=== PATIENT | female | born 1945 | race Two or more races ===

== ENCOUNTER 2020-08-11 12:09 | Emergency (ER) | payer MEDICARE, MEDICAID, SELFPAY ==
--- NOTE | 2020-08-11 | CT_ITS ---
EXAMINATION: CT ABDOMEN AND PELVIS WITHOUT CONTRAST CLINICAL INFORMATION: Right-sided flank pain. History of kidney stones. COMPARISON: October 23, 2019 TECHNIQUE: Multidetector volumetric imaging was performed from the superior aspect of the liver through the pubic symphysis. Sagittal and coronal reformatted images were obtained on the technologist's workstation. This CT examination was performed using dose optimization techniques as appropriate, variously including the following: *Automated exposure control *Adjustment of mA and/or kV according to patient size (this includes techniques or standardized protocols for targeted exams where dose is matched to indication/reason for exam; i.e. extremities or head) *Use of iterative reconstruction technique DLP: 833 mGy-cm FINDINGS: LUNG BASES: The visualized lung bases are unremarkable. No pleural or pericardial effusion. Small amount of coronary artery calcification present. LIVER, GALLBLADDER, AND BILIARY TREE: The liver is normal in size, shape, and attenuation. No focal hepatic lesion or biliary ductal dilatation is present. The gallbladder is unremarkable with no evidence of radiopaque gallstones, gallbladder wall thickening, or obvious pericholecystic inflammatory changes. PANCREAS: Unremarkable. SPLEEN: Unremarkable. ADRENAL GLANDS: Unremarkable. KIDNEYS AND URETERS: Left kidney: There is a large 9.4 x 8.7 cm cyst containing some calcification within its rim and septi. There is also a 3.8 x 3.2 cm cyst about the anterior medial aspect of the kidney. No hydronephrosis is evident. No definite solid mass is seen. There is cortical atrophy present most prominent in the lower pole where there are 2 regions of calcification, one measuring 1.1 x 0.8 cm in size and a second measuring 7 mm in largest dimension. Ureter appears unremarkable. Right kidney: No abnormal mass, calculi, or hydronephrosis noted. Ureter appears unremarkable. BLADDER: Unremarkable. GASTROINTESTINAL TRACT: No dilated loops of large or small bowel are evident. No free air or free fluid is seen. No pericolonic inflammatory change. The appendix is visualized and appears unremarkable. There is a duodenal diverticulum present. ABDOMINAL WALL: No significant hernia is appreciated. LYMPH NODES: No lymphadenopathy appreciated. VASCULAR: Mild aortoiliac calcified plaque present. No abdominal aortic aneurysm. PELVIC VISCERA: Unremarkable. OSSEOUS STRUCTURES: No suspicious destructive bony lesions identified. There is multilevel degenerative disc disease present as well as facet arthropathy L4-S1 bilaterally. IMPRESSION: No evidence of obstructive uropathy. Left renal nonobstructing calculi. Left renal cysts one of which has wall calcification. This has the appearance of a Bosniak 2F cyst.
[2020-08-11 12:18] VITALS: BP 159/77; PULSE 55; RESP 16; TEMP 36.8; O2SAT 96; BMI 40.2
--- NOTE | 2020-08-11 12:21 | ED.ABDPAIN ---
HPI - Abdominal Pain General Chief Complaint: Abdominal Pain <CLAIRE Oreilly - Last Filed: 08/11/20 18:17> Stated Complaint: ABD PAIN <CLAIRE Oreilly - Last Filed: 08/11/20 18:17> Time Seen by Provider: 08/11/20 12:20 <CLAIRE Oreilly - Last Filed: 08/11/20 18:17> Source: patient and EMS <CLAIRE Oreilly - Last Filed: 08/11/20 18:17> Mode of arrival: EMS <CLAIRE Oreilly - Last Filed: 08/11/20 18:17> Limitations: language barrier <CLAIRE Oreilly - Last Filed: 08/11/20 18:17> History of Present Illness HPI narrative: 75 y/o female with history of ETOH abuse, pyelonephritis with infected kidney stone requiring lithotripsy, atrial fibrillation, asthma, gastritis, depression, hx falls, arthritis presenting with 5 days of right sided flank pain that extends into her entire abdomen. <CLAIRE Oreilly - Last Filed: 08/11/20 18:17> MD elicited complaint: abdominal pain and flank pain <CLAIRE Oreilly - Last Filed: 08/11/20 18:17> Pertinent past history: gastritis, kidney stones and past UTI <CLAIRE Oreilly - Last Filed: 08/11/20 18:17> Onset (ago): day(s) (5) <CLAIRE Oreilly - Last Filed: 08/11/20 18:17> Pain Consistency: constant <CLAIRE Oreilly - Last Filed: 08/11/20 18:17> Location: diffuse <CLAIRE Oreilly - Last Filed: 08/11/20 18:17> Severity: severe <CLAIRE Oreilly - Last Filed: 08/11/20 18:17> Quality: stabbing <CLAIRE Oreilly - Last Filed: 08/11/20 18:17> Radiation: R flank and back <CLAIRE Oreilly - Last Filed: 08/11/20 18:17> Migration to: RUQ and epigastric <CLAIRE Oreilly - Last Filed: 08/11/20 18:17> Exacerbating factors: nothing <CLAIRE Oreilly Last Filed: 08/11/20 18:17> Relieving factors: nothing <CLAIRE Oreilly Last Filed: 08/11/20 18:17> Associated symptoms: nausea and dysuria <CLAIRE Oreilly Last Filed: 08/11/20 18:17> Related Data Home Medications: Previous Rx's Medication Instructions Recorded cyclobenzaprine 5 mg PO BID PRN #14 tab 08/11/20 cyclobenzaprine 5 mg PO TID PRN #14 tab 08/11/20 lidocaine [Lidoderm] 1 patch TOPICAL DAILY #1 ea 08/11/20 lidocaine [Lidoderm] 1 patch TOPICAL DAILY #1 ea 08/11/20 sucralfate [Carafate] 1 g PO BID #30 tab 08/11/20 sucralfate [Carafate] 1 g PO BID #30 tab 08/11/20 <CLAIRE Oreilly Last Filed: 08/11/20 18:17> Allergies/Adverse Reactions: Allergies Allergy/AdvReac Type Severity Reaction Status Date / Time montelukast [Singulair] Allergy Unknown itching/marysol Verified 04/09/20 00:00 h From Singulair Allergy Intermediate RASH Uncoded 07/26/20 14:38 <CLAIRE Oreilly - Last Filed: 08/11/20 18:17> Review of Systems Review of Systems Constitutional: No Fever, No Chills ENT/Mouth: No sore throat, No Rhinorrhea, No Swallowing Difficulty Eyes: No Eye Pain, No Swelling, No Redness Cardiovascular: No Chest Pain, positive intermittent SOB chronic, No Orthopnea, Positive Edema which is chronic Respiratory: No Cough, No Sputum, No Wheezing, positive dyspnea Gastrointestinal: No Vomiting, No Diarrhea, positive abdominal Pain, No Hematochezia, No Melena Genitourinary: positive Dysuria, No Urinary Frequency, No Hematuria, positive pelvic pain Musculoskeletal: No joint pain, positive back pain Skin: No Skin Lesions, No rash Neuro: No Weakness, No Numbness, No Dizziness, No Headache Psych: No Anxiety/Panic, No Depression Heme/Lymph: No Bruising, No Lymphadenopathy Endocrine: No Polyuria, No Polydipsia All other 10 point ROS are negative. <CLAIRE Oreilly - Last Filed: 08/11/20 18:17> Physical Exam Vital Signs and I&O and Narrative: Vital Signs and I&O: Vital Signs Temp 98.2 F 08/11/20 16:57 Pulse 81 08/11/20 16:57 Resp 20 08/11/20 16:57 BP 153/66 H 08/11/20 16:57 Pulse Ox 99 08/11/20 16:57 Intake & Output 08/11/20 08/11/20 08/12/20 06:59 18:59 06:59 Intake Total 1000 / 1000 Balance 1000 / 1000 Weight 99.798 kg Intake: Intake, IV Amoun t 1000 / 1000 0.9 % Sodium C hloride 1,000 ml 1000 / 1000 @ 999 mls/hr I VCONT .Q1H1M GONZALEZ Rx#:[id number] Body Mass Index 40.2 Appearance: Alert. Oriented X3. No acute distress. Eyes: Pupils equal, round and reactive to light. ENT: Pharynx normal. Neck: Normal inspection. Neck supple. CVS: bradycardic. Pulses normal. Respiratory: No respiratory distress. Breath sounds normal. Abdomen: obese, soft, intermittent tenderness diffusely, right CVA tenderness Skin: Skin warm and dry. Normal skin color. Normal skin turgor. Extremities: 1+ lower extremity edema, diffusely tender, no lesions Neuro: Oriented X 3. No motor deficit. No sensory deficit. <CLAIRE Oreilly - Last Filed: 08/11/20 18:17> Vital Signs and I&O: Vital Signs Temp 98.2 F 08/11/20 16:57 Pulse 81 08/11/20 16:57 Resp 20 08/11/20 16:57 BP 153/66 H 08/11/20 16:57 Pulse Ox 99 08/11/20 16:57 Intake & Output 08/11/20 08/11/20 08/12/20 06:59 18:59 06:59 Intake Total 1000 / 1000 Balance 1000 / 1000 Weight 99.798 kg Intake: Intake, IV Amoun t 1000 / 1000 0.9 % Sodium C hloride 1,000 ml 1000 / 1000 @ 999 mls/hr I VCONT .Q1H1M GONZALEZ Rx#:[id number] Body Mass Index 40.2 <Angel Desir DO - Last Filed: 08/11/20 22:19> Course Course Hospital Course: 75 y/o with multiple comorbidities presenting with multiple complaints - concern for possible renal colic, UTI, gastritis, cholecystitis, pancreatitis. Labs and CT scan pending. Dispo pending results and improvement. <CLAIRE Oreilly - Last Filed: 08/11/20 18:17> Reevaluation(s) Reevaluation #1: CT did not show any cause of her right flank and abdominal pain. She was given GI cocktail with some improvement in her discomfort. she has a history of gastritis. her flank pain is reproducible and likely muscoloskeletal in nature. she is tolerating PO and appears well. she is stable for discharge. <CLAIRE Oreilly - Last Filed: 08/11/20 18:17> MDM - Abdominal Pain Differential Diagnosis Differential diagnosis: Likely abdominal pain, calculus of kidney, constipation, diverticulitis, gastroenteritis, gastritis, pancreatitis, peptic ulcer disease, renal colic and small bowel obstruction <CLAIRE Oreilly - Last Filed: 08/11/20 18:17> Medical Records Attestation: I reviewed the patient's medical records. <CLAIRE Oreilly - Last Filed: 08/11/20 18:17> Lab Data Attestation: I reviewed the patient's lab results. <CLAIRE Oreilly - Last Filed: 08/11/20 18:17> Result diagrams: : 08/11/20 14:24 08/11/20 14:24 <CLAIRE Oreilly - Last Filed: 08/11/20 18:17> Labs: Lab Results 08/11/20 08/11/20 08/11/20 Range/Units 14:24 14:24 15:44 WBC 8.0 (4.8-10.8) X10*3/uL RBC 4.15 L (4.20-5.50) X10*6/uL Hgb 12.1 (12.0-16.0) g/dl Hct 37.6 (37-47) % MCV 90.6 (80-98) fL MCH 29.2 (27.0-33.0) pg MCHC 32.2 (31.0-35.0) g/dl RDW 12.6 (11.0-16.0) % Plt Count 288 (160-400) X10*3/uL MPV 10.5 (9.4-12.3) fL Immature Gran % (Auto) 0.2 (0.0-0.4) % Neut % (Auto) 72.5 (45-73) % Lymph % (Auto) 15.6 L (20-40) % [place] % (Auto) 7.5 (2-11) % Eos % (Auto) 3.6 (0-4) % Baso % (Auto) 0.6 (0-2) % Neut # (Auto) 5.8 (2.0-8.3) X10*3/uL Lymph # (Auto) 1.3 (1.2-4.9) X10*3/uL [place] # (Auto) 0.6 (0.1-1.2) X10*3/uL Eos # (Auto) 0.3 (0.0-0.4) X10*3/uL Baso # (Auto) 0.1 (0.0-0.2) X10*3/uL Abs Immat Gran (auto) 0.02 (0.00-0.03) X10*3/uL Absolute Nucleated RBC 0.000 (0.0-0.012) X10*3/uL Nucleated RBC % (auto) 0.0 (0.0-0.2) /100WBC Sodium 141 (135-145) mmol/L Potassium 4.1 (3.3-5.1) mmol/l Chloride 102 (96-108) mmol/L Carbon Dioxide 28 (22-29) mmol/L Anion Gap 15 (12-20) BUN 26 H (9-16) mg/dL Creatinine 0.94 (0.5-1.4) mg/dL Estim Creat Clear Calc 56.2 Estimated GFR 58 Random Glucose 166 H (60-115) mg/dL Calcium 9.7 (8.4-10.2) mg/dL Total Bilirubin 0.5 (0.0-1.0) mg/dL Direct Bilirubin 0.2 (0.0-0.5) mg/dL AST 14 (5-31) U/L ALT 14 (0-31) U/L Alkaline Phosphatase 133 H (39-117) U/L Total Protein 7.3 (6.5-8.0) g/dL Albumin 4.4 (3.5-5.0) g/dL Lipase 25 (8-78) U/L Urine Color YELLOW Urine Appearance CLEAR Urine pH 7.0 (5.0-8.0) Ur Specific [place] 1.010 (1.005-1.025) Urine Protein NEG (NEG-TRACE) MG/DL Urine Glucose (UA) NEG (NEG) MG/DL Urine Ketones NEG (NEG) MG/DL Urine Blood 1+ H (NEG) Urine Nitrite NEG (NEG) Ur Leukocyte Esterase TRACE H (NEG) Urine RBC 1-4 (0) /HPF Urine WBC 5-9 H (0-4) /HPF Ur Squamous Epith Cells 4+ /LPF Urine Bacteria NONE /LPF <CLAIRE Oreilly - Last Filed: 08/11/20 18:17> Lab Results 08/11/20 08/11/20 08/11/20 Range/Units 14:24 14:24 15:44 WBC 8.0 (4.8-10.8) X10*3/uL RBC 4.15 L (4.20-5.50) X10*6/uL Hgb 12.1 (12.0-16.0) g/dl Hct 37.6 (37-47) % MCV 90.6 (80-98) fL MCH 29.2 (27.0-33.0) pg MCHC 32.2 (31.0-35.0) g/dl RDW 12.6 (11.0-16.0) % Plt Count 288 (160-400) X10*3/uL MPV 10.5 (9.4-12.3) fL Immature Gran % (Auto) 0.2 (0.0-0.4) % Neut % (Auto) 72.5 (45-73) % Lymph % (Auto) 15.6 L (20-40) % [place] % (Auto) 7.5 (2-11) % Eos % (Auto) 3.6 (0-4) % Baso % (Auto) 0.6 (0-2) % Neut # (Auto) 5.8 (2.0-8.3) X10*3/uL Lymph # (Auto) 1.3 (1.2-4.9) X10*3/uL [place] # (Auto) 0.6 (0.1-1.2) X10*3/uL Eos # (Auto) 0.3 (0.0-0.4) X10*3/uL Baso # (Auto) 0.1 (0.0-0.2) X10*3/uL Abs Immat Gran (auto) 0.02 (0.00-0.03) X10*3/uL Absolute Nucleated RBC 0.000 (0.0-0.012) X10*3/uL Nucleated RBC % (auto) 0.0 (0.0-0.2) /100WBC Sodium 141 (135-145) mmol/L Potassium 4.1 (3.3-5.1) mmol/l Chloride 102 (96-108) mmol/L Carbon Dioxide 28 (22-29) mmol/L Anion Gap 15 (12-20) BUN 26 H (9-16) mg/dL Creatinine 0.94 (0.5-1.4) mg/dL Estim Creat Clear Calc 56.2 Estimated GFR 58 Random Glucose 166 H (60-115) mg/dL Calcium 9.7 (8.4-10.2) mg/dL Total Bilirubin 0.5 (0.0-1.0) mg/dL Direct Bilirubin 0.2 (0.0-0.5) mg/dL AST 14 (5-31) U/L ALT 14 (0-31) U/L Alkaline Phosphatase 133 H (39-117) U/L Total Protein 7.3 (6.5-8.0) g/dL Albumin 4.4 (3.5-5.0) g/dL Lipase 25 (8-78) U/L Urine Color YELLOW Urine Appearance CLEAR Urine pH 7.0 (5.0-8.0) Ur Specific [place] 1.010 (1.005-1.025) Urine Protein NEG (NEG-TRACE) MG/DL Urine Glucose (UA) NEG (NEG) MG/DL Urine Ketones NEG (NEG) MG/DL Urine Blood 1+ H (NEG) Urine Nitrite NEG (NEG) Ur Leukocyte Esterase TRACE H (NEG) Urine RBC 1-4 (0) /HPF Urine WBC 5-9 H (0-4) /HPF Ur Squamous Epith Cells 4+ /LPF Urine Bacteria NONE /LPF <Angel Desir DO - Last Filed: 08/11/20 22:19> Imaging Data CT scan - abdomen: Attestation: I personally reviewed and interpreted this imaging study as follows: <CLAIRE Oreilly - Last Filed: 08/11/20 18:17> Radiologist's impression: No evidence of obstructive uropathy. Left renal non-obstructing calculi. Left renal cysts one of which has wall calcification. This has the appearance of a Bosniak 2F cyst. <CLAIRE Oreilly - Last Filed: 08/11/20 18:17> Discharge Plan Discharge Clinical Impression: Gastritis Qualifiers: Gastritis type: unspecified gastritis Chronicity: unspecified Gastritis bleeding: without bleeding Qualified Code(s): K29.70 - Gastritis, unspecified, without bleeding Thoracic back pain Qualifiers: Chronicity: acute Back pain laterality: right Qualified Code(s): M54.6 - Pain in thoracic spine <CLAIRE Oreilly Last Filed: 08/11/20 18:17> Patient Disposition: Home, Self-Care <CLAIRE Oreilly Last Filed: 08/11/20 18:17> Instructions: Gastritis (ED), Diet for Stomach Ulcers and Gastritis (ED), Back Pain (ED) <CLAIRE Oreilly - Last Filed: 08/11/20 18:17> Additional Instructions: No heavy liftin, twisting or bending. Take over the counter Tylenol and Motrin for discomfort/pain. Use ice and/or heat to your back several times per day. If your symptoms dont improve or if you feel worse, call 911 or come back to the ER for further evaluation. Follow up with your Primary Care Doctor this week. <CLAIRE Oreilly Last Filed: 08/11/20 18:17> Prescriptions: New sucralfate [Carafate] 1 gram tablet 1 g PO BID Qty: 30 RF: 0 cyclobenzaprine 5 mg tablet 5 mg PO BID PRN (Reason: muscle spasm) Qty: 14 RF: 0 lidocaine [Lidoderm] 5 % adhesive patch,medicated 1 patch topical DAILY Qty: 1 RF: 0 lidocaine [Lidoderm] 5 % adhesive patch,medicated 1 patch topical DAILY Qty: 1 RF: 0 cyclobenzaprine 5 mg tablet 5 mg PO TID PRN (Reason: muscle spasm) Qty: 14 RF: 0 sucralfate [Carafate] 1 gram tablet 1 g PO BID Qty: 30 RF: 0 <CLAIRE Oreilly - Last Filed: 08/11/20 18:17> Referrals: Omar Almanzar MD [Physician] - 2 days <CLAIRE Oreilly - Last Filed: 08/11/20 18:17> Interventions: ED Discharge Assessment Last Done: 08/11/20 18:29 <CLAIRE Oreilly - Last Filed: 08/11/20 18:17> Discharge Date/Time: 08/11/20 18:31 <CLAIRE Oreilly - Last Filed: 08/11/20 18:17> [facility] Past Medical History Attestation statement: The following information was validated with the patient. <CLAIRE Oreilly - Last Filed: 08/11/20 18:17> Medical History: Medical History (Updated 08/11/20 @ 17:41 by CLAIRE Oreilly) Alcohol abuse Arthritis Asthma Atrial fibrillation Diabetes Gout Hypertension Hypertension Knee arthropathy Nephrolithiasis Osteoarthritis <CLAIRE Oreilly - Last Filed: 08/11/20 18:17> Surgical History: Surgical History (Updated 08/11/20 @ 13:01 by CLAIRE Oreilly) History of total knee arthroplasty <CLAIRE Oreilly - Last Filed: 08/11/20 18:17> Social History Social History: Social History Advance Directives: No Advance Directives Information Provided: No <CLAIRE Oreilly - Last Filed: 08/11/20 18:17>
[2020-08-11 14:34] LABS: MANUAL DIFF FLAG NO
[2020-08-11 14:36] LABS: Basophils Absolute Auto 0.1 X10*3/uL (0.0-0.2); Basophils Percent Auto 0.6 % (0-2); Eosinophils Absolute Auto 0.3 X10*3/uL (0.0-0.4); Eosinophils Percent Auto 3.6 % (0-4); Hematocrit 37.6 % (37-47); Hemoglobin 12.1 g/dl (12.0-16.0); Imm Gran Abs Auto 0.02 X10*3/uL (0.00-0.03); Imm Gran Pct Auto 0.2 % (0.0-0.4); Lymphocytes Absolute Auto 1.3 X10*3/uL (1.2-4.9); Lymphocytes Percent Auto 15.6 % (20-40); Mean Corpuscular HGB Conc 32.2 g/dl (31.0-35.0); Mean Corpuscular Hemoglobin 29.2 pg (27.0-33.0); Mean Corpuscular Volume 90.6 fL (80-98); Mean Platelet Volume 10.5 fL (9.4-12.3); Monocytes Absolute Auto 0.6 X10*3/uL (0.1-1.2); Monocytes Percent Auto 7.5 % (2-11); Neutrophils Absolute Auto 5.8 X10*3/uL (2.0-8.3); Neutrophils Percent Auto 72.5 % (45-73); Platelet Count 288 X10*3/uL (160-400); Red Blood Count 4.15 X10*6/uL (4.20-5.50); Red Cell Distribution Width 12.6 % (11.0-16.0)
[2020-08-11] MEDS: 0.9 % Sodium Chloride 1,000 ML 999 ML IVCONT (14:41)
[2020-08-11 14:57] LABS: Alanine Aminotransferase 14 U/L (0-31); Albumin Level 4.4 g/dL (3.5-5.0); Anion Gap 15 (12-20); Aspartate Amino Transferase 14 U/L (5-31); Bilirubin Direct 0.2 mg/dL (0.0-0.5); Bilirubin Total 0.5 mg/dL (0.0-1.0); Blood Urea Nitrogen 26 mg/dL (9-16); Calcium 9.7 mg/dL (8.4-10.2); Carbon Dioxide 28 mmol/L (22-29); Chloride 102 mmol/L (96-108); Creatinine Clr Calc Pharmacy 56.2; Estimated Glomerular Filt Rate 58; Glucose Random 166 mg/dL (60-115); Lipase 25 U/L (8-78); Potassium 4.1 mmol/l (3.3-5.1); Sodium 141 mmol/L (135-145); Total Protein 7.3 g/dL (6.5-8.0)
[2020-08-11 14:58] LABS: Alkaline Phosphatase 133 U/L (39-117)
--- NOTE | 2020-08-11 15:33 | PC.NURSE ---
pt ambulating to and from bathroom using assistive device w slow steady gait. providing ua spec.
[2020-08-11 16:36] LABS: Glucose Urine UA NEG (NEG); Leukocyte Esterase Urine TRACE (NEG); Nitrite Urine NEG (NEG); Urine Blood 1+ (NEG); Urine Ketones NEG (NEG); Urine Protein NEG (NEG-TRACE)
--- NOTE | 2020-08-11 16:37 | PC.NURSE ---
PT C/O PAIN IN R ABD ATT. PROVIDER AWARE.
[2020-08-11 16:38] LABS: Appearance Urine CLEAR; Color Urine YELLOW
[2020-08-11 16:48] LABS: Squamous Epithelial Cell Urine 4+ /LPF
[2020-08-11 16:57] VITALS: BP 153/66; PULSE 81; RESP 20; TEMP 36.8; O2SAT 99
[2020-08-11] MEDS: Omeprazole 40 MG CAPSULE.DR PO (17:04)
[2020-08-11] MEDS: Magnesium Hydrox/Alum Hydrox 30 ML ORAL.SUSP PO (17:04)
[2020-08-11] MEDS: Lidocaine HCl Viscous 2 % 15 ML SOLUTION MUCOUS MEM (17:04)
[2020-08-11] MEDS: Acetaminophen 325 MG TABLET 650 MG PO (17:04)
--- NOTE | 2020-08-11 17:49 | PC.NURSE ---
PT STS FEELING BETTER FOLLOWING MEDS, PLAN FOR DISCHARGE
== END 2020-08-11 18:31 | disposition home or self-care (01) ==
PROVIDERS: Physician Assistant; Emergency Provider Emergency Medicine; PCP Internal Medicine Geriatric Medicine
DX: K29.70 Gastritis, unspecified, without bleeding (principal); M54.6 Pain in thoracic spine; I48.91 Unspecified atrial fibrillation; F10.10 Alcohol abuse, uncomplicated
CPT/HCPCS: 36415; 74176; 80048; 80076; 81001; 83690; 85025; 87086; 96360; 99283; 99284

== ENCOUNTER 2020-11-07 12:04 | Emergency (ER) | payer MEDICARE, MEDICAID, SELFPAY ==
[2020-11-07 12:32] VITALS: BP 138/63; PULSE 65; RESP 18; TEMP 36.1; O2SAT 97; BMI 42.2
--- NOTE | 2020-11-07 13:29 | ED_ITS ---
HPI - Skin/Abscess/Foreign Bdy General Chief complaint: Skin/Abscess/Foreign Body Stated complaint: RASH STOMACH AREA Time Seen by Provider: 11/07/20 13:23 History of Present Illness HPI narrative: Patient is a 75-year-old female presents today with having rash underneath her breast. Patient claims is very itchy is very moist. It has been getting worse over the last week to 2 weeks. Cannot take it no more. No coughing or congestion or upper respiratory symptoms. No fever no chills no chest pain or shortness of breath no diaphoresis. The itchiness is made worse with scratching. Related Data Previous Rx's Medication Instructions Recorded cyclobenzaprine 5 mg PO BID PRN #14 tab 08/11/20 cyclobenzaprine 5 mg PO TID PRN #14 tab 08/11/20 lidocaine [Lidoderm] 1 patch TOPICAL DAILY #1 ea 08/11/20 lidocaine [Lidoderm] 1 patch TOPICAL DAILY #1 ea 08/11/20 sucralfate [Carafate] 1 g PO BID #30 tab 08/11/20 sucralfate [Carafate] 1 g PO BID #30 tab 08/11/20 clotrimazole [Lotrimin AF 1 appl TOPICAL BID 14 Days g 11/07/20 (clotrimazole)] Allergies Allergy/AdvReac Type Severity Reaction Status Date / Time montelukast [Singulair] Allergy Unknown itching/marysol Verified 04/09/20 00:00 h From Singulair Allergy Intermediate RASH Uncoded 07/26/20 14:38 Review of Systems Review of Systems: Constitutional: No Weight loss, No Fever, No Chills, No Night Sweats, No Fatigue, No Malaise ENT/Mouth: No Hearing loss, No Ear Pain, No Nasal Congestion, No Sinus Pain, No Hoarseness, No sore throat, No Rhinorrhea, No Swallowing Difficulty Eyes: No Eye Pain, No Swelling, No Redness, No Foreign Body, No Discharge, No Vision Changes Cardiovascular: No Chest Pain, No SOB, No Dyspnea on Exertion, No Orthopnea, No Edema, No Palpitations Respiratory: No Cough, No Sputum, No Wheezing, No Smoke Exposure, No Dyspnea Gastrointestinal: No Nausea, No Vomiting, No Diarrhea, No Constipation, No abdominal Pain, No Hematochezia, No Melena Genitourinary: no irregular bleeding, No Dysuria, No Urinary Frequency, No Hematuria, No Urinary Incontinence, No Urgency, No Flank Pain, No Urinary Flow Changes, No Hesitancy Musculoskeletal: No joint pain, No Myalgias, No Joint Swelling Skin: Positive lesion underneath bilateral breasts Neuro: No Weakness, No Numbness, No Paresthesias, No Loss of Consciousness, No Dizziness, No Headache Psych: No Anxiety/Panic, No Depression, No SI/HI/AH/VH, No Social Issues, Heme/Lymph: No Bruising, No Bleeding,No Lymphadenopathy Endocrine: No Polyuria, No Polydipsia, No Temperature Intolerance [facility] Past Medical History Attestation statement: The following information was validated with the patient. Medical History Alcohol abuse Arthritis Asthma Atrial fibrillation Diabetes Gout Hypertension Hypertension Knee arthropathy Nephrolithiasis Osteoarthritis Surgical History History of total knee arthroplasty Physical Exam Vital Signs: Vital Signs: Last Vital Signs Temp 97.0 F 11/07/20 12:32 Pulse 65 11/07/20 12:32 Resp 18 11/07/20 12:32 BP 138/63 11/07/20 12:32 Pulse Ox 97 11/07/20 12:32 Body Mass Index 42.2 Appearance: Alert. Oriented X3. No acute distress. Eyes: Pupils equal, round and reactive to light. ENT: Pharynx normal. Neck: Normal inspection. Neck supple. No lymph nodes noted. No crepitus CVS: Normal heart rate and rhythm. Pulses normal. Normal S1 and S2 Respiratory: No respiratory distress. Breath sounds normal. No Wheezing. No rales Abdomen: Soft and nontender. No rigidity. No distention. good BS x4 Skin: Wet appearing lesion underneath bilateral breasts in the skin folds. Extremities: No lower extremity edema. Neurovascular intact to all extremities. No Lacerations. No Rash Neuro: Oriented X 3. No motor deficit. No sensory deficit. Moving all extermities. No slurred speech MDM - Skin/Abscess/Foreign Bdy MDM Narrative Medical decision making narrative: Symptoms consistent with having a yeast infection underneath her breast. Will have patient keep the area dry. Will use Lotrimin. Close follow-up with primary physician on an outpatient basis. Medical Records Attestation: I reviewed the patient's medical records. Discharge Plan Discharge Clinical Impression: Skin yeast infection Patient Disposition: Home, Self-Care Instructions: Skin Yeast Infection (ED) Additional Instructions: keep area dry Prescriptions: New clotrimazole [Lotrimin AF (clotrimazole)] 1 % cream 1 appl topical BID 14 Days RF: 0 No Action sucralfate [Carafate] 1 gram tablet 1 g PO BID Qty: 30 RF: 0 cyclobenzaprine 5 mg tablet 5 mg PO BID PRN (Reason: muscle spasm) Qty: 14 RF: 0 lidocaine [Lidoderm] 5 % adhesive patch,medicated 1 patch topical DAILY Qty: 1 RF: 0 lidocaine [Lidoderm] 5 % adhesive patch,medicated 1 patch topical DAILY Qty: 1 RF: 0 cyclobenzaprine 5 mg tablet 5 mg PO TID PRN (Reason: muscle spasm) Qty: 14 RF: 0 sucralfate [Carafate] 1 gram tablet 1 g PO BID Qty: 30 RF: 0 Referrals: Jane Velazquez NP [Primary Care Provider] - 2 days
== END 2020-11-07 13:51 | disposition home or self-care (01) ==
PROVIDERS: Emergency Provider Emergency Medicine Emergency Medical Services; PCP Nurse Practitioner Family
DX: B37.2 Candidiasis of skin and nail (principal); E11.9 Type 2 diabetes mellitus without complications; I10 Essential (primary) hypertension; I48.91 Unspecified atrial fibrillation; F10.10 Alcohol abuse, uncomplicated; Z79.899 Other long term (current) drug therapy
CPT/HCPCS: 99283

== ENCOUNTER 2020-11-19 11:35 | Outpatient (REF) | payer MEDICARE, MEDICAID, SELFPAY ==
--- NOTE | 2020-11-19 11:40 | MM_ITS ---
EXAMINATION: MM SCREENING DIGITAL BREAST TOMOSYNTHESIS, BILATERAL CLINICAL INFORMATION: Screening. Asymptomatic. The lifetime risk of breast cancer based on the Tyrer-Cuzick Model is 2%. COMPARISON: Mammography: 08/25/2019, 08/02/2018, 07/23/2017, 07/21/2016 TECHNIQUE: Digital breast tomosynthesis is performed in both the craniocaudal and mediolateral oblique views along with computer-aided detection (CAD). Synthesized 2D images are generated from the tomosynthesis. FINDINGS: There are scattered areas of fibroglandular density (ACR BI-RADS breast composition Category b). There are no significant masses, abnormal calcifications, or other abnormalities. Parenchymal pattern is similar to prior exams. There is chronic mild bilateral nipple retraction. No significant changes. MM/MM tomosynthesis screening BI IMPRESSION: No significant changes from prior exams. ASSESSMENT: BI-RADS 2: Benign RECOMMENDATION: Routine annual mammography screening. This patient's information was entered into a reminder system with a target due date for their next mammogram.
== END 2020-11-19 11:36 | disposition home or self-care (01) ==
LOC: HO.MAMMO 11:35
PROVIDERS: PCP Internal Medicine Geriatric Medicine; Visit Provider Internal Medicine Geriatric Medicine
DX: Z12.31 Encounter for screening mammogram for malignant neoplasm of breast (principal)
CPT/HCPCS: 77063; 77067

== ENCOUNTER 2020-12-24 05:23 | Emergency (ER) | payer MEDICARE, MEDICAID, SELFPAY ==
--- NOTE | ~2020-12-24 | XR_ITS ---
EXAMINATION: CHEST 1 VIEW CLINICAL INFORMATION: Dyspnea. COMPARISON: 01/24/2020. TECHNIQUE: An AP view of the chest is provided. FINDINGS: The cardiac silhouette is stable. The mediastinal and hilar contours are unremarkable. There are neither pleural effusions nor pneumothoraces. There are no consolidations. The osseous structures are stable. XR/XR chest 1V IMPRESSION: No evidence for acute disease.
[2020-12-24 06:18] VITALS: BP 163/62; PULSE 102; RESP 20; TEMP 37; O2SAT 96; BMI 37.5
--- NOTE | 2020-12-24 06:37 | ECG_ITS ---
Test Reason : SOB Blood Pressure : / mmHG Vent. Rate : 081 BPM Atrial Rate : 258 BPM P-R Int : 000 ms QRS Dur : 086 ms QT Int : 394 ms P-R-T Axes : 000 029 093 degrees QTc Int : 457 ms Atrial fibrillation Nonspecific ST and T wave abnormality Abnormal ECG When compared with ECG of 23-OCT-2019 16:26, No significant change was found Referred By: Adrianna Maciel Electronically Signed By:Colby Cadena
--- NOTE | 2020-12-24 06:38 | ED.SOB ---
HPI - SOB/Dyspnea General Chief Complaint: Dyspnea Stated Complaint: SOB Time Seen by Provider: 12/24/20 06:05 Source: patient Mode of arrival: ambulatory Limitations: no limitations History of Present Illness HPI Narrative: 75 yo female with asthma and afib on pradaxa reports compliance with her medications unsure if she is on diuretic but notes increased salt all day yesterday she has shortness of breath when walking and laying flat, LE edema, uses 5 pillows at night - no chest pain, no fevers MD elicited complaint: shortness of breath Pertinent past history: asthma Onset (ago): hour(s) (few) Context: other (increased salt) Timing: constant Severity: moderate Exacerbating factors: lying flat and exertion Relieving factors: nothing Known history of: asthma Associated symptoms: denies other symptoms Treatment prior to arrival: none Related Data Previous Rx's Medication Instructions Recorded cyclobenzaprine 5 mg PO BID PRN #14 tab 08/11/20 cyclobenzaprine 5 mg PO TID PRN #14 tab 08/11/20 lidocaine [Lidoderm] 1 patch TOPICAL DAILY #1 ea 08/11/20 lidocaine [Lidoderm] 1 patch TOPICAL DAILY #1 ea 08/11/20 sucralfate [Carafate] 1 g PO BID #30 tab 08/11/20 sucralfate [Carafate] 1 g PO BID #30 tab 08/11/20 clotrimazole [Lotrimin AF 1 appl TOPICAL BID 14 Days g 11/07/20 (clotrimazole)] Allergies Allergy/AdvReac Type Severity Reaction Status Date / Time montelukast [Singulair] Allergy Unknown itching/marysol Verified 04/09/20 00:00 h From Singulair Allergy Intermediate RASH Uncoded 07/26/20 14:38 Review of Systems Review of Systems: Constitutional : No Fever, No Chills ENT/Mouth : No sore throat, No Rhinorrhea, No Swallowing Difficulty Eyes: No Eye Pain, No Swelling, No Redness Cardiovascular : No Chest Pain, positive SOB, No Orthopnea, positive Edema Respiratory : No Cough, No Sputum, No Wheezing, positive dyspnea Gastrointestinal : No Nausea, No Vomiting, No Diarrhea, No abdominal Pain, No Hematochezia, No Melena Genitourinary : No Dysuria, No Urinary Frequency, No Hematuria Musculoskeletal : No joint pain, No Myalgias Skin : No Skin Lesions, No rash Neuro : No Weakness, No Numbness, No Dizziness, No Headache Psych : No Anxiety/Panic, No Depression Heme/Lymph: No Bruising, No Lymphadenopathy Endocrine : No Polyuria, No Polydipsia All other systems reviewed and are negative [facility] Past Medical History Attestation statement: The following information was validated with the patient. Source: old records reviewed Medical History Alcohol abuse Arthritis Asthma Atrial fibrillation COPD (chronic obstructive pulmonary disease) Diabetes Gout Hypertension Hypertension Knee arthropathy Nephrolithiasis Osteoarthritis Surgical History History of total knee arthroplasty Social History Social History Smoking Status: Never smoker Advance Directives: No Advance Directives Information Provided: No Physical Exam Vital Signs: Vital Signs: Last Vital Signs Temp 98.6 F 12/24/20 06:18 Pulse 102 H 12/24/20 06:18 Resp 20 12/24/20 06:18 BP 163/62 H 12/24/20 06:18 Pulse Ox 96 12/24/20 06:18 Body Mass Index 37.5 Appearance: Alert. Oriented X3. No acute distress. Eyes: Pupils equal, round and reactive to light. ENT: Pharynx normal. Neck: Normal inspection. Neck supple. CVS: Normal heart rate and rhythm. Pulses normal. Respiratory: No respiratory distress. Breath sounds normal. Abdomen: Soft and nontender. Skin: Skin warm and dry. Normal skin color. Normal skin turgor. Extremities: pos 2 to 3+ pitting lower extremity edema. No calf ttp Neuro: Oriented X 3. No motor deficit. No sensory deficit. Course Course Course Narrative: IV lasix ordered, no hypoxia, repeat troponin ordered, she is in no resp distress, calling daughter to confirm her medications as I do not see that she is on diuretic at home repeat troponin flat, discussed with the daughter that she does take lasix and has 40mg daily but the patient has not been taking it the last few days - discussed importance of compliance with the medications MDM - SOB/Dyspnea MDM Narrative Medical decision making narrative: 75 yo female with afib on pradaxa, asthma - here with dyspnea x few hours, LE edema with increased salt intake - at this time will need labs, CXR, possible IV diuretics, she is on pradaxa has no chest pain doubt PE, no fevers or chills to suggest pneumonia - dispo per results and findings, she is not wheezing doubt asthma Lab Data Result diagrams: 12/24/20 08:22 12/24/20 08:22 Labs: Lab Results 12/24/20 12/24/20 12/24/20 Range/Units 08:22 08:22 08:22 WBC 6.4 (4.8-10.8) X10*3/uL RBC 4.29 (4.20-5.50) X10*6/uL Hgb 12.1 (12.0-16.0) g/dl Hct 38.5 (37-47) % MCV 89.7 (80-98) fL MCH 28.2 (27.0-33.0) pg MCHC 31.4 (31.0-35.0) g/dl RDW 12.8 (11.0-16.0) % Plt Count 283 (160-400) X10*3/uL MPV 10.6 (9.4-12.3) fL Immature Gran % (Auto) 0.6 H (0.0-0.4) % Neut % (Auto) 72.2 (45-73) % Lymph % (Auto) 16.0 L (20-40) % Crockett % (Auto) 7.7 (2-11) % Eos % (Auto) 2.7 (0-4) % Baso % (Auto) 0.8 (0-2) % Lymph # (Auto) 1.0 L (1.2-4.9) X10*3/uL Crockett # (Auto) 0.5 (0.1-1.2) X10*3/uL Eos # (Auto) 0.2 (0.0-0.4) X10*3/uL Baso # (Auto) 0.1 (0.0-0.2) X10*3/uL Abs Immat Gran (auto) 0.04 H (0.00-0.03) X10*3/uL Absolute Neuts (auto) 4.6 (2.0-8.3) X10*3/uL Absolute Nucleated RBC 0.000 (0.0-0.012) X10*3/uL Nucleated RBC % (auto) 0.0 (0.0-0.2) /100WBC PT (10.8-13.0) SEC INR (0.9-1.1) APTT (24.1-38.0) SEC Sodium 141 (135-145) mmol/L Potassium 4.7 (3.3-5.1) mmol/L Chloride 102 (96-108) mmol/L Carbon Dioxide 27 (22-29) mmol/L Anion Gap 17 (12-20) BUN 25 H (9-16) mg/dL Creatinine 0.93 (0.5-1.4) mg/dL Estim Creat Clear Calc 54.6 Estimated GFR 59 Random Glucose 231 H D (60-115) mg/dL Calcium 9.5 (8.4-10.2) mg/dL Magnesium 2.2 (1.6-2.6) mg/dL Total Bilirubin 0.7 (0.0-1.0) mg/dL Direct Bilirubin 0.2 (0.0-0.5) mg/dL AST 19 (5-31) U/L ALT 17 (0-31) U/L Alkaline Phosphatase 147 H (39-117) U/L Troponin I High Sens (<3.5-17.0) ng/L B-Natriuretic Peptide Cancelled Total Protein 7.6 (6.5-8.0) g/dL Albumin 4.2 (3.5-5.0) g/dL Lipase 26 (8-78) U/L COVID-19 (MARQUISE) (Negative) COVID-19 Clin Com 12/24/20 12/24/20 12/24/20 Range/Units 08:22 08:22 08:22 WBC (4.8-10.8) X10*3/uL RBC (4.20-5.50) X10*6/uL Hgb (12.0-16.0) g/dl Hct (37-47) % MCV (80-98) fL MCH (27.0-33.0) pg MCHC (31.0-35.0) g/dl RDW (11.0-16.0) % Plt Count (160-400) X10*3/uL MPV (9.4-12.3) fL Immature Gran % (Auto) (0.0-0.4) % Neut % (Auto) (45-73) % Lymph % (Auto) (20-40) % Crockett % (Auto) (2-11) % Eos % (Auto) (0-4) % Baso % (Auto) (0-2) % Lymph # (Auto) (1.2-4.9) X10*3/uL Crockett # (Auto) (0.1-1.2) X10*3/uL Eos # (Auto) (0.0-0.4) X10*3/uL Baso # (Auto) (0.0-0.2) X10*3/uL Abs Immat Gran (auto) (0.00-0.03) X10*3/uL Absolute Neuts (auto) (2.0-8.3) X10*3/uL Absolute Nucleated RBC (0.0-0.012) X10*3/uL Nucleated RBC % (auto) (0.0-0.2) /100WBC PT 11.8 (10.8-13.0) SEC INR 1.0 (0.9-1.1) APTT 28.1 (24.1-38.0) SEC Sodium (135-145) mmol/L Potassium (3.3-5.1) mmol/L Chloride (96-108) mmol/L Carbon Dioxide (22-29) mmol/L Anion Gap (12-20) BUN (9-16) mg/dL Creatinine (0.5-1.4) mg/dL Estim Creat Clear Calc Estimated GFR Random Glucose (60-115) mg/dL Calcium (8.4-10.2) mg/dL Magnesium (1.6-2.6) mg/dL Total Bilirubin (0.0-1.0) mg/dL Direct Bilirubin (0.0-0.5) mg/dL AST (5-31) U/L ALT (0-31) U/L Alkaline Phosphatase (39-117) U/L Troponin I High Sens 7.4 (<3.5-17.0) ng/L B-Natriuretic Peptide 171 H Total Protein (6.5-8.0) g/dL Albumin (3.5-5.0) g/dL Lipase (8-78) U/L COVID-19 ([facility]QUISE) Negative (Negative) COVID-19 Clin Com See Note 12/24/20 Range/Units 10:12 WBC (4.8-10.8) X10*3/uL RBC (4.20-5.50) X10*6/uL Hgb (12.0-16.0) g/dl Hct (37-47) % MCV (80-98) fL MCH (27.0-33.0) pg MCHC (31.0-35.0) g/dl RDW (11.0-16.0) % Plt Count (160-400) X10*3/uL MPV (9.4-12.3) fL Immature Gran % (Auto) (0.0-0.4) % Neut % (Auto) (45-73) % Lymph % (Auto) (20-40) % Crockett % (Auto) (2-11) % Eos % (Auto) (0-4) % Baso % (Auto) (0-2) % Lymph # (Auto) (1.2-4.9) X10*3/uL Crockett # (Auto) (0.1-1.2) X10*3/uL Eos # (Auto) (0.0-0.4) X10*3/uL Baso # (Auto) (0.0-0.2) X10*3/uL Abs Immat Gran (auto) (0.00-0.03) X10*3/uL Absolute Neuts (auto) (2.0-8.3) X10*3/uL Absolute Nucleated RBC (0.0-0.012) X10*3/uL Nucleated RBC % (auto) (0.0-0.2) /100WBC PT (10.8-13.0) SEC INR (0.9-1.1) APTT (24.1-38.0) SEC Sodium (135-145) mmol/L Potassium (3.3-5.1) mmol/L Chloride (96-108) mmol/L Carbon Dioxide (22-29) mmol/L Anion Gap (12-20) BUN (9-16) mg/dL Creatinine (0.5-1.4) mg/dL Estim Creat Clear Calc Estimated GFR Random Glucose (60-115) mg/dL Calcium (8.4-10.2) mg/dL Magnesium (1.6-2.6) mg/dL Total Bilirubin (0.0-1.0) mg/dL Direct Bilirubin (0.0-0.5) mg/dL AST (5-31) U/L ALT (0-31) U/L Alkaline Phosphatase (39-117) U/L Troponin I High Sens 7.1 (<3.5-17.0) ng/L B-Natriuretic Peptide Total Protein (6.5-8.0) g/dL Albumin (3.5-5.0) g/dL Lipase (8-78) U/L COVID-19 ([facility]QUISE) (Negative) COVID-19 Clin Com ECG Data Attestation: I personally reviewed and interpreted this ECG as follows: ECG interpretation date: 12/24/20 ECG interpretation time: 07:32 Interpretation: Rate: 81 Rhythm: afib Grundy: normal Normal P waves. Normal CRISTINA. Normal QRS complex. ST T wave : nonspecific, no KATTY qTC: normal prior studies: no acute ischemia The study has been interpreted contemporaneously by me. . Discharge Plan Discharge Clinical Impression: Acute dyspnea, Edema, peripheral Patient Disposition: Home, Self-Care Instructions: Dyspnea (ED), Edema (ED) Additional Instructions: return to ED for any worsening symptoms or concerns TAKE YOUR MEDICATIONS, WATCH YOUR SALT TAKE DOSE OF LASIX AT 5PM TONIGHT Prescriptions: No Action sucralfate [Carafate] 1 gram tablet 1 g PO BID Qty: 30 RF: 0 cyclobenzaprine 5 mg tablet 5 mg PO BID PRN (Reason: muscle spasm) Qty: 14 RF: 0 lidocaine [Lidoderm] 5 % adhesive patch,medicated 1 patch topical DAILY Qty: 1 RF: 0 lidocaine [Lidoderm] 5 % adhesive patch,medicated 1 patch topical DAILY Qty: 1 RF: 0 cyclobenzaprine 5 mg tablet 5 mg PO TID PRN (Reason: muscle spasm) Qty: 14 RF: 0 sucralfate [Carafate] 1 gram tablet 1 g PO BID Qty: 30 RF: 0 clotrimazole [Lotrimin AF (clotrimazole)] 1 % cream 1 appl topical BID 14 Days RF: 0 Referrals: Cristino Mac MD [Primary Care Provider] - 2 days (if not better) Print Language: Vietnamese
[2020-12-24 08:29] LABS: MANUAL DIFF FLAG NO
[2020-12-24 08:35] LABS: Basophils Absolute Auto 0.1 X10*3/uL (0.0-0.2); Basophils Percent Auto 0.8 % (0-2); Eosinophils Absolute Auto 0.2 X10*3/uL (0.0-0.4); Eosinophils Percent Auto 2.7 % (0-4); Hematocrit 38.5 % (37-47); Hemoglobin 12.1 g/dl (12.0-16.0); Imm Gran Abs Auto 0.04 X10*3/uL (0.00-0.03); Imm Gran Pct Auto 0.6 % (0.0-0.4); Mean Corpuscular HGB Conc 31.4 g/dl (31.0-35.0); Mean Corpuscular Hemoglobin 28.2 pg (27.0-33.0); Mean Corpuscular Volume 89.7 fL (80-98); Mean Platelet Volume 10.6 fL (9.4-12.3); Monocytes Absolute Auto 0.5 X10*3/uL (0.1-1.2); Monocytes Percent Auto 7.7 % (2-11); Neutrophils Absolute Auto 4.6 X10*3/uL (2.0-8.3); Neutrophils Percent Auto 72.2 % (45-73); Platelet Count 283 X10*3/uL (160-400); Red Blood Count 4.29 X10*6/uL (4.20-5.50); Red Cell Distribution Width 12.8 % (11.0-16.0); White Blood Count 6.4 X10*3/uL (4.8-10.8)
[2020-12-24 08:56] LABS: COVID-19 Test Negative (Negative); IDNOW Serial# 9DD0AD1C
[2020-12-24 09:00] LABS: Prothrombin Time 11.8 SEC (10.8-13.0)
[2020-12-24 09:02] LABS: Partial Thromboplastin Time 28.1 SEC (24.1-38.0)
[2020-12-24 09:04] LABS: Alanine Aminotransferase 17 U/L (0-31); Albumin Level 4.2 g/dL (3.5-5.0); Alkaline Phosphatase 147 U/L (39-117); Anion Gap 17 (12-20); Aspartate Amino Transferase 19 U/L (5-31); Bilirubin Direct 0.2 mg/dL (0.0-0.5); Bilirubin Total 0.7 mg/dL (0.0-1.0); Blood Urea Nitrogen 25 mg/dL (9-16); Calcium 9.5 mg/dL (8.4-10.2); Carbon Dioxide 27 mmol/L (22-29); Chloride 102 mmol/L (96-108); Creatinine Clr Calc Pharmacy 54.6; Estimated Glomerular Filt Rate 59; Glucose Random 231 mg/dL (60-115); Lipase 26 U/L (8-78); Magnesium 2.2 mg/dL (1.6-2.6); Potassium 4.7 mmol/L (3.3-5.1); Sodium 141 mmol/L (135-145); Total Protein 7.6 g/dL (6.5-8.0)
[2020-12-24 09:09] LABS: B Type Natriuretic Peptide 171 pg/mL (<100); Troponin-I High Sensitivity 7.4 ng/L (<3.5-17.0)
[2020-12-24] MEDS: Furosemide 40 MG/4 ML VIAL IVPUSH (10:07)
[2020-12-24 10:50] LABS: Troponin-I High Sensitivity 7.1 ng/L (<3.5-17.0)
== END 2020-12-24 11:31 | disposition home or self-care (01) ==
PROVIDERS: Emergency Provider Emergency Medicine; PCP Internal Medicine Geriatric Medicine
DX: R06.00 Dyspnea, unspecified (principal); R60.0 Localized edema; T50.1X6A Underdosing of loop [high-ceiling] diuretics, initial encounter; Y92.009 Unspecified place in unspecified non-institutional (private) residence as the place of occurrence of the external cause; Z20.822 Contact with and (suspected) exposure to COVID-19; E11.9 Type 2 diabetes mellitus without complications; I10 Essential (primary) hypertension; J45.909 Unspecified asthma, uncomplicated; I48.91 Unspecified atrial fibrillation; F10.10 Alcohol abuse, uncomplicated; Z79.01 Long term (current) use of anticoagulants
CPT/HCPCS: 36415; 71045; 80048; 80076; 83690; 83735; 83880; 84484; 85025; 85610; 85730; 87635; 93005; 96374; 99283; 99284; J1940

== ENCOUNTER → 2021-01-16 13:07 | Outpatient (BNVA) | payer MEDICARE, MEDICAID, SELFPAY | PROVIDERS: Visit Provider Obstetrics & Gynecology | DX: N81.10 Cystocele, unspecified (principal); N81.6 Rectocele | CPT/HCPCS: 99202 ==

== ENCOUNTER 2021-07-27 17:45 | Emergency (ER) | payer MEDICARE, MEDICAID, SELFPAY ==
--- NOTE | ~2021-07-27 | XR_ITS ---
EXAMINATION: XR TOES, LEFT CLINICAL INFORMATION: Trauma. Pain and swelling. COMPARISON: Previous left foot x-ray June 2016 TECHNIQUE: 3 views of the left toes were obtained. FINDINGS: There is question of a nondisplaced fracture of the lateral side of the middle phalanx of the third toe intra-articular with the PIP joint. No other fracture is seen. Soft tissues are unremarkable. XR/XR toe LT min 2V IMPRESSION: Question nondisplaced fracture of the lateral aspect of the middle phalanx of the second toe intra-articular with the PIP joint.
[2021-07-27 17:47] VITALS: BP 123/72; PULSE 69; RESP 16; TEMP 36.8; O2SAT 98; BMI 33.6
[2021-07-27] MEDS: Acetaminophen 325 MG TABLET 650 MG PO (20:20)
--- NOTE | 2021-07-27 20:28 | ED.EXTPRO ---
HPI - Extremity Problem General Chief complaint: Extremity Problem <CLAIRE Valverde Last Filed: 07/27/21 21:40> Stated complaint: Foot pain <CLAIRE Valverde Last Filed: 07/27/21 21:40> Time Seen by Provider: 07/27/21 20:28 <CLAIRE Valverde Last Filed: 07/27/21 21:40> Source: patient <CLAIRE Valverde Last Filed: 07/27/21 21:40> Mode of arrival: ambulatory <CLAIRE Valverde Last Filed: 07/27/21 21:40> Limitations: no limitations <CLAIRE Valverde Last Filed: 07/27/21 21:40> History of Present Illness HPI Narrative: 76-year-old female who hit her left middle toe against furniture while walking 3 days ago presents for ongoing pain and swelling. Patient did not hit her head, she did not lose consciousness, this was purely a mechanical injury. <CLAIRE Valverde Last Filed: 07/27/21 21:40> Related Data Home medications: Previous Rx's Medication Instructions Recorded cyclobenzaprine 5 mg tablet 5 mg PO BID PRN #14 tab 08/11/20 cyclobenzaprine 5 mg tablet 5 mg PO TID PRN #14 tab 08/11/20 lidocaine 5 % topical patch 1 patch TOPICAL DAILY #1 ea 08/11/20 (Lidoderm) lidocaine 5 % topical patch 1 patch TOPICAL DAILY #1 ea 08/11/20 (Lidoderm) sucralfate 1 gram tablet (Carafate) 1 g PO BID #30 tab 08/11/20 sucralfate 1 gram tablet (Carafate) 1 g PO BID #30 tab 08/11/20 clotrimazole 1 % topical cream 1 appl TOPICAL BID 14 Days g 11/07/20 (Lotrimin AF (clotrimazole)) naproxen 500 mg tablet 500 mg PO BID 10 Days #20 tab 07/27/21 <CLAIRE Valverde Last Filed: 07/27/21 21:40> Allergies/Adverse reactions: Allergies Allergy/AdvReac Type Severity Reaction Status Date / Time montelukast [Singulair] Allergy Unknown itching/marysol Verified 07/27/21 19:56 h From Singulair Allergy Intermediate RASH Uncoded 01/16/21 13:14 <CLAIRE Valverde - Last Filed: 07/27/21 21:40> Review of Systems Review of Systems: Constitutional : No Weight loss, No Fever, No Chills, No Night Sweats,No Fatigue, No Malaise ENT/Mouth : No Hearing loss, No Ear Pain, No Nasal Congestion, NoSinus Pain, No Hoarseness, No sore throat, No Rhinorrhea, NoSwallowing Difficulty Eyes: No Eye Pain, No Swelling, No Redness, No Foreign Body, NoDischarge, No Vision Changes Cardiovascular : No Chest Pain, No SOB, No Dyspnea on Exertion, NoOrthopnea, No Edema, No Palpitations Respiratory : No Cough, No Sputum, No Wheezing, No Smoke Exposure, No Dyspnea Musculoskeletal : left middle toe pain Skin : bruising and swelling left toe Neuro : No Weakness, No Numbness, No Paresthesias, No Loss ofConsciousness, No Dizziness, No Headache <CLAIRE Valverde - Last Filed: 07/27/21 21:40> [facility], [facility] Past Medical History Medical History: Medical History Alcohol abuse Arthritis Asthma Atrial fibrillation COPD (chronic obstructive pulmonary disease) Diabetes Gout Hypertension Hypertension Knee arthropathy Nephrolithiasis Osteoarthritis <CLAIRE Valverde - Last Filed: 07/27/21 21:40> Surgical History: Surgical History History of total knee arthroplasty <CLAIRE Valverde - Last Filed: 07/27/21 21:40> Social History Social History: Social History Advance Directives: No <CLAIRE Valverde Last Filed: 07/27/21 21:40> Physical Exam Vital Signs: Vital Signs: Last Vital Signs Temp 98.2 F 07/27/21 17:47 Pulse 69 07/27/21 17:47 Resp 16 07/27/21 17:47 BP 123/72 07/27/21 17:47 Pulse Ox 98 07/27/21 17:47 Body Mass Index 33.6 <CLAIRE Valverde - Last Filed: 07/27/21 21:40> Vital Signs: Last Vital Signs Temp 98.2 F 07/27/21 17:47 Pulse 69 07/27/21 17:47 Resp 16 07/27/21 17:47 BP 123/72 07/27/21 17:47 Pulse Ox 98 07/27/21 17:47 Body Mass Index 33.6 <Josias Dasilva MD - Last Filed: 07/28/21 02:14> Const: General: cooperative, no acute distress, well developed, alert and awake <CLAIRE Valverde - Last Filed: 07/27/21 21:40> Nutritional Appearance: well nourished <CLAIRE Valverde - Last Filed: 07/27/21 21:40> Orientation/consciousness: patient oriented x3 <CLAIRE Valverde - Last Filed: 07/27/21 21:40> Limitations: no limitations <CLAIRE Valverde Last Filed: 07/27/21 21:40> Eyes: Conjunctivae: conjunctivae normal <CLAIRE Valverde - Last Filed: 07/27/21 21:40> Pupils: Equal, round and reactive pupils present <CLAIRE Valverde - Last Filed: 07/27/21 21:40> EOM: EOMs intact bilaterally <CLAIRE Valverde - Last Filed: 07/27/21 21:40> Neck: Neck: Yes full ROM, Yes no lymphadenopathy and Yes supple <CLAIRE Valverde Last Filed: 07/27/21 21:40> Resp: Effort & Inspection: normal respiratory effort and able to speak in complete sentences <CLAIRE Valverde Last Filed: 07/27/21 21:40> Auscultation: clear to auscultation bilaterally, no crackles, no rales, no rhonchi and no wheezes <CLAIRE Valverde Last Filed: 07/27/21 21:40> Cardio: Rate: regular rate <CLAIRE Valverde - Last Filed: 07/27/21 21:40> Rhythm: regular rhythm <CLAIRE Valverde Last Filed: 07/27/21 21:40> Heart sounds: S1 normal heart sound present and S2 normal heart sound present <CLAIRE Valverde - Last Filed: 07/27/21 21:40> Skin: Other: Bruising and swelling over left middle toe <CLAIRE Valverde Last Filed: 07/27/21 21:40> Neuro: General: patient oriented x3, tone normal and moves all extremities <CLAIRE Valverde Last Filed: 07/27/21 21:40> Cranial nerves: Yes Equal, round and reactive pupils present <CLAIRE Valverde Last Filed: 07/27/21 21:40> Extrem: Left lower extremity: foot Details: tenderness Location: of another digit Location: the 3rd digit, at the PIP joint and along the entire digit <CLAIRE Valverde Last Filed: 07/27/21 21:40> Psych: Appearance: grossly normal <CLAIRE Valverde Last Filed: 07/27/21 21:40> Affect: normal affect <CLAIRE Valverde Last Filed: 07/27/21 21:40> Attitude: cooperative <CLAIRE Valverde Last Filed: 07/27/21 21:40> Thought process: Normal thought process present <CLAIRE Valverde Last Filed: 07/27/21 21:40> Course Course Course Narrative: 76-year-old female with left 3rd toe swelling and pain after hitting it against an object 3 days ago. Patient is able to ambulate. On exam, patient has intact lower extremity pulses, sensation, motor strength, and DTRs. Patient is able to walk. Patient's left middle toe is swollen and bruised. X-ray shows Question nondisplaced fracture of the lateral aspect of the middle phalanx of the second toe intra-articular with the PIP joint. Patient given postop shoe, naproxen, toe was deedee-taped, patient referred to Orthopedic for follow-up. All questions answered, patient verbalized agreement and understanding of the plan. <CLAIRE Valverde Last Filed: 07/27/21 21:40> Discharge Plan Discharge Clinical Impression: Closed fracture of toe <CLAIRE Valevrde Last Filed: 07/27/21 21:40> Patient Disposition: Home, Self-Care <CLAIRE Valverde Last Filed: 07/27/21 21:40> Instructions: Toe Fracture (ED), R.I.C.E. Treatment (ED) <CLAIRE Valverde - Last Filed: 07/27/21 21:40> Additional Instructions: Please rest, ice, and elevate your foot. Please use the postop shoe for walking. You should not flex her foot at the toe joint because you have a broken toe. Please call the number for the orthopedic doctor on Thursday, I have referred you to them, but you should call them as well. I want you to be seen this week. Por favor, descanse, cubra hielo y eleve el pie. Utilice el zapato postoperatorio para caminar. No debe flexionar mendieta pie en la articulaci?n del dedo del pie porque tiene un dedo roto. Llame al n?carol del m?dico ortop?dico el lunes, lo he referido, frandy tambi?n debe llamarlo. Quiero que te vean esta semana. <CLAIRE Valverde - Last Filed: 07/27/21 21:40> Prescriptions: New naproxen 500 mg tablet 500 mg PO BID 10 Days Qty: 20 RF: 0 No Action sucralfate [Carafate] 1 gram tablet 1 g PO BID Qty: 30 RF: 0 cyclobenzaprine 5 mg tablet 5 mg PO BID PRN (Reason: muscle spasm) Qty: 14 RF: 0 lidocaine [Lidoderm] 5 % adhesive patch,medicated 1 patch topical DAILY Qty: 1 RF: 0 lidocaine [Lidoderm] 5 % adhesive patch,medicated 1 patch topical DAILY Qty: 1 RF: 0 cyclobenzaprine 5 mg tablet 5 mg PO TID PRN (Reason: muscle spasm) Qty: 14 RF: 0 sucralfate [Carafate] 1 gram tablet 1 g PO BID Qty: 30 RF: 0 clotrimazole [Lotrimin AF (clotrimazole)] 1 % cream 1 appl topical BID 14 Days RF: 0 <CLAIRE Valverde Last Filed: 07/27/21 21:40> Referrals: Moira Farias MD [Physician] - 2 days (fractured middle toe, intra-articular) <CLAIRE Valverde - Last Filed: 07/27/21 21:40> Interventions: ED Discharge Assessment Last Done: 07/27/21 21:47 <CLAIRE Valverde - Last Filed: 07/27/21 21:40> Discharge Date/Time: 07/27/21 21:48 <CLAIRE Valverde - Last Filed: 07/27/21 21:40> Print Language: Setswana <CLAIRE Valverde - Last Filed: 07/27/21 21:40>
== END 2021-07-27 21:48 | disposition home or self-care (01) ==
PROVIDERS: Emergency Provider Emergency Medicine
DX: S92.402A Displaced unspecified fracture of left great toe, initial encounter for closed fracture (principal); M79.675 Pain in left toe(s); R26.2 Difficulty in walking, not elsewhere classified; Y29.XXXA Contact with blunt object, undetermined intent, initial encounter; Y93.9 Activity, unspecified; Y92.9 Unspecified place or not applicable; Y99.9 Unspecified external cause status
CPT/HCPCS: 73660; 99283

== ENCOUNTER 2021-09-10 10:51 | Emergency (ER) | payer MEDICARE, MEDICAID, SELFPAY ==
--- NOTE | ~2021-09-10 | CT_ITS ---
EXAMINATION: CT ABDOMEN AND PELVIS WITHOUT CONTRAST CLINICAL INFORMATION: Flank pain. Rule out kidney stone. COMPARISON: Previous CT of the abdomen and pelvis most recent August 2020 TECHNIQUE: Multidetector volumetric imaging was performed from the superior aspect of the liver through the pubic symphysis. Sagittal and coronal reformatted images were obtained on the technologist's workstation. This CT examination was performed using dose optimization techniques as appropriate, variously including the following: *Automated exposure control *Adjustment of mA and/or kV according to patient size (this includes techniques or standardized protocols for targeted exams where dose is matched to indication/reason for exam; i.e. extremities or head) *Use of iterative reconstruction technique DLP: 824 mGy-cm FINDINGS: LUNG BASES: The lung bases are clear. There are small bilateral posterior medial diaphragmatic hernias containing fat. LIVER, GALLBLADDER, AND BILIARY TREE: The liver is normal in size, shape, and attenuation. No focal hepatic lesion or biliary ductal dilatation is present. The gallbladder is unremarkable with no evidence of radiopaque gallstones, gallbladder wall thickening, or obvious pericholecystic inflammatory changes. PANCREAS: Unremarkable. SPLEEN: Unremarkable. ADRENAL GLANDS: Unremarkable. KIDNEYS AND URETERS: There are multiple left renal stones. Largest stone measures 6 mm in the lower pole. Hounsfield units measure 520. This is 14 cm from the mid axillary line. There is left-sided hydronephrosis. The left ureter does not appear dilated. This is similar to previous exam and may represent a chronic left UPJ obstruction. There is a large left renal cyst measuring 8 x 9 cm. This is a minimally complex cyst with single thin septation with calcification. This appears unchanged and no imaging follow-up is needed. The right kidney is unremarkable. No ureteral dilatation or ureteral stone is seen. BLADDER: Unremarkable. GASTROINTESTINAL TRACT: There is diverticulosis of the colon. Small and large bowel is otherwise unremarkable. The appendix is unremarkable. The stomach is unremarkable. ABDOMINAL WALL: There are small umbilical and bilateral inguinal hernias containing fat. LYMPH NODES: Normal. VASCULAR: Unremarkable. PELVIC VISCERA: The uterus may have been removed. No pelvic mass is seen. OSSEOUS STRUCTURES: There are degenerative changes of the spine. No fracture is seen. CT/CT abdomen pelvis wo con IMPRESSION: Multiple left renal stones, largest measuring 6 mm in the lower pole. Left hydronephrosis similar to prior exams. The left ureter does not appear dilated and this may represent a chronic left UPJ obstruction. Large minimally complex left ovarian cyst measuring 8 x 9 cm. Diverticulosis of the colon.
[2021-09-10 10:56] VITALS: BP 154/93; PULSE 104; RESP 16; TEMP 36.7; O2SAT 95; BMI 39.0
--- NOTE | 2021-09-10 11:36 | ED_ITS ---
HPI - General Adult General Chief complaint: General Medical Stated complaint: abd pain, leg pain Time Seen by Provider: 09/10/21 11:34 Source: patient Mode of arrival: ambulatory Limitations: no limitations History of Present Illness HPI narrative: ?female with history of ETOH abuse, pyelonephritis with infected kidney stone requiring lithotripsy, atrial fibrillation, asthma, gastritis, depression, hx falls, arthritis presents to the ED with right sided flank pain, and right second toe X2 months. Patient states that the back pain radiates down her right leg. At times she feels a discomfort in her stomach from pain radiating from the flank, but her main concern is the pain going down to her right leg to the toes. She complains of right 2nd toe pain, that has been going on for about a month. Denies fevers, chills, CP, SOB, nausea, vomiting, anorexia, recent sick contacts, weakness, changes in bowel habits/urination. Not an IV drug user. Onset (ago): month(s) (2) Location: back Radiation: extremity (right lower extremity ) Severity: severe Severity scale (1-10): 10 Quality: other (shooting pain ) Pain Consistency: intermittent Relieving factors: none Exacerbating factors: none Associated symptoms: denies other symptoms Treatments prior to arrival: none Related Data Previous Rx's Medication Instructions Recorded cyclobenzaprine 5 mg tablet 5 mg PO BID PRN #14 tab 08/11/20 cyclobenzaprine 5 mg tablet 5 mg PO TID PRN #14 tab 08/11/20 lidocaine 5 % topical patch 1 patch TOPICAL DAILY #1 ea 08/11/20 (Lidoderm) lidocaine 5 % topical patch 1 patch TOPICAL DAILY #1 ea 08/11/20 (Lidoderm) sucralfate 1 gram tablet (Carafate) 1 g PO BID #30 tab 08/11/20 sucralfate 1 gram tablet (Carafate) 1 g PO BID #30 tab 08/11/20 clotrimazole 1 % topical cream 1 appl TOPICAL BID 14 Days g 11/07/20 (Lotrimin AF (clotrimazole)) naproxen 500 mg tablet 500 mg PO BID 10 Days #20 tab 07/27/21 cefuroxime axetil 250 mg tablet 250 mg PO BID 7 Days #14 tab 09/10/21 lidocaine 4 % topical patch 1 patch TOPICAL DAILY PRN #10 ea 09/10/21 Allergies Allergy/AdvReac Type Severity Reaction Status Date / Time montelukast [Singulair] Allergy Unknown itching/marysol Verified 07/27/21 19:56 h From Singulair Allergy Intermediate RASH Uncoded 01/16/21 13:14 Review of Systems Review of Systems: Constitutional : No Weight loss, No Fever, No Chills, No Fatigue, No Malaise ENT/Mouth : No sore throat, No Rhinorrhea Eyes: No Eye Pain, No Swelling, No Redness Cardiovascular : No Chest Pain, No SOB, No Dyspnea on Exertion, No Orthopnea, No Edema, No Palpitations Respiratory : No Cough, No Sputum, No Wheezing Gastrointestinal : No Nausea, No Vomiting, No Diarrhea, No Constipation, + abdominal Pain, No Hematochezia, No Melena Genitourinary : No Dysuria, No Urinary Frequency, No Hematuria, Musculoskeletal : + joint pain, No Myalgias, No Joint Swelling Skin : No Skin Lesions, No rash Neuro : No Weakness, No Numbness, No Dizziness, No Headache All other systems reviewed and are negative [facility] Past Medical History Medical History Alcohol abuse Arthritis Asthma Atrial fibrillation COPD (chronic obstructive pulmonary disease) Diabetes Gout Hypertension Hypertension Knee arthropathy Nephrolithiasis Osteoarthritis Surgical History History of total knee arthroplasty Social History Social History Advance Directives: No Advance Directives Information Provided: Yes Physical Exam Vital Signs: Vital Signs: Last Vital Signs Temp 98.1 F 09/10/21 14:59 Pulse 78 09/10/21 14:59 Resp 18 09/10/21 14:59 BP 167/97 H 09/10/21 14:59 Pulse Ox 98 09/10/21 14:59 Body Mass Index 39.0 Appearance: Alert. Oriented X3. No acute distress. Eyes: Pupils equal, round and reactive to light. ENT: Pharynx normal. Neck: Normal inspection. Neck supple. CVS: Normal heart rate and rhythm. Pulses normal. Respiratory: No respiratory distress. Breath sounds normal. Abdomen: Soft and nontender. Skin: Skin warm and dry. Normal skin color. Normal skin turgor. Back: pain with ROM of back, No CVA tenderness Extremities: No lower extremity edema. No calf ttp Neuro: Oriented X 3. No motor deficit. No sensory deficit. Course Course Course Narrative: patient slept during most of her visit after her oral oxycodone, she is Rx chronic tramadol. On DC she was upset I could not prescribe narcotics but due to her chronic pain medication they will not be filled - she needs to talk to her regular prescriber. I also offered her rehab so that her pain and her medications could be managed and adjusted she adamantly refused and became upset with me. Reevaluation(s) Reevaluation #1: Labs showed no leukocytosis, no anemia.BUN 22 noted to be chronically elevated. UA 1+ leukocyte esterase and 15-[address] of abdomen/pelvis shows multiple left renal stones, largest measuring 6 mm, there is also left hydronephrosis noted, these findings are similar to previous exams. This scan shows no acute findings. Not consistent with patient's pain. Patient is complaining of right-sided flank pain, she has no left-sided flank pain. Patient's creatinine is normal. Patient's blood pressure at this time is 130/74. Patient has been resting comfortably on the stretcher, is in no acute distress at this time. She is safe for discharge home with PCP follow-up foll ow-up by Urology, and child protection specialist to look into her left ovarian cyst. Medical Decision Making MDM Narrative Medical decision making narrative: 1152 76-year-old femaleomhx significant for ETOH abuse, pyelonephritis with infected kidney stones requiring lithotripsy, a-fib, asthma, gastritis, depression, hx of falls, arthritis presents to the emergency department with 2 months of progressively worsening flank pain radiating to her stomach at times, and back pain radiating to her right leg. She also complains of pain to L. second toe. To note, she was seen here on 07/27/2021, where she had an x-ray of her toe it showed a nondisplaced fracture of the lateral aspect of the middle phalanx of the 2nd toe. Upon physical examination patient appears comfortable on the stretcher in no acute distress. She has painful range of motion to the back. No CVA tenderness. Lungs are clear to auscultation. S1-S2 appreciated no murmurs. No focal neuro deficits. Sensory and motor intact. Not concerned for cauda equina. Patient history, and physical are not consistent with epidural abscess. Plan at this time is to obtain basic labs, liver, lipase, UA, CT of the abdomen and pelvis to rule out kidney stones. Based off patient's history, physical exam findings, this is likely musculoskeletal in nature, but pyelonephritis, and UTI will both be ruled out as well. Lab Data Result diagrams: 09/10/21 11:57 09/10/21 11:57 Labs: Lab Results 09/10/21 09/10/21 09/10/21 Range/Units 11:57 11:57 13:58 WBC 5.8 (4.8-10.8) X10*3/uL RBC 4.59 (4.20-5.50) X10*6/uL Hgb 12.7 (12.0-16.0) g/dl Hct 39.8 (37.0-47.0) % MCV 86.7 (80.0-98.0) fL MCH 27.7 (27.0-33.0) pg MCHC 31.9 (31.0-35.0) g/dl RDW 12.0 (11.0-16.0) % Plt Count 267 (160-400) X10*3/uL MPV 10.7 (9.4-12.3) fL Immature Gran % (Auto) 0.3 (0.0-0.4) % Neut % (Auto) 65.1 (45-73) % Lymph % (Auto) 19.8 L (20-40) % [place] % (Auto) 10.4 (2-11) % Eos % (Auto) 3.5 (0-4) % Baso % (Auto) 0.9 (0-2) % Lymph # (Auto) 1.1 L (1.2-4.9) X10*3/uL [place] # (Auto) 0.6 (0.1-1.2) X10*3/uL Eos # (Auto) 0.2 (0.0-0.4) X10*3/uL Baso # (Auto) 0.1 (0.0-0.2) X10*3/uL Abs Immat Gran (auto) 0.02 (0.00-0.03) X10*3/uL Absolute Neuts (auto) 3.75 (2.0-8.3) x10*3/uL Absolute Nucleated RBC 0.000 (0.0-0.012) X10*3/uL Nucleated RBC % (auto) 0.0 (0.0-0.2) /100WBC Sodium 138 (135-145) mmol/L Potassium 3.8 (3.3-5.1) mmol/L Chloride 98 (96-108) mmol/L Carbon Dioxide 31 H (22-29) mmol/L Anion Gap 13 (12-20) BUN 22 H (9-16) mg/dL Creatinine 0.87 (0.5-1.4) mg/dL Estim Creat Clear Calc 54.3 Estimated GFR > 60 Random Glucose 324 H (60-115) mg/dL Calcium 9.6 (8.4-10.2) mg/dL Total Bilirubin 0.4 (0.0-1.0) mg/dL Direct Bilirubin 0.2 (0.0-0.5) mg/dL AST 15 (5-31) U/L ALT 16 (0-31) U/L Alkaline Phosphatase 124 H (39-117) U/L Total Protein 6.8 (6.5-8.0) g/dL Albumin 3.9 (3.5-5.0) g/dL Lipase 23 (8-78) U/L Urine Color YELLOW Urine Appearance HAZY Urine pH 6.0 (5.0-8.0) Ur Specific [place] 1.020 (1.005-1.025) Urine Protein TRACE (NEG-TRACE) MG/DL Urine Glucose (UA) 500 H (NEG) MG/DL Urine Ketones NEG (NEG) MG/DL Urine Blood NEG (NEG) Urine Nitrite NEG (NEG) Ur Leukocyte Esterase 1+ H (NEG) Urine RBC 0 (0) /HPF Urine WBC 15-29 H (0-4) /HPF Ur Squamous Epith Cells 2+ /LPF Ur Renal Epithelial Cell 1+ /LPF Urine Bacteria NONE /LPF Discharge Plan Discharge Clinical Impression: Right flank pain, Kidney stone, Left ovarian cyst Patient Disposition: Home, Self-Care Instructions: Ovarian Cyst (ED), Kidney Stones (ED), Acute Low Back Pain (ED) Additional Instructions: Follow-up with your primary care provider this week Follow up with urology to further look into your kidney stones. Follow up with OBGYN to discuss findings on CT of left ovarian cyst. Follow up with both these specialist this week. Return to the emergency department if new or worsening symptoms Prescriptions: New cefuroxime axetil 250 mg tablet 250 mg PO BID 7 Days Qty: 14 RF: 0 lidocaine 4 % adhesive patch,medicated 1 patch topical DAILY PRN (Reason: pain) Qty: 10 RF: 0 No Action sucralfate [Carafate] 1 gram tablet 1 g PO BID Qty: 30 RF: 0 cyclobenzaprine 5 mg tablet 5 mg PO BID PRN (Reason: muscle spasm) Qty: 14 RF: 0 lidocaine [Lidoderm] 5 % adhesive patch,medicated 1 patch topical DAILY Qty: 1 RF: 0 lidocaine [Lidoderm] 5 % adhesive patch,medicated 1 patch topical DAILY Qty: 1 RF: 0 cyclobenzaprine 5 mg tablet 5 mg PO TID PRN (Reason: muscle spasm) Qty: 14 RF: 0 sucralfate [Carafate] 1 gram tablet 1 g PO BID Qty: 30 RF: 0 clotrimazole [Lotrimin AF (clotrimazole)] 1 % cream 1 appl topical BID 14 Days RF: 0 naproxen 500 mg tablet 500 mg PO BID 10 Days Qty: 20 RF: 0 Referrals: Areli Song [Primary Care Provider] - 2 days Lior Tellez MD [Physician] - 2 days Reuben Lawrence MD [Physician] - 2 days
[2021-09-10 11:59] VITALS: BP 148/86; PULSE 91; RESP 16; TEMP 37.1; O2SAT 96
[2021-09-10 12:05] LABS: MANUAL DIFF FLAG NO
[2021-09-10 12:08] LABS: Basophils Absolute Auto 0.1 X10*3/uL (0.0-0.2); Basophils Percent Auto 0.9 % (0-2); Eosinophils Absolute Auto 0.2 X10*3/uL (0.0-0.4); Eosinophils Percent Auto 3.5 % (0-4); Hematocrit 39.8 % (37.0-47.0); Hemoglobin 12.7 g/dl (12.0-16.0); Imm Gran Abs Auto 0.02 X10*3/uL (0.00-0.03); Imm Gran Pct Auto 0.3 % (0.0-0.4); Lymphocytes Absolute Auto 1.1 X10*3/uL (1.2-4.9); Lymphocytes Percent Auto 19.8 % (20-40); Mean Corpuscular HGB Conc 31.9 g/dl (31.0-35.0); Mean Corpuscular Hemoglobin 27.7 pg (27.0-33.0); Mean Corpuscular Volume 86.7 fL (80.0-98.0); Mean Platelet Volume 10.7 fL (9.4-12.3); Monocytes Absolute Auto 0.6 X10*3/uL (0.1-1.2); Monocytes Percent Auto 10.4 % (2-11); Neutrophils Absolute Auto 3.75 x10*3/uL (2.0-8.3); Neutrophils Percent Auto 65.1 % (45-73); Platelet Count 267 X10*3/uL (160-400); Red Blood Count 4.59 X10*6/uL (4.20-5.50); White Blood Count 5.8 X10*3/uL (4.8-10.8)
[2021-09-10 12:23] LABS: Alanine Aminotransferase 16 U/L (0-31); Albumin Level 3.9 g/dL (3.5-5.0); Alkaline Phosphatase 124 U/L (39-117); Anion Gap 13 (12-20); Aspartate Amino Transferase 15 U/L (5-31); Bilirubin Direct 0.2 mg/dL (0.0-0.5); Bilirubin Total 0.4 mg/dL (0.0-1.0); Blood Urea Nitrogen 22 mg/dL (9-16); Calcium 9.6 mg/dL (8.4-10.2); Carbon Dioxide 31 mmol/L (22-29); Chloride 98 mmol/L (96-108); Creatinine Clr Calc Pharmacy 54.3; Estimated Glomerular Filt Rate > 60; Glucose Random 324 mg/dL (60-115); Lipase 23 U/L (8-78); Potassium 3.8 mmol/L (3.3-5.1); Sodium 138 mmol/L (135-145); Total Protein 6.8 g/dL (6.5-8.0)
[2021-09-10 12:25] VITALS: BP 130/74; PULSE 79; RESP 16; TEMP 36.7; O2SAT 98
[2021-09-10] MEDS: oxyCODONE HCl Immed Release 5 MG TABLET PO (12:42)
[2021-09-10 14:09] LABS: Appearance Urine HAZY; Color Urine YELLOW; Glucose Urine UA 500 MG/DL (NEG); Leukocyte Esterase Urine 1+ (NEG); Nitrite Urine NEG (NEG); Urine Blood NEG (NEG); Urine Ketones NEG (NEG); Urine Protein TRACE MG/DL (NEG-TRACE)
[2021-09-10 14:10] LABS: UACC Culture Trigger NO
[2021-09-10 14:17] LABS: RBC Urine 0 /HPF (0); UACC CULT YES
[2021-09-10 14:18] LABS: Renal Epithelial Cells Urine 1+ /LPF; Squamous Epithelial Cell Urine 2+ /LPF
[2021-09-10 14:59] VITALS: BP 167/97; PULSE 78; RESP 18; TEMP 36.7; O2SAT 98
== END 2021-09-10 15:27 | disposition home or self-care (01) ==
PROVIDERS: Emergency Provider Emergency Medicine; PCP Nurse Practitioner
DX: N83.202 Unspecified ovarian cyst, left side (principal); N20.0 Calculus of kidney; R10.9 Unspecified abdominal pain; Z79.899 Other long term (current) drug therapy
CPT/HCPCS: 36415; 74176; 80048; 80076; 81001; 83690; 85025; 87086; 99284

== ENCOUNTER → 2021-09-27 15:04 | Outpatient (BNVA) | payer MEDICARE, MEDICAID, SELFPAY | PROVIDERS: PCP Nurse Practitioner; Referring Provider Nurse Practitioner; Visit Provider Nurse Practitioner Family | DX: K58.1 Irritable bowel syndrome with constipation (principal); K21.9 Gastro-esophageal reflux disease without esophagitis; K59.04 Chronic idiopathic constipation | CPT/HCPCS: 99212 ==

== ENCOUNTER 2021-12-19 14:29 | Outpatient (REF) | payer MEDICARE, MEDICAID, SELFPAY ==
--- NOTE | ~2021-12-19 | US_ITS ---
EXAMINATION: US RETROPERITONEAL LIMITED (RENAL ONLY) CLINICAL INFORMATION: Calculus of kidney. COMPARISON: CT abdomen and pelvis without contrast 09/10/2021. Renal ultrasound 11/18/2019 and 08/02/2018. TECHNIQUE: Real-time imaging of the kidneys. FINDINGS: RIGHT KIDNEY: 12.9 x 4.9 x 6.2 cm (SAG x AP x TRV). The kidney is normal in size, contour, and echogenicity. Renal cortical thickness is normal. No calculi or focal parenchymal lesions. No hydronephrosis. LEFT KIDNEY: 13.8 x 4.4 x 5.6 cm (SAG x AP x TRV). The kidney is normal in size, increased echogenicity and contour. Renal cortical thickness is normal. There is a large complex anechoic cyst with septation midpole measuring 10.5 x 9.0 x 9.0 cm. Small cluster echogenic stones are seen in a dilated pelvis measuring 1.3 x 0.9 x 0.9 cm. An echogenic nonobstructive stone is seen in the lower pole measuring 0.3 x 0.2 x 0.3 cm. There is mild hydronephrosis. US/US renal BI IMPRESSION: Normal right kidney. Large complex cyst left kidney measuring 10.5 cm in maximum length. Clusters of small echogenic stones in the dilated pelvis measuring approximately 1.3 cm. In addition there is a nonobstructive echogenic stone lower pole measuring 0.3 cm. There is mild hydronephrosis.
== END 2021-12-19 14:30 | disposition home or self-care (01) ==
LOC: HO.HMGCX 14:29
PROVIDERS: Visit Provider Urology
DX: N20.0 Calculus of kidney (principal)
CPT/HCPCS: 76775

== ENCOUNTER → 2022-01-07 09:31 | Outpatient (BNVA) | payer MEDICARE, MEDICAID, SELFPAY | PROVIDERS: PCP Nurse Practitioner; Referring Provider Nurse Practitioner; Visit Provider Nurse Practitioner Family | DX: K59.04 Chronic idiopathic constipation (principal); K58.1 Irritable bowel syndrome with constipation; K21.9 Gastro-esophageal reflux disease without esophagitis; L30.9 Dermatitis, unspecified; Z79.899 Other long term (current) drug therapy | CPT/HCPCS: 99212 ==

== ENCOUNTER → 2022-01-28 10:05 | Outpatient (BNVA) | payer MEDICARE, MEDICAID, SELFPAY | PROVIDERS: PCP Nurse Practitioner | DX: N20.0 Calculus of kidney (principal) | CPT/HCPCS: 99212 ==

== ENCOUNTER 2022-02-15 15:02 | Emergency (ER) | payer MEDICARE, MEDICAID, SELFPAY ==
[2022-02-15 15:20] VITALS: BP 210/80; PULSE 90; RESP 19; TEMP 37.1; O2SAT 98; BMI 46.7
[2022-02-15 16:08] VITALS: BP 168/98; PULSE 87; RESP 18; TEMP 37.1; O2SAT 97
--- NOTE | 2022-02-15 16:39 | ECG_ITS ---
Test Reason : ABDOMINAL PAIN Blood Pressure : / mmHG Vent. Rate : 080 BPM Atrial Rate : 000 BPM P-R Int : 000 ms QRS Dur : 080 ms QT Int : 394 ms P-R-T Axes : 000 029 136 degrees QTc Int : 454 ms Atrial fibrillation with premature ventricular or aberrantly conducted complexes Septal infarct , age undetermined Abnormal ECG When compared with ECG of 24-DEC-2020 07:28, Nonspecific T wave abnormality now evident in Anterior leads Referred By: Nona Severino Electronically Signed By:ALEA MAE MD
--- NOTE | 2022-02-15 16:52 | ED.ABDPAIN ---
HPI - Abdominal Pain General Chief Complaint: Abdominal Pain Stated Complaint: abd pain Time Seen by Provider: 02/15/22 16:38 Source: patient Mode of arrival: ambulatory Limitations: language barrier (Divehi-speaking medical secretary receptionist utilized) History of Present Illness HPI narrative: Patient is a 77-year-old female with a past medical history of atrial fibrillation, asthma, COPD, Diabetes, Hypertension, nephrolithiasis, gastritis, irritable bowel syndrome, constipation, GERD. She presents emergency department for diffuse abdominal pain. Reportedly the abdominal pain has been present for years, but has been worse since last night. According to patient's granddaughter the pain got worse after she had [employer] for dinner followed by [employer] leonard, which reportedly typically exacerbated her chronic pain. She reports last bowel movement being earlier this morning which was normal, without blood, not black, and no diarrhea. She denies fevers, chills, chest pain, palpitations, shortness of breath, difficulty breathing, nausea, vomiting, dysuria, urinary frequency urgency hesitancy. Related Data Previous Rx's Medication Instructions Recorded lidocaine 5 % topical patch 1 patch TOPICAL DAILY #1 ea 08/11/20 (Lidoderm) lidocaine 5 % topical patch 1 patch TOPICAL DAILY #1 ea 08/11/20 (Lidoderm) clotrimazole 1 % topical cream 1 appl TOPICAL BID 14 Days g 11/07/20 (Lotrimin AF (clotrimazole)) naproxen 500 mg tablet 500 mg PO BID 10 Days #20 tab 07/27/21 cefuroxime axetil 250 mg tablet 250 mg PO BID 7 Days #14 tab 09/10/21 lidocaine 4 % topical patch 1 patch TOPICAL DAILY PRN #10 ea 09/10/21 cyclobenzaprine 5 mg tablet 5 mg PO BID PRN #14 tab 09/27/21 cetirizine 10 mg tablet (Zyrtec) 10 mg PO DAILY PRN #30 tab 01/07/22 methylcellulose (laxative) 500 mg 500 mg PO DAILY #30 tab 01/07/22 tablet (Citrucel) omeprazole 20 mg capsule,delayed 20 mg PO DAILY #90 cap 01/07/22 release sennosides 8.6 mg tablet (Natural 8.6 mg PO BEDTIME #90 tab 01/07/22 Senna Laxative) simethicone 125 mg capsule (Gas 125 mg PO TID-QID PRN #120 cap 01/07/22 Relief (simethicone)) pyridoxine (vitamin B6) 100 mg 100 mg PO DAILY 90 Days #90 tab 01/28/22 tablet Allergies Allergy/AdvReac Type Severity Reaction Status Date / Time montelukast [Singulair] Allergy Unknown itching/marysol Verified 01/28/22 10:13 h From Singulair Allergy Intermediate RASH Uncoded 01/28/22 10:13 Review of Systems Review of Systems Constitutional : No Weight loss, No Fever, No Chills ENT/Mouth :? No sore throat, No Rhinorrhea Eyes: No Swelling, No Redness Cardiovascular : No Chest Pain, No SOB, No Edema Respiratory : No Cough, No Sputum, No Wheezing Gastrointestinal : No Nausea, No Vomiting, No Diarrhea, positive abdominal pain, No Hematochezia, No Melena Genitourinary : No Dysuria, No Urinary Frequency, No Hematuria, No Urgency? Musculoskeletal : No joint pain, No Myalgias, No Joint Swelling Skin : No Skin Lesions, No rash Neuro : No Weakness, No Numbness, No Dizziness, No Headache Psych : No Anxiety/Panic, No Depression Heme/Lymph: No Bruising, No Lymphadenopathy Endocrine : No Polyuria, No Polydipsia Yes all other systems are reviewed and are negative [facility] Past Medical History Attestation statement: The following information was validated with the patient. Source: old records reviewed Medical History Alcohol abuse Arthritis Asthma Atrial fibrillation COPD (chronic obstructive pulmonary disease) Diabetes Gout Hypertension Hypertension Knee arthropathy Nephrolithiasis Osteoarthritis Surgical History History of total knee arthroplasty Hx of colonoscopy Social History Social History Unable to assess alcohol history related to: Unknown Patient Tobacco Use Status: Never used Tobacco Advance Directives: No Advance Directives Information Provided: No Physical Exam ED Vital Signs: Vital Signs - 24 hr 02/15/22 15:20 02/15/22 16:08 Temperature 98.8 F 98.7 F Pulse Rate 90 87 Respiratory Rate 19 18 Blood Pressure 210/80 H 168/98 H Pulse Oximetry 98 97 BMI result Body Mass Index 46.7 Vital signs have been reviewed as normal and appeared to be correct. Blood pressure elevated 168/98 Heart rate normal.? Respiration rate normal. Temperature normal.? Oxygen saturation normal. Appearance: Alert.?Oriented to person, place and time. No acute distress.?Normal affect. Eyes: Pupils equal, round and reactive to light.? ENT: Pharynx normal.?? Neck: Normal inspection.? Neck supple.?? CVS: Heart sounds normal. Normal heart rate and rhythm.? Pulses normal.?? Respiratory: No respiratory distress.? Lung sounds clear to auscultation bilaterally?? Abdomen: Soft and non-tender. Normoactive bowel sounds. No pulsatile mass.?? Skin: Skin warm and dry.? Normal skin color.? Normal skin turgor.?? Extremities: No lower extremity edema.? Neuro: Moves all extremities spontaneously. Sensation intact bilaterally. CN II-XII intact. No focal neuro deficits. Ambulates with normal steady gait. Course Course Course Narrative: Patient is a 77-year-old female being evaluated for diffuse abdominal pain unrelieved by Tylenol and ibuprofen that she took home, pain was exacerbated after eating foods yesterday that are known to worsen her irritable bowel syndrome. Will obtain basic labs including CBC, CMP, and urinalysis to exclude infection. Patient to be medicated with Bentyl for abdominal cramping. Disposition pending results. History and physical exam not consistent with GI perforation, GI bleed, AAA, aortic dissection, DKA. Not consistent with strangulated hernia, bowel obstruction, pulmonary embolism, mesenteric ischemia, myocardial infarction. Reevaluation(s) Reevaluation #1: CBC is overall unremarkable. EKG reveals atrial fibrillation with PVC, troponin 8.5, no active chest pain, unlikely to be ACS. COVID-19 testing is negative. CMP is pending at this time, patient ambulated with steady gait to the restroom to provide urinalysis. She reports improvement in her abdominal cramping after received Bentyl. She is followed outpatient by Gastroenterology for her symptoms. I discussed with her avoidance of foods that exacerbate her abdominal pain, patient and her grandaughter verbalized understanding of this. Patient signed out to Ewelina RANGEL pending urinalysis and CMP, is normal planning for discharge home with outpatient f/u with GI and PCP Time: 17:56 MDM - Abdominal Pain Medical Records Attestation: I reviewed the patient's medical records. Lab Data Attestation: I reviewed the patient's lab results. Result diagrams: 02/15/22 17:09 02/15/22 17:09 Labs: Lab Results 02/15/22 02/15/22 Range/Units 17: 17:09 WBC 8.5 (4.8-10.8) X10*3/uL RBC 5.03 (4.20-5.50) X10*6/uL Hgb 14.5 (12.0-16.0) g/dl Hct 44.5 (37.0-47.0) % MCV 88.5 (80.0-98.0) fL MCH 28.8 (27.0-33.0) pg MCHC 32.6 (31.0-35.0) g/dl RDW 12.6 (11.0-16.0) % Plt Count 275 (160-400) X10*3/uL MPV 10.0 (9.4-12.3) fL Immature Gran % (Auto) 0.4 (0.0-0.4) % Neut % (Auto) 76.8 H (45-73) % Lymph % (Auto) 12.3 L (20-40) % [place] % (Auto) 7.8 (2-11) % Eos % (Auto) 2.1 (0-4) % Baso % (Auto) 0.6 (0-2) % Lymph # (Auto) 1.1 L (1.2-4.9) X10*3/uL [place] # (Auto) 0.7 (0.1-1.2) X10*3/uL Eos # (Auto) 0.2 (0.0-0.4) X10*3/uL Baso # (Auto) 0.1 (0.0-0.2) X10*3/uL Abs Immat Gran (auto) 0.03 (0.00-0.03) X10*3/uL Absolute Neuts (auto) 6.6 (2.0-8.3) x10*3/uL Absolute Nucleated RBC 0.000 (0.0-0.012) X10*3/uL Nucleated RBC % (auto) 0.0 (0.0-0.2) /100WBC Troponin I High Sens 8.5 (<3.5-17.0) ng/L ECG Data Attestation: I personally reviewed and interpreted this ECG as follows: ECG interpretation date: 02/15/22 ECG interpretation time: 17:45 Prior ECG tracings: available for review Interpretation: Rate: 80 Rhythm:? Atrial fibrillation [place]:? Normal Normal P waves.? Normal CRISTINA.?? Normal QRS complex.?? ST T wave :??No ST elevation, ST depression, no T-wave inversion qTC: 454 prior studies:?december 2020 The study has been interpreted contemporaneously by me. Discharge Plan Discharge Clinical Impression: Irritable bowel syndrome (IBS), Abdominal pain Patient Disposition: Still a Patient Instructions: Abdominal Pain (ED), Irritable Bowel Syndrome (ED) Additional Instructions: Please contact your primary care provider and your GI doctor to arrange for follow-up. You may return to the emergency department any new or worsening symptoms or concerns. Prescriptions: No Action Citrucel 500 mg tablet 500 mg PO DAILY Qty: 30 2RF Rx Instructions: take it with full glass of water lidocaine [Lidoderm] 5 % adhesive patch,medicated 1 patch topical DAILY Qty: 1 0RF Rx Instructions: leave on most painful area for up to 12 hrs lidocaine [Lidoderm] 5 % adhesive patch,medicated 1 patch topical DAILY Qty: 1 0RF Rx Instructions: leave on most painful area for up to 12 hrs clotrimazole [Lotrimin AF (clotrimazole)] 1 % cream 1 appl topical BID 14 Days 0RF naproxen 500 mg tablet 500 mg PO BID 10 Days Qty: 20 0RF cefuroxime axetil 250 mg tablet 250 mg PO BID 7 Days Qty: 14 0RF lidocaine 4 % adhesive patch,medicated 1 patch topical DAILY PRN (Reason: pain) Qty: 10 0RF Rx Instructions: may leave on for up to 12 hrs cyclobenzaprine 5 mg tablet 5 mg PO BID PRN (Reason: muscle spasm) Qty: 14 0RF simethicone [Gas Relief (simethicone)] 125 mg capsule 125 mg PO TID-QID PRN (Reason: abdominal distention) Qty: 120 2RF sennosides [Natural Senna Laxative] 8.6 mg tablet 8.6 mg PO BEDTIME Qty: 90 3RF omeprazole 20 mg capsule,delayed release(DR/EC) 20 mg PO DAILY Qty: 90 3RF cetirizine [Zyrtec] 10 mg tablet 10 mg PO DAILY PRN (Reason: allergy symptoms) Qty: 30 0RF pyridoxine (vitamin B6) 100 mg tablet 100 mg PO DAILY 90 Days Qty: 90 1RF
[2022-02-15] MEDS: Dicyclomine HCl 10 MG CAPSULE PO (17:12)
--- NOTE | 2022-02-15 17:12 | PC.NURSE ---
iv inserted, labs drawn, covid swab obtained, pt medicated per order
[2022-02-15 17:13] LABS: MANUAL DIFF FLAG NO
[2022-02-15 17:15] LABS: Basophils Absolute Auto 0.1 X10*3/uL (0.0-0.2); Basophils Percent Auto 0.6 % (0-2); Eosinophils Absolute Auto 0.2 X10*3/uL (0.0-0.4); Eosinophils Percent Auto 2.1 % (0-4); Hematocrit 44.5 % (37.0-47.0); Hemoglobin 14.5 g/dl (12.0-16.0); Imm Gran Abs Auto 0.03 X10*3/uL (0.00-0.03); Imm Gran Pct Auto 0.4 % (0.0-0.4); Lymphocytes Absolute Auto 1.1 X10*3/uL (1.2-4.9); Lymphocytes Percent Auto 12.3 % (20-40); Mean Corpuscular HGB Conc 32.6 g/dl (31.0-35.0); Mean Corpuscular Hemoglobin 28.8 pg (27.0-33.0); Mean Corpuscular Volume 88.5 fL (80.0-98.0); Monocytes Absolute Auto 0.7 X10*3/uL (0.1-1.2); Monocytes Percent Auto 7.8 % (2-11); Neutrophils Absolute Auto 6.6 x10*3/uL (2.0-8.3); Neutrophils Percent Auto 76.8 % (45-73); Platelet Count 275 X10*3/uL (160-400); Red Blood Count 5.03 X10*6/uL (4.20-5.50); Red Cell Distribution Width 12.6 % (11.0-16.0); White Blood Count 8.5 X10*3/uL (4.8-10.8)
[2022-02-15 17:34] LABS: Troponin-I High Sensitivity 8.5 ng/L (<3.5-17.0)
[2022-02-15 17:44] LABS: COVID-19 Test Negative (Negative); IDNOW Serial# 55D5AD1C
[2022-02-15 18:57] VITALS: BP 166/86; PULSE 84; RESP 18; TEMP 37.1; O2SAT 95
[2022-02-15 19:04] LABS: Appearance Urine HAZY; Color Urine YELLOW; Glucose Urine UA >=1000 MG/DL (NEG); Leukocyte Esterase Urine NEG (NEG); Nitrite Urine NEG (NEG); UACC Culture Trigger NO; Urine Blood 3+ (NEG); Urine Ketones 15 MG/DL (NEG); Urine Protein TRACE MG/DL (NEG-TRACE)
[2022-02-15 19:10] LABS: Squamous Epithelial Cell Urine TRACE /LPF; WBC Urine 0-2 /HPF (0-4)
--- NOTE | 2022-02-15 19:48 | PC.NURSE ---
Took report from Eleanor to assume care of Pt, Pt resting comfortably, Pt needs met at this time, call light in reach, this RN continues to monitor.
[2022-02-15 19:49] LABS: Alanine Aminotransferase 22 U/L (0-31); Albumin Level 4.2 g/dL (3.5-5.0); Alkaline Phosphatase 131 U/L (39-117); Anion Gap 16 (12-20); Aspartate Amino Transferase 24 U/L (5-31); Bilirubin Total 0.8 mg/dL (0.0-1.0); Blood Urea Nitrogen 15 mg/dL (9-16); Calcium 9.8 mg/dL (8.4-10.2); Carbon Dioxide 26 mmol/L (22-29); Chloride 102 mmol/L (96-108); Creatinine Clr Calc Pharmacy 65.9; Estimated Glomerular Filt Rate > 60; Glucose Random 170 mg/dL (60-115); Magnesium 2.5 mg/dL (1.6-2.6); Potassium 4.3 mmol/L (3.3-5.1); Sodium 140 mmol/L (135-145); Total Protein 7.6 g/dL (6.5-8.0)
[2022-02-15 20:03] VITALS: BP 169/81; PULSE 66; RESP 18; TEMP 36.9; O2SAT 96
== END 2022-02-15 20:56 | disposition home or self-care (01) ==
PROVIDERS: Nurse Practitioner Family; Emergency Provider Internal Medicine; PCP Nurse Practitioner
DX: K58.9 Irritable bowel syndrome, unspecified (principal); R10.9 Unspecified abdominal pain; Z20.822 Contact with and (suspected) exposure to COVID-19; E11.9 Type 2 diabetes mellitus without complications; I10 Essential (primary) hypertension; I48.91 Unspecified atrial fibrillation; Z79.899 Other long term (current) drug therapy
CPT/HCPCS: 36415; 80053; 81001; 83735; 84484; 85025; 87635; 93005; 99283; 99284

== ENCOUNTER → 2022-03-18 10:09 | Outpatient (BNVA) | payer MEDICARE, MEDICAID, SELFPAY | PROVIDERS: PCP Nurse Practitioner; Referring Provider Nurse Practitioner; Visit Provider Nurse Practitioner Family | DX: K58.1 Irritable bowel syndrome with constipation (principal); K59.04 Chronic idiopathic constipation; K21.9 Gastro-esophageal reflux disease without esophagitis | CPT/HCPCS: 99212 ==

== ENCOUNTER 2022-05-22 13:45 | Outpatient (REF) | payer OTHER, SELFPAY ==
--- NOTE | ~2022-05-22 | MM_ITS ---
EXAMINATION: BONE DENSITOMETRY CLINICAL INDICATION: Menopause. COMPARISON: Previous BD dated 06/26/2017 and baseline BD dated 01/18/2008. TECHNIQUE: Using a Directr DXA System (software version: 13.1) manufactured by [employer], dual-energy x-ray absorptiometry was performed of the lumbar spine and left hip. The images are of good technical quality. Summary results are attached. FINDINGS: AP SPINE L1-L4: Current: BMD 1.049 g/cm2, Z-score -0.4, T-score -1.1, osteopenia, 0.5% decrease from previous, 3.5% decrease from baseline (<5% change is not significant). Prior: BMD 1.054 g/cm2. Baseline: BMD 1.087 g/cm2. LEFT FEMUR, NECK: Current: BMD 0.688 g/cm2, Z-score -1.1, T-score -2.5, osteoporosis. Prior: BMD 0.916 g/cm2. Baseline: BMD 0.894 g/cm2. LEFT FEMUR, TOTAL: Current: BMD 0.681 g/cm2, Z-score -1.5, T-score -2.6, osteoporosis, 27.9% decrease from previous, 36.7% decrease from baseline (<5% change is not significant). Prior: BMD 0.945 g/cm2. Baseline: BMD 1.076 g/cm2. IDENTIFIED RISK FACTORS: Early menopause, secondary osteoporosis, osteoporosis. HISTORY OF FRACTURE: None listed. MEDICATIONS: Calcium supplements or multivitamin, vitamin D. MM/XR DEXA axial skeleton IMPRESSION: 1. DIAGNOSIS: Osteoporosis based on the lowest T-score value of -2.6 in the total femur applying World Health Organization criteria. 2. 10-YEAR FRACTURE RISK PREDICTION, FRAX: According to the guidelines, FRAX calculation should only be performed on patients in the osteopenia bone density category. Therefore, FRAX was not performed on this patient. 3. Treatment Recommendations: NOF guidelines recommend consideration for treatment in postmenopausal women and men age 50 and older presenting with the following: -A hip or vertebral (clinical or morphometric) fracture. -T-score less than or equal to -2.5 at the femoral neck or spine after appropriate evaluation to exclude secondary causes. -Low bone mass at the hip or spine and a 10-year fracture probability by FRAX of greater than or equal to 3% for hip fracture or greater than or equal to 20% for major osteoporotic fracture based on the [place] adapted WHO algorithm. 4. Other Recommendations: All treatment decisions require clinical judgment and consideration of individual patient factors, including patient preferences, comorbidities, previous drug use, risk factors not captured in the FRAX model (e.g. frailty, falls, vitamin D deficiency, increased bone turnover, interval significant decline in bone density) and possible under or overestimation of fracture risk by FRAX. Additional medical evaluation for secondary cause of low bone mineral density may be appropriate. FUTURE SCAN RECOMMENDATION: People with diagnosed cases of osteoporosis or at high risk for fracture should have regular bone mineral density tests. For patients eligible for Medicare, routine testing is allowed once every 2 years. The testing frequency can be increased to one year for patients who have rapidly progressing disease, those who are receiving or discontinuing medical therapy to restore bone mass, or have additional risk factors.
== END 2022-05-22 13:46 | disposition home or self-care (01) ==
LOC: HO.MAMMO 13:45
PROVIDERS: Visit Provider Nurse Practitioner
DX: Z13.820 Encounter for screening for osteoporosis (principal); Z78.0 Asymptomatic menopausal state
CPT/HCPCS: 77080

== ENCOUNTER 2022-06-20 14:21 | Outpatient (REF) | payer OTHER, SELFPAY ==
--- NOTE | ~2022-06-20 | US_ITS ---
EXAMINATION: US RETROPERITONEAL LIMITED (RENAL ONLY) CLINICAL INFORMATION: Calculus of kidney. COMPARISON: Renal ultrasound 12/19/2021 and 11/18/2019. CT abdomen and pelvis 09/10/2021. X-ray KUB 07/21/2014 and 08/01/2013. TECHNIQUE: Real-time imaging of the kidneys. FINDINGS: RIGHT KIDNEY: 10.4 x 5.1 x 5.9 cm (SAG x AP x TRV). The kidney is normal in size, contour, and echogenicity. Renal cortical thickness is normal. No calculi or focal parenchymal lesions. No hydronephrosis. LEFT KIDNEY: 11.7 x 5.4 x 5.4 cm (SAG x AP x TRV). The kidney is normal in size, contour, and echogenicity. There is left renal cortical thinning or scarring. There is a 9.4 x 9.2 x 8.2 cm complex cyst with several thickened partially calcified septations. The previously identified left lower pole renal stones are not appreciated. No hydronephrosis is seen. US/US renal BI IMPRESSION: Large slightly complex left renal cyst similar to previous exams. The previously identified left lower pole renal stones are not appreciated. Normal right kidney.
== END 2022-06-20 14:22 | disposition home or self-care (01) ==
LOC: HO.HMGCX 14:21
PROVIDERS: Visit Provider Urology
DX: N20.0 Calculus of kidney (principal)
CPT/HCPCS: 76775

== ENCOUNTER → 2022-07-10 11:09 | Outpatient (BNVA) | payer OTHER, SELFPAY | PROVIDERS: PCP Nurse Practitioner; Referring Provider Nurse Practitioner; Visit Provider Nurse Practitioner Family | DX: K59.04 Chronic idiopathic constipation (principal); K64.9 Unspecified hemorrhoids | CPT/HCPCS: 99212 ==

== ENCOUNTER → 2022-07-21 14:40 | Outpatient (BNVA) | payer OTHER, SELFPAY | PROVIDERS: PCP Nurse Practitioner; Visit Provider Nurse Practitioner Family | DX: K64.9 Unspecified hemorrhoids (principal); K59.04 Chronic idiopathic constipation; Z79.899 Other long term (current) drug therapy | CPT/HCPCS: 99212 ==

== ENCOUNTER → 2022-07-31 14:05 | Outpatient (BNVA) | payer OTHER, SELFPAY | PROVIDERS: PCP Nurse Practitioner; Referring Provider Nurse Practitioner Family; Visit Provider Surgery | DX: K64.5 Perianal venous thrombosis (principal) | CPT/HCPCS: 99202 ==

== ENCOUNTER 2022-09-06 18:38 | Emergency (ER) | payer OTHER, SELFPAY ==
--- NOTE | ~2022-09-06 | XR_ITS ---
EXAMINATION: 1. LEFT ANKLE. 2. LEFT FOOT. CLINICAL INFORMATION: Fall. Pain. COMPARISON: None TECHNIQUE: 1. Left ankle. 3 views 2. Left foot. 3 views FINDINGS: 1. Left ankle. No acute abnormality. No fracture. No dislocation. Ankle mortise is congruent. 2. Left foot. No acute abnormality. No fracture. No dislocation. Marginal spurs from degenerative change of the talonavicular and the cuneiform metatarsal joints of the dorsum of the foot. Large plantar calcaneal spur and posterior calcaneal spur at the insertion of Achilles tendon. XR/XR ankle LT min 3V IMPRESSION: 1. Left ankle. No acute abnormality. 2. Left foot. No acute abnormality. Degenerative change of the midfoot. Calcaneal spurs.
--- NOTE | ~2022-09-06 | XR_ITS ---
EXAMINATION: 1. LEFT ANKLE. 2. LEFT FOOT. CLINICAL INFORMATION: Fall. Pain. COMPARISON: None TECHNIQUE: 1. Left ankle. 3 views 2. Left foot. 3 views FINDINGS: 1. Left ankle. No acute abnormality. No fracture. No dislocation. Ankle mortise is congruent. 2. Left foot. No acute abnormality. No fracture. No dislocation. Marginal spurs from degenerative change of the talonavicular and the cuneiform metatarsal joints of the dorsum of the foot. Large plantar calcaneal spur and posterior calcaneal spur at the insertion of Achilles tendon. XR/XR foot LT min 3V IMPRESSION: 1. Left ankle. No acute abnormality. 2. Left foot. No acute abnormality. Degenerative change of the midfoot. Calcaneal spurs.
--- NOTE | ~2022-09-06 | XR_ITS ---
EXAMINATION: 1. RIGHT ANKLE. 2. RIGHT FOOT. CLINICAL INFORMATION: Fall. Pain. COMPARISON: Right lower leg 06/11/2018. Right ankle 01/05/2012 TECHNIQUE: 1. Right ankle. 3 views 2. Right foot. 3 views FINDINGS: 1. Right ankle. Chronic old deformity from prior fracture of the distal tibia and fibula. Bony ankylosis of the synchondrosis. No acute abnormality. No fracture or dislocation. Ankle mortise congruent. 2. Right foot. Minimally displaced intra-articular fracture involving the proximal phalanx of the fifth toe at the medial side of the bone. Large spur of the posterior calcaneus and large plantar calcaneal spur. Degenerative change of the talonavicular joint and navicular cuneiform articulation of the dorsum of the foot. XR/XR foot RT min 3V IMPRESSION: 1. Right ankle. No acute abnormality. Old healed fracture of the distal tibia and fibula. 2. Right foot. Minimally displaced intra-articular fracture of the proximal phalanx of fifth toe.
--- NOTE | ~2022-09-06 | XR_ITS ---
EXAMINATION: 1. RIGHT ANKLE. 2. RIGHT FOOT. CLINICAL INFORMATION: Fall. Pain. COMPARISON: Right lower leg 06/11/2018. Right ankle 01/05/2012 TECHNIQUE: 1. Right ankle. 3 views 2. Right foot. 3 views FINDINGS: 1. Right ankle. Chronic old deformity from prior fracture of the distal tibia and fibula. Bony ankylosis of the synchondrosis. No acute abnormality. No fracture or dislocation. Ankle mortise congruent. 2. Right foot. Minimally displaced intra-articular fracture involving the proximal phalanx of the fifth toe at the medial side of the bone. Large spur of the posterior calcaneus and large plantar calcaneal spur. Degenerative change of the talonavicular joint and navicular cuneiform articulation of the dorsum of the foot. XR/XR ankle RT min 3V IMPRESSION: 1. Right ankle. No acute abnormality. Old healed fracture of the distal tibia and fibula. 2. Right foot. Minimally displaced intra-articular fracture of the proximal phalanx of fifth toe.
--- NOTE | ~2022-09-06 | XR_ITS ---
EXAMINATION: XR knee RT 4V CLINICAL INFORMATION: Reason for Exam fall, PAIN COMPARISON: Knee radiographs 01/05/2012 TECHNIQUE: Four views of the knee FINDINGS: No acute fracture or dislocation. Status post total knee arthroplasty. No evidence of hardware fracture or complication. No joint effusion or soft tissue abnormality. XR/XR knee RT 4V IMPRESSION: Status post total knee arthroplasty. No evidence of hardware fracture or complication.
--- NOTE | ~2022-09-06 | CT_ITS ---
EXAMINATION: CT HEAD WITHOUT CONTRAST CT CERVICAL SPINE WITHOUT CONTRAST CLINICAL INFORMATION: Pain. Fall. COMPARISON: CT head 04/10/2009 TECHNIQUE: Imaging was performed from the skull base to vertex without intravenous administration of contrast. In addition, helical noncontrast CT imaging was acquired through the cervical spine and source images were reviewed along with axial reconstructions and sagittal and coronal MPRs. [This CT examination was performed using dose optimization techniques as appropriate, variously including the following: *Automated exposure control *Adjustment of mA and/or kV according to patient size (this includes techniques or standardized protocols for targeted exams where dose is matched to indication/reason for exam; i.e. extremities or head) *Use of iterative reconstruction technique] DLP: 1144 mGy-cm FINDINGS: HEAD: No intracranial mass, hemorrhage, or midline shift is visualized. There is generalized global volume loss. There is moderate prominence of the ventricles and the sulci . There is mild hypodensity of the periventricular white matter due to chronic small vessel ischemic disease. There are vascular calcifications of the internal carotid arteries bilaterally. Physiologic mineralization basal ganglia.. No extra-axial collections are identified. The paranasal sinuses and mastoid air cells are well aerated. CERVICAL SPINE: There is no evidence of acute cervical spine fracture. Vertebral bodies remain normal in height. Cervical vertebrae have normal alignment. There is multilevel degenerative spondylosis of the cervical spine with disc height narrowing and endplate spurs and facet joint arthrosis No pre- or paravertebral soft tissue abnormality is identified. Limited assessment of the lung apices is unremarkable. CT/CT cervical spine wo IV con IMPRESSION: 1. No acute intracranial pathology. 2. No CT evidence of acute cervical spine fracture or traumatic subluxation
--- NOTE | ~2022-09-06 | XR_ITS ---
EXAMINATION: XR knee LT 4V CLINICAL INFORMATION: Reason for Exam fall, PAIN COMPARISON: None. TECHNIQUE: Four views of the knee FINDINGS: No acute fracture or dislocation. Status post total knee arthroplasty. No evidence of hardware fracture or complication. No joint effusion or soft tissue abnormality. XR/XR knee LT 4V IMPRESSION: Status post total knee arthroplasty. No evidence of hardware fracture or complication.
[2022-09-06 18:48] VITALS: BP 140/80; BP 145/86; PULSE 85; PULSE 88; RESP 18; TEMP 37.1; O2SAT 97; BMI 36.1
--- NOTE | 2022-09-06 19:04 | ED_ITS ---
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 She couldn't get up on her own so she ended up crawling and was on the floor x 2 hours. She reports injury to her head and pain in both legs from the knees down. She has no other injuries. MD complaint: fall Onset (ago): hour(s) (2+) Fall from: out of bed Fall witnessed: no Place fall occurred: home Loss of consciousness: none Length of LOC: minutes(s) (2 hours) Prolonged down time: yes Symptoms prior to fall: none Context: other (had a dream she was sinking and fell out of bed) Location of injury: head Location of injury - extremities: right: knee, lower leg and foot Severity: moderate Quality: dull and aching Associated symptoms (after fall): headache and other (states both legs hurt to walk) Related Data Home Medications Medication Instructions Recorded Confirmed acetaminophen 500 mg tablet 500 mg PO Q8H PRN fever 03/18/22 albuterol sulfate 2.5 mg/3 mL mg inhalation QID PRN 03/18/22 (0.083 %) solution for nebulization albuterol sulfate 90 mcg/actuation 2 puff PO Q4-6H PRN 03/18/22 aerosol inhaler aspirin 81 mg tablet,delayed 81 mg PO DAILY 03/18/22 release atorvastatin 40 mg tablet 40 mg PO DAILY 03/18/22 atorvastatin 80 mg tablet 80 mg PO DAILY 03/18/22 blood sugar diagnostic (FreeStyle #10 ea 03/18/22 Lite Strips) calcium citrate 200 mg 2 tab PO BID 03/18/22 calcium-vitamin D3 6.25 mcg (250 unit) tablet (Christian Calcium-Vitamin D3) carvedilol 3.125 mg tablet 3.125 mg PO BID 03/18/22 diltiazem HCl 180 mg 180 mg PO DAILY 03/18/22 capsule,extended release 24 hr empagliflozin 25 mg tablet 25 mg PO DAILY 03/18/22 (Jardiance) ferrous sulfate 325 mg (65 mg 325 mg PO Q OTHER DAY 03/18/22 iron) tablet (FeroSul) fluticasone 250 mcg-salmeterol 50 1 ea PO 03/18/22 mcg/dose blistr powdr for inhalation (Advair Diskus) fluticasone propionate 50 spray intranasal 03/18/22 mcg/actuation nasal spray,suspension lancets 33 gauge (TRUEplus Lancets) #100 ea 03/18/22 losartan 100 1 tab PO DAILY 03/18/22 mg-hydrochlorothiazide 12.5 mg tablet metformin 850 mg tablet 850 mg PO DAILY 03/18/22 omeprazole 40 mg capsule,delayed 40 mg PO DAILY 03/18/22 release ropinirole 2 mg tablet 2 mg PO BEDTIME 03/18/22 sertraline 50 mg tablet 50 mg PO DAILY 03/18/22 tramadol 50 mg tablet 50 mg PO TID PRN 03/18/22 triamcinolone acetonide 0.1 % appl topical BID 03/18/22 topical cream Previous Rx's Medication Instructions Recorded lidocaine 5 % topical patch 1 patch topical DAILY #1 ea 08/11/20 (Lidoderm) lidocaine 5 % topical patch 1 patch topical DAILY #1 ea 08/11/20 (Lidoderm) clotrimazole 1 % topical cream 1 appl topical BID 2 weeks 11/07/20 (Lotrimin AF (clotrimazole)) cefuroxime axetil 250 mg tablet 250 mg PO BID 7 days #14 tabs 09/10/21 lidocaine 4 % topical patch 1 patch topical DAILY PRN pain #10 09/10/21 ea cyclobenzaprine 5 mg tablet 5 mg PO BID PRN muscle spasm #14 09/27/21 tabs cetirizine 10 mg tablet (Zyrtec) 10 mg PO DAILY PRN allergy 02/18/22 symptoms 30 days #30 tabs bisacodyl 5 mg tablet 10 mg PO BEDTIME #180 tabs 03/18/22 dicyclomine 10 mg capsule 10 mg PO BID PRN abdominal 03/18/22 discomfort #90 caps methylcellulose (laxative) 500 mg 500 mg PO DAILY #90 tabs 03/18/22 tablet (Citrucel) simethicone 125 mg capsule (Gas 125 mg PO TID-QID PRN abdominal 07/04/22 Relief (simethicone)) distention #120 caps docusate sodium 100 mg capsule 100 mg PO BID #180 caps 07/10/22 hydrocortisone 2.5 % topical cream 1 appl HI BID-QID PRN hemorrhoids 07/10/22 with perineal applicator #30 grams (Proctosol HC) sennosides 8.6 mg tablet (Natural 8.6 mg PO BID constipation #180 07/10/22 Senna Laxative) tabs menthol 0.44 %-zinc oxide 20.6 % 1 appl topical QID PRN Perianal 07/31/22 topical ointment in packet itching #504 grams (Calmoseptine) pyridoxine (vitamin B6) 100 mg 100 mg PO DAILY 90 days #90 tabs 08/11/22 tablet Allergies Allergy/AdvReac Type Severity Reaction Status Date / Time montelukast [Singulair] Allergy Unknown itching/marysol Verified 07/31/22 14:13 h From Singulair Allergy Intermediate RASH Uncoded 07/31/22 14:13 Review of Systems Review of Systems: Constitutional : No Fever, No Chills ENT/Mouth : No Ear Pain, No Hoarseness, No sore throat Eyes: No Eye Pain, No Swelling, No Redness, No Foreign Body Cardiovascular : No Chest Pain, No SOB Respiratory : No Cough, No Dyspnea Gastrointestinal : No Nausea, No Vomiting, No Diarrhea, No abdominal Pain Genitourinary : No Dysuria, No Hematuria Musculoskeletal : positive joint pain, No Myalgias, No Joint Swelling Skin : No Skin lacerations, No rash Neuro : No Weakness, No Numbness, No Loss of Consciousness, No Dizziness, pos Headache Psych : No Anxiety/Panic, No Depression Heme/Lymph: no easy bruising, no Lymphadenopathy Endocrine : No Polyuria, No Polydipsia All other systems reviewed and are negative [facility] Past Medical History Attestation statement: The following information was validated with the patient. Medical History Alcohol abuse Arthritis Asthma Atrial fibrillation COPD (chronic obstructive pulmonary disease) Diabetes Gout Hypertension Hypertension Knee arthropathy Nephrolithiasis Osteoarthritis Thrombosed external hemorrhoid Surgical History History of total knee arthroplasty Hx of colonoscopy Social History Social History Unable to assess alcohol history related to: Unknown Alcohol intake: never Patient Tobacco Use Status: Never used Tobacco Advance Directives: No Physical Exam Vital Signs: Vital Signs: Last Vital Signs Temp 98.7 F 09/06/22 18:48 Pulse 85 09/06/22 18:48 Resp 18 09/06/22 20:00 BP 145/86 H 09/06/22 18:48 Pulse Ox 97 09/06/22 18:48 O2 Del Method 09/06/22 20:00 BMI result Body Mass Index 36.1 Appearance: Alert. Oriented X3. No acute distress. Eyes: Pupils equal, round and reactive to light. ENT: Pharynx normal. bruising noted L eyebrow Neck: Normal inspection. Neck supple. no midline step offs CVS: Normal heart rate and rhythm. Pulses normal. Respiratory: No respiratory distress. Breath sounds normal. Abdomen: Soft and nontender. Skin: Skin warm and dry. Normal skin color. Normal skin turgor. Extremities: No lower extremity edema. contusion on 2nd and 3rd toes, ttp along bilateral knees/ankles, contusion R anterior carrillo small, distal NV intact, no obvious deformity, foot is warm and well perfused Neuro: Oriented X 3. No motor deficit. No sensory deficit. Course Course Course Narrative: Patient placed in physician observation at 1007pm. The indication for observation is that the patient needs more time for PT/CM to help with placement given frequent falls and concern for safety at home At this time the patient is well developed well nourished, lungs clear, CV RRR, abd nontender, neuro is intact. MDM - Fall MDM Narrative Medical decision making narrative: 77 yo female with hx of afib - states she is still on pradaxa though I cannot find a last fill, ETOH abuse, asthma, gout, kidney stone, hemorrhoids, lives alone presents with fall out of bed - at this time will need labs - CPK and CT head/cspine , xrays of lower legs and PO pain medications, dispo per results and findings. Reports a fall out fo bed after having a dream Lab Data Result diagrams: 09/06/22 19:51 09/06/22 20:42 Labs: Lab Results 09/06/22 09/06/22 09/06/22 Range/Units 19:51 19:51 20:42 WBC 9.8 (4.8-10.8) X10*3/uL RBC 4.25 (4.20-5.50) X10*6/uL Hgb 12.1 (12.0-16.0) g/dl Hct 37.5 (37.0-47.0) % MCV 88.2 (80.0-98.0) fL MCH 28.5 (27.0-33.0) pg MCHC 32.3 (31.0-35.0) g/dl RDW 12.6 (11.0-16.0) % Plt Count 332 (160-400) X10*3/uL MPV 10.1 (9.4-12.3) fL Immature Gran % (Auto) 0.3 (0.0-0.4) % Neut % (Auto) 78.3 H (45-73) % Lymph % (Auto) 10.8 L (20-40) % [place] % (Auto) 7.8 (2-11) % Eos % (Auto) 2.1 (0-4) % Baso % (Auto) 0.7 (0-2) % Lymph # (Auto) 1.1 L (1.2-4.9) X10*3/uL [place] # (Auto) 0.8 (0.1-1.2) X10*3/uL Eos # (Auto) 0.2 (0.0-0.4) X10*3/uL Baso # (Auto) 0.1 (0.0-0.2) X10*3/uL Abs Immat Gran (auto) 0.03 (0.00-0.03) X10*3/uL Absolute Neuts (auto) 7.7 (2.0-8.3) x10*3/uL Absolute Nucleated RBC 0.000 (0.0-0.012) X10*3/uL Nucleated RBC % (auto) 0.0 (0.0-0.2) /100WBC PT 10.9 (10.0-13.1) SEC INR 1.0 (0.9-1.1) Sodium 140 (135-145) mmol/L Potassium 4.5 (3.3-5.1) mmol/L Chloride 102 (96-108) mmol/L Carbon Dioxide 23 (22-29) mmol/L Anion Gap 20 (12-20) BUN 29 H D (9-16) mg/dL Creatinine 0.86 (0.5-1.4) mg/dL Estim Creat Clear Calc 60.4 Estimated GFR > 60 Random Glucose 151 H (60-115) mg/dL Calcium 8.9 D (8.4-10.2) mg/dL Total Creatine Kinase 418 H (26-140) U/L Discharge Plan Discharge Clinical Impression: Contusion of foot, right, Fracture of phalanx of toe, Falls frequently Patient Disposition: Still a Patient Additional Instructions: return to ED for any worsening symptoms or concerns Minimally displaced intra-articular fracture of the proximal phalanx of fifth toe. Prescriptions: No Action cetirizine [Zyrtec] 10 mg tablet 10 mg PO DAILY PRN (Reason: allergy symptoms) 30 Days Qty: 30 4RF simethicone [Gas Relief (simethicone)] 125 mg capsule 125 mg PO TID-QID PRN (Reason: abdominal distention) Qty: 120 2RF pyridoxine (vitamin B6) 100 mg tablet 100 mg PO DAILY 90 Days Qty: 90 3RF lidocaine [Lidoderm] 5 % adhesive patch,medicated 1 patch topical DAILY Qty: 1 0RF Rx Instructions: leave on most painful area for up to 12 hrs lidocaine [Lidoderm] 5 % adhesive patch,medicated 1 patch topical DAILY Qty: 1 0RF Rx Instructions: leave on most painful area for up to 12 hrs clotrimazole [Lotrimin AF (clotrimazole)] 1 % cream 1 appl topical BID 14 Days 0RF cefuroxime axetil 250 mg tablet 250 mg PO BID 7 Days Qty: 14 0RF lidocaine 4 % adhesive patch,medicated 1 patch topical DAILY PRN (Reason: pain) Qty: 10 0RF Rx Instructions: may leave on for up to 12 hrs cyclobenzaprine 5 mg tablet 5 mg PO BID PRN (Reason: muscle spasm) Qty: 14 0RF tramadol 50 mg tablet 50 mg PO TID PRN fluticasone propionate 50 mcg/actuation spray,suspension intranasal aspirin 81 mg tablet,delayed release (DR/EC) 81 mg PO DAILY albuterol sulfate 2.5 mg /3 mL (0.083 %) solution for nebulization inhalation QID PRN fluticasone propion-salmeterol [Advair Diskus] 250-50 mcg/dose blister with device 1 ea PO atorvastatin 80 mg tablet 80 mg PO DAILY (DME) lancets [TRUEplus Lancets] 33 gauge misc See Rx Instructions Not Applicable BID Qty: 100 Rx Instructions: As directed diltiazem HCl 180 mg capsule,extended release 24hr 180 mg PO DAILY (DME) FreeStyle Lite Strips Strip See Rx Instructions Not Applicable BID Qty: 10 Rx Instructions: As directed acetaminophen 500 mg tablet 500 mg PO Q8H PRN (Reason: fever) metformin 850 mg tablet 850 mg PO DAILY atorvastatin 40 mg tablet 40 mg PO DAILY ferrous sulfate [FeroSul] 325 mg (65 mg iron) tablet 325 mg PO Q OTHER DAY losartan-hydrochlorothiazide 100-12.5 mg tablet 1 tab PO DAILY sertraline 50 mg tablet 50 mg PO DAILY triamcinolone acetonide 0.1 % cream topical BID carvedilol 3.125 mg tablet 3.125 mg PO BID calcium citrate-vitamin D3 [Christian Calcium-Vitamin D3] 200 mg-6.25 mcg (250 unit) tablet 2 tab PO BID Jardiance 25 mg tablet 25 mg PO DAILY ropinirole 2 mg tablet 2 mg PO BEDTIME omeprazole 40 mg capsule,delayed release(DR/EC) 40 mg PO DAILY albuterol sulfate 90 mcg/actuation HFA aerosol inhaler 2 puff PO Q4-6H PRN Citrucel 500 mg tablet 500 mg PO DAILY Qty: 90 2RF Rx Instructions: take it with full glass of water dicyclomine 10 mg capsule 10 mg PO BID PRN (Reason: abdominal discomfort) Qty: 90 2RF bisacodyl 5 mg tablet 10 mg PO BEDTIME Qty: 180 1RF docusate sodium 100 mg capsule 100 mg PO BID Qty: 180 3RF hydrocortisone [Proctosol HC] 2.5 % cream with perineal applicator 1 appl HI BID-QID PRN (Reason: hemorrhoids) Qty: 30 3RF sennosides [Natural Senna Laxative] 8.6 mg tablet 8.6 mg PO BID Qty: 180 3RF Calmoseptine 0.44-20.6 % ointment in packet 1 appl topical QID PRN (Reason: Perianal itching) Qty: 504 0RF
[2022-09-06 19:56] LABS: MANUAL DIFF FLAG NO
[2022-09-06 19:57] LABS: Basophils Absolute Auto 0.1 X10*3/uL (0.0-0.2); Basophils Percent Auto 0.7 % (0-2); Eosinophils Absolute Auto 0.2 X10*3/uL (0.0-0.4); Eosinophils Percent Auto 2.1 % (0-4); Hematocrit 37.5 % (37.0-47.0); Hemoglobin 12.1 g/dl (12.0-16.0); Imm Gran Abs Auto 0.03 X10*3/uL (0.00-0.03); Imm Gran Pct Auto 0.3 % (0.0-0.4); Lymphocytes Absolute Auto 1.1 X10*3/uL (1.2-4.9); Lymphocytes Percent Auto 10.8 % (20-40); Mean Corpuscular HGB Conc 32.3 g/dl (31.0-35.0); Mean Corpuscular Hemoglobin 28.5 pg (27.0-33.0); Mean Corpuscular Volume 88.2 fL (80.0-98.0); Mean Platelet Volume 10.1 fL (9.4-12.3); Monocytes Absolute Auto 0.8 X10*3/uL (0.1-1.2); Monocytes Percent Auto 7.8 % (2-11); Neutrophils Absolute Auto 7.7 x10*3/uL (2.0-8.3); Neutrophils Percent Auto 78.3 % (45-73); Platelet Count 332 X10*3/uL (160-400); Red Blood Count 4.25 X10*6/uL (4.20-5.50); Red Cell Distribution Width 12.6 % (11.0-16.0); White Blood Count 9.8 X10*3/uL (4.8-10.8)
[2022-09-06 20:00] VITALS: RESP 18
[2022-09-06 20:03] LABS: Prothrombin Time 10.9 SEC (10.0-13.1)
[2022-09-06] MEDS: oxyCODONE HCl Immed Release 5 MG TABLET 10 MG PO (20:25)
[2022-09-06 21:14] LABS: Anion Gap 20 (12-20); Blood Urea Nitrogen 29 mg/dL (9-16); Calcium 8.9 mg/dL (8.4-10.2); Carbon Dioxide 23 mmol/L (22-29); Chloride 102 mmol/L (96-108); Creatinine Clr Calc Pharmacy 60.4; Estimated Glomerular Filt Rate > 60; Glucose Random 151 mg/dL (60-115); Potassium 4.5 mmol/L (3.3-5.1); Sodium 140 mmol/L (135-145)
[2022-09-06 22:22] LABS: COVID-19 Test Negative (Negative)
[2022-09-06 23:41] VITALS: BP 135/66; PULSE 48; RESP 14; TEMP 36.2; O2SAT 96
[2022-09-07] MEDS: Acetaminophen 325 MG TABLET 650 MG PO (03:31)
[2022-09-07] MEDS: oxyCODONE HCl Immed Release 5 MG TABLET PO (03:31)
--- NOTE | 2022-09-07 03:34 | PC.NURSE ---
This RN did rounding on patient and found her crying rocking back and forth, call cantu is in reach but patient did not use it to call staff. Patient medicated with PRN pain meds and was retaught how to use call cantu to call staff.
[2022-09-07 03:39] VITALS: BP 122/74; PULSE 50; RESP 22; TEMP 36.9; O2SAT 100
[2022-09-07 07:21] VITALS: BP 148/66; PULSE 58; RESP 14; TEMP 36.6; O2SAT 95
[2022-09-07] MEDS: Furosemide 40 MG TABLET 80 MG PO (07:54)
[2022-09-07 07:59] VITALS: PULSE 75; RESP 20; O2SAT 96
[2022-09-07] MEDS: Fluticasone/Vilanterol 100/25 BLST.W.DEV 1 PUFF INHALE (08:04)
--- NOTE | 2022-09-07 08:20 | PC.NURSE ---
patient primarily Maltese speaking only . assessed using vegetable farm manager . jason . lungs diminished wheezes noted upper lobes . R.T. at bedside , administered inhaler as ordered . heart rate regular at 60 beats per minute . skin pink warm and dry . patent has edema noted in her lower ankles bilaterally that is non pitting . patient ambulates with use of cane . patient reports pain level of 2 out of 10 on right great toe bruise noted from previous trauma . She reports stubbing it on something before coming to the hospital . Abdomen ids soft . not tender . positive bowel sound in all four quadrants . patient is aware of plan of care .
[2022-09-07] MEDS: Pyridoxine HCl (Vitamin B6) 50 MG TABLET 100 MG PO (09:26)
[2022-09-07] MEDS: Sertraline HCL 50 MG TABLET PO (09:26)
[2022-09-07] MEDS: Docusate Sodium 100 MG CAPSULE PO (09:26)
[2022-09-07] MEDS: Aspirin Enteric Coated 81 MG TABLET.DR PO (09:26)
[2022-09-07] MEDS: hydroCHLOROthiazide 12.5 MG TABLET PO (09:27)
[2022-09-07] MEDS: dilTIAZem HCL CD 180 MG CAP.ER.24H PO (09:27)
[2022-09-07] MEDS: Ferrous Sulfate 324 MG TABLET.DR PO (09:27)
[2022-09-07] MEDS: Losartan Potassium 50 MG TABLET 100 MG PO (09:27)
[2022-09-07] MEDS: Empagliflozin 25 MG TABLET PO (10:06)
--- NOTE | 2022-09-07 11:51 | MHC.CM.ED ---
Received case management consult overnight. Patient came to the ER due to a fall. Work up essentially negative. Met with patient and daughter, Merced, in regards of discharge planning. Patient's primary language is Italian. 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 Patient lives with her daughter. Patient and Merced feel patient can safely return home. Joanne TABARES and Nona AMEZCUA aware. Continue to monitor for d/c needs.
--- NOTE | 2022-09-07 12:53 | PC.NURSE ---
patient a/ox4 . went over discharge instructions as ordered by provider with use of satellite television installer . patient to return if symptoms worsen . no questions at this time .
== END 2022-09-07 12:55 | disposition home or self-care (01) ==
PROVIDERS: Emergency Provider Emergency Medicine; PCP Nurse Practitioner
DX: S92.911A Unspecified fracture of right toe(s), initial encounter for closed fracture (principal); S90.31XA Contusion of right foot, initial encounter; R51.9 Headache, unspecified; M54.2 Cervicalgia; M79.672 Pain in left foot; R26.2 Difficulty in walking, not elsewhere classified; W01.0XXA Fall on same level from slipping, tripping and stumbling without subsequent striking against object, initial encounter; Y93.9 Activity, unspecified; Y92.9 Unspecified place or not applicable; Y99.9 Unspecified external cause status; Z20.822 Contact with and (suspected) exposure to COVID-19; Z79.899 Other long term (current) drug therapy
CPT/HCPCS: 36415; 70450; 72125; 73564; 73610; 73630; 80048; 82550; 85025; 85610; 87635; 94640; 99285

== ENCOUNTER 2022-10-14 17:23 | Emergency (ER) | payer OTHER, MEDICAID, SELFPAY ==
--- NOTE | ~2022-10-14 | CT_ITS ---
EXAMINATION: HEAD CT WITHOUT CONTRAST CERVICAL SPINE CT WITHOUT CONTRAST CLINICAL INFORMATION: Fall, blood thinners COMPARISON: CT 09/06/2022 TECHNIQUE: Contiguous axial imaging of the head was performed without the administration of IV contrast. Axial multidetector volumetric images were also performed through the cervical spine without contrast. Multiplanar reconstructed images in coronal and sagittal orientations were submitted. DOSE: 1031 mGy-cm FINDINGS: HEAD: There is no evidence of acute intracranial hemorrhage or edematous territorial infarction. No abnormal mass-effect or midline shift. No extra-axial fluid collections. Gonzalez to white matter differentiation is well preserved. Commensurate prominence of the ventricles and sulci is compatible with generalized parenchymal volume loss. There is periventricular and subcortical white matter hypoattenuation, most likely representing microangiopathic disease. Bilateral basal ganglia mineralization, similar to previous. No acute calvarial fracture.. The sinuses and mastoid air cells are clear. CERVICAL SPINE: Straightening of the cervical curvature. Mild leftward curvature of the cervical spine. Diffuse bone demineralization. There is anatomic alignment of the vertebral bodies and posterior elements. The atlantoaxial and atlantooccipital articulations are maintained. No acute fractures identified. Multilevel cervical spondylosis. Multilevel disc degenerative changes, including severe disc degeneration at C6-C7. Severe disc degeneration in the upper thoracic spine. Vertebral body heights and intervertebral disc spaces are maintained. No evidence of acute fracture. No prevertebral soft tissue swelling. Limited evaluation lung apices, without gross abnormality. No suspicious thyroid findings seen. CT/CT cervical spine wo IV con IMPRESSION: 1. No CT evidence of acute intracranial pathology. 2. No CT evidence of acute fracture or traumatic subluxation the cervical spine. 3. Extensive spondylosis in the visualized spine..
--- NOTE | ~2022-10-14 | XR_ITS ---
EXAMINATION: XR KNEE, LEFT CLINICAL INFORMATION: Pain, fall. COMPARISON: None TECHNIQUE: Four views of the left knee. FINDINGS: Total knee arthroplasty present with usual position and alignment. Arthroplasty components are well-seated. No acute fractures identified. No suspicious musa-hardware lucency seen. No significant joint effusion is seen. The fibula appears intact. There is a prominent soft tissue swelling along the anterior aspect of the proximal tibia. XR/XR knee LT 4V IMPRESSION: Total knee arthroplasty without radiographic evidence of acute osseous abnormality. No significant joint effusion is seen. Significant soft tissue swelling along the anterior aspect of the proximal tibia.
[2022-10-14 18:23] VITALS: BP 130/70; PULSE 64; O2SAT 96
[2022-10-14 20:23] VITALS: BP 131/69; PULSE 56; RESP 18; TEMP 36.1; O2SAT 99; BMI 37.5
--- NOTE | 2022-10-14 20:25 | ED.GENADULT ---
HPI - General Adult General Chief complaint: General Medical Stated complaint: rt knee pain fall Source: patient and family (Daughter) Mode of arrival: EMS History of Present Illness HPI narrative: See course Section Related Data Home Medications Medication Instructions Recorded Confirmed acetaminophen 500 mg tablet 1 tab PO Q8H PRN fever 09/06/22 09/06/22 albuterol sulfate 2.5 mg/3 mL 1 amp inhalation QID PRN Wheezing 09/06/22 09/06/22 (0.083 %) solution for nebulization alendronate 70 mg tablet 1 tab PO QWEEK 09/06/22 09/06/22 aspirin 81 mg tablet,delayed 1 tab PO DAILY 09/06/22 09/06/22 release blood sugar diagnostic ([facility] 09/06/22 09/06/22 Verio test strips) blood-glucose meter ([facility] 09/06/22 09/06/22 Verio Flex Meter) cetirizine 10 mg tablet 1 tab PO DAILY PRN allergies 09/06/22 09/06/22 dicyclomine 10 mg capsule 1 cap PO BID PRN abdominal pain 09/06/22 09/06/22 diltiazem HCl 180 mg 1 cap PO DAILY 09/06/22 09/06/22 capsule,extended release 24 hr (Cartia XT) docusate sodium 100 mg capsule 1 cap PO BID 09/06/22 09/06/22 empagliflozin 25 mg tablet 1 tab PO QAM 09/06/22 09/06/22 (Jardiance) ferrous sulfate 325 mg (65 mg 1 tab PO Q OTHER DAY 09/06/22 09/06/22 iron) tablet (FeroSul) fluticasone 250 mcg-salmeterol 50 1 puff inhalation BID 09/06/22 09/06/22 mcg/dose blistr powdr for inhalation (Advair Diskus) fluticasone propionate 50 2 spray intranasal DAILY 09/06/22 09/06/22 mcg/actuation nasal spray,suspension furosemide 80 mg tablet 1 tab PO BID 09/06/22 09/06/22 lancets 33 gauge ([employer] 09/06/22 09/06/22 Plus Lancet) losartan 100 1 tab PO DAILY 09/06/22 09/06/22 mg-hydrochlorothiazide 12.5 mg tablet methylcellulose (laxative) 500 mg 1 tab PO DAILY 09/06/22 09/06/22 tablet (Fiber Laxative (methylcellulose)) pyridoxine (vitamin B6) 100 mg 1 tab PO DAILY 09/06/22 09/06/22 tablet sennosides 8.6 mg tablet (senna) 1 tab PO BID PRN constipation 09/06/22 09/06/22 sertraline 50 mg tablet 50 mg PO DAILY 09/06/22 09/06/22 simethicone 125 mg capsule (Gas 1 cap PO TID-QID PRN Indigestion 09/06/22 09/06/22 Relief Extra Strength) tramadol 50 mg tablet 1 tab PO TID PRN pain 09/06/22 09/06/22 Previous Rx's Medication Instructions Recorded acetaminophen 500 mg tablet 1,000 mg PO Q6H PRN pain #90 tabs 10/14/22 (Acetaminophen Pain Relief) Allergies Allergy/AdvReac Type Severity Reaction Status Date / Time montelukast [Singulair] Allergy Unknown itching/marysol Verified 10/14/22 20:26 h From Singulair Allergy Intermediate RASH Uncoded 07/31/22 14:13 Review of Systems Review of Systems: See course Section PMF Past Medical History Source: nursing notes reviewed Medical History Alcohol abuse Arthritis Asthma Atrial fibrillation COPD (chronic obstructive pulmonary disease) Diabetes Gout Hypertension Hypertension Knee arthropathy Nephrolithiasis Osteoarthritis Thrombosed external hemorrhoid Surgical History History of total knee arthroplasty Hx of colonoscopy Social History Social History Unable to assess alcohol history related to: Unknown Alcohol intake: never Patient Tobacco Use Status: Never used Tobacco Advance Directives: No Advance Directives Information Provided: No Physical Exam ED Vital Signs: See course Section Course Course Course Narrative: 77F was stepping off the elevator which stopped slightly below the level of the floor and patient caught her foot on the edge in fell forward onto her left knee with positive head strike but no LOC. Patient complaint of left knee pain and on Pradaxa. VS Reviewed GEN: NAD HEAD: NC/AT THROAT: wnl LUNGS: CTAB CVS: RRR ABD: NT/ND LEFT KNEE: Very mild swelling Review of all investigations negative for acute findings, patient will be discharged home in stable condition with instructions to use ice for the knee as well as Tylenol. Discharge Plan Discharge Clinical Impression: Fall Patient Disposition: Home, Self-Care Instructions: Fall Prevention for Older Adults (ED) Additional Instructions: 1. Resume all home medications as prescribed. 2. Tylenol 1000 mg, orally, every 6 hours as needed for pain control. Do not exceed 4000 mg within 24 hours. 3. Apply ice to unexposed skin to the left knee, 10-15 minutes, 3 to 4 times a day. 4. Follow-up with primary care provider in the next 1-2 days for re-evaluation further outpatient management. Return to the ER for any worsening symptoms, inability to speak or walk. Prescriptions: New acetaminophen [Acetaminophen Pain Relief] 500 mg tablet 1,000 mg PO Q6H PRN (Reason: pain) Qty: 90 0RF No Action fluticasone propion-salmeterol [Advair Diskus] 250-50 mcg/dose blister with device 1 puff INHALATION BID sennosides [senna] 8.6 mg tablet 1 tab PO BID PRN (Reason: constipation) albuterol sulfate 2.5 mg /3 mL (0.083 %) solution for nebulization 1 amp inhalation QID PRN (Reason: Wheezing) (DME) blood-glucose meter [[employer] Verio Flex meter] [facility] MISCELLANEOUS DIRECTED cetirizine 10 mg tablet 1 tab PO DAILY PRN (Reason: allergies) diltiazem HCl [Cartia XT] 180 mg capsule,extended release 24hr 1 cap PO DAILY alendronate 70 mg tablet 1 tab PO QWEEK simethicone [Gas Relief Extra Strength] 125 mg capsule 1 cap PO TID-QID PRN (Reason: Indigestion) (DME) [employer] Verio test strips Strip MISCELLANEOUS BID aspirin 81 mg tablet,delayed release (DR/EC) 1 tab PO DAILY tramadol 50 mg tablet 1 tab PO TID PRN (Reason: pain) acetaminophen 500 mg tablet 1 tab PO Q8H PRN (Reason: fever) furosemide 80 mg tablet 1 tab PO BID ferrous sulfate [FeroSul] 325 mg (65 mg iron) tablet 1 tab PO Q OTHER DAY Fiber Laxative (methylcellulo) 500 mg tablet 1 tab PO DAILY docusate sodium 100 mg capsule 1 cap PO BID pyridoxine (vitamin B6) 100 mg tablet 1 tab PO DAILY fluticasone propionate 50 mcg/actuation spray,suspension 2 spray intranasal DAILY sertraline 50 mg tablet 50 mg PO DAILY dicyclomine 10 mg capsule 1 cap PO BID PRN (Reason: abdominal pain) losartan-hydrochlorothiazide 100-12.5 mg tablet 1 tab PO DAILY (DME) lancets [OneTouch Delica Plus Lancet] 33 gauge misc MISCELLANEOUS BID Jardiance 25 mg tablet 1 tab PO QAM Print Language: German
== END 2022-10-14 20:50 | disposition home or self-care (01) ==
PROVIDERS: Emergency Provider Student in an Organized Health Care Education/Training Program
DX: M25.561 Pain in right knee (principal); M54.2 Cervicalgia; R51.9 Headache, unspecified; Z79.899 Other long term (current) drug therapy
CPT/HCPCS: 70450; 72125; 73564; 99282; 99284

== ENCOUNTER 2022-10-23 10:15 | Outpatient (REF) | payer OTHER, MEDICAID, SELFPAY ==
--- NOTE | ~2022-10-23 | XR_ITS ---
EXAMINATION: XR FOOT, LEFT XR TIBIA AND FIBULA, LEFT CLINICAL INFORMATION: Pain. COMPARISON: 09/06/2022 TECHNIQUE: AP and lateral views of the left tibia and fibula. 3 views of the left foot. FINDINGS: AP and lateral views of the left tibia and fibula demonstrate patient to be status post left total knee arthroplasty. No acute fracture or dislocation of the left tibia or fibula is identified. No destructive bony lesion is seen. There is edema about the lower leg. Views of the left foot again demonstrate the articular irregularity about the lateral aspect base of the 3rd middle phalanx. No acute fracture or dislocation is evident. There are prominent calcaneal spurs sites of insertion of Achilles and plantar tendons. There is dorsal spurring seen at the talonavicular joint. There is dorsal spurring with some irregularity about the dorsum of the tarsometatarsal joints. There is dorsal edema about the metatarsals. These findings are stable. XR/XR foot LT min 3V IMPRESSION: No significant abnormality of the left tibia or fibula, status post left total knee arthroplasty. Degenerative change of the left foot as described without acute fracture or dislocation.
--- NOTE | ~2022-10-23 | XR_ITS ---
EXAMINATION: XR FOOT, LEFT XR TIBIA AND FIBULA, LEFT CLINICAL INFORMATION: Pain. COMPARISON: 09/06/2022 TECHNIQUE: AP and lateral views of the left tibia and fibula. 3 views of the left foot. FINDINGS: AP and lateral views of the left tibia and fibula demonstrate patient to be status post left total knee arthroplasty. No acute fracture or dislocation of the left tibia or fibula is identified. No destructive bony lesion is seen. There is edema about the lower leg. Views of the left foot again demonstrate the articular irregularity about the lateral aspect base of the 3rd middle phalanx. No acute fracture or dislocation is evident. There are prominent calcaneal spurs sites of insertion of Achilles and plantar tendons. There is dorsal spurring seen at the talonavicular joint. There is dorsal spurring with some irregularity about the dorsum of the tarsometatarsal joints. There is dorsal edema about the metatarsals. These findings are stable. XR/XR tibia fibula LT 2V IMPRESSION: No significant abnormality of the left tibia or fibula, status post left total knee arthroplasty. Degenerative change of the left foot as described without acute fracture or dislocation.
== END 2022-10-23 10:16 | disposition home or self-care (01) ==
LOC: HO.HOSX 10:15
PROVIDERS: Visit Provider Physician Assistant
DX: M79.672 Pain in left foot (principal); M79.605 Pain in left leg; M79.604 Pain in right leg; S80.12XA Contusion of left lower leg, initial encounter; X58.XXXA Exposure to other specified factors, initial encounter; Y93.9 Activity, unspecified; Y92.9 Unspecified place or not applicable; Y99.9 Unspecified external cause status; Z79.899 Other long term (current) drug therapy; Z96.653 Presence of artificial knee joint, bilateral
CPT/HCPCS: 73590; 73630; 99202

== ENCOUNTER → 2022-10-27 10:23 | Outpatient (BNVA) | payer OTHER, MEDICAID, SELFPAY | PROVIDERS: Visit Provider Nurse Practitioner Family | DX: K59.04 Chronic idiopathic constipation (principal); K21.9 Gastro-esophageal reflux disease without esophagitis | CPT/HCPCS: 99212 ==

== ENCOUNTER 2022-10-28 12:00 | Outpatient (RCR) | payer OTHER, MEDICAID, SELFPAY ==
[2022-10-14 12:01] VITALS: BP 144/71
--- NOTE | 2022-10-14 13:49 | MHC.PT.EP ---
[facility] [place] Office [place] Office [place] Office [address] Fernando Narayan [address] [phone] F: [phone] F: [phone] F: [phone] F: [phone] Physical Therapy Plan of Care Date of Evaluation: Date of Surgery: N/A Diagnosis: Generalized weakness s/p fall, unsteady gait Assessment: Pt is a pleasant 77yo F who presents to PT with generalized weakness and multiple falls. She presents to PT with current impairments in decreased LE strength, decreased endurance, decreased standing tolerance, decreased balance and impaired gait. She is limited functionally by prolonged standing, walking, bending/squatting, and stair navigation. She is a good candidate for skilled PT in order to address current impairments to facilitate return to PLOF. She is recommended to be seen 2x/week for 4 weeks and will be reassessed at that time. Frequency and Duration: The patient will be seen 2x/week for 4 weeks Short Term Goals: Pt will be I with HEP to promote self management of symptoms Pt will perform standing unsupported for 60 sec Custodial Goals: Pt will improve quad strength to at least 4+/5 B to assist with prolonged standing and walking Pt will demonstrate improvements in LE strength and endurance as evidenced by improvement in 30 second sit to stand to 5 repetitions Pt will demonstrate ability to ascend/descend 5 stairs with reciprocal pattern Treatment Plan: Modalities to reduce pain, spasms and effusion. Manual therapy to restore motion and function. Therapeutic exercise to improve strength and flexibility. Neuromuscular re-education for posture and balance. Therapeutic activities to return to functional activities of daily living. Electronically signed by: Elsa García, PT, DPT Please sign and return to therapist. Thank you for your referral.
--- NOTE | 2022-11-06 12:36 | MHC.PT.DC ---
[facility] [place] Office [place] Office [place] Office [address] Fernando Narayan [address] [phone] F: [phone] F: [phone] F: [phone] F: [phone] Physical Therapy Discharge Report Diagnosis: Generalized weakness s/p fall, unsteady gait Date of Surgery: N/A Date of Evaluation: 10/14/22 Date of Discharge: 11/06/22 Treatments to Date: 2 Cancellations to Date: 2 No Shows to Date: 4 Discharge Status: Visit Non-compliance Discharge Summary: Pt was seen for PT from 10/14/22-10/28/22. She attended 2 PT appointments. She has had 2 cancellations and 4 no-show appointments since SOC, including a no-show appointment for her last scheduled appointment today. Pt is being D/C from skilled PT per [facility] attendance policy and visit non-compliance. Pt current level of function unknown at this time. Electronically signed by: Elsa García, PT, DPT Please sign and return to therapist. Thank you for your referral.
== END 2022-11-06 12:37 | disposition home or self-care (01) ==
LOC: HO.PT 12:00
PROVIDERS: PCP Registered Nurse; Visit Provider Registered Nurse
DX: R53.1 Weakness (principal); Z91.81 History of falling
CPT/HCPCS: 97110; 97162

== ENCOUNTER → 2022-11-25 11:24 | Outpatient (BNVA) | payer OTHER, MEDICAID, SELFPAY | PROVIDERS: Visit Provider Surgery Vascular Surgery | DX: I83.11 Varicose veins of right lower extremity with inflammation (principal) | CPT/HCPCS: 99202 ==

== ENCOUNTER 2022-12-19 09:44 | Inpatient (IN) | payer OTHER, SELFPAY ==
--- NOTE | ~2022-12-19 | XR_ITS ---
EXAMINATION: XR CHEST CLINICAL INFORMATION: Shortness of breath COMPARISON: CXR from 12/24/2020. Abdomen CT from 12/19/2022. TECHNIQUE: Frontal view of the chest was obtained. FINDINGS: Lungs are well expanded. A few linear opacities of atelectasis are present at the lung bases. The airway jorge appear to be diffusely thickened. This is a nonspecific finding. It could be a manifestation of airway inflammation or edema along the peribronchial interstitium. On the CT images through lung bases obtained on 12/19/2022, findings include peripheral septal thickening in each lower lobe. Cardiac silhouette is mildly enlarged. No overt consolidation. No pleural effusion. The visualized bones are intact. XR/XR chest 1V IMPRESSION: Mild cardiomegaly and diffuse interstitial prominence which likely represents interstitial edema, based on findings seen in lung bases on abdomen CT of 12/19/2022. No pleural effusion.
--- NOTE | ~2022-12-19 | CT_ITS ---
EXAMINATION: CT ABDOMEN AND PELVIS WITHOUT CONTRAST CLINICAL INFORMATION: Abdominal pain. History of kidney stones. COMPARISON: 09/10/2021 TECHNIQUE: Multidetector volumetric imaging was performed from the superior aspect of the liver through the pubic symphysis. Sagittal and coronal reformatted images were obtained on the technologist's workstation. This CT examination was performed using dose optimization techniques as appropriate, variously including the following: *Automated exposure control *Adjustment of mA and/or kV according to patient size (this includes techniques or standardized protocols for targeted exams where dose is matched to indication/reason for exam; i.e. extremities or head) *Use of iterative reconstruction technique DLP: 195 mGy-cm FINDINGS: LUNG BASES: Bibasilar atelectasis. Minimal coronary artery calcification. LIVER, GALLBLADDER, AND BILIARY TREE: The liver is normal in size, shape, and attenuation. No focal hepatic lesion or biliary ductal dilatation is present. The gallbladder is unremarkable with no evidence of radiopaque gallstones, gallbladder wall thickening, or obvious pericholecystic inflammatory changes. PANCREAS: Unremarkable. SPLEEN: Unremarkable. ADRENAL GLANDS: Unremarkable. KIDNEYS AND URETERS: The kidneys are normal in size, shape, and attenuation. There is a prominent exophytic left midpole renal cyst with a thin rim of calcification. This is unchanged from previous. Mild left hydronephrosis with dilated renal pelvis. The ureter is decompressed. There is a nonobstructing left lower pole 0.8 cm calculus which is 12 cm from the posterior axillary line. This measures 685 Hounsfield units. On the right there is mild hydronephrosis with dilatation of the renal pelvis. The ureter is decompressed. No right-sided calculi are seen. BLADDER: Unremarkable. GASTROINTESTINAL TRACT: The stomach is unremarkable. Normal caliber of the small bowel. No obstruction. Normal appendix. No colonic wall thickening or inflammation. Scattered diverticulosis which is greatest at the sigmoid colon. No diverticulitis. No free air or free fluid. ABDOMINAL WALL: Small fat-containing bilateral inguinal hernias. LYMPH NODES: Normal. VASCULAR: Normal caliber aorta. Mild atherosclerotic calcification. PELVIC VISCERA: Uterus not seen. No adnexal mass. OSSEOUS STRUCTURES: No acute or suspicious osseous abnormality. Degenerative changes throughout the spine. CT/CT abdomen pelvis wo IV con IMPRESSION: 1. Mild bilateral hydronephrosis with dilated renal pelvises. These could be UPJ obstructions. The ureters are decompressed. No obstructing calculi are seen. 2. Nonobstructing left lower pole renal calculus. 3. Colonic diverticulosis without diverticulitis. Fleischner guidelines were followed.
--- NOTE | ~2022-12-19 | FL_ITS ---
EXAMINATION: XR FLUOROSCOPY WITH IMAGES CLINICAL INFORMATION: Cystoscopy COMPARISON: 10/24/2019 TECHNIQUE: Fluoroscopy Supervised By: Dr. Lior Tellez. Fluoroscopy Time: 132.8 seconds. Cumulative Dose: 60.65 mGy. Images: 7. FINDINGS: The ureters are cannulated with injection of contrast. On final images there are bilateral ureteral stents in place. FL/FL guidance in OR IMPRESSION: Fluoroscopic guidance for bilateral ureteral stent placement. Please refer to procedural report for further information.
[2022-12-19 09:52] VITALS: BP 149/66; PULSE 68; RESP 18; TEMP 36.6; O2SAT 96; BMI 36.6
[2022-12-19 10:27] LABS: Hematocrit 35.6 % (37.0-47.0); Hemoglobin 11.5 g/dl (12.0-16.0); Mean Corpuscular HGB Conc 32.3 g/dl (31.0-35.0); Mean Corpuscular Hemoglobin 28.2 pg (27.0-33.0); Mean Corpuscular Volume 87.3 fL (80.0-98.0); Platelet Count 246 X10*3/uL (160-400); Red Blood Count 4.08 X10*6/uL (4.20-5.50); Red Cell Distribution Width 12.5 % (11.0-16.0); White Blood Count 6.5 X10*3/uL (4.8-10.8)
[2022-12-19 10:45] LABS: Anion Gap 17 (12-20); Blood Urea Nitrogen 42 mg/dL (9-16); Calcium 9.2 mg/dL (8.4-10.2); Carbon Dioxide 26 mmol/L (22-29); Chloride 102 mmol/L (96-108); Creatinine Clr Calc Pharmacy 22.5; Estimated Glomerular Filt Rate 22; Glucose Random 170 mg/dL (60-115); Potassium 4.2 mmol/L (3.3-5.1); Sodium 141 mmol/L (135-145)
[2022-12-19 14:31] LABS: Alanine Aminotransferase 16 U/L (0-31); Albumin Level 3.9 g/dL (3.5-5.0); Alkaline Phosphatase 102 U/L (39-117); Aspartate Amino Transferase 20 U/L (5-31); Bilirubin Direct < 0.2 mg/dL (0.0-0.5); Bilirubin Total 0.6 mg/dL (0.0-1.0); Lipase 16 U/L (8-78); Magnesium 2.3 mg/dL (1.6-2.6); Total Protein 6.7 g/dL (6.5-8.0)
[2022-12-19 16:08] VITALS: BP 191/86; PULSE 114; RESP 20; O2SAT 95
--- NOTE | 2022-12-19 16:16 | PC.NURSE ---
r abd pain constatnt since last night, came back from bathroom ua sent, c/o sob and used inhaler w relief, ls slightly dim but clear, skin wpd, sr on monitor
[2022-12-19 16:21] LABS: Appearance Urine Clear; Color Urine Yellow; Glucose Urine UA Negative (Negative); Leukocyte Esterase Urine Large (3+) (Negative); Nitrite Urine Negative (Negative); Specific Gravity - Urine 1.015 (1.005-1.025); UMIC TRIGGER UACC YES; Urine Blood Trace (Negative); Urine Ketones Negative (Negative); Urine Protein Negative (Neg-Trace)
[2022-12-19 16:25] LABS: Hyaline Casts Urine 0-2 /LPF (0-2); UACC Culture Trigger YES
[2022-12-19 16:28] LABS: Bacteria Urine Trace (None Seen)
[2022-12-19] MEDS: 0.9 % Sodium Chloride 500 ML 999 ML IV (17:40)
[2022-12-19] MEDS: Ketorolac Tromethamine 30 MG/ML VIAL 15 MG IVPUSH (17:40)
[2022-12-19] MEDS: cefTRIAXone sodium 1 GM in 0.9 % Sodium Chloride 50 ML IV ×2 (17:41→21:49)
--- NOTE | 2022-12-19 18:00 | ED.ABDPAIN ---
HPI - Abdominal Pain General Chief Complaint: Abdominal Pain Stated Complaint: Stomach Pain Since 12/18/22 Time Seen by Provider: 12/19/22 14:11 Source: patient, family and hourly sign language interpreter Mode of arrival: ambulatory History of Present Illness HPI narrative: 77-year-old female presents with worsening right flank pain for 2 days and states that the pain as sharp and radiating into her right groin and into her leg. She reports a history of kidney stones but otherwise denies any nausea/vomiting and denies any dysuria. Patient reports chills but no fevers. Related Data Home Medications Medication Instructions Recorded Confirmed albuterol sulfate 2.5 mg/3 mL 1 amp inhalation QID PRN Wheezing 09/06/22 12/19/22 (0.083 %) solution for nebulization alendronate 70 mg tablet 1 tab PO REESE 09/06/22 12/19/22 aspirin 81 mg tablet,delayed 1 tab PO DAILY 09/06/22 12/19/22 release blood sugar diagnostic ([facility] 09/06/22 10/23/22 Verio test strips) blood-glucose meter ([facility] 09/06/22 10/23/22 Verio Flex Meter) diltiazem HCl 180 mg 1 cap PO DAILY 09/06/22 12/19/22 capsule,extended release 24 hr (Cartia XT) ferrous sulfate 325 mg (65 mg 1 tab PO Q OTHER DAY 09/06/22 12/19/22 iron) tablet (FeroSul) fluticasone 250 mcg-salmeterol 50 1 puff inhalation BID 09/06/22 12/19/22 mcg/dose blistr powdr for inhalation (Advair Diskus) fluticasone propionate 50 2 spray intranasal DAILY 09/06/22 12/19/22 mcg/actuation nasal spray,suspension furosemide 80 mg tablet 1 tab PO BIDWM 09/06/22 12/19/22 lancets [facility] 09/06/22 10/23/22 Plus Lancet) methylcellulose (laxative) 500 mg 1 tab PO DAILY 09/06/22 12/19/22 tablet (Fiber Laxative (methylcellulose)) sennosides 8.6 mg tablet (senna) 1 tab PO BID PRN constipation 09/06/22 12/19/22 tramadol 50 mg tablet 1 tab PO TID PRN pain 09/06/22 12/19/22 albuterol sulfate 90 mcg/actuation 2 puff inhalation Q4-6H PRN 10/23/22 12/19/22 aerosol inhaler (Ventolin HFA) Wheezing atorvastatin 80 mg tablet 80 mg PO DAILY 10/23/22 12/19/22 carvedilol 3.125 mg tablet 3.125 mg PO BID 10/23/22 12/19/22 losartan 100 mg tablet 100 mg PO DAILY 10/23/22 12/19/22 metformin 850 mg tablet 850 mg PO BIDWM 10/23/22 12/19/22 triamcinolone acetonide 0.1 % 1 appl topical BID 12/19/22 12/19/22 topical cream Previous Rx's Medication Instructions Recorded docusate sodium 100 mg capsule 100 mg PO BID #180 caps 10/27/22 famotidine 20 mg tablet 20 mg PO BID #180 tabs 10/27/22 polyethylene glycol 3350 17 17 g PO DAILY #510 grams 10/27/22 gram/dose oral powder (Miralax) simethicone 125 mg capsule (Gas 125 mg PO TID-QID PRN Indigestion 11/18/22 Relief Extra Strength) #120 caps Allergies Allergy/AdvReac Type Severity Reaction Status Date / Time montelukast [Singulair] Allergy Unknown itching/marysol Verified 11/25/22 11:32 h From Singulair Allergy Intermediate RASH Uncoded 11/25/22 11:32 Review of Systems Review of Systems Pertinent positives and negatives as stated in HPI [facility] Past Medical History Source: nursing notes reviewed Medical History Alcohol abuse Arthritis Asthma Atrial fibrillation COPD (chronic obstructive pulmonary disease) Diabetes Gout Hypertension Hypertension Knee arthropathy Nephrolithiasis Osteoarthritis Thrombosed external hemorrhoid Surgical History History of total knee arthroplasty Hx of colonoscopy Social History Social History Unable to assess alcohol history related to: Unknown Alcohol intake: never Patient Tobacco Use Status: Never used Tobacco Smoked in Last 30 Days: No Use of substances other than those prescribed or required for medical reasons: No Any prior treatment program specific to substance use: No Advance Directives: No Advance Directives Information Provided: Yes Physical Exam ED Vital Signs: Vital Signs - 24 hr 12/19/22 09:52 12/19/22 16:08 12/19/22 18:48 Temperature 97.9 F 98 F Pulse Rate 68 114 H 116 H Respiratory Rate 18 20 15 Blood Pressure 149/66 H 191/86 H Pulse Oximetry 96 95 96 Oxygen Delivery Method Room Air Room Air BMI result Body Mass Index 36.6 VITAL SIGNS: Reviewed. GENERAL: Well developed, well nourished, in no acute distress. HEAD: Normocephalic/atraumatic EYES: PERRLA, EOMI LUNGS: Normal breath sounds. No adventitious sounds or accessory muscle use. SpO2<96> CARDIOVASCULAR: Regular rate and rhythm without noted murmurs ABDOMEN: Soft, mild tenderness on palpation over right lower quadrant/suprapubic area, non-distended with bowel sounds. NEUROLOGIC: Alert and oriented x 4. Strength and sensation to light touch were grossly intact x 4. Medical Decision Making Medical Decision Making [facility] Narrative: This is a 77-year-old female that after review of all investigations my interpretation is cystitis with ORION, Radiology was unable to identify any definitive ureteral lithiasis. Patient received IV fluids, antibiotics, combination analgesics and on re-evaluation she states that her pain feels much better. I reviewed all investigations in my interpretation is that patient has significant ORION secondary to obstructive uropathy with severe hydronephrosis and although 1 can clearly see a large stone at the renal pelvis on the left no stone is identified on the right. Patient's pain has improved, however after discussing with Dr. Gomes she is recommending that patient be admitted and she will see the patient in the morning. Differential Diagnosis Differential Diagnoses: The differential diagnosis associated with the presentation includes Please see the discussion above Consult Healthcare Provider Management of the patient was discussed with: Deck Steward 1811: I discussed this case with Dr. Gomes recommends admission for the acute change between prior labs in today with the history and clinical presentation. She states that patient can be on a diet as she does not think that she will perform an intervention 1st thing in the morning. 1912: I discussed with the hospitalist who accepts admission. Lab Data [facility] Lab Attestation statement: I reviewed the patient's lab results. Please see the discussion above 12/19/22 10:20 12/19/22 10:20 Labs: Lab Results 12/19/22 12/19/22 12/19/22 Range/Units 10:20 10:20 16:11 WBC 6.5 (4.8-10.8) X10*3/uL RBC 4.08 L (4.20-5.50) X10*6/uL Hgb 11.5 L (12.0-16.0) g/dl Hct 35.6 L (37.0-47.0) % MCV 87.3 (80.0-98.0) fL MCH 28.2 (27.0-33.0) pg MCHC 32.3 (31.0-35.0) g/dl RDW 12.5 (11.0-16.0) % Plt Count 246 D (160-400) X10*3/uL MPV 10.0 (9.4-12.3) fL Absolute Nucleated RBC 0.000 (0.0-0.012) X10*3/uL Nucleated RBC % (auto) 0.0 (0.0-0.2) /100WBC Sodium 141 (135-145) mmol/L Potassium 4.2 (3.3-5.1) mmol/L Chloride 102 (96-108) mmol/L Carbon Dioxide 26 (22-29) mmol/L Anion Gap 17 (12-20) BUN 42 H (9-16) mg/dL Creatinine 2.15 H (0.5-1.4) mg/dL Estim Creat Clear Calc 22.5 Estimated GFR 22 Random Glucose 170 H (60-115) mg/dL Calcium 9.2 (8.4-10.2) mg/dL Magnesium 2.3 (1.6-2.6) mg/dL Total Bilirubin 0.6 (0.0-1.0) mg/dL Direct Bilirubin < 0.2 (0.0-0.5) mg/dL AST 20 (5-31) U/L ALT 16 (0-31) U/L Alkaline Phosphatase 102 (39-117) U/L Total Protein 6.7 (6.5-8.0) g/dL Albumin 3.9 (3.5-5.0) g/dL Lipase 16 (8-78) U/L Urine Color Yellow Urine Appearance Clear Urine pH 7.0 (5.0-9.0) Ur Specific [place] 1.015 (1.005-1.025) Urine Protein Negative (Neg-Trace) mg/dL Urine Glucose (UA) Negative (Negative) mg/dL Urine Ketones Negative (Negative) mg/dL Urine Blood Trace H (Negative) Urine Nitrite Negative (Negative) Ur Leukocyte Esterase Large (3+) H (Negative) Urine RBC 6-10 H (0-2) /HPF Urine WBC 11-20 H (0-5) /HPF Ur Squamous Epith Cells 6-10 (0-2) /HPF Urine Bacteria Trace (None Seen) Hyaline Casts 0-2 (0-2) /LPF Radiology Impression Radiologist Impression: My interpretation is in agreement with radiology's impression of the imaging study. Independent Historian Clinical information obtained from an independent historian. History obtained from or confirmed by: Other Granddaughter. External Record Review External record reviewed: Outpatient record and Prior outpatient labs Chronic Conditions Patient?s care impacted by: Diabetes Medications Administered Discontinued Medications Generic Name Dose Route Start Last Admin Trade Name Ankurq PRN Reason Stop Dose Admin Sodium Chloride 500 mls @ 999 mls/hr 12/19/22 17:00 12/19/22 17:40 Ns IV 12/19/22 17:30 999 mls/hr .Q31M GONZALEZ Administration Ceftriaxone Sodium 1 gm/ 50 mls @ 100 mls/hr 12/19/22 16:59 12/19/22 17:41 Sodium Chloride IV 12/19/22 17:28 100 mls/hr ONCE ONE Administration Ketorolac Tromethamine 15 mg 12/19/22 16:59 12/19/22 17:40 Ketorolac Tromethamine 30 Mg/Ml Vial IVPUSH 12/19/22 17:00 15 mg ONCE ONE Administration Labetalol HCl 2.5 mg 12/19/22 19:17 12/19/22 19:24 Labetalol Hcl 100 Mg/20 Ml Vial IVPUSH 12/19/22 19:18 2.5 mg ONCE ONE Administration Critical Care Time Critical Care Time Critical Care Time: Yes Total Critical Care Time: 45 Attestation: I personally attest to this time spent taking care of the patient. Discharge Plan Discharge Clinical Impression: ORION (acute kidney injury), Obstruction, uropathy Patient Disposition: Admitted As Inpatient Prescriptions: No Action simethicone [Gas Relief Extra Strength] 125 mg capsule 125 mg PO TID-QID PRN (Reason: Indigestion) Qty: 120 3RF fluticasone propion-salmeterol [Advair Diskus] 250-50 mcg/dose blister with device 1 puff INHALATION BID sennosides [senna] 8.6 mg tablet 1 tab PO BID PRN (Reason: constipation) albuterol sulfate 2.5 mg /3 mL (0.083 %) solution for nebulization 1 amp inhalation QID PRN (Reason: Wheezing) (DME) blood-glucose meter [[employer] Flex meter] [facility] MISCELLANEOUS DIRECTED diltiazem HCl [Cartia XT] 180 mg capsule,extended release 24hr 1 cap PO DAILY alendronate 70 mg tablet 1 tab PO QWEEK (DME) [employer] test strips Strip MISCELLANEOUS BID aspirin 81 mg tablet,delayed release (DR/EC) 1 tab PO DAILY tramadol 50 mg tablet 1 tab PO TID PRN (Reason: pain) acetaminophen 500 mg tablet 1 tab PO Q8H PRN (Reason: fever) furosemide 80 mg tablet 1 tab PO BID ferrous sulfate [FeroSul] 325 mg (65 mg iron) tablet 1 tab PO Q OTHER DAY Fiber Laxative (methylcellulo) 500 mg tablet 1 tab PO DAILY pyridoxine (vitamin B6) 100 mg tablet 1 tab PO DAILY fluticasone propionate 50 mcg/actuation spray,suspension 2 spray intranasal DAILY sertraline 50 mg tablet 50 mg PO DAILY losartan-hydrochlorothiazide 100-12.5 mg tablet 1 tab PO DAILY (DME) lancets [[employer] Del[employer] Plus Lancet] 33 gauge [facility] MISCELLANEOUS BID Jardiance 25 mg tablet 1 tab PO QAM acetaminophen [Acetaminophen Pain Relief] 500 mg tablet 1,000 mg PO Q6H PRN (Reason: pain) Qty: 90 0RF polyethylene glycol 3350 [Miralax] 17 gram/dose powder 17 g PO DAILY Qty: 510 3RF famotidine 20 mg tablet 20 mg PO BID Qty: 180 2RF docusate sodium 100 mg capsule 100 mg PO BID Qty: 180 3RF losartan 100 mg tablet 100 mg PO DAILY carvedilol 3.125 mg tablet 3.125 mg PO BID metformin 850 mg tablet 850 mg PO BID atorvastatin 80 mg tablet 80 mg PO DAILY albuterol sulfate [Ventolin HFA] 90 mcg/actuation HFA aerosol inhaler 2 puff inhalation Q4-6H PRN (Reason: Wheezing)
[2022-12-19 18:48] VITALS: PULSE 116; RESP 15; TEMP 36.6; O2SAT 96
--- NOTE | 2022-12-19 19:12 | PC.NURSE ---
afib in 90's now on monitor, pt took all her meds this morning, dr loya aware of vitals, pharmacy aware of need for med rec, pt w nad, no complaints at this time, skin wpd
--- NOTE | 2022-12-19 19:19 | PC.NURSE ---
Dr. Garibay notified of elevated BP 192/10, verbal order received to administer Labetalol 2.5 mg IV push.
[2022-12-19] MEDS: Labetalol HCL 100 MG/20 ML VIAL IVPUSH (19:24)
[2022-12-19 19:58] LABS: COVID-19 Test Negative (Negative); IDNOW Serial# 16C4AD1C
--- NOTE | 2022-12-19 20:03 | PHA.MEDREC ---
Pharmacy Consult ? Medication Reconciliation Pharmacy has completed the medication reconciliation. per pt's daughter, pt is also on pradaxa 150 mg daily, unable to find in claim history for the past year
--- NOTE | 2022-12-19 20:30 | P.HPHOSP_ITS ---
History of Present Illness Date of Service: 12/19/22 Chief Complaint: Flank pain Tam[place]-speaking only, history is obtained with the help of an staff interpreter. This is a 77-year-old female with past medical history of asthma, AFib, COPD, diabetes, HTN, HLD, presents the hospital with complaints of right flank pain. Patient reports symptoms started the day prior, pain radiating to the right groin, sharp, shooting in characteristic, 7/10, relieved with pain medication received in the ED. Patient also complaining of increased shortness of breath, lower extremity swelling, as well as orthopnea and PND that started about 3-4 days ago. She reports urinary frequency with no dysuria or urgency. All other review of system negative On arrival to the ED patient found to have temp of 97.9 degrees, heart rate of 6 8, respiratory rate of 18, satting 96% on room air Labs are significant for WBC count of 6.5, hemoglobin of 11.5, hematocrit 35.6, creatinine of 2.15 with a baseline of 0.86, BNP of 328, urine positive for large leukocyte Estrace, WBC, and bacteria Abdomen pelvic CT shows mild bilateral hydronephrosis with dilated renal pelvis sees, this could be UPJ obstruction, nonobstructing left lower pole renal calculus. Review of Systems Review of Systems: Yes all other systems are reviewed and are negative [facility] Medical History Alcohol abuse Arthritis Asthma Atrial fibrillation COPD (chronic obstructive pulmonary disease) Diabetes Gout Hypertension Hypertension Knee arthropathy Nephrolithiasis Osteoarthritis Thrombosed external hemorrhoid Surgical History History of total knee arthroplasty Hx of colonoscopy Social History Household Members: None Housing: Apartment Housing Other:: low income housing Do you presently have visiting nurse or other home services: No Unable to assess alcohol history related to: Unknown Alcohol intake: never Patient Tobacco Use Status: Never used Tobacco Smoked in Last 30 Days: No e-Cigarette/Vaping Use: Never Used Patient Interested in Nicotine Replacement: No Second Hand Smoke Exposure: No Use of substances other than those prescribed or required for medical reasons: No Any prior treatment program specific to substance use: No Have you been hit, kicked, punched, or otherwise hurt by someone within the past year? If so, by whom?: No Do you feel safe in your current relationship?: No Current Relationship Is there a partner from a previous relationship who is making you feel unsafe now?: No Are you made to feel afraid or neglected: No Advance Directives: No Advance Directives Information Provided: Yes Do you have thoughts of harming others: None Do you have a plan to hurt others: No Plan Recently lost weight without trying: No Eating poorly because of decreased appetite: No Nutrition Risks: No Nutritional Risk Patient : No : No Poor oral hygiene: No Meds Allergies Allergy/AdvReac Type Severity Reaction Status Date / Time montelukast [Singulair] Allergy Unknown itching/marysol Verified 11/25/22 11:32 h From Singulair Allergy Intermediate RASH Uncoded 11/25/22 11:32 Active Medications: Current Medications Pharmacy Consult (Consult Rx Perform Med Rec) 1 each MISCELLANE ONCE PRN PRN Reason: Consult order Home Medications Medication Instructions Recorded Confirmed Last Taken Type albuterol sulfate 2.5 mg/3 mL 1 amp inhalation QID PRN Wheezing 09/06/22 12/19/22 12/19/22 History (0.083 %) solution for nebulization alendronate 70 mg tablet 1 tab PO REESE 09/06/22 12/19/22 12/14/22 History aspirin 81 mg tablet,delayed 1 tab PO DAILY 09/06/22 12/19/22 12/19/22 History release blood sugar diagnostic (OneTouch 09/06/22 10/23/22 Unknown History Verio test strips) blood-glucose meter (OneTouch 09/06/22 10/23/22 Unknown History Verio Flex Meter) diltiazem HCl 180 mg 1 cap PO DAILY 09/06/22 12/19/22 12/19/22 History capsule,extended release 24 hr (Cartia XT) ferrous sulfate 325 mg (65 mg 1 tab PO Q OTHER DAY 09/06/22 12/19/22 11/18/22 History iron) tablet (FeroSul) fluticasone 250 mcg-salmeterol 50 1 puff inhalation BID 09/06/22 12/19/22 12/19/22 History mcg/dose blistr powdr for inhalation (Advair Diskus) fluticasone propionate 50 2 spray intranasal DAILY 09/06/22 12/19/22 12/19/22 History mcg/actuation nasal spray,suspension furosemide 80 mg tablet 1 tab PO BIDWM 09/06/22 12/19/22 12/19/22 History lancets 33 gauge (OneTouch Delica 09/06/22 10/23/22 Unknown History Plus Lancet) methylcellulose (laxative) 500 mg 1 tab PO DAILY 09/06/22 12/19/22 12/19/22 History tablet (Fiber Laxative (methylcellulose)) sennosides 8.6 mg tablet (senna) 1 tab PO BID PRN constipation 09/06/22 12/19/22 Unknown History tramadol 50 mg tablet 1 tab PO TID PRN pain 09/06/22 12/19/22 Unknown History albuterol sulfate 90 mcg/actuation 2 puff inhalation Q4-6H PRN 10/23/22 12/19/22 Unknown History aerosol inhaler (Ventolin HFA) Wheezing atorvastatin 80 mg tablet 80 mg PO DAILY 10/23/22 12/19/22 12/19/22 History carvedilol 3.125 mg tablet 3.125 mg PO BID 10/23/22 12/19/22 12/19/22 History losartan 100 mg tablet 100 mg PO DAILY 10/23/22 12/19/22 12/19/22 History metformin 850 mg tablet 850 mg PO BIDWM 10/23/22 12/19/22 12/18/22 History triamcinolone acetonide 0.1 % 1 appl topical BID 12/19/22 12/19/22 Unknown History topical cream Physical Exam Vital Signs and Narrative: Vital Signs: Last Vital Signs Temp 98 F 12/19/22 18:48 Pulse 116 H 12/19/22 18:48 Resp 15 12/19/22 18:48 BP 191/86 H 12/19/22 16:08 Pulse Ox 96 12/19/22 18:48 O2 Del Method 12/19/22 16:08 BMI result Body Mass Index 36.6 Const: General: cooperative and no acute distress Orientation/consciousness: patient oriented x3 Eyes: General: appearance normal, both eyes and all related structures Resp: Effort & Inspection: normal respiratory effort Auscultation: clear to auscultation bilaterally Cardio: Rate: regular rate Rhythm: regular rhythm GI: Palpation (GI): Soft to palpation Auscultation: normal bowel sounds : Other: Right CVA tenderness Skin: General skin exam: no rashes or lesions noted Neuro: General: patient oriented x3 Cognition (Neuro): normal cognition Extrem: Other: 2+ so extremity edema General: Yes normal to inspection Results Labs 12/19/22 10:20 12/19/22 10:20 Labs: Laboratory Results - last 24 hr 12/19/22 12/19/22 12/19/22 10:20 10:20 16:11 MCV 87.3 MCH 28.2 MCHC 32.3 RDW 12.5 Plt Count 246 D MPV 10.0 Absolute Nucleated RBC 0.000 Nucleated RBC % (auto) 0.0 Anion Gap 17 Estim Creat Clear Calc 22.5 Estimated GFR 22 Random Glucose 170 H Calcium 9.2 Magnesium 2.3 Total Bilirubin 0.6 Direct Bilirubin < 0.2 AST 20 ALT 16 Alkaline Phosphatase 102 Total Protein 6.7 Albumin 3.9 Lipase 16 Urine Color Yellow Urine Appearance Clear Urine pH 7.0 Ur Specific [place] 1.015 Urine Protein Negative Urine Glucose (UA) Negative Urine Ketones Negative Urine Blood Trace H Urine Nitrite Negative Ur Leukocyte Esterase Large (3+) H Urine RBC 6-10 H Urine WBC 11-20 H Ur Squamous Epith Cells 6-10 Urine Bacteria Trace Hyaline Casts 0-2 COVID-19 (MARQUISE) COVID-19 Clin Com 12/19/22 19:19 MCV MCH MCHC RDW Plt Count MPV Absolute Nucleated RBC Nucleated RBC % (auto) Anion Gap Estim Creat Clear Calc Estimated GFR Random Glucose Calcium Magnesium Total Bilirubin Direct Bilirubin AST ALT Alkaline Phosphatase Total Protein Albumin Lipase Urine Color Urine Appearance Urine pH Ur Specific [place] Urine Protein Urine Glucose (UA) Urine Ketones Urine Blood Urine Nitrite Ur Leukocyte Esterase Urine RBC Urine WBC Ur Squamous Epith Cells Urine Bacteria Hyaline Casts COVID-19 (MARQUISE) Negative COVID-19 Clin Com See Note Imaging Radiologist's Impressions: Impressions Abdomen/Pelvis CT 12/19/22 13:49 IMPRESSION: 1. Mild bilateral hydronephrosis with dilated renal pelvises. These could be UPJ obstructions. The ureters are decompressed. No obstructing calculi are seen. 2. Nonobstructing left lower pole renal calculus. 3. Colonic diverticulosis without diverticulitis. Fleischner guidelines were followed. Assessment and Plan (1) Hydronephrosis: Qualifiers: Hydronephrosis type: with ureteropelvic junction obstruction Qualified Code(s): Q62.11 - Congenital occlusion of ureteropelvic junction Status: Acute (2) Acute exacerbation of CHF (congestive heart failure): Status: Acute (3) ORION (acute kidney injury): Status: Acute (4) Obstruction, uropathy: Status: Acute Plan This is a 77-year-old female with past medical history of diabetes, history of CHF, AFib, asthma, hypertension, hyperlipidemia, history of alcohol abuse presents to the hospital with complaints of right flank pain found to have the following # hydronephrosis - likely secondary to an obstructing stone that has now passed as no blocking stone was seen on the CT - she does have significant CVA tenderness on the right with evidence of UPJ obstruction seen on imaging - positive UA - will treat with IV antibiotics - will hold on fluids as patient is volume overload - urology consulted - monitor symptoms - pain control # acute CHF exacerbation - patient has elevated BNP, lower extremity edema, orthopnea and PND - history of CHF, unclear etiology at this time - takes 80 mg of Lasix at home - will treat with IV Lasix, strict I&O, daily weight, low-sodium diet - echocardiogram, cardiology consulted # ORION - likely multifactorial secondary to obstruction neuropathy as well as CHF - will treat with Lasix - no evidence of obstructing stone - urology consulted - follow BMP # diabetes - hold metformin - will add low-dose sliding scale insulin # history of AFib - continue carvedilol, diltiazem, does not appear to be on anticoagulation at this time per med rec Of note patient stated to pharmacy that she takes Pradaxa 150 mg daily, I am unable to verify this information based on chart review, pharmacy unable to verify the medication, this time with placed on hold DVT prophylaxis: Heparin subQ Given patient's acute ORION requiring further follow-up, acute CHF requiring IV Lasix as well as hydronephrosis requiring urology evaluation patient required minimal 2 nights inpatient hospital stay for further management Time Spent With Patient Time: Total time managing care of this patient today ____ minutes. Quality Stroke Does the patient have a stroke diagnosis?: No VTE Prior VTE?: No VTE Risk Level:: Medical - moderate - high VTE Device Contraindication: Treatment Not Indicated VTE Drug Contraindication: N/A - Med Ordered
[2022-12-19 21:42] LABS: Lactic Acid 1.2 mmol/L (0.5-2.0)
[2022-12-19] MEDS: Enoxaparin Sodium 40 MG/0.4 ML SYRINGE SUBCUT (21:49)
[2022-12-19 22:30] LABS: B Type Natriuretic Peptide 328 pg/mL (<100)
[2022-12-19 23:58] VITALS: BP 172/91; PULSE 118; RESP 28; TEMP 36.8; O2SAT 93
[2022-12-20] VITALS (8 sets, daily range): BP systolic 156–199; BP diastolic 72–100; PULSE 79–155; RESP 18–22; TEMP 36.1–37; O2SAT 95–99; BMI 38.9
--- NOTE | 2022-12-20 | ECG_ITS ---
Test Reason : rapid afib Blood Pressure : / mmHG Vent. Rate : 102 BPM Atrial Rate : 000 BPM P-R Int : 000 ms QRS Dur : 088 ms QT Int : 350 ms P-R-T Axes : 000 035 070 degrees QTc Int : 456 ms Atrial fibrillation with rapid ventricular response with premature ventricular or aberrantly conducted complexes Septal infarct (cited on or before 15-FEB-2022) Abnormal ECG When compared with ECG of 15-FEB-2022 17:24, Nonspecific T wave abnormality no longer evident in Inferior leads Nonspecific T wave abnormality, improved in Anterolateral leads Referred By: Alan Braga Electronically Signed By:ALEA MAE MD
[2022-12-20] MEDS: Acetaminophen 325 MG TABLET 650 MG PO (01:43)
[2022-12-20] MEDS: 0.9 % Sodium Chloride Flush 3 ML SYRINGE IVFLUSH ×4 (01:44→20:21)
--- NOTE | 2022-12-20 03:49 | PC.NURSE ---
Nurse to nurse report given to Roselia Dial RN.
[2022-12-20] MEDS: Docusate Sodium 100 MG CAPSULE PO (04:38)
[2022-12-20] MEDS: hydrALAZINE HCl 20 MG/ML VIAL 5 MG IVPUSH (05:41)
[2022-12-20] MEDS: Losartan Potassium 50 MG TABLET 100 MG PO (07:08)
[2022-12-20] MEDS: dilTIAZem HCL CD 180 MG CAP.ER.24H PO (07:08)
[2022-12-20] MEDS: hydrALAZINE HCl 20 MG/ML VIAL 10 MG IVPUSH ×2 (07:33→20:32)
--- NOTE | 2022-12-20 07:37 | HO.PM.IMPN ---
Subjective Subjective Date of Service: 12/21/22 Interval History: Seen in f/u for ORION, acute heart failure, obstructive Patient is very anxious this morning, c/o of having difficulty breathing breathing, O2 sat 99 on room, visibly anxious, BP high and given IV hydralazine, intermittent tacycardia, ECG show AFIB, given morphine for acute respiratory distress and flank claros, ativan for anxiety. Review of Systems anxious, sob Physical Exam Vital Signs: Vital Signs: Last Vital Signs Temp 96.9 F 12/20/22 07:15 Pulse 98 12/20/22 07:15 Resp 20 12/20/22 07:15 BP 184/99 H 12/20/22 07:15 Pulse Ox 99 12/20/22 07:15 O2 Del Method 12/20/22 07:15 BMI result Body Mass Index 38.9 Const: Other: General: AO X 3, no acute distress Resp: decrease air movment CVS: S1,S2,RRR, 3+ leg edma GI: +BS, NT, no distention Skin: No rash Neuro: motor grossly intact Psych: appropriate affect Objective Data Active Medications Acetaminophen (Acetaminophen 325 Mg Tablet) 650 mg PO Q6H PRN PRN Reason: Pain, Mild (Pain Scale 1-3) Last Admin: 12/20/22 01:43 Dose: 650 mg Documented By: GUERDA Albuterol Sulfate (Albuterol Sulfate (0.083%) 2.5 Mg/3 Ml Vial.Neb) 2.5 mg INHALE QID PRN PRN Reason: Wheezing Albuterol Sulfate (Albuterol Sulfate 90 Mcg 8 Gm Inhaler) 2 puff INHALE Q4H PRN PRN Reason: Wheezing Aspirin (Aspirin Enteric Coated 81 Mg Tablet.Dr) 81 mg PO DAILY [facility] Atorvastatin Calcium (Atorvastatin Calcium 80 Mg Tablet) 80 mg PO DAILY [facility] Calcium Polycarbophil (Calcium Polycarbophil Tablet) 1 tab PO DAILY [facility] Carvedilol (Carvedilol 3.125 Mg Tablet) 3.125 mg PO BID [facility]; Protocol Diltiazem HCl (Diltiazem Hcl Cd 180 Mg Cap.Er.24h) 180 mg PO DAILY [facility]; Protocol Last Admin: 12/20/22 07:08 Dose: 180 mg Documented By: TRELL Docusate Sodium (Docusate Sodium 100 Mg Capsule) 100 mg PO DAILY PRN PRN Reason: Constipation Last Admin: 12/20/22 04:38 Dose: 100 mg Documented By: TRELL Enoxaparin Sodium (Enoxaparin Sodium 40 Mg/0.4 Ml Syringe) 40 mg SUBCUT Q24H [facility] Last Admin: 12/19/22 21:49 Dose: 40 mg Documented By: GUERDA Famotidine (Famotidine 20 Mg Tablet) 20 mg PO BID [facility] Ferrous Sulfate (Ferrous Sulfate 324 Mg Tablet.Dr) 324 mg PO Q2D@0900 [facility] Fluticasone Propionate (Fluticasone Propionate Nasal 16 Gm [place]) 2 spray NOSTRIL-B DAILY [facility] Fluticasone/Vilanterol (Fluticasone/Vilanterol 100/25 Blst.W.Dev) 1 puff INHALE RDAILY [facility] Furosemide (Furosemide 40 Mg/4 Ml Vial) 40 mg IVPUSH BID@0900,1800 [facility]; Protocol Ceftriaxone Sodium 1 gm/ (Sodium Chloride) 50 mls @ 100 mls/hr IV Q24H [facility] Last Infusion: 12/19/22 22:40 Dose: 0 mls/hr Documented By: GUERDA Losartan Potassium (Losartan Potassium 50 Mg Tablet) 100 mg PO DAILY [facility]; Protocol Last Admin: 12/20/22 07:08 Dose: 100 mg Documented By: TRELL Non-Formulary Medication (Alendronate) 1 tab PO REESE [facility] Ondansetron HCl (Ondansetron Hcl 4 Mg/2 Ml Vial) 4 mg IVPUSH Q8H PRN PRN Reason: Nausea and Vomiting Pharmacy Consult (Consult Rx Perform Med Rec) 1 each MISCELLANE ONCE PRN PRN Reason: Consult order Polyethylene Glycol (Polyethylene Glycol 3350 17 Gm Powd.Pack) 17 gm PO DAILY [facility] Senna (Sennosides 8.6 Mg Tablet) 8.6 mg PO BID PRN PRN Reason: constipation Simethicone (Simethicone 80 Mg Tab.Chew) 120 mg PO QID PRN PRN Reason: Indigestion Sodium Chloride (0.9 % Sodium Chloride Flush 3 Ml Syringe) 3 ml IVFLUSH QSHIFT [facility] Last Admin: 12/20/22 04:32 Dose: 3 ml Documented By: TRELL Tramadol HCl (Tramadol Hcl 50 Mg Tablet) 50 mg PO TID PRN PRN Reason: Pain, Severe (Pain Scale 7-10) Triamcinolone Acetonide (Triamcinolone Acet 0.1 % Cream 15 Gm Tube) 1 appl TOPICAL BID [facility]; Protocol Labs 12/19/22 10:20 12/19/22 10:20 Labs: Laboratory Results - last 24 hr 12/19/22 12/19/22 12/19/22 10:20 10:20 16:11 MCV 87.3 MCH 28.2 MCHC 32.3 RDW 12.5 Plt Count 246 D MPV 10.0 Absolute Nucleated RBC 0.000 Nucleated RBC % (auto) 0.0 Anion Gap 17 Estim Creat Clear Calc 22.5 Estimated GFR 22 Random Glucose 170 H Lactic Acid Calcium 9.2 Magnesium 2.3 Total Bilirubin 0.6 Direct Bilirubin < 0.2 AST 20 ALT 16 Alkaline Phosphatase 102 B-Natriuretic Peptide Total Protein 6.7 Albumin 3.9 Lipase 16 Urine Color Yellow Urine Appearance Clear Urine pH 7.0 Ur Specific [place] 1.015 Urine Protein Negative Urine Glucose (UA) Negative Urine Ketones Negative Urine Blood Trace H Urine Nitrite Negative Ur Leukocyte Esterase Large (3+) H Urine RBC 6-10 H Urine WBC 11-20 H Ur Squamous Epith Cells 6-10 Urine Bacteria Trace Hyaline Casts 0-2 COVID-19 ([facility]QUISE) COVID-19 Clin Com 12/19/22 12/19/22 12/19/22 19:19 21:24 21:24 MCV MCH MCHC RDW Plt Count MPV Absolute Nucleated RBC Nucleated RBC % (auto) Anion Gap Estim Creat Clear Calc Estimated GFR Random Glucose Lactic Acid 1.2 Calcium Magnesium Total Bilirubin Direct Bilirubin AST ALT Alkaline Phosphatase B-Natriuretic Peptide 328 H Total Protein Albumin Lipase Urine Color Urine Appearance Urine pH Ur Specific [place] Urine Protein Urine Glucose (UA) Urine Ketones Urine Blood Urine Nitrite Ur Leukocyte Esterase Urine RBC Urine WBC Ur Squamous Epith Cells Urine Bacteria Hyaline Casts COVID-19 (MARQUISE) Negative COVID-19 Clin Com See Note Assessment and Plan (1) Acute exacerbation of CHF (congestive heart failure): Status: Acute (2) Kidney stone on left side: Status: Acute Plan 77-year-old female with past medical history of diabetes, history of CHF, AFib, asthma, hypertension, hyperlipidemia, history of alcohol abuse presents to the hospital with complaints of right flank pain found to have the following #Acute respiratory distress anxiety probably ? related to CHF, managment for CHF as below and and symptomatic treatment for anxiety, repeat cxr # acute unspecified CHF exacerbation manifested by elevated BNP, lower extremity edema, orthopnea and PND - takes 80 mg of Lasix at home - will treat with IV Lasix, strict I&O, daily weight, low-sodium diet - echocardiogram, cardiology consulted # hydronephrosis- likely secondary to an obstructing stone that has now passed as no blocking stone was seen on the CT - she does have significant CVA tenderness on the right with evidence of UPJ obstruction seen on imaging - positive UA - urology consult - monitor symptoms - pain control #UTI--Ceftriaxone # ORION- likely multifactorial secondary to obstruction uropathy, cardiorenal - IV Lasix and closely monitor if not improving, nephrology consult - no evidence of obstructing stone - urology consulted - follow BMP # diabetes - hold metformin - will add low-dose sliding scale insulin # history of AFib - continue carvedilol, diltiazem, does not appear to be on anticoagulation at this time per med rec Of note patient stated to pharmacy that she takes Pradaxa 150 mg daily, I am unable to verify this information based on chart review, pharmacy unable to verify the medication, this time with placed on hold DVT prophylaxis:? Heparin subQ Need for inaptient: ORION, acute heart failure that need IV diuretics and monitoring of labs and possible additional work up Due to ongoing acute respiraotry distress, tachycardia, will transfer to C Time Spent With Patient Time: Total time managing care of this patient today ____ minutes. Quality Stroke Does the patient have a stroke diagnosis?: No VTE Prior VTE?: No VTE Risk Level:: Medical - moderate - high VTE Device Contraindication: Treatment Not Indicated VTE Drug Contraindication: N/A - Med Ordered
[2022-12-20 07:42] LABS: Glucose, Whole Blood 166 mg/dL (60-115)
[2022-12-20] MEDS: Albuterol Sulfate 90 MCG 8 GM INHALER 2 PUFF INHALE ×2 (07:51→11:53)
[2022-12-20] MEDS: Furosemide 40 MG/4 ML VIAL IVPUSH ×2 (08:38→17:36)
[2022-12-20] MEDS: Morphine Sulfate 2 MG/ML CARTRIDGE IVPUSH (08:38)
[2022-12-20] MEDS: carvediloL 3.125 MG TABLET PO ×2 (08:39→20:17)
[2022-12-20] MEDS: Aspirin Enteric Coated 81 MG TABLET.DR PO (08:39)
[2022-12-20] MEDS: Ferrous Sulfate 324 MG TABLET.DR PO (08:39)
[2022-12-20] MEDS: Atorvastatin Calcium 80 MG TABLET PO (08:39)
[2022-12-20] MEDS: Famotidine 20 MG TABLET PO ×2 (08:46→20:18)
[2022-12-20 08:47] LABS: Anion Gap 20 (12-20); Blood Urea Nitrogen 39 mg/dL (9-16); Calcium 9.2 mg/dL (8.4-10.2); Carbon Dioxide 23 mmol/L (22-29); Chloride 102 mmol/L (96-108); Creatinine Clr Calc Pharmacy 21.7; Estimated Glomerular Filt Rate 20; Glucose Random 178 mg/dL (60-115); Potassium 4.1 mmol/L (3.3-5.1); Sodium 141 mmol/L (135-145)
[2022-12-20] MEDS: LORazepam 2 MG/ML VIAL 0.5 MG IVPUSH (09:32)
--- NOTE | 2022-12-20 10:48 | PM.UROCN ---
History of Present Illness Consult details Consult date: 12/20/22 Narrative: 77-year-old female with past medical history of asthma, AFib, COPD, diabetes, HTN, HLD, presented to the ED 12/19/22 with complaints of right flank pain.? Patient reports symptoms started the day prior, pain radiating to the right groin, sharp, shooting in characteristic, 7/10, relieved with pain medication received in the ED.? Patient also complaining of increased shortness of breath, lower extremity swelling, as well as orthopnea and PND that started about 3-4 days ago.? She reports urinary frequency with no dysuria or urgency. On arrival to the ED patient found to have temp of 97.9 degrees, heart rate of 68, respiratory rate of 18, satting 96% on room air Labs are notable for WBC count of 6.5, hemoglobin of 11.5, hematocrit 35.6, creatinine of 2.15 with a baseline of 0.86, UA-6-10 RBC's, 11-20 WBC's, and urine c/s pending. CAT scan Pertinent findings: KIDNEYS AND URETERS: The kidneys are normal in size, shape, and attenuation. There is a prominent exophytic left midpole renal cyst with a thin rim of calcification. This is unchanged from previous. Mild left hydronephrosis with dilated renal pelvis. The ureter is decompressed. There is a nonobstructing left lower pole 0.8 cm calculus On the right there is mild hydronephrosis with dilatation of the renal pelvis. The ureter is decompressed. No right-sided calculi are seen. BLADDER: Unremarkable.? Review of Systems Review of Systems: 10 point ROS negative other than stated in [facility] Past Medical History Medical History Alcohol abuse Arthritis Asthma Atrial fibrillation COPD (chronic obstructive pulmonary disease) Diabetes Gout Hypertension Hypertension Knee arthropathy Nephrolithiasis Osteoarthritis Thrombosed external hemorrhoid Surgical History Surgical History History of total knee arthroplasty Hx of colonoscopy Social History Social History Household Members: None Housing: Apartment Housing Other:: low income housing Do you presently have visiting nurse or other home services: No Unable to assess alcohol history related to: Unknown Alcohol intake: never Patient Tobacco Use Status: Never used Tobacco Smoked in Last 30 Days: No e-Cigarette/Vaping Use: Never Used Patient Interested in Nicotine Replacement: No Second Hand Smoke Exposure: No Use of substances other than those prescribed or required for medical reasons: No Currently Displaying Signs/Symptoms of Drug Intoxication Withdrawal: No Any prior treatment program specific to substance use: No Have you been hit, kicked, punched, or otherwise hurt by someone within the past year? If so, by whom?: No Do you feel safe in your current relationship?: No Current Relationship Is there a partner from a previous relationship who is making you feel unsafe now?: No Are you made to feel afraid or neglected: No Advance Directives: No Advance Directives Information Provided: Yes Do you have thoughts of harming others: None Do you have a plan to hurt others: No Plan Recently lost weight without trying: No Eating poorly because of decreased appetite: No Nutrition Risks: No Nutritional Risk Patient : No : No Poor oral hygiene: No service: No Current occupational status: unemployed Meds Allergies Allergy/AdvReac Type Severity Reaction Status Date / Time montelukast [Singulair] Allergy Unknown itching/marysol Verified 11/25/22 11:32 h From Singulair Allergy Intermediate RASH Uncoded 11/25/22 11:32 Active Medications: Current Medications Acetaminophen (Acetaminophen 325 Mg Tablet) 650 mg PO Q6H PRN PRN Reason: Pain, Mild (Pain Scale 1-3) Last Admin: 12/20/22 01:43 Dose: 650 mg Albuterol Sulfate (Albuterol Sulfate (0.083%) 2.5 Mg/3 Ml Vial.Neb) 2.5 mg INHALE QID PRN PRN Reason: Wheezing Albuterol Sulfate (Albuterol Sulfate 90 Mcg 8 Gm Inhaler) 2 puff INHALE Q4H PRN PRN Reason: Wheezing Last Admin: 12/20/22 07:51 Dose: 2 puff Aspirin (Aspirin Enteric Coated 81 Mg Tablet.) 81 mg PO DAILY [facility] Last Admin: 12/20/22 08:39 Dose: 81 mg Atorvastatin Calcium (Atorvastatin Calcium 80 Mg Tablet) 80 mg PO DAILY [facility] Last Admin: 12/20/22 08:39 Dose: 80 mg Calcium Polycarbophil (Calcium Polycarbophil Tablet) 1 tab PO DAILY [facility] Carvedilol (Carvedilol 3.125 Mg Tablet) 3.125 mg PO BID [facility]; Protocol Last Admin: 12/20/22 08:39 Dose: 3.125 mg Diltiazem HCl (Diltiazem Hcl Cd 180 Mg Cap.Er.24h) 180 mg PO DAILY [facility]; Protocol Last Admin: 12/20/22 07:08 Dose: 180 mg Docusate Sodium (Docusate Sodium 100 Mg Capsule) 100 mg PO DAILY PRN PRN Reason: Constipation Last Admin: 12/20/22 04:38 Dose: 100 mg Enoxaparin Sodium (Enoxaparin Sodium 40 Mg/0.4 Ml Syringe) 40 mg SUBCUT Q24H [facility] Last Admin: 12/19/22 21:49 Dose: 40 mg Famotidine (Famotidine 20 Mg Tablet) 20 mg PO BID [facility] Last Admin: 12/20/22 08:46 Dose: 20 mg Ferrous Sulfate (Ferrous Sulfate 324 Mg Tablet.Dr) 324 mg PO Q2D@0900 [facility] Last Admin: 12/20/22 08:39 Dose: 324 mg Fluticasone Propionate (Fluticasone Propionate Nasal 16 Gm [place]) 2 spray NOSTRIL-B DAILY [facility] Fluticasone/Vilanterol (Fluticasone/Vilanterol 100/25 Blst.W.Dev) 1 puff INHALE RDAILY [facility] Last Admin: 12/20/22 08:14 Dose: Not Given Furosemide (Furosemide 40 Mg/4 Ml Vial) 40 mg IVPUSH BID@0900,1800 [facility]; Protocol Last Admin: 12/20/22 08:38 Dose: 40 mg Ceftriaxone Sodium 1 gm/ (Sodium Chloride) 50 mls @ 100 mls/hr IV Q24H [facility] Last Infusion: 12/19/22 22:40 Dose: Infused Losartan Potassium (Losartan Potassium 50 Mg Tablet) 100 mg PO DAILY [facility]; Protocol Last Admin: 12/20/22 07:08 Dose: 100 mg Nitroglycerin (Nitroglycerin 2 % Oint 1 Gm Packet) 1 inch TRANSDERMA RQ6H WHILE AWAKE PRN PRN Reason: sob Ondansetron HCl (Ondansetron Hcl 4 Mg/2 Ml Vial) 4 mg IVPUSH Q8H PRN PRN Reason: Nausea and Vomiting Pharmacy Consult (Consult Rx Perform Med Rec) 1 each MISCELLANE ONCE PRN PRN Reason: Consult order Polyethylene Glycol (Polyethylene Glycol 3350 17 Gm Powd.Pack) 17 gm PO DAILY [facility] Last Admin: 12/20/22 08:47 Dose: Not Given Senna (Sennosides 8.6 Mg Tablet) 8.6 mg PO BID PRN PRN Reason: constipation Simethicone (Simethicone 80 Mg Tab.Chew) 120 mg PO QID PRN PRN Reason: Indigestion Sodium Chloride (0.9 % Sodium Chloride Flush 3 Ml Syringe) 3 ml IVFLUSH QSHIFT [facility] Last Admin: 12/20/22 04:32 Dose: 3 ml Tramadol HCl (Tramadol Hcl 50 Mg Tablet) 50 mg PO TID PRN PRN Reason: Pain, Severe (Pain Scale 7-10) Triamcinolone Acetonide (Triamcinolone Acet 0.1 % Cream 15 Gm Tube) 1 appl TOPICAL BID [facility]; Protocol Last Admin: 12/20/22 08:47 Dose: Not Given Home Medications Medication Instructions Recorded Confirmed Last Taken Type albuterol sulfate 2.5 mg/3 mL 1 amp inhalation QID PRN Wheezing 09/06/22 12/19/22 12/19/22 History (0.083 %) solution for nebulization alendronate 70 mg tablet 1 tab PO REESE 09/06/22 12/19/22 12/14/22 History aspirin 81 mg tablet,delayed 1 tab PO DAILY 09/06/22 12/19/22 12/19/22 History release blood sugar diagnostic ([facility] 09/06/22 10/23/22 Unknown History Verio test strips) [facility] 10/23/22 Unknown History Verio Flex Meter) diltiazem HCl 180 mg 1 cap PO DAILY 09/06/22 12/19/22 12/19/22 History capsule,extended release 24 hr (Cartia XT) ferrous sulfate 325 mg (65 mg 1 tab PO Q OTHER DAY 09/06/22 12/19/22 11/18/22 History iron) tablet (FeroSul) fluticasone 250 mcg-salmeterol 50 1 puff inhalation BID 09/06/22 12/19/22 12/19/22 History mcg/dose blistr powdr for inhalation (Advair Diskus) fluticasone propionate 50 2 spray intranasal DAILY 09/06/22 12/19/22 12/19/22 History mcg/actuation nasal spray,suspension furosemide 80 mg tablet 1 tab PO BIDWM 09/06/22 12/19/22 12/19/22 History lancets 33 gauge (OneTouch Delica 09/06/22 10/23/22 Unknown History Plus Lancet) methylcellulose (laxative) 500 mg 1 tab PO DAILY 09/06/22 12/19/22 12/19/22 History tablet (Fiber Laxative (methylcellulose)) sennosides 8.6 mg tablet (senna) 1 tab PO BID PRN constipation 09/06/22 12/19/22 Unknown History tramadol 50 mg tablet 1 tab PO TID PRN pain 09/06/22 12/19/22 Unknown History albuterol sulfate 90 mcg/actuation 2 puff inhalation Q4-6H PRN 10/23/22 12/19/22 Unknown History aerosol inhaler (Ventolin HFA) Wheezing atorvastatin 80 mg tablet 80 mg PO DAILY 10/23/22 12/19/22 12/19/22 History carvedilol 3.125 mg tablet 3.125 mg PO BID 10/23/22 12/19/22 12/19/22 History losartan 100 mg tablet 100 mg PO DAILY 10/23/22 12/19/22 12/19/22 History metformin 850 mg tablet 850 mg PO BIDWM 10/23/22 12/19/22 12/18/22 History triamcinolone acetonide 0.1 % 1 appl topical BID 12/19/22 12/19/22 Unknown History topical cream Physical Exam Vital Signs: Vital Signs: Last Vital Signs Temp 96.9 F 12/20/22 07:15 Pulse 98 12/20/22 07:15 Resp 20 12/20/22 07:15 BP 184/99 H 12/20/22 07:15 Pulse Ox 99 12/20/22 07:15 O2 Del Method 12/20/22 07:15 BMI result Body Mass Index 38.9 Const: General: cooperative Orientation/consciousness: patient oriented x3 HEENT: Head: Yes normal to inspection, Yes normocephalic and Yes atraumatic Eyes: Conjunctivae: conjunctivae normal Neck: Neck: Yes normal visual inspection and Yes trachea midline Chest: Chest palpation & inspection: normal inspection of the chest Resp: Effort & Inspection: normal respiratory effort Cardio: Rate: regular rate GI: Inspection: Yes normal to inspection Palpation (GI): Soft to palpation : General: Yes CVA tenderness on the right Back/Spine/Pelvis: Back: CVA tenderness Neuro: General: patient oriented x3 Extrem: General: Yes edema (pedal) Psych: Appearance: grossly normal Results Labs 12/19/22 10:20 12/20/22 08:10 Labs: Abnormal lab results 12/19/22 12/19/22 12/20/22 Range/Units 16:11 21:24 07:24 BUN (9-16) mg/dL Creatinine (0.5-1.4) mg/dL POC Glucose 166 H (60-115) mg/dL Random Glucose (60-115) mg/dL B-Natriuretic Peptide 328 H (<100) pg/mL Urine Blood Trace H (Negative) Ur Leukocyte Esterase Large (3+) H (Negative) Urine RBC 6-10 H (0-2) /HPF Urine WBC 11-20 H (0-5) /HPF 12/20/22 Range/Units 08:10 BUN 39 H (9-16) mg/dL Creatinine 2.31 H (0.5-1.4) mg/dL POC Glucose (60-115) mg/dL Random Glucose 178 H (60-115) mg/dL B-Natriuretic Peptide (<100) pg/mL Urine Blood (Negative) Ur Leukocyte Esterase (Negative) Urine RBC (0-2) /HPF Urine WBC (0-5) /HPF BMP 12/20/22 08:10 Sodium 141 Potassium 4.1 Chloride 102 Carbon Dioxide 23 BUN 39 H Creatinine 2.31 H Calcium 9.2 Liver Function 12/19/22 Range/Units 10:20 Total Bilirubin 0.6 (0.0-1.0) mg/dL Direct Bilirubin < 0.2 (0.0-0.5) mg/dL AST 20 (5-31) U/L ALT 16 (0-31) U/L Alkaline Phosphatase 102 (39-117) U/L Albumin 3.9 (3.5-5.0) g/dL Urine 12/19/22 Range/Units 16:11 Urine Color Yellow Urine Appearance Clear Urine pH 7.0 (5.0-9.0) Ur Specific [place] 1.015 (1.005-1.025) Urine Protein Negative (Neg-Trace) mg/dL Urine Glucose (UA) Negative (Negative) mg/dL All other labs normal. Imaging Abdomen CT scan report/results: report reviewed and image reviewed CT scan - pelvis: report reviewed and image reviewed Additional studies: Date of Service: 12/19/22 CT ABDOMEN AND PELVIS WITHOUT CONTRAST? CLINICAL INFORMATION: Abdominal pain. History of kidney stones.? COMPARISON: 09/10/2021? FINDINGS: LUNG BASES: Bibasilar atelectasis. Minimal coronary artery calcification.? LIVER, GALLBLADDER, AND BILIARY TREE: The liver is normal in size, shape, and attenuation. No focal hepatic lesion or biliary ductal dilatation is present. The gallbladder is unremarkable with no evidence of radiopaque gallstones, gallbladder wall thickening, or obvious pericholecystic inflammatory changes.? PANCREAS: Unremarkable.? SPLEEN: Unremarkable.? ADRENAL GLANDS: Unremarkable.? KIDNEYS AND URETERS: The kidneys are normal in size, shape, and attenuation. There is a prominent exophytic left midpole renal cyst with a thin rim of calcification. This is unchanged from previous. Mild left hydronephrosis with dilated renal pelvis. The ureter is decompressed. There is a nonobstructing left lower pole 0.8 cm calculus which is 12 cm from the posterior axillary line. This measures 685 Hounsfield units. On the right there is mild hydronephrosis with dilatation of the renal pelvis. The ureter is decompressed. No right-sided calculi are seen. BLADDER: Unremarkable.? GASTROINTESTINAL TRACT: The stomach is unremarkable. Normal caliber of the small bowel. No obstruction. Normal appendix. No colonic wall thickening or inflammation. Scattered diverticulosis which is greatest at the sigmoid colon. No diverticulitis. No free air or free fluid.? ABDOMINAL WALL: Small fat-containing bilateral inguinal hernias.? LYMPH NODES: Normal. VASCULAR: Normal caliber aorta. Mild atherosclerotic calcification. PELVIC VISCERA: Uterus not seen. No adnexal mass.? OSSEOUS STRUCTURES: No acute or suspicious osseous abnormality. Degenerative changes throughout the spine.? IMPRESSION: 1.? Mild bilateral hydronephrosis with dilated renal pelvises. These could be UPJ obstructions. The ureters are decompressed. No obstructing calculi are seen. 2.? Nonobstructing left lower pole renal calculus. 3.? Colonic diverticulosis without diverticulitis. Assessment and Plan (1) Hydronephrosis: Qualifiers: Hydronephrosis type: with ureteropelvic junction obstruction Qualified Code(s): Q62.11 - Congenital occlusion of ureteropelvic junction Status: Acute (2) ORION (acute kidney injury): Status: Acute (3) Obstruction, uropathy: Status: Acute (4) Renal cyst, acquired, left: Status: Acute (5) Kidney stone on left side: Status: Acute Plan Right hydronephrosis likely secondary to an obstructing stone that has now passed as no blocking stone was seen on the CT - she has mild CVA tenderness on the right, clinically pain has improved ORION - likely multifactorial secondary to Obstructive uropathy, infection, CHF Will monitor - if renal function not improving consider right ureteral stent placement Time Spent With Patient Time: Total time managing care of this patient today ____ minutes. Procedures Date of Service Date of Service: 12/20/22
[2022-12-20] MEDS: calcium polycarbophiL TABLET 1 TAB PO (11:53)
[2022-12-20] MEDS: Fluticasone Propionate Nasal 16 GM SPRAY 2 SPRAY NOSTRIL-B (11:54)
[2022-12-20] MEDS: polyethylene glycoL 3350 17 GM POWD.PACK PO (11:55)
[2022-12-20 12:12] LABS: Glucose, Whole Blood 192 mg/dL (60-115)
--- NOTE | 2022-12-20 15:15 | MHC.CM.PN ---
IMM 12/20/22, EMR REVIEWED, CM MET W/PT VIA [employer], PT REPORTS SHE LIVES IN AN APT ALONE, HAS A CANE/WALKER/SHOWER CHAIR FOR DME, PT REPORTS HER DTR IS HER [facility] HOWEVER SHE IS NOT SURE HOW MANY HRS SHE RECEIVES BECAUSE HER DTR COMES OVER DAILY. PT CONFIRMS PCP IS CLAIER SILVA, HINA X2 AND HCP IS DTR [facility] [phone] AND COPY ON FILE FROM PREVIOUS VISIT. ANTIC PT W/D/C HOME W/RESUMP OF [facility]/FAMILY SUPPORT ONCE MEDICALLY CLEARED W/FAMILY FOR TRANSPORT
[2022-12-20 20:18] LABS: Glucose, Whole Blood 141 mg/dL (60-115)
[2022-12-20] MEDS: cefTRIAXone sodium 1 GM in 0.9 % Sodium Chloride 50 ML IV (20:18)
[2022-12-20] MEDS: Sennosides 8.6 MG TABLET PO (20:18)
[2022-12-20] MEDS: Enoxaparin Sodium 40 MG/0.4 ML SYRINGE SUBCUT (20:18)
[2022-12-20] MEDS: Triamcinolone Acet 0.1 % Cream 15 GM TUBE 1 APPL TOPICAL (20:27)
[2022-12-21] VITALS (9 sets, daily range): BP systolic 144–181; BP diastolic 65–99; PULSE 75–123; RESP 16–20; TEMP 36.1–37.2; O2SAT 92–98
[2022-12-21] MEDS: hydrALAZINE HCl 20 MG/ML VIAL 10 MG IVPUSH (03:38)
[2022-12-21] MEDS: Fluticasone Propionate Nasal 16 GM SPRAY 2 SPRAY NOSTRIL-B (07:49)
[2022-12-21] MEDS: Furosemide 40 MG/4 ML VIAL IVPUSH (07:49)
[2022-12-21] MEDS: polyethylene glycoL 3350 17 GM POWD.PACK PO (07:49)
[2022-12-21] MEDS: carvediloL 3.125 MG TABLET PO (07:50)
[2022-12-21] MEDS: Famotidine 20 MG TABLET PO ×2 (07:50→22:03)
[2022-12-21] MEDS: Losartan Potassium 50 MG TABLET 100 MG PO (07:50)
[2022-12-21] MEDS: calcium polycarbophiL TABLET 1 TAB PO (07:50)
[2022-12-21] MEDS: Aspirin Enteric Coated 81 MG TABLET.DR PO (07:50)
[2022-12-21] MEDS: dilTIAZem HCL CD 180 MG CAP.ER.24H PO (07:50)
[2022-12-21] MEDS: 0.9 % Sodium Chloride Flush 3 ML SYRINGE IVFLUSH ×2 (07:51→17:05)
[2022-12-21] MEDS: Fluticasone/Vilanterol 100/25 BLST.W.DEV 1 PUFF INHALE (07:51)
[2022-12-21] MEDS: Atorvastatin Calcium 80 MG TABLET PO (07:51)
[2022-12-21] MEDS: Docusate Sodium 100 MG CAPSULE PO ×2 (07:54→22:03)
[2022-12-21] MEDS: Insulin Lispro 100 UNIT/ML 3 ML VIAL SUBCUT ×4 (07:59→22:01)
[2022-12-21] MEDS: Triamcinolone Acet 0.1 % Cream 15 GM TUBE 1 APPL TOPICAL (08:02)
[2022-12-21 08:11] LABS: Glucose, Whole Blood 164 mg/dL (60-115)
[2022-12-21 08:31] LABS: Anion Gap 19 (12-20); Blood Urea Nitrogen 44 mg/dL (9-16); Calcium 8.9 mg/dL (8.4-10.2); Carbon Dioxide 25 mmol/L (22-29); Chloride 101 mmol/L (96-108); Creatinine Clr Calc Pharmacy 17.9; Estimated Glomerular Filt Rate 16; Glucose Random 172 mg/dL (60-115); Potassium 3.9 mmol/L (3.3-5.1); Sodium 141 mmol/L (135-145)
--- NOTE | 2022-12-21 10:54 | HO.PM.IMPN ---
Subjective Subjective Date of Service: 12/21/22 Interval History: Seen in f/u for ORION, acute heart failure, obstructive Patient is doing better today with no respiratory difficulty c/o constipation Physical Exam Vital Signs: Vital Signs: Last Vital Signs Temp 98.2 F 12/21/22 07:58 Pulse 114 H 12/21/22 07:58 Resp 20 12/21/22 07:58 BP 172/86 H 12/21/22 07:58 Pulse Ox 96 12/21/22 07:58 O2 Del Method 12/21/22 07:58 BMI result Body Mass Index 38.9 Const: Other: General: AO X 3, no acute distress Resp: decrease air movment CVS: S1,S2,RRR, 3+ leg edma GI: +BS, NT, no distention Skin: No rash Neuro: motor grossly intact Psych: appropriate affect Objective Data Active Medications Acetaminophen (Acetaminophen 325 Mg Tablet) 650 mg PO Q6H PRN PRN Reason: Pain, Mild (Pain Scale 1-3) Last Admin: 12/20/22 01:43 Dose: 650 mg Documented By: GUERDA Albuterol Sulfate (Albuterol Sulfate (0.083%) 2.5 Mg/3 Ml Vial.Neb) 2.5 mg INHALE QID PRN PRN Reason: Wheezing Albuterol Sulfate (Albuterol Sulfate 90 Mcg 8 Gm Inhaler) 2 puff INHALE Q4H PRN PRN Reason: Wheezing Last Admin: 12/20/22 11:53 Dose: 2 puff Documented By: ANDREINA Aspirin (Aspirin Enteric Coated 81 Mg Tablet.) 81 mg PO DAILY [facility] Last Admin: 12/21/22 07:50 Dose: 81 mg Documented By: FE Atorvastatin Calcium (Atorvastatin Calcium 80 Mg Tablet) 80 mg PO DAILY [facility] Last Admin: 12/21/22 07:51 Dose: 80 mg Documented By: FE Calcium Polycarbophil (Calcium Polycarbophil Tablet) 1 tab PO DAILY [facility] Last Admin: 12/21/22 07:50 Dose: 1 tab Documented By: FE Carvedilol (Carvedilol 3.125 Mg Tablet) 3.125 mg PO BID [facility]; Protocol Last Admin: 12/21/22 07:50 Dose: 3.125 mg Documented By: FE Diltiazem HCl (Diltiazem Hcl Cd 180 Mg Cap.Er.24h) 180 mg PO DAILY [facility]; Protocol Last Admin: 12/21/22 07:50 Dose: 180 mg Documented By: FE Docusate Sodium (Docusate Sodium 100 Mg Capsule) 100 mg PO DAILY PRN PRN Reason: Constipation Last Admin: 12/20/22 04:38 Dose: 100 mg Documented By: TRELL Docusate Sodium (Docusate Sodium 100 Mg Capsule) 100 mg PO BID [facility] Last Admin: 12/21/22 07:54 Dose: 100 mg Documented By: FE Enoxaparin Sodium (Enoxaparin Sodium 40 Mg/0.4 Ml Syringe) 40 mg SUBCUT Q24H [facility] Last Admin: 12/20/22 20:18 Dose: 40 mg Documented By: KATHLEEN Famotidine (Famotidine 20 Mg Tablet) 20 mg PO BID [facility] Last Admin: 12/21/22 07:50 Dose: 20 mg Documented By: FE Ferrous Sulfate (Ferrous Sulfate 324 Mg Tablet.Dr) 324 mg PO Q2D@0900 [facility] Last Admin: 12/20/22 08:39 Dose: 324 mg Documented By: NORRIS Fluticasone Propionate (Fluticasone Propionate Nasal 16 Gm [place]) 2 spray NOSTRIL-B DAILY [facility] Last Admin: 12/21/22 07:49 Dose: 2 spray Documented By: FE Fluticasone/Vilanterol (Fluticasone/Vilanterol 100/25 Blst.W.Dev) 1 puff INHALE RDAILY [facility] Last Admin: 12/21/22 07:51 Dose: 1 puff Documented By: VENECIA Furosemide (Furosemide 40 Mg/4 Ml Vial) 40 mg IVPUSH BID@0900,1800 [facility]; Protocol Last Admin: 12/21/22 07:49 Dose: 40 mg Documented By: FE Hydralazine HCl (Hydralazine Hcl 20 Mg/Ml Vial) 10 mg IVPUSH Q6H PRN; Protocol PRN Reason: for SBP > 180 Last Admin: 12/21/22 03:38 Dose: 10 mg Documented By: KATHLEEN Ceftriaxone Sodium 1 gm/ (Sodium Chloride) 50 mls @ 100 mls/hr IV Q24H [facility] Last Infusion: 12/20/22 21:01 Dose: 0 mls/hr Documented By: KATHLEEN Insulin Human Lispro (Insulin Lispro 100 Unit/Ml 3 Ml Vial) 0 unit SUBCUT QIDACHS [facility]; Protocol Last Admin: 12/21/22 07:59 Dose: 2 unit Documented By: FE Losartan Potassium (Losartan Potassium 50 Mg Tablet) 100 mg PO DAILY [facility]; Protocol Last Admin: 12/21/22 07:50 Dose: 100 mg Documented By: FE Magnesium Hydroxide (Milk Of Magnesia 30 Ml Oral.Susp) 30 ml PO BID PRN PRN Reason: Constipation Nitroglycerin (Nitroglycerin 2 % Oint 1 Gm Packet) 1 inch TRANSDERMA RQ6H WHILE AWAKE PRN PRN Reason: sob Ondansetron HCl (Ondansetron Hcl 4 Mg/2 Ml Vial) 4 mg IVPUSH Q8H PRN PRN Reason: Nausea and Vomiting Pharmacy Consult (Consult Rx Perform Med Rec) 1 each MISCELLANE ONCE PRN PRN Reason: Consult order Polyethylene Glycol (Polyethylene Glycol 3350 17 Gm Powd.Pack) 17 gm PO DAILY [facility] Last Admin: 12/21/22 07:49 Dose: 17 gm Documented By: FE Polyethylene Glycol (Polyethylene Glycol 3350 17 Gm Powd.Pack) 17 gm PO DAILY PRN PRN Reason: Constipation Senna (Sennosides 8.6 Mg Tablet) 8.6 mg PO BID PRN PRN Reason: constipation Last Admin: 12/20/22 20:18 Dose: 8.6 mg Documented By: KATHLEEN Simethicone (Simethicone 80 Mg Tab.Chew) 120 mg PO QID PRN PRN Reason: Indigestion Sodium Chloride (0.9 % Sodium Chloride Flush 3 Ml Syringe) 3 ml IVFLUSH QSHIFT [facility] Last Admin: 12/21/22 07:51 Dose: 3 ml Documented By: FE Tramadol HCl (Tramadol Hcl 50 Mg Tablet) 50 mg PO TID PRN PRN Reason: Pain, Severe (Pain Scale 7-10) Triamcinolone Acetonide (Triamcinolone Acet 0.1 % Cream 15 Gm Tube) 1 appl TOPICAL BID [facility]; Protocol Last Admin: 12/21/22 08:02 Dose: 1 appl Documented By: FE Labs 12/19/22 10:20 12/21/22 08:09 Labs: Laboratory Results - last 24 hr 12/20/22 12/20/22 12/21/22 11:53 20:15 08:00 Anion Gap Estim Creat Clear Calc Estimated GFR POC Glucose 192 H 141 H 164 H Random Glucose Calcium 12/21/22 08:09 Anion Gap 19 Estim Creat Clear Calc 17.9 Estimated GFR 16 POC Glucose Random Glucose 172 H Calcium 8.9 Microbiology Microbiology Results: Microbiology 12/19/22 16:30 Urine Culture - Final Urine clean catch - Urine holliday top 12/19/22 21:24 Blood Culture - Preliminary Blood - Venous No growth after 24 hours. 12/19/22 21:24 Blood Culture - Preliminary Blood - Venous No growth after 24 hours. Assessment and Plan (1) Kidney stone on left side: Status: Acute (2) Hydronephrosis: Status: Acute (3) ORION (acute kidney injury): Status: Acute Plan 77-year-old female with past medical history of diabetes, history of CHF, AFib, asthma, hypertension, hyperlipidemia, history of alcohol abuse presents to the hospital with complaints of right flank pain found to have the following #Acute respiratory distress anxiety probably ? related to CHF, managment for CHF as below and and symptomatic treatment for anxiety, repeat cxr # acute unspecified CHF exacerbation manifested by elevated BNP, lower extremity edema, orthopnea and PND - takes 80 mg of Lasix at home - will treat with IV Lasix, strict I&O, daily weight, low-sodium diet - echocardiogram tomorrow, cardiology consulte # hydronephrosis- d/t obstructive stone, since kidney function worsening, will need cysto #UTI--Ceftriaxone # ORION- ? obstructive uropathy Nephrology consult # diabetes - hold metformin d/t renl failure -SSI # history of AFib - continue carvedilol, diltiazem, does not appear to be on anticoagulation at this time per med rec, will add eliquis when renal function is better and after uro procedue Of note patient stated to pharmacy that she takes Pradaxa 150 mg daily, I am unable to verify this information based on chart review, pharmacy unable to verify the medication, this time with placed on hold DVT prophylaxis:? Lovenox Need for inaptient: ORION, acute heart failure that need IV diuretics and monitoring of labs and possible additional work up Due to ongoing acute respiraotry distress, tachycardia, will transfer to [facility] Time Spent With Patient Time: Total time managing care of this patient today ____ minutes. Quality Stroke Does the patient have a stroke diagnosis?: No VTE Prior VTE?: No VTE Risk Level:: Medical - moderate - high VTE Device Contraindication: Treatment Not Indicated VTE Drug Contraindication: N/A - Med Ordered
[2022-12-21 11:23] LABS: Glucose, Whole Blood 153 mg/dL (60-115)
--- NOTE | 2022-12-21 11:31 | PM.CNCAR ---
History of Present Illness History of Present Illness Date of Service: 12/21/22 Requesting physician: [facility] Consult reason: atrial fibrillation and congestive heart failure Chief complaint: Hydronephrosis, ORION, UTI Narrative: I was consulted to see Roseanna in cardiology consultation today for yesterday having respiratory distress and atrial fibrillation rapid ventricular response. History was obtained from the patient and patient's daughter at bedside. Patient 77-year-old female admitted with right flank pain noted to hydronephrosis related to renal stone is acute kidney injury. Kidney function appears still elevated and there was still hydronephrosis. Yesterday she got anxious blood pressure is elevated with rapid heart rate and has shortness of breath. It was felt that this was probably related to anxiety. She was treated for anxiety as well as given IV diuresis and rate control. She improved with improved blood pressure. Currently appears very comfortable. Denies any shortness of breath or palpitation. Heart rate is better controlled. Blood pressure is better controlled. As per the daughter she gets very anxious related to personal issues and then a blood pressure heart rate goes up. She denies any chest pain. Denies any lightheadedness, syncope. No significant leg edema. As per the daughter she has diuresed well although intake and output chart again are not adequately charted Review of Systems Constitutional: Constitutional: Reports no additional constitutional complaints Cardiovascular: Cardiovascular: Reports no additional cardiovascular complaints, Denies chest pain, Denies leg edema, Denies lightheadedness, Denies palpitations, Denies dyspnea and Denies orthopnea Respiratory: Respiratory: Reports no additional respiratory complaints and Denies dyspnea Gastrointestinal: Gastrointestinal: Reports no additional gastrointestinal complaints Genitourinary: Genitourinary: Reports no additional female genitourinary complaints Musculoskeletal: Musculoskeletal: Reports no additional musculoskeletal complaints Integumentary/Breasts: Skin/Breast: Reports system reviewed and no additional complaints, except as docu Neurologic: Reports system reviewed and no additional complaints, except as documented Endocrine: Endocrine: Reports no additional endocrine complaints and Denies palpitations [facility] Past Medical History Medical History Alcohol abuse Arthritis Asthma Atrial fibrillation COPD (chronic obstructive pulmonary disease) Diabetes Gout Hypertension Hypertension Knee arthropathy Nephrolithiasis Osteoarthritis Thrombosed external hemorrhoid Surgical History Surgical History History of total knee arthroplasty Hx of colonoscopy Social History Social History Household Members: None Housing: Apartment Housing Other:: low income housing Do you presently have visiting nurse or other home services: No Unable to assess alcohol history related to: Unknown Alcohol intake: never Patient Tobacco Use Status: Never used Tobacco Smoked in Last 30 Days: No e-Cigarette/Vaping Use: Never Used Patient Interested in Nicotine Replacement: No Second Hand Smoke Exposure: No Use of substances other than those prescribed or required for medical reasons: No Currently Displaying Signs/Symptoms of Drug Intoxication Withdrawal: No Any prior treatment program specific to substance use: No Have you been hit, kicked, punched, or otherwise hurt by someone within the past year? If so, by whom?: No Do you feel safe in your current relationship?: No Current Relationship Is there a partner from a previous relationship who is making you feel unsafe now?: No Are you made to feel afraid or neglected: No Advance Directives: No Advance Directives Information Provided: Yes Do you have thoughts of harming others: None Do you have a plan to hurt others: No Plan Recently lost weight without trying: No Eating poorly because of decreased appetite: No Nutrition Risks: No Nutritional Risk Patient : No : No Poor oral hygiene: No service: No Current occupational status: unemployed Meds Allergies Allergy/AdvReac Type Severity Reaction Status Date / Time montelukast [Singulair] Allergy Unknown itching/marysol Verified 11/25/22 11:32 h From Singulair Allergy Intermediate RASH Uncoded 11/25/22 11:32 Active Medications: Current Medications Acetaminophen (Acetaminophen 325 Mg Tablet) 650 mg PO Q6H PRN PRN Reason: Pain, Mild (Pain Scale 1-3) Last Admin: 12/20/22 01:43 Dose: 650 mg Albuterol Sulfate (Albuterol Sulfate (0.083%) 2.5 Mg/3 Ml Vial.Neb) 2.5 mg INHALE QID PRN PRN Reason: Wheezing Albuterol Sulfate (Albuterol Sulfate 90 Mcg 8 Gm Inhaler) 2 puff INHALE Q4H PRN PRN Reason: Wheezing Last Admin: 12/20/22 11:53 Dose: 2 puff Aspirin (Aspirin Enteric Coated 81 Mg Tablet.) 81 mg PO DAILY [facility] Last Admin: 12/21/22 07:50 Dose: 81 mg Atorvastatin Calcium (Atorvastatin Calcium 80 Mg Tablet) 80 mg PO DAILY [facility] Last Admin: 12/21/22 07:51 Dose: 80 mg Calcium Polycarbophil (Calcium Polycarbophil Tablet) 1 tab PO DAILY [facility] Last Admin: 12/21/22 07:50 Dose: 1 tab Carvedilol (Carvedilol 3.125 Mg Tablet) 6.5 mg PO BID [facility]; Protocol Diltiazem HCl (Diltiazem Hcl Cd 180 Mg Cap.Er.24h) 180 mg PO DAILY [facility]; Protocol Last Admin: 12/21/22 07:50 Dose: 180 mg Docusate Sodium (Docusate Sodium 100 Mg Capsule) 100 mg PO DAILY PRN PRN Reason: Constipation Last Admin: 12/20/22 04:38 Dose: 100 mg Docusate Sodium (Docusate Sodium 100 Mg Capsule) 100 mg PO BID [facility] Last Admin: 12/21/22 07:54 Dose: 100 mg Enoxaparin Sodium (Enoxaparin Sodium 40 Mg/0.4 Ml Syringe) 40 mg SUBCUT Q24H [facility] Last Admin: 12/20/22 20:18 Dose: 40 mg Famotidine (Famotidine 20 Mg Tablet) 20 mg PO BID [facility] Last Admin: 12/21/22 07:50 Dose: 20 mg Ferrous Sulfate (Ferrous Sulfate 324 Mg Tablet.) 324 mg PO Q2D@0900 [facility] Last Admin: 12/20/22 08:39 Dose: 324 mg Fluticasone Propionate (Fluticasone Propionate Nasal 16 Gm [place]) 2 spray NOSTRIL-B DAILY [facility] Last Admin: 12/21/22 07:49 Dose: 2 spray Fluticasone/Vilanterol (Fluticasone/Vilanterol 100/25 Blst.W.Dev) 1 puff INHALE RDAILY [facility] Last Admin: 12/21/22 07:51 Dose: 1 puff Hydralazine HCl (Hydralazine Hcl 20 Mg/Ml Vial) 10 mg IVPUSH Q6H PRN; Protocol PRN Reason: for SBP > 180 Last Admin: 12/21/22 03:38 Dose: 10 mg Ceftriaxone Sodium 1 gm/ (Sodium Chloride) 50 mls @ 100 mls/hr IV Q24H [facility] Last Infusion: 12/20/22 21:01 Dose: Infused Insulin Human Lispro (Insulin Lispro 100 Unit/Ml 3 Ml Vial) 0 unit SUBCUT QIDACHS [facility]; Protocol Last Admin: 12/21/22 07:59 Dose: 2 unit Losartan Potassium (Losartan Potassium 50 Mg Tablet) 100 mg PO DAILY [facility]; Protocol Last Admin: 12/21/22 07:50 Dose: 100 mg Magnesium Hydroxide (Milk Of Magnesia 30 Ml Oral.Susp) 30 ml PO BID PRN PRN Reason: Constipation Nitroglycerin (Nitroglycerin 2 % Oint 1 Gm Packet) 1 inch TRANSDERMA RQ6H WHILE AWAKE PRN PRN Reason: sob Ondansetron HCl (Ondansetron Hcl 4 Mg/2 Ml Vial) 4 mg IVPUSH Q8H PRN PRN Reason: Nausea and Vomiting Pharmacy Consult (Consult Rx Perform Med Rec) 1 each MISCELLANE ONCE PRN PRN Reason: Consult order Polyethylene Glycol (Polyethylene Glycol 3350 17 Gm Powd.Pack) 17 gm PO DAILY [facility] Last Admin: 12/21/22 07:49 Dose: 17 gm Polyethylene Glycol (Polyethylene Glycol 3350 17 Gm Powd.Pack) 17 gm PO DAILY PRN PRN Reason: Constipation Senna (Sennosides 8.6 Mg Tablet) 8.6 mg PO BID PRN PRN Reason: constipation Last Admin: 12/20/22 20:18 Dose: 8.6 mg Simethicone (Simethicone 80 Mg Tab.Chew) 120 mg PO QID PRN PRN Reason: Indigestion Sodium Chloride (0.9 % Sodium Chloride Flush 3 Ml Syringe) 3 ml IVFLUSH QSHIFT [facility] Last Admin: 12/21/22 07:51 Dose: 3 ml Tramadol HCl (Tramadol Hcl 50 Mg Tablet) 50 mg PO TID PRN PRN Reason: Pain, Severe (Pain Scale 7-10) Triamcinolone Acetonide (Triamcinolone Acet 0.1 % Cream 15 Gm Tube) 1 appl TOPICAL BID [facility]; Protocol Last Admin: 12/21/22 08:02 Dose: 1 appl Home Medications Medication Instructions Recorded Confirmed Last Taken Type albuterol sulfate 2.5 mg/3 mL 1 amp inhalation QID PRN Wheezing 09/06/22 12/19/22 12/19/22 History (0.083 %) solution for nebulization alendronate 70 mg tablet 1 tab PO REESE 09/06/22 12/19/22 12/14/22 History aspirin 81 mg tablet,delayed 1 tab PO DAILY 09/06/22 12/19/22 12/19/22 History release blood sugar diagnostic ([facility] 09/06/22 10/23/22 Unknown History Verio test strips) blood-glucose meter ([facility] 09/06/22 10/23/22 Unknown History Verio Flex Meter) diltiazem HCl 180 mg 1 cap PO DAILY 09/06/22 12/19/22 12/19/22 History capsule,extended release 24 hr (Cartia XT) ferrous sulfate 325 mg (65 mg 1 tab PO Q OTHER DAY 09/06/22 12/19/22 11/18/22 History iron) tablet (FeroSul) fluticasone 250 mcg-salmeterol 50 1 puff inhalation BID 09/06/22 12/19/22 12/19/22 History mcg/dose blistr powdr for inhalation (Advair Diskus) fluticasone propionate 50 2 spray intranasal DAILY 09/06/22 12/19/22 12/19/22 History mcg/actuation nasal spray,suspension furosemide 80 mg tablet 1 tab PO BIDWM 09/06/22 12/19/22 12/19/22 History lancets 33 gauge ([facility] Delica 09/06/22 10/23/22 Unknown History Plus Lancet) methylcellulose (laxative) 500 mg 1 tab PO DAILY 09/06/22 12/19/22 12/19/22 History tablet (Fiber Laxative (methylcellulose)) sennosides 8.6 mg tablet (senna) 1 tab PO BID PRN constipation 09/06/22 12/19/22 Unknown History tramadol 50 mg tablet 1 tab PO TID PRN pain 09/06/22 12/19/22 Unknown History albuterol sulfate 90 mcg/actuation 2 puff inhalation Q4-6H PRN 10/23/22 12/19/22 Unknown History aerosol inhaler (Ventolin HFA) Wheezing atorvastatin 80 mg tablet 80 mg PO DAILY 10/23/22 12/19/22 12/19/22 History carvedilol 3.125 mg tablet 3.125 mg PO BID 10/23/22 12/19/22 12/19/22 History losartan 100 mg tablet 100 mg PO DAILY 10/23/22 12/19/22 12/19/22 History metformin 850 mg tablet 850 mg PO BIDWM 10/23/22 12/19/22 12/18/22 History triamcinolone acetonide 0.1 % 1 appl topical BID 12/19/22 12/19/22 Unknown History topical cream Physical Exam Vital Signs: Vital Signs: Last Vital Signs Temp 98.0 F 12/21/22 11:04 Pulse 82 12/21/22 11:04 Resp 20 12/21/22 11:04 BP 149/65 H 12/21/22 11:04 Pulse Ox 97 12/21/22 11:04 O2 Del Method 12/21/22 11:04 BMI result Body Mass Index 38.9 Const: General: cooperative, comfortable, no acute distress, alert and awake Nutritional Appearance: obese Orientation/consciousness: patient oriented x3 HEENT: Head: Yes normocephalic and Yes atraumatic Neck: Neck: Yes trachea midline, Yes supple and Yes no JVD Resp: Effort & Inspection: normal respiratory effort Auscultation: clear to auscultation bilaterally Cardio: Jugular venous distension: no JVD Rate: regular rate Rhythm: abnormal rhythm irregularly irregular Heart sounds: S1 normal heart sound present, S2 normal heart sound present, no click, no gallops and no murmurs GI: Auscultation: normal bowel sounds Skin: General skin exam: no rashes or lesions noted Neuro: General: patient oriented x3 and no focal motor deficits Objective Labs and Meds 12/19/22 10:20 12/21/22 08:09 Lab results: Laboratory Results - last 24 hr 12/20/22 12/20/22 12/21/22 11:53 20:15 08:00 Sodium Potassium Chloride Carbon Dioxide Anion Gap BUN Creatinine Estim Creat Clear Calc Estimated GFR POC Glucose 192 H 141 H 164 H Random Glucose Calcium 12/21/22 12/21/22 08:09 11:08 Sodium 141 Potassium 3.9 Chloride 101 Carbon Dioxide 25 Anion Gap 19 BUN 44 H Creatinine 2.80 H Estim Creat Clear Calc 17.9 Estimated GFR 16 POC Glucose 153 H Random Glucose 172 H Calcium 8.9 Assessment and Plan (1) CHF exacerbation: Status: Acute Patient's today respiratory distress and setting of anxiety with elevated blood pressure rapid heart rate. Got better with treatment of her blood pressures were better rate control and antianxiety treatment diuresis. Clinically appears to be well compensated and euvolemic without any significant respiratory distress. Can switch to p.o. Lasix. Continue rate control strategy. Discussed with patient patient's daughter for stress mitigation strategies avoid anxiety. Continue aggressive blood pressure control can maximize carvedilol therapy as long as the heart rate is above 60 beats per minute. Can switch to p.o. Lasix. Heart failure management was discussed with her. Continue to monitor renal function and management as per the hospitalist and Neurology team. If she is required to undergo urology procedure, she is optimized to undergo this procedure with intermediate perioperative risk for cardiovascular morbidity mortality. (2) Atrial fibrillation: Status: Acute Atrial fibrillation adequately rate control at this point time since control of her anxiety. Continue Cardizem and maximize carvedilol therapy for both blood pressure control as well as better heart rate control. Currently would hold her oral anticoagulation till renal function started improving. Then can resume her usual oral anticoagulation therapy based on renal function. She usually follows with Dr. Hwang as outpatient. Sign of the case at this point time. Thank you for allowing me to partake in her care Time Spent With Patient Time: Total time managing care of this patient today ____ minutes. Procedures Date of Service Date of Service: 12/21/22
[2022-12-21] MEDS: Milk of Magnesia 30 ML ORAL.SUSP PO (13:10)
[2022-12-21 17:09] LABS: Glucose, Whole Blood 164 mg/dL (60-115)
[2022-12-21 21:57] LABS: Glucose, Whole Blood 163 mg/dL (60-115)
[2022-12-21] MEDS: cefTRIAXone sodium 1 GM in 0.9 % Sodium Chloride 50 ML IV (22:01)
[2022-12-21] MEDS: Enoxaparin Sodium 30 MG/0.3 ML SYRINGE SUBCUT (22:03)
--- NOTE | 2022-12-21 22:27 | PC.NURSE ---
Pt shaking her legs nonstop, says it feels like worm or pins and needles and itchy. She says that she suffers from this at home especially at night and can't sleep when this happens and is very anxious right now.She says i's not painful. It's just very uncomfortable. MD Echols notified, see new orders.
[2022-12-21] MEDS: carvediloL 6.25 MG TABLET PO (22:35)
[2022-12-21] MEDS: rOPINIRole HCL 2 MG TABLET PO (22:35)
[2022-12-22] VITALS (13 sets, daily range): BP systolic 124–179; BP diastolic 60–88; PULSE 62–93; RESP 13–20; TEMP 36.1–37.7; O2SAT 92–98
[2022-12-22] MEDS: 0.9 % Sodium Chloride Flush 3 ML SYRINGE IVFLUSH ×3 (02:14→20:10)
--- NOTE | 2022-12-22 05:13 | PC.NURSE ---
Pt on strict I&Os. Pt ambulated to BR without calling and urinated in toilet and did not use BSC with hat in it. Now there is a hat in bathroom and BSC.
--- NOTE | 2022-12-22 07:00 | CA_ITS ---
Transthoracic Echocardiogram Patient (Last, First, Middle): Roseanna Hurt, Gender: Female Date of : 1945 Age: 77 Procedure Date: 12/22/2022 Procedure Type: Transthoracic E[place]ocardiogram [place] [facility] [place]: 157.48 cm Weight: 96.16 kg BSA: 1.96 m2 Heart Rate: 79 bpm BP: 163 / 82 mmHg Industrial Engineering Manager: CHAPO Hancock MD: Jorge Wiley MD Litigation Counsel: Nomi Nichols MD Symptoms: CHF Study Quality: Adequate/Contrast ECG Rhythm: Atrial Fibrillation Conclusions: - 1. Normal LV systolic function 2. At least moderately dilated left atrium 3. Normal cardiac valvular Doppler 4. No gross pericardial effusion Findings Procedure Information Contrast agent, definity, is being given per protocol without apparent complications. Left Ventricle Normal left ventricular size, thickness, and systolic function. The visually estimated ejection fraction is between 55-60%. Diastolic function is indeterminate on the basis of available data. Right Ventricle Normal right ventricular cavity size. There is mild to moderately decreased right ventricular systolic function. Atria The left atrium is moderately dilated. There is no evidence of interatrial shunt. The right atrium is likely dilated. Aortic Valve The aortic valve was not well visualized. There is mild calcification of the aortic valve. There is no aortic valve stenosis. There is no aortic valve regurgitation. Mitral Valve There is mild anterior and posterior mitral leaflet thickening. There is mild mitral annular calcification. There is mild mitral valve regurgitation. There is no mitral valve stenosis. Pulmonic Valve The pulmonic valve was not well visualized. Tricuspid Valve Likely normal tricuspid valve structure and function. Tricuspid regurgitation envelope is inadequate for calculation of right ventricular systolic pressure. Normal right atrial pressure. Great Vessels All visible segments of the aorta are normal in size. The pulmonary artery was not well visualized. Venous The inferior vena cava is mildly dilated and collapses greater than 50% with inspiration. Pericardium/Pleural There is no evidence of pericardial effusion. Prior Study Comparison No significant change compared to prior study dated: 11/10/2017. Measurements 2D Linear Measurements IVSd: 0.99 0.6-0.9/0.6-1.0 cm LVIDd: 4.20 3.9-5.3/4.2-5.9 cm LVIDd Index: 2.14 2.4-3.2/2.2-3.1 cm/m2 LVIDs: 2.76 2.0-3.6 cm LVPWd: 1.14 0.7-1.1 cm LA Diam: 4.90 2.7-3.8/3.0-4.0 cm LAIDs Index: 2.50 1.5-2.3 cm/m2 LV Mass: 186.86 67-162/88-224 g LV Mass Index: 95.33 43-95/49-115 g/m2 LVOT Diam: 2.10 3.0+(-)1.3 cm 2D Systolic Function EF 4C: 57.20 >55% EF 2C: 60.20 >55% EF BiP: 58.80 >55% Mitral Valve E'Lateral: 7.94 E'Medial: 8.70 Aortic Valve AoV Pk Kwesi: 1.36 AoV Mn Kwesi: 0.99 AoV VTI: 0.33 AoV Pk Grad: 7.00 Aov Mn Grad: 4.00 QUETA Cont.VTI: 2.07 LVOT LVOT Pk Kwesi: 0.85 LVOT Mn Kwesi: 0.62 LVOT VTI: 0.20 LVOT Pk Grad: 3.00 LVOT Mn Grad: 2.00 LVOT Diam: 2.10 LVOT Area: 3.46 Diastolic Function E'Medial: 8.70 E' Laterial: 7.94 Right Ventricle TAPSE (mm): 14.60 TVS' Kwesi: 9.08 Tricuspid Valve RA Press: 3.00 Great Vessels Aorta Sinus of Valsalva: 3.30 2.0-3.5 cm Ao Asc: 3.70 2.1-3.4 cm Pulmonary Valve PV Pk Kwesi: 1.00 Peak PV Grad: 4.00 Updated in Other Vendor System with Status of Final Nomi Nichols MD electronically signed on 12/23/2022 1:40:34 PM with status of Final
[2022-12-22] MEDS: Fluticasone/Vilanterol 100/25 BLST.W.DEV 1 PUFF INHALE (07:37)
--- NOTE | 2022-12-22 07:58 | P.PNUR_ITS ---
Subjective Subjective Date of Service: 12/22/22 Interval history: 77-year-old female with past medical history of asthma, AFib, COPD, diabetes, HTN, HLD, presented to the ED 12/19/22 with complaints of right flank pain.? Patient reports symptoms started the day prior, pain radiating to the right groin, sharp, shooting in characteristic, 7/10, relieved with pain medication received in the ED.? Patient also complaining of increased shortness of breath, lower extremity swelling, as well as orthopnea and PND that started about 3-4 days prior to admission. Renal function not improving will plan for cystoscopy right ureteral stent todya. CAT scan Pertinent findings: KIDNEYS AND URETERS: The kidneys are normal in size, shape, and attenuation. There is a prominent exophytic left midpole renal cyst with a thin rim of calcification. This is unchanged from previous. Mild left hydronephrosis with dilated renal pelvis. The ureter is decompressed. There is a nonobstructing left lower pole 0.8 cm calculus On the right there is mild hydronephrosis with dilatation of the renal pelvis. Physical Exam Vital Signs: Vital Signs: Last Vital Signs Temp 98.1 F 12/22/22 04:00 Pulse 93 12/22/22 04:00 Resp 20 12/22/22 04:00 BP 163/82 H 12/22/22 04:00 Pulse Ox 96 12/22/22 04:00 O2 Del Method 12/22/22 04:00 BMI result Body Mass Index 38.9 Const: General: no acute distress HEENT: Head: Yes normocephalic and Yes atraumatic Neck: Neck: Yes supple Resp: Effort & Inspection: normal respiratory effort Cardio: Rate: regular rate GI: Palpation (GI): Soft to palpation : General: Yes CVA tenderness on the right (mild) Back/Spine/Pelvis: Back: CVA tenderness Extrem: General: Yes normal to inspection Urology Results Labs 12/19/22 10:20 12/21/22 08:09 Labs: Laboratory Results - last 24 hr 12/21/22 12/21/22 12/21/22 08:00 08:09 11:08 Sodium 141 Potassium 3.9 Chloride 101 Carbon Dioxide 25 Anion Gap 19 BUN 44 H Creatinine 2.80 H Estim Creat Clear Calc 17.9 Estimated GFR 16 POC Glucose 164 H 153 H Random Glucose 172 H Calcium 8.9 12/21/22 12/21/22 17:03 21:52 Sodium Potassium Chloride Carbon Dioxide Anion Gap BUN Creatinine Estim Creat Clear Calc Estimated GFR POC Glucose 164 H 163 H Random Glucose Calcium Progress Note: A&P Assessment and plan (1) Kidney stone on left side: Status: Acute (2) Hydronephrosis: Status: Acute (3) ORION (acute kidney injury): Status: Acute Plan NPO patient added on to OR schedule cysto stent today, consent obtained with lang interpreter, pt's daughter Mara present Time Spent With Patient Time: Total time managing care of this patient today ____ minutes. Progress Note: Quality Stroke Does the patient have a stroke diagnosis?: No
[2022-12-22 08:02] LABS: Glucose, Whole Blood 152 mg/dL (60-115)
[2022-12-22] MEDS: Aspirin Enteric Coated 81 MG TABLET.DR PO (09:17)
[2022-12-22] MEDS: carvediloL 6.25 MG TABLET PO ×2 (09:18→20:07)
[2022-12-22] MEDS: Ferrous Sulfate 324 MG TABLET.DR PO (09:18)
[2022-12-22] MEDS: dilTIAZem HCL CD 180 MG CAP.ER.24H PO (09:18)
[2022-12-22] MEDS: Atorvastatin Calcium 80 MG TABLET PO (09:18)
[2022-12-22] MEDS: Losartan Potassium 50 MG TABLET 100 MG PO (09:18)
[2022-12-22] MEDS: Famotidine 20 MG TABLET PO ×2 (09:18→20:06)
[2022-12-22] MEDS: Docusate Sodium 100 MG CAPSULE PO ×2 (09:18→20:07)
[2022-12-22] MEDS: calcium polycarbophiL TABLET 1 TAB PO (09:18)
[2022-12-22] MEDS: traMADoL HCL 50 MG TABLET PO (09:23)
[2022-12-22] MEDS: LORazepam 0.5 MG TABLET PO ×2 (09:23→20:06)
[2022-12-22] MEDS: Albuterol Sulfate 90 MCG 8 GM INHALER 2 PUFF INHALE (09:24)
[2022-12-22] MEDS: Fluticasone Propionate Nasal 16 GM SPRAY 2 SPRAY NOSTRIL-B (09:24)
--- NOTE | 2022-12-22 10:32 | P.CDIC_ITS ---
CDI Concurrent Query Documentation Clarification: PHYSICIAN'S DOCUMENTATION REQUEST Date of Query: 12/22/22 1032 Patient Name: Roseanna Hurt Admit Date: 12/19/22 Dear Doctor, A review of the medical record indicates additional documentation may be needed. Please review below and update the documentation accordingly. Clinical Indicators: Risk Factors/Clinical Indicators/Treatments PN 12/21: History of AFib, continue carvedilol, diltiazem, does not appear to be on anticoagulation at this time per med rec, will add eliquis when renal function is better. Cardiology note - Afib adequately controlled, at this point continue cardizem. Intermittent tachycardia ECG shows Afib, HR 114. If possible, please provide further specificity regarding atrial fibrillation, such as: * Paroxysmal atrial fibrillation: terminates spontaneously or with intervention within 7 days of onset. * Persistent atrial fibrillation: episodes of continuous AF that last more than 7 days and do not self-terminate. * Long lasting persistent atrial fibrillation: episodes of continuous AF that last more than 12 months, * Chronic or Permanent atrial fibrillation: when a decision has been made to accept the presence of AF and there is no further attempt to restore or maintain sinus rhythm. * Other (please specify) * Unable to determine Use of terms such as suspected, likely, concern for, or probable (associated with a specific diagnosis that is being evaluated, monitored, or treated as if it exists) are acceptable and can be coded in the inpatient setting, when documented at the time of discharge. Thank you, Raina Sanchez [facility], [facility] Extension: [phone] Please use your independent medical judgment in providing your response. THIS QUERY IS PART OF THE PERMANENT MEDICAL RECORD Provider Response: Other Other Diagnosis: permanent afib
--- NOTE | 2022-12-22 10:46 | P.PNIM_ITS ---
Subjective Subjective Date of Service: 12/22/22 Interval History: Seen in f/u for ORION, acute heart failure, obstructive kidney stone has right flank pain today Physical Exam Vital Signs: Vital Signs: Last Vital Signs Temp 97.8 F 12/22/22 08:00 Pulse 83 12/22/22 08:00 Resp 20 12/22/22 08:00 BP 163/88 H 12/22/22 08:00 Pulse Ox 98 12/22/22 08:00 O2 Del Method 12/22/22 08:00 BMI result Body Mass Index 38.9 Const: Other: General: AO X 3, no acute distress Resp: decrease air movment CVS: S1,S2 iregular,1+ leg edma GI: +BS, NT, no distention Skin: No rash Neuro: motor grossly intact Psych: appropriate affect Objective Data Active Medications Acetaminophen (Acetaminophen 325 Mg Tablet) 650 mg PO Q6H PRN PRN Reason: Pain, Mild (Pain Scale 1-3) Last Admin: 12/20/22 01:43 Dose: 650 mg Documented By: GUERDA Albuterol Sulfate (Albuterol Sulfate (0.083%) 2.5 Mg/3 Ml Vial.Neb) 2.5 mg INHALE QID PRN PRN Reason: Wheezing Albuterol Sulfate (Albuterol Sulfate 90 Mcg 8 Gm Inhaler) 2 puff INHALE Q4H PRN PRN Reason: Wheezing Last Admin: 12/22/22 09:24 Dose: 2 puff Documented By: ERIC Aspirin (Aspirin Enteric Coated 81 Mg Tablet.) 81 mg PO DAILY [facility] Last Admin: 12/22/22 09:17 Dose: 81 mg Documented By: ERIC Atorvastatin Calcium (Atorvastatin Calcium 80 Mg Tablet) 80 mg PO DAILY [facility] Last Admin: 12/22/22 09:18 Dose: 80 mg Documented By: ERIC Calcium Polycarbophil (Calcium Polycarbophil Tablet) 1 tab PO DAILY [facility] Last Admin: 12/22/22 09:18 Dose: 1 tab Documented By: ERIC Carvedilol (Carvedilol 6.25 Mg Tablet) 6.25 mg PO BID [facility]; Protocol Last Admin: 12/22/22 09:18 Dose: 6.25 mg Documented By: ERIC Diltiazem HCl (Diltiazem Hcl Cd 180 Mg Cap.Er.24h) 180 mg PO DAILY [facility]; Protocol Last Admin: 12/22/22 09:18 Dose: 180 mg Documented By: ERIC Docusate Sodium (Docusate Sodium 100 Mg Capsule) 100 mg PO DAILY PRN PRN Reason: Constipation Last Admin: 12/20/22 04:38 Dose: 100 mg Documented By: TRELL Docusate Sodium (Docusate Sodium 100 Mg Capsule) 100 mg PO BID [facility] Last Admin: 12/22/22 09:18 Dose: 100 mg Documented By: ERIC Enoxaparin Sodium (Enoxaparin Sodium 30 Mg/0.3 Ml Syringe) 30 mg SUBCUT Q24H [facility] Last Admin: 12/21/22 22:03 Dose: 30 mg Documented By: CLARA Famotidine (Famotidine 20 Mg Tablet) 20 mg PO BID [facility] Last Admin: 12/22/22 09:18 Dose: 20 mg Documented By: ERIC Ferrous Sulfate (Ferrous Sulfate 324 Mg Tablet.Dr) 324 mg PO Q2D@0900 [facility] Last Admin: 12/22/22 09:18 Dose: 324 mg Documented By: ERIC Fluticasone Propionate (Fluticasone Propionate Nasal 16 Gm Victor) 2 spray NOSTRIL-B DAILY [facility] Last Admin: 12/22/22 09:24 Dose: 2 spray Documented By: ERIC Fluticasone/Vilanterol (Fluticasone/Vilanterol 100/25 Blst.W.Dev) 1 puff INHALE RDAILY [facility] Last Admin: 12/22/22 07:37 Dose: 1 puff Documented By: GEOVANNA Hydralazine HCl (Hydralazine Hcl 20 Mg/Ml Vial) 10 mg IVPUSH Q6H PRN; Protocol PRN Reason: for SBP > 180 Last Admin: 12/21/22 03:38 Dose: 10 mg Documented By: KATHLEEN Ceftriaxone Sodium 1 gm/ (Sodium Chloride) 50 mls @ 100 mls/hr IV Q24H [facility] Last Infusion: 12/21/22 22:39 Dose: 0 mls/hr Documented By: CLARA Insulin Human Lispro (Insulin Lispro 100 Unit/Ml 3 Ml Vial) 0 unit SUBCUT QIDACHS [facility]; Protocol Last Admin: 12/22/22 08:03 Dose: Not Given Documented By: ERIC Non-Admin Reason: NPO Lorazepam (Lorazepam 0.5 Mg Tablet) 0.5 mg PO Q8H PRN PRN Reason: Anxiety Last Admin: 12/22/22 09:23 Dose: 0.5 mg Documented By: ERIC Losartan Potassium (Losartan Potassium 50 Mg Tablet) 100 mg PO DAILY [facility]; Protocol Last Admin: 12/22/22 09:18 Dose: 100 mg Documented By: ERIC Magnesium Hydroxide (Milk Of Magnesia 30 Ml Oral.Susp) 30 ml PO BID PRN PRN Reason: Constipation Last Admin: 12/21/22 13:10 Dose: 30 ml Documented By: RIOSCHAMLET Nitroglycerin (Nitroglycerin 2 % Oint 1 Gm Packet) 1 inch TRANSDERMA RQ6H WHILE AWAKE PRN PRN Reason: sob Ondansetron HCl (Ondansetron Hcl 4 Mg/2 Ml Vial) 4 mg IVPUSH Q8H PRN PRN Reason: Nausea and Vomiting Pharmacy Consult (Consult Rx Perform Med Rec) 1 each MISCELLANE ONCE PRN PRN Reason: Consult order Polyethylene Glycol (Polyethylene Glycol 3350 17 Gm Powd.Pack) 17 gm PO DAILY [facility] Last Admin: 12/22/22 09:18 Dose: Not Given Documented By: ERIC Non-Admin Reason: NPO Polyethylene Glycol (Polyethylene Glycol 3350 17 Gm Powd.Pack) 17 gm PO DAILY PRN PRN Reason: Constipation Senna (Sennosides 8.6 Mg Tablet) 8.6 mg PO BID PRN PRN Reason: constipation Last Admin: 12/20/22 20:18 Dose: 8.6 mg Documented By: KATHLEEN Simethicone (Simethicone 80 Mg Tab.Chew) 120 mg PO QID PRN PRN Reason: Indigestion Sodium Chloride (0.9 % Sodium Chloride Flush 3 Ml Syringe) 3 ml IVFLUSH [facility] Last Admin: 12/22/22 09:18 Dose: 3 ml Documented By: ERIC Tramadol HCl (Tramadol Hcl 50 Mg Tablet) 50 mg PO TID PRN PRN Reason: Pain, Severe (Pain Scale 7-10) Last Admin: 12/22/22 09:23 Dose: 50 mg Documented By: ERIC Triamcinolone Acetonide (Triamcinolone Acet 0.1 % Cream 15 Gm Tube) 1 appl TOPICAL BID [facility]; Protocol Last Admin: 12/22/22 10:07 Dose: Not Given Documented By: ERIC Non-Admin Reason: Patient Refused Labs 12/19/22 10:20 12/21/22 08:09 Labs: Laboratory Results - last 24 hr 12/21/22 12/21/22 12/21/22 11:08 17:03 21:52 POC Glucose 153 H 164 H 163 H 12/22/22 07:32 POC Glucose 152 H Microbiology Microbiology Results: Microbiology 12/19/22 21:24 Blood Culture - Preliminary Blood - Venous No growth after 48 hours. 12/19/22 21:24 Blood Culture - Preliminary Blood - Venous No growth after 48 hours. 12/19/22 16:30 Urine Culture - Final Urine clean catch - Urine holliday top Assessment and Plan (1) Kidney stone on left side: Status: Acute (2) Hydronephrosis: Status: Acute (3) ORION (acute kidney injury): Status: Acute Plan 77-year-old female with past medical history of diabetes, history of CHF, AFib, asthma, hypertension, hyperlipidemia, history of alcohol abuse presents to the hospital with complaints of right flank pain found to have the following #Acute respiratory distress anxiety probably ? related to CHF, managment for CHF as below and and symptomatic treatment for anxiety, repeat cxr # acute unspecified CHF exacerbation manifested by elevated BNP, lower extremity edema, orthopnea and PND - takes 80 mg of Lasix at home -continue Lasix - echocardiogram today, cardiology consulte # hydronephrosis- d/t obstructive stone, since kidney function worsening, will need cysto #UTI--Ceftriaxone # ORION- ? obstructive uropathy For cystoscopy and internvition today #Anxiety--ativan PRN # diabetes - hold metformin d/t renl failure -SSI # Permanent AFib - continue carvedilol at increased dose, diltiazem, does not appear to be on anticoagulation at this time per med rec, will add eliquis when renal function is better and after uro procedue Of note patient stated to pharmacy that she takes Pradaxa 150 mg daily, I am unable to verify this information based on chart review, pharmacy unable to verify the medication, this time with placed on hold DVT prophylaxis:? Lovenox Need for inaptient: ORION, acute heart failure that need IV diuretics and monitoring of labs and possible additional work up Due to ongoing acute respiraotry distress, tachycardia, will transfer to [facility] Time Spent With Patient Time: Total time managing care of this patient today ____ minutes. Quality Stroke Does the patient have a stroke diagnosis?: No VTE Prior VTE?: No VTE Risk Level:: Medical - moderate - high VTE Device Contraindication: Treatment Not Indicated VTE Drug Contraindication: N/A - Med Ordered
--- NOTE | 2022-12-22 10:49 | MHC.CM.PN ---
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
[2022-12-22 12:07] LABS: Anion Gap 17 (12-20); Blood Urea Nitrogen 51 mg/dL (9-16); Calcium 8.6 mg/dL (8.4-10.2); Carbon Dioxide 27 mmol/L (22-29); Chloride 103 mmol/L (96-108); Creatinine Clr Calc Pharmacy 17.5; Estimated Glomerular Filt Rate 16; Glucose Random 150 mg/dL (60-115); Potassium 4.5 mmol/L (3.3-5.1); Sodium 142 mmol/L (135-145)
--- NOTE | 2022-12-22 12:10 | P.CONNP_ITS ---
History of Present Illness Reason for Consult Consult date: 12/22/22 Chief Complaint Chief complaint: Hydronephrosis, ORION, UTI History of Present Illness Narrative: 77 year old patient with normal baseline kidney function admitted with CHF decompensation and ORION. She initially presented with flank pain and found to have bilateral hydrone phrosis. Patient also found to be in congestive heart failure. CT scan of the abdomen showed bilateral hydronephrosis and patient has been seen by urology. There was a left kidney stone seen on the CT scan. At the time of consultation, she denies fever, chills, chest pain, nausea, vomiting or diarrhea. Review of Systems Review of Systems 10 pooints ROS negative except for pertinent in HPI PMFSH Past Medical History Medical History Alcohol abuse Arthritis Asthma Atrial fibrillation COPD (chronic obstructive pulmonary disease) Diabetes Gout Hypertension Hypertension Knee arthropathy Nephrolithiasis Osteoarthritis Thrombosed external hemorrhoid Surgical History Surgical History History of total knee arthroplasty Hx of colonoscopy Social History Social History Household Members: None Housing: Apartment Housing Other:: low income housing Do you presently have visiting nurse or other home services: No Unable to assess alcohol history related to: Unknown Alcohol intake: never Patient Tobacco Use Status: Never used Tobacco Smoked in Last 30 Days: No e-Cigarette/Vaping Use: Never Used Patient Interested in Nicotine Replacement: No Second Hand Smoke Exposure: No Use of substances other than those prescribed or required for medical reasons: No Currently Displaying Signs/Symptoms of Drug Intoxication Withdrawal: No Any prior treatment program specific to substance use: No Have you been hit, kicked, punched, or otherwise hurt by someone within the past year? If so, by whom?: No Do you feel safe in your current relationship?: No Current Relationship Is there a partner from a previous relationship who is making you feel unsafe now?: No Are you made to feel afraid or neglected: No Advance Directives: No Advance Directives Information Provided: Yes Do you have thoughts of harming others: None Do you have a plan to hurt others: No Plan Recently lost weight without trying: No Eating poorly because of decreased appetite: No Nutrition Risks: No Nutritional Risk Patient : No : No Poor oral hygiene: No service: No Current occupational status: unemployed Meds Allergies Allergy/AdvReac Type Severity Reaction Status Date / Time montelukast [Singulair] Allergy Unknown itching/marysol Verified 11/25/22 11:32 h From Singulair Allergy Intermediate RASH Uncoded 11/25/22 11:32 Active Medications: Current Medications Acetaminophen (Acetaminophen 325 Mg Tablet) 650 mg PO Q6H PRN PRN Reason: Pain, Mild (Pain Scale 1-3) Last Admin: 12/20/22 01:43 Dose: 650 mg Albuterol Sulfate (Albuterol Sulfate (0.083%) 2.5 Mg/3 Ml Vial.Neb) 2.5 mg INHALE QID PRN PRN Reason: Wheezing Albuterol Sulfate (Albuterol Sulfate 90 Mcg 8 Gm Inhaler) 2 puff INHALE Q4H PRN PRN Reason: Wheezing Last Admin: 12/22/22 09:24 Dose: 2 puff Aspirin (Aspirin Enteric Coated 81 Mg Tablet.Dr) 81 mg PO DAILY [facility] Last Admin: 12/22/22 09:17 Dose: 81 mg Atorvastatin Calcium (Atorvastatin Calcium 80 Mg Tablet) 80 mg PO DAILY [facility] Last Admin: 12/22/22 09:18 Dose: 80 mg Calcium Polycarbophil (Calcium Polycarbophil Tablet) 1 tab PO DAILY [facility] Last Admin: 12/22/22 09:18 Dose: 1 tab Carvedilol (Carvedilol 6.25 Mg Tablet) 6.25 mg PO BID [facility]; Protocol Last Admin: 12/22/22 09:18 Dose: 6.25 mg Diltiazem HCl (Diltiazem Hcl Cd 180 Mg Cap.Er.24h) 180 mg PO DAILY [facility]; Protocol Last Admin: 12/22/22 09:18 Dose: 180 mg Docusate Sodium (Docusate Sodium 100 Mg Capsule) 100 mg PO DAILY PRN PRN Reason: Constipation Last Admin: 12/20/22 04:38 Dose: 100 mg Docusate Sodium (Docusate Sodium 100 Mg Capsule) 100 mg PO BID [facility] Last Admin: 12/22/22 09:18 Dose: 100 mg Enoxaparin Sodium (Enoxaparin Sodium 30 Mg/0.3 Ml Syringe) 30 mg SUBCUT Q24H [facility] Last Admin: 12/21/22 22:03 Dose: 30 mg Famotidine (Famotidine 20 Mg Tablet) 20 mg PO BID [facility] Last Admin: 12/22/22 09:18 Dose: 20 mg Ferrous Sulfate (Ferrous Sulfate 324 Mg Tablet.Dr) 324 mg PO Q2D@0900 [facility] Last Admin: 12/22/22 09:18 Dose: 324 mg Fluticasone Propionate (Fluticasone Propionate Nasal 16 Gm [place]) 2 spray NOSTRIL-B DAILY [facility] Last Admin: 12/22/22 09:24 Dose: 2 spray Fluticasone/Vilanterol (Fluticasone/Vilanterol 100/25 Blst.W.Dev) 1 puff INHALE RDAILY [facility] Last Admin: 12/22/22 07:37 Dose: 1 puff Hydralazine HCl (Hydralazine Hcl 20 Mg/Ml Vial) 10 mg IVPUSH Q6H PRN; Protocol PRN Reason: for SBP > 180 Last Admin: 12/21/22 03:38 Dose: 10 mg Ceftriaxone Sodium 1 gm/ (Sodium Chloride) 50 mls @ 100 mls/hr IV Q24H [facility] Last Infusion: 12/21/22 22:39 Dose: Infused Insulin Human Lispro (Insulin Lispro 100 Unit/Ml 3 Ml Vial) 0 unit SUBCUT QIDACHS [facility]; Protocol Last Admin: 12/22/22 08:03 Dose: Not Given Lorazepam (Lorazepam 0.5 Mg Tablet) 0.5 mg PO Q8H PRN PRN Reason: Anxiety Last Admin: 12/22/22 09:23 Dose: 0.5 mg Losartan Potassium (Losartan Potassium 50 Mg Tablet) 100 mg PO DAILY [facility]; Protocol Last Admin: 12/22/22 09:18 Dose: 100 mg Magnesium Hydroxide (Milk Of Magnesia 30 Ml Oral.Susp) 30 ml PO BID PRN PRN Reason: Constipation Last Admin: 12/21/22 13:10 Dose: 30 ml Morphine Sulfate (Morphine Sulfate 2 Mg/Ml Cartridge) 2 mg IVPUSH Q6H PRN; Protocol PRN Reason: Pain, Severe (Pain Scale 7-10) Nitroglycerin (Nitroglycerin 2 % Oint 1 Gm Packet) 1 inch TRANSDERMA RQ6H WHILE AWAKE PRN PRN Reason: sob Ondansetron HCl (Ondansetron Hcl 4 Mg/2 Ml Vial) 4 mg IVPUSH Q8H PRN PRN Reason: Nausea and Vomiting Pharmacy Consult (Consult Rx Perform Med Rec) 1 each MISCELLANE ONCE PRN PRN Reason: Consult order Polyethylene Glycol (Polyethylene Glycol 3350 17 Gm Powd.Pack) 17 gm PO DAILY [facility] Last Admin: 12/22/22 09:18 Dose: Not Given Polyethylene Glycol (Polyethylene Glycol 3350 17 Gm Powd.Pack) 17 gm PO DAILY PRN PRN Reason: Constipation Senna (Sennosides 8.6 Mg Tablet) 8.6 mg PO BID PRN PRN Reason: constipation Last Admin: 12/20/22 20:18 Dose: 8.6 mg Simethicone (Simethicone 80 Mg Tab.Chew) 120 mg PO QID PRN PRN Reason: Indigestion Sodium Chloride (0.9 % Sodium Chloride Flush 3 Ml Syringe) 3 ml IVFLUSH QSHIFT [facility] Last Admin: 12/22/22 09:18 Dose: 3 ml Tramadol HCl (Tramadol Hcl 50 Mg Tablet) 50 mg PO TID PRN PRN Reason: Pain, Severe (Pain Scale 7-10) Last Admin: 12/22/22 09:23 Dose: 50 mg Triamcinolone Acetonide (Triamcinolone Acet 0.1 % Cream 15 Gm Tube) 1 appl TOPICAL BID [facility]; Protocol Last Admin: 12/22/22 10:07 Dose: Not Given Home Medications Medication Instructions Recorded Confirmed Last Taken Type albuterol sulfate 2.5 mg/3 mL 1 amp inhalation QID PRN Wheezing 09/06/22 12/19/22 12/19/22 History (0.083 %) solution for nebulization alendronate 70 mg tablet 1 tab PO REESE 09/06/22 12/19/22 12/14/22 History aspirin 81 mg tablet,delayed 1 tab PO DAILY 09/06/22 12/19/22 12/19/22 History release blood sugar diagnostic (OneTouch 09/06/22 10/23/22 Unknown History Verio test strips) blood-glucose meter (OneTouch 09/06/22 10/23/22 Unknown History Verio Flex Meter) diltiazem HCl 180 mg 1 cap PO DAILY 09/06/22 12/19/22 12/19/22 History capsule,extended release 24 hr (Cartia XT) ferrous sulfate 325 mg (65 mg 1 tab PO Q OTHER DAY 09/06/22 12/19/22 11/18/22 History iron) tablet (FeroSul) fluticasone 250 mcg-salmeterol 50 1 puff inhalation BID 09/06/22 12/19/22 12/19/22 History mcg/dose blistr powdr for inhalation (Advair Diskus) fluticasone propionate 50 2 spray intranasal DAILY 09/06/22 12/19/22 12/19/22 History mcg/actuation nasal spray,suspension furosemide 80 mg tablet 1 tab PO BIDWM 09/06/22 12/19/22 12/19/22 History lancets 33 gauge (OneTouch Delica 09/06/22 10/23/22 Unknown History Plus Lancet) methylcellulose (laxative) 500 mg 1 tab PO DAILY 09/06/22 12/19/22 12/19/22 History tablet (Fiber Laxative (methylcellulose)) sennosides 8.6 mg tablet (senna) 1 tab PO BID PRN constipation 09/06/22 12/19/22 Unknown History tramadol 50 mg tablet 1 tab PO TID PRN pain 09/06/22 12/19/22 Unknown History albuterol sulfate 90 mcg/actuation 2 puff inhalation Q4-6H PRN 10/23/22 12/19/22 Unknown History aerosol inhaler (Ventolin HFA) Wheezing atorvastatin 80 mg tablet 80 mg PO DAILY 10/23/22 12/19/22 12/19/22 History carvedilol 3.125 mg tablet 3.125 mg PO BID 10/23/22 12/19/22 12/19/22 History losartan 100 mg tablet 100 mg PO DAILY 10/23/22 12/19/22 12/19/22 History metformin 850 mg tablet 850 mg PO BIDWM 10/23/22 12/19/22 12/18/22 History triamcinolone acetonide 0.1 % 1 appl topical BID 12/19/22 12/19/22 Unknown History topical cream Physical Exam Vital Signs: Last Vital Signs Temp 98.8 F 12/22/22 11:51 Pulse 70 12/22/22 11:51 Resp 17 12/22/22 11:51 BP 173/71 H 12/22/22 11:51 Pulse Ox 97 12/22/22 11:51 O2 Del Method 12/22/22 08:00 BMI result Body Mass Index 38.9 Const General: no acute distress HEENT Head: Yes normocephalic and Yes atraumatic Neck Neck: Yes supple Resp Auscultation: diminished lung sounds Cardio Heart sounds: S1 normal heart sound present and S2 normal heart sound present GI Palpation (GI): Soft to palpation and nontender Extrem General: Yes normal to inspection Results Lab Results 12/19/22 10:20 12/22/22 11:07 Lab results: Chemistry 12/20/22 12/21/22 12/22/22 08:10 08:09 11:07 Sodium 141 141 142 Potassium 4.1 3.9 4.5 Carbon Dioxide 23 25 27 BUN 39 H 44 H 51 H Creatinine 2.31 H 2.80 H 2.86 H Calcium 9.2 8.9 8.6 Urinalysis 12/19/22 16:11 Urine Color Yellow Urine Appearance Clear Urine pH 7.0 Ur Specific [place] 1.015 Urine Protein Negative Urine Glucose (UA) Negative Urine Ketones Negative Urine Blood Trace H Urine Nitrite Negative Ur Leukocyte Esterase Large (3+) H Urine RBC 6-10 H Urine WBC 11-20 H Ur Squamous Epith Cells 6-10 Hyaline Casts 0-2 Assessment and Plan (1) ORION (acute kidney injury): Status: Acute (2) Hydronephrosis: Qualifiers: Hydronephrosis type: with ureteropelvic junction obstruction Qualified Code(s): Q62.11 - Congenital occlusion of ureteropelvic junction Status: Acute (3) CHF exacerbation: Status: Acute Plan ORION due to obstructive uropathy CT scan showed b/l hydronephrosis and nephrolithiasis (non obstructing) normal baseline kidney function CHF exacerbation unknown LV function REC Lola hold losartan continue negative fluid balance echocardiogram urology f/u cystoscopy follow kidney function and electrolytes Time Spent With Patient Time: Total time managing care of this patient today ____ minutes. Procedures Date of Service Date of Service: 12/22/22
--- NOTE | 2022-12-22 15:10 | PC.NURSE ---
Addendum entered by Shelly Skelton RN 12/22/22 19:05: report given to overnight RN. Addendum entered by Shelly Skelton RN 12/22/22 17:03: pt down for procedure at 1610 Original Note: report received from overnight RN. 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 Pt scheduled for procedure today, report called and pt and family updated on time and plan. BP running high today, notified x2 responding with monitor . Pt offering no complaints at this time, awaiting procedure. Family at bedside. Safety precautions in place, call cantu within reach, bed alarm on, encouraged to call for assistance.
[2022-12-22 17:19] LABS: Glucose, Whole Blood 147 mg/dL (60-115)
--- NOTE | 2022-12-22 17:59 | HO.ANESPROP2 ---
HPI - Anesthesia Eval Consult details Narrative: nephrolithiasis PMFSH Active Problems Active Problems: All Active Problems (Updated 12/21/22 @ 11:36 by Nomi Nichols MD) CHF exacerbation (Acute) Kidney stone on left side (Acute) Renal cyst, acquired, left (Acute) Hydronephrosis (Acute) Acute exacerbation of CHF (congestive heart failure) (Acute) ORION (acute kidney injury) (Acute) Obstruction, uropathy (Acute) Varicose veins of right lower extremity with inflammation (Acute) Contusion of left lower leg (Acute) Thrombosed external hemorrhoid (Acute) Cystocele with rectocele (Acute) Atrial fibrillation (Acute) Gout (Acute) Asthma (Acute) Alcohol abuse (Acute) Nephrolithiasis (Acute) Past Medical History Medical History Alcohol abuse Arthritis Asthma Atrial fibrillation COPD (chronic obstructive pulmonary disease) Diabetes Gout Hypertension Hypertension Knee arthropathy Nephrolithiasis Osteoarthritis Thrombosed external hemorrhoid Surgical History Surgical History History of total knee arthroplasty Hx of colonoscopy Social History Social History Household Members: None Housing: Apartment Housing Other:: low income housing Do you presently have visiting nurse or other home services: No Unable to assess alcohol history related to: Unknown Alcohol intake: never Patient Tobacco Use Status: Never used Tobacco Smoked in Last 30 Days: No e-Cigarette/Vaping Use: Never Used Patient Interested in Nicotine Replacement: No Second Hand Smoke Exposure: No Use of substances other than those prescribed or required for medical reasons: No Currently Displaying Signs/Symptoms of Drug Intoxication Withdrawal: No Any prior treatment program specific to substance use: No Have you been hit, kicked, punched, or otherwise hurt by someone within the past year? If so, by whom?: No Do you feel safe in your current relationship?: No Current Relationship Is there a partner from a previous relationship who is making you feel unsafe now?: No Are you made to feel afraid or neglected: No Are you DNR?: No Advance Directives: No Advance Directives Information Provided: Yes Do you have thoughts of harming others: None Do you have a plan to hurt others: No Plan Recently lost weight without trying: No Eating poorly because of decreased appetite: No Nutrition Risks: No Nutritional Risk Patient : No : No Poor oral hygiene: No service: No Current occupational status: unemployed Meds Allergies Allergy/AdvReac Type Severity Reaction Status Date / Time montelukast [Singulair] Allergy Unknown itching/marysol Verified 11/25/22 11:32 h From Singulair Allergy Intermediate RASH Uncoded 11/25/22 11:32 Active Medications: Current Medications Acetaminophen (Acetaminophen 325 Mg Tablet) 650 mg PO Q6H PRN PRN Reason: Pain, Mild (Pain Scale 1-3) Last Admin: 12/20/22 01:43 Dose: 650 mg Albuterol Sulfate (Albuterol Sulfate (0.083%) 2.5 Mg/3 Ml Vial.Neb) 2.5 mg INHALE QID PRN PRN Reason: Wheezing Albuterol Sulfate (Albuterol Sulfate 90 Mcg 8 Gm Inhaler) 2 puff INHALE Q4H PRN PRN Reason: Wheezing Last Admin: 12/22/22 09:24 Dose: 2 puff Aspirin (Aspirin Enteric Coated 81 Mg Tablet.Dr) 81 mg PO DAILY [facility] Last Admin: 12/22/22 09:17 Dose: 81 mg Atorvastatin Calcium (Atorvastatin Calcium 80 Mg Tablet) 80 mg PO DAILY [facility] Last Admin: 12/22/22 09:18 Dose: 80 mg Calcium Polycarbophil (Calcium Polycarbophil Tablet) 1 tab PO DAILY [facility] Last Admin: 12/22/22 09:18 Dose: 1 tab Carvedilol (Carvedilol 6.25 Mg Tablet) 6.25 mg PO BID [facility]; Protocol Last Admin: 12/22/22 09:18 Dose: 6.25 mg Diltiazem HCl (Diltiazem Hcl Cd 180 Mg Cap.Er.24h) 180 mg PO DAILY [facility]; Protocol Last Admin: 12/22/22 09:18 Dose: 180 mg Docusate Sodium (Docusate Sodium 100 Mg Capsule) 100 mg PO DAILY PRN PRN Reason: Constipation Last Admin: 12/20/22 04:38 Dose: 100 mg Docusate Sodium (Docusate Sodium 100 Mg Capsule) 100 mg PO BID [facility] Last Admin: 12/22/22 09:18 Dose: 100 mg Enoxaparin Sodium (Enoxaparin Sodium 30 Mg/0.3 Ml Syringe) 30 mg SUBCUT Q24H [facility] Last Admin: 12/21/22 22:03 Dose: 30 mg Famotidine (Famotidine 20 Mg Tablet) 20 mg PO BID [facility] Last Admin: 12/22/22 09:18 Dose: 20 mg Ferrous Sulfate (Ferrous Sulfate 324 Mg Tablet.Dr) 324 mg PO Q2D@0900 [facility] Last Admin: 12/22/22 09:18 Dose: 324 mg Fluticasone Propionate (Fluticasone Propionate Nasal 16 Gm Leota) 2 spray NOSTRIL-B DAILY [facility] Last Admin: 12/22/22 09:24 Dose: 2 spray Fluticasone/Vilanterol (Fluticasone/Vilanterol 100/25 Blst.W.Dev) 1 puff INHALE RDAILY [facility] Last Admin: 12/22/22 07:37 Dose: 1 puff Hydralazine HCl (Hydralazine Hcl 20 Mg/Ml Vial) 10 mg IVPUSH Q6H PRN; Protocol PRN Reason: for SBP > 180 Last Admin: 12/21/22 03:38 Dose: 10 mg Ceftriaxone Sodium 1 gm/ (Sodium Chloride) 50 mls @ 100 mls/hr IV Q24H [facility] Last Infusion: 12/21/22 22:39 Dose: Infused Insulin Human Lispro (Insulin Lispro 100 Unit/Ml 3 Ml Vial) 0 unit SUBCUT QIDACHS [facility]; Protocol Last Admin: 12/22/22 16:42 Dose: Not Given Lorazepam (Lorazepam 0.5 Mg Tablet) 0.5 mg PO Q8H PRN PRN Reason: Anxiety Last Admin: 12/22/22 09:23 Dose: 0.5 mg Losartan Potassium (Losartan Potassium 50 Mg Tablet) 100 mg PO DAILY [facility]; Protocol Last Admin: 12/22/22 09:18 Dose: 100 mg Magnesium Hydroxide (Milk Of Magnesia 30 Ml Oral.Susp) 30 ml PO BID PRN PRN Reason: Constipation Last Admin: 12/21/22 13:10 Dose: 30 ml Morphine Sulfate (Morphine Sulfate 2 Mg/Ml Cartridge) 2 mg IVPUSH Q6H PRN; Protocol PRN Reason: Pain, Severe (Pain Scale 7-10) Nitroglycerin (Nitroglycerin 2 % Oint 1 Gm Packet) 1 inch TRANSDERMA RQ6H WHILE AWAKE PRN PRN Reason: sob Ondansetron HCl (Ondansetron Hcl 4 Mg/2 Ml Vial) 4 mg IVPUSH Q8H PRN PRN Reason: Nausea and Vomiting Pharmacy Consult (Consult Rx Perform Med Rec) 1 each MISCELLANE ONCE PRN PRN Reason: Consult order Polyethylene Glycol (Polyethylene Glycol 3350 17 Gm Powd.Pack) 17 gm PO DAILY [facility] Last Admin: 12/22/22 09:18 Dose: Not Given Polyethylene Glycol (Polyethylene Glycol 3350 17 Gm Powd.Pack) 17 gm PO DAILY PRN PRN Reason: Constipation Senna (Sennosides 8.6 Mg Tablet) 8.6 mg PO BID PRN PRN Reason: constipation Last Admin: 12/20/22 20:18 Dose: 8.6 mg Simethicone (Simethicone 80 Mg Tab.Chew) 120 mg PO QID PRN PRN Reason: Indigestion Sodium Chloride (0.9 % Sodium Chloride Flush 3 Ml Syringe) 3 ml IVFLUSH QSHIFT [facility] Last Admin: 12/22/22 16:42 Dose: Not Given Tramadol HCl (Tramadol Hcl 50 Mg Tablet) 50 mg PO TID PRN PRN Reason: Pain, Severe (Pain Scale 7-10) Last Admin: 12/22/22 09:23 Dose: 50 mg Triamcinolone Acetonide (Triamcinolone Acet 0.1 % Cream 15 Gm Tube) 1 appl TOPICAL BID [facility]; Protocol Last Admin: 12/22/22 10:07 Dose: Not Given Home Medications Medication Instructions Recorded Confirmed Last Taken Type albuterol sulfate 2.5 mg/3 mL 1 amp inhalation QID PRN Wheezing 09/06/22 12/19/22 12/19/22 History (0.083 %) solution for nebulization alendronate 70 mg tablet 1 tab PO REESE 09/06/22 12/19/22 12/14/22 History aspirin 81 mg tablet,delayed 1 tab PO DAILY 09/06/22 12/19/22 12/19/22 History release blood sugar diagnostic (OneTouch 09/06/22 10/23/22 Unknown History Verio test strips) blood-glucose meter (OneTouch 09/06/22 10/23/22 Unknown History Verio Flex Meter) diltiazem HCl 180 mg 1 cap PO DAILY 09/06/22 12/19/22 12/19/22 History capsule,extended release 24 hr (Cartia XT) ferrous sulfate 325 mg (65 mg 1 tab PO Q OTHER DAY 09/06/22 12/19/22 11/18/22 History iron) tablet (FeroSul) fluticasone 250 mcg-salmeterol 50 1 puff inhalation BID 09/06/22 12/19/22 12/19/22 History mcg/dose blistr powdr for inhalation (Advair Diskus) fluticasone propionate 50 2 spray intranasal DAILY 09/06/22 12/19/22 12/19/22 History mcg/actuation nasal spray,suspension furosemide 80 mg tablet 1 tab PO BIDWM 09/06/22 12/19/22 12/19/22 History lancets 33 gauge (OneTouch Delica 09/06/22 10/23/22 Unknown History Plus Lancet) methylcellulose (laxative) 500 mg 1 tab PO DAILY 09/06/22 12/19/22 12/19/22 History tablet (Fiber Laxative (methylcellulose)) sennosides 8.6 mg tablet (senna) 1 tab PO BID PRN constipation 09/06/22 12/19/22 Unknown History tramadol 50 mg tablet 1 tab PO TID PRN pain 09/06/22 12/19/22 Unknown History albuterol sulfate 90 mcg/actuation 2 puff inhalation Q4-6H PRN 10/23/22 12/19/22 Unknown History aerosol inhaler (Ventolin HFA) Wheezing atorvastatin 80 mg tablet 80 mg PO DAILY 10/23/22 12/19/22 12/19/22 History carvedilol 3.125 mg tablet 3.125 mg PO BID 10/23/22 12/19/22 12/19/22 History losartan 100 mg tablet 100 mg PO DAILY 10/23/22 12/19/22 12/19/22 History metformin 850 mg tablet 850 mg PO BIDWM 10/23/22 12/19/22 12/18/22 History triamcinolone acetonide 0.1 % 1 appl topical BID 12/19/22 12/19/22 Unknown History topical cream Exam Exam Date and Time: December 22, 2022 339 Height,Weight and Vital Signs: Height 5 ft 2 in Weight 96.5 kg Last Vital Signs Temp 99.8 F 12/22/22 16:40 Pulse 73 12/22/22 16:40 Resp 20 12/22/22 16:40 BP 171/80 H 12/22/22 16:40 Pulse Ox 95 12/22/22 16:40 O2 Del Method 12/22/22 16:40 Pertinent Lab Results Pertinent Lab Results: Laboratory Tests 12/19/22 12/19/22 12/19/22 10:20 10:20 16:11 WBC 6.5 RBC 4.08 L Hgb 11.5 L Hct 35.6 L MCV 87.3 MCH 28.2 MCHC 32.3 RDW 12.5 Plt Count 246 D MPV 10.0 Absolute Nucleated RBC 0.000 Nucleated RBC % (auto) 0.0 Sodium 141 Potassium 4.2 Chloride 102 Carbon Dioxide 26 Anion Gap 17 BUN 42 H Creatinine 2.15 H Estim Creat Clear Calc 22.5 Estimated GFR 22 POC Glucose Random Glucose 170 H Lactic Acid Calcium 9.2 Magnesium 2.3 Total Bilirubin 0.6 Direct Bilirubin < 0.2 AST 20 ALT 16 Alkaline Phosphatase 102 B-Natriuretic Peptide Total Protein 6.7 Albumin 3.9 Lipase 16 Urine Color Yellow Urine Appearance Clear Urine pH 7.0 Ur Specific Sod 1.015 Urine Protein Negative Urine Glucose (UA) Negative Urine Ketones Negative Urine Blood Trace H Urine Nitrite Negative Ur Leukocyte Esterase Large (3+) H Urine RBC 6-10 H Urine WBC 11-20 H Ur Squamous Epith Cells 6-10 Urine Bacteria Trace Hyaline Casts 0-2 COVID-19 ([facility]) COVID-19 Clin Com 12/19/22 12/19/22 12/19/22 19:19 21:24 21:24 WBC RBC Hgb Hct MCV MCH MCHC RDW Plt Count MPV Absolute Nucleated RBC Nucleated RBC % (auto) Sodium Potassium Chloride Carbon Dioxide Anion Gap BUN Creatinine Estim Creat Clear Calc Estimated GFR POC Glucose Random Glucose Lactic Acid 1.2 Calcium Magnesium Total Bilirubin Direct Bilirubin AST ALT Alkaline Phosphatase B-Natriuretic Peptide 328 H Total Protein Albumin Lipase Urine Color Urine Appearance Urine pH Ur Specific Sod Urine Protein Urine Glucose (UA) Urine Ketones Urine Blood Urine Nitrite Ur Leukocyte Esterase Urine RBC Urine WBC Ur Squamous Epith Cells Urine Bacteria Hyaline Casts COVID-19 ([facility]) Negative COVID-19 Clin Com See Note 12/20/22 12/20/22 12/20/22 07:24 08:10 11:53 WBC RBC Hgb Hct MCV MCH MCHC RDW Plt Count MPV Absolute Nucleated RBC Nucleated RBC % (auto) Sodium 141 Potassium 4.1 Chloride 102 Carbon Dioxide 23 Anion Gap 20 BUN 39 H Creatinine 2.31 H Estim Creat Clear Calc 21.7 Estimated GFR 20 POC Glucose 166 H 192 H Random Glucose 178 H Lactic Acid Calcium 9.2 Magnesium Total Bilirubin Direct Bilirubin AST ALT Alkaline Phosphatase B-Natriuretic Peptide Total Protein Albumin Lipase Urine Color Urine Appearance Urine pH Ur Specific Sod Urine Protein Urine Glucose (UA) Urine Ketones Urine Blood Urine Nitrite Ur Leukocyte Esterase Urine RBC Urine WBC Ur Squamous Epith Cells Urine Bacteria Hyaline Casts COVID-19 ([facility]) COVID-19 [employer] Com 12/20/22 12/21/22 12/21/22 20:15 08:00 08:09 WBC RBC Hgb Hct MCV MCH MCHC RDW Plt Count MPV Absolute Nucleated RBC Nucleated RBC % (auto) Sodium 141 Potassium 3.9 Chloride 101 Carbon Dioxide 25 Anion Gap 19 BUN 44 H Creatinine 2.80 H Estim Creat Clear Calc 17.9 Estimated GFR 16 POC Glucose 141 H 164 H Random Glucose 172 H Lactic Acid Calcium 8.9 Magnesium Total Bilirubin Direct Bilirubin AST ALT Alkaline Phosphatase B-Natriuretic Peptide Total Protein Albumin Lipase Urine Color Urine Appearance Urine pH Ur Specific Sod Urine Protein Urine Glucose (UA) Urine Ketones Urine Blood Urine Nitrite Ur Leukocyte Esterase Urine RBC Urine WBC Ur Squamous Epith Cells Urine Bacteria Hyaline Casts COVID-19 ([facility]) COVID-19 [employer] 12/21/22 12/21/22 12/21/22 11:08 17:03 21:52 WBC RBC Hgb Hct MCV MCH MCHC RDW Plt Count MPV Absolute Nucleated RBC Nucleated RBC % (auto) Sodium Potassium Chloride Carbon Dioxide Anion Gap BUN Creatinine Estim Creat Clear Calc Estimated GFR POC Glucose 153 H 164 H 163 H Random Glucose Lactic Acid Calcium Magnesium Total Bilirubin Direct Bilirubin AST ALT Alkaline Phosphatase B-Natriuretic Peptide Total Protein Albumin Lipase Urine Color Urine Appearance Urine pH Ur Specific Sod Urine Protein Urine Glucose (UA) Urine Ketones Urine Blood Urine Nitrite Ur Leukocyte Esterase Urine RBC Urine WBC Ur Squamous Epith Cells Urine Bacteria Hyaline Casts COVID-19 ([facility]) COVID-19 Them[employer]id Com 12/22/22 12/22/22 12/22/22 07:32 11:07 17:13 WBC RBC Hgb Hct MCV MCH MCHC RDW Plt Count MPV Absolute Nucleated RBC Nucleated RBC % (auto) Sodium 142 Potassium 4.5 Chloride 103 Carbon Dioxide 27 Anion Gap 17 BUN 51 H Creatinine 2.86 H Estim Creat Clear Calc 17.5 Estimated GFR 16 POC Glucose 152 H 147 H Random Glucose 150 H Lactic Acid Calcium 8.6 Magnesium Total Bilirubin Direct Bilirubin AST ALT Alkaline Phosphatase B-Natriuretic Peptide Total Protein Albumin Lipase Urine Color Urine Appearance Urine pH Ur Specific Sod Urine Protein Urine Glucose (UA) Urine Ketones Urine Blood Urine Nitrite Ur Leukocyte Esterase Urine RBC Urine WBC Ur Squamous Epith Cells Urine Bacteria Hyaline Casts COVID-19 ([facility]) COVID-19 Clin Com Airway Mallampati Class: II TM Dist: >3cm Loose/Missing/Broken Teeth: No Heart: RRR Lungs: CTA Assessment and Plan Final Anesthetic Review ASA Class: III Final Preanesthetic Review: No Changes in Pt Med Stat, Meds/Allgs Chart Reviewed and Consent Obtained/Reviewed Patient Risk: High Procedure Risk: Low Anesthetic Plan Anesthetic Plan: GA and MAC: Disposition: Standard PACU
--- NOTE | 2022-12-22 18:11 | MHC.SHP ---
Pre-Procedural Eval Section A Date of Service: 12/22/22 The patient is an INPATIENT: Yes Changes since office visit: No Cold of Flu in the past 2 weeks, No New Medical Problems, No Changes in Medication and No Patient answered all questions The History & Physical has been completed within 30 days and I have reviewed it.: Yes Section B Chief Complaint: Hydronephrosis, ORION, UTI Details of Present Illness: rising creatinine Allergies: Allergies Allergy/AdvReac Type Severity Reaction Status Date / Time montelukast [Singulair] Allergy Unknown itching/marysol Verified 11/25/22 11:32 h From Singulair Allergy Intermediate RASH Uncoded 11/25/22 11:32 Plan Diagnosis/Plan: Unchanged ( cystoscopy, bilateral retrograde, bilateral stents) I have reviewed the history and physical and performed a pertinent physical examination on my patient. No changes have occurred unless specified. Time Spent With Patient Time: Total time managing care of this patient today ____ minutes.
--- NOTE | 2022-12-22 18:58 | W.PM.OPN ---
Operative Note Operative Note Date of Service: 12/22/22 Narrative: PreOperative Diagnosis: bilateral hydronephrosis Post Operative Diagnosis: bilateral hydronephrosis Procedure: bilateral retrograde, bilateral stent placement, ureteroscopy with foreign body removal Surgeon: Dr Lior Tellez Anesthesia: sedation Indications for procedure: rising creatinine with bilateral hydronephrosis Procedure: After informed consent was verified the patient was brought to the operating room and placed in a supine position. Anesthesia was administered per protocol. The patient was placed in modified dorsal lithotomy position and prepped and draped in a sterile fashion. A safety pause time-out was performed. Laterality of procedure and antibiotics were confirmed, appropriate imaging was available A 22 Brazilian cystoscope was introduced per urethra. No abnormality was noted of urethra or bladder. Both ureteric orifices were seen in a normal position. The left ureter was cannulated with an open ended catheter and a retrograde examination was performed. tight UPJ with ureter could redundancy and hydronephrosis. . A Sensor guidewire was placed under fluoroscopy and a good coil was seen within the renal pelvis. A Six Brazilian by 22 cm double J stent was advanced over the wire and up to the level of the renal pelvis under fluoroscopic and direct visualization. The stent was seen with appropriate coil within the renal pelvis and in the bladder after deployment. The right ureter was cannulated with an open ended catheter and a retrograde examination was performed. tight UPJ with ureter redundancy and hydronephrosis. . A Sensor guidewire was placed under fluoroscopy and a good coil was seen within the renal pelvis. A Six Brazilian by 22 cm double J stent was advanced over the wire and up to the level of the renal pelvis under fluoroscopic and direct visualization. during the deployment this stent went retrograde up into the kidney and exited the bladder. This was secondary to the redundant ureter and large amount of hydronephrosis. A short rigid ureteral scope was obtained. This was placed into the ureter. Using a flat wire basket the distal aspect of the stent was grasped and removed into the bladder. This was brought out into the urethra. The Sensor guidewire was placed. The stent was removed. A variable length stent was then placed which was able to coil easily in both the bladder and the redundant renal pelvis. Sixteen Brazilian Johnson catheter was placed. This will be hooked to a 2500 cc urine bag. This will remain untill creatinine has started to resolve. The patient tolerated the procedure well and was transferred in a stable condition to the recovery area. Pathology: none Drains: bilateral drains
[2022-12-22 19:59] LABS: Glucose, Whole Blood 122 mg/dL (60-115)
[2022-12-22] MEDS: Acetaminophen 325 MG TABLET 650 MG PO (20:06)
[2022-12-22] MEDS: cefTRIAXone sodium 1 GM in 0.9 % Sodium Chloride 50 ML IV (20:09)
[2022-12-23] VITALS (8 sets, daily range): BP systolic 130–175; BP diastolic 62–84; PULSE 53–87; RESP 14–18; TEMP 36.1–36.6; O2SAT 2–99
[2022-12-23 07:33] LABS: Glucose, Whole Blood 160 mg/dL (60-115)
[2022-12-23] MEDS: Losartan Potassium 50 MG TABLET 100 MG PO (07:44)
[2022-12-23] MEDS: Atorvastatin Calcium 80 MG TABLET PO (07:44)
[2022-12-23] MEDS: calcium polycarbophiL TABLET 1 TAB PO (07:45)
[2022-12-23] MEDS: Docusate Sodium 100 MG CAPSULE PO ×2 (07:45→20:53)
[2022-12-23] MEDS: polyethylene glycoL 3350 17 GM POWD.PACK PO (07:45)
[2022-12-23] MEDS: dilTIAZem HCL CD 180 MG CAP.ER.24H PO (07:45)
[2022-12-23] MEDS: Famotidine 20 MG TABLET PO ×2 (07:45→20:53)
[2022-12-23] MEDS: Aspirin Enteric Coated 81 MG TABLET.DR PO (07:45)
[2022-12-23] MEDS: Fluticasone Propionate Nasal 16 GM SPRAY 2 SPRAY NOSTRIL-B (07:46)
[2022-12-23] MEDS: Insulin Lispro 100 UNIT/ML 3 ML VIAL SUBCUT ×2 (07:46→12:20)
[2022-12-23] MEDS: 0.9 % Sodium Chloride Flush 3 ML SYRINGE IVFLUSH ×2 (07:46→17:19)
--- NOTE | 2022-12-23 08:08 | PM.PNNEP ---
Subjective Subjective Date of Service: 12/23/22 Interval history: seen and examined events reviewed feels better son in law at bedside Physical Exam Vital Signs: Vital Signs: Last Vital Signs Temp 97.5 F 12/23/22 07:00 Pulse 74 12/23/22 07:00 Resp 14 12/23/22 07:00 BP 175/79 H 12/23/22 07:00 Pulse Ox 98 12/23/22 07:00 O2 Del Method 12/23/22 07:00 O2 Flow Rate 2 12/23/22 07:00 BMI result Body Mass Index 38.9 Const: General: no acute distress HEENT: Head: Yes normocephalic and Yes atraumatic Neck: Neck: Yes supple Resp: Auscultation: diminished lung sounds Cardio: Heart sounds: S1 normal heart sound present and S2 normal heart sound present GI: Palpation (GI): Soft to palpation and nontender Extrem: General: Yes normal to inspection Objective Data Labs 12/19/22 10:20 12/22/22 11:07 Labs: Laboratory Results - last 24 hr 12/22/22 12/22/22 12/22/22 11:07 17:13 19:55 Sodium 142 Potassium 4.5 Chloride 103 Carbon Dioxide 27 Anion Gap 17 BUN 51 H Creatinine 2.86 H Estim Creat Clear Calc 17.5 Estimated GFR 16 POC Glucose 147 H 122 H Random Glucose 150 H Calcium 8.6 12/23/22 07:29 Sodium Potassium Chloride Carbon Dioxide Anion Gap BUN Creatinine Estim Creat Clear Calc Estimated GFR POC Glucose 160 H Random Glucose Calcium Microbiology Microbiology Results: Microbiology 12/19/22 21:24 Blood - Venous Blood Culture - Preliminary No growth after 48 hours. 12/19/22 21:24 Blood - Venous Blood Culture - Preliminary No growth after 48 hours. 12/19/22 16:30 Urine clean catch - Urine holliday top Urine Culture - Final Procedures Date of Service Date of Service: 12/23/22 Assessment & Plan Assessment and plan (1) ORION (acute kidney injury): Status: Acute (2) Hydronephrosis: Status: Acute (3) CHF exacerbation: Status: Acute Plan ORION due to obstructive uropathy s/p b/l ureteral stents placement CT scan showed b/l hydronephrosis and nephrolithiasis (non obstructing) normal baseline kidney function CHF exacerbation unknown LV function REC hold losartan urology f/u follow kidney function and electrolytes Time Spent With Patient Time: Total time managing care of this patient today ____ minutes. Progress Note: Quality Stroke Does the patient have a stroke diagnosis?: No
[2022-12-23 08:43] LABS: Anion Gap 14 (12-20); Calcium 8.7 mg/dL (8.4-10.2); Carbon Dioxide 26 mmol/L (22-29); Chloride 106 mmol/L (96-108); Glucose Random 166 mg/dL (60-115); Potassium 4.3 mmol/L (3.3-5.1); Sodium 142 mmol/L (135-145)
[2022-12-23 08:54] LABS: Blood Urea Nitrogen 32 mg/dL (9-16); Creatinine Clr Calc Pharmacy 39.9; Estimated Glomerular Filt Rate 41
[2022-12-23] MEDS: Fluticasone/Vilanterol 100/25 BLST.W.DEV 1 PUFF INHALE (09:17)
[2022-12-23] MEDS: carvediloL 6.25 MG TABLET PO ×2 (09:49→20:55)
[2022-12-23] MEDS: Morphine Sulfate 2 MG/ML CARTRIDGE IVPUSH (09:54)
[2022-12-23] MEDS: Acetaminophen 325 MG TABLET 650 MG PO (09:55)
[2022-12-23 11:40] LABS: Glucose, Whole Blood 157 mg/dL (60-115)
--- NOTE | 2022-12-23 12:54 | PM.UROPN ---
Subjective Subjective Date of Service: 12/23/22 Interval history: Underwent bilateral retrograde with bilateral stents yesterday Has redundant ureters with deviation Stents placed both sides Creatinine has dropped from 2.8 down to 1.2 in a 24 hour. Johnson catheter could be removed today Physical Exam Vital Signs: Vital Signs: Last Vital Signs Temp 97.6 F 12/23/22 11:00 Pulse 53 12/23/22 11:00 Resp 14 12/23/22 11:00 BP 132/62 12/23/22 11:00 Pulse Ox 97 12/23/22 11:00 O2 Del Method 12/23/22 11:00 O2 Flow Rate 2 12/23/22 11:00 BMI result Body Mass Index 38.9 Const: General: cooperative, healthy appearing, comfortable and no acute distress Orientation/consciousness: patient oriented x3 HEENT: Face and sinus: Yes normal facial exam Mouth: moist mucous membranes Neck: Neck: Yes normal visual inspection, Yes full ROM and Yes trachea midline Chest: Chest palpation & inspection: normal inspection of the chest Resp: Effort & Inspection: normal respiratory effort, able to speak in complete sentences and no respiratory distress GI: Inspection: Yes normal to inspection Back/Spine/Pelvis: Cervical Spine: normal cervical lordosis Thoracic/Lumbar Spine: thoracic and lumbar spine normal to inspection Skin: General skin exam: no rashes or lesions noted Neuro: General: patient oriented x3, tone normal and moves all extremities Extrem: General: Yes normal to inspection and Yes capillary refill normal Urology Results Labs 12/19/22 10:20 12/23/22 07:48 Labs: Laboratory Results - last 24 hr 12/22/22 12/22/22 12/23/22 17:13 19:55 07:29 Sodium Potassium Chloride Carbon Dioxide Anion Gap BUN Creatinine Estim Creat Clear Calc Estimated GFR POC Glucose 147 H 122 H 160 H Random Glucose Calcium 12/23/22 12/23/22 07:48 11:28 Sodium 142 Potassium 4.3 Chloride 106 Carbon Dioxide 26 Anion Gap 14 BUN 32 H Creatinine 1.26 Estim Creat Clear Calc 39.9 Estimated GFR 41 POC Glucose 157 H Random Glucose 166 H Calcium 8.7 Progress Note: A&P Assessment and plan (1) Hydronephrosis: Status: Acute (2) ORION (acute kidney injury): Status: Acute Plan DC Johnson catheter Time Spent With Patient Time: Total time managing care of this patient today ____ minutes. Progress Note: Quality Stroke Does the patient have a stroke diagnosis?: No
--- NOTE | 2022-12-23 13:45 | HO.POSTANES ---
Post Anesthesia Evaluation Post Anesthesia Evaluation Vital Signs: Vital Signs Temp Pulse Resp BP Pulse Ox O2 Del Method O2 Flow Rate 12/23/22 11:00 97.6 F 53 14 132/62 97 Nasal Cannula 2 12/23/22 09:19 87 16 12/23/22 07:00 97.5 F 74 14 175/79 H 98 Nasal Cannula 2 12/23/22 03:18 97.5 F 63 18 152/75 H 2 L Nasal Cannula Anesthesia: General Mental Status: Awake Pain Control: Satisfactory Nausea/Vomiting: None Hydration: Adequate Anesthesia-Related Issues: No Anes. Related Issues
--- NOTE | 2022-12-23 14:08 | MHC.CM.PN ---
[facility] is checking to see if they are in contract with Patient's [facility], should new [facility] be ordered at time of dc. CM will follow.
[2022-12-23] MEDS: Albuterol Sulfate 90 MCG 8 GM INHALER 2 PUFF INHALE ×2 (17:19→20:39)
[2022-12-23 17:44] LABS: Glucose, Whole Blood 149 mg/dL (60-115)
--- NOTE | 2022-12-23 18:26 | PC.NURSE ---
pt alert and oriented x3 but thai speaking only. Vance cath intact and draining punch colored urine. notified. Orders to remove vance cath.removed at 1400. Pt voided less 50cc immediately after vance cath removal and nothing since.
[2022-12-23] MEDS: cefTRIAXone sodium 1 GM in 0.9 % Sodium Chloride 50 ML IV (20:51)
[2022-12-23] MEDS: Enoxaparin Sodium 30 MG/0.3 ML SYRINGE SUBCUT (20:53)
[2022-12-24] MEDS: 0.9 % Sodium Chloride Flush 3 ML SYRINGE IVFLUSH ×2 (00:25→08:39)
[2022-12-24 03:49] VITALS: BP 154/78; PULSE 101; RESP 15; TEMP 37.1; O2SAT 98
[2022-12-24] MEDS: Acetaminophen 325 MG TABLET 650 MG PO (05:25)
[2022-12-24] MEDS: LORazepam 0.5 MG TABLET PO (05:25)
[2022-12-24 07:20] VITALS: BP 170/78; PULSE 81; RESP 16; TEMP 36.5; O2SAT 96
[2022-12-24] MEDS: Fluticasone/Vilanterol 100/25 BLST.W.DEV 1 PUFF INHALE (08:08)
[2022-12-24 08:11] VITALS: PULSE 78; RESP 18; O2SAT 93
[2022-12-24] MEDS: Albuterol Sulfate 90 MCG 8 GM INHALER 2 PUFF INHALE (08:20)
[2022-12-24] MEDS: Insulin Lispro 100 UNIT/ML 3 ML VIAL SUBCUT ×2 (08:39→12:17)
[2022-12-24 08:42] LABS: Glucose, Whole Blood 179 mg/dL (60-115)
[2022-12-24] MEDS: polyethylene glycoL 3350 17 GM POWD.PACK PO (09:09)
[2022-12-24] MEDS: carvediloL 6.25 MG TABLET PO (09:10)
[2022-12-24] MEDS: Ferrous Sulfate 324 MG TABLET.DR PO (09:10)
[2022-12-24] MEDS: calcium polycarbophiL TABLET 1 TAB PO (09:10)
[2022-12-24] MEDS: Aspirin Enteric Coated 81 MG TABLET.DR PO (09:10)
[2022-12-24] MEDS: dilTIAZem HCL CD 180 MG CAP.ER.24H PO (09:10)
[2022-12-24] MEDS: Docusate Sodium 100 MG CAPSULE PO (09:10)
[2022-12-24] MEDS: predniSONE 20 MG TABLET 40 MG PO (09:10)
[2022-12-24] MEDS: Losartan Potassium 50 MG TABLET 100 MG PO (09:11)
[2022-12-24] MEDS: Atorvastatin Calcium 80 MG TABLET PO (09:11)
[2022-12-24] MEDS: Famotidine 20 MG TABLET PO (09:11)
[2022-12-24] MEDS: Fluticasone Propionate Nasal 16 GM SPRAY 2 SPRAY NOSTRIL-B (09:19)
--- NOTE | 2022-12-24 09:42 | P.DS_ITS ---
DS: Providers Provider Date of Service: 12/24/22 Date of admission: 12/19/22 20:28 Primary care physician: SANA Crespo Consults: 12/19/22 20:27 Consult to Urology Routine Consulting Provider: Jacquie Mcgraw Reason for consultation: hydronephrosis Has provider been notified: No 12/20/22 19:28 Consult to Cardiology Routine Consulting Provider: Nomi Nichols Reason for consultation: heart failure Has provider been notified: Yes 12/21/22 07:49 Consult to Nephrology Routine Consulting Provider: Ever Pedraza Reason for consultation: Orion Has provider been notified: No DS: Diagnosis Discharge Diagnosis (1) ORION (acute kidney injury): Status: Acute (2) Hydronephrosis: Status: Acute (3) CHF exacerbation: Status: Acute DS: Summary Hospital Course Hospital Course: Chief Complaint: Flank pain [place]-speaking only, history is obtained with the help of an diplomatic interpreter/translator.? This is a 77-year-old female with past medical history of asthma, AFib, COPD, diabetes, HTN, HLD, presents the hospital with complaints of right flank pain.? Patient reports symptoms started the day prior, pain radiating to the right groin, sharp, shooting in characteristic, 7/10, relieved with pain medication received in the ED.? Patient also complaining of increased shortness of breath, lower extremity swelling, as well as orthopnea and PND that started about 3-4 days ago.? She reports urinary frequency with no dysuria or urgency. All other review of system negative On arrival to the ED patient found to have temp of 97.9 degrees, heart rate of 68, respiratory rate of 18, satting 96% on room air Labs are significant for WBC count of 6.5, hemoglobin of 11.5, hematocrit 35.6, creatinine of 2.15 with a baseline of 0.86, BNP of 328, urine positive for large leukocyte Estrace, WBC, and bacteria Abdomen pelvic CT shows mild bilateral hydronephrosis with dilated renal pelvis sees, this could be UPJ obstruction, nonobstructing left lower pole renal calculus. Hospital course: #Acute respiratory distress anxiety probably ? related to CHF, managment for CHF as below and? and symptomatic treatment for anxiety, repeat cxr # acute unspecified CHF exacerbation manifested by elevated BNP, lower extremity edema, orthopnea and PND--Treated with IV Lasix today and improved in symptoms, leg edema resolved. Will transition back to home dose of Lasix. Echo to assess heart function. Was seen by cardiology adnd advised increase Coreg to 6.5 bid. # hydronephrosis-? d/t obstructive stone. S/p cystoscopy on . by Dr. Liriano: bilateral retrograde, bilateral stent placement,? ureteroscopy with foreign body removal with resolution of renal failure #UTI--treated with ceftriaxone x 5 days, negative culture no further need for Abx # ORION-d/t obstructive uropathy, s/p cystoscopy stent placement as above. Creatine went from 2.86 to now 1.26, was followed by Nephro and recommended holing Losartan but will restart at discharge. For cystoscopy and internvition today #Anxiety--ativan PRN # diabetes---resume metformin. # Permanent? AFib - continue carvedilol at increased dose, diltiazem, does not appear to be on anticoagulation at this time per med rec, will add eliquis when renal function is better and after uro procedue #morbid obesity--weight loss advised by wathing diet and exercise #asthma exacerbation, Prednisone, inhalers Dispo home Time Spent with Patient Time attestation: Total time managing care of this patient today ____ minutes. Discharge coordination time: Greater than 30 minutes Quality: Safe Use of Opioids Does Pt have an Active Cancer Diagnosis on the Problem List?: No Quality: Stroke Does the patient have a stroke diagnosis?: No Physical Exam Vital Signs: Vital Signs: Last Vital Signs Temp 97.5 F 12/23/22 07:00 Pulse 87 12/23/22 09:19 Resp 16 12/23/22 09:19 BP 175/79 H 12/23/22 07:00 Pulse Ox 98 12/23/22 07:00 O2 Del Method 12/23/22 07:00 O2 Flow Rate 2 12/23/22 07:00 BMI result Body Mass Index 38.9 DS: Data Data Completed and Pending Labs on day of discharge: Laboratory Results - last 24 hr 12/22/22 12/22/22 12/22/22 11:07 17:13 19:55 Sodium 142 Potassium 4.5 Chloride 103 Carbon Dioxide 27 Anion Gap 17 BUN 51 H Creatinine 2.86 H Estim Creat Clear Calc 17.5 Estimated GFR 16 POC Glucose 147 H 122 H Random Glucose 150 H Calcium 8.6 12/23/22 12/23/22 07:29 07:48 Sodium 142 Potassium 4.3 Chloride 106 Carbon Dioxide 26 Anion Gap 14 BUN 32 H Creatinine 1.26 Estim Creat Clear Calc 39.9 Estimated GFR 41 POC Glucose 160 H Random Glucose 166 H Calcium 8.7 Preliminary micro results at discharge 12/19/22 21:24 Blood Culture - Preliminary Blood - Venous No growth after 48 hours. 12/19/22 21:24 Blood Culture - Preliminary Blood - Venous No growth after 48 hours. Discharge Plan Discharge Anticipated Discharge Date/Time: 12/24/22 11:27 Patient Disposition: Home Health Service Discharge Diagnosis: CHF, kidney failure Referrals: [facility] [Outside] - 1 Week Carolyn Ceballos FNP [Primary Care Provider] - 1 Week Discharge Medications: New prednisone 20 mg tablet 20 mg PO DAILY Qty: 4 0RF Continued simethicone [Gas Relief Extra Strength] 125 mg capsule 125 mg PO TID-QID PRN (Reason: Indigestion) Qty: 120 3RF fluticasone propion-salmeterol [Advair Diskus] 250-50 mcg/dose blister with device 1 puff INHALATION BID sennosides [senna] 8.6 mg tablet 1 tab PO BID PRN (Reason: constipation) albuterol sulfate 2.5 mg /3 mL (0.083 %) solution for nebulization 1 amp inhalation QID PRN (Reason: Wheezing) (DME) blood-glucose meter [TopprTouch Verio Flex meter] Mis MISCELLANEOUS DIRECTED diltiazem HCl [Cartia XT] 180 mg capsule,extended release 24hr 1 cap PO DAILY alendronate 70 mg tablet 1 tab PO REESE (DME) [employer] Verio test strips Strip MISCELLANEOUS BID aspirin 81 mg tablet,delayed release (DR/EC) 1 tab PO DAILY tramadol 50 mg tablet 1 tab PO TID PRN (Reason: pain) furosemide 80 mg tablet 1 tab PO BIDWM ferrous sulfate [FeroSul] 325 mg (65 mg iron) tablet 1 tab PO Q OTHER DAY Fiber Laxative (methylcellulo) 500 mg tablet 1 tab PO DAILY fluticasone propionate 50 mcg/actuation spray,suspension 2 spray intranasal DAILY (DME) lancets [OneTouch Delica Plus Lancet] 33 gauge misc MISCELLANEOUS BID triamcinolone acetonide 0.1 % cream 1 appl topical BID polyethylene glycol 3350 [Miralax] 17 gram/dose powder 17 g PO DAILY Qty: 510 3RF famotidine 20 mg tablet 20 mg PO BID Qty: 180 2RF docusate sodium 100 mg capsule 100 mg PO BID Qty: 180 3RF losartan 100 mg tablet 100 mg PO DAILY carvedilol 3.125 mg tablet 3.125 mg PO BID metformin 850 mg tablet 850 mg PO BIDWM atorvastatin 80 mg tablet 80 mg PO DAILY albuterol sulfate [Ventolin HFA] 90 mcg/actuation HFA aerosol inhaler 2 puff inhalation Q4-6H PRN (Reason: Wheezing) Discharge Orders: Discharge Order (Routine); Ordered 12/24/22 Ordered By: Alan Braga Diet: Diabetic diet Activity on Discharge: As tolerated Stand Alone Forms: Patient Portal Discharge page Care Plan Goals: Full recovery from a kidney stone, heart failure, Health Concerns: Chronic heart failure Permanent atrial fibrillation Obesity Kidney stone Hydronephrosis Plan of Treatment: Continue taking all medications as usual and follow up with your doctor as recommended. Follow up with a urologist take prednisne for ashtma Assessment: see above Discharge Date/Time: 12/24/22 13:36
[2022-12-24 09:51] LABS: Anion Gap 16 (12-20); Blood Urea Nitrogen 22 mg/dL (9-16); Calcium 8.9 mg/dL (8.4-10.2); Carbon Dioxide 25 mmol/L (22-29); Chloride 106 mmol/L (96-108); Creatinine Clr Calc Pharmacy 61.3; Estimated Glomerular Filt Rate > 60; Glucose Random 181 mg/dL (60-115); Potassium 4.6 mmol/L (3.3-5.1); Sodium 142 mmol/L (135-145)
[2022-12-24] MEDS: Triamcinolone Acet 0.1 % Cream 15 GM TUBE 1 APPL TOPICAL (11:10)
--- NOTE | 2022-12-24 11:23 | PM.PNNEP ---
Subjective Subjective Date of Service: 12/24/22 Interval history: seen and examined no complaints Physical Exam Vital Signs: Vital Signs: Last Vital Signs Temp 97.7 F 12/24/22 07:20 Pulse 78 12/24/22 08:11 Resp 18 12/24/22 08:11 BP 170/78 H 12/24/22 07:20 Pulse Ox 96 12/24/22 07:20 O2 Del Method 12/24/22 07:20 O2 Flow Rate 1 12/24/22 07:20 BMI result Body Mass Index 38.9 Const: General: no acute distress HEENT: Head: Yes normocephalic and Yes atraumatic Neck: Neck: Yes supple Resp: Auscultation: diminished lung sounds Cardio: Heart sounds: S1 normal heart sound present and S2 normal heart sound present GI: Palpation (GI): Soft to palpation and nontender Extrem: General: Yes normal to inspection Objective Data Labs 12/19/22 10:20 12/24/22 08:31 Labs: Laboratory Results - last 24 hr 12/23/22 12/23/22 12/24/22 11:28 17:16 08:31 Sodium 142 Potassium 4.6 Chloride 106 Carbon Dioxide 25 Anion Gap 16 BUN 22 H Creatinine 0.82 Estim Creat Clear Calc 61.3 Estimated GFR > 60 POC Glucose 157 H 149 H Random Glucose 181 H Calcium 8.9 12/24/22 08:39 Sodium Potassium Chloride Carbon Dioxide Anion Gap BUN Creatinine Estim Creat Clear Calc Estimated GFR POC Glucose 179 H Random Glucose Calcium Microbiology Microbiology Results: Microbiology 12/19/22 21:24 Blood - Venous Blood Culture - Preliminary No growth after 48 hours. 12/19/22 21:24 Blood - Venous Blood Culture - Preliminary No growth after 48 hours. 12/19/22 16:30 Urine clean catch - Urine holliday top Urine Culture - Final Procedures Date of Service Date of Service: 12/24/22 Assessment & Plan Assessment and plan (1) ORION (acute kidney injury): Status: Acute (2) Hydronephrosis: Status: Acute Plan kidney function normalized ORION due to obstructive uropathy resolved s/p b/l ureteral stents placement CT scan showed b/l hydronephrosis and nephrolithiasis (non obstructing) normal baseline kidney function REC allow post obstructive diuresis follow kidney function and electrolytes Time Spent With Patient Time: Total time managing care of this patient today ____ minutes. Progress Note: Quality Stroke Does the patient have a stroke diagnosis?: No
[2022-12-24 11:40] LABS: Glucose, Whole Blood 190 mg/dL (60-115)
--- NOTE | 2022-12-24 11:52 | MHC.CM.PN ---
Patient has been medically cleared for dc to home today, with services. [facility] has accepted Patient and has been notified of today's dc. IMM addressed at bedside with Patient and her family and original was given to Patient and a copy has been placed on the chart.
--- NOTE | 2022-12-25 14:03 | P.F2F_ITS ---
Service Date Service Date: 12/24/22 Encounter Date of encounter: 12/24/22 Reasons for Services Signs and symptoms assessed: Shortness of breath due to heart failure Reason for senior care: medication management and teach disease management Homebound: Leaving the home is medically contraindicated at this time without the asist of a device and/or another person due th the listed conditions above and below. Reason homebound: shortness of breath with minimal effort Homebound supporting statement: Homebound due to shortness of breath with minimal effort and therefore needs the assistance of another person Certification: Based on the above findings, I certify that this patient is confined to the home and needs intermittent senior care care, physical therapy and/or speech therapy, or continues to need occupational therapy. The patient is under my care, and I have initiated the establishment of the plan of care. The patient will be followed by a physician who will periodically review the plan of care. Time Spent With Patient Time: Total time managing care of this patient today ____ minutes.
--- NOTE | 2022-12-25 15:00 | MHC.CM.PN ---
dc summary has now been signed and face to face has been completed; both have been faxed to Corinne CHRISTIANSEN @ [phone] and uploaded into [employer].
== END 2022-12-24 13:36 | disposition home health service (06) | DRG 660 ==
LOC: HO.ED 20:01 → HO.EDOVER 20:47 → HO.S3 12-20 03:01 → HO.IMC 12-20 10:33
PROVIDERS: Physician Assistant Medical; Urology; Admitting Provider Internal Medicine; Emergency Provider Student in an Organized Health Care Education/Training Program; PCP Registered Nurse; Visit Provider Internal Medicine
PROC: 0T788DZ Dilation of Bilateral Ureters with Intraluminal Device, Via Natural or Artificial Opening Endoscopic (ICD-10-PCS; principal; 2022-12-22 16:10)
DX: N13.6 Pyonephrosis (principal); I48.21 Permanent atrial fibrillation; J44.9 Chronic obstructive pulmonary disease, unspecified; Q62.5 Duplication of ureter; F41.9 Anxiety disorder, unspecified; N28.1 Cyst of kidney, acquired; E66.01 Morbid (severe) obesity due to excess calories; I11.0 Hypertensive heart disease with heart failure; I50.9 Heart failure, unspecified; E11.9 Type 2 diabetes mellitus without complications; Z68.38 Body mass index [BMI] 38.0-38.9, adult; N17.9 Acute kidney failure, unspecified; Z20.822 Contact with and (suspected) exposure to COVID-19; Z88.8 Allergy status to other drugs, medicaments and biological substances; Z79.51 Long term (current) use of inhaled steroids; Z79.82 Long term (current) use of aspirin; Z79.899 Other long term (current) drug therapy
CPT/HCPCS: 36415; 71045; 74176; 80048; 80076; 81001; 82947; 83605; 83690; 83735; 83880; 85027; 87040; 87086; 87635; 93005; 93306; 94640; 99285; C1758; C1769; C2617; J0696; J1650; J1885; J1940; J2060; J2270; Q9957; Q9967

== ENCOUNTER 2022-12-25 12:55 | Inpatient (IN) | payer OTHER, SELFPAY ==
--- NOTE | ~2022-12-25 | XR_ITS ---
EXAMINATION: XR CHEST CLINICAL INFORMATION: Shortness of breath COMPARISON: December 20, 2022 and December 24, 2020 TECHNIQUE: AP portable view of the chest was obtained. FINDINGS: The cardiopericardial silhouette is enlarged. No evidence of pulmonary edema. No pneumothorax or pleural effusion. Question small region of hazy opacity versus superimposition of structures. This may be related to some atelectatic change. No confluent pneumonitis appreciated. XR/XR chest 1V IMPRESSION: No evidence of pulmonary edema. No confluent pneumonitis appreciated.
--- NOTE | ~2022-12-25 | CT_ITS ---
EXAMINATION: CT ABDOMEN AND PELVIS WITHOUT CONTRAST CLINICAL INFORMATION: Abdominal pain status post bilateral renal stent placements. COMPARISON: December 19, 2022 TECHNIQUE: Multidetector volumetric imaging was performed from the superior aspect of the liver through the pubic symphysis. Sagittal and coronal reformatted images were obtained on the technologist's workstation. This CT examination was performed using dose optimization techniques as appropriate, variously including the following: *Automated exposure control *Adjustment of mA and/or kV according to patient size (this includes techniques or standardized protocols for targeted exams where dose is matched to indication/reason for exam; i.e. extremities or head) *Use of iterative reconstruction technique DLP: 721 mGy-cm FINDINGS: There is motion artifact present. LUNG BASES: Patient has developed small bilateral pleural effusions right greater than left. Small amount of coronary artery calcification is identified. LIVER, GALLBLADDER, AND BILIARY TREE: The liver is normal in size, shape, and attenuation. No focal hepatic lesion or biliary ductal dilatation is present. The gallbladder is unremarkable with no evidence of radiopaque gallstones, gallbladder wall thickening, or obvious pericholecystic inflammatory changes. PANCREAS: Unremarkable. No abnormal mass appreciated. No peripancreatic inflammatory change. SPLEEN: Unremarkable. ADRENAL GLANDS: Unremarkable. KIDNEYS AND URETERS: Right kidney: Since previous study a right ureteral stent has been placed. There is some mild improvement in moderate right hydronephrosis. There is a region of increased density within the collecting system which may be related to clot. No significant renal capsular collection is seen. There is some mild perinephric stranding. There remains the appearance of ureteral pelvic junction obstruction with decompression of the ureter distal to this. The distal portion of the stent appears to lie within the urinary bladder. Left kidney: There has been placement of a left ureteral stent with positioning of the stent appearing satisfactory. There has been some improvement in the previously noted left hydronephrosis. There is again similar appearance corresponding to a ureteral pelvic junction obstruction with decompressed ureter distal to the UPJ. No subcapsular fluid collections identified. The left kidney is smaller than the right. There is again noted to be a large left renal cyst which is exophytic laterally measuring approximately 9 x 7 cm in size. There is some rim calcification present within this. 8 mm nonobstructing calculus is seen within the lower pole as well as some small linear calcifications being present. This lies approximately 12 cm from the posterior axillary line. Hounsfield measurements are difficult to obtain due to size of the calculus. BLADDER: Distended and unremarkable. The distal ureteral stents are seen in place. There is a locule of nondependent air present within the urinary bladder. GASTROINTESTINAL TRACT: No free air or free fluid is appreciated. No dilated loops of large or small bowel are seen. There is diverticulosis of the sigmoid colon without evidence of acute diverticulitis. No pericolonic inflammatory changes seen. The appendix appears unremarkable. ABDOMINAL WALL: No significant hernia is appreciated. LYMPH NODES: No lymphadenopathy appreciated. VASCULAR: Mild aortoiliac calcified plaque without abdominal aortic aneurysm. PELVIC VISCERA: Unremarkable. OSSEOUS STRUCTURES: No acute destructive bony lesions identified. CT/CT abdomen pelvis wo IV con IMPRESSION: Placement of bilateral renal stents with mild improvement in bilateral hydronephrosis. There appears to be a small amount of clot within the right upper collecting system. Continued prominence of the upper collecting systems with hydronephrosis with the appearance of ureteral pelvic junction obstructions. No free fluid identified and no subcapsular fluid collections or perinephric hematomas or fluid collections identified. Fleischner guidelines were followed.
--- NOTE | ~2022-12-25 | CT_ITS ---
EXAMINATION: CT ANGIOGRAM OF THE CHEST WITH AND WITHOUT CONTRAST (CT PULMONARY ANGIOGRAM FOR PE) CLINICAL INFORMATION: Reason for Exam elevated BNP. SOB/tachypneic/hypoxic COMPARISON: No similar priors. TECHNIQUE: Prior to contrast administration, noncontrast localization images were obtained. Subsequently, multidetector volumetric imaging was performed from the thoracic inlet to below the diaphragms following the administration of 65 mL Omnipaque 350 intravenous contrast. No contrast reaction reported Sagittal, coronal, and MIP oblique sagittal reformatted images were obtained on the CT workstation, uploaded to PACS, and reviewed. This CT examination was performed using dose optimization techniques as appropriate, variously including the following: *Automated exposure control *Adjustment of mA and/or kV according to patient size (this includes techniques or standardized protocols for targeted exams where dose is matched to indication/reason for exam; i.e. extremities or head) *Use of iterative reconstruction technique Total exam dose-length product 233 mGy-cm FINDINGS: QUALITY OF STUDY/CONTRAST BOLUS: Satisfactory. PULMONARY ARTERIES: No central or segmental pulmonary emboli. THORACIC AORTA: No aneurysm. Suboptimal evaluation of dissection due to timing of IV contrast. Scattered atherosclerotic disease. LUNG: Diffuse bronchial wall thickening with scattered mucus impaction and mosaic attenuation of lung parenchyma. No focal consolidation or significant groundglass disease. Central airways are patent. PLEURA: Small right greater than left pleural effusions. No pneumothorax. MEDIASTINUM: Cardiomegaly. No evidence of septal bowing or right heart strain. Subcarinal lymphadenopathy measuring 1.3 cm in short axis. No hilar lymphadenopathy. Heterogeneous right lobe of the thyroid. Nonspecific large calcification in the left lobe of the thyroid which is asymmetrically atrophic. CORONARY ARTERY CALCIFICATION: Present, moderate to severe. CHEST WALL/AXILLA: No axillary or internal mammary lymphadenopathy. OSSEOUS STRUCTURES: No acute or suspicious osseous abnormality. UPPER ABDOMEN: Partially imaged septated cyst with thin calcifications in the left kidney, stable when compared to studies dating back to 2019. Partially included findings of bilateral hydronephrosis with hyperdense debris in the right renal pelvis. There is reflux of contrast into the hepatic veins suggesting elevated right-sided heart pressures. CT/CT angio chest PE protocol IMPRESSION: 1. No evidence of pulmonary embolism. 2. Diffuse bronchial wall thickening with scattered mucus impaction and mosaic attenuation of the lung parenchyma suggesting some degree of air trapping in the setting of small airways disease. 3. Small right greater than left pleural effusions. 4. Enlarged subcarinal lymph nodes. Attention follow-up in future examinations recommended. 5. Cardiomegaly with reflux of contrast into the hepatic veins suggesting elevated right-sided heart pressures. 6. Partially included findings of bilateral hydronephrosis with hyperdense debris in the right renal pelvis. 7. Asymmetrically enlarged heterogeneous right lobe of the thyroid, nonspecific. In the absence of significant comorbidities and in the setting of a normal life expectancy, correlation with a nonemergent thyroid ultrasound is recommended. VTE: negative
[2022-12-25 13:07] VITALS: BP 162/74; PULSE 104; O2SAT 94
[2022-12-25 13:09] VITALS: BP 164/82; PULSE 86; RESP 20; TEMP 36.9; O2SAT 94; BMI 36.6
--- NOTE | 2022-12-25 13:12 | ECG_ITS ---
Test Reason : SOB Blood Pressure : / mmHG Vent. Rate : 087 BPM Atrial Rate : 000 BPM P-R Int : 000 ms QRS Dur : 084 ms QT Int : 402 ms P-R-T Axes : 000 032 104 degrees QTc Int : 483 ms Atrial fibrillation with premature ventricular or aberrantly conducted complexes Nonspecific ST and T wave abnormality Abnormal ECG When compared with ECG of 20-DEC-2022 09:15, Criteria for Septal infarct are no longer Present Nonspecific T wave abnormality now evident in Inferior leads Nonspecific T wave abnormality, worse in Anterolateral leads Referred By: Ewelina Peres Electronically Signed By:Colby Cadena
[2022-12-25 13:48] LABS: COVID-19 Test Positive (Negative); IDNOW Serial# 16C4AD1C
[2022-12-25 13:57] LABS: IDNOW Serial# BCCEAD1C; Influenza A Negative (Negative); Influenza B2 Negative (Negative)
[2022-12-25 14:03] LABS: MANUAL DIFF FLAG NO
[2022-12-25 14:04] LABS: Basophils Percent Auto 0.3 % (0-2); Eosinophils Percent Auto 0.2 % (0-4); Hematocrit 34.9 % (37.0-47.0); Hemoglobin 11.1 g/dl (12.0-16.0); Imm Gran Abs Auto 0.04 X10*3/uL (0.00-0.03); Imm Gran Pct Auto 0.7 % (0.0-0.4); Lymphocytes Absolute Auto 0.4 X10*3/uL (1.2-4.9); Lymphocytes Percent Auto 6.6 % (20-40); Mean Corpuscular HGB Conc 31.8 g/dl (31.0-35.0); Mean Corpuscular Hemoglobin 27.8 pg (27.0-33.0); Mean Corpuscular Volume 87.3 fL (80.0-98.0); Mean Platelet Volume 9.9 fL (9.4-12.3); Monocytes Absolute Auto 0.5 X10*3/uL (0.1-1.2); Monocytes Percent Auto 8.1 % (2-11); Neutrophils Percent Auto 84.1 % (45-73); Platelet Count 258 X10*3/uL (160-400); Red Cell Distribution Width 12.7 % (11.0-16.0)
[2022-12-25 14:14] LABS: INTERNATIONAL NORM RATIO 1.1 (0.9-1.1)
[2022-12-25 14:36] LABS: Alanine Aminotransferase 28 U/L (0-31); Albumin Level 4.2 g/dL (3.5-5.0); Alkaline Phosphatase 93 U/L (39-117); Anion Gap 15 (12-20); Aspartate Amino Transferase 37 U/L (5-31); Bilirubin Direct 0.2 mg/dL (0.0-0.5); Bilirubin Total 0.5 mg/dL (0.0-1.0); Blood Urea Nitrogen 19 mg/dL (9-16); Carbon Dioxide 24 mmol/L (22-29); Chloride 105 mmol/L (96-108); Creatinine Clr Calc Pharmacy 53.9; Estimated Glomerular Filt Rate > 60; Glucose Random 255 mg/dL (60-115); Lipase 24 U/L (8-78); Potassium 4.1 mmol/L (3.3-5.1); Sodium 140 mmol/L (135-145); Total Protein 7.2 g/dL (6.5-8.0)
[2022-12-25 14:38] LABS: B Type Natriuretic Peptide 867 pg/mL (<100)
[2022-12-25 14:43] LABS: Troponin-I High Sensitivity 100.6 ng/L (<3.5-17.0)
--- NOTE | 2022-12-25 14:47 | ED.URI ---
HPI - URI/Sore Throat General Chief Complaint: Upper Respiratory Symptoms Stated Complaint: +COVID @ HOME PER PT ,COUGH,WHEEZE PER EMS Time Seen by Provider: 12/25/22 13:02 Source: patient and EMS Mode of arrival: EMS History of Present Illness HPI Narrative: 77-year-old Wolof-speaking female with a past medical history of asthma, AFib, COPD, diabetes, HTN, HLD, s/p discharge from our facility on 12/24 due to ORION d/t obstructive uropathy s/p bilateral stent placement and acute respiratory distress 2/2 CHF presenting to the ED today via EMS complaining of increasing SOB, orthopnea, nausea, vomiting, diarrhea x today. Admits tested positive on a home COVID-19 test this morning. Also reports dry cough. Denies fever, chills, chest pain, dysuria, flank pain, pedal edema MD elicited complaint: cough Onset (ago): day(s) Related Data Home Medications Medication Instructions Recorded Confirmed albuterol sulfate 2.5 mg/3 mL 1 amp inhalation QID PRN Wheezing 09/06/22 12/19/22 (0.083 %) solution for nebulization alendronate 70 mg tablet 1 tab PO REESE 09/06/22 12/19/22 aspirin 81 mg tablet,delayed 1 tab PO DAILY 09/06/22 12/19/22 release blood sugar diagnostic (Count includes the [facility] 09/06/22 10/23/22 Verio test strips) blood-glucose meter (Count includes the [facility] 09/06/22 10/23/22 Verio Flex Meter) diltiazem HCl 180 mg 1 cap PO DAILY 09/06/22 12/19/22 capsule,extended release 24 hr (Cartia XT) ferrous sulfate 325 mg (65 mg 1 tab PO Q OTHER DAY 09/06/22 12/19/22 iron) tablet (FeroSul) fluticasone 250 mcg-salmeterol 50 1 puff inhalation BID 09/06/22 12/19/22 mcg/dose blistr powdr for inhalation (Advair Diskus) fluticasone propionate 50 2 spray intranasal DAILY 09/06/22 12/19/22 mcg/actuation nasal spray,suspension furosemide 80 mg tablet 1 tab PO BIDWM 09/06/22 12/19/22 lancets 33 gauge (OneTouch Delica 09/06/22 10/23/22 Plus Lancet) methylcellulose (laxative) 500 mg 1 tab PO DAILY 09/06/22 12/19/22 tablet (Fiber Laxative (methylcellulose)) sennosides 8.6 mg tablet (senna) 1 tab PO BID PRN constipation 09/06/22 12/19/22 tramadol 50 mg tablet 1 tab PO TID PRN pain 09/06/22 12/19/22 albuterol sulfate 90 mcg/actuation 2 puff inhalation Q4-6H PRN 10/23/22 12/19/22 aerosol inhaler (Ventolin HFA) Wheezing atorvastatin 80 mg tablet 80 mg PO DAILY 10/23/22 12/19/22 carvedilol 3.125 mg tablet 3.125 mg PO BID 10/23/22 12/19/22 losartan 100 mg tablet 100 mg PO DAILY 10/23/22 12/19/22 metformin 850 mg tablet 850 mg PO BIDWM 10/23/22 12/19/22 triamcinolone acetonide 0.1 % 1 appl topical BID 12/19/22 12/19/22 topical cream Previous Rx's Medication Instructions Recorded docusate sodium 100 mg capsule 100 mg PO BID #180 caps 10/27/22 famotidine 20 mg tablet 20 mg PO BID #180 tabs 10/27/22 polyethylene glycol 3350 17 17 g PO DAILY #510 grams 10/27/22 gram/dose oral powder (Miralax) simethicone 125 mg capsule (Gas 125 mg PO TID-QID PRN Indigestion 11/18/22 Relief Extra Strength) #120 caps prednisone 20 mg tablet 20 mg PO DAILY #4 tabs 12/24/22 Allergies Allergy/AdvReac Type Severity Reaction Status Date / Time montelukast [Singulair] Allergy Unknown itching/marysol Verified 11/25/22 11:32 h From Singulair Allergy Intermediate RASH Uncoded 11/25/22 11:32 Review of Systems Review of Systems: Constitutional: No Fever, No Chills, No Night Sweats, No Fatigue, No Malaise ENT/Mouth: No Hearing loss, No Ear Pain, No Nasal Congestion, No sore throat, No Rhinorrhea Eyes: No Eye Pain, No Swelling, No Redness, No Vision Changes Cardiovascular: No Chest Pain, + SOB, + Dyspnea on Exertion, + Orthopnea, + chronic Edema, No Palpitations Respiratory: + Cough, No Sputum, No Wheezing, + Dyspnea Gastrointestinal: + Nausea, + Vomiting, + Diarrhea, No Constipation, + Abdominal pain Genitourinary: No irregular bleeding, No Dysuria, No Urinary Frequency, No Hematuria, No Urinary Incontinence/retention, No Flank Pain Musculoskeletal: No joint pain, No Myalgias, No Joint Swelling Skin: No Skin Lesions, No rash Neuro: No Weakness, No Numbness, No Dizziness, No Headache Yes all other systems are reviewed and are negative Constitutional: Constitutional: Reports as per [facility] Past Medical History Attestation statement: The following information was validated with the patient. Medical History Alcohol abuse Arthritis Asthma Atrial fibrillation COPD (chronic obstructive pulmonary disease) Diabetes Gout Hypertension Hypertension Knee arthropathy Nephrolithiasis Osteoarthritis Thrombosed external hemorrhoid Surgical History History of total knee arthroplasty Hx of colonoscopy Social History Social History Household Members: None Housing: Apartment Housing Other:: low income housing Do you presently have visiting nurse or other home services: No Unable to assess alcohol history related to: Unknown Alcohol intake: never Patient Tobacco Use Status: Never used Tobacco Smoked in Last 30 Days: No e-Cigarette/Vaping Use: Never Used Second Hand Smoke Exposure: No Use of substances other than those prescribed or required for medical reasons: No Advance Directives: Yes Advance Directives on File: Yes Advance Directives Date on File: 09/07/22 service: No Current occupational status: unemployed Physical Exam Vital Signs: Vital Signs: Last Vital Signs Temp 99.2 F 12/25/22 15:06 Pulse 87 12/25/22 15:06 Resp 16 12/25/22 15:06 BP 118/89 12/25/22 15:06 Pulse Ox 97 12/25/22 15:06 O2 Del Method 12/25/22 15:06 O2 Flow Rate 2 12/25/22 15:06 Oxygen Flow Rate 2 12/25/22 15:06 BMI result Body Mass Index 36.6 Const: General: cooperative and no acute distress Orientation/consciousness: patient oriented x3 Limitations: no limitations HEENT: Head: Yes normal to inspection and Yes atraumatic Ears: hearing grossly normal bilaterally General nose exam: Normal external nose present Face and sinus: Yes normal facial exam Eyes: General: appearance normal, both eyes and all related structures EOM: EOMs intact bilaterally Neck: Neck: Yes normal visual inspection and Yes no meningeal signs Resp: Effort & Inspection: normal respiratory effort and no respiratory distress Auscultation: diminished lung sounds bilateral in the lower lung robles Cardio: Rate: regular rate Heart sounds: S1 normal heart sound present and S2 normal heart sound present GI: Inspection: Yes normal to inspection Palpation (GI): Soft to palpation, Tenderness to palpation present (GI) (Diffusely) in the epigastrum; with no rebound tenderness, no guarding and not rigid : General: Yes no CVA tenderness Back/Spine/Pelvis: Back: no CVA tenderness Skin: Rashes: no rashes Wounds: no wounds Neuro: General: patient oriented x3, tone normal and no meningeal signs Gait exam (Neuro): Normal gait present Extrem: Other: + chronic bilateral LE edema, nonpitting Course Course Course Narrative: -COVID-19 positive -no leukocytosis. H&H stable. -1448--troponin elevated to 100.6 > will obtain 3 hour repeat. BNP 867 -with minimal movement changing stretchers patient desatted to 86% on RA and became tachypneic with accessory muscle use > 2L NC applied sating 97% 1600--XR chest 1V IMPRESSION: No evidence of pulmonary edema. No confluent pneumonitis appreciated. >> will obtain CTA to rule out PE -1715--CT abdomen pelvis wo IV con IMPRESSION: Placement of bilateral renal stents with mild improvement in bilateral hydronephrosis. There appears to be a small amount of clot within the right upper collecting system. Continued prominence of the upper collecting systems with hydronephrosis with the appearance of ureteral pelvic junction obstructions. ? No free fluid identified and no subcapsular fluid collections or perinephric hematomas or fluid collections identified. ? Fleischner guidelines were followed. >> will consult Urology Dr. Liriano > who reported no intervention needed at this time. 1913-- CT angio chest PE protocol IMPRESSION: 1.? No evidence of pulmonary embolism. 2.? Diffuse bronchial wall thickening with scattered mucus impaction and mosaic attenuation of the lung parenchyma suggesting some degree of air trapping in the setting of small airways disease. 3.? Small right greater than left pleural effusions. 4.? Enlarged subcarinal lymph nodes. Attention follow-up in future examinations recommended. 5.? Cardiomegaly with reflux of contrast into the hepatic veins suggesting elevated right-sided heart pressures. 6.? Partially included findings of bilateral hydronephrosis with hyperdense debris in the right renal pelvis. 7.? Asymmetrically enlarged heterogeneous right lobe of the thyroid, nonspecific. In the absence of significant comorbidities and in the setting of a normal life expectancy, correlation with a nonemergent thyroid ultrasound is recommended. ? VTE: negative >> patient admitted to hospitalist for further management. IV Decadron ordered. Medications Administered Discontinued Medications Generic Name Dose Route Start Last Admin Trade Name Freq PRN Reason Stop Dose Admin Furosemide 40 mg 12/25/22 14:51 12/25/22 15:06 Furosemide 40 Mg/4 Ml Vial IVPUSH 12/25/22 14:52 40 mg ONCE ONE Administration Protocol Iohexol 100 ml 12/25/22 18:02 12/25/22 18:03 Iohexol 350 Mg/Ml 100 Ml Infus..Btl IV 12/25/22 18:03 65 ml ONCE ONE Administration Medical Decision Making Medical Decision Making MDM Narrative: 77-year-old Wolof-speaking female with a past medical history of asthma, AFib, COPD, diabetes, HTN, HLD, s/p discharge from our facility on 12/24 due to ORION d/t obstructive uropathy s/p bilateral stent placement and acute respiratory distress 2/2 CHF presenting to the ED today via EMS complaining of + COVID-19 home test, increasing SOB, orthopnea, nausea, vomiting, diarrhea x today. On exam satting 94% on RA, tachypneic, short of breath with minimal movement, decreased breath sounds bibasilar, abdomen soft diffusely tender greatest in upper abdomen. Chronic bilateral edema. Concern for COVID-19 vs CHF exacerbation vs asthma vs pneumonia vs stent complication/recurrent hydro or UTI. Lower suspicion for appendicitis/diverticulitis at this time. Lower concern for PE/DVT Plan: EKG, labs, UA, CXR, CT AP, COVID-19/influenza testing, admission Please refer to course for remaining clinical decision making, interpretation of labs/imaging results, and discussions with consultants and/or family members. Differential Diagnosis Differential Diagnoses: The differential diagnosis associated with the presentation includes As above Admission/Observation Consideration of admission/observation: Escalation of care including admission/observation considered Lab Data 12/25/22 13:59 12/25/22 13:59 Labs: Lab Results 12/25/22 12/25/22 12/25/22 Range/Units 13:33 13:33 13:59 WBC 6.0 (4.8-10.8) X10*3/uL RBC 4.00 L (4.20-5.50) X10*6/uL Hgb 11.1 L (12.0-16.0) g/dl Hct 34.9 L (37.0-47.0) % MCV 87.3 (80.0-98.0) fL MCH 27.8 (27.0-33.0) pg MCHC 31.8 (31.0-35.0) g/dl RDW 12.7 (11.0-16.0) % Plt Count 258 (160-400) X10*3/uL MPV 9.9 (9.4-12.3) fL Immature Gran % (Auto) 0.7 H (0.0-0.4) % Neut % (Auto) 84.1 H (45-73) % Lymph % (Auto) 6.6 L (20-40) % [place] % (Auto) 8.1 (2-11) % Eos % (Auto) 0.2 (0-4) % Baso % (Auto) 0.3 (0-2) % Lymph # (Auto) 0.4 L (1.2-4.9) X10*3/uL [place] # (Auto) 0.5 (0.1-1.2) X10*3/uL Eos # (Auto) 0.0 (0.0-0.4) X10*3/uL Baso # (Auto) 0.0 (0.0-0.2) X10*3/uL Abs Immat Gran (auto) 0.04 H (0.00-0.03) X10*3/uL Absolute Neuts (auto) 5.0 (2.0-8.3) x10*3/uL Absolute Nucleated RBC 0.000 (0.0-0.012) X10*3/uL Nucleated RBC % (auto) 0.0 (0.0-0.2) /100WBC PT (10.0-13.1) SEC INR (0.9-1.1) Sodium (135-145) mmol/L Potassium (3.3-5.1) mmol/L Chloride (96-108) mmol/L Carbon Dioxide (22-29) mmol/L Anion Gap (12-20) BUN (9-16) mg/dL Creatinine (0.5-1.4) mg/dL Estim Creat Clear Calc Estimated GFR Random Glucose (60-115) mg/dL Calcium (8.4-10.2) mg/dL Magnesium (1.6-2.6) mg/dL Total Bilirubin (0.0-1.0) mg/dL Direct Bilirubin (0.0-0.5) mg/dL AST (5-31) U/L ALT (0-31) U/L Alkaline Phosphatase (39-117) U/L Troponin I High Sens (<3.5-17.0) ng/L B-Natriuretic Peptide (<100) pg/mL Total Protein (6.5-8.0) g/dL Albumin (3.5-5.0) g/dL Lipase (8-78) U/L Urine Color Urine Appearance Urine pH (5.0-9.0) Ur Specific [place] (1.005-1.025) Urine Protein (Neg-Trace) mg/dL Urine Glucose (UA) (Negative) mg/dL Urine Ketones (Negative) mg/dL Urine Blood (Negative) Urine Nitrite (Negative) Ur Leukocyte Esterase (Negative) Urine RBC (0-2) /HPF Urine WBC (0-5) /HPF Ur Squamous Epith Cells (0-2) /HPF Urine Bacteria (None Seen) Hyaline Casts (0-2) /LPF COVID-19 (MARQUISE) Positive A (Negative) COVID-19 Clin Com See Note Influenza Type A (ESTEBAN) Negative (Negative) Influenza Type B (ESTEBAN) Negative (Negative) Influenza A & B Note See Note 12/25/22 12/25/22 12/25/22 Range/Units 13:59 13:59 13:59 WBC (4.8-10.8) X10*3/uL RBC (4.20-5.50) X10*6/uL Hgb (12.0-16.0) g/dl Hct (37.0-47.0) % MCV (80.0-98.0) fL MCH (27.0-33.0) pg MCHC (31.0-35.0) g/dl RDW (11.0-16.0) % Plt Count (160-400) X10*3/uL MPV (9.4-12.3) fL Immature Gran % (Auto) (0.0-0.4) % Neut % (Auto) (45-73) % Lymph % (Auto) (20-40) % [place] % (Auto) (2-11) % Eos % (Auto) (0-4) % Baso % (Auto) (0-2) % Lymph # (Auto) (1.2-4.9) X10*3/uL [place] # (Auto) (0.1-1.2) X10*3/uL Eos # (Auto) (0.0-0.4) X10*3/uL Baso # (Auto) (0.0-0.2) X10*3/uL Abs Immat Gran (auto) (0.00-0.03) X10*3/uL Absolute Neuts (auto) (2.0-8.3) x10*3/uL Absolute Nucleated RBC (0.0-0.012) X10*3/uL Nucleated RBC % (auto) (0.0-0.2) /100WBC PT 13.0 (10.0-13.1) SEC INR 1.1 (0.9-1.1) Sodium 140 (135-145) mmol/L Potassium 4.1 (3.3-5.1) mmol/L Chloride 105 (96-108) mmol/L Carbon Dioxide 24 (22-29) mmol/L Anion Gap 15 (12-20) BUN 19 H (9-16) mg/dL Creatinine 0.90 (0.5-1.4) mg/dL Estim Creat Clear Calc 53.9 Estimated GFR > 60 Random Glucose 255 H (60-115) mg/dL Calcium 9.0 (8.4-10.2) mg/dL Magnesium 2.0 (1.6-2.6) mg/dL Total Bilirubin 0.5 (0.0-1.0) mg/dL Direct Bilirubin 0.2 (0.0-0.5) mg/dL AST 37 H (5-31) U/L ALT 28 (0-31) U/L Alkaline Phosphatase 93 (39-117) U/L Troponin I High Sens 100.6 H* (<3.5-17.0) ng/L B-Natriuretic Peptide (<100) pg/mL Total Protein 7.2 (6.5-8.0) g/dL Albumin 4.2 (3.5-5.0) g/dL Lipase 24 (8-78) U/L Urine Color Urine Appearance Urine pH (5.0-9.0) Ur Specific [place] (1.005-1.025) Urine Protein (Neg-Trace) mg/dL Urine Glucose (UA) (Negative) mg/dL Urine Ketones (Negative) mg/dL Urine Blood (Negative) Urine Nitrite (Negative) Ur Leukocyte Esterase (Negative) Urine RBC (0-2) /HPF Urine WBC (0-5) /HPF Ur Squamous Epith Cells (0-2) /HPF Urine Bacteria (None Seen) Hyaline Casts (0-2) /LPF COVID-19 (MARQUISE) (Negative) COVID-19 Clin Com Influenza Type A (ESTEBAN) (Negative) Influenza Type B (ESTEBAN) (Negative) Influenza A & B Note 12/25/22 12/25/22 12/25/22 Range/Units 13:59 15:56 16:57 WBC (4.8-10.8) X10*3/uL RBC (4.20-5.50) X10*6/uL Hgb (12.0-16.0) g/dl Hct (37.0-47.0) % MCV (80.0-98.0) fL MCH (27.0-33.0) pg MCHC (31.0-35.0) g/dl RDW (11.0-16.0) % Plt Count (160-400) X10*3/uL MPV (9.4-12.3) fL Immature Gran % (Auto) (0.0-0.4) % Neut % (Auto) (45-73) % Lymph % (Auto) (20-40) % [place] % (Auto) (2-11) % Eos % (Auto) (0-4) % Baso % (Auto) (0-2) % Lymph # (Auto) (1.2-4.9) X10*3/uL [place] # (Auto) (0.1-1.2) X10*3/uL Eos # (Auto) (0.0-0.4) X10*3/uL Baso # (Auto) (0.0-0.2) X10*3/uL Abs Immat Gran (auto) (0.00-0.03) X10*3/uL Absolute Neuts (auto) (2.0-8.3) x10*3/uL Absolute Nucleated RBC (0.0-0.012) X10*3/uL Nucleated RBC % (auto) (0.0-0.2) /100WBC PT (10.0-13.1) SEC INR (0.9-1.1) Sodium (135-145) mmol/L Potassium (3.3-5.1) mmol/L Chloride (96-108) mmol/L Carbon Dioxide (22-29) mmol/L Anion Gap (12-20) BUN (9-16) mg/dL Creatinine (0.5-1.4) mg/dL Estim Creat Clear Calc Estimated GFR Random Glucose (60-115) mg/dL Calcium (8.4-10.2) mg/dL Magnesium (1.6-2.6) mg/dL Total Bilirubin (0.0-1.0) mg/dL Direct Bilirubin (0.0-0.5) mg/dL AST (5-31) U/L ALT (0-31) U/L Alkaline Phosphatase (39-117) U/L Troponin I High Sens 112.3 H* (<3.5-17.0) ng/L B-Natriuretic Peptide 867 H (<100) pg/mL Total Protein (6.5-8.0) g/dL Albumin (3.5-5.0) g/dL Lipase (8-78) U/L Urine Color RED Urine Appearance Cloudy Urine pH 6.0 (5.0-9.0) Ur Specific [place] 1.010 (1.005-1.025) Urine Protein 30 (1+) H (Neg-Trace) mg/dL Urine Glucose (UA) Negative (Negative) mg/dL Urine Ketones Negative (Negative) mg/dL Urine Blood Large (3+) H (Negative) Urine Nitrite Negative (Negative) Ur Leukocyte Esterase Trace H (Negative) Urine RBC >20 H (0-2) /HPF Urine WBC 0-5 (0-5) /HPF Ur Squamous Epith Cells 0-2 (0-2) /HPF Urine Bacteria None Seen (None Seen) Hyaline Casts 0-2 (0-2) /LPF COVID-19 (MARQUISE) (Negative) COVID-19 Clin Com Influenza Type A (ESTEBAN) (Negative) Influenza Type B (ESTEBAN) (Negative) Influenza A & B Note Critical Care Time Critical Care Time Critical Care Time: Yes Total Critical Care Time: 45 Attestation: I have personally provided critical care time exclusive of time spent on separately billable procedures. Time includes review of lab data, radiology results, discussion with consultants, and monitoring for potential decompensation. Intervention performed as documented. Discharge Plan Discharge Clinical Impression: COVID-19, CHF (congestive heart failure) Patient Disposition: Admitted As Inpatient
[2022-12-25 15:06] VITALS: BP 118/89; PULSE 87; RESP 16; TEMP 37.3; O2SAT 97
[2022-12-25] MEDS: Furosemide 40 MG/4 ML VIAL IVPUSH (15:06)
--- NOTE | 2022-12-25 15:08 | PC.NURSE ---
assumed care of patient, pt pw SOB, POS for COVID here in ED, satting 97% on 2L NC. EKG done, XRAY done, labs drawn and sent, given 40mg IV lasix. VSS
[2022-12-25 16:15] LABS: Appearance Urine Cloudy; Color Urine RED; Glucose Urine UA Negative (Negative); Leukocyte Esterase Urine Trace (Negative); Nitrite Urine Negative (Negative); UMIC TRIGGER UACC YES; Urine Blood Large (3+) (Negative); Urine Ketones Negative (Negative); Urine Protein 30 (1+) mg/dL (Neg-Trace)
--- NOTE | 2022-12-25 16:19 | PC.NURSE ---
4 PIVs have infiltrated, US guided IV placed which also infiltrated. COUNTER CLERK at bedside to attempt EJ.
[2022-12-25 16:41] LABS: Bacteria Urine None Seen (None Seen); Hyaline Casts Urine 0-2 /LPF (0-2); RBC Urine >20 /HPF (0-2); Squamous Epithelial Cell Urine 0-2 /HPF (0-2); WBC Urine 0-5 /HPF (0-5)
[2022-12-25 17:34] LABS: Troponin-I High Sensitivity 112.3 ng/L (<3.5-17.0)
[2022-12-25] MEDS: iohexoL 350 MG/ML 100 ML INFUS..BTL IV (18:03)
--- NOTE | 2022-12-25 19:32 | PHA.MEDREC ---
Pharmacy Consult ? Medication Reconciliation Pharmacy has completed the medication reconciliation. Pt discharged yesterday 12/24; used discharge instructions
--- NOTE | 2022-12-25 19:34 | P.HPHOSP_ITS ---
History of Present Illness Date of Service: 12/25/22 Attending physician on admission: Balbir Abraham Chief Complaint: SOB Pt is a -year-old female with a PMH significant for?asthma, chronic AFib, COPD, CHF, [id number] diabetes, HTN, HLD, and s/p discharge from here yesterday for ORION d/t obstructive uropathy s/p bilateral stent placement and CHF exacerbation who presents to the ED with?increasing SOB. Patient is Maldivian- speaking only, manager spanish services utilized. Pt states she woke up this morning with increasing SOB and productive cough. She also notes she has been e xperiencing diarrhea many times since last night. Patient denies diarrhea is foul-smelling. Endorses orthopnea and some mild abdominal pain secondary to coughing. Patient denies fever, chills, nausea, vomiting. No headache, changes in vision, difficulty swallowing. Patient has chronic edema, has not noticed any additional swelling in her legs. In the ED patient was tachypneic and desatting to 86% on room air when transferred. Labs were significant for WBC WNL, random glucose of 255, troponin 100.6 with repeat flat at 112.3, BNP 867 (up from 328 at time of last admission. UA negative for UTI. Patient is a positive COVID. CXR showed no acute cardiopulmonary process. CTA showed no evidence of pulmonary embolism, but did show bilateral small pleural effusions with right greater than left, diffuse bronchial wall thickening with scattered mucus impaction mosaic attenuation, evidence of elevated right sided heart pressure, enlarged sub carinal lymph nodes, and asymmetrical enlarged heterogeneous right lobe of the thyroid. CT of the abdomen and pelvis showed improvement in bilateral hydronephrosis with placement of bilateral renal stents, with small amount of clot within the upper right collecting system. EKG demonstrated atrial fibrillation without evidence of ST elevations or depressions. Pt was treated with furosemide 40 mg IV. Pt will be admitted to the hospital for treatment further evaluation of CHF and hypoxic respiratory failure in setting of COVID infection. Review of Systems Review of Systems: Increasing SOB x1 day Diarrhea x2 days Mild abdominal pain with coughing Denies fever, chills, nausea, vomiting Denies chest pain/pressure, palpitations Yes all other systems are reviewed and are negative [facility] Medical History Alcohol abuse Arthritis Asthma Atrial fibrillation COPD (chronic obstructive pulmonary disease) Diabetes Gout Hypertension Hypertension Knee arthropathy Nephrolithiasis Osteoarthritis Thrombosed external hemorrhoid Surgical History History of total knee arthroplasty Hx of colonoscopy Social History Household Members: None Housing: Apartment Housing Other:: low income housing Do you presently have visiting nurse or other home services: No Unable to assess alcohol history related to: Unknown Alcohol intake: never Patient Tobacco Use Status: Never used Tobacco Smoked in Last 30 Days: No e-Cigarette/Vaping Use: Never Used Second Hand Smoke Exposure: No Use of substances other than those prescribed or required for medical reasons: No Advance Directives: Yes Advance Directives on File: Yes Advance Directives Date on File: 09/07/22 service: No Current occupational status: unemployed Meds Allergies Allergy/AdvReac Type Severity Reaction Status Date / Time montelukast [Singulair] Allergy Unknown itching/marysol Verified 11/25/22 11:32 h From Singulair Allergy Intermediate RASH Uncoded 11/25/22 11:32 Active Medications: Current Medications Acetaminophen (Acetaminophen 325 Mg Tablet) 650 mg PO Q6H PRN PRN Reason: Pain, Mild (Pain Scale 1-3) Dextrose (Dextrose 50 % 25 Gm/50 Ml Syringe) 25 gm IVPUSH Q15M PRN; Protocol PRN Reason: per Hypoglycemia Standing Ord. Enoxaparin Sodium (Enoxaparin Sodium 40 Mg/0.4 Ml Syringe) 40 mg SUBCUT Q24H GONZALEZ Glucose (Glucose Gel 15 Gm Gel..Gram.) 15 gm PO Q15M PRN; Protocol PRN Reason: per Hypoglycemia Standing Ord. Insulin Human Lispro (Insulin Lispro 100 Unit/Ml 3 Ml Vial) 0 unit SUBCUT QIDACHS GONZALEZ; Protocol Melatonin (Melatonin 3 Mg Tablet) 6 mg PO BEDTIME PRN PRN Reason: Insomnia Ondansetron HCl (Ondansetron Hcl 4 Mg/2 Ml Vial) 4 mg IVPUSH Q8H PRN PRN Reason: Nausea and Vomiting Pharmacy Consult (Consult Rx Perform Med Rec) 1 each MISCELLANE ONCE PRN PRN Reason: Consult order Sodium Chloride (0.9 % Sodium Chloride Flush 3 Ml Syringe) 3 ml IVFLUSH QSHIFT GONZALEZ Home Medications Medication Instructions Recorded Confirmed Last Taken Type albuterol sulfate 2.5 mg/3 mL 1 amp inhalation QID PRN Wheezing 09/06/2212/19/22 History (0.083 %) solution for nebulization alendronate 70 mg tablet 1 tab PO REESE 09/06/22 12/25/22 12/14/22 History aspirin 81 mg tablet,delayed 1 tab PO DAILY 09/06/22 12/25/22 12/19/22 History release blood sugar diagnostic ([facility] 09/06/22 10/23/22 Unknown History Verio test strips) blood-glucose meter ([facility] 09/06/22 10/23/22 Unknown History Verio Flex Meter) diltiazem HCl 180 mg 1 cap PO DAILY 09/06/22 12/25/22 12/19/22 History capsule,extended release 24 hr (Cartia XT) ferrous sulfate 325 mg (65 mg 1 tab PO Q OTHER DAY 09/06/22 12/25/22 12/24/22 History iron) tablet (FeroSul) fluticasone 250 mcg-salmeterol 50 1 puff inhalation BID 09/06/22 12/25/22 12/19/22 History mcg/dose blistr powdr for inhalation (Advair Diskus) fluticasone propionate 50 2 spray intranasal DAILY 09/06/22 12/25/22 12/19/22 History mcg/actuation nasal spray,suspension furosemide 80 mg tablet 1 tab PO BIDWM 09/06/22 12/25/22 12/19/22 [facility] 09/06/22 10/23/22 Unknown History Plus Lancet) methylcellulose (laxative) 500 mg 1 tab PO DAILY 09/06/22 12/25/22 12/19/22 History tablet (Fiber Laxative (methylcellulose)) sennosides 8.6 mg tablet (senna) 1 tab PO BID PRN constipation 09/06/22 12/25/22 Unknown History tramadol 50 mg tablet 1 tab PO TID PRN pain 09/06/22 12/25/22 Unknown History albuterol sulfate 90 mcg/actuation 2 puff inhalation Q4-6H PRN 10/23/22 12/25/22 Unknown History aerosol inhaler (Ventolin HFA) Wheezing atorvastatin 80 mg tablet 80 mg PO DAILY 10/23/22 12/25/22 12/19/22 History carvedilol 3.125 mg tablet 3.125 mg PO BID 10/23/22 12/25/22 12/19/22 History losartan 100 mg tablet 100 mg PO DAILY 10/23/22 12/25/22 12/19/22 History metformin 850 mg tablet 850 mg PO BIDWM 10/23/22 12/25/22 12/18/22 History triamcinolone acetonide 0.1 % 1 appl topical BID 12/19/22 12/25/22 Unknown History topical cream Physical Exam Vital Signs and Narrative: Vital Signs: Last Vital Signs Temp 99.2 F 12/25/22 15:06 Pulse 87 12/25/22 15:06 Resp 16 12/25/22 15:06 BP 118/89 12/25/22 15:06 Pulse Ox 97 12/25/22 15:06 O2 Del Method 12/25/22 15:06 O2 Flow Rate 2 12/25/22 15:06 Oxygen Flow Rate 2 12/25/22 15:06 BMI result Body Mass Index 36.6 Constitutional: Alert, in no acute distress. Mental Status: Oriented to person, place and time. Eyes: Pupils are equal, round, and reactive to light. Ear, Nose, and Throat: Oropharynx clear, mucous membranes moist. Ears and nose without deformities. Trachea midline. Respiratory: Diffuse crackels bilaterally. Cardiovascular: Irregularly regular rhythm. No murmurs, rubs, or gallops. Gastrointestinal: Abdomen soft, non-tender, non-distended. Normal bowel sounds. Neurologic: Cranial nerves II-XII are grossly intact. No focal neurological deficits. Moves all extremities spontaneously. Skin: No rashes or lesions noted. Musculoskeletal: No cyanosis or clubbing. Extremities: +1 pitting edema bilaterally of lower legs. Psychiatric: Normal mood and affect. Results Labs 12/25/22 13:59 12/25/22 13:59 Labs: Laboratory Results - last 24 hr 12/25/22 12/25/22 12/25/22 13:33 13:33 13:59 MCV 87.3 MCH 27.8 MCHC 31.8 RDW 12.7 Plt Count 258 MPV 9.9 Immature Gran % (Auto) 0.7 H Neut % (Auto) 84.1 H Lymph % (Auto) 6.6 L [place] % (Auto) 8.1 Eos % (Auto) 0.2 Baso % (Auto) 0.3 Lymph # (Auto) 0.4 L [place] # (Auto) 0.5 Eos # (Auto) 0.0 Baso # (Auto) 0.0 Abs Immat Gran (auto) 0.04 H Absolute Neuts (auto) 5.0 Absolute Nucleated RBC 0.000 Nucleated RBC % (auto) 0.0 PT INR Anion Gap Estim Creat Clear Calc Estimated GFR Random Glucose Calcium Magnesium Total Bilirubin Direct Bilirubin AST ALT Alkaline Phosphatase Troponin I High Sens B-Natriuretic Peptide Total Protein Albumin Lipase Urine Color Urine Appearance Urine pH Ur Specific [place] Urine Protein Urine Glucose (UA) Urine Ketones Urine Blood Urine Nitrite Ur Leukocyte Esterase Urine RBC Urine WBC Ur Squamous Epith Cells Urine Bacteria Hyaline Casts COVID-19 (MARQUISE) Positive A COVID-19 Clin Com See Note Influenza Type A (ESTEBAN) Negative Influenza Type B (ESTEBAN) Negative Influenza A & B Note See Note 12/25/22 12/25/22 12/25/22 13:59 13:59 13:59 MCV MCH MCHC RDW Plt Count MPV Immature Gran % (Auto) Neut % (Auto) Lymph % (Auto) [place] % (Auto) Eos % (Auto) Baso % (Auto) Lymph # (Auto) [place] # (Auto) Eos # (Auto) Baso # (Auto) Abs Immat Gran (auto) Absolute Neuts (auto) Absolute Nucleated RBC Nucleated RBC % (auto) PT 13.0 INR 1.1 Anion Gap 15 Estim Creat Clear Calc 53.9 Estimated GFR > 60 Random Glucose 255 H Calcium 9.0 Magnesium 2.0 Total Bilirubin 0.5 Direct Bilirubin 0.2 AST 37 H ALT 28 Alkaline Phosphatase 93 Troponin I High Sens 100.6 H* B-Natriuretic Peptide Total Protein 7.2 Albumin 4.2 Lipase 24 Urine Color Urine Appearance Urine pH Ur Specific Bryan Urine Protein Urine Glucose (UA) Urine Ketones Urine Blood Urine Nitrite Ur Leukocyte Esterase Urine RBC Urine WBC Ur Squamous Epith Cells Urine Bacteria Hyaline Casts COVID-19 (MARQUISE) COVID-19 Clin Com Influenza Type A (ESTEBAN) Influenza Type B (ESTEBAN) Influenza A & B Note 12/25/22 12/25/22 12/25/22 13:59 15:56 16:57 MCV MCH MCHC RDW Plt Count MPV Immature Gran % (Auto) Neut % (Auto) Lymph % (Auto) [place] % (Auto) Eos % (Auto) Baso % (Auto) Lymph # (Auto) [place] # (Auto) Eos # (Auto) Baso # (Auto) Abs Immat Gran (auto) Absolute Neuts (auto) Absolute Nucleated RBC Nucleated RBC % (auto) PT INR Anion Gap Estim Creat Clear Calc Estimated GFR Random Glucose Calcium Magnesium Total Bilirubin Direct Bilirubin AST ALT Alkaline Phosphatase Troponin I High Sens 112.3 H* B-Natriuretic Peptide 867 H Total Protein Albumin Lipase Urine Color RED Urine Appearance Cloudy Urine pH 6.0 Ur Specific Bryan 1.010 Urine Protein 30 (1+) H Urine Glucose (UA) Negative Urine Ketones Negative Urine Blood Large (3+) H Urine Nitrite Negative Ur Leukocyte Esterase Trace H Urine RBC >20 H Urine WBC 0-5 Ur Squamous Epith Cells 0-2 Urine Bacteria None Seen Hyaline Casts 0-2 COVID-19 (MARQUISE) COVID-19 Clin Com Influenza Type A (ESTEBAN) Influenza Type B (ESTEBAN) Influenza A & B Note Imaging Radiologist's Impressions: Impressions Abdomen/Pelvis CT 12/25/22 14:20 IMPRESSION: Placement of bilateral renal stents with mild improvement in bilateral hydronephrosis. There appears to be a small amount of clot within the right upper collecting system. Continued prominence of the upper collecting systems with hydronephrosis with the appearance of ureteral pelvic junction obstructions. No free fluid identified and no subcapsular fluid collections or perinephric hematomas or fluid collections identified. Fleischner guidelines were followed. Chest X-Ray 12/25/22 14:22 IMPRESSION: No evidence of pulmonary edema. No confluent pneumonitis appreciated. Chest CTA 12/25/22 18:06 IMPRESSION: 1. No evidence of pulmonary embolism. 2. Diffuse bronchial wall thickening with scattered mucus impaction and mosaic attenuation of the lung parenchyma suggesting some degree of air trapping in the setting of small airways disease. 3. Small right greater than left pleural effusions. 4. Enlarged subcarinal lymph nodes. Attention follow-up in future examinations recommended. 5. Cardiomegaly with reflux of contrast into the hepatic veins suggesting elevated right-sided heart pressures. 6. Partially included findings of bilateral hydronephrosis with hyperdense debris in the right renal pelvis. 7. Asymmetrically enlarged heterogeneous right lobe of the thyroid, nonspecific. In the absence of significant comorbidities and in the setting of a normal life expectancy, correlation with a nonemergent thyroid ultrasound is recommended. VTE: negative Assessment and Plan (1) COVID-19: Status: Acute (2) CHF exacerbation: Status: Acute Plan Pt is a -year-old female with a PMH significant for?asthma, chronic AFib, COPD, CHF, [id number] diabetes, HTN, HLD, and s/p discharge from here yesterday for ORION d/t obstructive uropathy s/p bilateral stent placement and CHF exacerbation who presents to the ED with?increasing SOB. Pt will be admitted to the hospital for treatment further evaluation of CHF and hypoxic respiratory failure in setting of COVID infection. Acute respiratory failure in the setting of COVID infection Patient descending to 86% on RA with movement Hold home prednisone, Decadron 6 mg qd, day 1 Continue home inhalers Nasal cannula titrate to O2>90, wean as tolerated Acute HFpEF exacerbation Likely secondary to COVID infection Patient with +1 pitting edema bilaterally, elevated BNP of 867, orthopnea, CTA showing bilateral pleural effusions Furosemide 40 mg IV b.i.d. Monitor lytes, mg, I/O Daily weights, cardiac diet Last echo on 12/22/2022, showed normal LV systolic function with moderately dilated left atrium Diarrhea Patient has been experiencing nonfoul-smelling diarrhea since last night Patient was on abx while last hospitalized Check C diff panel Elevated troponins Troponin elevated at 100.6 with repeat flat at 112.3 Likely type 2 in setting of demand ischemia Patient without chest pain/pressure, EKG without evidence of ST elevations or depressions Repeat 3rd troponin S/P bilateral stent placement d/t obstructive uropathy Patient's CT of abdomen pelvis showed improvement in bilateral hydronephrosis with renal stents, with small amount of clot within the upper right collecting system Creatinine 0.90 Urology consult Rru-bermcph-[id number] diabetes SSI Anxiety Continue Ativan p.r.n. Permanent AFib Continue carvedilol, diltiazem, Eliquis Asthma Continue home inhalers Hold prednisone while on Decadron Morbid obesity Weight loss encouraged Full Code Attending:?Dr. Abraham DVT Prophylaxis: On Eliquis Pt will require a hospitalization of at least two nights for treatment of?CHF and hypoxic respiratory failure in setting of COVID infection with IV diuretics and antivirals. Time Spent With Patient Time: Total time managing care of this patient today ____ minutes. Quality Stroke Does the patient have a stroke diagnosis?: No VTE Prior VTE?: No VTE Risk Level:: Medical - moderate - high VTE Device Contraindication: Treatment Not Indicated VTE Drug Contraindication: N/A - Med Ordered
[2022-12-25] MEDS: Enoxaparin Sodium 40 MG/0.4 ML SYRINGE SUBCUT (21:33)
[2022-12-25] MEDS: dexAMETHasone sod phosphate 4 MG/ML VIAL 6 MG IVPUSH (21:35)
[2022-12-25 21:40] LABS: Lactic Acid 1.1 mmol/L (0.5-2.0)
--- NOTE | 2022-12-25 21:59 | PC.NURSE ---
Addendum entered by Nancy Lanza 12/25/22 22:00: Dr Abraham notified via [facility] Original Note: Colleen from lab with critical results 127.8 troponin
[2022-12-25 22:01] LABS: Troponin-I High Sensitivity 127.8 ng/L (<3.5-17.0)
--- NOTE | 2022-12-25 22:06 | PC.NURSE ---
POC to follow; tech notified
[2022-12-25] MEDS: carvediloL 3.125 MG TABLET PO (22:09)
[2022-12-25] MEDS: Docusate Sodium 100 MG CAPSULE PO (22:09)
[2022-12-25] MEDS: Famotidine 20 MG TABLET PO (22:10)
[2022-12-25 22:11] VITALS: BP 168/94; PULSE 106; RESP 33; TEMP 37.1; O2SAT 99
--- NOTE | 2022-12-25 22:13 | PC.NURSE ---
vs assessed, pt remains on 2L and sats at 99%, slightly tachy at 106, RR 33,HR wnl at 91
[2022-12-25 22:18] VITALS: BP 178/88; PULSE 99; RESP 35; TEMP 37.1; O2SAT 100
[2022-12-25 22:23] LABS: Glucose, Whole Blood 158 mg/dL (60-115)
[2022-12-25] MEDS: Insulin Lispro 100 UNIT/ML 3 ML VIAL SUBCUT (22:28)
[2022-12-26] MEDS: 0.9 % Sodium Chloride Flush 3 ML SYRINGE IVFLUSH ×4 (00:14→23:48)
--- NOTE | 2022-12-26 04:06 | PC.NURSE ---
med rec reviewed- done by pharm
[2022-12-26 04:55] VITALS: BP 159/78; PULSE 92; RESP 31; TEMP 37.1; O2SAT 94
[2022-12-26 06:03] LABS: MANUAL DIFF FLAG NO
[2022-12-26 06:06] LABS: Basophils Percent Auto 0.3 % (0-2); Hematocrit 37.5 % (37.0-47.0); Hemoglobin 11.8 g/dl (12.0-16.0); Imm Gran Abs Auto 0.01 X10*3/uL (0.00-0.03); Imm Gran Pct Auto 0.3 % (0.0-0.4); Lymphocytes Absolute Auto 0.6 X10*3/uL (1.2-4.9); Lymphocytes Percent Auto 14.1 % (20-40); Mean Corpuscular HGB Conc 31.5 g/dl (31.0-35.0); Mean Corpuscular Hemoglobin 27.3 pg (27.0-33.0); Mean Corpuscular Volume 86.8 fL (80.0-98.0); Mean Platelet Volume 9.8 fL (9.4-12.3); Monocytes Absolute Auto 0.4 X10*3/uL (0.1-1.2); Monocytes Percent Auto 9.8 % (2-11); Neutrophils Percent Auto 75.5 % (45-73); Platelet Count 271 X10*3/uL (160-400); Red Blood Count 4.32 X10*6/uL (4.20-5.50); Red Cell Distribution Width 12.6 % (11.0-16.0)
[2022-12-26 06:18] LABS: Anion Gap 19 (12-20); Blood Urea Nitrogen 23 mg/dL (9-16); Calcium 8.9 mg/dL (8.4-10.2); Carbon Dioxide 23 mmol/L (22-29); Chloride 105 mmol/L (96-108); Creatinine Clr Calc Pharmacy 51.1; Estimated Glomerular Filt Rate 57; Glucose Random 209 mg/dL (60-115); Potassium 4.3 mmol/L (3.3-5.1); Sodium 143 mmol/L (135-145)
--- NOTE | 2022-12-26 06:40 | PC.NURSE ---
asked Dr Abraham if to order troponin via [facility] per hospitalist he will order troponin lab
[2022-12-26 06:48] LABS: Glucose, Whole Blood 219 mg/dL (60-115)
[2022-12-26] MEDS: traMADoL HCL 50 MG TABLET PO ×2 (07:07→23:45)
[2022-12-26] MEDS: Insulin Lispro 100 UNIT/ML 3 ML VIAL SUBCUT ×4 (07:14→20:16)
--- NOTE | 2022-12-26 07:16 | PC.NURSE ---
bilat leg pain pain level 6 tramadol po per JAN PRN administered
--- NOTE | 2022-12-26 07:16 | PC.NURSE ---
linenes changed and pt cleaned and repositioned by this nurse
--- NOTE | 2022-12-26 07:24 | PC.NURSE ---
Patient resting comfortably no distress noted. Patient currently not on O2 doing well on room air. Remains on precautions for covid. Will CTM
[2022-12-26 08:17] VITALS: BP 131/66; PULSE 93; RESP 22; O2SAT 93
[2022-12-26] MEDS: Furosemide 40 MG/4 ML VIAL IVPUSH ×2 (08:17→18:18)
[2022-12-26] MEDS: carvediloL 3.125 MG TABLET PO ×2 (08:18→23:45)
[2022-12-26] MEDS: dilTIAZem HCL CD 180 MG CAP.ER.24H PO (08:18)
[2022-12-26] MEDS: Atorvastatin Calcium 80 MG TABLET PO (08:18)
[2022-12-26] MEDS: Famotidine 20 MG TABLET PO ×2 (08:18→20:16)
[2022-12-26] MEDS: polyethylene glycoL 3350 17 GM POWD.PACK PO (08:18)
[2022-12-26] MEDS: dexAMETHasone sod phosphate 4 MG/ML VIAL 6 MG IVPUSH (08:18)
[2022-12-26] MEDS: Losartan Potassium 50 MG TABLET 100 MG PO (08:18)
[2022-12-26] MEDS: Docusate Sodium 100 MG CAPSULE PO ×2 (08:19→20:17)
[2022-12-26] MEDS: Aspirin Enteric Coated 81 MG TABLET.DR PO (08:19)
[2022-12-26] MEDS: Ferrous Sulfate 324 MG TABLET.DR PO (08:19)
--- NOTE | 2022-12-26 08:43 | MHC.CM.PN ---
Patient is covid (+); CM left a detailed message for Daughter/HCP/[place] @ [phone] addressing IMM with her (original to be mailed certified letter to [place] and a copy to be placed on the chart). Patient lives alone in an apartment and her Daughter is her GENERAL DENTIST/OWNER. Patient was just recently dc from [facility] [place] with a new referral to [facility] (it is unlikely that services ever began before Patient returned to the hospital). Home/resume said services is the goal and CM has initiated and will follow for dc planning. Patient has received [employer]/Covid vax x2 and her PCP/REGIONAL ADMINISTRATIVE ASSISTANT is Carolyn Ceballos.
[2022-12-26] MEDS: calcium polycarbophiL TABLET 1 TAB PO (08:51)
--- NOTE | 2022-12-26 11:30 | PC.NURSE ---
Report to Fernanda aquino RN
--- NOTE | 2022-12-26 11:52 | PC.NURSE ---
ASSUMED CARE OF PT AT 1200. RECEIVED REPORT FROM RAYSA MELISSA. [facility]
[2022-12-26 12:08] VITALS: BP 138/81; PULSE 88; RESP 17; TEMP 36.2; O2SAT 94
--- NOTE | 2022-12-26 12:30 | P.PNIM_ITS ---
Subjective Subjective Date of Service: 12/27/22 Interval History: f/u for covid, chf doing better Physical Exam Vital Signs: Vital Signs: Last Vital Signs Temp 97.1 F 12/26/22 12:08 Pulse 88 12/26/22 12:08 Resp 17 12/26/22 12:08 BP 138/81 12/26/22 12:08 Pulse Ox 94 12/26/22 12:08 O2 Del Method 12/26/22 12:08 O2 Flow Rate 2 12/25/22 22:11 Oxygen Flow Rate 2 12/25/22 15:06 BMI result Body Mass Index 36.6 Const: Other: General: AO X 3, no acute distress Resp: CTA bilateral CVS: S1,S2,RRR GI: +BS, NT, no distention Skin: No rash Neuro: motor grossly intact Psych: appropriate affect Objective Data Active Medications Acetaminophen (Acetaminophen 325 Mg Tablet) 650 mg PO Q6H PRN PRN Reason: Pain, Mild (Pain Scale 1-3) Albuterol Sulfate (Albuterol Sulfate (0.083%) 2.5 Mg/3 Ml Vial.Neb) 2.5 mg INHALE QID PRN PRN Reason: Wheezing Albuterol Sulfate (Albuterol Sulfate 90 Mcg 8 Gm Inhaler) 2 puff INHALE Q4H PRN PRN Reason: Wheezing Aspirin (Aspirin Enteric Coated 81 Mg Tablet.) 81 mg PO DAILY [facility] Last Admin: 12/26/22 08:19 Dose: 81 mg Documented By: CURLY Atorvastatin Calcium (Atorvastatin Calcium 80 Mg Tablet) 80 mg PO DAILY [facility] Last Admin: 12/26/22 08:18 Dose: 80 mg Documented By: CURLY Calcium Polycarbophil (Calcium Polycarbophil Tablet) 1 tab PO DAILY [facility] Last Admin: 12/26/22 08:51 Dose: 1 tab Documented By: CURLY Carvedilol (Carvedilol 3.125 Mg Tablet) 3.125 mg PO BID [facility]; Protocol Last Admin: 12/26/22 08:18 Dose: 3.125 mg Documented By: CURLY Dexamethasone Sodium Phosphate (Dexamethasone Sod Phosphate 4 Mg/Ml Vial) 6 mg IVPUSH DAILY [facility] Last Admin: 12/26/22 08:18 Dose: 6 mg Documented By: CURLY Dextrose (Dextrose 50 % 25 Gm/50 Ml Syringe) 25 gm IVPUSH Q15M PRN; Protocol PRN Reason: per Hypoglycemia Standing Ord. Diltiazem HCl (Diltiazem Hcl Cd 180 Mg Cap.Er.24h) 180 mg PO DAILY [facility]; Protocol Last Admin: 12/26/22 08:18 Dose: 180 mg Documented By: CURLY Docusate Sodium (Docusate Sodium 100 Mg Capsule) 100 mg PO BID [facility] Last Admin: 12/26/22 08:19 Dose: 100 mg Documented By: CURLY Enoxaparin Sodium (Enoxaparin Sodium 40 Mg/0.4 Ml Syringe) 40 mg SUBCUT Q24H [facility] Last Admin: 12/25/22 21:33 Dose: 40 mg Documented By: MARIA ISABEL Famotidine (Famotidine 20 Mg Tablet) 20 mg PO BID [facility] Last Admin: 12/26/22 08:18 Dose: 20 mg Documented By: CURLY Ferrous Sulfate (Ferrous Sulfate 324 Mg Tablet.Dr) 324 mg PO Q48H [facility] Last Admin: 12/26/22 08:19 Dose: 324 mg Documented By: CURLY Fluticasone Propionate (Fluticasone Propionate Nasal 16 Gm Irrigon) 2 spray N OSTRIL-B DAILY [facility] Fluticasone/Vilanterol (Fluticasone/Vilanterol 100/25 Blst.W.Dev) 1 puff INHALE RDAILY [facility] Last Admin: 12/26/22 07:36 Dose: Not Given Documented By: ANUPAM Non-Admin Reason: Med Not Available Furosemide (Furosemide 40 Mg/4 Ml Vial) 40 mg IVPUSH BID@0900,1800 [facility]; Protocol Last Admin: 12/26/22 08:17 Dose: 40 mg Documented By: CURLY Glucose (Glucose Gel 15 Gm Gel..Gram.) 15 gm PO Q15M PRN; Protocol PRN Reason: per Hypoglycemia Standing Ord. Insulin Human Lispro (Insulin Lispro 100 Unit/Ml 3 Ml Vial) 0 unit SUBCUT QIDACHS [facility]; Protocol Last Admin: 12/26/22 07:14 Dose: 4 unit Losartan Potassium (Losartan Potassium 50 Mg Tablet) 100 mg PO DAILY [facility]; Protocol Last Admin: 12/26/22 08:18 Dose: 100 mg Documented By: CURLY Melatonin (Melatonin 3 Mg Tablet) 6 mg PO BEDTIME PRN PRN Reason: Insomnia Ondansetron HCl (Ondansetron Hcl 4 Mg/2 Ml Vial) 4 mg IVPUSH Q8H PRN PRN Reason: Nausea and Vomiting Pharmacy Consult (Consult Rx Perform Med Rec) 1 each MISCELLANE ONCE PRN PRN Reason: Consult order Polyethylene Glycol (Polyethylene Glycol 3350 17 Gm Powd.Pack) 17 gm PO DAILY [facility] Last Admin: 12/26/22 08:18 Dose: 17 gm Documented By: CURLY Senna (Sennosides 8.6 Mg Tablet) 8.6 mg PO BID PRN PRN Reason: constipation Sodium Chloride (0.9 % Sodium Chloride Flush 3 Ml Syringe) 3 ml IVFLUSH QSHIFT [facility] Last Admin: 12/26/22 08:20 Dose: 3 ml Documented By: CURLY Tramadol HCl (Tramadol Hcl 50 Mg Tablet) 50 mg PO TID PRN PRN Reason: Pain, Moderate (Pain Scale 4-6 Last Admin: 12/26/22 07:07 Dose: 50 mg Documented By: MINESHUCV Labs 12/26/22 05:43 12/26/22 05:43 Labs: Laboratory Results - last 24 hr 12/25/22 12/25/22 12/25/22 13:33 13:33 13:59 MCV 87.3 MCH 27.8 MCHC 31.8 RDW 12.7 Plt Count 258 MPV 9.9 Immature Gran % (Auto) 0.7 H Neut % (Auto) 84.1 H Lymph % (Auto) 6.6 L Nolan % (Auto) 8.1 Eos % (Auto) 0.2 Baso % (Auto) 0.3 Lymph # (Auto) 0.4 L Nolan # (Auto) 0.5 Eos # (Auto) 0.0 Baso # (Auto) 0.0 Abs Immat Gran (auto) 0.04 H Absolute Neuts (auto) 5.0 Absolute Nucleated RBC 0.000 Nucleated RBC % (auto) 0.0 PT INR Anion Gap Estim Creat Clear Calc Estimated GFR POC Glucose Random Glucose Lactic Acid Calcium Magnesium Total Bilirubin Direct Bilirubin AST ALT Alkaline Phosphatase Troponin I High Sens B-Natriuretic Peptide Total Protein Albumin Lipase Urine Color Urine Appearance Urine pH Ur Specific Sunspot Urine Protein Urine Glucose (UA) Urine Ketones Urine Blood Urine Nitrite Ur Leukocyte Esterase Urine RBC Urine WBC Ur Squamous Epith Cells Urine Bacteria Hyaline Casts COVID-19 (MARQUISE) Positive A COVID-19 Clin Com See Note Influenza Type A (ESTEBAN) Negative Influenza Type B (ESTEBAN) Negative Influenza A & B Note See Note 12/25/22 12/25/22 12/25/22 13:59 13:59 13:59 MCV MCH MCHC RDW Plt Count MPV Immature Gran % (Auto) Neut % (Auto) Lymph % (Auto) Nolan % (Auto) Eos % (Auto) Baso % (Auto) Lymph # (Auto) Nolan # (Auto) Eos # (Auto) Baso # (Auto) Abs Immat Gran (auto) Absolute Neuts (auto) Absolute Nucleated RBC Nucleated RBC % (auto) PT 13.0 INR 1.1 Anion Gap 15 Estim Creat Clear Calc 53.9 Estimated GFR > 60 POC Glucose Random Glucose 255 H Lactic Acid Calcium 9.0 Magnesium 2.0 Total Bilirubin 0.5 Direct Bilirubin 0.2 AST 37 H ALT 28 Alkaline Phosphatase 93 Troponin I High Sens 100.6 H* B-Natriuretic Peptide Total Protein 7.2 Albumin 4.2 Lipase 24 Urine Color Urine Appearance Urine pH Ur Specific Sunspot Urine Protein Urine Glucose (UA) Urine Ketones Urine Blood Urine Nitrite Ur Leukocyte Esterase Urine RBC Urine WBC Ur Squamous Epith Cells Urine Bacteria Hyaline Casts COVID-19 (MARQUISE) COVID-19 Clin Com Influenza Type A (ESTEBAN) Influenza Type B (ESTEBAN) Influenza A & B Note 12/25/22 12/25/22 12/25/22 13:59 15:56 16:57 MCV MCH MCHC RDW Plt Count MPV Immature Gran % (Auto) Neut % (Auto) Lymph % (Auto) Nolan % (Auto) Eos % (Auto) Baso % (Auto) Lymph # (Auto) Nolan # (Auto) Eos # (Auto) Baso # (Auto) Abs Immat Gran (auto) Absolute Neuts (auto) Absolute Nucleated RBC Nucleated RBC % (auto) PT INR Anion Gap Estim Creat Clear Calc Estimated GFR POC Glucose Random Glucose Lactic Acid Calcium Magnesium Total Bilirubin Direct Bilirubin AST ALT Alkaline Phosphatase Troponin I High Sens 112.3 H* B-Natriuretic Peptide 867 H Total Protein Albumin Lipase Urine Color RED Urine Appearance Cloudy Urine pH 6.0 Ur Specific Sunspot 1.010 Urine Protein 30 (1+) H Urine Glucose (UA) Negative Urine Ketones Negative Urine Blood Large (3+) H Urine Nitrite Negative Ur Leukocyte Esterase Trace H Urine RBC >20 H Urine WBC 0-5 Ur Squamous Epith Cells 0-2 Urine Bacteria None Seen Hyaline Casts 0-2 COVID-19 (MARQUISE) COVID-19 Clin Com Influenza Type A (ESTEBAN) Influenza Type B (ESTEBAN) Influenza A & B Note 12/25/22 12/25/22 12/25/22 21:23 21:23 22:17 MCV MCH MCHC RDW Plt Count MPV Immature Gran % (Auto) Neut % (Auto) Lymph % (Auto) Nolan % (Auto) Eos % (Auto) Baso % (Auto) Lymph # (Auto) Nolan # (Auto) Eos # (Auto) Baso # (Auto) Abs Immat Gran (auto) Absolute Neuts (auto) Absolute Nucleated RBC Nucleated RBC % (auto) PT INR Anion Gap Estim Creat Clear Calc Estimated GFR POC Glucose 158 H Random Glucose Lactic Acid 1.1 Calcium Magnesium Total Bilirubin Direct Bilirubin AST ALT Alkaline Phosphatase Troponin I High Sens 127.8 H* B-Natriuretic Peptide Total Protein Albumin Lipase Urine Color Urine Appearance Urine pH Ur Specific Sunspot Urine Protein Urine Glucose (UA) Urine Ketones Urine Blood Urine Nitrite Ur Leukocyte Esterase Urine RBC Urine WBC Ur Squamous Epith Cells Urine Bacteria Hyaline Casts COVID-19 (MARQUISE) COVID-19 Clin Com Influenza Type A (ESTEBAN) Influenza Type B (ESTEBAN) Influenza A & B Note 12/26/22 12/26/22 12/26/22 05:43 05:43 06:44 MCV 86.8 MCH 27.3 MCHC 31.5 RDW 12.6 Plt Count 271 MPV 9.8 Immature Gran % (Auto) 0.3 Neut % (Auto) 75.5 H Lymph % (Auto) 14.1 L Nolan % (Auto) 9.8 Eos % (Auto) 0.0 Baso % (Auto) 0.3 Lymph # (Auto) 0.6 L Nolan # (Auto) 0.4 Eos # (Auto) 0.0 Baso # (Auto) 0.0 Abs Immat Gran (auto) 0.01 Absolute Neuts (auto) 3.0 Absolute Nucleated RBC 0.000 Nucleated RBC % (auto) 0.0 PT INR Anion Gap 19 Estim Creat Clear Calc 51.1 Estimated GFR 57 POC Glucose 219 H Random Glucose 209 H Lactic Acid Calcium 8.9 Magnesium Total Bilirubin Direct Bilirubin AST ALT Alkaline Phosphatase Troponin I High Sens B-Natriuretic Peptide Total Protein Albumin Lipase Urine Color Urine Appearance Urine pH Ur Specific Sunspot Urine Protein Urine Glucose (UA) Urine Ketones Urine Blood Urine Nitrite Ur Leukocyte Esterase Urine RBC Urine WBC Ur Squamous Epith Cells Urine Bacteria Hyaline Casts COVID-19 (MARQUISE) COVID-19 Clin Com Influenza Type A (ESTEBAN) Influenza Type B (ESTEBAN) Influenza A & B Note 12/26/22 06:58 MCV MCH MCHC RDW Plt Count MPV Immature Gran % (Auto) Neut % (Auto) Lymph % (Auto) Nolan % (Auto) Eos % (Auto) Baso % (Auto) Lymph # (Auto) Nolan # (Auto) Eos # (Auto) Baso # (Auto) Abs Immat Gran (auto) Absolute Neuts (auto) Absolute Nucleated RBC Nucleated RBC % (auto) PT INR Anion Gap Estim Creat Clear Calc Estimated GFR POC Glucose Random Glucose Lactic Acid Calcium Magnesium Total Bilirubin Direct Bilirubin AST ALT Alkaline Phosphatase Troponin I High Sens 89.0 H* B-Natriuretic Peptide Total Protein Albumin Lipase Urine Color Urine Appearance Urine pH Ur Specific Sunspot Urine Protein Urine Glucose (UA) Urine Ketones Urine Blood Urine Nitrite Ur Leukocyte Esterase Urine RBC Urine WBC Ur Squamous Epith Cells Urine Bacteria Hyaline Casts COVID-19 (MARQUISE) COVID-19 Clin Com Influenza Type A (ESTEBAN) Influenza Type B (ESTEBAN) Influenza A & B Note Assessment and Plan (1) COVID-19: Status: Acute (2) CHF (congestive heart failure): Status: Acute Plan Pt is a -77 year-old female with a PMH significant for?asthma, chronic AFib, COPD, CHF, lqc-mcvpbiy-hqbgqwrng diabetes, HTN, HLD, and s/p discharge from here yesterday for ORION d/t obstructive uropathy s/p bilateral stent placement and CHF exacerbation who presents to the ED with?increasing SOB. Pt will be admitted to the hospital for treatment further evaluation of CHF and hypoxic respiratory failure in setting of COVID infection. Acute respiratory failure in the setting of COVID infection and CHF Treat underlying issues Covid 19 with hypoxia, Decadron D2 wean off O2 Acute HFpEF exacerbation IV lasix , monitor electrolytes, I/O, weight Diarrhea--improved, could be related to covid Elevated troponins--flat likely related to acute illness S/P bilateral recent stent placement d/t obstructive uropathy, Cr normal Xvg-aybrpts-nvwolnbye diabetes SSI Anxiety Continue Ativan p.r.n. Permanent AFib Continue carvedilol, diltiazem, Eliquis Asthma Continue home inhalers Decadron as above Morbid obesity Weight loss encouraged Full Code DVT Prophylaxis: On Eliquis Need for inpatient: covid, chf, hypoxia Time Spent With Patient Time: Total time managing care of this patient today ____ minutes. Quality Stroke Does the patient have a stroke diagnosis?: No VTE Prior VTE?: No VTE Risk Level:: Medical - moderate - high VTE Device Contraindication: Treatment Not Indicated VTE Drug Contraindication: N/A - Med Ordered
[2022-12-26 13:21] LABS: Glucose, Whole Blood 221 mg/dL (60-115)
[2022-12-26 16:25] LABS: Glucose, Whole Blood 243 mg/dL (60-115)
[2022-12-26 16:32] VITALS: BP 133/90; PULSE 88; RESP 18; TEMP 36.9; O2SAT 94
--- NOTE | 2022-12-26 16:43 | PC.NURSE ---
PT REMAINS ON COVID PRECAUTIONS. DAUGHTER VISITED, APPROPRIATE PPE USED DURING VISIT. VSS, O2 sat 94-95% r/a. PT RESTING QUIETLY, NO APPARENT DISTRESS. MEDS GIVEN DOCUMENTED. INCONTINENT CARE AND COMPLETE BED CHANGE DONE. BEDSIDE COMMODE AT BEDSIDE.
[2022-12-26] MEDS: Enoxaparin Sodium 40 MG/0.4 ML SYRINGE SUBCUT (19:42)
[2022-12-26 19:47] VITALS: BP 130/86; PULSE 88; RESP 18; O2SAT 94
[2022-12-26 20:17] LABS: Glucose, Whole Blood 259 mg/dL (60-115)
--- NOTE | 2022-12-26 20:21 | PC.NURSE ---
This display card writer assumed care of this PT at 1900. PT A&O to self and situation. PT denies any CP, SOB or palpitations. PT reports pain to touch to BLL, no swelling noted. VSS. Meds given as documented. Urine noted to be red in color.
--- NOTE | 2022-12-26 20:35 | PC.NURSE ---
RN to RN report given. Pt will be transported to room 478. Pt aware of plan.
[2022-12-26 21:45] VITALS: BP 154/82; PULSE 99; RESP 18; TEMP 36.8; O2SAT 95
[2022-12-26] MEDS: Melatonin 3 MG TABLET 6 MG PO (23:45)
[2022-12-27] VITALS: BP 123/65; PULSE 83; RESP 18; TEMP 36.6; O2SAT 95
[2022-12-27 02:08] VITALS: BMI 35.4
[2022-12-27 03:49] VITALS: BP 156/77; PULSE 79; RESP 20; TEMP 36.4; O2SAT 95
--- NOTE | 2022-12-27 06:14 | PC.NURSE ---
PT ADMITTED TO [facility] [place] AT 2130 LAST NIGHT IN NO ACUTE DISTRESS. O2 SAT 95% ON ROOM AIR. LUNG SOUNDS DIM LLL. NO COUGH. INTERPRETTER UTILIZED TO COMPLETE ADMISSION ASSESSMENT. VITAL SIGNS STABLE. PT GIVEN SNACK OF TEA AND CRACKERS WHICH SHE TOOK WELL. ASSISTED OOB TO BATHROOM DURING THE NIGHT TO VOID. DOES WELL WITH ROLLING WALKER AND STAND BY ASSIST.
[2022-12-27 07:58] VITALS: BP 140/81; PULSE 85; RESP 18; TEMP 36.8; O2SAT 98
[2022-12-27 07:58] LABS: Glucose, Whole Blood 149 mg/dL (60-115)
[2022-12-27] MEDS: dexAMETHasone sod phosphate 4 MG/ML VIAL 6 MG IVPUSH (09:41)
[2022-12-27] MEDS: calcium polycarbophiL TABLET 1 TAB PO (09:42)
[2022-12-27] MEDS: Aspirin Enteric Coated 81 MG TABLET.DR PO (09:42)
[2022-12-27] MEDS: Losartan Potassium 50 MG TABLET 100 MG PO (09:42)
[2022-12-27] MEDS: Famotidine 20 MG TABLET PO (09:42)
[2022-12-27] MEDS: carvediloL 3.125 MG TABLET PO (09:43)
[2022-12-27] MEDS: Atorvastatin Calcium 80 MG TABLET PO (09:43)
[2022-12-27] MEDS: 0.9 % Sodium Chloride Flush 3 ML SYRINGE IVFLUSH (09:44)
[2022-12-27] MEDS: Docusate Sodium 100 MG CAPSULE PO (09:44)
[2022-12-27] MEDS: polyethylene glycoL 3350 17 GM POWD.PACK PO (09:44)
[2022-12-27] MEDS: dilTIAZem HCL CD 180 MG CAP.ER.24H PO (09:44)
[2022-12-27 11:21] LABS: Glucose, Whole Blood 176 mg/dL (60-115)
[2022-12-27] MEDS: Insulin Lispro 100 UNIT/ML 3 ML VIAL SUBCUT (11:47)
--- NOTE | 2022-12-27 11:51 | PM.DS ---
DS: Providers Provider Date of Service: 12/27/22 Date of admission: 12/25/22 19:29 Primary care physician: SANA Crespo Consults: 12/25/22 20:45 Consult to Urology Routine Consulting Provider: Larissa Liriano Reason for consultation: Return pt s/p bilateral stend placement for obstructive uropathy DS: Diagnosis Discharge Diagnosis (1) COVID-19: Status: Acute (2) CHF (congestive heart failure): Status: Acute DS: Summary Hospital Course Hospital Course: Chief Complaint: SOB Pt is a -year-old female with a PMH significant for?asthma, chronic AFib, COPD, CHF, agd-aohqkbe-tonfunque diabetes, HTN, HLD, and s/p discharge from here yesterday for ORION d/t obstructive uropathy s/p bilateral stent placement and CHF exacerbation who presents to the ED with?increasing SOB.? Patient is [place]-speaking only, assembly machine feeder services utilized.? Pt states she woke up this morning with increasing SOB and productive cough. She also notes she has been experiencing diarrhea many times since last night.? Patient denies diarrhea is foul-smelling.? Endorses orthopnea and some mild abdominal pain secondary to coughing.? Patient denies fever, chills, nausea, vomiting.? No headache, changes in vision, difficulty swallowing.? Patient has chronic edema, has not noticed any additional swelling in her legs. In the ED patient was tachypneic and desatting to 86% on room air when transferred. Labs were significant for WBC WNL, random glucose of 255, troponin 100.6 with repeat flat at 112.3, BNP 867 (up from 328 at time of last admission.? UA negative for UTI.? Patient is a positive COVID. CXR showed no acute cardiopulmonary process.? CTA showed no evidence of pulmonary embolism, but did show bilateral small pleural effusions with right greater than left, diffuse bronchial wall thickening with scattered mucus impaction mosaic attenuation, evidence of elevated right sided heart pressure, enlarged sub carinal lymph nodes, and asymmetrical enlarged heterogeneous right lobe of the thyroid. CT of the abdomen and pelvis showed improvement in bilateral hydronephrosis with placement of bilateral renal stents, with small amount of clot within the upper right collecting system. EKG demonstrated atrial fibrillation without evidence of ST elevations or depressions. Pt was treated with furosemide 40 mg IV. Pt will be admitted to the hospital for treatment further evaluation of CHF and hypoxic respiratory failure in setting of COVID infection. Hospital course: Patient had been in the hospital for obstructive uropathy causing renal failure, chf afib eith rvr. She underwent bilateral stent placement, chf and heart were under controll and she was discharged on 12/25 and return to ED same day with sob and found to have covid with hypoxia and possible heart failure. During this second hospitalization she was treated with decadron, lasix for chf and is doing better, hypoxia has resolved Presently O2 sat of 98 on room air, will discharge to finish a course of 7 day of decadron. As for chf was treated with IV Lasix and will continue to take oral lasix upon discharge, of note she was to start anticoagulation for afib but was on hold in light of recent procedure and will start eliquis upon discharge 5 mg twice daily now that renal funtion has returned to normal. To return to previously arranged [facility]NA Time Spent with Patient Time attestation: Total time managing care of this patient today ____ minutes. Discharge coordination time: Greater than 30 minutes Quality: Safe Use of Opioids Does Pt have an Active Cancer Diagnosis on the Problem List?: No Quality: Stroke Does the patient have a stroke diagnosis?: No Physical Exam Vital Signs: Vital Signs: Last Vital Signs Temp 98.2 F 12/27/22 07:58 Pulse 85 12/27/22 07:58 Resp 18 12/27/22 07:58 BP 140/81 H 12/27/22 07:58 Pulse Ox 98 12/27/22 07:58 O2 Del Method 12/27/22 07:58 O2 Flow Rate 2 12/25/22 22:11 Oxygen Flow Rate 2 12/25/22 15:06 BMI result Body Mass Index 35.4 DS: Data Data Completed and Pending Completed studies during hospitalization [Text1]: Procedures Dilation of Bilateral Ureters with Intraluminal Device, Via Natural or Artificial Opening Endoscopic (12/19/22) Fluoroscopy of Kidneys, Ureters and Bladder (12/19/22) Removal of Intraluminal Device from Bladder, Via Natural or Artificial Opening Endoscopic (12/19/22) Labs on day of discharge: Laboratory Results - last 24 hr 12/26/22 12/26/22 12/26/22 13:13 16:21 20:12 POC Glucose 221 H 243 H 259 H 12/27/22 12/27/22 07:42 11:12 POC Glucose 149 H 176 H Discharge Plan Discharge Anticipated Discharge Date/Time: 12/27/22 11:53 Patient Disposition: Home Health Service Discharge Diagnosis: Covid 19 with hypoxia, CHF Referrals: Carolyn Ceballos, F[employer]ER [Primary Care Provider] - 1 Week Discharge Medications: New dexamethasone 6 mg tablet 6 mg PO DAILY Qty: 4 0RF Eliquis 5 mg tablet 5 mg PO BID Qty: 60 0RF Continued simethicone [Gas Relief Extra Strength] 125 mg capsule 125 mg PO TID-QID PRN (Reason: Indigestion) Qty: 120 3RF fluticasone propion-salmeterol [Advair Diskus] 250-50 mcg/dose blister with device 1 puff INHALATION BID sennosides [senna] 8.6 mg tablet 1 tab PO BID PRN (Reason: constipation) albuterol sulfate 2.5 mg /3 mL (0.083 %) solution for nebulization 1 amp inhalation QID PRN (Reason: Wheezing) (DME) blood-glucose meter [GuideWall Verio Flex meter] [facility] MISCELLANEOUS DIRECTED diltiazem HCl [Cartia XT] 180 mg capsule,extended release 24hr 1 cap PO DAILY alendronate 70 mg tablet 1 tab PO REESE (DME) GuideWall Verio test strips Strip MISCELLANEOUS BID tramadol 50 mg tablet 1 tab PO TID PRN (Reason: pain) furosemide 80 mg tablet 1 tab PO BIDWM ferrous sulfate [FeroSul] 325 mg (65 mg iron) tablet 1 tab PO Q OTHER DAY Fiber Laxative (methylcellulo) 500 mg tablet 1 tab PO DAILY fluticasone propionate 50 mcg/actuation spray,suspension 2 spray intranasal DAILY (DME) lancets [[employer]Touch Delica Plus Lancet] 33 gauge misc MISCELLANEOUS BID triamcinolone acetonide 0.1 % cream 1 appl topical BID polyethylene glycol 3350 [Miralax] 17 gram/dose powder 17 g PO DAILY Qty: 510 3RF famotidine 20 mg tablet 20 mg PO BID Qty: 180 2RF docusate sodium 100 mg capsule 100 mg PO BID Qty: 180 3RF losartan 100 mg tablet 100 mg PO DAILY carvedilol 3.125 mg tablet 3.125 mg PO BID metformin 850 mg tablet 850 mg PO BIDWM atorvastatin 80 mg tablet 80 mg PO DAILY albuterol sulfate [Ventolin HFA] 90 mcg/actuation HFA aerosol inhaler 2 puff inhalation Q4-6H PRN (Reason: Wheezing) Discontinued aspirin 81 mg tablet,delayed release (DR/EC) 1 tab PO DAILY prednisone 20 mg tablet 20 mg PO DAILY Qty: 4 0RF Discharge Orders: Discharge Order (Routine); Ordered 12/27/22 Ordered By: Alan Braga Diet: Low salt diet Activity on Discharge: As tolerated Stand Alone Forms: Patient Portal Discharge page Care Plan Goals: Full recovery from COVID-19 and heart failure Health Concerns: COVID-19 Heart failure Recent kidney stone surgery Plan of Treatment: Take Decadron as recommended for COVID Take Lasix for heart failure Follow-up with your primary care provider within a week, call for appointment Follow-up with Urology as previously arranged Assessment: as above
--- NOTE | 2022-12-27 12:15 | MHC.CM.PN ---
order for home, with home health care. Notified previous agency that she is D/Cing home today (referral pre-existing already in [employer]). CM acknowledge.
[2022-12-27 13:35] VITALS: BP 131/69; PULSE 73; RESP 16; TEMP 36.2; O2SAT 94
--- NOTE | 2022-12-27 14:42 | PC.NURSE ---
at 1430 pt was up and talking normally. pt reported she was feeling dizziness around 1300 when transferring from recliner to the bed. pt then not sure she felt asleep or actually fainted because she did not remember. pt did not notfied right a way. Assess vital signs at 1335 Temp 97.1, HR 73, RR 16, BP 131/69, O2 94%. pt was admitted as S3 pt and there was no tele monitor. MD Dr Braga notified.
--- NOTE | 2022-12-27 15:39 | MHC.CM.PN ---
Messaged MD RE this patient's D/C. Nurse noted potential change in patient and notified MD. MD had documented D/C; inquired if D/C to home still stands for today, pending response. CM to follow.
== END 2022-12-27 15:50 | disposition home health service (06) | DRG 177 ==
LOC: HO.ED 17:29 → HO.EDOVER 19:33 → HO.IMC 12-26 19:30
PROVIDERS: Physician Assistant; Student in an Organized Health Care Education/Training Program; Admitting Provider Student in an Organized Health Care Education/Training Program; Emergency Provider Emergency Medicine; PCP Registered Nurse; Visit Provider Internal Medicine
DX: U07.1 COVID-19 (principal); I50.33 Acute on chronic diastolic (congestive) heart failure; J96.01 Acute respiratory failure with hypoxia; I24.8 Other forms of acute ischemic heart disease; I48.21 Permanent atrial fibrillation; I11.0 Hypertensive heart disease with heart failure; J45.909 Unspecified asthma, uncomplicated; E66.01 Morbid (severe) obesity due to excess calories; Z68.35 Body mass index [BMI] 35.0-35.9, adult; E11.9 Type 2 diabetes mellitus without complications; Z88.8 Allergy status to other drugs, medicaments and biological substances; Z79.51 Long term (current) use of inhaled steroids; Z79.84 Long term (current) use of oral hypoglycemic drugs; Z79.899 Other long term (current) drug therapy
CPT/HCPCS: 36415; 71045; 71275; 74176; 80048; 80076; 81001; 82947; 83605; 83690; 83735; 83880; 84484; 85025; 85610; 87502; 87635; 93005; 99285; J1100; J1650; J1940; Q9967

== ENCOUNTER 2023-01-02 13:32 | Emergency (ER) | payer OTHER, SELFPAY ==
--- NOTE | ~2023-01-02 | CT_ITS ---
EXAMINATION: CT ABDOMEN AND PELVIS WITHOUT CONTRAST CLINICAL INFORMATION: Abdominal pain COMPARISON: CT abdomen pelvis 12/25/2022 TECHNIQUE: Multidetector volumetric imaging was performed from the superior aspect of the liver through the pubic symphysis. Sagittal and coronal reformatted images were obtained on the technologist's workstation. This CT examination was performed using dose optimization techniques as appropriate, variously including the following: *Automated exposure control *Adjustment of mA and/or kV according to patient size (this includes techniques or standardized protocols for targeted exams where dose is matched to indication/reason for exam; i.e. extremities or head) *Use of iterative reconstruction technique DLP: 741 mGy-cm FINDINGS: LUNG BASES: Previously seen small/trace effusions have resolved. Mild subsegmental atelectasis in the lingula and right middle lobe. Fat-containing right-sided Bochdalek hernia. LAD coronary artery vascular calcifications. LIVER, GALLBLADDER, AND BILIARY TREE: The liver is normal in size, shape, and attenuation. No focal hepatic lesion or biliary ductal dilatation is present. The gallbladder is unremarkable with no evidence of radiopaque gallstones, gallbladder wall thickening, or obvious pericholecystic inflammatory changes. PANCREAS: Unremarkable. SPLEEN: Unremarkable. ADRENAL GLANDS: Unremarkable. KIDNEYS AND URETERS: Approximately 9.2 cm exophytic left renal cyst with some septal calcification, Bosniak category-2. 7 mm calculus in the left renal pelvis and 6 mm nonobstructing left lower pole renal calculus. No hydronephrosis. Double-J ureteral stents in appropriate position. Mild symmetric perirenal fascial stranding. Previously seen high-density material/hemorrhage within the right renal pelvis has resolved. BLADDER: Unremarkable. GASTROINTESTINAL TRACT: No dilated bowel loops. No bowel wall thickening. Sigmoid diverticulosis. No evidence of acute diverticulitis. Normal appendix. No free air. ABDOMINAL WALL: No significant abdominal wall hernia. LYMPH NODES: No lymphadenopathy. VASCULAR: Normal caliber abdominal aorta. Mild vascular calcifications. PELVIC VISCERA: Status post hysterectomy. Trace free pelvic fluid. OSSEOUS STRUCTURES: No acute fracture or suspicious osseous lesion. Multilevel degenerative disc disease. Minimal grade 1 anterolisthesis at L5-S1. Multilevel lumbar facet arthrosis. CT/CT abdomen pelvis wo IV con IMPRESSION: 1. No acute intra-abdominal process identified. 2. 7 mm calculus in the left renal pelvis and 6 mm nonobstructing left lower pole renal calculus. 3. Double-J ureteral stents in appropriate position. No hydronephrosis. 4. Previously seen high-density material/hemorrhage within the right renal pelvis has resolved. 5. Trace free pelvic fluid. 6. Sigmoid diverticulosis. No evidence of acute diverticulitis.
[2023-01-02 13:36] VITALS: BP 137/73; PULSE 72; RESP 18; TEMP 36.8; O2SAT 97; BMI 35.1
--- NOTE | 2023-01-02 13:38 | ED.GENADULT ---
HPI - General Adult General Chief complaint: Urogenital-Female <CLAIRE Jerry - Last Filed: 01/02/23 13:39> Stated complaint: uti symptoms <CLAIRE Jerry - Last Filed: 01/02/23 13:39> Time Seen by Provider: 01/02/23 14:19 <CLAIRE Jerry - Last Filed: 01/02/23 13:39> Source: patient and RN notes reviewed <CLAIRE Oreilly - Last Filed: 01/02/23 18:14> Mode of arrival: ambulatory <CLAIRE Oreilly - Last Filed: 01/02/23 18:14> Limitations: no limitations <CLAIRE Oreilly Last Filed: 01/02/23 18:14> History of Present Illness HPI narrative: Upon extensive review of past medical history patient has been admitted to [facility] [place] on 12/19/2022-12/24/2022 due to ORION secondary to obstructive uropathy status post bilateral stent placement(on 12/22/2022) and respiratory distress secondary to CHF. Creatinine improved during her hospital stay and was followed by Nephrology with good stent placement and respiratory distress improved with treatment of CHF exacerbation. Patient then returned on 12/25/2022 with increasing shortness breath, and was admitted until 12/27/2022 for further treatment and management of CHF and hypoxic respiratory failure in COVID 19 infection. During this 2nd hospitalization she was treated with Decadron, Lasix in her hypoxia resolved. She was discharged on a course Decadron as well as oral Lasix. This is a [id number]-speaking female, with a significant past medical history of obstructive uropathy status post bilateral stent placement on 01/19/2023, asthma, chronic AFib with RVR on Eliquis, COPD, CHF, non insulin dependent diabetes, hypertension, hyperlipidemia, presenting to the emergency department with complaints of 2 day history of hyperglycemia and dysuria, and abdominal pain which started this morning. Patient reports that her abdominal pain is diffuse, but has focal tenderness in her right lower quadrant. She denies any fevers, chills, vomiting or diarrhea. <CLAIRE Oreilly Last Filed: 01/02/23 18:14> MD complaint: Abdominal pain, dysuria, hyperglycemia <CLAIRE Oreilly Last Filed: 01/02/23 18:14> Onset (ago): day(s) <CLAIRE Oreilly - Last Filed: 01/02/23 18:14> Location: abdomen <CLAIRE Oreilly - Last Filed: 01/02/23 18:14> Radiation: non-radiation <CLAIRE Oreilly - Last Filed: 01/02/23 18:14> Severity: moderate <CLAIRE Oreilly - Last Filed: 01/02/23 18:14> Quality: burning and aching <CLAIRE Oreilly - Last Filed: 01/02/23 18:14> Pain Consistency: constant <CLAIRE Oreilly - Last Filed: 01/02/23 18:14> Relieving factors: none <CLAIRE Oreilly - Last Filed: 01/02/23 18:14> Exacerbating factors: none <CLAIRE Oreilly - Last Filed: 01/02/23 18:14> Associated symptoms: denies other symptoms <CLAIRE Oreilly - Last Filed: 01/02/23 18:14> Treatments prior to arrival: none <CLAIRE Oreilly - Last Filed: 01/02/23 18:14> Related Data Home medications: Home Medications Medication Instructions Recorded Confirmed albuterol sulfate 2.5 mg/3 mL 1 amp inhalation QID PRN Wheezing 09/06/22 12/25/22 (0.083 %) solution for nebulization alendronate 70 mg tablet 1 tab PO REESE 09/06/22 12/25/22 blood sugar diagnostic (OneTouch 09/06/22 10/23/22 Verio test strips) blood-glucose meter (OneTouch 09/06/22 10/23/22 Verio Flex Meter) diltiazem HCl 180 mg 1 cap PO DAILY 09/06/22 12/25/22 capsule,extended release 24 hr (Cartia XT) ferrous sulfate 325 mg (65 mg 1 tab PO Q OTHER DAY 09/06/22 12/25/22 iron) tablet (FeroSul) fluticasone 250 mcg-salmeterol 50 1 puff inhalation BID 10/29/22 02/16/23 mcg/dose blistr powdr for inhalation (Advair Diskus) fluticasone propionate 50 2 spray intranasal DAILY 09/06/22 12/25/22 mcg/actuation nasal spray,suspension furosemide 80 mg tablet 1 tab PO BIDWM 09/06/22 12/25/22 lancets 33 gauge (OneTouch Delica 09/06/22 10/23/22 Plus Lancet) methylcellulose (laxative) 500 mg 1 tab PO DAILY 09/06/22 12/25/22 tablet (Fiber Laxative (methylcellulose)) sennosides 8.6 mg tablet (senna) 1 tab PO BID PRN constipation 09/06/22 12/25/22 tramadol 50 mg tablet 1 tab PO TID PRN pain 09/06/22 12/25/22 albuterol sulfate 90 mcg/actuation 2 puff inhalation Q4-6H PRN 10/23/22 12/25/22 aerosol inhaler (Ventolin HFA) Wheezing atorvastatin 80 mg tablet 80 mg PO DAILY 10/23/22 12/25/22 carvedilol 3.125 mg tablet 3.125 mg PO BID 10/23/22 12/25/22 losartan 100 mg tablet 100 mg PO DAILY 10/23/22 12/25/22 metformin 850 mg tablet 850 mg PO BIDWM 10/23/22 12/25/22 triamcinolone acetonide 0.1 % 1 appl topical BID 12/19/22 12/25/22 topical cream Previous Rx's Medication Instructions Recorded docusate sodium 100 mg capsule 100 mg PO BID #180 caps 10/27/22 famotidine 20 mg tablet 20 mg PO BID #180 tabs 10/27/22 polyethylene glycol 3350 17 17 g PO DAILY #510 grams 10/27/22 gram/dose oral powder (Miralax) simethicone 125 mg capsule (Gas 125 mg PO TID-QID PRN Indigestion 11/18/22 Relief Extra Strength) #120 caps apixaban 5 mg tablet (Eliquis) 5 mg PO BID #60 tabs 12/27/22 dexamethasone 6 mg tablet 6 mg PO DAILY #4 tabs 12/27/22 cefuroxime axetil 250 mg tablet 250 mg PO BID 10 days #20 tabs 01/02/23 oxybutynin chloride 5 mg tablet 5 mg PO Q8H PRN bladder spasms #20 01/02/23 tabs tamsulosin 0.4 mg capsule (Flomax) 0.4 mg PO DAILY #14 caps 01/02/23 <CLAIRE Jerry - Last Filed: 01/02/23 13:39> Allergies/adverse reactions: Allergies Allergy/AdvReac Type Severity Reaction Status Date / Time montelukast [Singulair] Allergy Unknown itching/marysol Verified 01/02/23 13:36 h From Singulair Allergy Intermediate RASH Uncoded 11/25/22 11:32 <CLAIRE Jerry - Last Filed: 01/02/23 13:39> Review of Systems Review of Systems: Yes all other systems are reviewed and are negative <CLAIRE Oreilly - Last Filed: 01/02/23 18:14> [facility] Past Medical History Medical History: Medical History Alcohol abuse Arthritis Asthma Atrial fibrillation COPD (chronic obstructive pulmonary disease) Diabetes Gout Hypertension Hypertension Knee arthropathy Nephrolithiasis Osteoarthritis Thrombosed external hemorrhoid <CLAIRE Jerry - Last Filed: 01/02/23 13:39> Surgical History: Surgical History History of total knee arthroplasty Hx of colonoscopy <CLAIRE Jerry - Last Filed: 01/02/23 13:39> Social History Social History: Social History Household Members: Children Household Members Other:: DAUGHTER Housing: Apartment Housing Other:: low income housing Do you presently have visiting nurse or other home services: No Unable to assess alcohol history related to: Unknown Alcohol intake: never Patient Tobacco Use Status: Never used Tobacco Smoked in Last 30 Days: No e-Cigarette/Vaping Use: Never Used Second Hand Smoke Exposure: No Use of substances other than those prescribed or required for medical reasons: No Advance Directives: Yes Advance Directives on File: Yes Advance Directives Date on File: 09/07/22 service: No Current occupational status: unemployed <CLAIRE Jerry - Last Filed: 01/02/23 13:39> Physical Exam ED Vital Signs: Vital Signs - 24 hr 01/02/23 13:36 01/02/23 13:51 01/02/23 15:12 Temperature 98.2 F 98.7 F Pulse Rate 72 69 80 Respiratory Rate 18 16 18 Blood Pressure 137/73 135/68 113/76 Pulse Oximetry 97 98 97 Oxygen Delivery Method Room Air Room Air Room Air BMI result Body Mass Index 35.1 <CLAIRE Jerry - Last Filed: 01/02/23 13:39> Vital Signs - 24 hr 01/02/23 13:36 01/02/23 13:51 01/02/23 15:12 Temperature 98.2 F 98.7 F Pulse Rate 72 69 80 Respiratory Rate 18 16 18 Blood Pressure 137/73 135/68 113/76 Pulse Oximetry 97 98 97 Oxygen Delivery Method Room Air Room Air Room Air BMI result Body Mass Index 35.1 <CLAIRE Oreilly - Last Filed: 01/02/23 18:14> Vital Signs - 24 hr 01/02/23 13:36 01/02/23 13:51 01/02/23 15:12 Temperature 98.2 F 98.7 F Pulse Rate 72 69 80 Respiratory Rate 18 16 18 Blood Pressure 137/73 135/68 113/76 Pulse Oximetry 97 98 97 Oxygen Delivery Method Room Air Room Air Room Air BMI result Body Mass Index 35.1 <CLAIRE Brunson - Last Filed: 01/02/23 19:09> Appearance: Alert. Oriented X3. No acute distress. Eyes: Pupils equal, round and reactive to light. ENT: Pharynx normal. Neck: Normal inspection. Neck supple. CVS: Normal heart rate and rhythm. Pulses normal. Respiratory: No respiratory distress. Breath sounds normal. Abdomen: Abdomen is soft with tenderness to palpation over the right lower quadrant. No rebound or guarding. Normoactive bowel sounds. Skin: Skin warm and dry. Normal skin color. Normal skin turgor. No rashes. Extremities: No lower extremity edema. Neuro: Oriented X 3. No motor deficit. No sensory deficit. <CLAIRE Oreilly - Last Filed: 01/02/23 18:14> Course Course Course Narrative: RME performed by Porsha Perez PA-C. Patient is a 77 year old female presenting to the emergency department with abdominal pain, confusion, and feeling generally unwell. Patient's daughter states that the patient recently had stents placed for kidney stones and the urologist is concerned she is experiencing a complication. Labs and imaging ordered. Charge nurse alerted to the acuity of the patient. <CLAIRE Jerry - Last Filed: 01/02/23 13:39> Reevaluation(s) Reevaluation #1: Patient was seen and evaluated. Vital signs within normal limits, glucose 210, all other labs still pending. <CLAIRE Oreilly - Last Filed: 01/02/23 18:14> Time: 15:00 <CLAIRE Oreilly - Last Filed: 01/02/23 18:14> Reevaluation #2: Review of UA with +leukocyte esterase, moderate blood, neg nitrates. Will treat empirically for urinary tract infection Rocephin. Lactic acid elevated at 2.5, 1 L of IV normal saline ordered and lactic acid normalized. COVID-19 positive, but was positive on 12/25/22. CT abdomen and pelvis still pending. <CLAIRE Oreilly - Last Filed: 01/02/23 18:14> Time: 15:29 <CLAIRE Oreilly - Last Filed: 01/02/23 18:14> Reevaluation #3: CT scan did not show any acute abnormalities. Stents in adequate position. Spoke with Dr. Tellez from Urology who is recommending tamsulosin and p.r.n. oxybutynin 5 mg every 8 hours. Patient sleeping comfortably. These medications have been ordered. Will plan to discharge on them as well as antibiotics for possible infection while awaiting urine culture. <CLAIRE Oreilly - Last Filed: 01/02/23 18:14> Additional Reevaluation(s): CBC unremarkable will be dc home. <CLAIRE Brunson - Last Filed: 01/02/23 19:09> Medications Administered Discontinued Medications Generic Name Dose Route Start Last Admin Trade Name Freq PRN Reason Stop Dose Admin Acetaminophen 975 mg 01/02/23 16:14 01/02/23 17:17 Acetaminophen 325 Mg Tablet PO 01/02/23 16:15 975 mg ONCE ONE Administration Sodium Chloride 1,000 mls @ 999 mls/hr 01/02/23 15:30 01/02/23 17:43 Ns IV 01/02/23 16:30 Infused .Q1H1M GONZALEZ Infusion Ceftriaxone Sodium 1 gm/ 50 mls @ 100 mls/hr 01/02/23 15:20 01/02/23 17:43 Sodium Chloride IV 01/02/23 15:49 Infused ONCE ONE Infusion Oxybutynin Chloride 5 mg 01/02/23 16:22 01/02/23 17:17 Oxybutynin Chloride Er 5 Mg Tab.Er.24 PO 01/02/23 16:23 5 mg ONCE ONE Administration Tamsulosin HCl 0.4 mg 01/02/23 16:22 01/02/23 17:17 Tamsulosin Hcl 0.4 Mg Capsule PO 01/02/23 16:23 0.4 mg ONCE ONE Administration <CLAIRE Jerry - Last Filed: 01/02/23 13:39> Medications Administered Discontinued Medications Generic Name Dose Route Start Last Admin Trade Name Freq PRN Reason Stop Dose Admin Acetaminophen 975 mg 01/02/23 16:14 01/02/23 17:17 Acetaminophen 325 Mg Tablet PO 01/02/23 16:15 975 mg ONCE ONE Administration Sodium Chloride 1,000 mls @ 999 mls/hr 01/02/23 15:30 01/02/23 17:43 Ns IV 01/02/23 16:30 Infused .Q1H1M GONZALEZ Infusion Ceftriaxone Sodium 1 gm/ 50 mls @ 100 mls/hr 01/02/23 15:20 01/02/23 17:43 Sodium Chloride IV 01/02/23 15:49 Infused ONCE ONE Infusion Oxybutynin Chloride 5 mg 01/02/23 16:22 01/02/23 17:17 Oxybutynin Chloride Er 5 Mg Tab.Er.24 PO 01/02/23 16:23 5 mg ONCE ONE Administration Tamsulosin HCl 0.4 mg 01/02/23 16:22 01/02/23 17:17 Tamsulosin Hcl 0.4 Mg Capsule PO 01/02/23 16:23 0.4 mg ONCE ONE Administration <CLAIRE Oreilly - Last Filed: 01/02/23 18:14> Medications Administered Discontinued Medications Generic Name Dose Route Start Last Admin Trade Name Freq PRN Reason Stop Dose Admin Acetaminophen 975 mg 01/02/23 16:14 01/02/23 17:17 Acetaminophen 325 Mg Tablet PO 01/02/23 16:15 975 mg ONCE ONE Administration Sodium Chloride 1,000 mls @ 999 mls/hr 01/02/23 15:30 01/02/23 17:43 Ns IV 01/02/23 16:30 Infused .Q1H1M GONZALEZ Infusion Ceftriaxone Sodium 1 gm/ 50 mls @ 100 mls/hr 01/02/23 15:20 01/02/23 17:43 Sodium Chloride IV 01/02/23 15:49 Infused ONCE ONE Infusion Oxybutynin Chloride 5 mg 01/02/23 16:22 01/02/23 17:17 Oxybutynin Chloride Er 5 Mg Tab.Er.24 PO 01/02/23 16:23 5 mg ONCE ONE Administration Tamsulosin HCl 0.4 mg 01/02/23 16:22 01/02/23 17:17 Tamsulosin Hcl 0.4 Mg Capsule PO 01/02/23 16:23 0.4 mg ONCE ONE Administration <CALIRE Brunson - Last Filed: 01/02/23 19:09> Medical Decision Making Medical Decision Making MDM Narrative: 77-year-old female with recent urologic intervention for bilateral hydronephrosis presenting with acute onset of right-sided abdominal pain and dysuria. Differential includes possible pyelonephritis, migration of the stent, a simple UTI, sepsis, less likely appendicitis. Improved with fluids, antibiotics, flomax, oxybutynin. stable for d/c <CLAIRE Oreilly - Last Filed: 01/02/23 18:14> Differential Diagnosis Differential Diagnoses: The differential diagnosis associated with the presentation includes <CLAIRE Oreilly Last Filed: 01/02/23 18:14> Urinary tract infection, gastritis, gastroenteritis, urosepsis, obstructive uropathy, stent migration, ureteral spasm, pyelonephritis, less likely acute appendicitis <CLAIRE Oreilly Last Filed: 01/02/23 18:14> Admission/Observation Consideration of admission/observation: Escalation of care including admission/observation considered <CLAIRE Oreilly Last Filed: 01/02/23 18:14> Consult Healthcare Provider Management of the patient was discussed with: Tile Classifier <CLAIRE Oreilly Last Filed: 01/02/23 18:14> Dr. Tellez from Urology <CLAIRE Oreilly - Last Filed: 01/02/23 18:14> Lab Data MDM Lab Attestation statement: I reviewed the patient's lab results. <CLAIRE Oreilly - Last Filed: 01/02/23 18:14> Lactic acidosis 2.5, glucose 210, UA significant 2+ blood,small leukocyte esterase. <CLAIRE Oreilly - Last Filed: 01/02/23 18:14> Result Diagrams: 01/02/23 14:35 <CLAIRE Jerry - Last Filed: 01/02/23 13:39> Labs: Lab Results 01/02/23 01/02/23 01/02/23 Range/Units 14:14 14:35 14:35 WBC (4.8-10.8) X10*3/uL RBC (4.20-5.50) X10*6/uL Hgb (12.0-16.0) g/dl Hct (37.0-47.0) % MCV (80.0-98.0) fL MCH (27.0-33.0) pg MCHC (31.0-35.0) g/dl RDW (11.0-16.0) % Plt Count (160-400) X10*3/uL MPV (9.4-12.3) fL Immature Gran % (Auto) (0.0-0.4) % Neut % (Auto) (45-73) % Lymph % (Auto) (20-40) % Griggs % (Auto) (2-11) % Eos % (Auto) (0-4) % Baso % (Auto) (0-2) % Lymph # (Auto) (1.2-4.9) X10*3/uL Griggs # (Auto) (0.1-1.2) X10*3/uL Eos # (Auto) (0.0-0.4) X10*3/uL Baso # (Auto) (0.0-0.2) X10*3/uL Abs Immat Gran (auto) (0.00-0.03) X10*3/uL Absolute Neuts (auto) (2.0-8.3) x10*3/uL Absolute Nucleated RBC (0.0-0.012) X10*3/uL Nucleated RBC % (auto) (0.0-0.2) /100WBC Sodium 135 (135-145) mmol/L Potassium 5.1 (3.3-5.1) mmol/L Chloride 99 (96-108) mmol/L Carbon Dioxide 28 (22-29) mmol/L Anion Gap 13 (12-20) BUN 27 H (9-16) mg/dL Creatinine 0.89 (0.5-1.4) mg/dL Estim Creat Clear Calc 53.3 Estimated GFR > 60 Random Glucose 210 H (60-115) mg/dL Lactic Acid 2.5 H* (0.5-2.0) mmol/L Lactic Acid F/U @ 2Hr (0.5-2.0) mmol/L Calcium 9.6 D (8.4-10.2) mg/dL Magnesium 1.6 (1.6-2.6) mg/dL Total Bilirubin 0.7 (0.0-1.0) mg/dL AST 17 (5-31) U/L ALT 35 H (0-31) U/L Alkaline Phosphatase 87 (39-117) U/L Total Protein 6.5 (6.5-8.0) g/dL Albumin 3.7 (3.5-5.0) g/dL Urine Color Urine Appearance Urine pH (5.0-9.0) Ur Specific Rowlett (1.005-1.025) Urine Protein (Neg-Trace) mg/dL Urine Glucose (UA) (Negative) mg/dL Urine Ketones (Negative) mg/dL Urine Blood (Negative) Urine Nitrite (Negative) Ur Leukocyte Esterase (Negative) Urine RBC (0-2) /HPF Urine WBC (0-5) /HPF Ur Squamous Epith Cells (0-2) /HPF Urine Bacteria (None Seen) Hyaline Casts (0-2) /LPF COVID-19 (MARQUISE) Positive A (Negative) COVID-19 Clin Com See Note 01/02/23 01/02/23 01/02/23 Range/Units 14:49 17:38 17:38 WBC 9.9 (4.8-10.8) X10*3/uL RBC 4.13 L (4.20-5.50) X10*6/uL Hgb 11.5 L (12.0-16.0) g/dl Hct 34.8 L (37.0-47.0) % MCV 84.3 (80.0-98.0) fL MCH 27.8 (27.0-33.0) pg MCHC 33.0 (31.0-35.0) g/dl RDW 12.7 (11.0-16.0) % Plt Count 319 (160-400) X10*3/uL MPV 10.3 (9.4-12.3) fL Immature Gran % (Auto) 0.9 H (0.0-0.4) % Neut % (Auto) 74.2 H (45-73) % Lymph % (Auto) 13.5 L (20-40) % Griggs % (Auto) 9.8 (2-11) % Eos % (Auto) 1.5 (0-4) % Baso % (Auto) 0.1 (0-2) % Lymph # (Auto) 1.3 (1.2-4.9) X10*3/uL Griggs # (Auto) 1.0 (0.1-1.2) X10*3/uL Eos # (Auto) 0.2 (0.0-0.4) X10*3/uL Baso # (Auto) 0.0 (0.0-0.2) X10*3/uL Abs Immat Gran (auto) 0.09 H (0.00-0.03) X10*3/uL Absolute Neuts (auto) 7.3 (2.0-8.3) x10*3/uL Absolute Nucleated RBC 0.000 (0.0-0.012) X10*3/uL Nucleated RBC % (auto) 0.0 (0.0-0.2) /100WBC Sodium (135-145) mmol/L Potassium (3.3-5.1) mmol/L Chloride (96-108) mmol/L Carbon Dioxide (22-29) mmol/L Anion Gap (12-20) BUN (9-16) mg/dL Creatinine (0.5-1.4) mg/dL Estim Creat Clear Calc Estimated GFR Random Glucose (60-115) mg/dL Lactic Acid (0.5-2.0) mmol/L Lactic Acid F/U @ 2Hr 1.4 (0.5-2.0) mmol/L Calcium (8.4-10.2) mg/dL Magnesium (1.6-2.6) mg/dL Total Bilirubin (0.0-1.0) mg/dL AST (5-31) U/L ALT (0-31) U/L Alkaline Phosphatase (39-117) U/L Total Protein (6.5-8.0) g/dL Albumin (3.5-5.0) g/dL Urine Color Yellow Urine Appearance Clear Urine pH 7.0 (5.0-9.0) Ur Specific Rowlett 1.020 (1.005-1.025) Urine Protein 100 (2+) H (Neg-Trace) mg/dL Urine Glucose (UA) Negative (Negative) mg/dL Urine Ketones Negative (Negative) mg/dL Urine Blood Moderate (2+) H (Negative) Urine Nitrite Negative (Negative) Ur Leukocyte Esterase Small (1+) H (Negative) Urine RBC >20 H (0-2) /HPF Urine WBC 11-20 H (0-5) /HPF Ur Squamous Epith Cells 0-2 (0-2) /HPF Urine Bacteria None Seen (None Seen) Hyaline Casts 0-2 (0-2) /LPF COVID-19 (MARQUISE) (Negative) COVID-19 Clin Com <CLAIRE Jerry - Last Filed: 01/02/23 13:39> Lab Results 01/02/23 01/02/23 01/02/23 Range/Units 14:14 14:35 14:35 WBC (4.8-10.8) X10*3/uL RBC (4.20-5.50) X10*6/uL Hgb (12.0-16.0) g/dl Hct (37.0-47.0) % MCV (80.0-98.0) fL MCH (27.0-33.0) pg MCHC (31.0-35.0) g/dl RDW (11.0-16.0) % Plt Count (160-400) X10*3/uL MPV (9.4-12.3) fL Immature Gran % (Auto) (0.0-0.4) % Neut % (Auto) (45-73) % Lymph % (Auto) (20-40) % Griggs % (Auto) (2-11) % Eos % (Auto) (0-4) % Baso % (Auto) (0-2) % Lymph # (Auto) (1.2-4.9) X10*3/uL Griggs # (Auto) (0.1-1.2) X10*3/uL Eos # (Auto) (0.0-0.4) X10*3/uL Baso # (Auto) (0.0-0.2) X10*3/uL Abs Immat Gran (auto) (0.00-0.03) X10*3/uL Absolute Neuts (auto) (2.0-8.3) x10*3/uL Absolute Nucleated RBC (0.0-0.012) X10*3/uL Nucleated RBC % (auto) (0.0-0.2) /100WBC Sodium 135 (135-145) mmol/L Potassium 5.1 (3.3-5.1) mmol/L Chloride 99 (96-108) mmol/L Carbon Dioxide 28 (22-29) mmol/L Anion Gap 13 (12-20) BUN 27 H (9-16) mg/dL Creatinine 0.89 (0.5-1.4) mg/dL Estim Creat Clear Calc 53.3 Estimated GFR > 60 Random Glucose 210 H (60-115) mg/dL Lactic Acid 2.5 H* (0.5-2.0) mmol/L Lactic Acid F/U @ 2Hr (0.5-2.0) mmol/L Calcium 9.6 D (8.4-10.2) mg/dL Magnesium 1.6 (1.6-2.6) mg/dL Total Bilirubin 0.7 (0.0-1.0) mg/dL AST 17 (5-31) U/L ALT 35 H (0-31) U/L Alkaline Phosphatase 87 (39-117) U/L Total Protein 6.5 (6.5-8.0) g/dL Albumin 3.7 (3.5-5.0) g/dL Urine Color Urine Appearance Urine pH (5.0-9.0) Ur Specific Rowlett (1.005-1.025) Urine Protein (Neg-Trace) mg/dL Urine Glucose (UA) (Negative) mg/dL Urine Ketones (Negative) mg/dL Urine Blood (Negative) Urine Nitrite (Negative) Ur Leukocyte Esterase (Negative) Urine RBC (0-2) /HPF Urine WBC (0-5) /HPF Ur Squamous Epith Cells (0-2) /HPF Urine Bacteria (None Seen) Hyaline Casts (0-2) /LPF COVID-19 (MARQUISE) Positive A (Negative) COVID-19 Clin Com See Note 01/02/23 01/02/23 01/02/23 Range/Units 14:49 17:38 17:38 WBC 9.9 (4.8-10.8) X10*3/uL RBC 4.13 L (4.20-5.50) X10*6/uL Hgb 11.5 L (12.0-16.0) g/dl Hct 34.8 L (37.0-47.0) % MCV 84.3 (80.0-98.0) fL MCH 27.8 (27.0-33.0) pg MCHC 33.0 (31.0-35.0) g/dl RDW 12.7 (11.0-16.0) % Plt Count 319 (160-400) X10*3/uL MPV 10.3 (9.4-12.3) fL Immature Gran % (Auto) 0.9 H (0.0-0.4) % Neut % (Auto) 74.2 H (45-73) % Lymph % (Auto) 13.5 L (20-40) % Griggs % (Auto) 9.8 (2-11) % Eos % (Auto) 1.5 (0-4) % Baso % (Auto) 0.1 (0-2) % Lymph # (Auto) 1.3 (1.2-4.9) X10*3/uL Griggs # (Auto) 1.0 (0.1-1.2) X10*3/uL Eos # (Auto) 0.2 (0.0-0.4) X10*3/uL Baso # (Auto) 0.0 (0.0-0.2) X10*3/uL Abs Immat Gran (auto) 0.09 H (0.00-0.03) X10*3/uL Absolute Neuts (auto) 7.3 (2.0-8.3) x10*3/uL Absolute Nucleated RBC 0.000 (0.0-0.012) X10*3/uL Nucleated RBC % (auto) 0.0 (0.0-0.2) /100WBC Sodium (135-145) mmol/L Potassium (3.3-5.1) mmol/L Chloride (96-108) mmol/L Carbon Dioxide (22-29) mmol/L Anion Gap (12-20) BUN (9-16) mg/dL Creatinine (0.5-1.4) mg/dL Estim Creat Clear Calc Estimated GFR Random Glucose (60-115) mg/dL Lactic Acid (0.5-2.0) mmol/L Lactic Acid F/U @ 2Hr 1.4 (0.5-2.0) mmol/L Calcium (8.4-10.2) mg/dL Magnesium (1.6-2.6) mg/dL Total Bilirubin (0.0-1.0) mg/dL AST (5-31) U/L ALT (0-31) U/L Alkaline Phosphatase (39-117) U/L Total Protein (6.5-8.0) g/dL Albumin (3.5-5.0) g/dL Urine Color Yellow Urine Appearance Clear Urine pH 7.0 (5.0-9.0) Ur Specific Rowlett 1.020 (1.005-1.025) Urine Protein 100 (2+) H (Neg-Trace) mg/dL Urine Glucose (UA) Negative (Negative) mg/dL Urine Ketones Negative (Negative) mg/dL Urine Blood Moderate (2+) H (Negative) Urine Nitrite Negative (Negative) Ur Leukocyte Esterase Small (1+) H (Negative) Urine RBC >20 H (0-2) /HPF Urine WBC 11-20 H (0-5) /HPF Ur Squamous Epith Cells 0-2 (0-2) /HPF Urine Bacteria None Seen (None Seen) Hyaline Casts 0-2 (0-2) /LPF COVID-19 (MARQUISE) (Negative) COVID-19 Clin Com <CLAIRE Oreilly - Last Filed: 01/02/23 18:14> Lab Results 01/02/23 01/02/23 01/02/23 Range/Units 14:14 14:35 14:35 WBC (4.8-10.8) X10*3/uL RBC (4.20-5.50) X10*6/uL Hgb (12.0-16.0) g/dl Hct (37.0-47.0) % MCV (80.0-98.0) fL MCH (27.0-33.0) pg MCHC (31.0-35.0) g/dl RDW (11.0-16.0) % Plt Count (160-400) X10*3/uL MPV (9.4-12.3) fL Immature Gran % (Auto) (0.0-0.4) % Neut % (Auto) (45-73) % Lymph % (Auto) (20-40) % Griggs % (Auto) (2-11) % Eos % (Auto) (0-4) % Baso % (Auto) (0-2) % Lymph # (Auto) (1.2-4.9) X10*3/uL Griggs # (Auto) (0.1-1.2) X10*3/uL Eos # (Auto) (0.0-0.4) X10*3/uL Baso # (Auto) (0.0-0.2) X10*3/uL Abs Immat Gran (auto) (0.00-0.03) X10*3/uL Absolute Neuts (auto) (2.0-8.3) x10*3/uL Absolute Nucleated RBC (0.0-0.012) X10*3/uL Nucleated RBC % (auto) (0.0-0.2) /100WBC Sodium 135 (135-145) mmol/L Potassium 5.1 (3.3-5.1) mmol/L Chloride 99 (96-108) mmol/L Carbon Dioxide 28 (22-29) mmol/L Anion Gap 13 (12-20) BUN 27 H (9-16) mg/dL Creatinine 0.89 (0.5-1.4) mg/dL Estim Creat Clear Calc 53.3 Estimated GFR > 60 Random Glucose 210 H (60-115) mg/dL Lactic Acid 2.5 H* (0.5-2.0) mmol/L Lactic Acid F/U @ 2Hr (0.5-2.0) mmol/L Calcium 9.6 D (8.4-10.2) mg/dL Magnesium 1.6 (1.6-2.6) mg/dL Total Bilirubin 0.7 (0.0-1.0) mg/dL AST 17 (5-31) U/L ALT 35 H (0-31) U/L Alkaline Phosphatase 87 (39-117) U/L Total Protein 6.5 (6.5-8.0) g/dL Albumin 3.7 (3.5-5.0) g/dL Urine Color Urine Appearance Urine pH (5.0-9.0) Ur Specific [place] (1.005-1.025) Urine Protein (Neg-Trace) mg/dL Urine Glucose (UA) (Negative) mg/dL Urine Ketones (Negative) mg/dL Urine Blood (Negative) Urine Nitrite (Negative) Ur Leukocyte Esterase (Negative) Urine RBC (0-2) /HPF Urine WBC (0-5) /HPF Ur Squamous Epith Cells (0-2) /HPF Urine Bacteria (None Seen) Hyaline Casts (0-2) /LPF COVID-19 ([facility]) Positive A (Negative) COVID-19 Clin Com See Note 01/02/23 01/02/23 01/02/23 Range/Units 14:49 17:38 17:38 WBC 9.9 (4.8-10.8) X10*3/uL RBC 4.13 L (4.20-5.50) X10*6/uL Hgb 11.5 L (12.0-16.0) g/dl Hct 34.8 L (37.0-47.0) % MCV 84.3 (80.0-98.0) fL MCH 27.8 (27.0-33.0) pg MCHC 33.0 (31.0-35.0) g/dl RDW 12.7 (11.0-16.0) % Plt Count 319 (160-400) X10*3/uL MPV 10.3 (9.4-12.3) fL Immature Gran % (Auto) 0.9 H (0.0-0.4) % Neut % (Auto) 74.2 H (45-73) % Lymph % (Auto) 13.5 L (20-40) % Griggs % (Auto) 9.8 (2-11) % Eos % (Auto) 1.5 (0-4) % Baso % (Auto) 0.1 (0-2) % Lymph # (Auto) 1.3 (1.2-4.9) X10*3/uL [place] # (Auto) 1.0 (0.1-1.2) X10*3/uL Eos # (Auto) 0.2 (0.0-0.4) X10*3/uL Baso # (Auto) 0.0 (0.0-0.2) X10*3/uL Abs Immat Gran (auto) 0.09 H (0.00-0.03) X10*3/uL Absolute Neuts (auto) 7.3 (2.0-8.3) x10*3/uL Absolute Nucleated RBC 0.000 (0.0-0.012) X10*3/uL Nucleated RBC % (auto) 0.0 (0.0-0.2) /100WBC Sodium (135-145) mmol/L Potassium (3.3-5.1) mmol/L Chloride (96-108) mmol/L Carbon Dioxide (22-29) mmol/L Anion Gap (12-20) BUN (9-16) mg/dL Creatinine (0.5-1.4) mg/dL Estim Creat Clear Calc Estimated GFR Random Glucose (60-115) mg/dL Lactic Acid (0.5-2.0) mmol/L Lactic Acid F/U @ 2Hr 1.4 (0.5-2.0) mmol/L Calcium (8.4-10.2) mg/dL Magnesium (1.6-2.6) mg/dL Total Bilirubin (0.0-1.0) mg/dL AST (5-31) U/L ALT (0-31) U/L Alkaline Phosphatase (39-117) U/L Total Protein (6.5-8.0) g/dL Albumin (3.5-5.0) g/dL Urine Color Yellow Urine Appearance Clear Urine pH 7.0 (5.0-9.0) Ur Specific [place] 1.020 (1.005-1.025) Urine Protein 100 (2+) H (Neg-Trace) mg/dL Urine Glucose (UA) Negative (Negative) mg/dL Urine Ketones Negative (Negative) mg/dL Urine Blood Moderate (2+) H (Negative) Urine Nitrite Negative (Negative) Ur Leukocyte Esterase Small (1+) H (Negative) Urine RBC >20 H (0-2) /HPF Urine WBC 11-20 H (0-5) /HPF Ur Squamous Epith Cells 0-2 (0-2) /HPF Urine Bacteria None Seen (None Seen) Hyaline Casts 0-2 (0-2) /LPF COVID-19 ([facility]QUISE) (Negative) COVID-19 Clin Com <CLAIRE Brunson - Last Filed: 01/02/23 19:09> Independent Interpretation I performed an independent interpretation of an: CT Scan <CLAIRE Oreilly - Last Filed: 01/02/23 18:14> Interpretation: CT with No ureteral stones appreciated, stents in place. Agrees radiology impression. <CLAIRE Oreilly - Last Filed: 01/02/23 18:14> Radiology Impression Discussion of test interpretation with radiology: I have reviewed the radiologist's reading. <CLAIRE Oreilly - Last Filed: 01/02/23 18:14> Radiologist Impression: CT/CT abdomen pelvis wo IV con IMPRESSION: 1.? No acute intra-abdominal process identified. 2.? 7 mm calculus in the left renal pelvis and 6 mm nonobstructing left lower pole renal calculus. 3.? Double-J ureteral stents in appropriate position. No hydronephrosis. 4.? Previously seen high-density material/hemorrhage within the right renal pelvis has resolved. 5.? Trace free pelvic fluid. 6.? Sigmoid diverticulosis. No evidence of acute diverticulitis. <CLAIRE Oreilly - Last Filed: 01/02/23 18:14> Independent Historian Clinical information obtained from an independent historian. History obtained from or confirmed by: Other (Daughter who she lives with.) <CLAIRE Oreilly - Last Filed: 01/02/23 18:14> External Record Review External record reviewed: Inpatient record, Outpatient record, Prior outpatient labs and Prior outpatient radiology <CLAIRE Oreilly - Last Filed: 02/24/23 18:14> Prescription Management I considered prescription management with: Pain Medication and Antibiotic <CLAIRE Oreilly Last Filed: 01/02/23 18:14> Chronic Conditions Patient?s care impacted by: Diabetes and Hypertension <CLAIRE Oreilly Last Filed: 01/02/23 18:14> Discharge Plan Discharge Clinical Impression: Ureter colic, Urinary tract infection <CLAIRE Jerry Last Filed: 01/02/23 13:39> Patient Disposition: Home, Self-Care <CLAIRE Jerry Last Filed: 01/02/23 13:39> Instructions: Urinary Tract Infection in Women (ED) <CLAIRE Jerry Last Filed: 01/02/23 13:39> Additional Instructions: Take the prescribed antibiotic as directed, complete the entire course. Start them 1st thing in the morning. Your CT scan did not show any acute processes to cause her pain. The pain is probably from spasm of the stent and ureter. Take the prescribed medications for this as per Dr. Tellez recommendation. Recommend following up with Dr. Tellez/urology. If you develop new or worsening symptoms call 911 or come back to the ER for further evaluation. <CLAIRE Jerry Last Filed: 01/02/23 13:39> Prescriptions: New cefuroxime axetil 250 mg tablet 250 mg PO BID 10 Days Qty: 20 0RF tamsulosin [Flomax] 0.4 mg capsule 0.4 mg PO DAILY Qty: 14 0RF oxybutynin chloride 5 mg tablet 5 mg PO Q8H PRN (Reason: bladder spasms) Qty: 20 0RF No Action simethicone [Gas Relief Extra Strength] 125 mg capsule 125 mg PO TID-QID PRN (Reason: Indigestion) Qty: 120 3RF fluticasone propion-salmeterol [Advair Diskus] 250-50 mcg/dose blister with device 1 puff INHALATION BID sennosides [senna] 8.6 mg tablet 1 tab PO BID PRN (Reason: constipation) albuterol sulfate 2.5 mg /3 mL (0.083 %) solution for nebulization 1 amp inhalation QID PRN (Reason: Wheezing) (DME) blood-glucose meter [OneTouch Verio Flex meter] [facility] [place], [place] MISCELLANEOUS DIRECTED diltiazem HCl [Cartia XT] 180 mg capsule,extended release 24hr 1 cap PO DAILY alendronate 70 mg tablet 1 tab PO REESE (DME) Tablelist IncTouch Verio test strips Strip MISCELLANEOUS BID tramadol 50 mg tablet 1 tab PO TID PRN (Reason: pain) furosemide 80 mg tablet 1 tab PO BIDWM ferrous sulfate [FeroSul] 325 mg (65 mg iron) tablet 1 tab PO Q OTHER DAY Fiber Laxative (methylcellulo) 500 mg tablet 1 tab PO DAILY fluticasone propionate 50 mcg/actuation spray,suspension 2 spray intranasal DAILY (DME) lancets [Tablelist IncTouch Delica Plus Lancet] 33 gauge [facility] [place] MISCELLANEOUS BID triamcinolone acetonide 0.1 % cream 1 appl topical BID dexamethasone 6 mg tablet 6 mg PO DAILY Qty: 4 0RF Eliquis 5 mg tablet 5 mg PO BID Qty: 60 0RF polyethylene glycol 3350 [Miralax] 17 gram/dose powder 17 g PO DAILY Qty: 510 3RF famotidine 20 mg tablet 20 mg PO BID Qty: 180 2RF docusate sodium 100 mg capsule 100 mg PO BID Qty: 180 3RF losartan 100 mg tablet 100 mg PO DAILY carvedilol 3.125 mg tablet 3.125 mg PO BID metformin 850 mg tablet 850 mg PO BIDWM atorvastatin 80 mg tablet 80 mg PO DAILY albuterol sulfate [Ventolin HFA] 90 mcg/actuation HFA aerosol inhaler 2 puff inhalation Q4-6H PRN (Reason: Wheezing) <CLAIRE Jerry - Last Filed: 01/02/23 13:39> Referrals: [facility] [place] [facility] [Provider Group] <CLAIRE Jerry - Last Filed: 01/02/23 13:39>
[2023-01-02 13:51] VITALS: BP 135/68; PULSE 69; RESP 16; O2SAT 98
[2023-01-02 14:35] LABS: COVID-19 Test Positive (Negative); IDNOW Serial# BCCEAD1C
[2023-01-02 15:09] LABS: Appearance Urine Clear; Color Urine Yellow; Glucose Urine UA Negative (Negative); Leukocyte Esterase Urine Small (1+) (Negative); Nitrite Urine Negative (Negative); UMIC TRIGGER UACC YES; Urine Blood Moderate (2+) (Negative); Urine Ketones Negative (Negative); Urine Protein 100 (2+) mg/dL (Neg-Trace)
[2023-01-02 15:10] LABS: Alanine Aminotransferase 35 U/L (0-31); Albumin Level 3.7 g/dL (3.5-5.0); Alkaline Phosphatase 87 U/L (39-117); Anion Gap 13 (12-20); Aspartate Amino Transferase 17 U/L (5-31); Bilirubin Total 0.7 mg/dL (0.0-1.0); Blood Urea Nitrogen 27 mg/dL (9-16); Calcium 9.6 mg/dL (8.4-10.2); Carbon Dioxide 28 mmol/L (22-29); Chloride 99 mmol/L (96-108); Creatinine Clr Calc Pharmacy 53.3; Estimated Glomerular Filt Rate > 60; Glucose Random 210 mg/dL (60-115); Magnesium 1.6 mg/dL (1.6-2.6); Potassium 5.1 mmol/L (3.3-5.1); Sodium 135 mmol/L (135-145); Total Protein 6.5 g/dL (6.5-8.0)
[2023-01-02 15:12] VITALS: BP 113/76; PULSE 80; RESP 18; TEMP 37.1; O2SAT 97
[2023-01-02 15:14] LABS: Bacteria Urine None Seen (None Seen); Hyaline Casts Urine 0-2 /LPF (0-2); RBC Urine >20 /HPF (0-2); Squamous Epithelial Cell Urine 0-2 /HPF (0-2); UACC Culture Trigger YES
[2023-01-02 15:20] LABS: Lactic Acid 2.5 mmol/L (0.5-2.0)
[2023-01-02] MEDS: 0.9 % Sodium Chloride 1,000 ML 999 ML IV (15:56)
[2023-01-02] MEDS: cefTRIAXone sodium 1 GM in 0.9 % Sodium Chloride 50 ML IV (15:56)
[2023-01-02 16:44] LABS: Reflex Lactate? Lactic Acid Added
[2023-01-02] MEDS: Acetaminophen 325 MG TABLET 975 MG PO (17:17)
[2023-01-02] MEDS: oxyBUTYnin chloride ER 5 MG TAB.ER.24 PO (17:17)
[2023-01-02] MEDS: Tamsulosin HCL 0.4 MG CAPSULE PO (17:17)
[2023-01-02 18:04] LABS: ~Lactic Acid-LAB USE ONLY 1.4 mmol/L (0.5-2.0)
[2023-01-02 18:19] LABS: MANUAL DIFF FLAG NO
[2023-01-02 18:55] LABS: Basophils Percent Auto 0.1 % (0-2); Eosinophils Absolute Auto 0.2 X10*3/uL (0.0-0.4); Eosinophils Percent Auto 1.5 % (0-4); Hematocrit 34.8 % (37.0-47.0); Hemoglobin 11.5 g/dl (12.0-16.0); Imm Gran Abs Auto 0.09 X10*3/uL (0.00-0.03); Imm Gran Pct Auto 0.9 % (0.0-0.4); Lymphocytes Absolute Auto 1.3 X10*3/uL (1.2-4.9); Lymphocytes Percent Auto 13.5 % (20-40); Mean Corpuscular Hemoglobin 27.8 pg (27.0-33.0); Mean Corpuscular Volume 84.3 fL (80.0-98.0); Mean Platelet Volume 10.3 fL (9.4-12.3); Monocytes Percent Auto 9.8 % (2-11); Neutrophils Absolute Auto 7.3 x10*3/uL (2.0-8.3); Neutrophils Percent Auto 74.2 % (45-73); Platelet Count 319 X10*3/uL (160-400); Red Blood Count 4.13 X10*6/uL (4.20-5.50); Red Cell Distribution Width 12.7 % (11.0-16.0); White Blood Count 9.9 X10*3/uL (4.8-10.8)
== END 2023-01-02 19:29 | disposition home or self-care (01) ==
PROVIDERS: Physician Assistant Medical; Emergency Provider Student in an Organized Health Care Education/Training Program; PCP Registered Nurse
DX: K80.50 Calculus of bile duct without cholangitis or cholecystitis without obstruction (principal); N39.0 Urinary tract infection, site not specified; Z20.822 Contact with and (suspected) exposure to COVID-19; Z20.828 Contact with and (suspected) exposure to other viral communicable diseases; Z79.899 Other long term (current) drug therapy
CPT/HCPCS: 74176; 80053; 81001; 81003; 83605; 83735; 85025; 87040; 87086; 87635; 96361; 96374; 99284; J0696

== ENCOUNTER → 2023-01-08 10:35 | Outpatient (BNVA) | payer OTHER, SELFPAY | PROVIDERS: PCP Registered Nurse; Visit Provider Urology | DX: Q62.11 Congenital occlusion of ureteropelvic junction (principal) | CPT/HCPCS: 52310; 99212 ==

== ENCOUNTER → 2023-01-19 09:53 | Outpatient (BNVA) | payer OTHER, SELFPAY | PROVIDERS: PCP Registered Nurse; Visit Provider Nurse Practitioner Family | DX: K59.04 Chronic idiopathic constipation (principal); K21.9 Gastro-esophageal reflux disease without esophagitis; K58.1 Irritable bowel syndrome with constipation; K64.9 Unspecified hemorrhoids | CPT/HCPCS: 99212 ==

== ENCOUNTER 2023-02-09 13:01 | Outpatient (REF) | payer MEDICARE, SELFPAY ==
--- NOTE | ~2023-02-09 | XR_ITS ---
EXAMINATION: XR PELVIS CLINICAL INFORMATION: Hip pain COMPARISON: Previous x-ray most recent July 2019 TECHNIQUE: AP view of the pelvis. FINDINGS: The bones and soft tissues are normal. No fracture. Sacroiliac and hip joints are normal. Pubic symphysis is normal. No abnormal soft tissue calcifications. Degenerative changes of the visualized lower lumbar spine. XR/XR pelvis 1-2V IMPRESSION: Normal pelvis.
== END 2023-02-09 13:02 | disposition home or self-care (01) ==
LOC: HO.HOSX 13:01
PROVIDERS: PCP Registered Nurse; Visit Provider Orthopaedic Surgery
DX: M70.61 Trochanteric bursitis, right hip (principal); I50.9 Heart failure, unspecified; E11.9 Type 2 diabetes mellitus without complications; Z79.01 Long term (current) use of anticoagulants
CPT/HCPCS: 20610; 72170; 99202; J1100

== ENCOUNTER 2023-03-02 01:18 | Inpatient (IN) | payer OTHER, SELFPAY ==
[2023-03-02] VITALS (15 sets, daily range): BP systolic 141–183; BP diastolic 72–111; PULSE 83–146; RESP 12–38; TEMP 36–36.9; O2SAT 90–100; BMI 36.6
--- NOTE | 2023-03-02 | ECG_ITS ---
Test Reason : tacycardia Blood Pressure : / mmHG Vent. Rate : 117 BPM Atrial Rate : 000 BPM P-R Int : 000 ms QRS Dur : 086 ms QT Int : 328 ms P-R-T Axes : 000 036 160 degrees QTc Int : 457 ms Atrial fibrillation with rapid ventricular response with premature ventricular or aberrantly conducted complexes ST & T wave abnormality, consider lateral ischemia Abnormal ECG When compared with ECG of 25-DEC-2022 15:01, T wave inversion less evident in Anterior leads Referred By: Generic ED Physician Electronically Signed By:Colby Cadena
--- NOTE | ~2023-03-02 | XR_ITS ---
EXAMINATION: XR CHEST CLINICAL INFORMATION: Dyspnea COMPARISON: Previous chest x-ray most recent from earlier the same day TECHNIQUE: Frontal view of the chest was obtained. FINDINGS: The cardiac and mediastinal contours are stable. There are increased central bronchovascular markings. Differential would include mild pulmonary edema and airways disease. Subsegmental atelectasis at the right lung base. The lungs are otherwise clear. No pleural effusion or pneumothorax. Degenerative changes of the spine. XR/XR chest 1V IMPRESSION: Increased central bronchovascular markings. Differential would include mild pulmonary edema and airways disease. Clinical correlation recommended.
--- NOTE | ~2023-03-02 | XR_ITS ---
EXAMINATION: XR CHEST CLINICAL INFORMATION: Oxygen desaturation COMPARISON: 12/25/2022 TECHNIQUE: Frontal view of the chest was obtained. FINDINGS: Lung volumes are symmetric. Mildly prominent central vasculature without overt edema. No focal consolidation is seen. Subsegmental atelectasis suspected at the right lung base. No evidence of pneumothorax or significant pleural effusion. The cardiomediastinal contour is unremarkable. No acute osseous findings are seen. XR/XR chest 1V IMPRESSION: Mildly prominent central vasculature without overt edema. Subsegmental right basilar atelectasis.
--- NOTE | ~2023-03-02 | FL_ITS ---
EXAMINATION: XR FLUOROSCOPY WITH IMAGES CLINICAL INFORMATION: Cystoscopy and stent placement COMPARISON: Previous fluoroscopy exam most recent December [address] of the abdomen and pelvis most recent February 2023 TECHNIQUE: Fluoroscopy Supervised By: Dr. Mcgraw. Fluoroscopy Time: 44. Cumulative Dose: 18 mGy. DAP: Gycm2. Images: 5. FINDINGS: Fluoroscopy guidance provided for bilateral retrograde exam and stent placement. There is bilateral hydronephrosis. FL/FL guidance in OR IMPRESSION: Fluoroscopy guidance for urology procedure.
--- NOTE | ~2023-03-02 | CT_ITS ---
EXAMINATION: CT ABDOMEN AND PELVIS WITHOUT CONTRAST CLINICAL INFORMATION: R flank pain hx stents COMPARISON: 01/02/2023 TECHNIQUE: Multidetector volumetric imaging was performed from the superior aspect of the liver through the pubic symphysis. Sagittal and coronal reformatted images were obtained on the technologist's workstation. This CT examination was performed using dose optimization techniques as appropriate, variously including the following: *Automated exposure control *Adjustment of mA and/or kV according to patient size (this includes techniques or standardized protocols for targeted exams where dose is matched to indication/reason for exam; i.e. extremities or head) *Use of iterative reconstruction technique DLP: 751 mGy-cm FINDINGS: Limited evaluation in some regions due to motion artifact. LUNG BASES: Trace pleural effusions. LIVER, GALLBLADDER, AND BILIARY TREE: The liver is normal in size, shape, and attenuation. No focal hepatic lesion or biliary ductal dilatation is identified. Gallbladder is not well evaluated due to motion artifact. PANCREAS: Unremarkable. SPLEEN: Unremarkable. ADRENAL GLANDS: Unremarkable. KIDNEYS AND URETERS: There has been interval removal of ureteral stents since 01/02/2023. There is severe right hydronephrosis with abrupt transition to normal caliber ureter; though this region is suboptimally assessed due to motion artifact, no obstructing calculus is seen. There is also severe left-sided hydronephrosis with similar abrupt transition to a normal caliber ureter at the ureteropelvic junction, with no obstructing calculus seen. Redemonstrated prominent left renal cysts; no follow-up recommended. Redemonstrated left lower pole renal calculi. BLADDER: Mildly distended and grossly unremarkable. GASTROINTESTINAL TRACT: Colonic diverticulosis is noted. The small and large bowel are otherwise unremarkable without evidence of obstruction or pericolonic inflammatory change. No free fluid or free air is seen. ABDOMINAL WALL: No significant hernia is appreciated. LYMPH NODES: Normal. VASCULAR: Scattered atherosclerotic calcifications. PELVIC VISCERA: Patient is status post hysterectomy. OSSEOUS STRUCTURES: Degenerative changes are noted in the spine. CT/CT abdomen pelvis wo IV con IMPRESSION: 1. Severe bilateral hydronephrosis with abrupt transition to normal caliber ureters in keeping with the UPJ obstructions. Appearance is significantly worsened from 01/02/2023, with interval removal of ureteral stents. 2. Redemonstrated left lower pole renal calculi. 3. Trace pleural effusions.
[2023-03-02 02:46] LABS: MANUAL DIFF FLAG NO
[2023-03-02 02:48] LABS: Basophils Absolute Auto 0.1 X10*3/uL (0.0-0.2); Eosinophils Absolute Auto 0.3 X10*3/uL (0.0-0.4); Eosinophils Percent Auto 5.4 % (0-4); Hematocrit 30.9 % (37.0-47.0); Hemoglobin 9.7 g/dl (12.0-16.0); Imm Gran Abs Auto 0.02 X10*3/uL (0.00-0.03); Imm Gran Pct Auto 0.4 % (0.0-0.4); Lymphocytes Absolute Auto 0.8 X10*3/uL (1.2-4.9); Lymphocytes Percent Auto 16.2 % (20-40); Mean Corpuscular HGB Conc 31.4 g/dl (31.0-35.0); Mean Corpuscular Hemoglobin 27.6 pg (27.0-33.0); Mean Platelet Volume 9.6 fL (9.4-12.3); Monocytes Absolute Auto 0.5 X10*3/uL (0.1-1.2); Neutrophils Absolute Auto 3.4 x10*3/uL (2.0-8.3); Platelet Count 274 X10*3/uL (160-400); Red Blood Count 3.51 X10*6/uL (4.20-5.50); Red Cell Distribution Width 14.6 % (11.0-16.0)
[2023-03-02 03:13] LABS: Alanine Aminotransferase 26 U/L (0-31); Alkaline Phosphatase 97 U/L (39-117); Anion Gap 15 (12-20); Aspartate Amino Transferase 27 U/L (5-31); Bilirubin Total 0.6 mg/dL (0.0-1.0); Blood Urea Nitrogen 35 mg/dL (9-16); Calcium 9.1 mg/dL (8.4-10.2); Carbon Dioxide 28 mmol/L (22-29); Chloride 104 mmol/L (96-108); Creatinine Clr Calc Pharmacy 20.3; Estimated Glomerular Filt Rate 20; Glucose Random 183 mg/dL (60-115); Potassium 4.3 mmol/L (3.3-5.1); Sodium 143 mmol/L (135-145); Total Protein 6.7 g/dL (6.5-8.0)
--- NOTE | 2023-03-02 03:45 | PC.NURSE ---
Pt A&Ox2, Pt reports 10/10 right sided lower back pain x 1 week. Pt able to ambulate to W/C to be transported to . Urine sample collected and sent to lab. Pt worried about family not being present after multiple calls.
[2023-03-02 04:14] LABS: Appearance Urine Clear; Color Urine Yellow; Glucose Urine UA Negative (Negative); Leukocyte Esterase Urine Trace (Negative); Nitrite Urine Negative (Negative); PH 6.5 (5.0-9.0); UMIC TRIGGER UACC YES; Urine Blood Negative (Negative); Urine Ketones Negative (Negative); Urine Protein Negative (Neg-Trace)
--- NOTE | 2023-03-02 04:24 | ED_ITS ---
HPI - General Adult General Chief complaint: Back Pain/Injury Stated complaint: Fall Time Seen by Provider: 03/02/23 04:13 Source: patient Mode of arrival: EMS Limitations: no limitations History of Present Illness HPI narrative: Patient comes to the emergency room complaining of 1 week of right flank pain. Patient denies hematuria or dysuria, no fever or chills. Patient states that she did not fall or sustain any injury. Patient does have history of renal colleagues in renal stents. Patient is by herself, patient called her daughter and asked her to call 911 for her. Patient denies chest pain or shortness of breath, no abdominal pain. At baseline, patient uses a walker. Patient still has she is able to walk but it is very painful to do so over the right flank. Related Data Home Medications Medication Instructions Recorded Confirmed albuterol sulfate 2.5 mg/3 mL 1 amp inhalation QID PRN Wheezing 09/06/22 12/25/22 (0.083 %) solution for nebulization alendronate 70 mg tablet 1 tab PO REESE 09/06/22 12/25/22 blood sugar diagnostic ([facility] 09/06/22 10/23/22 Verio test strips) [facility] Verio Flex Meter) diltiazem HCl 180 mg 1 cap PO DAILY 09/06/22 12/25/22 capsule,extended release 24 hr (Cartia XT) ferrous sulfate 325 mg (65 mg 1 tab PO Q OTHER DAY 09/06/22 12/25/22 iron) tablet (FeroSul) fluticasone 250 mcg-salmeterol 50 1 puff inhalation BID 09/06/22 12/25/22 mcg/dose blistr powdr for inhalation (Advair Diskus) fluticasone propionate 50 2 spray intranasal DAILY 09/06/22 12/25/22 mcg/actuation nasal spray,suspension furosemide 80 mg tablet 1 tab PO BIDWM 09/06/22 12/25/22 lancets 33 gauge (OneTouch Delica 09/06/22 10/23/22 Plus Lancet) tramadol 50 mg tablet 1 tab PO TID PRN pain 09/06/22 12/25/22 albuterol sulfate 90 mcg/actuation 2 puff inhalation Q4-6H PRN 10/23/22 12/25/22 aerosol inhaler (Ventolin HFA) Wheezing atorvastatin 80 mg tablet 80 mg PO DAILY 10/23/22 12/25/22 carvedilol 3.125 mg tablet 3.125 mg PO BID 10/23/22 12/25/22 losartan 100 mg tablet 100 mg PO DAILY 10/23/22 12/25/22 metformin 850 mg tablet 850 mg PO BIDWM 10/23/22 12/25/22 triamcinolone acetonide 0.1 % 1 appl topical BID 12/19/22 12/25/22 topical cream Previous Rx's Medication Instructions Recorded famotidine 20 mg tablet 20 mg PO BID #180 tabs 10/27/22 simethicone 125 mg capsule (Gas 125 mg PO TID-QID PRN Indigestion 11/18/22 Relief Extra Strength) #120 caps apixaban 5 mg tablet (Eliquis) 5 mg PO BID #60 tabs 12/27/22 cefuroxime axetil 250 mg tablet 250 mg PO BID 10 days #20 tabs 01/02/23 oxybutynin chloride 5 mg tablet 5 mg PO Q8H PRN bladder spasms #20 01/02/23 tabs tamsulosin 0.4 mg capsule (Flomax) 0.4 mg PO DAILY #14 caps 01/02/23 docusate sodium 100 mg capsule 100 mg PO BID #180 caps 01/19/23 hydrocortisone 2.5 % topical cream 1 appl [place] BID-QID PRN hemorrhoids 01/19/23 with perineal applicator #30 grams (Proctosol HC) methylcellulose (laxative) 500 mg 500 mg PO DAILY #90 tabs 01/19/23 tablet (Fiber Laxative (methylcellulose)) sennosides 8.6 mg tablet (senna) 8.6 mg PO BID PRN constipation 01/19/23 #180 tabs Allergies Allergy/AdvReac Type Severity Reaction Status Date / Time montelukast [Singulair] Allergy Unknown itching/marysol Verified 01/19/23 10:17 h From Singulair Allergy Intermediate RASH Uncoded 01/19/23 10:17 Review of Systems Review of Systems: Constitutional : No Weight loss, No Fever, No Chills, No Night Sweats, No Fatigue, No Malaise ENT/Mouth : No Hearing loss, No Ear Pain, No Nasal Congestion, No Sinus Pain, No Hoarseness, No sore throat, No Rhinorrhea, No Swallowing Difficulty Eyes: No Eye Pain, No Swelling, No Redness, No Foreign Body, No Discharge, No Vision Changes Cardiovascular : No Chest Pain, No SOB, No Dyspnea on Exertion, No Orthopnea, No Edema, No Palpitations Respiratory : No Cough, No Sputum, No Wheezing, No Smoke Exposure, No Dyspnea Gastrointestinal : No Nausea, No Vomiting, No Diarrhea, No Constipation, No abdominal Pain, No Hematochezia, No Melena Genitourinary : no irregular bleeding, No Dysuria, No Urinary Frequency, No Hematuria, No Urinary Incontinence, No Urgency, complaining of right Flank Pain, No Urinary Flow Changes, No Hesitancy Musculoskeletal : No joint pain, No Myalgias, No Joint Swelling Skin : No Skin Lesions, No rash Neuro : No Weakness, No Numbness, No Paresthesias, No Loss of Consciousness, No Dizziness, No Headache Psych : No Anxiety/Panic, No Depression, No SI/HI/AH/VH, No Social Issues, Heme/Lymph: No Bruising, No Bleeding,No Lymphadenopathy Endocrine : No Polyuria, No Polydipsia, No Temperature Intolerance [facility] Past Medical History Medical History Alcohol abuse Arthritis Asthma Asymmetrical thyroid Atrial fibrillation CHF (congestive heart failure) COPD (chronic obstructive pulmonary disease) Diabetes Gout Hypertension Hypertension Knee arthropathy Nephrolithiasis Osteoarthritis Renal cyst, acquired, left Thrombosed external hemorrhoid Surgical History (Updated 02/09/23 @ 13:24 by Sachi Gómez CMA) History of total knee arthroplasty Hx of colonoscopy Social History Social History Household Members: Children Household Members Other:: DAUGHTER Housing: Apartment Housing Other:: low income housing Do you presently have visiting nurse or other home services: No Unable to assess alcohol history related to: Unknown Alcohol intake: never Patient Tobacco Use Status: Never used Tobacco Smoked in Last 30 Days: No e-Cigarette/Vaping Use: Never Used Second Hand Smoke Exposure: No Use of substances other than those prescribed or required for medical reasons: No Advance Directives: Yes Advance Directives on File: Yes Advance Directives Date on File: 09/07/22 service: No Current occupational status: unemployed Physical Exam ED Vital Signs: Vital Signs - 24 hr 03/02/23 01:27 03/02/23 04:03 03/02/23 04:58 Temperature 98.4 F 97.8 F Pulse Rate 100 114 H 107 H Respiratory Rate 22 H 37 H 26 H Blood Pressure 176/84 H 169/86 H 183/86 H Pulse Oximetry 96 90 L 95 Oxygen Delivery Method Room Air Room Air Nasal Cannula Oxygen Flow Rate 2 03/02/23 04:40 03/02/23 06:30 03/02/23 06:00 Temperature Pulse Rate 121 H 114 H 146 H Respiratory Rate 28 H 38 H 34 H Blood Pressure 168/84 H Pulse Oximetry 98 91 L Oxygen Delivery Method BiPAP Nasal Cannula Oxygen Flow Rate 3 03/02/23 06:34 03/02/23 07:36 Temperature Pulse Rate 129 H Respiratory Rate 33 H 34 H Blood Pressure 159/81 H Pulse Oximetry 98 Oxygen Delivery Method Nasal Cannula Oxygen Flow Rate 3 BMI result Body Mass Index 36.6 Const Other: Appearance: Alert. Oriented X3. No acute distress. Eyes: Pupils equal, round and reactive to light. ENT: Pharynx normal. Neck: Normal inspection. Neck supple. No lymph nodes noted. No crepitus CVS: Irregularly irregular, heart rate in the 130s. Pulses normal. Normal S1 and S2 Respiratory: No respiratory distress. Breath sounds normal. No Wheezing. No rales Abdomen: Soft and nontender. No rigidity. No distention. Back: Pain to palpation over the posterior inferior aspect of the back/flank pain on the right Skin: Skin warm and dry. Normal skin color. Normal skin turgor. Extremities: No lower extremity edema. No Lacerations. No Rash Neuro: Oriented X 3. No motor deficit. No sensory deficit. Moving all extremities. No slurred speech. CN 2 through 12 grossly intact Psych: calm, cooperative, normal affect Course Course Course Narrative: -patient's labs and imaging pending. -patient's heart rate between 100 and 130, patient states she did take her medications earlier yesterday. Patient will be given 1 dose of IV Cardizem Medications Administered Discontinued Medications Generic Name Dose Route Start Last Admin Trade Name Freq PRN Reason Stop Dose Admin Diltiazem HCl 10 mg 03/02/23 04:24 03/02/23 04:44 Diltiazem Hcl 50 Mg/10 Ml Vial IVPUSH 03/02/23 04:25 10 mg STAT STA Administration Diltiazem HCl 10 mg 03/02/23 05:54 03/02/23 06:04 Diltiazem Hcl 50 Mg/10 Ml Vial IVPUSH 03/02/23 05:55 10 mg STAT STA Administration Sodium Chloride 500 mls @ 999 mls/hr 03/02/23 04:21 03/02/23 05:30 Ns IVCONT 03/02/23 04:51 Infused .Q31M ONE Infusion Lorazepam 1 mg 03/02/23 05:32 03/02/23 05:37 Lorazepam 2 Mg/Ml Vial IVPUSH 03/02/23 05:33 1 mg STAT STA Administration Medical Decision Making Medical Decision Making [facility] Narrative: -patient received 10 mg IV of Cardizem for AFib with RVR. -EKG interpreted by me, atrial fibrillation, RVR, heart rate 117, Mrs. Segment depressions or elevations, no T-wave inversions, QTC 457 -patient has acute kidney injury, creatinine 2.35. Patient to our group but will do so slowly, patient has history of CHF. Patient received 500 mL of fluid. However, this increase in creatinine is likely secondary to obstruction -when patient was on the CT scan, patient became very anxious, short of breath. Patient hyperventilated, nearly became unresponsive. Patient was put on BiPAP for an hour, weaned off, doing well, now on nasal cannula, alert and oriented x3, speaking in full sentences. -CT scan of the abdomen pelvis my interpretation, severe hydronephrosis bilatera lly, no stones. Discussed the CT scan findings with Dr. Tellez, aware the patient will be admitted. He will be consulting. Recommends to start a Johnson catheter. -I discussed the patient with the hospitalist team. Patient will need admission. -sign-out given to Dr. Taylor, pt pending admission Differential Diagnosis Differential Diagnoses: The differential diagnosis associated with the presentation includes (CHF exacerbation, pneumonia, COVID) Admission/Observation Consideration of admission/observation: Escalation of care including admission/observation considered Consult Healthcare Provider Management of the patient was discussed with: Hospitalist and Actuarial [employer] Teacher Lab Data [facility] Lab Attestation statement: I reviewed the patient's lab results. 03/02/23 02:42 03/02/23 02:42 Labs: Lab Results 03/02/23 03/02/23 03/02/23 Range/Units 02:42 02:42 02:42 WBC 5.0 (4.8-10.8) X10*3/uL RBC 3.51 L (4.20-5.50) X10*6/uL Hgb 9.7 L (12.0-16.0) g/dl Hct 30.9 L (37.0-47.0) % MCV 88.0 (80.0-98.0) fL MCH 27.6 (27.0-33.0) pg MCHC 31.4 (31.0-35.0) g/dl RDW 14.6 (11.0-16.0) % Plt Count 274 (160-400) X10*3/uL MPV 9.6 (9.4-12.3) fL Immature Gran % (Auto) 0.4 (0.0-0.4) % Neut % (Auto) 67.0 (45-73) % Lymph % (Auto) 16.2 L (20-40) % Pen[place] % (Auto) 10.0 (2-11) % Eos % (Auto) 5.4 H (0-4) % Baso % (Auto) 1.0 (0-2) % Lymph # (Auto) 0.8 L (1.2-4.9) X10*3/uL [place] # (Auto) 0.5 (0.1-1.2) X10*3/uL Eos # (Auto) 0.3 (0.0-0.4) X10*3/uL Baso # (Auto) 0.1 (0.0-0.2) X10*3/uL Abs Immat Gran (auto) 0.02 (0.00-0.03) X10*3/uL Absolute Neuts (auto) 3.4 (2.0-8.3) x10*3/uL Absolute Nucleated RBC 0.000 (0.0-0.012) X10*3/uL Nucleated RBC % (auto) 0.0 (0.0-0.2) /100WBC Sodium 143 (135-145) mmol/L Potassium 4.3 (3.3-5.1) mmol/L Chloride 104 (96-108) mmol/L Carbon Dioxide 28 (22-29) mmol/L Anion Gap 15 (12-20) BUN 35 H (9-16) mg/dL Creatinine 2.35 H (0.5-1.4) mg/dL Estim Creat Clear Calc 20.3 Estimated GFR 20 Random Glucose 183 H (60-115) mg/dL Calcium 9.1 (8.4-10.2) mg/dL Total Bilirubin 0.6 (0.0-1.0) mg/dL AST 27 (5-31) U/L ALT 26 (0-31) U/L Alkaline Phosphatase 97 (39-117) U/L Troponin I High Sens (<3.5-17.0) ng/L B-Natriuretic Peptide 332 H (<100) pg/mL Total Protein 6.7 (6.5-8.0) g/dL Albumin 4.0 (3.5-5.0) g/dL Urine Color Urine Appearance Urine pH (5.0-9.0) Ur Specific Orr (1.005-1.025) Urine Protein (Neg-Trace) mg/dL Urine Glucose (UA) (Negative) mg/dL Urine Ketones (Negative) mg/dL Urine Blood (Negative) Urine Nitrite (Negative) Ur Leukocyte Esterase (Negative) Urine RBC (0-2) /HPF Urine WBC (0-5) /HPF Ur Squamous Epith Cells (0-2) /HPF Urine Bacteria (None Seen) Hyaline Casts (0-2) /LPF Ethyl Alcohol < 10 mg/dL 03/02/23 03/02/23 Range/Units 04:05 04:30 WBC (4.8-10.8) X10*3/uL RBC (4.20-5.50) X10*6/uL Hgb (12.0-16.0) g/dl Hct (37.0-47.0) % MCV (80.0-98.0) fL MCH (27.0-33.0) pg MCHC (31.0-35.0) g/dl RDW (11.0-16.0) % Plt Count (160-400) X10*3/uL MPV (9.4-12.3) fL Immature Gran % (Auto) (0.0-0.4) % Neut % (Auto) (45-73) % Lymph % (Auto) (20-40) % Penning[place] % (Auto) (2-11) % Eos % (Auto) (0-4) % Baso % (Auto) (0-2) % Lymph # (Auto) (1.2-4.9) X10*3/uL [place] # (Auto) (0.1-1.2) X10*3/uL Eos # (Auto) (0.0-0.4) X10*3/uL Baso # (Auto) (0.0-0.2) X10*3/uL Abs Immat Gran (auto) (0.00-0.03) X10*3/uL Absolute Neuts (auto) (2.0-8.3) x10*3/uL Absolute Nucleated RBC (0.0-0.012) X10*3/uL Nucleated RBC % (auto) (0.0-0.2) /100WBC Sodium (135-145) mmol/L Potassium (3.3-5.1) mmol/L Chloride (96-108) mmol/L Carbon Dioxide (22-29) mmol/L Anion Gap (12-20) BUN (9-16) mg/dL Creatinine (0.5-1.4) mg/dL Estim Creat Clear Calc Estimated GFR Random Glucose (60-115) mg/dL Calcium (8.4-10.2) mg/dL Total Bilirubin (0.0-1.0) mg/dL AST (5-31) U/L ALT (0-31) U/L Alkaline Phosphatase (39-117) U/L Troponin I High Sens 24.9 H D (<3.5-17.0) ng/L B-Natriuretic Peptide (<100) pg/mL Total Protein (6.5-8.0) g/dL Albumin (3.5-5.0) g/dL Urine Color Yellow Urine Appearance Clear Urine pH 6.5 (5.0-9.0) Ur Specific Orr 1.010 (1.005-1.025) Urine Protein Negative (Neg-Trace) mg/dL Urine Glucose (UA) Negative (Negative) mg/dL Urine Ketones Negative (Negative) mg/dL Urine Blood Negative (Negative) Urine Nitrite Negative (Negative) Ur Leukocyte Esterase Trace H (Negative) Urine RBC 0-2 (0-2) /HPF Urine WBC 0-5 (0-5) /HPF Ur Squamous Epith Cells 0-2 (0-2) /HPF Urine Bacteria None Seen (None Seen) Hyaline Casts 0-2 (0-2) /LPF Ethyl Alcohol mg/dL Radiology Impression Discussion of test interpretation with radiology: I have reviewed the radio logist's reading. Radiologist Impression: FINDINGS: Limited evaluation in some regions due to motion artifact. LUNG BASES: Trace pleural effusions.? LIVER, GALLBLADDER, AND BILIARY TREE: The liver is normal in size, shape, and attenuation. No focal hepatic lesion or biliary ductal dilatation is identified. Gallbladder is not well evaluated due to motion artifact.? PANCREAS: Unremarkable.? SPLEEN: Unremarkable.? ADRENAL GLANDS: Unremarkable.? KIDNEYS AND URETERS: There has been interval removal of ureteral stents since 01/02/2023. There is severe right hydronephrosis with abrupt transition to normal caliber ureter; though this region is suboptimally assessed due to motion artifact, no obstructing calculus is seen. There is also severe left-sided hydronephrosis with similar abrupt transition to a normal caliber ureter at the ureteropelvic junction, with no obstructing calculus seen. Redemonstrated prominent left renal cysts; no follow-up recommended. Redemonstrated left lower pole renal calculi. BLADDER: Mildly distended and grossly unremarkable.? GASTROINTESTINAL TRACT: Colonic diverticulosis is noted. The small and large bowel are otherwise unremarkable without evidence of obstruction or pericolonic inflammatory change. No free fluid or free air is seen. ABDOMINAL WALL: No significant hernia is appreciated.? LYMPH NODES: Normal. VASCULAR: Scattered atherosclerotic calcifications. PELVIC VISCERA: Patient is status post hysterectomy.? OSSEOUS STRUCTURES: Degenerative changes are noted in the spine.? CT/CT abdomen pelvis wo IV con IMPRESSION: 1.? Severe bilateral hydronephrosis with abrupt transition to normal caliber ureters in keeping with the UPJ obstructions. Appearance is significantly worsened from 01/02/2023, with interval removal of ureteral stents. 2.? Redemonstrated left lower pole renal calculi. 3.? Trace pleural effusions. ? Critical Care Time Critical Care Time Critical Care Time: Yes Total Critical Care Time: 120 Attestation: I have personally provided critical care time. Time includes review of lab data, radiology results, discussion with consultants, and monitoring for potential decompensation. Intervention performed as documented. Discharge Plan Discharge Clinical Impression: Atrial fibrillation with RVR, Hydronephrosis, Acute kidney injury, Acute respiratory distress, Anxiety Patient Disposition: Home, Self-Care Prescriptions: No Action simethicone [Gas Relief Extra Strength] 125 mg capsule 125 mg PO TID-QID PRN (Reason: Indigestion) Qty: 120 3RF fluticasone propion-salmeterol [Advair Diskus] 250-50 mcg/dose blister with device 1 puff INHALATION BID albuterol sulfate 2.5 mg /3 mL (0.083 %) solution for nebulization 1 amp inhalation QID PRN (Reason: Wheezing) (DME) blood-glucose meter [[address] Flex meter] [facility] MISCELLANEOUS DIRECTED diltiazem HCl [Cartia XT] 180 mg capsule,extended release 24hr 1 cap PO DAILY alendronate 70 mg tablet 1 tab PO REESE (DME) [employer] test strips Strip MISCELLANEOUS BID tramadol 50 mg tablet 1 tab PO TID PRN (Reason: pain) furosemide 80 mg tablet 1 tab PO BIDWM ferrous sulfate [FeroSul] 325 mg (65 mg iron) tablet 1 tab PO Q OTHER DAY fluticasone propionate 50 mcg/actuation spray,suspension 2 spray intranasal DAILY (DME) lancets [FinalCADuch Delica Plus Lancet] 33 gauge [facility] MISCELLANEOUS BID cefuroxime axetil 250 mg tablet 250 mg PO BID 10 Days Qty: 20 0RF tamsulosin [Flomax] 0.4 mg capsule 0.4 mg PO DAILY Qty: 14 0RF oxybutynin chloride 5 mg tablet 5 mg PO Q8H PRN (Reason: bladder spasms) Qty: 20 0RF triamcinolone acetonide 0.1 % cream 1 appl topical BID Eliquis 5 mg tablet 5 mg PO BID Qty: 60 0RF famotidine 20 mg tablet 20 mg PO BID Qty: 180 2RF docusate sodium 100 mg capsule 100 mg PO BID Qty: 180 3RF Fiber Laxative (methylcellulo) 500 mg tablet 500 mg PO DAILY Qty: 90 2RF sennosides [senna] 8.6 mg tablet 8.6 mg PO BID PRN (Reason: constipation) Qty: 180 2RF hydrocortisone [Proctosol HC] 2.5 % cream with perineal applicator 1 appl [place] BID-QID PRN (Reason: hemorrhoids) Qty: 30 2RF losartan 100 mg tablet 100 mg PO DAILY carvedilol 3.125 mg tablet 3.125 mg PO BID metformin 850 mg tablet 850 mg PO BIDWM atorvastatin 80 mg tablet 80 mg PO DAILY albuterol sulfate [Ventolin HFA] 90 mcg/actuation HFA aerosol inhaler 2 puff inhalation Q4-6H PRN (Reason: Wheezing)
[2023-03-02 04:25] LABS: Bacteria Urine None Seen (None Seen); Hyaline Casts Urine 0-2 /LPF (0-2); RBC Urine 0-2 /HPF (0-2); Squamous Epithelial Cell Urine 0-2 /HPF (0-2); WBC Urine 0-5 /HPF (0-5)
[2023-03-02] MEDS: dilTIAZem HCL 50 MG/10 ML VIAL 10 MG IVPUSH ×2 (04:44→06:04)
[2023-03-02] MEDS: 0.9 % Sodium Chloride 500 ML 999 ML IVCONT (04:55)
[2023-03-02 04:56] LABS: Ethanol < 10 mg/dL
[2023-03-02 04:57] LABS: Troponin-I High Sensitivity 24.9 ng/L (<3.5-17.0)
[2023-03-02 05:01] LABS: B Type Natriuretic Peptide 332 pg/mL (<100)
[2023-03-02] MEDS: LORazepam 2 MG/ML VIAL 1 MG IVPUSH (05:37)
--- NOTE | 2023-03-02 05:41 | PC.NURSE ---
Pt back from Ct scan, very anxious, stating I can't breath, I need air , Pt reassured, instructed on breathing exercises. Sat o2 96% on 2L, RR 30, tachycardic on bedside monitor. Dr. Chavez aware, new order given. Med given as documented.
--- NOTE | 2023-03-02 06:15 | PC.NURSE ---
Pt pulled IV line out, new line placed. Pt diaphoretic, tachypneic, retracting, Sat 02 91% on 3L NC. Dr. Chavez notified and at bedside. Respiratory therapist notified and Pt placed on Bipap.
[2023-03-02] MEDS: dilTIAZem HCL 125 MG in 0.9 % Sodium Chloride 100 ML 10 MG IVCONT (07:52)
--- NOTE | 2023-03-02 07:57 | PC.NURSE ---
Pt taken off bipap with provider and this RN, started at 6L nasal cannula, now at 3L. Johnson catheter placed, pt tolerated well. Pt restless in bed, repositioned multiple times to keep patient off side and sitting up
--- NOTE | 2023-03-02 08:11 | PHA.MEDREC ---
Pharmacy Consult ? Medication Reconciliation Pharmacy has completed the medication reconciliation. Patient picks up from [facility]
--- NOTE | 2023-03-02 10:53 | PC.NURSE ---
Pt appears to be sleeping in room, hr 80-100 with cardizem drip infusing.
--- NOTE | 2023-03-02 12:01 | PM.IMHP ---
History of Present Illness Date of Service: 03/02/23 Attending physician on admission: Layo Nieves Chief Complaint: left flank pain 78 year old female with hisotry of noninsulin dependent type 2 diabetes, htn, asthma/copd overlap, chronic atrial fibrillation anticoagulated with eliquis, history etoh abuse, and history nephrolithiasis with recent admission 12/25-18 for bilateral obstructive uropathy with removal on 01/08 presented to ED early this am via EMS for evaluation of right flank pain ongoing for 1 week. No associated fevers, chills, nausea, vomiting, dysuria, decreased urinary output. No trauma. Has history renal colic and stent placement. On arrival, mild tachypnia 22, hypertensive to 176/84, afebrile. However, when she was taken for CT scan developed suspected panic attach with significant tachypnea to 37, tachycardia 121-146 in afib with oximetry 90%. CXR shoulder mildly prominent central vasculature without overt edema and subsegmental right basilar atelectasis. CT abdomen/pelvis shows severe bilateral hydronephrosis with abrupt transition to normal caliber ureters keeping with the UPJ obstructions, significantly worsened from prior imaging studies with interval removal of ureteral stents. There is read demonstrated left lower pole renal calculi trace pleural effusions. There is no leukocytosis. H/H 9.7/30.9% with normal MCV. Creatinine 2.35, baseline 0.89. BUN 35. Electrolyte levels normal. Urinalysis unremarkable except for trace leukocytes. EKG showing AFib with RVR, rate 117. In the ED, given 10 mg IV push Cardizem x2 and then placed on Cardizem drip per protocol. She was also give 1 mg IV push lorazepam. She was also placed on bipap for an hour due to the hyperventilation and weaned off with good improvement in respiratory distress. ED discussed case with urology who will follow patient. Review of Systems Review of Systems: General: No fevers, malaise, unintentional weight loss HEENT: No blurred vision, diplopia. No sore throat, nasal congestion, rhinorrhea, sinus pain, ear pain Cardiovascular: No chest pain, palpitations, or leg edema Respiratory: +sob. No wheezing, cough GI: No abdominal pain, nausea, vomiting, diarrhea, constipation, melena, hematochezia : +right flank pain. No dysuria, hematuria, increased urinary frequency, decreased urinary output MSK: No myalgia, back pain Neuro: No headaches, weakness, paresthesias Skin: No rashes or lesions [facility] Medical History (Updated 03/03/23 @ 11:23 by Radha Zepeda MD) Alcohol abuse Arthritis Asthma Asymmetrical thyroid Atrial fibrillation CHF (congestive heart failure) COPD (chronic obstructive pulmonary disease) Diabetes Gout Hypertension Knee arthropathy Nephrolithiasis Obstruction, uropathy Osteoarthritis Renal cyst, acquired, left Thrombosed external hemorrhoid Surgical History History of total knee arthroplasty Hx of colonoscopy Social History Household Members: None Household Members Other:: DAUGHTER Housing: Apartment Housing Other:: low income housing Do you presently have visiting nurse or other home services: No Unable to assess alcohol history related to: Unknown Alcohol intake: never Patient Tobacco Use Status: Never used Tobacco Smoked in Last 30 Days: No e-Cigarette/Vaping Use: Never Used Second Hand Smoke Exposure: No Use of substances other than those prescribed or required for medical reasons: No Currently Displaying Signs/Symptoms of Drug Intoxication Withdrawal: No Have you been hit, kicked, punched, or otherwise hurt by someone within the past year? If so, by whom?: No Do you feel safe in your current relationship?: Yes Is there a partner from a previous relationship who is making you feel unsafe now?: No Are you made to feel afraid or neglected: No Are you DNR?: No Advance Directives: Yes Advance Directives on File: Yes Advance Directives Date on File: 09/07/22 Do you have thoughts of harming others: None Do you have a plan to hurt others: No Plan Recently lost weight without trying: Unsure Nutrition Risks: No Nutritional Risk Patient : No : No service: No Current occupational status: disabled Meds Allergies Allergy/AdvReac Type Severity Reaction Status Date / Time montelukast [Singulair] Allergy Unknown itching/marysol Verified 01/19/23 10:17 h From Singulair Allergy Intermediate RASH Uncoded 01/19/23 10:17 Active Medications: Current Medications Diltiazem HCl 125 mg/ Sodium (Chloride) 125 mls @ 0 mls/hr IVCONT .Q0M [facility]; Protocol Last Admin: 03/02/23 07:52 Dose: 10 mg/hr, 10 mls/hr Pharmacy Consult (Consult Rx Perform Med Rec) 1 each MISCELLANE ONCE PRN PRN Reason: Consult order Home Medications Medication Instructions Recorded Confirmed Last Taken Type albuterol sulfate 2.5 mg/3 mL 1 amp inhalation QID PRN Wheezing 09/06/22 03/02/23 12/19/22 History (0.083 %) solution for nebulization alendronate 70 mg tablet 1 tab PO REESE 09/06/22 03/02/23 12/14/22 History blood sugar diagnostic ([facility] 09/06/22 10/23/22 Unknown History Verio test strips) blood-glucose meter ([facility] 09/06/22 10/23/22 Unknown History Verio Flex Meter) diltiazem HCl 180 mg 1 cap PO DAILY 09/06/22 03/02/23 12/19/22 History capsule,extended release 24 hr (Cartia XT) ferrous sulfate 325 mg (65 mg 1 tab PO Q OTHER DAY 09/06/22 03/02/23 12/24/22 History iron) tablet (FeroSul) fluticasone 250 mcg-salmeterol 50 1 puff inhalation BID 09/06/22 03/02/23 12/19/22 History mcg/dose blistr powdr for inhalation (Advair Diskus) furosemide 80 mg tablet 1 tab PO BIDWM 09/06/22 03/02/23 12/19/22 History lancets 33 gauge ([facility] Delica 09/06/22 10/23/22 Unknown History Plus Lancet) tramadol 50 mg tablet 1 tab PO TID PRN pain 09/06/22 03/02/23 Unknown History albuterol sulfate 90 mcg/actuation 2 puff inhalation Q4-6H PRN 10/23/22 03/02/23 Unknown History aerosol inhaler (Ventolin HFA) Wheezing atorvastatin 80 mg tablet 80 mg PO DAILY 10/23/22 03/02/23 12/19/22 History carvedilol 3.125 mg tablet 3.125 mg PO BID 10/23/22 03/02/23 12/19/22 History losartan 100 mg tablet 100 mg PO DAILY 10/23/22 03/02/2323 History metformin 850 mg tablet 850 mg PO BIDWM 10/23/22 03/02/23 12/18/22 History aspirin 81 mg tablet,delayed 81 mg PO DAILY 03/02/23 03/02/23 Unknown History release pyridoxine (vitamin B6) 100 mg 100 mg PO DAILY 03/02/23 03/02/23 Unknown History tablet Physical Exam Vital Signs and Narrative: Vital Signs: Last Vital Signs Temp 97.7 F 03/02/23 11:38 Pulse 110 H 03/02/23 11:38 Resp 35 H 03/02/23 11:38 BP 168/97 H 03/02/23 11:38 Pulse Ox 99 03/02/23 11:38 O2 Del Method Nasal Cannula 03/02/23 11:38 O2 Flow Rate 3 03/02/23 11:38 BMI result Body Mass Index 36.6 Constitutional - Awake and Alert, mild apparent distress Eyes - PERRLA, EOMI Cardiovascular - S1S2, RRR, No edema Respiratory - Normal lung expansion, mild respiratory distress on 3L supplemental O2, diminished bilaterally but no wheezes, rales, rhonchi Gastrointestinal - NT / ND; +BS; No rebound or guarding - +right CVA tenderness Extremities - no calf tenderness bilaterally, no swelling Skin - Warm/Dry Neurological - Alert & oriented x3 Psychological - Appropriate affect Results Labs 03/02/23 02:42 03/02/23 02:42 Labs: Laboratory Results - last 24 hr 03/02/23 03/02/23 03/02/23 02:42 02:42 02:42 MCV 88.0 MCH 27.6 MCHC 31.4 RDW 14.6 Plt Count 274 MPV 9.6 Immature Gran % (Auto) 0.4 Neut % (Auto) 67.0 Lymph % (Auto) 16.2 L [place] % (Auto) 10.0 Eos % (Auto) 5.4 H Baso % (Auto) 1.0 Lymph # (Auto) 0.8 L [place] # (Auto) 0.5 Eos # (Auto) 0.3 Baso # (Auto) 0.1 Abs Immat Gran (auto) 0.02 Absolute Neuts (auto) 3.4 Absolute Nucleated RBC 0.000 Nucleated RBC % (auto) 0.0 Anion Gap 15 Estim Creat Clear Calc 20.3 Estimated GFR 20 Random Glucose 183 H Calcium 9.1 Total Bilirubin 0.6 AST 27 ALT 26 Alkaline Phosphatase 97 Troponin I High Sens B-Natriuretic Peptide 332 H Total Protein 6.7 Albumin 4.0 Urine Color Urine Appearance Urine pH Ur Specific [place] Urine Protein Urine Glucose (UA) Urine Ketones Urine Blood Urine Nitrite Ur Leukocyte Esterase Urine RBC Urine WBC Ur Squamous Epith Cells Urine Bacteria Hyaline Casts Ethyl Alcohol < 10 03/02/23 03/02/23 04:05 04:30 MCV MCH MCHC RDW Plt Count MPV Immature Gran % (Auto) Neut % (Auto) Lymph % (Auto) [place] % (Auto) Eos % (Auto) Baso % (Auto) Lymph # (Auto) [place] # (Auto) Eos # (Auto) Baso # (Auto) Abs Immat Gran (auto) Absolute Neuts (auto) Absolute Nucleated RBC Nucleated RBC % (auto) Anion Gap Estim Creat Clear Calc Estimated GFR Random Glucose Calcium Total Bilirubin AST ALT Alkaline Phosphatase Troponin I High Sens 24.9 H D B-Natriuretic Peptide Total Protein Albumin Urine Color Yellow Urine Appearance Clear Urine pH 6.5 Ur Specific [place] 1.010 Urine Protein Negative Urine Glucose (UA) Negative Urine Ketones Negative Urine Blood Negative Urine Nitrite Negative Ur Leukocyte Esterase Trace H Urine RBC 0-2 Urine WBC 0-5 Ur Squamous Epith Cells 0-2 Urine Bacteria None Seen Hyaline Casts 0-2 Ethyl Alcohol Imaging Radiologist's Impressions: Impressions Chest X-Ray 03/02/23 05:10 IMPRESSION: Mildly prominent central vasculature without overt edema. Subsegmental right basilar atelectasis. Abdomen/Pelvis CT 03/02/23 05:37 IMPRESSION: 1. Severe bilateral hydronephrosis with abrupt transition to normal caliber ureters in keeping with the UPJ obstructions. Appearance is significantly worsened from 01/02/2023, with interval removal of ureteral stents. 2. Redemonstrated left lower pole renal calculi. 3. Trace pleural effusions. Assessment and Plan (1) Atrial fibrillation with RVR: Status: Acute (2) Obstruction, uropathy: Status: Acute Plan 78 year old female with history of noninsulin dependent type 2 diabetes, htn, asthma/copd overlap, chronic atrial fibrillation anticoagulated with eliquis, history etoh abuse, and history nephrolithiasis with recent admission 12/25- for bilateral obstructive uropathy with removal on 3/2 admitted for bilateral obstructive uropathy. #Acute kidney injury due to Obstructive uropathy -Creat 2.35 -Urology consult -Johnson catheter in place, monitor I&O -Ua negative -Pain management prn -ondansetron prn -Repeat BMP now, Follow BMP #Atrial fibrillation with RVR -continue cardizem drip per protocol -Hold PO dilt at this time. Continue coreg -Hold eliquis for now -Appreciate cardiology input -Monitor on telemetry #Acute dyspnea -likely related to panic attack, pain -ABG normal, no hypoxia -Repeat CXR unchanged #HFpEF- no acute exacerbation -continue PO lasix #Chronic normocytic anemia -H/H decreased since eliquis initiated last admission -H/H above transfusion threshold -Iron studies pending. Denies bleeding #Anxiety/panic attack -Given lorazepam in ED -Consider Psych eval if no improvement #Asthma/COPD overlap -no acute exacerbation -continue home inhalers #HTN -Hold losartan in setting ORION -Continue addl home meds DVT prophylaxis- on eliquis Full code Patient requires inpatient stay of at least 2 midnights for management of obstructive uropathy requiring expert consultation and probable surgical intervention as well as management atrial fibrillation with RVR. Time Spent With Patient Time: Total time managing care of this patient today ____ minutes. Quality Stroke Does the patient have a stroke diagnosis?: No VTE Prior VTE?: No VTE Risk Level:: Medical - moderate - high VTE Device Contraindication: Treatment Not Indicated VTE Drug Contraindication: N/A - Med Ordered
--- NOTE | 2023-03-02 12:15 | PC.NURSE ---
Pt continues to complain of discomfort with the vance, vance is in place draining properly. Pt moved to recliner for comfort.
[2023-03-02 12:35] LABS: ABG Base Excess -0.4 mmol/L; ABG HCO3 23 mmol/L (22-26); ABG pCO2 37 mmHg (32-45); ABG pH 7.41 (7.35-7.45); ABG pO2 90 mmHg (83-108)
[2023-03-02 13:02] LABS: Iron 31 mcg/dL (30-160); Percent Iron Saturation 12 % (15-50); Total Iron Binding Capacity 266 mcg/dL (228-428); Unsaturated Iron Binding 235 ug/dL
[2023-03-02 13:24] LABS: Ferritin 325 ng/mL (10-250)
[2023-03-02 13:32] LABS: ABG Refer to POC result
[2023-03-02 13:50] LABS: Anion Gap 17 (12-20); Blood Urea Nitrogen 32 mg/dL (9-16); Calcium 9.3 mg/dL (8.4-10.2); Carbon Dioxide 23 mmol/L (22-29); Chloride 108 mmol/L (96-108); Creatinine Clr Calc Pharmacy 22.2; Estimated Glomerular Filt Rate 22; Glucose Random 214 mg/dL (60-115); Potassium 4.3 mmol/L (3.3-5.1); Sodium 144 mmol/L (135-145)
[2023-03-02 15:07] LABS: B Type Natriuretic Peptide 666 pg/mL (<100)
--- NOTE | 2023-03-02 15:23 | P.EN_ITS ---
Event Note Date of Service: 03/02/23 Event Note: This patient is seen and examined with APC. Patient came to the hospital because of right flank pain, and subsequently become short of breath and tachycardic tachypneic in the a CT scan when she was due to the CT scan : Patient was briefly placed on BiPAP, a shortness of breath seems to improved Initially patient received pain control and IV fluid in the ED Lab imaging, EKG reviewed. BNP elevated from baseline, chest x-ray shows somewhat congestion, EKG seems s imilar to before Troponin seems to be elevated but seems better than previous values( last admission). In addition patient was also found to have AFib with RVR for that patient is already on Cardizem drip. Physical exam and assessment and plan coordinated in APCs note, Agree with the plan in addition: Chest exam: Air entry slightly diminished at bases the few scattered rhonchi but did not any hear any rales Has some leg edema 1+ Assessment plan coordinated already in H&P note Will add cardiology evaluation and echo, continue Cardizem drip, may need IV Lasix since patient clinical picture seems like mild CHF,, echo, also urology consult for possible obstructive uropathy/ORION. Time Spent With Patient Time: Total time managing care of this patient today ____ minutes.
[2023-03-02] MEDS: Furosemide 40 MG/4 ML VIAL IVPUSH (15:49)
[2023-03-02] MEDS: 0.9 % Sodium Chloride Flush 3 ML SYRINGE IVFLUSH ×2 (15:50→20:34)
--- NOTE | 2023-03-02 15:53 | PM.CNCAR ---
History of Present Illness History of Present Illness Date of Service: 03/02/23 Requesting physician: Layo Nieves Chief complaint: Obstructive Uropathy Afib RVR Narrative: 78-year-old female who we have been asked to help with management of atrial fibrillation. She has history of obstructive uropathy with previous ureteral stents with removal in the past who is presenting now with bilateral hydronephrosis and AFib with RVR. She is a poor historian and despite using shop technician the history is limited. She is describing a pressure-like feeling in the chest and back of the neck. She has panic attacks and significant ascites issues and was seen in December by Cardiology and at that time it was felt that her anxiety is playing a kerr role in her symptoms. She was started on Cardizem drip in the ER with good control of heart rate and improvement in symptoms. Chest x-ray showing concern for congestive heart failure. She also has acute kidney injury with worsening bilateral hydronephrosis after removal of the ureteral stents and will be seen by Urology. She is on apixaban at home. She also takes carvedilol and diltiazem at home along with furosemide b.i.d.. [facility] Past Medical History Medical History (Updated 03/02/23 @ 13:11 by CLAIRE Perez) Alcohol abuse Arthritis Asthma Asymmetrical thyroid Atrial fibrillation CHF (congestive heart failure) COPD (chronic obstructive pulmonary disease) Diabetes Gout Hypertension Hypertension Knee arthropathy Nephrolithiasis Obstruction, uropathy Osteoarthritis Renal cyst, acquired, left Thrombosed external hemorrhoid Surgical History Surgical History (Updated 02/09/23 @ 13:24 by Sachi Gómez CMA) History of total knee arthroplasty Hx of colonoscopy Social History Social History Household Members: None Household Members Other:: DAUGHTER Housing: Apartment Housing Other:: low income housing Do you presently have visiting nurse or other home services: No Unable to assess alcohol history related to: Unknown Alcohol intake: never Patient Tobacco Use Status: Never used Tobacco Smoked in Last 30 Days: No e-Cigarette/Vaping Use: Never Used Second Hand Smoke Exposure: No Use of substances other than those prescribed or required for medical reasons: No Currently Displaying Signs/Symptoms of Drug Intoxication Withdrawal: No Have you been hit, kicked, punched, or otherwise hurt by someone within the past year? If so, by whom?: No Do you feel safe in your current relationship?: Yes Is there a partner from a previous relationship who is making you feel unsafe now?: No Are you made to feel afraid or neglected: No Advance Directives: Yes Advance Directives on File: Yes Advance Directives Date on File: 09/07/22 Do you have thoughts of harming others: None Do you have a plan to hurt others: No Plan Recently lost weight without trying: Unsure Nutrition Risks: No Nutritional Risk Patient : No : No service: No Current occupational status: unemployed Meds Allergies Allergy/AdvReac Type Severity Reaction Status Date / Time montelukast [Singulair] Allergy Unknown itching/marysol Verified 01/19/23 10:17 h From Singulair Allergy Intermediate RASH Uncoded 01/19/23 10:17 Active Medications: Current Medications Acetaminophen (Acetaminophen 325 Mg Tablet) 650 mg PO Q6H PRN PRN Reason: Pain, Mild (Pain Scale 1-3) Albuterol Sulfate (Albuterol Sulfate (0.083%) 2.5 Mg/3 Ml Vial.Walter) 2.5 mg INHALE QID PRN PRN Reason: Wheezing Albuterol Sulfate (Albuterol Sulfate 90 Mcg 8 Gm Inhaler) 2 puff INHALE Q4H PRN PRN Reason: Wheezing Apixaban (Apixaban 5 Mg Tablet) 5 mg PO BID [facility] Aspirin (Aspirin Enteric Coated 81 Mg Tablet.) 81 mg PO DAILY [facility] Atorvastatin Calcium (Atorvastatin Calcium 80 Mg Tablet) 80 mg PO DAILY [facility] Calcium Polycarbophil (Calcium Polycarbophil Tablet) 1 tab PO DAILY [facility] Carvedilol (Carvedilol 3.125 Mg Tablet) 3.125 mg PO BID [facility]; Protocol Docusate Sodium (Docusate Sodium 100 Mg Capsule) 100 mg PO BID [facility] Famotidine (Famotidine 20 Mg Tablet) 20 mg PO BID [facility] Ferrous Sulfate (Ferrous Sulfate 324 Mg Tablet.) 324 mg PO Q48H [facility] Fluticasone/Vilanterol (Fluticasone/Vilanterol 100/25 Blst.W.Dev) 1 puff INHALE RDAILY [facility] Furosemide (Furosemide 40 Mg/4 Ml Vial) 40 mg IVPUSH DAILY [facility]; Protocol Glucose (Glucose Gel 15 Gm Gel..Gram.) 15 gm PO Q15M PRN; Protocol PRN Reason: per Hypoglycemia Standing Ord. Hydrocortisone (Hydrocortisone 2.5 % Rectal Cr 30 Gm Tube) 1 appl MS QID PRN PRN Reason: hemorrhoids Diltiazem HCl 125 mg/ Sodium (Chloride) 125 mls @ 0 mls/hr IVCONT .Q0M [facility]; Protocol Last Admin: 03/02/23 07:52 Dose: 10 mg/hr, 10 mls/hr Dextrose (D10) 250 mls @ 750 mls/hr IV Q15M PRN; Protocol PRN Reason: per Hypoglycemia Standing Ord. Insulin Human Lispro (Insulin Lispro 100 Unit/Ml 3 Ml Vial) 0 unit SUBCUT QIDACHS [facility]; Protocol Morphine Sulfate (Morphine Sulfate 2 Mg/Ml Cartridge) 2 mg IM Q6H PRN; Protocol PRN Reason: Pain, Severe (Pain Scale 7-10) Ondansetron HCl (Ondansetron Hcl 4 Mg/2 Ml Vial) 4 mg IVPUSH Q8H PRN PRN Reason: Nausea and Vomiting Pharmacy Consult (Consult Rx Perform Med Rec) 1 each MISCELLANE ONCE PRN PRN Reason: Consult order Pyridoxine HCl (Pyridoxine Hcl (Vitamin B6) 50 Mg Tablet) 100 mg PO DAILY [facility] Senna (Sennosides 8.6 Mg Tablet) 8.6 mg PO BID PRN PRN Reason: constipation Simethicone (Simethicone 80 Mg Tab.Chew) 160 mg PO QID PRN PRN Reason: Indigestion Sodium Chloride (0.9 % Sodium Chloride Flush 3 Ml Syringe) 3 ml IVFLUSH QSHIFT [facility] Last Admin: 03/02/23 15:50 Dose: 3 ml Tramadol HCl (Tramadol Hcl 50 Mg Tablet) 50 mg PO TID PRN PRN Reason: Pain, Moderate (Pain Scale 4-6 Home Medications Medication Instructions Recorded Confirmed Last Taken Type albuterol sulfate 2.5 mg/3 mL 1 amp inhalation QID PRN Wheezing 09/06/22 03/02/23 12/19/22 History (0.083 %) solution for nebulization alendronate 70 mg tablet 1 tab PO REESE 09/06/22 03/02/23 12/14/22 History blood sugar diagnostic (OneTouch 09/06/22 10/23/22 Unknown History Verio test strips) blood-glucose meter (OneTouch 09/06/22 10/23/22 Unknown History Verio Flex Meter) diltiazem HCl 180 mg 1 cap PO DAILY 09/06/22 03/02/23 12/19/22 History capsule,extended release 24 hr (Cartia XT) ferrous sulfate 325 mg (65 mg 1 tab PO Q OTHER DAY 09/06/22 03/02/23 12/24/22 History iron) tablet (FeroSul) fluticasone 250 mcg-salmeterol 50 1 puff inhalation BID 09/06/22 03/02/23 12/19/22 History mcg/dose blistr powdr for inhalation (Advair Diskus) furosemide 80 mg tablet 1 tab PO BIDWM 09/06/22 03/02/23 12/19/22 [facility] 09/06/22 10/23/22 Unknown History Plus Lancet) tramadol 50 mg tablet 1 tab PO TID PRN pain 09/06/22 03/02/23 Unknown History albuterol sulfate 90 mcg/actuation 2 puff inhalation Q4-6H PRN 10/23/22 03/02/23 Unknown History aerosol inhaler (Ventolin HFA) Wheezing atorvastatin 80 mg tablet 80 mg PO DAILY 10/23/22 03/02/23 12/19/22 History carvedilol 3.125 mg tablet 3.125 mg PO BID 10/23/22 03/02/23 12/19/22 History losartan 100 mg tablet 100 mg PO DAILY 10/23/22 03/02/23 12/19/22 History metformin 850 mg tablet 850 mg PO BIDWM 10/23/22 03/02/23 12/18/22 History aspirin 81 mg tablet,delayed 81 mg PO DAILY 03/02/23 03/02/23 Unknown History release pyridoxine (vitamin B6) 100 mg 100 mg PO DAILY 03/02/23 03/02/23 Unknown History tablet Physical Exam Vital Signs: Vital Signs: Last Vital Signs Temp 96.8 F 03/02/23 15:41 Pulse 85 03/02/23 15:41 Resp 20 03/02/23 15:41 BP 162/81 H 03/02/23 15:41 Pulse Ox 97 03/02/23 15:41 O2 Del Method Room Air 03/02/23 15:41 O2 Flow Rate 3 03/02/23 11:38 BMI result Body Mass Index 36.6 GENERAL APPEARANCE: in no acute distress, pleasant. On supplemental oxygen. NECK: no carotid bruit, + jugular venous distention. SKIN: no suspicious lesions, warm and dry. HEART: no murmurs, irregular rate and rhythm. LUNGS: Diminished at bases with few crackles. ABDOMEN: soft, nontender. EXTREMITIES: Mild edema. PERIPHERAL PULSES: equal. NEUROLOGIC: No gross deficits, AAO X 3 Objective Labs and Meds 03/02/23 02:42 03/02/23 13:27 Lab results: Laboratory Results - last 24 hr 03/02/23 03/02/23 03/02/23 02:42 02:42 02:42 WBC 5.0 RBC 3.51 L Hgb 9.7 L Hct 30.9 L MCV 88.0 MCH 27.6 MCHC 31.4 RDW 14.6 Plt Count 274 MPV 9.6 Immature Gran % (Auto) 0.4 Neut % (Auto) 67.0 Lymph % (Auto) 16.2 L [place] % (Auto) 10.0 Eos % (Auto) 5.4 H Baso % (Auto) 1.0 Lymph # (Auto) 0.8 L [place] # (Auto) 0.5 Eos # (Auto) 0.3 Baso # (Auto) 0.1 Abs Immat Gran (auto) 0.02 Absolute Neuts (auto) 3.4 Absolute Nucleated RBC 0.000 Nucleated RBC % (auto) 0.0 O2 Saturation ABG pH at Pt Temp ABG pCO2 at Pt Temp ABG pO2 at Pt Temp ABG HCO3 ABG Base Excess (Actual) Sodium 143 Potassium 4.3 Chloride 104 Carbon Dioxide 28 Anion Gap 15 BUN 35 H Creatinine 2.35 H Estim Creat Clear Calc 20.3 Estimated GFR 20 Random Glucose 183 H Calcium 9.1 Iron 31 TIBC 266 % Saturation 12 L Unsat Iron Binding 235 Ferritin 325 H Total Bilirubin 0.6 AST 27 ALT 26 Alkaline Phosphatase 97 Troponin I High Sens B-Natriuretic Peptide 332 H Total Protein 6.7 Albumin 4.0 Urine Color Urine Appearance Urine pH Ur Specific [place] Urine Protein Urine Glucose (UA) Urine Ketones Urine Blood Urine Nitrite Ur Leukocyte Esterase Urine RBC Urine WBC Ur Squamous Epith Cells Urine Bacteria Hyaline Casts Ethyl Alcohol < 10 04/03/02/23 03/02/23 04:05 04:30 12:05 WBC RBC Hgb Hct MCV MCH MCHC RDW Plt Count MPV Immature Gran % (Auto) Neut % (Auto) Lymph % (Auto) [place] % (Auto) Eos % (Auto) Baso % (Auto) Lymph # (Auto) [place] # (Auto) Eos # (Auto) Baso # (Auto) Abs Immat Gran (auto) Absolute Neuts (auto) Absolute Nucleated RBC Nucleated RBC % (auto) O2 Saturation ABG pH at Pt Temp ABG pCO2 at Pt Temp ABG pO2 at Pt Temp ABG HCO3 ABG Base Excess (Actual) Sodium Potassium Chloride Carbon Dioxide Anion Gap BUN Creatinine Estim Creat Clear Calc Estimated GFR Random Glucose Calcium Iron TIBC % Saturation Unsat Iron Binding Ferritin Total Bilirubin AST ALT Alkaline Phosphatase Troponin I High Sens 24.9 H D B-Natriuretic Peptide 666 H Total Protein Albumin Urine Color Yellow Urine Appearance Clear Urine pH 6.5 Ur Specific [place] 1.010 Urine Protein Negative Urine Glucose (UA) Negative Urine Ketones Negative Urine Blood Negative Urine Nitrite Negative Ur Leukocyte Esterase Trace H Urine RBC 0-2 Urine WBC 0-5 Ur Squamous Epith Cells 0-2 Urine Bacteria None Seen Hyaline Casts 0-2 Ethyl Alcohol 03/02/23 03/02/23 12:27 13:27 WBC RBC Hgb Hct MCV MCH MCHC RDW Plt Count MPV Immature Gran % (Auto) Neut % (Auto) Lymph % (Auto) [place] % (Auto) Eos % (Auto) Baso % (Auto) Lymph # (Auto) [place] # (Auto) Eos # (Auto) Baso # (Auto) Abs Immat Gran (auto) Absolute Neuts (auto) Absolute Nucleated RBC Nucleated RBC % (auto) O2 Saturation 97.0 ABG pH at Pt Temp 7.41 ABG pCO2 at Pt Temp 37 ABG pO2 at Pt Temp 90 ABG HCO3 23 ABG Base Excess (Actual) -0.4 Sodium 144 Potassium 4.3 Chloride 108 Carbon Dioxide 23 Anion Gap 17 BUN 32 H Creatinine 2.15 H Estim Creat Clear Calc 22.2 Estimated GFR 22 Random Glucose 214 H Calcium 9.3 Iron TIBC % Saturation Unsat Iron Binding Ferritin Total Bilirubin AST ALT Alkaline Phosphatase Troponin I High Sens B-Natriuretic Peptide Total Protein Albumin Urine Color Urine Appearance Urine pH Ur Specific [place] Urine Protein Urine Glucose (UA) Urine Ketones Urine Blood Urine Nitrite Ur Leukocyte Esterase Urine RBC Urine WBC Ur Squamous Epith Cells Urine Bacteria Hyaline Casts Ethyl Alcohol Imaging Radiologist's impression: Impressions Chest X-Ray 03/02/23 05:10 IMPRESSION: Mildly prominent central vasculature without overt edema. Subsegmental right basilar atelectasis. Abdomen/Pelvis CT 03/02/23 05:37 IMPRESSION: 1. Severe bilateral hydronephrosis with abrupt transition to normal caliber ureters in keeping with the UPJ obstructions. Appearance is significantly worsened from 01/02/2023, with interval removal of ureteral stents. 2. Redemonstrated left lower pole renal calculi. 3. Trace pleural effusions. Chest X-Ray 03/02/23 12:28 IMPRESSION: Increased central bronchovascular markings. Differential would include mild pulmonary edema and airways disease. Clinical correlation recommended. Assessment and Plan (1) Atrial fibrillation with RVR: Status: Acute Plan 78-year-old female with bilateral hydronephrosis, acute kidney injury and AFib with RVR. She also has congestive heart failure currently. She complained of some chest discomfort and ECG has mild ST depressions present with AFib with RVR. With rate controlled she is feeling better and I think the ECG changes are due to tachycardia. Obviously, at her age underlying coronary disease cannot be ruled out but clearly her symptoms are due to AFib with RVR right now. Give 1 time dose of furosemide IV. Monitor I's and O's closely. She needs urology input for the hydronephrosis. Hold apixaban as she may need treatment for hydronephrosis. Continue the Coreg at the same dose. Currently she is on 10 milligram/hour of diltiazem and heart rates are in 80s. I think she can be changed to diltiazem CD 240 mg p.o. daily and drip can be stopped. We will follow along with you. Thank you for allowing me to participate in the care of your patient. Please feel free to contact me if you have any questions. Time Spent With Patient Time: Total time managing care of this patient today ____ minutes. Procedures Date of Service Date of Service: 03/02/23
[2023-03-02] MEDS: Insulin Lispro 100 UNIT/ML 3 ML VIAL SUBCUT (16:51)
[2023-03-02 16:58] LABS: Glucose, Whole Blood 180 mg/dL (60-115)
[2023-03-02] MEDS: dilTIAZem HCL CD 240 MG CAP.ER.DEG PO (18:28)
[2023-03-02 20:11] LABS: Glucose, Whole Blood 129 mg/dL (60-115)
[2023-03-02] MEDS: carvediloL 3.125 MG TABLET PO (20:32)
[2023-03-02] MEDS: Docusate Sodium 100 MG CAPSULE PO (20:32)
[2023-03-02] MEDS: Famotidine 20 MG TABLET PO (20:32)
[2023-03-03] VITALS (13 sets, daily range): BP systolic 119–175; BP diastolic 59–87; PULSE 58–88; RESP 17–21; TEMP 35.8–36.7; O2SAT 91–97
[2023-03-03] MEDS: traMADoL HCL 50 MG TABLET PO ×2 (01:34→22:35)
[2023-03-03 07:21] LABS: Glucose, Whole Blood 143 mg/dL (60-115)
[2023-03-03 07:26] LABS: MANUAL DIFF FLAG NO
[2023-03-03 07:42] LABS: Basophils Absolute Auto 0.1 X10*3/uL (0.0-0.2); Basophils Percent Auto 0.9 % (0-2); Eosinophils Absolute Auto 0.3 X10*3/uL (0.0-0.4); Hematocrit 28.8 % (37.0-47.0); Hemoglobin 9.1 g/dl (12.0-16.0); Imm Gran Abs Auto 0.02 X10*3/uL (0.00-0.03); Imm Gran Pct Auto 0.4 % (0.0-0.4); Lymphocytes Absolute Auto 1.1 X10*3/uL (1.2-4.9); Mean Corpuscular HGB Conc 31.6 g/dl (31.0-35.0); Mean Corpuscular Hemoglobin 27.7 pg (27.0-33.0); Mean Corpuscular Volume 87.5 fL (80.0-98.0); Mean Platelet Volume 10.6 fL (9.4-12.3); Monocytes Absolute Auto 0.6 X10*3/uL (0.1-1.2); Monocytes Percent Auto 11.2 % (2-11); Neutrophils Absolute Auto 3.4 x10*3/uL (2.0-8.3); Neutrophils Percent Auto 62.5 % (45-73); Platelet Count 269 X10*3/uL (160-400); Red Blood Count 3.29 X10*6/uL (4.20-5.50); Red Cell Distribution Width 14.6 % (11.0-16.0); White Blood Count 5.5 X10*3/uL (4.8-10.8)
[2023-03-03 07:57] LABS: Anion Gap 14 (12-20); Blood Urea Nitrogen 28 mg/dL (9-16); Carbon Dioxide 27 mmol/L (22-29); Chloride 106 mmol/L (96-108); Creatinine Clr Calc Pharmacy 26.1; Estimated Glomerular Filt Rate 27; Glucose Random 149 mg/dL (60-115); Potassium 3.9 mmol/L (3.3-5.1); Sodium 143 mmol/L (135-145)
[2023-03-03] MEDS: Fluticasone/Vilanterol 100/25 BLST.W.DEV 1 PUFF INHALE (08:09)
[2023-03-03] MEDS: Ferrous Sulfate 324 MG TABLET.DR PO (08:30)
[2023-03-03] MEDS: Famotidine 20 MG TABLET PO ×2 (08:30→22:32)
[2023-03-03] MEDS: calcium polycarbophiL TABLET 1 TAB PO (08:30)
[2023-03-03] MEDS: Atorvastatin Calcium 80 MG TABLET PO (08:30)
[2023-03-03] MEDS: Docusate Sodium 100 MG CAPSULE PO ×2 (08:31→22:33)
[2023-03-03] MEDS: Pyridoxine HCl (Vitamin B6) 50 MG TABLET 100 MG PO (08:31)
[2023-03-03] MEDS: carvediloL 3.125 MG TABLET PO ×2 (08:31→22:33)
--- NOTE | 2023-03-03 08:31 | PM.UROCN ---
History of Present Illness Consult details Consult date: 03/03/23 Narrative: 78 year old female with hisotry of noninsulin dependent type 2 diabetes, htn, asthma/copd overlap, chronic atrial fibrillation anticoagulated with eliquis, history etoh abuse, and history nephrolithiasis with recent admission 12/25- for bilateral obstructive uropathy. The patient had bilateral stents placed at that time with improvement in renal function. Ureteral stents were removed on 01/08/22. She presented to ED early this am via EMS for evaluation of right flank pain ongoing for 1 week. No associated fevers, chills, nausea, vomiting, dysuria, decreased urinary output. No trauma. There is no leukocytosis.? H/H 9.7/30.9% with normal MCV.? Creatinine 2.35, baseline 0.89.? BUN 35.? Electrolyte levels normal.? Urinalysis unremarkable except for trace leukocytes.? CT abdomen/pelvis shows severe bilateral hydronephrosis with abrupt transition to normal caliber ureters keeping with the UPJ obstructions, significantly worsened from prior imaging studies with interval removal of ureteral stents.? I discussed plan to place stents today with her son -in-law translating. Review of Systems Review of Systems: 10 point ROS negative other than stated in HPI [facility] Past Medical History Medical History (Updated 03/02/23 @ 13:11 by CLAIRE Perez) Alcohol abuse Arthritis Asthma Asymmetrical thyroid Atrial fibrillation CHF (congestive heart failure) COPD (chronic obstructive pulmonary disease) Diabetes Gout Hypertension Hypertension Knee arthropathy Nephrolithiasis Obstruction, uropathy Osteoarthritis Renal cyst, acquired, left Thrombosed external hemorrhoid Surgical History Surgical History (Updated 02/09/23 @ 13:24 by Sachi Gómez CMA) History of total knee arthroplasty Hx of colonoscopy Social History Social History Household Members: None Household Members Other:: DAUGHTER Housing: Apartment Housing Other:: low income housing Do you presently have visiting nurse or other home services: No Unable to assess alcohol history related to: Unknown Alcohol intake: never Patient Tobacco Use Status: Never used Tobacco e-Cigarette/Vaping Use: Never Used Second Hand Smoke Exposure: No Advance Directives Date on File: 09/07/22 service: No Current occupational status: unemployed Meds Allergies Allergy/AdvReac Type Severity Reaction Status Date / Time montelukast [Singulair] Allergy Unknown itching/marysol Verified 01/19/23 10:17 h From Singulair Allergy Intermediate RASH Uncoded 01/19/23 10:17 Active Medications: Current Medications Acetaminophen (Acetaminophen 325 Mg Tablet) 650 mg PO Q6H PRN PRN Reason: Pain, Mild (Pain Scale 1-3) Albuterol Sulfate (Albuterol Sulfate (0.083%) 2.5 Mg/3 Ml Vial.Neb) 2.5 mg INHALE QID PRN PRN Reason: Wheezing Albuterol Sulfate (Albuterol Sulfate 90 Mcg 8 Gm Inhaler) 2 puff INHALE Q4H PRN PRN Reason: Wheezing Atorvastatin Calcium (Atorvastatin Calcium 80 Mg Tablet) 80 mg PO DAILY [facility] Calcium Polycarbophil (Calcium Polycarbophil Tablet) 1 tab PO DAILY [facility] Carvedilol (Carvedilol 3.125 Mg Tablet) 3.125 mg PO BID [facility]; Protocol Last Admin: 03/02/23 20:32 Dose: 3.125 mg Diltiazem HCl (Diltiazem Hcl Cd 240 Mg Cap.Er.Deg) 240 mg PO DAILY [facility]; Protocol Last Admin: 03/02/23 18:28 Dose: 240 mg Docusate Sodium (Docusate Sodium 100 Mg Capsule) 100 mg PO BID [facility] Last Admin: 03/02/23 20:32 Dose: 100 mg Famotidine (Famotidine 20 Mg Tablet) 20 mg PO BID [facility] Last Admin: 03/02/23 20:32 Dose: 20 mg Ferrous Sulfate (Ferrous Sulfate 324 Mg Tablet.Dr) 324 mg PO Q48H [facility] Fluticasone/Vilanterol (Fluticasone/Vilanterol 100/25 Blst.W.Dev) 1 puff INHALE RDAILY [facility] Last Admin: 03/03/23 08:09 Dose: 1 puff Furosemide (Furosemide 40 Mg/4 Ml Vial) 40 mg IVPUSH DAILY [facility]; Protocol Glucose (Glucose Gel 15 Gm Gel..Gram.) 15 gm PO Q15M PRN; Protocol PRN Reason: per Hypoglycemia Standing Ord. Hydrocortisone (Hydrocortisone 2.5 % Rectal Cr 30 Gm Tube) 1 appl IN QID PRN PRN Reason: hemorrhoids Dextrose (D10) 250 mls @ 750 mls/hr IV Q15M PRN; Protocol PRN Reason: per Hypoglycemia Standing Ord. Insulin Human Lispro (Insulin Lispro 100 Unit/Ml 3 Ml Vial) 0 unit SUBCUT QIDACHS [facility]; Protocol Last Admin: 03/03/23 07:34 Dose: Not Given Morphine Sulfate (Morphine Sulfate 2 Mg/Ml Cartridge) 2 mg IM Q6H PRN; Protocol PRN Reason: Pain, Severe (Pain Scale 7-10) Ondansetron HCl (Ondansetron Hcl 4 Mg/2 Ml Vial) 4 mg IVPUSH Q8H PRN PRN Reason: Nausea and Vomiting Pharmacy Consult (Consult Rx Perform Med Rec) 1 each MISCELLANE ONCE PRN PRN Reason: Consult order Pyridoxine HCl (Pyridoxine Hcl (Vitamin B6) 50 Mg Tablet) 100 mg PO DAILY [facility] Senna (Sennosides 8.6 Mg Tablet) 8.6 mg PO BID PRN PRN Reason: constipation Simethicone (Simethicone 80 Mg Tab.Chew) 160 mg PO QID PRN PRN Reason: Indigestion Sodium Chloride (0.9 % Sodium Chloride Flush 3 Ml Syringe) 3 ml IVFLUSH QSHIFT [facility] Last Admin: 03/02/23 20:34 Dose: 3 ml Tramadol HCl (Tramadol Hcl 50 Mg Tablet) 50 mg PO TID PRN PRN Reason: Pain, Moderate (Pain Scale 4-6 Last Admin: 03/03/23 01:34 Dose: 50 mg Home Medications Medication Instructions Recorded Confirmed Last Taken Type albuterol sulfate 2.5 mg/3 mL 1 amp inhalation QID PRN Wheezing 09/06/22 03/02/23 12/19/22 History (0.083 %) solution for nebulization alendronate 70 mg tablet 1 tab PO REESE 09/06/22 03/02/23 12/14/22 History blood sugar diagnostic (OneTouch 09/06/22 10/23/22 Unknown History Verio test strips) blood-glucose meter (OneTouch 09/06/22 10/23/22 Unknown History Verio Flex Meter) diltiazem HCl 180 mg 1 cap PO DAILY 09/06/22 03/02/23 12/19/22 History capsule,extended release 24 hr (Cartia XT) ferrous sulfate 325 mg (65 mg 1 tab PO Q OTHER DAY 09/06/22 03/02/23 12/24/22 History iron) tablet (FeroSul) fluticasone 250 mcg-salmeterol 50 1 puff inhalation BID 09/06/22 03/02/23 12/19/22 History mcg/dose blistr powdr for inhalation (Advair Diskus) furosemide 80 mg tablet 1 tab PO BIDWM 09/06/22 03/02/23 12/19/22 History lancets 33 gauge (OneTouch Delica 09/06/22 10/23/22 Unknown History Plus Lancet) tramadol 50 mg tablet 1 tab PO TID PRN pain 09/06/22 03/02/23 Unknown History albuterol sulfate 90 mcg/actuation 2 puff inhalation Q4-6H PRN 10/23/22 03/02/23 Unknown History aerosol inhaler (Ventolin HFA) Wheezing atorvastatin 80 mg tablet 80 mg PO DAILY 10/23/22 03/02/23 12/19/22 History carvedilol 3.125 mg tablet 3.125 mg PO BID 10/23/22 03/02/23 12/19/22 History losartan 100 mg tablet 100 mg PO DAILY 10/23/22 03/02/23 12/19/22 History metformin 850 mg tablet 850 mg PO BIDWM 10/23/22 03/02/23 12/18/22 History aspirin 81 mg tablet,delayed 81 mg PO DAILY 03/02/23 03/02/23 Unknown History release pyridoxine (vitamin B6) 100 mg 100 mg PO DAILY 03/02/23 03/02/23 Unknown History tablet Physical Exam Vital Signs: Vital Signs: Last Vital Signs Temp 97.7 F 03/03/23 07:59 Pulse 87 03/03/23 08:13 Resp 18 03/03/23 08:13 BP 138/67 03/03/23 07:59 Pulse Ox 97 03/03/23 07:59 O2 Del Method Nasal Cannula 03/03/23 07:59 O2 Flow Rate 1 03/03/23 07:59 BMI result Body Mass Index 36.6 Const: General: cooperative and no acute distress Orientation/consciousness: patient oriented x3 HEENT: Head: Yes normal to inspection, Yes normocephalic and Yes atraumatic Eyes: Conjunctivae: conjunctivae normal Neck: Neck: Yes normal visual inspection and Yes trachea midline Chest: Chest palpation & inspection: normal inspection of the chest Resp: Effort & Inspection: normal respiratory effort Cardio: Rate: regular rate GI: Inspection: Yes normal to inspection Palpation (GI): Soft to palpation Skin: General skin exam: no rashes or lesions noted Neuro: General: patient oriented x3 Extrem: General: No edema Psych: Appearance: grossly normal Results Labs 03/03/23 06:38 03/03/23 06:38 Labs: Abnormal lab results 03/02/23 03/02/23 03/02/23 Range/Units 02:42 12:05 13:27 RBC (4.20-5.50) X10*6/uL Hgb (12.0-16.0) g/dl Hct (37.0-47.0) % Snyder % (Auto) (2-11) % Eos % (Auto) (0-4) % Lymph # (Auto) (1.2-4.9) X10*3/uL BUN 32 H (9-16) mg/dL Creatinine 2.15 H (0.5-1.4) mg/dL POC Glucose (60-115) mg/dL Random Glucose 214 H (60-115) mg/dL % Saturation 12 L (15-50) % Ferritin 325 H (10-250) ng/mL B-Natriuretic Peptide 666 H (<100) pg/mL 03/02/23 03/02/23 03/03/23 Range/Units 16:41 19:57 06:38 RBC 3.29 L (4.20-5.50) X10*6/uL Hgb 9.1 L (12.0-16.0) g/dl Hct 28.8 L (37.0-47.0) % Snyder % (Auto) 11.2 H (2-11) % Eos % (Auto) 5.0 H (0-4) % Lymph # (Auto) 1.1 L (1.2-4.9) X10*3/uL BUN (9-16) mg/dL Creatinine (0.5-1.4) mg/dL POC Glucose 180 H 129 H (60-115) mg/dL Random Glucose (60-115) mg/dL % Saturation (15-50) % Ferritin (10-250) ng/mL B-Natriuretic Peptide (<100) pg/mL 03/03/23 03/03/23 Range/Units 06:38 07:17 RBC (4.20-5.50) X10*6/uL Hgb (12.0-16.0) g/dl Hct (37.0-47.0) % Snyder % (Auto) (2-11) % Eos % (Auto) (0-4) % Lymph # (Auto) (1.2-4.9) X10*3/uL BUN 28 H (9-16) mg/dL Creatinine 1.83 H (0.5-1.4) mg/dL POC Glucose 143 H (60-115) mg/dL Random Glucose 149 H (60-115) mg/dL % Saturation (15-50) % Ferritin (10-250) ng/mL B-Natriuretic Peptide (<100) pg/mL Short CBC 03/03/23 Range/Units 06:38 WBC 5.5 (4.8-10.8) X10*3/uL Hgb 9.1 L (12.0-16.0) g/dl Hct 28.8 L (37.0-47.0) % Plt Count 269 (160-400) X10*3/uL BMP 03/02/23 03/03/23 13:27 06:38 Sodium 144 143 Potassium 4.3 3.9 Chloride 108 106 Carbon Dioxide 23 27 BUN 32 H 28 H Creatinine 2.15 H 1.83 H Calcium 9.3 9.0 Urine 03/02/23 Range/Units 04:05 Urine Color Yellow Urine Appearance Clear Urine pH 6.5 (5.0-9.0) Ur Specific [place] 1.010 (1.005-1.025) Urine Protein Negative (Neg-Trace) mg/dL Urine Glucose (UA) Negative (Negative) mg/dL All other labs normal. Imaging Abdomen CT scan report/results: report reviewed and image reviewed CT scan - pelvis: report reviewed and image reviewed Additional studies: Date of Service: 03/02/23 EXAMINATION: CT ABDOMEN AND PELVIS WITHOUT CONTRAST? CLINICAL INFORMATION: R flank pain hx stents? COMPARISON: 01/02/2023? TECHNIQUE: Multidetector volumetric imaging was performed from the superior aspect of the liver through the pubic symphysis. Sagittal and coronal reformatted images were obtained on the technologist's workstation.? This CT examination was performed using dose optimization techniques as appropriate, variously including the following: *Automated exposure control *Adjustment of mA and/or kV according to patient size (this includes techniques or standardized protocols for targeted exams where dose is matched to indication/reason for exam; i.e. extremities or head) *Use of iterative reconstruction technique DLP: 751 mGy-cm FINDINGS: Limited evaluation in some regions due to motion artifact. LUNG BASES: Trace pleural effusions.? LIVER, GALLBLADDER, AND BILIARY TREE: The liver is normal in size, shape, and attenuation. No focal hepatic lesion or biliary ductal dilatation is identified. Gallbladder is not well evaluated due to motion artifact.? PANCREAS: Unremarkable.? SPLEEN: Unremarkable.? ADRENAL GLANDS: Unremarkable.? KIDNEYS AND URETERS: There has been interval removal of ureteral stents since 01/02/2023. There is severe right hydronephrosis with abrupt transition to normal caliber ureter; though this region is suboptimally assessed due to motion artifact, no obstructing calculus is seen. There is also severe left-sided hydronephrosis with similar abrupt transition to a normal caliber ureter at the ureteropelvic junction, with no obstructing calculus seen. Redemonstrated prominent left renal cysts; no follow-up recommended. Redemonstrated left lower pole renal calculi. BLADDER: Mildly distended and grossly unremarkable.? GASTROINTESTINAL TRACT: Colonic diverticulosis is noted. The small and large bowel are otherwise unremarkable without evidence of obstruction or pericolonic inflammatory change. No free fluid or free air is seen. ABDOMINAL WALL: No significant hernia is appreciated.? LYMPH NODES: Normal. VASCULAR: Scattered atherosclerotic calcifications. PELVIC VISCERA: Patient is status post hysterectomy.? OSSEOUS STRUCTURES: Degenerative changes are noted in the spine.? IMPRESSION: 1.? Severe bilateral hydronephrosis with abrupt transition to normal caliber ureters in keeping with the UPJ obstructions. Appearance is significantly worsened from 01/02/2023, with interval removal of ureteral stents. 2.? Redemonstrated left lower pole renal calculi. 3.? Trace pleural effusions. Assessment and Plan (1) Hydronephrosis: Qualifiers: Hydronephrosis type: with ureteropelvic junction obstruction Qualified Code(s): Q62.11 - Congenital occlusion of ureteropelvic junction Status: Acute (2) ORION (acute kidney injury): Status: Resolved (3) Obstruction, uropathy: Status: Acute (4) Renal cyst, acquired, left: Status: Inactive (5) Kidney stone on left side: Status: Resolved Plan Cystoscopy, bilateral retrogrades, bilateral stents insertion Time Spent With Patient Time: Total time managing care of this patient today ____ minutes. Procedures Date of Service Date of Service: 03/03/23
[2023-03-03] MEDS: dilTIAZem HCL CD 240 MG CAP.ER.DEG PO (08:32)
[2023-03-03] MEDS: Furosemide 40 MG/4 ML VIAL IVPUSH (08:32)
--- NOTE | 2023-03-03 08:37 | MHC.CM.PN ---
Patient is unavailable; CM spoke with Daughter/HCP/[place] @ [phone] and addressed IMM with Daughter (original to be mailed certified letter and a copy will be placed on the chart). Patient lives alone but her Daughter/HCP/[place] lives next door and is Patient's [employer] and with her Mother most of the day. Home/resume said services is the goal and CM has initiated and will follow for dc planning. Patient has received Acustream/Novonics vax x2 and her PCP/[facility] is Carolyn motley @ [facility].
--- NOTE | 2023-03-03 09:59 | P.CONAN_ITS ---
HPI - Anesthesia Eval Consult details Narrative: 78 yo female patient for Cystoscopy, bilateral ureteroscopy, retrogrades and stent placement PMFSH Active Problems Active Problems: All Active Problems (Updated 03/02/23 @ 13:11 by CLAIRE Perez) Obstruction, uropathy (Acute) Atrial fibrillation with RVR (Acute) Hydronephrosis (Acute) Acute kidney injury (Acute) Acute respiratory distress (Acute) Anxiety (Acute) Diabetes (Acute) Trochanteric bursitis, right hip (Acute) COVID-19 (Acute) Pleural effusion (Acute) Hydronephrosis, bilateral (Acute) Varicose veins of right lower extremity with inflammation (Acute) Contusion of left lower leg (Acute) Thrombosed external hemorrhoid (Acute) Cystocele with rectocele (Acute) Gout (Acute) Asthma (Acute) Alcohol abuse (Acute) Nephrolithiasis (Acute) Past Medical History Medical History (Updated 03/03/23 @ 11:23 by Radha Zepeda MD) Alcohol abuse Arthritis Asthma Asymmetrical thyroid Atrial fibrillation CHF (congestive heart failure) COPD (chronic obstructive pulmonary disease) Diabetes Gout Hypertension Knee arthropathy Nephrolithiasis Obstruction, uropathy Osteoarthritis Renal cyst, acquired, left Thrombosed external hemorrhoid Family History Family history of problems with anesthesia: No Surgical History Surgical History History of total knee arthroplasty Hx of colonoscopy History of Problems with Anesthesia: No Social History Social History Household Members: None Household Members Other:: DAUGHTER Housing: Apartment Housing Other:: low income housing Do you presently have visiting nurse or other home services: No Unable to assess alcohol history related to: Unknown Alcohol intake: never Patient Tobacco Use Status: Never used Tobacco Smoked in Last 30 Days: No e-Cigarette/Vaping Use: Never Used Second Hand Smoke Exposure: No Use of substances other than those prescribed or required for medical reasons: No Currently Displaying Signs/Symptoms of Drug Intoxication Withdrawal: No Have you been hit, kicked, punched, or otherwise hurt by someone within the past year? If so, by whom?: No Do you feel safe in your current relationship?: Yes Is there a partner from a previous relationship who is making you feel unsafe now?: No Are you made to feel afraid or neglected: No Are you DNR?: No Advance Directives: Yes Advance Directives on File: Yes Advance Directives Date on File: 09/07/22 Do you have thoughts of harming others: None Do you have a plan to hurt others: No Plan Recently lost weight without trying: Unsure Nutrition Risks: No Nutritional Risk Patient : No : No service: No Current occupational status: disabled Meds Allergies Allergy/AdvReac Type Severity Reaction Status Date / Time montelukast [Singulair] Allergy Unknown itching/marysol Verified 01/19/23 10:17 h From Singulair Allergy Intermediate RASH Uncoded 01/19/23 10:17 Active Medications: Current Medications Acetaminophen (Acetaminophen 325 Mg Tablet) 650 mg PO Q6H PRN PRN Reason: Pain, Mild (Pain Scale 1-3) Albuterol Sulfate (Albuterol Sulfate (0.083%) 2.5 Mg/3 Ml Vial.Neb) 2.5 mg INHALE QID PRN PRN Reason: Wheezing Albuterol Sulfate (Albuterol Sulfate 90 Mcg 8 Gm Inhaler) 2 puff INHALE Q4H PRN PRN Reason: Wheezing Atorvastatin Calcium (Atorvastatin Calcium 80 Mg Tablet) 80 mg PO DAILY [facility] Last Admin: 03/03/23 08:30 Dose: 80 mg Calcium Polycarbophil (Calcium Polycarbophil Tablet) 1 tab PO DAILY [facility] Last Admin: 03/03/23 08:30 Dose: 1 tab Carvedilol (Carvedilol 3.125 Mg Tablet) 3.125 mg PO BID [facility]; Protocol Last Admin: 03/03/23 08:31 Dose: 3.125 mg Diltiazem HCl (Diltiazem Hcl Cd 240 Mg Cap.Er.Deg) 240 mg PO DAILY [facility]; Protocol Last Admin: 03/03/23 08:32 Dose: 240 mg Docusate Sodium (Docusate Sodium 100 Mg Capsule) 100 mg PO BID [facility] Last Admin: 03/03/23 08:31 Dose: 100 mg Famotidine (Famotidine 20 Mg Tablet) 20 mg PO BID [facility] Last Admin: 03/03/23 08:30 Dose: 20 mg Ferrous Sulfate (Ferrous Sulfate 324 Mg Tablet.Dr) 324 mg PO Q48H [facility] Last Admin: 03/03/23 08:30 Dose: 324 mg Fluticasone/Vilanterol (Fluticasone/Vilanterol 100/25 Blst.W.Dev) 1 puff INHALE RDAILY [facility] Last Admin: 03/03/23 08:09 Dose: 1 puff Furosemide (Furosemide 40 Mg/4 Ml Vial) 40 mg IVPUSH DAILY [facility]; Protocol Last Admin: 03/03/23 08:32 Dose: 40 mg Glucose (Glucose Gel 15 Gm Gel..Gram.) 15 gm PO Q15M PRN; Protocol PRN Reason: per Hypoglycemia Standing Ord. Hydrocortisone (Hydrocortisone 2.5 % Rectal Cr 30 Gm Tube) 1 appl [place] QID PRN PRN Reason: hemorrhoids Dextrose (D10) 250 mls @ 750 mls/hr IV Q15M PRN; Protocol PRN Reason: per Hypoglycemia Standing Ord. Insulin Human Lispro (Insulin Lispro 100 Unit/Ml 3 Ml Vial) 0 unit SUBCUT QIDACHS [facility]; Protocol Last Admin: 03/03/23 07:34 Dose: Not Given Morphine Sulfate (Morphine Sulfate 2 Mg/Ml Cartridge) 2 mg IM Q6H PRN; Protocol PRN Reason: Pain, Severe (Pain Scale 7-10) Ondansetron HCl (Ondansetron Hcl 4 Mg/2 Ml Vial) 4 mg IVPUSH Q8H PRN PRN Reason: Nausea and Vomiting Pharmacy Consult (Consult Rx Perform Med Rec) 1 each MISCELLANE ONCE PRN PRN Reason: Consult order Pyridoxine HCl (Pyridoxine Hcl (Vitamin B6) 50 Mg Tablet) 100 mg PO DAILY [facility] Last Admin: 03/03/23 08:31 Dose: 100 mg Senna (Sennosides 8.6 Mg Tablet) 8.6 mg PO BID PRN PRN Reason: constipation Simethicone (Simethicone 80 Mg Tab.Chew) 160 mg PO QID PRN PRN Reason: Indigestion Sodium Chloride (0.9 % Sodium Chloride Flush 3 Ml Syringe) 3 ml IVFLUSH QSHIFT [facility] Last Admin: 03/02/23 20:34 Dose: 3 ml Tramadol HCl (Tramadol Hcl 50 Mg Tablet) 50 mg PO TID PRN PRN Reason: Pain, Moderate (Pain Scale 4-6 Last Admin: 03/03/23 01:34 Dose: 50 mg Home Medications Medication Instructions Recorded Confirmed Last Taken Type albuterol sulfate 2.5 mg/3 mL 1 amp inhalation QID PRN Wheezing 10/29/22 04/24/23 02/10/23 History (0.083 %) solution for nebulization alendronate 70 mg tablet 1 tab PO REESE 09/06/22 03/02/23 12/14/22 History blood sugar diagnostic (Formerly [facility] 09/06/22 10/23/22 Unknown History Verio test strips) blood-glucose meter (Formerly [facility] 09/06/22 10/23/22 Unknown History Verio Flex Meter) diltiazem HCl 180 mg 1 cap PO DAILY 09/06/22 03/02/23 12/19/22 History capsule,extended release 24 hr (Cartia XT) ferrous sulfate 325 mg (65 mg 1 tab PO Q OTHER DAY 09/06/22 03/02/23 12/24/22 History iron) tablet (Frank) fluticasone 250 mcg-salmeterol 50 1 puff inhalation BID 09/06/22 03/02/23 12/19/22 History mcg/dose blistr powdr for inhalation (Advair Diskus) furosemide 80 mg tablet 1 tab PO BIDWM 09/06/22 03/02/23 12/19/22 History lancets 33 gauge (Formerly [facility] Delica 09/06/22 10/23/22 Unknown History Plus Lancet) tramadol 50 mg tablet 1 tab PO TID PRN pain 09/06/22 03/02/23 Unknown History albuterol sulfate 90 mcg/actuation 2 puff inhalation Q4-6H PRN 10/23/22 03/02/23 Unknown History aerosol inhaler (Ventolin HFA) Wheezing atorvastatin 80 mg tablet 80 mg PO DAILY 10/23/22 03/02/23 12/19/22 History carvedilol 3.125 mg tablet 3.125 mg PO BID 10/23/22 03/02/23 12/19/22 History losartan 100 mg tablet 100 mg PO DAILY 10/23/22 03/02/23 12/19/22 History metformin 850 mg tablet 850 mg PO BIDWM 10/23/22 03/02/23 12/18/22 History aspirin 81 mg tablet,delayed 81 mg PO DAILY 03/02/23 03/02/23 Unknown History release pyridoxine (vitamin B6) 100 mg 100 mg PO DAILY 03/02/23 03/02/23 Unknown History tablet Exam Exam Date and Time: March 03, 2023 0959 Height,Weight and Vital Signs: Height 5 ft 2 in Weight 90.718 kg Last Vital Signs Temp 97.6 F 03/03/23 09:00 Pulse 75 03/03/23 09:00 Resp 18 03/03/23 09:00 BP 175/86 H 03/03/23 09:00 Pulse Ox 94 03/03/23 09:00 O2 Del Method Nasal Cannula 03/03/23 09:00 O2 Flow Rate 1 03/03/23 09:00 Pertinent Lab Results Pertinent Lab Results: Laboratory Tests 03/02/23 03/02/23 03/02/23 02:42 02:42 02:42 WBC 5.0 RBC 3.51 L Hgb 9.7 L Hct 30.9 L MCV 88.0 MCH 27.6 MCHC 31.4 RDW 14.6 Plt Count 274 MPV 9.6 Immature Gran % (Auto) 0.4 Neut % (Auto) 67.0 Lymph % (Auto) 16.2 L [place] % (Auto) 10.0 Eos % (Auto) 5.4 H Baso % (Auto) 1.0 Lymph # (Auto) 0.8 L [place] # (Auto) 0.5 Eos # (Auto) 0.3 Baso # (Auto) 0.1 Abs Immat Gran (auto) 0.02 Absolute Neuts (auto) 3.4 Absolute Nucleated RBC 0.000 Nucleated RBC % (auto) 0.0 O2 Saturation ABG pH at Pt Temp ABG pCO2 at Pt Temp ABG pO2 at Pt Temp ABG HCO3 ABG Base Excess (Actual) Sodium 143 Potassium 4.3 Chloride 104 Carbon Dioxide 28 Anion Gap 15 BUN 35 H Creatinine 2.35 H Estim Creat Clear Calc 20.3 Estimated GFR 20 POC Glucose Random Glucose 183 H Calcium 9.1 Iron 31 TIBC 266 % Saturation 12 L Unsat Iron Binding 235 Ferritin 325 H Total Bilirubin 0.6 AST 27 ALT 26 Alkaline Phosphatase 97 Troponin I High Sens B-Natriuretic Peptide 332 H Total Protein 6.7 Albumin 4.0 Urine Color Urine Appearance Urine pH Ur Specific [place] Urine Protein Urine Glucose (UA) Urine Ketones Urine Blood Urine Nitrite Ur Leukocyte Esterase Urine RBC Urine WBC Ur Squamous Epith Cells Urine Bacteria Hyaline Casts Ethyl Alcohol < 10 03/02/23 03/02/23 03/02/23 04:05 04:30 12:05 WBC RBC Hgb Hct MCV MCH MCHC RDW Plt Count MPV Immature Gran % (Auto) Neut % (Auto) Lymph % (Auto) [place] % (Auto) Eos % (Auto) Baso % (Auto) Lymph # (Auto) [place] # (Auto) Eos # (Auto) Baso # (Auto) Abs Immat Gran (auto) Absolute Neuts (auto) Absolute Nucleated RBC Nucleated RBC % (auto) O2 Saturation ABG pH at Pt Temp ABG pCO2 at Pt Temp ABG pO2 at Pt Temp ABG HCO3 ABG Base Excess (Actual) Sodium Potassium Chloride Carbon Dioxide Anion Gap BUN Creatinine Estim Creat Clear Calc Estimated GFR POC Glucose Random Glucose Calcium Iron TIBC % Saturation Unsat Iron Binding Ferritin Total Bilirubin AST ALT Alkaline Phosphatase Troponin I High Sens 24.9 H D B-Natriuretic Peptide 666 H Total Protein Albumin Urine Color Yellow Urine Appearance Clear Urine pH 6.5 Ur Specific [place] 1.010 Urine Protein Negative Urine Glucose (UA) Negative Urine Ketones Negative Urine Blood Negative Urine Nitrite Negative Ur Leukocyte Esterase Trace H Urine RBC 0-2 Urine WBC 0-5 Ur Squamous Epith Cells 0-2 Urine Bacteria None Seen Hyaline Casts 0-2 Ethyl Alcohol 03/02/23 03/02/23 03/02/23 12:27 13:27 16:41 WBC RBC Hgb Hct MCV MCH MCHC RDW Plt Count MPV Immature Gran % (Auto) Neut % (Auto) Lymph % (Auto) [place] % (Auto) Eos % (Auto) Baso % (Auto) Lymph # (Auto) [place] # (Auto) Eos # (Auto) Baso # (Auto) Abs Immat Gran (auto) Absolute Neuts (auto) Absolute Nucleated RBC Nucleated RBC % (auto) O2 Saturation 97.0 ABG pH at Pt Temp 7.41 ABG pCO2 at Pt Temp 37 ABG pO2 at Pt Temp 90 ABG HCO3 23 ABG Base Excess (Actual) -0.4 Sodium 144 Potassium 4.3 Chloride 108 Carbon Dioxide 23 Anion Gap 17 BUN 32 H Creatinine 2.15 H Estim Creat Clear Calc 22.2 Estimated GFR 22 POC Glucose 180 H Random Glucose 214 H Calcium 9.3 Iron TIBC % Saturation Unsat Iron Binding Ferritin Total Bilirubin AST ALT Alkaline Phosphatase Troponin I High Sens B-Natriuretic Peptide Total Protein Albumin Urine Color Urine Appearance Urine pH Ur Specific [place] Urine Protein Urine Glucose (UA) Urine Ketones Urine Blood Urine Nitrite Ur Leukocyte Esterase Urine RBC Urine WBC Ur Squamous Epith Cells Urine Bacteria Hyaline Casts Ethyl Alcohol 03/02/23 03/03/23 03/03/23 19:57 06:38 06:38 WBC 5.5 RBC 3.29 L Hgb 9.1 L Hct 28.8 L MCV 87.5 MCH 27.7 MCHC 31.6 RDW 14.6 Plt Count 269 MPV 10.6 Immature Gran % (Auto) 0.4 Neut % (Auto) 62.5 Lymph % (Auto) 20.0 [place] % (Auto) 11.2 H Eos % (Auto) 5.0 H Baso % (Auto) 0.9 Lymph # (Auto) 1.1 L [place] # (Auto) 0.6 Eos # (Auto) 0.3 Baso # (Auto) 0.1 Abs Immat Gran (auto) 0.02 Absolute Neuts (auto) 3.4 Absolute Nucleated RBC 0.000 Nucleated RBC % (auto) 0.0 O2 Saturation ABG pH at Pt Temp ABG pCO2 at Pt Temp ABG pO2 at Pt Temp ABG HCO3 ABG Base Excess (Actual) Sodium 143 Potassium 3.9 Chloride 106 Carbon Dioxide 27 Anion Gap 14 BUN 28 H Creatinine 1.83 H Estim Creat Clear Calc 26.1 Estimated GFR 27 POC Glucose 129 H Random Glucose 149 H Calcium 9.0 Iron TIBC % Saturation Unsat Iron Binding Ferritin Total Bilirubin AST ALT Alkaline Phosphatase Troponin I High Sens B-Natriuretic Peptide Total Protein Albumin Urine Color Urine Appearance Urine pH Ur Specific [place] Urine Protein Urine Glucose (UA) Urine Ketones Urine Blood Urine Nitrite Ur Leukocyte Esterase Urine RBC Urine WBC Ur Squamous Epith Cells Urine Bacteria Hyaline Casts Ethyl Alcohol 03/03/23 07:17 WBC RBC Hgb Hct MCV MCH MCHC RDW Plt Count MPV Immature Gran % (Auto) Neut % (Auto) Lymph % (Auto) [place] % (Auto) Eos % (Auto) Baso % (Auto) Lymph # (Auto) [place] # (Auto) Eos # (Auto) Baso # (Auto) Abs Immat Gran (auto) Absolute Neuts (auto) Absolute Nucleated RBC Nucleated RBC % (auto) O2 Saturation ABG pH at Pt Temp ABG pCO2 at Pt Temp ABG pO2 at Pt Temp ABG HCO3 ABG Base Excess (Actual) Sodium Potassium Chloride Carbon Dioxide Anion Gap BUN Creatinine Estim Creat Clear Calc Estimated GFR POC Glucose 143 H Random Glucose Calcium Iron TIBC % Saturation Unsat Iron Binding Ferritin Total Bilirubin AST ALT Alkaline Phosphatase Troponin I High Sens B-Natriuretic Peptide Total Protein Albumin Urine Color Urine Appearance Urine pH Ur Specific [place] Urine Protein Urine Glucose (UA) Urine Ketones Urine Blood Urine Nitrite Ur Leukocyte Esterase Urine RBC Urine WBC Ur Squamous Epith Cells Urine Bacteria Hyaline Casts Ethyl Alcohol Airway Mallampati Class: II TM Dist: >3cm Neck ROM: Full Loose/Missing/Broken Teeth: No (Denies broken, loose, missing teet) Heart: Irregularly irregular Lungs: CTAB Assessment and Plan Final Anesthetic Review Family History of Problems with Anesthesia: No History of Problems with Anesthesia: No NPO: Yes ASA Class: III Final Preanesthetic Review: No Changes in Pt Med Stat, Meds/Allgs Chart Reviewed, Consent Obtained/Reviewed and Anes Risks/Benef Reviewed Patient Risk: Intermediate Procedure Risk: Low Assessment/Block/Sedation in SS: Assess/Block/Sedation-SS Anesthetic Plan Anesthetic Plan: GA Disposition: Standard PACU and Inp. Admit - [facility]
[2023-03-03 10:05] LABS: Glucose, Whole Blood 160 mg/dL (60-115)
--- NOTE | 2023-03-03 10:12 | MHC.SHP ---
Pre-Procedural Eval Section A Date of Service: 03/03/23 The patient is an INPATIENT: Yes The History & Physical has been completed within 30 days and I have reviewed it.: Yes Section B Chief Complaint: Obstructive Uropathy Afib RVR Allergies: Allergies Allergy/AdvReac Type Severity Reaction Status Date / Time montelukast [Singulair] Allergy Unknown itching/marysol Verified 01/19/23 10:17 h From Singulair Allergy Intermediate RASH Uncoded 01/19/23 10:17 Plan Diagnosis/Plan: Unchanged I have reviewed the history and physical and performed a pertinent physical examination on my patient. No changes have occurred unless specified. Cysto, bilateral retrogrades, bilateral ureteral stent insertion Time Spent With Patient Time: Total time managing care of this patient today ____ minutes.
--- NOTE | 2023-03-03 11:05 | W.PM.OPN ---
Operative Note Operative Note Date of Service: 03/03/23 Narrative: PreOperative Diagnosis:?? Bilateral Hydronephrosis, UPJ Obstruction Post Operative Diagnosis:?? ? Bilateral Hydronephrosis, UPJ Obstruction Procedure: - cystoscopy, bilateral retrogrades, - bilateral stent placement, 7 fr by 24 cm on the right, 7 fr by 24 cm on the left Surgeon:?Dr Jacquie Mcgraw Anesthesia:? General Indications for procedure: Obstructive uropathy, SCOTT Procedure: After informed consent was verified the patient was brought to the operating placed on the OR table in supine position.? General Anesthesia was administered per protocol.? The patient was placed in lithotomy position, prepped and draped in the usual sterile fashion.? Safety pause time-out and side of surgery confirmed.? Antibiotics confirmed. A 22 Egyptian cystoscope was inserted transurethrally, The bladder was visualized.? Both ureteric orifices were in normal position. Mild erythematous changes on posterior bladder wall secondary to previous catheter The? left ureteric orifice was cannulated? and a retrograde examination was performed, the ureters were of normal caliber, there was narrowing of the UPJ with dilation of the renal pelvis. A hydrophilic guidewire was placed up to the level of the renal pelvis under fluoroscopy. A? 7 Egyptian by 24 length stent was placed into the ureter and renal pelvis under a combination of fluoroscopy and direct visualization. This was repeated on the right side. right retrograde findings were essentially the same. When the right ureteral stent was deployed on the right side, the distal end curled in the distal ureter, the rigid ureteroscope was used with a zero degree basket to grasp the tip and pull the stent into the bladder, The the proximal portion was noted in the renal pelvis and the 24 cm length stent was left insitu. The bladder was emptied.? The rigid cystoscope was removed. ? The patient tolerated the procedure well and was brought to the recovery room in stable condition. Complications: None Drains: Ureteral stent as dictated above
--- NOTE | 2023-03-03 11:53 | HO.PM.IMPN ---
Subjective Subjective Date of Service: 03/03/23 Interval History: f/u on obstructive uropathy interval history: s/p cystoscopy with bilateral stent placement Physical Exam Vital Signs: Vital Signs: Last Vital Signs Temp 97.1 F 03/03/23 11:45 Pulse 63 03/03/23 11:45 Resp 17 03/03/23 11:45 BP 161/81 H 03/03/23 11:45 Pulse Ox 97 03/03/23 11:45 O2 Del Method Nasal Cannula 03/03/23 11:45 O2 Flow Rate 3 03/03/23 11:45 BMI result Body Mass Index 36.6 Const: Other: General: AO X 3, no acute distress Resp: CTA bilateral CVS: S1,S2,RRR GI: +BS, NT, no distention Skin: No rash Neuro: motor grossly intact Psych: appropriate affect Objective Data Active Medications Acetaminophen (Acetaminophen 325 Mg Tablet) 650 mg PO Q6H PRN PRN Reason: Pain, Mild (Pain Scale 1-3) Albuterol Sulfate (Albuterol Sulfate (0.083%) 2.5 Mg/3 Ml Vial.Neb) 2.5 mg INHALE QID PRN PRN Reason: Wheezing Albuterol Sulfate (Albuterol Sulfate 90 Mcg 8 Gm Inhaler) 2 puff INHALE Q4H PRN PRN Reason: Wheezing Atorvastatin Calcium (Atorvastatin Calcium 80 Mg Tablet) 80 mg PO DAILY [facility] Last Admin: 03/03/23 08:30 Dose: 80 mg Documented By: MAYA Calcium Polycarbophil (Calcium Polycarbophil Tablet) 1 tab PO DAILY [facility] Last Admin: 03/03/23 08:30 Dose: 1 tab Documented By: MAYA Carvedilol (Carvedilol 3.125 Mg Tablet) 3.125 mg PO BID [facility]; Protocol Last Admin: 03/03/23 08:31 Dose: 3.125 mg Documented By: MAYA Diltiazem HCl (Diltiazem Hcl Cd 240 Mg Cap.Er.Deg) 240 mg PO DAILY [facility]; Protocol Last Admin: 03/03/23 08:32 Dose: 240 mg Documented By: MAYA Docusate Sodium (Docusate Sodium 100 Mg Capsule) 100 mg PO BID [facility] Last Admin: 03/03/23 08:31 Dose: 100 mg Documented By: MAYA Famotidine (Famotidine 20 Mg Tablet) 20 mg PO BID [facility] Last Admin: 03/03/23 08:30 Dose: 20 mg Documented By: MAYA Fentanyl (Fentanyl Citrate/Pf 100 Mcg/2 Ml Vial) 12.5 mcg IVPUSH Q5M PRN; Protocol PRN Reason: Pain, Moderate (Pain Scale 4-6 Ferrous Sulfate (Ferrous Sulfate 324 Mg Tablet.Dr) 324 mg PO Q48H [facility] Last Admin: 03/03/23 08:30 Dose: 324 mg Documented By: MAYA Fluticasone/Vilanterol (Fluticasone/Vilanterol 100/25 Blst.W.Dev) 1 puff INHALE RDAILY [facility] Last Admin: 03/03/23 08:09 Dose: 1 puff Documented By: ROSEANN Furosemide (Furosemide 40 Mg/4 Ml Vial) 40 mg IVPUSH DAILY [facility]; Protocol Last Admin: 03/03/23 08:32 Dose: 40 mg Documented By: MAYA Glucose (Glucose Gel 15 Gm Gel..Gram.) 15 gm PO Q15M PRN; Protocol PRN Reason: per Hypoglycemia Standing Ord. Hydrocortisone (Hydrocortisone 2.5 % Rectal Cr 30 Gm Tube) 1 appl ND QID PRN PRN Reason: hemorrhoids Dextrose (D10) 250 mls @ 750 mls/hr IV Q15M PRN; Protocol PRN Reason: per Hypoglycemia Standing Ord. Lactated Ringer's (Lr) 1,000 mls @ 100 mls/hr IVCONT .Q10H [facility] Acetaminophen (Ofirmev) 1,000 mg in 100 mls @ 400 mls/hr IV ONCE PRN PRN Reason: Pain, Moderate (Pain Scale 4-6 Insulin Human Lispro (Insulin Lispro 100 Unit/Ml 3 Ml Vial) 0 unit SUBCUT QIDACHS [facility]; Protocol Last Admin: 03/03/23 07:34 Dose: Not Given Documented By: MAYA Non-Admin Reason: No Insulin Coverage Morphine Sulfate (Morphine Sulfate 2 Mg/Ml Cartridge) 2 mg IM Q6H PRN; Protocol PRN Reason: Pain, Severe (Pain Scale 7-10) Ondansetron HCl (Ondansetron Hcl 4 Mg/2 Ml Vial) 4 mg IVPUSH Q8H PRN PRN Reason: Nausea and Vomiting Ondansetron HCl (Ondansetron Hcl 4 Mg/2 Ml Vial) 4 mg IVPUSH ONCE PRN PRN Reason: Nausea and Vomiting Pharmacy Consult (Consult Rx Perform Med Rec) 1 each MISCELLANE ONCE PRN PRN Reason: Consult order Pyridoxine HCl (Pyridoxine Hcl (Vitamin B6) 50 Mg Tablet) 100 mg PO DAILY [facility] Last Admin: 03/03/23 08:31 Dose: 100 mg Documented By: MAYA Senna (Sennosides 8.6 Mg Tablet) 8.6 mg PO BID PRN PRN Reason: constipation Simethicone (Simethicone 80 Mg Tab.Chew) 160 mg PO QID PRN PRN Reason: Indigestion Sodium Chloride (0.9 % Sodium Chloride Flush 3 Ml Syringe) 3 ml IVFLUSH QSHIFT [facility] Last Admin: 03/02/23 20:34 Dose: 3 ml Documented By: JADA Tramadol HCl (Tramadol Hcl 50 Mg Tablet) 50 mg PO TID PRN PRN Reason: Pain, Moderate (Pain Scale 4-6 Last Admin: 03/03/23 01:34 Dose: 50 mg Documented By: JADA Labs 03/03/23 06:38 03/03/23 06:38 Labs: Laboratory Results - last 24 hr 03/02/23 03/02/23 03/02/23 02:42 12:05 12:27 MCV MCH MCHC RDW Plt Count MPV Immature Gran % (Auto) Neut % (Auto) Lymph % (Auto) [place] % (Auto) Eos % (Auto) Baso % (Auto) Lymph # (Auto) [place] # (Auto) Eos # (Auto) Baso # (Auto) Abs Immat Gran (auto) Absolute Neuts (auto) Absolute Nucleated RBC Nucleated RBC % (auto) O2 Saturation 97.0 ABG pH at Pt Temp 7.41 ABG pCO2 at Pt Temp 37 ABG pO2 at Pt Temp 90 ABG HCO3 23 ABG Base Excess (Actual) -0.4 Anion Gap Estim Creat Clear Calc Estimated GFR POC Glucose Random Glucose Calcium Iron 31 TIBC 266 % Saturation 12 L Unsat Iron Binding 235 Ferritin 325 H B-Natriuretic Peptide 666 H 03/02/23 03/02/23 03/02/23 13:27 16:41 19:57 MCV MCH MCHC RDW Plt Count MPV Immature Gran % (Auto) Neut % (Auto) Lymph % (Auto) [place] % (Auto) Eos % (Auto) Baso % (Auto) Lymph # (Auto) [place] # (Auto) Eos # (Auto) Baso # (Auto) Abs Immat Gran (auto) Absolute Neuts (auto) Absolute Nucleated RBC Nucleated RBC % (auto) O2 Saturation ABG pH at Pt Temp ABG pCO2 at Pt Temp ABG pO2 at Pt Temp ABG HCO3 ABG Base Excess (Actual) Anion Gap 17 Estim Creat Clear Calc 22.2 Estimated GFR 22 POC Glucose 180 H 129 H Random Glucose 214 H Calcium 9.3 Iron TIBC % Saturation Unsat Iron Binding Ferritin B-Natriuretic Peptide 03/03/23 03/03/23 03/03/23 06:38 06:38 07:17 MCV 87.5 MCH 27.7 MCHC 31.6 RDW 14.6 Plt Count 269 MPV 10.6 Immature Gran % (Auto) 0.4 Neut % (Auto) 62.5 Lymph % (Auto) 20.0 [place] % (Auto) 11.2 H Eos % (Auto) 5.0 H Baso % (Auto) 0.9 Lymph # (Auto) 1.1 L [place] # (Auto) 0.6 Eos # (Auto) 0.3 Baso # (Auto) 0.1 Abs Immat Gran (auto) 0.02 Absolute Neuts (auto) 3.4 Absolute Nucleated RBC 0.000 Nucleated RBC % (auto) 0.0 O2 Saturation ABG pH at Pt Temp ABG pCO2 at Pt Temp ABG pO2 at Pt Temp ABG HCO3 ABG Base Excess (Actual) Anion Gap 14 Estim Creat Clear Calc 26.1 Estimated GFR 27 POC Glucose 143 H Random Glucose 149 H Calcium 9.0 Iron TIBC % Saturation Unsat Iron Binding Ferritin B-Natriuretic Peptide 03/03/23 10:00 MCV MCH MCHC RDW Plt Count MPV Immature Gran % (Auto) Neut % (Auto) Lymph % (Auto) [place] % (Auto) Eos % (Auto) Baso % (Auto) Lymph # (Auto) [place] # (Auto) Eos # (Auto) Baso # (Auto) Abs Immat Gran (auto) Absolute Neuts (auto) Absolute Nucleated RBC Nucleated RBC % (auto) O2 Saturation ABG pH at Pt Temp ABG pCO2 at Pt Temp ABG pO2 at Pt Temp ABG HCO3 ABG Base Excess (Actual) Anion Gap Estim Creat Clear Calc Estimated GFR POC Glucose 160 H Random Glucose Calcium Iron TIBC % Saturation Unsat Iron Binding Ferritin B-Natriuretic Peptide Assessment and Plan (1) COVID-19: Status: Acute (2) CHF (congestive heart failure): Status: Inactive Plan 78 year old female with history of noninsulin dependent type 2 diabetes, htn, asthma/copd overlap, chronic atrial fibrillation anticoagulated with eliquis, history etoh abuse, and history nephrolithiasis with recent admission 12/25- for bilateral obstructive uropathy with removal on 01/08 admitted for bilateral obstructive uropathy. #Acute kidney injury due to Obstructive uropathy -Creat 2.35 -s/p cystoscopy, bilateral? retrogrades, -? bilateral stent placement by Dr. Mcgraw 03/03 monitor renal function post op #Atrial fibrillation with RVR was on IV cardizem now off, continue -continue cardizem drip per protocol -Hold PO dilt at this time. Continue coreg -restart eliquis today -Appreciate cardiology input -Monitor on telemetry #Acute dyspnea -likely related to panic attack, pain -ABG normal, no hypoxia -Repeat CXR unchanged #HFpEF- no acute exacerbation -continue PO lasix #Chronic normocytic anemia -H/H decreased since eliquis initiated last admission -H/H above transfusion threshold -Iron studies pending. Denies bleeding #Anxiety/panic attack -Given lorazepam in ED -Consider Psych eval if no improvement #Asthma/COPD overlap -no acute exacerbation -continue home inhalers #HTN -Hold losartan in setting ORION -Continue addl home meds DVT prophylaxis- on eliquis Full code Need for inpatient: Patient requires inpatient stay of at least 2 midnights for management of obstructive uropathy requiring expert consultation and probable surgical intervention as well as management atrial fibrillation with RVR. ? Time Spent With Patient Time: Total time managing care of this patient today ____ minutes. Quality Stroke Does the patient have a stroke diagnosis?: No VTE Prior VTE?: No VTE Risk Level:: Medical - moderate - high VTE Device Contraindication: Treatment Not Indicated VTE Drug Contraindication: N/A - Med Ordered
[2023-03-03 12:03] LABS: Glucose, Whole Blood 166 mg/dL (60-115)
--- NOTE | 2023-03-03 12:22 | P.CONNP_ITS ---
History of Present Illness Reason for Consult Consult date: 03/03/23 Chief Complaint Chief complaint: Obstructive Uropathy Afib RVR History of Present Illness Narrative: 78 year old female with history of nephrolithiasis with recent admission 12/25- for bilateral obstructive uropathy with removal on 01/08 presented to ER via EMS for evaluation of right flank pain ongoing for 1 week. No associated fevers, chills, nausea, vomiting, dysuria, decreased urinary output. No trauma. Has history renal colic and stent placement. CT abdomen/pelvis shows severe bilateral hydronephrosis with abrupt transition to normal caliber ureters keeping with the UPJ obstructions, significantly worsened from prior imaging studies with interval removal of ureteral stents.?? Creatinine was 2.35, baseline 0.89.? BUN 35.? Electrolyte levels normal.? Urinalysis unremarkable except for trace leukocytes.? EKG showing AFib with RVR, rate 117.? In the ED, given 10 mg IV push Cardizem x2 and then placed on Cardizem drip per protocol.?Urology has seen patient. Nephrology has been consulted to assist in her clinical care during her current hospital stay Review of Systems Review of Systems Yes all other systems are reviewed and are negative PMFSH Past Medical History Medical History (Updated 03/03/23 @ 11:23 by Radha Zepeda MD) Alcohol abuse Arthritis Asthma Asymmetrical thyroid Atrial fibrillation CHF (congestive heart failure) COPD (chronic obstructive pulmonary disease) Diabetes Gout Hypertension Knee arthropathy Nephrolithiasis Obstruction, uropathy Osteoarthritis Renal cyst, acquired, left Thrombosed external hemorrhoid Surgical History Surgical History History of total knee arthroplasty Hx of colonoscopy Social History Social History Household Members: None Household Members Other:: DAUGHTER Housing: Apartment Housing Other:: low income housing Do you presently have visiting nurse or other home services: No Unable to assess alcohol history related to: Unknown Alcohol intake: never Patient Tobacco Use Status: Never used Tobacco Smoked in Last 30 Days: No e-Cigarette/Vaping Use: Never Used Second Hand Smoke Exposure: No Use of substances other than those prescribed or required for medical reasons: No Currently Displaying Signs/Symptoms of Drug Intoxication Withdrawal: No Have you been hit, kicked, punched, or otherwise hurt by someone within the past year? If so, by whom?: No Do you feel safe in your current relationship?: Yes Is there a partner from a previous relationship who is making you feel unsafe now?: No Are you made to feel afraid or neglected: No Are you DNR?: No Advance Directives: Yes Advance Directives on File: Yes Advance Directives Date on File: 09/07/22 Do you have thoughts of harming others: None Do you have a plan to hurt others: No Plan Recently lost weight without trying: Unsure Nutrition Risks: No Nutritional Risk Patient : No : No service: No Current occupational status: disabled Meds Allergies Allergy/AdvReac Type Severity Reaction Status Date / Time montelukast [Singulair] Allergy Unknown itching/marysol Verified 01/19/23 10:17 h From Singulair Allergy Intermediate RASH Uncoded 01/19/23 10:17 Active Medications: Current Medications Acetaminophen (Acetaminophen 325 Mg Tablet) 650 mg PO Q6H PRN PRN Reason: Pain, Mild (Pain Scale 1-3) Albuterol Sulfate (Albuterol Sulfate (0.083%) 2.5 Mg/3 Ml Vial.Neb) 2.5 mg INHALE QID PRN PRN Reason: Wheezing Albuterol Sulfate (Albuterol Sulfate 90 Mcg 8 Gm Inhaler) 2 puff INHALE Q4H PRN PRN Reason: Wheezing Atorvastatin Calcium (Atorvastatin Calcium 80 Mg Tablet) 80 mg PO DAILY [facility] Last Admin: 03/03/23 08:30 Dose: 80 mg Calcium Polycarbophil (Calcium Polycarbophil Tablet) 1 tab PO DAILY [facility] Last Admin: 03/03/23 08:30 Dose: 1 tab Carvedilol (Carvedilol 3.125 Mg Tablet) 3.125 mg PO BID [facility]; Protocol Last Admin: 03/03/23 08:31 Dose: 3.125 mg Diltiazem HCl (Diltiazem Hcl Cd 240 Mg Cap.Er.Deg) 240 mg PO DAILY [facility]; Protocol Last Admin: 03/03/23 08:32 Dose: 240 mg Docusate Sodium (Docusate Sodium 100 Mg Capsule) 100 mg PO BID [facility] Last Admin: 03/03/23 08:31 Dose: 100 mg Famotidine (Famotidine 20 Mg Tablet) 20 mg PO BID [facility] Last Admin: 03/03/23 08:30 Dose: 20 mg Fentanyl (Fentanyl Citrate/Pf 100 Mcg/2 Ml Vial) 12.5 mcg IVPUSH Q5M PRN; Protocol PRN Reason: Pain, Moderate (Pain Scale 4-6 Ferrous Sulfate (Ferrous Sulfate 324 Mg Tablet.Dr) 324 mg PO Q48H [facility] Last Admin: 03/03/23 08:30 Dose: 324 mg Fluticasone/Vilanterol (Fluticasone/Vilanterol 100/25 Blst.W.Dev) 1 puff INHALE RDAILY [facility] Last Admin: 03/03/23 08:09 Dose: 1 puff Furosemide (Furosemide 40 Mg/4 Ml Vial) 40 mg IVPUSH DAILY [facility]; Protocol Last Admin: 03/03/23 08:32 Dose: 40 mg Glucose (Glucose Gel 15 Gm Gel..Gram.) 15 gm PO Q15M PRN; Protocol PRN Reason: per Hypoglycemia Standing Ord. Hydrocortisone (Hydrocortisone 2.5 % Rectal Cr 30 Gm Tube) 1 appl ND QID PRN PRN Reason: hemorrhoids Dextrose (D10) 250 mls @ 750 mls/hr IV Q15M PRN; Protocol PRN Reason: per Hypoglycemia Standing Ord. Lactated Ringer's (Lr) 1,000 mls @ 100 mls/hr IVCONT .Q10H [facility] Last Admin: 03/03/23 12:03 Dose: Not Given Acetaminophen (Ofirmev) 1,000 mg in 100 mls @ 400 mls/hr IV ONCE PRN PRN Reason: Pain, Moderate (Pain Scale 4-6 Insulin Human Lispro (Insulin Lispro 100 Unit/Ml 3 Ml Vial) 0 unit SUBCUT QIDACHS [facility]; Protocol Last Admin: 03/03/23 07:34 Dose: Not Given Morphine Sulfate (Morphine Sulfate 2 Mg/Ml Cartridge) 2 mg IM Q6H PRN; Protocol PRN Reason: Pain, Severe (Pain Scale 7-10) Ondansetron HCl (Ondansetron Hcl 4 Mg/2 Ml Vial) 4 mg IVPUSH Q8H PRN PRN Reason: Nausea and Vomiting Ondansetron HCl (Ondansetron Hcl 4 Mg/2 Ml Vial) 4 mg IVPUSH ONCE PRN PRN Reason: Nausea and Vomiting Pharmacy Consult (Consult Rx Perform Med Rec) 1 each MISCELLANE ONCE PRN PRN Reason: Consult order Pyridoxine HCl (Pyridoxine Hcl (Vitamin B6) 50 Mg Tablet) 100 mg PO DAILY [facility] Last Admin: 03/03/23 08:31 Dose: 100 mg Senna (Sennosides 8.6 Mg Tablet) 8.6 mg PO BID PRN PRN Reason: constipation Simethicone (Simethicone 80 Mg Tab.Chew) 160 mg PO QID PRN PRN Reason: Indigestion Sodium Chloride (0.9 % Sodium Chloride Flush 3 Ml Syringe) 3 ml IVFLUSH QSHIFT [facility] Last Admin: 03/03/23 12:01 Dose: Not Given Tramadol HCl (Tramadol Hcl 50 Mg Tablet) 50 mg PO TID PRN PRN Reason: Pain, Moderate (Pain Scale 4-6 Last Admin: 03/03/23 01:34 Dose: 50 mg Home Medications Medication Instructions Recorded Confirmed Last Taken Type albuterol sulfate 2.5 mg/3 mL 1 amp inhalation QID PRN Wheezing 09/06/22 03/02/23 12/19/22 History (0.083 %) solution for nebulization alendronate 70 mg tablet 1 tab PO REESE 09/06/22 03/02/23 12/14/22 History blood sugar diagnostic ([facility] 09/06/22 10/23/22 Unknown History Verio test strips) blood-glucose meter (Former[facility] 09/06/22 10/23/22 Unknown History Verio Flex Meter) diltiazem HCl 180 mg 1 cap PO DAILY 09/06/22 03/02/23 12/19/22 History capsule,extended release 24 hr (Cartia XT) ferrous sulfate 325 mg (65 mg 1 tab PO Q OTHER DAY 09/06/22 03/02/23 12/24/22 History iron) tablet (FeroSul) fluticasone 250 mcg-salmeterol 50 1 puff inhalation BID 09/06/22 03/02/23 12/19/22 History mcg/dose blistr powdr for inhalation (Advair Diskus) furosemide 80 mg tablet 1 tab PO BIDWM 09/06/22 03/02/23 12/19/22 [facility] 10/23/22 Unknown History Plus Lancet) tramadol 50 mg tablet 1 tab PO TID PRN pain 10/29/22 04/24/23 Unknown History albuterol sulfate 90 mcg/actuation 2 puff inhalation Q4-6H PRN 10/23/22 03/02/23 Unknown History aerosol inhaler (Ventolin HFA) Wheezing atorvastatin 80 mg tablet 80 mg PO DAILY 10/23/22 03/02/23 12/19/22 History carvedilol 3.125 mg tablet 3.125 mg PO BID 10/23/22 03/02/23 12/19/22 History losartan 100 mg tablet 100 mg PO DAILY 10/23/22 03/02/23 12/19/22 History metformin 850 mg tablet 850 mg PO BIDWM 10/23/22 03/02/23 12/18/22 History aspirin 81 mg tablet,delayed 81 mg PO DAILY 03/02/23 03/02/23 Unknown History release pyridoxine (vitamin B6) 100 mg 100 mg PO DAILY 03/02/23 03/02/23 Unknown History tablet Physical Exam Vital Signs: Last Vital Signs Temp 96.5 F L 03/03/23 12:00 Pulse 66 03/03/23 12:00 Resp 20 03/03/23 12:00 BP 141/73 H 03/03/23 12:00 Pulse Ox 94 03/03/23 12:00 O2 Del Method Room Air 03/03/23 12:01 O2 Flow Rate 3 03/03/23 11:45 BMI result Body Mass Index 36.6 Const General: no acute distress Eyes EOM: EOMs intact bilaterally Neck Neck: Yes supple Resp Auscultation: diminished lung sounds Cardio Jugular venous distension: no JVD GI Palpation (GI): Soft to palpation Skin General skin exam: no rashes or lesions noted Neuro General: moves all extremities Results Lab Results 03/03/23 06:38 03/03/23 06:38 Lab results: Chemistry 03/02/23 03/02/23 03/03/23 02:42 13:27 06:38 Sodium 143 144 143 Potassium 4.3 4.3 3.9 Carbon Dioxide BUN 35 H 32 H 28 H Creatinine 2.35 H 2.15 H 1.83 H Calcium 9.1 9.3 9.0 Hematology 03/02/23 03/03/23 02:42 06:38 WBC 5.0 5.5 Hgb 9.7 L 9.1 L Plt Count 274 269 Urinalysis 03/02/23 04:05 Urine Color Yellow Urine Appearance Clear Urine pH 6.5 Ur Specific [place] 1.010 Urine Protein Negative Urine Glucose (UA) Negative Urine Ketones Negative Urine Blood Negative Urine Nitrite Negative Ur Leukocyte Esterase Trace H Urine RBC 0-2 Urine WBC 0-5 Ur Squamous Epith Cells 0-2 Hyaline Casts 0-2 Assessment and Plan (1) Acute kidney injury: Status: Acute Time Spent With Patient Time: ORION due to obstruction; Likely had tubular injury given RVR & being on ARB @ home Urology seen. UO OK; No NSAID's; Good hydration; Serum creatinine better Continue current supportive management. Shall closely follow up Procedures Date of Service Date of Service: 03/03/23
[2023-03-03 16:17] LABS: Glucose, Whole Blood 240 mg/dL (60-115)
[2023-03-03] MEDS: Insulin Lispro 100 UNIT/ML 3 ML VIAL SUBCUT (16:36)
[2023-03-03 19:46] LABS: Glucose, Whole Blood 101 mg/dL (60-115)
[2023-03-03] MEDS: Lactated Ringers 1,000 ML 100 ML IVCONT (23:43)
[2023-03-04] VITALS (9 sets, daily range): BP systolic 136–158; BP diastolic 61–80; PULSE 58–94; RESP 16–20; TEMP 36.1–37.1; O2SAT 87–98
[2023-03-04 07:48] LABS: Glucose, Whole Blood 165 mg/dL (60-115)
[2023-03-04] MEDS: Fluticasone/Vilanterol 100/25 BLST.W.DEV 1 PUFF INHALE (07:51)
[2023-03-04] MEDS: 0.9 % Sodium Chloride Flush 3 ML SYRINGE IVFLUSH ×3 (08:21→20:57)
[2023-03-04] MEDS: Insulin Lispro 100 UNIT/ML 3 ML VIAL SUBCUT ×4 (08:21→20:57)
[2023-03-04] MEDS: calcium polycarbophiL TABLET 1 TAB PO (08:22)
[2023-03-04] MEDS: Famotidine 20 MG TABLET PO ×2 (08:22→20:57)
[2023-03-04] MEDS: Docusate Sodium 100 MG CAPSULE PO ×2 (08:22→20:57)
[2023-03-04] MEDS: Atorvastatin Calcium 80 MG TABLET PO (08:22)
[2023-03-04] MEDS: Pyridoxine HCl (Vitamin B6) 50 MG TABLET 100 MG PO (08:22)
[2023-03-04] MEDS: dilTIAZem HCL CD 240 MG CAP.ER.DEG PO (08:22)
[2023-03-04] MEDS: carvediloL 3.125 MG TABLET PO ×2 (08:22→20:57)
[2023-03-04] MEDS: Furosemide 40 MG/4 ML VIAL IVPUSH (08:23)
[2023-03-04 09:19] LABS: Anion Gap 12 (12-20); Blood Urea Nitrogen 27 mg/dL (9-16); Carbon Dioxide 29 mmol/L (22-29); Chloride 103 mmol/L (96-108); Creatinine Clr Calc Pharmacy 25.8; Estimated Glomerular Filt Rate 26; Glucose Random 203 mg/dL (60-115); Potassium 4.3 mmol/L (3.3-5.1); Sodium 140 mmol/L (135-145)
[2023-03-04 11:23] LABS: Glucose, Whole Blood 168 mg/dL (60-115)
[2023-03-04] MEDS: Lactated Ringers 1,000 ML 100 ML IVCONT (12:06)
--- NOTE | 2023-03-04 12:08 | PM.PNNEP ---
Subjective Subjective Date of Service: 03/04/23 Interval history: s/p cystoscopy with bilateral stent placement; All recent data reviewed Physical Exam Vital Signs: Vital Signs: Last Vital Signs Temp 97.4 F 03/04/23 11:16 Pulse 94 03/04/23 11:16 Resp 16 03/04/23 11:16 BP 137/61 03/04/23 11:16 Pulse Ox 94 03/04/23 11:16 O2 Del Method Room Air 03/04/23 11:16 O2 Flow Rate 1 03/04/23 11:16 BMI result Body Mass Index 36.6 Const: General: no acute distress Eyes: EOM: EOMs intact bilaterally Neck: Neck: Yes supple Resp: Auscultation: diminished lung sounds Cardio: Rate: regular rate GI: Palpation (GI): Soft to palpation Neuro: General: moves all extremities Objective Data Labs 03/03/23 06:38 03/04/23 08:44 Labs: Laboratory Results - last 24 hr 03/03/23 03/03/23 03/04/23 16:14 19:36 07:44 Sodium Potassium Chloride Carbon Dioxide Anion Gap BUN Creatinine Estim Creat Clear Calc Estimated GFR POC Glucose 240 H 101 165 H Random Glucose Calcium 03/04/23 03/04/23 08:44 11:19 Sodium 140 Potassium 4.3 Chloride 103 Carbon Dioxide 29 Anion Gap 12 BUN 27 H Creatinine 1.85 H Estim Creat Clear Calc 25.8 Estimated GFR 26 POC Glucose 168 H Random Glucose 203 H Calcium 9.0 Procedures Date of Service Date of Service: 03/04/23 Assessment & Plan Assessment and plan (1) Acute kidney injury: Status: Acute Assessment and Plan: ORION due to obstruction; S/P cystoscopy and stenting; Has CKD 3 @ baseline Likely also had tubular injury given RVR & being on ARB @ home UO OK; No NSAID's; Good hydration; Serum creatinine better Continue current supportive management. Shall closely follow up Progress Note: Quality Stroke Does the patient have a stroke diagnosis?: No
--- NOTE | 2023-03-04 12:44 | HO.POSTANES ---
Post Anesthesia Evaluation Post Anesthesia Evaluation Vital Signs: Vital Signs Temp Pulse Resp BP Pulse Ox O2 Del Method O2 Flow Rate 03/04/23 12:00 98 03/04/23 11:16 97.4 F 94 16 137/61 94 Room Air 1 03/04/23 07:52 88 18 03/04/23 07:42 97.8 F 71 17 153/76 H 97 Nasal Cannula 2 03/04/23 03:49 96.9 F 66 20 144/80 H 94 Nasal Cannula 2 Anesthesia: General Mental Status: Awake Pain Control: Satisfactory Nausea/Vomiting: None Hydration: Adequate Anesthesia-Related Issues: No Anes. Related Issues
--- NOTE | 2023-03-04 14:09 | PM.PNCARD ---
Subjective Subjective Date of Service: 03/04/23 Interval history: Seen and examined at bedside. s/o ureteric stents for hydro. Creatinine improving. Denying any symptoms. Physical Exam Vital Signs: Last Vital Signs Temp 97.4 F 03/04/23 11:16 Pulse 94 03/04/23 11:16 Resp 16 03/04/23 11:16 BP 137/61 03/04/23 11:16 Pulse Ox 98 03/04/23 12:00 O2 Del Method Room Air 03/04/23 11:16 O2 Flow Rate 1 03/04/23 11:16 BMI result Body Mass Index 36.6 GENERAL APPEARANCE: in no acute distress, pleasant. On supplemental oxygen. NECK: no carotid bruit, no jugular venous distention. SKIN: no suspicious lesions, warm and dry. HEART: no murmurs, irregular rate and rhythm. LUNGS: Diminished at bases with few crackles. ABDOMEN: soft, nontender. EXTREMITIES: no edema. PERIPHERAL PULSES: equal. NEUROLOGIC: No gross deficits, AAO X 3 Objective Labs and Meds 03/03/23 06:38 03/04/23 08:44 Lab results: Laboratory Results - last 24 hr 03/03/23 03/03/23 03/04/23 16:14 19:36 07:44 Sodium Potassium Chloride Carbon Dioxide Anion Gap BUN Creatinine Estim Creat Clear Calc Estimated GFR POC Glucose 240 H 101 165 H Random Glucose Calcium 03/04/23 03/04/23 08:44 11:19 Sodium 140 Potassium 4.3 Chloride 103 Carbon Dioxide 29 Anion Gap 12 BUN 27 H Creatinine 1.85 H Estim Creat Clear Calc 25.8 Estimated GFR 26 POC Glucose 168 H Random Glucose 203 H Calcium 9.0 Imaging Radiologist's impression: Impressions Guidance Fluoroscopy 03/03/23 11:05 IMPRESSION: Fluoroscopy guidance for urology procedure. Progress Note: A&P Assessment and plan (1) Obstruction, uropathy: Status: Acute (2) Atrial fibrillation with RVR: Status: Acute Plan [age] year female with atrial fibrillation and obstructive uropathy. She had mild congestive heart failure. She had ureteral stents and creatinine is improving. Overall she is feeling better. Telemetry showing her heart rate is slow. She is asymptomatic. I think Cardizem should be decreased to 180 mg once a day. Continue carvedilol at the same dose. On anticoagulation with apixaban. Can be changed to home oral diuretic dose. Thank you for allowing me to participate in the care of your patient. Please feel free to contact me if you have any questions. Time Spent With Patient Time: Total time managing care of this patient today ____ minutes. Progress Note: Quality Stroke Does the patient have a stroke diagnosis?: No Procedures Date of Service Date of Service: 03/04/23
--- NOTE | 2023-03-04 14:37 | HO.PM.IMPN ---
Subjective Subjective Date of Service: 03/05/23 Interval History: s/p cystoscopy with bilateral stent placement 03/03, renal function is better, has sensation of somthing stuck in throat Physical Exam Vital Signs: Vital Signs: Last Vital Signs Temp 97.4 F 03/04/23 11:16 Pulse 94 03/04/23 11:16 Resp 16 03/04/23 11:16 BP 137/61 03/04/23 11:16 Pulse Ox 98 03/04/23 12:00 O2 Del Method Room Air 03/04/23 11:16 O2 Flow Rate 1 03/04/23 11:16 BMI result Body Mass Index 36.6 Const: Other: General: AO X 3, no acute distress Resp: CTA bilateral CVS: S1,S2,RRR GI: +BS, NT, no distention Skin: No rash Neuro: motor grossly intact Psych: appropriate affect Objective Data Active Medications Acetaminophen (Acetaminophen 325 Mg Tablet) 650 mg PO Q6H PRN PRN Reason: Pain, Mild (Pain Scale 1-3) Albuterol Sulfate (Albuterol Sulfate (0.083%) 2.5 Mg/3 Ml Vial.Neb) 2.5 mg INHALE QID PRN PRN Reason: Wheezing Albuterol Sulfate (Albuterol Sulfate 90 Mcg 8 Gm Inhaler) 2 puff INHALE Q4H PRN PRN Reason: Wheezing Atorvastatin Calcium (Atorvastatin Calcium 80 Mg Tablet) 80 mg PO DAILY [facility] Last Admin: 03/04/23 08:22 Dose: 80 mg Documented By: MAYA Calcium Polycarbophil (Calcium Polycarbophil Tablet) 1 tab PO DAILY [facility] Last Admin: 03/04/23 08:22 Dose: 1 tab Documented By: MAYA Carvedilol (Carvedilol 3.125 Mg Tablet) 3.125 mg PO BID [facility]; Protocol Last Admin: 03/04/23 08:22 Dose: 3.125 mg Documented By: MAYA Diltiazem HCl (Diltiazem Hcl Cd 180 Mg Cap.Er.24h) 180 mg PO DAILY [facility]; Protocol Docusate Sodium (Docusate Sodium 100 Mg Capsule) 100 mg PO BID [facility] Last Admin: 03/04/23 08:22 Dose: 100 mg Documented By: MAYA Famotidine (Famotidine 20 Mg Tablet) 20 mg PO BID [facility] Last Admin: 03/04/23 08:22 Dose: 20 mg Documented By: MAYA Fentanyl (Fentanyl Citrate/Pf 100 Mcg/2 Ml Vial) 12.5 mcg IVPUSH Q5M PRN; Protocol PRN Reason: Pain, Moderate (Pain Scale 4-6 Ferrous Sulfate (Ferrous Sulfate 324 Mg Tablet.Dr) 324 mg PO Q48H [facility] Last Admin: 03/03/23 08:30 Dose: 324 mg Documented By: MAYA Fluticasone/Vilanterol (Fluticasone/Vilanterol 100/25 Blst.W.Dev) 1 puff INHALE RDAILY [facility] Last Admin: 03/04/23 07:51 Dose: 1 puff Documented By: ANUPAM Furosemide (Furosemide 40 Mg/4 Ml Vial) 40 mg IVPUSH DAILY [facility]; Protocol Last Admin: 03/04/23 08:23 Dose: 40 mg Documented By: MAYA Glucose (Glucose Gel 15 Gm Gel..Gram.) 15 gm PO Q15M PRN; Protocol PRN Reason: per Hypoglycemia Standing Ord. Hydrocortisone (Hydrocortisone 2.5 % Rectal Cr 30 Gm Tube) 1 appl [place] QID PRN PRN Reason: hemorrhoids Dextrose (D10) 250 mls @ 750 mls/hr IV Q15M PRN; Protocol PRN Reason: per Hypoglycemia Standing Ord. Lactated Ringer's (Lr) 1,000 mls @ 100 mls/hr IVCONT .Q10H [facility] Last Admin: 03/04/23 12:06 Dose: 100 mls/hr Documented By: MAYA Acetaminophen (Ofirmev) 1,000 mg in 100 mls @ 400 mls/hr IV ONCE PRN PRN Reason: Pain, Moderate (Pain Scale 4-6 Insulin Human Lispro (Insulin Lispro 100 Unit/Ml 3 Ml Vial) 0 unit SUBCUT QIDACHS [facility]; Protocol Last Admin: 03/04/23 12:06 Dose: 2 unit Documented By: MAYA Morphine Sulfate (Morphine Sulfate 2 Mg/Ml Cartridge) 2 mg IM Q6H PRN; Protocol PRN Reason: Pain, Severe (Pain Scale 7-10) Ondansetron HCl (Ondansetron Hcl 4 Mg/2 Ml Vial) 4 mg IVPUSH Q8H PRN PRN Reason: Nausea and Vomiting Ondansetron HCl (Ondansetron Hcl 4 Mg/2 Ml Vial) 4 mg IVPUSH ONCE PRN PRN Reason: Nausea and Vomiting Pharmacy Consult (Consult Rx Perform Med Rec) 1 each MISCELLANE ONCE PRN PRN Reason: Consult order Pyridoxine HCl (Pyridoxine Hcl (Vitamin B6) 50 Mg Tablet) 100 mg PO DAILY [facility] Last Admin: 03/04/23 08:22 Dose: 100 mg Documented By: MAYA Senna (Sennosides 8.6 Mg Tablet) 8.6 mg PO BID PRN PRN Reason: constipation Simethicone (Simethicone 80 Mg Tab.Chew) 160 mg PO QID PRN PRN Reason: Indigestion Sodium Chloride (0.9 % Sodium Chloride Flush 3 Ml Syringe) 3 ml IVFLUSH QSHIFT [facility] Last Admin: 03/04/23 08:21 Dose: 3 ml Documented By: MAYA Tramadol HCl (Tramadol Hcl 50 Mg Tablet) 50 mg PO TID PRN PRN Reason: Pain, Moderate (Pain Scale 4-6 Last Admin: 03/03/23 22:35 Dose: 50 mg Documented By: JADA Labs 03/03/23 06:38 03/04/23 08:44 Labs: Laboratory Results - last 24 hr 03/03/23 03/03/23 03/04/23 16:14 19:36 07:44 Anion Gap Estim Creat Clear Calc Estimated GFR POC Glucose 240 H 101 165 H Random Glucose Calcium 03/04/23 03/04/23 08:44 11:19 Anion Gap 12 Estim Creat Clear Calc 25.8 Estimated GFR 26 POC Glucose 168 H Random Glucose 203 H Calcium 9.0 Assessment and Plan (1) COVID-19: Status: Acute (2) CHF (congestive heart failure): Status: Inactive Plan 78 year old female with history of noninsulin dependent type 2 diabetes, htn, asthma/copd overlap, chronic atrial fibrillation anticoagulated with eliquis, history etoh abuse, and history nephrolithiasis with recent admission 12/25- for bilateral obstructive uropathy with removal on 01/08 admitted for bilateral obstructive uropathy. #Acute kidney injury due to Obstructive uropathy -Creat 2.35 -s/p cystoscopy, bilateral? retrogrades, -? bilateral stent placement by Dr. Mcgraw 03/03, renal function is better monitor renal function post op #Atrial fibrillation with RVR was on IV cardizem now off, continue -continue cardizem drip per protocol -Hold PO dilt at this time. Continue coreg -restart eliquis later if not GI procedure indicated -Appreciate cardiology input -Monitor on telemetry #Acute dyspnea -likely related to panic attack, pain -ABG normal, no hypoxia -Repeat CXR unchanged #HFpEF- no acute exacerbation -continue PO lasix #Chronic normocytic anemia -H/H decreased since eliquis initiated last admission -H/H above transfusion threshold -Iron studies pending. Denies bleeding #Anxiety/panic attack -Given lorazepam in ED -Consider Psych eval if no improvement #Asthma/COPD overlap -no acute exacerbation -continue home inhalers #HTN -Hold losartan in setting ORION -Continue addl home meds DVT prophylaxis- on eliquis Full code Need for inpatient: Patient requires inpatient stay of at least 2 midnights for management of obstructive uropathy requiring expert consultation and probable surgical intervention as well as management atrial fibrillation with RVR. ? Gi eval for ? something stuck in throat Time Spent With Patient Time: Total time managing care of this patient today ____ minutes. Quality Stroke Does the patient have a stroke diagnosis?: No VTE Prior VTE?: No VTE Risk Level:: Medical - moderate - high VTE Device Contraindication: Treatment Not Indicated VTE Drug Contraindication: N/A - Med Ordered
[2023-03-04 16:33] LABS: Glucose, Whole Blood 166 mg/dL (60-115)
[2023-03-04 20:16] LABS: Glucose, Whole Blood 194 mg/dL (60-115)
[2023-03-05] MEDS: traMADoL HCL 50 MG TABLET PO (00:17)
[2023-03-05 02:32] VITALS: BP 118/56; PULSE 52; RESP 18; TEMP 36.1; O2SAT 97
--- NOTE | 2023-03-05 02:39 | PC.NURSE ---
Pt heart rate ranging in 40-50's, at one point dropping to 30, MD notified, pt asymptomatic, no distress noted, no new orders given will cont to monitor pt.
[2023-03-05 07:22] LABS: Glucose, Whole Blood 169 mg/dL (60-115)
[2023-03-05 07:47] VITALS: BP 165/82; PULSE 57; RESP 20; TEMP 36.9; O2SAT 95
[2023-03-05] MEDS: Fluticasone/Vilanterol 100/25 BLST.W.DEV 1 PUFF INHALE (07:56)
[2023-03-05 07:57] VITALS: PULSE 89; RESP 18; O2SAT 97
--- NOTE | 2023-03-05 08:21 | PM.GICN ---
History of Present Illness Data of Consult Service Date: 03/05/23 Requesting physician: Alan Braga Primary Care Provider: SANA Crespo Reason for consult: ? Pill esophagitis 78 YF with noninsulin dependent type 2 diabetes, htn, asthma/copd overlap, chronic atrial fibrillation anticoagulated with eliquis, history etoh abuse, and history nephrolithiasis admitted [place] [facility] [place]23 with obstructive uropathy. Pt was hospitalized at [facility] 12/25- for bilateral obstructive uropathy and had stent placement with removal on 01/08 Pt seen at [facility] on 03/02/23 for 1 week hx of right flank pain. No associated fevers, chills, nausea, vomiting, dysuria, decreased urinary output. Has history renal colic and stent placement. On arrival, mild tachypnia 22, hypertensive to 176/84, afebrile. However, when she was taken for CT scan developed suspected panic attack with significant tachypnea to 37, tachycardia 121-146 in afib with oximetry 90%. CXR shoulder mildly prominent central vasculature without overt edema and subsegmental right basilar atelectasis.? CT abdomen/pelvis shows severe bilateral hydronephrosis with abrupt transition to normal caliber ureters keeping with the UPJ obstructions, significantly worsened from prior imaging studies with interval removal of ureteral stents.? There is read demonstrated left lower pole renal calculi trace pleural effusions.? There is no leukocytosis.? H/H 9.7/30.9% with normal MCV.? Creatinine 2.35, baseline 0.89.? BUN 35.? Electrolyte levels normal.? Urinalysis unremarkable except for trace leukocytes.? EKG showing AFib with RVR, rate 117.? In the ED, given 10 mg IV push Cardizem x2 and then placed on Cardizem drip per protocol.? She was also give 1 mg IV push lorazepam. She was also placed on bipap for an hour due to the hyperventilation and weaned off with good improvement in respiratory distress. 03/03/23 s/p?cystoscopy, bilateral? retrogrades, -? bilateral stent placement by Dr. Mcgraw 03/04/23 GI consulted since pt complained of sensation of something stuck in throat Hx obtained with the help of patient's son in law ([facility] employee) who interpreted for the patient. Patient reported eating potato salad after she had her urologic procedure and noting dysphagia with swallowing Symptoms of dysphagia have resolved and patient denies having any trouble swallowing today. She attributes dysphagia yesterday to having a dry mouth after her procedure. Patient is followed in the GI clinic by Bernie Lewis NP and has a FU appt in 07/2023 Pt had an EGD and Colonoscopy for evaluation of GERD and FU of colon polyps. EGD showed gastritis and multiple fundic gland polyps and no H Pylori. Colonoscopy showed diverticulosis and hemorrhoids and a submucosal lipoma. Four polyps were removed (Only one small polyp was tubular adenoma on bx) Repeat colon was advised in 5 yrs (if pt remained in stable health). Review of Systems Review of Systems: Yes all other systems are reviewed and are negative [facility] Past Medical History Medical History Alcohol abuse Anxiety Arthritis Asthma Asymmetrical thyroid Atrial fibrillation CHF (congestive heart failure) COPD (chronic obstructive pulmonary disease) COVID-19 Diabetes Gout Hypertension Knee arthropathy Nephrolithiasis Obstruction, uropathy Osteoarthritis Renal cyst, acquired, left Thrombosed external hemorrhoid Surgical History Surgical History History of total knee arthroplasty Hx of colonoscopy Social History Social History Household Members: None Household Members Other:: DAUGHTER Housing: Apartment Housing Other:: low income housing Do you presently have visiting nurse or other home services: No Unable to assess alcohol history related to: Unknown Alcohol intake: never Patient Tobacco Use Status: Never used Tobacco e-Cigarette/Vaping Use: Never Used Second Hand Smoke Exposure: No Advance Directives Date on File: 09/07/22 service: No Current occupational status: disabled Meds Allergies Allergy/AdvReac Type Severity Reaction Status Date / Time montelukast [Singulair] Allergy Unknown itching/marysol Verified 03/16/23 10:43 h From Singulair Allergy Intermediate RASH Uncoded 03/16/23 10:43 Active Medications: Current Medications Acetaminophen (Acetaminophen 325 Mg Tablet) 650 mg PO Q6H PRN PRN Reason: Pain, Mild (Pain Scale 1-3) Albuterol Sulfate (Albuterol Sulfate (0.083%) 2.5 Mg/3 Ml Vial.Neb) 2.5 mg INHALE QID PRN PRN Reason: Wheezing Albuterol Sulfate (Albuterol Sulfate 90 Mcg 8 Gm Inhaler) 2 puff INHALE Q4H PRN PRN Reason: Wheezing Atorvastatin Calcium (Atorvastatin Calcium 80 Mg Tablet) 80 mg PO DAILY [facility] Last Admin: 03/04/23 08:22 Dose: 80 mg Calcium Polycarbophil (Calcium Polycarbophil Tablet) 1 tab PO DAILY [facility] Last Admin: 03/04/23 08:22 Dose: 1 tab Carvedilol (Carvedilol 3.125 Mg Tablet) 3.125 mg PO BID [facility]; Protocol Last Admin: 03/04/23 20:57 Dose: 3.125 mg Diltiazem HCl (Diltiazem Hcl Cd 180 Mg Cap.Er.24h) 180 mg PO DAILY [facility]; Protocol Docusate Sodium (Docusate Sodium 100 Mg Capsule) 100 mg PO BID [facility] Last Admin: 03/04/23 20:57 Dose: 100 mg Famotidine (Famotidine 20 Mg Tablet) 20 mg PO BID [facility] Last Admin: 03/04/23 20:57 Dose: 20 mg Fentanyl (Fentanyl Citrate/Pf 100 Mcg/2 Ml Vial) 12.5 mcg IVPUSH Q5M PRN; Protocol PRN Reason: Pain, Moderate (Pain Scale 4-6 Ferrous Sulfate (Ferrous Sulfate 324 Mg Tablet.Dr) 324 mg PO Q48H [facility] Last Admin: 03/03/23 08:30 Dose: 324 mg Fluticasone/Vilanterol (Fluticasone/Vilanterol 100/25 Blst.W.Dev) 1 puff INHALE RDAILY [facility] Last Admin: 03/05/23 07:56 Dose: 1 puff Glucose (Glucose Gel 15 Gm Gel..Gram.) 15 gm PO Q15M PRN; Protocol PRN Reason: per Hypoglycemia Standing Ord. Hydrocortisone (Hydrocortisone 2.5 % Rectal Cr 30 Gm Tube) 1 appl CO QID PRN PRN Reason: hemorrhoids Dextrose (D10) 250 mls @ 750 mls/hr IV Q15M PRN; Protocol PRN Reason: per Hypoglycemia Standing Ord. Acetaminophen (Ofirmev) 1,000 mg in 100 mls @ 400 mls/hr IV ONCE PRN PRN Reason: Pain, Moderate (Pain Scale 4-6 Insulin Human Lispro (Insulin Lispro 100 Unit/Ml 3 Ml Vial) 0 unit SUBCUT QIDACHS [facility]; Protocol Last Admin: 03/04/23 20:57 Dose: 2 unit Morphine Sulfate (Morphine Sulfate 2 Mg/Ml Cartridge) 2 mg IM Q6H PRN; Protocol PRN Reason: Pain, Severe (Pain Scale 7-10) Ondansetron HCl (Ondansetron Hcl 4 Mg/2 Ml Vial) 4 mg IVPUSH Q8H PRN PRN Reason: Nausea and Vomiting Ondansetron HCl (Ondansetron Hcl 4 Mg/2 Ml Vial) 4 mg IVPUSH ONCE PRN PRN Reason: Nausea and Vomiting Pharmacy Consult (Consult Rx Perform Med Rec) 1 each MISCELLANE ONCE PRN PRN Reason: Consult order Pyridoxine HCl (Pyridoxine Hcl (Vitamin B6) 50 Mg Tablet) 100 mg PO DAILY [facility] Last Admin: 03/04/23 08:22 Dose: 100 mg Senna (Sennosides 8.6 Mg Tablet) 8.6 mg PO BID PRN PRN Reason: constipation Simethicone (Simethicone 80 Mg Tab.Chew) 160 mg PO QID PRN PRN Reason: Indigestion Sodium Chloride (0.9 % Sodium Chloride Flush 3 Ml Syringe) 3 ml IVFLUSH [facility] Last Admin: 03/04/23 20:57 Dose: 3 ml Tramadol HCl (Tramadol Hcl 50 Mg Tablet) 50 mg PO TID PRN PRN Reason: Pain, Moderate (Pain Scale 4-6 Last Admin: 03/05/23 00:17 Dose: 50 mg Home Medications Medication Instructions Recorded Confirmed Last Taken Type albuterol sulfate 2.5 mg/3 mL 1 amp inhalation QID PRN Wheezing 09/06/22 03/16/23 12/19/22 History (0.083 %) solution for nebulization alendronate 70 mg tablet 1 tab PO REESE 09/06/22 03/16/23 12/14/22 History blood sugar diagnostic (OneTouch 09/06/22 03/16/23 Unknown History Verio test strips) blood-glucose meter (OneTouch 09/06/22 03/16/23 Unknown History Verio Flex Meter) diltiazem HCl 180 mg 1 cap PO DAILY 09/06/22 03/16/23 12/19/22 History capsule,extended release 24 hr (Cartia XT) ferrous sulfate 325 mg (65 mg 1 tab PO Q OTHER DAY 09/06/22 03/16/23 12/24/22 History iron) tablet (FeroSul) fluticasone 250 mcg-salmeterol 50 1 puff inhalation BID 09/06/22 03/16/23 12/19/22 History mcg/dose blistr powdr for inhalation (Advair Diskus) lancets 33 gauge (OneTouch Delica 09/06/22 03/16/23 Unknown History Plus Lancet) albuterol sulfate 90 mcg/actuation 2 puff inhalation Q4-6H PRN 10/23/22 03/16/23 Unknown History aerosol inhaler (Ventolin HFA) Wheezing atorvastatin 80 mg tablet 80 mg PO DAILY 10/23/22 03/16/23 12/19/22 History carvedilol 3.125 mg tablet 3.125 mg PO BID 10/23/22 03/16/23 12/19/22 History metformin 850 mg tablet 850 mg PO BIDWM 10/23/22 03/16/23 12/18/22 History aspirin 81 mg tablet,delayed 81 mg PO DAILY 03/02/23 03/16/23 Unknown History release pyridoxine (vitamin B6) 100 mg 100 mg PO DAILY 03/02/23 03/16/23 Unknown History tablet Physical Exam Vital Signs: Vital Signs: Last Vital Signs Temp 98.5 F 03/05/23 07:47 Pulse 89 03/05/23 07:57 Resp 18 03/05/23 07:57 BP 165/82 H 03/05/23 07:47 Pulse Ox 95 03/05/23 07:47 O2 Del Method Nasal Cannula 03/05/23 07:47 O2 Flow Rate 2 03/05/23 07:47 BMI result Body Mass Index 36.6 Const: General: healthy appearing and no acute distress Nutritional Appearance: obese Orientation/consciousness: patient oriented x3 Limitations: language barrier HEENT: Head: Yes normal to inspection Ears: hearing grossly normal bilaterally Eyes: Sclerae: sclerae normal Pupils: Equal, round and reactive pupils present Neck: Neck: Yes normal visual inspection Chest: Chest palpation & inspection: normal inspection of the chest Resp: Effort & Inspection: normal respiratory effort Auscultation: clear to auscultation bilaterally Cardio: Palpation: normal PMI Rate: regular rate Rhythm: regular rhythm Heart sounds: S1 normal heart sound present, S2 normal heart sound present and no murmurs GI: Palpation (GI): Soft to palpation, nontender and No hepatosplenomegaly present Auscultation: normal bowel sounds Rectal Exam - Female: deferred Skin: General skin exam: no rashes or lesions noted Neuro: General: patient oriented x3, gait normal and moves all extremities Cranial nerves: Yes Equal, round and reactive pupils present Psych: Appearance: grossly normal Mental Status: mental status grossly normal Results Labs 03/03/23 06:38 03/04/23 08:44 Labs: BMP 03/04/23 08:44 Sodium 140 Potassium 4.3 Chloride 103 Carbon Dioxide 29 BUN 27 H Creatinine 1.85 H Calcium 9.0 Assessment and Plan (1) Dysphagia, pharyngoesophageal phase: Status: Acute Plan 78 YF with noninsulin dependent type 2 diabetes, htn, asthma/copd overlap, chronic atrial fibrillation anticoagulated with eliquis, history etoh abuse, and history nephrolithiasis admitted to [facility] [place] 03/02[place]23 with obstructive uropathy. 03/04/23 GI consulted since pt complained of sensation of something stuck in throat Hx obtained with the help of patient's son in law ([facility] employee) who interpreted for the patient. Patient reported eating potato salad after she had her urologic procedure and noting dysphagia with swallowing Symptoms of dysphagia have resolved and patient denies having any trouble swallowing today. She attributes dysphagia yesterday to having a dry mouth after her procedure. RECOMMENDATIONS: Transient episode of dysphagia after urologic procedure which has resolved. Patient attributes his symptoms to having a dry mouth. Patient was advised to monitor her symptoms post discharge in contact the GI clinic (Bernie Lewis NP) if she notes recurrent problems with dysphagia. Patient is followed in the GI clinic by Bernie Lewis NP and has a FU appt in 07/2023 Time Spent With Patient Time: Total time managing care of this patient today ____ minutes. Procedures Date of Service Date of Service: 03/05/23
[2023-03-05] MEDS: Insulin Lispro 100 UNIT/ML 3 ML VIAL SUBCUT ×2 (09:03→12:00)
[2023-03-05] MEDS: dilTIAZem HCL CD 180 MG CAP.ER.24H PO (09:04)
[2023-03-05] MEDS: calcium polycarbophiL TABLET 1 TAB PO (09:04)
[2023-03-05] MEDS: Atorvastatin Calcium 80 MG TABLET PO (09:04)
[2023-03-05] MEDS: Docusate Sodium 100 MG CAPSULE PO (09:04)
[2023-03-05] MEDS: Ferrous Sulfate 324 MG TABLET.DR PO (09:04)
[2023-03-05] MEDS: carvediloL 3.125 MG TABLET PO (09:04)
[2023-03-05] MEDS: Famotidine 20 MG TABLET PO (09:04)
[2023-03-05] MEDS: Pyridoxine HCl (Vitamin B6) 50 MG TABLET 100 MG PO (09:04)
[2023-03-05] MEDS: 0.9 % Sodium Chloride Flush 3 ML SYRINGE IVFLUSH (09:05)
--- NOTE | 2023-03-05 10:38 | PM.PNNEP ---
Subjective Subjective Date of Service: 03/05/23 Interval history: s/p cystoscopy with bilateral stent placement 03/03, renal function improved Physical Exam Vital Signs: Vital Signs: Last Vital Signs Temp 98.5 F 03/05/23 07:47 Pulse 89 03/05/23 07:57 Resp 18 03/05/23 07:57 BP 165/82 H 03/05/23 07:47 Pulse Ox 95 03/05/23 07:47 O2 Del Method Nasal Cannula 03/05/23 07:47 O2 Flow Rate 2 03/05/23 07:47 BMI result Body Mass Index 36.6 Const: General: no acute distress Eyes: EOM: EOMs intact bilaterally Neck: Neck: Yes supple Resp: Auscultation: diminished lung sounds Cardio: Rate: regular rate GI: Palpation (GI): Soft to palpation Skin: General skin exam: no rashes or lesions noted Neuro: General: moves all extremities Objective Data Labs 03/03/23 06:38 03/04/23 08:44 Labs: Laboratory Results - last 24 hr 03/04/23 03/04/23 03/04/23 11:19 16:29 20:06 POC Glucose 168 H 166 H 194 H 03/05/23 07:17 POC Glucose 169 H Procedures Date of Service Date of Service: 03/05/23 Assessment & Plan Assessment and plan (1) Acute kidney injury: Status: Acute Assessment and Plan: ORION due to obstruction; S/P cystoscopy and stenting; Has CKD 3 @ baseline Likely also had tubular injury given RVR & being on ARB @ home UO OK; No NSAID's; Good hydration; Serum creatinine better-?close to baseline now Continue current supportive management. Shall closely follow up Progress Note: Quality Stroke Does the patient have a stroke diagnosis?: No
--- NOTE | 2023-03-05 11:02 | P.DS_ITS ---
DS: Providers Provider Date of Service: 03/05/23 Date of admission: 03/02/23 12:57 Primary care physician: SANA Crespo Consults: 03/02/23 12:20 Consult to Urology Routine Consulting Provider: Lior Tellez Reason for consultation: obstructive uropathy 03/02/23 12:58 Consult to Cardiology [place]ine Consulting [place] [facility] Reason for consultation: afib rvr 03/02/23 15:38 Consult to Nephrology Routine Consulting Provider: Ever Pedraza Reason for consultation: orion/chf Has provider been notified: No 03/04/23 08:44 Consult to Gastroenterology Routine Consulting Provider: Farida Santillan Reason for consultation: esophagitis ? pill Has provider been notified: No DS: Diagnosis Discharge Diagnosis (1) COVID-19: Status: Inactive (2) CHF (congestive heart failure): Status: Inactive DS: Summary Hospital Course Hospital Course: hief Complaint: left flank pain 78 year old female with hisotry of noninsulin dependent type 2 diabetes, htn, asthma/copd overlap, chronic atrial fibrillation anticoagulated with eliquis, history etoh abuse, and history nephrolithiasis with recent admission 12/25- for bilateral obstructive uropathy with removal on 01/08 presented to ED early this am via EMS for evaluation of right flank pain ongoing for 1 week. No associated fevers, chills, nausea, vomiting, dysuria, decreased urinary output. No trauma. Has history renal colic and stent placement. On arrival, mild tachypnia 22, hypertensive to 176/84, afebrile. However, when she was taken for CT scan developed suspected panic attach with significant tachypnea to 37, tachycardia 121-146 in afib with oximetry 90%. CXR shoulder mildly prominent central vasculature without overt edema and subsegmental right basilar atelectasis.? CT abdomen/pelvis shows severe bilateral hydronephrosis with abrupt transition to normal caliber ureters keeping with the UPJ obstructions, significantly worsened from prior imaging studies with interval removal of ureteral stents.? There is read demonstrated left lower pole renal calculi trace pleural effusions.? There is no leukocytosis.? H/H 9.7/30.9% with normal MCV.? Creatinine 2.35, baseline 0.89.? BUN 35.? Electrolyte levels normal.? Urinalysis unremarkable except for trace leukocytes.? EKG showing AFib with RVR, rate 117.? In the ED, given 10 mg IV push Cardizem x2 and then placed on Cardizem drip per protocol.? She was also give 1 mg IV push lorazepam. She was also placed on bipap for an hour due to the hyperventilation and weaned off with good improvement in respiratory distress. ED discussed case with urology who will follow patient. Hospital course: Patient presented with left flank pain, ORION with creatine of 2.35, her baselines is less than [address] on 03/02/23 showed .Severe bilateral hydronephrosis with abrupt transition to normal caliber ureters in keeping with the UPJ obstructions; significantly worsened from 01/02/2023. She has had previous stents that was later removed -s/p? cystoscopy, bilateral? retrogrades, -? bilateral stent placement by Dr. Maddie Liriano 03/03, renal function is better and left flank pain nearly all resolved. #Atrial fibrillation with RVR was on IV cardizem now off but later stopped, this is usually trigered by pain and anxiety. Her rate has been controlled and she will continue cardizem 180 mg, Eliquis per cariology advise. #Acute dyspnea -likely related to panic attack, pain -ABG normal, no hypoxia - Repeat CXR unchanged #HFpEF- no acute exacerbation -continue Aldactone #Chronic normocytic anemia -H/H decreased since eliquis initiated last admission -H/H above transfusion threshold -Iron studies pending. Denies bleeding #Anxiety/panic attack--d/t pain and resolved. #Asthma/COPD overlap -no acute exacerbation -continue home inhalers #HTN-- -Hold losartan in setting ORION -Continue addl home meds Time Spent with Patient Time attestation: Total time managing care of this patient today ____ minutes. Discharge coordination time: Greater than 30 minutes Quality: Safe Use of Opioids Does Pt have an Active Cancer Diagnosis on the Problem List?: No Quality: Stroke Does the patient have a stroke diagnosis?: No Physical Exam Vital Signs: Vital Signs: Last Vital Signs Temp 98.5 F 03/05/23 07:47 Pulse 89 03/05/23 07:57 Resp 18 03/05/23 07:57 BP 165/82 H 03/05/23 07:47 Pulse Ox 95 03/05/23 07:47 O2 Del Method Nasal Cannula 03/05/23 07:47 O2 Flow Rate 2 03/05/23 07:47 BMI result Body Mass Index 36.6 Const: Other: General: AO X 3, no acute distress Resp: CTA bilateral CVS: S1,S2,RRR GI: +BS, NT, no distention Skin: No rash Neuro: motor grossly intact Psych: appropriate affect DS: Data Data Completed and Pending Completed studies during hospitalization [Text1]: Procedures Dilation of Bilateral Ureters with Intraluminal Device, Via Natural or Artificial Opening Endoscopic (12/19/22) Fluoroscopy of Kidneys, Ureters and Bladder (12/19/22) Removal of Intraluminal Device from Bladder, Via Natural or Artificial Opening Endoscopic (12/19/22) Labs on day of discharge: Laboratory Results - last 24 hr 03/04/23 03/04/23 03/04/23 11:19 16:29 20:06 POC Glucose 168 H 166 H 194 H 03/05/23 07:17 POC Glucose 169 H Discharge Plan Discharge Anticipated Discharge Date/Time: 03/05/23 10:56 Patient Disposition: Home Health Service Discharge Diagnosis: ORION, Hydronephrosis, obstructive uropathy, AFIB with RVR Referrals: Carolyn Ceballos FNP [Primary Care Provider] - 1 Week Discharge Medications: Continued fluticasone propion-salmeterol [Advair Diskus] 250-50 mcg/dose blister with device 1 puff INHALATION BID albuterol sulfate 2.5 mg /3 mL (0.083 %) solution for nebulization 1 amp inhalation QID PRN (Reason: Wheezing) (DME) blood-glucose meter [OneTouch Verio Flex meter] [facility] MISCELLANEOUS DIRECTED (DME) OneTouch Verio test strips Strip MISCELLANEOUS BID (DME) lancets [OneTouch Delica Plus Lancet] 33 [place] [facility] [place] BID Eliquis 5 mg tablet 5 mg PO BID Qty: 60 0RF pyridoxine (vitamin B6) 100 mg tablet 100 mg PO DAILY famotidine 20 mg tablet 20 mg PO BID Qty: 180 2RF Fiber Laxative(methylcellulos) 500 mg tablet 500 mg PO DAILY Qty: 90 2RF sennosides [senna] 8.6 mg tablet 8.6 mg PO BID PRN (Reason: constipation) Qty: 180 2RF hydrocortisone [Proctosol HC] 2.5 % cream with perineal applicator 1 appl [place] BID-QID PRN (Reason: hemorrhoids) Qty: 30 2RF metformin 850 mg tablet 850 mg PO BIDWM atorvastatin 80 mg tablet 80 mg PO DAILY albuterol sulfate [Ventolin HFA] 90 mcg/actuation HFA aerosol inhaler 2 puff inhalation Q4-6H PRN (Reason: Wheezing) Discontinued furosemide 80 mg tablet 1 tab PO BIDWM losartan 100 mg tablet 100 mg PO DAILY No Action simethicone [Gas Relief Extra Strength] 125 mg capsule 125 mg PO TID-QID PRN (Reason: Indigestion) Qty: 120 6RF furosemide 40 mg tablet 40 mg PO DAILY Qty: 30 5RF tramadol 50 mg Tablet 50 mg PO Q8H PRN (Reason: Pain) losartan 25 mg Tablet 25 mg PO DAILY ferrous gluconate 324 mg (37.5 mg iron) Tablet 324 mg PO Q OTHER DAY clopidogrel 75 mg tablet 75 mg PO DAILY metoprolol succinate [Toprol XL] 50 mg tablet extended release 24 hr 50 mg PO DAILY Myrbetriq 50 mg tablet extended release 24 hr 50 mg PO DAILY Qty: 30 1RF Discharge Orders: Discharge Order (Routine); Ordered 03/05/23 Ordered By: Alan Braga Diet: Diabetic diet Activity on Discharge: As tolerated Stand Alone Forms: Patient Portal Discharge page Care Plan Goals: Full recovery from renal failure Health Concerns: renal failure atrial fibrilation Hydronephrosis (diated kidney tubes) Plan of Treatment: continue taking your medications as before Follow up with your Doctor in a week, Follow up with kidney Doctors Follow up with urologist, Dr. Monte Stop taking Losartan and do not take Lasix Assessment: As above Discharge Date/Time: 03/05/23 14:59
[2023-03-05 11:15] VITALS: BP 141/75; PULSE 55; RESP 20; TEMP 36.6; O2SAT 93
[2023-03-05 11:30] LABS: Glucose, Whole Blood 195 mg/dL (60-115)
[2023-03-05 11:43] LABS: Blood Urea Nitrogen 31 mg/dL (9-16); Calcium 8.9 mg/dL (8.4-10.2); Creatinine Clr Calc Pharmacy 27.9; Estimated Glomerular Filt Rate 29; Glucose Random 228 mg/dL (60-115)
[2023-03-05 11:51] LABS: Anion Gap 15 (12-20); Carbon Dioxide 26 mmol/L (22-29); Chloride 101 mmol/L (96-108); Potassium 3.4 mmol/L (3.3-5.1); Sodium 139 mmol/L (135-145)
[2023-03-05 12:00] VITALS: O2SAT 93
[2023-03-05] MEDS: Apixaban 5 MG TABLET PO (12:01)
--- NOTE | 2023-03-05 14:34 | MHC.CM.PN ---
Patient has been medically cleared for dc to home today with new VNA; 31 VNA referrals have been made and CM awaits a VNA acceptance. CM has made MD aware that a VNA has NOT yet been secured for Patient. Last IMM addressed on 03/03/2023. Patient does have a SAP BW ARCHITECT and strong family support.
== END 2023-03-05 14:59 | disposition home health service (06) | DRG 660 ==
LOC: HO.ED 07:49 → HO.EDOVER 13:03 → HO.IMC 13:24
PROVIDERS: Emergency Medicine; Urology; Admitting Provider Physician Assistant; Emergency Provider Emergency Medicine; PCP Registered Nurse; Visit Provider Internal Medicine
PROC: 0T788DZ Dilation of Bilateral Ureters with Intraluminal Device, Via Natural or Artificial Opening Endoscopic (ICD-10-PCS; principal; 2023-03-03 09:30)
DX: N13.0 Hydronephrosis with ureteropelvic junction obstruction (principal); I13.0 Hypertensive heart and chronic kidney disease with heart failure and stage 1 through stage 4 chronic kidney disease, or unspecified chronic kidney disease; I48.20 Chronic atrial fibrillation, unspecified; I50.32 Chronic diastolic (congestive) heart failure; N17.0 Acute kidney failure with tubular necrosis; E11.22 Type 2 diabetes mellitus with diabetic chronic kidney disease; N18.30 Chronic kidney disease, stage 3 unspecified; D63.1 Anemia in chronic kidney disease; F06.4 Anxiety disorder due to known physiological condition; D64.9 Anemia, unspecified; F10.11 Alcohol abuse, in remission; N28.1 Cyst of kidney, acquired; J44.9 Chronic obstructive pulmonary disease, unspecified; Z88.8 Allergy status to other drugs, medicaments and biological substances; Z79.01 Long term (current) use of anticoagulants; Z79.51 Long term (current) use of inhaled steroids; Z79.82 Long term (current) use of aspirin; Z79.84 Long term (current) use of oral hypoglycemic drugs; Z79.899 Other long term (current) drug therapy
CPT/HCPCS: 36415; 71045; 74176; 80048; 80053; 81001; 82077; 82728; 82803; 82947; 83540; 83880; 84484; 85025; 93005; 94640; 99285; C1758; C2617; J1940; J1956; J2060; J2405; J3010; Q9967

== ENCOUNTER 2023-03-10 10:08 | Emergency (ER) | payer OTHER, SELFPAY ==
--- NOTE | ~2023-03-10 | US_ITS ---
EXAMINATION: US RETROPERITONEAL LIMITED (RENAL ONLY) CLINICAL INFORMATION: Right-sided flank pain. Hematuria.. COMPARISON: Multiple prior studies. Most recent exam CT scan abdomen pelvis 03/02/2023 TECHNIQUE: Real-time grayscale ultrasound imaging and color Doppler exam of the kidneys. FINDINGS: Exam limited by body habitus and breathing motion patient. RIGHT KIDNEY: 11.3 x 5.8 x 5.6 cm (SAG x AP x TRV). The kidney is normal in size, contour, and echogenicity. Renal cortical thickness is normal. No calculi or focal parenchymal lesions. The hydronephrosis of the right kidney seen on CAT scan 03/02/2023 has resolved. LEFT KIDNEY: 11.2 x 5.7 x 5.9 cm (SAG x AP x TRV). The kidney is normal in size, contour, and echogenicity. Renal cortical thickness is normal. No calculi or suspicious focal parenchymal lesions. There is a large exophytic cyst at the midpole with thin septations. Measures 8.7 x 7.2 x 10 cm. This is unchanged since CT 03/02/2023 and renal ultrasound 06/20/2022 No hydronephrosis. US/US renal BI IMPRESSION: 1. Normal ultrasound of the right kidney. The hydronephrosis seen on CAT scan 03/02/2023 has resolved. 2. Large exophytic cyst at the midpole of left kidney with thin septations. This is unchanged since prior examinations.
[2023-03-10 10:21] VITALS: BP 159/74; PULSE 91; RESP 18; TEMP 36.8; O2SAT 94; BMI 36.6
[2023-03-10 12:07] LABS: Hematocrit 31.5 % (37.0-47.0); Mean Corpuscular HGB Conc 31.7 g/dl (31.0-35.0); Mean Corpuscular Hemoglobin 27.9 pg (27.0-33.0); Mean Platelet Volume 10.4 fL (9.4-12.3); Platelet Count 346 X10*3/uL (160-400); Red Blood Count 3.58 X10*6/uL (4.20-5.50); Red Cell Distribution Width 14.3 % (11.0-16.0); White Blood Count 7.6 X10*3/uL (4.8-10.8)
[2023-03-10 12:21] LABS: Appearance Urine Cloudy; Glucose Urine UA 100 mg/dL (Negative); Leukocyte Esterase Urine Small (1+) (Negative); Nitrite Urine Negative (Negative); Specific Gravity - Urine 1.015 (1.005-1.025); UMIC TRIGGER UACC YES; Urine Blood Large (3+) (Negative); Urine Ketones Negative (Negative); Urine Protein 100 (2+) mg/dL (Neg-Trace)
[2023-03-10 12:21] LABS: Anion Gap 12 (12-20); Blood Urea Nitrogen 19 mg/dL (9-16); Calcium 8.8 mg/dL (8.4-10.2); Carbon Dioxide 27 mmol/L (22-29); Chloride 106 mmol/L (96-108); Creatinine Clr Calc Pharmacy 45.5; Estimated Glomerular Filt Rate 51; Glucose Random 138 mg/dL (60-115); Potassium 3.9 mmol/L (3.3-5.1); Sodium 141 mmol/L (135-145)
[2023-03-10 12:22] LABS: Color Urine Red
[2023-03-10 12:23] LABS: Bacteria Urine None Seen (None Seen); Hyaline Casts Urine 0-2 /LPF (0-2); RBC Urine >20 /HPF (0-2); UACC Culture Trigger YES
--- NOTE | 2023-03-10 15:16 | ED.ABDPAIN ---
HPI - Abdominal Pain General Chief Complaint: Abdominal Pain <CLAIRE Oreilly - Last Filed: 03/10/23 15:20> Stated Complaint: Renal failure/afib <CLAIRE Oreilly - Last Filed: 03/10/23 15:20> Time Seen by Provider: 03/10/23 19:43 <CLAIRE Oreilly - Last Filed: 03/10/23 15:20> Source: patient, RN notes reviewed, old records reviewed and certified court/medical interpreter <Tim Hernandez - Last Filed: 03/10/23 20:29> Mode of arrival: ambulatory <Tim Hernnadez - Last Filed: 03/10/23 20:29> Limitations: language barrier <Tim Hernandez - Last Filed: 03/10/23 20:29> History of Present Illness HPI narrative: This 78-year-old female with past medical history significant for AFib with RVR, anxiety, diabetes, kidney stones, asthma presents for evaluation of right flank pain. Patient was admitted here from 03/02/2023 to 03/05/23 for bilateral obstructive uropathy with ORION She underwent bilateral ureteral stent placement on 03/03/2023 Patient presents today for worsening right flank pain. Denies any fevers, chills She states that she ?feel a poking sensation. ? She states her pain is 10/10. She has been taking tramadol and Tylenol at home without improvement <Tim Hernandez - Last Filed: 03/10/23 20:29> Related Data Home Medications: Home Medications Medication Instructions Recorded Confirmed albuterol sulfate 2.5 mg/3 mL 1 amp inhalation QID PRN Wheezing 09/06/22 03/02/23 (0.083 %) solution for nebulization alendronate 70 mg tablet 1 tab PO REESE 09/06/22 03/02/23 blood sugar diagnostic (OneTouch 09/06/22 10/23/22 Verio test strips) blood-glucose meter (OneTouch 09/06/22 10/23/22 Verio Flex Meter) diltiazem HCl 180 mg 1 cap PO DAILY 09/06/22 03/02/23 capsule,extended release 24 hr (Cartia XT) ferrous sulfate 325 mg (65 mg 1 tab PO Q OTHER DAY 09/06/22 03/02/23 iron) tablet (FeroSul) fluticasone 250 mcg-salmeterol 50 1 puff inhalation BID 09/06/22 03/02/23 mcg/dose blistr powdr for inhalation (Advair Diskus) lancets 33 gauge (OneTouch Delica 09/06/22 10/23/22 Plus Lancet) tramadol 50 mg tablet 1 tab PO TID PRN pain 09/06/22 03/02/23 albuterol sulfate 90 mcg/actuation 2 puff inhalation Q4-6H PRN 10/23/22 03/02/23 aerosol inhaler (Ventolin HFA) Wheezing atorvastatin 80 mg tablet 80 mg PO DAILY 10/23/22 03/02/23 carvedilol 3.125 mg tablet 3.125 mg PO BID 10/23/22 03/02/23 metformin 850 mg tablet 850 mg PO BIDWM 10/23/22 03/02/23 aspirin 81 mg tablet,delayed 81 mg PO DAILY 03/02/23 03/02/23 release pyridoxine (vitamin B6) 100 mg 100 mg PO DAILY 03/02/23 03/02/23 tablet Previous Rx's Medication Instructions Recorded famotidine 20 mg tablet 20 mg PO BID #180 tabs 10/27/22 simethicone 125 mg capsule (Gas 125 mg PO TID-QID PRN Indigestion 11/18/22 Relief Extra Strength) #120 caps apixaban 5 mg tablet (Eliquis) 5 mg PO BID #60 tabs 12/27/22 docusate sodium 100 mg capsule 100 mg PO BID #180 caps 01/19/23 hydrocortisone 2.5 % topical cream 1 appl [place] BID-QID PRN hemorrhoids 01/19/23 with perineal applicator #30 grams (Proctosol HC) methylcellulose (laxative) 500 mg 500 mg PO DAILY #90 tabs 01/19/23 tablet (Fiber Laxative (methylcellulose)) sennosides 8.6 mg tablet (senna) 8.6 mg PO BID PRN constipation 01/19/23 #180 tabs oxycodone 5 mg tablet 5 mg PO Q6H PRN severe pain (scale 03/10/23 score 7-10) #16 tabs <CLAIRE Oreilly - Last Filed: 03/10/23 15:20> Allergies/Adverse Reactions: Allergies Allergy/AdvReac Type Severity Reaction Status Date / Time montelukast [Singulair] Allergy Unknown itching/marysol Verified 01/19/23 10:17 h From Singulair Allergy Intermediate RASH Uncoded 01/19/23 10:17 <CLAIRE Oreilly - Last Filed: 03/10/23 15:20> Review of Systems Constitutional: Reports as per HPI, Denies chills, Denies fatigue, Denies fever(s) and Denies headache(s) <Tim Hernandez - Last Filed: 03/10/23 20:29> Denies headache(s) <Tim Hernandez - Last Filed: 03/10/23 20:29> Cardiovascular: Denies chest pain and Denies dyspnea <Tim Hernandez - Last Filed: 03/10/23 20:29> Respiratory: Denies cough and Denies dyspnea <Tim Hernandez - Last Filed: 03/10/23 20:29> Gastrointestinal: Reports abdominal pain, Denies constipation and Denies vomiting <Tim Hernandez - Last Filed: 03/10/23 20:29> Genitourinary: Denies dysuria <Tim Hernandez - Last Filed: 03/10/23 20:29> Musculoskeletal: Reports back pain <Tim Hernandez - Last Filed: 03/10/23 20:29> Denies headache(s) and Denies focal weakness <Tim Hernandez - Last Filed: 03/10/23 20:29> Endocrine: Denies fatigue <Tim Hernandez - Last Filed: 03/10/23 20:29> [facility] Past Medical History Medical History: Medical History (Updated 03/10/23 @ 20:27 by Tim Hernandez) Alcohol abuse Arthritis Asthma Asymmetrical thyroid Atrial fibrillation CHF (congestive heart failure) COPD (chronic obstructive pulmonary disease) Diabetes Gout Hypertension Knee arthropathy Nephrolithiasis Obstruction, uropathy Osteoarthritis Renal cyst, acquired, left Thrombosed external hemorrhoid <CLAIRE Oreilly - Last Filed: 03/10/23 15:20> Surgical History: Surgical History History of total knee arthroplasty Hx of colonoscopy <CLAIRE Oreilly - Last Filed: 03/10/23 15:20> Social History Social History: Social History Household Members: None Household Members Other:: DAUGHTER Housing: Apartment Housing Other:: low income housing Do you presently have visiting nurse or other home services: No Unable to assess alcohol history related to: Unknown Alcohol intake: never Patient Tobacco Use Status: Never used Tobacco e-Cigarette/Vaping Use: Never Used Second Hand Smoke Exposure: No Advance Directives: Yes Advance Directives on File: Yes Advance Directives Date on File: 09/07/22 service: No Current occupational status: disabled <CLAIRE Oreilly - Last Filed: 03/10/23 15:20> Physical Exam ED Vital Signs: Vital Signs - 24 hr 03/10/23 10:21 03/10/23 15:17 Temperature 98.3 F 96.8 F Pulse Rate 91 95 Respiratory Rate 18 18 Blood Pressure 159/74 H 173/82 H Pulse Oximetry 94 97 Oxygen Delivery Method Room Air Room Air BMI result Body Mass Index 36.6 <CLAIRE Oreilly - Last Filed: 03/10/23 15:20> Vital Signs - 24 hr 03/10/23 10:21 03/10/23 15:17 Temperature 98.3 F 96.8 F Pulse Rate 91 95 Respiratory Rate 18 18 Blood Pressure 159/74 H 173/82 H Pulse Oximetry 94 97 Oxygen Delivery Method Room Air Room Air BMI result Body Mass Index 36.6 <Tim Hernandez - Last Filed: 03/10/23 20:29> Const General: healthy appearing, comfortable, no acute distress, alert and awake <Tim Hernandez - Last Filed: 03/10/23 20:29> Nutritional Appearance: well nourished <Tim Hernandez - Last Filed: 03/10/23 20:29> Orientation/consciousness: patient oriented x3 <Tim Hernandez - Last Filed: 03/10/23 20:29> Eyes Eyelids: Yes eyelids normal <Tim Hernandez - Last Filed: 03/10/23 20:29> Conjunctivae: conjunctivae normal <Tim Hernandez - Last Filed: 03/10/23 20:29> Sclerae: sclerae normal <Tim O Last Filed: 03/10/23 20:29> Corneas: corneas normal <Tim Last Filed: 03/10/23 20:29> Pupils: Equal, round and reactive pupils present <Tim O Last Filed: 03/10/23 20:29> EOM: EOMs intact bilaterally < Last Filed: 03/10/23 20:29> Neck Neck: Yes full ROM < Last Filed: 03/10/23 20:29> Resp Effort & Inspection: normal respiratory effort, able to speak in complete sentences, no audible wheezes and not labored <Tim O Last Filed: 03/10/23 20:29> Auscultation: clear to auscultation bilaterally <Tim Last Filed: 03/10/23 20:29> Cardio Rate: regular rate < Last Filed: 03/10/23 20:29> Rhythm: regular rhythm < Last Filed: 03/10/23 20:29> GI Inspection: No distended <Tim Last Filed: 03/10/23 20:29> Palpation (GI): Soft to palpation, not firm, nontender, no guarding and not rigid <Tim O Last Filed: 03/10/23 20:29> Auscultation: normoactive bowel sounds < Last Filed: 03/10/23 20:29> Back/Spine/Pelvis Other: Tender to palpation in the right flank region. No visual or palpable deformities negative CVA tenderness <Tim O Last Filed: 03/10/23 20:29> Skin General skin exam: no rashes or lesions noted and elasticity normal <Tim O Last Filed: 03/10/23 20:29> Neuro General: patient oriented x3 <Tim Sina Last Filed: 03/10/23 20:29> Cranial nerves: Yes Equal, round and reactive pupils present and Yes Bilaterally intact EOM present <Tim Hernandez - Last Filed: 03/10/23 20:29> Cognition (Neuro): normal cognition <Tim Hernandez - Last Filed: 03/10/23 20:29> Extrem Other: Moving all extremities well without any obvious deformities <Tim Hernandez - Last Filed: 03/10/23 20:29> Course Course Course Narrative: RME - 78 yo female with history of afib, DM, history of recent bilateral hydronephrosis w/ UPJ obstruction s/p bilateral stent placement on 03/03, discharged from the hospital on 03/05 who presents to the ER for evaluation of of right sided flank pain that started 2 days ago. She went to [facility] yesterday and they told her she had WBC in her urine. She was not prescribed abx. Labs show improvement in renal function back to normal range. UA with gross blood. Plan: bilateral renal U/S, urology follow up. <CLAIRE Oreilly - Last Filed: 03/10/23 15:20> Medical Decision Making Medical Decision Making MDM Narrative: 78-year-old female presents for evaluation of right flank pain. She had bilateral ureteral stents placed 1 week ago. This is likely the cause of her discomfort. Her renal function has returned to baseline. There is a significant amount of blood seen in the urine without any bacteria. The blood is likely related to the ureteral stents. No evidence of UTI. Ultrasound of the kidneys bilaterally show no evidence of hydronephrosis the for, interval improvement since CT scan from 03/02/2023. I discussed this with the patient and daughter using a interpreter and translator. Will try the patient on oxycodone instead of her tramadol and she will follow up with Urology <Tim Hernandez - Last Filed: 03/10/23 20:29> Differential Diagnosis Flank pain Ureteral stents Obstructive uropathy ORION Chronic kidney disease Back pain <Tim Hernandez - Last Filed: 03/10/23 20:29> Lab Data MDM Lab Attestation statement: I reviewed the patient's lab results. <Tim Hernandez - Last Filed: 03/10/23 20:29> Result Diagrams: 03/10/23 11:22 03/10/23 11:22 <CLAIRE Oreilly - Last Filed: 03/10/23 15:20> Labs: Lab Results 03/10/23 03/10/23 03/10/23 Range/Units 11:22 11:22 11:29 WBC 7.6 (4.8-10.8) X10*3/uL RBC 3.58 L (4.20-5.50) X10*6/uL Hgb 10.0 L (12.0-16.0) g/dl Hct 31.5 L (37.0-47.0) % MCV 88.0 (80.0-98.0) fL MCH 27.9 (27.0-33.0) pg MCHC 31.7 (31.0-35.0) g/dl RDW 14.3 (11.0-16.0) % Plt Count 346 D (160-400) X10*3/uL MPV 10.4 (9.4-12.3) fL Absolute Nucleated RBC 0.000 (0.0-0.012) X10*3/uL Nucleated RBC % (auto) 0.0 (0.0-0.2) /100WBC Sodium 141 (135-145) mmol/L Potassium 3.9 (3.3-5.1) mmol/L Chloride 106 (96-108) mmol/L Carbon Dioxide 27 (22-29) mmol/L Anion Gap 12 (12-20) BUN 19 H (9-16) mg/dL Creatinine 1.05 (0.5-1.4) mg/dL Estim Creat Clear Calc 45.5 Estimated GFR 51 Random Glucose 138 H (60-115) mg/dL Calcium 8.8 (8.4-10.2) mg/dL Urine Color Red A Urine Appearance Cloudy Urine pH 8.0 (5.0-9.0) Ur Specific [place] 1.015 (1.005-1.025) Urine Protein 100 (2+) H (Neg-Trace) mg/dL Urine Glucose (UA) 100 H (Negative) mg/dL Urine Ketones Negative (Negative) mg/dL Urine Blood Large (3+) H (Negative) Urine Nitrite Negative (Negative) Ur Leukocyte Esterase Small (1+) H (Negative) Urine RBC >20 H (0-2) /HPF Urine WBC 11-20 H (0-5) /HPF Ur Squamous Epith Cells 3-5 (0-2) /HPF Urine Bacteria None Seen (None Seen) Hyaline Casts 0-2 (0-2) /LPF <CLAIRE Oreilly - Last Filed: 03/10/23 15:20> Lab Results 03/10/23 03/10/23 03/10/23 Range/Units 11:22 11:22 11:29 WBC 7.6 (4.8-10.8) X10*3/uL RBC 3.58 L (4.20-5.50) X10*6/uL Hgb 10.0 L (12.0-16.0) g/dl Hct 31.5 L (37.0-47.0) % MCV 88.0 (80.0-98.0) fL MCH 27.9 (27.0-33.0) pg MCHC 31.7 (31.0-35.0) g/dl RDW 14.3 (11.0-16.0) % Plt Count 346 D (160-400) X10*3/uL MPV 10.4 (9.4-12.3) fL Absolute Nucleated RBC 0.000 (0.0-0.012) X10*3/uL Nucleated RBC % (auto) 0.0 (0.0-0.2) /100WBC Sodium 141 (135-145) mmol/L Potassium 3.9 (3.3-5.1) mmol/L Chloride 106 (96-108) mmol/L Carbon Dioxide 27 (22-29) mmol/L Anion Gap 12 (12-20) BUN 19 H (9-16) mg/dL Creatinine 1.05 (0.5-1.4) mg/dL Estim Creat Clear Calc 45.5 Estimated GFR 51 Random Glucose 138 H (60-115) mg/dL Calcium 8.8 (8.4-10.2) mg/dL Urine Color Red A Urine Appearance Cloudy Urine pH 8.0 (5.0-9.0) Ur Specific [place] 1.015 (1.005-1.025) Urine Protein 100 (2+) H (Neg-Trace) mg/dL Urine Glucose (UA) 100 H (Negative) mg/dL Urine Ketones Negative (Negative) mg/dL Urine Blood Large (3+) H (Negative) Urine Nitrite Negative (Negative) Ur Leukocyte Esterase Small (1+) H (Negative) Urine RBC >20 H (0-2) /HPF Urine WBC 11-20 H (0-5) /HPF Ur Squamous Epith Cells 3-5 (0-2) /HPF Urine Bacteria None Seen (None Seen) Hyaline Casts 0-2 (0-2) /LPF <Tim Hernandez - Last Filed: 03/10/23 20:29> Independent Interpretation I performed an independent interpretation of an: Ultrasound (Resolution of bilateral obstructive uropathy) <Tim Hernandez - Last Filed: 03/10/23 20:29> Discharge Plan Discharge Clinical Impression: Acute flank pain <CLAIRE Oreilly - Last Filed: 03/10/23 15:20> Patient Disposition: Home, Self-Care <CLAIRE Oreilly - Last Filed: 03/10/23 15:20> Instructions: Flank Pain (ED) <CLAIRE Oreilly - Last Filed: 03/10/23 15:20> Additional Instructions: Your workup in the emergency department today shows that your kidney function is back to baseline pain Your ultrasound showed improvement in the swelling of your kidneys. Your urine sample did not show infection. Your pain is likely from the ureteral stents You may take oxycodone instead of tramadol, but do not take these medications together You may also use Tylenol which is safe to mix with oxycodone Follow-up with urology <CLAIRE Oreilly - Last Filed: 03/10/23 15:20> Prescriptions: New oxycodone 5 mg tablet 5 mg PO Q6H PRN (Reason: severe pain (scale score 7-10)) Qty: 16 0RF Rx Instructions: Partial Fill upon patient request. No Action simethicone [Gas Relief Extra Strength] 125 mg capsule 125 mg PO TID-QID PRN (Reason: Indigestion) Qty: 120 3RF fluticasone propion-salmeterol [Advair Diskus] 250-50 mcg/dose blister with device 1 puff INHALATION BID albuterol sulfate 2.5 mg /3 mL (0.083 %) solution for nebulization 1 amp inhalation QID PRN (Reason: Wheezing) (DME) blood-glucose meter [[employer] OvernightTouch Verio Flex meter] Mis MISCELLANEOUS DIRECTED diltiazem HCl [Cartia XT] 180 mg capsule,extended release 24hr 1 cap PO DAILY alendronate 70 mg tablet 1 tab PO REESE (DME) OneTouch Verio test strips Strip MISCELLANEOUS BID tramadol 50 mg tablet 1 tab PO TID PRN (Reason: pain) ferrous sulfate [FeroSul] 325 mg (65 mg iron) tablet 1 tab PO Q OTHER DAY (DME) lancets [Eggs OvernightTouch Delica Plus Lancet] 33 gauge misc MISCELLANEOUS BID Eliquis 5 mg tablet 5 mg PO BID Qty: 60 0RF aspirin 81 mg tablet,delayed release (DR/EC) 81 mg PO DAILY pyridoxine (vitamin B6) 100 mg tablet 100 mg PO DAILY famotidine 20 mg tablet 20 mg PO BID Qty: 180 2RF docusate sodium 100 mg capsule 100 mg PO BID Qty: 180 3RF Fiber Laxative (methylcellulo) 500 mg tablet 500 mg PO DAILY Qty: 90 2RF sennosides [senna] 8.6 mg tablet 8.6 mg PO BID PRN (Reason: constipation) Qty: 180 2RF hydrocortisone [Proctosol HC] 2.5 % cream with perineal applicator 1 appl [place] BID-QID PRN (Reason: hemorrhoids) Qty: 30 2RF carvedilol 3.125 mg tablet 3.125 mg PO BID metformin 850 mg tablet 850 mg PO BIDWM atorvastatin 80 mg tablet 80 mg PO DAILY albuterol sulfate [Ventolin HFA] 90 mcg/actuation HFA aerosol inhaler 2 puff inhalation Q4-6H PRN (Reason: Wheezing) <CLAIRE Oreilly - Last Filed: 03/10/23 15:20>
[2023-03-10 15:17] VITALS: BP 173/82; PULSE 95; RESP 18; TEMP 36; O2SAT 97
[2023-03-10] MEDS: oxyCODONE HCl Immed Release 5 MG TABLET PO (20:31)
--- NOTE | 2023-03-10 20:38 | PC.NURSE ---
pt reporting intermittent 7/10 kidney pain, worse with movement, vss, medicated per provider order.
[2023-03-10 20:40] VITALS: BP 145/89; PULSE 99; RESP 18; O2SAT 99
== END 2023-03-10 20:41 | disposition home or self-care (01) ==
PROVIDERS: Emergency Provider Emergency Medicine; PCP Registered Nurse
DX: R10.9 Unspecified abdominal pain (principal); I48.91 Unspecified atrial fibrillation; R31.9 Hematuria, unspecified; Z79.899 Other long term (current) drug therapy
CPT/HCPCS: 36415; 76775; 80048; 81001; 85027; 87086; 99284

== ENCOUNTER 2023-03-13 13:07 | Outpatient (REF) | payer OTHER, SELFPAY ==
--- NOTE | ~2023-03-13 | US_ITS ---
EXAMINATION: US LOWER EXTREMITY VENOUS (REFLUX EXAM), BILATERAL CLINICAL INDICATION: Chronic venous insufficiency with lower extremity varicose veins, pain and inflammation COMPARISON: 07/08/18 TECHNIQUE: Color flow triplex imaging and compression Doppler was performed to evaluate both the deep and the superficial systems bilaterally. To evaluate the superficial system, the examination was performed in the upright position. Color-flow Doppler ultrasound and compression ultrasound were utilized. In addition, maneuvers were utilized to demonstrate reflux. FINDINGS: 1. DEEP VENOUS ULTRASOUND OF THE RIGHT LOWER EXTREMITY: Common Femoral Vein: Compressible, normal respiratory variation and augmented flow. Femoral Vein: Compressible, normal color flow and augmentation. Popliteal Vein: Compressible, normal augmentation. Deep Reflux: There is no evidence of reflux in the deep system in either the common femoral vein or the popliteal vein. There is no evidence of a Song's cyst. 2. SUPERFICIAL ULTRASOUND WITH DOPPLER OF RIGHT LOWER EXTREMITY: GREAT SAPHENOUS VEIN: Saphenofemoral Junction: 1.0 cm; Reflux: 0 ms Proximal Thigh: 0.3 cm; Reflux: 0 ms Mid Thigh: 0.3 cm; Reflux: 0 ms Above Knee: 0.3 cm; Reflux: 0 ms At Knee: 0.2 cm; Reflux: 0 ms Below Knee: 0.2 cm; Reflux: 0 ms Mid Calf: 0.2 cm; Reflux: 852 ms Ankle: 0.2 cm; Reflux: 2352 ms DUPLICATED MEDIAL GREAT SAPHENOUS VEIN: Diameter: None Imaged Reflux: NA DUPLICATED LATERAL GREAT SAPHENOUS VEIN: Diameter: 0.3 cm Reflux: None SMALL SAPHENOUS VEIN: Proximal: 0.2 cm; Reflux: 0 ms Distal: 0.2 cm; Reflux: 0 ms VEIN OF GIACOMINI: None Imaged. PERFORATORS: Location: None significant Size: NA Reflux: NA VARICOSITIES: Location: Mid thigh Size: 0.3 cm Reflux: None 3. DEEP VENOUS ULTRASOUND OF THE LEFT LOWER EXTREMITY: Common Femoral Vein: Compressible, normal respiratory variation and augmented flow. Femoral Vein: Compressible, normal color flow and augmentation. Popliteal Vein: Compressible, normal augmentation. Deep Reflux: There is no evidence of reflux in the deep system in either the common femoral vein or the popliteal vein. There is no evidence of a Song's cyst. 4. SUPERFICIAL ULTRASOUND WITH DOPPLER OF LEFT LOWER EXTREMITY: GREAT SAPHENOUS VEIN: Saphenofemoral Junction: 0.8 cm; Reflux: 0 ms Proximal Thigh: 0.5 cm; Reflux: 0 ms Mid Thigh: 0.3 cm; Reflux: 0 ms Above Knee: 0.2 cm; Reflux: 0 ms At Knee: 0.3 cm; Reflux: 0 ms Below Knee: 0.2 cm; Reflux: 0 ms Mid Calf: 0.2 cm; Reflux: 0 ms Ankle: 0.1 cm; Reflux: 0 ms DUPLICATED MEDIAL GREAT SAPHENOUS VEIN: Diameter: None Imaged Reflux: NA DUPLICATED LATERAL GREAT SAPHENOUS VEIN: Diameter: 0.3 cm Reflux: None SMALL SAPHENOUS VEIN: Proximal: 0.4 cm; Reflux: 0 ms Distal: 0.2 cm; Reflux: 0 ms VEIN OF GIACOMINI: None Imaged. PERFORATORS: Location: None significant Size: NA Reflux: NA VARICOSITIES: Location: Posterior calf off the small saphenous vein, mid thigh and proximal calf off the great saphenous Size: 0.2 to 0.3 cm Reflux: None US/US venous duplex LE BI IMPRESSION: Right: Focal reflux in the mid to distal calf of the great saphenous vein. Small varicosity without significant reflux as described above Left: No significant reflux in the left great saphenous or small saphenous vein. Small varicosities without significant reflux as described above
== END 2023-03-13 13:08 | disposition home or self-care (01) ==
LOC: HO.US 13:07
PROVIDERS: PCP Registered Nurse; Visit Provider Surgery Vascular Surgery
DX: I83.893 Varicose veins of bilateral lower extremities with other complications (principal)
CPT/HCPCS: 93970

== ENCOUNTER → 2023-03-16 10:12 | Outpatient (BNVA) | payer OTHER, SELFPAY | PROVIDERS: PCP Registered Nurse; Visit Provider Urology | DX: N13.30 Unspecified hydronephrosis (principal); N18.9 Chronic kidney disease, unspecified; N13.9 Obstructive and reflux uropathy, unspecified; N20.0 Calculus of kidney; E11.9 Type 2 diabetes mellitus without complications; I10 Essential (primary) hypertension; J45.909 Unspecified asthma, uncomplicated; I48.20 Chronic atrial fibrillation, unspecified; Z09 Encounter for follow-up examination after completed treatment for conditions other than malignant neoplasm; Z96.0 Presence of urogenital implants; Z79.01 Long term (current) use of anticoagulants; Z79.84 Long term (current) use of oral hypoglycemic drugs; Z79.891 Long term (current) use of opiate analgesic; Z79.899 Other long term (current) drug therapy | CPT/HCPCS: 99212 ==

== ENCOUNTER 2023-03-26 12:22 | Emergency (ER) | payer OTHER, SELFPAY ==
--- NOTE | ~2023-03-26 | XR_ITS ---
EXAMINATION: XR CHEST CLINICAL INFORMATION: SOB COMPARISON: None available. TECHNIQUE: Frontal view of the chest was obtained. FINDINGS: The lungs are well-expanded and clear of acute pneumonic process. Heart size is enlarged. Pulmonary vascularity is normal. There is mild spondylosis dorsal spine. XR/XR chest 1V IMPRESSION: Mild cardiomegaly. No acute process seen.
[2023-03-26 12:26] VITALS: BP 149/60; PULSE 63; RESP 18; TEMP 37.1; O2SAT 96; BMI 36.9
--- NOTE | 2023-03-26 12:36 | ED.RECABL ---
HPI - Recheck/Abnormal Lab/Rx General Chief Complaint: Recheck/Abnormal Lab/Rx <CLAIER Brunson - Last Filed: 03/26/23 12:37> Stated Complaint: blood transfusion abnormal labs <CLAIRE Brunson - Last Filed: 03/26/23 12:37> Time Seen by Provider: 03/26/23 14:20 <CLAIRE Brunson - Last Filed: 03/26/23 12:37> Source: patient, family (Daughter) and certified court interpreter <London Hernández MD - Last Filed: 03/26/23 16:03> Mode of arrival: ambulatory <London Hernández MD - Last Filed: 03/26/23 16:03> Limitations: no limitations <London Hernández MD - Last Filed: 03/26/23 16:03> History of Present Illness HPI narrative: This 78-year-old female with past medical history significant for AFib with RVR on Eliquis, anxiety, diabetes, kidney stones, asthma presents for evaluation of generalized weakness, patient was seen by PCP and was told that her hemoglobin dropped from 9-7 and advised the patient to come to the emergency department for possible blood transfusion. Patient was admitted here from 03/02/2023 to 03/05/23 for bilateral obstructive uropathy with ORION She underwent bilateral ureteral stent placement on 03/03/2023, patient since then been noticing blood in the urine that has been constant for the past 3 weeks. <London Hernández MD - Last Filed: 03/26/23 16:03> Related Data Home Medications: Home Medications Medication Instructions Recorded Confirmed albuterol sulfate 2.5 mg/3 mL 1 amp inhalation QID PRN Wheezing 09/06/22 03/16/23 (0.083 %) solution for nebulization alendronate 70 mg tablet 1 tab PO REESE 09/06/22 03/16/23 blood sugar diagnostic (OneTouch 09/06/22 03/16/23 Verio test strips) blood-glucose meter (OneTouch 09/06/22 03/16/23 Verio Flex Meter) diltiazem HCl 180 mg 1 cap PO DAILY 09/06/22 03/16/23 capsule,extended release 24 hr (Cartia XT) ferrous sulfate 325 mg (65 mg 1 tab PO Q OTHER DAY 09/06/22 03/16/23 iron) tablet (FeroSul) fluticasone 250 mcg-salmeterol 50 1 puff inhalation BID 09/06/22 03/16/23 mcg/dose blistr powdr for inhalation (Advair Diskus) lancets 33 gauge (OneTouch Delica 09/06/22 03/16/23 Plus Lancet) albuterol sulfate 90 mcg/actuation 2 puff inhalation Q4-6H PRN 10/23/22 03/16/23 aerosol inhaler (Ventolin HFA) Wheezing atorvastatin 80 mg tablet 80 mg PO DAILY 10/23/22 03/16/23 carvedilol 3.125 mg tablet 3.125 mg PO BID 10/23/22 03/16/23 metformin 850 mg tablet 850 mg PO BIDWM 10/23/22 03/16/23 aspirin 81 mg tablet,delayed 81 mg PO DAILY 03/02/23 03/16/23 release pyridoxine (vitamin B6) 100 mg 100 mg PO DAILY 03/02/23 03/16/23 tablet Previous Rx's Medication Instructions Recorded famotidine 20 mg tablet 20 mg PO BID #180 tabs 10/27/22 simethicone 125 mg capsule (Gas 125 mg PO TID-QID PRN Indigestion 11/18/22 Relief Extra Strength) #120 caps apixaban 5 mg tablet (Eliquis) 5 mg PO BID #60 tabs 12/27/22 docusate sodium 100 mg capsule 100 mg PO BID #180 caps 01/19/23 hydrocortisone 2.5 % topical cream 1 appl [place] BID-QID PRN hemorrhoids 01/19/23 with perineal applicator #30 grams (Proctosol HC) methylcellulose (laxative) 500 mg 500 mg PO DAILY #90 tabs 01/19/23 tablet (Fiber Laxative (methylcellulose)) sennosides 8.6 mg tablet (senna) 8.6 mg PO BID PRN constipation 01/19/23 #180 tabs oxycodone 5 mg tablet 5 mg PO Q6H PRN severe pain (scale 03/10/23 score 7-10) #16 tabs mirabegron 50 mg tablet,extended 50 mg PO DAILY #30 tabs 03/16/23 release 24 hr (Myrbetriq) cefuroxime axetil 500 mg tablet 500 mg PO BID #20 tabs 03/26/23 <CLAIRE Brunson - Last Filed: 03/26/23 12:37> Allergies/Adverse Reactions: Allergies Allergy/AdvReac Type Severity Reaction Status Date / Time montelukast [Singulair] Allergy Unknown itching/marysol Verified 03/16/23 10:43 h From Singulair Allergy Intermediate RASH Uncoded 03/16/23 10:43 <CLAIRE Brunson - Last Filed: 03/26/23 12:37> Review of Systems Review of Systems: All other systems are reviewed and are negative Constitutional: Reports as per HPI and Reports no additional constitutional complaints Eyes: Reports as per HPI and Reports no additional eye complaints Reports system reviewed and no additional complaints, except as documented Cardiovascular: Reports as per HPI and Reports no additional cardiovascular complaints Respiratory: Reports as per HPI and Reports no additional respiratory complaints Gastrointestinal: Reports as per HPI and Reports no additional gastrointestinal complaints Genitourinary: Reports no additional female genitourinary complaints Musculoskeletal: Reports no additional musculoskeletal complaints Skin/Breast: Reports system reviewed and no additional complaints, except as docu Psychiatric: Reports no additional psychiatric complaints Endocrine: Reports no additional endocrine complaints Hematologic/Lymphatic: Reports no additional hematologic/lymphatic complaints Allergic/Immunologic: Reports no additional allergic/immunologic complaints Reports system reviewed and no additional complaints, except as documented and Reports Abnormal speech present <London Hernández MD - Last Filed: 03/26/23 16:03> [facility] Past Medical History Medical History: Medical History Alcohol abuse Anxiety Arthritis Asthma Asymmetrical thyroid Atrial fibrillation CHF (congestive heart failure) COPD (chronic obstructive pulmonary disease) COVID-19 Diabetes Gout Hypertension Knee arthropathy Nephrolithiasis Obstruction, uropathy Osteoarthritis Renal cyst, acquired, left Thrombosed external hemorrhoid <CLAIRE Brunson - Last Filed: 03/26/23 12:37> Surgical History: Surgical History History of total knee arthroplasty Hx of colonoscopy <CLAIRE Brunson - Last Filed: 03/26/23 12:37> Social History Social History: Social History Household Members: None Household Members Other:: DAUGHTER Housing: Apartment Housing Other:: low income housing Do you presently have visiting nurse or other home services: No Unable to assess alcohol history related to: Unknown Alcohol intake: never Patient Tobacco Use Status: Never used Tobacco e-Cigarette/Vaping Use: Never Used Second Hand Smoke Exposure: No Advance Directives: Yes Advance Directives on File: Yes Advance Directives Date on File: 09/07/22 service: No Current occupational status: disabled <CLAIRE Brunson - Last Filed: 03/26/23 12:37> Physical Exam Vital Signs: Vital Signs: Last Vital Signs Temp 98.7 F 03/26/23 12:26 Pulse 63 03/26/23 12:26 Resp 18 03/26/23 12:26 BP 149/60 H 03/26/23 12:26 Pulse Ox 96 03/26/23 12:26 O2 Del Method Room Air 03/26/23 12:26 BMI result Body Mass Index 36.9 <CLAIRE Brunson - Last Filed: 03/26/23 12:37> Vital Signs: Last Vital Signs Temp 98.7 F 03/26/23 12:26 Pulse 63 03/26/23 12:26 Resp 18 03/26/23 12:26 BP 149/60 H 03/26/23 12:26 Pulse Ox 96 03/26/23 12:26 O2 Del Method Room Air 03/26/23 12:26 BMI result Body Mass Index 36.9 Vital signs have been reviewed as appeared to be correct. Blood pressure normal. Heart rate normal. Respiration rate normal. Temperature normal. Oxygen saturation normal. <London Hernández MD - Last Filed: 03/26/23 16:03> Appearance: Slightly pale, Alert. Oriented X3. No acute distress. Head: Normal external exam. Normocephalic. Atraumatic. No Gonzalez signs noted. No raccoon eyes noted Eyes: PERRLA. EOMI. Conjunctiva and sclera normal. Eyelids normal. ENT: TM's Normal. Pharynx normal. Uvula midline. Moist mucous membranes. No trismus noted. No drooling noted. No muffled voice noted. Neck: Normal inspection. Neck supple. FROM. No adenopathy. Thyroid Normal. No meningeal signs. No neck mass noted. CVS: Normal heart rate and rhythm. Heart sound normal. No murmurs noted. Pulses normal throughout. Respiratory: No respiratory distress. Painless inspiration. Breath sounds normal. No wheezes/rales/rhonchi noted. Chest nontender. No accessory muscle usage noted or decreased air movement noted. Abdomen: Soft and nontender. Bowel sounds normal in all 4 quadrants. No distention noted. No organomegaly noted. No visible injury noted. Back: No CVA tenderness. Full range of motion noted. Skin: Skin warm and dry. Normal skin color. Normal skin turgor. No rashes/lesions/lacerations noted. Extremities: No lower extremity edema. Extremities exhibit normal range of motion. Extremities nontender. Neuro: Oriented X 3. Cranial nerve exam: II-XII are grossly intact No motor deficit. No sensory deficit. Reflexes normal. <London Hernández MD - Last Filed: 03/26/23 16:03> Course Course Course Narrative: This is an RME: Additional HPI, ROS, PE not included below will be deferred to primary provider. 78 year old female presenting with abnormal labs hgb and hct. Was told by PCP that her hgb was 9 something and now 7 something. Reports fatigue malaise VSS Plan- labs, type and screen, OBS <CLAIRE Brunson - Last Filed: 03/26/23 12:37> Reevaluation(s) Reevaluation #1: 78-year-old female came in for generalized weakness PCP did an out patient CBC found the patient is more anemic than her baseline, CBC was repeated x2 new emergency department and hemoglobin level is 9.7 with no indication for blood transfusion with this level, however patient found to have UTI and patient had bilateral stent placed will start the patient on cefuroxime with urgent follow-up with Dr. Tellez, Dr. Tellez saw the patient last week. The case was discussed with Dr. Liriano who agreed on the plan. <London Hernández MD - Last Filed: 03/26/23 16:03> Medical Decision Making Differential Diagnosis Differential Diagnoses: The differential diagnosis associated with the presentation includes (Severe anemia, blood transfusion requirements, electrolytes abnormalities, sepsis, UTI.) <London Hernández MD - Last Filed: 03/26/23 16:03> Admission/Observation Consideration of admission/observation: Escalation of care including admission/observation considered <London Hernández MD - Last Filed: 03/26/23 16:03> Consult Healthcare Provider Management of the patient was discussed with: Automotive [employer] Clerk (Dr. Jacquie Mcgraw.) <London Hernández MD - Last Filed: 03/26/23 16:03> Lab Data MDM Lab Attestation statement: I reviewed the patient's lab results. <London Hernández MD - Last Filed: 03/26/23 16:03> Result Diagrams: 03/26/23 12:58 03/26/23 12:58 <CLAIRE Brunson - Last Filed: 03/26/23 12:37> Labs: Lab Results 03/26/23 03/26/23 03/26/23 Range/Units 12:58 12:58 12:58 WBC 5.0 (4.8-10.8) X10*3/uL RBC 3.58 L (4.20-5.50) X10*6/uL Hgb 9.7 L (12.0-16.0) g/dl Hct 31.9 L (37.0-47.0) % MCV 89.1 (80.0-98.0) fL MCH 27.1 (27.0-33.0) pg MCHC 30.4 L (31.0-35.0) g/dl RDW 14.8 (11.0-16.0) % Plt Count 287 (160-400) X10*3/uL MPV 10.0 (9.4-12.3) fL Immature Gran % (Auto) 0.2 (0.0-0.4) % Neut % (Auto) 64.3 (45-73) % Lymph % (Auto) 17.9 L (20-40) % Person % (Auto) 9.8 (2-11) % Eos % (Auto) 6.6 H (0-4) % Baso % (Auto) 1.2 (0-2) % Lymph # (Auto) 0.9 L (1.2-4.9) X10*3/uL Person # (Auto) 0.5 (0.1-1.2) X10*3/uL Eos # (Auto) 0.3 (0.0-0.4) X10*3/uL Baso # (Auto) 0.1 (0.0-0.2) X10*3/uL Abs Immat Gran (auto) 0.01 (0.00-0.03) X10*3/uL Absolute Neuts (auto) 3.2 (2.0-8.3) x10*3/uL Absolute Nucleated RBC 0.000 (0.0-0.012) X10*3/uL Nucleated RBC % (auto) 0.0 (0.0-0.2) /100WBC PT 12.2 (10.0-13.1) SEC INR 1.1 (0.9-1.1) Sodium 144 (135-145) mmol/L Potassium 4.1 (3.3-5.1) mmol/L Chloride 108 (96-108) mmol/L Carbon Dioxide 24 (22-29) mmol/L Anion Gap 16 (12-20) BUN 25 H (9-16) mg/dL Creatinine 1.12 (0.5-1.4) mg/dL Estim Creat Clear Calc 42.8 Estimated GFR 47 Random Glucose 143 H (60-115) mg/dL Calcium 10.1 D (8.4-10.2) mg/dL Magnesium 1.9 (1.6-2.6) mg/dL Total Bilirubin 0.7 (0.0-1.0) mg/dL AST 35 H (5-31) U/L ALT 32 H (0-31) U/L Alkaline Phosphatase 107 (39-117) U/L Troponin I High Sens (<3.5-17.0) ng/L Total Protein 7.2 (6.5-8.0) g/dL Albumin 4.1 (3.5-5.0) g/dL Urine Color Urine Appearance Urine pH (5.0-9.0) Ur Specific [place] (1.005-1.025) Urine Protein (Neg-Trace) mg/dL Urine Glucose (UA) (Negative) mg/dL Urine Ketones (Negative) mg/dL Urine Blood (Negative) Urine Nitrite (Negative) Ur Leukocyte Esterase (Negative) Urine RBC (0-2) /HPF Urine WBC (0-5) /HPF Ur Squamous Epith Cells (0-2) /HPF Urine Bacteria (None Seen) Hyaline Casts (0-2) /LPF Blood Type Antibody Screen 03/26/23 03/26/23 03/26/23 Range/Units 14:58 14:58 14:58 WBC 5.8 (4.8-10.8) X10*3/uL RBC 3.56 L (4.20-5.50) X10*6/uL Hgb 9.7 L (12.0-16.0) g/dl Hct 31.7 L (37.0-47.0) % MCV 89.0 (80.0-98.0) fL MCH 27.2 (27.0-33.0) pg MCHC 30.6 L (31.0-35.0) g/dl RDW 14.9 (11.0-16.0) % Plt Count 267 (160-400) X10*3/uL MPV 10.0 (9.4-12.3) fL Immature Gran % (Auto) 0.2 (0.0-0.4) % Neut % (Auto) 62.6 (45-73) % Lymph % (Auto) 19.7 L (20-40) % Person % (Auto) 10.7 (2-11) % Eos % (Auto) 5.9 H (0-4) % Baso % (Auto) 0.9 (0-2) % Lymph # (Auto) 1.1 L (1.2-4.9) X10*3/uL Person # (Auto) 0.6 (0.1-1.2) X10*3/uL Eos # (Auto) 0.3 (0.0-0.4) X10*3/uL Baso # (Auto) 0.1 (0.0-0.2) X10*3/uL Abs Immat Gran (auto) 0.01 (0.00-0.03) X10*3/uL Absolute Neuts (auto) 3.6 (2.0-8.3) x10*3/uL Absolute Nucleated RBC 0.000 (0.0-0.012) X10*3/uL Nucleated RBC % (auto) 0.0 (0.0-0.2) /100WBC PT (10.0-13.1) SEC INR (0.9-1.1) Sodium (135-145) mmol/L Potassium (3.3-5.1) mmol/L Chloride (96-108) mmol/L Carbon Dioxide (22-29) mmol/L Anion Gap (12-20) BUN (9-16) mg/dL Creatinine (0.5-1.4) mg/dL Estim Creat Clear Calc Estimated GFR Random Glucose (60-115) mg/dL Calcium (8.4-10.2) mg/dL Magnesium (1.6-2.6) mg/dL Total Bilirubin (0.0-1.0) mg/dL AST (5-31) U/L ALT (0-31) U/L Alkaline Phosphatase (39-117) U/L Troponin I High Sens 11.9 D (<3.5-17.0) ng/L Total Protein (6.5-8.0) g/dL Albumin (3.5-5.0) g/dL Urine Color BROWN Urine Appearance Turbid Urine pH 6.0 (5.0-9.0) Ur Specific [place] 1.025 (1.005-1.025) Urine Protein 100 (2+) H (Neg-Trace) mg/dL Urine Glucose (UA) Negative (Negative) mg/dL Urine Ketones Trace (Negative) mg/dL Urine Blood Large (3+) H (Negative) Urine Nitrite Negative (Negative) Ur Leukocyte Esterase Moderate (2+) H (Negative) Urine RBC >20 H (0-2) /HPF Urine WBC 21-50 H (0-5) /HPF Ur Squamous Epith Cells 6-10 (0-2) /HPF Urine Bacteria None Seen (None Seen) Hyaline Casts 0-2 (0-2) /LPF Blood Type Antibody Screen 03/26/23 Range/Units 14:59 WBC (4.8-10.8) X10*3/uL RBC (4.20-5.50) X10*6/uL Hgb (12.0-16.0) g/dl Hct (37.0-47.0) % MCV (80.0-98.0) fL MCH (27.0-33.0) pg MCHC (31.0-35.0) g/dl RDW (11.0-16.0) % Plt Count (160-400) X10*3/uL MPV (9.4-12.3) fL Immature Gran % (Auto) (0.0-0.4) % Neut % (Auto) (45-73) % Lymph % (Auto) (20-40) % Person % (Auto) (2-11) % Eos % (Auto) (0-4) % Baso % (Auto) (0-2) % Lymph # (Auto) (1.2-4.9) X10*3/uL Person # (Auto) (0.1-1.2) X10*3/uL Eos # (Auto) (0.0-0.4) X10*3/uL Baso # (Auto) (0.0-0.2) X10*3/uL Abs Immat Gran (auto) (0.00-0.03) X10*3/uL Absolute Neuts (auto) (2.0-8.3) x10*3/uL Absolute Nucleated RBC (0.0-0.012) X10*3/uL Nucleated RBC % (auto) (0.0-0.2) /100WBC PT (10.0-13.1) SEC INR (0.9-1.1) Sodium (135-145) mmol/L Potassium (3.3-5.1) mmol/L Chloride (96-108) mmol/L Carbon Dioxide (22-29) mmol/L Anion Gap (12-20) BUN (9-16) mg/dL Creatinine (0.5-1.4) mg/dL Estim Creat Clear Calc Estimated GFR Random Glucose (60-115) mg/dL Calcium (8.4-10.2) mg/dL Magnesium (1.6-2.6) mg/dL Total Bilirubin (0.0-1.0) mg/dL AST (5-31) U/L ALT (0-31) U/L Alkaline Phosphatase (39-117) U/L Troponin I High Sens (<3.5-17.0) ng/L Total Protein (6.5-8.0) g/dL Albumin (3.5-5.0) g/dL Urine Color Urine Appearance Urine pH (5.0-9.0) Ur Specific [place] (1.005-1.025) Urine Protein (Neg-Trace) mg/dL Urine Glucose (UA) (Negative) mg/dL Urine Ketones (Negative) mg/dL Urine Blood (Negative) Urine Nitrite (Negative) Ur Leukocyte Esterase (Negative) Urine RBC (0-2) /HPF Urine WBC (0-5) /HPF Ur Squamous Epith Cells (0-2) /HPF Urine Bacteria (None Seen) Hyaline Casts (0-2) /LPF Blood Type O Negative Antibody Screen NEGATIVE <CLAIRE Brunson - Last Filed: 03/26/23 12:37> Lab Results 03/26/23 03/26/23 03/26/23 Range/Units 12:58 12:58 12:58 WBC 5.0 (4.8-10.8) X10*3/uL RBC 3.58 L (4.20-5.50) X10*6/uL Hgb 9.7 L (12.0-16.0) g/dl Hct 31.9 L (37.0-47.0) % MCV 89.1 (80.0-98.0) fL MCH 27.1 (27.0-33.0) pg MCHC 30.4 L (31.0-35.0) g/dl RDW 14.8 (11.0-16.0) % Plt Count 287 (160-400) X10*3/uL MPV 10.0 (9.4-12.3) fL Immature Gran % (Auto) 0.2 (0.0-0.4) % Neut % (Auto) 64.3 (45-73) % Lymph % (Auto) 17.9 L (20-40) % Person % (Auto) 9.8 (2-11) % Eos % (Auto) 6.6 H (0-4) % Baso % (Auto) 1.2 (0-2) % Lymph # (Auto) 0.9 L (1.2-4.9) X10*3/uL Person # (Auto) 0.5 (0.1-1.2) X10*3/uL Eos # (Auto) 0.3 (0.0-0.4) X10*3/uL Baso # (Auto) 0.1 (0.0-0.2) X10*3/uL Abs Immat Gran (auto) 0.01 (0.00-0.03) X10*3/uL Absolute Neuts (auto) 3.2 (2.0-8.3) x10*3/uL Absolute Nucleated RBC 0.000 (0.0-0.012) X10*3/uL Nucleated RBC % (auto) 0.0 (0.0-0.2) /100WBC PT 12.2 (10.0-13.1) SEC INR 1.1 (0.9-1.1) Sodium 144 (135-145) mmol/L Potassium 4.1 (3.3-5.1) mmol/L Chloride 108 (96-108) mmol/L Carbon Dioxide 24 (22-29) mmol/L Anion Gap 16 (12-20) BUN 25 H (9-16) mg/dL Creatinine 1.12 (0.5-1.4) mg/dL Estim Creat Clear Calc 42.8 Estimated GFR 47 Random Glucose 143 H (60-115) mg/dL Calcium 10.1 D (8.4-10.2) mg/dL Magnesium 1.9 (1.6-2.6) mg/dL Total Bilirubin 0.7 (0.0-1.0) mg/dL AST 35 H (5-31) U/L ALT 32 H (0-31) U/L Alkaline Phosphatase 107 (39-117) U/L Troponin I High Sens (<3.5-17.0) ng/L Total Protein 7.2 (6.5-8.0) g/dL Albumin 4.1 (3.5-5.0) g/dL Urine Color Urine Appearance Urine pH (5.0-9.0) Ur Specific [place] (1.005-1.025) Urine Protein (Neg-Trace) mg/dL Urine Glucose (UA) (Negative) mg/dL Urine Ketones (Negative) mg/dL Urine Blood (Negative) Urine Nitrite (Negative) Ur Leukocyte Esterase (Negative) Urine RBC (0-2) /HPF Urine WBC (0-5) /HPF Ur Squamous Epith Cells (0-2) /HPF Urine Bacteria (None Seen) Hyaline Casts (0-2) /LPF Blood Type Antibody Screen 03/26/23 03/26/23 03/26/23 Range/Units 14:58 14:58 14:58 WBC 5.8 (4.8-10.8) X10*3/uL RBC 3.56 L (4.20-5.50) X10*6/uL Hgb 9.7 L (12.0-16.0) g/dl Hct 31.7 L (37.0-47.0) % MCV 89.0 (80.0-98.0) fL MCH 27.2 (27.0-33.0) pg MCHC 30.6 L (31.0-35.0) g/dl RDW 14.9 (11.0-16.0) % Plt Count 267 (160-400) X10*3/uL MPV 10.0 (9.4-12.3) fL Immature Gran % (Auto) 0.2 (0.0-0.4) % Neut % (Auto) 62.6 (45-73) % Lymph % (Auto) 19.7 L (20-40) % Person % (Auto) 10.7 (2-11) % Eos % (Auto) 5.9 H (0-4) % Baso % (Auto) 0.9 (0-2) % Lymph # (Auto) 1.1 L (1.2-4.9) X10*3/uL Person # (Auto) 0.6 (0.1-1.2) X10*3/uL Eos # (Auto) 0.3 (0.0-0.4) X10*3/uL Baso # (Auto) 0.1 (0.0-0.2) X10*3/uL Abs Immat Gran (auto) 0.01 (0.00-0.03) X10*3/uL Absolute Neuts (auto) 3.6 (2.0-8.3) x10*3/uL Absolute Nucleated RBC 0.000 (0.0-0.012) X10*3/uL Nucleated RBC % (auto) 0.0 (0.0-0.2) /100WBC PT (10.0-13.1) SEC INR (0.9-1.1) Sodium (135-145) mmol/L Potassium (3.3-5.1) mmol/L Chloride (96-108) mmol/L Carbon Dioxide (22-29) mmol/L Anion Gap (12-20) BUN (9-16) mg/dL Creatinine (0.5-1.4) mg/dL Estim Creat Clear Calc Estimated GFR Random Glucose (60-115) mg/dL Calcium (8.4-10.2) mg/dL Magnesium (1.6-2.6) mg/dL Total Bilirubin (0.0-1.0) mg/dL AST (5-31) U/L ALT (0-31) U/L Alkaline Phosphatase (39-117) U/L Troponin I High Sens 11.9 D (<3.5-17.0) ng/L Total Protein (6.5-8.0) g/dL Albumin (3.5-5.0) g/dL Urine Color BROWN Urine Appearance Turbid Urine pH 6.0 (5.0-9.0) Ur Specific [place] 1.025 (1.005-1.025) Urine Protein 100 (2+) H (Neg-Trace) mg/dL Urine Glucose (UA) Negative (Negative) mg/dL Urine Ketones Trace (Negative) mg/dL Urine Blood Large (3+) H (Negative) Urine Nitrite Negative (Negative) Ur Leukocyte Esterase Moderate (2+) H (Negative) Urine RBC >20 H (0-2) /HPF Urine WBC 21-50 H (0-5) /HPF Ur Squamous Epith Cells 6-10 (0-2) /HPF Urine Bacteria None Seen (None Seen) Hyaline Casts 0-2 (0-2) /LPF Blood Type Antibody Screen 03/26/23 Range/Units 14:59 WBC (4.8-10.8) X10*3/uL RBC (4.20-5.50) X10*6/uL Hgb (12.0-16.0) g/dl Hct (37.0-47.0) % MCV (80.0-98.0) fL MCH (27.0-33.0) pg MCHC (31.0-35.0) g/dl RDW (11.0-16.0) % Plt Count (160-400) X10*3/uL MPV (9.4-12.3) fL Immature Gran % (Auto) (0.0-0.4) % Neut % (Auto) (45-73) % Lymph % (Auto) (20-40) % Person % (Auto) (2-11) % Eos % (Auto) (0-4) % Baso % (Auto) (0-2) % Lymph # (Auto) (1.2-4.9) X10*3/uL Person # (Auto) (0.1-1.2) X10*3/uL Eos # (Auto) (0.0-0.4) X10*3/uL Baso # (Auto) (0.0-0.2) X10*3/uL Abs Immat Gran (auto) (0.00-0.03) X10*3/uL Absolute Neuts (auto) (2.0-8.3) x10*3/uL Absolute Nucleated RBC (0.0-0.012) X10*3/uL Nucleated RBC % (auto) (0.0-0.2) /100WBC PT (10.0-13.1) SEC INR (0.9-1.1) Sodium (135-145) mmol/L Potassium (3.3-5.1) mmol/L Chloride (96-108) mmol/L Carbon Dioxide (22-29) mmol/L Anion Gap (12-20) BUN (9-16) mg/dL Creatinine (0.5-1.4) mg/dL Estim Creat Clear Calc Estimated GFR Random Glucose (60-115) mg/dL Calcium (8.4-10.2) mg/dL Magnesium (1.6-2.6) mg/dL Total Bilirubin (0.0-1.0) mg/dL AST (5-31) U/L ALT (0-31) U/L Alkaline Phosphatase (39-117) U/L Troponin I High Sens (<3.5-17.0) ng/L Total Protein (6.5-8.0) g/dL Albumin (3.5-5.0) g/dL Urine Color Urine Appearance Urine pH (5.0-9.0) Ur Specific [place] (1.005-1.025) Urine Protein (Neg-Trace) mg/dL Urine Glucose (UA) (Negative) mg/dL Urine Ketones (Negative) mg/dL Urine Blood (Negative) Urine Nitrite (Negative) Ur Leukocyte Esterase (Negative) Urine RBC (0-2) /HPF Urine WBC (0-5) /HPF Ur Squamous Epith Cells (0-2) /HPF Urine Bacteria (None Seen) Hyaline Casts (0-2) /LPF Blood Type O Negative Antibody Screen NEGATIVE <London Hernández MD - Last Filed: 03/26/23 16:03> Independent Interpretation I performed an independent interpretation of an: Plain X-Ray (Chest: No acute intrathoracic pathology.) <London Hernández MD - Last Filed: 03/26/23 16:03> Radiology Impression Discussion of test interpretation with radiology: I have reviewed the radiologist's reading. <London Hernández MD - Last Filed: 03/26/23 16:03> Discharge Plan Discharge Clinical Impression: Anemia, Acute UTI <CLAIRE Brunson - Last Filed: 03/26/23 12:37> Patient Disposition: Home, Self-Care <CLAIRE Brunson - Last Filed: 03/26/23 12:37> Instructions: Urinary Tract Infection in Women (DC), Anemia (ED) <CLAIRE Brunson - Last Filed: 03/26/23 12:37> Prescriptions: New cefuroxime axetil 500 mg tablet 500 mg PO BID Qty: 20 0RF No Action simethicone [Gas Relief Extra Strength] 125 mg capsule 125 mg PO TID-QID PRN (Reason: Indigestion) Qty: 120 3RF fluticasone propion-salmeterol [Advair Diskus] 250-50 mcg/dose blister with device 1 puff INHALATION BID albuterol sulfate 2.5 mg /3 mL (0.083 %) solution for nebulization 1 amp inhalation QID PRN (Reason: Wheezing) (DME) blood-glucose meter [CosharedTouch Verio Flex meter] Misc MISCELLANEOUS DIRECTED diltiazem HCl [Cartia XT] 180 mg capsule,extended release 24hr 1 cap PO DAILY alendronate 70 mg tablet 1 tab PO REESE (DME) OneTouch Verio test strips Strip MISCELLANEOUS BID ferrous sulfate [FeroSul] 325 mg (65 mg iron) tablet 1 tab PO Q OTHER DAY (DME) lancets [OneTouch Delica Plus Lancet] 33 gauge misc MISCELLANEOUS BID Eliquis 5 mg tablet 5 mg PO BID Qty: 60 0RF aspirin 81 mg tablet,delayed release (DR/EC) 81 mg PO DAILY pyridoxine (vitamin B6) 100 mg tablet 100 mg PO DAILY oxycodone 5 mg tablet 5 mg PO Q6H PRN (Reason: severe pain (scale score 7-10)) Qty: 16 0RF Rx Instructions: Partial Fill upon patient request. famotidine 20 mg tablet 20 mg PO BID Qty: 180 2RF docusate sodium 100 mg capsule 100 mg PO BID Qty: 180 3RF Fiber Laxative (methylcellulo) 500 mg tablet 500 mg PO DAILY Qty: 90 2RF sennosides [senna] 8.6 mg tablet 8.6 mg PO BID PRN (Reason: constipation) Qty: 180 2RF hydrocortisone [Proctosol HC] 2.5 % cream with perineal applicator 1 appl [place] BID-QID PRN (Reason: hemorrhoids) Qty: 30 2RF carvedilol 3.125 mg tablet 3.125 mg PO BID metformin 850 mg tablet 850 mg PO BIDWM atorvastatin 80 mg tablet 80 mg PO DAILY albuterol sulfate [Ventolin HFA] 90 mcg/actuation HFA aerosol inhaler 2 puff inhalation Q4-6H PRN (Reason: Wheezing) Myrbetriq 50 mg tablet extended release 24 hr 50 mg PO DAILY Qty: 30 1RF <CLAIRE Brunson - Last Filed: 03/26/23 12:37> Referrals: Lior Tellez MD [Physician] - Carolyn Ceballos FNP [Primary Care Provider] - <CLAIRE Brunson - Last Filed: 03/26/23 12:37>
[2023-03-26 13:06] LABS: MANUAL DIFF FLAG NO
[2023-03-26 13:07] LABS: Basophils Absolute Auto 0.1 X10*3/uL (0.0-0.2); Basophils Percent Auto 1.2 % (0-2); Eosinophils Absolute Auto 0.3 X10*3/uL (0.0-0.4); Eosinophils Percent Auto 6.6 % (0-4); Hematocrit 31.9 % (37.0-47.0); Hemoglobin 9.7 g/dl (12.0-16.0); Imm Gran Abs Auto 0.01 X10*3/uL (0.00-0.03); Imm Gran Pct Auto 0.2 % (0.0-0.4); Lymphocytes Absolute Auto 0.9 X10*3/uL (1.2-4.9); Lymphocytes Percent Auto 17.9 % (20-40); Mean Corpuscular HGB Conc 30.4 g/dl (31.0-35.0); Mean Corpuscular Hemoglobin 27.1 pg (27.0-33.0); Mean Corpuscular Volume 89.1 fL (80.0-98.0); Monocytes Absolute Auto 0.5 X10*3/uL (0.1-1.2); Monocytes Percent Auto 9.8 % (2-11); Neutrophils Absolute Auto 3.2 x10*3/uL (2.0-8.3); Neutrophils Percent Auto 64.3 % (45-73); Platelet Count 287 X10*3/uL (160-400); Red Blood Count 3.58 X10*6/uL (4.20-5.50); Red Cell Distribution Width 14.8 % (11.0-16.0)
[2023-03-26 13:22] LABS: Alanine Aminotransferase 32 U/L (0-31); Albumin Level 4.1 g/dL (3.5-5.0); Alkaline Phosphatase 107 U/L (39-117); Anion Gap 16 (12-20); Aspartate Amino Transferase 35 U/L (5-31); Bilirubin Total 0.7 mg/dL (0.0-1.0); Blood Urea Nitrogen 25 mg/dL (9-16); Calcium 10.1 mg/dL (8.4-10.2); Carbon Dioxide 24 mmol/L (22-29); Chloride 108 mmol/L (96-108); Creatinine Clr Calc Pharmacy 42.8; Estimated Glomerular Filt Rate 47; Glucose Random 143 mg/dL (60-115); Magnesium 1.9 mg/dL (1.6-2.6); Potassium 4.1 mmol/L (3.3-5.1); Sodium 144 mmol/L (135-145); Total Protein 7.2 g/dL (6.5-8.0)
[2023-03-26 13:37] LABS: INTERNATIONAL NORM RATIO 1.1 (0.9-1.1); Prothrombin Time 12.2 SEC (10.0-13.1)
--- NOTE | 2023-03-26 14:29 | ECG_ITS ---
Test Reason : WEAKNESS Blood Pressure : / mmHG Vent. Rate : 062 BPM Atrial Rate : 000 BPM P-R Int : 000 ms QRS Dur : 086 ms QT Int : 418 ms P-R-T Axes : 000 034 136 degrees QTc Int : 424 ms Atrial fibrillation with premature ventricular or aberrantly conducted complexes ST & T wave abnormality, consider lateral ischemia Abnormal ECG When compared with ECG of 02-MAR-2023 04:02, Vent. rate has decreased BY 55 BPM T wave inversion more evident in Anterior leads Referred By: London Hernández Electronically Signed By:Colby Cadena
[2023-03-26 15:06] LABS: MANUAL DIFF FLAG NO
[2023-03-26 15:09] LABS: Basophils Absolute Auto 0.1 X10*3/uL (0.0-0.2); Basophils Percent Auto 0.9 % (0-2); Eosinophils Absolute Auto 0.3 X10*3/uL (0.0-0.4); Eosinophils Percent Auto 5.9 % (0-4); Hematocrit 31.7 % (37.0-47.0); Hemoglobin 9.7 g/dl (12.0-16.0); Imm Gran Abs Auto 0.01 X10*3/uL (0.00-0.03); Imm Gran Pct Auto 0.2 % (0.0-0.4); Lymphocytes Absolute Auto 1.1 X10*3/uL (1.2-4.9); Lymphocytes Percent Auto 19.7 % (20-40); Mean Corpuscular HGB Conc 30.6 g/dl (31.0-35.0); Mean Corpuscular Hemoglobin 27.2 pg (27.0-33.0); Monocytes Absolute Auto 0.6 X10*3/uL (0.1-1.2); Monocytes Percent Auto 10.7 % (2-11); Neutrophils Absolute Auto 3.6 x10*3/uL (2.0-8.3); Neutrophils Percent Auto 62.6 % (45-73); Platelet Count 267 X10*3/uL (160-400); Red Blood Count 3.56 X10*6/uL (4.20-5.50); Red Cell Distribution Width 14.9 % (11.0-16.0); White Blood Count 5.8 X10*3/uL (4.8-10.8)
[2023-03-26 15:15] LABS: Appearance Urine Turbid; Color Urine BROWN; Glucose Urine UA Negative (Negative); Leukocyte Esterase Urine Moderate (2+) (Negative); Nitrite Urine Negative (Negative); Specific Gravity - Urine 1.025 (1.005-1.025); UMIC TRIGGER UACC YES; Urine Blood Large (3+) (Negative); Urine Ketones Trace mg/dL (Negative); Urine Protein 100 (2+) mg/dL (Neg-Trace)
[2023-03-26 15:18] LABS: Bacteria Urine None Seen (None Seen); Hyaline Casts Urine 0-2 /LPF (0-2); RBC Urine >20 /HPF (0-2); UACC Culture Trigger YES; WBC Urine 21-50 /HPF (0-5)
[2023-03-26 15:30] LABS: Troponin-I High Sensitivity 11.9 ng/L (<3.5-17.0)
--- NOTE | 2023-03-26 15:35 | PC.NURSE ---
Repeat lab work/type and screen obtained, IV established.
[2023-03-26 16:47] VITALS: BP 178/84; PULSE 83; RESP 16; TEMP 36.7; O2SAT 97
== END 2023-03-26 17:01 | disposition home or self-care (01) ==
PROVIDERS: Physician Assistant; Emergency Provider Emergency Medicine; PCP Registered Nurse
DX: D64.9 Anemia, unspecified (principal); N39.0 Urinary tract infection, site not specified; R53.83 Other fatigue; E11.22 Type 2 diabetes mellitus with diabetic chronic kidney disease; I13.0 Hypertensive heart and chronic kidney disease with heart failure and stage 1 through stage 4 chronic kidney disease, or unspecified chronic kidney disease; N18.9 Chronic kidney disease, unspecified; I50.9 Heart failure, unspecified
CPT/HCPCS: 36415; 71045; 80053; 81001; 83735; 84484; 85025; 85610; 86850; 86900; 86901; 87086; 93005; 99283; 99285

== ENCOUNTER → 2023-04-01 14:06 | Outpatient (BNVA) | payer OTHER, SELFPAY | PROVIDERS: PCP Registered Nurse; Visit Provider Urology | DX: Z46.6 Encounter for fitting and adjustment of urinary device (principal); N13.1 Hydronephrosis with ureteral stricture, not elsewhere classified; N18.9 Chronic kidney disease, unspecified | CPT/HCPCS: 52310 ==

== ENCOUNTER 2023-04-09 08:56 | Inpatient (IN) | payer OTHER, SELFPAY ==
[2023-04-09] VITALS (13 sets, daily range): BP systolic 120–181; BP diastolic 72–108; PULSE 82–120; RESP 16–33; TEMP 35.9–36.9; O2SAT 90–100; BMI 38.3
--- NOTE | 2023-04-09 | ECG_ITS ---
Test Reason : CP Blood Pressure : / mmHG Vent. Rate : 098 BPM Atrial Rate : 000 BPM P-R Int : 000 ms QRS Dur : 084 ms QT Int : 360 ms P-R-T Axes : 000 027 192 degrees QTc Int : 459 ms Atrial fibrillation with premature ventricular or aberrantly conducted complexes ST & T wave abnormality, consider inferior ischemia ST & T wave abnormality, consider anterolateral ischemia Abnormal ECG When compared with ECG of 09-APR-2023 09:21, T wave inversion now evident in Inferior leads T wave inversion now evident in Anterolateral leads Referred By: Jorge Wiley Electronically Signed By:ALEA MAE MD
--- NOTE | ~2023-04-09 | XR_ITS ---
EXAMINATION: XR CHEST CLINICAL INFORMATION: Shortness of breath. COMPARISON: 03/26/2023 chest radiograph. TECHNIQUE: Frontal view of the chest was obtained. FINDINGS: There is mild prominence of the pulmonary vasculature with blunting of the right costophrenic angle and mild superjacent linear markings. Mild linear markings are seen at the left lung base. The upper lung robles are clear. XR/XR chest 1V IMPRESSION: Small right pleural effusion with superjacent atelectasis was not seen previously. Underlying mild congestion cannot be excluded.
--- NOTE | 2023-04-09 09:14 | ECG_ITS ---
Test Reason : SOB Blood Pressure : / mmHG Vent. Rate : 114 BPM Atrial Rate : 000 BPM P-R Int : 000 ms QRS Dur : 076 ms QT Int : 314 ms P-R-T Axes : 000 003 117 degrees QTc Int : 432 ms Atrial fibrillation with rapid ventricular response Low voltage QRS Septal infarct , age undetermined Abnormal ECG When compared with ECG of 26-MAR-2023 14:34, Vent. rate has increased BY 52 BPM T wave inversion no longer evident in Anterior leads Referred By: Elvis Lambert Electronically Signed By:ALEA MAE MD
--- NOTE | 2023-04-09 09:20 | ED_ITS ---
HPI - SOB/Dyspnea General Chief Complaint: General Medical Stated Complaint: SOB,MID 8O'S PER EMS Time Seen by Provider: 04/09/23 09:08 Source: patient Mode of arrival: EMS Limitations: language barrier (Kyrgyz speaking only, base ply hand used) History of Present Illness HPI Narrative: 78-year-old female who presents emergency department for evaluation shortness of breath. The patient was a poor informant and had difficulty answering questions secondary to her dyspnea. The shortness of breath started today. She states that yesterday she did have chest pain but is vague in describing the chest pain. The patient states she has noticed increased swelling in her lower extremities, she does take furosemide 20 mg every other day. Patient was initially seen in the emergency department on 03/26/2023 and diagnosed with acute urinary tract infection treated with cefuroxime 500 mg b.i.d. times 10 days. Patient did have bilateral stents for obstructive uropathy I reviewed Dr. Tellez's note on 04/01/2023 knee did remove the patient's ureteral stent. Related Data Home Medications Medication Instructions Recorded Confirmed albuterol sulfate 2.5 mg/3 mL 1 amp inhalation QID PRN Wheezing 09/06/22 03/16/23 (0.083 %) solution for nebulization alendronate 70 mg tablet 1 tab PO REESE 09/06/22 03/16/23 blood sugar diagnostic ([facility] 09/06/22 03/16/23 Verio test strips) blood-glucose meter ([facility] 09/06/22 03/16/23 Verio Flex Meter) diltiazem HCl 180 mg 1 cap PO DAILY 09/06/22 03/16/23 capsule,extended release 24 hr (Cartia XT) ferrous sulfate 325 mg (65 mg 1 tab PO Q OTHER DAY 09/06/22 03/16/23 iron) tablet (FeroSul) fluticasone 250 mcg-salmeterol 50 1 puff inhalation BID 09/06/22 03/16/23 mcg/dose blistr powdr for inhalation (Advair Diskus) lancets 33 gauge (OneTouch Delica 09/06/22 03/16/23 Plus Lancet) albuterol sulfate 90 mcg/actuation 2 puff inhalation Q4-6H PRN 10/23/22 03/16/23 aerosol inhaler (Ventolin HFA) Wheezing atorvastatin 80 mg tablet 80 mg PO DAILY 10/23/22 03/16/23 carvedilol 3.125 mg tablet 3.125 mg PO BID 10/23/22 03/16/23 metformin 850 mg tablet 850 mg PO BIDWM 10/23/22 03/16/23 aspirin 81 mg tablet,delayed 81 mg PO DAILY 03/02/23 03/16/23 release pyridoxine (vitamin B6) 100 mg 100 mg PO DAILY 03/02/23 03/16/23 tablet Previous Rx's Medication Instructions Recorded famotidine 20 mg tablet 20 mg PO BID #180 tabs 10/27/22 apixaban 5 mg tablet (Eliquis) 5 mg PO BID #60 tabs 12/27/22 docusate sodium 100 mg capsule 100 mg PO BID #180 caps 01/19/23 hydrocortisone 2.5 % topical cream 1 appl DC BID-QID PRN hemorrhoids 01/19/23 with perineal applicator #30 grams (Proctosol HC) methylcellulose (laxative) 500 mg 500 mg PO DAILY #90 tabs 01/19/23 tablet (Fiber Laxative (methylcellulose)) sennosides 8.6 mg tablet (senna) 8.6 mg PO BID PRN constipation 01/19/23 #180 tabs oxycodone 5 mg tablet 5 mg PO Q6H PRN severe pain (scale 03/10/23 score 7-10) #16 tabs mirabegron 50 mg tablet,extended 50 mg PO DAILY #30 tabs 03/16/23 release 24 hr (Myrbetriq) cefuroxime axetil 500 mg tablet 500 mg PO BID #20 tabs 03/26/23 simethicone 125 mg capsule (Gas 125 mg PO TID-QID PRN Indigestion 04/07/23 Relief Extra Strength) #120 caps Allergies Allergy/AdvReac Type Severity Reaction Status Date / Time montelukast [Singulair] Allergy Unknown itching/marysol Verified 04/01/23 14:17 h From Singulair Allergy Intermediate RASH Uncoded 04/01/23 14:17 Review of Systems Review of Systems: Yes Unobtainable due to mental condition PMFSH Past Medical History Medical History Alcohol abuse Anxiety Arthritis Asthma Asymmetrical thyroid Atrial fibrillation CHF (congestive heart failure) COPD (chronic obstructive pulmonary disease) COVID-19 Diabetes Gout Hypertension Knee arthropathy Nephrolithiasis Obstruction, uropathy Osteoarthritis Renal cyst, acquired, left Thrombosed external hemorrhoid Surgical History History of total knee arthroplasty Hx of colonoscopy Social History Social History Household Members: None Household Members Other:: DAUGHTER Housing: Apartment Housing Other:: low income housing Do you presently have visiting nurse or other home services: No Unable to assess alcohol history related to: Unknown Alcohol intake: never Patient Tobacco Use Status: Never used Tobacco e-Cigarette/Vaping Use: Never Used Second Hand Smoke Exposure: No Advance Directives: Yes Advance Directives on File: Yes Advance Directives Date on File: 09/07/22 service: No Current occupational status: disabled Physical Exam Vital Signs: Vital Signs: Last Vital Signs Temp 96.6 F L 04/09/23 12:48 Pulse 99 04/09/23 12:48 Resp 28 H 04/09/23 12:48 BP 139/79 04/09/23 12:48 Pulse Ox 90 L 04/09/23 13:47 O2 Del Method Room Air 04/09/23 13:47 BMI result Body Mass Index 38.3 Const: Other: Awake, alert, female, appears dyspneic and tachypneic, has difficulty answering questions secondary to her dyspnea HEENT: Head: Yes normal to inspection, Yes normocephalic and Yes atraumatic Ears: external ears normal General nose exam: Normal external nose present Face and sinus: Yes normal facial exam Mouth: Normal oral and palatal mucosa present Throat: Yes posterior oropharynx normal Eyes: General: appearance normal, both eyes and all related structures Pupils: Equal, round and reactive pupils present Neck: Neck: Yes normal visual inspection, Yes no lymphadenopathy, Yes trachea midline and Yes supple Chest: Chest palpation & inspection: normal inspection of the chest and normal palpation of entire chest wall Resp: Other: Dyspnea, tachypnea, diminished breath sounds at the base, rales at the bases, Cardio: Rate: regular rate Rhythm: regular rhythm Heart sounds: S1 normal heart sound present, S2 normal heart sound present and no murmurs GI: Inspection: Yes normal to inspection Palpation (GI): Soft to palpation, nontender and no guarding Auscultation: normal bowel sounds : General: Yes no CVA tenderness Back/Spine/Pelvis: Back: no CVA tenderness Skin: General skin exam: no rashes or lesions noted Neuro: Cranial nerves: Yes CN's II-XII intact bilaterally and Yes Equal, round and reactive pupils present Cognition (Neuro): normal cognition Motor exam (neuro): 5/5 motor strength present throughout Extrem: Other: 1+ pitting edema, bilaterally symmetric Psych: Appearance: grossly normal Speech and movement: Normal speech and movement present Affect: normal affect Attitude: cooperative Thought process: Normal thought process present Thought content: Normal thought content present Medications Administered Discontinued Medications Generic Name Dose Route Start Last Admin Trade Name Ankurq PRN Reason Stop Dose Admin Furosemide 60 mg 04/09/23 09:19 04/09/23 09:35 Furosemide 100 Mg/10 Ml Vial IVPUSH 04/09/23 09:20 60 mg ONCE ONE Administration Protocol Furosemide 60 mg 04/09/23 11:09 04/09/23 11:16 Furosemide 100 Mg/10 Ml Vial IVPUSH 04/09/23 11:10 60 mg ONCE ONE Administration Protocol Lorazepam 1 mg 04/09/23 10:28 04/09/23 10:41 Lorazepam 2 Mg/Ml Vial IVPUSH 04/09/23 10:29 1 mg STAT STA Administration Nitroglycerin 1 inch 04/09/23 09:19 04/09/23 09:34 Nitroglycerin 2 % Oint 1 Gm Packet TRANSDERMA 04/09/23 09:20 1 inch ONCE ONE Administration Medical Decision Making Medical Decision Making [facility] Narrative: 78-year-old female past medical history significant for AFib with RVR on Eliquis, anxiety, diabetes, kidney stones, asthma, COPD, hypertension chronic kidney disease , gout, ETOH use disorder, chronic anemia who presents emergency department for evaluation of shortness of breath x1 day. On presentation the patient was tachypneic and dyspneic, also diaphoretic. Lungs revealed diminished breath sounds at the bases with rales, no wheezing or rhonchi. Chest has 1+ pitting edema. I ordered following evaluation: 12 EKG, chest x-ray one view, BNP, CBC, CMP, PT/INR, PTT, troponin, ethanol level. Given her significant dyspnea and elevated respiratory rate I ordered CPAP with settings of PEEP of 10, FiO2 24%. Patient was also ordered to get Lasix 60 mg IV and nitroglycerin paste 1 in to the chest wall. 1337: My interpretation of the patient's laboratory data is as follows: Anemia with an H&H of 10.6 and 35-chronic. Coags normal. Potassium elevated 5.4. Bicarb low 20. Glucose elevated 322. AST, ALT and alk phos elevated above baseline, 185, 123 and 145. BNP elevated 797. High sensitive troponin I detectable but not elevated at 10.7. Ethanol level below detectable limits. The patient put out 300 cc of urine with the 1st dose of Lasix, she was given 2nd dose of Lasix 60 mg IV input another 300 cc. The patient was anxious while on CPAP and was given Ativan 1 mg IV with improvement of her anxiety. Patient was taking a CPAP at 13:00 hours and appears well. I will discuss admission with the covering hospitalist. Differential Diagnosis Differential Diagnoses: The differential diagnosis associated with the presentation includes Differential diagnosis includes was not limited to congestive heart failure, pneumonia, fluid overload, renal failure, liver failure, urine tract infection Lab Data MDM Lab Attestation statement: I reviewed the patient's lab results. 04/09/23 09:17 04/09/23 09:16 Labs: Lab Results 04/09/23 04/09/23 04/09/23 Range/Units 09:16 09:16 09:16 WBC (4.8-10.8) X10*3/uL RBC (4.20-5.50) X10*6/uL Hgb (12.0-16.0) g/dl Hct (37.0-47.0) % MCV (80.0-98.0) fL MCH (27.0-33.0) pg MCHC (31.0-35.0) g/dl RDW (11.0-16.0) % Plt Count (160-400) X10*3/uL MPV (9.4-12.3) fL Immature Gran % (Auto) (0.0-0.4) % Neut % (Auto) (45-73) % Lymph % (Auto) (20-40) % [place] % (Auto) (2-11) % Eos % (Auto) (0-4) % Baso % (Auto) (0-2) % Lymph # (Auto) (1.2-4.9) X10*3/uL [place] # (Auto) (0.1-1.2) X10*3/uL Eos # (Auto) (0.0-0.4) X10*3/uL Baso # (Auto) (0.0-0.2) X10*3/uL Abs Immat Gran (auto) (0.00-0.03) X10*3/uL Absolute Neuts (auto) (2.0-8.3) x10*3/uL Absolute Nucleated RBC (0.0-0.012) X10*3/uL Nucleated RBC % (auto) (0.0-0.2) /100WBC PT 14.5 H (10.0-13.1) SEC INR 1.3 H (0.9-1.1) APTT 29.2 (26.0-36.4) SEC Sodium 139 (135-145) mmol/L Potassium 5.4 H D (3.3-5.1) mmol/L Chloride 108 (96-108) mmol/L Carbon Dioxide 20 L (22-29) mmol/L Anion Gap 16 (12-20) BUN 22 H (9-16) mg/dL Creatinine 1.02 (0.5-1.4) mg/dL Estim Creat Clear Calc 48.0 Estimated GFR 52 Random Glucose 322 H (60-115) mg/dL Calcium 9.7 (8.4-10.2) mg/dL Total Bilirubin 0.8 (0.0-1.0) mg/dL AST 185 H (5-31) U/L ALT 123 H (0-31) U/L Alkaline Phosphatase 145 H (39-117) U/L Troponin I High Sens (<3.5-17.0) ng/L B-Natriuretic Peptide 797 H (<100) pg/mL Total Protein 7.6 (6.5-8.0) g/dL Albumin 4.1 (3.5-5.0) g/dL Ethyl Alcohol < 10 mg/dL 04/09/23 04/09/23 Range/Units 09:17 09:17 WBC 9.7 (4.8-10.8) X10*3/uL RBC 3.89 L (4.20-5.50) X10*6/uL Hgb 10.6 L (12.0-16.0) g/dl Hct 35.0 L (37.0-47.0) % MCV 90.0 (80.0-98.0) fL MCH 27.2 (27.0-33.0) pg MCHC 30.3 L (31.0-35.0) g/dl RDW 15.3 (11.0-16.0) % Plt Count 319 (160-400) X10*3/uL MPV 10.5 (9.4-12.3) fL Immature Gran % (Auto) 0.4 (0.0-0.4) % Neut % (Auto) 74.3 H (45-73) % Lymph % (Auto) 14.3 L (20-40) % [place] % (Auto) 6.0 (2-11) % Eos % (Auto) 4.3 H (0-4) % Baso % (Auto) 0.7 (0-2) % Lymph # (Auto) 1.4 (1.2-4.9) X10*3/uL [place] # (Auto) 0.6 (0.1-1.2) X10*3/uL Eos # (Auto) 0.4 (0.0-0.4) X10*3/uL Baso # (Auto) 0.1 (0.0-0.2) X10*3/uL Abs Immat Gran (auto) 0.04 H (0.00-0.03) X10*3/uL Absolute Neuts (auto) 7.2 (2.0-8.3) x10*3/uL Absolute Nucleated RBC 0.000 (0.0-0.012) X10*3/uL Nucleated RBC % (auto) 0.0 (0.0-0.2) /100WBC PT (10.0-13.1) SEC INR (0.9-1.1) APTT (26.0-36.4) SEC Sodium (135-145) mmol/L Potassium (3.3-5.1) mmol/L Chloride (96-108) mmol/L Carbon Dioxide (22-29) mmol/L Anion Gap (12-20) BUN (9-16) mg/dL Creatinine (0.5-1.4) mg/dL Estim Creat Clear Calc Estimated GFR Random Glucose (60-115) mg/dL Calcium (8.4-10.2) mg/dL Total Bilirubin (0.0-1.0) mg/dL AST (5-31) U/L ALT (0-31) U/L Alkaline Phosphatase (39-117) U/L Troponin I High Sens 10.7 (<3.5-17.0) ng/L B-Natriuretic Peptide (<100) pg/mL Total Protein (6.5-8.0) g/dL Albumin (3.5-5.0) g/dL Ethyl Alcohol mg/dL Independent Interpretation I performed an independent interpretation of an: Plain X-Ray Interpretation: My interpretation of the patient's one-view chest x-ray is as follows: Increased interstitial markings consistent with pulmonary edema My independent interpretation patient's 12 EKG done at 0921 is as follows: Atrial fibrillation with a rapid ventricular rate of 114, no ST segment elevation, no ST segment depression, no significant T-wave abnormalities, Q-wave in V1 and V2 consistent with septal infarct. Compared to EKG dated 03/26/2023 atrial fibrillation is old, rapid rate is new, Q-waves V1 through V2 are old. Radiology Impression Discussion of test interpretation with radiology: I have reviewed the radiologist's reading. Radiologist Impression: XR chest 1V IMPRESSION: Small right pleural effusion with superjacent atelectasis was not seen previously. Underlying mild congestion cannot be excluded. Dictated By:Emerson Carrasco MD External Record Review External record reviewed: Inpatient record Critical Care Time Critical Care Time Critical Care Time: Yes Total Critical Care Time: 55 Attestation: Critical Care: The patient was critically ill with a high probability of imminent or life threatening deterioration. I spent greater than 30 minutes of discontinuous time evaluating the patient,delivering critical care at the bedside, discussing and evaluating pertinent data with consultants. Critical care time does not include time spent performing separately billable procedures or teaching. Total time spent performing critical care was 55 minutes. Discharge Plan Discharge Clinical Impression: Congestive heart failure, Acute dyspnea, Anxiety Patient Disposition: Admitted As Inpatient
[2023-04-09 09:26] LABS: MANUAL DIFF FLAG NO
[2023-04-09 09:29] LABS: Basophils Absolute Auto 0.1 X10*3/uL (0.0-0.2); Basophils Percent Auto 0.7 % (0-2); Eosinophils Absolute Auto 0.4 X10*3/uL (0.0-0.4); Eosinophils Percent Auto 4.3 % (0-4); Hemoglobin 10.6 g/dl (12.0-16.0); Imm Gran Abs Auto 0.04 X10*3/uL (0.00-0.03); Imm Gran Pct Auto 0.4 % (0.0-0.4); Lymphocytes Absolute Auto 1.4 X10*3/uL (1.2-4.9); Lymphocytes Percent Auto 14.3 % (20-40); Mean Corpuscular HGB Conc 30.3 g/dl (31.0-35.0); Mean Corpuscular Hemoglobin 27.2 pg (27.0-33.0); Mean Platelet Volume 10.5 fL (9.4-12.3); Monocytes Absolute Auto 0.6 X10*3/uL (0.1-1.2); Neutrophils Absolute Auto 7.2 x10*3/uL (2.0-8.3); Neutrophils Percent Auto 74.3 % (45-73); Platelet Count 319 X10*3/uL (160-400); Red Blood Count 3.89 X10*6/uL (4.20-5.50); Red Cell Distribution Width 15.3 % (11.0-16.0); White Blood Count 9.7 X10*3/uL (4.8-10.8)
[2023-04-09] MEDS: Nitroglycerin 2 % Oint 1 GM Packet 1 INCH TRANSDERMA (09:34)
[2023-04-09] MEDS: Furosemide 100 MG/10 ML VIAL 60 MG IVPUSH ×2 (09:35→11:16)
[2023-04-09 09:43] LABS: Partial Thromboplastin Time 29.2 SEC (26.0-36.4)
[2023-04-09 09:50] LABS: INTERNATIONAL NORM RATIO 1.3 (0.9-1.1); Prothrombin Time 14.5 SEC (10.0-13.1)
[2023-04-09 09:51] LABS: B Type Natriuretic Peptide 797 pg/mL (<100)
[2023-04-09 09:52] LABS: Alanine Aminotransferase 123 U/L (0-31); Albumin Level 4.1 g/dL (3.5-5.0); Alkaline Phosphatase 145 U/L (39-117); Anion Gap 16 (12-20); Aspartate Amino Transferase 185 U/L (5-31); Bilirubin Total 0.8 mg/dL (0.0-1.0); Blood Urea Nitrogen 22 mg/dL (9-16); Calcium 9.7 mg/dL (8.4-10.2); Carbon Dioxide 20 mmol/L (22-29); Chloride 108 mmol/L (96-108); Estimated Glomerular Filt Rate 52; Glucose Random 322 mg/dL (60-115); Potassium 5.4 mmol/L (3.3-5.1); Sodium 139 mmol/L (135-145); Total Protein 7.6 g/dL (6.5-8.0)
[2023-04-09 09:52] LABS: Troponin-I High Sensitivity 10.7 ng/L (<3.5-17.0)
[2023-04-09] MEDS: LORazepam 2 MG/ML VIAL 1 MG IVPUSH (10:41)
[2023-04-09 11:23] LABS: Ethanol < 10 mg/dL
--- NOTE | 2023-04-09 12:06 | PC.NURSE ---
linen changed and musa care provided.
--- NOTE | 2023-04-09 12:36 | PC.NURSE ---
pt resting comfortably on cpap, warm blanket applied, family at bedside.
--- NOTE | 2023-04-09 13:46 | PC.NURSE ---
Pt states she feels like she needs to be changed. checked by staff, pt is dry at this time. repositioned for comfort. 2L O2 applied for O2 sat ~90%
--- NOTE | 2023-04-09 15:15 | P.HPHOSP_ITS ---
History of Present Illness Date of Service: 04/09/23 Attending physician on admission: Layo Nieves Chief Complaint: SOB Pt is a 78-year-old female with a PMH significant for persistent ?AFib with RVR on Eliquis, anxiety, osp-qzidgld-vllcbmsmx diabetes type 2, asthma/COPD overlap syndrome, HTN, CKD , gout, and chronic anemia who presents to the ED with?worsening SOB. Pt is Mexican-speaking only; bottle washer machine services utilized. Pt states she has had SOB for many days that worsened today, which prompted her visit. States SOB has limited her activity, she is now unable to go to the corner store or walk across the street. Patient states that she has had a history of recent falls lately with last one around 4 days ago when she slipped and fell on her side on the concrete. Patient denies head strike or loss of consciousness. Pt also reports falling out of bed a few weeks prior. Patient also complains of intermittent, sharp stabbing right-sided anterior chest wall pain that began yesterday. Pt knows of no precipitating or aggravating factors, Patient has been using Vicks vapor rub and alcolado topically to relieve the pain. In the ED pt was afebrile, tachycardic at 120, tachypnic up to 33, and hypertensive up to 178/99. Patient was placed on CPAP but could not tolerate it then placed on BiPAP could not tolerated and eventually satting 90% on RA. Labs were significant for chronic stable anemia of 10 6/35.0, potassium of 5.4, glucose of 322, AST of 185, ALT of 123, alk-phos 145, BNP 797. Ethyl alcohol levels undetectable. CXR showed small right pleural effusion with supra adjacent atelectasis, underlying mild congestion cannot be excluded. EKG demonstrated AFib with RVR 114 with no evidence of ST elevations or depressions. Pt was treated with nitroglycerin transdermal patch, furosemide 60 mg IV push x2 doses, and lorazepam. Pt will be admitted to the hospital for treatment further evaluation of acute HFpEF exacerbation. FOR[facility]LY [facility] Medical History Alcohol abuse Anxiety Arthritis Asthma Asymmetrical thyroid Atrial fibrillation CHF (congestive heart failure) COPD (chronic obstructive pulmonary disease) COVID-19 Diabetes Gout Hypertension Knee arthropathy Nephrolithiasis Obstruction, uropathy Osteoarthritis Renal cyst, acquired, left Thrombosed external hemorrhoid Surgical History History of total knee arthroplasty Hx of colonoscopy Social History Household Members: None Household Members Other:: DAUGHTER Housing: Apartment Housing Other:: low income housing Do you presently have visiting nurse or other home services: No Unable to assess alcohol history related to: Unknown Alcohol intake: never Patient Tobacco Use Status: Never used Tobacco e-Cigarette/Vaping Use: Never Used Second Hand Smoke Exposure: No Advance Directives: Yes Advance Directives on File: Yes Advance Directives Date on File: 09/07/22 service: No Current occupational status: disabled Meds Allergies Allergy/AdvReac Type Severity Reaction Status Date / Time montelukast [Singulair] Allergy Unknown itching/marysol Verified 04/01/23 14:17 h From Singulair Allergy Intermediate RASH Uncoded 04/01/23 14:17 Active Medications: Current Medications Pharmacy Consult (Consult Rx Perform Med Rec) 1 each MISCELLANE ONCE PRN PRN Reason: Consult order Home Medications Medication Instructions Recorded Confirmed Last Taken Type albuterol sulfate 2.5 mg/3 mL 1 amp inhalation QID PRN Wheezing 09/06/22 03/16/23 12/19/22 History (0.083 %) solution for nebulization alendronate 70 mg tablet 1 tab PO REESE 09/06/22 03/16/23 12/14/22 History blood sugar diagnostic (OneTouch 09/06/22 03/16/23 Unknown History Verio test strips) blood-glucose meter (OneTouch 09/06/22 03/16/23 Unknown History Verio Flex Meter) diltiazem HCl 180 mg 1 cap PO DAILY 09/06/22 03/16/23 12/19/22 History capsule,extended release 24 hr (Cartia XT) ferrous sulfate 325 mg (65 mg 1 tab PO Q OTHER DAY 09/06/22 03/16/23 12/24/22 History iron) tablet (FeroSul) fluticasone 250 mcg-salmeterol 50 1 puff inhalation BID 09/06/22 03/16/23 12/19/22 History mcg/dose blistr powdr for inhalation (Advair Diskus) lancets 33 gauge (OneTouch Delica 09/06/22 03/16/23 Unknown History Plus Lancet) albuterol sulfate 90 mcg/actuation 2 puff inhalation Q4-6H PRN 10/23/22 03/16/23 Unknown History aerosol inhaler (Ventolin HFA) Wheezing atorvastatin 80 mg tablet 80 mg PO DAILY 10/23/22 03/16/23 12/19/22 History carvedilol 3.125 mg tablet 3.125 mg PO BID 10/23/22 03/16/23 12/19/22 History metformin 850 mg tablet 850 mg PO BIDWM 10/23/22 03/16/23 12/18/22 History aspirin 81 mg tablet,delayed 81 mg PO DAILY 03/02/23 03/16/23 Unknown History release pyridoxine (vitamin B6) 100 mg 100 mg PO DAILY 03/02/23 03/16/23 Unknown History tablet Physical Exam Vital Signs and Narrative: Vital Signs: Last Vital Signs Temp 96.6 F L 04/09/23 12:48 Pulse 99 04/09/23 12:48 Resp 28 H 04/09/23 12:48 BP 139/79 04/09/23 12:48 Pulse Ox 90 L 04/09/23 13:47 O2 Del Method Room Air 04/09/23 13:47 BMI result Body Mass Index 38.3 Constitutional: Alert, in no acute distress. Mental Status: Oriented to person, place and time. Eyes: Pupils are equal, round, and reactive to light. Ear, Nose, and Throat: Oropharynx clear, mucous membranes moist. Ears and nose without deformities. Trachea midline. Respiratory: Diminished breath sounds at bases bilaterally. No wheezing, rales, or rhonchi. Cardiovascular: Irregularly irregular rhythm. No murmurs, rubs, or gallops. Gastrointestinal: Abdomen soft, non-tender, non-distended. Normal bowel sounds. Neurologic: Cranial nerves II-XII are grossly intact bilaterally. No focal neurological deficits. Moves all extremities spontaneously. Skin: No rashes or lesions noted. Musculoskeletal: No cyanosis or clubbing. Extremities: Bilateral 1+ pitting edema, right worse than left. Psychiatric: Normal mood and affect. Results Labs 04/09/23 09:17 04/09/23 09:16 Labs: Laboratory Results - last 24 hr 04/09/23 04/09/23 04/09/23 09:16 09:16 09:16 MCV MCH MCHC RDW Plt Count MPV Immature Gran % (Auto) Neut % (Auto) Lymph % (Auto) [place] % (Auto) Eos % (Auto) Baso % (Auto) Lymph # (Auto) [place] # (Auto) Eos # (Auto) Baso # (Auto) Abs Immat Gran (auto) Absolute Neuts (auto) Absolute Nucleated RBC Nucleated RBC % (auto) PT 14.5 H INR 1.3 H APTT 29.2 Anion Gap 16 Estim Creat Clear Calc 48.0 Estimated GFR 52 Random Glucose 322 H Calcium 9.7 Total Bilirubin 0.8 AST 185 H ALT 123 H Alkaline Phosphatase 145 H Troponin I High Sens B-Natriuretic Peptide 797 H Total Protein 7.6 Albumin 4.1 Ethyl Alcohol < 10 04/09/23 04/09/23 09:17 09:17 MCV 90.0 MCH 27.2 MCHC 30.3 L RDW 15.3 Plt Count 319 MPV 10.5 Immature Gran % (Auto) 0.4 Neut % (Auto) 74.3 H Lymph % (Auto) 14.3 L [place] % (Auto) 6.0 Eos % (Auto) 4.3 H Baso % (Auto) 0.7 Lymph # (Auto) 1.4 [place] # (Auto) 0.6 Eos # (Auto) 0.4 Baso # (Auto) 0.1 Abs Immat Gran (auto) 0.04 H Absolute Neuts (auto) 7.2 Absolute Nucleated RBC 0.000 Nucleated RBC % (auto) 0.0 PT INR APTT Anion Gap Estim Creat Clear Calc Estimated GFR Random Glucose Calcium Total Bilirubin AST ALT Alkaline Phosphatase Troponin I High Sens 10.7 B-Natriuretic Peptide Total Protein Albumin Ethyl Alcohol Imaging Radiologist's Impressions: Impressions Chest X-Ray 04/09/23 10:05 IMPRESSION: Small right pleural effusion with superjacent atelectasis was not seen previously. Underlying mild congestion cannot be excluded. Assessment and Plan (1) Congestive heart failure: Status: Acute Plan t is a 78-year-old female with a PMH significant for persistent ?AFib with RVR on Eliquis, anxiety, sfr-djemdhl-dxfmznhdh diabetes type 2, asthma/COPD overlap syndrome, HTN, CKD , gout, and chronic anemia who presents to the ED with?worsening SOB. Pt is Mexican-speaking only; bottle washer machine services utilized. Pt states she has had SOB for many days that worsened today, which prompted her visit. States SOB has limited her activity, she is now unable to go to the corner store or walk across the street. Pt will be admitted to the hospital for treatment further evaluation of acute HFpEF exacerbation. Acute HFpEF exacerbation Increasing SOB, bilateral pitting edema, elevated BNP, pleural effusions bilaterally Echocardiogram 12/22/2019 showed EF of 50-60% Furosemide 40 mg IV b.i.d. Follow lytes, MG, I/O Daily weights, low-salt diet Echocardiogram Monitor on telemetry Hyperkalemia Patient's potassium 5.4 at time presentation Patient given 1 dose of Lokelma 10 mg p.o. Check BMP Anterior chest wall pain Patient complains of intermittent sharp upper right chest pain since yesterday Patient has been using Vicks and alcolado [place] rum on it EKG negative for ST elevations or depressions Initial troponin 10.7, will check repeat troponin Mostly likely musculoskeletal, tenderness reproducible with palpation Recent history of falls Patient states that she fell 4 days ago and earlier 1 month prior Patient uses cane at home to walk, but expresses interest in trying to use a walker PT/OT evaluation Dyr-bezzqpx-gcytbfpjm diabetes Patient's glucose elevated at 322 time presentation Hold metformin Place on sliding scale insulin Transaminitis AST 185, ALT 123, alk-phos 145 Patient asymptomatic: Denies abdominal pain Most likely secondary to acute CHF exacerbation Trend labs, if remain elevated will consider additional workup Anxiety Continue Ativan p.r.n. Permanent AFib Continue carvedilol, diltiazem, Eliquis Asthma Continue home inhalers Obesity class 2 Weight loss encouraged Full Code Attending:?Dr. Nieves DVT Prophylaxis:? On Eliquis Time Spent With Patient Time: Total time managing care of this patient today ____ minutes. Quality Stroke Does the patient have a stroke diagnosis?: No VTE Prior VTE?: No VTE Risk Level:: Medical - moderate - high VTE Device Contraindication: Treatment Not Indicated VTE Drug Contraindication: N/A - Med Ordered
[2023-04-09] MEDS: Sodium Zirconium Cyclosilicate 10 GM POWD.PACK PO (18:00)
[2023-04-09 18:17] LABS: Troponin-I High Sensitivity 108.5 ng/L (<3.5-17.0)
--- NOTE | 2023-04-09 18:28 | PM.EVENT ---
Event Note Date of Service: 04/09/23 Event Note: hsTn-I 10.7->108.5 pt with c/o sharp intermittent chest pain though difficult historian will give ASA/atorvastatin, heparinize, obtain TTE and consult Cardiology Time Spent With Patient Time: Total time managing care of this patient today ____ minutes.
--- NOTE | 2023-04-09 18:34 | MHC.EDTECH ---
Brought patient pillow.
[2023-04-09] MEDS: Aspirin 325 MG TABLET PO (18:45)
[2023-04-09] MEDS: Heparin Sodium,Porcine 5,000 UNIT/ML VIAL 4000 UNIT IVPUSH (18:45)
[2023-04-09] MEDS: Heparin Sodium,Porcine/1/2NS 25,000 UNIT/250 ML IV.SOLN 10 UNIT IVCONT (18:52)
--- NOTE | 2023-04-09 19:00 | PC.NURSE ---
Report received from Michelle TABARES about pts present condition, the reason for the admission, what the care plan is in the ED and what the resulting labs, treatments and procedures were.
[2023-04-09 19:25] LABS: Hematocrit 32.7 % (37.0-47.0); Hemoglobin 10.3 g/dl (12.0-16.0); Mean Corpuscular HGB Conc 31.5 g/dl (31.0-35.0); Mean Corpuscular Hemoglobin 27.5 pg (27.0-33.0); Mean Corpuscular Volume 87.2 fL (80.0-98.0); Mean Platelet Volume 10.1 fL (9.4-12.3); Platelet Count 262 X10*3/uL (160-400); Red Blood Count 3.75 X10*6/uL (4.20-5.50); Red Cell Distribution Width 15.3 % (11.0-16.0); White Blood Count 6.4 X10*3/uL (4.8-10.8)
[2023-04-09 19:31] LABS: INTERNATIONAL NORM RATIO 1.3 (0.9-1.1)
[2023-04-09] MEDS: Atorvastatin Calcium 80 MG TABLET PO (21:00)
--- NOTE | 2023-04-09 21:29 | MHC.EDTECH ---
Changed patients linen, bed pad, gown, and purewick everything soaked as purewick was not in place. Patient now comfortable in bed. Also washed patient with wipes.
--- NOTE | 2023-04-09 23:04 | PC.NURSE ---
Pt stated is having some CP in the right side of chest wall but denies any other symptoms at the moment. MD Wiley informed about pts CP. STAT EKG and lab work has been preformed. Pt rates pain a 4 out of 10. Non-radiating and intermittent in nature. Pt describes the pain and a slight pressure.
[2023-04-10] VITALS (12 sets, daily range): BP systolic 129–159; BP diastolic 62–89; PULSE 78–114; RESP 16–26; TEMP 36.6–37; O2SAT 96–100
[2023-04-10] MEDS: Morphine Sulfate 4 MG/ML CARTRIDGE IVPUSH (00:04)
[2023-04-10 00:29] LABS: Troponin-I High Sensitivity 124.9 ng/L (<3.5-17.0)
[2023-04-10] MEDS: Nitroglycerin 0.4 MG TAB.SUBL SUBLINGUAL ×2 (00:32→00:37)
[2023-04-10 00:37] LABS: Chloride 102 mmol/L (96-108); Potassium 3.4 mmol/L (3.3-5.1); Sodium 141 mmol/L (135-145)
--- NOTE | 2023-04-10 00:39 | PC.NURSE ---
Informed MD Wiley that pts troponin level is 124.9 (see MARS.)
--- NOTE | 2023-04-10 00:39 | PM.EVENT ---
Event Note Date of Service: 04/10/23 Event Note: pt with intermittent complaints of cp now with EKG changes showing T wave inversions in lateral leads spoke to cardiology pt already on heparin will give morphine and SL nitro if continues to have cp, consider transfer for cath Time Spent With Patient Time: Total time managing care of this patient today ____ minutes.
--- NOTE | 2023-04-10 00:42 | PC.NURSE ---
Pts pain level after 2 nitro of 0.4 mg is a 0 out of 10. MD made aware that the 3rd Nitro was held. pt states she feels much better than earlier and is resting comfortably.
[2023-04-10 00:47] LABS: Anion Gap 17 (12-20); Blood Urea Nitrogen 19 mg/dL (9-16); Calcium 9.5 mg/dL (8.4-10.2); Carbon Dioxide 25 mmol/L (22-29); Estimated Glomerular Filt Rate > 60; Glucose Random 138 mg/dL (60-115)
[2023-04-10 00:59] LABS: PTT Heparin Drip 105.7 SEC (53-77.9)
--- NOTE | 2023-04-10 02:40 | PC.NURSE ---
heparin drip was held appropriately when the 2 nurses verified the dose and followed correct protocol. However in the MARS section there was an error in the held section and there was no way of changing the error on the MARS part of the charting because there was no edit section to do so. therefore the 2 nurses added an another column to show that the Heparin Drip was held at the appropriate time and and the appropriate amount and therefore the pt was not affected by an medication error. the only error was a misunderstanding with the charting itself but not with the medication itself.
[2023-04-10 06:55] LABS: Glucose, Whole Blood 145 mg/dL (60-115)
[2023-04-10 06:58] LABS: MANUAL DIFF FLAG NO
--- NOTE | 2023-04-10 07:01 | PC.NURSE ---
Spoke with pharmacy about the heparin drip calculation in the MARS in regards to incorrect charting and not having the ability to change the error in the MARS section. The dose on the pump was verified by the witness nurse and the pump rate was correct however the charting was incorrect. Pharmacy agrees with that the charting was incorrect and the witness nurse also agrees that the charting was wrong. However due to decimal in the IV pump, the medication rate/kg/hr was correct.
[2023-04-10 07:04] LABS: Basophils Absolute Auto 0.1 X10*3/uL (0.0-0.2); Basophils Percent Auto 1.2 % (0-2); Eosinophils Absolute Auto 0.3 X10*3/uL (0.0-0.4); Eosinophils Percent Auto 4.8 % (0-4); Hematocrit 30.9 % (37.0-47.0); Hemoglobin 9.5 g/dl (12.0-16.0); Imm Gran Abs Auto 0.01 X10*3/uL (0.00-0.03); Imm Gran Pct Auto 0.2 % (0.0-0.4); Lymphocytes Absolute Auto 1.2 X10*3/uL (1.2-4.9); Lymphocytes Percent Auto 21.1 % (20-40); Mean Corpuscular HGB Conc 30.7 g/dl (31.0-35.0); Mean Corpuscular Hemoglobin 27.1 pg (27.0-33.0); Mean Corpuscular Volume 88.3 fL (80.0-98.0); Mean Platelet Volume 10.5 fL (9.4-12.3); Monocytes Absolute Auto 0.6 X10*3/uL (0.1-1.2); Monocytes Percent Auto 10.3 % (2-11); Neutrophils Absolute Auto 3.7 x10*3/uL (2.0-8.3); Neutrophils Percent Auto 62.4 % (45-73); Platelet Count 241 X10*3/uL (160-400); Red Cell Distribution Width 15.2 % (11.0-16.0); White Blood Count 5.8 X10*3/uL (4.8-10.8)
[2023-04-10 07:10] LABS: INTERNATIONAL NORM RATIO 1.2 (0.9-1.1); Prothrombin Time 13.6 SEC (10.0-13.1)
[2023-04-10 07:12] LABS: PTT Heparin Drip 70.1 SEC (53-77.9)
[2023-04-10 07:39] LABS: Alanine Aminotransferase 91 U/L (0-31); Albumin Level 3.7 g/dL (3.5-5.0); Alkaline Phosphatase 114 U/L (39-117); Anion Gap 14 (12-20); Aspartate Amino Transferase 81 U/L (5-31); Bilirubin Total 0.9 mg/dL (0.0-1.0); Blood Urea Nitrogen 19 mg/dL (9-16); Calcium 9.1 mg/dL (8.4-10.2); Carbon Dioxide 27 mmol/L (22-29); Chloride 104 mmol/L (96-108); Estimated Glomerular Filt Rate > 60; Glucose Random 142 mg/dL (60-115); Magnesium 1.9 mg/dL (1.6-2.6); Potassium 3.7 mmol/L (3.3-5.1); Sodium 141 mmol/L (135-145); Total Protein 6.6 g/dL (6.5-8.0)
--- NOTE | 2023-04-10 07:47 | PC.NURSE ---
PT IS A/O X 2, NO C/O SOB/TIKA NOTED SPEAKS IN FULL SENTENCES ([place] WITH FISH HOUSEKEEPER. LUNGS - CTA. HEART SOUNDS - IRREGULAR. ABD SOFT AND NON-TENDER, BS + X 4 QUADS. NO EDEMA NOTED. PT IS EATING BREAKFAST. PT IS ADMITTED TO HOSP. PT AWARE OF PLAN OF CARE.
[2023-04-10 07:54] LABS: Troponin-I High Sensitivity 94.6 ng/L (<3.5-17.0)
[2023-04-10] MEDS: 0.9 % Sodium Chloride Flush 3 ML SYRINGE IVFLUSH ×2 (08:29)
[2023-04-10] MEDS: Furosemide 40 MG/4 ML VIAL IVPUSH (08:29)
[2023-04-10] MEDS: Aspirin 81 MG TAB.CHEW PO (08:29)
[2023-04-10] MEDS: Omeprazole 20 MG CAPSULE.DR PO (08:29)
--- NOTE | 2023-04-10 08:30 | PC.NURSE ---
pt's son-in-law at bedside. pt ate 100% of breakfast.
--- NOTE | 2023-04-10 09:47 | PC.NURSE ---
records management specialist at bedside (dr. blair) with rn mds coordinator. pt aware of plan of care.
--- NOTE | 2023-04-10 09:57 | P.CONCA_ITS ---
History of Present Illness History of Present Illness Date of Service: 04/10/23 Requesting physician: Jorge Wiley Consult reason: congestive heart failure and other (Acute coronary syndrome) Chief complaint: acute chf exacerbation Narrative: I was consulted to see Roseanna in cardiology consultation today because of her presentation to the hospital with sudden-onset shortness of breath consistent with congestive heart failure. She had concomitant chest pressure. She came to the hospital. Initial EKG was showing atrial fibrillation which she has been having since December with persistent atrial fibrillation. She was then diurese d and subsequently her shortness of breath improved but last night around midnight she developed chest pressure. EKG was repeated and she was noted to have diffuse significant EKG changes. Troponins are stable and flat. Cardiology consult was sought because of EKG changes and her symptoms. Prema wing her chart from December she was admitted with renal stones and hematuria and was noted to be in atrial fibrillation at that time. With acute anxiety she developed significant blood pressure and had developed heart failure. At that time she was managed with antianxiety medication blood pressure improved and her symptoms improved. She was subsequently had another admission in February and had similar congestive heart failure. She has persistent atrial fibrillation. Echocardiogram in December showed normal LV systolic function with moderate left atrial enlargement. She has not had any ischemic evaluation. She has over the last few weeks she has been getting progressively increasing exertional shortness of breath. Her Lasix was discontinued for some reason as outpatient not sure. She had some leg edema but her main complaint is sudden shortness of breath and chest pressure. She denies any palpitations, lightheadedness, syncope. She is not on any oral anticoagulation for unclear reason, most likely because of hematuria in December. She has not had any follow-up. She has no history of prior myocardial infarction or known coronary artery disease. She has no history of stroke. History was obtained with help of litigation specialist. She says at home she is functional and active and does her routine activity and including going shopping. However she cannot walk long distances because of shortness of breath. Review of Systems 2 Constitutional: Constitutional: Reports no additional constitutional complaints Eyes: Eyes: Reports no additional eye complaints Cardiovascular: Cardiovascular: Reports chest pain at rest, Reports leg edema, Denies lightheadedness, Denies Loss of Consciousness, Denies palpitations, Reports dyspnea and Reports dyspnea on exertion Respiratory: Respiratory: Reports no additional respiratory complaints, Reports dyspnea and Reports dyspnea on exertion Musculoskeletal: Musculoskeletal: Reports no additional musculoskeletal complaints Neurologic: Reports system reviewed and no additional complaints, except as documented Psychiatric: Psychiatric: Reports no additional psychiatric complaints Endocrine: Endocrine: Denies palpitations PMFSH Past Medical History Medical History Alcohol abuse Anxiety Arthritis Asthma Asymmetrical thyroid Atrial fibrillation CHF (congestive heart failure) COPD (chronic obstructive pulmonary disease) COVID-19 Diabetes Gout Hypertension Knee arthropathy Nephrolithiasis Obstruction, uropathy Osteoarthritis Renal cyst, acquired, left Thrombosed external hemorrhoid Surgical History Surgical History History of total knee arthroplasty Hx of colonoscopy Social History Social History Household Members: None Household Members Other:: DAUGHTER Housing: Apartment Housing Other:: low income housing Do you presently have visiting nurse or other home services: No Unable to assess alcohol history related to: Unknown Alcohol intake: never Patient Tobacco Use Status: Never used Tobacco e-Cigarette/Vaping Use: Never Used Second Hand Smoke Exposure: No Advance Directives: Yes Advance Directives on File: Yes Advance Directives Date on File: 09/07/22 service: No Current occupational status: disabled Meds Allergies Allergy/AdvReac Type Severity Reaction Status Date / Time montelukast [Singulair] Allergy Unknown itching/marysol Verified 04/01/23 14:17 h From Singulair Allergy Intermediate RASH Uncoded 04/01/23 14:17 Active Medications: Current Medications Acetaminophen (Acetaminophen 325 Mg Tablet) 650 mg PO Q6H PRN PRN Reason: Pain, Mild (Pain Scale 1-3) Aspirin (Aspirin 81 Mg Tab.Chew) 81 mg PO DAILY [facility] Last Admin: 04/10/23 08:29 Dose: 81 mg Atorvastatin Calcium (Atorvastatin Calcium 80 Mg Tablet) 80 mg PO BEDTIME [facility] Last Admin: 04/09/23 21:00 Dose: 80 mg Docusate Sodium (Docusate Sodium 100 Mg Capsule) 100 mg PO DAILY PRN PRN Reason: Constipation Furosemide (Furosemide 40 Mg/4 Ml Vial) 40 mg IVPUSH BID@0900,1800 GONZALEZ; Protocol Last Admin: 04/10/23 08:29 Dose: 40 mg Heparin Sodium (Porcine) (Heparin Sodium,Porcine 5,000 Unit/Ml Vial) 3,800 unit 40 unit/kg (3800 unit) IVPUSH PROTOCOL BOLUS PRN; Protocol PRN Reason: 40 unit/kg - Heparin Protocol Heparin Sodium (Porcine) (Heparin Sodium,Porcine 5,000 Unit/Ml Vial) 7,600 unit 80 unit/kg (7600 unit) IVPUSH PROTOCOL BOLUS PRN; Protocol PRN Reason: 80 unit/kg - Heparin Protocol Heparin Sodium/Sodium Chloride (Heparin Sodium,Porcine/1/2ns) 25,000 unit in 25 0 mls @ 0 mls/hr IVCONT .Q0M [facility]; Protocol Last Titration: 04/10/23 02:38 Dose: 7.53 units/kg/hr, 7.15 mls/hr Nitroglycerin (Nitroglycerin 0.4 Mg Tab.Subl) 0.4 mg SUBLINGUAL Q5MX3 PRN PRN Reason: Chest Pain Last Admin: 04/10/23 00:37 Dose: 0.4 mg Omeprazole (Omeprazole 20 Mg Capsule.Dr) 20 mg PO BID@0630,1630 [facility] Last Admin: 04/10/23 08:29 Dose: 20 mg Ondansetron HCl (Ondansetron Hcl 4 Mg/2 Ml Vial) 4 mg IVPUSH Q8H PRN PRN Reason: Nausea and Vomiting Pharmacy Consult (Consult Rx Perform Med Rec) 1 each MISCELLANE ONCE PRN PRN Reason: Consult order Sodium Chloride (0.9 % Sodium Chloride Flush 3 Ml Syringe) 3 ml IVFLUSH QSHIFT [facility] Last Admin: 04/10/23 08:29 Dose: 3 ml Home Medications Medication Instructions Recorded Confirmed Last Taken Type albuterol sulfate 2.5 mg/3 mL 1 amp inhalation QID PRN Wheezing 09/06/22 04/09/23 12/19/22 History (0.083 %) solution for nebulization [facility] 03/16/23 Unknown History Verio test strips) blood-glucose meter (OneTouch 09/06/22 03/16/23 Unknown History Verio Flex Meter) diltiazem HCl 180 mg 1 cap PO DAILY 09/06/22 04/09/23 12/19/22 History capsule,extended release 24 hr (Cartia XT) fluticasone 250 mcg-salmeterol 50 1 puff inhalation BID 09/06/22 04/09/23 12/19/22 History mcg/dose blistr powdr for inhalation (Advair Diskus) lancets 33 gauge (OneTouch Delica 09/06/22 03/16/23 Unknown History Plus Lancet) albuterol sulfate 90 mcg/actuation 2 puff inhalation Q4-6H PRN 10/23/22 04/09/23 Unknown History aerosol inhaler (Ventolin HFA) Wheezing atorvastatin 80 mg tablet 80 mg PO DAILY 10/23/22 04/09/23 12/19/22 History carvedilol 3.125 mg tablet 3.125 mg PO BID 10/23/22 04/09/23 12/19/22 History metformin 850 mg tablet 850 mg PO BIDWM 10/23/22 04/09/23 12/18/22 History aspirin 81 mg tablet,delayed 81 mg PO DAILY 03/02/23 04/09/23 Unknown History release pyridoxine (vitamin B6) 100 mg 100 mg PO DAILY 03/02/23 04/09/23 Unknown History tablet ferrous gluconate 324 mg (37.5 mg 324 mg PO Q OTHER DAY 04/09/23 04/09/23 Unknown History iron) tablet furosemide 20 mg tablet 20 mg PO Q OTHER DAY 04/09/23 04/09/23 Unknown History losartan 25 mg tablet 25 mg PO DAILY 04/09/23 04/09/23 Unknown History tramadol 50 mg tablet 50 mg PO Q8H PRN Pain 04/09/23 04/09/23 Unknown History Physical Exam Vital Signs: Vital Signs: Last Vital Signs Temp 97.8 F 04/10/23 09:32 Pulse 94 04/10/23 09:32 Resp 25 H 04/10/23 09:32 BP 129/77 04/10/23 09:32 Pulse Ox 100 04/10/23 09:32 O2 Del Method Nasal Cannula 04/10/23 09:32 O2 Flow Rate 2 04/10/23 09:32 BMI result Body Mass Index 38.3 Const: General: cooperative, comfortable, no acute distress, alert, awake and anxious Nutritional Appearance: obese Orientation/consciousness: patient oriented x3 HEENT: Head: Yes normocephalic and Yes atraumatic Neck: Neck: Yes trachea midline, Yes supple and Yes no JVD Resp: Effort & Inspection: normal respiratory effort Auscultation: no rales, no wheezes and diminished lung sounds Cardio: Jugular venous distension: no JVD Rhythm: abnormal rhythm irregularly irregular Heart sounds: S1 normal heart sound present, S2 normal heart sound present, no click, no gallops, no murmurs and no rubs GI: Auscultation: normal bowel sounds Skin: General skin exam: no rashes or lesions noted Neuro: General: patient oriented x3 and no focal motor deficits Extrem: General: No clubbing, No cyanosis and Yes edema Objective Labs and Meds 04/10/23 06:54 04/10/23 06:54 Lab results: Laboratory Results - last 24 hr 04/09/23 04/09/23 04/09/23 09:16 09:16 17:24 WBC RBC Hgb Hct MCV MCH MCHC RDW Plt Count MPV Immature Gran % (Auto) Neut % (Auto) Lymph % (Auto) [place] % (Auto) Eos % (Auto) Baso % (Auto) Lymph # (Auto) [place] # (Auto) Eos # (Auto) Baso # (Auto) Abs Immat Gran (auto) Absolute Neuts (auto) Absolute Nucleated RBC Nucleated RBC % (auto) PT 14.5 H INR 1.3 H aPTT Heparin Protocol Sodium Potassium Chloride Carbon Dioxide Anion Gap BUN Creatinine Estim Creat Clear Calc Estimated GFR POC Glucose Random Glucose Calcium Magnesium Total Bilirubin AST ALT Alkaline Phosphatase Troponin I High Sens 108.5 H* D Total Protein Albumin Ethyl Alcohol < 10 04/09/23 04/09/23 04/09/23 19:21 19:21 23:47 WBC 6.4 RBC 3.75 L Hgb 10.3 L Hct 32.7 L MCV 87.2 MCH 27.5 MCHC 31.5 RDW 15.3 Plt Count 262 MPV 10.1 Immature Gran % (Auto) Neut % (Auto) Lymph % (Auto) [place] % (Auto) Eos % (Auto) Baso % (Auto) Lymph # (Auto) [place] # (Auto) Eos # (Auto) Baso # (Auto) Abs Immat Gran (auto) Absolute Neuts (auto) Absolute Nucleated RBC 0.000 Nucleated RBC % (auto) 0.0 PT 15.0 H INR 1.3 H aPTT Heparin Protocol Sodium Potassium Chloride Carbon Dioxide Anion Gap BUN Creatinine Estim Creat Clear Calc Estimated GFR POC Glucose Random Glucose Calcium Magnesium Total Bilirubin AST ALT Alkaline Phosphatase Troponin I High Sens 124.9 H* Total Protein Albumin Ethyl Alcohol 04/09/23 04/10/23 04/10/23 23:47 00:42 06:44 WBC RBC Hgb Hct MCV MCH MCHC RDW Plt Count MPV Immature Gran % (Auto) Neut % (Auto) Lymph % (Auto) [place] % (Auto) Eos % (Auto) Baso % (Auto) Lymph # (Auto) [place] # (Auto) Eos # (Auto) Baso # (Auto) Abs Immat Gran (auto) Absolute Neuts (auto) Absolute Nucleated RBC Nucleated RBC % (auto) PT INR aPTT Heparin Protocol 105.7 H Sodium 141 Potassium 3.4 D Chloride 102 Carbon Dioxide 25 Anion Gap 17 BUN 19 H Creatinine 0.86 Estim Creat Clear Calc 57.0 Estimated GFR > 60 POC Glucose 145 H Random Glucose 138 H Calcium 9.5 Magnesium Total Bilirubin AST ALT Alkaline Phosphatase Troponin I High Sens Total Protein Albumin Ethyl Alcohol 04/10/23 04/10/23 04/10/23 06:53 06:53 06:53 WBC Cancelled RBC Cancelled Hgb Cancelled Hct Cancelled MCV Cancelled MCH Cancelled MCHC Cancelled RDW Cancelled Plt Count Cancelled MPV Cancelled Immature Gran % (Auto) Neut % (Auto) Lymph % (Auto) [place] % (Auto) Eos % (Auto) Baso % (Auto) Lymph # (Auto) [place] # (Auto) Eos # (Auto) Baso # (Auto) Abs Immat Gran (auto) Absolute Neuts (auto) Absolute Nucleated RBC Cancelled Nucleated RBC % (auto) Cancelled PT 13.6 H INR 1.2 H aPTT Heparin Protocol Sodium Potassium Chloride Carbon Dioxide Anion Gap BUN Creatinine Estim Creat Clear Calc Estimated GFR POC Glucose Random Glucose Calcium Magnesium Total Bilirubin AST ALT Alkaline Phosphatase Troponin I High Sens 94.6 H* Total Protein Albumin Ethyl Alcohol 04/10/23 04/10/23 04/10/23 06:53 06:54 06:54 WBC 5.8 RBC 3.50 L Hgb 9.5 L Hct 30.9 L MCV 88.3 MCH 27.1 MCHC 30.7 L RDW 15.2 Plt Count 241 MPV 10.5 Immature Gran % (Auto) 0.2 Neut % (Auto) 62.4 Lymph % (Auto) 21.1 [place] % (Auto) 10.3 Eos % (Auto) 4.8 H Baso % (Auto) 1.2 Lymph # (Auto) 1.2 [place] # (Auto) 0.6 Eos # (Auto) 0.3 Baso # (Auto) 0.1 Abs Immat Gran (auto) 0.01 Absolute Neuts (auto) 3.7 Absolute Nucleated RBC 0.000 Nucleated RBC % (auto) 0.0 PT INR aPTT Heparin Protocol 70.1 D Sodium 141 Potassium 3.7 Chloride 104 Carbon Dioxide 27 Anion Gap 14 BUN 19 H Creatinine 0.83 Estim Creat Clear Calc 59.0 Estimated GFR > 60 POC Glucose Random Glucose 142 H Calcium 9.1 Magnesium 1.9 Total Bilirubin 0.9 AST 81 H ALT 91 H Alkaline Phosphatase 114 Troponin I High Sens Total Protein 6.6 Albumin 3.7 Ethyl Alcohol EKG 2. Shows atrial fibrillation with deep T-wave inversions in high lateral and anterolateral leads Imaging Radiologist's impression: Impressions Chest X-Ray 04/09/23 10:05 IMPRESSION: Small right pleural effusion with superjacent atelectasis was not seen previously. Underlying mild congestion cannot be excluded. Assessment and Plan (1) Acute congestive heart failure: Status: Acute Patient presents with recurrent acute congestive failure progressive symptoms exertional shortness of breath and chest discomfort. EKG findings are highly suggestive of myocardial ischemia. Troponins are mildly elevated but flat. Reviewing her past few admissions it appears that she has had acute congestive heart failure setting of elevated blood pressure as well as anxiety and there is high likelihood of high underlying significant coronary artery disease most likely causing ischemic congestive heart failure. Clinically does appear to be in overt heart failure at this point time. I think given her multiple presentations an EKG changes as well as mildly elevated troponin and high likelihood of underlying 3 vessel or left main coronary artery disease she should get a cardiac catheterization. This was discussed with her with help of litigation specialist. Also discussed this with her daughter Mer[place] and explained the clinical findings. I discussed with her about the procedure and associated risk. She understands and agrees. Will transfer to [facility] for the same. She is agreeable. COVID testing to be done. For now continue IV heparin, aspirin, nitro paste, Lasix. Also continue metoprolol therapy. Continue high-intensity statin therapy. Continue aggressive care of diabetes. Further treatment based on the findings of cardiac catheterization. If she require stenting, she would be on triple therapy but for a short time. Most likely she would have surgical disease and appears that she does not have any major contraindication for surgical revascularization (2) Persistent atrial fibrillation: Status: Acute Persistent atrial fibrillation currently rate controlled. Currently on IV heparin. Once stabilize and revascularization completed probably should consider oral anticoagulation therapy most likely Eliquis therapy. She has had no recurrent bleeding issues in the last few months. Will transfer to [facility]. Greater than 45 minutes was spent in managing her complex care. Time Spent With Patient Time: Total time managing care of this patient today ____ minutes. Procedures Date of Service Date of Service: 04/10/23
--- NOTE | 2023-04-10 10:26 | P.DS_ITS ---
DS: Providers Provider Date of Service: 04/10/23 Date of admission: 04/09/23 16:38 Date of discharge: 04/10/23 Primary care physician: Unknown Physician Consults: 04/09/23 18:28 Consult to Cardiology Routine Consulting Provider: [facility] Reason for consultation: AF/CHF/Tn 10->100 Attending physician on discharge: Layo Nieves Discharging clinician: Layo Nieves DS: Diagnosis Discharge Diagnosis (1) Acute congestive heart failure: Status: Acute (2) Persistent atrial fibrillation: Status: Acute (3) NSTEMI (non-ST elevated myocardial infarction): Status: Acute DS: Summary Hospital Course Hospital Course: 78-year-old female with a PMH significant for persistent ?AFib with RVR on Eliquis, anxiety, egx-prxbddp-kgddzdhlk diabetes type 2, asthma/COPD overlap syndrome, HTN, CKD , gout, and chronic anemia who presents to the ED with?worsening SOB. Pt is [place]-speaking only; educational sign language interpreter services utilized. Pt states she has had SOB for many days that worsened today, which prompted her visit. States SOB has limited her activity, she is now unable to go to the corner store or walk across the street.? Patient states that she has had a history of recent falls lately with last one around 4 days ago when she slipped and fell on her side on the concrete.? Patient denies head strike or loss of consciousness. Pt also reports falling out of bed a few weeks prior. Patient also complains of intermittent, sharp stabbing right-sided anterior chest wall pain that began yesterday. Pt knows of no precipitating or aggravating factors,? Patient has been using Vicks vapor rub and alcolado topically to relieve the pain. In the ED pt was afebrile, tachycardic at 120, tachypnic up to 33, and hypertensive up to 178/99.? Patient was placed on CPAP but could not tolerate it then placed on BiPAP could not tolerated and eventually satting 90% on RA. Labs were significant for chronic stable anemia of 10 6/35.0, potassium of 5.4, glucose of 322, AST of 185, ALT of 123, alk-phos 145, BNP 797.? Ethyl alcohol levels undetectable. CXR showed small right pleural effusion with supra adjacent atelectasis, underlying mild congestion cannot be excluded. EKG demonstrated AFib with RVR 114 with no evidence of ST elevations or depressions. Pt was treated with nitroglycerin transdermal patch, furosemide 60 mg IV push x2 doses, and lorazepam. Pt will be admitted to the hospital for treatment further evaluation of acute HFpEF exacerbation Hospital course: Patient came with shortness of breath: Subsequently got admitted for acuteHFpEF exacerbation-started on IV Lasix, she also had anterior chest wall pain-further workup troponin elevated, EKG changes was found to be possible NSTEMI : Patient is currently on aspirin statin, beta-savanna, IV heparin drip: Currently patient is feeling better shortness of breath and denies significant chest pain. Patient needs to go to [facility] for further cardiac workup including cardiac catheterization. Hyperkalemia-given Lokelma yesterday seems to be improved. She also had recent falls: Consider PT evaluation. She also had mild elevation of LFTs: Seems to be improving, monitor closely, may need further workup if lft's worsen. plan: Patient is going for possible cardiac catheterization to [facility]-currently on IV diuretics for CHF and anticoagulation for possible NSTEMI. moniter cbc ,bmp,lft's Above management discussed with the patient in detail length with the help of site interpreter, assessment and plan coordination time spent 50 minute. Time Spent with Patient Time attestation: Total time managing care of this patient today ____ minutes. Discharge coordination time: Greater than 30 minutes Quality: Safe Use of Opioids Does Pt have an Active Cancer Diagnosis on the Problem List?: No Quality: Stroke Does the patient have a stroke diagnosis?: No Physical Exam Vital Signs: Vital Signs: Last Vital Signs Temp 97.8 F 04/10/23 09:32 Pulse 94 04/10/23 09:32 Resp 25 H 04/10/23 09:32 BP 129/77 04/10/23 09:32 Pulse Ox 100 04/10/23 09:32 O2 Del Method Nasal Cannula 04/10/23 09:32 O2 Flow Rate 2 04/10/23 09:32 BMI result Body Mass Index 38.3 Appearance: Alert.? Oriented X3.? not in distress.? cvs: rrr, [id number] . res: Air entry improving, few faint crackles at the bases. abd: no rebound or guarding ,nt, bs present. ext pulses present , no cyanosis. neuro: axo3 , nonfocal. DS: Data Data Completed and Pending Completed studies during hospitalization [Text1]: Procedures Assistance with Respiratory Ventilation, Less than 24 Consecutive Hours, Continuous Positive Airway Pressure (03/02/23) Dilation of Bilateral Ureters with Intraluminal Device, Via Natural or Artificial Opening Endoscopic (03/02/23) Fluoroscopy of Kidneys, Ureters and Bladder (03/02/23) Removal of Intraluminal Device from Bladder, Via Natural or Artificial Opening Endoscopic (12/19/22) Labs on day of discharge: Laboratory Results - last 24 hr 04/09/23 04/09/23 04/09/23 09:16 17:24 19:21 WBC 6.4 RBC 3.75 L Hgb 10.3 L Hct 32.7 L MCV 87.2 MCH 27.5 MCHC 31.5 RDW 15.3 Plt Count 262 MPV 10.1 Immature Gran % (Auto) Neut % (Auto) Lymph % (Auto) [place] % (Auto) Eos % (Auto) Baso % (Auto) Lymph # (Auto) [place] # (Auto) Eos # (Auto) Baso # (Auto) Abs Immat Gran (auto) Absolute Neuts (auto) Absolute Nucleated RBC 0.000 Nucleated RBC % (auto) 0.0 PT INR aPTT Heparin Protocol Sodium Potassium Chloride Carbon Dioxide Anion Gap BUN Creatinine Estim Creat Clear Calc Estimated GFR POC Glucose Random Glucose Calcium Magnesium Total Bilirubin AST ALT Alkaline Phosphatase Troponin I High Sens 108.5 H* D Total Protein Albumin Ethyl Alcohol < 10 04/09/23 04/09/23 04/09/23 19:21 23:47 23:47 WBC RBC Hgb Hct MCV MCH MCHC RDW Plt Count MPV Immature Gran % (Auto) Neut % (Auto) Lymph % (Auto) [place] % (Auto) Eos % (Auto) Baso % (Auto) Lymph # (Auto) [place] # (Auto) Eos # (Auto) Baso # (Auto) Abs Immat Gran (auto) Absolute Neuts (auto) Absolute Nucleated RBC Nucleated RBC % (auto) PT 15.0 H INR 1.3 H aPTT Heparin Protocol Sodium 141 Potassium 3.4 D Chloride 102 Carbon Dioxide 25 Anion Gap 17 BUN 19 H Creatinine 0.86 Estim Creat Clear Calc 57.0 Estimated GFR > 60 POC Glucose Random Glucose 138 H Calcium 9.5 Magnesium Total Bilirubin AST ALT Alkaline Phosphatase Troponin I High Sens 124.9 H* Total Protein Albumin Ethyl Alcohol 04/10/23 04/10/23 04/10/23 00:42 06:44 06:53 WBC Cancelled RBC Cancelled Hgb Cancelled Hct Cancelled MCV Cancelled MCH Cancelled MCHC Cancelled RDW Cancelled Plt Count Cancelled MPV Cancelled Immature Gran % (Auto) Neut % (Auto) Lymph % (Auto) [place] % (Auto) Eos % (Auto) Baso % (Auto) Lymph # (Auto) [place] # (Auto) Eos # (Auto) Baso # (Auto) Abs Immat Gran (auto) Absolute Neuts (auto) Absolute Nucleated RBC Cancelled Nucleated RBC % (auto) Cancelled PT INR aPTT Heparin Protocol 105.7 H Sodium Potassium Chloride Carbon Dioxide Anion Gap BUN Creatinine Estim Creat Clear Calc Estimated GFR POC Glucose 145 H Random Glucose Calcium Magnesium Total Bilirubin AST ALT Alkaline Phosphatase Troponin I High Sens Total Protein Albumin Ethyl Alcohol 04/10/23 04/10/23 04/10/23 06:53 06:53 06:53 WBC RBC Hgb Hct MCV MCH MCHC RDW Plt Count MPV Immature Gran % (Auto) Neut % (Auto) Lymph % (Auto) [place] % (Auto) Eos % (Auto) Baso % (Auto) Lymph # (Auto) [place] # (Auto) Eos # (Auto) Baso # (Auto) Abs Immat Gran (auto) Absolute Neuts (auto) Absolute Nucleated RBC Nucleated RBC % (auto) PT 13.6 H INR 1.2 H aPTT Heparin Protocol 70.1 D Sodium Potassium Chloride Carbon Dioxide Anion Gap BUN Creatinine Estim Creat Clear Calc Estimated GFR POC Glucose Random Glucose Calcium Magnesium Total Bilirubin AST ALT Alkaline Phosphatase Troponin I High Sens 94.6 H* Total Protein Albumin Ethyl Alcohol 04/10/23 04/10/23 06:54 06:54 WBC 5.8 RBC 3.50 L Hgb 9.5 L Hct 30.9 L MCV 88.3 MCH 27.1 MCHC 30.7 L RDW 15.2 Plt Count 241 MPV 10.5 Immature Gran % (Auto) 0.2 Neut % (Auto) 62.4 Lymph % (Auto) 21.1 [place] % (Auto) 10.3 Eos % (Auto) 4.8 H Baso % (Auto) 1.2 Lymph # (Auto) 1.2 [place] # (Auto) 0.6 Eos # (Auto) 0.3 Baso # (Auto) 0.1 Abs Immat Gran (auto) 0.01 Absolute Neuts (auto) 3.7 Absolute Nucleated RBC 0.000 Nucleated RBC % (auto) 0.0 PT INR aPTT Heparin Protocol Sodium 141 Potassium 3.7 Chloride 104 Carbon Dioxide 27 Anion Gap 14 BUN 19 H Creatinine 0.83 Estim Creat Clear Calc 59.0 Estimated GFR > 60 POC Glucose Random Glucose 142 H Calcium 9.1 Magnesium 1.9 Total Bilirubin 0.9 AST 81 H ALT 91 H Alkaline Phosphatase 114 Troponin I High Sens Total Protein 6.6 Albumin 3.7 Ethyl Alcohol Imaging Chest x-ray: Radiologist's impression: ITS Impressions Chest X-Ray 04/09/23 10:05 IMPRESSION: Small right pleural effusion with superjacent atelectasis was not seen previously. Underlying mild congestion cannot be excluded. Discharge Plan Discharge Anticipated Discharge Date/Time: 04/10/23 10:14 Patient Disposition: Xfer Acute Care Hospital Discharge Diagnosis: NSTEMI, CHF exacerbation. Referrals: [facility] [Outside] - 1 Week Physician,Unknown J [Primary Care Provider] - 1 Week Discharge Medications: New furosemide 10 mg/mL Solution 40 mg IVPUSH BID@0900,1800 Qty: 1 0RF Protocol: Hold for SBP< HOLD for SBP < : 90 heparin(porcine) in 0.45% NaCl 25,000 unit/250 mL Parenteral Solution 25,000 unit continuous IV infusion .Q0M Qty: 1 0RF Continued simethicone [Gas Relief Extra Strength] 125 mg capsule 125 mg PO TID-QID PRN (Reason: Indigestion) Qty: 120 6RF fluticasone propion-salmeterol [Advair Diskus] 250-50 mcg/dose blister with device 1 puff INHALATION BID albuterol sulfate 2.5 mg /3 mL (0.083 %) solution for nebulization 1 amp inhalation QID PRN (Reason: Wheezing) (DME) blood-glucose meter [[employer] Ver[employer] Flex meter] Misc MISCELLANEOUS DIRECTED diltiazem HCl [Cartia XT] 180 mg capsule,extended release 24hr 1 cap PO DAILY (DME) OneTouch Verio test strips Strip MISCELLANEOUS BID (DME) lancets [[employer] Delica Plus Lancet] 33 gauge misc MISCELLANEOUS BID Eliquis 5 mg tablet 5 mg PO BID Qty: 60 0RF aspirin 81 mg tablet,delayed release (DR/EC) 81 mg PO DAILY pyridoxine (vitamin B6) 100 mg tablet 100 mg PO DAILY oxycodone 5 mg tablet 5 mg PO Q6H PRN (Reason: severe pain (scale score 7-10)) Qty: 16 0RF Rx Instructions: Partial Fill upon patient request. tramadol 50 mg Tablet 50 mg PO Q8H PRN (Reason: Pain) losartan 25 mg Tablet 25 mg PO DAILY ferrous gluconate 324 mg (37.5 mg iron) Tablet 324 mg PO Q OTHER DAY famotidine 20 mg tablet 20 mg PO BID Qty: 180 2RF Fiber Laxative (methylcellulo) 500 mg tablet 500 mg PO DAILY Qty: 90 2RF sennosides [senna] 8.6 mg tablet 8.6 mg PO BID PRN (Reason: constipation) Qty: 180 2RF hydrocortisone [Proctosol HC] 2.5 % cream with perineal applicator 1 appl NC BID-QID PRN (Reason: hemorrhoids) Qty: 30 2RF carvedilol 3.125 mg tablet 3.125 mg PO BID metformin 850 mg tablet 850 mg PO BIDWM atorvastatin 80 mg tablet 80 mg PO DAILY albuterol sulfate [Ventolin HFA] 90 mcg/actuation HFA aerosol inhaler 2 puff inhalation Q4-6H PRN (Reason: Wheezing) Myrbetriq 50 mg tablet extended release 24 hr 50 mg PO DAILY Qty: 30 1RF Held furosemide 20 mg Tablet 20 mg PO Q OTHER DAY Hold Instructions: Resume on 04/21/23. Discharge Orders: Discharge Order (Routine); Ordered 04/10/23 Ordered By: Layo Nieves Diet: Advance to usual diet Activity on Discharge: As tolerated Stand Alone Forms: Patient Portal Discharge page Care Plan Goals: Patient came with shortness of breath: Subsequently got admitted for acuteHFpEF exacerbation-started on IV Lasix, she also had anterior chest wall pain-further workup troponin elevated, EKG changes was found to be possible NSTEMI : Patient is currently on aspirin statin, beta-savanna, IV heparin drip: Currently patient is feeling better shortness of breath and denies significant chest pain. Patient needs to go to [facility] for further cardiac workup including cardiac catheterization. Hyperkalemia-given Lokelma yesterday seems to be improved. She also had recent falls: Consider PT evaluation. She also had mild elevation of LFTs: Seems to be improving, monitor closely, may need further workup if lft's worsen. moniter cbc ,bmp,lft's Health Concerns: as above. Plan of Treatment: as above. Assessment: as above. Patient Instructions: Heart Attack (DC), Heart Failure (DC)
--- NOTE | 2023-04-10 11:21 | MHC.EDTECH ---
Betina called from [facility] to let us know patient has a room in [facility] Room 26. Accepting DrIvan is Janet. Nurse to nurse call [phone]
--- NOTE | 2023-04-10 12:45 | PC.NURSE ---
rn to rn report given to nicolasa ([facility] [place], [facility], room 26, ). report was also given to ems at this time for transport to [facility] [place].
--- NOTE | 2023-04-10 14:11 | MHC.CM.PN ---
Patient transferred to [facility] before being seen by case management.
[2023-04-11 12:12] LABS: Glucose, Whole Blood 150 mg/dL (60-115)
== END 2023-04-10 13:00 | disposition short-term general hospital (02) | DRG 280 ==
LOC: HO.ED 13:49 → HO.EDOVER 16:48
PROVIDERS: Family Medicine; Internal Medicine; Admitting Provider Student in an Organized Health Care Education/Training Program; Emergency Provider Emergency Medicine Emergency Medical Services; PCP Registered Nurse; Visit Provider Internal Medicine
DX: I13.0 Hypertensive heart and chronic kidney disease with heart failure and stage 1 through stage 4 chronic kidney disease, or unspecified chronic kidney disease (principal); I21.4 Non-ST elevation (NSTEMI) myocardial infarction; I50.33 Acute on chronic diastolic (congestive) heart failure; I48.19 Other persistent atrial fibrillation; E66.09 Other obesity due to excess calories; Z68.38 Body mass index [BMI] 38.0-38.9, adult; E87.5 Hyperkalemia; F41.9 Anxiety disorder, unspecified; E11.22 Type 2 diabetes mellitus with diabetic chronic kidney disease; N18.9 Chronic kidney disease, unspecified; D63.1 Anemia in chronic kidney disease; Z79.01 Long term (current) use of anticoagulants; Z79.51 Long term (current) use of inhaled steroids; Z79.84 Long term (current) use of oral hypoglycemic drugs; Z79.899 Other long term (current) drug therapy
CPT/HCPCS: 36415; 71045; 80048; 80053; 80307; 82947; 83735; 83880; 84484; 85025; 85027; 85610; 85730; 93005; 99285; J1643; J1940; J2060; J2270

== ENCOUNTER → 2023-04-27 11:29 | Outpatient (BNVA) | payer OTHER, SELFPAY | PROVIDERS: PCP Registered Nurse; Visit Provider Internal Medicine Cardiovascular Disease | DX: I21.4 Non-ST elevation (NSTEMI) myocardial infarction (principal); I48.19 Other persistent atrial fibrillation; I50.9 Heart failure, unspecified | CPT/HCPCS: 93005; 99212 ==

== ENCOUNTER → 2023-04-30 10:53 | Outpatient (BNVA) | payer OTHER, SELFPAY | PROVIDERS: PCP Registered Nurse; Visit Provider Internal Medicine Pulmonary Disease | DX: N95.0 Postmenopausal bleeding (principal) | CPT/HCPCS: 99202 ==

== ENCOUNTER 2023-05-22 14:47 | Outpatient (REF) | payer OTHER, SELFPAY ==
[2023-05-22 15:10] LABS: MANUAL DIFF FLAG NO
[2023-05-22 16:06] LABS: Basophils Percent Auto 0.7 % (0-2); Eosinophils Absolute Auto 0.2 X10*3/uL (0.0-0.4); Eosinophils Percent Auto 3.6 % (0-4); Hematocrit 33.1 % (37.0-47.0); Hemoglobin 10.3 g/dl (12.0-16.0); Imm Gran Abs Auto 0.02 X10*3/uL (0.00-0.03); Imm Gran Pct Auto 0.3 % (0.0-0.4); Lymphocytes Absolute Auto 0.8 X10*3/uL (1.2-4.9); Lymphocytes Percent Auto 12.5 % (20-40); Mean Corpuscular HGB Conc 31.1 g/dl (31.0-35.0); Mean Corpuscular Hemoglobin 26.6 pg (27.0-33.0); Mean Corpuscular Volume 85.5 fL (80.0-98.0); Mean Platelet Volume 11.1 fL (9.4-12.3); Monocytes Absolute Auto 0.5 X10*3/uL (0.1-1.2); Monocytes Percent Auto 7.6 % (2-11); Neutrophils Absolute Auto 4.6 x10*3/uL (2.0-8.3); Neutrophils Percent Auto 75.3 % (45-73); Platelet Count 228 X10*3/uL (160-400); Red Blood Count 3.87 X10*6/uL (4.20-5.50); Red Cell Distribution Width 13.6 % (11.0-16.0); White Blood Count 6.1 X10*3/uL (4.8-10.8)
[2023-05-22 16:37] LABS: Anion Gap 16 (12-20); Blood Urea Nitrogen 36 mg/dL (9-16); Calcium 9.6 mg/dL (8.4-10.2); Carbon Dioxide 24 mmol/L (22-29); Chloride 100 mmol/L (96-108); Estimated Glomerular Filt Rate 24; Glucose Random 203 mg/dL (60-115); Iron 55 mcg/dL (30-160); Percent Iron Saturation 19 % (15-50); Potassium 3.8 mmol/L (3.3-5.1); Sodium 136 mmol/L (135-145); Total Iron Binding Capacity 287 mcg/dL (228-428); Unsaturated Iron Binding 232 ug/dL
[2023-05-22 16:53] LABS: Ferritin 175 ng/mL (10-250)
== END 2023-05-22 14:48 | disposition home or self-care (01) ==
LOC: HO.LAB 14:47
PROVIDERS: PCP Nurse Practitioner Primary Care; Visit Provider Nurse Practitioner Primary Care
DX: D50.0 Iron deficiency anemia secondary to blood loss (chronic) (principal); E11.21 Type 2 diabetes mellitus with diabetic nephropathy
CPT/HCPCS: 36415; 80048; 82728; 83540; 85025

== ENCOUNTER 2023-05-25 09:55 | Inpatient (IN) | payer OTHER, SELFPAY ==
--- NOTE | ~2023-05-25 | CT_ITS ---
EXAMINATION: CT ABDOMEN AND PELVIS WITHOUT CONTRAST CLINICAL INFORMATION: Abdominal pain COMPARISON: None available. TECHNIQUE: Multidetector volumetric imaging was performed from the superior aspect of the liver through the pubic symphysis. Sagittal and coronal reformatted images were obtained on the technologist's workstation. This CT examination was performed using dose optimization techniques as appropriate, variously including the following: *Automated exposure control *Adjustment of mA and/or kV according to patient size (this includes techniques or standardized protocols for targeted exams where dose is matched to indication/reason for exam; i.e. extremities or head) *Use of iterative reconstruction technique DLP: 646 mGy-cm FINDINGS: LUNG BASES: Mild atelectatic changes are seen in lingula and right middle lobe. LIVER, GALLBLADDER, AND BILIARY TREE: The liver is normal in size, shape, and attenuation. No focal hepatic lesion or biliary ductal dilatation is present. The gallbladder is unremarkable with no evidence of radiopaque gallstones, gallbladder wall thickening, or obvious pericholecystic inflammatory changes. PANCREAS: Unremarkable. SPLEEN: Unremarkable. ADRENAL GLANDS: Unremarkable. KIDNEYS AND URETERS: The kidneys are normal in size, shape, and attenuation. There is 9 mm radiopaque nonobstructing calculi left kidney lower pole. It is approximately 14 is) from the posterior skin line. There is a right UPJ obstruction with a significantly distended right kidney pelvis. There is a likely vessel cross the UPJ. However the exam is limited due to lack of IV contrast No perinephric stranding. There is a large calcified septated left renal cyst, Bosniak type II. It measures 8.9 x 7.1 cm. BLADDER: Unremarkable. GASTROINTESTINAL TRACT: There is scattered colonic diverticulosis, stool and gas in the colon without distention or diverticulitis. The small bowel loops are normal caliber. No inflammatory process of free fluid seen. ABDOMINAL WALL: A small medical hernia containing fat is noted. LYMPH NODES: Normal. VASCULAR: Unremarkable. PELVIC VISCERA: There is diffuse sigmoid colon diverticulosis without diverticulitis. There is no free fluid. Uterus is atrophied or surgically absent. No adnexal mass seen. OSSEOUS STRUCTURES: There is degenerative disc changes L5-S1 disc level with moderate spondylosis lower dorsal and upper lumbar spine. CT/CT abdomen pelvis wo IV con IMPRESSION: 1. Diffuse sigmoid and scattered rest of the colon diverticulosis without diverticulitis. 2. Nonobstructive 9 mm radiopaque calculi lower pole left kidney. 3. Right UPJ obstruction with a significantly distended right kidney pelvis. There is a likely vessel crossing the UPJ. Recommend CTA abdomen. 4. Large Bosniak type II left renal cyst. 5. Small umbilical hernia containing fat. 6. Degenerative disc changes L5-S1 disc level with moderate spondylosis lower dorsal and upper lumbar spine. Fleischner guidelines were followed.
--- NOTE | ~2023-05-25 | CT_ITS ---
EXAMINATION: CT ABDOMEN AND PELVIS WITHOUT CONTRAST CLINICAL INFORMATION: Follow-up evaluation. COMPARISON: 05/25/2023 TECHNIQUE: Multidetector volumetric imaging was performed from the superior aspect of the liver through the pubic symphysis. Sagittal and coronal reformatted images were obtained on the technologist's workstation. This CT examination was performed using dose optimization techniques as appropriate, variously including the following: *Automated exposure control *Adjustment of mA and/or kV according to patient size (this includes techniques or standardized protocols for targeted exams where dose is matched to indication/reason for exam; i.e. extremities or head) *Use of iterative reconstruction technique DLP: 593 mGy-cm FINDINGS: LUNG BASES: Small right pleural effusion. LIVER, GALLBLADDER, AND BILIARY TREE: The noncontrast liver is normal in size and contour. No biliary ductal dilatation is present. The gallbladder is unremarkable with no evidence of radiopaque gallstones, gallbladder wall thickening, or obvious pericholecystic inflammatory changes. PANCREAS: Atrophic. SPLEEN: Not enlarged. ADRENAL GLANDS: No adrenal masses. KIDNEYS AND URETERS: Atrophic left kidney. There are nonobstructed left renal calculi with the largest measuring 8 mm in the lower pole. Anterior mid pole cyst measures 4.6 x 5.0 cm. Posterior midpole cyst measures 8.3 x 7.1 cm with multiple septations some exhibiting calcification. Both measure fluid attenuation. Marked right hydronephrosis with right perinephric stranding. There is an abrupt transition point at the ureteropelvic junction. BLADDER: Decompressed with indwelling Johnson catheter. GASTROINTESTINAL TRACT: Small and large bowel loops are of normal caliber. No small bowel obstruction. Appendix is within normal limits. Moderate fecal retention in the colon. Extensive diverticular disease of the sigmoid colon. ABDOMINAL WALL: Fat-containing left inguinal hernia. LYMPH NODES: No bulky abdominal or pelvic lymphadenopathy. VASCULAR: Normal caliber abdominal aorta. PELVIC VISCERA: Uterus is surgically absent. OSSEOUS STRUCTURES: No destructive bone lesions. CT/CT abdomen pelvis wo IV con IMPRESSION: Severe right hydroureteronephrosis with transition point at the right ureteropelvic junction. There appears to be a crossing vessel -- evaluation limited by lack of intravenous contrast. Right perinephric stranding. Nonobstructing left renal calculi. No hydronephrosis. Multiseptated complex posterior midpole left renal cyst. Bosniak 2F classification. Small right pleural effusion.
--- NOTE | ~2023-05-25 | FL_ITS ---
EXAMINATION: XR FLUOROSCOPY WITH IMAGES CLINICAL INFORMATION: Right retrograde cystoscopy COMPARISON: Previous CT from yesterday TECHNIQUE: Fluoroscopy Supervised By: Dr. Lior Tellez. Fluoroscopy Time: 16 seconds. Cumulative Dose: 5.2 mGy. DAP: Gycm2. Images: 2. FINDINGS: Images demonstrate a wire projecting over the partially opacified right renal collecting system and nonopacified right ureter. Final image demonstrates proximal end of a right internal ureteral stent. FL/FL guidance in OR IMPRESSION: Fluoroscopy guidance for urology procedure
[2023-05-25 11:27] VITALS: BP 157/71; PULSE 79; RESP 16; TEMP 35.9; O2SAT 99; BMI 33.8
--- NOTE | 2023-05-25 11:30 | ED_ITS ---
HPI - General Adult General Chief complaint: Abdominal Pain Stated complaint: abd pain Time Seen by Provider: 05/25/23 16:46 Source: patient Mode of arrival: ambulatory Limitations: no limitations History of Present Illness HPI narrative: Patient is a 78-year-old female who presents emergency department for evaluation of abdominal pain with onset 1-2 week ago localized to the suprapubic region with urinary frequency, and mild nausea. Pain had been intermittent and mild initially. Since yesterday pain had become significantly worse. Denies dysuria, hematuria. Denies back pain, diarrhea, constipation, bloody or dark stools, fevers, chills, vomiting Related Data Home Medications Medication Instructions Recorded Confirmed albuterol sulfate 2.5 mg/3 mL 1 amp inhalation QID PRN Wheezing 09/06/22 05/25/23 (0.083 %) solution for nebulization blood sugar diagnostic (TattoodoTouch 09/06/22 04/27/23 Verio test strips) blood-glucose meter (TattoodoTouch 09/06/22 04/27/23 Verio Flex Meter) fluticasone 250 mcg-salmeterol 50 1 puff inhalation BID 09/06/22 05/25/23 mcg/dose blistr powdr for inhalation (Advair Diskus) lancets 33 gauge (OneTouch Delica 09/06/22 04/27/23 Plus Lancet) albuterol sulfate 90 mcg/actuation 2 puff inhalation Q4-6H PRN 10/23/22 05/25/23 aerosol inhaler (Ventolin HFA) Wheezing atorvastatin 80 mg tablet 80 mg PO DAILY 10/23/22 05/25/23 metformin 850 mg tablet 850 mg PO BIDWM 10/23/22 05/25/23 pyridoxine (vitamin B6) 100 mg 100 mg PO DAILY 03/02/23 05/25/23 tablet ferrous gluconate 324 mg (37.5 mg 324 mg PO Q2D 04/09/23 05/25/23 iron) tablet tramadol 50 mg tablet 50 mg PO Q8H PRN Pain 04/09/23 05/25/23 clopidogrel 75 mg tablet 75 mg PO DAILY 04/27/23 05/25/23 metoprolol succinate 50 mg 50 mg PO DAILY 04/27/23 05/25/23 tablet,extended release 24 hr (Toprol XL) acetaminophen 325 mg tablet 650 mg PO Q6H PRN mild pain 05/25/23 05/25/23 alendronate 70 mg tablet 70 mg PO REESE@0900 05/25/23 05/25/23 cetirizine 10 mg tablet 10 mg PO DAILY 05/25/23 05/25/23 docusate sodium 100 mg capsule 100 mg PO BID 05/25/23 05/25/23 fluticasone propionate 50 1 spray intranasal DAILY PRN 05/25/23 05/25/23 mcg/actuation nasal Allergy Symptoms spray,suspension furosemide 40 mg tablet 40 mg PO DAILY 05/25/23 05/25/23 lidocaine 5 % topical patch 1 patch topical DAILY PRN Pain 05/25/23 05/25/23 (Scale Score 1-3) polyethylene glycol 3350 17 gram 17 g PO DAILY 05/25/23 05/25/23 oral powder packet sennosides 8.6 mg tablet (senna) 1 tab PO BID 05/25/23 05/25/23 simethicone 125 mg capsule (Gas 125 mg PO QID PRN Indigestion 05/25/23 05/25/23 Relief Extra Strength) Previous Rx's Medication Instructions Recorded famotidine 20 mg tablet 20 mg PO BID #180 tabs 10/27/22 apixaban 5 mg tablet (Eliquis) 5 mg PO BID #60 tabs 12/27/22 methylcellulose (laxative) 500 mg 500 mg PO DAILY #90 tabs 01/19/23 tablet (Fiber Laxative (methylcellulose)) mirabegron 50 mg tablet,extended 50 mg PO DAILY #30 tabs 03/16/23 release 24 hr (Myrbetriq) losartan 50 mg tablet 50 mg PO DAILY 90 days #90 tabs 05/25/23 Allergies Allergy/AdvReac Type Severity Reaction Status Date / Time montelukast [Singulair] Allergy Unknown itching/marysol Verified 05/25/23 11:27 h From Singulair Allergy Intermediate RASH Uncoded 05/25/23 11:27 Review of Systems Review of Systems: Constitutional : No Weight loss, No Fever, No Chills ENT/Mouth :? No sore throat, No Rhinorrhea Eyes: No Swelling, No Redness Cardiovascular : No Chest Pain, No SOB, No Edema Respiratory : No Cough, No Sputum, No Wheezing Gastrointestinal : Positive Nausea, no Vomiting, no Diarrhea, positive abdominal pain, No Hematochezia, No Melena Genitourinary : No Dysuria, No Urinary Frequency, No Hematuria, No Urgency? Musculoskeletal : No joint pain, No Myalgias, No Joint Swelling Skin : No Skin Lesions, No rash Neuro : No Weakness, No Numbness, No Dizziness, No Headache Yes all other systems are reviewed and are negative PMFSH Past Medical History Attestation statement: The following information was validated with the patient. Source: old records reviewed Medical History (Updated 05/26/23 @ 02:01 by Nona Severino CNP) Alcohol abuse Anxiety Arthritis Asthma Asymmetrical thyroid Atrial fibrillation CHF (congestive heart failure) COPD (chronic obstructive pulmonary disease) COVID-19 Diabetes Gout Hypertension Knee arthropathy Nephrolithiasis NSTEMI (non-ST elevated myocardial infarction) Obstruction, uropathy Osteoarthritis Renal cyst, acquired, left Thrombosed external hemorrhoid Surgical History History of total knee arthroplasty Hx of colonoscopy Social History Social History Household Members: Family Household Members Other:: DAUGHTER Housing: Apartment Housing Other:: low income housing Do you presently have visiting nurse or other home services: No (granddaughter is marketing intelligence manager) Unable to assess alcohol history related to: Unknown Alcohol intake: unknown Patient Tobacco Use Status: Never used Tobacco Smoked in Last 30 Days: No e-Cigarette/Vaping Use: Never Used Second Hand Smoke Exposure: No Use of substances other than those prescribed or required for medical reasons: No Have you been hit, kicked, punched, or otherwise hurt by someone within the past year? If so, by whom?: No Do you feel safe in your current relationship?: No Current Relationship Is there a partner from a previous relationship who is making you feel unsafe now?: No Are you made to feel afraid or neglected: No Advance Directives: Yes Advance Directives on File: Yes Advance Directives Date on File: 09/07/22 Do you have thoughts of harming others: None Do you have a plan to hurt others: No Plan Recently lost weight without trying: Unsure How much weight loss: Unsure Eating poorly because of decreased appetite: No Nutrition screen score: 4 Nutrition Risks: No Nutritional Risk Patient : No : No service: No Current occupational status: disabled Physical Exam ED Vital Signs: Vital Signs - 24 hr 05/25/23 11:27 05/25/23 17:40 Temperature 96.7 F L 98.0 F Pulse Rate 79 82 Respiratory Rate 16 16 Blood Pressure 157/71 H 172/80 H Pulse Oximetry 99 100 Oxygen Delivery Method Room Air Room Air BMI result Body Mass Index 33.8 Appearance: Alert.?Oriented to person, place and time. No acute distress.?Normal affect. Eyes: Pupils equal, round and reactive to light.? ENT: Pharynx normal.?? Neck: Normal inspection.? Neck supple.?? CVS: Heart sounds normal. Normal heart rate and rhythm.? Pulses normal.?? Respiratory: No respiratory distress.? Lung sounds clear to auscultation bilaterally?? Abdomen: Soft with diffuse lower abdominal and bilateral CVA tenderness. No rigidity. No guarding. Normoactive bowel sounds. Skin: Skin warm and dry.? Normal skin color.? ? Extremities: Bilateral lower extremity nonpitting edema..? No calf ttp? Neuro: Moves all extremities spontaneously. Sensation intact bilaterally. No f ocal neuro deficits. Ambulates with normal steady gait. Course Course Course Narrative: This is an RME: Additional HPI, ROS, PE not included below will be deferred to primary provider. This is a [id number]-female, hx of AFib with RVR on Eliquis, anxiety, diabetes, kidney stones, renal cysts asthma, presenting to the ER with complaints of suprapubic abdominal pain x 1 week. Reporting some polyuria, no other urinary symptoms. No constipation, endorsing nausea last night. No vomiting, fevers, c hills. Abdomen is soft, with suprapubic ttp on examination. Nontoxic appearing, BP 157/71, afebrile. Plan: Labs, UA ordered. Reevaluation(s) Reevaluation #1: CBC reveals no leukocytosis, anemia which is consistent with baseline. CMP reveals ORION; BUN and creatinine 43/2.35 which is increased when compared to labs obtained 3 days ago at 36/2.01 respectively, and near normal renal function 04/10/2023. Per patient's caregiver the labs obtained 05/22/2023 were done outpatient through her primary care provider for evaluation of anemia, they have not received contact from PCP office regarding results. Urinalysis is not over whelmingly concerning for urinary tract infection, 1+ leukocyte esterase and WBC but negative nitrites for urine bacteria. Will obtain CT of the abdomen and pelvis for further evaluation and potential obstructive etiology. Given patient's history of CHF will gently hydrate with normal saline 500 mL, patient to receive morphine IV for pain, Zofran IV for nausea, and CT of the abdomen and pelvis without contrast for further evaluation Time: 16:58 Reevaluation #2: CT of the abdomen and pelvis revealing diverticulosis without diverticulitis, nonobstructive left renal calculi, right UPJ obstruction with significant distension and likely a vessel crossing the UPJ with recommendations for CTA. Consult did with urology; Dr. Tellez, who recommends Johnson catheter insertion, admission to medicine service. Spoke with hospitalist; Dr. Abraham, who accepts patient for admission. Patient and caregiver updated on plan of care. Time: 20:03 Medications Administered Generic Name Dose Route Start Last Admin Trade Name Freq PRN Reason Stop Dose Admin Morphine Sulfate 2 mg 05/25/23 21:40 05/26/23 01:07 Morphine Sulfate 4 Mg/Ml Cartridge IVPUSH 2 mg Q4H PRN Administration Pain, Severe (Pain Scale 7-10) Protocol Sodium Chloride 3 ml 05/26/23 00:00 05/26/23 00:28 0.9 % Sodium Chloride Flush 3 Ml Syringe IVFLUSH 3 ml QSHIFT GONZALEZ Administration Discontinued Medications Generic Name Dose Route Start Last Admin Trade Name Freq PRN Reason Stop Dose Admin Sodium Chloride 500 mls @ 999 mls/hr 05/25/23 17:15 05/25/23 17:37 Ns IV 05/25/23 17:45 999 mls/hr .Q31M GONZALEZ Administration Morphine Sulfate 4 mg 05/25/23 17:11 05/25/23 17:39 Morphine Sulfate 4 Mg/Ml Cartridge IVPUSH 05/25/23 17:12 4 mg ONCE ONE Administration Protocol Ondansetron HCl 4 mg 05/25/23 17:11 05/25/23 17:39 Ondansetron Hcl 4 Mg/2 Ml Vial IVPUSH 05/25/23 17:12 4 mg ONCE ONE Administration Medical Decision Making Medical Decision Making MDM Narrative: Patient is a 78-year-old female with past medical history of atrial fibrillation on Eliquis, CHF, NSTEMI, anxiety, diabetes, kidney stones, renal cysts, COPD, hypertension, admission in February of 2023 for bilateral obstructive uropathy with ORION with bilateral stenting and subsequent removal outpatient 04/01/2023. Presenting to emergency department for evaluation of abdominal pain. Abdomen is soft and nondistended but has significant diffuse tenderness and bilateral CVA tenderness. Will obtain CBC to evaluate for leukocytosis/ anemia, CMP and lipase to evaluate for abnormal electrolytes /abnormal renal function/ abnormal hepatic/biliary function, EKG and CT of the abdomen and pelvis and Urinalysis. Differential Diagnosis Differential Diagnoses: The differential diagnosis associated with the presentation includes (Nephrolithiasis, hydronephrosis, obstructive calculi, urinary tract infection, pyelonephritis, diverticulitis, appendicitis) Admission/Observation Consideration of admission/observation: Escalation of care including admission/observation considered (Admission to medicine service as per course) Consult Healthcare Provider Management of the patient was discussed with: Delivery Motorcycle Driver (Urology as per course) Lab Data MDM Lab Attestation statement: I reviewed the patient's lab results. (As per course narrative) 05/25/23 11:52 05/25/23 11:52 Labs: Lab Results 05/25/23 05/25/23 05/25/23 Range/Units 11:52 11:52 11:52 WBC 5.3 (4.8-10.8) X10*3/uL RBC 3.86 L (4.20-5.50) X10*6/uL Hgb 10.4 L (12.0-16.0) g/dl Hct 33.6 L (37.0-47.0) % MCV 87.0 (80.0-98.0) fL MCH 26.9 L (27.0-33.0) pg MCHC 31.0 (31.0-35.0) g/dl RDW 13.9 (11.0-16.0) % Plt Count 220 (160-400) X10*3/uL MPV 10.9 (9.4-12.3) fL Immature Gran % (Auto) 0.2 (0.0-0.4) % Neut % (Auto) 60.2 (45-73) % Lymph % (Auto) 19.1 L (20-40) % [place] % (Auto) 13.6 H (2-11) % Eos % (Auto) 6.0 H (0-4) % Baso % (Auto) 0.9 (0-2) % Lymph # (Auto) 1.0 L (1.2-4.9) X10*3/uL [place] # (Auto) 0.7 (0.1-1.2) X10*3/uL Eos # (Auto) 0.3 (0.0-0.4) X10*3/uL Baso # (Auto) 0.1 (0.0-0.2) X10*3/uL Abs Immat Gran (auto) 0.01 (0.00-0.03) X10*3/uL Absolute Neuts (auto) 3.2 (2.0-8.3) x10*3/uL Absolute Nucleated RBC 0.000 (0.0-0.012) X10*3/uL Nucleated RBC % (auto) 0.0 (0.0-0.2) /100WBC Sodium 139 (135-145) mmol/L Potassium 4.7 D (3.3-5.1) mmol/L Chloride 108 (96-108) mmol/L Carbon Dioxide 20 L (22-29) mmol/L Anion Gap 16 (12-20) BUN 43 H (9-16) mg/dL Creatinine 2.35 H (0.5-1.4) mg/dL Estim Creat Clear Calc 19.5 Estimated GFR 20 Random Glucose 130 H (60-115) mg/dL Calcium 10.0 (8.4-10.2) mg/dL Magnesium 2.8 H (1.6-2.6) mg/dL Total Bilirubin 0.3 (0.0-1.0) mg/dL Direct Bilirubin 0.1 (0.0-0.5) mg/dL AST 28 (5-31) U/L ALT 18 (0-31) U/L Alkaline Phosphatase 94 (39-117) U/L Total Protein 7.4 (6.5-8.0) g/dL Albumin 4.0 (3.5-5.0) g/dL Lipase 45 (8-78) U/L Urine Color Yellow Urine Appearance Clear Urine pH 6.0 (5.0-9.0) Ur Specific [place] 1.015 (1.005-1.025) Urine Protein Trace (Neg-Trace) mg/dL Urine Glucose (UA) Negative (Negative) mg/dL Urine Ketones Negative (Negative) mg/dL Urine Blood Trace H (Negative) Urine Nitrite Negative (Negative) Ur Leukocyte Esterase Small (1+) H (Negative) Urine RBC 11-20 H (0-2) /HPF Urine WBC 6-10 H (0-5) /HPF Ur Squamous Epith Cells 0-2 (0-2) /HPF Urine Bacteria None Seen (None Seen) Hyaline Casts 0-2 (0-2) /LPF Independent Interpretation I performed an independent interpretation of an: EKG Interpretation: Rate: 79 Rhythm:? Atrial fibrillation Normal QRS complex.?? ST T wave :??No ST elevation, no ST depression qTC: 444 prior studies:? April 2023 The study has been interpreted contemporaneously by me. Radiology Impression Discussion of test interpretation with radiology: I have reviewed the radiologist's reading. Radiologist Impression: CT/CT abdomen pelvis wo IV con IMPRESSION: 1.? Diffuse sigmoid and scattered rest of the colon diverticulosis without diverticulitis. 2.? Nonobstructive 9 mm radiopaque calculi lower pole left kidney. 3.? Right UPJ obstruction with a significantly distended right kidney pelvis. There is a likely vessel crossing the UPJ. Recommend CTA abdomen. 4.? Large Bosniak type II left renal cyst. 5.? Small umbilical hernia containing fat. 6.? Degenerative disc changes L5-S1 disc level with moderate spondylosis lower dorsal and upper lumbar spine. Independent Historian Clinical information obtained from an independent historian. History obtained from or confirmed by: Other (Certified Meeting Professional who confirms history) External Record Review External record reviewed: Outpatient record (Nephrology 03/05/2023, Urology 2022) Discharge Plan Discharge Clinical Impression: Acute kidney injury, UPJ obstruction, acquired, Obstruction, uropathy Patient Disposition: Admitted As Inpatient Interventions: Admission Worksheet (ED) Last Done: 05/26/23 00:31
[2023-05-25 12:06] LABS: MANUAL DIFF FLAG NO
[2023-05-25 12:13] LABS: Appearance Urine Clear; Color Urine Yellow; Glucose Urine UA Negative (Negative); Leukocyte Esterase Urine Small (1+) (Negative); Nitrite Urine Negative (Negative); Specific Gravity - Urine 1.015 (1.005-1.025); UMIC TRIGGER UACC YES; Urine Blood Trace (Negative); Urine Ketones Negative (Negative); Urine Protein Trace mg/dL (Neg-Trace)
[2023-05-25 12:15] LABS: Basophils Absolute Auto 0.1 X10*3/uL (0.0-0.2); Basophils Percent Auto 0.9 % (0-2); Eosinophils Absolute Auto 0.3 X10*3/uL (0.0-0.4); Hematocrit 33.6 % (37.0-47.0); Hemoglobin 10.4 g/dl (12.0-16.0); Imm Gran Abs Auto 0.01 X10*3/uL (0.00-0.03); Imm Gran Pct Auto 0.2 % (0.0-0.4); Lymphocytes Percent Auto 19.1 % (20-40); Mean Corpuscular Hemoglobin 26.9 pg (27.0-33.0); Mean Platelet Volume 10.9 fL (9.4-12.3); Monocytes Absolute Auto 0.7 X10*3/uL (0.1-1.2); Monocytes Percent Auto 13.6 % (2-11); Neutrophils Absolute Auto 3.2 x10*3/uL (2.0-8.3); Neutrophils Percent Auto 60.2 % (45-73); Platelet Count 220 X10*3/uL (160-400); Red Blood Count 3.86 X10*6/uL (4.20-5.50); Red Cell Distribution Width 13.9 % (11.0-16.0); White Blood Count 5.3 X10*3/uL (4.8-10.8)
[2023-05-25 12:16] LABS: Bacteria Urine None Seen (None Seen); Hyaline Casts Urine 0-2 /LPF (0-2); Squamous Epithelial Cell Urine 0-2 /HPF (0-2); UACC Culture Trigger YES
[2023-05-25 12:27] LABS: Alanine Aminotransferase 18 U/L (0-31); Alkaline Phosphatase 94 U/L (39-117); Anion Gap 16 (12-20); Aspartate Amino Transferase 28 U/L (5-31); Bilirubin Direct 0.1 mg/dL (0.0-0.5); Bilirubin Total 0.3 mg/dL (0.0-1.0); Blood Urea Nitrogen 43 mg/dL (9-16); Carbon Dioxide 20 mmol/L (22-29); Chloride 108 mmol/L (96-108); Creatinine Clr Calc Pharmacy 19.5; Estimated Glomerular Filt Rate 20; Glucose Random 130 mg/dL (60-115); Lipase 45 U/L (8-78); Magnesium 2.8 mg/dL (1.6-2.6); Potassium 4.7 mmol/L (3.3-5.1); Sodium 139 mmol/L (135-145); Total Protein 7.4 g/dL (6.5-8.0)
--- NOTE | 2023-05-25 17:11 | ECG_ITS ---
Test Reason : CHECK DC,HYPERMAGNESEMIA Blood Pressure : / mmHG Vent. Rate : 079 BPM Atrial Rate : 000 BPM P-R Int : 000 ms QRS Dur : 078 ms QT Int : 388 ms P-R-T Axes : 000 027 088 degrees QTc Int : 444 ms Atrial fibrillation with premature ventricular or aberrantly conducted complexes Septal infarct , age undetermined Abnormal ECG When compared with ECG of 09-APR-2023 23:38, T wave inversion no longer evident in Inferior leads T wave inversion no longer evident in Lateral leads Referred By: Nona Severino Electronically Signed By:Colby Cadena
[2023-05-25] MEDS: 0.9 % Sodium Chloride 500 ML 999 ML IV (17:37)
[2023-05-25] MEDS: ondansetron HCL 4 MG/2 ML VIAL IVPUSH (17:39)
[2023-05-25] MEDS: Morphine Sulfate 4 MG/ML CARTRIDGE IVPUSH (17:39)
[2023-05-25 17:40] VITALS: BP 172/80; PULSE 82; RESP 16; TEMP 36.7; O2SAT 100
--- NOTE | 2023-05-25 21:05 | PM.IMHP ---
History of Present Illness Date of Service: 05/25/23 Attending physician on admission: Balbir Abraham Chief Complaint: abd pain, nausea 78 year old female with hisotry of noninsulin dependent type 2 diabetes, htn, asthma/copd overlap, chronic atrial fibrillation anticoagulated with eliquis, history etoh abuse, CHF, history NSTEMI, and history nephrolithiasis?presents to the ED with her daughter and grandson for for evaluation of bilateral abdominal pain ongoing for 2 weeks but has been gradually worsening. She reports pain primarily on the sides bilaterally that is now constant with associated nausea. She did have an episode of vomiting last week but no recurrent vomiting. She denies any radiation of the pain. Denies any fevers, chills, dysuria, hematuria, increased urinary frequency, retention, urgency, or flank pain. On arrival, vital stable though slightly hypertensive to 172/80 likely secondary to pain. Stable normocytic anemia with H/H 10.4/33.6 %. Creatinine 2.35, baseline 0.83. BUN 43. Urinalysis significant for 1+ leukocytes, negative nitrites, trace blood, positive urinary sediment but negative bacteria. CT abdomen/pelvis shows diffuse sigmoid and scattered rest of colon diverticulosis. There is nonobstructive 9 mm radiopaque calculi in the lower pole of the left kidney. There is right UPJ obstruction with a significantly distended right kidney pelvis and a probable vessel crossing the UPJ, CTA recommended. There is a large Bosniak type 2 left renal cyst among other findings. ED discussed case with urology recommending full catheter insertion and admission to medicine. In the ED, she was gently hydrated and treated with ondansetron IV morphine. Review of Systems Review of Systems: General: No fevers, malaise, unintentional weight loss Cardiovascular: No chest pain, palpitations, or leg edema Respiratory: No shortness of breath, wheezing, cough GI: +abd pain, +nausea. No vomiting, diarrhea, constipation, melena, hematochezia : No dysuria, hematuria, increased urinary frequency, decreased urinary output MSK: No myalgia, back pain Neuro: No headaches, weakness, paresthesias Skin: No rashes or lesions [facility] Medical History (Updated 05/25/23 @ 21:51 by CLAIRE Perez) Alcohol abuse Anxiety Arthritis Asthma Asymmetrical thyroid Atrial fibrillation CHF (congestive heart failure) COPD (chronic obstructive pulmonary disease) COVID-19 Diabetes Gout Hypertension Knee arthropathy Nephrolithiasis NSTEMI (non-ST elevated myocardial infarction) Obstruction, uropathy Osteoarthritis Renal cyst, acquired, left Thrombosed external hemorrhoid Surgical History History of total knee arthroplasty Hx of colonoscopy Social History Household Members: None Household Members Other:: DAUGHTER Housing: Apartment Housing Other:: low income housing Do you presently have visiting nurse or other home services: No Unable to assess alcohol history related to: Unknown Alcohol intake: unknown Patient Tobacco Use Status: Never used Tobacco Smoked in Last 30 Days: No e-Cigarette/Vaping Use: Never Used Second Hand Smoke Exposure: No Use of substances other than those prescribed or required for medical reasons: No Advance Directives: Yes Advance Directives on File: Yes Advance Directives Date on File: 09/07/22 service: No Current occupational status: disabled Meds Allergies Allergy/AdvReac Type Severity Reaction Status Date / Time montelukast [Singulair] Allergy Unknown itching/marysol Verified 05/25/23 11:27 h From Singulair Allergy Intermediate RASH Uncoded 05/25/23 11:27 Active Medications: Current Medications Pharmacy Consult (Consult Rx Perform Med Rec) 1 each MISCELLANE ONCE PRN PRN Reason: Consult order Home Medications Medication Instructions Recorded Confirmed Last Taken Type albuterol sulfate 2.5 mg/3 mL 1 amp inhalation QID PRN Wheezing 09/06/22 05/25/23 12/19/22 History (0.083 %) solution for nebulization blood sugar diagnostic (OneTouch 09/06/22 04/27/23 Unknown History Verio test strips) blood-glucose meter (OneTouch 09/06/22 04/27/23 Unknown History Verio Flex Meter) fluticasone 250 mcg-salmeterol 50 1 puff inhalation BID 09/06/22 05/25/23 12/19/22 History mcg/dose blistr powdr for inhalation (Advair Diskus) lancets 33 gauge (OneTouch Delica 09/06/22 04/27/23 Unknown History Plus Lancet) albuterol sulfate 90 mcg/actuation 2 puff inhalation Q4-6H PRN 10/23/22 05/25/23 Unknown History aerosol inhaler (Ventolin HFA) Wheezing atorvastatin 80 mg tablet 80 mg PO DAILY 10/23/22 05/25/23 12/19/22 History metformin 850 mg tablet 850 mg PO BIDWM 10/23/22 05/25/23 12/18/22 History pyridoxine (vitamin B6) 100 mg 100 mg PO DAILY 03/02/23 05/25/23 Unknown History tablet ferrous gluconate 324 mg (37.5 mg 324 mg PO Q2D 04/09/23 05/25/23 Unknown History iron) tablet tramadol 50 mg tablet 50 mg PO Q8H PRN Pain 04/09/23 05/25/23 Unknown History clopidogrel 75 mg tablet 75 mg PO DAILY 04/27/23 05/25/23 Unknown History metoprolol succinate 50 mg 50 mg PO DAILY 04/27/23 05/25/23 Unknown History tablet,extended release 24 hr (Toprol XL) acetaminophen 325 mg tablet 650 mg PO Q6H PRN mild pain 05/25/23 05/25/23 Unknown History alendronate 70 mg tablet 70 mg PO REESE@0900 05/25/23 05/25/23 Unknown History cetirizine 10 mg tablet 10 mg PO DAILY 05/25/23 05/25/23 Unknown History docusate sodium 100 mg capsule 100 mg PO BID 05/25/23 05/25/23 Unknown History fluticasone propionate 50 1 spray intranasal DAILY PRN 05/25/23 05/25/23 Unknown History mcg/actuation nasal Allergy Symptoms spray,suspension furosemide 20 mg tablet 20 mg PO DAILY 05/25/23 05/25/23 Unknown History lidocaine 5 % topical patch 1 patch topical DAILY PRN Pain 05/25/23 05/25/23 Unknown History (Scale Score 1-3) polyethylene glycol 3350 17 gram 17 g PO DAILY 05/25/23 05/25/23 Unknown History oral powder packet sennosides 8.6 mg tablet (senna) 1 tab PO BID 05/25/23 05/25/23 Unknown History simethicone 125 mg capsule (Gas 125 mg PO QID PRN Indigestion 05/25/23 05/25/23 Unknown History Relief Extra Strength) Physical Exam Vital Signs and Narrative: Vital Signs: Last Vital Signs Temp 98.0 F 05/25/23 17:40 Pulse 82 05/25/23 17:40 Resp 16 05/25/23 17:40 BP 172/80 H 05/25/23 17:40 Pulse Ox 100 05/25/23 17:40 O2 Del Method Room Air 05/25/23 17:40 BMI result Body Mass Index 33.8 Constitutional - Awake and Alert, No apparent distress Eyes - PERRLA, EOMI Cardiovascular - S1S2, RRR, 1+ ble edema Respiratory - Normal lung expansion, Normal respiratory effort, No respiratory distress, CTA bilaterally Gastrointestinal -mild diffuse ttp, ND; +BS; No rebound or guarding - right sided CVA tenderness Extremities - no calf tenderness bilaterally, no swelling Skin - Warm/Dry Neurological - Alert & oriented x3 Psychological - Appropriate affect Results Labs 05/25/23 11:52 05/25/23 11:52 Labs: Laboratory Results - last 24 hr 05/25/23 05/25/23 05/25/23 11:52 11:52 11:52 MCV 87.0 MCH 26.9 L MCHC 31.0 RDW 13.9 Plt Count 220 MPV 10.9 Immature Gran % (Auto) 0.2 Neut % (Auto) 60.2 Lymph % (Auto) 19.1 L [place] % (Auto) 13.6 H Eos % (Auto) 6.0 H Baso % (Auto) 0.9 Lymph # (Auto) 1.0 L [place] # (Auto) 0.7 Eos # (Auto) 0.3 Baso # (Auto) 0.1 Abs Immat Gran (auto) 0.01 Absolute Neuts (auto) 3.2 Absolute Nucleated RBC 0.000 Nucleated RBC % (auto) 0.0 Anion Gap 16 Estim Creat Clear Calc 19.5 Estimated GFR 20 Random Glucose 130 H Calcium 10.0 Magnesium 2.8 H Total Bilirubin 0.3 Direct Bilirubin 0.1 AST 28 ALT 18 Alkaline Phosphatase 94 Total Protein 7.4 Albumin 4.0 Lipase 45 Urine Color Yellow Urine Appearance Clear Urine pH 6.0 Ur Specific Confluence 1.015 Urine Protein Trace Urine Glucose (UA) Negative Urine Ketones Negative Urine Blood Trace H Urine Nitrite Negative Ur Leukocyte Esterase Small (1+) H Urine RBC 11-20 H Urine WBC 6-10 H Ur Squamous Epith Cells 0-2 Urine Bacteria None Seen Hyaline Casts 0-2 Imaging Radiologist's Impressions: Impressions Abdomen/Pelvis CT 05/25/23 17:51 IMPRESSION: 1. Diffuse sigmoid and scattered rest of the colon diverticulosis without diverticulitis. 2. Nonobstructive 9 mm radiopaque calculi lower pole left kidney. 3. Right UPJ obstruction with a significantly distended right kidney pelvis. There is a likely vessel crossing the UPJ. Recommend CTA abdomen. 4. Large Bosniak type II left renal cyst. 5. Small umbilical hernia containing fat. 6. Degenerative disc changes L5-S1 disc level with moderate spondylosis lower dorsal and upper lumbar spine. Fleischner guidelines were followed. Assessment and Plan (1) UPJ obstruction, acquired: Status: Acute (2) Acute kidney failure: Status: Acute (3) Obstructive uropathy: Status: Acute Plan 78 year old female with hisotry of noninsulin dependent type 2 diabetes, htn, asthma/copd overlap, chronic atrial fibrillation anticoagulated with eliquis, history etoh abuse, CHF, history NSTEMI, and history nephrolithiasis?admitted for further management of obstructive uropathy with acute kidney injury. #Acute kidney injruy due to obstructive uropathy of right UPJ -UA without evidence of infection -CT with finding of possible vessel crossing UPJ. Consider CTA if renal function improves -Johnson catheter -Urology consult -Monitor I&O -NPO after midnight -Avoid nephrotoxins -Follow BMP # chronic atrial fibrillation-rate controlled -hold Eliquis in case of urological procedure tomorrow, resume as appropriate -continue rate control medications #HFpEF- no acute exacerbation -continue PO lasix #Chronic normocytic anemia -H/H baseline, above transfusion threshold #Asthma/COPD overlap -no acute exacerbation -continue home inhalers #HTN -Hold losartan in setting ORION -Continue addl home meds DVT prophylaxis- SCPs. eliquis currently on hold resume as appropriate Full code Patient requires inpatient stay of at least 2 midnights for management of obstructive uropathy requiring expert consultation and probable surgical intervention Time Spent With Patient Time: Total time managing care of this patient today ____ minutes. Quality Stroke Does the patient have a stroke diagnosis?: No VTE Prior VTE?: No VTE Risk Level:: Medical - moderate - high VTE Device Contraindication: N/A - Device Ordered VTE Drug Contraindication: Treatment Not Indicated
--- NOTE | 2023-05-25 22:20 | PHA.MEDREC ---
Pharmacy Consult ? Medication Reconciliation Pharmacy has completed the medication reconciliation. patients family member had list.
[2023-05-25 22:30] VITALS: BP 156/71; PULSE 77; RESP 16; TEMP 36.6; O2SAT 96
--- NOTE | 2023-05-25 23:45 | PC.NURSE ---
Pt A&O to self and situation, reports 9/10 constant upper ABD pain. Pt ambulated to BR with steady gait, daughter at bedside. 16F cath placed, intact, draining clear yellow urine, Pt tolerated well.
[2023-05-26] VITALS: BP 158/82; PULSE 88; RESP 18; TEMP 36.2; O2SAT 95
[2023-05-26] MEDS: 0.9 % Sodium Chloride Flush 3 ML SYRINGE IVFLUSH ×4 (00:28→20:32)
[2023-05-26 00:30] LABS: Glucose, Whole Blood 131 mg/dL (60-115)
--- NOTE | 2023-05-26 00:30 | PC.NURSE ---
Report given to Giovanna TABARES, Pt will be transported to [facility] by multimedia technician, Pt aware of plan.
[2023-05-26] MEDS: Morphine Sulfate 4 MG/ML CARTRIDGE 2 MG IVPUSH (01:07)
[2023-05-26 03:00] VITALS: BMI 34.3
[2023-05-26 06:03] LABS: MANUAL DIFF FLAG NO
[2023-05-26 06:21] LABS: Basophils Absolute Auto 0.1 X10*3/uL (0.0-0.2); Basophils Percent Auto 0.9 % (0-2); Eosinophils Absolute Auto 0.3 X10*3/uL (0.0-0.4); Eosinophils Percent Auto 4.8 % (0-4); Hematocrit 32.8 % (37.0-47.0); Imm Gran Abs Auto 0.01 X10*3/uL (0.00-0.03); Imm Gran Pct Auto 0.2 % (0.0-0.4); Lymphocytes Absolute Auto 0.9 X10*3/uL (1.2-4.9); Mean Corpuscular HGB Conc 30.5 g/dl (31.0-35.0); Mean Corpuscular Hemoglobin 26.5 pg (27.0-33.0); Mean Platelet Volume 10.9 fL (9.4-12.3); Monocytes Absolute Auto 0.7 X10*3/uL (0.1-1.2); Monocytes Percent Auto 13.3 % (2-11); Neutrophils Absolute Auto 3.5 x10*3/uL (2.0-8.3); Neutrophils Percent Auto 64.8 % (45-73); Platelet Count 203 X10*3/uL (160-400); Red Blood Count 3.77 X10*6/uL (4.20-5.50); Red Cell Distribution Width 13.9 % (11.0-16.0); White Blood Count 5.4 X10*3/uL (4.8-10.8)
[2023-05-26 06:22] LABS: Anion Gap 13 (12-20); Blood Urea Nitrogen 39 mg/dL (9-16); Calcium 9.4 mg/dL (8.4-10.2); Carbon Dioxide 22 mmol/L (22-29); Chloride 110 mmol/L (96-108); Creatinine Clr Calc Pharmacy 23.9; Estimated Glomerular Filt Rate 25; Glucose Random 111 mg/dL (60-115); Potassium 4.4 mmol/L (3.3-5.1); Sodium 141 mmol/L (135-145)
[2023-05-26 07:22] VITALS: BP 165/86; PULSE 99; RESP 18; TEMP 36.3; O2SAT 94
[2023-05-26 07:29] LABS: Glucose, Whole Blood 118 mg/dL (60-115)
[2023-05-26] MEDS: Sennosides 8.6 MG TABLET PO ×2 (07:43→20:29)
[2023-05-26] MEDS: Ferrous Sulfate 324 MG TABLET.DR PO (07:44)
[2023-05-26] MEDS: Pyridoxine HCl (Vitamin B6) 50 MG TABLET 100 MG PO (07:44)
[2023-05-26] MEDS: Metoprolol Succinate ER 50 MG TAB.ER.24H PO (07:44)
[2023-05-26] MEDS: Atorvastatin Calcium 80 MG TABLET PO (07:45)
[2023-05-26] MEDS: Docusate Sodium 100 MG CAPSULE PO ×2 (07:45→20:29)
[2023-05-26] MEDS: Famotidine 20 MG TABLET PO ×2 (07:45→16:43)
[2023-05-26] MEDS: Furosemide 40 MG TABLET PO (07:45)
[2023-05-26] MEDS: Loratadine 10 MG TABLET PO (07:45)
[2023-05-26] MEDS: polyethylene glycoL 3350 17 GM POWD.PACK PO (07:46)
[2023-05-26] MEDS: oxyCODONE HCl Immed Release 5 MG TABLET PO ×2 (07:51→23:17)
[2023-05-26] MEDS: Mirabegron 50 MG TAB.ER.24H PO (08:48)
--- NOTE | 2023-05-26 10:25 | HO.PM.IMPN ---
Subjective Subjective Date of Service: 05/26/23 Review of Systems Follow up abd pain, obstructive uropathy Pain is better will start diet Physical Exam Vital Signs: Vital Signs: Last Vital Signs Temp 97.3 F 05/26/23 07:22 Pulse 99 05/26/23 07:22 Resp 18 05/26/23 07:22 BP 165/86 H 05/26/23 07:22 Pulse Ox 94 05/26/23 07:22 O2 Del Method Room Air 05/26/23 07:22 BMI result Body Mass Index 34.3 Appearing in no acute distress lung sounds are clear to auscultation heart regular rate rhythm, clear S1, S2 positive bowel sounds, abdomen is soft, nontender neuro patient is alert x3, no focal deficits Objective Data Active Medications Acetaminophen (Acetaminophen 325 Mg Tablet) 650 mg PO Q6H PRN PRN Reason: Pain, Mild (Pain Scale 1-3) Albuterol Sulfate (Albuterol Sulfate (0.083%) 2.5 Mg/3 Ml Vial.Neb) 2.5 mg INHALE QID PRN PRN Reason: Wheezing Albuterol Sulfate (Albuterol Sulfate 90 Mcg 8 Gm Inhaler) 2 puff INHALE Q4H PRN PRN Reason: Wheezing Atorvastatin Calcium (Atorvastatin Calcium 80 Mg Tablet) 80 mg PO DAILY [facility] Last Admin: 05/26/23 07:45 Dose: 80 mg Documented By: JAYY Clopidogrel Bisulfate (Clopidogrel Bisulfate 75 Mg Tablet) 75 mg PO DAILY [facility] Dextrose (Dextrose 50 % 25 Gm/50 Ml Syringe) 25 gm IVPUSH Q15M PRN; Protocol PRN Reason: per Hypoglycemia Standing Ord. Docusate Sodium (Docusate Sodium 100 Mg Capsule) 100 mg PO DAILY PRN PRN Reason: Constipation Docusate Sodium (Docusate Sodium 100 Mg Capsule) 100 mg PO BID [facility] Last Admin: 05/26/23 07:45 Dose: 100 mg Documented By: JAYY Famotidine (Famotidine 20 Mg Tablet) 20 mg PO BID@0630,1630 [facility] Last Admin: 05/26/23 07:45 Dose: 20 mg Documented By: JAYY Ferrous Sulfate (Ferrous Sulfate 324 Mg Tablet.Dr) 324 mg PO Q48H [facility] Last Admin: 05/26/23 07:44 Dose: 324 mg Documented By: JAYY Fluticasone Propionate (Fluticasone Propionate Nasal 16 Gm [place]) 1 spray NOSTRIL-B DAILY PRN PRN Reason: Allergy Symptoms Fluticasone/Vilanterol (Fluticasone/Vilanterol 100/25 Blst.W.Dev) 1 puff INHALE RDAILY [facility] Last Admin: 05/26/23 08:17 Dose: Not Given Documented By: ROMY Non-Admin Reason: Med Not Available Furosemide (Furosemide 40 Mg Tablet) 40 mg PO DAILY [facility]; Protocol Last Admin: 05/26/23 07:45 Dose: 40 mg Documented By: JAYY Glucose (Glucose Gel 15 Gm Gel..Gram.) 15 gm PO Q15M PRN; Protocol PRN Reason: per Hypoglycemia Standing Ord. Insulin Human Lispro (Insulin Lispro 100 Unit/Ml 3 Ml Vial) 0 unit SUBCUT QIDACHS [facility]; Protocol Last Admin: 05/26/23 07:31 Dose: Not Given Documented By: JAYY Non-Admin Reason: No Insulin Coverage Lidocaine (Lidocaine 4 % Patch Adh..Patch) 1 patch TRANSDERMA DAILY PRN PRN Reason: Pain (Scale Score 1-3) Loratadine (Loratadine 10 Mg Tablet) 10 mg PO DAILY [facility] Last Admin: 05/26/23 07:45 Dose: 10 mg Documented By: JAYY Metoprolol Succinate (Metoprolol Succinate Er 50 Mg Tab.Er.24h) 50 mg PO DAILY [facility]; Protocol Last Admin: 05/26/23 07:44 Dose: 50 mg Documented By: JAYY Mirabegron (Mirabegron 50 Mg Tab.Er.24h) 50 mg PO DAILY [facility] Last Admin: 05/26/23 08:48 Dose: 50 mg Documented By: JAYY Morphine Sulfate (Morphine Sulfate 4 Mg/Ml Cartridge) 2 mg IVPUSH Q4H PRN; Protocol PRN Reason: Pain, Severe (Pain Scale 7-10) Last Admin: 05/26/23 01:07 Dose: 2 mg Documented By: CLARA Ondansetron HCl (Ondansetron Hcl 4 Mg/2 Ml Vial) 4 mg IVPUSH Q8H PRN PRN Reason: Nausea and Vomiting Oxycodone HCl (Oxycodone Hcl Immed Release 5 Mg Tablet) 5 mg PO Q6H PRN PRN Reason: Pain, Moderate(Pain Scale 4-6) Last Admin: 05/26/23 07:51 Dose: 5 mg Documented By: JAYY Pharmacy Consult (Consult Rx Perform Med Rec) 1 each MISCELLANE ONCE PRN PRN Reason: Consult order Polyethylene Glycol (Polyethylene Glycol 3350 17 Gm Powd.Pack) 17 gm PO DAILY [facility] Last Admin: 05/26/23 07:46 Dose: 17 gm Documented By: JAYY Pyridoxine HCl (Pyridoxine Hcl (Vitamin B6) 50 Mg Tablet) 100 mg PO DAILY [facility] Last Admin: 05/26/23 07:44 Dose: 100 mg Documented By: JAYY Senna (Sennosides 8.6 Mg Tablet) 8.6 mg PO BID [facility] Last Admin: 05/26/23 07:43 Dose: 8.6 mg Documented By: JAYY Simethicone (Simethicone 80 Mg Tab.Chew) 160 mg PO QID PRN PRN Reason: Indigestion Sodium Chloride (0.9 % Sodium Chloride Flush 3 Ml Syringe) 3 ml IVFLUSH QSHIFT [facility] Last Admin: 05/26/23 09:47 Dose: 3 ml Documented By: JAYY Labs 05/26/23 05:05 05/26/23 05:05 Labs: Laboratory Results - last 24 hr 05/25/23 05/25/23 05/25/23 11:52 11:52 11:52 MCV 87.0 MCH 26.9 L MCHC 31.0 RDW 13.9 Plt Count 220 MPV 10.9 Immature Gran % (Auto) 0.2 Neut % (Auto) 60.2 Lymph % (Auto) 19.1 L Mccone % (Auto) 13.6 H Eos % (Auto) 6.0 H Baso % (Auto) 0.9 Lymph # (Auto) 1.0 L [place] # (Auto) 0.7 Eos # (Auto) 0.3 Baso # (Auto) 0.1 Abs Immat Gran (auto) 0.01 Absolute Neuts (auto) 3.2 Absolute Nucleated RBC 0.000 Nucleated RBC % (auto) 0.0 Anion Gap 16 Estim Creat Clear Calc 19.5 Estimated GFR 20 POC Glucose Random Glucose 130 H Calcium 10.0 Magnesium 2.8 H Total Bilirubin 0.3 Direct Bilirubin 0.1 AST 28 ALT 18 Alkaline Phosphatase 94 Total Protein 7.4 Albumin 4.0 Lipase 45 Urine Color Yellow Urine Appearance Clear Urine pH 6.0 Ur Specific [place] 1.015 Urine Protein Trace Urine Glucose (UA) Negative Urine Ketones Negative Urine Blood Trace H Urine Nitrite Negative Ur Leukocyte Esterase Small (1+) H Urine RBC 11-20 H Urine WBC 6-10 H Ur Squamous Epith Cells 0-2 Urine Bacteria None Seen Hyaline Casts 0-2 05/26/23 05/26/23 05/26/23 00:27 05:05 05:05 MCV 87.0 MCH 26.5 L MCHC 30.5 L RDW 13.9 Plt Count 203 MPV 10.9 Immature Gran % (Auto) 0.2 Neut % (Auto) 64.8 Lymph % (Auto) 16.0 L Mccone % (Auto) 13.3 H Eos % (Auto) 4.8 H Baso % (Auto) 0.9 Lymph # (Auto) 0.9 L Mccone # (Auto) 0.7 Eos # (Auto) 0.3 Baso # (Auto) 0.1 Abs Immat Gran (auto) 0.01 Absolute Neuts (auto) 3.5 Absolute Nucleated RBC 0.000 Nucleated RBC % (auto) 0.0 Anion Gap 13 Estim Creat Clear Calc 23.9 Estimated GFR 25 POC Glucose 131 H Random Glucose 111 Calcium 9.4 Magnesium Total Bilirubin Direct Bilirubin AST ALT Alkaline Phosphatase Total Protein Albumin Lipase Urine Color Urine Appearance Urine pH Ur Specific [place] Urine Protein Urine Glucose (UA) Urine Ketones Urine Blood Urine Nitrite Ur Leukocyte Esterase Urine RBC Urine WBC Ur Squamous Epith Cells Urine Bacteria Hyaline Casts 05/26/23 07:21 MCV MCH MCHC RDW Plt Count MPV Immature Gran % (Auto) Neut % (Auto) Lymph % (Auto) Mccone % (Auto) Eos % (Auto) Baso % (Auto) Lymph # (Auto) Mccone # (Auto) Eos # (Auto) Baso # (Auto) Abs Immat Gran (auto) Absolute Neuts (auto) Absolute Nucleated RBC Nucleated RBC % (auto) Anion Gap Estim Creat Clear Calc Estimated GFR POC Glucose 118 H Random Glucose Calcium Magnesium Total Bilirubin Direct Bilirubin AST ALT Alkaline Phosphatase Total Protein Albumin Lipase Urine Color Urine Appearance Urine pH Ur Specific [place] Urine Protein Urine Glucose (UA) Urine Ketones Urine Blood Urine Nitrite Ur Leukocyte Esterase Urine RBC Urine WBC Ur Squamous Epith Cells Urine Bacteria Hyaline Casts Assessment and Plan (1) Obstructive uropathy: Status: Acute Plan 78 year old female with history of noninsulin dependent type 2 diabetes, htn, asthma/copd overlap, chronic atrial fibrillation anticoagulated with eliquis, history etoh abuse, CHF, history NSTEMI, and history nephrolithiasis?admitted for further management of obstructive uropathy with acute kidney injury. Acute kidney injury due to obstructive uropathy of right UPJ UA without evidence of infection CT with finding of possible vessel crossing UPJ. Johnson placed Urology consult>rec repeat ct in am to assess for improvement in hydro Chronic atrial fibrillation-rate controlled Hold eliquis until after repeat CT to determine if any procedure will be done in next 24 hours continue rate control medications HFpEF no acute exacerbation continue PO lasix Chronic normocytic anemia H/H baseline, above transfusion threshold Asthma/COPD overlap no acute exacerbation continue home inhalers HTN Hold losartan in setting ORION Continue addl home meds DVT prophylaxis- SCPs. eliquis currently on hold resume as appropriate Attending Dr. Higginbotham Full code continued hospital stay for management of obstructive uropathy requiring expert consultation and probable surgical intervention Time Spent With Patient Time: Total time managing care of this patient today ____ minutes. Quality Stroke Does the patient have a stroke diagnosis?: No VTE Prior VTE?: No VTE Risk Level:: Medical - moderate - high VTE Device Contraindication: N/A - Device Ordered VTE Drug Contraindication: Treatment Not Indicated
[2023-05-26] MEDS: Clopidogrel Bisulfate 75 MG TABLET PO (11:02)
--- NOTE | 2023-05-26 11:26 | MHC.CM.PN ---
pt lives with dgter who will transport pt home pt had no previous servceis
[2023-05-26 11:34] LABS: Glucose, Whole Blood 117 mg/dL (60-115)
[2023-05-26 15:31] VITALS: BP 139/75; PULSE 77; RESP 20; TEMP 36.6; O2SAT 95
[2023-05-26 16:14] LABS: Glucose, Whole Blood 159 mg/dL (60-115)
[2023-05-26] MEDS: Insulin Lispro 100 UNIT/ML 3 ML VIAL SUBCUT (16:43)
[2023-05-26] MEDS: Albuterol Sulfate (0.083%) 2.5 MG/3 ML VIAL.NEB INHALE (17:48)
[2023-05-26 17:52] VITALS: PULSE 77; RESP 20; O2SAT 96
[2023-05-26 20:20] LABS: Glucose, Whole Blood 126 mg/dL (60-115)
[2023-05-26 20:25] VITALS: BP 151/76; PULSE 77; RESP 20; TEMP 36.6; O2SAT 96
[2023-05-26] MEDS: Acetaminophen 325 MG TABLET 650 MG PO (20:31)
[2023-05-26] MEDS: diphenhydrAMINE HCL 25 MG CAPSULE 50 MG PO (23:28)
[2023-05-27 04:00] VITALS: BP 165/80; PULSE 96; RESP 19; TEMP 36.6; O2SAT 95
[2023-05-27] MEDS: Morphine Sulfate 4 MG/ML CARTRIDGE 2 MG IVPUSH (04:03)
[2023-05-27] MEDS: Famotidine 20 MG TABLET PO ×2 (04:04→16:46)
[2023-05-27 05:47] LABS: Anion Gap 12 (12-20); Blood Urea Nitrogen 43 mg/dL (9-16); Calcium 9.5 mg/dL (8.4-10.2); Carbon Dioxide 26 mmol/L (22-29); Chloride 105 mmol/L (96-108); Creatinine Clr Calc Pharmacy 23.1; Estimated Glomerular Filt Rate 24; Glucose Random 144 mg/dL (60-115); Potassium 4.4 mmol/L (3.3-5.1); Sodium 139 mmol/L (135-145)
[2023-05-27 07:11] VITALS: BP 171/86; PULSE 71; RESP 18; TEMP 36.7; O2SAT 94
[2023-05-27 07:36] LABS: Glucose, Whole Blood 136 mg/dL (60-115)
[2023-05-27] MEDS: Mirabegron 50 MG TAB.ER.24H PO (08:19)
[2023-05-27] MEDS: Sennosides 8.6 MG TABLET PO ×2 (08:19→20:50)
[2023-05-27] MEDS: oxyCODONE HCl Immed Release 5 MG TABLET PO ×2 (08:19→22:34)
[2023-05-27] MEDS: Loratadine 10 MG TABLET PO (08:20)
[2023-05-27] MEDS: Pyridoxine HCl (Vitamin B6) 50 MG TABLET 100 MG PO (08:20)
[2023-05-27] MEDS: Metoprolol Succinate ER 50 MG TAB.ER.24H PO (08:20)
[2023-05-27] MEDS: Atorvastatin Calcium 80 MG TABLET PO (08:21)
[2023-05-27] MEDS: polyethylene glycoL 3350 17 GM POWD.PACK PO (08:21)
[2023-05-27] MEDS: Clopidogrel Bisulfate 75 MG TABLET PO (08:21)
[2023-05-27] MEDS: 0.9 % Sodium Chloride Flush 3 ML SYRINGE IVFLUSH ×2 (08:21→15:06)
[2023-05-27] MEDS: Docusate Sodium 100 MG CAPSULE PO ×2 (08:21→20:50)
[2023-05-27 11:28] LABS: Glucose, Whole Blood 207 mg/dL (60-115)
[2023-05-27] MEDS: Insulin Lispro 100 UNIT/ML 3 ML VIAL SUBCUT ×2 (11:56→20:49)
--- NOTE | 2023-05-27 13:28 | MHC.CM.PN ---
per rounds pt to have a repeat cat scan?needing a stent no anticapated d at this time
--- NOTE | 2023-05-27 15:02 | P.PNIM_ITS ---
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 some pain on left side controlled Review of Systems Review of Systems: Yes all other systems are reviewed and are negative Constitutional Constitutional: Denies chills and Denies fever(s) ENT Ears, Nose, Mouth, and Throat: Denies dizziness Cardiovascular Cardiovascular: Denies chest pain, Denies palpitations and Denies dyspnea Respiratory Respiratory: Denies cough and Denies dyspnea Gastrointestinal Gastrointestinal: Denies nausea and Denies vomiting Neurologic Neurologic: Denies dizziness Endocrine Endocrine: Denies palpitations Physical Exam Vital Signs: Vital Signs: Last Vital Signs Temp 98.1 F 05/27/23 07:11 Pulse 71 05/27/23 07:11 Resp 18 05/27/23 07:11 BP 171/86 H 05/27/23 07:11 Pulse Ox 94 05/27/23 07:11 O2 Del Method Room Air 05/27/23 07:11 BMI result Body Mass Index 34.3 Const: General: cooperative, comfortable, no acute distress, alert and awake Nutritional Appearance: average body habitus Orientation/consciousness: patient oriented x3 Resp: Effort & Inspection: normal respiratory effort, no respiratory distress and no use of accessory muscles Auscultation: clear to auscultation bila terally Cardio: Rate: regular rate Heart sounds: S1 normal heart sound present and S2 normal heart sound present GI: Inspection: No distended Palpation (GI): Soft to palpation and nontender Neuro: General: patient oriented x3, moves all extremities and CN's II-XI intact bilaterally Extrem: General: Yes no pedal edema Objective Data Active Medications Acetaminophen (Acetaminophen 325 Mg Tablet) 650 mg PO Q6H PRN PRN Reason: Pain, Mild (Pain Scale 1-3) Last Admin: 05/26/23 20:31 Dose: 650 mg Documented By: ROCIO Albuterol Sulfate (Albuterol Sulfate (0.083%) 2.5 Mg/3 Ml Vial.Neb) 2.5 mg INHALE QID PRN PRN Reason: Wheezing Last Admin: 05/26/23 17:48 Dose: 2.5 mg Documented By: ROMY Albuterol Sulfate (Albuterol Sulfate 90 Mcg 8 Gm Inhaler) 2 puff INHALE Q4H PRN PRN Reason: Wheezing Atorvastatin Calcium (Atorvastatin Calcium 80 Mg Tablet) 80 mg PO DAILY [facility] Last Admin: 05/27/23 08:21 Dose: 80 mg Documented By: JAYY Clopidogrel Bisulfate (Clopidogrel Bisulfate 75 Mg Tablet) 75 mg PO DAILY [facility] Last Admin: 05/27/23 08:21 Dose: 75 mg Documented By: JAYY Dextrose (Dextrose 50 % 25 Gm/50 Ml Syringe) 25 gm IVPUSH Q15M PRN; Protocol PRN Reason: per Hypoglycemia Standing Ord. Docusate Sodium (Docusate Sodium 100 Mg Capsule) 100 mg PO DAILY PRN PRN Reason: Constipation Docusate Sodium (Docusate Sodium 100 Mg Capsule) 100 mg PO BID [facility] Last Admin: 05/27/23 08:21 Dose: 100 mg Documented By: JAYY Famotidine (Famotidine 20 Mg Tablet) 20 mg PO BID@0630,1630 [facility] Last Admin: 05/27/23 04:04 Dose: 20 mg Documented By: ROCIO Ferrous Sulfate (Ferrous Sulfate 324 Mg Tablet.Dr) 324 mg PO Q48H [facility] Last Admin: 05/26/23 07:44 Dose: 324 mg Documented By: JAYY Fluticasone Propionate (Fluticasone Propionate Nasal 16 Gm [place]) 1 spray NOSTRIL-B DAILY PRN PRN Reason: Allergy Symptoms Fluticasone/Vilanterol (Fluticasone/Vilanterol 100/25 Blst.W.Dev) 1 puff INHALE RDAILY [facility] Last Admin: 05/27/23 10:57 Dose: Not Given Documented By: FCO Non-Admin Reason: Med Not Available Furosemide (Furosemide 40 Mg Tablet) 40 mg PO DAILY [facility]; Protocol Last Admin: 05/26/23 07:45 Dose: 40 mg Documented By: JAYY Glucose (Glucose Gel 15 Gm Gel..Gram.) 15 gm PO Q15M PRN; Protocol PRN Reason: per Hypoglycemia Standing Ord. Insulin Human Lispro (Insulin Lispro 100 Unit/Ml 3 Ml Vial) 0 unit SUBCUT QIDACHS [facility]; Protocol Last Admin: 05/27/23 11:56 Dose: 4 unit Documented By: JAYY Lidocaine (Lidocaine 4 % Patch Adh..Patch) 1 patch TRANSDERMA DAILY PRN PRN Reason: Pain (Scale Score 1-3) Loratadine (Loratadine 10 Mg Tablet) 10 mg PO DAILY [facility] Last Admin: 05/27/23 08:20 Dose: 10 mg Documented By: JAYY Metoprolol Succinate (Metoprolol Succinate Er 50 Mg Tab.Er.24h) 50 mg PO DAILY [facility]; Protocol Last Admin: 05/27/23 08:20 Dose: 50 mg Documented By: JAYY Mirabegron (Mirabegron 50 Mg Tab.Er.24h) 50 mg PO DAILY [facility] Last Admin: 05/27/23 08:19 Dose: 50 mg Documented By: JAYY Morphine Sulfate (Morphine Sulfate 4 Mg/Ml Cartridge) 2 mg IVPUSH Q4H PRN; Protocol PRN Reason: Pain, Severe (Pain Scale 7-10) Last Admin: 05/27/23 04:03 Dose: 2 mg Documented By: ROCIO Ondansetron HCl (Ondansetron Hcl 4 Mg/2 Ml Vial) 4 mg IVPUSH Q8H PRN PRN Reason: Nausea and Vomiting Oxycodone HCl (Oxycodone Hcl Immed Release 5 Mg Tablet) 5 mg PO Q6H PRN PRN Reason: Pain, Moderate(Pain Scale 4-6) Last Admin: 05/27/23 08:19 Dose: 5 mg Documented By: JAYY Pharmacy Consult (Consult Rx Perform Med Rec) 1 each MISCELLANE ONCE PRN PRN Reason: Consult order Polyethylene Glycol (Polyethylene Glycol 3350 17 Gm Powd.Pack) 17 gm PO DAILY [facility] Last Admin: 05/27/23 08:21 Dose: 17 gm Documented By: JAYY Pyridoxine HCl (Pyridoxine Hcl (Vitamin B6) 50 Mg Tablet) 100 mg PO DAILY [facility] Last Admin: 05/27/23 08:20 Dose: 100 mg Documented By: JAYY Senna (Sennosides 8.6 Mg Tablet) 8.6 mg PO BID [facility] Last Admin: 05/27/23 08:19 Dose: 8.6 mg Documented By: JAYY Simethicone (Simethicone 80 Mg Tab.Chew) 160 mg PO QID PRN PRN Reason: Indigestion Sodium Chloride (0.9 % Sodium Chloride Flush 3 Ml Syringe) 3 ml IVFLUSH QSHIFT [facility] Last Admin: 05/27/23 08:21 Dose: 3 ml Documented By: JAYY Labs 05/26/23 05:05 05/27/23 05:02 Labs: Laboratory Results - last 24 hr 05/26/23 05/26/23 05/27/23 16:03 19:12 05:02 Anion Gap 12 Estim Creat Clear Calc 23.1 Estimated GFR 24 POC Glucose 159 H 126 H Random Glucose 144 H Calcium 9.5 05/27/23 05/27/23 07:09 11:10 Anion Gap Estim Creat Clear Calc Estimated GFR POC Glucose 136 H 207 H Random Glucose Calcium Microbiology Microbiology Results: Microbiology 05/25/23 Unknown Urine Culture - Final Urine clean catch - Urine holliday top Assessment and Plan (1) Obstructive uropathy: Status: Acute (2) Acute kidney failure: Status: Acute (3) UPJ obstruction, acquired: Status: Acute Plan 78 year old female with history of noninsulin dependent type 2 diabetes, htn, asthma/copd overlap, chronic atrial fibrillation anticoagulated with eliquis, history etoh abuse, CHF, history NSTEMI, and history nephrolithiasis?admitted for further management of obstructive uropathy with acute kidney injury. Acute kidney injury due to obstructive uropathy of right UPJ UA without evidence of infection CT with finding of possible vessel crossing UPJ but unable to have CT with contrast due to ORION Johnson placed repeat CT with persistent right hydro - plan for stent placement tomorrow per urology SCr with minimal improvement at 1.99. Baseline .8-1.1 hold losartan, lasix follow renal function Chronic atrial fibrillation-rate controlled Hold eliquis until after repeat CT to determine if any procedure will be done in next 24 hours continue rate control medications HFpEF no acute exacerbation hold po lasix for orion Chronic normocytic anemia H/H baseline, above transfusion threshold Asthma/COPD overlap no acute exacerbation continue home inhalers HTN Hold losartan in setting ORION Continue addl home meds DVT prophylaxis- SCPs. eliquis currently on hold resume as appropriate Attending Dr. Higginbotham Full code continued hospital stay for management of obstructive uropathy requiring expert consultation and stent placement Time Spent With Patient Time: Total time managing care of this patient today ____ minutes. Quality Stroke Does the patient have a stroke diagnosis?: No VTE Prior VTE?: No VTE Risk Level:: Medical - moderate - high VTE Device Contraindication: N/A - Device Ordered VTE Drug Contraindication: Treatment Not Indicated
[2023-05-27 16:00] VITALS: BP 159/86; PULSE 70; RESP 20; TEMP 36.6; O2SAT 95
[2023-05-27 16:43] LABS: Glucose, Whole Blood 130 mg/dL (60-115)
[2023-05-27 19:41] VITALS: BP 151/68; PULSE 92; RESP 18; TEMP 36.8; O2SAT 94
[2023-05-27 20:31] LABS: Glucose, Whole Blood 199 mg/dL (60-115)
[2023-05-27] MEDS: diphenhydrAMINE HCL 50 MG/ML VIAL IVPUSH (22:16)
--- NOTE | 2023-05-27 22:26 | PC.NURSE ---
Patient c/o itchyness in lower legs,no rash present,Dr. Abraham notified,Benadryl administered
[2023-05-28] VITALS (12 sets, daily range): BP systolic 138–181; BP diastolic 58–98; PULSE 70–98; RESP 13–20; TEMP 36.1–36.9; O2SAT 95–100
[2023-05-28] MEDS: 0.9 % Sodium Chloride Flush 3 ML SYRINGE IVFLUSH ×4 (00:07→23:27)
[2023-05-28 06:13] LABS: Anion Gap 14 (12-20); Blood Urea Nitrogen 39 mg/dL (9-16); Calcium 9.9 mg/dL (8.4-10.2); Carbon Dioxide 24 mmol/L (22-29); Chloride 106 mmol/L (96-108); Creatinine Clr Calc Pharmacy 20.8; Estimated Glomerular Filt Rate 21; Glucose Random 140 mg/dL (60-115); Potassium 4.8 mmol/L (3.3-5.1); Sodium 139 mmol/L (135-145)
[2023-05-28 07:30] LABS: Glucose, Whole Blood 132 mg/dL (60-115)
[2023-05-28] MEDS: Fluticasone/Vilanterol 100/25 BLST.W.DEV 1 PUFF INHALE (08:00)
[2023-05-28] MEDS: Pyridoxine HCl (Vitamin B6) 50 MG TABLET 100 MG PO (08:22)
[2023-05-28] MEDS: Ferrous Sulfate 324 MG TABLET.DR PO (08:23)
[2023-05-28] MEDS: Mirabegron 50 MG TAB.ER.24H PO (08:23)
[2023-05-28] MEDS: Metoprolol Succinate ER 50 MG TAB.ER.24H PO (08:23)
[2023-05-28] MEDS: Loratadine 10 MG TABLET PO (08:23)
[2023-05-28] MEDS: Docusate Sodium 100 MG CAPSULE PO ×2 (08:23→20:46)
[2023-05-28] MEDS: Famotidine 20 MG TABLET PO ×2 (08:24→18:33)
[2023-05-28] MEDS: Atorvastatin Calcium 80 MG TABLET PO (08:24)
[2023-05-28] MEDS: oxyCODONE HCl Immed Release 5 MG TABLET PO (08:30)
[2023-05-28 11:37] LABS: Glucose, Whole Blood 137 mg/dL (60-115)
--- NOTE | 2023-05-28 13:17 | PM.UROCN ---
History of Present Illness Consult details Consult date: 05/28/23 Narrative: Consulting complaint right hydronephrosis 78-year-old female Known to Urology Incomplete bladder emptying secondary to diabetes New persistent hydronephrosis right side Hydronephrosis did not respond to Johnson catheter Creatinine 2.2 Recommend cystoscopy, right retrograde, stent placement Review of Systems Constitutional: Constitutional: Reports as per HPI and Reports no additional constitutional complaints Cardiovascular: Cardiovascular: Reports as per HPI and Reports no additional cardiovascular complaints Respiratory: Respiratory: Reports as per HPI and Reports no additional respiratory complaints Gastrointestinal: Gastrointestinal: Reports as per HPI and Reports no additional gastrointestinal complaints Genitourinary: Genitourinary: Reports as per HPI Musculoskeletal: Musculoskeletal: Reports no additional musculoskeletal complaints and Reports as per HPI Neurologic: Reports system reviewed and no additional complaints, except as documented and Reports as per HPI [facility] Past Medical History Medical History (Updated 05/26/23 @ 02:01 by Nona Severino CNP) Alcohol abuse Anxiety Arthritis Asthma Asymmetrical thyroid Atrial fibrillation CHF (congestive heart failure) COPD (chronic obstructive pulmonary disease) COVID-19 Diabetes Gout Hypertension Knee arthropathy Nephrolithiasis NSTEMI (non-ST elevated myocardial infarction) Obstruction, uropathy Osteoarthritis Renal cyst, acquired, left Thrombosed external hemorrhoid Surgical History Surgical History History of total knee arthroplasty Hx of colonoscopy Social History Social History Household Members: Family Household Members Other:: DAUGHTER Housing: Apartment Housing Other:: low income housing Do you presently have visiting nurse or other home services: No (granddaughter is complaint evaluation supervisor) Unable to assess alcohol history related to: Unknown Alcohol intake: unknown Patient Tobacco Use Status: Never used Tobacco e-Cigarette/Vaping Use: Never Used Second Hand Smoke Exposure: No Advance Directives Date on File: 09/07/22 service: No Current occupational status: disabled Meds Allergies Allergy/AdvReac Type Severity Reaction Status Date / Time montelukast [Singulair] Allergy Unknown itching/marysol Verified 05/25/23 11:27 h From Singulair Allergy Intermediate RASH Uncoded 05/25/23 11:27 Active Medications: Current Medications Acetaminophen (Acetaminophen 325 Mg Tablet) 650 mg PO Q6H PRN PRN Reason: Pain, Mild (Pain Scale 1-3) Last Admin: 05/26/23 20:31 Dose: 650 mg Albuterol Sulfate (Albuterol Sulfate (0.083%) 2.5 Mg/3 Ml Vial.Neb) 2.5 mg INHALE QID PRN PRN Reason: Wheezing Last Admin: 05/26/23 17:48 Dose: 2.5 mg Albuterol Sulfate (Albuterol Sulfate 90 Mcg 8 Gm Inhaler) 2 puff INHALE Q4H PRN PRN Reason: Wheezing Atorvastatin Calcium (Atorvastatin Calcium 80 Mg Tablet) 80 mg PO DAILY [facility] Last Admin: 05/28/23 08:24 Dose: 80 mg Clopidogrel Bisulfate (Clopidogrel Bisulfate 75 Mg Tablet) 75 mg PO DAILY [facility] Last Admin: 05/28/23 10:51 Dose: Not Given Dextrose (Dextrose 50 % 25 Gm/50 Ml Syringe) 25 gm IVPUSH Q15M PRN; Protocol PRN Reason: per Hypoglycemia Standing Ord. Docusate Sodium (Docusate Sodium 100 Mg Capsule) 100 mg PO DAILY PRN PRN Reason: Constipation Docusate Sodium (Docusate Sodium 100 Mg Capsule) 100 mg PO BID [facility] Last Admin: 05/28/23 08:23 Dose: 100 mg Famotidine (Famotidine 20 Mg Tablet) 20 mg PO BID@0630,1630 [facility] Last Admin: 05/28/23 08:24 Dose: 20 mg Ferrous Sulfate (Ferrous Sulfate 324 Mg Tablet.Dr) 324 mg PO Q48H [facility] Last Admin: 05/28/23 08:23 Dose: 324 mg Fluticasone Propionate (Fluticasone Propionate Nasal 16 Gm [place]) 1 spray NOSTRIL-B DAILY PRN PRN Reason: Allergy Symptoms Fluticasone/Vilanterol (Fluticasone/Vilanterol 100/25 Blst.W.Dev) 1 puff INHALE RDAILY [facility] Last Admin: 05/28/23 08:00 Dose: 1 puff Furosemide (Furosemide 40 Mg Tablet) 40 mg PO DAILY [facility]; Protocol Last Admin: 05/26/23 07:45 Dose: 40 mg Glucose (Glucose Gel 15 Gm Gel..Gram.) 15 gm PO Q15M PRN; Protocol PRN Reason: per Hypoglycemia Standing Ord. Insulin Human Lispro (Insulin Lispro 100 Unit/Ml 3 Ml Vial) 0 unit SUBCUT QIDACHS [facility]; Protocol Last Admin: 05/28/23 11:34 Dose: Not Given Lidocaine (Lidocaine 4 % Patch Adh..Patch) 1 patch TRANSDERMA DAILY PRN PRN Reason: Pain (Scale Score 1-3) Loratadine (Loratadine 10 Mg Tablet) 10 mg PO DAILY [facility] Last Admin: 05/28/23 08:23 Dose: 10 mg Metoprolol Succinate (Metoprolol Succinate Er 50 Mg Tab.Er.24h) 50 mg PO DAILY [facility]; Protocol Last Admin: 05/28/23 08:23 Dose: 50 mg Mirabegron (Mirabegron 50 Mg Tab.Er.24h) 50 mg PO DAILY [facility] Last Admin: 05/28/23 08:23 Dose: 50 mg Morphine Sulfate (Morphine Sulfate 4 Mg/Ml Cartridge) 2 mg IVPUSH Q4H PRN; Protocol PRN Reason: Pain, Severe (Pain Scale 7-10) Last Admin: 05/27/23 04:03 Dose: 2 mg Ondansetron HCl (Ondansetron Hcl 4 Mg/2 Ml Vial) 4 mg IVPUSH Q8H PRN PRN Reason: Nausea and Vomiting Oxycodone HCl (Oxycodone Hcl Immed Release 5 Mg Tablet) 5 mg PO Q6H PRN PRN Reason: Pain, Moderate(Pain Scale 4-6) Last Admin: 05/27/23 22:34 Dose: 5 mg Pharmacy Consult (Consult Rx Perform Med Rec) 1 each MISCELLANE ONCE PRN PRN Reason: Consult order Polyethylene Glycol (Polyethylene Glycol 3350 17 Gm Powd.Pack) 17 gm PO DAILY [facility] Last Admin: 05/28/23 08:24 Dose: Not Given Pyridoxine HCl (Pyridoxine Hcl (Vitamin B6) 50 Mg Tablet) 100 mg PO DAILY [facility] Last Admin: 05/28/23 08:22 Dose: 100 mg Senna (Sennosides 8.6 Mg Tablet) 8.6 mg PO BID [facility] Last Admin: 05/28/23 08:24 Dose: Not Given Simethicone (Simethicone 80 Mg Tab.Chew) 160 mg PO QID PRN PRN Reason: Indigestion Sodium Chloride (0.9 % Sodium Chloride Flush 3 Ml Syringe) [facility] Last Admin: 05/28/23 10:53 Dose: 3 ml Home Medications Medication Instructions Recorded Confirmed Last Taken Type albuterol sulfate 2.5 mg/3 mL 1 amp inhalation QID PRN Wheezing 09/06/22 05/25/23 12/19/22 History (0.083 %) solution for nebulization blood sugar diagnostic ([facility] 09/06/22 04/27/23 Unknown History Verio test strips) blood-glucose meter ([facility] 09/06/22 04/27/23 Unknown History Verio Flex Meter) fluticasone 250 mcg-salmeterol 50 1 puff inhalation BID 09/06/22 05/25/23 12/19/22 History mcg/dose blistr powdr for inhalation (Advair Diskus) lancets 33 gauge ([facility] Delica 09/06/22 04/27/23 Unknown History Plus Lancet) albuterol sulfate 90 mcg/actuation 2 puff inhalation Q4-6H PRN 10/23/22 05/25/23 Unknown History aerosol inhaler (Ventolin HFA) Wheezing atorvastatin 80 mg tablet 80 mg PO DAILY 10/23/22 05/25/23 12/19/22 History metformin 850 mg tablet 850 mg PO BIDWM 10/23/22 05/25/23 12/18/22 History pyridoxine (vitamin B6) 100 mg 100 mg PO DAILY 03/02/23 05/25/23 Unknown History tablet ferrous gluconate 324 mg (37.5 mg 324 mg PO Q2D 04/09/23 05/25/23 Unknown History iron) tablet tramadol 50 mg tablet 50 mg PO Q8H PRN Pain 04/09/23 05/25/23 Unknown History clopidogrel 75 mg tablet 75 mg PO DAILY 04/27/23 05/25/23 Unknown History metoprolol succinate 50 mg 50 mg PO DAILY 04/27/23 05/25/23 Unknown History tablet,extended release 24 hr (Toprol XL) acetaminophen 325 mg tablet 650 mg PO Q6H PRN mild pain 05/25/23 05/25/23 Unknown History alendronate 70 mg tablet 70 mg PO REESE@0900 05/25/23 05/25/23 Unknown History cetirizine 10 mg tablet 10 mg PO DAILY 05/25/23 05/25/23 Unknown History docusate sodium 100 mg capsule 100 mg PO BID 05/25/23 05/25/23 Unknown History fluticasone propionate 50 1 spray intranasal DAILY PRN 05/25/23 05/25/23 Unknown History mcg/actuation nasal Allergy Symptoms spray,suspension furosemide 40 mg tablet 40 mg PO DAILY 05/25/23 05/25/23 Unknown History lidocaine 5 % topical patch 1 patch topical DAILY PRN Pain 05/25/23 05/25/23 Unknown History (Scale Score 1-3) polyethylene glycol 3350 17 gram 17 g PO DAILY 05/25/23 05/25/23 Unknown History oral powder packet sennosides 8.6 mg tablet (senna) 1 tab PO BID 05/25/23 05/25/23 Unknown History simethicone 125 mg capsule (Gas 125 mg PO QID PRN Indigestion 05/25/23 05/25/23 Unknown History Relief Extra Strength) Physical Exam Vital Signs: Vital Signs: Last Vital Signs Temp 98.2 F 05/28/23 08:00 Pulse 78 05/28/23 08:01 Resp 18 05/28/23 08:01 BP 160/91 H 05/28/23 08:00 Pulse Ox 95 05/28/23 08:00 O2 Del Method Room Air 05/28/23 08:00 BMI result Body Mass Index 34.3 Const: General: cooperative, healthy appearing, comfortable and no acute distress Orientation/consciousness: patient oriented x3 HEENT: Face and sinus: Yes normal facial exam Mouth: moist mucous membranes Neck: Neck: Yes normal visual inspection, Yes full ROM and Yes trachea midline Chest: Chest palpation & inspection: normal inspection of the chest Resp: Effort & Inspection: normal respiratory effort, able to speak in complete sentences and no respiratory distress GI: Inspection: Yes normal to inspection Back/Spine/Pelvis: Cervical Spine: normal cervical lordosis Thoracic/Lumbar Spine: thoracic and lumbar spine normal to inspection Skin: General skin exam: no rashes or lesions noted Neuro: General: patient oriented x3, tone normal and moves all extremities Extrem: General: Yes normal to inspection and Yes capillary refill normal Results Labs 05/26/23 05:05 05/28/23 05:14 Labs: Abnormal lab results 05/27/23 05/27/23 05/28/23 Range/Units 16:29 20:11 05:14 BUN 39 H (9-16) mg/dL Creatinine 2.21 H (0.5-1.4) mg/dL POC Glucose 130 H 199 H (60-115) mg/dL Random Glucose 140 H (60-115) mg/dL 05/28/23 05/28/23 Range/Units 07:15 11:33 BUN (9-16) mg/dL Creatinine (0.5-1.4) mg/dL POC Glucose 132 H 137 H (60-115) mg/dL Random Glucose (60-115) mg/dL BMP 05/28/23 05:14 Sodium 139 Potassium 4.8 Chloride 106 Carbon Dioxide 24 BUN 39 H Creatinine 2.21 H Calcium 9.9 Urine 05/25/23 Range/Units 11:52 Urine Color Yellow Urine Appearance Clear Urine pH 6.0 (5.0-9.0) Ur Specific [place] 1.015 (1.005-1.025) Urine Protein Trace (Neg-Trace) mg/dL Urine Glucose (UA) Negative (Negative) mg/dL All other labs normal. Assessment and Plan (1) UPJ obstruction, acquired: Status: Acute Plan Risks, benefits and alternatives to therapy were discussed. These include but are not limited to infection, bleeding, damage to local organs and tissues, need for further interventions. Anesthetic risks regarding cardiac arrhythmia, blood clots, and potential mortality were discussed. The patient understands the typical recovery time and the outpatient nature of the procedure. After consideration of these risks the patient gives full informed consent and they wish to move ahead with the procedure. Cystoscopy, right retrograde, stent placement Time Spent With Patient Time: Total time managing care of this patient today ____ minutes. Procedures Date of Service Date of Service: 05/28/23
--- NOTE | 2023-05-28 13:24 | HO.PM.IMPN ---
Subjective Subjective Date of Service: 05/28/23 Interval History: seen and examined this morning follow up for obstructive uropathy and ORION still with some mild left flank pain. no nausea or vomiting Review of Systems Review of Systems: Yes all other systems are reviewed and are negative Constitutional Constitutional: Denies chills and Denies fever(s) Cardiovascular Cardiovascular: Denies chest pain, Denies palpitations and Denies dyspnea Respiratory Respiratory: Denies cough and Denies dyspnea Gastrointestinal Gastrointestinal: Denies nausea and Denies vomiting Endocrine Endocrine: Denies palpitations Physical Exam Vital Signs: Vital Signs: Last Vital Signs Temp 98.2 F 05/28/23 08:00 Pulse 78 05/28/23 08:01 Resp 18 05/28/23 08:01 BP 160/91 H 05/28/23 08:00 Pulse Ox 95 05/28/23 08:00 O2 Del Method Room Air 05/28/23 08:00 BMI result Body Mass Index 34.3 Const: General: cooperative, comfortable, no acute distress, alert and awake Nutritional Appearance: average body habitus Orientation/consciousness: patient oriented x3 Resp: Effort & Inspection: normal respiratory effort, no respiratory distress and no use of accessory muscles Auscultation: clear to auscultation bilaterally Cardio: Rate: regular rate Heart sounds: S1 normal heart sound present and S2 normal heart sound present GI: Inspection: No distended Palpation (GI): Soft to palpation and nontender : Other: vance in place draining pink tinged urine mild left CVAT Neuro: General: patient oriented x3, moves all extremities and CN's II-XI intact bilaterally Extrem: General: Yes no pedal edema Objective Data Active Medications Acetaminophen (Acetaminophen 325 Mg Tablet) 650 mg PO Q6H PRN PRN Reason: Pain, Mild (Pain Scale 1-3) Last Admin: 05/26/23 20:31 Dose: 650 mg Documented By: ROCIO Albuterol Sulfate (Albuterol Sulfate (0.083%) 2.5 Mg/3 Ml Vial.Neb) 2.5 mg INHALE QID PRN PRN Reason: Wheezing Last Admin: 05/26/23 17:48 Dose: 2.5 mg Documented By: ROMY Albuterol Sulfate (Albuterol Sulfate 90 Mcg 8 Gm Inhaler) 2 puff INHALE Q4H PRN PRN Reason: Wheezing Atorvastatin Calcium (Atorvastatin Calcium 80 Mg Tablet) 80 mg PO DAILY [facility] Last Admin: 05/28/23 08:24 Dose: 80 mg Documented By: JAYY Clopidogrel Bisulfate (Clopidogrel Bisulfate 75 Mg Tablet) 75 mg PO DAILY [facility] Last Admin: 05/28/23 10:51 Dose: Not Given Documented By: JAYY Non-Admin Reason: surgery Dextrose (Dextrose 50 % 25 Gm/50 Ml Syringe) 25 gm IVPUSH Q15M PRN; Protocol PRN Reason: per Hypoglycemia Standing Ord. Docusate Sodium (Docusate Sodium 100 Mg Capsule) 100 mg PO DAILY PRN PRN Reason: Constipation Docusate Sodium (Docusate Sodium 100 Mg Capsule) 100 mg PO BID [facility] Last Admin: 05/28/23 08:23 Dose: 100 mg Documented By: JAYY Famotidine (Famotidine 20 Mg Tablet) 20 mg PO BID@0630,1630 [facility] Last Admin: 05/28/23 08:24 Dose: 20 mg Documented By: JAYY Ferrous Sulfate (Ferrous Sulfate 324 Mg Tablet.Dr) 324 mg PO Q48H [facility] Last Admin: 05/28/23 08:23 Dose: 324 mg Documented By: JAYY Fluticasone Propionate (Fluticasone Propionate Nasal 16 Gm [place]) 1 spray NOSTRIL-B DAILY PRN PRN Reason: Allergy Symptoms Fluticasone/Vilanterol (Fluticasone/Vilanterol 100/25 Blst.W.Dev) 1 puff INHALE RDAILY [facility] Last Admin: 05/28/23 08:00 Dose: 1 puff Documented By: ANUPAM Furosemide (Furosemide 40 Mg Tablet) 40 mg PO DAILY [facility]; Protocol Last Admin: 05/26/23 07:45 Dose: 40 mg Documented By: JAYY Glucose (Glucose Gel 15 Gm Gel..Gram.) 15 gm PO Q15M PRN; Protocol PRN Reason: per Hypoglycemia Standing Ord. Insulin Human Lispro (Insulin Lispro 100 Unit/Ml 3 Ml Vial) 0 unit SUBCUT QIDACHS [facility]; Protocol Last Admin: 05/28/23 11:34 Dose: Not Given Documented By: JAYY Non-Admin Reason: NPO Lidocaine (Lidocaine 4 % Patch Adh..Patch) 1 patch TRANSDERMA DAILY PRN PRN Reason: Pain (Scale Score 1-3) Loratadine (Loratadine 10 Mg Tablet) 10 mg PO DAILY [facility] Last Admin: 05/28/23 08:23 Dose: 10 mg Documented By: JAYY Metoprolol Succinate (Metoprolol Succinate Er 50 Mg Tab.Er.24h) 50 mg PO DAILY [facility]; Protocol Last Admin: 05/28/23 08:23 Dose: 50 mg Documented By: JAYY Mirabegron (Mirabegron 50 Mg Tab.Er.24h) 50 mg PO DAILY [facility] Last Admin: 05/28/23 08:23 Dose: 50 mg Documented By: JAYY Morphine Sulfate (Morphine Sulfate 4 Mg/Ml Cartridge) 2 mg IVPUSH Q4H PRN; Protocol PRN Reason: Pain, Severe (Pain Scale 7-10) Last Admin: 05/27/23 04:03 Dose: 2 mg Documented By: ROCIO Ondansetron HCl (Ondansetron Hcl 4 Mg/2 Ml Vial) 4 mg IVPUSH Q8H PRN PRN Reason: Nausea and Vomiting Oxycodone HCl (Oxycodone Hcl Immed Release 5 Mg Tablet) 5 mg PO Q6H PRN PRN Reason: Pain, Moderate(Pain Scale 4-6) Last Admin: 05/27/23 22:34 Dose: 5 mg Documented By: MICHELLE Pharmacy Consult (Consult Rx Perform Med Rec) 1 each MISCELLANE ONCE PRN PRN Reason: Consult order Polyethylene Glycol (Polyethylene Glycol 3350 17 Gm Powd.Pack) 17 gm PO DAILY [facility] Last Admin: 05/28/23 08:24 Dose: Not Given Documented By: JAYY Non-Admin Reason: NPO Pyridoxine HCl (Pyridoxine Hcl (Vitamin B6) 50 Mg Tablet) 100 mg PO DAILY [facility] Last Admin: 05/28/23 08:22 Dose: 100 mg Documented By: JAYY Senna (Sennosides 8.6 Mg Tablet) 8.6 mg PO BID [facility] Last Admin: 05/28/23 08:24 Dose: Not Given Documented By: JAYY Non-Admin Reason: NPO Simethicone (Simethicone 80 Mg Tab.Chew) 160 mg PO QID PRN PRN Reason: Indigestion Sodium Chloride (0.9 % Sodium Chloride Flush 3 Ml Syringe) 3 ml IVFLUSH QSHIFT [facility] Last Admin: 05/28/23 10:53 Dose: 3 ml Documented By: JAYY Labs 05/26/23 05:05 05/28/23 05:14 Labs: Laboratory Results - last 24 hr 05/27/23 05/27/23 05/28/23 16:29 20:11 05:14 Anion Gap 14 Estim Creat Clear Calc 20.8 Estimated GFR 21 POC Glucose 130 H 199 H Random Glucose 140 H Calcium 9.9 05/28/23 05/28/23 07:15 11:33 Anion Gap Estim Creat Clear Calc Estimated GFR POC Glucose 132 H 137 H Random Glucose Calcium Assessment and Plan (1) Obstructive uropathy: Status: Acute (2) Acute kidney failure: Status: Acute Plan 78 year old female with history of noninsulin dependent type 2 diabetes, htn, asthma/copd overlap, chronic atrial fibrillation anticoagulated with eliquis, history etoh abuse, CHF, history NSTEMI, and history nephrolithiasis?admitted for further management of obstructive uropathy with acute kidney injury. Acute kidney injury due to obstructive uropathy of right UPJ UA, UCx negative CT with finding of possible vessel crossing UPJ but unable to have CT with contrast due to ORION Vance placed but repeat CT with persistent right hydro - plan for stent placement today SCr remains elevated around 2.2 Baseline .8-1.1 hold losartan, lasix follow renal function Chronic atrial fibrillation-rate controlled Hold eliquis until after stent placement, resume when safe from urological perspective continue rate control medications HFpEF no acute exacerbation hold po lasix for orion Chronic normocytic anemia H/H baseline, above transfusion threshold Asthma/COPD overlap no acute exacerbation continue home inhalers HTN Hold losartan in setting ORION Continue addl home meds DM continue SSI, POCs, ada diet metformin on hold DVT prophylaxis- SCPs. eliquis currently on hold for stent placement Attending Dr. Higginbotham Full code continued hospital stay for management of obstructive uropathy requiring expert consultation and stent placement Time Spent With Patient Time: Total time managing care of this patient today ____ minutes. Quality Stroke Does the patient have a stroke diagnosis?: No VTE Prior VTE?: No VTE Risk Level:: Medical - moderate - high VTE Device Contraindication: N/A - Device Ordered VTE Drug Contraindication: Treatment Not Indicated
--- NOTE | 2023-05-28 15:20 | PC.NURSE ---
Patient is being transported to OR via bed by OR staff
--- NOTE | 2023-05-28 15:56 | HO.ANESPROP2 ---
HPI - Anesthesia Eval Consult details Narrative: 78 yo F presenting for cystoscopy retrograde. Recent heart stent at [facility] in 04/2023. Unclear what type of stent due to lack of medical records. Patient is on Plavix; last dose 1 day ago. [facility] [place] Active Problems Active Problems: All Active Problems (Updated 05/26/23 @ 02:01 by Nona Severino CNP) Obstructive uropathy (Acute) Acute kidney failure (Acute) UPJ obstruction, acquired (Acute) NSTEMI (non-ST elevated myocardial infarction) (Acute) Dyspnea on exertion (Acute) Acute on chronic congestive heart failure (Acute) Persistent atrial fibrillation (Acute) Acute congestive heart failure (Acute) Congestive heart failure (Acute) Acute dyspnea (Acute) Anxiety (Acute) Dysphagia, pharyngoesophageal phase (Acute) Chronic kidney disease (Acute) Obstruction, uropathy (Acute) Hydronephrosis (Acute) Acute kidney injury (Acute) Diabetes (Acute) Trochanteric bursitis, right hip (Acute) Pleural effusion (Acute) Hydronephrosis, bilateral (Acute) Varicose veins of right lower extremity with inflammation (Acute) Contusion of left lower leg (Acute) Thrombosed external hemorrhoid (Acute) Cystocele with rectocele (Acute) Gout (Acute) Asthma (Acute) Alcohol abuse (Acute) Nephrolithiasis (Acute) Past Medical History Medical History (Updated 05/26/23 @ 02:01 by Nona Severino CNP) Alcohol abuse Anxiety Arthritis Asthma Asymmetrical thyroid Atrial fibrillation CHF (congestive heart failure) COPD (chronic obstructive pulmonary disease) COVID-19 Diabetes Gout Hypertension Knee arthropathy Nephrolithiasis NSTEMI (non-ST elevated myocardial infarction) Obstruction, uropathy Osteoarthritis Renal cyst, acquired, left Thrombosed external hemorrhoid Family History Family history of problems with anesthesia: No Surgical History Surgical History History of total knee arthroplasty Hx of colonoscopy History of Problems with Anesthesia: No Social History Social History Household Members: Family Household Members Other:: DAUGHTER Housing: Apartment Housing Other:: low income housing Do you presently have visiting nurse or other home services: No (granddaughter is sales promotion director) Unable to assess alcohol history related to: Unknown Alcohol intake: unknown Patient Tobacco Use Status: Never used Tobacco e-Cigarette/Vaping Use: Never Used Second Hand Smoke Exposure: No Advance Directives Date on File: 09/07/22 service: No Current occupational status: disabled Meds Allergies Allergy/AdvReac Type Severity Reaction Status Date / Time montelukast [Singulair] Allergy Unknown itching/marysol Verified 05/25/23 11:27 h From Singulair Allergy Intermediate RASH Uncoded 05/25/23 11:27 Active Medications: Current Medications Acetaminophen (Acetaminophen 325 Mg Tablet) 650 mg PO Q6H PRN PRN Reason: Pain, Mild (Pain Scale 1-3) Last Admin: 05/26/23 20:31 Dose: 650 mg Albuterol Sulfate (Albuterol Sulfate (0.083%) 2.5 Mg/3 Ml Vial.Neb) 2.5 mg INHALE QID PRN PRN Reason: Wheezing Last Admin: 05/26/23 17:48 Dose: 2.5 mg Albuterol Sulfate (Albuterol Sulfate 90 Mcg 8 Gm Inhaler) 2 puff INHALE Q4H PRN PRN Reason: Wheezing Atorvastatin Calcium (Atorvastatin Calcium 80 Mg Tablet) 80 mg PO DAILY [facility] Last Admin: 05/28/23 08:24 Dose: 80 mg Clopidogrel Bisulfate (Clopidogrel Bisulfate 75 Mg Tablet) 75 mg PO DAILY [facility] Last Admin: 05/28/23 10:51 Dose: Not Given Dextrose (Dextrose 50 % 25 Gm/50 Ml Syringe) 25 gm IVPUSH Q15M PRN; Protocol PRN Reason: per Hypoglycemia Standing Ord. Docusate Sodium (Docusate Sodium 100 Mg Capsule) 100 mg PO DAILY PRN PRN Reason: Constipation Docusate Sodium (Docusate Sodium 100 Mg Capsule) 100 mg PO BID [facility] Last Admin: 05/28/23 08:23 Dose: 100 mg Famotidine (Famotidine 20 Mg Tablet) 20 mg PO BID@0630,1630 [facility] Last Admin: 05/28/23 08:24 Dose: 20 mg Ferrous Sulfate (Ferrous Sulfate 324 Mg Tablet.Dr) 324 mg PO Q48H [facility] Last Admin: 05/28/23 08:23 Dose: 324 mg Fluticasone Propionate (Fluticasone Propionate Nasal 16 Gm Scott[place]) 1 spray NOSTRIL-B DAILY PRN PRN Reason: Allergy Symptoms Fluticasone/Vilanterol (Fluticasone/Vilanterol 100/25 Blst.W.Dev) 1 puff INHALE RDAILY [facility] Last Admin: 05/28/23 08:00 Dose: 1 puff Furosemide (Furosemide 40 Mg Tablet) 40 mg PO DAILY [facility]; Protocol Last Admin: 05/26/23 07:45 Dose: 40 mg Glucose (Glucose Gel 15 Gm Gel..Gram.) 15 gm PO Q15M PRN; Protocol PRN Reason: per Hypoglycemia Standing Ord. Insulin Human Lispro (Insulin Lispro 100 Unit/Ml 3 Ml Vial) 0 unit SUBCUT QIDACHS [facility]; Protocol Last Admin: 05/28/23 11:34 Dose: Not Given Lidocaine (Lidocaine 4 % Patch Adh..Patch) 1 patch TRANSDERMA DAILY PRN PRN Reason: Pain (Scale Score 1-3) Loratadine (Loratadine 10 Mg Tablet) 10 mg PO DAILY [facility] Last Admin: 05/28/23 08:23 Dose: 10 mg Metoprolol Succinate (Metoprolol Succinate Er 50 Mg Tab.Er.24h) 50 mg PO DAILY [facility]; Protocol Last Admin: 05/28/23 08:23 Dose: 50 mg Mirabegron (Mirabegron 50 Mg Tab.Er.24h) 50 mg PO DAILY [facility] Last Admin: 05/28/23 08:23 Dose: 50 mg Morphine Sulfate (Morphine Sulfate 4 Mg/Ml Cartridge) 2 mg IVPUSH Q4H PRN; Protocol PRN Reason: Pain, Severe (Pain Scale 7-10) Last Admin: 05/27/23 04:03 Dose: 2 mg Ondansetron HCl (Ondansetron Hcl 4 Mg/2 Ml Vial) 4 mg IVPUSH Q8H PRN PRN Reason: Nausea and Vomiting Oxycodone HCl (Oxycodone Hcl Immed Release 5 Mg Tablet) 5 mg PO Q6H PRN PRN Reason: Pain, Moderate(Pain Scale 4-6) Last Admin: 05/27/23 22:34 Dose: 5 mg Pharmacy Consult (Consult Rx Perform Med Rec) 1 each MISCELLANE ONCE PRN PRN Reason: Consult order Polyethylene Glycol (Polyethylene Glycol 3350 17 Gm Powd.Pack) 17 gm PO DAILY [facility] Last Admin: 05/28/23 08:24 Dose: Not Given Pyridoxine HCl (Pyridoxine Hcl (Vitamin B6) 50 Mg Tablet) 100 mg PO DAILY [facility] Last Admin: 05/28/23 08:22 Dose: 100 mg Senna (Sennosides 8.6 Mg Tablet) 8.6 mg PO BID [facility] Last Admin: 05/28/23 08:24 Dose: Not Given Simethicone (Simethicone 80 Mg Tab.Chew) 160 mg PO QID PRN PRN Reason: Indigestion Sodium Chloride (0.9 % Sodium Chloride Flush 3 Ml Syringe) 3 ml IVFLUSH QSHIFT [facility] Last Admin: 05/28/23 10:53 Dose: 3 ml Home Medications Medication Instructions Recorded Confirmed Last Taken Type albuterol sulfate 2.5 mg/3 mL 1 amp inhalation QID PRN Wheezing 09/06/22 05/25/23 12/19/22 History (0.083 %) solution for nebulization blood sugar diagnostic ([facility] 09/06/22 04/27/23 Unknown History Verio test strips) blood-glucose meter ([facility] 09/06/22 04/27/23 Unknown History Verio Flex Meter) fluticasone 250 mcg-salmeterol 50 1 puff inhalation BID 09/06/22 05/25/23 12/19/22 History mcg/dose blistr powdr for inhalation (Advair Diskus) lancets 33 gauge ([facility] Delica 09/06/22 04/27/23 Unknown History Plus Lancet) albuterol sulfate 90 mcg/actuation 2 puff inhalation Q4-6H PRN 10/23/22 05/25/23 Unknown History aerosol inhaler (Ventolin HFA) Wheezing atorvastatin 80 mg tablet 80 mg PO DAILY 10/23/22 05/25/23 12/19/22 History metformin 850 mg tablet 850 mg PO BIDWM 10/23/22 05/25/23 12/18/22 History pyridoxine (vitamin B6) 100 mg 100 mg PO DAILY 03/02/23 05/25/23 Unknown History tablet ferrous gluconate 324 mg (37.5 mg 324 mg PO Q2D 04/09/23 05/25/23 Unknown History iron) tablet tramadol 50 mg tablet 50 mg PO Q8H PRN Pain 04/09/23 05/25/23 Unknown History clopidogrel 75 mg tablet 75 mg PO DAILY 04/27/23 05/25/23 Unknown History metoprolol succinate 50 mg 50 mg PO DAILY 04/27/23 05/25/23 Unknown History tablet,extended release 24 hr (Toprol XL) acetaminophen 325 mg tablet 650 mg PO Q6H PRN mild pain 05/25/23 05/25/23 Unknown History alendronate 70 mg tablet 70 mg PO REESE@0900 05/25/23 05/25/23 Unknown History cetirizine 10 mg tablet 10 mg PO DAILY 05/25/23 05/25/23 Unknown History docusate sodium 100 mg capsule 100 mg PO BID 05/25/23 05/25/23 Unknown History fluticasone propionate 50 1 spray intranasal DAILY PRN 05/25/23 05/25/23 Unknown History mcg/actuation nasal Allergy Symptoms spray,suspension furosemide 40 mg tablet 40 mg PO DAILY 05/25/23 05/25/23 Unknown History lidocaine 5 % topical patch 1 patch topical DAILY PRN Pain 05/25/23 05/25/23 Unknown History (Scale Score 1-3) polyethylene glycol 3350 17 gram 17 g PO DAILY 05/25/23 05/25/23 Unknown History oral powder packet sennosides 8.6 mg tablet (senna) 1 tab PO BID 05/25/23 05/25/23 Unknown History simethicone 125 mg capsule (Gas 125 mg PO QID PRN Indigestion 05/25/23 05/25/23 Unknown History Relief Extra Strength) Exam Exam Date and Time: May 28, 2023 1556 Height,Weight and Vital Signs: Height 5 ft 2 in Weight 85 kg Last Vital Signs Temp 96.9 F 05/28/23 15:39 Pulse 98 05/28/23 15:39 Resp 20 05/28/23 15:39 BP 139/86 05/28/23 15:39 Pulse Ox 95 05/28/23 15:39 O2 Del Method Room Air 05/28/23 15:39 Pertinent Lab Results Pertinent Lab Results: Laboratory Tests 05/25/23 05/25/23 05/25/23 11:52 11:52 11:52 WBC 5.3 RBC 3.86 L Hgb 10.4 L Hct 33.6 L MCV 87.0 MCH 26.9 L MCHC 31.0 RDW 13.9 Plt Count 220 MPV 10.9 Immature Gran % (Auto) 0.2 Neut % (Auto) 60.2 Lymph % (Auto) 19.1 L Marshall % (Auto) 13.6 H Eos % (Auto) 6.0 H Baso % (Auto) 0.9 Lymph # (Auto) 1.0 L Marshall # (Auto) 0.7 Eos # (Auto) 0.3 Baso # (Auto) 0.1 Abs Immat Gran (auto) 0.01 Absolute Neuts (auto) 3.2 Absolute Nucleated RBC 0.000 Nucleated RBC % (auto) 0.0 Sodium 139 Potassium 4.7 D Chloride 108 Carbon Dioxide 20 L Anion Gap 16 BUN 43 H Creatinine 2.35 H Estim Creat Clear Calc 19.5 Estimated GFR 20 POC Glucose Random Glucose 130 H Calcium 10.0 Magnesium 2.8 H Total Bilirubin 0.3 Direct Bilirubin 0.1 AST 28 ALT 18 Alkaline Phosphatase 94 Total Protein 7.4 Albumin 4.0 Lipase 45 Urine Color Yellow Urine Appearance Clear Urine pH 6.0 Ur Specific [place] 1.015 Urine Protein Trace Urine Glucose (UA) Negative Urine Ketones Negative Urine Blood Trace H Urine Nitrite Negative Ur Leukocyte Esterase Small (1+) H Urine RBC 11-20 H Urine WBC 6-10 H Ur Squamous Epith Cells 0-2 Urine Bacteria None Seen Hyaline Casts 0-2 05/26/23 05/26/23 05/26/23 00:27 05:05 05:05 WBC 5.4 RBC 3.77 L Hgb 10.0 L Hct 32.8 L MCV 87.0 MCH 26.5 L MCHC 30.5 L RDW 13.9 Plt Count 203 MPV 10.9 Immature Gran % (Auto) 0.2 Neut % (Auto) 64.8 Lymph % (Auto) 16.0 L Marshall % (Auto) 13.3 H Eos % (Auto) 4.8 H Baso % (Auto) 0.9 Lymph # (Auto) 0.9 L Marshall # (Auto) 0.7 Eos # (Auto) 0.3 Baso # (Auto) 0.1 Abs Immat Gran (auto) 0.01 Absolute Neuts (auto) 3.5 Absolute Nucleated RBC 0.000 Nucleated RBC % (auto) 0.0 Sodium 141 Potassium 4.4 Chloride 110 H Carbon Dioxide 22 Anion Gap 13 BUN 39 H Creatinine 1.93 H Estim Creat Clear Calc 23.9 Estimated GFR 25 POC Glucose 131 H Random Glucose 111 Calcium 9.4 Magnesium Total Bilirubin Direct Bilirubin AST ALT Alkaline Phosphatase Total Protein Albumin Lipase Urine Color Urine Appearance Urine pH Ur Specific [place] Urine Protein Urine Glucose (UA) Urine Ketones Urine Blood Urine Nitrite Ur Leukocyte Esterase Urine RBC Urine WBC Ur Squamous Epith Cells Urine Bacteria Hyaline Casts 05/26/23 05/26/23 05/26/23 07:21 11:30 16:03 WBC RBC Hgb Hct MCV MCH MCHC RDW Plt Count MPV Immature Gran % (Auto) Neut % (Auto) Lymph % (Auto) Marshall % (Auto) Eos % (Auto) Baso % (Auto) Lymph # (Auto) Marshall # (Auto) Eos # (Auto) Baso # (Auto) Abs Immat Gran (auto) Absolute Neuts (auto) Absolute Nucleated RBC Nucleated RBC % (auto) Sodium Potassium Chloride Carbon Dioxide Anion Gap BUN Creatinine Estim Creat Clear Calc Estimated GFR POC Glucose 118 H 117 H 159 H Random Glucose Calcium Magnesium Total Bilirubin Direct Bilirubin AST ALT Alkaline Phosphatase Total Protein Albumin Lipase Urine Color Urine Appearance Urine pH Ur Specific [place] Urine Protein Urine Glucose (UA) Urine Ketones Urine Blood Urine Nitrite Ur Leukocyte Esterase Urine RBC Urine WBC Ur Squamous Epith Cells Urine Bacteria Hyaline Casts 05/26/23 05/27/23 05/27/23 19:12 05:02 07:09 WBC RBC Hgb Hct MCV MCH MCHC RDW Plt Count MPV Immature Gran % (Auto) Neut % (Auto) Lymph % (Auto) Marshall % (Auto) Eos % (Auto) Baso % (Auto) Lymph # (Auto) Marshall # (Auto) Eos # (Auto) Baso # (Auto) Abs Immat Gran (auto) Absolute Neuts (auto) Absolute Nucleated RBC Nucleated RBC % (auto) Sodium 139 Potassium 4.4 Chloride 105 Carbon Dioxide 26 Anion Gap 12 BUN 43 H Creatinine 1.99 H Estim Creat Clear Calc 23.1 Estimated GFR 24 POC Glucose 126 H 136 H Random Glucose 144 H Calcium 9.5 Magnesium Total Bilirubin Direct Bilirubin AST ALT Alkaline Phosphatase Total Protein Albumin Lipase Urine Color Urine Appearance Urine pH Ur Specific [place] Urine Protein Urine Glucose (UA) Urine Ketones Urine Blood Urine Nitrite Ur Leukocyte Esterase Urine RBC Urine WBC Ur Squamous Epith Cells Urine Bacteria Hyaline Casts 05/27/23 05/27/23 05/27/23 11:10 16:29 20:11 WBC RBC Hgb Hct MCV MCH MCHC RDW Plt Count MPV Immature Gran % (Auto) Neut % (Auto) Lymph % (Auto) Marshall % (Auto) Eos % (Auto) Baso % (Auto) Lymph # (Auto) Marshall # (Auto) Eos # (Auto) Baso # (Auto) Abs Immat Gran (auto) Absolute Neuts (auto) Absolute Nucleated RBC Nucleated RBC % (auto) Sodium Potassium Chloride Carbon Dioxide Anion Gap BUN Creatinine Estim Creat Clear Calc Estimated GFR POC Glucose 207 H 130 H 199 H Random Glucose Calcium Magnesium Total Bilirubin Direct Bilirubin AST ALT Alkaline Phosphatase Total Protein Albumin Lipase Urine Color Urine Appearance Urine pH Ur Specific [place] Urine Protein Urine Glucose (UA) Urine Ketones Urine Blood Urine Nitrite Ur Leukocyte Esterase Urine RBC Urine WBC Ur Squamous Epith Cells Urine Bacteria Hyaline Casts 05/28/23 05/28/23 05/28/23 05:14 07:15 11:33 WBC RBC Hgb Hct MCV MCH MCHC RDW Plt Count MPV Immature Gran % (Auto) Neut % (Auto) Lymph % (Auto) [place] % (Auto) Eos % (Auto) Baso % (Auto) Lymph # (Auto) Marshall # (Auto) Eos # (Auto) Baso # (Auto) Abs Immat Gran (auto) Absolute Neuts (auto) Absolute Nucleated RBC Nucleated RBC % (auto) Sodium 139 Potassium 4.8 Chloride 106 Carbon Dioxide 24 Anion Gap 14 BUN 39 H Creatinine 2.21 H Estim Creat Clear Calc 20.8 Estimated GFR 21 POC Glucose 132 H 137 H Random Glucose 140 H Calcium 9.9 Magnesium Total Bilirubin Direct Bilirubin AST ALT Alkaline Phosphatase Total Protein Albumin Lipase Urine Color Urine Appearance Urine pH Ur Specific [place] Urine Protein Urine Glucose (UA) Urine Ketones Urine Blood Urine Nitrite Ur Leukocyte Esterase Urine RBC Urine WBC Ur Squamous Epith Cells Urine Bacteria Hyaline Casts Airway Mallampati Class: II TM Dist: >3cm Neck ROM: Full Loose/Missing/Broken Teeth: No Heart: S1S2 Lungs: CTAB Assessment and Plan Assessment Anesthesia Assessment: Anesthesia Plan Discussed and Chart Reviewed Final Anesthetic Review Family History of Problems with Anesthesia: No History of Problems with Anesthesia: No NPO: Yes ASA Class: IV Final Preanesthetic Review: No Changes in Pt Med Stat, Meds/Allgs Chart Reviewed, Consent Obtained/Reviewed and Anes Risks/Benef Reviewed Patient Risk: High Procedure Risk: Low Anesthetic Plan Anesthetic Plan: GA and Agree w/ Assess. and Plan Disposition: Standard PACU
--- NOTE | 2023-05-28 16:32 | MHC.SHP ---
Pre-Procedural Eval Section A Date of Service: 05/28/23 The patient is an INPATIENT: Yes Changes since office visit: No Cold of Flu in the past 2 weeks, No New Medical Problems, No Changes in Medication and No Patient answered all questions The History & Physical has been completed within 30 days and I have reviewed it.: Yes Section B Chief Complaint: obstructive uropathy Allergies: Allergies Allergy/AdvReac Type Severity Reaction Status Date / Time montelukast [Singulair] Allergy Unknown itching/marysol Verified 05/25/23 11:27 h From Singulair Allergy Intermediate RASH Uncoded 05/25/23 11:27 Plan I have reviewed the history and physical and performed a pertinent physical examination on my patient. No changes have occurred unless specified. Time Spent With Patient Time: Total time managing care of this patient today ____ minutes.
--- NOTE | 2023-05-28 17:29 | P.OP_ITS ---
Operative Note Operative Note Date of Service: 05/28/23 Narrative: PreOperative Diagnosis: Right hydronephrosis Post Operative Diagnosis: Right hydronephrosis Procedure: Cystoscopy, right retrograde, right stent placement Surgeon: Dr Lior Tellez Anesthesia: Sedation Indications for procedure: Hydronephrosis likely from prior scarring from kidney stone Procedure: After informed consent was verified the patient was brought to the operating room and placed in a supine position. Anesthesia was administered per protocol. The patient was placed in modified dorsal lithotomy position and prepped and draped in a sterile fashion. A safety pause time-out was performed. Laterality of procedure and antibiotics were confirmed, appropriate imaging was available A 22 [place] cystoscope was introduced per urethra. No abnormality was noted of urethra or bladder. Both ureteric orifices were seen in a normal position. The right ureter was cannulated with an open ended catheter and a retrograde examination was performed. Narrowing at right UPJ . A Sensor guidewire was placed under fluoroscopy and a good coil was seen within the renal pelvis. A 6 x 24cm double J stent was advanced over the wire and up to the level of the renal pelvis under fluoroscopic and direct visualization. The stent was seen with appropriate coil within the renal pelvis and in the bladder after deployment. The patient tolerated the procedure well and was transferred in a stable condition to the recovery area. Pathology: - Drains: above
[2023-05-28 18:27] LABS: Glucose, Whole Blood 124 mg/dL (60-115)
--- NOTE | 2023-05-28 18:47 | PC.NURSE ---
BP elevated 173/68 pulse 72,patient has no complaints,CLAIRE Cates notified ,will monitor
[2023-05-28 20:28] LABS: Glucose, Whole Blood 210 mg/dL (60-115)
[2023-05-28] MEDS: Insulin Lispro 100 UNIT/ML 3 ML VIAL SUBCUT (20:42)
[2023-05-28] MEDS: Sennosides 8.6 MG TABLET PO (20:42)
[2023-05-29 03:28] VITALS: BP 139/68; PULSE 73; RESP 18; TEMP 36.3; O2SAT 96
[2023-05-29 06:04] LABS: Anion Gap 13 (12-20); Blood Urea Nitrogen 33 mg/dL (9-16); Calcium 9.9 mg/dL (8.4-10.2); Carbon Dioxide 24 mmol/L (22-29); Chloride 108 mmol/L (96-108); Creatinine Clr Calc Pharmacy 22.3; Estimated Glomerular Filt Rate 23; Glucose Random 125 mg/dL (60-115); Potassium 4.6 mmol/L (3.3-5.1); Sodium 140 mmol/L (135-145)
[2023-05-29] MEDS: Famotidine 20 MG TABLET PO ×2 (06:06→15:57)
[2023-05-29 07:22] LABS: Glucose, Whole Blood 128 mg/dL (60-115)
[2023-05-29] MEDS: Morphine Sulfate 4 MG/ML CARTRIDGE 2 MG IVPUSH (07:28)
[2023-05-29] MEDS: Furosemide 40 MG TABLET PO (07:31)
[2023-05-29] MEDS: polyethylene glycoL 3350 17 GM POWD.PACK PO (07:31)
[2023-05-29] MEDS: Mirabegron 50 MG TAB.ER.24H PO (07:31)
[2023-05-29] MEDS: Atorvastatin Calcium 80 MG TABLET PO (07:31)
[2023-05-29] MEDS: Pyridoxine HCl (Vitamin B6) 50 MG TABLET 100 MG PO (07:32)
[2023-05-29] MEDS: Sennosides 8.6 MG TABLET PO ×2 (07:32→20:46)
[2023-05-29] MEDS: Clopidogrel Bisulfate 75 MG TABLET PO (07:32)
[2023-05-29] MEDS: Loratadine 10 MG TABLET PO (07:32)
[2023-05-29] MEDS: Metoprolol Succinate ER 50 MG TAB.ER.24H PO (07:32)
[2023-05-29] MEDS: Docusate Sodium 100 MG CAPSULE PO ×2 (07:33→20:48)
[2023-05-29] MEDS: Lactated Ringers 1,000 ML 100 ML IVCONT (07:34)
[2023-05-29 07:36] VITALS: BP 172/76; PULSE 83; RESP 18; TEMP 36.4; O2SAT 96
[2023-05-29] MEDS: 0.9 % Sodium Chloride Flush 3 ML SYRINGE IVFLUSH ×3 (07:41→23:57)
--- NOTE | 2023-05-29 10:09 | HO.POSTANES ---
Post Anesthesia Evaluation Post Anesthesia Evaluation Date of Service: 05/29/23 Vital Signs: Vital Signs Temp Pulse Resp BP Pulse Ox O2 Del Method 05/29/23 07:36 97.6 F 83 18 172/76 H 96 Room Air 05/29/23 03:28 97.3 F 73 18 139/68 96 Room Air Anesthesia: General Mental Status: Awake Pain Control: Satisfactory Nausea/Vomiting: None Hydration: Adequate Anesthesia-Related Issues: No Anes. Related Issues
[2023-05-29 11:15] LABS: Glucose, Whole Blood 203 mg/dL (60-115)
[2023-05-29] MEDS: Insulin Lispro 100 UNIT/ML 3 ML VIAL SUBCUT ×3 (11:34→20:46)
--- NOTE | 2023-05-29 12:42 | HO.PM.IMPN ---
Subjective Subjective Date of Service: 05/29/23 Interval History: seen and examined this morning follow up for obstructive uropathy, ORION s/p right stent placement with urology yesterday no abdominal pain, fever or chills reporting restless legs, which she states in chronic left side pain improving Review of Systems Review of Systems: Yes all other systems are reviewed and are negative Constitutional Constitutional: Denies chills and Denies fever(s) ENT Ears, Nose, Mouth, and Throat: Denies dizziness Cardiovascular Cardiovascular: Denies chest pain, Denies palpitations and Denies dyspnea Respiratory Respiratory: Denies cough and Denies dyspnea Neurologic Neurologic: Denies dizziness Endocrine Endocrine: Denies palpitations Physical Exam Vital Signs: Vital Signs: Last Vital Signs Temp 97.6 F 05/29/23 07:36 Pulse 83 05/29/23 07:36 Resp 18 05/29/23 07:36 BP 172/76 H 05/29/23 07:36 Pulse Ox 96 05/29/23 07:36 O2 Del Method Room Air 05/29/23 07:36 O2 Flow Rate 2 05/28/23 18:11 BMI result Body Mass Index 34.3 Const: General: cooperative, comfortable, no acute distress, alert and awake Nutritional Appearance: average body habitus Orientation/consciousness: patient oriented x3 Resp: Effort & Inspection: normal respiratory effort, no respiratory distress and no use of accessory muscles Auscultation: clear to auscultation bilaterally Cardio: Rate: regular rate Heart sounds: S1 normal heart sound present and S2 normal heart sound present GI: Inspection: No distended Palpation (GI): Soft to palpation and nontender : Other: vance in place draining punch colored urine mild left CVAT Neuro: General: patient oriented x3, moves all extremities and CN's II-XI intact bilaterally Extrem: General: Yes no pedal edema Objective Data Active Medications Acetaminophen (Acetaminophen 325 Mg Tablet) 650 mg PO Q6H PRN PRN Reason: Pain, Mild (Pain Scale 1-3) Last Admin: 05/26/23 20:31 Dose: 650 mg Documented By: REENAQC Albuterol Sulfate (Albuterol Sulfate (0.083%) 2.5 Mg/3 Ml Vial.Neb) 2.5 mg INHALE QID PRN PRN Reason: Wheezing Last Admin: 05/26/23 17:48 Dose: 2.5 mg Documented By: ROMY Albuterol Sulfate (Albuterol Sulfate 90 Mcg 8 Gm Inhaler) 2 puff INHALE Q4H PRN PRN Reason: Wheezing Atorvastatin Calcium (Atorvastatin Calcium 80 Mg Tablet) 80 mg PO DAILY [facility] Last Admin: 05/29/23 07:31 Dose: 80 mg Documented By: JAYY Clopidogrel Bisulfate (Clopidogrel Bisulfate 75 Mg Tablet) 75 mg PO DAILY [facility] Last Admin: 05/29/23 07:32 Dose: 75 mg Documented By: JAYY Dextrose (Dextrose 50 % 25 Gm/50 Ml Syringe) 25 gm IVPUSH Q15M PRN; Protocol PRN Reason: per Hypoglycemia Standing Ord. Docusate Sodium (Docusate Sodium 100 Mg Capsule) 100 mg PO DAILY PRN PRN Reason: Constipation Docusate Sodium (Docusate Sodium 100 Mg Capsule) 100 mg PO BID [facility] Last Admin: 05/29/23 07:33 Dose: 100 mg Documented By: JAYY Famotidine (Famotidine 20 Mg Tablet) 20 mg PO BID@0630,1630 [facility] Last Admin: 05/29/23 06:06 Dose: 20 mg Documented By: ALIDA Fentanyl (Fentanyl Citrate/Pf 100 Mcg/2 Ml Vial) 25 mcg IVPUSH Q5M PRN; Protocol PRN Reason: Pain, Moderate(Pain Scale 4-6) Ferrous Sulfate (Ferrous Sulfate 324 Mg Tablet.Dr) 324 mg PO Q48H [facility] Last Admin: 05/28/23 08:23 Dose: 324 mg Documented By: JAYY Fluticasone Propionate (Fluticasone Propionate Nasal 16 Gm [place]) 1 spray NOSTRIL-B DAILY PRN PRN Reason: Allergy Symptoms Fluticasone/Vilanterol (Fluticasone/Vilanterol 100/25 Blst.W.Dev) 1 puff INHALE RDAILY [facility] Last Admin: 05/29/23 07:53 Dose: Not Given Documented By: ANUPAM Non-Admin Reason: Patient Refused Furosemide (Furosemide 40 Mg Tablet) 40 mg PO DAILY [facility]; Protocol Last Admin: 05/29/23 07:31 Dose: 40 mg Documented By: JAYY Glucose (Glucose Gel 15 Gm Gel..Gram.) 15 gm PO Q15M PRN; Protocol PRN Reason: per Hypoglycemia Standing Ord. Promethazine HCl 12.5 mg/ (Sodium Chloride) 50.5 mls @ 202 mls/hr IV ONCE PRN PRN Reason: Nausea and Vomiting Lactated Ringer's (Lr) 1,000 mls @ 100 mls/hr IVCONT .Q10H [facility] Stop: 05/29/23 17:14 Last Admin: 05/29/23 07:34 Dose: 100 mls/hr Documented By: JAYY Insulin Human Lispro (Insulin Lispro 100 Unit/Ml 3 Ml Vial) 0 unit SUBCUT QIDACHS [facility]; Protocol Last Admin: 05/29/23 11:34 Dose: 4 unit Documented By: JAYY Lidocaine (Lidocaine 4 % Patch Adh..Patch) 1 patch TRANSDERMA DAILY PRN PRN Reason: Pain (Scale Score 1-3) Loratadine (Loratadine 10 Mg Tablet) 10 mg PO DAILY [facility] Last Admin: 05/29/23 07:32 Dose: 10 mg Documented By: JAYY Metoprolol Succinate (Metoprolol Succinate Er 50 Mg Tab.Er.24h) 50 mg PO DAILY [facility]; Protocol Last Admin: 05/29/23 07:32 Dose: 50 mg Documented By: JAYY Mirabegron (Mirabegron 50 Mg Tab.Er.24h) 50 mg PO DAILY [facility] Last Admin: 05/29/23 07:31 Dose: 50 mg Documented By: JAYY Morphine Sulfate (Morphine Sulfate 4 Mg/Ml Cartridge) 2 mg IVPUSH Q4H PRN; Protocol PRN Reason: Pain, Severe (Pain Scale 7-10) Last Admin: 05/29/23 07:28 Dose: 2 mg Documented By: JAYY Ondansetron HCl (Ondansetron Hcl 4 Mg/2 Ml Vial) 4 mg IVPUSH Q8H PRN PRN Reason: Nausea and Vomiting Ondansetron HCl (Ondansetron Hcl 4 Mg/2 Ml Vial) 4 mg IVPUSH ONCE PRN PRN Reason: Nausea and Vomiting Oxycodone HCl (Oxycodone Hcl Immed Release 5 Mg Tablet) 5 mg PO Q6H PRN PRN Reason: Pain, Moderate(Pain Scale 4-6) Last Admin: 05/28/23 08:30 Dose: 5 mg Documented By: JAYY Comments: remember medicating pt missed scan Pharmacy Consult (Consult Rx Perform Med Rec) 1 each MISCELLANE ONCE PRN PRN Reason: Consult order Polyethylene Glycol (Polyethylene Glycol 3350 17 Gm Powd.Pack) 17 gm PO DAILY [facility] Last Admin: 05/29/23 07:31 Dose: 17 gm Documented By: JAYY Pyridoxine HCl (Pyridoxine Hcl (Vitamin B6) 50 Mg Tablet) 100 mg PO DAILY [facility] Last Admin: 05/29/23 07:32 Dose: 100 mg Documented By: JAYY Senna (Sennosides 8.6 Mg Tablet) 8.6 mg PO BID [facility] Last Admin: 05/29/23 07:32 Dose: 8.6 mg Documented By: JAYY Simethicone (Simethicone 80 Mg Tab.Chew) 160 mg PO QID PRN PRN Reason: Indigestion Sodium Chloride (0.9 % Sodium Chloride Flush 3 Ml Syringe) 3 ml IVFLUSH QSHIFT [facility] Last Admin: 05/29/23 07:41 Dose: 3 ml Documented By: JAYY Labs 05/26/23 05:05 05/29/23 05:20 Labs: Laboratory Results - last 24 hr 05/28/23 05/28/23 05/29/23 18:19 20:16 05:20 Anion Gap 13 Estim Creat Clear Calc 22.3 Estimated GFR 23 POC Glucose 124 H 210 H Random Glucose 125 H Calcium 9.9 05/29/23 05/29/23 07:18 11:04 Anion Gap Estim Creat Clear Calc Estimated GFR POC Glucose 128 H 203 H Random Glucose Calcium Assessment and Plan (1) Obstructive uropathy: Status: Acute (2) Acute kidney failure: Status: Acute (3) UPJ obstruction, acquired: Status: Acute Plan 78 year old female with history of noninsulin dependent type 2 diabetes, htn, asthma/copd overlap, chronic atrial fibrillation anticoagulated with eliquis, history etoh abuse, CHF, history NSTEMI, and history nephrolithiasis?admitted for further management of obstructive uropathy with acute kidney injury. Acute kidney injury due to obstructive uropathy of right UPJ UA, UCx negative CT with finding of possible vessel crossing UPJ but unable to have CT with contrast due to ORION Vance placed but repeat CT with persistent right hydro - s/p right stent placement 05/[address] cruz - obstruction likely from scarring from previous kidney stones SCr sown slightly to 2.07, Baseline .8-1.1 hold losartan, lasix for ORION follow renal function hematuria r/t urological procedure/stent placement follow CBC Eliquis on hold Chronic atrial fibrillation-rate controlled Hold eliquis until after stent placement, resume when safe from urological perspective/hematuria improves continue rate control medications HFpEF no acute exacerbation hold po lasix for orion Chronic normocytic anemia H/H baseline, above transfusion threshold Asthma/COPD overlap no acute exacerbation continue home inhalers HTN Hold losartan, lasix in setting of ORION bp with some high readings resume losartan when renal function improves Continue addl home meds DM continue SSI, POCs, ada diet metformin on hold DVT prophylaxis- mechanical devices . eliquis currently on hold for stent placement Attending Dr. Higginbotham Full code continued hospital stay for management of obstructive uropathy requiring expert consultation and stent placement Time Spent With Patient Time: Total time managing care of this patient today ____ minutes. Quality Stroke Does the patient have a stroke diagnosis?: No VTE Prior VTE?: No VTE Risk Level:: Medical - moderate - high VTE Device Contraindication: N/A - Device Ordered VTE Drug Contraindication: Treatment Not Indicated
--- NOTE | 2023-05-29 13:53 | MHC.CM.PN ---
per rounds stents place possible dc for pt sat plan [facility] home
--- NOTE | 2023-05-29 14:21 | PC.NURSE ---
Increase hematuria from start of shift. Dr Tellez and Loan Askew made aware. plavix now on hold.
[2023-05-29 15:03] VITALS: BP 135/72; PULSE 86; RESP 16; TEMP 36.5; O2SAT 100
[2023-05-29 16:14] VITALS: O2SAT 96
[2023-05-29 16:29] LABS: Glucose, Whole Blood 216 mg/dL (60-115)
[2023-05-29] MEDS: oxyCODONE HCl Immed Release 5 MG TABLET PO (17:21)
[2023-05-29 19:33] VITALS: BP 130/70; PULSE 82; RESP 17; TEMP 36.1; O2SAT 97
[2023-05-29 20:35] LABS: Glucose, Whole Blood 202 mg/dL (60-115)
[2023-05-29] MEDS: Acetaminophen 325 MG TABLET 650 MG PO (21:20)
[2023-05-29 23:29] VITALS: BP 132/70; PULSE 83; RESP 18; TEMP 36.4; O2SAT 97
[2023-05-30] MEDS: Famotidine 20 MG TABLET PO ×2 (05:54→17:19)
[2023-05-30 05:55] LABS: Hematocrit 30.1 % (37.0-47.0); Hemoglobin 9.3 g/dl (12.0-16.0); Mean Corpuscular HGB Conc 30.9 g/dl (31.0-35.0); Mean Corpuscular Hemoglobin 26.1 pg (27.0-33.0); Mean Corpuscular Volume 84.6 fL (80.0-98.0); Mean Platelet Volume 10.3 fL (9.4-12.3); Platelet Count 229 X10*3/uL (160-400); Red Blood Count 3.56 X10*6/uL (4.20-5.50); Red Cell Distribution Width 14.1 % (11.0-16.0)
[2023-05-30] MEDS: oxyCODONE HCl Immed Release 5 MG TABLET PO (05:59)
[2023-05-30 06:20] LABS: Anion Gap 12 (12-20); Blood Urea Nitrogen 40 mg/dL (9-16); Carbon Dioxide 24 mmol/L (22-29); Chloride 108 mmol/L (96-108); Creatinine Clr Calc Pharmacy 21.3; Estimated Glomerular Filt Rate 22; Glucose Random 147 mg/dL (60-115); Potassium 4.4 mmol/L (3.3-5.1); Sodium 140 mmol/L (135-145)
[2023-05-30 07:41] VITALS: BP 158/79; PULSE 81; RESP 18; TEMP 36.4; O2SAT 96
[2023-05-30 07:42] VITALS: PULSE 79; RESP 18; O2SAT 97
[2023-05-30] MEDS: Fluticasone/Vilanterol 100/25 BLST.W.DEV 1 PUFF INHALE (07:42)
[2023-05-30 07:52] LABS: Glucose, Whole Blood 133 mg/dL (60-115)
--- NOTE | 2023-05-30 07:54 | P.PNIM_ITS ---
Subjective Subjective Date of Service: 05/30/23 Interval History: seen and examined this morning follow up for obstructive uropathy, RENATO s/p right stent placement no abdominal pain, fever or chills bladder pain Review of Systems Review of Systems: Yes all other systems are reviewed and are negative Constitutional Constitutional: Denies chills and Denies fever(s) ENT Ears, Nose, Mouth, and Throat: Denies dizziness Cardiovascular Cardiovascular: Denies chest pain, Denies palpitations and Denies dyspnea Respiratory Respiratory: Denies cough and Denies dyspnea Neurologic Neurologic: Denies dizziness Endocrine Endocrine: Denies palpitations Physical Exam Vital Signs: Vital Signs: Last Vital Signs Temp 97.5 F 05/30/23 07:41 Pulse 79 05/30/23 07:42 Resp 18 05/30/23 07:42 BP 158/79 H 05/30/23 07:41 Pulse Ox 96 05/30/23 07:41 O2 Del Method Room Air 05/30/23 07:41 O2 Flow Rate 2 05/28/23 18:11 BMI result Body Mass Index 34.3 Appearing in no acute distress lung sounds are clear to auscultation heart regular rate rhythm, clear S1, S2 positive bowel sounds, abdomen is soft, nontender neuro patient is alert x3, no focal deficits Hematuria in vance Objective Data Active Medications Acetaminophen (Acetaminophen 325 Mg Tablet) 650 mg PO Q6H PRN PRN Reason: Pain, Mild (Pain Scale 1-3) Last Admin: 05/29/23 21:20 Dose: 650 mg Documented By: MICHELLE Albuterol Sulfate (Albuterol Sulfate (0.083%) 2.5 Mg/3 Ml Vial.Neb) 2.5 mg INHALE QID PRN PRN Reason: Wheezing Last Admin: 05/26/23 17:48 Dose: 2.5 mg Documented By: ROMY Albuterol Sulfate (Albuterol Sulfate 90 Mcg 8 Gm Inhaler) 2 puff INHALE Q4H PRN PRN Reason: Wheezing Atorvastatin Calcium (Atorvastatin Calcium 80 Mg Tablet) 80 mg PO DAILY [facility] Last Admin: 05/29/23 07:31 Dose: 80 mg Documented By: JAYY Clopidogrel Bisulfate (Clopidogrel Bisulfate 75 Mg Tablet) 75 mg PO DAILY [facility] Last Admin: 05/29/23 07:32 Dose: 75 mg Documented By: JAYY Dextrose (Dextrose 50 % 25 Gm/50 Ml Syringe) 25 gm IVPUSH Q15M PRN; Protocol PRN Reason: per Hypoglycemia Standing Ord. Diphenhydramine HCl (Diphenhydramine Hcl 25 Mg Capsule) 50 mg PO BEDTIME PRN PRN Reason: Itching Docusate Sodium (Docusate Sodium 100 Mg Capsule) 100 mg PO DAILY PRN PRN Reason: Constipation Docusate Sodium (Docusate Sodium 100 Mg Capsule) 100 mg PO BID [facility] Last Admin: 05/29/23 20:48 Dose: 100 mg Documented By: MICHELLE Famotidine (Famotidine 20 Mg Tablet) 20 mg PO BID@0630,1630 [facility] Last Admin: 05/30/23 05:54 Dose: 20 mg Documented By: JOANNE Ferrous Sulfate (Ferrous Sulfate 324 Mg Tablet.Dr) 324 mg PO Q48H [facility] Last Admin: 05/28/23 08:23 Dose: 324 mg Documented By: JAYY Fluticasone Propionate (Fluticasone Propionate Nasal 16 Gm [place]) 1 spray NOSTRIL-B DAILY PRN PRN Reason: Allergy Symptoms Fluticasone/Vilanterol (Fluticasone/Vilanterol 100/25 Blst.W.Dev) 1 puff INHALE RDAILY [facility] Last Admin: 05/30/23 07:42 Dose: 1 puff Documented By: ANUPAM Furosemide (Furosemide 40 Mg Tablet) 40 mg PO DAILY [facility]; Protocol Last Admin: 05/29/23 07:31 Dose: 40 mg Documented By: JAYY Glucose (Glucose Gel 15 Gm Gel..Gram.) 15 gm PO Q15M PRN; Protocol PRN Reason: per Hypoglycemia Standing Ord. Promethazine HCl 12.5 mg/ (Sodium Chloride) 50.5 mls @ 202 mls/hr IV ONCE PRN PRN Reason: Nausea and Vomiting Insulin Human Lispro (Insulin Lispro 100 Unit/Ml 3 Ml Vial) 0 unit SUBCUT QIDACHS [facility]; Protocol Last Admin: 05/29/23 20:46 Dose: 4 unit Documented By: MICHELLE Lidocaine (Lidocaine 4 % Patch Adh..Patch) 1 patch TRANSDERMA DAILY PRN PRN Reason: Pain (Scale Score 1-3) Loratadine (Loratadine 10 Mg Tablet) 10 mg PO DAILY [facility] Last Admin: 05/29/23 07:32 Dose: 10 mg Documented By: JAYY Metoprolol Succinate (Metoprolol Succinate Er 50 Mg Tab.Er.24h) 50 mg PO DAILY [facility]; Protocol Last Admin: 05/29/23 07:32 Dose: 50 mg Documented By: JAYY Mirabegron (Mirabegron 50 Mg Tab.Er.24h) 50 mg PO DAILY [facility] Last Admin: 05/29/23 07:31 Dose: 50 mg Documented By: JAYY Morphine Sulfate (Morphine Sulfate 4 Mg/Ml Cartridge) 2 mg IVPUSH Q4H PRN; Protocol PRN Reason: Pain, Severe (Pain Scale 7-10) Last Admin: 05/29/23 07:28 Dose: 2 mg Documented By: JAYY Ondansetron HCl (Ondansetron Hcl 4 Mg/2 Ml Vial) 4 mg IVPUSH Q8H PRN PRN Reason: Nausea and Vomiting Ondansetron HCl (Ondansetron Hcl 4 Mg/2 Ml Vial) 4 mg IVPUSH ONCE PRN PRN Reason: Nausea and Vomiting Oxycodone HCl (Oxycodone Hcl Immed Release 5 Mg Tablet) 5 mg PO Q6H PRN PRN Reason: Pain, Moderate(Pain Scale 4-6) Last Admin: 05/30/23 05:59 Dose: 5 mg Documented By: JOANNE Pharmacy Consult (Consult Rx Perform Med Rec) 1 each MISCELLANE ONCE PRN PRN Reason: Consult order Polyethylene Glycol (Polyethylene Glycol 3350 17 Gm Powd.Pack) 17 gm PO DAILY [facility] Last Admin: 05/29/23 07:31 Dose: 17 gm Documented By: JAYY Pyridoxine HCl (Pyridoxine Hcl (Vitamin B6) 50 Mg Tablet) 100 mg PO DAILY [facility] Last Admin: 05/29/23 07:32 Dose: 100 mg Documented By: JAYY Senna (Sennosides 8.6 Mg Tablet) 8.6 mg PO BID [facility] Last Admin: 05/29/23 20:46 Dose: 8.6 mg Documented By: MICHELLE Simethicone (Simethicone 80 Mg Tab.Chew) 160 mg PO QID PRN PRN Reason: Indigestion Sodium Chloride (0.9 % Sodium Chloride Flush 3 Ml Syringe) 3 ml IVFLUSH QSHIFT [facility] Last Admin: 05/29/23 23:57 Dose: 3 ml Documented By: JOANNE Labs 05/30/23 05:04 05/30/23 05:04 Labs: Laboratory Results - last 24 hr 05/29/23 05/29/23 05/29/23 11:04 16:25 20:20 MCV MCH MCHC RDW Plt Count MPV Absolute Nucleated RBC Nucleated RBC % (auto) Anion Gap Estim Creat Clear Calc Estimated GFR POC Glucose 203 H 216 H 202 H Random Glucose Calcium 05/30/23 05/30/23 05/30/23 05:04 05:04 07:44 MCV 84.6 MCH 26.1 L MCHC 30.9 L RDW 14.1 Plt Count 229 MPV 10.3 Absolute Nucleated RBC 0.000 Nucleated RBC % (auto) 0.0 Anion Gap 12 Estim Creat Clear Calc 21.3 Estimated GFR 22 POC Glucose 133 H Random Glucose 147 H Calcium 9.0 D Assessment and Plan (1) Obstructive uropathy: Status: Acute (2) Acute kidney failure: Status: Acute (3) UPJ obstruction, acquired: Status: Acute Plan 78 year old female with history of noninsulin dependent type 2 diabetes, htn, asthma/copd overlap, chronic atrial fibrillation anticoagulated with eliquis, history etoh abuse, CHF, history NSTEMI, and history nephrolithiasis?admitted for further management of obstructive uropathy with acute kidney injury. Acute kidney injury due to obstructive uropathy of right UPJ creatinine 2.17 today UA, UCx negative CT with finding of possible vessel crossing UPJ but unable to have CT with contrast due to RENATO Vance placed but repeat CT with persistent right hydro - s/p right stent placement 05/[address] cruz - obstruction likely from scarring from previous kidney stones hold losartan, lasix for RENATO follow renal function hematuria persistent r/t urological procedure/stent placement follow CBC Eliquis on hold Chronic atrial fibrillation-rate controlled Hold eliquis until after stent placement, resume when safe from urological perspective/hematuria improves continue rate control medications HFpEF no acute exacerbation hold po lasix for renato Chronic normocytic anemia H/H baseline, above transfusion threshold Asthma/COPD overlap no acute exacerbation continue home inhalers HTN Hold losartan, lasix in setting of RENATO bp with some high readings resume losartan when renal function improves DM continue SSI, POCs, ada diet metformin on hold DVT prophylaxis- mechanical devices . eliquis currently on hold for stent placement Attending Dr. Ellis Full code Disposition. Patient still with hematuria and elevated creatinine, no plan for discharge continued hospital stay for management of obstructive uropathy requiring expert consultation and stent placement Time Spent With Patient Time: Total time managing care of this patient today ____ minutes. Quality Stroke Does the patient have a stroke diagnosis?: No VTE Prior VTE?: No VTE Risk Level:: Medical - moderate - high VTE Device Contraindication: N/A - Device Ordered VTE Drug Contraindication: Treatment Not Indicated
[2023-05-30] MEDS: polyethylene glycoL 3350 17 GM POWD.PACK PO (08:52)
[2023-05-30] MEDS: Loratadine 10 MG TABLET PO (08:52)
[2023-05-30] MEDS: Metoprolol Succinate ER 50 MG TAB.ER.24H PO (08:52)
[2023-05-30] MEDS: Docusate Sodium 100 MG CAPSULE PO ×2 (08:52→21:26)
[2023-05-30] MEDS: Sennosides 8.6 MG TABLET PO ×2 (08:52→21:26)
[2023-05-30] MEDS: Mirabegron 50 MG TAB.ER.24H PO (08:52)
[2023-05-30] MEDS: Furosemide 40 MG TABLET PO (08:52)
[2023-05-30] MEDS: Atorvastatin Calcium 80 MG TABLET PO (08:52)
[2023-05-30] MEDS: Ferrous Sulfate 324 MG TABLET.DR PO (08:52)
[2023-05-30] MEDS: Pyridoxine HCl (Vitamin B6) 50 MG TABLET 100 MG PO (08:53)
[2023-05-30] MEDS: Simethicone 80 MG TAB.CHEW 160 MG PO (08:53)
[2023-05-30] MEDS: 0.9 % Sodium Chloride Flush 3 ML SYRINGE IVFLUSH ×3 (08:53→21:27)
[2023-05-30] MEDS: Mineral OiL enema 133 ML ENEMA PR (09:56)
[2023-05-30 11:38] LABS: Glucose, Whole Blood 135 mg/dL (60-115)
[2023-05-30 15:34] VITALS: BP 164/76; PULSE 75; RESP 18; TEMP 36.2; O2SAT 97
[2023-05-30 16:29] LABS: Glucose, Whole Blood 147 mg/dL (60-115)
[2023-05-30 19:06] VITALS: BP 133/63; PULSE 84; RESP 16; TEMP 36.8; O2SAT 97
[2023-05-30 20:24] LABS: Glucose, Whole Blood 228 mg/dL (60-115)
[2023-05-30] MEDS: Insulin Lispro 100 UNIT/ML 3 ML VIAL SUBCUT (21:26)
[2023-05-30] MEDS: Acetaminophen 325 MG TABLET 650 MG PO (23:14)
[2023-05-30 23:45] VITALS: BP 136/95; PULSE 80; RESP 16; TEMP 36.7; O2SAT 98
[2023-05-31] MEDS: Famotidine 20 MG TABLET PO ×2 (06:15→16:09)
[2023-05-31] MEDS: Lidocaine 4 % Patch ADH..PATCH 1 PATCH TRANSDERMA (06:24)
[2023-05-31 07:10] VITALS: BP 155/69; PULSE 87; RESP 16; TEMP 36.2; O2SAT 96
[2023-05-31 07:19] LABS: Glucose, Whole Blood 123 mg/dL (60-115)
[2023-05-31 07:34] VITALS: PULSE 77; RESP 16; O2SAT 96
[2023-05-31] MEDS: Fluticasone/Vilanterol 100/25 BLST.W.DEV 1 PUFF INHALE (07:34)
[2023-05-31] MEDS: Pyridoxine HCl (Vitamin B6) 50 MG TABLET 100 MG PO (07:50)
[2023-05-31] MEDS: oxyCODONE HCl Immed Release 5 MG TABLET PO (07:50)
[2023-05-31] MEDS: polyethylene glycoL 3350 17 GM POWD.PACK PO (07:50)
[2023-05-31] MEDS: Sennosides 8.6 MG TABLET PO ×2 (07:51→20:47)
[2023-05-31] MEDS: Atorvastatin Calcium 80 MG TABLET PO (07:51)
[2023-05-31] MEDS: Acetaminophen 325 MG TABLET 650 MG PO (07:51)
[2023-05-31] MEDS: Mirabegron 50 MG TAB.ER.24H PO (07:51)
[2023-05-31] MEDS: Loratadine 10 MG TABLET PO (07:51)
[2023-05-31] MEDS: 0.9 % Sodium Chloride Flush 3 ML SYRINGE IVFLUSH ×3 (07:51→20:47)
[2023-05-31] MEDS: Docusate Sodium 100 MG CAPSULE PO ×3 (07:51→20:47)
[2023-05-31] MEDS: Metoprolol Succinate ER 50 MG TAB.ER.24H PO (07:51)
[2023-05-31 08:33] LABS: Hematocrit 29.4 % (37.0-47.0); Hemoglobin 9.1 g/dl (12.0-16.0)
--- NOTE | 2023-05-31 09:51 | HO.PM.IMPN ---
Subjective Subjective Date of Service: 05/31/23 Interval History: seen and examined this morning follow up for obstructive uropathy, ORION s/p right stent placement no abdominal pain, fever or chills bladder pain Review of Systems Review of Systems: Yes all other systems are reviewed and are negative Constitutional Constitutional: Denies chills and Denies fever(s) ENT Ears, Nose, Mouth, and Throat: Denies dizziness Cardiovascular Cardiovascular: Denies chest pain, Denies palpitations and Denies dyspnea Respiratory Respiratory: Denies cough and Denies dyspnea Neurologic Neurologic: Denies dizziness Endocrine Endocrine: Denies palpitations Physical Exam Vital Signs: Vital Signs: Last Vital Signs Temp 97.2 F 05/31/23 07:10 Pulse 77 05/31/23 07:34 Resp 16 05/31/23 07:34 BP 155/69 H 05/31/23 07:10 Pulse Ox 96 05/31/23 07:10 O2 Del Method Room Air 05/31/23 07:10 O2 Flow Rate 2 05/28/23 18:11 BMI result Body Mass Index 34.3 Appearing in no acute distress lung sounds are clear to auscultation heart regular rate rhythm, clear S1, S2 positive bowel sounds, abdomen is soft, nontender neuro patient is alert x3, no focal deficits Hematuria with vance catheter Objective Data Active Medications Acetaminophen (Acetaminophen 325 Mg Tablet) 650 mg PO Q6H PRN PRN Reason: Pain, Mild (Pain Scale 1-3) Last Admin: 05/31/23 07:51 Dose: 650 mg Documented By: FLORENCIO Albuterol Sulfate (Albuterol Sulfate (0.083%) 2.5 Mg/3 Ml Vial.Neb) 2.5 mg INHALE QID PRN PRN Reason: Wheezing Last Admin: 05/26/23 17:48 Dose: 2.5 mg Documented By: ROMY Albuterol Sulfate (Albuterol Sulfate 90 Mcg 8 Gm Inhaler) 2 puff INHALE Q4H PRN PRN Reason: Wheezing Atorvastatin Calcium (Atorvastatin Calcium 80 Mg Tablet) 80 mg PO DAILY [facility] Last Admin: 05/31/23 07:51 Dose: 80 mg Documented By: CATRACHOEMA Clopidogrel Bisulfate (Clopidogrel Bisulfate 75 Mg Tablet) 75 mg PO DAILY [facility] Last Admin: 05/29/23 07:32 Dose: 75 mg Documented By: JAYY Dextrose (Dextrose 50 % 25 Gm/50 Ml Syringe) 25 gm IVPUSH Q15M PRN; Protocol PRN Reason: per Hypoglycemia Standing Ord. Diphenhydramine HCl (Diphenhydramine Hcl 25 Mg Capsule) 50 mg PO BEDTIME PRN PRN Reason: Itching Docusate Sodium (Docusate Sodium 100 Mg Capsule) 100 mg PO DAILY PRN PRN Reason: Constipation Last Admin: 05/31/23 07:51 Dose: 100 mg Documented By: FLORENCIO Docusate Sodium (Docusate Sodium 100 Mg Capsule) 100 mg PO BID [facility] Last Admin: 05/31/23 07:51 Dose: 100 mg Documented By: FLORENCIO Famotidine (Famotidine 20 Mg Tablet) 20 mg PO BID@0630,1630 [facility] Last Admin: 05/31/23 06:15 Dose: 20 mg Documented By: LYSJessy Ferrous Sulfate (Ferrous Sulfate 324 Mg Tablet.Dr) 324 mg PO Q48H [facility] Last Admin: 05/30/23 08:52 Dose: 324 mg Documented By: FLORENCIO Fluticasone Propionate (Fluticasone Propionate Nasal 16 Gm [place]) 1 spray NOSTRIL-B DAILY PRN PRN Reason: Allergy Symptoms Fluticasone/Vilanterol (Fluticasone/Vilanterol 100/25 Blst.W.Dev) 1 puff INHALE RDAILY [facility] Last Admin: 05/31/23 07:34 Dose: 1 puff Documented By: BLASCL Furosemide (Furosemide 40 Mg Tablet) 40 mg PO DAILY [facility]; Protocol Last Admin: 05/31/23 07:48 Dose: Not Given Documented By: FLORENCIO Non-Admin Reason: Physician Held Med Glucose (Glucose Gel 15 Gm Gel..Gram.) 15 gm PO Q15M PRN; Protocol PRN Reason: per Hypoglycemia Standing Ord. Promethazine HCl 12.5 mg/ (Sodium Chloride) 50.5 mls @ 202 mls/hr IV ONCE PRN PRN Reason: Nausea and Vomiting Insulin Human Lispro (Insulin Lispro 100 Unit/Ml 3 Ml Vial) 0 unit SUBCUT QIDACHS [facility]; Protocol Last Admin: 05/31/23 07:22 Dose: Not Given Documented By: FLORENCIO Non-Admin Reason: No Insulin Coverage Lidocaine (Lidocaine 4 % Patch Adh..Patch) 1 patch TRANSDERMA DAILY PRN PRN Reason: Pain (Scale Score 1-3) Last Admin: 05/31/23 06:24 Dose: 1 patch Documented By: MARINA Loratadine (Loratadine 10 Mg Tablet) 10 mg PO DAILY [facility] Last Admin: 05/31/23 07:51 Dose: 10 mg Documented By: FLORENCIO Metoprolol Succinate (Metoprolol Succinate Er 50 Mg Tab.Er.24h) 50 mg PO DAILY [facility]; Protocol Last Admin: 05/31/23 07:51 Dose: 50 mg Documented By: FLORENCIO Mirabegron (Mirabegron 50 Mg Tab.Er.24h) 50 mg PO DAILY [facility] Last Admin: 05/31/23 07:51 Dose: 50 mg Documented By: FLORENCIO Ondansetron HCl (Ondansetron Hcl 4 Mg/2 Ml Vial) 4 mg IVPUSH Q8H PRN PRN Reason: Nausea and Vomiting Ondansetron HCl (Ondansetron Hcl 4 Mg/2 Ml Vial) 4 mg IVPUSH ONCE PRN PRN Reason: Nausea and Vomiting Oxycodone HCl (Oxycodone Hcl Immed Release 5 Mg Tablet) 5 mg PO Q6H PRN PRN Reason: Pain, Severe (Pain Scale 7-10) Last Admin: 05/31/23 07:50 Dose: 5 mg Documented By: FLORENCIO Pharmacy Consult (Consult Rx Perform Med Rec) 1 each MISCELLANE ONCE PRN PRN Reason: Consult order Polyethylene Glycol (Polyethylene Glycol 3350 17 Gm Powd.Pack) 17 gm PO DAILY [facility] Last Admin: 05/31/23 07:50 Dose: 17 gm Documented By: FLORENCIO Pyridoxine HCl (Pyridoxine Hcl (Vitamin B6) 50 Mg Tablet) 100 mg PO DAILY [facility] Last Admin: 05/31/23 07:50 Dose: 100 mg Documented By: FLORENCIO Senna (Sennosides 8.6 Mg Tablet) 8.6 mg PO BID [facility] Last Admin: 05/31/23 07:51 Dose: 8.6 mg Documented By: FLORENCIO Simethicone (Simethicone 80 Mg Tab.Chew) 160 mg PO QID PRN PRN Reason: Indigestion Last Admin: 05/30/23 08:53 Dose: 160 mg Documented By: CATRACHOEMA Sodium Chloride (0.9 % Sodium Chloride Flush 3 Ml Syringe) 3 ml IVFLUSH QSHIFT [facility] Last Admin: 05/31/23 07:51 Dose: 3 ml Documented By: FLORENCIO Labs 05/31/23 08:04 05/30/23 05:04 Labs: Laboratory Results - last 24 hr 05/30/23 05/30/23 05/30/23 11:34 16:25 20:21 POC Glucose 135 H 147 H 228 H 05/31/23 07:12 POC Glucose 123 H Microbiology Microbiology Results: Microbiology 05/29/23 17:02 Urine Culture - Preliminary Urine Catheterized - Vance Catheter No growth to date. Assessment and Plan (1) Obstructive uropathy: Status: Acute (2) Acute kidney failure: Status: Acute (3) UPJ obstruction, acquired: Status: Acute Plan 78 year old female with history of noninsulin dependent type 2 diabetes, htn, asthma/copd overlap, chronic atrial fibrillation anticoagulated with eliquis, history etoh abuse, CHF, history NSTEMI, and history nephrolithiasis?admitted for further management of obstructive uropathy with acute kidney injury. Acute kidney injury due to obstructive uropathy of right UPJ creatinine 2.17 today UA, UCx negative CT with finding of possible vessel crossing UPJ but unable to have CT with contrast due to ORION Vance placed but repeat CT with persistent right hydro - s/p right stent placement 05/[address] cruz - obstruction likely from scarring from previous kidney stones hold losartan, lasix for ORION follow renal function hematuria persistent r/t urological procedure/stent placement follow CBC Eliquis on hold CBI started Chronic atrial fibrillation-rate controlled Hold eliquis until after stent placement, resume when safe from urological perspective/hematuria improves continue rate control medications HFpEF no acute exacerbation hold po lasix for orion Chronic normocytic anemia H/H baseline, above transfusion threshold Asthma/COPD overlap no acute exacerbation continue home inhalers HTN Hold losartan, lasix in setting of ORION bp with some high readings resume losartan when renal function improves DM continue SSI, POCs, ada diet metformin on hold DVT prophylaxis- mechanical devices . eliquis currently on hold for stent placement Attending Dr. Boone Full code Disposition. Patient still with hematuria and elevated creatinine, no plan for discharge continued hospital stay for management of obstructive uropathy requiring expert consultation and stent placement Time Spent With Patient Time: Total time managing care of this patient today ____ minutes. Quality Stroke Does the patient have a stroke diagnosis?: No VTE Prior VTE?: No VTE Risk Level:: Medical - moderate - high VTE Device Contraindication: N/A - Device Ordered VTE Drug Contraindication: Treatment Not Indicated
[2023-05-31 11:39] LABS: Glucose, Whole Blood 151 mg/dL (60-115)
--- NOTE | 2023-05-31 12:28 | P.PNUR_ITS ---
Subjective Subjective Date of Service: 06/01/23 Interval history: [place] has had multiple admissions due to Hydronephrosis and SCOTT on top of CKD. On this admission CT imaging notable for Right hydro, and pt is s/p right ureteral stent by Dr. Tellez. pinky in place Called today for gross hematuria. Pt denies pain. Recommend CBI for now no obvious clots at this time Physical Exam Vital Signs: Vital Signs: Last Vital Signs Temp 97.2 F 05/31/23 07:10 Pulse 77 05/31/23 07:34 Resp 16 05/31/23 07:34 BP 155/69 H 05/31/23 07:10 Pulse Ox 96 05/31/23 07:10 O2 Del Method Room Air 05/31/23 07:10 O2 Flow Rate 2 05/28/23 18:11 BMI result Body Mass Index 34.3 Const: General: cooperative, healthy appearing and no acute distress Orientation/consciousness: patient oriented x3 HEENT: Head: Yes normal to inspection, Yes normocephalic and Yes atraumatic Eyes: Conjunctivae: conjunctivae normal Neck: Neck: Yes normal visual inspection and Yes trachea midline Chest: Chest palpation & inspection: normal inspection of the chest Resp: Effort & Inspection: normal respiratory effort Cardio: Rate: regular rate GI: Inspection: Yes normal to inspection Palpation (GI): Soft to palpation Neuro: General: patient oriented x3 Psych: Appearance: grossly normal Urology Results Labs 05/31/23 08:04 05/30/23 05:04 Labs: Laboratory Results - last 24 hr 05/30/23 05/30/23 05/31/23 16:25 20:21 07:12 Hgb Hct POC Glucose 147 H 228 H 123 H 05/31/23 05/31/23 08:04 11:15 Hgb 9.1 L Hct 29.4 L POC Glucose 151 H Progress Note: A&P Assessment and plan (1) Acute kidney failure: Status: Acute (2) Obstructive uropathy: Status: Acute (3) Gross hematuria: Status: Acute Plan Cont pinky HERNANDEZ Time Spent With Patient Time: Total time managing care of this patient today ____ minutes. Progress Note: Quality Stroke Does the patient have a stroke diagnosis?: No
[2023-05-31 15:27] VITALS: BP 131/81; PULSE 78; RESP 18; TEMP 36.9; O2SAT 97
[2023-05-31] MEDS: Mineral OiL enema 133 ML ENEMA PR (16:09)
[2023-05-31 16:17] LABS: Glucose, Whole Blood 183 mg/dL (60-115)
[2023-05-31] MEDS: Insulin Lispro 100 UNIT/ML 3 ML VIAL SUBCUT ×2 (16:39→20:47)
[2023-05-31 19:03] VITALS: BP 152/75; PULSE 80; RESP 16; TEMP 37; O2SAT 98
[2023-05-31 20:27] LABS: Glucose, Whole Blood 240 mg/dL (60-115)
[2023-06-01] MEDS: Acetaminophen 325 MG TABLET 650 MG PO ×2 (01:00→22:32)
[2023-06-01] MEDS: oxyCODONE HCl Immed Release 5 MG TABLET PO ×3 (01:00→22:32)
[2023-06-01 04:00] VITALS: BP 131/92; PULSE 58; RESP 16; TEMP 36; O2SAT 98
[2023-06-01 06:15] LABS: MANUAL DIFF FLAG NO
[2023-06-01 06:26] LABS: Basophils Absolute Auto 0.1 X10*3/uL (0.0-0.2); Basophils Percent Auto 0.8 % (0-2); Eosinophils Absolute Auto 0.4 X10*3/uL (0.0-0.4); Eosinophils Percent Auto 5.6 % (0-4); Hematocrit 29.5 % (37.0-47.0); Hemoglobin 9.3 g/dl (12.0-16.0); Imm Gran Abs Auto 0.03 X10*3/uL (0.00-0.03); Imm Gran Pct Auto 0.5 % (0.0-0.4); Lymphocytes Absolute Auto 1.4 X10*3/uL (1.2-4.9); Lymphocytes Percent Auto 20.6 % (20-40); Mean Corpuscular HGB Conc 31.5 g/dl (31.0-35.0); Mean Corpuscular Volume 85.5 fL (80.0-98.0); Mean Platelet Volume 10.6 fL (9.4-12.3); Monocytes Absolute Auto 0.8 X10*3/uL (0.1-1.2); Neutrophils Percent Auto 60.5 % (45-73); Platelet Count 247 X10*3/uL (160-400); Red Blood Count 3.45 X10*6/uL (4.20-5.50); Red Cell Distribution Width 14.3 % (11.0-16.0); White Blood Count 6.6 X10*3/uL (4.8-10.8)
[2023-06-01] MEDS: Famotidine 20 MG TABLET PO ×2 (06:28→16:23)
[2023-06-01] MEDS: 0.9 % Sodium Chloride Flush 3 ML SYRINGE IVFLUSH ×3 (07:20→22:04)
[2023-06-01] MEDS: Pyridoxine HCl (Vitamin B6) 50 MG TABLET 100 MG PO (07:28)
[2023-06-01] MEDS: Atorvastatin Calcium 80 MG TABLET PO (07:29)
[2023-06-01] MEDS: Ferrous Sulfate 324 MG TABLET.DR PO (07:29)
[2023-06-01] MEDS: Docusate Sodium 100 MG CAPSULE PO ×2 (07:30→22:03)
[2023-06-01] MEDS: Sennosides 8.6 MG TABLET PO ×2 (07:30→22:04)
[2023-06-01] MEDS: Mirabegron 50 MG TAB.ER.24H PO (07:30)
[2023-06-01] MEDS: polyethylene glycoL 3350 17 GM POWD.PACK PO (07:30)
[2023-06-01] MEDS: Loratadine 10 MG TABLET PO (07:30)
[2023-06-01] MEDS: Furosemide 40 MG TABLET PO (07:30)
[2023-06-01] MEDS: Metoprolol Succinate ER 50 MG TAB.ER.24H PO (07:30)
[2023-06-01 07:35] LABS: Glucose, Whole Blood 144 mg/dL (60-115)
[2023-06-01 07:52] VITALS: BP 142/79; PULSE 86; RESP 16; TEMP 36; O2SAT 97
--- NOTE | 2023-06-01 09:24 | HO.PM.IMPN ---
Subjective Subjective Date of Service: 06/01/23 Interval History: seen and examined this morning follow up for obstructive uropathy, ORION s/p right stent placement no abdominal pain, fever or chills bladder pain Review of Systems Review of Systems: Yes all other systems are reviewed and are negative Constitutional Constitutional: Denies chills and Denies fever(s) ENT Ears, Nose, Mouth, and Throat: Denies dizziness Cardiovascular Cardiovascular: Denies chest pain, Denies palpitations and Denies dyspnea Respiratory Respiratory: Denies cough and Denies dyspnea Neurologic Neurologic: Denies dizziness Endocrine Endocrine: Denies palpitations Physical Exam Vital Signs: Vital Signs: Last Vital Signs Temp 96.8 F 06/01/23 07:52 Pulse 86 06/01/23 07:52 Resp 16 06/01/23 07:52 BP 142/79 H 06/01/23 07:52 Pulse Ox 97 06/01/23 07:52 O2 Del Method Room Air 06/01/23 07:52 O2 Flow Rate 2 05/28/23 18:11 BMI result Body Mass Index 34.3 Appearing in no acute distress lung sounds are clear to auscultation heart regular rate rhythm, clear S1, S2 positive bowel sounds, abdomen is soft, nontender neuro patient is alert x3, no focal deficits Steve hematuria with Johnson catheter Objective Data Active Medications Acetaminophen (Acetaminophen 325 Mg Tablet) 650 mg PO Q6H PRN PRN Reason: Pain, Mild (Pain Scale 1-3) Last Admin: 06/01/23 01:00 Dose: 650 mg Documented By: MARINA Albuterol Sulfate (Albuterol Sulfate (0.083%) 2.5 Mg/3 Ml Vial.Neb) 2.5 mg INHALE QID PRN PRN Reason: Wheezing Last Admin: 05/26/23 17:48 Dose: 2.5 mg Documented By: ROMY Albuterol Sulfate (Albuterol Sulfate 90 Mcg 8 Gm Inhaler) 2 puff INHALE Q4H PRN PRN Reason: Wheezing Atorvastatin Calcium (Atorvastatin Calcium 80 Mg Tablet) 80 mg PO DAILY [facility] Last Admin: 06/01/23 07:29 Dose: 80 mg Documented By: MARLENE Clopidogrel Bisulfate (Clopidogrel Bisulfate 75 Mg Tablet) 75 mg PO DAILY [facility] Last Admin: 05/29/23 07:32 Dose: 75 mg Documented By: JAYY Dextrose (Dextrose 50 % 25 Gm/50 Ml Syringe) 25 gm IVPUSH Q15M PRN; Protocol PRN Reason: per Hypoglycemia Standing Ord. Diphenhydramine HCl (Diphenhydramine Hcl 25 Mg Capsule) 50 mg PO BEDTIME PRN PRN Reason: Itching Docusate Sodium (Docusate Sodium 100 Mg Capsule) 100 mg PO DAILY PRN PRN Reason: Constipation Last Admin: 05/31/23 07:51 Dose: 100 mg Documented By: COTEMA Docusate Sodium (Docusate Sodium 100 Mg Capsule) 100 mg PO BID [facility] Last Admin: 06/01/23 07:30 Dose: 100 mg Documented By: MARLENE Famotidine (Famotidine 20 Mg Tablet) 20 mg PO BID@0630,1630 [facility] Last Admin: 06/01/23 06:28 Dose: 20 mg Documented By: MARINA Ferrous Sulfate (Ferrous Sulfate 324 Mg Tablet.Dr) 324 mg PO Q48H [facility] Last Admin: 06/01/23 07:29 Dose: 324 mg Documented By: MARLENE Fluticasone Propionate (Fluticasone Propionate Nasal 16 Gm [place]) 1 spray NOSTRIL-B DAILY PRN PRN Reason: Allergy Symptoms Fluticasone/Vilanterol (Fluticasone/Vilanterol 100/25 Blst.W.Dev) 1 puff INHALE RDAILY [facility] Last Admin: 06/01/23 07:56 Dose: Not Given Documented By: ANUPAM Non-Admin Reason: Patient Refused Furosemide (Furosemide 40 Mg Tablet) 40 mg PO DAILY [facility]; Protocol Last Admin: 06/01/23 07:30 Dose: 40 mg Documented By: MARLENE Glucose (Glucose Gel 15 Gm Gel..Gram.) 15 gm PO Q15M PRN; Protocol PRN Reason: per Hypoglycemia Standing Ord. Promethazine HCl 12.5 mg/ (Sodium Chloride) 50.5 mls @ 202 mls/hr IV ONCE PRN PRN Reason: Nausea and Vomiting Insulin Human Lispro (Insulin Lispro 100 Unit/Ml 3 Ml Vial) 0 unit SUBCUT QIDACHS [facility]; Protocol Last Admin: 06/01/23 07:20 Dose: Not Given Documented By: MARLENE Non-Admin Reason: No Insulin Coverage Lidocaine (Lidocaine 4 % Patch Adh..Patch) 1 patch TRANSDERMA DAILY PRN PRN Reason: Pain (Scale Score 1-3) Last Admin: 05/31/23 06:24 Dose: 1 patch Documented By: MARINA Loratadine (Loratadine 10 Mg Tablet) 10 mg PO DAILY [facility] Last Admin: 06/01/23 07:30 Dose: 10 mg Documented By: MARLENE Metoprolol Succinate (Metoprolol Succinate Er 50 Mg Tab.Er.24h) 50 mg PO DAILY [facility]; Protocol Last Admin: 06/01/23 07:30 Dose: 50 mg Documented By: MARLENE Mirabegron (Mirabegron 50 Mg Tab.Er.24h) 50 mg PO DAILY [facility] Last Admin: 06/01/23 07:30 Dose: 50 mg Documented By: MARLENE Ondansetron HCl (Ondansetron Hcl 4 Mg/2 Ml Vial) 4 mg IVPUSH Q8H PRN PRN Reason: Nausea and Vomiting Ondansetron HCl (Ondansetron Hcl 4 Mg/2 Ml Vial) 4 mg IVPUSH ONCE PRN PRN Reason: Nausea and Vomiting Oxycodone HCl (Oxycodone Hcl Immed Release 5 Mg Tablet) 5 mg PO Q6H PRN PRN Reason: Pain, Severe (Pain Scale 7-10) Last Admin: 06/01/23 07:29 Dose: 5 mg Documented By: MARLENE Pharmacy Consult (Consult Rx Perform Med Rec) 1 each MISCELLANE ONCE PRN PRN Reason: Consult order Polyethylene Glycol (Polyethylene Glycol 3350 17 Gm Powd.Pack) 17 gm PO DAILY [facility] Last Admin: 06/01/23 07:30 Dose: 17 gm Documented By: MARLENE Pyridoxine HCl (Pyridoxine Hcl (Vitamin B6) 50 Mg Tablet) 100 mg PO DAILY [facility] Last Admin: 06/01/23 07:28 Dose: 100 mg Documented By: MARLENE Senna (Sennosides 8.6 Mg Tablet) 8.6 mg PO BID [facility] Last Admin: 06/01/23 07:30 Dose: 8.6 mg Documented By: MARLENE Simethicone (Simethicone 80 Mg Tab.Chew) 160 mg PO QID PRN PRN Reason: Indigestion Last Admin: 05/30/23 08:53 Dose: 160 mg Documented By: COTEMA Sodium Chloride (0.9 % Sodium Chloride Flush 3 Ml Syringe) 3 ml IVFLUSH QSHIFT [facility] Last Admin: 06/01/23 07:20 Dose: 3 ml Documented By: MARLENE Labs 06/01/23 05:17 05/30/23 05:04 Labs: Laboratory Results - last 24 hr 05/31/23 05/31/23 05/31/23 11:15 16:09 20:06 MCV MCH MCHC RDW Plt Count MPV Immature Gran % (Auto) Neut % (Auto) Lymph % (Auto) [place] % (Auto) Eos % (Auto) Baso % (Auto) Lymph # (Auto) [place] # (Auto) Eos # (Auto) Baso # (Auto) Abs Immat Gran (auto) Absolute Neuts (auto) Absolute Nucleated RBC Nucleated RBC % (auto) POC Glucose 151 H 183 H 240 H 06/01/23 06/01/23 05:17 07:19 MCV 85.5 MCH 27.0 MCHC 31.5 RDW 14.3 Plt Count 247 MPV 10.6 Immature Gran % (Auto) 0.5 H Neut % (Auto) 60.5 Lymph % (Auto) 20.6 [place] % (Auto) 12.0 H Eos % (Auto) 5.6 H Baso % (Auto) 0.8 Lymph # (Auto) 1.4 [place] # (Auto) 0.8 Eos # (Auto) 0.4 Baso # (Auto) 0.1 Abs Immat Gran (auto) 0.03 Absolute Neuts (auto) 4.0 Absolute Nucleated RBC 0.000 Nucleated RBC % (auto) 0.0 POC Glucose 144 H Microbiology Microbiology Results: Microbiology 05/29/23 17:02 Urine Culture - Final Urine Catheterized - Johnson Catheter No growth. Assessment and Plan (1) Obstructive uropathy: Status: Acute (2) Acute kidney failure: Status: Acute (3) UPJ obstruction, acquired: Status: Acute Plan 78 year old female with history of noninsulin dependent type 2 diabetes, htn, asthma/copd overlap, chronic atrial fibrillation anticoagulated with eliquis, history etoh abuse, CHF, history NSTEMI, and history nephrolithiasis?admitted for further management of obstructive uropathy with acute kidney injury. Acute kidney injury due to obstructive uropathy of right UPJ creatinine 2.17 today UA, UCx negative CT with finding of possible vessel crossing UPJ but unable to have CT with contrast due to ORION Johnson placed but repeat CT with persistent right hydro - s/p right stent placement 05/[address] cruz - obstruction likely from scarring from previous kidney stones follow renal function hematuria persistent r/t urological procedure/stent placement CBC stable Eliquis on hold CBI started Chronic atrial fibrillation-rate controlled Hold eliquis until after stent placement, resume when safe from urological perspective/hematuria improves continue rate control medications HFpEF no acute exacerbation oral lasix Chronic normocytic anemia H/H baseline, above transfusion threshold Asthma/COPD overlap no acute exacerbation continue home inhalers HTN Hold losartan, lasix in setting of ORION DM continue SSI, POCs, ada diet metformin on hold DVT prophylaxis- mechanical devices . eliquis currently on hold for stent placement Attending Dr. Higginbotham Full code Discussed with daughter today and updated continued hospital stay for management hematuria Time Spent With Patient Time: Total time managing care of this patient today ____ minutes. Quality Stroke Does the patient have a stroke diagnosis?: No VTE Prior VTE?: No VTE Risk Level:: Medical - moderate - high VTE Device Contraindication: N/A - Device Ordered VTE Drug Contraindication: Treatment Not Indicated
[2023-06-01 11:17] LABS: Glucose, Whole Blood 151 mg/dL (60-115)
[2023-06-01] MEDS: Insulin Lispro 100 UNIT/ML 3 ML VIAL SUBCUT ×3 (11:43→22:04)
--- NOTE | 2023-06-01 12:39 | MHC.CM.PN ---
pt not ready for dc has hematuria plan remand home
[2023-06-01 15:26] VITALS: BP 128/69; PULSE 68; RESP 18; TEMP 36.4; O2SAT 98
[2023-06-01 15:45] LABS: Glucose, Whole Blood 201 mg/dL (60-115)
[2023-06-01 20:00] VITALS: BP 136/65; PULSE 85; RESP 18; TEMP 36.1; O2SAT 98
[2023-06-01 20:41] LABS: Glucose, Whole Blood 185 mg/dL (60-115)
[2023-06-02 04:00] VITALS: BP 145/79; PULSE 78; RESP 18; TEMP 36; O2SAT 96
[2023-06-02] MEDS: oxyCODONE HCl Immed Release 5 MG TABLET PO ×2 (04:10→12:17)
[2023-06-02] MEDS: Acetaminophen 325 MG TABLET 650 MG PO ×3 (04:11→20:25)
[2023-06-02 05:41] LABS: Hematocrit 27.7 % (37.0-47.0); Hemoglobin 8.6 g/dl (12.0-16.0)
[2023-06-02] MEDS: Famotidine 20 MG TABLET PO ×2 (06:17→16:25)
[2023-06-02 06:38] LABS: Anion Gap 11 (12-20); Blood Urea Nitrogen 46 mg/dL (9-16); Calcium 9.1 mg/dL (8.4-10.2); Carbon Dioxide 27 mmol/L (22-29); Chloride 105 mmol/L (96-108); Creatinine Clr Calc Pharmacy 23.1; Estimated Glomerular Filt Rate 24; Glucose Random 155 mg/dL (60-115); Potassium 3.8 mmol/L (3.3-5.1); Sodium 139 mmol/L (135-145)
[2023-06-02] MEDS: 0.9 % Sodium Chloride Flush 3 ML SYRINGE IVFLUSH ×3 (07:17→20:27)
[2023-06-02 07:26] LABS: Glucose, Whole Blood 146 mg/dL (60-115)
[2023-06-02 07:46] VITALS: BP 158/74; PULSE 83; RESP 16; TEMP 36; O2SAT 96
[2023-06-02] MEDS: Metoprolol Succinate ER 50 MG TAB.ER.24H PO (09:02)
[2023-06-02] MEDS: polyethylene glycoL 3350 17 GM POWD.PACK PO (09:02)
[2023-06-02] MEDS: Mirabegron 50 MG TAB.ER.24H PO (09:02)
[2023-06-02] MEDS: Atorvastatin Calcium 80 MG TABLET PO (09:02)
[2023-06-02] MEDS: Furosemide 40 MG TABLET PO (09:02)
[2023-06-02] MEDS: Pyridoxine HCl (Vitamin B6) 50 MG TABLET 100 MG PO (09:02)
[2023-06-02] MEDS: Sennosides 8.6 MG TABLET PO ×2 (09:02→20:26)
[2023-06-02] MEDS: Loratadine 10 MG TABLET PO (09:03)
[2023-06-02 11:25] LABS: Glucose, Whole Blood 168 mg/dL (60-115)
--- NOTE | 2023-06-02 11:36 | P.PNIM_ITS ---
Subjective Subjective Date of Service: 06/02/23 Interval History: seen and examined this morning follow up for obstructive uropathy, ORION s/p right stent placement no abdominal pain, fever or chills bladder pain Review of Systems Review of Systems: Yes all other systems are reviewed and are negative Constitutional Constitutional: Denies chills and Denies fever(s) ENT Ears, Nose, Mouth, and Throat: Denies dizziness Cardiovascular Cardiovascular: Denies chest pain, Denies palpitations and Denies dyspnea Respiratory Respiratory: Denies cough and Denies dyspnea Neurologic Neurologic: Denies dizziness Endocrine Endocrine: Denies palpitations Physical Exam Vital Signs: Vital Signs: Last Vital Signs Temp 96.8 F 06/02/23 07:46 Pulse 83 06/02/23 07:46 Resp 16 06/02/23 07:46 BP 158/74 H 06/02/23 07:46 Pulse Ox 96 06/02/23 07:46 O2 Del Method Room Air 06/02/23 07:46 O2 Flow Rate 2 05/28/23 18:11 BMI result Body Mass Index 34.3 Appearing in no acute distress head is normocephalic atraumatic eyes pupils are PERRLA sclera is anicteric mouth throat mucous membranes are intact and moist neck is supple no lymphadenopathy, no JVD noted lung sounds are clear to auscultation heart regular rate rhythm, clear S1, S2 positive bowel sounds, abdomen is soft, nontender neuro patient is alert x3, no focal deficits Objective Data Active Medications Acetaminophen (Acetaminophen 325 Mg Tablet) 650 mg PO Q6H PRN PRN Reason: Pain, Mild (Pain Scale 1-3) Last Admin: 06/02/23 04:11 Dose: 650 mg Documented By: MARINA Albuterol Sulfate (Albuterol Sulfate 90 Mcg 8 Gm Inhaler) 2 puff INHALE Q4H PRN PRN Reason: Wheezing Atorvastatin Calcium (Atorvastatin Calcium 80 Mg Tablet) 80 mg PO DAILY [facility] Last Admin: 06/02/23 09:02 Dose: 80 mg Documented By: COTEMA Clopidogrel Bisulfate (Clopidogrel Bisulfate 75 Mg Tablet) 75 mg PO DAILY [facility] Last Admin: 05/29/23 07:32 Dose: 75 mg Documented By: YOUElaina Dextrose (Dextrose 50 % 25 Gm/50 Ml Syringe) 25 gm IVPUSH Q15M PRN; Protocol PRN Reason: per Hypoglycemia Standing Ord. Diphenhydramine HCl (Diphenhydramine Hcl 25 Mg Capsule) 50 mg PO BEDTIME PRN PRN Reason: Itching Docusate Sodium (Docusate Sodium 100 Mg Capsule) 100 mg PO DAILY PRN PRN Reason: Constipation Last Admin: 05/31/23 07:51 Dose: 100 mg Documented By: FLORENCIO Docusate Sodium (Docusate Sodium 100 Mg Capsule) 100 mg PO BID [facility] Last Admin: 06/02/23 09:03 Dose: 100 mg Documented By: FLORENCIO Famotidine (Famotidine 20 Mg Tablet) 20 mg PO BID@0630,1630 [facility] Last Admin: 06/02/23 06:17 Dose: 20 mg Documented By: LYSJessy Ferrous Sulfate (Ferrous Sulfate 324 Mg Tablet.Dr) 324 mg PO Q48H [facility] Last Admin: 06/01/23 07:29 Dose: 324 mg Documented By: MARLENE Fluticasone Propionate (Fluticasone Propionate Nasal 16 Gm [place]) 1 spray NOSTRIL-B DAILY PRN PRN Reason: Allergy Symptoms Fluticasone/Vilanterol (Fluticasone/Vilanterol 100/25 Blst.W.Dev) 1 puff INHALE RDAILY [facility] Last Admin: 06/02/23 08:38 Dose: Not Given Documented By: FCO Non-Admin Reason: med not available, pharmacy called Furosemide (Furosemide 40 Mg Tablet) 40 mg PO DAILY [facility]; Protocol Last Admin: 06/02/23 09:02 Dose: 40 mg Documented By: FLORENCIO Glucose (Glucose Gel 15 Gm Gel..Gram.) 15 gm PO Q15M PRN; Protocol PRN Reason: per Hypoglycemia Standing Ord. Promethazine HCl 12.5 mg/ (Sodium Chloride) 50.5 mls @ 202 mls/hr IV ONCE PRN PRN Reason: Nausea and Vomiting Insulin Human Lispro (Insulin Lispro 100 Unit/Ml 3 Ml Vial) 0 unit SUBCUT QIDACHS [facility]; Protocol Last Admin: 06/02/23 07:32 Dose: Not Given Documented By: FLORENCIO Non-Admin Reason: No Insulin Coverage Lidocaine (Lidocaine 4 % Patch Adh..Patch) 1 patch TRANSDERMA DAILY PRN PRN Reason: Pain (Scale Score 1-3) Last Admin: 05/31/23 06:24 Dose: 1 patch Documented By: MARINA Loratadine (Loratadine 10 Mg Tablet) 10 mg PO DAILY [facility] Last Admin: 06/02/23 09:03 Dose: 10 mg Documented By: FLORENCIO Metoprolol Succinate (Metoprolol Succinate Er 50 Mg Tab.Er.24h) 50 mg PO DAILY [facility]; Protocol Last Admin: 06/02/23 09:02 Dose: 50 mg Documented By: FLORENCIO Mirabegron (Mirabegron 50 Mg Tab.Er.24h) 50 mg PO DAILY [facility] Last Admin: 06/02/23 09:02 Dose: 50 mg Documented By: FLORENCIO Ondansetron HCl (Ondansetron Hcl 4 Mg/2 Ml Vial) 4 mg IVPUSH Q8H PRN PRN Reason: Nausea and Vomiting Ondansetron HCl (Ondansetron Hcl 4 Mg/2 Ml Vial) 4 mg IVPUSH ONCE PRN PRN Reason: Nausea and Vomiting Oxycodone HCl (Oxycodone Hcl Immed Release 5 Mg Tablet) 5 mg PO Q6H PRN PRN Reason: Pain, Severe (Pain Scale 7-10) Last Admin: 06/02/23 04:10 Dose: 5 mg Documented By: MARINA Pharmacy Consult (Consult Rx Perform Med Rec) 1 each MISCELLANE ONCE PRN PRN Reason: Consult order Polyethylene Glycol (Polyethylene Glycol 3350 17 Gm Powd.Pack) 17 gm PO DAILY [facility] Last Admin: 06/02/23 09:02 Dose: 17 gm Documented By: FLORENCIO Pyridoxine HCl (Pyridoxine Hcl (Vitamin B6) 50 Mg Tablet) 100 mg PO DAILY [facility] Last Admin: 06/02/23 09:02 Dose: 100 mg Documented By: FLORENCIO Senna (Sennosides 8.6 Mg Tablet) 8.6 mg PO BID [facility] Last Admin: 06/02/23 09:02 Dose: 8.6 mg Documented By: FLORENCIO Simethicone (Simethicone 80 Mg Tab.Chew) 160 mg PO QID PRN PRN Reason: Indigestion Last Admin: 05/30/23 08:53 Dose: 160 mg Documented By: FLORENCIO Sodium Chloride (0.9 % Sodium Chloride Flush 3 Ml Syringe) 3 ml IVFLUSH QSHIFT [facility] Last Admin: 06/02/23 07:17 Dose: 3 ml Documented By: FLORENCIO Labs 06/02/23 05:23 06/02/23 05:23 Labs: Laboratory Results - last 24 hr 06/01/23 06/01/23 06/02/23 15:37 20:26 05:23 Anion Gap 11 L Estim Creat Clear Calc 23.1 Estimated GFR 24 POC Glucose 201 H 185 H Random Glucose 155 H Calcium 9.1 06/02/23 06/02/23 07:23 11:19 Anion Gap Estim Creat Clear Calc Estimated GFR POC Glucose 146 H 168 H Random Glucose Calcium Assessment and Plan (1) Obstructive uropathy: Status: Acute (2) Acute kidney failure: Status: Acute (3) UPJ obstruction, acquired: Status: Acute Plan 78 year old female with history of noninsulin dependent type 2 diabetes, htn, asthma/copd overlap, chronic atrial fibrillation anticoagulated with eliquis, history etoh abuse, CHF, history NSTEMI, and history nephrolithiasis?admitted for further management of obstructive uropathy with acute kidney injury. Acute kidney injury due to obstructive uropathy of right UPJ creatinine 1.99 today UA, UCx negative CT with finding of possible vessel crossing UPJ but unable to have CT with contrast due to ORION Johnson placed but repeat CT with persistent right hydro - s/p right stent placement 05/[address] cruz - obstruction likely from scarring from previous kidney stones hematuria persistent r/t urological procedure/stent placement CBC stable Eliquis on hold continue CBI Chronic atrial fibrillation-rate controlled Hold eliquis until after stent placement, resume when safe from urological perspective/hematuria improves continue rate control medications HFpEF no acute exacerbation oral lasix Chronic normocytic anemia H/H baseline, above transfusion threshold Asthma/COPD overlap no acute exacerbation continue home inhalers HTN Hold losartan, lasix in setting of ORION DM continue SSI, POCs, ada diet metformin on hold DVT prophylaxis- mechanical devices . eliquis currently on hold for stent placement Attending Dr. Higginbotham Full code continued hospital stay for management hematuria Time Spent With Patient Time: Total time managing care of this patient today ____ minutes. Quality Stroke Does the patient have a stroke diagnosis?: No VTE Prior VTE?: No VTE Risk Level:: Medical - moderate - high VTE Device Contraindication: N/A - Device Ordered VTE Drug Contraindication: Treatment Not Indicated
[2023-06-02] MEDS: Insulin Lispro 100 UNIT/ML 3 ML VIAL SUBCUT ×3 (12:18→20:25)
[2023-06-02 15:36] VITALS: BP 140/72; PULSE 80; RESP 20; TEMP 36; O2SAT 97
[2023-06-02 15:48] LABS: Glucose, Whole Blood 181 mg/dL (60-115)
[2023-06-02 19:00] VITALS: BP 140/75; PULSE 69; RESP 18; TEMP 36.3; O2SAT 96
[2023-06-02 20:12] LABS: Glucose, Whole Blood 225 mg/dL (60-115)
[2023-06-02] MEDS: Docusate Sodium 100 MG CAPSULE PO (20:34)
[2023-06-03] MEDS: oxyCODONE HCl Immed Release 5 MG TABLET PO ×4 (00:24→22:14)
[2023-06-03 04:00] VITALS: BP 138/77; PULSE 75; RESP 16; TEMP 36; O2SAT 100
[2023-06-03] MEDS: Famotidine 20 MG TABLET PO ×2 (05:56→16:00)
[2023-06-03 06:47] LABS: Anion Gap 12 (12-20); Blood Urea Nitrogen 39 mg/dL (9-16); Calcium 9.1 mg/dL (8.4-10.2); Carbon Dioxide 26 mmol/L (22-29); Chloride 106 mmol/L (96-108); Creatinine Clr Calc Pharmacy 24.1; Estimated Glomerular Filt Rate 25; Glucose Random 154 mg/dL (60-115); Potassium 4.3 mmol/L (3.3-5.1); Sodium 140 mmol/L (135-145)
[2023-06-03] MEDS: Acetaminophen 325 MG TABLET 650 MG PO ×2 (07:09→14:08)
[2023-06-03 07:46] LABS: Glucose, Whole Blood 164 mg/dL (60-115)
[2023-06-03 07:53] VITALS: BP 164/70; PULSE 78; RESP 18; TEMP 36.2; O2SAT 96
[2023-06-03] MEDS: Atorvastatin Calcium 80 MG TABLET PO (07:59)
[2023-06-03] MEDS: Metoprolol Succinate ER 50 MG TAB.ER.24H PO (07:59)
[2023-06-03] MEDS: Sennosides 8.6 MG TABLET PO ×2 (07:59→21:13)
[2023-06-03] MEDS: Furosemide 40 MG TABLET PO (07:59)
[2023-06-03] MEDS: Insulin Lispro 100 UNIT/ML 3 ML VIAL SUBCUT ×3 (07:59→21:13)
[2023-06-03] MEDS: Mirabegron 50 MG TAB.ER.24H PO (07:59)
[2023-06-03] MEDS: Docusate Sodium 100 MG CAPSULE PO ×2 (07:59→21:13)
[2023-06-03] MEDS: Pyridoxine HCl (Vitamin B6) 50 MG TABLET 100 MG PO (07:59)
[2023-06-03] MEDS: 0.9 % Sodium Chloride Flush 3 ML SYRINGE IVFLUSH ×3 (07:59→21:20)
[2023-06-03] MEDS: Ferrous Sulfate 324 MG TABLET.DR PO (08:00)
[2023-06-03] MEDS: Loratadine 10 MG TABLET PO (08:00)
[2023-06-03] MEDS: polyethylene glycoL 3350 17 GM POWD.PACK PO (08:00)
[2023-06-03] MEDS: Fluticasone/Vilanterol 100/25 BLST.W.DEV 1 PUFF INHALE (08:18)
[2023-06-03 08:19] VITALS: PULSE 74; RESP 16; O2SAT 95
[2023-06-03 08:30] LABS: Hematocrit 30.2 % (37.0-47.0); Hemoglobin 9.4 g/dl (12.0-16.0)
--- NOTE | 2023-06-03 10:54 | HO.PM.IMPN ---
Subjective Subjective Date of Service: 06/03/23 Interval History: seen and examined this morning follow up for obstructive uropathy, ORION s/p right stent placement no abdominal pain, fever or chills Review of Systems Review of Systems: Yes all other systems are reviewed and are negative Constitutional Constitutional: Denies chills and Denies fever(s) ENT Ears, Nose, Mouth, and Throat: Denies dizziness Cardiovascular Cardiovascular: Denies chest pain, Denies palpitations and Denies dyspnea Respiratory Respiratory: Denies cough and Denies dyspnea Neurologic Neurologic: Denies dizziness Endocrine Endocrine: Denies palpitations Physical Exam Vital Signs: Vital Signs: Last Vital Signs Temp 97.2 F 06/03/23 07:53 Pulse 74 06/03/23 08:19 Resp 16 06/03/23 08:19 BP 164/70 H 06/03/23 07:53 Pulse Ox 96 06/03/23 07:53 O2 Del Method Room Air 06/03/23 07:53 O2 Flow Rate 2 05/28/23 18:11 BMI result Body Mass Index 34.3 Appearing in no acute distress lung sounds are clear to auscultation heart regular rate rhythm, clear S1, S2 positive bowel sounds, abdomen is soft, nontender neuro patient is alert x3, no focal deficits Objective Data Active Medications Acetaminophen (Acetaminophen 325 Mg Tablet) 650 mg PO Q6H PRN PRN Reason: Pain, Mild (Pain Scale 1-3) Last Admin: 06/03/23 07:09 Dose: 650 mg Documented By: EMILIE Albuterol Sulfate (Albuterol Sulfate 90 Mcg 8 Gm Inhaler) 2 puff INHALE Q4H PRN PRN Reason: Wheezing Atorvastatin Calcium (Atorvastatin Calcium 80 Mg Tablet) 80 mg PO DAILY [facility] Last Admin: 06/03/23 07:59 Dose: 80 mg Documented By: EMILIE Clopidogrel Bisulfate (Clopidogrel Bisulfate 75 Mg Tablet) 75 mg PO DAILY [facility] Last Admin: 05/29/23 07:32 Dose: 75 mg Documented By: JAYY Dextrose (Dextrose 50 % 25 Gm/50 Ml Syringe) 25 gm IVPUSH Q15M PRN; Protocol PRN Reason: per Hypoglycemia Standing Ord. Diphenhydramine HCl (Diphenhydramine Hcl 25 Mg Capsule) 50 mg PO BEDTIME PRN PRN Reason: Itching Docusate Sodium (Docusate Sodium 100 Mg Capsule) 100 mg PO DAILY PRN PRN Reason: Constipation Last Admin: 05/31/23 07:51 Dose: 100 mg Docusate Sodium (Docusate Sodium 100 Mg Capsule) 100 mg PO BID [facility] Last Admin: 06/03/23 07:59 Dose: 100 mg Documented By: EMILIE Famotidine (Famotidine 20 Mg Tablet) 20 mg PO BID@0630,1630 [facility] Last Admin: 06/03/23 05:56 Dose: 20 mg Documented By: TRELL Ferrous Sulfate (Ferrous Sulfate 324 Mg Tablet.Dr) 324 mg PO Q48H [facility] Last Admin: 06/03/23 08:00 Dose: 324 mg Documented By: EMILIE Fluticasone Propionate (Fluticasone Propionate Nasal 16 Gm [place]) 1 spray NOSTRIL-B DAILY PRN PRN Reason: Allergy Symptoms Fluticasone/Vilanterol (Fluticasone/Vilanterol 100/25 Blst.W.Dev) 1 puff INHALE RDAILY [facility] Last Admin: 06/03/23 08:18 Dose: 1 puff Documented By: HETAL Furosemide (Furosemide 40 Mg Tablet) 40 mg PO DAILY [facility]; Protocol Last Admin: 06/03/23 07:59 Dose: 40 mg Documented By: EMILIE Glucose (Glucose Gel 15 Gm Gel..Gram.) 15 gm PO Q15M PRN; Protocol PRN Reason: per Hypoglycemia Standing Ord. Promethazine HCl 12.5 mg/ (Sodium Chloride) 50.5 mls @ 202 mls/hr IV ONCE PRN PRN Reason: Nausea and Vomiting Insulin Human Lispro (Insulin Lispro 100 Unit/Ml 3 Ml Vial) 0 unit SUBCUT QIDACHS [facility]; Protocol Last Admin: 06/03/23 07:59 Dose: 2 unit Documented By: EMILIE Lidocaine (Lidocaine 4 % Patch Adh..Patch) 1 patch TRANSDERMA DAILY PRN PRN Reason: Pain (Scale Score 1-3) Last Admin: 05/31/23 06:24 Dose: 1 patch Documented By: MARINA Loratadine (Loratadine 10 Mg Tablet) 10 mg PO DAILY [facility] Last Admin: 06/03/23 08:00 Dose: 10 mg Documented By: EMILIE Metoprolol Succinate (Metoprolol Succinate Er 50 Mg Tab.Er.24h) 50 mg PO DAILY [facility]; Protocol Last Admin: 06/03/23 07:59 Dose: 50 mg Documented By: EMILIE Mirabegron (Mirabegron 50 Mg Tab.Er.24h) 50 mg PO DAILY [facility] Last Admin: 06/03/23 07:59 Dose: 50 mg Documented By: EMILIE Ondansetron HCl (Ondansetron Hcl 4 Mg/2 Ml Vial) 4 mg IVPUSH Q8H PRN PRN Reason: Nausea and Vomiting Ondansetron HCl (Ondansetron Hcl 4 Mg/2 Ml Vial) 4 mg IVPUSH ONCE PRN PRN Reason: Nausea and Vomiting Oxycodone HCl (Oxycodone Hcl Immed Release 5 Mg Tablet) 5 mg PO Q6H PRN PRN Reason: Pain, Severe (Pain Scale 7-10) Last Admin: 06/03/23 07:09 Dose: 5 mg Documented By: EMILIE Pharmacy Consult (Consult Rx Perform Med Rec) 1 each MISCELLANE ONCE PRN PRN Reason: Consult order Polyethylene Glycol (Polyethylene Glycol 3350 17 Gm Powd.Pack) 17 gm PO DAILY [facility] Last Admin: 06/03/23 08:00 Dose: 17 gm Documented By: EMILIE Pyridoxine HCl (Pyridoxine Hcl (Vitamin B6) 50 Mg Tablet) 100 mg PO DAILY [facility] Last Admin: 06/03/23 07:59 Dose: 100 mg Documented By: EMILIE Senna (Sennosides 8.6 Mg Tablet) 8.6 mg PO BID [facility] Last Admin: 06/03/23 07:59 Dose: 8.6 mg Documented By: EMILIE Simethicone (Simethicone 80 Mg Tab.Chew) 160 mg PO QID PRN PRN Reason: Indigestion Last Admin: 05/30/23 08:53 Dose: 160 mg Documented By: COTEMA Sodium Chloride (0.9 % Sodium Chloride Flush 3 Ml Syringe) 3 ml IVFLUSH QSHIFT [facility] Last Admin: 06/03/23 07:59 Dose: 3 ml Documented By: EMILIE Labs 06/03/23 08:15 06/03/23 05:46 Labs: Laboratory Results - last 24 hr 06/02/23 06/02/23 06/02/23 11:19 15:42 20:04 Anion Gap Estim Creat Clear Calc Estimated GFR POC Glucose 168 H 181 H 225 H Random Glucose Calcium 06/03/23 06/03/23 05:46 07:41 Anion Gap 12 Estim Creat Clear Calc 24.1 Estimated GFR 25 POC Glucose 164 H Random Glucose 154 H Calcium 9.1 Assessment and Plan (1) Obstructive uropathy: Status: Acute (2) Acute kidney failure: Status: Acute (3) UPJ obstruction, acquired: Status: Acute Plan 78 year old female with history of noninsulin dependent type 2 diabetes, htn, asthma/copd overlap, chronic atrial fibrillation anticoagulated with eliquis, history etoh abuse, CHF, history NSTEMI, and history nephrolithiasis?admitted for further management of obstructive uropathy with acute kidney injury. hematuria persistent but improving r/t urological procedure/stent placement Eliquis on hold discussed with urology>remove vance cath for voiding trial, patient may dc if she voids to f/u in urology office ORION on CKD 4, due to obstructive uropathy of right UPJ. baseline creatinine 1.91 today UA, UCx negative CT with finding of possible vessel crossing UPJ but unable to have CT with contrast due to ORION Vance placed but repeat CT with persistent right hydro - s/p right stent placement 05/[address] cruz - obstruction likely from scarring from previous kidney stones Chronic atrial fibrillation-rate controlled Hold eliquis until after stent placement, resume when safe from urological perspective/hematuria improves continue rate control medications HFpEF no acute exacerbation oral lasix Chronic normocytic anemia H/H baseline, above transfusion threshold Asthma/COPD overlap no acute exacerbation continue home inhalers HTN Hold losartan, lasix in setting of ORION DM continue SSI, POCs, ada diet DVT prophylaxis- mechanical devices . eliquis currently on hold for stent placement Attending Dr. Higginbotham Full code continued hospital stay for management hematuria Time Spent With Patient Time: Total time managing care of this patient today ____ minutes. Quality Stroke Does the patient have a stroke diagnosis?: No VTE Prior VTE?: No VTE Risk Level:: Medical - moderate - high VTE Device Contraindication: N/A - Device Ordered VTE Drug Contraindication: Treatment Not Indicated
--- NOTE | 2023-06-03 11:02 | P.PNIM_ITS ---
Subjective Subjective Date of Service: 06/03/23 Interval History: seen and examined this morning follow up for obstructive uropathy, ORION s/p right stent placement no abdominal pain, fever or chills Review of Systems Review of Systems: Yes all other systems are reviewed and are negative Constitutional Constitutional: Denies chills and Denies fever(s) ENT Ears, Nose, Mouth, and Throat: Denies dizziness Cardiovascular Cardiovascular: Denies chest pain, Denies palpitations and Denies dyspnea Respiratory Respiratory: Denies cough and Denies dyspnea Neurologic Neurologic: Denies dizziness Endocrine Endocrine: Denies palpitations Physical Exam Vital Signs: Vital Signs: Last Vital Signs Temp 97.2 F 06/03/23 07:53 Pulse 74 06/03/23 08:19 Resp 16 06/03/23 08:19 BP 164/70 H 06/03/23 07:53 Pulse Ox 96 06/03/23 07:53 O2 Del Method Room Air 06/03/23 07:53 O2 Flow Rate 2 05/28/23 18:11 BMI result Body Mass Index 34.3 Appearing in no acute distress lung sounds are clear to auscultation heart regular rate rhythm, clear S1, S2 positive bowel sounds, abdomen is soft, nontender neuro patient is alert x3, no focal deficits Objective Data Active Medications Acetaminophen (Acetaminophen 325 Mg Tablet) 650 mg PO Q6H PRN PRN Reason: Pain, Mild (Pain Scale 1-3) Last Admin: 06/03/23 07:09 Dose: 650 mg Documented By: EMILIE Albuterol Sulfate (Albuterol Sulfate 90 Mcg 8 Gm Inhaler) 2 puff INHALE Q4H PRN PRN Reason: Wheezing Atorvastatin Calcium (Atorvastatin Calcium 80 Mg Tablet) 80 mg PO DAILY [facility] Last Admin: 06/03/23 07:59 Dose: 80 mg Documented By: EMILIE Clopidogrel Bisulfate (Clopidogrel Bisulfate 75 Mg Tablet) 75 mg PO DAILY [facility] Last Admin: 05/29/23 07:32 Dose: 75 mg Documented By: JAYY Dextrose (Dextrose 50 % 25 Gm/50 Ml Syringe) 25 gm IVPUSH Q15M PRN; Protocol PRN Reason: per Hypoglycemia Standing Ord. Diphenhydramine HCl (Diphenhydramine Hcl 25 Mg Capsule) 50 mg PO BEDTIME PRN PRN Reason: Itching Docusate Sodium (Docusate Sodium 100 Mg Capsule) 100 mg PO DAILY PRN PRN Reason: Constipation Last Admin: 05/31/23 07:51 Dose: 100 mg Docusate Sodium (Docusate Sodium 100 Mg Capsule) 100 mg PO BID [facility] Last Admin: 06/03/23 07:59 Dose: 100 mg Documented By: EMILIE Famotidine (Famotidine 20 Mg Tablet) 20 mg PO BID@0630,1630 [facility] Last Admin: 06/03/23 05:56 Dose: 20 mg Documented By: TRELL Ferrous Sulfate (Ferrous Sulfate 324 Mg Tablet.Dr) 324 mg PO Q48H [facility] Last Admin: 06/03/23 08:00 Dose: 324 mg Documented By: EMILIE Fluticasone Propionate (Fluticasone Propionate Nasal 16 Gm [place]) 1 spray NOSTRIL-B DAILY PRN PRN Reason: Allergy Symptoms Fluticasone/Vilanterol (Fluticasone/Vilanterol 100/25 Blst.W.Dev) 1 puff INHALE RDAILY [facility] Last Admin: 06/03/23 08:18 Dose: 1 puff Documented By: HETAL Furosemide (Furosemide 40 Mg Tablet) 40 mg PO DAILY [facility]; Protocol Last Admin: 06/03/23 07:59 Dose: 40 mg Documented By: EMILIE Glucose (Glucose Gel 15 Gm Gel..Gram.) 15 gm PO Q15M PRN; Protocol PRN Reason: per Hypoglycemia Standing Ord. Promethazine HCl 12.5 mg/ (Sodium Chloride) 50.5 mls @ 202 mls/hr IV ONCE PRN PRN Reason: Nausea and Vomiting Insulin Human Lispro (Insulin Lispro 100 Unit/Ml 3 Ml Vial) 0 unit SUBCUT QIDACHS [facility]; Protocol Last Admin: 06/03/23 07:59 Dose: 2 unit Documented By: EMILIE Lidocaine (Lidocaine 4 % Patch Adh..Patch) 1 patch TRANSDERMA DAILY PRN PRN Reason: Pain (Scale Score 1-3) Last Admin: 05/31/23 06:24 Dose: 1 patch Documented By: MARINA Loratadine (Loratadine 10 Mg Tablet) 10 mg PO DAILY [facility] Last Admin: 06/03/23 08:00 Dose: 10 mg Documented By: EMILIE Metoprolol Succinate (Metoprolol Succinate Er 50 Mg Tab.Er.24h) 50 mg PO DAILY [facility]; Protocol Last Admin: 06/03/23 07:59 Dose: 50 mg Documented By: EMILIE Mirabegron (Mirabegron 50 Mg Tab.Er.24h) 50 mg PO DAILY [facility] Last Admin: 06/03/23 07:59 Dose: 50 mg Documented By: EMILIE Ondansetron HCl (Ondansetron Hcl 4 Mg/2 Ml Vial) 4 mg IVPUSH Q8H PRN PRN Reason: Nausea and Vomiting Ondansetron HCl (Ondansetron Hcl 4 Mg/2 Ml Vial) 4 mg IVPUSH ONCE PRN PRN Reason: Nausea and Vomiting Oxycodone HCl (Oxycodone Hcl Immed Release 5 Mg Tablet) 5 mg PO Q6H PRN PRN Reason: Pain, Severe (Pain Scale 7-10) Last Admin: 06/03/23 07:09 Dose: 5 mg Documented By: EMILIE Pharmacy Consult (Consult Rx Perform Med Rec) 1 each MISCELLANE ONCE PRN PRN Reason: Consult order Polyethylene Glycol (Polyethylene Glycol 3350 17 Gm Powd.Pack) 17 gm PO DAILY [facility] Last Admin: 06/03/23 08:00 Dose: 17 gm Documented By: EMILIE Pyridoxine HCl (Pyridoxine Hcl (Vitamin B6) 50 Mg Tablet) 100 mg PO DAILY [facility] Last Admin: 06/03/23 07:59 Dose: 100 mg Documented By: EMILIE Senna (Sennosides 8.6 Mg Tablet) 8.6 mg PO BID [facility] Last Admin: 06/03/23 07:59 Dose: 8.6 mg Documented By: EMILIE Simethicone (Simethicone 80 Mg Tab.Chew) 160 mg PO QID PRN PRN Reason: Indigestion Last Admin: 05/30/23 08:53 Dose: 160 mg Documented By: COTEMA Sodium Chloride (0.9 % Sodium Chloride Flush 3 Ml Syringe) 3 ml IVFLUSH QSHIFT [facility] Last Admin: 06/03/23 07:59 Dose: 3 ml Documented By: EMILIE Labs 06/03/23 08:15 06/03/23 05:46 Labs: Laboratory Results - last 24 hr 06/02/23 06/02/23 06/02/23 11:19 15:42 20:04 Anion Gap Estim Creat Clear Calc Estimated GFR POC Glucose 168 H 181 H 225 H Random Glucose Calcium 06/03/23 06/03/23 05:46 07:41 Anion Gap 12 Estim Creat Clear Calc 24.1 Estimated GFR 25 POC Glucose 164 H Random Glucose 154 H Calcium 9.1 Assessment and Plan (1) Obstructive uropathy: Status: Acute (2) Acute kidney failure: Status: Acute (3) UPJ obstruction, acquired: Status: Acute Plan 78 year old female with history of noninsulin dependent type 2 diabetes, htn, asthma/copd overlap, chronic atrial fibrillation anticoagulated with eliquis, history etoh abuse, CHF, history NSTEMI, and history nephrolithiasis?admitted for further management of obstructive uropathy with acute kidney injury. hematuria persistent but improving r/t urological procedure/stent placement Eliquis on hold, discuss with urology re when to restart discussed with urology>remove vance cath for voiding trial, patient may dc if she voids to f/u in urology office ORION on CKD 4, due to obstructive uropathy of right UPJ. baseline creatinine 1.91 today UA, UCx negative CT with finding of possible vessel crossing UPJ but unable to have CT with contrast due to ORION Vnace placed but repeat CT with persistent right hydro - s/p right stent placement 05/[address] cruz - obstruction likely from scarring from previous kidney stones Chronic atrial fibrillation-rate controlled Hold eliquis until after stent placement, resume when safe from urological perspective/hematuria improves continue rate control medications HFpEF no acute exacerbation oral lasix Chronic normocytic anemia H/H baseline, above transfusion threshold Asthma/COPD overlap no acute exacerbation continue home inhalers HTN Hold losartan, lasix in setting of ORION DM continue SSI, POCs, ada diet DVT prophylaxis- mechanical devices . eliquis currently on hold due to hematuria Attending Dr. Higginbotham Full code continued hospital stay for management hematuria Time Spent With Patient Time: Total time managing care of this patient today ____ minutes. Quality Stroke Does the patient have a stroke diagnosis?: No VTE Prior VTE?: No VTE Risk Level:: Medical - moderate - high VTE Device Contraindication: N/A - Device Ordered VTE Drug Contraindication: Treatment Not Indicated
--- NOTE | 2023-06-03 11:04 | PM.DS ---
DS: Providers Provider Date of admission: 05/25/23 21:40 Primary care physician: Tara Webster NP Consults: 05/25/23 21:40 Consult to Urology Routine Consulting Provider: Lior Tellez Reason for consultation: obstructive uropathy, note vessel crossing UPJ on ct DS: Diagnosis Discharge Diagnosis (1) Obstructive uropathy: Status: Acute (2) Acute kidney failure: Status: Acute (3) UPJ obstruction, acquired: Status: Acute DS: Summary Hospital Course Hospital Course: History and physical as per admitting provider. 78 year old female with history of non insulin dependent type 2 diabetes, htn, asthma/copd overlap, chronic atrial fibrillation anticoagulated with eliquis, history etoh abuse, CHF, history NSTEMI, and history nephrolithiasis?presents to the ED with her daughter and grandson for for evaluation of bilateral abdominal pain ongoing for 2 weeks but has been gradually worsening.? She reports pain primarily on the sides bilaterally that is now constant with associated nausea.? She did have an episode of vomiting last week but no recurrent vomiting.? She denies any radiation of the pain.? Denies any fevers, chills, dysuria, hematuria, increased urinary frequency, retention, urgency, or flank pain. On arrival, vital stable though slightly hypertensive to 172/80 likely secondary to pain.? Stable normocytic anemia with H/H 10.4/33.6 %.? Creatinine 2.35, baseline 0.83.? BUN 43.? Urinalysis significant for 1+ leukocytes, negative nitrites, trace blood, positive urinary sediment but negative bacteria.? CT abdomen/pelvis shows diffuse sigmoid and scattered rest of colon diverticulosis.? There is nonobstructive 9 mm radiopaque calculi in the lower pole of the left kidney.? There is right UPJ obstruction with a significantly distended right kidney pelvis and a probable vessel crossing the UPJ, CTA recommended.? There is a large Bosniak type 2 left renal cyst among other findings.? ED discussed case with urology recommending full catheter insertion and admission to medicine.? In the ED, she was gently hydrated and treated with ondansetron IV morphine. 78-year-old woman treated for obstructive uropathy status post right ureteral stent on 05/28/2023. Patient developed hematuria that was persistent despite being off her Eliquis since admission. CBI started on 06/01/2023 with some improvement noted. Discussed case with urologist. Johnson catheter removed and patient underwent voiding trial>> Plan will be for patient to follow-up in the urology office patient. She had some episodes of low H&H but never required blood transfusion. Patient developed ORION on CKD 4, due to obstructive uropathy of right UPJ. Up to 2.35. UA and urine culture negative. Treated with IV fluids, stent placement and Johnosn catheter. Creatinine trended down to 1.91, baseline. Chronic atrial fibrillation with no exacerbation during hospitalization. Her Eliquis had been on hold since admission. Will need to discuss when to resume from the urological perspective secondary to hematuria. Continue rate control medications HFpEF. No exacerbation. Continue medications Chronic normocytic anemia. Stable H&H Asthma/COPD. No exacerbation. Continue medications Hypertension. Blood pressure had been stable off losartan ORION. May continue all home medications DM type 2 continue home medications Time Spent with Patient Time attestation: Total time managing care of this patient today ____ minutes. Physical Exam Vital Signs: Vital Signs: Last Vital Signs Temp 97.2 F 06/03/23 07:53 Pulse 74 06/03/23 08:19 Resp 16 06/03/23 08:19 BP 164/70 H 06/03/23 07:53 Pulse Ox 96 06/03/23 07:53 O2 Del Method Room Air 06/03/23 07:53 O2 Flow Rate 2 05/28/23 18:11 BMI result Body Mass Index 34.3 DS: Data Data Completed and Pending Completed studies during hospitalization [Text1]: Procedures Assistance with Respiratory Ventilation, Less than 24 Consecutive Hours, Continuous Positive Airway Pressure (04/09/23) Dilation of Bilateral Ureters with Intraluminal Device, Via Natural or Artificial Opening Endoscopic (03/02/23) Fluoroscopy of Kidneys, Ureters and Bladder (03/02/23) Removal of Intraluminal Device from Bladder, Via Natural or Artificial Opening Endoscopic (12/19/22) Labs on day of discharge: Laboratory Results - last 24 hr 06/02/23 06/02/23 06/02/23 11:19 15:42 20:04 Hgb Hct Sodium Potassium Chloride Carbon Dioxide Anion Gap BUN Creatinine Estim Creat Clear Calc Estimated GFR POC Glucose 168 H 181 H 225 H Random Glucose Calcium 06/03/23 06/03/23 06/03/23 05:46 07:41 08:15 Hgb 9.4 L Hct 30.2 L Sodium 140 Potassium 4.3 Chloride 106 Carbon Dioxide 26 Anion Gap 12 BUN 39 H Creatinine 1.91 H Estim Creat Clear Calc 24.1 Estimated GFR 25 POC Glucose 164 H Random Glucose 154 H Calcium 9.1 Discharge Plan Discharge Patient Disposition: Home, Self-Care Discharge Diagnosis: ORION on CKD stage 4 Hematuria Obstructive uropathy Referrals: Tara Webster, [employer] [employer] [Primary Care Provider] - 1 Week Discharge Medications: Continued losartan 50 mg tablet 50 mg PO DAILY 90 Days Qty: 90 1RF fluticasone propion-salmeterol [Advair Diskus] 250-50 mcg/dose blister with device 1 puff INHALATION BID albuterol sulfate 2.5 mg /3 mL (0.083 %) solution for nebulization 1 amp inhalation QID PRN (Reason: Wheezing) (DME) blood-glucose meter [[employer] Verio Flex meter] [facility] [place] MISCELLANEOUS DIRECTED (DME) OneTouch Verio test strips Strip MISCELLANEOUS BID (DME) lancets [[employer] Delica Plus Lancet] [facility] MISCELLANEOUS BID pyridoxine (vitamin B6) 100 mg tablet 100 mg PO DAILY tramadol 50 mg Tablet 50 mg PO Q8H PRN (Reason: Pain) ferrous gluconate 324 mg (37.5 mg iron) Tablet 324 mg PO Q2D acetaminophen 325 mg tablet 650 mg PO Q6H PRN (Reason: mild pain) polyethylene glycol 3350 17 gram Powder In Packet 17 g PO DAILY cetirizine 10 mg Tablet 10 mg PO DAILY alendronate 70 mg tablet 70 mg PO REESE@0900 lidocaine 5 % Adhesive Patch,Medicated 1 patch TOPICAL DAILY PRN (Reason: Pain (Scale Score 1-3)) Rx Instructions: leave on most painful area for up to 12 hrs docusate sodium 100 mg capsule 100 mg PO BID fluticasone propionate 50 mcg/actuation [place],Suspension 1 spray INTRANASAL DAILY PRN (Reason: Allergy Symptoms) Rx Instructions: administer into each nostril sennosides [senna] 8.6 mg tablet 1 tab PO BID simethicone [Gas Relief Extra Strength] 125 mg capsule 125 mg PO QID PRN (Reason: Indigestion) furosemide 40 mg tablet 40 mg PO DAILY famotidine 20 mg tablet 20 mg PO BID Qty: 180 2RF Fiber Laxative(methylcellulos) 500 mg tablet 500 mg PO DAILY Qty: 90 2RF metformin 850 mg tablet 850 mg PO BIDWM atorvastatin 80 mg tablet 80 mg PO DAILY albuterol sulfate [Ventolin HFA] 90 mcg/actuation HFA aerosol inhaler 2 puff inhalation Q4-6H PRN (Reason: Wheezing) clopidogrel 75 mg tablet 75 mg PO DAILY metoprolol succinate [Toprol XL] 50 mg tablet extended release 24 hr 50 mg PO DAILY Myrbetriq 50 mg tablet extended release 24 hr 50 mg PO DAILY Qty: 30 1RF Held Eliquis 5 mg tablet 5 mg PO BID Qty: 60 0RF Hold Instructions: Resume on 06/05/23. On hold due to hematuria from obstructive uropathy and recent stent placement Diet: Advance to usual diet Activity on Discharge: As tolerated Stand Alone Forms: Patient Portal Discharge page Care Plan Goals: Complete resolution of symptoms Health Concerns: ORION on CKD stage 4 Hematuria Obstructive uropathy Plan of Treatment: Follow-up with urologist in outpatient office Monitor for worsening lower abdominal pain and hematuria Assessment: See discharge summary
[2023-06-03 11:17] LABS: Glucose, Whole Blood 144 mg/dL (60-115)
[2023-06-03 15:50] VITALS: BP 139/69; PULSE 68; RESP 18; TEMP 35.9; O2SAT 95
[2023-06-03 16:16] LABS: Glucose, Whole Blood 186 mg/dL (60-115)
[2023-06-03 18:52] VITALS: BP 139/67; PULSE 69; RESP 19; TEMP 35.9; O2SAT 95
[2023-06-03 20:00] VITALS: BP 138/68; PULSE 69; RESP 18; TEMP 35.9
[2023-06-03 20:41] LABS: Glucose, Whole Blood 188 mg/dL (60-115)
[2023-06-04 04:00] VITALS: BP 155/71; PULSE 72; RESP 16; TEMP 36.4; O2SAT 98
[2023-06-04] MEDS: Famotidine 20 MG TABLET PO (06:25)
[2023-06-04 07:22] VITALS: BP 157/74; PULSE 74; RESP 20; TEMP 36.2; O2SAT 97
[2023-06-04 07:23] LABS: Glucose, Whole Blood 90 mg/dL (60-115)
[2023-06-04] MEDS: Fluticasone/Vilanterol 100/25 BLST.W.DEV 1 PUFF INHALE (07:43)
[2023-06-04 07:45] VITALS: PULSE 76; RESP 16; O2SAT 99
[2023-06-04] MEDS: Mirabegron 50 MG TAB.ER.24H PO (07:56)
[2023-06-04] MEDS: Sennosides 8.6 MG TABLET PO (07:56)
[2023-06-04] MEDS: polyethylene glycoL 3350 17 GM POWD.PACK PO (07:56)
[2023-06-04] MEDS: 0.9 % Sodium Chloride Flush 3 ML SYRINGE IVFLUSH (07:56)
[2023-06-04] MEDS: Furosemide 40 MG TABLET PO (07:57)
[2023-06-04] MEDS: Metoprolol Succinate ER 50 MG TAB.ER.24H PO (07:57)
[2023-06-04] MEDS: Docusate Sodium 100 MG CAPSULE PO (07:57)
[2023-06-04] MEDS: Atorvastatin Calcium 80 MG TABLET PO (07:57)
[2023-06-04] MEDS: Pyridoxine HCl (Vitamin B6) 50 MG TABLET 100 MG PO (07:57)
[2023-06-04] MEDS: Loratadine 10 MG TABLET PO (09:31)
[2023-06-04 11:13] LABS: Glucose, Whole Blood 233 mg/dL (60-115)
--- NOTE | 2023-06-04 12:06 | P.DS_ITS ---
DS: Providers Provider Date of Service: 06/04/23 Date of admission: 05/25/23 21:40 Date of discharge: 06/04/23 Primary care physician: aTra Webster NP Consults: 05/25/23 21:40 Consult to Urology Routine Consulting Provider: Lior Tellez Reason for consultation: obstructive uropathy, note vessel crossing UPJ on ct Attending physician on discharge: Modesto Higginbotham Discharging clinician: Loan Askew DS: Diagnosis Discharge Diagnosis (1) Obstructive uropathy: Status: Acute (2) Acute kidney failure: Status: Acute (3) UPJ obstruction, acquired: Status: Acute DS: Summary Hospital Course Hospital Course: History and physical as per admitting provider. 78 year old female with history of non insulin dependent type 2 diabetes, htn, asthma/copd overlap, chronic atrial fibrillation anticoagulated with eliquis, history etoh abuse, CHF, history NSTEMI, and history nephrolithiasis?presents to the ED with her daughter and grandson for for evaluation of bilateral abdominal pain ongoing for 2 weeks but has been gradually worsening.? She reports pain primarily on the sides bilaterally that is now constant with associated nausea.? She did have an episode of vomiting last week but no recurrent vomiting.? She denies any radiation of the pain.? Denies any fevers, chills, dysuria, hematuria, increased urinary frequency, retention, urgency, or flank pain. On arrival, vital stable though slightly hypertensive to 172/80 likely secondary to pain.? Stable normocytic anemia with H/H 10.4/33.6 %.? Creatinine 2.35, baseline 0.83.? BUN 43.? Urinalysis significant for 1+ leukocytes, negative nitrites, trace blood, positive urinary sediment but negative bacteria.? CT abdomen/pelvis shows diffuse sigmoid and scattered rest of colon diverticulosis.? There is nonobstructive 9 mm radiopaque calculi in the lower pole of the left kidney.? Th ere is right UPJ obstruction with a significantly distended right kidney pelvis and a probable vessel crossing the UPJ, CTA recommended.? There is a large Bosniak type 2 left renal cyst among other findings.? ED discussed case with urology recommending full catheter insertion and admission to medicine.? In the ED, she was gently hydrated and treated with ondansetron IV morphine. 78-year-old woman treated for obstructive uropathy status post right ureteral stent on 05/28/2023. Patient developed hematuria that was persistent despite being off her Eliquis since admission. CBI started on 06/01/2023 with some improvement noted. Discussed case with urologist. Johnson catheter removed and passed voiding trial. Some hematuria is expected while stent in place. Ok to resume eliquis and continue plavix upon discharge. Plan will be for patient to follow-up in the urology office patient for stent removal. She had some episodes of low H&H but never required blood transfusion. Patient developed ORION on CKD 4, due to obstructive uropathy of right UPJ. Up to 2.35. UA and urine culture negative. Treated with IV fluids, stent placement and Johnson catheter. Creatinine trended down to 1.91 and has remained stable although has not improved all the way back to previous baseline. Recommend outpatient follow up with nephrology. Chronic atrial fibrillation with no exacerbation during hospitalization. Her Eliquis had been on hold since admission, ok to resume on discharge per urology. HFpEF. No exacerbation. Continue medications Chronic normocytic anemia. Stable H&H Asthma/COPD. No exacerbation. Continue medications Hypertension. Blood pressure had been stable off losartan. Outpatient follow up with PCP. DM type 2 continue home medications Time Spent with Patient Time attestation: Total time managing care of this patient today ____ minutes. Discharge coordination time: Greater than 30 minutes Quality: Safe Use of Opioids Does Pt have an Active Cancer Diagnosis on the Problem List?: No Quality: Stroke Does the patient have a stroke diagnosis?: No Physical Exam Vital Signs: Vital Signs: Last Vital Signs Temp 97.2 F 06/04/23 07:22 Pulse 76 06/04/23 07:45 Resp 16 06/04/23 07:45 BP 157/74 H 06/04/23 07:22 Pulse Ox 97 06/04/23 07:22 O2 Del Method Room Air 06/04/23 07:22 O2 Flow Rate 2 06/03/23 18:52 BMI result Body Mass Index 34.3 Const: General: cooperative, comfortable, no acute distress, alert and awake Nutritional Appearance: average body habitus Orientation/consciousness: patient oriented x3 Resp: Effort & Inspection: normal respiratory effort, able to speak in complete sentences, no respiratory distress and no use of accessory muscles Cardio: Rate: regular rate Heart sounds: S1 normal heart sound present and S2 normal heart sound present GI: Palpation (GI): Soft to palpation Neuro: General: patient oriented x3, moves all extremities and CN's II-XI intact bilaterally Extrem: General: Yes no pedal edema DS: Data Data Completed and Pending Completed studies during hospitalization [Text1]: Procedures Assistance with Respiratory Ventilation, Less than 24 Consecutive Hours, Continuous Positive Airway Pressure (04/09/23) Dilation of Bilateral Ureters with Intraluminal Device, Via Natural or Artificial Opening Endoscopic (03/02/23) Fluoroscopy of Kidneys, Ureters and Bladder (03/02/23) Removal of Intraluminal Device from Bladder, Via Natural or Artificial Opening Endoscopic (12/19/22) Labs on day of discharge: Laboratory Results - last 24 hr 06/03/23 06/03/23 06/04/23 15:54 20:34 07:19 POC Glucose 186 H 188 H 90 06/04/23 11:09 POC Glucose 233 H Discharge Plan Discharge Anticipated Discharge Date/Time: 06/04/23 12:20 Patient Disposition: Home, Self-Care Discharge Diagnosis: ORION on CKD stage 4 Hematuria Obstructive uropathy Referrals: Lior Tellez MD [Physician] - 1 Week Tara Webster NP [Primary Care Provider] - 1 Week Toy Dumont MD [Physician] - 1 Week Discharge Medications: Continued fluticasone propion-salmeterol [Advair Diskus] 250-50 mcg/dose blister with device 1 puff INHALATION BID albuterol sulfate 2.5 mg /3 mL (0.083 %) solution for nebulization 1 amp inhalation QID PRN (Reason: Wheezing) (DME) blood-glucose meter [OneTouch Verio Flex meter] Misc MISCELLANEOUS DIRECTED (DME) OneTouch Verio test strips Strip MISCELLANEOUS BID (DME) lancets [OneTouch Delica Plus Lancet] 33 gauge misc MISCELLANEOUS BID Eliquis 5 mg tablet 5 mg PO BID Qty: 60 0RF Hold Instructions: Resume on 06/05/23. On hold due to hematuria from obstructive uropathy and recent stent placement pyridoxine (vitamin B6) 100 mg tablet 100 mg PO DAILY tramadol 50 mg Tablet 50 mg PO Q8H PRN (Reason: Pain) ferrous gluconate 324 mg (37.5 mg iron) Tablet 324 mg PO Q2D acetaminophen 325 mg tablet 650 mg PO Q6H PRN (Reason: mild pain) polyethylene glycol 3350 17 gram Powder In Packet 17 g PO DAILY cetirizine 10 mg Tablet 10 mg PO DAILY alendronate 70 mg tablet 70 mg PO REESE@0900 lidocaine 5 % Adhesive Patch,Medicated 1 patch TOPICAL DAILY PRN (Reason: Pain (Scale Score 1-3)) Rx Instructions: leave on most painful area for up to 12 hrs docusate sodium 100 mg capsule 100 mg PO BID fluticasone propionate 50 mcg/actuation [place],Suspension 1 spray INTRANASAL DAILY PRN (Reason: Allergy Symptoms) Rx Instructions: administer into each nostril sennosides [senna] 8.6 mg tablet 1 tab PO BID simethicone [Gas Relief Extra Strength] 125 mg capsule 125 mg PO QID PRN (Reason: Indigestion) furosemide 40 mg tablet 40 mg PO DAILY famotidine 20 mg tablet 20 mg PO BID Qty: 180 2RF Fiber Laxative(methylcellulos) 500 mg tablet 500 mg PO DAILY Qty: 90 2RF metformin 850 mg tablet 850 mg PO BIDWM atorvastatin 80 mg tablet 80 mg PO DAILY albuterol sulfate [Ventolin HFA] 90 mcg/actuation HFA aerosol inhaler 2 puff inhalation Q4-6H PRN (Reason: Wheezing) clopidogrel 75 mg tablet 75 mg PO DAILY metoprolol succinate [Toprol XL] 50 mg tablet extended release 24 hr 50 mg PO DAILY Myrbetriq 50 mg tablet extended release 24 hr 50 mg PO DAILY Qty: 30 1RF Discontinued losartan 50 mg tablet 50 mg PO DAILY 90 Days Qty: 90 1RF Diet: Advance to usual diet Activity on Discharge: As tolerated Stand Alone Forms: Patient Portal Discharge page Care Plan Goals: Complete resolution of symptoms Health Concerns: ORION on CKD stage 4 Hematuria Obstructive uropathy Plan of Treatment: Follow-up with urologist in outpatient office - call to schedule appointment for stent removal Monitor for worsening hematuria, some hematuria is expected while stent in place and on blood thinner, call urology office or return to ED with worsening or gross hematuria stop taking losartan call to schedule follow up appointment with PCP for close blood pressure monitoring and to monitor kidney function recommend to follow up with nephrology to monitor kidney function Assessment: See discharge summary
[2023-06-04] MEDS: Insulin Lispro 100 UNIT/ML 3 ML VIAL SUBCUT (12:09)
--- NOTE | 2023-06-04 15:17 | MHC.CM.PN ---
Addendum entered by Reena Weiner 06/04/23 15:24: IMM DELIVERED Original Note: DP: PT HAS BEEN MEDICALLY CLEARED FOR DC HOME, NO SERVICES. RN AWARE. DAUGHTER AMBROCIO WILL TRANSPORT HOME.
== END 2023-06-04 16:29 | disposition home or self-care (01) | DRG 660 ==
LOC: HO.ED 16:50 → HO.EDOVER 21:49 → HO.S3 23:38
PROVIDERS: Nurse Practitioner Acute Care; Physician Assistant Medical; Student in an Organized Health Care Education/Training Program; Urology; Admitting Provider Physician Assistant; Emergency Provider Student in an Organized Health Care Education/Training Program; PCP Nurse Practitioner Primary Care; Visit Provider Physician Assistant Medical
PROC: 0TJB8ZZ Inspection of Bladder, Via Natural or Artificial Opening Endoscopic (ICD-10-PCS; CPT 52000; principal; 2023-05-28 16:00)
DX: N13.1 Hydronephrosis with ureteral stricture, not elsewhere classified (principal); I13.0 Hypertensive heart and chronic kidney disease with heart failure and stage 1 through stage 4 chronic kidney disease, or unspecified chronic kidney disease; I50.32 Chronic diastolic (congestive) heart failure; I48.20 Chronic atrial fibrillation, unspecified; N99.820 Postprocedural hemorrhage of a genitourinary system organ or structure following a genitourinary system procedure; R31.9 Hematuria, unspecified; N18.4 Chronic kidney disease, stage 4 (severe); N17.9 Acute kidney failure, unspecified; E11.40 Type 2 diabetes mellitus with diabetic neuropathy, unspecified; R33.8 Other retention of urine; J44.9 Chronic obstructive pulmonary disease, unspecified; Y83.8 Other surgical procedures as the cause of abnormal reaction of the patient, or of later complication, without mention of misadventure at the time of the procedure; F10.11 Alcohol abuse, in remission; E11.22 Type 2 diabetes mellitus with diabetic chronic kidney disease; D63.1 Anemia in chronic kidney disease; Z79.01 Long term (current) use of anticoagulants; Z79.02 Long term (current) use of antithrombotics/antiplatelets; Z79.84 Long term (current) use of oral hypoglycemic drugs; Z79.899 Other long term (current) drug therapy
CPT/HCPCS: 36415; 74176; 80048; 80076; 81001; 82947; 83690; 83735; 85014; 85018; 85025; 85027; 87086; 93005; 94640; 99285; C1758; C1769; C2617; J1100; J1200; J1956; J2270; J2370; J2371; J2405; J3010; Q9967

== ENCOUNTER → 2023-05-25 17:11 | Outpatient (BNV) | payer OTHER, SELFPAY | PROVIDERS: Admitting Provider Physician Assistant; Emergency Provider Student in an Organized Health Care Education/Training Program; PCP Nurse Practitioner Primary Care; Visit Provider Internal Medicine Cardiovascular Disease | DX: I48.91 Unspecified atrial fibrillation (principal); R94.31 Abnormal electrocardiogram [ECG] [EKG] | CPT/HCPCS: 93010 ==

== ENCOUNTER → 2023-05-25 21:40 | Outpatient (BNV) | payer OTHER, SELFPAY | PROVIDERS: Admitting Provider Physician Assistant; Emergency Provider Student in an Organized Health Care Education/Training Program; PCP Nurse Practitioner Primary Care; Visit Provider Physician Assistant | DX: N13.9 Obstructive and reflux uropathy, unspecified (principal); N17.9 Acute kidney failure, unspecified; N13.5 Crossing vessel and stricture of ureter without hydronephrosis | CPT/HCPCS: 99223; 99232; 99233; 99239 ==

== ENCOUNTER → 2023-05-25 21:40 | Outpatient (BNV) | payer OTHER, SELFPAY | PROVIDERS: Admitting Provider Physician Assistant; Emergency Provider Student in an Organized Health Care Education/Training Program; PCP Nurse Practitioner Primary Care; Visit Provider Urology | DX: N17.9 Acute kidney failure, unspecified (principal); N13.9 Obstructive and reflux uropathy, unspecified; R31.0 Gross hematuria | CPT/HCPCS: 52332; 99222; 99232 ==

== ENCOUNTER 2023-06-12 13:24 | Outpatient (REF) | payer OTHER, SELFPAY ==
--- NOTE | 2023-06-12 14:11 | PFT_ITS ---
INDICATION: Asthma and dyspnea. SPIROMETRY: FEV to FVC 71% with an FEV1 of 1.23 L, which is 67% predicted and FVC of 1.73 L, which is 71% predicted. Appears to have no significant response to bronchodilator noted. Maximum voluntary ventilation 52% predicted. LUNG VOLUMES: 37% predicted with expiratory reserve volume of 51% predicted. DIFFUSION CAPACITY: DLCO 75% predicted. COMPARISONS: None. INTERPRETATION: No definitive obstructive nor restrictive ventilatory defects identified, although patient appears to have an obstructive physiology based on the concavity of the expiratory limb of the flow volume loop consistent with a moderate obstructive ventilatory defect, likely a component of COPD or uncontrolled asthma. No significant response to bronchodilator noted. The patient does have a moderate decrease in maximum voluntary ventilation, which is likely secondary to deconditioning. Lung volumes are within normal limits and the patient does have mild diffusion impairment. Should correct for hemoglobin. Clinical correlation warranted. MD LUIS ANTONIO Bloom/BLAYNE / [phone]
== END 2023-06-12 13:25 | disposition home or self-care (01) ==
LOC: HO.RESP 13:24
PROVIDERS: PCP Nurse Practitioner Primary Care; Visit Provider Internal Medicine Pulmonary Disease
DX: J45.909 Unspecified asthma, uncomplicated (principal)
CPT/HCPCS: 94010; 94727; 94729

== ENCOUNTER → 2023-06-12 14:11 | Outpatient (BNV) | payer OTHER, SELFPAY | PROVIDERS: PCP Nurse Practitioner Primary Care; Visit Provider Hospitalist | DX: J45.909 Unspecified asthma, uncomplicated (principal) | CPT/HCPCS: 94060; 94727; 94729 ==

== ENCOUNTER 2023-06-19 09:16 | Outpatient (REF) | payer OTHER, SELFPAY ==
[2023-06-19 11:21] LABS: MANUAL DIFF FLAG NO
[2023-06-19 11:45] LABS: Basophils Absolute Auto 0.1 X10*3/uL (0.0-0.2); Basophils Percent Auto 0.9 % (0-2); Eosinophils Absolute Auto 0.4 X10*3/uL (0.0-0.4); Eosinophils Percent Auto 7.1 % (0-4); Hematocrit 27.5 % (37.0-47.0); Hemoglobin 8.3 g/dl (12.0-16.0); Imm Gran Abs Auto 0.01 X10*3/uL (0.00-0.03); Imm Gran Pct Auto 0.2 % (0.0-0.4); Lymphocytes Absolute Auto 1.1 X10*3/uL (1.2-4.9); Mean Corpuscular HGB Conc 30.2 g/dl (31.0-35.0); Mean Corpuscular Hemoglobin 26.2 pg (27.0-33.0); Mean Corpuscular Volume 86.8 fL (80.0-98.0); Mean Platelet Volume 10.7 fL (9.4-12.3); Monocytes Absolute Auto 0.6 X10*3/uL (0.1-1.2); Monocytes Percent Auto 10.9 % (2-11); Neutrophils Absolute Auto 3.2 x10*3/uL (2.0-8.3); Neutrophils Percent Auto 59.9 % (45-73); Platelet Count 293 X10*3/uL (160-400); Red Blood Count 3.17 X10*6/uL (4.20-5.50); White Blood Count 5.3 X10*3/uL (4.8-10.8)
[2023-06-19 12:13] LABS: Estimated Average Glucose 154 mg/dL
[2023-06-19 12:48] LABS: Alanine Aminotransferase 23 U/L (0-31); Albumin Level 3.9 g/dL (3.5-5.0); Alkaline Phosphatase 100 U/L (39-117); Anion Gap 14 (12-20); Aspartate Amino Transferase 30 U/L (5-31); Bilirubin Total 0.4 mg/dL (0.0-1.0); Blood Urea Nitrogen 28 mg/dL (9-16); Calcium 9.6 mg/dL (8.4-10.2); Carbon Dioxide 26 mmol/L (22-29); Chloride 105 mmol/L (96-108); Cholesterol 148 mg/dL; Estimated Glomerular Filt Rate 38; Glucose Random 123 mg/dL (60-115); HDL Cholesterol 48 mg/dL; Iron 44 mcg/dL (30-160); LDL Cholesterol Calculated 78 mg/dl; Magnesium 2.1 mg/dL (1.6-2.6); Percent Iron Saturation 15 % (15-50); Phosphorus 3.3 mg/dL (2.7-4.5); Potassium 3.9 mmol/L (3.3-5.1); Sodium 141 mmol/L (135-145); Total Iron Binding Capacity 291 mcg/dL (228-428); Total Protein 7.2 g/dL (6.5-8.0); Triglycerides 113 mg/dL; Unsaturated Iron Binding 247 ug/dL
[2023-06-19 13:03] LABS: Ferritin 100 ng/mL (10-250); TSH reflex Free T4 2.05 uIU/mL (0.32-4.0)
[2023-06-19 13:24] LABS: CT PCR NOT DETECTED (Not Detect.); NG PCR NOT DETECTED (Not Detect.)
[2023-06-19 13:40] LABS: Microalbum/Creatinine Ratio Ur 655.9 ug/mg cr
[2023-06-19 13:50] LABS: Vitamin B12 514 pg/mL (200-900)
[2023-06-20 03:29] LABS: Syphilis Screen Nonreactive (Nonreactive)
[2023-06-20 04:05] LABS: ~Hepatitis C Antibody Nonreactive (Nonreactive)
[2023-06-20 04:17] LABS: HBS Num1 3.89 mIU/mL (0-7.99); HBc Num1 0.08 S/CO (0.00-0.79); HBsAGNum1 0.38 S/CO (0.00-0.99); HIV AB/AG Nonreactive (Nonreactive); HIV Num 1 0.05 S/CO (0.00-0.99); Hepatitis B Core Antibody Nonreactive (Nonreactive); Hepatitis B Surface Antigen Negative (Negative); ~Hepatitis B Surface Antibody NONREACTIVE (Nonreactive)
[2023-06-22 12:04] LABS: Calcium (PTHI) 9.4 mg/dL (8.6-10.4); PTHI 78 pg/mL (16-77)
[2023-06-24 15:58] LABS: NT-proBNP 10576 pg/mL (<450)
[2023-06-25 10:29] LABS: VITAMIN D (1,25 OH) D3 26 pg/mL; Vit D (1,25-Dihydroxy) Total 26 pg/mL (18-72); Vitamin D (1,25 OH) D2 <8 pg/mL
== END 2023-06-19 09:17 | disposition home or self-care (01) ==
LOC: HO.HHCL 09:16
PROVIDERS: Visit Provider Student in an Organized Health Care Education/Training Program
DX: Z00.00 Encounter for general adult medical examination without abnormal findings (principal); Z11.4 Encounter for screening for human immunodeficiency virus [HIV]; N18.4 Chronic kidney disease, stage 4 (severe); I50.32 Chronic diastolic (congestive) heart failure; Z20.2 Contact with and (suspected) exposure to infections with a predominantly sexual mode of transmission; Z13.1 Encounter for screening for diabetes mellitus
CPT/HCPCS: 0353U; 80053; 80061; 82043; 82607; 82652; 82728; 82746; 83036; 83540; 83735; 83880; 83970; 84100; 84443; 85025; 86704; 86706; 86780; 86803; 87340; 87389

== ENCOUNTER → 2023-06-23 15:08 | Outpatient (REF) | payer OTHER, SELFPAY ==
--- NOTE | 2023-06-23 15:12 | CA_ITS ---
Transthoracic Echocardiogram Patient (Last, First, Middle): Roseanna Hurt, Gender: Female Date of : 1945 Age: 78 Procedure Date: 06/23/2023 Procedure Type: Transthoracic Echocardiogram Location: OP Height: 157.48 cm Weight: 83.01 kg BSA: 1.84 m2 Heart Rate: bpm BP: 118 / 60 mmHg Public Housing Manager: Referring MD: Colby Cadena MD Set Up Operator Tool: Colby Cadena MD Symptoms: I50.9 - Heart failure, unspecified Study Quality: Fair ECG Rhythm: Sinus Conclusions: - Normal left ventricular cavity size. There is moderately increased left ventricular wall thickness. The left ventricular systolic function is borderline reduced. The visually estimated ejection fraction is between 45-50%. - Mildly increased right ventricular cavity size. There is mildly decreased right ventricular systolic function. - The left atrium is severely dilated. - There is moderate mitral valve regurgitation. - Significantly elevated right atrial pressure. Findings Left Ventricle Normal left ventricular cavity size. There is moderately increased left ventricular wall thickness. The left ventricular systolic function is borderline reduced. The visually estimated ejection fraction is between 45 50%. There is no evidence of regional wall motion abnormalities. Diastolic function is indeterminate on the basis of available data. Right Ventricle Mildly increased right ventricular cavity size. There is mildly decreased right ventricular systolic function. Atria The left atrium is severely dilated. Aortic Valve There is a normal trileaflet aortic valve. There is moderate calcification of the aortic valve. There is no aortic valve stenosis. There is no aortic valve regurgitation. Mitral Valve There is mild anterior and posterior mitral leaflet thickening. There is moderate mitral valve regurgitation. There is no mitral valve stenosis. Pulmonic Valve The pulmonic valve is likely normal. Tricuspid Valve Normal tricuspid valve structure and function. There is trace tricuspid valve regurgitation. Significantly elevated right atrial pressure. There is no evidence of pulmonary hypertension. Great Vessels All visible segments of the aorta are normal in size. Venous The inferior vena cava is dilated and collapses less than 50% with inspiration. Pericardium/Pleural There is no evidence of pericardial effusion. Prior Study Comparison Changes noted compared to prior study. LVEF 45-50%, Moderate MR, Severe LA dilation. Mild RV dysfunction. Measurements 2D Linear Measurements IVSd: 1.23 0.6-0.9/0.6-1.0 cm LVIDd: 4.67 3.9-5.3/4.2-5.9 cm LVIDd Index: 2.54 2.4-3.2/2.2-3.1 cm/m2 LVIDs: 3.64 2.0-3.6 cm LVPWd: 1.30 0.7-1.1 cm Ao Root: 3.10 2.1-3.5 cm LA Diam: 5.30 2.7-3.8/3.0-4.0 cm LAIDs Index: 2.88 1.5-2.3 cm/m2 LV Mass: 282.26 67-162/88-224 g LV Mass Index: 153.40 43-95/49-115 g/m2 LVOT Diam: 2.00 3.0+(-)1.3 cm 2D Systolic Function EF 4C: 42.50 >55% EF 2C: 45.20 >55% EF BiP: 41.50 >55% Mitral Valve MR Vol - PW Dopp: 51.60 MR VTI: 2.15 MR ERO: 24.00 MR Alias Kwesi: 0.35 MR RAD: 0.80 Aortic Valve AoV Pk Kwesi: 2.91 AoV Mn Kwesi: 0.92 AoV VTI: 0.35 AoV Pk Grad: 34.00 Aov Mn Grad: 4.00 QUETA Cont.VTI: 1.38 LVOT LVOT Pk Kwesi: 0.65 LVOT Mn Kwesi: 0.44 LVOT VTI: 0.15 LVOT Pk Grad: 2.00 LVOT Mn Grad: 1.00 LVOT Diam: 2.00 LVOT Area: 3.14 Right Ventricle TAPSE (mm): 19.00 Tricuspid Valve TR Pk Kwesi: 2.11 TR Pk Grad: 18.00 RA Press: 3.00 RVSP: 21.00 Great Vessels Aorta Ao Root-2D: 3.10 2.0-3.7 cm Ao Asc: 3.40 2.1-3.4 cm Pulmonary Valve PV Pk Kwesi: 0.92 Peak PV Grad: 3.00 Updated in Other Vendor System with Status of Final Colby Cadena MD electronically signed on 06/26/2023 11:33:23 AM with status of Final
== END ==
LOC: HO.CARD 15:08
PROVIDERS: PCP Nurse Practitioner Primary Care; Visit Provider Internal Medicine Cardiovascular Disease
DX: I50.9 Heart failure, unspecified (principal)
CPT/HCPCS: 93306

== ENCOUNTER → 2023-06-23 15:12 | Outpatient (BNV) | payer OTHER, SELFPAY | PROVIDERS: PCP Nurse Practitioner Primary Care; Visit Provider Internal Medicine Cardiovascular Disease | DX: I34.0 Nonrheumatic mitral (valve) insufficiency (principal) | CPT/HCPCS: 93306 ==

== ENCOUNTER 2023-06-24 14:50 | Outpatient (AMB) | payer OTHER, SELFPAY ==
--- NOTE | 2023-06-24 15:12 | A.OFFVIS_ITS ---
Intake Vital Signs 06/24/23 15:13 Height 5 ft 2 in Weight 180 lb 12.465 oz BMI 33.1 BP 120/60 Blood Pressure Location Lt brachial Position Sitting Pulse 72 Intake Visit Reasons: OVERDUE FUP AFTER ECHO Intake Note: overdue f/u after echo Network Systems Analyst Required: No Allergies montelukast [Singulair] Allergy (Unknown, Verified 06/24/23 15:21) itching/rash From Singulair Allergy (Intermediate, Uncoded 05/25/23 11:27) RASH Medication List - Last Reconciled 06/24/23 by Colby Cadena MD acetaminophen 650 mg PO Q6H PRN albuterol sulfate 1 amp inhalation QID PRN albuterol sulfate 90 mcg/actuation (Ventolin HFA) 2 puffs inhalation Q4-6H PRN apixaban (Eliquis) 5 mg PO BID atorvastatin 80 mg PO DAILY blood sugar diagnostic (Kaymbuuch Verio test strips) blood-glucose meter (SyncapseTouch Verio Flex Meter) clopidogrel 75 mg PO DAILY docusate sodium 100 mg PO BID famotidine 20 mg PO BID ferrous gluconate 324 mg PO Q2D fluticasone propion-salmeterol 250-50 mcg/dose (Advair Diskus) 1 puff inhalation BID fluticasone propionate 50 mcg/actuation 1 spray intranasal DAILY PRN furosemide 40 mg PO DAILY lancets (SyncapseTouch Delica Plus Lancet) lidocaine 5% 1 patch topical DAILY PRN metformin 850 mg PO BIDWM methylcellulose (laxative) (Fiber Laxative (methylcellulose)) 500 mg PO DAILY metoprolol succinate ER (Toprol XL) 50 mg PO DAILY mirabegron ER (Myrbetriq) 50 mg PO DAILY polyethylene glycol 3350 17 grams PO DAILY pyridoxine (vitamin B6) 100 mg PO DAILY sennosides (senna) 1 tab PO BID simethicone (Gas Relief Extra Strength) 125 mg PO QID PRN tramadol 50 mg PO Q8H PRN HPI HPI Comments History of Present Illness Details 78-year-old female who is presenting to clinic after recent cardiac catheterization performed at [facility]. She came to [facility] and was diagnosed with congestive heart failure. At that time she also complained of some chest pains. The chest pains appear to be atypical but she had diffuse T-wave inversions anterolateral leads with mildly elevated troponin levels and ruled in for NSTEMI. She was transferred for cardiac catheterization and it was noticed that she had severe mid LAD stenosis. This was treated with a drug-eluting stent. Subsequent to that she was in the hospital because there was some concern about bradycardia and it appears her diltiazem was stopped at that stage. She also was taken off the aspirin and was discharged home with apixaban and clopidogrel. She previously had atrial fibrillation and was supposed to be on Eliquis. She was accompanied by her daughter. The daughter reported that 5 days ago the patient complained of some shortness of breath and had to step out of the house and went to the porch to get some air. She also has orthopnea. She has peripheral edema. She is taking her medications regularly and has a pill box. No bleeding concerns. 06/24/23: She returns for follow-up. She had echocardiography yesterday showed low normal ejection fraction and moderate to severe mitral regurgitation. The daughter said that the patient has been experiencing some orthopnea at night time. She has been taking medication regularly. Denying any chest discomfort or significant shortness of breath with activity. She is not very active though. She had some blood in her urine due to ureteric stents but nothing gross recently. [facility] Medical History (Updated 06/24/23 @ 15:44 by Colby Cadena MD) Alcohol abuse Anxiety Arthritis Asthma Asymmetrical thyroid Atrial fibrillation CHF (congestive heart failure) COPD (chronic obstructive pulmonary disease) COVID-19 Diabetes Gout Hypertension Knee arthropathy Nephrolithiasis NSTEMI (non-ST elevated myocardial infarction) Obstruction, uropathy Osteoarthritis Renal cyst, acquired, left Thrombosed external hemorrhoid Surgical History History of total knee arthroplasty Hx of colonoscopy Social History Household Members: Family Household Members Other:: DAUGHTER Housing: Apartment Housing Other:: low income housing Do you presently have visiting nurse or other home services: No (granddaughter is outdoor adventure instructor) Unable to assess alcohol history related to: Unknown Alcohol intake: unknown Patient Tobacco Use Status: Never used Tobacco e-Cigarette/Vaping Use: Never Used Second Hand Smoke Exposure: No Advance Directives Date on File: 10/30/22 service: No Current occupational status: disabled Review of Systems ENT Reports dizziness Card Denies chest pain, Denies chest pain at rest, Denies chest pain with activity, Denies rapid heart rate, Denies pedal edema, Denies edema, Denies leg edema, Denies lightheadedness, Denies palpitations, Denies dyspnea, Denies dyspnea on exertion and Denies orthopnea Resp Denies cough, Denies dyspnea and Denies dyspnea on exertion GI Denies hematochezia and Denies change in stool character Musc Denies abnormal gait, Reports limited range of motion, Reports muscle cramps, Denies muscle weakness, Denies numbness, Denies radiating pain into limb, Denies stiffness and Denies tingling Neuro Denies abnormal gait, Reports dizziness, Denies numbness and Denies tingling Endo Denies palpitations Physical Exam Vital Signs: Last Vital Signs Pulse 72 06/24/23 15:13 BP 120/60 06/24/23 15:13 BMI result Body Mass Index 33.1 GENERAL APPEARANCE: in no acute distress, frail. Mildly short of breath. NECK: no carotid bruit, no jugular venous distention. SKIN: no suspicious lesions, warm and dry. HEART: no murmurs, irregular rate and rhythm. LUNGS: clear to auscultation bilaterally. ABDOMEN: soft, nontender. EXTREMITIES: Mild edema. PERIPHERAL PULSES: equal. NEUROLOGIC: No gross deficits, AAO X 3 Office Procedures EKG Details: Atrial fibrillation 72 beats per minute, normal axis, nonspecific T-wave changes, QTC 446 milliseconds. [id number], Complete Assessment & Plan Assessment & Plan (1) Persistent atrial fibrillation: Code(s): I48.19 - Other persistent atrial fibrillation (2) Acute on chronic congestive heart failure: Code(s): I50.9 - Heart failure, unspecified (3) Mitral regurgitation: Code(s): I34.0 - Nonrheumatic mitral (valve) insufficiency (4) Cardiomyopathy: Code(s): I42.9 - Cardiomyopathy, unspecified Plan Pleasant 78 year female who had NSTEMI with LAD territory wall motion abnormality with cardiac catheterization showing severe LAD stenosis which was treated with drug-eluting stent. She had cardiomyopathy which has mostly resolv ed at this stage with low normal ejection fraction echocardiography. She is on Plavix and Eliquis. She has chronic atrial fibrillation at this point with good rate control. Taking medications regularly. Echocardiography has shown some concern for mitral regurgitation. She is also complaining of some orthopnea. Increasing the Lasix 40 mg twice a day. We will bring her back in few weeks. Before visit we will repeat labs including BNP, BMP, magnesium and CBC. Etiology of the mitral regurgitation is unclear currently. My hope is that with diuretics and adjustment of medications we can improve the mitral regurgitation. If she has recurrent heart failure episodes then we may have to do a IRMA to understand the anatomy better and discuss about MitraClip if she has appropriate anatomy. Thank you for allowing me to participate in the care of your patient. Please feel free to contact me if you have any questions. Orders: Orders Basic Metabolic Panel Today I50.9 - Heart failure, unspecified B Type Natriuretic Peptide Today I50.9 - Heart failure, unspecified Magnesium Today I50.9 - Heart failure, unspecified Complete Blood Count no Diff Today I50.9 - Heart failure, unspecified Medications: New furosemide 40 mg PO BID 100 tabs 3RF I50.9 - Heart failure, unspecified Discontinued sennosides 8.6 mg PO BID PRN 180 tabs 2RF constipation simethicone 125 mg PO TID-QID PRN 120 caps 6RF Indigestion Coding Level of Care Code Est Pt Level 4 (66432) Diagnoses Persistent atrial fibrillation I48.19 Acute on chronic congestive heart failure I50.9 Mitral regurgitation I34.0 Cardiomyopathy I42.9 CPT Codes EKG - CPT: 13991-[id number], Complete ([id number])
[2023-06-24 15:13] VITALS: BP 120/60; PULSE 72; BMI 33.1
== END 2023-06-24 15:45 | disposition home or self-care (01) ==
PROVIDERS: PCP Nurse Practitioner Primary Care; Referring Provider Nurse Practitioner Primary Care; Visit Provider Internal Medicine Cardiovascular Disease
DX: I48.19 Other persistent atrial fibrillation (principal); I50.9 Heart failure, unspecified; I34.0 Nonrheumatic mitral (valve) insufficiency; I42.9 Cardiomyopathy, unspecified
CPT/HCPCS: 93010; 99214

== ENCOUNTER → 2023-06-24 14:50 | Outpatient (BNVA) | payer OTHER, SELFPAY | PROVIDERS: PCP Nurse Practitioner Primary Care; Referring Provider Nurse Practitioner Primary Care; Visit Provider Internal Medicine Cardiovascular Disease | DX: I11.0 Hypertensive heart disease with heart failure (principal); I50.9 Heart failure, unspecified; I21.4 Non-ST elevation (NSTEMI) myocardial infarction; I48.19 Other persistent atrial fibrillation; I34.0 Nonrheumatic mitral (valve) insufficiency; I42.9 Cardiomyopathy, unspecified; Z98.890 Other specified postprocedural states | CPT/HCPCS: 93005; 99212 ==

== ENCOUNTER 2023-07-07 14:02 | Outpatient (AMB) | payer OTHER, SELFPAY ==
[2023-07-07 14:06] VITALS: BP 142/78; PULSE 70; O2SAT 98; BMI 34.3
--- NOTE | 2023-07-07 14:06 | A.OFFVIS_ITS ---
Intake Vital Signs 07/07/23 14:06 Height 5 ft 2 in Weight 187 lb 6.287 oz BMI 34.3 BP 142/78 H Blood Pressure Location Lt brachial Position Sitting Pulse 70 Pulse Source Doppler Pulse Oximetry (%) 98 Oxygen Delivery Method Room Air Intake Visit Reasons: asthma Allergies montelukast [Singulair] Allergy (Unknown, Verified 07/07/23 14:09) itching/rash From Singulair Allergy (Intermediate, Uncoded 05/25/23 11:27) RASH HPI asthma HPI Details 78-year-old lady, nonsmoker, with underlying history of AFib, CAD, diastolic dysfunction undergoing cardiac workup referred for evaluation of pulmonary component to her dyspnea.? Patient has completed her pulmonary function tests that is essentially normal. She continues on her Advair and albuterol MDI with excellent control of her symptoms. [facility] Medical History (Updated 06/24/23 @ 15:44 by Colby Cadena MD) Alcohol abuse Anxiety Arthritis Asthma Asymmetrical thyroid Atrial fibrillation CHF (congestive heart failure) COPD (chronic obstructive pulmonary disease) COVID-19 Diabetes Gout Hypertension Knee arthropathy Nephrolithiasis NSTEMI (non-ST elevated myocardial infarction) Obstruction, uropathy Osteoarthritis Renal cyst, acquired, left Thrombosed external hemorrhoid Surgical History History of total knee arthroplasty Hx of colonoscopy Social History Household Members: Family Household Members Other:: DAUGHTER Housing: Apartment Housing Other:: low income housing Do you presently have visiting nurse or other home services: No (granddaughter is lead applications developer) Unable to assess alcohol history related to: Unknown Alcohol intake: unknown Patient Tobacco Use Status: Never used Tobacco e-Cigarette/Vaping Use: Never Used Second Hand Smoke Exposure: No Advance Directives Date on File: 09/07/22 service: No Current occupational status: disabled Review of Systems Const Denies daytime sleepiness, Denies excessive sweating, Denies fatigue, Denies fever(s), Denies lethargy, Denies malaise, Denies night sweats, Denies snoring and Denies weight loss Eyes Denies blurry vision and Denies itchy eyes ENT Denies nasal congestion, Denies post nasal drip, Denies sinus pain, Denies sinus pressure and Denies other ( Thrush) Card Denies chest pain, Denies pedal edema, Denies dyspnea, Denies orthopnea and Denies paroxysmal nocturnal dyspnea Resp Denies cough, Denies hemoptysis, Denies excessive phlegm production, Denies dyspnea, Denies snoring and Denies wheezing GI Denies abdominal pain and Denies heartburn Musc Denies myalgias, Denies arthralgias and Denies joint swelling Skin/Breast Denies rash Neuro Denies memory loss and Denies seizure-like activity Psych Denies abnormal sleep pattern, Denies anxiety and Denies memory loss Endo Denies excessive sweating, Denies fatigue and Denies heat intolerance Tone/Lymph Denies easy bruising Aller/Immun Denies itchy eyes, Denies seasonal rhinorrhea and Denies wheezing Physical Exam Vital Signs: Last Vital Signs Pulse 70 07/07/23 14:06 BP 142/78 H 07/07/23 14:06 Pulse Ox 98 07/07/23 14:06 Oxygen Delivery Method Room Air 07/07/23 14:06 BMI result Body Mass Index 34.3 Const General: no acute distress and alert Nutritional Appearance: not obese Orientation/consciousness: Other orientation findings ( oriented) HEENT Head: Yes atraumatic Eyes General: appearance normal, both eyes and all related structures Sclerae: sclerae normal EOM: EOMs intact bilaterally Neck Neck: Yes supple Lymphatic: no lymphadenopathy noted Resp Effort & Inspection: normal respiratory effort and no use of accessory muscles Auscultation: clear to auscultation bilaterally Cardio Rate: regular rate Rhythm: regular rhythm Heart sounds: no gallops, no murmurs and no rubs Skin General skin exam: other ( warm) Extrem General: No clubbing, No cyanosis and No edema Assessment & Plan Assessment & Plan (1) Asthma: Code(s): J45.909 - Unspecified asthma, uncomplicated Plan: Well controlled current regimen of Advair and albuterol MDI. Continue current regimen. (2) Dyspnea on exertion: Code(s): R06.09 - Other forms of dyspnea Plan: It appears that patient symptoms correlate with decompensation of her diastolic congestive heart failure and worsening of her AFib. Patient continues to follow-up with Cardiology service. Medications: Discontinued sennosides 8.6 mg PO BID PRN 180 tabs 2RF constipation simethicone 125 mg PO TID-QID PRN 120 caps 6RF Indigestion Coding Level of Care Code Est Pt Level 4 (85767) Diagnoses Asthma J45.909 Dyspnea on exertion R06.09
== END 2023-07-07 14:38 | disposition home or self-care (01) ==
PROVIDERS: PCP Nurse Practitioner Primary Care; Visit Provider Internal Medicine Pulmonary Disease
DX: J45.909 Unspecified asthma, uncomplicated (principal); R06.09 Other forms of dyspnea
CPT/HCPCS: 99214

== ENCOUNTER → 2023-07-07 14:02 | Outpatient (BNVA) | payer OTHER, SELFPAY | PROVIDERS: PCP Nurse Practitioner Primary Care; Visit Provider Internal Medicine Pulmonary Disease | DX: J45.909 Unspecified asthma, uncomplicated (principal); R06.09 Other forms of dyspnea; Z79.899 Other long term (current) drug therapy | CPT/HCPCS: 99212 ==

== ENCOUNTER 2023-07-17 15:57 | Outpatient (REF) | payer OTHER, SELFPAY ==
--- NOTE | ~2023-07-17 | US_ITS ---
EXAM: US extremity nonvascular COMPARISON: None TECHNIQUE: Sonographic evaluation of the right proximal calf was performed. FINDINGS: Mild subcutaneous edema. No organized fluid collection. No lymphadenopathy. No soft tissue mass. US/US extremity nonvascular IMPRESSION: 1. Mild subcutaneous edema. No organized fluid collection.
== END 2023-07-17 15:58 | disposition home or self-care (01) ==
LOC: HO.US 15:57
PROVIDERS: PCP Nurse Practitioner Primary Care; Visit Provider Student in an Organized Health Care Education/Training Program
DX: S80.11XA Contusion of right lower leg, initial encounter (principal)
CPT/HCPCS: 76882

== ENCOUNTER 2023-07-23 13:28 | Outpatient (REF) | payer OTHER, SELFPAY | END 2023-07-23 13:29 | disposition home or self-care (01) | LOC: HO.LAB 13:28 | PROVIDERS: Visit Provider Urology | DX: N39.0 Urinary tract infection, site not specified (principal); N13.5 Crossing vessel and stricture of ureter without hydronephrosis; N18.9 Chronic kidney disease, unspecified; N20.0 Calculus of kidney | CPT/HCPCS: 81003; 87086; 99212 ==

== ENCOUNTER 2023-07-23 13:28 | Outpatient (AMB) | payer OTHER, SELFPAY ==
--- NOTE | 2023-07-03 05:35 | A.OFFVIS_ITS ---
Intake Intake Visit Reasons: s/p [facility] [place]/ 3 month u/s Allergies montelukast [Singulair] Allergy (Unknown, Verified 06/24/23 15:21) itching/rash From Singulair Allergy (Intermediate, Uncoded 05/25/23 11:27) RASH HPI HPI Comments History of Present Illness Details Roseanna is a 78-year-old female who presents today to the office for a 3-month follow-up. 07/03/2023? Roseanna is followed for a 3-month follow-up. She was referred to the office by [facility] for obstructive uropathy and hematuria. She was last seen by me on 04/01/2023 for chronic kidney disease. Advised the patient to discontinue Myrbetriq at that time. Renal US and blood work including BUN and creatinine prior was ordered, and was advised to follow up after 3 months at that time. I reviewed the CT of the abdomen/pelvis results from 05/27/2023 revealed severe right hydroureteronephrosis with transition point at the right ureteropelvic junction. There appears to be a crossing vessel -- evaluation limited by lack of intravenous contrast. Right perinephric stranding. Nonobstructing left renal calculi. No hydronephrosis. Multiseptated complex posterior midpole left renal cyst. Bosniak 2F classification. Small right pleural effusion. I reviewed the urine culture results from 05/29/2023 which came back negative for bacteria. Review of charts: Last visit: 04/01/23-- The patient is a Indonesian speaking female. She is here with a relative who interprets and a Certified translator and interpreter also present. The patient was last seen in the office on 03/16/23 and at that I discussed leaving in the stents for 6 weeks. She had since been to the emergency room for blood in the urine and have treated for suspected UTI and underwent urine culture. Blood work reviewed-- BUN--03/26/23--25, 03/10/23--19, 03/05/23--31; Creatinine--03/26/23--1.12, 03/10/23--1.05, 03/05/23--1.71.?? I discussed with the patient that? since the stents have been in place the kidney function has improved and by removing the stents it may affect the kidney function. The patient still is adamant about removing the ureteral stents and indicates that she understands it may affect her kidney function Evaluation today:? Cystoscopy Bilateral stents? removed. Plan: Discontinue Myrbetriq. Renal US was ordered. Blood work including BUN and creatinine prior was ordered.? Follow-up after 3 months. 07/03/2023: Evaluation today?UA? 07/03/2023: Plan: [facility] Medical History (Updated 06/24/23 @ 15:44 by Colby Cadena MD) Alcohol abuse Anxiety Arthritis Asthma Asymmetrical thyroid Atrial fibrillation CHF (congestive heart failure) COPD (chronic obstructive pulmonary disease) COVID-19 Diabetes Gout Hypertension Knee arthropathy Nephrolithiasis NSTEMI (non-ST elevated myocardial infarction) Obstruction, uropathy Osteoarthritis Renal cyst, acquired, left Thrombosed external hemorrhoid Surgical History History of total knee arthroplasty Hx of colonoscopy Social History Household Members: Family Household Members Other:: DAUGHTER Housing: Apartment Housing Other:: low income housing Do you presently have visiting nurse or other home services: No (granddaughter is rating officer) Unable to assess alcohol history related to: Unknown Alcohol intake: unknown Patient Tobacco Use Status: Never used Tobacco e-Cigarette/Vaping Use: Never Used Second Hand Smoke Exposure: No Advance Directives Date on File: 09/07/22 service: No Current occupational status: disabled Results Reviewed Results Reviewed: Ordered:? Urine Culture? Procedure?Result?Verified?Site ? Urine Culture? Final?05/31/23-1248 ? No growth.? Date of Service: 05/27/23 EXAMINATION: CT ABDOMEN AND PELVIS WITHOUT CONTRAST? CLINICAL INFORMATION: Follow-up evaluation.? COMPARISON: 05/25/2023 FINDINGS: LUNG BASES: Small right pleural effusion.? LIVER, GALLBLADDER, AND BILIARY TREE: The noncontrast liver is normal in size and contour. No biliary ductal dilatation is present. The gallbladder is unremarkable with no evidence of radiopaque gallstones, gallbladder wall thickening, or obvious pericholecystic inflammatory changes.? PANCREAS: Atrophic. SPLEEN: Not enlarged. ADRENAL GLANDS: No adrenal masses. KIDNEYS AND URETERS: Atrophic left kidney. There are nonobstructed left renal calculi with the largest measuring 8 mm in the lower pole. Anterior mid pole cyst measures 4.6 x 5.0 cm. Posterior midpole cyst measures 8.3 x 7.1 cm with multiple septations some exhibiting calcification. Both measure fluid attenuation. Marked right hydronephrosis with right perinephric stranding. There is an abrupt transition point at the ureteropelvic junction. BLADDER: Decompressed with indwelling Johnson catheter. GASTROINTESTINAL TRACT: Small and large bowel loops are of normal caliber. No small bowel obstruction. Appendix is within normal limits. Moderate fecal retention in the colon. Extensive diverticular disease of the sigmoid colon. ABDOMINAL WALL: Fat-containing left inguinal hernia.? LYMPH NODES: No bulky abdominal or pelvic lymphadenopathy. VASCULAR: Normal caliber abdominal aorta. PELVIC VISCERA: Uterus is surgically absent. OSSEOUS STRUCTURES: No destructive bone lesions. IMPRESSION: Severe right hydroureteronephrosis with transition point at the right ureteropelvic junction. There appears to be a crossing vessel -- evaluation limited by lack of intravenous contrast. Right perinephric stranding. Nonobstructing left renal calculi. No hydronephrosis. Multiseptated complex posterior midpole left renal cyst. Bosniak 2F classification. Small right pleural effusion. Assessment & Plan Assessment & Plan Orders: Orders AMB Urinalysis Automated Today Z13.9 - Encounter for screening, unspecified AMB Post Void Residual by ultrasound Today N39.8 - Other specified disorders of urinary system Medications: Discontinued sennosides 8.6 mg PO BID PRN 180 tabs 2RF constipation simethicone 125 mg PO TID-QID PRN 120 caps 6RF Indigestion Patient Instructions: The patient had an opportunity to ask questions regarding treatment plan. All questions were answered. Imaging, Laboratory studies and physical exam results were discussed and reviewed in detail. No major barriers to understanding were identified. The patient expressed understanding and agreement with the above treatment plan.? ? ? The patient is aware they should contact our office by phone for worsening of their current condition or the appearance of new symptoms. Compliance is encouraged with any medications and followup testing that is ordered.? ? ? It is a privilege to be allowed the opportunity to participate in the urologic care of your patient. If you have any questions or concerns regarding treatment for the above conditions please do not hesitate to contact me. The office telephone contact is [phone].? ? ? This note is constructed in part using voice recognition software. While every effort has been made to ensure accuracy soft work wrapper layer and examiner errors may have been included.? ? ? Yours sincerely,? ? ? Jacquie Mcgraw MD? ? Coding Diagnoses
--- NOTE | 2023-07-23 13:37 | A.OFFVIS_ITS ---
Intake Intake Visit Reasons: s/p [facility] admit/ 3 month u/s Intake Note: Patient presents today for a follow-up on s/p [facility] admit/ 3 month u/s: Meds- Myrbetriq & Vitamin B6 Allergies to Antibiotic- No Known Allergies Blood Thinner- Eliquis & Furosemide Allergies montelukast [Singulair] Allergy (Unknown, Verified 08/28/23 09:46) itching/rash From Singulair Allergy (Intermediate, Uncoded 08/28/23 09:46) RASH HPI HPI Comments History of Present Illness Details Roseanna is a 78-year-old female who presents today to the office for a follow-up. 07/23/2023? The patient is a Somali speaking female. Certified scratch finisher was present during the visit. She was last seen by me on 04/01/2023 requesting stent removal.?Since being evaluated in the office in Mar, 2023, the patient was hospitalized for acute renal insufficiency. CAT scan imaging was done, see below. The patient had an inpatient procedure with Dr. Tellez for right ureteral stent placement again. Abdomen/pelvis CT results from 05/27/2023 revealed severe right hydroureteronephrosis with transition point at the right ureteropelvic junction. Right perinephric stranding. Nonobstructing left renal calculi. No hydronephrosis. Multiseptated complex posterior midpole left renal cyst. Bosniak 2F classification. Small right pleural effusion. Urine culture results from 05/29/2023 which came back negative for bacterial growth.? Since stent placed--Chemistry results from 06/19/2023 revealed BUN 28, and Creatinine was 1.43. 07/23/2023: Plan: Lasix renal scan was ordered. Will send urine for culture. Follow-up after lasix renal scan. [facility] Medical History NSTEMI (non-ST elevated myocardial infarction) Anxiety Asymmetrical thyroid CHF (congestive heart failure) COVID-19 Renal cyst, acquired, left Obstruction, uropathy Thrombosed external hemorrhoid COPD (chronic obstructive pulmonary disease) Atrial fibrillation Gout Asthma Alcohol abuse Nephrolithiasis Knee arthropathy Osteoarthritis Diabetes Arthritis Hypertension Surgical History Hx of colonoscopy History of total knee arthroplasty Social History Household Members: Family Household Members Other:: DAUGHTER Housing: Apartment Housing Other:: low income housing Do you presently have visiting nurse or other home services: No (granddaughter is rn access) Unable to assess alcohol history related to: Unknown Alcohol intake: unknown Patient Tobacco Use Status: Never used Tobacco Smoked in Last 30 Days: No e-Cigarette/Vaping Use: Never Used Second Hand Smoke Exposure: No Use of substances other than those prescribed or required for medical reasons: No Advance Directives: Yes Advance Directives on File: Yes Advance Directives Date on File: 09/07/22 service: No Current occupational status: disabled Review of Systems Const All systems reviewed & are unremarkable except as noted in HPI and below Reports no additional complaints Eyes Reports no additional complaints ENT Reports no additional complaints Card Denies dyspnea Resp Denies cough and Denies dyspnea GI Reports no additional complaints Reports no additional complaints Musc Reports no additional complaints Skin/Breast Denies rash and Denies unusual bruising Neuro Reports no additional complaints Psych Reports no additional complaints Endo Reports no additional complaints Tone/Lymph Reports no additional complaints Aller/Immun Reports no additional complaints Results AMB Urinalysis, Automated UA Leukoctes 500 Rebel/uL Last Edit by Arlene Arreola [facility] on 07/23/23 13:48 UA Nitrite Negative Last Edit by Arlene Arreola [facility] on 07/23/23 13:48 UA Urobilinogen 0.2 mg/dL Last Edit by Arlene Arreola [facility] on 07/23/23 13:4 8 UA Protein 100 mg/dL Last Edit by Arlene Arreola [facility] on 07/23/23 13:48 UA pH 6.0 Last Edit by Arlene Arreola [facility] on 07/23/23 13:48 UA Blood 200 Rio/uL Last Edit by Arlene Arreola [facility] on 07/23/23 13:48 UA Specific Lavelle 1.020 Last Edit by Arlene Arreola [facility] on 07/23/23 13: 48 UA Ketone Negative Last Edit by Arlene Arreola [facility] on 07/23/23 13:48 UA Bilirubin 0 mg/dL Last Edit by Arlene Arreola [facility] on 07/23/23 13:48 UA Glucose 0 mg/dL Last Edit by SACHA Shepherd on 07/23/23 13:48 Results Reviewed Results Reviewed: Laboratory Last Values Urine pH (Auto) 6.0 07/23/23 13:47 Specific Lavelle (Auto) 1.020 07/23/23 13:47 Urine Protein (Auto) 100 mg/dL 07/23/23 13:47 Glucose (UA)(Auto) 0 mg/dL 07/23/23 13:47 Urine Ketones (Auto) Negative 07/23/23 13:47 Urine Blood (Auto) 200 Rio/uL 07/23/23 13:47 Urine Nitrite (Auto) Negative 07/23/23 13:47 Urine Bilirubin (Auto) 0 mg/dL 07/23/23 13:47 Urine Urobilinogen (Auto) 0.2 mg/dL 07/23/23 13:47 Leukocyte Esterase (Auto) 500 Rebel/uL 07/23/23 13:47 Date of Service: 05/27/23 EXAMINATION: CT ABDOMEN AND PELVIS WITHOUT CONTRAST?? CLINICAL INFORMATION: Follow-up evaluation.?? COMPARISON: 05/25/2023 FINDINGS: LUNG BASES: Small right pleural effusion.?? LIVER, GALLBLADDER, AND BILIARY TREE: The noncontrast liver is normal in size and contour. No biliary ductal dilatation is present. The gallbladder is unremarkable with no evidence of radiopaque gallstones, gallbladder wall thickening, or obvious pericholecystic inflammatory changes.?? PANCREAS: Atrophic. SPLEEN: Not enlarged. ADRENAL GLANDS: No adrenal masses. KIDNEYS AND URETERS: Atrophic left kidney. There are nonobstructed left renal calculi with the largest measuring 8 mm in the lower pole. Anterior mid pole cyst measures 4.6 x 5.0 cm. Posterior midpole cyst measures 8.3 x 7.1 cm with multiple septations some exhibiting calcification. Both measure fluid attenuation. Marked right hydronephrosis with right perinephric stranding. There is an abrupt transition point at the ureteropelvic junction. BLADDER: Decompressed with indwelling Johnson catheter. GASTROINTESTINAL TRACT: Small and large bowel loops are of normal caliber. No small bowel obstruction. Appendix is within normal limits. Moderate fecal retention in the colon. Extensive diverticular disease of the sigmoid colon. ABDOMINAL WALL: Fat-containing left inguinal hernia.?? LYMPH NODES: No bulky abdominal or pelvic lymphadenopathy. VASCULAR: Normal caliber abdominal aorta. PELVIC VISCERA: Uterus is surgically absent. OSSEOUS STRUCTURES: No destructive bone lesions. IMPRESSION: ? Severe right hydroureteronephrosis with transition point at the right ureteropelvic junction. There appears to be a crossing vessel -- evaluation limited by lack of intravenous contrast. Right perinephric stranding. ? Nonobstructing left renal calculi. No hydronephrosis. ? Multiseptated complex posterior midpole left renal cyst. Bosniak 2F classification. Small right pleural effusion. Assessment & Plan Assessment & Plan (1) Obstruction of right ureteropelvic junction (UPJ): Code(s): N13.5 - Crossing vessel and stricture of ureter without hydronephrosis (2) Chronic kidney disease: Code(s): N18.9 - Chronic kidney disease, unspecified (3) Nephrolithiasis: Code(s): N20.0 - Calculus of kidney Plan Lasix renal scan was ordered. Will send urine for culture. Follow-up after lasix renal scan. Orders: Orders NM renal flow w pharm int 07/23/23 N13.5 - Crossing vessel and stricture of ureter without hydronephrosis, N18.9 - Chronic kidney disease, unspecified AMB Urinalysis Automated 07/03/23 Z13.9 - Encounter for screening, unspecified AMB Post Void Residual by ultrasound 07/03/23 N39.8 - Other specified disorders of urinary system AMB Urinalysis Automated 07/23/23 Z13.9 - Encounter for screening, unspecified Urine Culture 07/23/23 N39.0 - Urinary tract infection, site not specified Patient Instructions: The patient had an opportunity to ask questions regarding treatment plan. All questions were answered. Imaging, Laboratory studies and physical exam results were discussed and reviewed in detail. No major barriers to understanding were identified. The patient expressed understanding and agreement with the above treatment plan.? ? ? The patient is aware they should contact our office by phone for worsening of their current condition or the appearance of new symptoms. Compliance is encouraged with any medications and followup testing that is ordered.? ? ? It is a privilege to be allowed the opportunity to participate in the urologic care of your patient. If you have any questions or concerns regarding treatment for the above conditions please do not hesitate to contact me. The office telephone contact is [phone].? ? ? This note is constructed in part using voice recognition software. While every effort has been made to ensure accuracy cinder dump crane operator errors may have been included.? ? ? Yours sincerely,? ? ? Jacquie Mcgraw MD? Coding Level of Care Code Est Pt Level 4 (08723) Diagnoses Obstruction of right ureteropelvic junction (UPJ) N13.5 Chronic kidney disease N18.9 Nephrolithiasis N20.0
== END 2023-07-23 14:11 | disposition home or self-care (01) ==
PROVIDERS: PCP Nurse Practitioner Primary Care; Visit Provider Urology
DX: N13.5 Crossing vessel and stricture of ureter without hydronephrosis (principal); N18.9 Chronic kidney disease, unspecified; N20.0 Calculus of kidney
CPT/HCPCS: 99214

== ENCOUNTER 2023-07-24 14:01 | Outpatient (REF) | payer OTHER, SELFPAY ==
--- NOTE | ~2023-07-24 | US_ITS ---
EXAMINATION: US RETROPERITONEAL LIMITED (RENAL ONLY) CLINICAL INFORMATION: Unspecified hydronephrosis. COMPARISON: CT abdomen and pelvis 05/27/2023. Renal ultrasound 03/26/2023 and 06/20/2022. X-ray KUB 07/21/2014. TECHNIQUE: Real-time imaging of the kidneys. FINDINGS: RIGHT KIDNEY: 10.4 x 5.6 x 5.5 cm (SAG x AP x TRV). The kidney is normal in size, contour, and echogenicity. Renal cortical thickness is normal. Mild right hydronephrosis. Small 9 mm cyst exophytic to the lower pole. No stone. Extent seen in the right renal pelvis. LEFT KIDNEY: 11.3 x 6.3 x 7.0 cm (SAG x AP x TRV). The kidney is normal in size, contour, and echogenicity. Renal cortical thickness is normal. 8 x 7 cm cyst in the midpole with wall calcification. 4 x 5 cm cyst in the lower pole. No imaging follow-up recommended. 4 mm stone in the lower pole. Question mild left hydronephrosis. US/US renal BI IMPRESSION: Right: Stent seen in the right renal pelvis. Mild right hydronephrosis. Left: Small stone in the lower pole. Question mild left hydronephrosis.
== END 2023-07-24 14:02 | disposition home or self-care (01) ==
LOC: HO.US 14:01
PROVIDERS: PCP Nurse Practitioner Primary Care; Visit Provider Urology
DX: N13.30 Unspecified hydronephrosis (principal)
CPT/HCPCS: 76775

== ENCOUNTER 2023-07-28 09:28 | Outpatient (AMB) | payer OTHER, SELFPAY ==
[2023-07-28 09:42] VITALS: BP 134/72; PULSE 76; BMI 33.6
--- NOTE | 2023-07-28 09:42 | A.OFFVIS_ITS ---
Intake Vital Signs 07/28/23 09:42 Height 5 ft 2 in Weight 183 lb 13.848 oz BMI 33.6 BP 134/72 Blood Pressure Location Lt brachial Position Sitting Pulse 76 Pulse Source Pulse Oximeter Intake Visit Reasons: 6 wk f/up labs per KM Intake Note: 6 week f/up labs Business Unit Manager Required: No Allergies montelukast [Singulair] Allergy (Unknown, Verified 07/28/23 09:48) itching/rash From Singulair Allergy (Intermediate, Uncoded 07/23/23 13:38) RASH Medication List - Last Reconciled 07/28/23 by LEORA Mcgrath acetaminophen 650 mg PO Q6H PRN albuterol sulfate 1 amp inhalation QID PRN albuterol sulfate 90 mcg/actuation (Ventolin HFA) 2 puffs inhalation Q4-6H PRN apixaban (Eliquis) 5 mg PO BID atorvastatin 80 mg PO DAILY blood sugar diagnostic ([employer] Verio test strips) blood-glucose meter ([employer] PromoTouch Verio Flex Meter) clopidogrel 75 mg PO DAILY clotrimazole 1% appl topical BID docusate sodium 100 mg PO BID duloxetine 30 mg PO QAM famotidine 20 mg PO BID ferrous gluconate 324 mg PO Q2D fluticasone propion-salmeterol 250-50 mcg/dose (Advair Diskus) 1 puff inhalation BID furosemide 40 mg PO BID lancets (Transmit PromoTouch Delica Plus Lancet) lidocaine 5% 1 patch topical DAILY PRN metformin 850 mg PO BIDWM metoprolol succinate ER (Toprol XL) 50 mg PO DAILY mirabegron ER (Myrbetriq) 50 mg PO DAILY polyethylene glycol 3350 17 grams PO DAILY pyridoxine (vitamin B6) 100 mg PO DAILY sennosides (senna) 1 tab PO BID simethicone (Gas Relief Extra Strength) 125 mg PO QID PRN tramadol 50 mg PO Q8H PRN HPI 6 wk f/up labs per KM HPI Details Roseanna is a 78-year-old female with past medical history diabetes, hyperlipidemia, chronic atrial fibrillation, , Congestive heart failure, NSTEMI, recent cardiac catheterization with LAD stent placement who presents for follow-up. Today she reports she has been doing well overall. She denies having chest discomfort at rest with activity. No heart palpitations, dizziness, presyncope, syncope, PND, orthopnea or edema. She has some mild shortness of breath with activity. She has a ureter stent in place and reports issues with hematuria at times. She is known to have anemia. She is taking her meds as directed. Daughter present. [facility] Medical History NSTEMI (non-ST elevated myocardial infarction) Anxiety Asymmetrical thyroid CHF (congestive heart failure) COVID-19 Renal cyst, acquired, left Obstruction, uropathy Thrombosed external hemorrhoid COPD (chronic obstructive pulmonary disease) Atrial fibrillation Gout Asthma Alcohol abuse Nephrolithiasis Knee arthropathy Osteoarthritis Diabetes Arthritis Hypertension Surgical History Hx of colonoscopy History of total knee arthroplasty Social History Household Members: Family Household Members Other:: DAUGHTER Housing: Apartment Housing Other:: low income housing Do you presently have visiting nurse or other home services: No (granddaughter is senior bioinformatics scientist) Unable to assess alcohol history related to: Unknown Alcohol intake: unknown Patient Tobacco Use Status: Never used Tobacco e-Cigarette/Vaping Use: Never Used Second Hand Smoke Exposure: No Advance Directives Date on File: 09/07/22 service: No Current occupational status: disabled Review of Systems Const Details: ambulates with walker All systems reviewed & are unremarkable except as noted in HPI and below ENT Denies dizziness Card Denies chest pain, Denies chest pain at rest, Denies chest pain with activity, Denies rapid heart rate, Denies pedal edema, Denies edema, Denies leg edema, Denies lightheadedness, Denies palpitations, Denies dyspnea, Denies dyspnea on exertion and Denies orthopnea Resp Denies cough, Denies dyspnea and Denies dyspnea on exertion GI Denies hematochezia and Denies change in stool character Musc Denies abnormal gait, Reports limited range of motion, Reports muscle cramps, Denies muscle weakness, Denies numbness, Denies radiating pain into limb, Denies stiffness and Denies tingling Neuro Denies abnormal gait, Denies dizziness, Denies numbness and Denies tingling Endo Denies palpitations Physical Exam Vital Signs: Last Vital Signs BP 134/72 07/28/23 09:42 BMI result Body Mass Index 33.6 Const General: cooperative, healthy appearing, comfortable and no acute distress Orientation/consciousness: patient oriented x3 Neck Neck: Yes normal visual inspection Resp Effort & Inspection: normal respiratory effort Auscultation: clear to auscultation bilaterally, no crackles, no rales, no rhonchi and no wheezes Cardio Jugular venous distension: no JVD Rate: regular rate Rhythm: regular rhythm Heart sounds: S1 normal heart sound present, S2 normal heart sound present, no gallops, no murmurs and no rubs Neuro General: patient oriented x3 Extrem General: Yes normal to inspection, No no pedal edema and No calf tenderness Psych Appearance: grossly normal Mental Status: mental status grossly normal Speech and movement: Normal speech and movement present Assessment & Plan Assessment & Plan (1) NSTEMI (non-ST elevated myocardial infarction): Code(s): I21.4 - Non-ST elevation (NSTEMI) myocardial infarction Plan: NSTEMI 04/2023. Treated for acute on chronic heart failure at that time. She ruled in for ACS and was initially managed medically then transferred to [facility] where she underwent cardiac catheterization showing severe mid LAD stenosis, RENAE placed. In the hospital there was some concern for bradycardia and her diltiazem was stopped. She was continued on metoprolol high-dose atorvastatin. She was taken off aspirin and sent home with Plavix and her Eliquis. An echocardiogram was done 06/23/2023 showing EF 45-50%, mild decrease in the RV systolic function, left atrium severely dilated, moderate MR. She did have some orthopnea and shortness of breath reported on last visit her diuretic dose was increased at that time. Since then she has been feeling some improvement in her breathing. On examination she does not appear fluid overloaded. She does not report anginal sounding symptoms. Will continue on current med management for stable CAD. She declines cardiac rehab. Cardiology follow-up in 3 months, sooner if needed (2) S/P cardiac cath: Comment: 04/10/2023, mid LAD severe stenosis, RENAE placed, no obvious left circumflex noted, RCA dominant vessel, PLV 1 has 50% stenosis, ramus moderate disease Code(s): Z98.890 - Other specified postprocedural states (3) Acute on chronic congestive heart failure: Code(s): I50.9 - Heart failure, unspecified Qualifiers: Heart failure type: systolic Qualified Code(s): I50.23 - Acute on chronic systolic (congestive) heart failure Plan: Decompensated heart failure at time of NSTEMI. On last visit she was reporting orthopnea and shortness of breath. Her diuretic dose was increased. Follow-up labs were ordered however not completed yet by patient. At this time she says her breathing has improved. She has some shortness of breath at times but no longer is reporting orthopnea. On exam she does not appear fluid overloaded though obesity makes this more challenging. She is noted to have anemia with last hemoglobin 8.3 on 06/19/2023. Significant anemia can contribute to shortness of breath as well. Will have her update her labs including BMP, BNP and CBC. Lab orders are in place. No med changes made at present. Signs and symptoms of heart failure reviewed. Low-salt diet discussed. (4) Persistent atrial fibrillation: Code(s): I48.19 - Other persistent atrial fibrillation Plan: History of persistent atrial fibrillation. No reports of heart palpitations. Heart tones irregularly irregular on examination, pulse 76. No concerning symptoms to indicate significant bradycardia. Continue metoprolol. Continue Eliquis 5 mg b.i.d.. She has had issues with intermittent hematuria and currently reports having a ureter stent in place. If she has gross hematuria then anticoagulation will need to be held. CBC needs to be reached checked, orders pending as above. Coding Level of Care Code Est Pt Level 4 (04808) Diagnoses NSTEMI (non-ST elevated myocardial infarction) I21.4 S/P cardiac cath Z98.890 Acute on chronic systolic congestive heart failure I50.23 Heart failure type: systolic Persistent atrial fibrillation I48.19 Time Spent (min) 26
== END 2023-07-28 10:08 | disposition home or self-care (01) ==
PROVIDERS: PCP Nurse Practitioner Primary Care; Visit Provider Nurse Practitioner Family
DX: I21.4 Non-ST elevation (NSTEMI) myocardial infarction (principal); Z98.890 Other specified postprocedural states; I50.23 Acute on chronic systolic (congestive) heart failure; I48.19 Other persistent atrial fibrillation
CPT/HCPCS: 99214

== ENCOUNTER → 2023-07-28 09:28 | Outpatient (BNVA) | payer OTHER, SELFPAY | PROVIDERS: PCP Nurse Practitioner Primary Care; Visit Provider Nurse Practitioner Family | DX: I50.23 Acute on chronic systolic (congestive) heart failure (principal); I21.4 Non-ST elevation (NSTEMI) myocardial infarction; I48.19 Other persistent atrial fibrillation; Z98.890 Other specified postprocedural states | CPT/HCPCS: 99212 ==

== ENCOUNTER → 2023-08-20 11:17 | Outpatient (REF) | payer OTHER, SELFPAY ==
--- NOTE | ~2023-08-20 | NM_ITS ---
EXAMINATION: NM RENOGRAM WITH LASIX CLINICAL INFORMATION: Status post right internal ureteric stent in May 2023. Crossing vessel and stricture of the ureter without hydronephrosis. Mild right-sided hydronephrosis and question left renal mild hydronephrosis on recent renal ultrasound done on 07/24/2023. COMPARISON: Renal ultrasound done on 07/24/2023 and scintigraphic renal scan done on 07/20/2019. TECHNIQUE: Dynamic renal scintigraphy was performed after intravenous administration of 10 mCi Tc-99m Technetium 99m DTPA . 40 mg of furosemide was administered at 30 minutes and continued dynamic imaging of the abdomen/pelvis was obtained for a total of 70 minutes. Postvoid planar image of the kidneys and the bladder was also obtained. FINDINGS: Left kidney 36.9% (previously 24%) and the right kidney 63% (previously 76%) of total renal uptake. Left Kidney: Mild to moderately decreased perfusion. The left kidney appears somewhat smaller. Normal tracer uptake and excretion is seen with dilated left renal pelvicalyceal system. Following administration of furosemide, the renal washout half-time is 31.4 minutes (no meaningful calculation was done on the prior study). Right Kidney: Normal perfusion, cortical uptake and excretion and normal caliber pelvicalyceal system. Following administration of furosemide, progressive washout is noted without evidence of any obstruction. No meaningful washout half-time was calculated. Other: No evidence of any reflux on post void image. NM/NM renal flow w pharm int IMPRESSION: 1. Differential renal function: Left 36.9%, previously 24%; Right 63%, previously 76%. 2. Left kidney shows mild to moderate decreased perfusion and possible mild obstruction. 3. Right kidney shows normal perfusion, and no evidence of any obstruction.
== END ==
LOC: HO.NUCMED 11:17
PROVIDERS: PCP Nurse Practitioner Primary Care; Visit Provider Urology
DX: N13.5 Crossing vessel and stricture of ureter without hydronephrosis (principal); N18.9 Chronic kidney disease, unspecified
CPT/HCPCS: 78708; A9539; J1940

== ENCOUNTER 2023-08-27 14:56 | Outpatient (REF) | payer OTHER, SELFPAY | END 2023-08-27 14:57 | disposition home or self-care (01) | LOC: HO.LAB 14:56 | PROVIDERS: PCP Nurse Practitioner Primary Care; Visit Provider Urology | DX: N39.0 Urinary tract infection, site not specified (principal); N13.5 Crossing vessel and stricture of ureter without hydronephrosis; N20.0 Calculus of kidney; N18.9 Chronic kidney disease, unspecified; N13.30 Unspecified hydronephrosis | CPT/HCPCS: 81003; 87086; 99212 ==

== ENCOUNTER 2023-08-27 14:56 | Outpatient (AMB) | payer OTHER, SELFPAY ==
--- NOTE | 2023-08-27 15:02 | A.OFFVIS_ITS ---
Intake Intake Visit Reasons: NM Renal Scan -follow up Intake Note: Patient is Present for FU Nuclear Scan Urology Med: Myrbetriq, Antibiotic Allergy: Blood Thinner: Eliquis, Plavix Video Network Engineer Required: Yes Video Network Engineer Language: Macedonian Allergies montelukast [Singulair] Allergy (Unknown, Verified 08/28/23 09:46) itching/rash From Singulair Allergy (Intermediate, Uncoded 08/28/23 09:46) RASH HPI HPI Comments History of Present Illness Details Roseanna is a 78-year-old female who presents today to the office for a follow-up. 08/27/23? She is followed today for renal scan results. She wants to have the stent removed. The patient is a Macedonian speaking female. Certified check processing clerk was present during the visit. She was last seen by me on 07/23/23 for chronic kidney disease. Lasix renal scan was ordered, and urine for culture was sent during that time. Myrbetriq was discontinued. She was advised to follow-up after lasix renal scan at that time. The patient is not tolerating the stent well and states it is very uncomfortable for her. I discussed with the patient the in order to protect her kidney function, it is important to keep the stent. I have discussed with her that in the past when the stent was removed she ended up back in the hospital in [facility]. I reviewed the renal scan results from 08/20/23 revealed that with the stent in place the right kidney has normal perfusion. Review of charts: I reviewed the chemistry results from 06/19/2023 revealed BUN 28, and Creatinine was 1.43. I reviewed the abdomen/pelvis CT results from 05/27/2023 revealed severe right hydroureteronephrosis with transition point at the right ureteropelvic junction. Right perinephric stranding. Nonobstructing left renal calculi. No hydronephrosis. Multiseptated complex posterior midpole left renal cyst. Bosniak 2F classification. Small right pleural effusion. I reviewed the urine culture results from 05/29/2023 which came back negative for bacterial growth. 08/27/23: Plan: Pt agrees to cont with stent. We will plan for stent exchange in 1-2 months. [facility] Medical History NSTEMI (non-ST elevated myocardial infarction) Anxiety Asymmetrical thyroid CHF (congestive heart failure) COVID-19 Renal cyst, acquired, left Obstruction, uropathy Thrombosed external hemorrhoid COPD (chronic obstructive pulmonary disease) Atrial fibrillation Gout Asthma Alcohol abuse Nephrolithiasis Knee arthropathy Osteoarthritis Diabetes Arthritis Hypertension Surgical History Hx of colonoscopy History of total knee arthroplasty Social History Household Members: Family Household Members Other:: DAUGHTER Housing: Apartment Housing Other:: low income housing Do you presently have visiting nurse or other home services: No (granddaughter is farrowing worker) Unable to assess alcohol history related to: Unknown Alcohol intake: unknown Patient Tobacco Use Status: Never used Tobacco e-Cigarette/Vaping Use: Never Used Second Hand Smoke Exposure: No Advance Directives Date on File: 09/07/22 service: No Current occupational status: disabled Review of Systems Const All systems reviewed & are unremarkable except as noted in HPI and below Reports no additional complaints Eyes Reports no additional complaints ENT Reports no additional complaints Card Denies dyspnea Resp Denies cough and Denies dyspnea GI Reports no additional complaints Reports no additional complaints Musc Reports no additional complaints Skin/Breast Denies rash and Denies unusual bruising Neuro Reports no additional complaints Psych Reports no additional complaints Endo Reports no additional complaints Tone/Lymph Reports no additional complaints Aller/Immun Reports no additional complaints Results AMB Urinalysis, Automated UA Leukoctes 125 Rebel/uL Last Edit by SACHA Shepherd on 08/27/23 15:34 UA Nitrite Negative Last Edit by SACHA Shepherd on 08/27/23 15:34 UA Urobilinogen 0.2 mg/dL Last Edit by SACHA Shepherd on 08/27/23 15:3 4 UA Protein 15 mg/dL Last Edit by SACHA Shepherd on 08/27/23 15:34 UA pH 6.0 Last Edit by SACHA Shepherd on 08/27/23 15:34 UA Blood 200 [place]/uL Last Edit by SACHA Shepherd on 08/27/23 15:34 UA Specific [place] 1.015 Last Edit by SACHA Shepherd on 08/27/23 15: 34 UA Ketone Negative Last Edit by SACHA Shepherd on 08/27/23 15:34 UA Bilirubin 0 mg/dL Last Edit by SACHA Shepherd on 08/27/23 15:34 UA Glucose 0 mg/dL Last Edit by SACHA Shepherd on 08/27/23 15:34 Results Reviewed Results Reviewed: Laboratory Last Values Urine pH (Auto) 6.0 08/27/23 15:28 Specific [place] (Auto) 1.015 08/27/23 15:28 Urine Protein (Auto) 15 mg/dL 08/27/23 15:28 Glucose (UA)(Auto) 0 mg/dL 08/27/23 15:28 Urine Ketones (Auto) Negative 08/27/23 15:28 Urine Blood (Auto) 200 [place]/uL 08/27/23 15:28 Urine Nitrite (Auto) Negative 08/27/23 15:28 Urine Bilirubin (Auto) 0 mg/dL 08/27/23 15:28 Urine Urobilinogen (Auto) 0.2 mg/dL 08/27/23 15:28 Leukocyte Esterase (Auto) 125 Rebel/uL 08/27/23 15:28 Date of Service: 07/24/23 EXAMINATION:? US RETROPERITONEAL LIMITED (RENAL ONLY) CLINICAL INFORMATION: Unspecified hydronephrosis. COMPARISON:? CT abdomen and pelvis 05/27/2023. Renal ultrasound 03/26/2023 and 06/20/2022. X-ray KUB 07/21/2014. FINDINGS: RIGHT KIDNEY: 10.4 x 5.6 x 5.5 cm (SAG x AP x TRV). The kidney is normal in size, contour, and echogenicity. Renal cortical thickness is normal. Mild right hydronephrosis. Small 9 mm cyst exophytic to the lower pole. No stone. Extent seen in the right renal pelvis. LEFT KIDNEY: 11.3 x 6.3 x 7.0 cm (SAG x AP x TRV). The kidney is normal in size, contour, and echogenicity. Renal cortical thickness is normal. 8 x 7 cm cyst in the midpole with wall calcification. 4 x 5 cm cyst in the lower pole. No imaging follow-up recommended. 4 mm stone in the lower pole. Question mild left hydronephrosis. IMPRESSION:? Right: Stent seen in the right renal pelvis. Mild right hydronephrosis. Left: Small stone in the lower pole. Question mild left hydronephrosis. Date of Service: 08/20/23 EXAMINATION: NM RENOGRAM WITH LASIX CLINICAL INFORMATION:? Status post right internal ureteric stent in May 2023. Crossing vessel and stricture of the ureter without hydronephrosis. Mild right-sided hydronephrosis and question left renal mild hydronephrosis on recent renal ultrasound done on 07/24/2023. COMPARISON:? Renal ultrasound done on 07/24/2023 and scintigraphic renal scan done on 07/20/2019. FINDINGS: Left kidney 36.9% (previously 24%) and the right kidney 63% (previously 76%) of total renal uptake.?? Left Kidney: Mild to moderately decreased perfusion. The left kidney appears somewhat smaller. Normal tracer uptake and excretion is seen with dilated left renal pelvicalyceal system. Following administration of furosemide, the renal washout half-time is 31.4 minutes (no meaningful calculation was done on the prior study). Right Kidney: Normal perfusion, cortical uptake and excretion and normal caliber pelvicalyceal system. Following administration of furosemide, progressive washout is noted without evidence of any obstruction. No meaningful washout half-time was calculated. Other: No evidence of any reflux on post void image. IMPRESSION: 1. Differential renal function: Left 36.9%, previously 24%; Right 63%, previously 76%. 2. Left kidney shows mild to moderate decreased perfusion and possible mild obstruction. Assessment & Plan Assessment & Plan (1) Obstruction of right ureteropelvic junction (UPJ): Code(s): N13.5 - Crossing vessel and stricture of ureter without hydronephrosis (2) Chronic kidney disease: Code(s): N18.9 - Chronic kidney disease, unspecified (3) Nephrolithiasis: Code(s): N20.0 - Calculus of kidney Plan We will plan for stent exchange in 1-2 months. Orders: Orders AMB Cystoscopy 08/27/23 N13.30 - Unspecified hydronephrosis AMB Urinalysis Automated 08/27/23 Z13.9 - Encounter for screening, unspecified Urine Culture 08/27/23 N39.0 - Urinary tract infection, site not specified Medications: New lidocaine HCl 2% 10 mL intra-urethral ONCE 10 mL 0RF N13.30 - Unspecified hydronephrosis naproxen 500 mg PO ONCE 1 tab 0RF N13.30 - Unspecified hydronephrosis ciprofloxacin HCl 500 mg PO ONCE 1 tab 0RF N13.30 - Unspecified hydronephrosis Patient Instructions: The patient had an opportunity to ask questions regarding treatment plan. All questions were answered. Imaging, Laboratory studies and physical exam results were discussed and reviewed in detail. No major barriers to understanding were identified. The patient expressed understanding and agreement with the above treatment plan.? ? ? The patient is aware they should contact our office by phone for worsening of their current condition or the appearance of new symptoms. Compliance is encouraged with any medications and followup testing that is ordered.? ? ? It is a privilege to be allowed the opportunity to participate in the urologic care of your patient. If you have any questions or concerns regarding treatment for the above conditions please do not hesitate to contact me. The office telephone contact is [phone].? ? ? This note is constructed in part using voice recognition software. While every effort has been made to ensure accuracy dulser errors may have been included.? ? ? Yours sincerely,? ? ? Jacquie Mcgraw MD? Coding Level of Care Code Est Pt Level 4 (32858) Diagnoses Obstruction of right ureteropelvic junction (UPJ) N13.5 Chronic kidney disease N18.9 Nephrolithiasis N20.0
== END 2023-08-27 16:06 | disposition home or self-care (01) ==
PROVIDERS: PCP Nurse Practitioner Primary Care; Visit Provider Urology
DX: N13.5 Crossing vessel and stricture of ureter without hydronephrosis (principal); N18.9 Chronic kidney disease, unspecified; N20.0 Calculus of kidney
CPT/HCPCS: 99214

== ENCOUNTER 2023-08-28 09:42 | Emergency (ER) | payer OTHER, SELFPAY ==
--- NOTE | ~2023-08-28 | CT_ITS ---
EXAMINATION: CT LUMBAR SPINE WITHOUT CONTRAST CLINICAL INFORMATION: Fall. Low back pain. COMPARISON: None TECHNIQUE: Helical non-contrast CT images were obtained through the lumbar spine without contrast. Multiplanar reformats were rendered and reviewed. This CT examination was performed using dose optimization techniques as appropriate, variously including the following: *Automated exposure control *Adjustment of mA and/or kV according to patient size (this includes techniques or standardized protocols for targeted exams where dose is matched to indication/reason for exam; i.e. extremities or head) *Use of iterative reconstruction technique DLP: 1620 mGy-cm FINDINGS: The lumbar vertebral bodies maintain normal heights. There is mild anterolisthesis of L4 on L5 and L5 on S1. There is no vertebral body height loss. No fracture is seen. There is disc height loss at T11-T12 and T12-L1 and additional disc height loss at L5-S1 with degenerative endplate changes and vacuum disc. There is a right-sided right-sided renal stent in place with proximal portion in the pelvis and the distal portion is not fully imaged. There is mild right hydronephrosis. Multiple calculi are seen within the left kidney. There is moderate left hydronephrosis and dilatation of the pelvis. Atheromatous changes are seen within the abdominal aorta and its branch vessels. There are scattered colonic diverticula. SPINAL LEVELS: L1-L2: No posterior disc abnormality. No spinal canal or neural foraminal stenosis. L2-L3: No posterior disc abnormality. No spinal canal or neural foraminal stenosis. L3-L4: Disc bulging with moderate facet arthropathy. Mild right neural foraminal stenosis. No spinal canal stenosis. L4-L5: Mild anterolisthesis. Disc bulging with severe facet arthropathy. Minimal neural foraminal stenosis. No significant spinal canal stenosis. L5-S1: Mild anterolisthesis. Severe facet arthropathy. Mild neural foraminal stenosis. No significant spinal canal stenosis. CT/CT lumbar spine wo IV con IMPRESSION: 1. No lumbar spine fracture or traumatic malalignment identified. Mild degenerative spondylotic changes. No significant narrowing of the spinal canal. 2. Right-sided renal stent in place with mild right-sided hydronephrosis. Moderate left-sided hydronephrosis with dilatation of the pelvis. Multiple left-sided renal calculi are seen.
--- NOTE | ~2023-08-28 | CT_ITS ---
EXAMINATION: CT HEAD WITHOUT CONTRAST CT CERVICAL SPINE WITHOUT CONTRAST CLINICAL INFORMATION: Fall. Head trauma. Patient on blood thinners. Neck trauma. COMPARISON: CT head and cervical spine from 10/14/2022. TECHNIQUE: Contiguous axial imaging was performed from the skull base to vertex without intravenous administration of contrast. Contiguous axial imaging was performed from the upper chest through the skull base without intravenous administration of contrast. Coronal and sagittal reformats were obtained at the acquisition workstation. This CT examination was performed using dose optimization techniques as appropriate, variously including the following: *Automated exposure control. *Adjustment of mA and/or kV according to patient size (this includes techniques or standardized protocols for targeted exams where dose is matched to indication/reason for exam; i.e. extremities or head). *Use of iterative reconstruction technique. DLP: 1620 mGy-cm FINDINGS: Head: There are chronic regions of encephalomalacia within the lateral aspect of the right temporal lobe and right cerebellar hemisphere with associated volume loss. No additional loss of holliday-white matter differentiation. No evidence of acute intracranial hemorrhage. Confluent hypoattenuation in the periventricular and deep white matter. Proportional prominence of the ventricles and sulcal spaces without evidence of obstructive hydrocephalus. No abnormal mass effect or midline shift. No extra-axial fluid collections. Calcific atherosclerotic disease of the intracranial internal carotid and vertebral arteries. No hyperdense vessel sign. No acute soft tissue or osseous abnormalities. Mild mucosal thickening of the paranasal sinuses. The mastoid air cells and middle ear cavities are clear. Moderate degenerative arthropathy of the right temporal mandibular joints. Cervical Spine: The atlantooccipital and atlantoaxial articulations remain well aligned. Moderate degenerative arthropathy of the atlantodental articulation. Mild degenerative anterolisthesis of C4 on C5. Straightening of the normal cervical lordosis. Otherwise, there is anatomic alignment of the vertebral bodies and posterior elements. No evidence of acute fracture or subluxation. The vertebral body heights are maintained. Advanced degenerative disc disease at C6-C7. Moderate degenerative disc disease at all additional levels. Facet and uncovertebral joint arthropathy leads to osseous encroachment on the neural foramina from C2-C7. There is no prevertebral soft tissue swelling. The thyroid gland and remaining cervical soft tissues are within normal limits. The lung apices demonstrate no abnormalities. CT/CT cervical spine wo IV con IMPRESSION: 1. No evidence of acute intracranial hemorrhage or edematous territorial infarction. 2. Chronic regions of encephalomalacia within the lateral aspect of the right temporal lobe and right cerebellar hemisphere. Extensive underlying microangiopathy and generalized cerebral volume loss. 3. No evidence of acute fracture or traumatic subluxation of the cervical spine. Moderate multilevel degenerative spondyloarthropathy of the cervical spine.
[2023-08-28 09:46] VITALS: BP 146/75; PULSE 71; RESP 19; TEMP 36.6; O2SAT 98; BMI 33.8
[2023-08-28 10:06] LABS: MANUAL DIFF FLAG NO
[2023-08-28 10:10] LABS: Basophils Percent Auto 0.4 % (0-2); Eosinophils Absolute Auto 0.2 X10*3/uL (0.0-0.4); Eosinophils Percent Auto 2.3 % (0-4); Hematocrit 34.7 % (37.0-47.0); Imm Gran Abs Auto 0.02 X10*3/uL (0.00-0.03); Imm Gran Pct Auto 0.3 % (0.0-0.4); Lymphocytes Absolute Auto 0.8 X10*3/uL (1.2-4.9); Lymphocytes Percent Auto 10.4 % (20-40); Mean Corpuscular HGB Conc 31.7 g/dl (31.0-35.0); Mean Corpuscular Volume 85.3 fL (80.0-98.0); Mean Platelet Volume 10.4 fL (9.4-12.3); Monocytes Absolute Auto 0.7 X10*3/uL (0.1-1.2); Monocytes Percent Auto 9.1 % (2-11); Neutrophils Absolute Auto 5.8 x10*3/uL (2.0-8.3); Neutrophils Percent Auto 77.5 % (45-73); Platelet Count 268 X10*3/uL (160-400); Red Blood Count 4.07 X10*6/uL (4.20-5.50); Red Cell Distribution Width 13.9 % (11.0-16.0); White Blood Count 7.5 X10*3/uL (4.8-10.8)
[2023-08-28 10:14] LABS: INTERNATIONAL NORM RATIO 1.2 (0.9-1.1); Prothrombin Time 14.8 SEC (11.1-13.3)
[2023-08-28 10:31] LABS: Anion Gap 16 (12-20); Blood Urea Nitrogen 35 mg/dL (9-16); Calcium 10.1 mg/dL (8.4-10.2); Carbon Dioxide 24 mmol/L (22-29); Chloride 103 mmol/L (96-108); Creatinine Clr Calc Pharmacy 36.6; Estimated Glomerular Filt Rate 41; Glucose Random 223 mg/dL (60-115); Potassium 3.9 mmol/L (3.3-5.1); Sodium 139 mmol/L (135-145)
--- NOTE | 2023-08-28 11:29 | ED_ITS ---
HPI - Fall General Chief Complaint: Fall Stated Complaint: fell @ 4 am- spine hurts Time Seen by Provider: 08/28/23 11:25 Source: patient, old records reviewed and staff interpreter Mode of arrival: ambulatory Limitations: no limitations History of Present Illness HPI Narrative: 78 yo female with PMH of NSTEMI, cardiomyopathy, CHF, CKD, dysphagia, DM, pleural effusion, asthma, ETOH abuse, kidney stones, PAF on eliquis, frequent falls here with c/o losing her balance last night and falling onto her buttocks at 4am. She was on the ground for 3 hours. No head strike or LOC. No other injuries. She could not get herself up. No numbness or weakness. MD complaint: fall Onset (ago): hour(s) (4am) Fall from: standing Fall witnessed: no Place fall occurred: home Loss of consciousness: none Prolonged down time: yes and hour(s) (3) Symptoms prior to fall: none Context: history of frequent falls Location of injury: back (lumbar) Severity: moderate Quality: aching and throbbing Associated symptoms (after fall): other (back pain) Related Data Home Medications Medication Instructions Recorded Confirmed albuterol sulfate 2.5 mg/3 mL 1 amp inhalation QID PRN Wheezing 09/06/22 07/28/23 (0.083 %) solution for nebulization blood sugar diagnostic (OneTouch 09/06/22 07/28/23 Verio test strips) blood-glucose meter (OneTouch 09/06/22 07/28/23 Verio Flex Meter) fluticasone 250 mcg-salmeterol 50 1 puff inhalation BID 09/06/22 07/28/23 mcg/dose blistr powdr for inhalation (Advair Diskus) lancets 33 gauge (OneTouch Delica 09/06/22 07/28/23 Plus Lancet) albuterol sulfate 90 mcg/actuation 2 puff inhalation Q4-6H PRN 10/23/22 07/28/23 aerosol inhaler (Ventolin HFA) Wheezing atorvastatin 80 mg tablet 80 mg PO DAILY 10/23/22 07/28/23 metformin 850 mg tablet 850 mg PO BIDWM 10/23/22 07/28/23 ferrous gluconate 324 mg (37.5 mg 324 mg PO Q2D 04/09/23 07/28/23 iron) tablet tramadol 50 mg tablet 50 mg PO Q8H PRN Pain 04/09/23 07/28/23 clopidogrel 75 mg tablet 75 mg PO DAILY 04/27/23 07/28/23 metoprolol succinate 50 mg 50 mg PO DAILY 04/27/23 07/28/23 tablet,extended release 24 hr (Toprol XL) acetaminophen 325 mg tablet 650 mg PO Q6H PRN mild pain 05/25/23 07/28/23 docusate sodium 100 mg capsule 100 mg PO BID 05/25/23 07/28/23 lidocaine 5 % topical patch 1 patch topical DAILY PRN Pain 05/25/23 07/28/23 (Scale Score 1-3) polyethylene glycol 3350 17 gram 17 g PO DAILY 05/25/23 07/28/23 oral powder packet sennosides 8.6 mg tablet (senna) 1 tab PO BID 05/25/23 07/28/23 simethicone 125 mg capsule (Gas 125 mg PO QID PRN Indigestion 05/25/23 07/28/23 Relief Extra Strength) clotrimazole 1 % topical cream appl topical BID 07/28/23 07/28/23 duloxetine 30 mg capsule,delayed 30 mg PO QAM 07/28/23 07/28/23 release Previous Rx's Medication Instructions Recorded apixaban 5 mg tablet (Eliquis) 5 mg PO BID #60 tabs 12/27/22 mirabegron 50 mg tablet,extended 50 mg PO DAILY #30 tabs 06/05/23 release 24 hr (Myrbetriq) furosemide 40 mg tablet 40 mg PO BID #100 tabs 06/26/23 methylcellulose (laxative) 500 mg 500 mg PO DAILY #90 tabs 07/28/23 tablet (Citrucel) famotidine 20 mg tablet 20 mg PO BID #180 tabs 08/20/23 Allergies Allergy/AdvReac Type Severity Reaction Status Date / Time montelukast [Singulair] Allergy Unknown itching/marysol Verified 08/28/23 09:46 h From Singulair Allergy Intermediate RASH Uncoded 08/28/23 09:46 Review of Systems 2 Review of Systems: Constitutional : No Weight loss, No Fever, No Chills, ENT/Mouth : No Hearing loss, No Ear Pain, No Nasal Congestion, No Sinus Pain, No Hoarseness, No sore throat, No Rhinorrhea, No Swallowing Difficulty Cardiovascular : No Chest Pain, No SOB Respiratory : No Cough, No Dyspnea Gastrointestinal : No Nausea, No Vomiting, No Diarrhea, No abdominal Pain, No Hematochezia, No Melena Genitourinary : No Dysuria, No Urinary Frequency, No Hematuria, No Urinary Incontinence, Musculoskeletal : positive back pain Skin : No Skin Lesions, No rash Neuro : No Weakness, No Numbness, No Paresthesias, no loss of bowel or bladder incontinence, no saddle anesthesia All other systems reviewed and are negative [facility] Past Medical History Attestation statement: The following information was validated with the patient. Source: old records reviewed Medical History NSTEMI (non-ST elevated myocardial infarction) Anxiety Asymmetrical thyroid CHF (congestive heart failure) COVID-19 Renal cyst, acquired, left Obstruction, uropathy Thrombosed external hemorrhoid COPD (chronic obstructive pulmonary disease) Atrial fibrillation Gout Asthma Alcohol abuse Nephrolithiasis Knee arthropathy Osteoarthritis Diabetes Arthritis Hypertension Surgical History Hx of colonoscopy History of total knee arthroplasty Social History Social History Household Members: Family Household Members Other:: DAUGHTER Housing: Apartment Housing Other:: low income housing Do you presently have visiting nurse or other home services: No (granddaughter is flying ii instructor) Unable to assess alcohol history related to: Unknown Alcohol intake: unknown Patient Tobacco Use Status: Never used Tobacco Smoked in Last 30 Days: No e-Cigarette/Vaping Use: Never Used Second Hand Smoke Exposure: No Use of substances other than those prescribed or required for medical reasons: No Advance Directives: Yes Advance Directives on File: Yes Advance Directives Date on File: 09/07/22 service: No Current occupational status: disabled Physical Exam 2 Vital Signs: Vital Signs: Last Vital Signs Temp 98.3 F 08/28/23 11:32 Pulse 63 08/28/23 11:32 Resp 18 08/28/23 11:32 BP 174/70 H 08/28/23 11:32 Pulse Ox 97 08/28/23 11:32 O2 Del Method Room Air 08/28/23 11:32 BMI result Body Mass Index 33.8 Appearance: Alert. Oriented X3. No acute distress. Eyes: Pupils equal, round and reactive to light. ENT: Pharynx normal. atraumatic Neck: Normal inspection. Neck supple. CVS: Normal heart rate and rhythm. Pulses normal. Respiratory: No respiratory distress. Breath sounds normal. Abdomen: Soft and non-tender. Back: ttp along lower lumbar spine no outward trauma seen, left sacral area ttp Skin: Skin warm and dry. Normal skin color. Normal skin turgor. Extremities: No lower extremity edema. No calf ttp Neuro: Oriented X 3. No motor deficit. No sensory deficit. Course Course Course Narrative: signed out to Dr. Chavez pending full workup CT scans Medications Administered Discontinued Medications Generic Name Dose Route Start Last Admin Trade Name Freq PRN Reason Stop Dose Admin Oxycodone HCl 5 mg 08/28/23 11:40 08/28/23 12:06 Oxycodone Hcl Immed Release 5 Mg Tablet PO 08/28/23 11:41 5 mg ONCE ONE Administration Medical Decision Making Medical Decision Making [facility] Narrative: 78 yo female with PMH of NSTEMI, cardiomyopathy, CHF, CKD, dysphagia, DM, pleural effusion, asthma, ETOH abuse, kidney stones, PAF on eliquis, frequent falls here after fall and lost balance at this time will need basic labs, CT scan of head/cspine given DOAC use and age cannot clear and lumbar spine CT scan - she is NV intact. Hx of falls in past no preceding CP or dyspnea to suggest ACS/VTE. Differential Diagnosis Differential Diagnoses: The differential diagnosis associated with the presentation includes fracture, hematoma, strain/sprain, head injury Admission/Observation Consideration of admission/observation: Escalation of care including admission/observation considered Lab Data [facility] Lab Attestation statement: I reviewed the patient's lab results. 08/28/23 09:57 08/28/23 09:57 Labs: Lab Results 08/28/23 Range/Units 09:57 WBC 7.5 (4.8-10.8) X10*3/uL RBC 4.07 L D (4.20-5.50) X10*6/uL Hgb 11.0 L D (12.0-16.0) g/dl Hct 34.7 L D (37.0-47.0) % MCV 85.3 (80.0-98.0) fL MCH 27.0 (27.0-33.0) pg MCHC 31.7 (31.0-35.0) g/dl RDW 13.9 (11.0-16.0) % Plt Count 268 (160-400) X10*3/uL MPV 10.4 (9.4-12.3) fL Immature Gran % (Auto) 0.3 (0.0-0.4) % Neut % (Auto) 77.5 H (45-73) % Lymph % (Auto) 10.4 L (20-40) % [place] % (Auto) 9.1 (2-11) % Eos % (Auto) 2.3 (0-4) % Baso % (Auto) 0.4 (0-2) % Lymph # (Auto) 0.8 L (1.2-4.9) X10*3/uL [place] # (Auto) 0.7 (0.1-1.2) X10*3/uL Eos # (Auto) 0.2 (0.0-0.4) X10*3/uL Baso # (Auto) 0.0 (0.0-0.2) X10*3/uL Abs Immat Gran (auto) 0.02 (0.00-0.03) X10*3/uL Absolute Neuts (auto) 5.8 (2.0-8.3) x10*3/uL Absolute Nucleated RBC 0.000 (0.0-0.012) X10*3/uL Nucleated RBC % (auto) 0.0 (0.0-0.2) /100WBC PT 14.8 H (11.1-13.3) SEC INR 1.2 H (0.9-1.1) Sodium 139 (135-145) mmol/L Potassium 3.9 (3.3-5.1) mmol/L Chloride 103 (96-108) mmol/L Carbon Dioxide 24 (22-29) mmol/L Anion Gap 16 (12-20) BUN 35 H (9-16) mg/dL Creatinine 1.25 (0.5-1.4) mg/dL Estim Creat Clear Calc 36.6 Estimated GFR 41 Random Glucose 223 H (60-115) mg/dL Calcium 10.1 (8.4-10.2) mg/dL Total Creatine Kinase 289 H (26-140) U/L Independent Interpretation I performed an independent interpretation of an: CT Scan Radiology Impression Discussion of test interpretation with radiology: I have reviewed the radiologist's reading. Independent Historian Clinical information obtained from an independent historian. History obtained from or confirmed by: Other (family member) External Record Review External record reviewed: Inpatient record Discharge Plan Discharge Clinical Impression: Acute lumbar back pain Qualifiers: Back pain laterality: unspecified Sciatica presence: without sciatica Qualified Code(s): M54.50 - Low back pain, unspecified Patient Disposition: Still a Patient Prescriptions: No Action Myrbetriq 50 mg tablet extended release 24 hr 50 mg PO DAILY Qty: 30 5RF furosemide 40 mg tablet 40 mg PO BID Qty: 100 3RF Citrucel 500 mg tablet 500 mg PO DAILY Qty: 90 2RF Rx Instructions: take it with full glass of water famotidine 20 mg tablet 20 mg PO BID Qty: 180 2RF fluticasone propion-salmeterol [Advair Diskus] 250-50 mcg/dose blister with device 1 puff INHALATION BID albuterol sulfate 2.5 mg /3 mL (0.083 %) solution for nebulization 1 amp inhalation QID PRN (Reason: Wheezing) (DME) blood-glucose meter [OneTouch Verio Flex meter] Misc MISCELLANEOUS DIRECTED (DME) OneTouch Verio test strips Strip MISCELLANEOUS BID (DME) lancets [OneTouch Delica Plus Lancet] 33 gauge misc MISCELLANEOUS BID Eliquis 5 mg tablet 5 mg PO BID Qty: 60 0RF Hold Instructions: Resume on 06/05/23. On hold due to hematuria from obstructive uropathy and recent stent placement tramadol 50 mg Tablet 50 mg PO Q8H PRN (Reason: Pain) ferrous gluconate 324 mg (37.5 mg iron) Tablet 324 mg PO Q2D acetaminophen 325 mg tablet 650 mg PO Q6H PRN (Reason: mild pain) polyethylene glycol 3350 17 gram Powder In Packet 17 g PO DAILY lidocaine 5 % Adhesive Patch,Medicated 1 patch TOPICAL DAILY PRN (Reason: Pain (Scale Score 1-3)) Rx Instructions: leave on most painful area for up to 12 hrs docusate sodium 100 mg capsule 100 mg PO BID sennosides [senna] 8.6 mg tablet 1 tab PO BID simethicone [Gas Relief Extra Strength] 125 mg capsule 125 mg PO QID PRN (Reason: Indigestion) metformin 850 mg tablet 850 mg PO BIDWM atorvastatin 80 mg tablet 80 mg PO DAILY albuterol sulfate [Ventolin HFA] 90 mcg/actuation HFA aerosol inhaler 2 puff inhalation Q4-6H PRN (Reason: Wheezing) clopidogrel 75 mg tablet 75 mg PO DAILY metoprolol succinate [Toprol XL] 50 mg tablet extended release 24 hr 50 mg PO DAILY clotrimazole 1 % cream topical BID duloxetine 30 mg capsule,delayed release(DR/EC) 30 mg PO QAM ciprofloxacin HCl 500 mg tablet 500 mg PO ONCE Qty: 1 0RF naproxen 500 mg tablet 500 mg PO ONCE Qty: 1 0RF lidocaine HCl 2 % jelly in applicator 10 ml intra-urethral ONCE Qty: 10 0RF
[2023-08-28 11:32] VITALS: BP 174/70; PULSE 63; RESP 18; TEMP 36.8; O2SAT 97
--- NOTE | 2023-08-28 11:34 | PC.NURSE ---
a&ox3, vs and up to date. pt comes in today d/t fall at home. pt was going to fridge around 0400 this morning. pt tates she was grabbing glass of water when she lost her balance/fell. unknown headstrike, -LOC, +thinners. on eloquis for stent placement. pt was on ground for 3 hours before granddaughter found her on the ground. pt c/o left lower back pain at this time d/t trauma. no erythema/swelling/any other sx noted at this time. hot molder/provider bedside speaking w/ pt. pt and pt's family aware of plan of care at this time. call cantu placed within reach.
--- NOTE | 2023-08-28 12:01 | PC.NURSE ---
pulled pain medication from pyxis. pt currently in xray. medication administration delayed at this time. will administer medication when pt returns.
[2023-08-28] MEDS: oxyCODONE HCl Immed Release 5 MG TABLET PO (12:06)
--- NOTE | 2023-08-28 12:07 | PC.NURSE ---
pt returned from xray. medication administered per provider order. will reassess pain level shortly. respirations remain even and unlabored. family bedside for support. call cantu placed within reach.
--- NOTE | 2023-08-28 13:05 | PC.NURSE ---
pt verbalizing pain level decreased since medication administration. pt states that back pain level is a 0/10 at this time. pt resting comfortably w/ pillows placed under left side. pt's family bedside. call cantu placed within reach.
== END 2023-08-28 14:54 | disposition home or self-care (01) ==
PROVIDERS: Emergency Medicine; Emergency Provider Emergency Medicine; PCP Nurse Practitioner Primary Care
DX: M54.50 Low back pain, unspecified (principal); R51.9 Headache, unspecified; M54.2 Cervicalgia; Z79.899 Other long term (current) drug therapy; Z91.81 History of falling
CPT/HCPCS: 36415; 70450; 72125; 72131; 80048; 82550; 85025; 85610; 99284

== ENCOUNTER 2023-10-09 13:03 | Outpatient (AMB) | payer OTHER, SELFPAY ==
[2023-10-09 13:07] VITALS: BP 138/72; PULSE 86; O2SAT 97
--- NOTE | 2023-10-09 13:07 | MHC.OFFVIS ---
Intake Vital Signs 10/09/23 13:07 Weight 173 lb 7.554 oz BP 138/72 Blood Pressure Location Rt brachial Position Sitting Pulse 86 Pulse Source Doppler Pulse Oximetry (%) 97 Oxygen Delivery Method Room Air Intake Visit Reasons: pre-op for a Cysto retrograde 10/20/23 Allergies montelukast [Singulair] Allergy (Unknown, Verified 08/28/23 09:46) itching/rash From Singulair Allergy (Intermediate, Uncoded 08/28/23 09:46) RASH HPI pre-op for a Cysto retrograde 10/20/23 HPI Details 78-year-old lady, nonsmoker, with underlying history of AFib, CAD, diastolic dysfunction undergoing cardiac workup referred for evaluation of pulmonary component to her dyspnea.?She continues on her Advair and albuterol MDI with excellent control of her symptoms. She does complain of recent exacerbation symptomatic with cough productive of yellowish sputum. She is scheduled for cystoscopy. [facility] Medical History NSTEMI (non-ST elevated myocardial infarction) Anxiety Asymmetrical thyroid CHF (congestive heart failure) COVID-19 Renal cyst, acquired, left Obstruction, uropathy Thrombosed external hemorrhoid COPD (chronic obstructive pulmonary disease) Atrial fibrillation Gout Asthma Alcohol abuse Nephrolithiasis Knee arthropathy Osteoarthritis Diabetes Arthritis Hypertension Surgical History Hx of colonoscopy History of total knee arthroplasty Social History Household Members: Family Household Members Other:: DAUGHTER Housing: Apartment Housing Other:: low income housing Do you presently have visiting nurse or other home services: No (granddaughter is vocational horticulture instructor) Unable to assess alcohol history related to: Unknown Alcohol intake: unknown Patient Tobacco Use Status: Never used Tobacco e-Cigarette/Vaping Use: Never Used Second Hand Smoke Exposure: No Advance Directives Date on File: 09/07/22 service: No Current occupational status: disabled Review of Systems Const Denies daytime sleepiness, Denies excessive sweating, Denies fatigue, Denies fever(s), Denies lethargy, Denies malaise, Denies night sweats, Denies snoring and Denies weight loss Eyes Denies blurry vision and Denies itchy eyes ENT Denies nasal congestion, Denies post nasal drip, Denies sinus pain, Denies sinus pressure and Denies other ( Thrush) Card Denies chest pain, Denies pedal edema, Denies dyspnea, Denies orthopnea and Denies paroxysmal nocturnal dyspnea Resp Reports cough, Denies hemoptysis, Reports excessive phlegm production, Denies dyspnea, Denies snoring and Denies wheezing GI Denies abdominal pain and Denies heartburn Musc Denies myalgias, Denies arthralgias and Denies joint swelling Skin/Breast Denies rash Neuro Denies memory loss and Denies seizure-like activity Psych Denies abnormal sleep pattern, Denies anxiety and Denies memory loss Endo Denies excessive sweating, Denies fatigue and Denies heat intolerance Tone/Lymph Denies easy bruising Aller/Immun Denies itchy eyes, Denies seasonal rhinorrhea and Denies wheezing Physical Exam Vital Signs: Last Vital Signs Pulse 86 10/09/23 13:07 BP 138/72 10/09/23 13:07 Pulse Ox 97 10/09/23 13:07 Oxygen Delivery Method Room Air 10/09/23 13:07 Const General: no acute distress and alert Nutritional Appearance: not obese Orientation/consciousness: Other orientation findings ( oriented) HEENT Head: Yes atraumatic Eyes General: appearance normal, both eyes and all related structures Sclerae: sclerae normal EOM: EOMs intact bilaterally Neck Neck: Yes supple Lymphatic: no lymphadenopathy noted Resp Effort & Inspection: normal respiratory effort and no use of accessory muscles Auscultation: clear to auscultation bilaterally Cardio Rate: regular rate Rhythm: regular rhythm Heart sounds: no gallops, no murmurs and no rubs Skin General skin exam: other ( warm) Extrem General: No clubbing, No cyanosis and No edema Assessment & Plan Assessment & Plan (1) Asthma: Code(s): J45.909 - Unspecified asthma, uncomplicated Plan: Baseline well controlled on current regimen of Advair and albuterol MDI. Continue current regimen. Now with mild bronchitic exacerbation, will treat with a course of azithromycin. (2) Encounter for preoperative pulmonary examination: Code(s): Z01.811 - Encounter for preprocedural respiratory examination Plan: At this time patient is at low risk for pulmonary perioperative complications for the proposed cystoscopy either under general anesthesia, or monitored anesthesia care. Coding Level of Care Code Est Pt Level 4 (26721) Diagnoses Asthma J45.909 Encounter for preoperative pulmonary examination Z01.811
== END 2023-10-09 13:24 | disposition home or self-care (01) ==
PROVIDERS: PCP Nurse Practitioner Primary Care; Visit Provider Internal Medicine Pulmonary Disease
DX: J45.909 Unspecified asthma, uncomplicated (principal); Z01.811 Encounter for preprocedural respiratory examination
CPT/HCPCS: 99214

== ENCOUNTER → 2023-10-09 13:03 | Outpatient (BNVA) | payer OTHER, SELFPAY | PROVIDERS: PCP Nurse Practitioner Primary Care; Visit Provider Internal Medicine Pulmonary Disease | DX: Z01.811 Encounter for preprocedural respiratory examination (principal); J45.909 Unspecified asthma, uncomplicated | CPT/HCPCS: 99212 ==

== ENCOUNTER → 2023-10-28 09:48 | Outpatient (BNVA) | payer OTHER, SELFPAY | PROVIDERS: PCP Nurse Practitioner Primary Care; Visit Provider Internal Medicine Cardiovascular Disease ==

== ENCOUNTER 2023-11-04 10:49 | Outpatient (REF) | payer OTHER, SELFPAY ==
[2023-11-04 11:35] LABS: MANUAL DIFF FLAG NO
[2023-11-04 11:49] LABS: Basophils Percent Auto 0.7 % (0-2); Eosinophils Absolute Auto 0.4 X10*3/uL (0.0-0.4); Eosinophils Percent Auto 6.6 % (0-4); Hematocrit 31.7 % (37.0-47.0); Hemoglobin 9.6 g/dl (12.0-16.0); Imm Gran Abs Auto 0.02 X10*3/uL (0.00-0.03); Imm Gran Pct Auto 0.3 % (0.0-0.4); Lymphocytes Percent Auto 17.3 % (20-40); Mean Corpuscular HGB Conc 30.3 g/dl (31.0-35.0); Mean Corpuscular Hemoglobin 26.7 pg (27.0-33.0); Mean Corpuscular Volume 88.1 fL (80.0-98.0); Mean Platelet Volume 10.4 fL (9.4-12.3); Monocytes Absolute Auto 0.6 X10*3/uL (0.1-1.2); Monocytes Percent Auto 10.6 % (2-11); Neutrophils Absolute Auto 3.8 x10*3/uL (2.0-8.3); Neutrophils Percent Auto 64.5 % (45-73); Platelet Count 285 X10*3/uL (160-400); Red Cell Distribution Width 15.9 % (11.0-16.0)
[2023-11-04 12:09] LABS: B Type Natriuretic Peptide 483 pg/mL (<100)
[2023-11-04 12:19] LABS: Estimated Average Glucose 180 mg/dL; Hemoglobin A1c % 7.9 % (<6.0)
[2023-11-04 12:24] LABS: Alanine Aminotransferase 21 U/L (0-31); Albumin Level 3.9 g/dL (3.5-5.0); Alkaline Phosphatase 106 U/L (39-117); Anion Gap 10 (12-20); Aspartate Amino Transferase 26 U/L (5-31); Bilirubin Total 0.6 mg/dL (0.0-1.0); Blood Urea Nitrogen 31 mg/dL (9-16); Calcium 9.6 mg/dL (8.4-10.2); Carbon Dioxide 30 mmol/L (22-29); Chloride 104 mmol/L (96-108); Cholesterol 149 mg/dL (<200); Estimated Glomerular Filt Rate 46; Glucose Random 154 mg/dL (60-115); HDL Cholesterol 55 mg/dL (>40); Iron 52 mcg/dL (30-160); LDL Cholesterol Calculated 76 mg/dL (<100); Percent Iron Saturation 18 % (15-50); Potassium 3.9 mmol/L (3.3-5.1); Sodium 140 mmol/L (135-145); Total Iron Binding Capacity 289 mcg/dL (228-428); Total Protein 7.3 g/dL (6.5-8.0); Triglycerides 92 mg/dL (<150); Unsaturated Iron Binding 237 ug/dL
[2023-11-04 12:42] LABS: Ferritin 85 ng/mL (10-250)
[2023-11-04 13:04] LABS: Folate 8.2 ng/mL (> or = 4.0)
[2023-11-04 15:38] LABS: Appearance Urine Turbid; Color Urine Red; Glucose Urine UA Negative (Negative); Leukocyte Esterase Urine Large (3+) (Negative); Nitrite Urine Negative (Negative); PH 6.5 (5.0-9.0); UMIC TRIGGER UA YES; Urine Blood Large (3+) (Negative); Urine Ketones Negative (Negative); Urine Protein 300 (3+) mg/dL (Neg-Trace)
[2023-11-04 15:48] LABS: Bacteria Urine None Seen (None Seen); Hyaline Casts Urine 0-2 /LPF (0-2); RBC Urine >20 /HPF (0-2); WBC Urine >50 /HPF (0-5)
[2023-11-04 17:25] LABS: Creatinine Urine 99.18 mg/dL
[2023-11-04 19:34] LABS: Microalbum/Creatinine Ratio Ur 988.1 ug/mg cr (<30)
[2023-11-05 14:12] LABS: Vitamin B12 754 pg/mL (200-900)
== END 2023-11-04 10:50 | disposition home or self-care (01) ==
LOC: HO.XRAY 10:49
PROVIDERS: PCP Student in an Organized Health Care Education/Training Program; Visit Provider Student in an Organized Health Care Education/Training Program
DX: Z01.810 Encounter for preprocedural cardiovascular examination (principal); D50.0 Iron deficiency anemia secondary to blood loss (chronic); R05.8 Other specified cough; R82.90 Unspecified abnormal findings in urine
CPT/HCPCS: 36415; 71046; 80053; 80061; 81001; 82043; 82570; 82607; 82728; 82746; 83036; 83540; 83880; 85025; 87086

== ENCOUNTER 2023-11-10 07:34 | Day surgery (SDC) | payer OTHER, SELFPAY ==
[2023-10-16 09:48] VITALS: BMI 31.6
--- NOTE | 2023-11-06 13:25 | HO.ANESPROP2 ---
HPI - Anesthesia Eval Consult details Narrative: 78yo F for Right Cystoscopy, Retrograde, Right urethra stent change Pulmo cleared Cardiac cleared (follows [facility] cardiology) Medicine cleared - Instructed pt to continue plavix and hold eliquis 2 days preop CAD s/p RENAE 04/2023. [facility] Active Problems Active Problems: All Active Problems (Updated 10/09/23 @ 13:28 by Prieto Rao MD) Encounter for preoperative pulmonary examination (Acute) S/P cardiac cath (Acute) Obstruction of right ureteropelvic junction (UPJ) (Acute) Cardiomyopathy (Acute) Mitral regurgitation (Acute) Dyspnea on exertion (Acute) Acute on chronic congestive heart failure (Acute) Persistent atrial fibrillation (Acute) Acute congestive heart failure (Acute) Anxiety (Acute) Acute dyspnea (Acute) Congestive heart failure (Acute) Dysphagia, pharyngoesophageal phase (Acute) Chronic kidney disease (Acute) Hydronephrosis (Acute) Trochanteric bursitis, right hip (Acute) Hydronephrosis, bilateral (Acute) Pleural effusion (Acute) Varicose veins of right lower extremity with inflammation (Acute) Contusion of left lower leg (Acute) Cystocele with rectocele (Acute) NSTEMI (non-ST elevated myocardial infarction) (Acute) Obstruction, uropathy (Acute) Diabetes (Acute) Thrombosed external hemorrhoid (Acute) Gout (Acute) Asthma (Acute) Alcohol abuse (Acute) Nephrolithiasis (Acute) Past Medical History Medical History NSTEMI (non-ST elevated myocardial infarction) Anxiety Asymmetrical thyroid CHF (congestive heart failure) COVID-19 Renal cyst, acquired, left Obstruction, uropathy Thrombosed external hemorrhoid COPD (chronic obstructive pulmonary disease) Atrial fibrillation Gout Asthma Alcohol abuse Nephrolithiasis Knee arthropathy Osteoarthritis Diabetes Arthritis Hypertension Family History Family history of problems with anesthesia: No Surgical History Surgical History Hx of bilateral cataract extraction Hx of hysterectomy Hx of lithotripsy History of total right knee replacement History of esophagogastroduodenoscopy (EGD) Hx of cystoscopy Hx of colonoscopy History of total knee arthroplasty History of Problems with Anesthesia: No Social History Social History Household Members: Family Household Members Other:: DAUGHTER Housing: Apartment Housing Other:: low income housing Do you presently have visiting nurse or other home services: No (granddaughter is condenser winder) Unable to assess alcohol history related to: Unknown Alcohol intake: unknown Patient Tobacco Use Status: Never used Tobacco e-Cigarette/Vaping Use: Never Used Second Hand Smoke Exposure: No Advance Directives Date on File: 09/07/22 service: No Current occupational status: disabled Meds Allergies Allergy/AdvReac Type Severity Reaction Status Date / Time montelukast [Singulair] Allergy Unknown itching/marysol Verified 11/10/23 08:20 h Home Medications Medication Instructions Recorded Confirmed Last Taken Type albuterol sulfate 2.5 mg/3 mL 1 amp inhalation QID PRN Wheezing 09/06/22 10/16/23 12/19/22 History (0.083 %) solution for nebulization blood sugar diagnostic ([email or web address] 09/06/22 07/28/23 Unknown History Verio test strips) blood-glucose meter ([employer] 09/06/22 07/28/23 Unknown History Verio Flex Meter) fluticasone 250 mcg-salmeterol 50 1 puff inhalation BID 09/06/22 10/16/23 12/19/22 History mcg/dose blistr powdr for inhalation (Advair Diskus) lancets 33 gauge ([email or web address] Delica 09/06/22 07/28/23 Unknown History Plus Lancet) albuterol sulfate 90 mcg/actuation 2 puff inhalation Q4-6H PRN 10/23/22 10/16/23 Unknown History aerosol inhaler (Ventolin HFA) Wheezing atorvastatin 80 mg tablet 80 mg PO DAILY 10/23/22 10/16/23 12/19/22 History metformin 850 mg tablet 850 mg PO BIDWM 10/23/22 10/16/23 12/18/22 History ferrous gluconate 324 mg (37.5 mg 324 mg PO Q2D 04/09/23 10/16/23 11/07/23 History iron) tablet tramadol 50 mg tablet 50 mg PO Q8H PRN Pain 04/09/23 10/16/23 Unknown History clopidogrel 75 mg tablet 75 mg PO DAILY 04/27/23 10/16/23 11/10/23 History metoprolol succinate 50 mg 50 mg PO DAILY 04/27/23 10/16/23 Unknown History tablet,extended release 24 hr (Toprol XL) acetaminophen 325 mg tablet 650 mg PO Q6H PRN mild pain 05/25/23 10/16/23 Unknown History docusate sodium 100 mg capsule 100 mg PO BID 05/25/23 10/16/23 Unknown History lidocaine 5 % topical patch 1 patch topical DAILY PRN Pain 05/25/23 10/16/23 Unknown History (Scale Score 1-3) polyethylene glycol 3350 17 gram 17 g PO DAILY 05/25/23 10/16/23 Unknown History oral powder packet sennosides 8.6 mg tablet (senna) 1 tab PO BID 05/25/23 10/16/23 Unknown History simethicone 125 mg capsule (Gas 125 mg PO QID PRN Indigestion 05/25/23 10/16/23 Unknown History Relief Extra Strength) clotrimazole 1 % topical cream 1 appl topical BID 07/28/23 10/16/23 Unknown History duloxetine 30 mg capsule,delayed 30 mg PO QAM 07/28/23 10/16/23 Unknown History release Exam Height,Weight and Vital Signs: Height 5 ft 2 in Weight 78.471 kg Pertinent Lab Results Pertinent Lab Results: Laboratory Tests 11/04/23 11:34 WBC 6.0 Hgb 9.6 L Hct 31.7 L Plt Count 285 Sodium 140 Potassium 3.9 Chloride 104 Carbon Dioxide 30 H BUN 31 H Creatinine 1.14 Laboratory Tests 11/04/23 11:34 Hemoglobin A1c % 7.9 H B-Natriuretic Peptide 483 H Narrative Narrative: EKG 06/2023 afib @ 72 Nonspecific T wave abn ECHO 06/2023 Conclusions: - Normal left ventricular cavity size. There is moderately increased left ventricular wall thickness. The left ventricular systolic function is borderline reduced. The visually estimated ejection fraction is between 45-50%. - Mildly increased right ventricular cavity size. There is mildly decreased right ventricular systolic function. - The left atrium is severely dilated. - There is moderate mitral valve regurgitation. - Significantly elevated right atrial pressure. Assessment and Plan Assessment Anesthesia Assessment: Chart Reviewed Final Anesthetic Review Family History of Problems with Anesthesia: No History of Problems with Anesthesia: No
--- NOTE | ~2023-11-10 | FL_ITS ---
EXAMINATION: XR FLUOROSCOPY WITH IMAGES CLINICAL INFORMATION: Right retrograde. COMPARISON: None available. TECHNIQUE: Fluoroscopy Supervised By: Dr. Mcgraw. Fluoroscopy Time: 14.6 seconds. Cumulative Dose: 4.33 mGy. DAP: Not available. Images: 2. FINDINGS: Images demonstrate a right internal ureteral stent in satisfactory position FL/FL guidance in OR IMPRESSION: Fluoroscopy guidance for urology procedure
[2023-11-10 08:06] LABS: Glucose, Whole Blood 166 mg/dL (60-115)
[2023-11-10] MEDS: Lactated Ringers 1,000 ML 50 ML IVCONT (08:08)
[2023-11-10 08:10] VITALS: BMI 34.4
[2023-11-10 08:13] VITALS: BP 152/79; PULSE 86; RESP 18; TEMP 36.7; O2SAT 98
--- NOTE | 2023-11-10 08:24 | MHC.SHP ---
Pre-Procedural Eval Section A Date of Service: 11/10/23 The patient is an INPATIENT: No The History & Physical has been completed within 30 days and I have reviewed it.: Yes Section B Chief Complaint: Crossing vessel and stricture of ureter without hy Allergies: Allergies Allergy/AdvReac Type Severity Reaction Status Date / Time montelukast [Singulair] Allergy Unknown itching/marysol Verified 11/10/23 08:20 h Plan I have reviewed the history and physical and performed a pertinent physical examination on my patient. No changes have occurred unless specified. Cystoscopy retrograde, right ureteral stent exchange. Time Spent With Patient Time: Total time managing care of this patient today ____ minutes.
--- NOTE | 2023-11-10 08:38 | P.CONAN_ITS ---
[facility] Active Problems Active Problems: All Active Problems (Updated 10/09/23 @ 13:28 by Prieto Rao MD) Encounter for preoperative pulmonary examination (Acute) S/P cardiac cath (Acute) Obstruction of right ureteropelvic junction (UPJ) (Acute) Cardiomyopathy (Acute) Mitral regurgitation (Acute) Dyspnea on exertion (Acute) Acute on chronic congestive heart failure (Acute) Persistent atrial fibrillation (Acute) Acute congestive heart failure (Acute) Anxiety (Acute) Acute dyspnea (Acute) Congestive heart failure (Acute) Dysphagia, pharyngoesophageal phase (Acute) Chronic kidney disease (Acute) Hydronephrosis (Acute) Trochanteric bursitis, right hip (Acute) Hydronephrosis, bilateral (Acute) Pleural effusion (Acute) Varicose veins of right lower extremity with inflammation (Acute) Contusion of left lower leg (Acute) Cystocele with rectocele (Acute) NSTEMI (non-ST elevated myocardial infarction) (Acute) Obstruction, uropathy (Acute) Diabetes (Acute) Thrombosed external hemorrhoid (Acute) Gout (Acute) Asthma (Acute) Alcohol abuse (Acute) Nephrolithiasis (Acute) Past Medical History Medical History NSTEMI (non-ST elevated myocardial infarction) Anxiety Asymmetrical thyroid CHF (congestive heart failure) COVID-19 Renal cyst, acquired, left Obstruction, uropathy Thrombosed external hemorrhoid COPD (chronic obstructive pulmonary disease) Atrial fibrillation Gout Asthma Alcohol abuse Nephrolithiasis Knee arthropathy Osteoarthritis Diabetes Arthritis Hypertension Family History Family history of problems with anesthesia: No Surgical History Surgical History Hx of bilateral cataract extraction Hx of hysterectomy Hx of lithotripsy History of total right knee replacement History of esophagogastroduodenoscopy (EGD) Hx of cystoscopy Hx of colonoscopy History of total knee arthroplasty History of Problems with Anesthesia: No Social History Social History Household Members: Family Household Members Other:: DAUGHTER Housing: Apartment Housing Other:: low income housing Do you presently have visiting nurse or other home services: No (granddaughter is silverer) Unable to assess alcohol history related to: Unknown Alcohol intake: unknown Patient Tobacco Use Status: Never used Tobacco e-Cigarette/Vaping Use: Never Used Second Hand Smoke Exposure: No Are you DNR?: No Advance Directives: No Advance Directives Information Provided: Yes Advance Directives Date on File: 09/07/22 Nutrition Risks: No Nutritional Risk service: No Current occupational status: disabled Meds Allergies Allergy/AdvReac Type Severity Reaction Status Date / Time montelukast [Singulair] Allergy Unknown itching/marysol Verified 11/10/23 08:20 h Active Medications: Current Medications Albuterol Sulfate (Albuterol Sulfate (0.083%) 2.5 Mg/3 Ml Vial.Neb) 2.5 mg INHALE ONCE PRN PRN Reason: Shortness of Breath/Wheezing Fentanyl (Fentanyl Citrate/Pf 100 Mcg/2 Ml Vial) 25 mcg IVPUSH Q5M PRN; Protocol PRN Reason: Pain, Moderate(Pain Scale 4-6) Lactated Ringer's (Lr) 1,000 mls @ 50 mls/hr IVCONT .Q20H GONZALEZ Last Admin: 11/10/23 08:08 Dose: 50 mls/hr Ondansetron HCl (Ondansetron Hcl 4 Mg/2 Ml Vial) 4 mg IVPUSH ONCE PRN PRN Reason: Nausea and Vomiting Home Medications Medication Instructions Recorded Confirmed Last Taken Type albuterol sulfate 2.5 mg/3 mL 1 amp inhalation QID PRN Wheezing 09/06/22 10/16/23 12/19/22 History (0.083 %) solution for nebulization blood sugar diagnostic ([employer] 09/06/22 07/28/23 Unknown History Verio test strips) blood-glucose meter ([employer] 09/06/22 07/28/23 Unknown History Verio Flex Meter) fluticasone 250 mcg-salmeterol 50 1 puff inhalation BID 09/06/22 10/16/23 History mcg/dose blistr powdr for inhalation (Advair Diskus) lancets 33 gauge ([employer] 09/06/22 07/28/23 Unknown History Plus Lancet) albuterol sulfate 90 mcg/actuation 2 puff inhalation Q4-6H PRN 10/23/22 10/16/23 Unknown History aerosol inhaler (Ventolin HFA) Wheezing atorvastatin 80 mg tablet 80 mg PO DAILY 10/23/22 10/16/23 12/19/22 History metformin 850 mg tablet 850 mg PO BIDWM 10/23/22 10/16/23 12/18/22 History ferrous gluconate 324 mg (37.5 mg 324 mg PO Q2D 04/09/23 10/16/23 11/07/23 History iron) tablet tramadol 50 mg tablet 50 mg PO Q8H PRN Pain 04/09/23 10/16/23 Unknown History clopidogrel 75 mg tablet 75 mg PO DAILY 04/27/23 10/16/23 11/10/23 History metoprolol succinate 50 mg 50 mg PO DAILY 04/27/23 10/16/23 Unknown History tablet,extended release 24 hr (Toprol XL) acetaminophen 325 mg tablet 650 mg PO Q6H PRN mild pain 05/25/23 10/16/23 Unknown History docusate sodium 100 mg capsule 100 mg PO BID 05/25/23 10/16/23 Unknown History lidocaine 5 % topical patch 1 patch topical DAILY PRN Pain 05/25/23 10/16/23 Unknown History (Scale Score 1-3) polyethylene glycol 3350 17 gram 17 g PO DAILY 05/25/23 10/16/23 Unknown History oral powder packet sennosides 8.6 mg tablet (senna) 1 tab PO BID 05/25/23 10/16/23 Unknown History simethicone 125 mg capsule (Gas 125 mg PO QID PRN Indigestion 05/25/23 10/16/23 Unknown History Relief Extra Strength) clotrimazole 1 % topical cream 1 appl topical BID 07/28/23 10/16/23 Unknown History duloxetine 30 mg capsule,delayed 30 mg PO QAM 07/28/23 10/16/23 Unknown History release Exam Height,Weight and Vital Signs: Height 5 ft 2 in Weight 85.366 kg Last Vital Signs Temp 98.1 F 11/10/23 08:13 Pulse 86 11/10/23 08:13 Resp 18 11/10/23 08:13 BP 152/79 H 11/10/23 08:13 Pulse Ox 98 11/10/23 08:13 O2 Del Method Room Air 11/10/23 08:13 Pertinent Lab Results Pertinent Lab Results: Laboratory Tests 11/10/23 08:03 POC Glucose 166 H Airway Mallampati Class: III TM Dist: >3cm Neck ROM: Full Loose/Missing/Broken Teeth: No Heart: rrr Lungs: clear Assessment and Plan Final Anesthetic Review Family History of Problems with Anesthesia: No History of Problems with Anesthesia: No NPO: Yes ASA Class: IV Final Preanesthetic Review: No Changes in Pt Med Stat, Meds/Allgs Chart Reviewed, Consent Obtained/Reviewed and Anes Risks/Benef Reviewed Patient Risk: High Procedure Risk: Low Anesthetic Plan Anesthetic Plan: GA Disposition: Standard PACU
--- NOTE | 2023-11-10 09:43 | W.PM.OPN ---
Operative Note Operative Note Date of Service: 11/10/23 Narrative: PreOperative Diagnosis:?? Right UPJ obstruction, right hydronephrosis, chronic kidney disease Post Operative Diagnosis:?? Right UPJ obstruction, right hydronephrosis, chronic kidney disease Procedure: Cystoscopy, right ureteroscopy, stent exchange, size 7 [place] by 26 cm Surgeon:?Dr Jacquie Mcgraw Anesthesia:? General Procedure: After informed consent was verified the patient was brought to the operating placed on the OR table in supine position.? General Anesthesia was administered per protocol.? The patient was placed in lithotomy position, prepped and draped in the usual sterile fashion.? Safety pause time-out and side of surgery confirmed.? Antibiotics confirmed. A 22 [place] cystoscope was inserted transurethrally, The bladder was visualized.? Both ureteric orifices were in normal position. The distal end of the right ureteral stent was not visualized in the bladder. On fluoroscopy the distal end of the stent was noted to be curled in the distal ureter. The proximal portion of the stent was in the renal pelvis. An open-ended ureteral catheter was passed into the right ureteral orifice and a guidewire was passed along the stent up into the kidney. A semi-rigid ureteroscope was passed transurethrally into the distal ureter and a stone basket was used to grasp the distal end of the stent and this was pulled out of the ureter and bladder The cystoscope was passed over the guidewire. A? 7 [place] by 26 cm stent was placed over the guide wire into the ureter and renal pelvis under a combination of fluoroscopy and direct visualization. The bladder was emptied.? The rigid cystoscope was removed. ? The patient tolerated the procedure well and was brought to the recovery room in stable condition. Complications: None Drains: Ureteral stent as dictated above
[2023-11-10 09:46] VITALS: BP 196/105; PULSE 104; RESP 18; TEMP 36.1; O2SAT 100
[2023-11-10 09:50] VITALS: BP 172/107; PULSE 91; RESP 18; O2SAT 97
[2023-11-10 09:55] VITALS: BP 176/106; PULSE 91; RESP 18; O2SAT 98
[2023-11-10 10:00] VITALS: BP 172/98; PULSE 84; RESP 16; O2SAT 98
[2023-11-10 10:15] VITALS: BP 179/95; PULSE 106; RESP 16; TEMP 36.1; O2SAT 96
--- NOTE | 2023-11-10 10:23 | PC.NURSE ---
manager financial planning to bedside immediate post op patient calm and questions asked and answered.
== END 2023-11-10 10:48 | disposition home or self-care (01) ==
PROVIDERS: PCP Nurse Practitioner Primary Care; Visit Provider Urology
PROC: 0TJB8ZZ Inspection of Bladder, Via Natural or Artificial Opening Endoscopic (ICD-10-PCS; CPT 52000; principal; 2023-11-10 09:10)
DX: N13.5 Crossing vessel and stricture of ureter without hydronephrosis (principal); N20.0 Calculus of kidney; I48.91 Unspecified atrial fibrillation; I25.2 Old myocardial infarction; I13.0 Hypertensive heart and chronic kidney disease with heart failure and stage 1 through stage 4 chronic kidney disease, or unspecified chronic kidney disease; I50.9 Heart failure, unspecified; N18.9 Chronic kidney disease, unspecified; E11.22 Type 2 diabetes mellitus with diabetic chronic kidney disease; J44.9 Chronic obstructive pulmonary disease, unspecified; F41.9 Anxiety disorder, unspecified; F10.10 Alcohol abuse, uncomplicated; Z79.01 Long term (current) use of anticoagulants; Z79.51 Long term (current) use of inhaled steroids; Z79.84 Long term (current) use of oral hypoglycemic drugs
CPT/HCPCS: 52332; 82947; 87086; C1758; C2617; J0690; J1100; J2405; J2704; J3010; Q9967

== ENCOUNTER → 2023-11-10 07:34 | Outpatient (BNV) | payer OTHER, SELFPAY | PROVIDERS: PCP Nurse Practitioner Primary Care; Visit Provider Urology | DX: N13.0 Hydronephrosis with ureteropelvic junction obstruction (principal) | CPT/HCPCS: 52332 ==

== ENCOUNTER 2023-11-27 12:56 | Outpatient (REF) | payer OTHER, SELFPAY ==
--- NOTE | ~2023-11-27 | XR_ITS ---
EXAMINATION: XR SACRUM AND COCCYX CLINICAL INFORMATION: Status post fall with ongoing pain and buttock region. COMPARISON: None available. TECHNIQUE: 2 views of the sacrum and 2 views of the coccyx were obtained. FINDINGS: There is acute sacrococcygeal angulation however the images are not optimal. The patient has pain in the sacrococcygeal region a CT should be obtained to exclude fracture. The deformity could be results of an old fracture. No presacral and posterior sacral soft tissue swelling. Visualized coccyx is unremarkable. XR/XR sacrum coccyx min 2V IMPRESSION: Mild sacrococcygeal acute angulation. Question old versus new fracture. If patient has acute pain, CT of the sacrum can be performed for further evaluation.
== END 2023-11-27 12:57 | disposition home or self-care (01) ==
LOC: HO.HHCX 12:56
PROVIDERS: Visit Provider Student in an Organized Health Care Education/Training Program
DX: M53.3 Sacrococcygeal disorders, not elsewhere classified (principal)
CPT/HCPCS: 72220

== ENCOUNTER 2023-12-04 10:38 | Outpatient (REF) | payer OTHER, SELFPAY ==
--- NOTE | ~2023-12-04 | CT_ITS ---
EXAMINATION: CT PELVIS WITHOUT CONTRAST CLINICAL INFORMATION: Question coccygeal fracture. COMPARISON: Sacrum/coccyx radiographs dated 11/27/2023. TECHNIQUE: Helical scanning was performed with submillimeter collimation through the pelvis. Sagittal and coronal multiplanar 2-D reconstructions were obtained. This CT examination was performed using dose optimization techniques as appropriate, variously including the following: *Automated exposure control *Adjustment of mA and/or kV according to patient size (this includes techniques or standardized protocols for targeted exams where dose is matched to indication/reason for exam; i.e. extremities or head) *Use of iterative reconstruction technique DLP: 614 mGy-cm FINDINGS: PELVIS: Partially visualized right ureteral stent in appropriate position with the tip curled in the urinary bladder. Nondistended urinary bladder without significant inflammatory change or wall thickening. Sigmoid diverticulosis without bowel wall thickening or evidence of acute diverticulitis. Otherwise, the visualized intrapelvic structures are grossly unremarkable. Skin thickening and subcutaneous edema along the inferior aspect of the right gluteal region which could represent early soft tissue breakdown or cellulitis. No organized fluid collection or abscess formation in this region. Correlate for edema and/or skin breakdown. No pelvic wall hernia. OSSEOUS STRUCTURES: No definite, acute coccygeal fracture. 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 Findings likely appear chronic and the adjacent coccygeal vertebral bodies are corticated. Mild irregularity along the S5-C1 intervertebral disc space. Additionally, there is corticated, linear lucency within the left side of S4. Findings likely represent sequela of remote trauma. No definite acute osseous injury. No concerning lytic or blastic osseous lesion. No femoral head avascular necrosis. Minimal bilateral hip arthrosis. Moderate degenerative change at the symphysis pubis. Degenerative disc disease and facet arthropathy within the lower lumbar spine. CT/CT pelvis wo IV con IMPRESSION: 1. No definite acute coccygeal fracture. 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 Findings likely appear chronic and the adjacent coccygeal vertebral bodies are corticated. 2. Mild irregularity along the S5-C1 intervertebral disc space as well as the left side of S4. Findings likely represent sequela of remote trauma. No definite acute osseous injury. 3. Skin thickening and subcutaneous edema along the inferior aspect of the right gluteal region which could represent early soft tissue breakdown or cellulitis. No organized fluid collection or abscess formation in this region. Correlate for edema and/or skin breakdown. 4. Partially visualized right ureteral stent in appropriate position. Sigmoid diverticulosis without evidence of acute diverticulitis. 5. Moderate degenerative change at the symphysis pubis. Degenerative disc disease and facet arthropathy within the lower lumbar spine.
== END 2023-12-04 10:39 | disposition home or self-care (01) ==
LOC: HO.CT 10:38
PROVIDERS: PCP Student in an Organized Health Care Education/Training Program; Visit Provider Student in an Organized Health Care Education/Training Program
DX: M53.3 Sacrococcygeal disorders, not elsewhere classified (principal)
CPT/HCPCS: 72192

== ENCOUNTER 2023-12-15 11:41 | Emergency (ER) | payer OTHER, SELFPAY ==
--- NOTE | ~2023-12-15 | CT_ITS ---
EXAMINATION: CT HEAD WITHOUT CONTRAST CLINICAL INFORMATION: Fall COMPARISON: Previous head CT August 2023 TECHNIQUE: Contiguous axial imaging was performed from the skull base to vertex without intravenous administration of contrast. This CT examination was performed using dose optimization techniques as appropriate, variously including the following: *Automated exposure control *Adjustment of mA and/or kV according to patient size (this includes techniques or standardized protocols for targeted exams where dose is matched to indication/reason for exam; i.e. extremities or head) *Use of iterative reconstruction technique DLP: 627 mGy-cm FINDINGS: There is no evidence of an extra-axial collection. There is no evidence of intra or extra-axial hemorrhage. The ventricles and extra-axial CSF spaces are prominent suggestive of generalized atrophy. There may be encephalomalacia right temporal lobe and cerebellum, unchanged. There is nonspecific periventricular white matter disease. No mass, mass effect or infarct. No skull fracture. Visualized paranasal sinuses, mastoid air cells are clear. Degenerative changes of the right temporomandibular joint. CT/CT head/brain wo IV con IMPRESSION: No acute findings.
--- NOTE | ~2023-12-15 | CT_ITS ---
EXAMINATION: CT CERVICAL SPINE WITHOUT CONTRAST CLINICAL INFORMATION: Trauma COMPARISON: Previous CT August 2023 TECHNIQUE: Axial images through the cervical spine without IV contrast. Sagittal and coronal reconstructions on the technologist workstation. This CT examination was performed using dose optimization techniques as appropriate, variously including the following: *Automated exposure control *Adjustment of mA and/or kV according to patient size (this includes techniques or standardized protocols for targeted exams where dose is matched to indication/reason for exam; i.e. extremities or head) *Use of iterative reconstruction technique DLP: 326 mGy-cm FINDINGS: Bone alignment is normal. No fracture or dislocation. Multilevel degenerative spondylosis and degenerative disc, greatest at C5-C6 and C6-C7. Multilevel bilateral facet arthritis. Degenerative Changes at the C1 dens articulation. Prevertebral soft tissues are normal. The visualized lung apices are clear. CT/CT cervical spine wo IV con IMPRESSION: Degenerative changes. No fracture or dislocation. Fleischner guidelines were followed.
--- NOTE | ~2023-12-15 | CT_ITS ---
EXAMINATION: CT CHEST WITH CONTRAST CLINICAL INFORMATION: Fall COMPARISON: Previous chest CTA December 2022 TECHNIQUE: Multidetector volumetric CT imaging of the chest was obtained after the administration of 85 mL of Omnipaque 350 intravenous contrast without immediate adverse reactions. Axial MIP volume rendering provided. Sagittal and coronal reformatted images were obtained. This CT examination was performed using dose optimization techniques as appropriate, variously including the following: *Automated exposure control *Adjustment of mA and/or kV according to patient size (this includes techniques or standardized protocols for targeted exams where dose is matched to indication/reason for exam; i.e. extremities or head) *Use of iterative reconstruction technique DLP: 223 mGy-cm FINDINGS: LUNGS: The lungs are clear with no evidence of inflammation or nodules. Mild subsegmental atelectasis in the lung bases. MEDIASTINUM: The heart is enlarged. No pericardial mild coronary artery calcification. Normal caliber thoracic aorta. No enlarged hilar or mediastinal nodes. Reflux of contrast into the liver suggestive of right heart compromise. PLEURA: Small bilateral pleural effusions. No pneumothorax. AXILLA: No lymphadenopathy. UPPER ABDOMEN: The abdominal and pelvic CT the same day. OSSEOUS STRUCTURES: Degenerative changes of the spine. No fracture. CT/CT chest w IV con IMPRESSION: No evidence of acute disease in the chest. Enlarged heart. Small bilateral pleural effusions Fleischner guidelines were followed.
--- NOTE | ~2023-12-15 | US_ITS ---
EXAMINATION: US VENOUS WITH DOPPLER UPPER EXTREMITY, RIGHT CLINICAL INFORMATION: Swelling, ecchymosis COMPARISON: None available. TECHNIQUE: Ultrasound of the upper extremity is performed using compression sonography and color and pulse Doppler flow with assessment of augmentation of flow. There is also imaging and Doppler assessment of the jugular and subclavian veins. Spectral analysis with color-flow imaging is performed. FINDINGS: Respiratory variation and normal compression are noted throughout the upper extremity including the axillary, cephalic, basilic, brachial and radial and ulnar veins. There is normal flow in the internal jugular and subclavian veins. In the area of bruising seen in the region of the elbow, ultrasound demonstrates a focal 1.4 x 1.1 x 0.7 cm hypoechoic area with fluid. There is also significant edema in this area. This may represent an hematoma. US/US venous duplex UE RT IMPRESSION: 1. No DVT demonstrated in the right upper extremity. 2. Probable hematoma in the area of bruising in the region of the elbow.
--- NOTE | ~2023-12-15 | CT_ITS ---
EXAMINATION: CT ABDOMEN AND PELVIS WITH CONTRAST CLINICAL INFORMATION: Fall COMPARISON: Previous CT of the abdomen and pelvis May [address] November 2023 TECHNIQUE: Multidetector volumetric images were obtained from the superior aspect of the liver through the pubic symphysis following administration 85 mL of Omnipaque 350 intravenous contrast. Sagittal and coronal reformatted images were obtained on the technologist's workstation. Oral contrast: Yes This CT examination was performed using dose optimization techniques as appropriate, variously including the following: *Automated exposure control *Adjustment of mA and/or kV according to patient size (this includes techniques or standardized protocols for targeted exams where dose is matched to indication/reason for exam; i.e. extremities or head) *Use of iterative reconstruction technique DLP: 646 mGy-cm FINDINGS: LIVER, GALLBLADDER, AND BILIARY TREE: The liver is normal in size, shape, and attenuation. No focal hepatic lesion or biliary ductal dilatation is present. The gallbladder is unremarkable with no evidence of radiopaque gallstones, gallbladder wall thickening, or obvious pericholecystic inflammatory changes. PANCREAS: Unremarkable. SPLEEN: Unremarkable. ADRENAL GLANDS: Unremarkable. KIDNEYS AND URETERS: Right internal ureteral stent in satisfactory addition. No hydronephrosis. Small cyst in the lower pole of the right kidney. Multiple left lower pole renal stones, largest 6 x 9 mm. No calyceal dilatation. Dilated left renal pelvis suggestive of left obstruction. This is similar-appearing to prior exams. Multiple renal cysts. Largest cyst Bosniak type II F cyst with thin calcified septation. No imaging follow-up recommended. BLADDER: Unremarkable. GASTROINTESTINAL TRACT: Diverticulosis of the colon. Constipation. Normal appendix. Question mild no ascites. No free air. ABDOMINAL WALL: Small bilateral inguinal and umbilical hernias containing fat. LYMPH NODES: Normal. VASCULAR: Atherosclerotic disease. No aneurysm. PELVIC VISCERA: Unremarkable. OSSEOUS STRUCTURES: Degenerative changes spine. No acute fracture. CT/CT abdomen pelvis w IV con IMPRESSION: No acute findings. Diverticulosis of constipation. Right ureteral stent. Left renal stones. 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 Fleischner guidelines were followed.
[2023-12-15 11:55] VITALS: BP 149/51; BP 150/86; PULSE 75; PULSE 76; RESP 18; TEMP 36.3; O2SAT 96; O2SAT 97; BMI 32.3
--- NOTE | 2023-12-15 13:04 | PC.NURSE ---
pt a&o, vss, pt answering questions appropriately, denying pain/discomfort, pt awaiting radiology results, call cantu within reach, will continue to monitor
--- NOTE | 2023-12-15 13:06 | ECG_ITS ---
Test Reason : ?SYNCOPE Blood Pressure : / mmHG Vent. Rate : 051 BPM Atrial Rate : 000 BPM P-R Int : 000 ms QRS Dur : 086 ms QT Int : 460 ms P-R-T Axes : 000 -01 106 degrees QTc Int : 423 ms Atrial fibrillation with slow ventricular response Nonspecific ST and T wave abnormality Abnormal ECG When compared with ECG of 25-MAY-2023 18:06, Vent. rate has decreased BY 28 BPM Criteria for Septal infarct are no longer Present Referred By: Salina Lawler Electronically Signed By:BRUNA GUADARRAMA
--- NOTE | 2023-12-15 13:07 | ED.GENADULT ---
HPI - General Adult General Chief complaint: Fall Stated complaint: FALL 4 DAYS AGO,FROM CLINIC PER EMS Time Seen by Provider: 12/15/23 13:06 History of Present Illness HPI narrative: 78 y/o F patient; PMH T2DM, HTN, asthma, paroxysmal atrial fibrillation on Eliquis, CHF, hx NSTEMI, nephrolithiasis; presents as referral from [facility] for generalized body pain s/p unwitnessed fall 4 days ago. The patient states the fall occurred when she lost balance. She denies head strike or LOC. She states she has had multiple falls recently but that this fall was worse than previous. She reports right upper extremity pain, swelling, and bruising. She also reports right posterior lower rib pain. The patient states she has been able to walk with her walker. She denies: headache, visual changes, nausea/vomiting, diarrhea, chest pain, difficulty breathing, cough/congestion, dysuria, hematuria. The patient states she lives alone but close to her daughter and family. 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 Patient is very upset regarding wait in emergency department. Discussed concerns, as well as risk versus benefits of leaving the emergency department prior to evaluation. Patient agreeable to waiting for imaging and laboratory studies. Related Data Home Medications Medication Instructions Recorded Confirmed albuterol sulfate 2.5 mg/3 mL 1 amp inhalation QID PRN Wheezing 09/06/22 10/16/23 (0.083 %) solution for nebulization blood sugar diagnostic (OneTouch 09/06/22 07/28/23 Verio test strips) blood-glucose meter (OneTouch 09/06/22 07/28/23 Verio Flex Meter) fluticasone 250 mcg-salmeterol 50 1 puff inhalation BID 09/06/22 10/16/23 mcg/dose blistr powdr for inhalation (Advair Diskus) lancets 33 gauge (OneTouch Delica 09/06/22 07/28/23 Plus Lancet) albuterol sulfate 90 mcg/actuation 2 puff inhalation Q4-6H PRN 10/23/22 10/16/23 aerosol inhaler (Ventolin HFA) Wheezing atorvastatin 80 mg tablet 80 mg PO DAILY 10/23/22 10/16/23 metformin 850 mg tablet 850 mg PO BIDWM 10/23/22 10/16/23 ferrous gluconate 324 mg (37.5 mg 324 mg PO Q2D 04/09/23 10/16/23 iron) tablet tramadol 50 mg tablet 50 mg PO Q8H PRN Pain 04/09/23 10/16/23 clopidogrel 75 mg tablet 75 mg PO DAILY 04/27/23 10/16/23 metoprolol succinate 50 mg 50 mg PO DAILY 04/27/23 10/16/23 tablet,extended release 24 hr (Toprol XL) acetaminophen 325 mg tablet 650 mg PO Q6H PRN mild pain 05/25/23 10/16/23 docusate sodium 100 mg capsule 100 mg PO BID 05/25/23 10/16/23 lidocaine 5 % topical patch 1 patch topical DAILY PRN Pain 05/25/23 10/16/23 (Scale Score 1-3) polyethylene glycol 3350 17 gram 17 g PO DAILY 05/25/23 10/16/23 oral powder packet sennosides 8.6 mg tablet (senna) 1 tab PO BID 05/25/23 10/16/23 simethicone 125 mg capsule (Gas 125 mg PO QID PRN Indigestion 05/25/23 10/16/23 Relief Extra Strength) clotrimazole 1 % topical cream 1 appl topical BID 07/28/23 10/16/23 duloxetine 30 mg capsule,delayed 30 mg PO QAM 07/28/23 10/16/23 release Previous Rx's Medication Instructions Recorded apixaban 5 mg tablet (Eliquis) 5 mg PO BID #60 tabs 12/27/22 mirabegron 50 mg tablet,extended 50 mg PO DAILY #30 tabs 06/05/23 release 24 hr (Myrbetriq) furosemide 40 mg tablet 40 mg PO BID #100 tabs 06/26/23 methylcellulose (laxative) 500 mg 500 mg PO DAILY #90 tabs 07/28/23 tablet (Citrucel) famotidine 20 mg tablet 20 mg PO BID #180 tabs 08/20/23 enoxaparin 80 mg/0.8 mL 80 mg (0.8 mL) subcut .COMPLEX 09/29/23 subcutaneous syringe (Lovenox) Lovenox bridge 2 days #3 ea azithromycin 250 mg tablet See Rx Instructions PO .COMPLEX #6 10/09/23 tabs cephalexin 500 mg capsule 500 mg PO BID 5 days #10 caps 11/10/23 Allergies Allergy/AdvReac Type Severity Reaction Status Date / Time montelukast [Singulair] Allergy Unknown itching/marysol Verified 11/10/23 08:20 h Review of Systems Review of Systems: Yes all other systems are reviewed and are negative Neurologic: Denies Sensory deficit (Neuro) [facility] Past Medical History Attestation statement: The following information was validated with the patient. Source: old records reviewed Medical History NSTEMI (non-ST elevated myocardial infarction) Anxiety Asymmetrical thyroid CHF (congestive heart failure) COVID-19 Renal cyst, acquired, left Obstruction, uropathy Thrombosed external hemorrhoid COPD (chronic obstructive pulmonary disease) Atrial fibrillation Gout Asthma Alcohol abuse Nephrolithiasis Knee arthropathy Osteoarthritis Diabetes Arthritis Hypertension Surgical History Hx of bilateral cataract extraction Hx of hysterectomy Hx of lithotripsy History of total right knee replacement History of esophagogastroduodenoscopy (EGD) Hx of cystoscopy Hx of colonoscopy History of total knee arthroplasty Social History Social History Household Members: Family Household Members Other:: DAUGHTER Housing: Apartment Housing Other:: low income housing Do you presently have visiting nurse or other home services: No (granddaughter is protective services case worker) Unable to assess alcohol history related to: Unknown Alcohol intake: unknown Patient Tobacco Use Status: Never used Tobacco Smoked in Last 30 Days: No e-Cigarette/Vaping Use: Never Used Second Hand Smoke Exposure: No Use of substances other than those prescribed or required for medical reasons: No Advance Directives: Yes Advance Directives on File: Yes Advance Directives Date on File: 09/07/22 service: No Current occupational status: disabled Physical Exam ED Vital Signs: Vital Signs - 24 hr 12/15/23 11:55 Temperature 97.3 F Pulse Rate 75 Respiratory Rate 18 Blood Pressure 149/51 H Pulse Oximetry 96 Oxygen Delivery Method Room Air BMI result Body Mass Index 32.3 Patient is afebrile, mildly hypertensive and hemodynamically stable. Const Other: Patient is ambulatory with cane to bathroom. Orientation/consciousness: patient oriented x3 HENMT Head: Yes normal to inspection and Yes atraumatic Ears: TM's normal bilaterally General nose exam: Normal external nose present Face and sinus: Yes normal facial exam Mouth: Normal oral and palatal mucosa present Eyes General: appearance normal, both eyes and all related structures Pupils: Equal, round and reactive pupils present EOM: EOMs intact bilaterally Neck Neck: Yes normal visual inspection, Yes full ROM, Yes supple and No tender Chest Other: Tenderness to right posterior inferior ribs with point location of pain. No crepitus or step-off. Chest palpation & inspection: normal inspection of the chest Resp Effort & Inspection: normal respiratory effort and able to speak in complete sentences Auscultation: clear to auscultation bilaterally Cardio Other: 2+ bilateral lower extremity edema Rate: regular rate Rhythm: other (irregularly irregular rhythm ) Peripheral pulses: Peripheral pulses 2+ throughout GI Inspection: Yes normal to inspection and No distended Palpation (GI): Soft to palpation, not firm, nontender, no guarding and not rigid Auscultation: normal bowel sounds General: Yes no CVA tenderness Back/Spine/Pelvis Back: no CVA tenderness Cervical Spine: No Cervical spine tenderness Neuro General: patient oriented x3 and moves all extremities Cranial nerves: Yes CN's II-XII intact bilaterally and Yes Equal, round and reactive pupils present Motor exam (neuro): 5/5 motor strength present throughout Sensory Exam: No Sensory deficit (Neuro) Extrem Other: FROM bilateral lower extremities, NVI, atraumatic. FROM right upper extremity with ecchymosis to right upper arm associated with + hematoma, + edema, + tenderness. Soft compartments. NVI. FROM left upper extremity, NVI, atraumatic. Course Course Course Narrative: Will obtain basic laboratory studies including CBC, CMP, lipase, troponin, and BNP. Will obtain CT Head, Neck, Chest/Abdomen/Pelvis with spinal reconstitution. Will also obtain US RUE due to concern for large hematoma as patient is on eliquis blood thinner. Provided pain control with tylenol and lidoderm patch to right posterior inferior ribs. Reevaluation(s) Reevaluation #1: Labs reviewed. No significant leukocytosis. BNP 351, decreased compared to 10/2023. Troponin within appropriate levels. US with evidence of hematoma without DVT. Pending CT scan results. Reevaluation #2: CT Head and Cervical Spine unremarkable. CT Chest/Abdomen/Pelvis with small bilateral pleural effusions, without other acute abnormalities. Patient has been ambulatory without difficulty. Discussed options for physical therapy and possible rehab with patient given multiple reported recent falls. Patient declines and states she would prefer discharge to home. Patient is ambulatory with her cane without assistance. Plan: Discharge to home with PCP follow up Return precautions given Medications Administered Discontinued Medications Generic Name Dose Route Start Last Admin Trade Name Angelika PRN Reason Stop Dose Admin Acetaminophen 975 mg 12/15/23 13:37 12/15/23 14:08 Acetaminophen 325 Mg Tablet PO 12/15/23 13:38 975 mg ONCE ONE Administration Iohexol 100 ml 12/15/23 15:55 12/15/23 15:58 Iohexol 350 Mg/Ml 100 Ml Infus..Btl IV 12/15/23 15:56 85 ml ONCE ONE Administration Lidocaine 1 patch 12/15/23 13:37 12/15/23 14:10 Lidocaine 4 % Patch Adh..Patch TRANSDERMA 12/15/23 13:38 1 patch ONCE ONE Administration Protocol Medical Decision Making Lab Data 12/15/23 14:30 12/15/23 14:30 Labs: Lab Results 12/15/23 Range/Units 14:30 WBC 5.1 (4.8-10.8) X10*3/uL RBC 3.95 L (4.20-5.50) X10*6/uL Hgb 10.9 L (12.0-16.0) g/dl Hct 34.0 L (37.0-47.0) % MCV 86.1 (80.0-98.0) fL MCH 27.6 (27.0-33.0) pg MCHC 32.1 (31.0-35.0) g/dl RDW 15.1 (11.0-16.0) % Plt Count 268 (160-400) X10*3/uL MPV 10.2 (9.4-12.3) fL Immature Gran % (Auto) 0.2 (0.0-0.4) % Neut % (Auto) 62.2 (45-73) % Lymph % (Auto) 19.5 L (20-40) % [place] % (Auto) 11.6 H (2-11) % Eos % (Auto) 5.7 H (0-4) % Baso % (Auto) 0.8 (0-2) % Lymph # (Auto) 1.0 L (1.2-4.9) X10*3/uL [place] # (Auto) 0.6 (0.1-1.2) X10*3/uL Eos # (Auto) 0.3 (0.0-0.4) X10*3/uL Baso # (Auto) 0.0 (0.0-0.2) X10*3/uL Abs Immat Gran (auto) 0.01 (0.00-0.03) X10*3/uL Absolute Neuts (auto) 3.2 (2.0-8.3) x10*3/uL Absolute Nucleated RBC 0.000 (0.0-0.012) X10*3/uL Nucleated RBC % (auto) 0.0 (0.0-0.2) /100WBC Sodium 139 (135-145) mmol/L Potassium 4.3 (3.3-5.1) mmol/L Chloride 104 (96-108) mmol/L Carbon Dioxide 24 (22-29) mmol/L Anion Gap 15 (12-20) BUN 26 H (9-16) mg/dL Creatinine 1.20 (0.5-1.4) mg/dL Estim Creat Clear Calc 40.1 Estimated GFR 43 Random Glucose 127 H (60-115) mg/dL Calcium 9.5 (8.4-10.2) mg/dL Total Bilirubin 0.4 (0.0-1.0) mg/dL Direct Bilirubin 0.2 (0.0-0.5) mg/dL AST 28 (5-31) U/L ALT 17 (0-31) U/L Alkaline Phosphatase 106 (39-117) U/L Troponin I High Sens 9.4 D (<3.5-17.0) ng/L B-Natriuretic Peptide 351 H (<100) pg/mL Total Protein 7.5 (6.5-8.0) g/dL Albumin 4.0 (3.5-5.0) g/dL Lipase 25 (8-78) U/L Independent Interpretation I performed an independent interpretation of an: EKG Interpretation: Atrial fibrillation 51BPM without ischemic changes Radiology Impression Discussion of test interpretation with radiology: I discussed test interpretation with the radiologist Radiologist Impression: EXAMINATION: CT HEAD WITHOUT CONTRAST CLINICAL INFORMATION: Fall COMPARISON: Previous head CT August 2023 TECHNIQUE: Contiguous axial imaging was performed from the skull base to vertex without intravenous administration of contrast. This CT examination was performed using dose optimization techniques as appropriate, variously including the following: *Automated exposure control *Adjustment of mA and/or kV according to patient size (this includes techniques or standardized protocols for targeted exams where dose is matched to indication/reason for exam; i.e. extremities or head) *Use of iterative reconstruction technique DLP: 627 mGy-cm FINDINGS: There is no evidence of an extra-axial collection. There is no evidence of intra or extra-axial hemorrhage. The ventricles and extra-axial CSF spaces are prominent suggestive of generalized atrophy. There may be encephalomalacia right temporal lobe and cerebellum, unchanged. There is nonspecific periventricular white matter disease. No mass, mass effect or infarct. No skull fracture. Visualized paranasal sinuses, mastoid air cells are clear. Degenerative changes of the right temporomandibular joint. CT/CT head/brain wo IV con IMPRESSION: No acute findings. EXAMINATION: CT CERVICAL SPINE WITHOUT CONTRAST CLINICAL INFORMATION: Trauma COMPARISON: Previous CT August 2023 TECHNIQUE: Axial images through the cervical spine without IV contrast. Sagittal and coronal reconstructions on the technologist workstation. This CT examination was performed using dose optimization techniques as appropriate, variously including the following: *Automated exposure control *Adjustment of mA and/or kV according to patient size (this includes techniques or standardized protocols for targeted exams where dose is matched to indication/reason for exam; i.e. extremities or head) *Use of iterative reconstruction technique DLP: 326 mGy-cm FINDINGS: Bone alignment is normal. No fracture or dislocation. Multilevel degenerative spondylosis and degenerative disc, greatest at C5-C6 and C6-C7. Multilevel bilateral facet arthritis. Degenerative Changes at the C1 dens articulation. Prevertebral soft tissues are normal. The visualized lung apices are clear. CT/CT cervical spine wo IV con IMPRESSION: Degenerative changes. No fracture or dislocation. Fleischner guidelines were followed. EXAMINATION: CT CHEST WITH CONTRAST CLINICAL INFORMATION: Fall COMPARISON: Previous chest CTA December 2022 TECHNIQUE: Multidetector volumetric CT imaging of the chest was obtained after the administration of 85 mL of Omnipaque 350 intravenous contrast without immediate adverse reactions. Axial MIP volume rendering provided. Sagittal and coronal reformatted images were obtained. This CT examination was performed using dose optimization techniques as appropriate, variously including the following: *Automated exposure control *Adjustment of mA and/or kV according to patient size (this includes techniques or standardized protocols for targeted exams where dose is matched to indication/reason for exam; i.e. extremities or head) *Use of iterative reconstruction technique DLP: 223 mGy-cm FINDINGS: LUNGS: The lungs are clear with no evidence of inflammation or nodules. Mild subsegmental atelectasis in the lung bases. MEDIASTINUM: The heart is enlarged. No pericardial mild coronary artery calcification. Normal caliber thoracic aorta. No enlarged hilar or mediastinal nodes. Reflux of contrast into the liver suggestive of right heart compromise. PLEURA: Small bilateral pleural effusions. No pneumothorax. AXILLA: No lymphadenopathy. UPPER ABDOMEN: The abdominal and pelvic CT the same day. OSSEOUS STRUCTURES: Degenerative changes of the spine. No fracture. CT/CT chest w IV con IMPRESSION: No evidence of acute disease in the chest. Enlarged heart. Small bilateral pleural effusions Fleischner guidelines were followed. EXAMINATION: CT ABDOMEN AND PELVIS WITH CONTRAST CLINICAL INFORMATION: Fall COMPARISON: Previous CT of the abdomen and pelvis May [address] November 2023 TECHNIQUE: Multidetector volumetric images were obtained from the superior aspect of the liver through the pubic symphysis following administration 85 mL of Omnipaque 350 intravenous contrast. Sagittal and coronal reformatted images were obtained on the technologist's workstation. Oral contrast: Yes This CT examination was performed using dose optimization techniques as appropriate, variously including the following: *Automated exposure control *Adjustment of mA and/or kV according to patient size (this includes techniques or standardized protocols for targeted exams where dose is matched to indication/reason for exam; i.e. extremities or head) *Use of iterative reconstruction technique DLP: 646 mGy-cm FINDINGS: LIVER, GALLBLADDER, AND BILIARY TREE: The liver is normal in size, shape, and attenuation. No focal hepatic lesion or biliary ductal dilatation is present. The gallbladder is unremarkable with no evidence of radiopaque gallstones, gallbladder wall thickening, or obvious pericholecystic inflammatory changes. PANCREAS: Unremarkable. SPLEEN: Unremarkable. ADRENAL GLANDS: Unremarkable. KIDNEYS AND URETERS: Right internal ureteral stent in satisfactory addition. No hydronephrosis. Small cyst in the lower pole of the right kidney. Multiple left lower pole renal stones, largest 6 x 9 mm. No calyceal dilatation. Dilated left renal pelvis suggestive of left obstruction. This is similar-appearing to prior exams. Multiple renal cysts. Largest cyst Bosniak type II F cyst with thin calcified septation. No imaging follow-up recommended. BLADDER: Unremarkable. GASTROINTESTINAL TRACT: Diverticulosis of the colon. Constipation. Normal appendix. Question mild no ascites. No free air. ABDOMINAL WALL: Small bilateral inguinal and umbilical hernias containing fat. LYMPH NODES: Normal. VASCULAR: Atherosclerotic disease. No aneurysm. PELVIC VISCERA: Unremarkable. OSSEOUS STRUCTURES: Degenerative changes spine. No acute fracture. CT/CT abdomen pelvis w IV con IMPRESSION: No acute findings. Diverticulosis of constipation. Right ureteral stent. Left renal stones. 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 Fleischner guidelines were followed. Discharge Plan Discharge Clinical Impression: Fall Patient Disposition: Home, Self-Care Instructions: Fall Prevention for Older Adults (ED) Additional Instructions: As we discussed, you were seen today after a fall. Your labs were at your normal. Your US showed a small collection of blood without a deep vein clot. Your CT Head/Neck/Chest/Abdomen/Pelvis showed only a small amount of fluid in your lungs without any new trauma. We discussed physical therapy or rehab but you declined at this time. Please follow up with your PCP within the next 1 week for re-evaluation. Return to the Emergency Department for any further falls. Prescriptions: No Action Myrbetriq 50 mg tablet extended release 24 hr 50 mg PO DAILY Qty: 30 5RF furosemide 40 mg tablet 40 mg PO BID Qty: 100 3RF Citrucel 500 mg tablet 500 mg PO DAILY Qty: 90 2RF Rx Instructions: take it with full glass of water famotidine 20 mg tablet 20 mg PO BID Qty: 180 2RF enoxaparin [Lovenox] 80 mg/0.8 mL syringe 80 mg subcut .COMPLEX 2 Days Qty: 3 0RF Rx Instructions: 80 mg subcutaneously 12/10 am, 12/10 pm and 12/11 am; fluticasone propion-salmeterol [Advair Diskus] 250-50 mcg/dose blister with device 1 puff INHALATION BID albuterol sulfate 2.5 mg /3 mL (0.083 %) solution for nebulization 1 amp inhalation QID PRN (Reason: Wheezing) (DME) blood-glucose meter [OneTouch Verio Flex meter] Misc MISCELLANEOUS DIRECTED (DME) OneTouch Verio test strips Strip MISCELLANEOUS BID (DME) lancets [OneTouch Delica Plus Lancet] 33 gauge misc MISCELLANEOUS BID Eliquis 5 mg tablet 5 mg PO BID Qty: 60 0RF Hold Instructions: Resume on 06/05/23. On hold due to hematuria from obstructive uropathy and recent stent placement tramadol 50 mg Tablet 50 mg PO Q8H PRN (Reason: Pain) ferrous gluconate 324 mg (37.5 mg iron) Tablet 324 mg PO Q2D acetaminophen 325 mg tablet 650 mg PO Q6H PRN (Reason: mild pain) polyethylene glycol 3350 17 gram Powder In Packet 17 g PO DAILY lidocaine 5 % Adhesive Patch,Medicated 1 patch TOPICAL DAILY PRN (Reason: Pain (Scale Score 1-3)) Rx Instructions: leave on most painful area for up to 12 hrs docusate sodium 100 mg capsule 100 mg PO BID sennosides [senna] 8.6 mg tablet 1 tab PO BID simethicone [Gas Relief Extra Strength] 125 mg capsule 125 mg PO QID PRN (Reason: Indigestion) cephalexin 500 mg capsule 500 mg PO BID 5 Days Qty: 10 0RF metformin 850 mg tablet 850 mg PO BIDWM atorvastatin 80 mg tablet 80 mg PO DAILY albuterol sulfate [Ventolin HFA] 90 mcg/actuation HFA aerosol inhaler 2 puff inhalation Q4-6H PRN (Reason: Wheezing) clopidogrel 75 mg tablet 75 mg PO DAILY metoprolol succinate [Toprol XL] 50 mg tablet extended release 24 hr 50 mg PO DAILY clotrimazole 1 % cream 1 appl topical BID duloxetine 30 mg capsule,delayed release(DR/EC) 30 mg PO QAM azithromycin 250 mg tablet See Rx Instructions PO .COMPLEX Qty: 6 0RF Rx Instructions: For 250 mg dose pack: take 500 mg today (day 1), then 250 mg for 4 days (days 2-5) PO Referrals: Joanne Wilson MD [Primary Care Provider] - 1 week
[2023-12-15] MEDS: Acetaminophen 325 MG TABLET 975 MG PO (14:08)
[2023-12-15] MEDS: Lidocaine 4 % Patch ADH..PATCH 1 PATCH TRANSDERMA (14:10)
[2023-12-15 14:34] LABS: MANUAL DIFF FLAG NO
[2023-12-15 14:36] LABS: Basophils Percent Auto 0.8 % (0-2); Eosinophils Absolute Auto 0.3 X10*3/uL (0.0-0.4); Eosinophils Percent Auto 5.7 % (0-4); Hemoglobin 10.9 g/dl (12.0-16.0); Imm Gran Abs Auto 0.01 X10*3/uL (0.00-0.03); Imm Gran Pct Auto 0.2 % (0.0-0.4); Lymphocytes Percent Auto 19.5 % (20-40); Mean Corpuscular HGB Conc 32.1 g/dl (31.0-35.0); Mean Corpuscular Hemoglobin 27.6 pg (27.0-33.0); Mean Corpuscular Volume 86.1 fL (80.0-98.0); Mean Platelet Volume 10.2 fL (9.4-12.3); Monocytes Absolute Auto 0.6 X10*3/uL (0.1-1.2); Monocytes Percent Auto 11.6 % (2-11); Neutrophils Absolute Auto 3.2 x10*3/uL (2.0-8.3); Neutrophils Percent Auto 62.2 % (45-73); Platelet Count 268 X10*3/uL (160-400); Red Blood Count 3.95 X10*6/uL (4.20-5.50); Red Cell Distribution Width 15.1 % (11.0-16.0); White Blood Count 5.1 X10*3/uL (4.8-10.8)
[2023-12-15 14:58] LABS: Alanine Aminotransferase 17 U/L (0-31); Alkaline Phosphatase 106 U/L (39-117); Anion Gap 15 (12-20); Aspartate Amino Transferase 28 U/L (5-31); Bilirubin Direct 0.2 mg/dL (0.0-0.5); Bilirubin Total 0.4 mg/dL (0.0-1.0); Blood Urea Nitrogen 26 mg/dL (9-16); Calcium 9.5 mg/dL (8.4-10.2); Carbon Dioxide 24 mmol/L (22-29); Chloride 104 mmol/L (96-108); Creatinine Clr Calc Pharmacy 40.1; Estimated Glomerular Filt Rate 43; Glucose Random 127 mg/dL (60-115); Lipase 25 U/L (8-78); Potassium 4.3 mmol/L (3.3-5.1); Sodium 139 mmol/L (135-145); Total Protein 7.5 g/dL (6.5-8.0)
[2023-12-15 15:02] LABS: B Type Natriuretic Peptide 351 pg/mL (<100)
[2023-12-15 15:05] LABS: Troponin-I High Sensitivity 9.4 ng/L (<3.5-17.0)
[2023-12-15] MEDS: iohexoL 350 MG/ML 100 ML INFUS..BTL IV (15:58)
[2023-12-15 18:32] VITALS: BP 151/63; PULSE 77; RESP 18; TEMP 36.7; O2SAT 96
== END 2023-12-15 18:34 | disposition home or self-care (01) ==
PROVIDERS: Emergency Provider Emergency Medicine; PCP Internal Medicine
DX: R29.6 Repeated falls (principal); R60.0 Localized edema; J90 Pleural effusion, not elsewhere classified; Z91.81 History of falling; E11.22 Type 2 diabetes mellitus with diabetic chronic kidney disease; I13.0 Hypertensive heart and chronic kidney disease with heart failure and stage 1 through stage 4 chronic kidney disease, or unspecified chronic kidney disease; N18.9 Chronic kidney disease, unspecified; I50.9 Heart failure, unspecified; I48.0 Paroxysmal atrial fibrillation; Z79.01 Long term (current) use of anticoagulants; Z79.899 Other long term (current) drug therapy
CPT/HCPCS: 36415; 70450; 71260; 72125; 74177; 80048; 80076; 83690; 83880; 84484; 85025; 93005; 93971; 99284; 99285; Q9967

== ENCOUNTER → 2023-12-15 13:06 | Outpatient (BNV) | payer OTHER, SELFPAY | PROVIDERS: Emergency Provider Emergency Medicine; PCP Internal Medicine; Visit Provider Internal Medicine | DX: R55 Syncope and collapse (principal) | CPT/HCPCS: 93010 ==

== ENCOUNTER 2024-01-06 11:44 | Outpatient (REF) | payer OTHER, SELFPAY ==
[2024-01-06 13:42] LABS: MANUAL DIFF FLAG NO
[2024-01-06 13:48] LABS: Appearance Urine Cloudy; Color Urine Yellow; Glucose Urine UA Negative (Negative); Leukocyte Esterase Urine Moderate (2+) (Negative); Nitrite Urine Negative (Negative); PH 5.5 (5.0-9.0); UMIC TRIGGER UACC YES; Urine Blood Large (3+) (Negative); Urine Ketones Trace mg/dL (Negative); Urine Protein 100 (2+) mg/dL (Neg-Trace)
[2024-01-06 13:52] LABS: Bacteria Urine None Seen (None Seen); Hyaline Casts Urine 0-2 /LPF (0-2); RBC Urine >20 /HPF (0-2); UACC Culture Trigger YES; WBC Urine 21-50 /HPF (0-5)
[2024-01-06 13:57] LABS: Basophils Percent Auto 0.8 % (0-2); Eosinophils Absolute Auto 0.3 X10*3/uL (0.0-0.4); Eosinophils Percent Auto 5.7 % (0-4); Hematocrit 36.9 % (37.0-47.0); Hemoglobin 11.7 g/dl (12.0-16.0); Imm Gran Abs Auto 0.01 X10*3/uL (0.00-0.03); Imm Gran Pct Auto 0.2 % (0.0-0.4); Lymphocytes Absolute Auto 1.2 X10*3/uL (1.2-4.9); Lymphocytes Percent Auto 23.6 % (20-40); Mean Corpuscular HGB Conc 31.7 g/dl (31.0-35.0); Mean Corpuscular Hemoglobin 27.3 pg (27.0-33.0); Mean Platelet Volume 10.6 fL (9.4-12.3); Monocytes Absolute Auto 0.7 X10*3/uL (0.1-1.2); Monocytes Percent Auto 13.6 % (2-11); Neutrophils Absolute Auto 2.9 x10*3/uL (2.0-8.3); Neutrophils Percent Auto 56.1 % (45-73); Platelet Count 285 X10*3/uL (160-400); Red Blood Count 4.29 X10*6/uL (4.20-5.50); Red Cell Distribution Width 13.8 % (11.0-16.0); White Blood Count 5.1 X10*3/uL (4.8-10.8)
[2024-01-06 14:27] LABS: Alanine Aminotransferase 17 U/L (0-31); Albumin Level 4.3 g/dL (3.5-5.0); Alkaline Phosphatase 131 U/L (39-117); Anion Gap 11 (12-20); Aspartate Amino Transferase 24 U/L (5-31); Bilirubin Total 0.3 mg/dL (0.0-1.0); Blood Urea Nitrogen 43 mg/dL (9-16); Carbon Dioxide 31 mmol/L (22-29); Chloride 100 mmol/L (96-108); Estimated Glomerular Filt Rate 43; Glucose Random 144 mg/dL (60-115); Potassium 4.2 mmol/L (3.3-5.1); Sodium 138 mmol/L (135-145); Total Protein 7.8 g/dL (6.5-8.0)
[2024-01-06 14:28] LABS: Vitamin D 25-OH Total 29.1 ng/mL (>30)
[2024-01-07 10:22] LABS: Gamma Glutamyl Transpeptidase 45 U/L (7-33)
== END 2024-01-06 11:45 | disposition home or self-care (01) ==
LOC: HO.HHCL 11:44
PROVIDERS: Visit Provider Student in an Organized Health Care Education/Training Program
DX: R39.15 Urgency of urination (principal); R79.89 Other specified abnormal findings of blood chemistry; Z91.81 History of falling
CPT/HCPCS: 36415; 80053; 81001; 82306; 82977; 85025; 87086

== ENCOUNTER 2024-03-15 07:53 | Emergency (ER) | payer OTHER, SELFPAY ==
--- NOTE | ~2024-03-15 | XR_ITS ---
EXAMINATION: XR SHOULDER, LEFT XR WRIST, LEFT CLINICAL INFORMATION: Hand and wrist pain with left shoulder pain COMPARISON: Chest radiograph 11/04/2023 TECHNIQUE: Two views of the left shoulder. 5 views left wrist and hand FINDINGS: Some mild degenerative changes are present in the shoulder without evidence of fractures, dislocations or rotator cuff calcification. There is generalized osteopenia. Mild degenerative changes are present at the interphalangeal joints. Mild irregularity at the base of the proximal phalanx of the second digit on its radial aspect probably secondary to old trauma or degenerative change. No chondrocalcinosis. No fractures are seen. XR/XR shoulder LT min 2V IMPRESSION: Mild degenerative changes in the left shoulder and hand. No acute finding.
--- NOTE | ~2024-03-15 | CT_ITS ---
EXAMINATION: CT CHEST, ABDOMEN AND PELVIS WITH CONTRAST CLINICAL INFORMATION: Fall onto chest with chest and abdominal pain. COMPARISON: CT chest and abdomen 12/15/2023. TECHNIQUE: Multidetector volumetric imaging was performed from the thoracic inlet through the pubic symphysis following administration of 85 mL of Omnipaque 350. Sagittal and coronal reformatted images were obtained on the technologist's workstation. This CT examination was performed using dose optimization techniques as appropriate, variously including the following: *Automated exposure control *Adjustment of mA and/or kV according to patient size (this includes techniques or standardized protocols for targeted exams where dose is matched to indication/reason for exam; i.e. extremities or head) *Use of iterative reconstruction technique DLP: 456 mGy-cm FINDINGS: CHEST: Lungs: The lungs are clear without focal opacity or nodule. Mediastinum: The heart is enlarged. The aorta and pulmonary arteries are unremarkable. No hilar or mediastinal lymphadenopathy. Coronary Artery Calcium: Present. Pericardium/Pleura: No significant effusion. No pleural mass or thickening. Chest Wall/Axilla: Unremarkable. ABDOMEN/PELVIS: Peritoneal Space: No significant free air or free fluid identified. Liver, Gallbladder, Biliary Tree: The liver is normal in size, shape, and attenuation. No focal hepatic lesion or biliary ductal dilatation is present. The gallbladder is unremarkable with no evidence of radiopaque gallstones, gallbladder wall thickening, or obvious pericholecystic inflammatory changes. Pancreas: Unremarkable. Spleen: Unremarkable. Adrenal Glands: Unremarkable. Kidneys and Ureters: A double-J stent is present in the right ureter. The proximal end is in the distal right ureteral pelvic junction with the distal end coiled in the bladder. No hydronephrosis or stones are seen. No right renal masses. On the left, again seen is a large benign Bosniak class II cyst measuring 7.7 cm with the septation with a small amount of calcification. A nonobstructing 0.9 cm lower pole calculus is present. A few other smaller calculi are seen. There is an extrarenal pelvis on the left which is unchanged. No hydronephrosis. No concerning left renal masses. Bladder: Unremarkable. Gastrointestinal Tract: The small and large bowel are unremarkable aside from colonic diverticula, most marked in the sigmoid without evidence of diverticulitis. No evidence of appendicitis. Abdominal Wall: Small bilateral inguinal hernias are seen containing only fat. Lymph Nodes: No lymphadenopathy. Vascular: Calcific atherosclerotic changes are present in the aorta and iliofemoral vessels. There is no evidence of an abdominal aortic aneurysm. The IVC appears unremarkable. PELVIC VISCERA: Unremarkable. OSSEUS STRUCTURES: Mild degenerative changes are noted throughout the spine. No bony destructive lesions are seen. CT/CT abdomen pelvis w IV con IMPRESSION: 1. No evidence of a traumatic injury in the chest, abdomen or pelvis. 2. Incidental note made of cardiomegaly, right double-J stent, nonobstructing left renal calculi, benign Bosniak class II left renal cyst and colonic diverticulosis. Fleischner guidelines were followed.
--- NOTE | ~2024-03-15 | CT_ITS ---
EXAMINATION: CT CERVICAL SPINE WITHOUT CONTRAST CLINICAL INFORMATION: Neck pain after falling COMPARISON: 624 TECHNIQUE: Thin section axial imaging with sagittal coronal reformats. This CT examination was performed using dose optimization techniques as appropriate, variously including the following: *Automated exposure control *Adjustment of mA and/or kV according to patient size (this includes techniques or standardized protocols for targeted exams where dose is matched to indication/reason for exam; i.e. extremities or head) *Use of iterative reconstruction technique DLP: 327 mGy-cm FINDINGS: There is advanced degenerative change noted at C6-C7 and C7-T1 and T1-T2 with endplate irregularity and prominent spurring but no fracture or destructive process, alignment abnormality or encroachment on the spinal canal. Prevertebral soft tissues are normal. There is extensive atherosclerotic calcification in the carotid siphons. Lung apices clear. Diffuse prominence to the thyroid incidentally noted. No change. CT/CT cervical spine wo IV con IMPRESSION: Chronic changes observed. No fracture. Fleischner guidelines were followed.
--- NOTE | ~2024-03-15 | CT_ITS ---
EXAMINATION: CT HEAD WITHOUT CONTRAST CLINICAL INFORMATION: Fall. Head strike COMPARISON: 12/15/2023 TECHNIQUE: Contiguous axial imaging was performed from the skull base to vertex without intravenous administration of contrast. This CT examination was performed using dose optimization techniques as appropriate, variously including the following: *Automated exposure control *Adjustment of mA and/or kV according to patient size (this includes techniques or standardized protocols for targeted exams where dose is matched to indication/reason for exam; i.e. extremities or head) *Use of iterative reconstruction technique DLP: 681 mGy-cm FINDINGS: There is prominence to the sulci and ventricles with extensive deep white matter gliosis. Slight prominence to the inner table of the frontal bone but no fracture. No intra or extra-axial fluid collection, hemorrhage, mass, or mass effect. There is calcification in the right and left basal ganglia. CT/CT head/brain wo IV con IMPRESSION: Extensive chronic change but no acute intracranial pathology. No change.
--- NOTE | ~2024-03-15 | XR_ITS ---
EXAMINATION: XR SHOULDER, LEFT XR WRIST, LEFT CLINICAL INFORMATION: Hand and wrist pain with left shoulder pain COMPARISON: Chest radiograph 11/04/2023 TECHNIQUE: Two views of the left shoulder. 5 views left wrist and hand FINDINGS: Some mild degenerative changes are present in the shoulder without evidence of fractures, dislocations or rotator cuff calcification. There is generalized osteopenia. Mild degenerative changes are present at the interphalangeal joints. Mild irregularity at the base of the proximal phalanx of the second digit on its radial aspect probably secondary to old trauma or degenerative change. No chondrocalcinosis. No fractures are seen. XR/XR hand wrist LT IMPRESSION: Mild degenerative changes in the left shoulder and hand. No acute finding.
--- NOTE | 2024-03-15 07:56 | ECG_ITS ---
Test Reason : CHEST PAIN Blood Pressure : / mmHG Vent. Rate : 070 BPM Atrial Rate : 000 BPM P-R Int : 000 ms QRS Dur : 090 ms QT Int : 398 ms P-R-T Axes : 000 004 105 degrees QTc Int : 429 ms Atrial fibrillation with premature ventricular or aberrantly conducted complexes Nonspecific T wave abnormality Abnormal ECG When compared with ECG of 15-DEC-2023 14:56, No significant change was found Referred By: Flor Friend Electronically Signed By:Colby Cadena
[2024-03-15 07:58] VITALS: BP 164/55; PULSE 82; O2SAT 97
[2024-03-15 08:00] VITALS: BP 166/72; PULSE 77; RESP 12; TEMP 36.6; O2SAT 98; BMI 32.9
--- NOTE | 2024-03-15 08:16 | ED_ITS ---
HPI - Fall General Chief Complaint: Fall Stated Complaint: CHEST PAIN L SHOULDER PAIN Time Seen by Provider: 03/15/24 07:56 Source: patient and EMS Mode of arrival: EMS Limitations: other (poor historian ) History of Present Illness HPI Narrative: 79 year old female hx of afib, dm, htn, hld, gerd, nstemi, gout, chf presents w/ fall that occured yesterday now complaining of pain all over but mostly to chest, left shoulder and left wrist. No headstrike or LOC per patient. On asa and plavix. She states shes not sure how she fell but she was walking to get a coffee and fell forward. Unclear if preceding sx to fall. Unclear how long she was on the ground for. Poor historian. At this time just complaining of pain all over worse in the previous stated regions. Denies cp, sob, headache, vision changes, dizziness, nausea, vomiting, abd pain. Related Data Home Medications ?Medication ?Instructions ?Recorded ?Confirmed albuterol sulfate 2.5 mg/3 mL 1 amp inhalation QID PRN Wheezing 09/06/22 10/16/23 (0.083 %) solution for nebulization blood sugar diagnostic (MyLikesTouch 09/06/22 07/28/23 Verio test strips) blood-glucose meter (OneTouch 09/06/22 07/28/23 Verio Flex Meter) fluticasone 250 mcg-salmeterol 50 1 puff inhalation BID 09/06/22 10/16/23 mcg/dose blistr powdr for inhalation (Advair Diskus) lancets 33 gauge (OneTouch Delica 09/06/22 07/28/23 Plus Lancet) albuterol sulfate 90 mcg/actuation 2 puff inhalation Q4-6H PRN 10/23/22 10/16/23 aerosol inhaler (Ventolin HFA) Wheezing atorvastatin 80 mg tablet 80 mg PO DAILY 10/23/22 10/16/23 metformin 850 mg tablet 850 mg PO BIDWM 10/23/22 10/16/23 ferrous gluconate 324 mg (37.5 mg 324 mg PO Q2D 04/09/23 10/16/23 iron) tablet tramadol 50 mg tablet 50 mg PO Q8H PRN Pain 04/09/23 10/16/23 clopidogrel 75 mg tablet 75 mg PO DAILY 04/27/23 10/16/23 metoprolol succinate 50 mg 50 mg PO DAILY 04/27/23 10/16/23 tablet,extended release 24 hr (Toprol XL) acetaminophen 325 mg tablet 650 mg PO Q6H PRN mild pain 05/25/23 10/16/23 docusate sodium 100 mg capsule 100 mg PO BID 05/25/23 10/16/23 lidocaine 5 % topical patch 1 patch topical DAILY PRN Pain 05/25/23 10/16/23 (Scale Score 1-3) polyethylene glycol 3350 17 gram 17 g PO DAILY 05/25/23 10/16/23 oral powder packet sennosides 8.6 mg tablet (senna) 1 tab PO BID 05/25/23 10/16/23 simethicone 125 mg capsule (Gas 125 mg PO QID PRN Indigestion 05/25/23 10/16/23 Relief Extra Strength) clotrimazole 1 % topical cream 1 appl topical BID 07/28/23 10/16/23 duloxetine 30 mg capsule,delayed 30 mg PO QAM 07/28/23 10/16/23 release Previous Rx's ?Medication ?Instructions ?Recorded apixaban 5 mg tablet (Eliquis) 5 mg PO BID #60 tabs 12/27/22 methylcellulose (laxative) 500 mg 500 mg PO DAILY #90 tabs 07/28/23 tablet (Citrucel) famotidine 20 mg tablet 20 mg PO BID #180 tabs 08/20/23 enoxaparin 80 mg/0.8 mL 80 mg (0.8 mL) subcut .COMPLEX 09/29/23 subcutaneous syringe (Lovenox) Lovenox bridge 2 days #3 ea azithromycin 250 mg tablet See Rx Instructions PO .COMPLEX #6 10/09/23 tabs cephalexin 500 mg capsule 500 mg PO BID 5 days #10 caps 11/10/23 mirabegron 50 mg tablet,extended 50 mg PO DAILY #30 tabs 12/22/23 release 24 hr (Myrbetriq) furosemide 40 mg tablet 40 mg PO BID #90 tabs 01/11/24 acetaminophen 325 mg capsule 650 mg (2 x 325 mg) PO Q4H PRN 03/15/24 (Tylenol) pain #30 caps lidocaine 5 % topical patch 1 patch topical DAILY PRN pain #15 03/15/24 ea Allergies Allergy/AdvReac Type Severity Reaction Status Date / Time montelukast [Singulair] Allergy Unknown itching/marysol Verified 03/15/24 08:05 h Review of Systems 2 Review of Systems: Yes all other systems are reviewed and are negative [facility] Past Medical History Attestation statement: The following information was validated with the patient. Source: old records reviewed and nursing notes reviewed Medical History NSTEMI (non-ST elevated myocardial infarction) Anxiety Asymmetrical thyroid CHF (congestive heart failure) COVID-19 Renal cyst, acquired, left Obstruction, uropathy Thrombosed external hemorrhoid COPD (chronic obstructive pulmonary disease) Atrial fibrillation Gout Asthma Alcohol abuse Nephrolithiasis Knee arthropathy Osteoarthritis Diabetes Arthritis Hypertension Surgical History Hx of bilateral cataract extraction Hx of hysterectomy Hx of lithotripsy History of total right knee replacement History of esophagogastroduodenoscopy (EGD) Hx of cystoscopy Hx of colonoscopy History of total knee arthroplasty Social History Social History Household Members: Family Household Members Other:: DAUGHTER Housing: Apartment Housing Other:: low income housing Do you presently have visiting nurse or other home services: No (granddaughter is new business clerk) Unable to assess alcohol history related to: Unknown Alcohol intake: unknown Patient Tobacco Use Status: Never used Tobacco Smoked in Last 30 Days: No e-Cigarette/Vaping Use: Never Used Second Hand Smoke Exposure: No Use of substances other than those prescribed or required for medical reasons: No Advance Directives: Yes Advance Directives on File: Yes Advance Directives Date on File: 09/07/22 Do you have a plan to hurt others: No Plan service: No Current occupational status: disabled Physical Exam 2 Vital Signs: Vital Signs: Last Vital Signs Temp 98.1 F 03/15/24 14:24 Pulse 78 03/15/24 14:24 Resp 17 03/15/24 14:24 BP 163/75 H 03/15/24 14:24 Pulse Ox 98 03/15/24 14:24 O2 Del Method Room Air 03/15/24 14:24 BMI result Body Mass Index 32.9 vss Appearance: Alert.? Oriented X3.? No acute distress.? Head: Normocephalic, atraumatic, no step-offs or deformities Eyes: Pupils equal, round and reactive to light.? Neck: Normal inspection.? Neck supple.? CVS: Normal heart rate and rhythm.? Pulses normal.? Respiratory: No respiratory distress.? Breath sounds normal.? Abdomen: Soft and nontender.? Skin: Skin warm and dry.? Normal skin color.? Normal skin turgor.? Extremities: No lower extremity edema.? No calf ttp. 5/5 strength to bilateral upper and lower extremities Neuro: Oriented X 3.? No motor deficit.? No sensory deficit. CN 2-12 intact Course Reevaluation(s) Reevaluation #1: CBC with a baseline normocytic anemia. Chemistry no acute findings requiring intervention. Chronically elevated BUN and creatinine. Total CPK 182 tolerating p.o. fluids, no muscle aches or pains. I do not suspect acute rhabdo. Troponin 8.7. Repeat pending. EKG nonischemic unlikely ACS. BNP 312 which appears to be around patient's baseline. CT head extensive chronic changes but no acute intracranial pathology. CT cervical spine chronic changes no acute fractures. CT chest /abdomen with no evidence of traumatic injury to the chest, abdomen or pelvis incidental note of cardiomegaly right double-J stent nonobstructing left renal calculi benign Bosniak class 2 left renal cyst and colonic diverticulosis. C collar cleared Coags unremarkable. UA, second trop pending. Orthostats also pending Time: 12:15 Reevaluation #2: Urine pending will call if + and send atbx to pharmacy. Family at the bedside and feels ok with this. Time: 16:08 Reevaluation #3: Educated patient on diagnosis and treatment plan, answered all question, patient verbalizes understanding. At this time patient will be discharged home, advised to return with new or worsening symptoms. Educated on worrisome signs and symptoms and when to return. At this time I feel comfortable discharge home. Time: 16:09 Medications Administered Discontinued Medications Generic Name Dose Route Start Last Admin Trade Name Freq PRN Reason Stop Dose Admin Acetaminophen 650 mg 03/15/24 12:16 03/15/24 14:29 Acetaminophen 325 Mg Tablet PO 03/15/24 12:17 650 mg ONCE ONE Administration Iohexol 85 ml 03/15/24 09:19 03/15/24 09:19 Iohexol 350 Mg/Ml 100 Ml Infus..Btl IV 03/15/24 09:20 85 ml ONCE ONE Administration Lidocaine 1 patch 03/15/24 12:16 03/15/24 14:32 Lidocaine 4 % Patch Adh..Patch TRANSDERMA 03/15/24 12:17 1 patch ONCE ONE Administration Protocol Medical Decision Making Medical Decision Making [facility] Narrative: 823 79 year old female presents w/ fall ( unclear how or why she fell) reports pain to left shoulder, left wrist, and chest s/p fall. On Plaxix and asa PE - +TTP to anterior chest wall and abdomen throughout. Painful ROM to left wrist and shoulder no evident deformities b/l. Normal sensation distally b/l. Cap refil < 2 seconds b/l UE. No wrist drop. Global weakness. NIHSS-0 Will rule out traumatic injury to head, neck, chest, abdomen pelvis. Will also rule out fracture dislocation of left shoulder and wrist. Unlikely intracranial hemorrhage, stroke, posterior stroke. Unlikely traumatic dislocation, subluxation of cervical spine. Will rule out ACS. Patients AFib chronic. Unlikely dissection, PE. Plan labs, imaging. Differential Diagnosis Differential Diagnoses: The differential diagnosis associated with the presentation includes Will rule out traumatic injury to head, neck, chest, abdomen pelvis. Will also rule out fracture dislocation of left shoulder and wrist. Unlikely intracranial hemorrhage, stroke, posterior stroke. Unlikely traumatic dislocation, subluxation of cervical spine. Will rule out ACS. Patients AFib chronic. Unlikely dissection, PE. Admission/Observation Consideration of admission/observation: Escalation of care including admission/observation considered Possible Lab Data [facility] Lab Attestation statement: I reviewed the patient's lab results. 03/15/24 08:28 03/15/24 08:28 Labs: Lab Results 03/15/24 03/15/24 Range/Units 08:28 13:20 WBC 7.6 (4.8-10.8) X10*3/uL RBC 4.11 L (4.20-5.50) X10*6/uL Hgb 11.4 L (12.0-16.0) g/dl Hct 34.7 L (37.0-47.0) % MCV 84.4 (80.0-98.0) fL MCH 27.7 (27.0-33.0) pg MCHC 32.9 (31.0-35.0) g/dl RDW 13.8 (11.0-16.0) % Plt Count 242 (160-400) X10*3/uL MPV 10.5 (9.4-12.3) fL Immature Gran % (Auto) 0.7 H (0.0-0.4) % Neut % (Auto) 77.9 H (45-73) % Lymph % (Auto) 10.8 L (20-40) % Fannin % (Auto) 7.5 (2-11) % Eos % (Auto) 2.2 (0-4) % Baso % (Auto) 0.9 (0-2) % Lymph # (Auto) 0.8 L (1.2-4.9) X10*3/uL Fannin # (Auto) 0.6 (0.1-1.2) X10*3/uL Eos # (Auto) 0.2 (0.0-0.4) X10*3/uL Baso # (Auto) 0.1 (0.0-0.2) X10*3/uL Abs Immat Gran (auto) 0.05 H (0.00-0.03) X10*3/uL Absolute Neuts (auto) 5.9 (2.0-8.3) x10*3/uL Absolute Nucleated RBC 0.000 (0.0-0.012) X10*3/uL Nucleated RBC % (auto) 0.0 (0.0-0.2) /100WBC PT 13.2 (11.1-13.3) SEC INR 1.1 (0.9-1.1) Sodium 140 (135-145) mmol/L Potassium 4.6 (3.3-5.1) mmol/L Chloride 101 (96-108) mmol/L Carbon Dioxide 26 (22-29) mmol/L Anion Gap 18 (12-20) BUN 33 H (9-16) mg/dL Creatinine 1.34 (0.5-1.4) mg/dL Estim Creat Clear Calc 33.2 Estimated GFR 38 Random Glucose 166 H (60-115) mg/dL Calcium 10.1 (8.4-10.2) mg/dL Magnesium 2.2 (1.6-2.6) mg/dL Total Bilirubin 0.7 (0.0-1.0) mg/dL AST 27 (5-31) U/L ALT 17 (0-31) U/L Alkaline Phosphatase 95 (39-117) U/L Total Creatine Kinase 182 H (26-140) U/L Troponin I High Sens 8.7 9.1 (<3.5-17.0) ng/L B-Natriuretic Peptide 312 H (<100) pg/mL Total Protein 7.4 (6.5-8.0) g/dL Albumin 4.0 (3.5-5.0) g/dL Independent Interpretation I performed an independent interpretation of an: EKG (Vent. Rate : 070 BPM Atrial Rate : 000 BPM P-R Int : 000 ms QRS Dur : 090 ms QT Int : 398 ms P-R-T Axes : 000 004 105 degrees QTc Int : 429 ms Atrial fibrillation with premature ventricular or aberrantly conducted complexes Nonspecific T wave abnormality Abnormal ECG W), Plain X-Ray (XR/XR shoulder LT min 2V IMPRESSION: Mild degenerative changes in the left shoulder and hand. No acute finding. ) and CT Scan (CT/CT head/brain wo IV con IMPRESSION: Extensive chronic change but no acute intracranial pathology. No change.CT/CT cervical spine wo IV con IMPRESSION: Chronic changes observed. No fracture. ) Interpretation: CT/CT abdomen pelvis w IV con IMPRESSION: 1. No evidence of a traumatic injury in the chest, abdomen or pelvis. 2. Incidental note made of cardiomegaly, right double-J stent, nonobstructing left renal calculi, benign Bosniak class II left renal cyst and colonic diverticulosis. Fleischner guidelines were followed. Radiology Impression Discussion of test interpretation with radiology: I have reviewed the radiologist's reading. External Record Review External record reviewed: Inpatient record, Office record, Outpatient record, Prior outpatient labs, Prior outpatient radiology, Primary care record and Outside ED record Chronic Conditions Patient?s care impacted by: Diabetes, Hypertension and Other (DLS, afib, nstemi ) Critical Care Time Critical Care Time Critical Care Time: No Discharge Plan Discharge Clinical Impression: Fall, Chest wall pain, Acute pain of left shoulder, Acute pain of left wrist Patient Disposition: Home, Self-Care Instructions: Wrist Injury (ED), Fall Prevention (ED), Shoulder Pain (ED), Chest Wall Pain (ED) Additional Instructions: Take your medications as prescribed. If you were prescribed antibiotics today, it is important that you take your medication to their entirety, do not skip any doses, do not finish them early. Follow-up with your primary care provider this week. Return to the emergency department with new or worsening symptoms. Such as fevers, chills, chest pain, shortness of breath, nausea, vomiting, dizziness, headache, vision changes, lethargy In case of emergency call 911 CT/CT head/brain wo IV con IMPRESSION: Extensive chronic change but no acute intracranial pathology. No change. CT/CT cervical spine wo IV con IMPRESSION: Chronic changes observed. No fracture. Fleischner guidelines were followed. CT/CT chest & abd and pelvis w IV con IMPRESSION: 1. No evidence of a traumatic injury in the chest, abdomen or pelvis. 2. Incidental note made of cardiomegaly, right double-J stent, nonobstructing left renal calculi, benign Bosniak class II left renal cyst and colonic diverticulosis. Fleischner guidelines were followed. XR/XR hand wrist LT IMPRESSION: Mild degenerative changes in the left shoulder and hand. No acute finding. XR/XR shoulder LT min 2V IMPRESSION: Mild degenerative changes in the left shoulder and hand. No acute finding. Prescriptions: New lidocaine 5 % adhesive patch,medicated 1 patch topical DAILY PRN (Reason: pain) Qty: 15 0RF Rx Instructions: leave on most painful area for up to 12 hrs acetaminophen [Tylenol] 325 mg capsule 650 mg PO Q4H PRN (Reason: pain) Qty: 30 0RF No Action Citrucel 500 mg tablet 500 mg PO DAILY Qty: 90 2RF Rx Instructions: take it with full glass of water famotidine 20 mg tablet 20 mg PO BID Qty: 180 2RF enoxaparin [Lovenox] 80 mg/0.8 mL syringe 80 mg subcut .COMPLEX 2 Days Qty: 3 0RF Rx Instructions: 80 mg subcutaneously 12/10 am, 12/10 pm and 12/11 am; Myrbetriq 50 mg tablet extended release 24 hr 50 mg PO DAILY Qty: 30 5RF furosemide 40 mg tablet 40 mg PO BID Qty: 90 3RF fluticasone propion-salmeterol [Advair Diskus] 250-50 mcg/dose blister with device 1 puff INHALATION BID albuterol sulfate 2.5 mg /3 mL (0.083 %) solution for nebulization 1 amp inhalation QID PRN (Reason: Wheezing) (DME) blood-glucose meter [[employer] Verio Flex meter] [facility] MISCELLANEOUS DIRECTED (DME) OneTouch Verio test strips Strip MISCELLANEOUS BID (DME) lancets [MyLikesTouch Delica Plus Lancet] 33 gauge [facility] [place] MISCELLANEOUS BID Eliquis 5 mg tablet 5 mg PO BID Qty: 60 0RF Hold Instructions: Resume on 06/05/23. On hold due to hematuria from obstructive uropathy and recent stent placement tramadol 50 mg Tablet 50 mg PO Q8H PRN (Reason: Pain) ferrous gluconate 324 mg (37.5 mg iron) Tablet 324 mg PO Q2D acetaminophen 325 mg tablet 650 mg PO Q6H PRN (Reason: mild pain) polyethylene glycol 3350 17 gram Powder In Packet 17 g PO DAILY lidocaine 5 % Adhesive Patch,Medicated 1 patch TOPICAL DAILY PRN (Reason: Pain (Scale Score 1-3)) Rx Instructions: leave on most painful area for up to 12 hrs docusate sodium 100 mg capsule 100 mg PO BID sennosides [senna] 8.6 mg tablet 1 tab PO BID simethicone [Gas Relief Extra Strength] 125 mg capsule 125 mg PO QID PRN (Reason: Indigestion) cephalexin 500 mg capsule 500 mg PO BID 5 Days Qty: 10 0RF metformin 850 mg tablet 850 mg PO BIDWM atorvastatin 80 mg tablet 80 mg PO DAILY albuterol sulfate [Ventolin HFA] 90 mcg/actuation HFA aerosol inhaler 2 puff inhalation Q4-6H PRN (Reason: Wheezing) clopidogrel 75 mg tablet 75 mg PO DAILY metoprolol succinate [Toprol XL] 50 mg tablet extended release 24 hr 50 mg PO DAILY clotrimazole 1 % cream 1 appl topical BID duloxetine 30 mg capsule,delayed release(DR/EC) 30 mg PO QAM azithromycin 250 mg tablet See Rx Instructions PO .COMPLEX Qty: 6 0RF Rx Instructions: For 250 mg dose pack: take 500 mg today (day 1), then 250 mg for 4 days (days 2-5) PO Referrals: Physician,Unknown J [Primary Care Provider] - 2 days Stand Alone Forms: Work/School Release Print Language: Uzbek
[2024-03-15 08:32] LABS: MANUAL DIFF FLAG NO
[2024-03-15 08:36] LABS: Basophils Absolute Auto 0.1 X10*3/uL (0.0-0.2); Basophils Percent Auto 0.9 % (0-2); Eosinophils Absolute Auto 0.2 X10*3/uL (0.0-0.4); Eosinophils Percent Auto 2.2 % (0-4); Hematocrit 34.7 % (37.0-47.0); Hemoglobin 11.4 g/dl (12.0-16.0); Imm Gran Abs Auto 0.05 X10*3/uL (0.00-0.03); Imm Gran Pct Auto 0.7 % (0.0-0.4); Lymphocytes Absolute Auto 0.8 X10*3/uL (1.2-4.9); Lymphocytes Percent Auto 10.8 % (20-40); Mean Corpuscular HGB Conc 32.9 g/dl (31.0-35.0); Mean Corpuscular Hemoglobin 27.7 pg (27.0-33.0); Mean Corpuscular Volume 84.4 fL (80.0-98.0); Mean Platelet Volume 10.5 fL (9.4-12.3); Monocytes Absolute Auto 0.6 X10*3/uL (0.1-1.2); Monocytes Percent Auto 7.5 % (2-11); Neutrophils Absolute Auto 5.9 x10*3/uL (2.0-8.3); Neutrophils Percent Auto 77.9 % (45-73); Platelet Count 242 X10*3/uL (160-400); Red Blood Count 4.11 X10*6/uL (4.20-5.50); Red Cell Distribution Width 13.8 % (11.0-16.0); White Blood Count 7.6 X10*3/uL (4.8-10.8)
[2024-03-15 08:38] LABS: INTERNATIONAL NORM RATIO 1.1 (0.9-1.1); Prothrombin Time 13.2 SEC (11.1-13.3)
[2024-03-15 08:50] LABS: Alanine Aminotransferase 17 U/L (0-31); Alkaline Phosphatase 95 U/L (39-117); Anion Gap 18 (12-20); Aspartate Amino Transferase 27 U/L (5-31); Bilirubin Total 0.7 mg/dL (0.0-1.0); Blood Urea Nitrogen 33 mg/dL (9-16); Calcium 10.1 mg/dL (8.4-10.2); Carbon Dioxide 26 mmol/L (22-29); Chloride 101 mmol/L (96-108); Creatinine Clr Calc Pharmacy 33.2; Estimated Glomerular Filt Rate 38; Glucose Random 166 mg/dL (60-115); Magnesium 2.2 mg/dL (1.6-2.6); Potassium 4.6 mmol/L (3.3-5.1); Sodium 140 mmol/L (135-145); Total Protein 7.4 g/dL (6.5-8.0)
[2024-03-15 08:52] LABS: B Type Natriuretic Peptide 312 pg/mL (<100); Troponin-I High Sensitivity 8.7 ng/L (<3.5-17.0)
[2024-03-15] MEDS: iohexoL 350 MG/ML 100 ML INFUS..BTL 85 ML IV (09:19)
--- NOTE | 2024-03-15 09:22 | PC.NURSE ---
remains in c-collar from EMS. labs obtained and sent, IV from EMS. afib on the monitor. awaiting results from ct scan and xray, call cantu within reach
[2024-03-15 13:51] LABS: Troponin-I High Sensitivity 9.1 ng/L (<3.5-17.0)
[2024-03-15 14:24] VITALS: BP 163/75; PULSE 72; PULSE 78; RESP 15; RESP 17; TEMP 36.7; O2SAT 98
[2024-03-15] MEDS: Acetaminophen 325 MG TABLET 650 MG PO (14:29)
[2024-03-15] MEDS: Lidocaine 4 % Patch ADH..PATCH 1 PATCH TRANSDERMA (14:32)
[2024-03-15 16:23] LABS: Appearance Urine Clear; Color Urine Yellow; Glucose Urine UA Negative (Negative); Leukocyte Esterase Urine Trace (Negative); Nitrite Urine Negative (Negative); PH 8.5 (5.0-9.0); Specific Gravity - Urine >= 1.030 (1.005-1.025); UMIC TRIGGER UACC YES; Urine Blood Large (3+) (Negative); Urine Ketones Negative (Negative); Urine Protein 30 (1+) mg/dL (Neg-Trace)
[2024-03-15 16:44] VITALS: BP 131/92; PULSE 77; RESP 20; TEMP 36.8; O2SAT 97
[2024-03-15 16:45] LABS: Bacteria Urine None Seen (None Seen); Hyaline Casts Urine 0-2 /LPF (0-2); RBC Urine >20 /HPF (0-2); Squamous Epithelial Cell Urine 0-2 /HPF (0-2); WBC Urine 0-5 /HPF (0-5)
[2024-03-15 17:36] VITALS: BP 131/92; PULSE 77; RESP 20; TEMP 36.8; O2SAT 97
== END 2024-03-15 17:37 | disposition home or self-care (01) ==
PROVIDERS: Physician Assistant; Emergency Provider Emergency Medicine Emergency Medical Services
DX: R07.89 Other chest pain (principal); M25.512 Pain in left shoulder; M25.532 Pain in left wrist; Z91.81 History of falling; D64.9 Anemia, unspecified; R06.09 Other forms of dyspnea; I48.19 Other persistent atrial fibrillation; E11.22 Type 2 diabetes mellitus with diabetic chronic kidney disease; I13.0 Hypertensive heart and chronic kidney disease with heart failure and stage 1 through stage 4 chronic kidney disease, or unspecified chronic kidney disease; N18.9 Chronic kidney disease, unspecified; I50.9 Heart failure, unspecified
CPT/HCPCS: 36415; 70450; 71260; 72125; 73030; 73110; 73130; 74177; 80053; 81001; 82550; 83735; 83880; 84484; 85025; 85610; 93005; 99284; 99285; Q9967

== ENCOUNTER → 2024-03-15 07:56 | Outpatient (BNV) | payer OTHER, SELFPAY | PROVIDERS: Emergency Provider Emergency Medicine Emergency Medical Services; Visit Provider Internal Medicine Cardiovascular Disease | DX: R07.9 Chest pain, unspecified (principal) | CPT/HCPCS: 93010 ==

== ENCOUNTER 2024-03-25 17:58 | Outpatient (REF) | payer OTHER, SELFPAY | END 2024-03-25 17:59 | disposition home or self-care (01) | LOC: HO.HHCLNP 17:58 | PROVIDERS: Visit Provider Emergency Medicine | DX: R10.9 Unspecified abdominal pain (principal); R31.9 Hematuria, unspecified | CPT/HCPCS: 87086 ==

== ENCOUNTER 2024-04-02 12:22 | Emergency (ER) | payer OTHER, SELFPAY ==
--- NOTE | ~2024-04-02 | CT_ITS ---
EXAMINATION: CT HEAD WITHOUT CONTRAST CLINICAL INFORMATION: Fall anticoagulation COMPARISON: CT head from 03/15/2024 TECHNIQUE: Contiguous axial imaging was performed from the skull base to vertex without intravenous administration of contrast. This CT examination was performed using dose optimization techniques as appropriate, variously including the following: *Automated exposure control *Adjustment of mA and/or kV according to patient size (this includes techniques or standardized protocols for targeted exams where dose is matched to indication/reason for exam; i.e. extremities or head) *Use of iterative reconstruction technique DLP: 937 mGy-cm FINDINGS: There is no evidence of acute intracranial hemorrhage or territorial infarction. Physiological mineral deposition of the bilateral basal ganglia. Chronic white matter small vessel ischemic changes. Cerebral atrophy with commensurate ventricular changes. No abnormal mass effect or midline shift is seen. Gonzalez to white matter differentiation is well preserved. No extra-axial fluid collections are identified. The ventricles are normal in size. There is no abnormal attenuation within the brain parenchyma. The osseous structures and soft tissues are normal. Mucoperiosteal thickening of the left maxillary sinus. The mastoid air cells and visualized portions of the paranasal sinuses are well aerated. CT/CT cervical spine wo IV con IMPRESSION: 1. No acute intracranial pathology. 2. Chronic white matter small vessel ischemic changes. EXAMINATION: Noncontrast CT scan of the cervical spine. INDICATION: Fall COMPARISON: CT cervical spine from 03/15/2024 TECHNIQUE: Helical, multidetector axial images were obtained from the occiput to the upper thorax. Coronal and sagittal reformats of the cervical spine were provided for interpretation. DLP: 315.89 mGy-cm FINDINGS: No acute fractures or dislocations of the cervical spine are seen. Multilevel degenerative changes. Anatomic alignment and positioning of the vertebral bodies and posterior elements is noted. The atlantoaxial joint and craniovertebral articulations are normal without evidence of subluxation. There is no prevertebral soft tissue swelling. Calcification left thyroid lobe. Prominence of the right thyroid lobe. Visualized portions of the long are unremarkable. IMPRESSION: 1. No acute visible fracture or dislocation. 2. Multilevel degenerative changes.
--- NOTE | ~2024-04-02 | XR_ITS ---
EXAMINATION: XR BILATERAL HIPS WITH AP PELVIS CLINICAL INFORMATION: Pain in both hips. Status post fall. COMPARISON: X-ray the pelvis February 2023 TECHNIQUE: 2 views of each hip. Single AP view of the pelvis. FINDINGS: Right hip: Hip joint surrounding bone and soft tissues are normal. No fracture Left hip: The hip joint surrounding bone and soft tissues are normal. No fracture Pelvis: Hips as above. Degenerative changes of the symphysis pubis. Sacroiliac joints unremarkable. Remaining pelvic bones are unremarkable. Incidental note made of distal portion of a right ureteral stent. XR/XR hip BI w PEL1V IMPRESSION: RIGHT HIP: Normal. LEFT HIP: Normal. Pelvis: No acute abnormality noted. Degenerative changes of the symphysis pubis
--- NOTE | ~2024-04-02 | CT_ITS ---
EXAMINATION: CT ABDOMEN AND PELVIS WITHOUT CONTRAST CLINICAL INFORMATION: Rule out stone COMPARISON: 03/15/2024 TECHNIQUE: Multidetector volumetric imaging was performed from the superior aspect of the liver through the pubic symphysis. Sagittal and coronal reformatted images were obtained on the technologist's workstation. This CT examination was performed using dose optimization techniques as appropriate, variously including the following: *Automated exposure control *Adjustment of mA and/or kV according to patient size (this includes techniques or standardized protocols for targeted exams where dose is matched to indication/reason for exam; i.e. extremities or head) *Use of iterative reconstruction technique DLP: 625 mGy-cm FINDINGS: LUNG BASES: Subsegmental bibasilar atelectasis. LIVER, GALLBLADDER, AND BILIARY TREE: The liver is normal in size, shape, and attenuation. No focal hepatic lesion or biliary ductal dilatation is identified on this noncontrast exam. The gallbladder is unremarkable. PANCREAS: Grossly unremarkable. SPLEEN: Unremarkable. ADRENAL GLANDS: Unremarkable. KIDNEYS AND URETERS: A right ureteral stent is present with the proximal portion in the region of the ureteropelvic junction in the distal portion in the bladder; no associated hydronephrosis. Redemonstrated large left renal cyst with thin calcified septation for which no further follow-up is recommended. Left extrarenal pelvis appears dilated mildly more dilated than on 03/15/2024 without obstructing calculus. There is redemonstration of a few scattered left renal calculi measuring up to 13 mm in length. BLADDER: Unremarkable. GASTROINTESTINAL TRACT: No evidence of bowel obstruction. There is colonic diverticulosis without diverticulitis. The appendix is unremarkable. No free fluid or free air is seen. ABDOMINAL WALL: Bilateral fat-containing inguinal hernias. LYMPH NODES: Normal. VASCULAR: Scattered atherosclerotic calcifications. PELVIC VISCERA: Patient is status post hysterectomy. OSSEOUS STRUCTURES: Multilevel degenerative changes in the spine. CT/CT abdomen pelvis wo IV con IMPRESSION: 1. Left extrarenal pelvis appears more dilated than on 03/15/2024 without obstructing calculus. 2. Right ureteral stent with the proximal portion in the region of the ureteropelvic junction and the distal portion in the bladder. No associated hydronephrosis. 3. Redemonstrated left renal calculi.
--- NOTE | 2024-04-02 12:57 | ED_ITS ---
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 She admits to having right hip/ low back pain prior to fall however pain was exacerbated by the fall. Now radiating to the left hip. No radiation down LEs. She reports taking Tramadol at home without relief, last dose a few days ago. Admits to head strike without LOC during initial fall 3 wks ago. She is on both plavis and eliquis. Denies fevers, chills, confusion, headache, dizziness, chest pain, sob, wheezing, dysuria, diarrhea, N/V. medical records assistant utilized throughout visit to communicate with patient. Related Data Home Medications ?Medication ?Instructions ?Recorded ?Confirmed albuterol sulfate 2.5 mg/3 mL 1 amp inhalation Q6H PRN Wheezing 09/06/22 04/06/24 (0.083 %) solution for nebulization blood sugar diagnostic (Mobiscopeuch 09/06/22 07/28/23 Verio test strips) blood-glucose meter (OneTouch 09/06/22 07/28/23 Verio Flex Meter) fluticasone 250 mcg-salmeterol 50 1 puff inhalation BID PRN 09/06/22 04/06/24 mcg/dose blistr powdr for shortness or breath or wheezing inhalation (Advair Diskus) lancets 33 gauge (OneTouch Delica 09/06/22 07/28/23 Plus Lancet) albuterol sulfate 90 mcg/actuation 2 puff inhalation Q4-6H PRN 10/23/22 04/06/24 aerosol inhaler (Ventolin HFA) Wheezing atorvastatin 80 mg tablet 80 mg PO DAILY 10/23/22 04/06/24 metformin 850 mg tablet 850 mg PO DAILY 10/23/22 04/06/24 ferrous gluconate 324 mg (37.5 mg 324 mg PO QAM 04/09/23 04/06/24 iron) tablet clopidogrel 75 mg tablet 75 mg PO DAILY 04/27/23 04/06/24 metoprolol succinate 50 mg 50 mg PO DAILY 04/27/23 04/06/24 tablet,extended release 24 hr (Toprol XL) acetaminophen 325 mg tablet 325 mg PO Q6H PRN mild pain 05/25/23 04/06/24 docusate sodium 100 mg capsule 100 mg PO BID 05/25/23 04/06/24 sennosides 8.6 mg tablet (senna) 1 tab PO BID 05/25/23 04/06/24 duloxetine 30 mg capsule,delayed 30 mg PO DAILY 07/28/23 04/06/24 release cetirizine 10 mg tablet 10 mg PO DAILY PRN allergies 04/06/24 04/06/24 furosemide 40 mg tablet 40 mg PO DAILY 04/06/24 04/06/24 mirabegron 50 mg tablet,extended 50 mg PO DAILY 04/06/24 04/06/24 release 24 hr (Myrbetriq) pyridoxine (vitamin B6) 100 mg 100 mg PO DAILY 04/06/24 04/06/24 tablet simethicone 80 mg chewable tablet 80 mg PO QID PRN Indigestion 04/06/24 04/06/24 tramadol 50 mg tablet 50 mg PO Q6H PRN Pain 04/06/24 04/06/24 Previous Rx's ?Medication ?Instructions ?Recorded apixaban 5 mg tablet (Eliquis) 5 mg PO BID #60 tabs 12/27/22 famotidine 20 mg tablet 20 mg PO BID #180 tabs 08/20/23 lidocaine 5 % topical patch 1 patch topical DAILY PRN pain #15 03/15/24 ea amlodipine 5 mg tablet 5 mg PO DAILY #90 tabs 04/07/24 Allergies Allergy/AdvReac Type Severity Reaction Status Date / Time montelukast [Singulair] Allergy Unknown itching/marysol Verified 04/05/24 20:10 h Review of Systems 2 Review of Systems: Constitutional: No fever, chills, fatigue, night sweats, weight changes ENT/Mouth: No ear pain, hearing loss, nasal congestion, sinus pain, rhinorrhea, sore throat Eyes: No eye pain, swelling, redness, vision changes, discharge Cardio: No chest pain, palpitations, WALSH, orthopnea, peripheral edema Pulm: No SOB, cough, sputum, wheezing, dyspnea, hemoptysis GI: No nausea, vomiting, hematemesis, abdominal pain, diarrhea, constipation, hematochezia, melena, +constipation : No irregular bleeding, dysuria, frequency, urgency, hesitancy, hematuria, flank pain, urinary flow changes, urinary incontinence or retention MSK: No back pain, neck pain, joint pain, myalgias, +bilateral hip pain Skin: No lesions, rashes Neuro: No weakness, numbness, paresthesias, LOC, dizziness, headache Psych: No anxiety/panic, depression, SI/HI, AH/VH All other systems reviewed and are negative. [facility] Past Medical History Attestation statement: The following information was validated with the patient. Source: old records reviewed and nursing notes reviewed Medical History NSTEMI (non-ST elevated myocardial infarction) Anxiety Asymmetrical thyroid CHF (congestive heart failure) COVID-19 Renal cyst, acquired, left Obstruction, uropathy Thrombosed external hemorrhoid COPD (chronic obstructive pulmonary disease) Atrial fibrillation Gout Asthma Alcohol abuse Nephrolithiasis Knee arthropathy Osteoarthritis Diabetes Arthritis Hypertension Surgical History Hx of bilateral cataract extraction Hx of hysterectomy Hx of lithotripsy History of total right knee replacement History of esophagogastroduodenoscopy (EGD) Hx of cystoscopy Hx of colonoscopy History of total knee arthroplasty Social History Social History Household Members: None Household Members Other:: DAUGHTER Housing: Apartment Housing Other:: low income housing 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) Unable to assess alcohol history related to: Unknown Alcohol intake: unknown Patient Tobacco Use Status: Never used Tobacco e-Cigarette/Vaping Use: Never Used Second Hand Smoke Exposure: No Advance Directives Date on File: 09/07/22 service: No Current occupational status: disabled Physical Exam ED Vital Signs: Vital Signs - 24 hr 04/02/24 12:59 04/02/24 17:33 04/02/24 19:03 Temperature 98.7 F 98.4 F 98.7 F Pulse Rate 73 67 68 Respiratory Rate 18 18 17 Blood Pressure 162/53 H 177/84 H 194/93 H Pulse Oximetry 98 100 98 Oxygen Delivery Method Room Air Room Air Room Air BMI result Body Mass Index 34.0 Patient hypertensive, vitals otherwise WNL Const General: cooperative, healthy appearing, comfortable and no acute distress Orientation/consciousness: patient oriented x3 Limitations: no limitations HENMT Head: Yes normal to inspection, Yes No palpable skull fracture present, Yes normocephalic, Yes atraumatic, No Gonzalez's sign, No raccoon eyes and No periorbital ecchymosis Eyes General: appearance normal, both eyes and all related structures Conjunctivae: conjunctivae normal Sclerae: sclerae normal Pupils: Equal, round and reactive pupils present EOM: EOMs intact bilaterally Neck Other: No midline cervical spinous tenderness or step-off deformity. Neck: Yes normal visual inspection, Yes full ROM and Yes no lymphadenopathy Chest Chest palpation & inspection: normal inspection of the chest and normal palpation of entire chest wall Resp Effort & Inspection: normal respiratory effort and able to speak in complete sentences Auscultation: clear to auscultation bilaterally Cardio Rate: regular rate Rhythm: regular rhythm GI Other: + obese abdomen, nondistended. TTP over bilateral low abdomen though no CVAT. No rebound tenderness or guarding. Negative mesa. negative rovsing. normoactive bs x4. General: Yes no CVA tenderness Back/Spine/Pelvis Other: No midline spinous tenderness or step off deformity. No paraspinal muscle tenderness. Back: no CVA tenderness Skin General skin exam: no rashes or lesions noted Neuro Other: Strength 5/5 intact throughout.? No saddle anesthesia.? Sensation intact to light touch.? Neurovascular intact distally.? General: patient oriented x3 Cranial nerves: Yes Equal, round and reactive pupils present Extrem Other: + FROM intact to b/l hips. strength 5/5 intact throughout. ambulating w/ steady gait using walker. Course Course Course Narrative: This is an RME: Additional HPI, ROS, PE not included below will be deferred to primary provider. RME assessment and note performed by: Betina Antunez PA-C This is a [id number]-female, with a hx of hx of afib on eliquis and lovenox, dm, htn, hld, gerd, nstemi, gout, chf presenting to the ER, accompanied by daughter, with complaints of bilateral hip pain x 3 weeks, worsening several days ago after a mechanical fall which occurred on March 28. Daughter reports that she had a unwitnessed mechanical fall in the bathroom. The neighbor heard her screaming and called for help. Patient has had worsening bilateral hip pain since. Difficulty with ambulation secondary the pain. Plan: Labs, XR, CT head/neck, UA Reevaluation(s) Reevaluation #1: 1806-- CBC without leukocytosis or left shift. Chronic anemia likely secondary to chronic kidney disease. H and H stable at 10.9/34. Chemistry without acute electrolyte abnormality requiring intervention. BUN 32. Creatinine 120. Transaminitis with alkaline phosphatase 130. Total CK 177 > no concern for acute rhabdo. Urine is negative for infection however there is a large amount of blood and over 20 RBCs. I did discussed these findings with patient and her daughter who said she did notice that her urine looked slightly pink the other day however this has since resolved. Given history of obstructive uropathy and history of left stent placement, will order CT to rule out stone/obstruction. CT head does not demonstrate acute bleed or skull fracture. It does show chronic white matter small-vessel ischemic changes. CT cervical spine without visible fracture or dislocation. There are degenerative changes throughout. X-rays of bilateral hip with pelvis normal. No fracture noted. There are degenerative changes within this symphysis pubis. > patient requesting pain medication for discomfort. [facility] she takes [facility] at home. patient states she has not taken this in a few days. will give dose of tramadol in ED. pending CT scan results. 2148-- CT abdomen/pelvis unremarkable. Patient initially noted to be in afib on arrival, with EKG showing afib with pvc at a rate of 67 bpm. no acute ischemic changes or st elevations. I discussed these findings with patient who is denying headache, dizziness, chest pain, palpitations, SOB or dyspnea. she tells me I'm always in afib . her HR has ranged from 60-90 while in ED. reports taking her amlodipine and metoprolol as precribed and took both of these this morning prior to presentation. takes her Eliquis as prescribed. as patient is asymptomatic, i feel no further workup/ management is warranted. advised to follow up with her limnologist outpatient. Patient has remained stable throughout ED visit today. Discussed worrisome signs and symptoms and when to return to the ED. All questions answered at this time. Patient is agreeable with disposition and stable for discharge. Medications Administered Discontinued Medications Generic Name Dose Route Start Last Admin Trade Name Angelika PRN Reason Stop Dose Admin Docusate Sodium 100 mg 04/02/24 18:04 04/02/24 18:18 Docusate Sodium 100 Mg Capsule PO 04/02/24 18:05 100 mg ONCE ONE Administration Polyethylene Glycol 17 gm 04/02/24 18:04 04/02/24 18:18 Polyethylene Glycol 3350 17 Gm Powd.Pack PO 04/02/24 18:05 17 gm ONCE ONE Administration Tramadol HCl 50 mg 04/02/24 18:04 04/02/24 18:18 Tramadol Hcl 50 Mg Tablet PO 04/02/24 18:05 50 mg ONCE ONE Administration Medical Decision Making Medical Decision Making MDM Narrative: 79-year-old trinidadian speaking female with past medical history significant for HTN, CHF, NSTEMI, afib on plavix and eliquis, asthma, gout, anxiety, obstructive uropathy with left stent placement, COPD, OA, diabetes presents to the ED today accompanied by daughter for evaluation of bilateral hip pain x3 weeks s/p mechanical slip and fall in bathtub. Patient hypertensive to 177/84. Vitals otherwise WNL. She is nontoxic-appearing and in no acute distress. On exam, obese abdomen, nondistended. TTP over bilateral low abdomen though no CVAT. No rebound tenderness or guarding. Negative mesa. negative rovsing. normoactive bs x4. Full ROM intact to bilateral hips. ambulating with steady gait using walker. No midline spinous tenderness or step off deformity. No paraspinal muscle tenderness.Strength 5/5 intact throughout.? No saddle anesthesia.? Sensation intact to light touch. Neurovascular intact distally.? Differential diagnosis includes arthritis, fracture, dislocation, contusion, renal colic, UTI, nephrolithiasis, chronic back pain. Unlikely appendicitis, cholecystitis, obstructive uropathy. Labs, UA, CT head/C-spine, x-ray hip/pelvis ordered prior to my assumption of care. Plan for review. Will add on CT scan abdomen/pelvis to rule out stone. Pain medication and laxitive ordered for constipation. Differential Diagnosis Differential Diagnoses: The differential diagnosis associated with the presentation includes As above Admission/Observation Consideration of admission/observation: Escalation of care including admission/observation considered Admission considered on presentation Lab Data MDM Lab Attestation statement: I reviewed the patient's lab results. As above 04/02/24 13:54 04/02/24 13:54 Labs: Lab Results 04/02/24 04/02/24 Range/Units 13:54 14:59 WBC 5.0 (4.8-10.8) X10*3/uL RBC 3.82 L (4.20-5.50) X10*6/uL Hgb 10.9 L (12.0-16.0) g/dl Hct 34.0 L (37.0-47.0) % MCV 89.0 (80.0-98.0) fL MCH 28.5 (27.0-33.0) pg MCHC 32.1 (31.0-35.0) g/dl RDW 14.8 (11.0-16.0) % Plt Count 244 (160-400) X10*3/uL MPV 8.8 L (9.4-12.3) fL Immature Gran % (Auto) 0.4 (0.0-0.4) % Neut % (Auto) 66.1 (45-73) % Lymph % (Auto) 17.1 L (20-40) % [place] % (Auto) 10.0 (2-11) % Eos % (Auto) 5.4 H (0-4) % Baso % (Auto) 1.0 (0-2) % Lymph # (Auto) 0.9 L (1.2-4.9) X10*3/uL [place] # (Auto) 0.5 (0.1-1.2) X10*3/uL Eos # (Auto) 0.3 (0.0-0.4) X10*3/uL Baso # (Auto) 0.1 (0.0-0.2) X10*3/uL Abs Immat Gran (auto) 0.02 (0.00-0.03) X10*3/uL Absolute Neuts (auto) 3.3 (2.0-8.3) x10*3/uL Absolute Nucleated RBC 0.000 (0.0-0.012) X10*3/uL Nucleated RBC % (auto) 0.0 (0.0-0.2) /100WBC PT 14.2 H (11.1-13.3) SEC INR 1.2 H (0.9-1.1) APTT 33.4 (26.0-36.8) SEC Sodium 143 (135-145) mmol/L Potassium 4.3 (3.3-5.1) mmol/L Chloride 104 (96-108) mmol/L Carbon Dioxide 30 H (22-29) mmol/L Anion Gap 13 (12-20) BUN 32 H (9-16) mg/dL Creatinine 1.20 (0.5-1.4) mg/dL Estim Creat Clear Calc 37.6 Estimated GFR 43 Random Glucose 111 (60-115) mg/dL Calcium 9.9 (8.4-10.2) mg/dL Total Bilirubin 0.4 (0.0-1.0) mg/dL Direct Bilirubin 0.2 (0.0-0.5) mg/dL AST 25 (5-31) U/L ALT 20 (0-31) U/L Alkaline Phosphatase 130 H (39-117) U/L Total Creatine Kinase 177 H (26-140) U/L Troponin I High Sens 8.3 (<3.5-17.0) ng/L Total Protein 7.6 (6.5-8.0) g/dL Albumin 4.3 (3.5-5.0) g/dL Lipase 24 (8-78) U/L Urine Color Yellow Urine Appearance Clear Urine pH 7.0 (5.0-9.0) Ur Specific [place] 1.010 (1.005-1.025) Urine Protein Negative (Neg-Trace) mg/dL Urine Glucose (UA) Negative (Negative) mg/dL Urine Ketones Negative (Negative) mg/dL Urine Blood Large (3+) H (Negative) Urine Nitrite Negative (Negative) Ur Leukocyte Esterase Trace H (Negative) Urine RBC >20 H (0-2) /HPF Urine WBC 0-5 (0-5) /HPF Ur Squamous Epith Cells 0-2 (0-2) /HPF Urine Bacteria None Seen (None Seen) Hyaline Casts 0-2 (0-2) /LPF Independent Interpretation I performed an independent interpretation of an: EKG, Plain X-Ray and CT Scan Interpretation: EKG showing afib with pvc at a rate of 67 bpm. no acute ischemic changes or st elevations. CT head/brain without bleed or skull fracture, agree with radiologist's interpretation. CT cervical spine without fracture or subluxation, agree with radiologist's interpretation. X-ray bilateral hips with pelvis without acute fracture, agree with radiologist's interpretation. CT abdomen/pelvis without obstructive renal stone, agree with radiologists interpretation. Radiology Impression Discussion of test interpretation with radiology: I have reviewed the radiologist's reading. Radiologist Impression: EXAMINATION: CT HEAD WITHOUT CONTRAST CLINICAL INFORMATION: Fall anticoagulation COMPARISON: CT head from 03/15/2024 TECHNIQUE: Contiguous axial imaging was performed from the skull base to vertex without intravenous administration of contrast. This CT examination was performed using dose optimization techniques as appropriate, variously including the following: *Automated exposure control *Adjustment of mA and/or kV according to patient size (this includes techniques or standardized protocols for targeted exams where dose is matched to indication/reason for exam; i.e. extremities or head) *Use of iterative reconstruction technique DLP: 937 mGy-cm FINDINGS: There is no evidence of acute intracranial hemorrhage or territorial infarction. Physiological mineral deposition of the bilateral basal ganglia. Chronic white matter small vessel ischemic changes. Cerebral atrophy with commensurate ventricular changes. No abnormal mass effect or midline shift is seen. Gonzalez to white matter differentiation is well preserved. No extra-axial fluid collections are identified. The ventricles are normal in size. There is no abnormal attenuation within the brain parenchyma. The osseous structures and soft tissues are normal. Mucoperiosteal thickening of the left maxillary sinus. The mastoid air cells and visualized portions of the paranasal sinuses are well aerated. CT/CT head/brain wo IV con IMPRESSION: 1. No acute intracranial pathology. 2. Chronic white matter small vessel ischemic changes. EXAMINATION: Noncontrast CT scan of the cervical spine. INDICATION: Fall COMPARISON: CT cervical spine from 03/15/2024 TECHNIQUE: Helical, multidetector axial images were obtained from the occiput to the upper thorax. Coronal and sagittal reformats of the cervical spine were provided for interpretation. DLP: 315.89 mGy-cm FINDINGS: No acute fractures or dislocations of the cervical spine are seen. Multilevel degenerative changes. Anatomic alignment and positioning of the vertebral bodies and posterior elements is noted. The atlantoaxial joint and craniovertebral articulations are normal without evidence of subluxation. There is no prevertebral soft tissue swelling. Calcification left thyroid lobe. Prominence of the right thyroid lobe. Visualized portions of the long are unremarkable. IMPRESSION: 1. No acute visible fracture or dislocation. 2. Multilevel degenerative changes. EXAMINATION: XR BILATERAL HIPS WITH AP PELVIS CLINICAL INFORMATION: Pain in both hips. Status post fall. COMPARISON: X-ray the pelvis February 2023 TECHNIQUE: 2 views of each hip. Single AP view of the pelvis. FINDINGS: Right hip: Hip joint surrounding bone and soft tissues are normal. No fracture Left hip: The hip joint surrounding bone and soft tissues are normal. No fracture Pelvis: Hips as above. Degenerative changes of the symphysis pubis. Sacroiliac joints unremarkable. Remaining pelvic bones are unremarkable. Incidental note made of distal portion of a right ureteral stent. XR/XR hip BI w PEL1V IMPRESSION: RIGHT HIP: Normal. LEFT HIP: Normal. Pelvis: No acute abnormality noted. Degenerative changes of the symphysis pubis EXAMINATION: CT ABDOMEN AND PELVIS WITHOUT CONTRAST CLINICAL INFORMATION: Rule out stone COMPARISON: 03/15/2024 TECHNIQUE: Multidetector volumetric imaging was performed from the superior aspect of the liver through the pubic symphysis. Sagittal and coronal reformatted images were obtained on the technologist's workstation. This CT examination was performed using dose optimization techniques as appropriate, variously including the following: *Automated exposure control *Adjustment of mA and/or kV according to patient size (this includes techniques or standardized protocols for targeted exams where dose is matched to indication/reason for exam; i.e. extremities or head) *Use of iterative reconstruction technique DLP: 625 mGy-cm FINDINGS: LUNG BASES: Subsegmental bibasilar atelectasis. LIVER, GALLBLADDER, AND BILIARY TREE: The liver is normal in size, shape, and attenuation. No focal hepatic lesion or biliary ductal dilatation is identified on this noncontrast exam. The gallbladder is unremarkable. PANCREAS: Grossly unremarkable. SPLEEN: Unremarkable. ADRENAL GLANDS: Unremarkable. KIDNEYS AND URETERS: A right ureteral stent is present with the proximal portion in the region of the ureteropelvic junction in the distal portion in the bladder; no associated hydronephrosis. Redemonstrated large left renal cyst with thin calcified septation for which no further follow-up is recommended. Left extrarenal pelvis appears dilated mildly more dilated than on 03/15/2024 without obstructing calculus. There is redemonstration of a few scattered left renal calculi measuring up to 13 mm in length. BLADDER: Unremarkable. GASTROINTESTINAL TRACT: No evidence of bowel obstruction. There is colonic diverticulosis without diverticulitis. The appendix is unremarkable. No free fluid or free air is seen. ABDOMINAL WALL: Bilateral fat-containing inguinal hernias. LYMPH NODES: Normal. VASCULAR: Scattered atherosclerotic calcifications. PELVIC VISCERA: Patient is status post hysterectomy. OSSEOUS STRUCTURES: Multilevel degenerative changes in the spine. CT/CT abdomen pelvis wo IV con IMPRESSION: 1. Left extrarenal pelvis appears more dilated than on 03/15/2024 without obstructing calculus. 2. Right ureteral stent with the proximal portion in the region of the ureteropelvic junction and the distal portion in the bladder. No associated hydronephrosis. 3. Redemonstrated left renal calculi. Independent Historian Clinical information obtained from an independent historian. History obtained from or confirmed by: Other (daughter) External Record Review External record reviewed: Inpatient record, Office record, Outpatient record, Prior outpatient labs, Prior outpatient radiology, Primary care record and Outside ED record Prescription Management I considered prescription management with: Pain Medication Social Determinants Patient?s care significantly limited by Social Determinants of Health including: Other Social Determinant of Health Critical Care Time Critical Care Time Critical Care Time: No Discharge Plan Discharge Clinical Impression: Bilateral hip pain, Renal cyst, Constipation Patient Disposition: Home, Self-Care Instructions: Constipation (ED), High Fiber Diet (ED), Hip Pain (ED) Additional Instructions: The xrays of your hips and pelvis do not show fracture. The CT of your head/ brain is normal. The CT of your neck is normal. As discussed, your CT shows left renal cyst with small stones in the left kidney without evidence of obstruction. Please follow up with your urologist in 2 weeks. Return with new or worsening symptoms. In the case of an emergency call 911. For your constipation, I recommend using stool softeners such as colace 100mg twice daily. Take the prescribed laxative (golytely) as directed. You may try milk of magnesia as well. Follow up with your doctor in 2 weeks. Return with new or worsening symptoms. In the case of an emergency call 911. rx: peg 3350-electrolyes (gavilyte-6) [id number] gram recon sumanth 240 ml Q10m 4000 until fecal effluent is clear Prescriptions: No Action famotidine 20 mg tablet 20 mg PO BID Qty: 180 2RF fluticasone propion-salmeterol [Advair Diskus] 250-50 mcg/dose blister with device 1 puff INHALATION BID PRN (Reason: shortness or breath or wheezing) albuterol sulfate 2.5 mg /3 mL (0.083 %) solution for nebulization 1 amp inhalation Q6H PRN (Reason: Wheezing) (DME) blood-glucose meter [OneTouch Verio Flex meter] Misc MISCELLANEOUS DIRECTED (DME) OneTouch Verio test strips Strip MISCELLANEOUS BID (DME) lancets [MobiscopeTouch Delica Plus Lancet] 33 gauge misc MISCELLANEOUS BID Eliquis 5 mg tablet 5 mg PO BID Qty: 60 0RF Hold Instructions: Resume on 06/05/23. On hold due to hematuria from obstructive uropathy and recent stent placement ferrous gluconate 324 mg (37.5 mg iron) Tablet 324 mg PO QAM acetaminophen 325 mg tablet 325 mg PO Q6H PRN (Reason: mild pain) docusate sodium 100 mg capsule 100 mg PO BID sennosides [senna] 8.6 mg tablet 1 tab PO BID lidocaine 5 % adhesive patch,medicated 1 patch topical DAILY PRN (Reason: pain) Qty: 15 0RF Rx Instructions: leave on most painful area for up to 12 hrs cetirizine 10 mg Tablet 10 mg PO DAILY PRN (Reason: allergies) pyridoxine (vitamin B6) 100 mg Tablet 100 mg PO DAILY simethicone 80 mg Tablet,Chewable 80 mg PO QID PRN (Reason: Indigestion) tramadol 50 mg tablet 50 mg PO Q6H PRN (Reason: Pain) Myrbetriq 50 mg tablet extended release 24 hr 50 mg PO DAILY furosemide 40 mg tablet 40 mg PO DAILY amlodipine 5 mg tablet 5 mg PO DAILY Qty: 90 0RF metformin 850 mg tablet 850 mg PO DAILY atorvastatin 80 mg tablet 80 mg PO DAILY albuterol sulfate [Ventolin HFA] 90 mcg/actuation HFA aerosol inhaler 2 puff inhalation Q4-6H PRN (Reason: Wheezing) clopidogrel 75 mg tablet 75 mg PO DAILY metoprolol succinate [Toprol XL] 50 mg tablet extended release 24 hr 50 mg PO DAILY duloxetine 30 mg capsule,delayed release(DR/EC) 30 mg PO DAILY Referrals: [facility] [Provider Group] - 2 weeks Flor Marie MD [Primary Care Provider] - Interventions: ED Discharge Assessment Last Done: 04/02/24 22:36 Discharge Date/Time: 04/02/24 22:43 Print Language: Lao
[2024-04-02 12:59] VITALS: BP 162/53; PULSE 73; RESP 18; TEMP 37.1; O2SAT 98; BMI 34.0
--- NOTE | 2024-04-02 13:04 | ECG_ITS ---
Test Reason : lethargy Blood Pressure : / mmHG Vent. Rate : 067 BPM Atrial Rate : 000 BPM P-R Int : 000 ms QRS Dur : 088 ms QT Int : 404 ms P-R-T Axes : 000 -03 152 degrees QTc Int : 426 ms Atrial fibrillation with premature ventricular or aberrantly conducted complexes Nonspecific ST and T wave abnormality Abnormal ECG When compared with ECG of 15-MAR-2024 08:01, Nonspecific T wave abnormality, worse in Inferior leads Nonspecific T wave abnormality, worse in Anterior leads Referred By: Betina Antunez Electronically Signed By:Colby Cadena
[2024-04-02 13:58] LABS: MANUAL DIFF FLAG NO
[2024-04-02 14:00] LABS: Basophils Absolute Auto 0.1 X10*3/uL (0.0-0.2); Eosinophils Absolute Auto 0.3 X10*3/uL (0.0-0.4); Eosinophils Percent Auto 5.4 % (0-4); Hemoglobin 10.9 g/dl (12.0-16.0); Imm Gran Abs Auto 0.02 X10*3/uL (0.00-0.03); Imm Gran Pct Auto 0.4 % (0.0-0.4); Lymphocytes Absolute Auto 0.9 X10*3/uL (1.2-4.9); Lymphocytes Percent Auto 17.1 % (20-40); Mean Corpuscular HGB Conc 32.1 g/dl (31.0-35.0); Mean Corpuscular Hemoglobin 28.5 pg (27.0-33.0); Mean Platelet Volume 8.8 fL (9.4-12.3); Monocytes Absolute Auto 0.5 X10*3/uL (0.1-1.2); Neutrophils Absolute Auto 3.3 x10*3/uL (2.0-8.3); Neutrophils Percent Auto 66.1 % (45-73); Platelet Count 244 X10*3/uL (160-400); Red Blood Count 3.82 X10*6/uL (4.20-5.50); Red Cell Distribution Width 14.8 % (11.0-16.0)
[2024-04-02 14:05] LABS: INTERNATIONAL NORM RATIO 1.2 (0.9-1.1); Prothrombin Time 14.2 SEC (11.1-13.3)
[2024-04-02 14:08] LABS: Partial Thromboplastin Time 33.4 SEC (26.0-36.8)
[2024-04-02 14:14] LABS: Alanine Aminotransferase 20 U/L (0-31); Albumin Level 4.3 g/dL (3.5-5.0); Alkaline Phosphatase 130 U/L (39-117); Anion Gap 13 (12-20); Aspartate Amino Transferase 25 U/L (5-31); Bilirubin Direct 0.2 mg/dL (0.0-0.5); Bilirubin Total 0.4 mg/dL (0.0-1.0); Blood Urea Nitrogen 32 mg/dL (9-16); Calcium 9.9 mg/dL (8.4-10.2); Carbon Dioxide 30 mmol/L (22-29); Chloride 104 mmol/L (96-108); Creatinine Clr Calc Pharmacy 37.6; Estimated Glomerular Filt Rate 43; Glucose Random 111 mg/dL (60-115); Lipase 24 U/L (8-78); Potassium 4.3 mmol/L (3.3-5.1); Sodium 143 mmol/L (135-145); Total Protein 7.6 g/dL (6.5-8.0)
[2024-04-02 14:21] LABS: Troponin-I High Sensitivity 8.3 ng/L (<3.5-17.0)
[2024-04-02 15:06] LABS: Appearance Urine Clear; Color Urine Yellow; Glucose Urine UA Negative (Negative); Leukocyte Esterase Urine Trace (Negative); Nitrite Urine Negative (Negative); UMIC TRIGGER UACC YES; Urine Blood Large (3+) (Negative); Urine Ketones Negative (Negative); Urine Protein Negative (Neg-Trace)
[2024-04-02 15:09] LABS: Bacteria Urine None Seen (None Seen); Hyaline Casts Urine 0-2 /LPF (0-2); RBC Urine >20 /HPF (0-2); Squamous Epithelial Cell Urine 0-2 /HPF (0-2); WBC Urine 0-5 /HPF (0-5)
[2024-04-02 17:33] VITALS: BP 177/84; PULSE 67; RESP 18; TEMP 36.9; O2SAT 100
--- NOTE | 2024-04-02 17:47 | PC.NURSE ---
Pt presents to ED from home via family. Family member reports pt had a fall in the shower on 03/28/24, went to walk-in clinic next day for eval. Since then pt has had bilat flank and hip pain, bruising noted to right hip area per family member. Did hit her head during this event, no LOC. Pt is on blood thinners as well. Reports constipation, no BM since Thursday. Denies SOB, CP, N/V/D, fevers, cough, dizziness. Alert and oriented, breathing even and unlabored, skin warm and dry. Pt able to move all extremities spontaneously, + CSMs. No obvious injury noted to head or face.
[2024-04-02] MEDS: traMADoL HCL 50 MG TABLET PO (18:18)
[2024-04-02] MEDS: Docusate Sodium 100 MG CAPSULE PO (18:18)
[2024-04-02] MEDS: polyethylene glycoL 3350 17 GM POWD.PACK PO (18:18)
[2024-04-02 19:03] VITALS: BP 194/93; PULSE 68; RESP 17; TEMP 37.1; O2SAT 98
--- NOTE | 2024-04-02 19:04 | PC.NURSE ---
Addendum entered by Jenn Card 04/02/24 19:05: pt normal sinus on portable monitor 69-73bpm. Original Note: this rn assumed care of pt, pt resting in stretcher, no acute distress noted. pt reporting 3/10 bilateral side pain, reports medication provided some relief.
[2024-04-02 22:36] VITALS: BP 170/78; PULSE 76; RESP 16; TEMP 36.8
== END 2024-04-02 22:43 | disposition home or self-care (01) ==
PROVIDERS: Physician Assistant Medical; Emergency Provider Internal Medicine; PCP Student in an Organized Health Care Education/Training Program
DX: M25.552 Pain in left hip (principal); M25.551 Pain in right hip; N28.1 Cyst of kidney, acquired; K59.00 Constipation, unspecified; E11.22 Type 2 diabetes mellitus with diabetic chronic kidney disease; I13.0 Hypertensive heart and chronic kidney disease with heart failure and stage 1 through stage 4 chronic kidney disease, or unspecified chronic kidney disease; N18.9 Chronic kidney disease, unspecified; I50.9 Heart failure, unspecified; I48.19 Other persistent atrial fibrillation; Z79.01 Long term (current) use of anticoagulants; Z79.84 Long term (current) use of oral hypoglycemic drugs; Z79.02 Long term (current) use of antithrombotics/antiplatelets; Z79.899 Other long term (current) drug therapy
CPT/HCPCS: 36415; 70450; 72125; 73521; 74176; 80048; 80076; 81001; 82550; 83690; 84484; 85025; 85610; 85730; 93005; 99284; 99285

== ENCOUNTER → 2024-04-02 13:04 | Outpatient (BNV) | payer OTHER, SELFPAY | PROVIDERS: Emergency Provider Internal Medicine; PCP Student in an Organized Health Care Education/Training Program; Visit Provider Internal Medicine Cardiovascular Disease | DX: R94.31 Abnormal electrocardiogram [ECG] [EKG] (principal) | CPT/HCPCS: 93010 ==

== ENCOUNTER 2024-04-05 19:44 | Inpatient (IN) | payer OTHER, SELFPAY ==
--- NOTE | 2024-04-05 | ECG_ITS ---
Test Reason : tachy Blood Pressure : / mmHG Vent. Rate : 152 BPM Atrial Rate : 000 BPM P-R Int : 000 ms QRS Dur : 080 ms QT Int : 282 ms P-R-T Axes : 000 026 171 degrees QTc Int : 448 ms Atrial fibrillation with rapid ventricular response Marked ST abnormality, possible lateral subendocardial injury Abnormal ECG When compared with ECG of 05-APR-2024 19:54, Vent. rate has increased BY [address] more depressed Lateral leads Inverted T waves have replaced nonspecific T wave abnormality in Lateral leads Referred By: Generic ED Physician Electronically Signed By:BRUNA GUADARRAMA
--- NOTE | 2024-04-05 | ECG_ITS ---
Test Reason : chest pain Blood Pressure : / mmHG Vent. Rate : 093 BPM Atrial Rate : 000 BPM P-R Int : 000 ms QRS Dur : 086 ms QT Int : 356 ms P-R-T Axes : 000 016 178 degrees QTc Int : 442 ms Atrial fibrillation Nonspecific ST and T wave abnormality Abnormal ECG When compared with ECG of 02-APR-2024 15:10, No significant change was found Referred By: Generic ED Physician Electronically Signed By:BRUNA GUADARRAMA
--- NOTE | ~2024-04-05 | XR_ITS ---
EXAMINATION: XR CHEST CLINICAL INFORMATION: Pain. COMPARISON: Chest radiograph dated 11/04/2023. TECHNIQUE: Frontal view of the chest was obtained. FINDINGS: The cardiac silhouette remains minimally enlarged. There are increased interstitial markings throughout the upper lungs, similar to the prior examination. No consolidation. No large pleural effusion. No pneumothorax. No acute osseous abnormality. XR/XR chest 1V IMPRESSION: Minimal cardiomegaly. No acute pulmonary disease.
--- NOTE | ~2024-04-05 | XR_ITS ---
EXAMINATION: XR CHEST CLINICAL INFORMATION: Aspiration COMPARISON: 04/05/2024 TECHNIQUE: Frontal view of the chest was obtained. FINDINGS: Lung volumes are symmetric. Mild streaky suprahilar opacities bilaterally are redemonstrated. No new focal consolidation is seen. No evidence of pneumothorax, significant pleural effusion, or overt pulmonary edema. Cardiac silhouette remains enlarged. No acute osseous findings are seen. XR/XR chest 1V IMPRESSION: Mild streaky suprahilar opacities bilaterally, similar to prior. No new consolidation.
[2024-04-05 19:52] VITALS: BP 192/128; PULSE 130; O2SAT 99
[2024-04-05 20:07] VITALS: BMI 26.3
[2024-04-05 20:14] VITALS: BP 177/80; PULSE 100; RESP 23; O2SAT 99
--- NOTE | 2024-04-05 20:37 | ED_ITS ---
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 Patient reports that she was washing the dishes and she went to go lay down. She started to feel her heart racing and what she described as chest pressure She states that she started screaming and calling for her son In the ambulance was called and the patient was found to be in AFib at 130-150 The patient reports that she did not take her metoprolol or Eliquis this morning At the time my evaluation in the ER she no longer complains of chest pressure. She is unsure of how long her symptoms lasted She complains of left hip pain only. She was seen here in the ER 3 days ago for similar complaint. She denies any recent falls No other complaints or concerns at this time Related Data Home Medications ?Medication ?Instructions ?Recorded ?Confirmed albuterol sulfate 2.5 mg/3 mL 1 amp inhalation QID PRN Wheezing 09/06/22 10/16/23 (0.083 %) solution for nebulization blood sugar diagnostic ([email or web address] 09/06/22 07/28/23 Verio test strips) blood-glucose meter ([email or web address] 09/06/22 07/28/23 Verio Flex Meter) fluticasone 250 mcg-salmeterol 50 1 puff inhalation BID 09/06/22 10/16/23 mcg/dose blistr powdr for inhalation (Advair Diskus) lancets 33 gauge (OneTouch Delica 09/06/22 07/28/23 Plus Lancet) albuterol sulfate 90 mcg/actuation 2 puff inhalation Q4-6H PRN 10/23/22 10/16/23 aerosol inhaler (Ventolin HFA) Wheezing atorvastatin 80 mg tablet 80 mg PO DAILY 10/23/22 10/16/23 metformin 850 mg tablet 850 mg PO BIDWM 10/23/22 10/16/23 ferrous gluconate 324 mg (37.5 mg 324 mg PO Q2D 04/09/23 10/16/23 iron) tablet clopidogrel 75 mg tablet 75 mg PO DAILY 04/27/23 10/16/23 metoprolol succinate 50 mg 50 mg PO DAILY 04/27/23 10/16/23 tablet,extended release 24 hr (Toprol XL) acetaminophen 325 mg tablet 650 mg PO Q6H PRN mild pain 05/25/23 10/16/23 docusate sodium 100 mg capsule 100 mg PO BID 05/25/23 10/16/23 lidocaine 5 % topical patch 1 patch topical DAILY PRN Pain 05/25/23 10/16/23 (Scale Score 1-3) polyethylene glycol 3350 17 gram 17 g PO DAILY 05/25/23 10/16/23 oral powder packet sennosides 8.6 mg tablet (senna) 1 tab PO BID 05/25/23 10/16/23 simethicone 125 mg capsule (Gas 125 mg PO QID PRN Indigestion 05/25/23 10/16/23 Relief Extra Strength) clotrimazole 1 % topical cream 1 appl topical BID 07/28/23 10/16/23 duloxetine 30 mg capsule,delayed 30 mg PO QAM 07/28/23 10/16/23 release Previous Rx's ?Medication ?Instructions ?Recorded apixaban 5 mg tablet (Eliquis) 5 mg PO BID #60 tabs 12/27/22 methylcellulose (laxative) 500 mg 500 mg PO DAILY #90 tabs 07/28/23 tablet (Citrucel) famotidine 20 mg tablet 20 mg PO BID #180 tabs 08/20/23 enoxaparin 80 mg/0.8 mL 80 mg (0.8 mL) subcut .COMPLEX 09/29/23 subcutaneous syringe (Lovenox) Lovenox bridge 2 days #3 ea azithromycin 250 mg tablet See Rx Instructions PO .COMPLEX #6 10/09/23 tabs cephalexin 500 mg capsule 500 mg PO BID 5 days #10 caps 11/10/23 mirabegron 50 mg tablet,extended 50 mg PO DAILY #30 tabs 12/22/23 release 24 hr (Myrbetriq) furosemide 40 mg tablet 40 mg PO BID #90 tabs 01/11/24 acetaminophen 325 mg capsule 650 mg (2 x 325 mg) PO Q4H PRN 03/15/24 (Tylenol) pain #30 caps lidocaine 5 % topical patch 1 patch topical DAILY PRN pain #15 03/15/24 ea tramadol 50 mg tablet 50 mg PO .[id number] PRN Pain #12 03/24/24 tabs peg 3350-electrolytes 236 240 ml PO Q10M #4,000 mL 04/02/24 gram-22.74 gram-6.74 gram-5.86 gram solution tramadol 50 mg tablet 50 mg PO BID PRN pain (scale score 04/02/24 7-10) #7 tabs Allergies Allergy/AdvReac Type Severity Reaction Status Date / Time montelukast [Singulair] Allergy Unknown itching/marysol Verified 04/05/24 20:10 h Review of Systems 2 Constitutional: Constitutional: Denies body ache(s), Denies chills and Denies headache(s) Eyes: Eyes: Denies blurry vision ENT: Denies vertigo, Denies dizziness and Denies headache(s) Cardiovascular: Cardiovascular: Reports chest pain, Reports palpitations and Denies dyspnea Respiratory: Respiratory: Denies chest congestion, Denies cough and Denies dyspnea Gastrointestinal: Gastrointestinal: Denies abdominal pain, Denies nausea and Denies vomiting Musculoskeletal: Musculoskeletal: Denies back pain Integumentary/Breasts: Skin/Breast: Denies rash Neurologic: Denies vertigo, Denies dizziness and Denies headache(s) Endocrine: Endocrine: Reports palpitations [facility] Past Medical History Medical History NSTEMI (non-ST elevated myocardial infarction) Anxiety Asymmetrical thyroid CHF (congestive heart failure) COVID-19 Renal cyst, acquired, left Obstruction, uropathy Thrombosed external hemorrhoid COPD (chronic obstructive pulmonary disease) Atrial fibrillation Gout Asthma Alcohol abuse Nephrolithiasis Knee arthropathy Osteoarthritis Diabetes Arthritis Hypertension Surgical History Hx of bilateral cataract extraction Hx of hysterectomy Hx of lithotripsy History of total right knee replacement History of esophagogastroduodenoscopy (EGD) Hx of cystoscopy Hx of colonoscopy History of total knee arthroplasty Social History Social History Household Members: Family Household Members Other:: DAUGHTER Housing: Apartment Housing Other:: low income housing Do you presently have visiting nurse or other home services: No (granddaughter is dry cleaner helper) Unable to assess alcohol history related to: Unknown Alcohol intake: unknown Patient Tobacco Use Status: Never used Tobacco e-Cigarette/Vaping Use: Never Used Second Hand Smoke Exposure: No Advance Directives: Yes Advance Directives on File: Yes Advance Directives Date on File: 09/07/22 service: No Current occupational status: disabled Physical Exam 2 Vital Signs: Vital Signs: Last Vital Signs Pulse 76 04/05/24 23:01 Resp 17 04/05/24 23:01 BP 169/81 H 04/05/24 23:01 Pulse Ox 98 04/05/24 23:01 O2 Del Method Room Air 04/05/24 23:01 BMI result Body Mass Index 26.3 Const: General: healthy appearing, comfortable, no acute distress, alert and awake Nutritional Appearance: well nourished Orientation/consciousness: p atient oriented x3 HEENT: Head: Yes normocephalic and Yes atraumatic Eyes: Eyelids: Yes eyelids normal Conjunctivae: conjunctivae normal S clerae: sclerae normal Corneas: corneas normal Pupils: Equal, round and reactive pupils present EOM: EOMs intact bilaterally Neck: Neck: Yes full ROM Resp: Effort & Inspection: normal respiratory effort, able to speak in complete sentences, no audible wheezes and not labored Auscultation: clear to auscultation bilaterally Cardio: Rate: tachycardic Rhythm: abnormal rhythm irregularly irregular GI: Inspection: No distended Palpation (GI): Soft to palpation, not firm, nontender, no guarding and not rigid Skin: General skin exam: elasticity normal Neuro: General: patient oriented x3 Cranial nerves: Yes Equal, round and reactive pupils present and Yes Bilaterally intact EOM present Cognition (Neuro): normal cognition Course Reevaluation(s) Reevaluation #1: Patient had an episode of RVR in the ER. She was given Cardizem 20 mg IV and metoprolol orally as she did not take her this morning. She has been rate controlled for last 3 hours. Initial troponin was 12.5 and repeat troponin was 88.8. This is likely due to demand ischemia related to her RVR. Will discuss with Cardiology Time: 00:26 Reevaluation #2: Cardiology recommends keeping the patient overnight, no heparin at this time Time: 00:38 Medications Administered Discontinued Medications Generic Name Dose Route Start Last Admin Trade Name Angelika PRN Reason Stop Dose Admin Diltiazem HCl 20 mg 04/05/24 21:17 04/05/24 21:19 Diltiazem Hcl 50 Mg/10 Ml Vial IVPUSH 04/05/24 21:18 20 mg STAT STA Administration Metoprolol Tartrate 50 mg 04/05/24 21:31 04/05/24 22:58 Metoprolol Tartrate 50 Mg Tablet PO 04/05/24 21:32 50 mg ONCE ONE Administration Protocol Medical Decision Making Medical Decision Making [facility] Narrative: 79-year-old female with past medical history as documented above presents for evaluation of chest pain. She is currently asymptomatic. She is unsure how long she was experiencing chest pain. She does have significant cardiac history. EMS reports the patient was found to be in AFib at 130 to 150s. During my evaluation she is AFib in the 90s. She reports not taking her metoprolol this morning. It is possible that she was in rapid AFib contributing to her chest pain. Plan for labs, chest x-ray, EKG. 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 Dr. Garcia recommends keeping the patient overnight for observation. Does not recommend heparin at this time Lab Data [facility] Lab Attestation statement: I reviewed the patient's lab results. No leukocytosis. The patient does have a mild normocytic anemia which is consistent with her baseline. There is no left shift. Patient's electrolytes are within normal limits. BUN is slightly elevated to 28 and this is consistent with her baseline. Patient's initial troponin was 12.5 and repeat was 88.8. 04/05/24 20:55 04/05/24 20:55 Labs: Lab Results 04/05/24 04/05/24 04/05/24 Range/Units 20:55 21:25 23:39 WBC 4.9 (4.8-10.8) X10*3/uL RBC 3.62 L (4.20-5.50) X10*6/uL Hgb 10.5 L (12.0-16.0) g/dl Hct 32.2 L (37.0-47.0) % MCV 89.0 (80.0-98.0) fL MCH 29.0 (27.0-33.0) pg MCHC 32.6 (31.0-35.0) g/dl RDW 14.9 (11.0-16.0) % Plt Count 222 (160-400) X10*3/uL MPV 10.0 (9.4-12.3) fL Immature Gran % (Auto) 0.4 (0.0-0.4) % Neut % (Auto) 71.9 (45-73) % Lymph % (Auto) 13.6 L (20-40) % Swain % (Auto) 9.4 (2-11) % Eos % (Auto) 3.7 (0-4) % Baso % (Auto) 1.0 (0-2) % Lymph # (Auto) 0.7 L (1.2-4.9) X10*3/uL Swain # (Auto) 0.5 (0.1-1.2) X10*3/uL Eos # (Auto) 0.2 (0.0-0.4) X10*3/uL Baso # (Auto) 0.1 (0.0-0.2) X10*3/uL Abs Immat Gran (auto) 0.02 (0.00-0.03) X10*3/uL Absolute Neuts (auto) 3.5 (2.0-8.3) x10*3/uL Absolute Nucleated RBC 0.000 (0.0-0.012) X10*3/uL Nucleated RBC % (auto) 0.0 (0.0-0.2) /100WBC PT 12.0 (11.1-13.3) SEC INR 1.0 (0.9-1.1) Sodium 142 (135-145) mmol/L Potassium 5.1 (3.3-5.1) mmol/L Chloride 108 (96-108) mmol/L Carbon Dioxide 27 (22-29) mmol/L Anion Gap 12 (12-20) BUN 28 H (9-16) mg/dL Creatinine 1.10 (0.5-1.4) mg/dL Estim Creat Clear Calc 44.9 Estimated GFR 48 Random Glucose 184 H (60-115) mg/dL Calcium 9.5 (8.4-10.2) mg/dL Total Bilirubin 0.3 (0.0-1.0) mg/dL AST 23 (5-31) U/L ALT 16 (0-31) U/L Alkaline Phosphatase 144 H (39-117) U/L Troponin I High Sens 12.5 D 88.8 H* D (<3.5-17.0) ng/L B-Natriuretic Peptide 251 H (<100) pg/mL Total Protein 7.1 (6.5-8.0) g/dL Albumin 4.0 (3.5-5.0) g/dL Lipase 28 (8-78) U/L Urine Color Yellow Urine Appearance Cloudy Urine pH 8.0 (5.0-9.0) Ur Specific [place] 1.020 (1.005-1.025) Urine Protein 100 (2+) H (Neg-Trace) mg/dL Urine Glucose (UA) Negative (Negative) mg/dL Urine Ketones Negative (Negative) mg/dL Urine Blood Large (3+) H (Negative) Urine Nitrite Negative (Negative) Ur Leukocyte Esterase Moderate (2+) H (Negative) Urine RBC >20 H (0-2) /HPF Urine WBC 11-20 H (0-5) /HPF Ur Squamous Epith Cells 6-10 (0-2) /HPF Urine Bacteria None Seen (None Seen) Hyaline Casts 3-5 (0-2) /LPF Influenza Type A (PCR) NEGATIVE (Negative) Influenza Type B (PCR) NEGATIVE (Negative) RSV RNA Qual (PCR) NEGATIVE (Negative) SARS-CoV-2 RNA (RT-PCR) NEGATIVE (Negative) Independent Interpretation I performed an independent interpretation of an: EKG Interpretation: Atrial fibrillation with a rate of 93 beats per minute. Discharge Plan Discharge Clinical Impression: Chest pain, Persistent atrial fibrillation Patient Disposition: Admitted As Inpatient Prescriptions: No Action Citrucel 500 mg tablet 500 mg PO DAILY Qty: 90 2RF Rx Instructions: take it with full glass of water famotidine 20 mg tablet 20 mg PO BID Qty: 180 2RF enoxaparin [Lovenox] 80 mg/0.8 mL syringe 80 mg subcut .COMPLEX 2 Days Qty: 3 0RF Rx Instructions: 80 mg subcutaneously 12/10 am, 12/10 pm and 12/11 am; Myrbetriq 50 mg tablet extended release 24 hr 50 mg PO DAILY Qty: 30 5RF furosemide 40 mg tablet 40 mg PO BID Qty: 90 3RF tramadol 50 mg tablet 50 mg PO .[id number] PRN (Reason: Pain) Qty: 12 0RF fluticasone propion-salmeterol [Advair Diskus] 250-50 mcg/dose blister with device 1 puff INHALATION BID albuterol sulfate 2.5 mg /3 mL (0.083 %) solution for nebulization 1 amp inhalation QID PRN (Reason: Wheezing) (DME) blood-glucose meter [[employer] Verio Flex meter] [facility] [place] MISCELLANEOUS DIRECTED (DME) OneTouch Verio test strips Strip MISCELLANEOUS BID (DME) lancets [[email or web address] Delica Plus Lancet] 33 gauge [facility] [place] MISCELLANEOUS BID Eliquis 5 mg tablet 5 mg PO BID Qty: 60 0RF Hold Instructions: Resume on 06/05/23. On hold due to hematuria from obstructive uropathy and recent stent placement ferrous gluconate 324 mg (37.5 mg iron) Tablet 324 mg PO Q2D acetaminophen 325 mg tablet 650 mg PO Q6H PRN (Reason: mild pain) polyethylene glycol 3350 17 gram Powder In Packet 17 g PO DAILY lidocaine 5 % Adhesive Patch,Medicated 1 patch TOPICAL DAILY PRN (Reason: Pain (Scale Score 1-3)) Rx Instructions: leave on most painful area for up to 12 hrs docusate sodium 100 mg capsule 100 mg PO BID sennosides [senna] 8.6 mg tablet 1 tab PO BID simethicone [Gas Relief Extra Strength] 125 mg capsule 125 mg PO QID PRN (Reason: Indigestion) cephalexin 500 mg capsule 500 mg PO BID 5 Days Qty: 10 0RF lidocaine 5 % adhesive patch,medicated 1 patch topical DAILY PRN (Reason: pain) Qty: 15 0RF Rx Instructions: leave on most painful area for up to 12 hrs acetaminophen [Tylenol] 325 mg capsule 650 mg PO Q4H PRN (Reason: pain) Qty: 30 0RF peg 3350-electrolytes 236-22.74-6.74 -5.86 gram recon soln 240 ml PO Q10M Qty: 4000 0RF Rx Instructions: until fecal effluent is clear tramadol 50 mg tablet 50 mg PO BID PRN (Reason: pain (scale score 7-10)) Qty: 7 0RF metformin 850 mg tablet 850 mg PO BIDWM atorvastatin 80 mg tablet 80 mg PO DAILY albuterol sulfate [Ventolin HFA] 90 mcg/actuation HFA aerosol inhaler 2 puff inhalation Q4-6H PRN (Reason: Wheezing) clopidogrel 75 mg tablet 75 mg PO DAILY metoprolol succinate [Toprol XL] 50 mg tablet extended release 24 hr 50 mg PO DAILY clotrimazole 1 % cream 1 appl topical BID duloxetine 30 mg capsule,delayed release(DR/EC) 30 mg PO QAM azithromycin 250 mg tablet See Rx Instructions PO .COMPLEX Qty: 6 0RF Rx Instructions: For 250 mg dose pack: take 500 mg today (day 1), then 250 mg for 4 days (days 2-5) PO Print Language: [place]
[2024-04-05 21:00] LABS: MANUAL DIFF FLAG NO
[2024-04-05 21:02] LABS: Basophils Absolute Auto 0.1 X10*3/uL (0.0-0.2); Eosinophils Absolute Auto 0.2 X10*3/uL (0.0-0.4); Eosinophils Percent Auto 3.7 % (0-4); Hematocrit 32.2 % (37.0-47.0); Hemoglobin 10.5 g/dl (12.0-16.0); Imm Gran Abs Auto 0.02 X10*3/uL (0.00-0.03); Imm Gran Pct Auto 0.4 % (0.0-0.4); Lymphocytes Absolute Auto 0.7 X10*3/uL (1.2-4.9); Lymphocytes Percent Auto 13.6 % (20-40); Mean Corpuscular HGB Conc 32.6 g/dl (31.0-35.0); Monocytes Absolute Auto 0.5 X10*3/uL (0.1-1.2); Monocytes Percent Auto 9.4 % (2-11); Neutrophils Absolute Auto 3.5 x10*3/uL (2.0-8.3); Neutrophils Percent Auto 71.9 % (45-73); Platelet Count 222 X10*3/uL (160-400); Red Blood Count 3.62 X10*6/uL (4.20-5.50); Red Cell Distribution Width 14.9 % (11.0-16.0); White Blood Count 4.9 X10*3/uL (4.8-10.8)
--- NOTE | 2024-04-05 21:15 | PC.NURSE ---
MD at bedside, verbal order for 20 mg of Cardizem IVP due to rapid Afib @ 180 bpm. HR noted to decreased to 90 bpm after receiving Cardizem. Repeat EKG obtained by staff. VSS at this time.
--- NOTE | 2024-04-05 21:17 | ECG_ITS ---
Test Reason : chest pain Blood Pressure : / mmHG Vent. Rate : 078 BPM Atrial Rate : 000 BPM P-R Int : 000 ms QRS Dur : 084 ms QT Int : 360 ms P-R-T Axes : 000 021 156 degrees QTc Int : 410 ms Atrial fibrillation with premature ventricular or aberrantly conducted complexes Nonspecific ST and T wave abnormality Abnormal ECG When compared with ECG of 05-APR-2024 21:10, Vent. rate has decreased BY 74 BPM Referred By: Lauren Chavez Electronically Signed By:BRUNA GUADARRAMA
[2024-04-05 21:19] VITALS: BP 177/80; PULSE 180
[2024-04-05] MEDS: dilTIAZem HCL 50 MG/10 ML VIAL 20 MG IVPUSH (21:19)
[2024-04-05 21:22] LABS: Alanine Aminotransferase 16 U/L (0-31); Alkaline Phosphatase 144 U/L (39-117); Anion Gap 12 (12-20); Aspartate Amino Transferase 23 U/L (5-31); Bilirubin Total 0.3 mg/dL (0.0-1.0); Blood Urea Nitrogen 28 mg/dL (9-16); Calcium 9.5 mg/dL (8.4-10.2); Carbon Dioxide 27 mmol/L (22-29); Chloride 108 mmol/L (96-108); Creatinine Clr Calc Pharmacy 44.9; Estimated Glomerular Filt Rate 48; Glucose Random 184 mg/dL (60-115); Lipase 28 U/L (8-78); Potassium 5.1 mmol/L (3.3-5.1); Sodium 142 mmol/L (135-145); Total Protein 7.1 g/dL (6.5-8.0)
[2024-04-05 21:28] LABS: B Type Natriuretic Peptide 251 pg/mL (<100)
[2024-04-05 21:30] LABS: Troponin-I High Sensitivity 12.5 ng/L (<3.5-17.0)
[2024-04-05 21:34] LABS: Appearance Urine Cloudy; Color Urine Yellow; Glucose Urine UA Negative (Negative); Leukocyte Esterase Urine Moderate (2+) (Negative); Nitrite Urine Negative (Negative); UMIC TRIGGER UACC YES; Urine Blood Large (3+) (Negative); Urine Ketones Negative (Negative); Urine Protein 100 (2+) mg/dL (Neg-Trace)
[2024-04-05 21:39] LABS: Bacteria Urine None Seen (None Seen); RBC Urine >20 /HPF (0-2); UACC Culture Trigger YES
[2024-04-05 21:46] LABS: Influenza A PCR NEGATIVE (Negative); Influenza B PCR NEGATIVE (Negative); Resp Syncy Virus RNA Qual PCR NEGATIVE (Negative); SARS COV2 PCR INHOUSE NEGATIVE (Negative)
[2024-04-05 22:58] VITALS: BP 169/81; PULSE 91
[2024-04-05] MEDS: Metoprolol Tartrate 50 MG TABLET PO (22:58)
[2024-04-05 23:01] VITALS: BP 169/81; PULSE 76; RESP 17; O2SAT 98
[2024-04-06] VITALS (8 sets, daily range): BP systolic 135–196; BP diastolic 63–89; PULSE 63–86; RESP 14–27; TEMP 36.1–36.9; O2SAT 94–98
[2024-04-06 00:16] LABS: Troponin-I High Sensitivity 88.8 ng/L (<3.5-17.0)
[2024-04-06] MEDS: Apixaban 5 MG TABLET PO ×2 (01:34→22:19)
[2024-04-06] MEDS: Albuterol/Iprat 2.5/0.5MG 3 ML AMPUL.NEB INHALE (03:21)
[2024-04-06 04:21] LABS: Venous Blood Gas Refer to POC result
[2024-04-06 04:22] LABS: MANUAL DIFF FLAG NO
[2024-04-06 04:24] LABS: Basophils Absolute Auto 0.1 X10*3/uL (0.0-0.2); Basophils Percent Auto 0.8 % (0-2); Eosinophils Absolute Auto 0.2 X10*3/uL (0.0-0.4); Eosinophils Percent Auto 3.7 % (0-4); Hematocrit 31.4 % (37.0-47.0); Hemoglobin 10.3 g/dl (12.0-16.0); Imm Gran Abs Auto 0.02 X10*3/uL (0.00-0.03); Imm Gran Pct Auto 0.3 % (0.0-0.4); Lymphocytes Absolute Auto 1.1 X10*3/uL (1.2-4.9); Lymphocytes Percent Auto 16.8 % (20-40); Mean Corpuscular HGB Conc 32.8 g/dl (31.0-35.0); Mean Corpuscular Hemoglobin 29.1 pg (27.0-33.0); Mean Corpuscular Volume 88.7 fL (80.0-98.0); Mean Platelet Volume 9.6 fL (9.4-12.3); Monocytes Absolute Auto 0.7 X10*3/uL (0.1-1.2); Monocytes Percent Auto 10.3 % (2-11); Neutrophils Absolute Auto 4.3 x10*3/uL (2.0-8.3); Neutrophils Percent Auto 68.1 % (45-73); Platelet Count 228 X10*3/uL (160-400); Red Blood Count 3.54 X10*6/uL (4.20-5.50); Red Cell Distribution Width 14.8 % (11.0-16.0); White Blood Count 6.3 X10*3/uL (4.8-10.8)
[2024-04-06 04:26] LABS: VBG Base Excess 2.2 mmol/L; VBG HCO3 27 mmol/L (22-26); VBG pCO2 42 mmHg; VBG pO2 40 mmHg
[2024-04-06 04:35] LABS: Anion Gap 12 (12-20); Blood Urea Nitrogen 23 mg/dL (9-16); Calcium 9.2 mg/dL (8.4-10.2); Carbon Dioxide 24 mmol/L (22-29); Chloride 109 mmol/L (96-108); Creatinine Clr Calc Pharmacy 45.7; Estimated Glomerular Filt Rate 49; Glucose Random 156 mg/dL (60-115); Potassium 4.9 mmol/L (3.3-5.1); Sodium 140 mmol/L (135-145)
[2024-04-06 04:48] LABS: Troponin-I High Sensitivity 318.6 ng/L (<3.5-17.0)
--- NOTE | 2024-04-06 05:07 | P.HPHOSP_ITS ---
History of Present Illness Date of Service: 04/06/24 Attending physician on admission: Khai Langston Chief Complaint: Chest pain Roseanna Hurt is 79 years old woman with past medical history significant for CAD (severe mid LAD stenosis s/p drug-eluting stent), mod to severe MR, atrial fibrillation on Eliquis, CHF, COPD -no home oxygen, hypertension, type 2 diabetes mellitus and CKD was brought to the emergency department via EMS due to sudden onset of left-sided chest pain diastolic last night while she was in bed. She stated that she has not been feeling well since the morning. Associated with the chest pain she had an episode of vomiting but denied diaphoresis, palpitations or shortness on breath. She also denies headaches, cough, fevers chills. Patient does not recall the name of her medications. These are provided by her granddaughter. She admitted that she did not take her medications yesterday. At the time of evaluation patient reported no chest pain. In the ED, she was found to have tachycardia is due to rapid atrial fibrillation. No hypotension or fever reported. Blood workup including CBC, CMP and lipase are basically unremarkable. Troponin increased from 88.8 to 318.6. BNP is 251 which is better than prior. CXR showed mild streaky suprahilar opacity bilaterally similar to prior without new consolidation. ECG showed atrial fibrillation with rapid ventricular response, heart rate [address] abnormalities. Repeat ECG after treatment: Atrial fibrillation + heart rate 78 bpm with PVCs and nonspecific ST and T-wave abnormalities. ED tx: Diltiazem 20 mg IV, metoprolol 50 mg p.o., Eliquis 5 mg PO. Review of Systems 2 Review of Systems: All 12 systems were reviewed and normal except as noted in HPI. [facility] Medical History NSTEMI (non-ST elevated myocardial infarction) Anxiety Asymmetrical thyroid CHF (congestive heart failure) COVID-19 Renal cyst, acquired, left Obstruction, uropathy Thrombosed external hemorrhoid COPD (chronic obstructive pulmonary disease) Atrial fibrillation Gout Asthma Alcohol abuse Nephrolithiasis Knee arthropathy Osteoarthritis Diabetes Arthritis Hypertension Surgical History Hx of bilateral cataract extraction Hx of hysterectomy Hx of lithotripsy History of total right knee replacement History of esophagogastroduodenoscopy (EGD) Hx of cystoscopy Hx of colonoscopy History of total knee arthroplasty Social History Household Members: Family Household Members Other:: DAUGHTER Housing: Apartment Housing Other:: low income housing Do you presently have visiting nurse or other home services: No (granddaughter is auto body repair technician) Unable to assess alcohol history related to: Unknown Alcohol intake: unknown Patient Tobacco Use Status: Never used Tobacco e-Cigarette/Vaping Use: Never Used Second Hand Smoke Exposure: No Advance Directives: Yes Advance Directives on File: Yes Advance Directives Date on File: 09/07/22 service: No Current occupational status: disabled Meds Allergies Allergy/AdvReac Type Severity Reaction Status Date / Time montelukast [Singulair] Allergy Unknown itching/marysol Verified 04/05/24 20:10 h Active Medications: Current Medications Sodium Chloride (0.9 % Sodium Chloride Flush 3 Ml Syringe) 3 ml IVFLUSH [facility] Medications ?Medication ?Instructions ?Recorded ?Confirmed ?Last Taken ?Type albuterol sulfate 2.5 mg/3 mL 1 amp inhalation QID PRN Wheezing 09/06/22 10/16/23 12/19/22 History (0.083 %) solution for nebulization blood sugar diagnostic ([employer] 09/06/22 07/28/23 Unknown History Verio test strips) blood-glucose meter ([employer] 09/06/22 07/28/23 Unknown History Verio Flex Meter) fluticasone 250 mcg-salmeterol 50 1 puff inhalation BID 09/06/22 10/16/23 12/19/22 History mcg/dose blistr powdr for inhalation (Advair Diskus) lancets 33 gauge ([employer] Delica 09/06/22 07/28/23 Unknown History Plus Lancet) albuterol sulfate 90 mcg/actuation 2 puff inhalation Q4-6H PRN 10/23/22 10/16/23 Unknown History aerosol inhaler (Ventolin HFA) Wheezing atorvastatin 80 mg tablet 80 mg PO DAILY 10/23/22 10/16/23 12/19/22 History metformin 850 mg tablet 850 mg PO BIDWM 10/23/22 10/16/23 12/18/22 History ferrous gluconate 324 mg (37.5 mg 324 mg PO Q2D 04/09/23 10/16/23 11/07/23 History iron) tablet clopidogrel 75 mg tablet 75 mg PO DAILY 04/27/23 10/16/23 11/10/23 History metoprolol succinate 50 mg 50 mg PO DAILY 04/27/23 10/16/23 Unknown History tablet,extended release 24 hr (Toprol XL) acetaminophen 325 mg tablet 650 mg PO Q6H PRN mild pain 05/25/23 10/16/23 Unknown History docusate sodium 100 mg capsule 100 mg PO BID 05/25/23 10/16/23 Unknown History lidocaine 5 % topical patch 1 patch topical DAILY PRN Pain 05/25/23 10/16/23 Unknown History (Scale Score 1-3) polyethylene glycol 3350 17 gram 17 g PO DAILY 05/25/23 10/16/23 Unknown History oral powder packet sennosides 8.6 mg tablet (senna) 1 tab PO BID 05/25/23 10/16/23 Unknown History simethicone 125 mg capsule (Gas 125 mg PO QID PRN Indigestion 05/25/23 10/16/23 Unknown History Relief Extra Strength) clotrimazole 1 % topical cream 1 appl topical BID 07/28/23 10/16/23 Unknown History duloxetine 30 mg capsule,delayed 30 mg PO QAM 07/28/23 10/16/23 Unknown History release Physical Exam 2 Vital Signs and Narrative: Vital Signs: Last Vital Signs Temp 98.4 F 04/06/24 03:01 Pulse 76 04/06/24 03:21 Resp 16 04/06/24 03:21 BP 190/76 H 04/06/24 03:01 Pulse Ox 98 04/06/24 03:01 O2 Del Method Room Air 04/06/24 03:01 BMI result Body Mass Index 26.3 Constitutional - Awake and Alert, No apparent distress. HEENT - Atraumatic head. PERRL. Normal sclerae. Moist oral mucosa. Heart- Irregular rhythm. Bradycardic. Lung - Normal lung expansion, Normal respiratory effort, No respiratory distress. No tachypnea. Scattered minimal wheezing. No crackles. No rhonchi. Abdomen - NT / ND; +BS; No rebound or guarding Extremities - no calf tenderness bilaterally, no swelling Musculoskeletal - Normal inspection, normal ROM Skin - Warm/Dry Neurological - Alert & oriented x3. No focal weakness grossly noted. Normal speech. Psychological - Appropriate affect Results Labs 04/06/24 04:12 04/06/24 04:12 Labs: Laboratory Results - last 24 hr 04/05/24 04/05/24 04/05/24 20:55 21:25 23:39 MCV 89.0 MCH 29.0 MCHC 32.6 RDW 14.9 Plt Count 222 MPV 10.0 Immature Gran % (Auto) 0.4 Neut % (Auto) 71.9 Lymph % (Auto) 13.6 L [place] % (Auto) 9.4 Eos % (Auto) 3.7 Baso % (Auto) 1.0 Lymph # (Auto) 0.7 L [place] # (Auto) 0.5 Eos # (Auto) 0.2 Baso # (Auto) 0.1 Abs Immat Gran (auto) 0.02 Absolute Neuts (auto) 3.5 Absolute Nucleated RBC 0.000 Nucleated RBC % (auto) 0.0 PT 12.0 INR 1.0 VBG pH VBG pCO2 VBG pO2 VBG HCO3 VBG O2 Saturation VBG Base Excess Anion Gap 12 Estim Creat Clear Calc 44.9 Estimated GFR 48 Random Glucose 184 H Calcium 9.5 Total Bilirubin 0.3 AST 23 ALT 16 Alkaline Phosphatase 144 H Troponin I High Sens 12.5 D 88.8 H* D B-Natriuretic Peptide 251 H Total Protein 7.1 Albumin 4.0 Lipase 28 Urine Color Yellow Urine Appearance Cloudy Urine pH 8.0 Ur Specific [place] 1.020 Urine Protein 100 (2+) H Urine Glucose (UA) Negative Urine Ketones Negative Urine Blood Large (3+) H Urine Nitrite Negative Ur Leukocyte Esterase Moderate (2+) H Urine RBC >20 H Urine WBC 11-20 H Ur Squamous Epith Cells 6-10 Urine Bacteria None Seen Hyaline Casts 3-5 Influenza Type A (PCR) NEGATIVE Influenza Type B (PCR) NEGATIVE RSV RNA Qual (PCR) NEGATIVE SARS-CoV-2 RNA (RT-PCR) NEGATIVE 04/06/24 04/06/24 04:12 04:15 MCV 88.7 MCH 29.1 MCHC 32.8 RDW 14.8 Plt Count 228 MPV 9.6 Immature Gran % (Auto) 0.3 Neut % (Auto) 68.1 Lymph % (Auto) 16.8 L [place] % (Auto) 10.3 Eos % (Auto) 3.7 Baso % (Auto) 0.8 Lymph # (Auto) 1.1 L [place] # (Auto) 0.7 Eos # (Auto) 0.2 Baso # (Auto) 0.1 Abs Immat Gran (auto) 0.02 Absolute Neuts (auto) 4.3 Absolute Nucleated RBC 0.000 Nucleated RBC % (auto) 0.0 PT INR VBG pH 7.40 VBG pCO2 42 VBG pO2 40 VBG HCO3 27 H VBG O2 Saturation 72.0 VBG Base Excess 2.2 Anion Gap 12 Estim Creat Clear Calc 45.7 Estimated GFR 49 Random Glucose 156 H Calcium 9.2 Total Bilirubin AST ALT Alkaline Phosphatase Troponin I High Sens 318.6 H* D B-Natriuretic Peptide Total Protein Albumin Lipase Urine Color Urine Appearance Urine pH Ur Specific [place] Urine Protein Urine Glucose (UA) Urine Ketones Urine Blood Urine Nitrite Ur Leukocyte Esterase Urine RBC Urine WBC Ur Squamous Epith Cells Urine Bacteria Hyaline Casts Influenza Type A (PCR) Influenza Type B (PCR) RSV RNA Qual (PCR) SARS-CoV-2 RNA (RT-PCR) Imaging Radiologist's Impressions: Impressions Chest X-Ray 04/05/24 20:30 IMPRESSION: Minimal cardiomegaly. No acute pulmonary disease. Chest X-Ray 04/06/24 03:32 IMPRESSION: Mild streaky suprahilar opacities bilaterally, similar to prior. No new consolidation. Assessment and Plan (1) Chest pain: Qualifiers: Chest pain type: unspecified Qualified Code(s): R07.9 - Chest pain, unspecified Status: Acute (2) Elevated liver enzymes: Status: Acute (3) S/P cardiac cath: Status: Acute (4) Mitral regurgitation: Qualifiers: Cardiac valve disease etiology: nonrheumatic Qualified Code(s): I34.0 - Nonrheumatic mitral (valve) insufficiency Status: Acute Plan Roseanna Hurt is 79 years old woman with past medical history significant for CAD (severe mid LAD stenosis s/p drug-eluting stent) and moderate to severe MR admitted with: * Atrial fibrillation with rapid ventricular response, resolved. Did not take her med yesterday. Admit to hospitalist service. Telemetry. Continue metoprolol and Eliquis. * Elevated troponin. NSTEMI vs demand ischemia. Chest pain resolved. Hesitated about starting therapy with heparin as the patient received treatment with Eliquis. Taking Plavix as well? Patient does not know the name of her medications and med rec by pharmacy has not been completed. Cardiology consult for further recommendations. * Asthma. Not in acute exacerbation. DuoNeb as needed. * Essential hypertension. Continue home medications. * Type 2 diabetes mellitus. Diabetic diet. BG checks before meals and bedtime. Insulin sliding scale. * HFpEF. Not in acute exacerbation. Continue diuretics. * Chronic anemia. Hemoglobin at baseline. Continue to monitor. *Patient does not know the name of her medications and med rec has not been completed by pharmacy. Code status: Full DVT prophylaxis: On Eliquis Patient will need hospitalization for at least 2 midnights for continuous cardiac monitoring after she presented with rapid AFib and elevated troponin. She will need evaluation by subspecialty. Quality Stroke Does the patient have a stroke diagnosis?: No VTE Prior VTE?: No VTE Risk Level:: Medical - moderate - high VTE Device Contraindication: Treatment Not Indicated VTE Drug Contraindication: N/A - Med Ordered
--- NOTE | 2024-04-06 07:00 | CA_ITS ---
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 The calculated ejection fraction is 34% by biplane method - Severe biatrial enlargement. - No obvious valvular pathology seen on this study. Findings Left Ventricle Normal left ventricular cavity size. There is mildly increased left ventricular wall thickness. The left ventricular systolic function is moderately decreased. The calculated ejection fraction is 34% by biplane method. There is moderate global hypokinesis. Diastolic function is indeterminate on the basis of available data. Right Ventricle Mildly increased right ventricular cavity size. There is mildly decreased right ventricular systolic function. Atria Severe biatrial enlargement. Aortic Valve There is a normal trileaflet aortic valve. There is mild calcification of the aortic valve. There is no aortic valve stenosis. There is no aortic valve regurgitation. Mitral Valve The mitral valve appears normal. There is trace mitral valve regurgitation. There is no mitral valve stenosis. Pulmonic Valve The pulmonic valve is likely normal. Tricuspid Valve There is trace tricuspid valve regurgitation. There is no evidence of pulmonary hypertension. Great Vessels The asc aorta is normal in size. Venous The inferior vena cava is mildly dilated and collapses less than 50% with inspiration. Pericardium/Pleural There is no evidence of pericardial effusion. Prior Study Comparison Changes noted compared to prior study dated: 06/23/2023. LVEF is lower. Recommendations, Care & Conclusions No obvious valvular pathology seen on this study. Measurements 2D Linear Measurements IVSd: 1.07 0.6-0.9/0.6-1.0 cm LVIDd: 4.50 3.9-5.3/4.2-5.9 cm LVIDd Index: 2.34 2.4-3.2/2.2-3.1 cm/m2 LVIDs: 3.48 2.0-3.6 cm LVPWd: 1.14 0.7-1.1 cm Ao Root: 3.00 2.1-3.5 cm LA Diam: 6.00 2.7-3.8/3.0-4.0 cm LAIDs Index: 3.13 1.5-2.3 cm/m2 LV Mass: 219.43 67-162/88-224 g LV Mass Index: 114.28 43-95/49-115 g/m2 LVOT Diam: 2.20 3.0+(-)1.3 cm 2D Systolic Function EF 4C: 37.10 >55% EF 2C: 27.10 >55% EF BiP: 34.30 >55% Mitral Valve MV Pk E: 1.13 MV Decel Time: 127.00 E'Lateral: 9.14 E'Medial: 5.66 E/E' Med: 20.00 E/E' Lat: 12.40 PHT: 37.00 MVA PHT: 5.95 Decel [place]: 8.93 Aortic Valve AoV Pk [place]: 1.54 AoV Pk Grad: 9.00 LVOT LVOT Pk [place]: 0.85 LVOT Mn Kw[place]: 0.57 LVOT VTI: 0.18 LVOT Pk Grad: 3.00 LVOT Mn Grad: 2.00 LVOT Diam: 2.20 LVOT Area: 3.80 Diastolic Function MV Pk E: 1.13 E'Medial: 5.66 E/E' Med: 20.00 E' Laterial: 9.14 E/E' Lat: 12.40 Right Ventricle TAPSE (mm): 22.30 TVS' Kwesi: 8.81 Tricuspid Valve TR Pk Kwesi: 2.41 TR Pk Grad: 23.00 Great Vessels Aorta Ao Root-2D: 3.00 2.0-3.7 cm Ao Asc: 3.10 2.1-3.4 cm Pulmonary Valve PV Pk Kwesi: 0.84 Peak PV Grad: 3.00 Updated in Other Vendor System with Status of Final Larry Rico MD electronically signed on 04/06/2024 5:26:39 PM with status of Final
[2024-04-06 08:02] LABS: Glucose, Whole Blood 152 mg/dL (60-115)
[2024-04-06] MEDS: Insulin Lispro 100 UNIT/ML 3 ML VIAL SUBCUT ×2 (09:06→22:19)
[2024-04-06] MEDS: 0.9 % Sodium Chloride Flush 3 ML SYRINGE IVFLUSH ×2 (09:07→22:19)
--- NOTE | 2024-04-06 09:42 | P.CONCA_ITS ---
History of Present Illness History of Present Illness Date of Service: 04/06/24 Chief complaint: Rapid Atrial Fibrillation, Elevated Troponin Narrative: This is a cardiology consultation regarding chest pain and atrial fibrillation with rapid ventricular rate. Last seen by our nurse practitioner in 2022. At that time listed to have coronary disease, NSTEMI leading to diagnostic catheterization and LAD stenting, congestive heart failure and persistent atrial fibrillation. Current admissions because of chest pain. She was complaining of left-sided chest pain and apparently did not feel well yesterday. Apparently did not take her medications yesterday. Then she was seen in the emergency room where she was found to have atrial fibrillation rapid ventricular rate. Troponins were checked and they were abnormal and eventually was admitted. After receiving her medications, her ventricular rate is much better controlled and she states she is also feeling better. Review of Systems 2 Review of Systems: Yes all other systems are reviewed and are negative Constitutional: Constitutional: Reports as per HPI and Reports no additional constitutional complaints Eyes: Eyes: Reports as per HPI and Denies no additional eye complaints ENT: Denies system reviewed and no additional complaints, except as documented and Reports as per HPI Cardiovascular: Cardiovascular: Reports as per HPI, Reports no additional cardiovascular complaints, Denies acrocyanosis, Denies cool extremities, Reports chest pain, Denies leg edema, Denies lightheadedness, Denies palpitations and Denies dyspnea Respiratory: Respiratory: Reports as per HPI, Denies no additional respiratory complaints and Denies dyspnea Gastrointestinal: Gastrointestinal: Reports as per HPI and Denies no additional gastrointestinal complaints Genitourinary: Genitourinary: Reports as per HPI Musculoskeletal: Musculoskeletal: Reports no additional musculoskeletal complaints and Reports as per HPI Integumentary/Breasts: Skin/Breast: Reports system reviewed and no additional complaints, except as docu Neurologic: Reports system reviewed and no additional complaints, except as documented and Reports as per HPI Psychiatric: Psychiatric: Reports no additional psychiatric complaints and Reports as per HPI Endocrine: Endocrine: Reports no additional endocrine complaints, Reports as per HPI and Denies palpitations Hematologic/Lymphatic: Hematologic/Lymphatic: Reports no additional hematologic/lymphatic complaints and Reports as per HPI Allergic/Immunologic: Allergic/Immunologic: Reports no additional allergic/immunologic complaints and Reports as per HPI [facility] Past Medical History Medical History NSTEMI (non-ST elevated myocardial infarction) Anxiety Asymmetrical thyroid CHF (congestive heart failure) COVID-19 Renal cyst, acquired, left Obstruction, uropathy Thrombosed external hemorrhoid COPD (chronic obstructive pulmonary disease) Atrial fibrillation Gout Asthma Alcohol abuse Nephrolithiasis Knee arthropathy Osteoarthritis Diabetes Arthritis Hypertension Family History Pertinent family history: No pertinent family history Surgical History Surgical History Hx of bilateral cataract extraction Hx of hysterectomy Hx of lithotripsy History of total right knee replacement History of esophagogastroduodenoscopy (EGD) Hx of cystoscopy Hx of colonoscopy History of total knee arthroplasty Social History Social History Household Members: Family Household Members Other:: DAUGHTER Housing: Apartment Housing Other:: low income housing Do you presently have visiting nurse or other home services: No (granddaughter is umbrella tipper hand) Unable to assess alcohol history related to: Unknown Alcohol intake: unknown Patient Tobacco Use Status: Never used Tobacco Smoked in Last 30 Days: No e-Cigarette/Vaping Use: Never Used Second Hand Smoke Exposure: No Use of substances other than those prescribed or required for medical reasons: No Advance Directives: Yes Advance Directives on File: Yes Advance Directives Date on File: 09/07/22 Do you have a plan to hurt others: No Plan service: No Current occupational status: disabled Meds Allergies Allergy/AdvReac Type Severity Reaction Status Date / Time montelukast [Singulair] Allergy Unknown itching/marysol Verified 04/05/24 20:10 h Active Medications: Current Medications Albuterol/Ipratropium (Albuterol/Iprat 2.5/0.5mg 3 Ml Ampul.Neb) 3 ml INHALE Q3H PRN PRN Reason: Shortness of Breath/Wheezing Glucose (Glucose Gel 15 Gm Gel..Gram.) 15 gm PO Q15M PRN; Protocol PRN Reason: per Hypoglycemia Standing Ord. Dextrose (D10) 250 mls @ 750 mls/hr IV Q15M PRN; Protocol PRN Reason: per Hypoglycemia Standing Ord. Insulin Human Lispro (Insulin Lispro 100 Unit/Ml 3 Ml Vial) 0 unit SUBCUT QIDACHS [facility]; Protocol Last Admin: 04/06/24 09:06 Dose: 2 unit Sodium Chloride (0.9 % Sodium Chloride Flush 3 Ml Syringe) [facility] Last Admin: 04/06/24 09:07 Dose: 3 ml Home Medications ?Medication ?Instructions ?Recorded ?Confirmed ?Last Taken ?Type albuterol sulfate 2.5 mg/3 mL 1 amp inhalation QID PRN Wheezing 09/06/22 10/16/23 12/19/22 History (0.083 %) solution for [facility]bulization [facility] 07/28/23 Unknown History Verio test strips) blood-glucose meter ([employer] 09/06/22 07/28/23 Unknown History Verio Flex Meter) fluticasone 250 mcg-salmeterol 50 1 puff inhalation BID 09/06/22 10/16/23 12/19/22 History mcg/dose blistr powdr for inhalation (Advair Diskus) lancets [facility] gauge ([facility] 09/06/22 07/28/23 Unknown History Plus Lancet) albuterol sulfate 90 mcg/actuation 2 puff inhalation Q4-6H PRN 10/23/22 10/16/23 Unknown History aerosol inhaler (Ventolin HFA) Wheezing atorvastatin 80 mg tablet 80 mg PO DAILY 10/23/22 10/16/23 12/19/22 History metformin 850 mg tablet 850 mg PO BIDWM 10/23/22 10/16/23 12/18/22 History ferrous gluconate 324 mg (37.5 mg 324 mg PO Q2D 04/09/23 10/16/23 11/07/23 History iron) tablet clopidogrel 75 mg tablet 75 mg PO DAILY 04/27/23 10/16/23 11/10/23 History metoprolol succinate 50 mg 50 mg PO DAILY 04/27/23 10/16/23 Unknown History tablet,extended release 24 hr (Toprol XL) acetaminophen 325 mg tablet 650 mg PO Q6H PRN mild pain 05/25/23 10/16/23 Unknown History docusate sodium 100 mg capsule 100 mg PO BID 05/25/23 10/16/23 Unknown History lidocaine 5 % topical patch 1 patch topical DAILY PRN Pain 05/25/23 10/16/23 Unknown History (Scale Score 1-3) polyethylene glycol 3350 17 gram 17 g PO DAILY 05/25/23 10/16/23 Unknown History oral powder packet sennosides 8.6 mg tablet (senna) 1 tab PO BID 05/25/23 10/16/23 Unknown History simethicone 125 mg capsule (Gas 125 mg PO QID PRN Indigestion 05/25/23 10/16/23 Unknown History Relief Extra Strength) clotrimazole 1 % topical cream 1 appl topical BID 07/28/23 10/16/23 Unknown History duloxetine 30 mg capsule,delayed 30 mg PO QAM 07/28/23 10/16/23 Unknown History release Physical Exam 2 Vital Signs: Vital Signs: Last Vital Signs Temp 98.3 F 04/06/24 05:46 Pulse 71 04/06/24 05:46 Resp 14 04/06/24 05:46 BP 157/84 H 04/06/24 05:46 Pulse Ox 97 04/06/24 05:46 O2 Del Method Room Air 04/06/24 05:46 BMI result Body Mass Index 26.3 Const: General: comfortable and no acute distress O rientation/consciousness: patient oriented x3 HEENT: Other: Unremarkable Head: Yes normal to inspection Neck: Neck: Yes normal visual inspection Chest: Chest palpation & inspection: normal inspection of the chest Resp: Auscultation: clear to auscultation bilaterally Cardio: Palpation: normal PMI Heart sounds: S1 normal heart sound present, S2 normal heart sound present, no gallops, no murmurs and no rubs GI: Palpation (GI): Soft to palpation Back/Spine/Pelvis: Other: unremarkable Skin: General skin exam: no rashes or lesions noted Neuro: General: patient oriented x3 Extrem: General: Yes normal to inspection Psych: Mental Status: mental status grossly normal Objective Labs and Meds 04/06/24 04:12 04/06/24 04:12 Lab results: Laboratory Results - last 24 hr 04/05/24 04/05/24 04/05/24 20:55 21:25 23:39 WBC 4.9 RBC 3.62 L Hgb 10.5 L Hct 32.2 L MCV 89.0 MCH 29.0 MCHC 32.6 RDW 14.9 Plt Count 222 MPV 10.0 Immature Gran % (Auto) 0.4 Neut % (Auto) 71.9 Lymph % (Auto) 13.6 L Stephenson % (Auto) 9.4 Eos % (Auto) 3.7 Baso % (Auto) 1.0 Lymph # (Auto) 0.7 L Stephenson # (Auto) 0.5 Eos # (Auto) 0.2 Baso # (Auto) 0.1 Abs Immat Gran (auto) 0.02 Absolute Neuts (auto) 3.5 Absolute Nucleated RBC 0.000 Nucleated RBC % (auto) 0.0 PT 12.0 INR 1.0 VBG pH VBG pCO2 VBG pO2 VBG HCO3 VBG O2 Saturation VBG Base Excess Sodium 142 Potassium 5.1 Chloride 108 Carbon Dioxide 27 Anion Gap 12 BUN 28 H Creatinine 1.10 Estim Creat Clear Calc 44.9 Estimated GFR 48 POC Glucose Random Glucose 184 H Calcium 9.5 Total Bilirubin 0.3 AST 23 ALT 16 Alkaline Phosphatase 144 H Troponin I High Sens 12.5 D 88.8 H* D B-Natriuretic Peptide 251 H Total Protein 7.1 Albumin 4.0 Lipase 28 Urine Color Yellow Urine Appearance Cloudy Urine pH 8.0 Ur Specific [place] 1.020 Urine Protein 100 (2+) H Urine Glucose (UA) Negative Urine Ketones Negative Urine Blood Large (3+) H Urine Nitrite Negative Ur Leukocyte Esterase Moderate (2+) H Urine RBC >20 H Urine WBC 11-20 H Ur Squamous Epith Cells 6-10 Urine Bacteria None Seen Hyaline Casts 3-5 Influenza Type A (PCR) NEGATIVE Influenza Type B (PCR) NEGATIVE RSV RNA Qual (PCR) NEGATIVE SARS-CoV-2 RNA (RT-PCR) NEGATIVE 04/06/24 04/06/24 04/06/24 04:12 04:15 07:59 WBC 6.3 RBC 3.54 L Hgb 10.3 L Hct 31.4 L MCV 88.7 MCH 29.1 MCHC 32.8 RDW 14.8 Plt Count 228 MPV 9.6 Immature Gran % (Auto) 0.3 Neut % (Auto) 68.1 Lymph % (Auto) 16.8 L Stephenson % (Auto) 10.3 Eos % (Auto) 3.7 Baso % (Auto) 0.8 Lymph # (Auto) 1.1 L Stephenson # (Auto) 0.7 Eos # (Auto) 0.2 Baso # (Auto) 0.1 Abs Immat Gran (auto) 0.02 Absolute Neuts (auto) 4.3 Absolute Nucleated RBC 0.000 Nucleated RBC % (auto) 0.0 PT INR VBG pH 7.40 VBG pCO2 42 VBG pO2 40 VBG HCO3 27 H VBG O2 Saturation 72.0 VBG Base Excess 2.2 Sodium 140 Potassium 4.9 Chloride 109 H Carbon Dioxide 24 Anion Gap 12 BUN 23 H Creatinine 1.08 Estim Creat Clear Calc 45.7 Estimated GFR 49 POC Glucose 152 H Random Glucose 156 H Calcium 9.2 Total Bilirubin AST ALT Alkaline Phosphatase Troponin I High Sens 318.6 H* D B-Natriuretic Peptide Total Protein Albumin Lipase Urine Color Urine Appearance Urine pH Ur Specific [place] Urine Protein Urine Glucose (UA) Urine Ketones Urine Blood Urine Nitrite Ur Leukocyte Esterase Urine RBC Urine WBC Ur Squamous Epith Cells Urine Bacteria Hyaline Casts Influenza Type A (PCR) Influenza Type B (PCR) RSV RNA Qual (PCR) SARS-CoV-2 RNA (RT-PCR) ECG Interpretation: EKG yesterday with atrial fibrillation at a rate of 93/Min with nonspecific ST-T changes. Another EKG after that shows atrial fibrillation with rapid rate at 152/Min. One further EKG with controlled rate at 78/Min and still in atrial fibrillation. Imaging Radiologist's impression: Impressions Chest X-Ray 04/05/24 20:30 IMPRESSION: Minimal cardiomegaly. No acute pulmonary disease. Chest X-Ray 04/06/24 03:32 IMPRESSION: Mild streaky suprahilar opacities bilaterally, similar to prior. No new consolidation. Assessment and Plan (1) Chest pain: Qualifiers: Chest pain type: unspecified Qualified Code(s): R07.9 - Chest pain, unspecified Status: Acute (2) NSTEMI (non-ST elevated myocardial infarction): Status: Acute (3) Atrial fibrillation with RVR: Status: Resolved Plan High sensitivity troponin levels are 12.5 followed by 88.8 followed by 318. She did have evidence of atrial fibrillation rapid rate upon arrival. That in turn could be because of missing her medications. Cardiac catheterization from 2022 with severe mid LAD disease status post PCI. PLV branch had 50% stenosis. Ramus with moderate disease. Overall, overall, suspect atrial fibrillation rapid rate from not taking beta- blockers which could have led to demand related NSTEMI. Less likely primary coronary event. We can monitor on telemetry for another day or so. Get an echocardiogram. Resume the usual cardiac regimen from home. We will follow up with you. Procedures Date of Service Date of Service: 04/06/24
[2024-04-06 10:36] LABS: Troponin-I High Sensitivity 352.7 ng/L (<3.5-17.0)
--- NOTE | 2024-04-06 10:55 | MHC.SL.SWA ---
Dysphasia Diet Status: No change Liquid Consistency and Strategies for Safe Swallow: Liquid Intake Recommendation: Thin Liquid Intake Strategies: Unrestricted Solid Food Consistency: Dietary Recommendations: Regular Oral Medication Intake: Whole with Liquid Please contact the pharmacy regarding appropriate crushable or liquid drug formulations that are available whenever modified delivery is recommended. Compensatory Strategies and Precautions to be Taken for Safe Swallow: Sitting Upright (90 deg) Supervision While Eating and Drinking for Safe Swallow: None Needed Recommendation for Speech: NA:Typical Evaluation Comment: Pt seen for clinical swallow evaluation this AM. All aspects of exam WFL. Recommend regular solids, thin liquids, pills whole in liquid. Pt to be d/c from [employer]STRU[employer] services. Please re-refer if future concerns arise. Cake Wrapper Clinican/Clinical Fellow: No Supervisory Statement: I have reviewed and agree with the student/clinical fellow's documentation: N/A Speech Language Pathologist: Olamide Denise M.A., [facility]-[employer]IL[employer]UC[employer] INSTRUCTOR
[2024-04-06 11:47] LABS: Glucose, Whole Blood 121 mg/dL (60-115)
--- NOTE | 2024-04-06 12:16 | PHA.MEDREC ---
Addendum entered by Thania Carranza [facility] 04/06/24 14:22: Patient confirms she is still on Plavix. Original Note: Pharmacy Consult ? Medication Reconciliation Pharmacy has completed the medication reconciliation. used patients medication list from home. Patients med list has lasix and metformin once daily however claims show BID for both. At home list also has clopidogrel however last bulk picker was 01/15/24 for a 30 DS. Left daughter a voicemail. If she returns call will update home med list. Recent claims for hydroxyzine prn, vitamin D3, calcium + vitamin D3, and trazodone are not on patient home med list.
--- NOTE | 2024-04-06 14:09 | MHC.CM.PN ---
IMM 04/06/24, in [place], Pt lives with family, she has 34 hours of [employer]ARD [employer] services per week from her daughter. She has a HCP on file, which when CM reviewed with her she said she wanted to change it, a new one was completed today and uploaded to chart, naming only [place]. Transportation home at [place] will be provided by daughter. PCP: Flor Garibay, DCP: home with services. CM to follow and assist with DC planning.
[2024-04-06 16:09] LABS: Glucose, Whole Blood 137 mg/dL (60-115)
--- NOTE | 2024-04-06 16:43 | PM.EVENT ---
Event Note Date of Service: 04/06/24 Event Note: This patient is seen and examined with by hospitalist service this morning Seen and examined again Patient denies any chest pain or palpitations or shortness of breath. Physical exam: As in h&P. assessment and plan coordinated in h&P note, Agree with the plan in addition: afib -continue bb, bp control htn -uncontrlled : added amlodipine in addition to metoprolol,if need these medication doses can be titrated up. asthma-seems stable -continue albuterol. Time Spent With Patient Time: Total time managing care of this patient today ____ minutes.
[2024-04-06] MEDS: amLODIPine Besylate 2.5 MG TABLET PO (17:28)
[2024-04-06 20:10] LABS: Glucose, Whole Blood 195 mg/dL (60-115)
[2024-04-06] MEDS: Sennosides 8.6 MG TABLET PO (22:19)
[2024-04-06] MEDS: Famotidine 20 MG TABLET PO (22:19)
[2024-04-06] MEDS: Docusate Sodium 100 MG CAPSULE PO (22:19)
[2024-04-06] MEDS: Lidocaine 4 % Patch ADH..PATCH 1 PATCH TRANSDERMA (23:58)
[2024-04-07] VITALS: BP 135/84; PULSE 75; RESP 20; TEMP 36.4; O2SAT 98
[2024-04-07 03:23] VITALS: BP 187/82; PULSE 107; RESP 20; TEMP 36.1; O2SAT 98
[2024-04-07 06:32] VITALS: BP 170/80; PULSE 80
[2024-04-07 07:13] LABS: Glucose, Whole Blood 130 mg/dL (60-115)
[2024-04-07 07:30] VITALS: BP 172/82; PULSE 77; RESP 18; TEMP 36.7; O2SAT 98
[2024-04-07] MEDS: Pyridoxine HCl (Vitamin B6) 50 MG TABLET 100 MG PO (08:20)
[2024-04-07] MEDS: Furosemide 40 MG TABLET PO (08:20)
[2024-04-07] MEDS: Sennosides 8.6 MG TABLET PO (08:20)
[2024-04-07] MEDS: Famotidine 20 MG TABLET PO (08:20)
[2024-04-07] MEDS: Metoprolol Succinate ER 50 MG TAB.ER.24H PO (08:20)
[2024-04-07] MEDS: DULoxetine HCl 30 MG CAPSULE.DR PO (08:20)
[2024-04-07] MEDS: Ferrous Sulfate 324 MG TABLET.DR PO (08:20)
[2024-04-07] MEDS: Docusate Sodium 100 MG CAPSULE PO (08:20)
[2024-04-07] MEDS: Atorvastatin Calcium 80 MG TABLET PO (08:20)
[2024-04-07] MEDS: Clopidogrel Bisulfate 75 MG TABLET PO (08:20)
[2024-04-07] MEDS: Apixaban 5 MG TABLET PO (08:20)
[2024-04-07] MEDS: Mirabegron 50 MG TAB.ER.24H PO (08:20)
[2024-04-07] MEDS: Acetaminophen 325 MG TABLET 975 MG PO (08:21)
[2024-04-07] MEDS: 0.9 % Sodium Chloride Flush 3 ML SYRINGE IVFLUSH (08:26)
[2024-04-07] MEDS: amLODIPine Besylate 2.5 MG TABLET PO ×2 (09:00→10:12)
--- NOTE | 2024-04-07 09:25 | P.PNCA_ITS ---
Subjective Subjective Date of Service: 04/07/24 Interval history: Patient states that she is actually feeling better. No further chest pains or other complaints. Review of Systems Review of Systems Yes all other systems are reviewed and are negative Constitutional: Reports as per HPI and Reports no additional constitutional complaints Eyes: Reports as per HPI and Denies no additional eye complaints Denies system reviewed and no additional complaints, except as documented and Reports as per HPI Cardiovascular: Reports as per HPI, Reports no additional cardiovascular complaints, Denies acrocyanosis, Denies cool extremities, Denies chest pain, Denies leg edema, Denies lightheadedness, Denies palpitations and Denies dyspnea Respiratory: Reports as per HPI, Denies no additional respiratory complaints and Denies dyspnea Gastrointestinal: Reports as per HPI and Denies no additional gastrointestinal complaints Genitourinary: Reports as per HPI Musculoskeletal: Reports no additional musculoskeletal complaints and Reports as per HPI Skin/Breast: Reports system reviewed and no additional complaints, except as docu Reports system reviewed and no additional complaints, except as documented and Reports as per HPI Psychiatric: Reports no additional psychiatric complaints and Reports as per HPI Endocrine: Reports no additional endocrine complaints, Reports as per HPI and Denies palpitations Hematologic/Lymphatic: Reports no additional hematologic/lymphatic complaints and Reports as per HPI Allergic/Immunologic: Reports no additional allergic/immunologic complaints and Reports as per HPI Physical Exam Vital Signs: Last Vital Signs Temp 98.1 F 04/07/24 07:30 Pulse 77 04/07/24 07:30 Resp 18 04/07/24 07:30 BP 172/82 H 04/07/24 07:30 Pulse Ox 98 04/07/24 07:30 O2 Del Method Room Air 04/07/24 07:30 BMI result Body Mass Index 26.3 Const General: comfortable and no acute distress Orientation/consciousness: patient oriented x3 HEENT Other: Unremarkable Head: Yes normal to inspection Neck Neck: Yes normal visual inspection Chest Chest palpation & inspection: normal inspection of the chest Resp Auscultation: clear to auscultation bilaterally Cardio Palpation: normal PMI Heart sounds: S1 normal heart sound present, S2 normal heart sound present, no gallops, no murmurs and no rubs GI Palpation (GI): Soft to palpation Back/Spine/Pelvis Other: unremarkable Skin General skin exam: no rashes or lesions noted Neuro General: patient oriented x3 Extrem General: Yes normal to inspection Psych Mental Status: mental status grossly normal Objective Labs and Meds 04/06/24 04:12 04/06/24 04:12 Lab results: Laboratory Results - last 24 hr 04/06/24 04/06/24 04/06/24 09:45 11:44 16:02 POC Glucose 121 H 137 H Troponin I High Sens 352.7 H* 04/06/24 04/07/24 20:07 07:01 POC Glucose 195 H 130 H Troponin I High Sens Progress Note: A&P Assessment and plan (1) Chest pain: Status: Acute (2) NSTEMI (non-ST elevated myocardial infarction): Status: Acute (3) Atrial fibrillation with RVR: Status: Resolved Plan High sensitivity troponin levels are 12.5 followed by 88.8 followed by 318 and 352. She did have evidence of atrial fibrillation and rapid rate upon arrival. That in turn could be because of missing her medications. Cardiac catheterization from 2022 with severe mid LAD disease status post PCI. PLV branch had 50% stenosis. Ramus with moderate disease. Overall, overall, suspect atrial fibrillation rapid rate from not taking beta- blockers which could have led to demand related NSTEMI. Less likely primary coronary event. It seems that her rate is generally controlled now. Echocardiogram with LVEF of 34%. Severe biatrial enlargement. LVEF is lower than prior study which in turn could be related to atrial fibrillation rapid rate/tachycardia mediated. She is back on her usual cardiac regimen. Otherwise, blood pressure seems running high and meds will need to be adjusted. Can ambulate and see how she does. Discussed with Dr. Nieves. Time Spent With Patient Time: Total time managing care of this patient today ____ minutes. Progress Note: Quality Stroke Does the patient have a stroke diagnosis?: No Procedures Date of Service Date of Service: 04/07/24
--- NOTE | 2024-04-07 10:50 | PM.DS ---
DS: Providers Provider Date of Service: 04/07/24 Date of admission: 04/06/24 02:33 Date of discharge: 04/07/24 Primary care physician: Unknown Physician Consults: 04/06/24 08:42 Consult to Cardiology Routine Consulting Provider: [facility] Reason for consultation: nstemi/afib rvr Has provider been notified: No Attending physician on discharge: Layo Nieves Discharging clinician: Layo Nieves DS: Diagnosis Discharge Diagnosis (1) Chest pain: Status: Acute (2) NSTEMI (non-ST elevated myocardial infarction): Status: Acute (3) Atrial fibrillation with RVR: Status: Resolved DS: Summary Hospital Course Hospital Course: 79 years old woman with past medical history significant for CAD (severe mid LAD stenosis s/p drug-eluting stent), mod to severe MR, atrial fibrillation on Eliquis, CHF, COPD -no home oxygen, hypertension, type 2 diabetes mellitus and CKD was brought to the emergency department via EMS due to sudden onset of left-sided chest pain . She stated that she has not been feeling well since the morning. Associated with the chest pain she had an episode of vomiting but denied diaphoresis, palpitations or shortness on breath. She also denies headaches, cough, fevers chills. Patient does not recall the name of her medications. These are provided by her granddaughter. She admitted that she did not take her medications yesterday. At the time of evaluation patient reported no chest pain. In the ED, she was found to have tachycardia is due to rapid atrial fibrillation. No hypotension or fever reported. Blood workup including CBC, CMP and lipase are basically unremarkable. Troponin increased from 88.8 to 318.6. BNP is 251 which is better than prior. CXR showed mild streaky suprahilar opacity bilaterally similar to prior without new consolidation. ECG showed atrial fibrillation with rapid ventricular response, heart rate [address] abnormalities. Repeat ECG after treatment: Atrial fibrillation + heart rate 78 bpm with PVCs and nonspecific ST and T-wave abnormalities. ED tx: Diltiazem 20 mg IV, metoprolol 50 mg p.o., Eliquis 5 mg PO. Hospital course: Patient was admitted for left-sided chest tightness, also found to have added fibrillation with RVR, elevated troponin: cxr seems similar to previous, Patient was given metoprolol heart rate seems to be improved, troponin elevated was thought to be secondary to AFib. Patient also has uncontrolled hypertension(blood pressure fluctuating)-added amlodipine 5 mg daily. amlodipine dose can be adjused out patiently as needed for blood pressure. patient need to follow-up with the PCP. Patient will be going home with VNA. plan: continue amlodipine 5 mg po daily.amlodipine dose can be adjused out patiently as needed for blood pressure. Above management discussed with the patient in detail length with the help of metallurgical laboratory assistant, she understand and in agreement with the above plan. Time spent 40 minute. Time Attestation Total time managing care of this patient today: 40 mintues. Discharge Coordination Time (in mins): 40 min Quality: Safe Use of Opioids Does Pt have an Active Cancer Diagnosis on the Problem List?: No Quality: Stroke Does the patient have a stroke diagnosis?: No Physical Exam Vital Signs: Vital Signs: Last Vital Signs Temp 98.1 F 04/07/24 07:30 Pulse 77 04/07/24 07:30 Resp 18 04/07/24 07:30 BP 172/82 H 04/07/24 07:30 Pulse Ox 98 04/07/24 07:30 O2 Del Method Room Air 04/07/24 07:30 BMI result Body Mass Index 26.3 Appearance: Alert.? Oriented X3.? cvs:irregular rythem, [id number] . res: clear to auscultation ,no rhonchii or wheezing abd: no rebound or guarding ,nt, bs present. ext pulses present , no cyanosis. neuro: axo3 , nonfocal. DS: Data Data Completed and Pending Completed studies during hospitalization [Text1]: Procedures Assistance with Respiratory Ventilation, Less than 24 Consecutive Hours, Continuous Positive Airway Pressure (04/09/23) Dilation of Bilateral Ureters with Intraluminal Device, Via Natural or Artificial Opening Endoscopic (03/02/23) Dilation of Right Ureter with Intraluminal Device, Via Natural or Artificial Opening Endoscopic (05/25/23) Fluoroscopy of Kidneys, Ureters and Bladder (03/02/23) Fluoroscopy of Right Kidney, Ureter and Bladder (05/25/23) Removal of Intraluminal Device from Bladder, Via Natural or Artificial Opening Endoscopic (12/19/22) Labs on day of discharge: Laboratory Results - last 24 hr 04/06/24 04/06/24 04/06/24 11:44 16:02 20:07 POC Glucose 121 H 137 H 195 H 04/07/24 07:01 POC Glucose 130 H Imaging Chest x-ray: Radiologist's impression: ITS Impressions Chest X-Ray 04/05/24 20:30 IMPRESSION: Minimal cardiomegaly. No acute pulmonary disease. Chest X-Ray 04/06/24 03:32 IMPRESSION: Mild streaky suprahilar opacities bilaterally, similar to prior. No new consolidation. Discharge Plan Discharge Anticipated Discharge Date/Time: 04/07/24 09:50 Patient Disposition: Home, Self-Care Discharge Diagnosis: htn ,ch afib Referrals: Physician,Unknown J [Primary Care Provider] - 1 Week Discharge Medications: Continued famotidine 20 mg tablet 20 mg PO BID Qty: 180 2RF fluticasone propion-salmeterol [Advair Diskus] 250-50 mcg/dose blister with device 1 puff INHALATION BID PRN (Reason: shortness or breath or wheezing) albuterol sulfate 2.5 mg /3 mL (0.083 %) solution for nebulization 1 amp inhalation Q6H PRN (Reason: Wheezing) (DME) blood-glucose meter [OneTouch Verio Flex meter] Mis MISCELLANEOUS DIRECTED (DME) OneTouch Verio test strips Strip MISCELLANEOUS BID (DME) lancets [OneTouch Delica Plus Lancet] 33 gauge [facility] [place] MISCELLANEOUS BID Eliquis 5 mg tablet 5 mg PO BID Qty: 60 0RF Hold Instructions: Resume on 06/05/23. On hold due to hematuria from obstructive uropathy and recent stent placement ferrous gluconate 324 mg (37.5 mg iron) Tablet 324 mg PO QAM acetaminophen 325 mg tablet 325 mg PO Q6H PRN (Reason: mild pain) docusate sodium 100 mg capsule 100 mg PO BID sennosides [senna] 8.6 mg tablet 1 tab PO BID lidocaine 5 % adhesive patch,medicated 1 patch topical DAILY PRN (Reason: pain) Qty: 15 0RF Rx Instructions: leave on most painful area for up to 12 hrs cetirizine 10 mg Tablet 10 mg PO DAILY PRN (Reason: allergies) pyridoxine (vitamin B6) 100 mg Tablet 100 mg PO DAILY simethicone 80 mg Tablet,Chewable 80 mg PO QID PRN (Reason: Indigestion) tramadol 50 mg tablet 50 mg PO Q6H PRN (Reason: Pain) Myrbetriq 50 mg tablet extended release 24 hr 50 mg PO DAILY furosemide 40 mg tablet 40 mg PO DAILY metformin 850 mg tablet 850 mg PO DAILY atorvastatin 80 mg tablet 80 mg PO DAILY albuterol sulfate [Ventolin HFA] 90 mcg/actuation HFA aerosol inhaler 2 puff inhalation Q4-6H PRN (Reason: Wheezing) clopidogrel 75 mg tablet 75 mg PO DAILY metoprolol succinate [Toprol XL] 50 mg tablet extended release 24 hr 50 mg PO DAILY duloxetine 30 mg capsule,delayed release(DR/EC) 30 mg PO DAILY Discharge Orders: Discharge Order (Routine); Ordered 04/07/24 Ordered By: Layo Nieves Diet: Advance to usual diet Activity on Discharge: As tolerated Stand Alone Forms: Patient Portal Discharge page Print Language: Ugandan Care Plan Goals: Patient was admitted for left-sided chest tightness, also found to have added fibrillation with RVR, elevated troponin: Patient was given metoprolol heart rate seems to be improved, troponin elevated was thought to be secondary to AFib. Patient also has uncontrolled hypertension(blood pressure fluctuating)-added amlodipine 5 mg daily. amlodipine dose can be adjused out patiently as needed for blood pressure. patient need to follow-up with the PCP. Patient will be going home with VNA. Health Concerns: As above. Plan of Treatment: As above. Assessment: As above.
--- NOTE | 2024-04-07 11:00 | W.MHC.F2F ---
Service Date Service Date: 04/07/24 Encounter Date of encounter: 04/07/24 Encounter: ch afib,htn Reasons for Services Signs and symptoms assessed: any chest pain or sob. Reason for penitentiary: CV/CP assess and/or care, medication management, medication treatment and teach disease management MD Overseeing Care: Flor Medina Homebound: Leaving the home is medically contraindicated at this time without the asist of a device and/or another person due th the listed conditions above and below. Reason homebound: weakness related to hospital stay Homebound supporting statement: Patient is generalized weak post hospitalization stay, has multiple comorbidities-need need help to go to appointments, blood pressure monitoring, medication and disease management Certification: Based on the above findings, I certify that this patient is confined to the home and needs intermittent penitentiary care, physical therapy and/or speech therapy, or continues to need occupational therapy. The patient is under my care, and I have initiated the establishment of the plan of care. The patient will be followed by a physician who will periodically review the plan of care. Time Spent With Patient Time: Total time managing care of this patient today ____ minutes.
--- NOTE | 2024-04-07 11:01 | MHC.CM.PN ---
IMM 04/06/24 Per MD rounds patient is ready to discharge. CM met with patient and a aerial photograph interpreter. Patient is agreeable to a SN/Home services. Preferences for Home agencies obtained and referrals have been sent. [facility] has accepted the casr. The other agency declined the referral. Patient has arranged for a ride home from her dtr. HEAD RIGGER services will resume.
[2024-04-07 11:07] LABS: Glucose, Whole Blood 131 mg/dL (60-115)
[2024-04-07 11:10] VITALS: BP 152/75; PULSE 78; RESP 18; TEMP 36.7; O2SAT 98
== END 2024-04-07 12:45 | disposition home health service (06) | DRG 281 ==
LOC: HO.ED 04-06 00:46 → HO.EDOVER 04-06 02:42 → HO.IMC 04-06 09:53
PROVIDERS: Physician Assistant; Admitting Provider Internal Medicine; Emergency Provider Emergency Medicine; PCP Student in an Organized Health Care Education/Training Program; Visit Provider Internal Medicine
DX: I48.19 Other persistent atrial fibrillation (principal); I50.32 Chronic diastolic (congestive) heart failure; I21.A1 Myocardial infarction type 2; I11.0 Hypertensive heart disease with heart failure; I34.0 Nonrheumatic mitral (valve) insufficiency; I25.10 Atherosclerotic heart disease of native coronary artery without angina pectoris; Z95.5 Presence of coronary angioplasty implant and graft; Z91.148 Patient's other noncompliance with medication regimen for other reason; Z20.822 Contact with and (suspected) exposure to COVID-19; Z79.01 Long term (current) use of anticoagulants; Z79.84 Long term (current) use of oral hypoglycemic drugs; Z79.899 Other long term (current) drug therapy
CPT/HCPCS: 0241U; 36415; 71045; 80048; 80053; 81001; 82803; 82947; 83690; 83880; 84484; 85025; 85610; 87086; 92610; 93005; 93306; 94640; 99222; 99285; Q9957

== ENCOUNTER → 2024-04-05 19:54 | Outpatient (BNV) | payer OTHER, SELFPAY | PROVIDERS: Admitting Provider Internal Medicine; Emergency Provider Emergency Medicine; Visit Provider Internal Medicine | DX: R07.9 Chest pain, unspecified (principal) | CPT/HCPCS: 93010 ==

== ENCOUNTER → 2024-04-06 02:33 | Outpatient (BNV) | payer OTHER, SELFPAY | PROVIDERS: Admitting Provider Internal Medicine; Emergency Provider Emergency Medicine; Visit Provider Internal Medicine | DX: R07.9 Chest pain, unspecified (principal); I21.4 Non-ST elevation (NSTEMI) myocardial infarction; I48.91 Unspecified atrial fibrillation | CPT/HCPCS: 99223; 99239; 99499; G0180 ==

== ENCOUNTER → 2024-04-06 02:33 | Outpatient (BNV) | payer OTHER, SELFPAY | PROVIDERS: Admitting Provider Internal Medicine; Emergency Provider Emergency Medicine; Visit Provider Internal Medicine | DX: R07.9 Chest pain, unspecified (principal); I21.4 Non-ST elevation (NSTEMI) myocardial infarction; I48.91 Unspecified atrial fibrillation; I51.7 Cardiomegaly | CPT/HCPCS: 93306; 99223; 99233 ==

== ENCOUNTER 2024-04-21 11:07 | Outpatient (AMB) | payer OTHER, SELFPAY ==
--- NOTE | 2024-04-21 11:09 | MHC.OFFVIS ---
Vital Signs 04/21/24 11:18 Height 5 ft 2 in Weight 181 lb 10.574 oz BMI 33.2 BP 138/74 Blood Pressure Location Lt brachial Position Sitting Pulse 66 Pulse Source Pulse Oximeter Pulse Oximetry (%) 97 Oxygen Delivery Method Room Air Intake Visit Reasons: follow up for med/Docusate sodium Intake Note: Roseanna presents in office today for a scheduled FUV CC; Pt received new rx at last visit. Pt reports that she has not gotten the medication for a while and has been constipated as a result. Pt reports that the medication was still effective last they were aware. Pt does need a refill of the Colace. Pt reports that they are well otherwise and do not have any additional concerns. Heat Reader Required: Yes Allergies montelukast [Singulair] Allergy (Unknown, Verified 04/21/24 11:16) itching/rash HPI HPI follow up for med/Docusate sodium: Details: LAST VISIT 01/19/2023 GERD (gastroesophageal reflux disease) Continue current treatment with famotidine twice a day. Patient was encouraged to avoid dietary triggers and late night snacking. Staying upright for minimum 3 hours after meals discussed with patient. IBS (irritable bowel syndrome) Continue low FODMAP diet. Patient reports that she has been feeling well denies any abdominal pain, cramping. Moves her bowels better now with senna and Colace. Chronic idiopathic constipation Continue Senokot and Colace. Patient was encouraged to increase fluid intake and activity to promote better bowel motility. Hemorrhoid Will give patient script for Proctosol. Patient reports that her hemorrhoids are better now. Continue Colace and Senokot. Patient can do Sitz baths. I will see patient in 6 months, sooner on as needed basis. Patient is agreeable to this plan and verbalizes understanding of instructions. She was given the opportunity to ask questions and all questions answered. ? Thank you for allowing me to participate in her care Plan Medications New hydrocortisone 2.5% (Proctosol HC) 1 appl LA BID-QID PRN 30 grams 2RF hemorrhoids K64.9 Changed From methylcellulose (laxative) 1 tab PO DAILY To methylcellulose (laxative) (Fiber Laxative (methylcellulose)) 500 mg PO DAILY 90 tabs 2RF From sennosides 1 tab PO BID PRN constipation To sennosides (senna) 8.6 mg PO BID PRN 180 tabs 2RF constipation Refill docusate sodium 100 mg PO BID 180 caps 3RF Discontinued polyethylene glycol 3350 Discontinued Reason: Patient no longer taking 17 grams PO DAILY 510 grams 3RF TODAY'S VISIT: Patient is here today for requested visit. Patient states that she ran out of Colace and now is constipated. Patient states that she was also taking senna, however she felt like as it was working she did not feel like she was able to empty completely. Patient still had occasional abdominal bloating and cramping when going to the bathroom. Patient denies any melena, hematochezia. Denies any dyspepsia, dysphagia or odynophagia. Patient is taking famotidine twice a day and her symptoms of acid reflux are suppressed. Patient denies any other GI concerning symptoms. [facility] Medical History (Updated 04/21/24 @ 11:43 by Nupur Lewis, [facility]) Elevated liver enzymes Persistent atrial fibrillation NSTEMI (non-ST elevated myocardial infarction) Anxiety Asymmetrical thyroid CHF (congestive heart failure) COVID-19 Renal cyst, acquired, left Obstruction, uropathy Thrombosed external hemorrhoid COPD (chronic obstructive pulmonary disease) Atrial fibrillation Gout Asthma Alcohol abuse Nephrolithiasis Knee arthropathy Osteoarthritis Diabetes Arthritis Hypertension Surgical History Hx of bilateral cataract extraction Hx of hysterectomy Hx of lithotripsy History of total right knee replacement History of esophagogastroduodenoscopy (EGD) Hx of cystoscopy Hx of colonoscopy History of total knee arthroplasty Social History Household Members: None Household Members Other:: DAUGHTER Housing: Apartment Housing Other:: low income housing Do you presently have visiting nurse or other home services: Yes ([employer]) Unable to assess alcohol history related to: Unknown Alcohol intake: unknown Patient Tobacco Use Status: Never used Tobacco e-Cigarette/Vaping Use: Never Used Second Hand Smoke Exposure: No Advance Directives Date on File: 09/07/22 service: No Current occupational status: disabled Review of Systems Const Denies weight gain and Denies weight loss ENT Reports no additional complaints, Denies dysphagia and Denies odynophagia Card Reports no additional complaints Resp Reports no additional complaints GI Denies abdominal pain, Denies belching, Denies melena, Denies bloating, Reports constipation, Denies dysphagia, Denies excessive flatus, Denies dyspepsia, Denies heartburn, Denies diarrhea, Denies loose stools, Denies nausea, Denies odynophagia and Denies vomiting Reports no additional complaints Musc Reports no additional complaints Neuro Reports no additional complaints Psych Reports no additional complaints Endo Reports no additional complaints Physical Exam Vital Signs: Last Vital Signs Pulse 66 04/21/24 11:18 BP 138/74 04/21/24 11:18 Pulse Ox 97 04/21/24 11:18 Oxygen Delivery Method Room Air 04/21/24 11:18 BMI result Body Mass Index 33.2 Const General: healthy appearing and no acute distress Nutritional Appearance: obese Orientation/consciousness: patient oriented x3 Resp Effort & Inspection: normal respiratory effort, able to speak in complete sentences, no tracheal deviation and symmetric chest movement Auscultation: clear to auscultation bilaterally Cardio Rate: regular rate GI Inspection: Yes normal to inspection, No distended and Yes obesity Palpation (GI): Soft to palpation, not firm, nontender and No hepatosplenomegaly present Auscultation: normal bowel sounds General: Yes no CVA tenderness Back/Spine/Pelvis Back: no CVA tenderness Skin General skin exam: elasticity normal, turgor normal and dry skin Neuro General: patient oriented x3 Extrem Right lower extremity: hip/thigh (R hip tenderness) Psych Appearance: grossly normal Mental Status: mental status grossly normal Assessment & Plan Assessment & Plan (1) Chronic idiopathic constipation: Code(s): K59.04 - Chronic idiopathic constipation (2) Postprandial abdominal bloating: Code(s): R14.0 - Abdominal distension (gaseous) (3) GERD (gastroesophageal reflux disease): Code(s): K21.9 - Gastro-esophageal reflux disease without esophagitis Qualifiers: Esophagitis presence: esophagitis presence not specified Qualified Code(s): K21.9 - Gastro-esophageal reflux disease without esophagitis Plan Patient can continue Colace daily. Continue fiber supplements. Patient will start taking Dulcolax to help her move her bowels better. Avoid dietary triggers and late night snacking. Staying upright for minimum 3 hours after meals discussed with patient. Continue famotidine. Follow-up in 3 months, sooner on as needed basis. She is agreeable to this plan and verbalizes understanding of instructions. She was given the opportunity to ask questions and all questions answered. Thank you for allowing me to participate in her care Medications: New bisacodyl (Dulcolax (bisacodyl)) 10 mg (2 x 5 mg) PO BEDTIME 180 tabs 4RF calcium polycarbophil (FiberCon) 625 mg PO DAILY 90 tabs 3RF Changed From docusate sodium 100 mg PO BID To docusate sodium 100 mg PO DAILY 90 caps 3RF Coding Level of Care Code Est Pt Level 3 (02277) Diagnoses Chronic idiopathic constipation K59.04 Postprandial abdominal bloating R14.0 Gastroesophageal reflux disease, unspecified whether esophagitis present K21.9 Esophagitis presence: esophagitis presence not specified Time Spent (min) 30 Comment 20 minutes spent with patient and additional 10 minutes spent reviewing her records
[2024-04-21 11:18] VITALS: BP 138/74; PULSE 66; O2SAT 97; BMI 33.2
== END 2024-04-21 12:00 | disposition home or self-care (01) ==
PROVIDERS: PCP Student in an Organized Health Care Education/Training Program; Visit Provider Nurse Practitioner Family
DX: K59.04 Chronic idiopathic constipation (principal); R14.0 Abdominal distension (gaseous); K21.9 Gastro-esophageal reflux disease without esophagitis
CPT/HCPCS: 99213

== ENCOUNTER → 2024-04-21 11:07 | Outpatient (BNVA) | payer OTHER, SELFPAY | PROVIDERS: PCP Student in an Organized Health Care Education/Training Program; Visit Provider Nurse Practitioner Family | DX: K59.04 Chronic idiopathic constipation (principal); K21.9 Gastro-esophageal reflux disease without esophagitis; R14.0 Abdominal distension (gaseous) | CPT/HCPCS: 99212 ==

== ENCOUNTER 2024-05-06 12:09 | Outpatient (REF) | payer OTHER, SELFPAY ==
--- NOTE | ~2024-05-06 | XR_ITS ---
EXAMINATION: XR FOOT, LEFT CLINICAL INFORMATION: Pain. Trauma. COMPARISON: Left foot x-ray October 2022 TECHNIQUE: AP, lateral, and oblique views of the left foot. FINDINGS: There is an acute oblique minimally displaced fracture of the distal shaft of the fifth metatarsal bone. No other fracture seen. Mild degenerative changes in the midfoot. There is soft tissue swelling adjacent to the fracture. There are calcaneal spurs. XR/XR foot LT min 3V IMPRESSION: Acute fracture of the distal shaft of the fifth metatarsal bone. Findings a be communicated by the [facility] workflow cabin outfitter
--- NOTE | ~2024-05-06 | XR_ITS ---
EXAMINATION: XR CHEST CLINICAL INFORMATION: Productive cough COMPARISON: Previous chest x-ray most recent March 2024 TECHNIQUE: 2 views of the chest were obtained. FINDINGS: The cardiac and mediastinal contours are stable. There is central bronchial wall thickening suggestive of bronchitis or airways disease. Lungs are otherwise clear. No pleural effusion or pneumothorax. Degenerative changes of the spine. XR/XR chest 2V IMPRESSION: Central bronchial wall thickening suggestive of asthma or bronchitis. No evidence of pneumonia.
== END 2024-05-06 12:10 | disposition home or self-care (01) ==
LOC: HO.HHCX 12:09
PROVIDERS: Visit Provider Emergency Medicine
DX: Z13.89 Encounter for screening for other disorder (principal)
CPT/HCPCS: 71046; 73630

== ENCOUNTER 2024-05-06 18:26 | Outpatient (REF) | payer OTHER, SELFPAY ==
[2024-05-06 19:29] LABS: Influenza A PCR NEGATIVE (Negative); Influenza B PCR NEGATIVE (Negative); Resp Syncy Virus RNA Qual PCR NEGATIVE (Negative); SARS COV2 PCR INHOUSE NEGATIVE (Negative)
== END 2024-05-06 18:27 | disposition home or self-care (01) ==
LOC: HO.HHCLNP 18:26
PROVIDERS: Visit Provider Emergency Medicine
DX: J43.9 Emphysema, unspecified (principal); M79.672 Pain in left foot; R82.90 Unspecified abnormal findings in urine; R05.9 Cough, unspecified
CPT/HCPCS: 0241U; 71046; 73630; 87086

== ENCOUNTER 2024-05-16 10:47 | Outpatient (AMB) | payer OTHER, SELFPAY ==
--- NOTE | 2024-05-16 10:47 | MHC.OFFVIS ---
Intake Visit Reasons: gross hematuria/renal calculi/stent? Intake Note: Patient is present for gross hematuria/renal calculi/stent Urology Medication:mybertriq,pyridoxine Antibiotic Allergy:none Blood Thinner:cinthya LOT: [id number] EXP: 12/24/2026 Clinical Science Consultant Required: No Allergies montelukast [Singulair] Allergy (Unknown, Verified 05/16/24 10:49) itching/rash HPI Comments Details: 05/16/24--Roseanna is a 79-year-old female who presents today to the office for a follow-up. 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 Last stent exchange was on 11/10/2023. The patient had a CT scan on 04/02/2024, the right ureteral stent was in good position no hydronephrosis. Left kidney extra renal pelvis and lower pole stone measuring up to 13 mm. The patient has had complications with the ureteral stent, as she is on anticoagulants, recurrent gross hematuria, with anemia. Discussed remove stent today and fu with renal US in 3 months. Right ureteral stent removed without difficulty. Review of chart: 08/27/23? She is followed today for renal scan results. She wants to have the stent removed. The patient is a Pakistani speaking female. Certified test technician was present during the visit. She was last seen by me on 07/23/23 for chronic kidney disease. Lasix renal scan was ordered, and urine for culture was sent during that time. Myrbetriq was discontinued. She was advised to follow-up after lasix renal scan at that time. The patient is not tolerating the stent well and states it is very uncomfortable for her. I discussed with the patient the in order to protect her kidney function, it is important to keep the stent. I have discussed with her that in the past when the stent was removed she ended up back in the hospital in [facility]. I reviewed the renal scan results from 08/20/23 revealed that with the stent in place the right kidney has normal perfusion. Review of testing: I reviewed the chemistry results from 06/19/2023 revealed BUN 28, and Creatinine was 1.43. I reviewed the abdomen/pelvis CT results from 05/27/2023 revealed severe right hydroureteronephrosis with transition point at the right ureteropelvic junction. Right perinephric stranding. Nonobstructing left renal calculi. No hydronephrosis. Multiseptated complex posterior midpole left renal cyst. Bosniak 2F classification. Small right pleural effusion. I reviewed the urine culture results from 05/29/2023 which came back negative for bacterial growth. [facility] Medical History (Updated 06/15/24 @ 15:45 by Colby Cadena MD) Persistent atrial fibrillation Elevated liver enzymes NSTEMI (non-ST elevated myocardial infarction) Anxiety Asymmetrical thyroid CHF (congestive heart failure) COVID-19 Renal cyst, acquired, left Obstruction, uropathy Thrombosed external hemorrhoid COPD (chronic obstructive pulmonary disease) Atrial fibrillation Gout Asthma Alcohol abuse Nephrolithiasis Knee arthropathy Osteoarthritis Diabetes Arthritis Hypertension Surgical History Hx of bilateral cataract extraction Hx of hysterectomy Hx of lithotripsy History of total right knee replacement History of esophagogastroduodenoscopy (EGD) Hx of cystoscopy Hx of colonoscopy History of total knee arthroplasty Social History Household Members: None Household Members Other:: DAUGHTER Housing: Apartment Housing Other:: low income housing Do you presently have 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) Unable to assess alcohol history related to: Unknown Alcohol intake: unknown Patient Tobacco Use Status: Never used Tobacco e-Cigarette/Vaping Use: Never Used Second Hand Smoke Exposure: No Advance Directives Date on File: 09/07/22 service: No Current occupational status: disabled Review of Systems Const All systems reviewed & are unremarkable except as noted in HPI and below Reports no additional complaints Eyes Reports no additional complaints ENT Reports no additional complaints Card Reports no additional complaints Resp Reports no additional complaints GI Reports no additional complaints Reports as per HPI Musc Reports no additional complaints Skin/Breast Reports system reviewed and no additional complaints, except as documented Neuro Reports no additional complaints Psych Reports no additional complaints Endo Reports no additional complaints Tone/Lymph Reports no additional complaints Aller/Immun Reports no additional complaints Office Procedures Bladder/Catheter Procedure Details: 14 fr straight catheter to obtain urine sample per Dr. Liriano for culture to be sent [id number] Bladder Catheter Procedure code (CPT) selection complete Cystoscopy Consent Discussed risk and benefit or proposed procedure with the patient. Information consent for procedure given to the patient. Discussed technical aspects, risks, benefits and alternatives in full. Addressed all of the patient's questions and concerns regarding the procedure. The patient demonstrated knowledge and understanding. They wish to proceed with this procedure. Preparation The patient was prepped in the usual manner. A linux systems engineer was present and in the room. Genitalia was prepped with betadine solution in a sterile manner. Lidocaine Jelly 2% was placed into the urethra and 16Fr flexible Olympus cystoscope was inserted into the meatus after adequate lubrication. Procedure Time out per protocol performed. Bladder Inspection Cystoscopy findings: mild edema ureteral orifice which is expected, distal end of ureteral stent visualized. The grasping forceps were used and the stent was removed without difficulty. [id number] with stent removal DISPOSABLE SCOPE URO-G FLEXIBLE SCOPE Procedure code (CPT) selection complete Office Meds lidocaine HCl 2 % mucosal jelly in applicator Performing Provider: Jacquie Mcgraw MD [place] [facility] [facility] Administered by: Camilo Quinones LPN on 05/16/24 11:25 Dose Route Admin Location Dispensed Lot Number Expiration Date [facility] Event Crew Technician 10 mL intra-urethral 10 mL naproxen 500 mg tablet Performing Provider: Jacquie Mcgraw MD [place]forming [place] [facility] [place] [facility] Administered by: Camilo Quinones LPN on 05/16/24 11:25 Dose Route Admin Location Dispensed Lot Number Expiration Date [place] Event Crew Technician 500 mg PO 1 tab ciprofloxacin HCl 500 mg tablet Performing Provider: Jacquie Mcgraw MD [place]forming [place] [facility] [place] [facility] Administered by: Camilo Quinones LPN on 05/16/24 11:25 Dose Route Admin Location Dispensed Lot Number Expiration Date [place] Event Crew Technician 500 mg PO 1 tab Results AMB Urinalysis, Automated UA Leukoctes 125 Rebel/uL Last Edit by ANANYA Dunne on 05/16/24 11:15 UA Nitrite Negative Last Edit by ANANYA Dunne on 05/16/24 11:15 UA Urobilinogen 0.2 mg/dL Last Edit by ANANYA Dunne on 05/16/24 11:15 UA Protein 100 mg/dL Last Edit by ANANYA Dunne on 05/16/24 11:15 UA pH 6.0 Last Edit by ANANYA Dunne on 05/16/24 11:15 UA Blood 200 Rio/uL Last Edit by ANANYA Dunne on 05/16/24 11:15 UA Specific [place] 1.020 Last Edit by ANANYA Dunne on 05/16/24 11:15 UA Ketone Negative Last Edit by ANANYA Dunne on 05/16/24 11:15 UA Bilirubin 1 mg/dL Last Edit by ANANYA Dunne on 05/16/24 11:15 UA Glucose 0 mg/dL Last Edit by ANANYA Dunne on 05/16/24 11:15 Results Reviewed Results Reviewed: Laboratory Last Values Urine pH (Auto) 6.0 05/16/24 11:15 Specific [place] (Auto) 1.020 05/16/24 11:15 Urine Protein (Auto) 100 mg/dL 05/16/24 11:15 Glucose (UA)(Auto) 0 mg/dL 05/16/24 11:15 Urine Ketones (Auto) Negative 05/16/24 11:15 Urine Blood (Auto) 200 Rio/uL 05/16/24 11:15 Urine Nitrite (Auto) Negative 05/16/24 11:15 Urine Bilirubin (Auto) 1 mg/dL 05/16/24 11:15 Urine Urobilinogen (Auto) 0.2 mg/dL 05/16/24 11:15 Leukocyte Esterase (Auto) 125 Rebel/uL 05/16/24 11:15 Assessment & Plan Assessment & Plan (1) Obstruction of right ureteropelvic junction (UPJ): Code(s): N13.5 - Crossing vessel and stricture of ureter without hydronephrosis Category: Medical (2) Chronic kidney disease: Code(s): N18.9 - Chronic kidney disease, unspecified Category: Medical (3) Nephrolithiasis: Code(s): N20.0 - Calculus of kidney Category: Medical Plan FU renal US in 3 months Orders: Orders AMB Bladder/Catheter Procedure 05/16/24 N13.5 - Crossing vessel and stricture of ureter without hydronephrosis, N18.9 - Chronic kidney disease, unspecified, N20.0 - Calculus of kidney AMB Urinalysis Automated 05/16/24 Z13.9 - Encounter for screening, unspecified AMB Cystoscopy 05/16/24 N13.5 - Crossing vessel and stricture of ureter without hydronephrosis, N18.9 - Chronic kidney disease, unspecified, N20.0 - Calculus of kidney Coding Level of Care Code Procedure Only Diagnoses Obstruction of right ureteropelvic junction (UPJ) N13.5 Chronic kidney disease N18.9 Nephrolithiasis N20.0 CPT Codes Bladder/Catheter Procedure - CPT: 53707-[id number] Bladder Catheter ([id number]) Cystoscopy - CPT: 69494-Oilhizdpdn with stent removal ([id number])
== END 2024-05-16 12:19 | disposition home or self-care (01) ==
PROVIDERS: Visit Provider Urology
DX: N13.5 Crossing vessel and stricture of ureter without hydronephrosis (principal); N18.9 Chronic kidney disease, unspecified; N20.0 Calculus of kidney; Z96.0 Presence of urogenital implants; Z13.9 Encounter for screening, unspecified
CPT/HCPCS: 52310

== ENCOUNTER → 2024-05-16 10:47 | Outpatient (BNVA) | payer OTHER, SELFPAY | PROVIDERS: Visit Provider Urology | DX: N13.5 Crossing vessel and stricture of ureter without hydronephrosis (principal); N18.9 Chronic kidney disease, unspecified; N20.0 Calculus of kidney | CPT/HCPCS: 52310; 81003 ==

== ENCOUNTER 2024-05-19 10:51 | Outpatient (AMB) | payer OTHER, SELFPAY ==
--- NOTE | 2024-05-19 11:12 | MHC.OFFVIS ---
Intake Visit Reasons: FC- Left 5th metatarsal fx Intake Note: Roseanna is an 79 year old female who presents today for a fracture care visit for a left 5th Metatarsal fracture that occoured about 2 weeks ago Allergies montelukast [Singulair] Allergy (Unknown, Verified 05/16/24 10:49) itching/rash HPI HPI FC- Left 5th metatarsal fx: Details: Roseanna is an 79 year old female who presents today for a fracture care visit for a left 5th Metatarsal fracture that occoured about 2 weeks ago. She is walking with a cane and has pain with ambulation. [facility] Medical History Elevated liver enzymes Persistent atrial fibrillation NSTEMI (non-ST elevated myocardial infarction) Anxiety Asymmetrical thyroid CHF (congestive heart failure) COVID-19 Renal cyst, acquired, left Obstruction, uropathy Thrombosed external hemorrhoid COPD (chronic obstructive pulmonary disease) Atrial fibrillation Gout Asthma Alcohol abuse Nephrolithiasis Knee arthropathy Osteoarthritis Diabetes Arthritis Hypertension Surgical History Hx of bilateral cataract extraction Hx of hysterectomy Hx of lithotripsy History of total right knee replacement History of esophagogastroduodenoscopy (EGD) Hx of cystoscopy Hx of colonoscopy History of total knee arthroplasty Social History Household Members: None Household Members Other:: DAUGHTER Housing: Apartment Housing Other:: low income housing Do you presently have 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 Tenderness to palpation along the course of the left 5th metatarsal. Results Reviewed Results Reviewed: I personally reviewed relevant radiographs. There is a fracture along the shaft of the 5th metatarsal that is mildly displaced. Assessment & Plan Assessment & Plan (1) Fracture of fifth metatarsal bone: Code(s): S92.353A - Displaced fracture of fifth metatarsal bone, unspecified foot, initial encounter for closed fracture Category: Medical Plan: This is an 79-year-old woman with a minimally displaced 5th metatarsal shaft fracture. She has mild pain. I recommend that she ambulate with a postop shoe for proximally 2-3 weeks depending on her pain and then transition to street shoes when tolerated. She can follow up as needed. I discussed with the parent and her caregiver. They both expressed understanding. Orders: Orders XR foot LT min 3V 05/19/24 M79.673 - Pain in unspecified foot Coding Level of Care Code New Pt Level 4 (61215) Diagnoses Fracture of fifth metatarsal bone S92.353A
== END 2024-05-19 11:28 | disposition home or self-care (01) ==
PROVIDERS: Visit Provider Orthopaedic Surgery
DX: S92.353A Displaced fracture of fifth metatarsal bone, unspecified foot, initial encounter for closed fracture (principal)
CPT/HCPCS: 99214

== ENCOUNTER 2024-05-19 13:02 | Outpatient (REF) | payer OTHER, SELFPAY ==
--- NOTE | ~2024-05-19 | XR_ITS ---
EXAMINATION: XR FOOT, LEFT CLINICAL INFORMATION: Pain in unspecified foot. COMPARISON: May 06, 2024 TECHNIQUE: AP, lateral, and oblique views of the left foot. FINDINGS: Redemonstration of oblique minimally displaced fracture of the distal shaft of the fifth metatarsal bone. There is evidence of some interval bridging callus formation. Diffuse demineralization. Mild degenerative changes in the first metatarsophalangeal joint and midfoot. Calcaneal spurs. Soft tissue swelling adjacent to the fracture. XR/XR foot LT min 3V IMPRESSION: Redemonstration of oblique minimally displaced fracture of the distal shaft of the fifth metatarsal bone. There is evidence of some interval bridging callus formation.
== END 2024-05-19 13:03 | disposition home or self-care (01) ==
LOC: HO.HOSX 13:02
PROVIDERS: Visit Provider Physician Assistant
DX: S92.352A Displaced fracture of fifth metatarsal bone, left foot, initial encounter for closed fracture (principal)
CPT/HCPCS: 73630; 99212

== ENCOUNTER 2024-05-31 13:16 | Outpatient (AMB) | payer OTHER, SELFPAY ==
[2024-05-31 13:18] VITALS: BP 137/72; PULSE 64; O2SAT 96; BMI 35.5
--- NOTE | 2024-05-31 13:18 | A.OFFVIS_ITS ---
Vital Signs 05/31/24 13:18 Height 5 ft 2 in Weight 194 lb BMI 35.5 BP 137/72 Blood Pressure Location Rt brachial Position Sitting Pulse 64 Pulse Source Doppler Pulse Oximetry (%) 96 Oxygen Delivery Method Room Air Intake Visit Reasons: Asthma Allergies montelukast [Singulair] Allergy (Unknown, Verified 05/16/24 10:49) itching/rash HPI HPI Asthma: Details: 79-year-old lady, nonsmoker, with underlying history of AFib, CAD, combined systolic and diastolic dysfunction now followed for pulmonary component to her dyspnea.?She continues on her Advair and albuterol MDI with excellent control of her symptoms. After her recent hospitalization for heart failure/AFib in March of 2024 patient had a chronic cough productive of whitish sputum. She was treated with a course of doxycycline and prednisone with no significant changes. [facility] Medical History Elevated liver enzymes Persistent atrial fibrillation NSTEMI (non-ST elevated myocardial infarction) Anxiety Asymmetrical thyroid CHF (congestive heart failure) COVID-19 Renal cyst, acquired, left Obstruction, uropathy Thrombosed external hemorrhoid COPD (chronic obstructive pulmonary disease) Atrial fibrillation Gout Asthma Alcohol abuse Nephrolithiasis Knee arthropathy Osteoarthritis Diabetes Arthritis Hypertension Surgical History Hx of bilateral cataract extraction Hx of hysterectomy Hx of lithotripsy History of total right knee replacement History of esophagogastroduodenoscopy (EGD) Hx of cystoscopy Hx of colonoscopy History of total knee arthroplasty Social History Household Members: None Household Members Other:: DAUGHTER Housing: Apartment Housing Other:: low income housing Do you presently have 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) Unable to assess alcohol history related to: Unknown Alcohol intake: unknown Patient Tobacco Use Status: Never used Tobacco e-Cigarette/Vaping Use: Never Used Second Hand Smoke Exposure: No Advance Directives Date on File: 09/07/22 service: No Current occupational status: disabled Review of Systems Const Denies daytime sleepiness, Denies excessive sweating, Denies fatigue, Denies fever(s), Denies lethargy, Denies malaise, Denies night sweats, Denies snoring and Denies weight loss Eyes Denies blurry vision and Denies itchy eyes ENT Denies nasal congestion, Denies post nasal drip, Denies sinus pain, Denies sinus pressure and Denies other ( Thrush) Card Denies chest pain, Denies pedal edema, Denies dyspnea, Denies orthopnea and Denies paroxysmal nocturnal dyspnea Resp Reports cough, Denies hemoptysis, Reports excessive phlegm production, Denies dyspnea, Denies snoring and Denies wheezing GI Denies abdominal pain and Denies heartburn Musc Denies myalgias, Denies arthralgias and Denies joint swelling Skin/Breast Denies rash Neuro Denies memory loss and Denies seizure-like activity Psych Denies abnormal sleep pattern, Denies anxiety and Denies memory loss Endo Denies excessive sweating, Denies fatigue and Denies heat intolerance Tone/Lymph Denies easy bruising Aller/Immun Denies itchy eyes, Denies seasonal rhinorrhea and Denies wheezing Physical Exam Vital Signs: Last Vital Signs Pulse 64 05/31/24 13:18 BP 137/72 05/31/24 13:18 Pulse Ox 96 05/31/24 13:18 Oxygen Delivery Method Room Air 05/31/24 13:18 BMI result Body Mass Index 35.5 Const General: no acute distress and alert Nutritional Appearance: obese Orientation/consciousness: Other orientation findings ( oriented) HEENT Head: Yes atraumatic Eyes General: appearance normal, both eyes and all related structures Sclerae: sclerae normal EOM: EOMs intact bilaterally Neck Neck: Yes supple Lymphatic: no lymphadenopathy noted Resp Effort & Inspection: normal respiratory effort and no use of accessory muscles Auscultation: clear to auscultation bilaterally Cardio Rate: regular rate Rhythm: regular rhythm Heart sounds: no gallops, no murmurs and no rubs Skin General skin exam: other ( warm) Extrem General: No clubbing, No cyanosis and No edema Assessment & Plan Assessment & Plan (1) Asthma: Code(s): J45.909 - Unspecified asthma, uncomplicated Category: Medical Plan: Well controlled on Advair and albuterol MDI. Continue current regimen. (2) Cough: Code(s): R05.9 - Cough, unspecified Category: Medical Plan: With significant white sputum production. Poor response to initial treatment with a course of prednisone and doxycycline. Will obtain chest x-ray and sputum culture to guide further antibiotic therapy. Will start on empiric codeine syrup for alleviation of symptoms. Orders: Orders XR chest 2V Today R05.9 - Cough, unspecified Sputum Cult + Gram stain Today R05.9 - Cough, unspecified Medications: New codeine-guaifenesin 10-100 mg/5 mL 10 mL PO Q4-6H PRN 473 mL 0RF cough R05.9 - Cough, unspecified Coding Level of Care Code Est Pt Level 4 (87033) Diagnoses Asthma J45.909 Cough R05.9
== END 2024-05-31 13:42 | disposition home or self-care (01) ==
PROVIDERS: Visit Provider Internal Medicine Pulmonary Disease
DX: J45.909 Unspecified asthma, uncomplicated (principal); R05.9 Cough, unspecified
CPT/HCPCS: 99214

== ENCOUNTER 2024-05-31 13:16 | Outpatient (REF) | payer OTHER, SELFPAY ==
--- NOTE | ~2024-05-31 | XR_ITS ---
EXAMINATION: XR CHEST CLINICAL INFORMATION: Cough. COMPARISON: May 06, 2024. TECHNIQUE: PA and lateral views of the chest were obtained. FINDINGS: Nonspecific, mild, diffuse interstitial prominence and mild bronchial wall thickening appears grossly similar to mildly worse compared with May 06, 2024, allowing for differences in technique. No focal infiltrate, effusion, pneumothorax is appreciated. Mildly enlarged cardiac silhouette, unchanged. Mild degenerative changes of the spine. XR/XR chest 2V IMPRESSION: Findings as above.
[2024-05-31 15:32] LABS: Hematocrit 35.1 % (37.0-47.0); Mean Corpuscular HGB Conc 31.3 g/dl (31.0-35.0); Mean Corpuscular Hemoglobin 28.4 pg (27.0-33.0); Mean Corpuscular Volume 90.5 fL (80.0-98.0); Mean Platelet Volume 10.2 fL (9.4-12.3); Platelet Count 254 X10*3/uL (160-400); Red Blood Count 3.88 X10*6/uL (4.20-5.50); Red Cell Distribution Width 13.5 % (11.0-16.0); White Blood Count 4.7 X10*3/uL (4.8-10.8)
[2024-05-31 16:03] LABS: B Type Natriuretic Peptide 369 pg/mL (<100)
[2024-05-31 16:04] LABS: Anion Gap 16 (12-20); Blood Urea Nitrogen 28 mg/dL (9-16); Calcium 10.3 mg/dL (8.4-10.2); Carbon Dioxide 25 mmol/L (22-29); Chloride 102 mmol/L (96-108); Estimated Glomerular Filt Rate 43; Glucose Random 123 mg/dL (60-115); Magnesium 2.2 mg/dL (1.6-2.6); Potassium 4.1 mmol/L (3.3-5.1); Sodium 139 mmol/L (135-145)
[2024-05-31 16:06] LABS: Gamma Glutamyl Transpeptidase 69 U/L (7-33)
== END 2024-05-31 13:17 | disposition home or self-care (01) ==
LOC: HO.XRAY 13:16
PROVIDERS: Internal Medicine Cardiovascular Disease; Student in an Organized Health Care Education/Training Program; Urology; Visit Provider Internal Medicine Pulmonary Disease
DX: J45.909 Unspecified asthma, uncomplicated (principal); R05.9 Cough, unspecified; R79.89 Other specified abnormal findings of blood chemistry; I50.9 Heart failure, unspecified
CPT/HCPCS: 36415; 71046; 80048; 82977; 83735; 83880; 85027; 87070; 87205; 99212

== ENCOUNTER 2024-06-07 16:30 | Outpatient (REF) | payer OTHER, SELFPAY ==
--- NOTE | ~2024-06-07 | CT_ITS ---
EXAMINATION: CT ABDOMEN AND PELVIS WITHOUT CONTRAST CLINICAL INFORMATION: Right ureter stent COMPARISON: CT abdomen and pelvis 04/02/2024 TECHNIQUE: Multidetector volumetric imaging was performed from the superior aspect of the liver through the pubic symphysis. Sagittal and coronal reformatted images were obtained on the technologist's workstation. This CT examination was performed using dose optimization techniques as appropriate, variously including the following: *Automated exposure control *Adjustment of mA and/or kV according to patient size (this includes techniques or standardized protocols for targeted exams where dose is matched to indication/reason for exam; i.e. extremities or head) *Use of iterative reconstruction technique DLP: 555 mGy-cm FINDINGS: LUNG BASES: The visualized lung bases are unremarkable. LIVER, GALLBLADDER, AND BILIARY TREE: The liver is normal in size, shape, and attenuation. No focal hepatic lesion or biliary ductal dilatation is present. The gallbladder is unremarkable with no evidence of radiopaque gallstones, gallbladder wall thickening, or obvious pericholecystic inflammatory changes. PANCREAS: Unremarkable. SPLEEN: Unremarkable. ADRENAL GLANDS: Unremarkable. KIDNEYS AND URETERS: Mild renal atrophy bilaterally, greater on the left. No hydronephrosis. Left lower pole renal stone measuring 1 cm in diameter. BLADDER: Unremarkable. GASTROINTESTINAL TRACT: Severe colonic diverticulosis. No diverticulitis. The large and small bowel are normal in caliber. ABDOMINAL WALL: No significant hernia is appreciated. LYMPH NODES: Normal. VASCULAR: Unremarkable. PELVIC VISCERA: Unremarkable. OSSEOUS STRUCTURES: Unremarkable. CT/CT abdomen pelvis wo IV con IMPRESSION: Left lower pole renal stone measuring 1 cm. No hydronephrosis. Fleischner guidelines were followed.
== END 2024-06-07 16:31 | disposition home or self-care (01) ==
LOC: HO.CT 16:30
PROVIDERS: PCP Emergency Medicine; Visit Provider Emergency Medicine
DX: R10.9 Unspecified abdominal pain (principal); R31.9 Hematuria, unspecified
CPT/HCPCS: 74176

== ENCOUNTER 2024-06-15 15:22 | Outpatient (AMB) | payer OTHER, SELFPAY ==
[2024-06-15 15:24] VITALS: BP 120/70; PULSE 61; BMI 34.7
--- NOTE | 2024-06-15 15:24 | A.OFFVIS_ITS ---
Vital Signs 06/15/24 15:24 Height 5 ft 2 in Weight 189 lb 9.561 oz BMI 34.7 BP 120/70 Blood Pressure Location Lt brachial Position Sitting Pulse 61 Pulse Source Monitor Intake Visit Reasons: Follow up Intake Note: f/up Product Designer Required: Yes Product Designer Services: Product Designer Present Product Designer Name: moris/daughter Accompanied by: Daughter Allergies montelukast [Singulair] Allergy (Unknown, Verified 05/16/24 10:49) itching/rash Medication List - Last Reconciled 06/15/24 by Colby Cadena MD acetaminophen 325 mg PO Q6H PRN albuterol sulfate 1 amp inhalation Q6H PRN albuterol sulfate 90 mcg/actuation (Ventolin HFA) 2 puffs inhalation Q4-6H PRN amlodipine 5 mg PO DAILY apixaban (Eliquis) 5 mg PO BID atorvastatin 80 mg PO DAILY bisacodyl (Dulcolax (bisacodyl)) 10 mg (2 x 5 mg) PO BEDTIME blood sugar diagnostic ([email or web address] Verio test strips) blood-glucose meter ([email or web address] Verio Flex Meter) calcium citrate-vitamin D3 315 mg-6.25 mcg (250 unit) 1 tab PO BID calcium polycarbophil (FiberCon) 625 mg PO DAILY cetirizine 10 mg PO DAILY PRN cholecalciferol (vitamin D3) (Vitamin D3) 50 mcg PO DAILY clopidogrel 75 mg PO DAILY codeine-guaifenesin 10-100 mg/5 mL 10 mL PO Q4-6H PRN docusate sodium 100 mg PO DAILY duloxetine 30 mg PO DAILY famotidine 20 mg PO BID ferrous gluconate 324 mg PO QAM fluticasone propion-salmeterol 250-50 mcg/dose (Advair Diskus) 1 puff inhalation BID PRN furosemide 40 mg PO DAILY hydroxyzine HCl 10 mg PO Q12H PRN lancets (Spayeeuch Delica Plus Lancet) lidocaine 5% 1 patch topical DAILY PRN metformin 850 mg PO DAILY metoprolol succinate ER (Toprol XL) 50 mg PO DAILY mirabegron ER (Myrbetriq) 50 mg PO DAILY pyridoxine (vitamin B6) 100 mg PO DAILY simethicone 80 mg PO QID PRN tramadol 50 mg PO Q6H PRN trazodone 100 mg PO BEDTIME triamcinolone acetonide 0.1% 1 topical BID HPI Comments Details: 79-year-old female who is presenting to clinic after recent cardiac catheterization performed at [facility]. She came to [facility] and was diagnosed with congestive heart failure. At that time she also complained of some chest pains. The chest pains appear to be atypical but she had diffuse T-wave inversions anterolateral leads with mildly elevated troponin levels and ruled in for NSTEMI. She was transferred for cardiac catheterization and it was noticed that she had severe mid LAD stenosis. This was treated with a drug-eluting stent. Subsequent to that she was in the hospital because there was some concern about bradycardia and it appears her diltiazem was stopped at that stage. She also was taken off the aspirin and was discharged home with apixaban and clopidogrel. She previously had atrial fibrillation and was supposed to be on Eliquis. She was accompanied by her daughter. The daughter reported that 5 days ago the patient complained of some shortness of breath and had to step out of the house and went to the porch to get some air. She also has orthopnea. She has peripheral edema. She is taking her medications regularly and has a pill box. No bleeding concerns. 06/24/23: She returns for follow-up. She had echocardiography yesterday showed low normal ejection fraction and moderate to severe mitral regurgitation. The daughter said that the patient has been experiencing some orthopnea at night time. She has been taking medication regularly. Denying any chest discomfort or significant shortness of breath with activity. She is not very active though. She had some blood in her urine due to ureteric stents but nothing gross recently. 06/15/2024: She is here for follow-up. She is feeling good. Denying any shortness of breath or chest discomfort. No bleeding concerns. Taking Eliquis and Plavix at this point. Well rate controlled for atrial fibrillation at this point metoprolol XL 50 mg daily. Blood pressure 120/70. [facility] Medical History (Updated 06/15/24 @ 15:45 by Colby Cadena MD) Persistent atrial fibrillation Elevated liver enzymes NSTEMI (non-ST elevated myocardial infarction) Anxiety Asymmetrical thyroid CHF (congestive heart failure) COVID-19 Renal cyst, acquired, left Obstruction, uropathy Thrombosed external hemorrhoid COPD (chronic obstructive pulmonary disease) Atrial fibrillation Gout Asthma Alcohol abuse Nephrolithiasis Knee arthropathy Osteoarthritis Diabetes Arthritis Hypertension Surgical History Hx of bilateral cataract extraction Hx of hysterectomy Hx of lithotripsy History of total right knee replacement History of esophagogastroduodenoscopy (EGD) Hx of cystoscopy Hx of colonoscopy History of total knee arthroplasty Social History Household Members: None Household Members Other:: DAUGHTER Housing: Apartment Housing Other:: low income housing Do you presently have visiting nurse or other home services: Yes ([employer]PORATE DIRECTOR OF H[employer]AN RESOURCES) Unable to assess alcohol history related to: Unknown Alcohol intake: unknown Patient Tobacco Use Status: Never used Tobacco e-Cigarette/Vaping Use: Never Used Second Hand Smoke Exposure: No Advance Directives Date on File: 09/07/22 service: No Current occupational status: disabled Review of Systems Const Denies chills, Denies fatigue, Denies fever(s), Denies frequent falls, Denies weakness, Denies weight gain and Denies weight loss ENT Denies dizziness Card Denies chest pain, Denies leg edema, Denies lightheadedness, Denies palpitations, Denies dyspnea and Denies dyspnea on exertion Resp Denies cough, Denies dyspnea and Denies dyspnea on exertion GI Denies hematochezia Musc Denies abnormal gait, Denies muscle weakness, Denies numbness, Denies radiating pain into limb and Denies tingling Neuro Denies abnormal gait, Denies dizziness, Denies frequent falls, Denies numbness, Denies tingling and Denies weakness Endo Denies fatigue and Denies palpitations Physical Exam Vital Signs: Last Vital Signs Pulse 61 06/15/24 15:24 BP 120/70 06/15/24 15:24 BMI result Body Mass Index 34.7 GENERAL APPEARANCE: in no acute distress. NECK: no carotid bruit, no jugular venous distention. SKIN: no suspicious lesions, warm and dry. HEART: no murmurs, irregular rate and rhythm. LUNGS: clear to auscultation bilaterally. ABDOMEN: soft, nontender. EXTREMITIES: No significant edema. PERIPHERAL PULSES: equal. NEUROLOGIC: No gross deficits, AAO X 3 Office Procedures EKG Details: Atrial fibrillation 61 beats per minute, normal axis, nonspecific T-wave changes, QTC 436 milliseconds. [id number], Complete Assessment & Plan Assessment & Plan (1) Cardiomyopathy: Code(s): I42.9 - Cardiomyopathy, unspecified Category: Medical (2) Persistent atrial fibrillation: Code(s): I48.19 - Other persistent atrial fibrillation Category: Medical (3) Stable angina: Code(s): I20.89 - Other forms of angina pectoris Category: Medical Plan Pleasant 79-year-old female who is here for follow-up. She has known history of coronary disease with previous LAD PCI. She also has persistent atrial fibrillation at this point. We treated her for rate control strategy. She had echocardiography in 06/28/2023 which showed EF of 45-50% with moderate mitral valve regurgitation. More recently in 03/28/2024 she had echocardiography done again which showed EF of 34% and mild RV dysfunction. There was trace mitral regurgitation noted on this study. Clinically she is euvolemic at this point and is denying any symptoms. She is on Toprol-XL and Lasix 40 mg daily. Etiology of cardiomyopathy is currently unclear. Atrial fibrillation is well controlled currently. She is on anticoagulation. Continue same management for now. She will see us back in few months. I will repeat echocardiography at that stage. Thank you for allowing me to participate in the care of your patient. Please feel free to contact me if you have any questions. Coding Level of Care Code Est Pt Level 4 (35280) Diagnoses Cardiomyopathy I42.9 Persistent atrial fibrillation I48.19 Stable angina I20.89 CPT Codes EKG - CPT: 66587-[id number], Complete ([id number])
== END 2024-06-15 15:45 | disposition home or self-care (01) ==
PROVIDERS: PCP Student in an Organized Health Care Education/Training Program; Visit Provider Internal Medicine Cardiovascular Disease
DX: I42.9 Cardiomyopathy, unspecified (principal); I48.19 Other persistent atrial fibrillation; I20.89 Other forms of angina pectoris
CPT/HCPCS: 93010; 99214

== ENCOUNTER → 2024-06-15 15:22 | Outpatient (BNVA) | payer OTHER, SELFPAY | PROVIDERS: PCP Student in an Organized Health Care Education/Training Program; Visit Provider Internal Medicine Cardiovascular Disease | DX: I48.19 Other persistent atrial fibrillation (principal); I20.89 Other forms of angina pectoris; I10 Essential (primary) hypertension; I42.9 Cardiomyopathy, unspecified; Z95.5 Presence of coronary angioplasty implant and graft | CPT/HCPCS: 93005; 99212 ==

== ENCOUNTER 2024-07-13 10:36 | Outpatient (REF) | payer OTHER, SELFPAY ==
--- NOTE | ~2024-07-13 | MM_ITS ---
EXAMINATION: BONE DENSITOMETRY CLINICAL INDICATION: Hyperparathyroidism. COMPARISON: Previous BD dated 05/22/2022 and baseline BD dated 01/18/2008. This is the patient's baseline examination for the forearm radius 33%. TECHNIQUE: Using a agencyQ DXA System (software version: 13.1) manufactured by [employer], dual-energy x-ray absorptiometry was performed of the lumbar spine, left hip and left forearm radius 33%. The images are of good technical quality. Summary results are attached. FINDINGS: LEFT FEMUR, NECK: Current: BMD 0.883 g/cm2, Z-score 0.6, T-score -1.1, osteopenia. Prior: BMD 0.911 g/cm2. Baseline: BMD 0.894 g/cm2. LEFT FEMUR, TOTAL: Current: BMD 0.888 g/cm2, Z-score 0.6, T-score -0.9, normal, 0.2% increase from previous, 17.5% decrease from baseline (<5% change is not significant). Prior: BMD 0.886 g/cm2. Baseline: BMD 1.076 g/cm2. AP SPINE L1-L4: Current: BMD 1.050 g/cm2, Z-score 0.1, T-score -1.1, osteopenia, 0.1% increase from previous, 3.4% decrease from baseline (<5% change is not significant). Prior: BMD 1.049 g/cm2. Baseline: BMD 1.087 g/cm2. LEFT FOREARM RADIUS 33%: BMD 0.741 g/cm2, Z-score 1.2, T-score -1.5, osteopenia. IDENTIFIED RISK FACTORS: Osteoporosis, hyperparathyroidism, recurrent falls, height loss, menopause, hysterectomy. HISTORY OF FRACTURE: None listed. MEDICATIONS: Calcium supplements or multivitamin, vitamin D. MM/XR DEXA appendicular skeleton IMPRESSION: 1. DIAGNOSIS: Osteopenia based on the lowest T-score value of -1.5 in the forearm radius 33% applying World Health Organization criteria. 2. 10-YEAR FRACTURE RISK PREDICTION, FRAX: Major osteoporotic fracture (clinical spine, forearm, hip or shoulder) 6.6%. Hip fracture 1.3%. 3. Treatment Recommendations: NOF guidelines recommend consideration for treatment in postmenopausal women and men age 50 and older presenting with the following: -A hip or vertebral (clinical or morphometric) fracture. -T-score less than or equal to -2.5 at the femoral neck or spine after appropriate evaluation to exclude secondary causes. -Low bone mass at the hip or spine and a 10-year fracture probability by FRAX of greater than or equal to 3% for hip fracture or greater than or equal to 20% for major osteoporotic fracture based on the [place] adapted WHO algorithm. 4. Other Recommendations: All treatment decisions require clinical judgment and consideration of individual patient factors, including patient preferences, comorbidities, previous drug use, risk factors not captured in the FRAX model (e.g. frailty, falls, vitamin D deficiency, increased bone turnover, interval significant decline in bone density) and possible under or overestimation of fracture risk by FRAX. Additional medical evaluation for secondary cause of low bone mineral density may be appropriate. FUTURE SCAN RECOMMENDATION: People with diagnosed cases of osteoporosis or at high risk for fracture should have regular bone mineral density tests. For patients eligible for Medicare, routine testing is allowed once every 2 years. The testing frequency can be increased to one year for patients who have rapidly progressing disease, those who are receiving or discontinuing medical therapy to restore bone mass, or have additional risk factors. Electronically signed by: Hector Weems MD 07/21/2024 09:27 AM EDT
== END 2024-07-13 10:37 | disposition home or self-care (01) ==
LOC: HO.MAMMO 10:36
PROVIDERS: PCP Student in an Organized Health Care Education/Training Program; Visit Provider Internal Medicine Endocrinology, Diabetes & Metabolism
DX: M81.0 Age-related osteoporosis without current pathological fracture (principal)
CPT/HCPCS: 77081

== ENCOUNTER 2024-07-22 14:24 | Outpatient (REF) | payer OTHER, SELFPAY ==
--- NOTE | ~2024-07-22 | XR_ITS ---
EXAMINATION: XR RIBS, BILATERAL CLINICAL INFORMATION: Chest wall pain after fall COMPARISON: None available. TECHNIQUE: PA chest and 3 views of the bilateral ribs were obtained. FINDINGS: Heart and mediastinum within normal limits. No vascular congestion, consolidations or pneumothoraces. No right pleural effusion. Left base atelectasis and minimal costophrenic angle blunting. No displaced fractures. XR/XR ribs BI 3V IMPRESSION: Left base atelectasis, tiny left effusion not excluded. No acute bony pathology. Electronically signed by: Becka Kelly MD 07/26/2024 03:32 PM EDT
--- NOTE | ~2024-07-22 | XR_ITS ---
EXAMINATION: XR CHEST CLINICAL INFORMATION: Chest wall pain after fall, fell forward and pain lower anterior body, patient had difficulty following instructions for breathing, anterior lower rib pain. COMPARISON: Chest of 05/31/2024. TECHNIQUE: 2 views of the chest were obtained. FINDINGS: There is no gross pneumothorax. Lung volumes are low. Stable enlarged cardiomediastinal silhouette. Persistent asymmetric elevation of the left lung base. Redemonstration of mild diffuse interstitial prominence and mild bronchial wall thickening. Increased patchy left basilar opacities. Multilevel degenerative changes in the thoracic spine. No significant pleural effusion. XR/XR chest 2V IMPRESSION: 1. Increased patchy left basilar opacities. 2. Redemonstration of mild diffuse interstitial prominence and mild bronchial wall thickening. Electronically signed by: Bess Oleary MD 09/14/2024 01:31 PM JONATHAN
== END 2024-07-22 14:25 | disposition home or self-care (01) ==
LOC: HO.HHCX 14:24
PROVIDERS: Visit Provider Nurse Practitioner
DX: R07.89 Other chest pain (principal); Z91.81 History of falling
CPT/HCPCS: 71046; 71110

== ENCOUNTER 2024-07-26 15:01 | Emergency (ER) | payer OTHER, SELFPAY ==
[2024-07-26 15:17] VITALS: BP 115/85; PULSE 87; RESP 18; TEMP 36.4; O2SAT 98; BMI 35.7
--- NOTE | 2024-07-26 15:17 | ED_ITS ---
HPI - Fall General Chief Complaint: Fall Stated Complaint: Fall 07/21/24 - rib injury Time Seen by Provider: 07/26/24 18:58 Source: patient and family Mode of arrival: ambulatory Limitations: no limitations History of Present Illness ED Provider: Itzel Borjas PA-C HPI Narrative: 79 yo who speaking female with history of AFib on Eliquis, CAD, CHF, asthma, kidney stones, varicose veins, NSTEMI in the past who presents to the ER for evaluation of right-sided frontal and lateral rib pain after she fell 5 days ago while trying to bend over and pick something up off the floor. She went to [facility] on 07/22, had x-rays done but family was told the reason not going to be read for 1 week. Patient is having ongoing pain with movement and deep breathing. MD complaint: fall Onset (ago): day(s) (5) Fall from: standing Fall witnessed: yes, by family Place fall occurred: home Loss of consciousness: none Prolonged down time: no Symptoms prior to fall: none Context: tripped/slipped Location of injury: chest Severity: severe Quality: sharp Associated symptoms (after fall): denies Related Data Home Medications ?Medication ?Instructions ?Recorded ?Confirmed albuterol sulfate 2.5 mg/3 mL 1 amp inhalation Q6H PRN Wheezing 09/06/22 06/15/24 (0.083 %) solution for nebulization blood sugar diagnostic ([facility] 09/06/22 06/15/24 Verio test strips) blood-glucose meter ([facility] 09/06/22 06/15/24 Verio Flex Meter) fluticasone 250 mcg-salmeterol 50 1 puff inhalation BID PRN 09/06/22 06/15/24 mcg/dose blistr powdr for shortness or breath or wheezing inhalation (Advair Diskus) lancets 33 gauge (OneTouch Delica 09/06/22 06/15/24 Plus Lancet) albuterol sulfate 90 mcg/actuation 2 puff inhalation Q4-6H PRN 10/23/22 06/15/24 aerosol inhaler (Ventolin HFA) Wheezing atorvastatin 80 mg tablet 80 mg PO DAILY 10/23/22 06/15/24 metformin 850 mg tablet 850 mg PO DAILY 10/23/22 06/15/24 ferrous gluconate 324 mg (37.5 mg 324 mg PO QAM 04/09/23 06/15/24 iron) tablet clopidogrel 75 mg tablet 75 mg PO DAILY 04/27/23 06/15/24 metoprolol succinate 50 mg 50 mg PO DAILY 04/27/23 06/15/24 tablet,extended release 24 hr (Toprol XL) acetaminophen 325 mg tablet 325 mg PO Q6H PRN mild pain 05/25/23 06/15/24 duloxetine 30 mg capsule,delayed 30 mg PO DAILY 07/28/23 06/15/24 release cetirizine 10 mg tablet 10 mg PO DAILY PRN allergies 04/06/24 06/15/24 furosemide 40 mg tablet 40 mg PO DAILY 04/06/24 06/15/24 pyridoxine (vitamin B6) 100 mg 100 mg PO DAILY 04/06/24 06/15/24 tablet simethicone 80 mg chewable tablet 80 mg PO QID PRN Indigestion 04/06/24 06/15/24 tramadol 50 mg tablet 50 mg PO Q6H PRN Pain 04/06/24 06/15/24 calcium citrate 315 mg 1 tab PO BID 04/21/24 06/15/24 calcium-vitamin D3 6.25 mcg (250 unit) tablet cholecalciferol (vitamin D3) 50 50 mcg PO DAILY 04/21/24 06/15/24 mcg (2,000 unit) capsule (Vitamin D3) hydroxyzine HCl 10 mg tablet 10 mg PO Q12H PRN itch 04/21/24 06/15/24 trazodone 100 mg tablet 100 mg PO BEDTIME 04/21/24 06/15/24 triamcinolone acetonide 0.1 % 1 topical BID 04/21/24 06/15/24 topical ointment Previous Rx's ?Medication ?Instructions ?Recorded apixaban 5 mg tablet (Eliquis) 5 mg PO BID #60 tabs 12/27/22 lidocaine 5 % topical patch 1 patch topical DAILY PRN pain #15 03/15/24 ea amlodipine 5 mg tablet 5 mg PO DAILY #90 tabs 04/07/24 bisacodyl 5 mg tablet,delayed 10 mg (2 x 5 mg) PO BEDTIME #180 04/21/24 release (Dulcolax (bisacodyl)) tabs calcium polycarbophil 625 mg 625 mg PO DAILY #90 tabs 04/21/24 tablet (FiberCon) docusate sodium 100 mg capsule 100 mg PO DAILY #90 caps 04/21/24 famotidine 20 mg tablet 20 mg PO BID #180 tabs 05/18/24 codeine 10 mg-guaifenesin 100 mg/5 10 ml PO Q4-6H PRN cough #473 mL 05/31/24 mL oral liquid mirabegron 50 mg tablet,extended 50 mg PO DAILY 30 days #30 tabs 07/14/24 release 24 hr (Myrbetriq) lidocaine 5 % topical patch 1 patch topical DAILY #15 ea 07/26/24 (Lidoderm) Allergies Allergy/AdvReac Type Severity Reaction Status Date / Time montelukast [Singulair] Allergy Unknown itching/marysol Verified 07/26/24 15:19 h Review of Systems Review of Systems: Yes all other systems are reviewed and are negative [facility] Past Medical History Medical History (Updated 07/26/24 @ 19:08 by CLAIRE Oreilly) Persistent atrial fibrillation Elevated liver enzymes NSTEMI (non-ST elevated myocardial infarction) Anxiety Asymmetrical thyroid CHF (congestive heart failure) COVID-19 Renal cyst, acquired, left Obstruction, uropathy Thrombosed external hemorrhoid COPD (chronic obstructive pulmonary disease) Atrial fibrillation Gout Asthma Alcohol abuse Nephrolithiasis Knee arthropathy Osteoarthritis Diabetes Arthritis Hypertension Surgical History Hx of bilateral cataract extraction Hx of hysterectomy Hx of lithotripsy History of total right knee replacement History of esophagogastroduodenoscopy (EGD) Hx of cystoscopy Hx of colonoscopy History of total knee arthroplasty Social History Social History Household Members: None Household Members Other:: DAUGHTER Housing: Apartment Housing Other:: low income housing 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) Unable to assess alcohol history related to: Unknown Alcohol intake: unknown Patient Tobacco Use Status: Never used Tobacco Smoked in Last 30 Days: No e-Cigarette/Vaping Use: Never Used Second Hand Smoke Exposure: No Use of substances other than those prescribed or required for medical reasons: No Advance Directives: Yes Advance Directives on File: Yes Advance Directives Date on File: 09/07/22 service: No Current occupational status: disabled Physical Exam Vital Signs: Vital Signs: Last Vital Signs Temp 97.8 F 07/26/24 19:29 Pulse 87 07/26/24 19:29 Resp 16 07/26/24 19:29 BP 168/88 H 07/26/24 19:29 Pulse Ox 95 07/26/24 19:29 O2 Del Method Room Air 07/26/24 19:29 BMI result Body Mass Index 35.7 Appearance: Alert. Oriented X3. No acute distress. HEENT: normal external inspection Neck: Normal inspection. Neck supple. CVS: ireggularly irregular, no murmur, Pulses normal. Respiratory: No respiratory distress. Breath sounds normal. No ecchymosis of chest wall. tenderness under the right breast Abdomen: Obese, Soft and nontender, no right upper quadrant pain, normal active +BS x4 Skin: Skin warm and dry. Normal skin color. Normal skin turgor. No rashes. Extremities: No lower extremity edema. No joint swelling. Neuro/psych: Oriented X 3. No motor deficit. No sensory deficit. CN II-XII intact. Normal speech and cognition. steady gait with a cane Course Course Course Narrative: This is a Rapid Medical Examination (RME) performed by Itzel Borjas PA-C in triage. Full HPI, ROS, assessment and treatment plan per primary provider in the Main ED. 79 yo who speaking female with history of AFib on Eliquis, CAD, CHF, asthma, kidney stones, varicose veins, NSTEMI in the past who presents to the ER for evaluation of right-sided rib pain after she fell 5 days ago while trying to bend over and pick something up off the floor. She went to urgent care on 07/22, had x-rays done but family was told the reason not going to be read for 1 week. Patient is having ongoing pain with movement and deep breathing. lungs diminished at bilateral bases, no resp distress. Plan: X-rays done on 07/22 - spoke with radiology to get them read STAT Medications Administered Discontinued Medications Generic Name Dose Route Start Last Admin Trade Name Freq PRN Reason Stop Dose Admin Acetaminophen 975 mg 07/26/24 19:07 07/26/24 19:27 Acetaminophen 325 Mg Tablet PO 07/26/24 19:08 975 mg ONCE ONE Administration Lidocaine 1 patch 07/26/24 19:07 07/26/24 19:28 Lidocaine 4 % Patch Adh..Patch TRANSDERMA 07/26/24 19:08 1 patch ONCE ONE Administration Protocol Medical Decision Making Medical Decision Making MDM Narrative: 79 yo who speaking female with history of AFib on Eliquis, CAD, CHF, asthma, kidney stones, varicose veins, NSTEMI in the past who presents to the ER for evaluation of right-sided frontal and lateral rib pain after she fell 5 days ago while trying to bend over and pick something up off the floor. No ecchymosis on the chest wall. She does have tenderness of the anterior and lateral ribs. She is breathing comfortably, lungs are clear, slightly diminished at the bilateral bases. She is oxygenating well in no respiratory distress. Patient had outpatient chest x-ray and rib x-rays done on 07/22, Radiology was contacted. A curriculum facilitator made aware of the stat read need for these images. Rib x-rays resulted with no acute rib fracture. There was a left basilar atelectasis with a question of a tiny left effusion. She has no left-sided injury or tenderness. No shortness a breath. Patient family counseled on rib contusion as most likely diagnosis of her pain. We discussed symptomatic relief with Lidoderm patches and Tylenol. She is stable for discharge home with outpatient follow-up with her PCP. Differential Diagnosis Differential Diagnoses: The differential diagnosis associated with the presentation includes Rib fracture, rib contusion, hemothorax, pulmonary contusion Admission/Observation Consideration of admission/observation: Escalation of care including admission/observation considered Independent Interpretation I performed an independent interpretation of an: Plain X-Ray Interpretation: Chest x-ray without any significant effusion, no obvious displaced rib fractures on images from 07/22 Radiology Impression Discussion of test interpretation with radiology: I have reviewed the radiologist's reading. Radiologist Impression: EXAMINATION: XR RIBS, BILATERAL CLINICAL INFORMATION: Chest wall pain after fall COMPARISON: None available. TECHNIQUE: PA chest and 3 views of the bilateral ribs were obtained. FINDINGS: Heart and mediastinum within normal limits. No vascular congestion, consolidations or pneumothoraces. No right pleural effusion. Left base atelectasis and minimal costophrenic angle blunting. No displaced fractures. XR/XR ribs BI 3V IMPRESSION: Left base atelectasis, tiny left effusion not excluded. No acute bony pathology. Independent Historian Clinical information obtained from an independent historian. History obtained from or confirmed by: Other (Family at the bedside) External Record Review External record reviewed: Inpatient record, Office record, Outpatient record, Prior outpatient labs, Prior outpatient radiology and Primary care record Prescription Management I considered prescription management with: Pain Medication Chronic Conditions Patient?s care impacted by: Other (AFib on Pradaxa) Critical Care Time Critical Care Time Critical Care Time: No Discharge Plan Discharge Clinical Impression: Contusion of rib on right side Qualifiers: Encounter type: initial encounter Qualified Code(s): S20.211A - Contusion of right front wall of thorax, initial encounter Patient Disposition: Home, Self-Care Instructions: Rib Contusion (ED) Additional Instructions: your x-ray did not show nay broken ribs Take Tylenol 975 mg every 6-8 hours around the clock. Use the prescribed pain patches to the area once per day. Follow-up with your doctor. If you develop new or worsening symptoms call 911 or come back to the ER for further evaluation. Prescriptions: New lidocaine [Lidoderm] 5 % adhesive patch,medicated 1 patch topical DAILY Qty: 15 0RF Rx Instructions: leave on most painful area for up to 12 hrs No Action famotidine 20 mg tablet 20 mg PO BID Qty: 180 2RF Myrbetriq 50 mg tablet extended release 24 hr 50 mg PO DAILY 30 Days Qty: 30 5RF fluticasone propion-salmeterol [Advair Diskus] 250-50 mcg/dose blister with device 1 puff INHALATION BID PRN (Reason: shortness or breath or wheezing) albuterol sulfate 2.5 mg /3 mL (0.083 %) solution for nebulization 1 amp inhalation Q6H PRN (Reason: Wheezing) (DME) blood-glucose meter [Prudent EnergyTouch Verio Flex meter] [facility] MISCELLANEOUS DIRECTED (DME) OneTouch Verio test strips Strip MISCELLANEOUS BID (DME) lancets [OneTouch Delica Plus Lancet] 33 gauge [facility] [place]ISCELLANEOUS BID Eliquis 5 mg tablet 5 mg PO BID Qty: 60 0RF ferrous gluconate 324 mg (37.5 mg iron) Tablet 324 mg PO QAM acetaminophen 325 mg tablet 325 mg PO Q6H PRN (Reason: mild pain) lidocaine 5 % adhesive patch,medicated 1 patch topical DAILY PRN (Reason: pain) Qty: 15 0RF Rx Instructions: leave on most painful area for up to 12 hrs cetirizine 10 mg Tablet 10 mg PO DAILY PRN (Reason: allergies) pyridoxine (vitamin B6) 100 mg Tablet 100 mg PO DAILY simethicone 80 mg Tablet,Chewable 80 mg PO QID PRN (Reason: Indigestion) tramadol 50 mg tablet 50 mg PO Q6H PRN (Reason: Pain) furosemide 40 mg tablet 40 mg PO DAILY amlodipine 5 mg tablet 5 mg PO DAILY Qty: 90 0RF metformin 850 mg tablet 850 mg PO DAILY atorvastatin 80 mg tablet 80 mg PO DAILY albuterol sulfate [Ventolin HFA] 90 mcg/actuation HFA aerosol inhaler 2 puff inhalation Q4-6H PRN (Reason: Wheezing) clopidogrel 75 mg tablet 75 mg PO DAILY metoprolol succinate [Toprol XL] 50 mg tablet extended release 24 hr 50 mg PO DAILY codeine-guaifenesin 10-100 mg/5 mL liquid 10 ml PO Q4-6H PRN (Reason: cough) Qty: 473 0RF duloxetine 30 mg capsule,delayed release(DR/EC) 30 mg PO DAILY trazodone 100 mg tablet 100 mg PO BEDTIME triamcinolone acetonide 0.1 % ointment 1 topical BID hydroxyzine HCl 10 mg tablet 10 mg PO Q12H PRN (Reason: itch) cholecalciferol (vitamin D3) [Vitamin D3] 50 mcg (2,000 unit) capsule 50 mcg PO DAILY calcium citrate-vitamin D3 315 mg-6.25 mcg (250 unit) tablet 1 tab PO BID bisacodyl [Dulcolax (bisacodyl)] 5 mg tablet,delayed release (DR/EC) 10 mg PO BEDTIME Qty: 180 4RF docusate sodium 100 mg capsule 100 mg PO DAILY Qty: 90 3RF FiberCon 625 mg tablet 625 mg PO DAILY Qty: 90 3RF Print Language: Egyptian
--- NOTE | 2024-07-26 18:20 | PC.NURSE ---
Pt presents to ED from home with family. Reports fall on 07/22, tripped and fell foward onto ground, no LOC, did hit her chin on ground. Went to same day UC that day and had x-rays done, no results back. Pt reports pain in right rib area, worsens with breathing and movement. No obvious crepitus or bruising noted on exam. Alert and oriented, breathing even and unlabored. Ambulates with cane. + blood thinners
[2024-07-26] MEDS: Acetaminophen 325 MG TABLET 975 MG PO (19:27)
[2024-07-26] MEDS: Lidocaine 4 % Patch ADH..PATCH 1 PATCH TRANSDERMA (19:28)
[2024-07-26 19:29] VITALS: BP 168/88; PULSE 87; RESP 16; TEMP 36.6; O2SAT 95
[2024-07-26 19:37] VITALS: BP 168/88; PULSE 87; RESP 16; TEMP 36.6; O2SAT 95
== END 2024-07-26 19:39 | disposition home or self-care (01) ==
PROVIDERS: Emergency Provider Emergency Medicine; PCP Student in an Organized Health Care Education/Training Program
DX: R07.81 Pleurodynia (principal); I48.91 Unspecified atrial fibrillation; R07.89 Other chest pain; Z79.01 Long term (current) use of anticoagulants; I25.10 Atherosclerotic heart disease of native coronary artery without angina pectoris
CPT/HCPCS: 99283; 99284

== ENCOUNTER 2024-10-14 13:28 | Outpatient (REF) | payer OTHER, SELFPAY ==
--- NOTE | ~2024-10-14 | CT_ITS ---
EXAMINATION: CT HEAD WITHOUT CONTRAST CLINICAL INFORMATION: Dizziness and headaches. COMPARISON: CT brain 04/02/2024 TECHNIQUE: Contiguous axial imaging was performed from the skull base to vertex without intravenous administration of contrast. This CT examination was performed using dose optimization techniques as appropriate, variously including the following: *Automated exposure control *Adjustment of mA and/or kV according to patient size (this includes techniques or standardized protocols for targeted exams where dose is matched to indication/reason for exam; i.e. extremities or head) *Use of iterative reconstruction technique DLP 739 mGy/cm. FINDINGS: There is no acute intra-axial, extra-axial bleed, masses or midline shift. There is no acute infarction evolution. There is no edema. Ernst to white matter differentiation is maintained normal. The lateral ventricles are symmetrical but moderately enlarged. Is dystrophic bibasilar ganglia calcifications, stable There is diffuse periventricular subcortical hypodensity suggestive of chronic small vessel ischemic changes without mass effect. Bone windows reveal no calvarial abnormality. Bilateral paranasal sinuses and mastoid air cells are well-aerated. The scalp soft tissues are normal. CT/CT head/brain wo IV con IMPRESSION: No acute intracranial process seen. Diffuse supratentorial chronic small vessel ischemic changes, stable. Electronically signed by: Donell Carrion MD 11/21/2024 02:11 PM JONATHAN
--- OUTSIDE RECORDS SUMMARY | 2024-10-19 09:39 | XMS_ITS ---
Author Organization Unknown ALLERGIES AND ADVERSE REACTIONS No information ASSESSMENT No information CHIEF COMPLAINT No information MEDICATIONS No information OBJECTIVE DATA No information PHYSICAL EXAMINATION No information TREATMENT PLAN Planned Care Start Date Provider Encounter for Check-up [id number] PROBLEMS No information RESULTS No information REVIEW OF SYSTEMS No information SUBJECTIVE DATA No information VITAL SIGNS No information
== END 2024-10-14 13:29 | disposition home or self-care (01) ==
LOC: HO.CT 13:28
PROVIDERS: PCP Student in an Organized Health Care Education/Training Program; Visit Provider Emergency Medicine
DX: R42 Dizziness and giddiness (principal)
CPT/HCPCS: 70450

== ENCOUNTER → 2024-10-14 13:33 | Outpatient (BNV) | payer OTHER, SELFPAY | PROVIDERS: PCP Student in an Organized Health Care Education/Training Program; Visit Provider Radiology Diagnostic Radiology | DX: R42 Dizziness and giddiness (principal) | CPT/HCPCS: 70450 ==

== ENCOUNTER 2024-10-19 14:39 | Outpatient (AMB) | payer OTHER, SELFPAY ==
--- NOTE | 2024-10-19 14:41 | MHC.OFFVIS ---
Vital Signs 10/19/24 14:42 Height 5 ft 2 in Weight 201 lb 15.095 oz BMI 36.9 BP 148/80 H Blood Pressure Location Lt brachial Position Sitting Pulse 82 Pulse Source Pulse Oximeter Pulse Oximetry (%) 97 Oxygen Delivery Method Room Air Intake Visit Reasons: 3 month follow up Intake Note: ESTABLISHED PATIENT Roseanna presents in office today for a scheduled 3 mos FUV. Meds and Allergies reviewed? Y No recent or relevant surgeries? N Any significant concerns or new changes? No significant changes or concerns. Pharmacy verified? [facility] Pharmacy Diagnostic Imaging Manager Required: Yes Diagnostic Imaging Manager Services: Diagnostic Imaging Manager Offered & Declined Allergies montelukast [Singulair] Allergy (Unknown, Verified 10/19/24 14:42) itching/rash HPI HPI 3 month follow up: Details: [facility] VISIT: Chronic idiopathic constipation Postprandial abdominal bloating GERD (gastroesophageal reflux disease) Plan Patient can continue Colace daily. Continue fiber supplements. Patient will start taking Dulcolax to help her move her bowels better. Avoid dietary triggers and late night snacking. Staying upright for minimum 3 hours after meals discussed with patient. Continue famotidine. Follow-up in 3 months, sooner on as needed basis. She is agreeable to this plan and verbalizes understanding of instructions. She was given the opportunity to ask questions and all questions answered. ? Thank you for allowing me to participate in her care Medications New bisacodyl (Dulcolax (bisacodyl)) 10 mg (2 x 5 mg) PO BEDTIME 180 tabs 4RF calcium polycarbophil (FiberCon) 625 mg PO DAILY 90 tabs 3RF Changed Changed From docusate sodium 100 mg PO BID Changed To docusate sodium 100 mg PO DAILY 90 caps 3RF TODAY'S VISIT Patient is here today for follow-up. Patient reports that she has been doing quite well since last visit. Last colonoscopy in 2019 and patient is due to go for repeat colonoscopy 1 small tubular adenoma found. Patient does not want to go for colonoscopy.. Patient denies any melena, hematochezia, unintentional weight loss or ribbon like stools. Patient denies any family history of CRC. Now that she is moving her bowels daily taking Dulcolax reports that she has been feeling well. Denies any GI concerning symptoms. Patient reports good appetite, no nausea or vomiting. Denies dyspepsia, dysphagia or odynophagia. PFS Medical History Persistent atrial fibrillation Elevated liver enzymes NSTEMI (non-ST elevated myocardial infarction) Anxiety Asymmetrical thyroid CHF (congestive heart failure) COVID-19 Renal cyst, acquired, left Obstruction, uropathy Thrombosed external hemorrhoid COPD (chronic obstructive pulmonary disease) Atrial fibrillation Gout Asthma Alcohol abuse Nephrolithiasis Knee arthropathy Osteoarthritis Diabetes Arthritis Hypertension Surgical History Hx of bilateral cataract extraction Hx of hysterectomy Hx of lithotripsy History of total right knee replacement History of esophagogastroduodenoscopy (EGD) Hx of cystoscopy Hx of colonoscopy History of total knee arthroplasty Social History Household Members: None Household Members Other:: DAUGHTER Housing: Apartment Housing Other:: low income housing 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) Unable to assess alcohol history related to: Unknown Alcohol intake: unknown Patient Tobacco Use Status: Never used Tobacco e-Cigarette/Vaping Use: Never Used Second Hand Smoke Exposure: No Advance Directives Date on File: 09/07/22 service: No Current occupational status: disabled Review of Systems Const Denies weight gain and Denies weight loss ENT Reports no additional complaints, Denies dysphagia and Denies odynophagia Card Reports no additional complaints Resp Reports no additional complaints GI Denies abdominal pain, Denies belching, Denies melena, Denies bloating, Denies change in bowel habits, Denies dysphagia, Denies excessive flatus, Denies dyspepsia, Denies heartburn, Denies diarrhea, Denies loose stools, Denies nausea, Denies odynophagia and Denies vomiting Musc Reports no additional complaints Neuro Reports no additional complaints Psych Reports no additional complaints Endo Reports no additional complaints Physical Exam Const General: healthy appearing and no acute distress Nutritional Appearance: obese Orientation/consciousness: patient oriented x3 Resp Effort & Inspection: normal respiratory effort, able to speak in complete sentences, no tracheal deviation and symmetric chest movement Auscultation: clear to auscultation bilaterally Cardio Rate: regular rate GI Inspection: Yes normal to inspection, No distended and Yes obesity Palpation (GI): Soft to palpation, not firm, nontender and No hepatosplenomegaly present Auscultation: normal bowel sounds General: Yes no CVA tenderness Back/Spine/Pelvis Back: no CVA tenderness Skin General skin exam: elasticity normal, turgor normal and dry skin Neuro General: patient oriented x3 Extrem Right lower extremity: hip/thigh (R hip tenderness) Psych Appearance: grossly normal Mental Status: mental status grossly normal Assessment & Plan Assessment & Plan (1) Chronic idiopathic constipation: Code(s): K59.04 - Chronic idiopathic constipation (2) Postprandial abdominal bloating: Code(s): R14.0 - Abdominal distension (gaseous) (3) GERD (gastroesophageal reflux disease): Code(s): K21.9 - Gastro-esophageal reflux disease without esophagitis Qualifiers: Esophagitis presence: esophagitis presence not specified Qualified Code(s): K21.9 - Gastro-esophageal reflux disease without esophagitis Plan Patient will follow-up in our office on as needed basis. She will call if she will have any GI concerning symptoms. Both patient and her daughter are agreeable to plan of care and verbalizes understanding of instructions. They were given the opportunity to ask questions and all questions answered. Thank you for allowing me to participate in her care Coding Level of Care Code Est Pt Level 3 (33928) Diagnoses Chronic idiopathic constipation K59.04 Postprandial abdominal bloating R14.0 Gastroesophageal reflux disease, unspecified whether esophagitis present K21.9 Esophagitis presence: esophagitis presence not specified Time Spent (min) 25 Comment 15 minutes spent with patient and additional 10 minutes spent reviewing her records
[2024-10-19 14:42] VITALS: BP 148/80; PULSE 82; O2SAT 97; BMI 36.9
== END 2024-10-19 15:10 | disposition home or self-care (01) ==
PROVIDERS: PCP Student in an Organized Health Care Education/Training Program; Visit Provider Nurse Practitioner Family
DX: K59.04 Chronic idiopathic constipation (principal); R14.0 Abdominal distension (gaseous); K21.9 Gastro-esophageal reflux disease without esophagitis
CPT/HCPCS: 99213

== ENCOUNTER → 2024-10-19 14:39 | Outpatient (BNVA) | payer OTHER, SELFPAY | PROVIDERS: PCP Student in an Organized Health Care Education/Training Program; Visit Provider Nurse Practitioner Family | DX: K59.04 Chronic idiopathic constipation (principal); K21.9 Gastro-esophageal reflux disease without esophagitis; R14.0 Abdominal distension (gaseous); Z79.899 Other long term (current) drug therapy | CPT/HCPCS: 99212 ==

== ENCOUNTER 2024-10-26 13:15 | Outpatient (AMB) | payer OTHER, SELFPAY ==
--- NOTE | 2024-10-26 13:17 | MHC.OFFVIS ---
Vital Signs 10/26/24 13:18 Height 5 ft 2 in Weight 199 lb 11.821 oz BMI 36.5 BP 130/70 Blood Pressure Location Lt brachial Position Sitting Pulse 69 Pulse Source Pulse Oximeter Intake Visit Reasons: 4 mth f/up Intake Note: 4 mth f/up Chinese Herbalist Required: No Chinese Herbalist Services: Chinese Herbalist Offered & Declined Chinese Herbalist Name: yasherman/vincentian Accompanied by: Daughter Allergies montelukast [Singulair] Allergy (Unknown, Verified 10/19/24 14:42) itching/rash Medication List - Last Reconciled 10/26/24 by Colby Cadena MD acetaminophen 325 mg PO Q6H PRN albuterol sulfate 1 amp inhalation Q6H PRN albuterol sulfate 90 mcg/actuation (Ventolin HFA) 2 puffs inhalation Q4-6H PRN alcohol swabs (Alcohol Prep Pads) pad topical BID apixaban (Eliquis) 5 mg PO BID atorvastatin 80 mg PO DAILY bisacodyl (Dulcolax (bisacodyl)) 10 mg (2 x 5 mg) PO BEDTIME blood pressure test kit-large As directed blood sugar diagnostic (Coradiant Verio test strips) blood-glucose meter (Coradiant Verio Flex Meter) calcium citrate-vitamin D3 315 mg-6.25 mcg (250 unit) 1 tab PO BID calcium polycarbophil (FiberCon) 625 mg PO DAILY cetirizine 10 mg PO DAILY PRN cholecalciferol (vitamin D3) (Vitamin D3) 50 mcg PO DAILY clopidogrel 75 mg PO DAILY codeine-guaifenesin 10-100 mg/5 mL 10 mL PO Q4-6H PRN docusate sodium 100 mg PO DAILY duloxetine 30 mg PO DAILY famotidine 20 mg PO BID ferrous gluconate 324 mg PO BID fluticasone propion-salmeterol 250-50 mcg/dose (Advair Diskus) 1 puff inhalation BID PRN furosemide 40 mg PO DAILY hydroxyzine HCl 10 mg PO Q12H PRN lancets (HavkraftTouch Delica Plus Lancet) lidocaine 5% (Lidoderm) 1 patch topical DAILY metformin 850 mg PO DAILY metoprolol succinate ER (Toprol XL) 50 mg PO DAILY mirabegron ER (Myrbetriq) 50 mg PO DAILY 30 days pyridoxine (vitamin B6) 100 mg PO DAILY simethicone 80 mg PO QID PRN tramadol 50 mg PO Q6H PRN trazodone 100 mg PO BEDTIME triamcinolone acetonide 0.1% 1 topical BID HPI Comments Details: 79-year-old female who is presenting to clinic after recent cardiac catheterization performed at [facility]. She came to [facility] and was diagnosed with congestive heart failure. At that time she also complained of some chest pains. The chest pains appear to be atypical but she had diffuse T-wave inversions anterolateral leads with mildly elevated troponin levels and ruled in for NSTEMI. She was transferred for cardiac catheterization and it was noticed that she had severe mid LAD stenosis. This was treated with a drug-eluting stent. Subsequent to that she was in the hospital because there was some concern about bradycardia and it appears her diltiazem was stopped at that stage. She also was taken off the aspirin and was discharged home with apixaban and clopidogrel. She previously had atrial fibrillation and was supposed to be on Eliquis. She was accompanied by her daughter. The daughter reported that 5 days ago the patient complained of some shortness of breath and had to step out of the house and went to the porch to get some air. She also has orthopnea. She has peripheral edema. She is taking her medications regularly and has a pill box. No bleeding concerns. 06/24/23: She returns for follow-up. She had echocardiography yesterday showed low normal ejection fraction and moderate to severe mitral regurgitation. The daughter said that the patient has been experiencing some orthopnea at night time. She has been taking medication regularly. Denying any chest discomfort or significant shortness of breath with activity. She is not very active though. She had some blood in her urine due to ureteric stents but nothing gross recently. 06/15/2024: She is here for follow-up. She is feeling good. Denying any shortness of breath or chest discomfort. No bleeding concerns. Taking Eliquis and Plavix at this point. Well rate controlled for atrial fibrillation at this point metoprolol XL 50 mg daily. Blood pressure 120/70. 10/26/2024: On follow-up today, she is denying chest pain or shortness of breath. No orthopnea or PND. No peripheral edema. Taking medications regularly. No reported bleeding concerns. Last echocardiography showed moderate LV dysfunction with mild RV dysfunction. Mitral regurgitation interestingly was trace on that study. She has not received her amlodipine scripts and has not been taking amlodipine. We discussed and we are going to change her to losartan 25 mg daily given LV dysfunction. [facility] Medical History Persistent atrial fibrillation Elevated liver enzymes NSTEMI (non-ST elevated myocardial infarction) Anxiety Asymmetrical thyroid CHF (congestive heart failure) COVID-19 Renal cyst, acquired, left Obstruction, uropathy Thrombosed external hemorrhoid COPD (chronic obstructive pulmonary disease) Atrial fibrillation Gout Asthma Alcohol abuse Nephrolithiasis Knee arthropathy Osteoarthritis Diabetes Arthritis Hypertension Surgical History Hx of bilateral cataract extraction Hx of hysterectomy Hx of lithotripsy History of total right knee replacement History of esophagogastroduodenoscopy (EGD) Hx of cystoscopy Hx of colonoscopy History of total knee arthroplasty Social History (Reviewed 10/26/24 @ 13:22 by Juliana Ramos [facility]) Household Members: None Household Members Other:: DAUGHTER Housing: Apartment Housing Other:: low income housing Do you presently have visiting nurse or other home services: Yes (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[employer]) Unable to assess alcohol history related to: Unknown Alcohol intake: unknown Patient Tobacco Use Status: Never used Tobacco e-Cigarette/Vaping Use: Never Used Second Hand Smoke Exposure: No Advance Directives Date on File: 09/07/22 service: No Current occupational status: disabled Review of Systems Const Denies chills, Denies fatigue, Denies fever(s), Denies frequent falls, Denies weakness, Denies weight gain and Denies weight loss ENT Denies dizziness Card Denies chest pain, Denies leg edema, Denies lightheadedness, Denies palpitations, Denies dyspnea and Denies dyspnea on exertion Resp Denies cough, Denies dyspnea and Denies dyspnea on exertion GI Denies hematochezia Musc Denies abnormal gait, Denies muscle weakness, Denies numbness, Denies radiating pain into limb and Denies tingling Neuro Denies abnormal gait, Denies dizziness, Denies frequent falls, Denies numbness, Denies tingling and Denies weakness Endo Denies fatigue and Denies palpitations Physical Exam Vital Signs: Last Vital Signs Pulse 69 10/26/24 13:18 BP 130/70 10/26/24 13:18 BMI result Body Mass Index 36.5 GENERAL APPEARANCE: in no acute distress. NECK: no carotid bruit, no jugular venous distention. SKIN: no suspicious lesions, warm and dry. HEART: no murmurs, irregular rate and rhythm. LUNGS: clear to auscultation bilaterally. ABDOMEN: soft, nontender. EXTREMITIES: No significant edema. PERIPHERAL PULSES: equal. NEUROLOGIC: No gross deficits, AAO X 3 Assessment & Plan Assessment & Plan (1) Cardiomyopathy: Code(s): I42.9 - Cardiomyopathy, unspecified Category: Medical (2) Persistent atrial fibrillation: Code(s): I48.19 - Other persistent atrial fibrillation Category: Medical (3) Stable angina: Code(s): I20.89 - Other forms of angina pectoris Category: Medical Plan Pleasant 79-year-old female who is here for follow-up. She has known history of coronary disease with previous LAD PCI. She has persistent atrial fibrillation at this point. She is been treated with rate control strategy for now. She had echocardiography in 06/28/2023 which showed EF of 45-50% with moderate mitral valve regurgitation. More recently in 03/28/2024 she had echocardiography done again which showed EF of 34% and mild RV dysfunction. There was trace mitral regurgitation noted on this study. Clinically she is euvolemic at this point and is denying any symptoms. She is on Toprol-XL and Lasix 40 mg daily. Etiology of cardiomyopathy is currently unclear. Atrial fibrillation is well controlled currently. She is on anticoagulation. She has not been taking amlodipine. We will take her off her medication list and add losartan 25 mg daily. She will have repeat blood workup before next visit. We will also repeat her echocardiography to assess the ejection fraction again. Thank you for allowing me to participate in the care of your patient. Please feel free to contact me if you have any questions. Orders: Orders Basic Metabolic Panel 3 Months I42.9 - Cardiomyopathy, unspecified B Type Natriuretic Peptide 3 Months I42.9 - Cardiomyopathy, unspecified CA echo transthoracic complete Today I42.9 - Cardiomyopathy, unspecified Complete Blood Count no Diff 3 Months I42.9 - Cardiomyopathy, unspecified Medications: New losartan 25 mg PO DAILY 90 tabs 3RF I42.9 - Cardiomyopathy, unspecified Coding Level of Care Code Est Pt Level 4 (46941) Diagnoses Cardiomyopathy I42.9 Persistent atrial fibrillation I48.19 Stable angina I20.89
[2024-10-26 13:18] VITALS: BP 130/70; PULSE 69; BMI 36.5
== END 2024-10-26 13:35 | disposition home or self-care (01) ==
PROVIDERS: PCP Student in an Organized Health Care Education/Training Program; Visit Provider Internal Medicine Cardiovascular Disease
DX: I42.9 Cardiomyopathy, unspecified (principal); I48.19 Other persistent atrial fibrillation; I20.89 Other forms of angina pectoris
CPT/HCPCS: 99214

== ENCOUNTER → 2024-10-26 13:15 | Outpatient (BNVA) | payer OTHER, SELFPAY | PROVIDERS: PCP Student in an Organized Health Care Education/Training Program; Visit Provider Internal Medicine Cardiovascular Disease | DX: I42.9 Cardiomyopathy, unspecified (principal); I48.19 Other persistent atrial fibrillation; I20.89 Other forms of angina pectoris | CPT/HCPCS: 99212 ==

== ENCOUNTER 2024-12-22 20:55 | Inpatient (IN) | payer OTHER, SELFPAY ==
[2024-12-22] VITALS (8 sets, daily range): BP systolic 143–198; BP diastolic 72–114; PULSE 92–170; RESP 28–47; TEMP 37.3–38.2; O2SAT 92–96; BMI 38.1
--- NOTE | ~2024-12-22 | XR_ITS ---
CLINICAL HISTORY: sob 1 view chest x-ray Comparison: CR/SR - XR CHEST 1V - 04/06/24 03:25 EDT Findings: Right lower lobe consolidation. Heart size is normal. No acute fracture. IMPRESSION: Right lower lobe pneumonia. This document has been electronically signed by: Tim Ray MD on 12/22/2024 22:52:10
--- NOTE | ~2024-12-22 | CT_ITS ---
CLINICAL HISTORY: vomiting CT abdomen and pelvis without contrast Comparison: CT/SR - CT ABDOMEN PELVIS WO IV CON - 06/07/24 16:38 EDT Findings: Motion and streak artifact limit evaluation. Please see same day CT chest report. Left-sided hypodense renal cysts and exophytic cysts with septal calcifications similar to prior. Mild left hydronephrosis with similar position of the chronic lower pole calculi, largest measuring 1.4 cm. Intramural lipoma noted along the descending colon. No bowel obstruction. Scattered colonic diverticulosis without diverticulitis or colitis. Normal appendix. Johnson catheter in the bladder scattered air anteriorly and mural thickening, nonspecific. The bones are intact. IMPRESSION: Mild left hydronephrosis with similar position of the chronic lower pole calculi, largest measuring 1.4 cm. This document has been electronically signed by: eGne Matamoros MD on 12/23/2024 03:01:41
--- NOTE | ~2024-12-22 | CT_ITS ---
CLINICAL HISTORY: dyspnea CT chest without contrast Comparison: None Findings: Motion and streak artifact limit evaluation. Cardiomegaly without significant pericardial effusion. Coronary artery calcifications. The visualized thyroid and mediastinum are unremarkable. Ill-defined multifocal bilateral nodular consolidations with more dense infiltrative consolidations in the right lower lobe with diffuse ground-glass attenuation and scattered air bronchograms. The ill-defined pulmonary nodules are felt to be infectious/inflammatory. No significant pleural effusion or pneumothorax. Please see same day CT abdomen pelvis report. Exaggeration of the thoracic kyphosis. Osteopenia with diffuse multilevel spondylosis. Age-indeterminate mild T2 superior endplate compression deformity. No retropulsion. IMPRESSION: Bilateral mixed airspace disease, right worse than left as described, concerning for pneumonia and/or aspiration. Attention on follow-up. This document has been electronically signed by: Gene Matamoros MD on 12/23/2024 03:05:14
--- NOTE | 2024-12-22 21:19 | ECG_ITS ---
Test Reason : tachy Blood Pressure : */* mmHG Vent. Rate : 155 BPM Atrial Rate : 119 BPM P-R Int : * ms QRS Dur : 80 ms QT Int : 310 ms P-R-T Axes : * 11 142 degrees QTcB Int : 498 ms Atrial fibrillation with rapid ventricular response Septal infarct , age undetermined ST & T wave abnormality, consider lateral ischemia Abnormal ECG When compared with ECG of 05-Apr-2024 21:17, Vent. rate has increased ST no longer depressed in Anterior leads Referred By: Lauren Chavez Electronically Signed By: ALEA MAE MD
[2024-12-22 21:40] LABS: Hematocrit 37.6 % (37.0-47.0); Hemoglobin 12.5 g/dl (12.0-16.0); Mean Corpuscular HGB Conc 33.2 g/dl (31.0-35.0); Mean Corpuscular Hemoglobin 28.4 pg (27.0-33.0); Mean Corpuscular Volume 85.5 fL (80.0-98.0); Mean Platelet Volume 10.7 fL (9.4-12.3); Platelet Count 304 X10*3/uL (160-400); Red Cell Distribution Width 13.2 % (11.0-16.0)
[2024-12-22 21:43] LABS: WBC ABN SCTR FOR CBC 1
[2024-12-22] MEDS: Metoprolol Tartrate 5 MG/5 ML VIAL IVPUSH (21:49)
[2024-12-22 22:01] LABS: Ethanol < 10 mg/dL
[2024-12-22 22:02] LABS: Monocytes Percent Manual 8 % (2-11); Neutrophils Percent Manual 92 % (45-73)
[2024-12-22 22:05] LABS: Platelet Estimate NORMAL (NORMAL); Platelet Morphology Comment NORMAL; RBC Morphology NORMAL
[2024-12-22 22:06] LABS: Band Neutrophils Percent 0 % (3-5); Monocytes Absolute Manual 1.5 X10*3/uL (0.1-1.2); Neutrophils Absolute Manual 17.4 X10*3/uL (2.0-8.3); White Blood Count 18.9 X10*3/uL (4.8-10.8)
[2024-12-22 22:07] LABS: INTERNATIONAL NORM RATIO 1.1 (0.9-1.1); Prothrombin Time 13.1 SEC (10.9-12.4)
--- NOTE | 2024-12-22 22:13 | ED.GENADULT ---
HPI - General Adult General Chief complaint: GI Bleed Stated complaint: N/V, weakness, diff breathing Time Seen by Provider: 12/22/24 21:17 Source: EMS Mode of arrival: EMS Limitations: other History of Present Illness ED Provider: Dr. Lauren Chavez HPI narrative: Patient comes to the emergency room via ambulance from home. Patient complaining of shortness of breath. However, patient is a poor historian. Patient complaining of dizziness. When asked to explain what dizziness means to her, patient states that she is feels dizzy. Unable to explain. Patient denies room spinning, denies near syncopal episodes, denies lightheadedness. Patient denies shortness of breath. Seems that patient is mostly feeling unwell. Patient's daughter later came to bedside. Patient has no history of the mentioned to their knowledge. However, they have notice that patient has trouble recognizing her own daughters and asked them who they are. This has been going on for over a year now. According to the patient's daughter, the patient lives by herself but patient has a WAITER/WAITRESS TAKE OUT who is supposed to be with her 01/06. However, per patient's daughter, the patient's PCS is no where to be found at times. Also, I discussed with the patient's daughter that seems that the last time that the patient picked up any of her meds from her pharmacy at [facility] was in August of 2024. The patient's daughter states that she is not sure, states that every time that she visits her mom their pills all over the floor. Related Data Home Medications ?Medication ?Instructions ?Recorded ?Confirmed albuterol sulfate 2.5 mg/3 mL 1 amp inhalation Q6H PRN Wheezing 09/06/22 10/26/24 (0.083 %) solution for nebulization blood sugar diagnostic (OneTouch 09/06/22 10/26/24 Verio test strips) blood-glucose meter (OneTouch 09/06/22 10/26/24 Verio Flex Meter) fluticasone 250 mcg-salmeterol 50 1 puff inhalation BID PRN 09/06/22 10/26/24 mcg/dose blistr powdr for shortness or breath or wheezing inhalation (Advair Diskus) lancets 33 gauge (OneTouch Delica 09/06/22 10/26/24 Plus Lancet) albuterol sulfate 90 mcg/actuation 2 puff inhalation Q4-6H PRN 10/23/22 10/26/24 aerosol inhaler (Ventolin HFA) Wheezing atorvastatin 80 mg tablet 80 mg PO DAILY 10/23/22 10/26/24 metformin 850 mg tablet 850 mg PO DAILY 10/23/22 10/26/24 clopidogrel 75 mg tablet 75 mg PO DAILY 04/27/23 10/26/24 metoprolol succinate 50 mg 50 mg PO DAILY 04/27/23 10/26/24 tablet,extended release 24 hr (Toprol XL) acetaminophen 325 mg tablet 325 mg PO Q6H PRN mild pain 05/25/23 10/26/24 duloxetine 30 mg capsule,delayed 30 mg PO DAILY 07/28/23 10/26/24 release cetirizine 10 mg tablet 10 mg PO DAILY PRN allergies 04/06/24 10/26/24 pyridoxine (vitamin B6) 100 mg 100 mg PO DAILY 04/06/24 10/26/24 tablet simethicone 80 mg chewable tablet 80 mg PO QID PRN Indigestion 04/06/24 10/26/24 tramadol 50 mg tablet 50 mg PO Q6H PRN Pain 04/06/24 10/26/24 calcium 315 mg (as 1 tab PO BID 04/21/24 10/26/24 citrate)-vitamin D3 6.25 mcg (250 unit) tablet cholecalciferol (vitamin D3) 50 50 mcg PO DAILY 04/21/24 10/26/24 mcg (2,000 unit) capsule (Vitamin D3) hydroxyzine HCl 10 mg tablet 10 mg PO Q12H PRN itch 04/21/24 10/26/24 trazodone 100 mg tablet 100 mg PO BEDTIME 04/21/24 10/26/24 triamcinolone acetonide 0.1 % 1 topical BID 04/21/24 10/26/24 topical ointment alcohol swabs (Alcohol Prep Pads) pad topical BID 10/19/24 10/26/24 blood pressure test kit-large #1 ea 10/19/24 10/26/24 ferrous gluconate 324 mg (38 mg 324 mg PO BID 10/19/24 10/26/24 iron) tablet Previous Rx's ?Medication ?Instructions ?Recorded apixaban 5 mg tablet (Eliquis) 5 mg PO BID #60 tabs 12/27/22 bisacodyl 5 mg tablet,delayed 10 mg (2 x 5 mg) PO BEDTIME #180 04/21/24 release (Dulcolax (bisacodyl)) tabs calcium polycarbophil 625 mg 625 mg PO DAILY #90 tabs 04/21/24 tablet (FiberCon) docusate sodium 100 mg capsule 100 mg PO DAILY #90 caps 04/21/24 famotidine 20 mg tablet 20 mg PO BID #180 tabs 05/18/24 codeine 10 mg-guaifenesin 100 mg/5 10 ml PO Q4-6H PRN cough #473 mL 05/31/24 mL oral liquid mirabegron 50 mg tablet,extended 50 mg PO DAILY 30 days #30 tabs 07/14/24 release 24 hr (Myrbetriq) lidocaine 5 % topical patch 1 patch topical DAILY #15 ea 07/26/24 (Lidoderm) furosemide 40 mg tablet 40 mg PO DAILY #90 tabs 08/10/24 losartan 25 mg tablet 25 mg PO DAILY #90 tabs 10/26/24 Allergies Allergy/AdvReac Type Severity Reaction Status Date / Time montelukast [Singulair] Allergy Unknown itching/marysol Verified 12/22/24 21:40 h Review of Systems Review of Systems: Patient reports ?dizziness? shortness of breath Yes Other (Patient is poor historian) [facility] Past Medical History Medical History Persistent atrial fibrillation Elevated liver enzymes NSTEMI (non-ST elevated myocardial infarction) Anxiety Asymmetrical thyroid CHF (congestive heart failure) COVID-19 Renal cyst, acquired, left Obstruction, uropathy Thrombosed external hemorrhoid COPD (chronic obstructive pulmonary disease) Atrial fibrillation Gout Asthma Alcohol abuse Nephrolithiasis Knee arthropathy Osteoarthritis Diabetes Arthritis Hypertension Surgical History Hx of bilateral cataract extraction Hx of hysterectomy Hx of lithotripsy History of total right knee replacement History of esophagogastroduodenoscopy (EGD) Hx of cystoscopy Hx of colonoscopy History of total knee arthroplasty Social History Social History Household Members: None Household Members Other:: DAUGHTER Housing: Apartment Housing Other:: low income housing Do you presently have visiting nurse or other home services: Yes (WAITER/WAITRESS TAKE OUT) Unable to assess alcohol history related to: Unknown Alcohol intake: unknown Patient Tobacco Use Status: Never used Tobacco e-Cigarette/Vaping Use: Never Used Second Hand Smoke Exposure: No Advance Directives: Yes Advance Directives on File: Yes Advance Directives Date on File: 09/07/22 service: No Current occupational status: disabled Physical Exam ED Vital Signs: Vital Signs - 24 hr 12/22/24 21:06 12/22/24 21:52 12/22/24 22:13 Temperature 99.2 F 100.8 F H Pulse Rate 170 H 109 H Respiratory Rate 38 H 28 H Blood Pressure 170/94 H 147/114 H Pulse Oximetry 96 93 Oxygen Delivery Method Room Air Room Air 12/22/24 22:38 12/22/24 22:59 12/22/24 23:25 Temperature Pulse Rate 130 H 135 H 130 H Respiratory Rate 47 H 39 H 30 H Blood Pressure 151/72 H 147/78 H 150/75 H Pulse Oximetry 92 94 94 Oxygen Delivery Method Room Air Room Air Room Air BMI result Body Mass Index 38.1 Const Other: Appearance: Alert. Oriented X1. No acute distress. Eyes: Pupils equal, round and reactive to light. ENT: Pharynx normal. Neck: Normal inspection. Neck supple. No lymph nodes noted. No crepitus CVS: Heart rate irregularly irregular, between 160 and 170, Pulses normal. Normal S1 and S2 Respiratory: No respiratory distress. Breath sounds normal. No Wheezing. No rales Abdomen: Soft and nontender. No rigidity. No distention. Skin: Skin warm and dry. Normal skin color. Normal skin turgor. Extremities: No lower extremity edema. No Lacerations. No Rash Neuro: Oriented X1. No motor deficit. No sensory deficit. Moving all extremities. No slurred speech. CN 2 through 12 grossly intact Psych: Anxious Course Course Course Narrative: Patient's daughter is also unsure about patient's medications, compliance. Patient unable to give any significant history. Overall, seems that patient is not compliant with her medications including Eliquis. Patient was given p.o. metoprolol 25 mg. Then Cardizem drip. Initially when patient came in, the chest x-ray that was taken in the patient's room showed an infiltrate in the right lower lobe, before we got all the labs, patient was given a small bolus of 200 mL of normal saline, azithromycin and ceftriaxone. Patient has not had any episodes of hypotension. All of patient's labs pending, sepsis not suspected I was informed by the patient's nurse that the patient has a bit of vomit in her cheek, looked coffee-ground. I did not see any coffee-ground emesis in the patient's vomit bag, patient has not been vomiting. With patient's permission, rectal exam was done. Heme negative Medications Administered Generic Name Dose Route Start Last Admin Trade Name Freq PRN Reason Stop Dose Admin Azithromycin 500 mg/ Sodium 250 mls @ 125 mls/hr 12/22/24 22:14 12/22/24 22:43 Chloride IV 12/23/24 00:13 125 mls/hr ONCE ONE Administration Discontinued Medications Generic Name Dose Route Start Last Admin Trade Name Freq PRN Reason Stop Dose Admin Ceftriaxone Sodium 1 gm 12/22/24 22:14 12/22/24 22:44 Ceftriaxone Sodium 1 Gm Vial IVPUSH 12/22/24 22:15 1 gm ONCE ONE Administration Sodium Chloride 200 mls @ 999 mls/hr 12/22/24 22:14 12/22/24 23:25 Ns IVCONT 12/22/24 22:26 Infused .Q13M ONE Infusion Lorazepam 1 mg 12/22/24 23:35 12/22/24 23:39 Lorazepam 2 Mg/Ml Vial IVPUSH 12/22/24 23:36 1 mg ONCE ONE Administration Metoprolol Tartrate 5 mg 12/22/24 21:45 12/22/24 21:49 Metoprolol Tartrate 5 Mg/5 Ml Vial IVPUSH 12/22/24 21:46 5 mg ONCE ONE Administration Protocol Medical Decision Making Medical Decision Making MDM Narrative: My interpretation of EKG: Atrial fibrillation with RVR, heart rate 155, no ST segment depression or elevation, nonspecific T-wave depressions less than 1 mm in lateral leads, QTC 498 My interpretation of labs: Patient's white blood cell count 18.9, chemistry does not show any acute abnormality other than a glucose of 400. Lactic acid 2.9. Urinalysis negative for UTI, occult stool test negative for heme. Patient's troponin is elevated at 6303, baseline in the 300s, BNP 2 days 2654, baseline of 360 Patient's urine toxicology negative. Serology negative for influenza RSV and COVID -patient received 5 units of insulin Patient received 2 mL bolus of fluids due to patient's CHF. Pneumonitis suspected, patient received empiric antibiotics with ceftriaxone and azithromycin. Sepsis not suspected Chest x-ray shows right lower lobe pneumonia, no overt pulmonary edema Given patient's elevated troponin, other sets of labs, EKG, history of medication noncompliance, starting heparin was considered. I texted our oracle fusion middleware developer on-call Dr. Nichols, response pending. No call back from Cardiology yet, I discussed the patient with Dr. Abraham, we decided they would be best to go ahead and start heparin Differential Diagnosis Differential Diagnoses: The differential diagnosis associated with the presentation includes (CHF, pneumonia, NSTEMI, viral URI) Admission/Observation Consideration of admission/observation: Escalation of care including admission/observation considered Consult Healthcare Provider Management of the patient was discussed with: Hospitalist and [employer] Assembler Lab Data MDM Lab Attestation statement: I reviewed the patient's lab results. 12/22/24 21:35 12/22/24 22:22 Labs: Lab Results 12/22/24 12/22/24 12/22/24 Range/Units 21:34 21:35 22:22 WBC 18.9 H (4.8-10.8) X10*3/uL RBC 4.40 (4.20-5.50) X10*6/uL Hgb 12.5 (12.0-16.0) g/dl Hct 37.6 (37.0-47.0) % MCV 85.5 (80.0-98.0) fL MCH 28.4 (27.0-33.0) pg MCHC 33.2 (31.0-35.0) g/dl RDW 13.2 (11.0-16.0) % Plt Count 304 (160-400) X10*3/uL MPV 10.7 (9.4-12.3) fL Immature Gran % (Auto) Cancelled Neut % (Auto) Cancelled Lymph % (Auto) Cancelled [place] % (Auto) Cancelled Eos % (Auto) Cancelled Baso % (Auto) Cancelled Lymph # (Auto) Cancelled [place] # (Auto) Cancelled Eos # (Auto) Cancelled Baso # (Auto) Cancelled Abs Immat Gran (auto) Cancelled Absolute Neuts (auto) Cancelled Absolute Nucleated RBC 0.000 (0.0-0.012) X10*3/uL Nucleated RBC % (auto) 0.0 (0.0-0.2) /100WBC Neutrophils % (Manual) 92 H (45-73) % Band Neutrophils % 0 L (3-5) % Monocytes % (Manual) 8 (2-11) % Abs Neuts (Manual) 17.4 H (2.0-8.3) X10*3/uL Monocytes # (Manual) 1.5 H (0.1-1.2) X10*3/uL Platelet Estimate NORMAL (NORMAL) Plt Morphology Comment NORMAL RBC Morphology NORMAL PT 13.1 H (10.9-12.4) SEC INR 1.1 (0.9-1.1) Sodium 139 (135-145) mmol/L Potassium 4.4 (3.3-5.1) mmol/L Chloride 104 (96-108) mmol/L Carbon Dioxide 19 L (22-29) mmol/L Anion Gap 20 (12-20) BUN 23 H (9-16) mg/dL Creatinine 1.22 (0.5-1.4) mg/dL Estim Creat Clear Calc 39.4 Estimated GFR 42 Random Glucose 400 H* (60-115) mg/dL Lactic Acid (0.5-2.0) mmol/L Calcium 9.8 (8.4-10.2) mg/dL Magnesium 2.0 (1.6-2.6) mg/dL Total Bilirubin 1.2 H (0.0-1.0) mg/dL Direct Bilirubin 0.4 (0.0-0.5) mg/dL AST 60 H (5-31) U/L ALT 13 (0-31) U/L Alkaline Phosphatase 102 (39-117) U/L Troponin I High Sens 6302.9 H* D (<3.5-17.0) ng/L B-Natriuretic Peptide 2654 H (<100) pg/mL Total Protein 8.0 (6.5-8.0) g/dL Albumin 3.9 (3.5-5.0) g/dL Lipase 9 (8-78) U/L Urine Color Urine Appearance Urine pH (5.0-9.0) Ur Specific [place] (1.005-1.025) Urine Protein (Neg-Trace) mg/dL Urine Glucose (UA) (Negative) mg/dL Urine Ketones (Negative) mg/dL Urine Blood (Negative) Urine Nitrite (Negative) Ur Leukocyte Esterase (Negative) Urine RBC (0-2) /HPF Urine WBC (0-5) /HPF Ur Squamous Epith Cells (0-2) /HPF Urine Bacteria (None Seen) Hyaline Casts (0-2) /LPF Granular Casts Stool Occult Blood NEGATIVE (NEGATIVE) Urine Opiates Screen (Not Detect) Ur Buprenorphine Scrn (Not Detect) ng/mL Ur Oxycodone Screen (Not Detect) ng/mL Urine Methadone Screen (Not Detect) ng/mL Urine Fentanyl Screen (Not Detect) Ur Barbiturates Screen (Not Detect) Ur Phencyclidine Scrn (Not Detect) Ur Amphetamines Screen (Not Detect) U Benzodiazepines Scrn (Not Detect) Urine Cocaine Screen (Not Detect) U Marijuana (THC) Screen (Not Detect) Ethyl Alcohol < 10 mg/dL Influenza Type A (PCR) NEGATIVE (Negative) Influenza Type B (PCR) NEGATIVE (Negative) RSV RNA Qual (PCR) NEGATIVE (Negative) SARS-CoV-2 RNA (RT-PCR) NEGATIVE (Negative) 12/22/24 12/22/24 Range/Units 22:38 23:29 WBC (4.8-10.8) X10*3/uL RBC (4.20-5.50) X10*6/uL Hgb (12.0-16.0) g/dl Hct (37.0-47.0) % MCV (80.0-98.0) fL MCH (27.0-33.0) pg MCHC (31.0-35.0) g/dl RDW (11.0-16.0) % Plt Count (160-400) X10*3/uL MPV (9.4-12.3) fL Immature Gran % (Auto) Neut % (Auto) Lymph % (Auto) [place] % (Auto) Eos % (Auto) Baso % (Auto) Lymph # (Auto) [place] # (Auto) Eos # (Auto) Baso # (Auto) Abs Immat Gran (auto) Absolute Neuts (auto) Absolute Nucleated RBC (0.0-0.012) X10*3/uL Nucleated RBC % (auto) (0.0-0.2) /100WBC Neutrophils % (Manual) (45-73) % Band Neutrophils % (3-5) % Monocytes % (Manual) (2-11) % Abs Neuts (Manual) (2.0-8.3) X10*3/uL Monocytes # (Manual) (0.1-1.2) X10*3/uL Platelet Estimate (NORMAL) Plt Morphology Comment RBC Morphology PT (10.9-12.4) SEC INR (0.9-1.1) Sodium (135-145) mmol/L Potassium (3.3-5.1) mmol/L Chloride (96-108) mmol/L Carbon Dioxide (22-29) mmol/L Anion Gap (12-20) BUN (9-16) mg/dL Creatinine (0.5-1.4) mg/dL Estim Creat Clear Calc Estimated GFR Random Glucose (60-115) mg/dL Lactic Acid 2.9 H* (0.5-2.0) mmol/L Calcium (8.4-10.2) mg/dL Magnesium (1.6-2.6) mg/dL Total Bilirubin (0.0-1.0) mg/dL Direct Bilirubin (0.0-0.5) mg/dL AST (5-31) U/L ALT (0-31) U/L Alkaline Phosphatase (39-117) U/L Troponin I High Sens (<3.5-17.0) ng/L B-Natriuretic Peptide (<100) pg/mL Total Protein (6.5-8.0) g/dL Albumin (3.5-5.0) g/dL Lipase (8-78) U/L Urine Color Yellow Urine Appearance Clear Urine pH 5.5 (5.0-9.0) Ur Specific [place] >= 1.030 H (1.005-1.025) Urine Protein >=1000 (4+) H (Neg-Trace) mg/dL Urine Glucose (UA) >=1000 H (Negative) mg/dL Urine Ketones 15 (Negative) mg/dL Urine Blood Large (3+) H (Negative) Urine Nitrite Negative (Negative) Ur Leukocyte Esterase Negative (Negative) Urine RBC >20 H (0-2) /HPF Urine WBC 0-5 (0-5) /HPF Ur Squamous Epith Cells 0-2 (0-2) /HPF Urine Bacteria None Seen (None Seen) Hyaline Casts 6-10 (0-2) /LPF Granular Casts Present Stool Occult Blood (NEGATIVE) Urine Opiates Screen Not Detected (Not Detect) Ur Buprenorphine Scrn Not Detected (Not Detect) ng/mL Ur Oxycodone Screen Not Detected (Not Detect) ng/mL Urine Methadone Screen Not Detected (Not Detect) ng/mL Urine Fentanyl Screen Not Detected (Not Detect) Ur Barbiturates Screen Not Detected (Not Detect) Ur Phencyclidine Scrn Not Detected (Not Detect) Ur Amphetamines Screen Not Detected (Not Detect) U Benzodiazepines Scrn Not Detected (Not Detect) Urine Cocaine Screen Not Detected (Not Detect) U Marijuana (THC) Screen Not Detected (Not Detect) Ethyl Alcohol mg/dL Influenza Type A (PCR) (Negative) Influenza Type B (PCR) (Negative) RSV RNA Qual (PCR) (Negative) SARS-CoV-2 RNA (RT-PCR) (Negative) Independent Interpretation I performed an independent interpretation of an: EKG and Plain X-Ray Radiology Impression Discussion of test interpretation with radiology: I have reviewed the radiologist's reading. Radiologist Impression: Right lower lobe consolidation. Heart size is normal. No acute fracture. IMPRESSION: Right lower lobe pneumonia. Critical Care Time Critical Care Time Critical Care Time: Yes Total Critical Care Time: 75 Attestation: I have personally provided critical care time. Time includes review of lab data, radiology results, discussion with consultants, and monitoring for potential decompensation. Intervention performed as documented. Discharge Plan Discharge Clinical Impression: Atrial fibrillation with RVR, CHF (congestive heart failure), Non-ST elevation [place] (NSTEMI), Pneumonia Patient Disposition: Admitted As Inpatient Prescriptions: No Action famotidine 20 mg tablet 20 mg PO BID Qty: 180 2RF Myrbetriq 50 mg tablet extended release 24 hr 50 mg PO DAILY 30 Days Qty: 30 5RF furosemide 40 mg tablet 40 mg PO DAILY Qty: 90 3RF fluticasone propion-salmeterol [Advair Diskus] 250-50 mcg/dose blister with device 1 puff INHALATION BID PRN (Reason: shortness or breath or wheezing) albuterol sulfate 2.5 mg /3 mL (0.083 %) solution for nebulization 1 amp inhalation Q6H PRN (Reason: Wheezing) (DME) blood-glucose meter [OneTouch Verio Flex meter] [facility] [place] MISCELLANEOUS DIRECTED (DME) OneTouch Verio test strips Strip MISCELLANEOUS BID (DME) lancets [OneTouch Delica Plus Lancet] 33 gauge [facility] MISCELLANEOUS BID Eliquis 5 mg tablet 5 mg PO BID Qty: 60 0RF acetaminophen 325 mg tablet 325 mg PO Q6H PRN (Reason: mild pain) cetirizine 10 mg Tablet 10 mg PO DAILY PRN (Reason: allergies) pyridoxine (vitamin B6) 100 mg Tablet 100 mg PO DAILY simethicone 80 mg Tablet,Chewable 80 mg PO QID PRN (Reason: Indigestion) tramadol 50 mg tablet 50 mg PO Q6H PRN (Reason: Pain) lidocaine [Lidoderm] 5 % adhesive patch,medicated 1 patch topical DAILY Qty: 15 0RF Rx Instructions: leave on most painful area for up to 12 hrs metformin 850 mg tablet 850 mg PO DAILY atorvastatin 80 mg tablet 80 mg PO DAILY albuterol sulfate [Ventolin HFA] 90 mcg/actuation HFA aerosol inhaler 2 puff inhalation Q4-6H PRN (Reason: Wheezing) clopidogrel 75 mg tablet 75 mg PO DAILY metoprolol succinate [Toprol XL] 50 mg tablet extended release 24 hr 50 mg PO DAILY codeine-guaifenesin 10-100 mg/5 mL liquid 10 ml PO Q4-6H PRN (Reason: cough) Qty: 473 0RF duloxetine 30 mg capsule,delayed release(DR/EC) 30 mg PO DAILY trazodone 100 mg tablet 100 mg PO BEDTIME triamcinolone acetonide 0.1 % ointment 1 topical BID hydroxyzine HCl 10 mg tablet 10 mg PO Q12H PRN (Reason: itch) cholecalciferol (vitamin D3) [Vitamin D3] 50 mcg (2,000 unit) capsule 50 mcg PO DAILY calcium citrate-vitamin D3 315 mg-6.25 mcg (250 unit) tablet 1 tab PO BID bisacodyl [Dulcolax (bisacodyl)] 5 mg tablet,delayed release (DR/EC) 10 mg PO BEDTIME Qty: 180 4RF docusate sodium 100 mg capsule 100 mg PO DAILY Qty: 90 3RF FiberCon 625 mg tablet 625 mg PO DAILY Qty: 90 3RF losartan 25 mg tablet 25 mg PO DAILY Qty: 90 3RF alcohol swabs [Alcohol Prep Pads] Pads, Medicated topical BID ferrous gluconate 324 mg (38 mg iron) tablet 324 mg PO BID (DME) blood pressure test kit-large Kit See Rx Instructions .ROUTE BID Qty: 1 Rx Instructions: As directed Print Language: Ug[place]an
[2024-12-22 22:21] LABS: Influenza A PCR NEGATIVE (Negative); Influenza B PCR NEGATIVE (Negative); Resp Syncy Virus RNA Qual PCR NEGATIVE (Negative); SARS COV2 PCR INHOUSE NEGATIVE (Negative)
[2024-12-22 22:28] LABS: OBS Int Ctl Valid YES; OBS1 NEGATIVE (NEGATIVE)
[2024-12-22 22:31] LABS: Troponin-I High Sensitivity 6302.9 ng/L (<3.5-17.0)
[2024-12-22] MEDS: Azithromycin 500 MG in 0.9 % Sodium Chloride 250 ML 125 MG IV (22:43)
[2024-12-22] MEDS: cefTRIAXone sodium 1 GM VIAL IVPUSH (22:44)
[2024-12-22 22:49] LABS: Alanine Aminotransferase 13 U/L (0-31); Albumin Level 3.9 g/dL (3.5-5.0); Alkaline Phosphatase 102 U/L (39-117); Anion Gap 20 (12-20); Aspartate Amino Transferase 60 U/L (5-31); Bilirubin Direct 0.4 mg/dL (0.0-0.5); Bilirubin Total 1.2 mg/dL (0.0-1.0); Blood Urea Nitrogen 23 mg/dL (9-16); Calcium 9.8 mg/dL (8.4-10.2); Carbon Dioxide 19 mmol/L (22-29); Chloride 104 mmol/L (96-108); Creatinine Clr Calc Pharmacy 39.4; Estimated Glomerular Filt Rate 42; Glucose Random 400 mg/dL (60-115); Lipase 9 U/L (8-78); Potassium 4.4 mmol/L (3.3-5.1); Sodium 139 mmol/L (135-145)
[2024-12-22 22:58] LABS: B Type Natriuretic Peptide 2654 pg/mL (<100)
[2024-12-22 23:10] LABS: Lactic Acid 2.9 mmol/L (0.5-2.0)
--- NOTE | 2024-12-22 23:30 | PC.NURSE ---
this rn assumed care of pt from ems @ 2100. @ 2106 temp 99.2 HR [address] drake made aware per md no sepsis alert call and pharmacist in charge aware pt placed on knuckle strap sewer @[address] drake made aware per md no sepsis alert to call pharmacist in charge aware @[address] drake made aware per no sepsis alert @[address] drake made aware
[2024-12-22 23:35] LABS: Appearance Urine Clear; Color Urine Yellow; Glucose Urine UA >=1000 mg/dL (Negative); Leukocyte Esterase Urine Negative (Negative); Nitrite Urine Negative (Negative); PH 5.5 (5.0-9.0); Specific Gravity - Urine >= 1.030 (1.005-1.025); UMIC TRIGGER UACC YES; Urine Blood Large (3+) (Negative); Urine Ketones 15 mg/dL (Negative); Urine Protein >=1000 (4+) mg/dL (Neg-Trace)
[2024-12-22] MEDS: LORazepam 2 MG/ML VIAL 1 MG IVPUSH (23:39)
[2024-12-22 23:44] LABS: Amphetamine Screen Urine Not Detected (Not Detect); Barbiturates, Urine Not Detected (Not Detect); Benzodiazepines Screen Urine Not Detected (Not Detect); Buprenorphine Scr Not Detected (Not Detect); Cannabinoid Screen Urine Not Detected (Not Detect); Cocaine Screen Urine Not Detected (Not Detect); Fentanyl, urine Not Detected (Not Detect); Methadone Screen, Urine Not Detected (Not Detect); Opiate Screen Urine Not Detected (Not Detect); Oxycodone Screen Urine Not Detected (Not Detect); Phencyclidine Screen Urine Not Detected (Not Detect)
[2024-12-22 23:47] LABS: Bacteria Urine None Seen (None Seen); Granular Casts Urine Present; RBC Urine >20 /HPF (0-2); Squamous Epithelial Cell Urine 0-2 /HPF (0-2); WBC Urine 0-5 /HPF (0-5)
[2024-12-22] MEDS: dilTIAZem HCL 50 MG/10 ML VIAL 10 MG IVPUSH (23:54)
[2024-12-23] VITALS (19 sets, daily range): BP systolic 99–161; BP diastolic 52–94; PULSE 62–115; RESP 16–44; TEMP 36–38.6; O2SAT 86–99
[2024-12-23] MEDS: Insulin Regular, Human 100 UNIT/ML 10 ML VIAL IVPUSH ×2 (00:01→01:15)
[2024-12-23] MEDS: Furosemide 40 MG/4 ML VIAL IVPUSH ×3 (00:02→08:46)
--- NOTE | 2024-12-23 00:15 | P.HPHOSP_ITS ---
History of Present Illness Date of Service: 12/23/24 Chief Complaint: Dyspnea This is a 79-year-old female with pertinent history of atrial fibrillation on Eliquis, congestive heart failure with preserved ejection fraction, CAD status post stent, moderate to severe MR, COPD not on home oxygen, hypertension, CKD, mood disorder, overactive bladder, wyh-qwstege-untuepgee diabetes mellitus who presents to the emergency department for evaluation of dyspnea. History obtained with the help of medical interpreter. Patient states she has been feeling unwell and has been lying in bed for the last 2 days. Daughter reports productive cough that has been ongoing for the last 2 days. Patient did not take any of her home medications for over 48 hours now. Patient's daughter states that patient has been noncompliant with the medications. Upon persistent questioning, patient reports dyspnea which is worse when lying down. Also has fevers. Does endorse midsternal chest discomfort. No palpitations, abdominal pain, changes in urinary or bowel habits. In the emergency department, patient was found to be in fluid overload and BNP found to be elevated. Patient given IV Lasix. Also found to have right-sided pneumonia on imaging with leukocytosis and fever. Given empiric IV ceftriaxone and Rocephin in the ER. Troponin found to be significantly elevated and patient was initiated on IV heparin. Review of Systems 2 Constitutional: Constitutional: Reports chills, Reports fatigue, Reports fever(s), Reports malaise, Reports poor appetite and Reports weakness Cardiovascular: Cardiovascular: Reports dyspnea on exertion and Reports orthopnea Respiratory: Respiratory: Reports cough and Reports dyspnea on exertion Gastrointestinal: Gastrointestinal: Reports no additional gastrointestinal complaints Genitourinary: Genitourinary: Reports no additional female genitourinary complaints Neurologic: Reports weakness Endocrine: Endocrine: Reports fatigue [facility], [facility] Medical History Persistent atrial fibrillation Elevated liver enzymes NSTEMI (non-ST elevated myocardial infarction) Anxiety Asymmetrical thyroid CHF (congestive heart failure) COVID-19 Renal cyst, acquired, left Obstruction, uropathy Thrombosed external hemorrhoid COPD (chronic obstructive pulmonary disease) Atrial fibrillation Gout Asthma Alcohol abuse Nephrolithiasis Knee arthropathy Osteoarthritis Diabetes Arthritis Hypertension Surgical History Hx of bilateral cataract extraction Hx of hysterectomy Hx of lithotripsy History of total right knee replacement History of esophagogastroduodenoscopy (EGD) Hx of cystoscopy Hx of colonoscopy History of total knee arthroplasty Social History Household Members: None Household Members Other:: DAUGHTER Housing: Apartment Housing Other:: low income housing Do you presently have visiting nurse or other home services: Yes ([employer]IL[employer]) Unable to assess alcohol history related to: Unknown Alcohol intake: unknown Patient Tobacco Use Status: Never used Tobacco e-Cigarette/Vaping Use: Never Used Second Hand Smoke Exposure: No Advance Directives: Yes Advance Directives on File: Yes Advance Directives Date on File: 09/07/22 service: No Current occupational status: disabled Meds Allergies Allergy/AdvReac Type Severity Reaction Status Date / Time montelukast [Singulair] Allergy Unknown itching/marysol Verified 12/22/24 21:40 h Active Medications: Current Medications Heparin Sodium (Porcine) (Heparin Sodium,Porcine 5,000 Unit/Ml Vial) 3,800 unit 40 unit/kg (3800 unit) IVPUSH PROTOCOL BOLUS PRN; Protocol PRN Reason: 40 unit/kg - Heparin Protocol Heparin Sodium (Porcine) (Heparin Sodium,Porcine 5,000 Unit/Ml Vial) 7,600 unit 80 unit/kg (7600 unit) IVPUSH PROTOCOL BOLUS PRN; Protocol PRN Reason: 80 unit/kg - Heparin Protocol Heparin Sodium/Sodium Chloride (Heparin Sodium,Porcine/1/2ns) 25,000 unit in 250 mls @ 0 mls/hr IVCONT .Q0M GONZALEZ; Protocol Home Medications ?Medication ?Instructions ?Recorded ?Confirmed ?Last Taken ?Type albuterol sulfate 2.5 mg/3 mL 1 amp inhalation Q6H PRN Wheezing 09/06/22 10/26/24 12/19/22 History (0.083 %) solution for nebulization blood sugar diagnostic (OneTouch 09/06/22 10/26/24 Unknown History Verio test strips) blood-glucose meter (OneTouch 09/06/22 10/26/24 Unknown History Verio Flex Meter) fluticasone 250 mcg-salmeterol 50 1 puff inhalation BID PRN 09/06/22 10/26/24 12/19/22 History mcg/dose blistr powdr for shortness or breath or wheezing inhalation (Advair Diskus) lancets 33 gauge (OneTouch Delica 09/06/22 10/26/24 Unknown History Plus Lancet) albuterol sulfate 90 mcg/actuation 2 puff inhalation Q4-6H PRN 10/23/22 10/26/24 Unknown History aerosol inhaler (Ventolin HFA) Wheezing atorvastatin 80 mg tablet 80 mg PO DAILY 10/23/22 10/26/24 12/19/22 History metformin 850 mg tablet 850 mg PO DAILY 10/23/22 10/26/24 12/18/22 History clopidogrel 75 mg tablet 75 mg PO DAILY 04/27/23 10/26/24 11/10/23 History metoprolol succinate 50 mg 50 mg PO DAILY 04/27/23 10/26/24 Unknown History tablet,extended release 24 hr (Toprol XL) acetaminophen 325 mg tablet 325 mg PO Q6H PRN mild pain 05/25/23 10/26/24 Unknown History duloxetine 30 mg capsule,delayed 30 mg PO DAILY 07/28/23 10/26/24 Unknown History release cetirizine 10 mg tablet 10 mg PO DAILY PRN allergies 04/06/24 10/26/24 Unknown History pyridoxine (vitamin B6) 100 mg 100 mg PO DAILY 04/06/24 10/26/24 Unknown History tablet simethicone 80 mg chewable tablet 80 mg PO QID PRN Indigestion 04/06/24 10/26/24 Unknown History tramadol 50 mg tablet 50 mg PO Q6H PRN Pain 04/06/24 10/26/24 Unknown History calcium 315 mg (as 1 tab PO BID 04/21/24 10/26/24 Unknown History citrate)-vitamin D3 6.25 mcg (250 unit) tablet cholecalciferol (vitamin D3) 50 50 mcg PO DAILY 04/21/24 10/26/24 Unknown History mcg (2,000 unit) capsule (Vitamin D3) hydroxyzine HCl 10 mg tablet 10 mg PO Q12H PRN itch 04/21/24 10/26/24 Unknown History trazodone 100 mg tablet 100 mg PO BEDTIME 04/21/24 10/26/24 Unknown History triamcinolone acetonide 0.1 % 1 topical BID 04/21/24 10/26/24 Unknown History topical ointment alcohol swabs (Alcohol Prep Pads) pad topical BID 10/19/24 10/26/24 Unknown History blood pressure test kit-large #1 ea 10/19/24 10/26/24 Unknown History ferrous gluconate 324 mg (38 mg 324 mg PO BID 10/19/24 10/26/24 Unknown History iron) tablet Physical Exam 2 Vital Signs and Narrative: Vital Signs: Last Vital Signs Temp 100.8 F H 12/22/24 22:13 Pulse 129 H 12/22/24 23:54 Resp 30 H 12/22/24 23:25 BP 143/84 H 12/23/24 00:02 Pulse Ox 94 12/22/24 23:25 O2 Del Method Room Air 12/22/24 23:25 BMI result Body Mass Index 38.1 Middle-aged female lying in bed in distress Neck supple Regular rate and rhythm, S1-S2 heard Bilateral crackles present Abdomen soft nontender, no guarding, no rigidity Patient is awake, alert and oriented x3 ; no focal motor deficit Psych: Normal mood Bilateral pedal edema Results Labs 12/22/24 21:35 12/22/24 22:22 Labs: Laboratory Results - last 24 hr 12/22/24 12/22/24 12/22/24 21:34 21:35 22:22 MCV 85.5 MCH 28.4 MCHC 33.2 RDW 13.2 Plt Count 304 MPV 10.7 Immature Gran % (Auto) Cancelled Neut % (Auto) Cancelled Lymph % (Auto) Cancelled [place] % (Auto) Cancelled Eos % (Auto) Cancelled Baso % (Auto) Cancelled Lymph # (Auto) Cancelled [place] # (Auto) Cancelled Eos # (Auto) Cancelled Baso # (Auto) Cancelled Abs Immat Gran (auto) Cancelled Absolute Neuts (auto) Cancelled Absolute Nucleated RBC 0.000 Nucleated RBC % (auto) 0.0 Neutrophils % (Manual) 92 H Band Neutrophils % 0 L Monocytes % (Manual) 8 Abs Neuts (Manual) 17.4 H Monocytes # (Manual) 1.5 H Platelet Estimate NORMAL Plt Morphology Comment NORMAL RBC Morphology NORMAL PT 13.1 H INR 1.1 Anion Gap 20 Estim Creat Clear Calc 39.4 Estimated GFR 42 Random Glucose 400 H* Lactic Acid Calcium 9.8 Magnesium 2.0 Total Bilirubin 1.2 H Direct Bilirubin 0.4 AST 60 H ALT 13 Alkaline Phosphatase 102 B-Natriuretic Peptide 2654 H Total Protein 8.0 Albumin 3.9 Lipase 9 Urine Color Urine Appearance Urine pH Ur Specific [place] Urine Protein Urine Glucose (UA) Urine Ketones Urine Blood Urine Nitrite Ur Leukocyte Esterase Urine RBC Urine WBC Ur Squamous Epith Cells Urine Bacteria Hyaline Casts Granular Casts Stool Occult Blood NEGATIVE Urine Opiates Screen Ur Buprenorphine Scrn Ur Oxycodone Screen Urine Methadone Screen Urine Fentanyl Screen Ur Barbiturates Screen Ur Phencyclidine Scrn Ur Amphetamines Screen U Benzodiazepines Scrn Urine Cocaine Screen U Marijuana (THC) Screen Ethyl Alcohol < 10 Influenza Type A (PCR) NEGATIVE Influenza Type B (PCR) NEGATIVE RSV RNA Qual (PCR) NEGATIVE SARS-CoV-2 RNA (RT-PCR) NEGATIVE 12/22/24 12/22/24 22:38 23:29 MCV MCH MCHC RDW Plt Count MPV Immature Gran % (Auto) Neut % (Auto) Lymph % (Auto) [place] % (Auto) Eos % (Auto) Baso % (Auto) Lymph # (Auto) [place] # (Auto) Eos # (Auto) Baso # (Auto) Abs Immat Gran (auto) Absolute Neuts (auto) Absolute Nucleated RBC Nucleated RBC % (auto) Neutrophils % (Manual) Band Neutrophils % Monocytes % (Manual) Abs Neuts (Manual) Monocytes # (Manual) Platelet Estimate Plt Morphology Comment RBC Morphology PT INR Anion Gap Estim Creat Clear Calc Estimated GFR Random Glucose Lactic Acid 2.9 H* Calcium Magnesium Total Bilirubin Direct Bilirubin AST ALT Alkaline Phosphatase B-Natriuretic Peptide Total Protein Albumin Lipase Urine Color Yellow Urine Appearance Clear Urine pH 5.5 Ur Specific [place] >= 1.030 H Urine Protein >=1000 (4+) H Urine Glucose (UA) >=1000 H Urine Ketones 15 Urine Blood Large (3+) H Urine Nitrite Negative Ur Leukocyte Esterase Negative Urine RBC >20 H Urine WBC 0-5 Ur Squamous Epith Cells 0-2 Urine Bacteria None Seen Hyaline Casts 6-10 Granular Casts Present Stool Occult Blood Urine Opiates Screen Not Detected Ur Buprenorphine Scrn Not Detected Ur Oxycodone Screen Not Detected Urine Methadone Screen Not Detected Urine Fentanyl Screen Not Detected Ur Barbiturates Screen Not Detected Ur Phencyclidine Scrn Not Detected Ur Amphetamines Screen Not Detected U Benzodiazepines Scrn Not Detected Urine Cocaine Screen Not Detected U Marijuana (THC) Screen Not Detected Ethyl Alcohol Influenza Type A (PCR) Influenza Type B (PCR) RSV RNA Qual (PCR) SARS-CoV-2 RNA (RT-PCR) Assessment and Plan (1) CHF (congestive heart failure): Status: Acute (2) Pneumonia: Status: Acute (3) Non-ST elevation LA (NSTEMI): Status: Acute (4) Atrial fibrillation with RVR: Status: Acute Plan This is a 79-year-old female with pertinent history of atrial fibrillation on Eliquis, congestive heart failure with preserved ejection fraction, CAD status post stent, moderate to severe MR, COPD not on home oxygen, hypertension, CKD, mood disorder, overactive bladder, ilf-mfuacwt-jggdwkcif diabetes mellitus who presents to the emergency department for evaluation of dyspnea. #. Acute on chronic congestive heart failure with preserved ejection fraction: Due to noncompliance with medications. Will admit patient and initiate IV diuresis. Strict I's and O's. Low-salt diet. #. AFib with RVR in the setting of above: Rate controlled with IV Lopressor and IV diltiazem in the ER. On beta-savanna p.o. #. Sepsis due to right-sided pneumonia: Continue IV ceftriaxone and azithromycin. Lactic acid and blood culture obtained. #. NSTEMI: Initiated on IV heparin in the ER. Appreciate cardiology. Given aspirin. Obtaining echo #. Gbg-vmoqxse-ztwjlocgq diabetes mellitus with hyperglycemia: Initiating Accu- Cheks sliding scale insulin #. Acute lactic acidosis due to sepsis and metformin use #. Mood disorder: Continue home mood stabilizers #. Overactive bladder: On mirabegron #. COPD: No exacerbation during admission Med rec pending DVT prophylaxis: IV heparin Full code. Discussed with patient at bedside Admit as inpatient and will require two night minimum hospital stay for IV antibiotics, IV diuresis, monitoring of heart rate (as above), which is not possible in a lesser acute setting. Cardiology consult pending Quality Stroke Does the patient have a stroke diagnosis?: No VTE Prior VTE?: No VTE Risk Level:: Medical - moderate - high VTE Device Contraindication: Treatment Not Indicated VTE Drug Contraindication: N/A - Med Ordered
[2024-12-23] MEDS: Heparin Sodium,Porcine/1/2NS 25,000 UNIT/250 ML IV.SOLN 13.22 UNIT IVCONT (00:38)
[2024-12-23] MEDS: Heparin Sodium,Porcine 5,000 UNIT/ML VIAL 5000 UNIT IVPUSH (00:39)
[2024-12-23 00:47] LABS: Reflex Lactate? Lactic Acid Added
[2024-12-23 00:53] LABS: Partial Thromboplastin Time 27.4 SEC (26.0-36.8)
--- NOTE | 2024-12-23 01:10 | PC.NURSE ---
pt noted to be uncomfortable increased work of breathing. this rn made dr bolton and RT aware of pt status. pt desat to 86% RA pt placed on oxymask per RT recommendation awaiting md to bedside
[2024-12-23 01:26] LABS: ~Lactic Acid-LAB USE ONLY 7.4 mmol/L (0.5-2.0)
--- NOTE | 2024-12-23 01:27 | PC.NURSE ---
critical la 7.4 dr bolton made aware no new orders at this time
--- NOTE | 2024-12-23 01:33 | PM.EVENT ---
Event Note Date of Service: 12/23/24 Event Note: Patient extremely dyspneic and tachypneic. Will order CPAP and additional dose of IV Lasix. Will switch IV heparin to subQ Lovenox to reduce volume being given to the patient. Time Spent With Patient Time: Total time managing care of this patient today ____ minutes.
--- NOTE | 2024-12-23 01:34 | PC.NURSE ---
heperin gtt paused per dr bolton orders dr bolton at bedside chargeback analyst made aware
[2024-12-23] MEDS: Morphine Sulfate 2 MG/ML CARTRIDGE IVPUSH (01:46)
[2024-12-23] MEDS: Enoxaparin Sodium 100 MG/ML SYRINGE 90 MG SUBCUT ×2 (01:47→13:22)
[2024-12-23] MEDS: Aspirin 300 MG SUPP.RECT PR (01:48)
[2024-12-23 02:00] LABS: ABG Refer to POC result
[2024-12-23 02:03] LABS: ABG Base Excess -2.9 mmol/L; ABG HCO3 20 mmol/L (22-26); ABG pCO2 32 mmHg (32-45); ABG pO2 92 mmHg (83-108)
[2024-12-23 03:01] LABS: Reflex Lactate? 2 Y
[2024-12-23] MEDS: Acetaminophen Supp 650 MG SUPP.RECT PR (03:05)
[2024-12-23 03:19] LABS: Glucose, Whole Blood 348 mg/dL (60-115)
[2024-12-23 04:41] LABS: MANUAL DIFF FLAG NO
[2024-12-23 04:44] LABS: Basophils Absolute Auto 0.1 X10*3/uL (0.0-0.2); Basophils Percent Auto 0.4 % (0-2); Eosinophils Absolute Auto 0.2 X10*3/uL (0.0-0.4); Eosinophils Percent Auto 1.1 % (0-4); Hematocrit 37.7 % (37.0-47.0); Hemoglobin 11.9 g/dl (12.0-16.0); Imm Gran Abs Auto 0.32 X10*3/uL (0.00-0.03); Lymphocytes Absolute Auto 0.6 X10*3/uL (1.2-4.9); Lymphocytes Percent Auto 3.6 % (20-40); Mean Corpuscular HGB Conc 31.6 g/dl (31.0-35.0); Mean Corpuscular Hemoglobin 27.5 pg (27.0-33.0); Mean Corpuscular Volume 87.3 fL (80.0-98.0); Mean Platelet Volume 11.5 fL (9.4-12.3); Monocytes Absolute Auto 0.9 X10*3/uL (0.1-1.2); Monocytes Percent Auto 5.6 % (2-11); Neutrophils Absolute Auto 14.1 x10*3/uL (2.0-8.3); Neutrophils Percent Auto 87.3 % (45-73); Platelet Count 268 X10*3/uL (160-400); Red Blood Count 4.32 X10*6/uL (4.20-5.50); Red Cell Distribution Width 13.2 % (11.0-16.0); White Blood Count 16.2 X10*3/uL (4.8-10.8)
[2024-12-23 05:00] LABS: Anion Gap 19 (12-20); Blood Urea Nitrogen 27 mg/dL (9-16); Calcium 9.5 mg/dL (8.4-10.2); Carbon Dioxide 20 mmol/L (22-29); Chloride 106 mmol/L (96-108); Creatinine Clr Calc Pharmacy 35.5; Estimated Glomerular Filt Rate 38; Glucose Random 340 mg/dL (60-115); Potassium 3.6 mmol/L (3.3-5.1); Sodium 141 mmol/L (135-145)
[2024-12-23 05:16] LABS: ~Lactic Acid-LAB USE ONLY 2.6 mmol/L (0.5-2.0)
--- NOTE | 2024-12-23 05:16 | PC.NURSE ---
critical LA 2.6 dr bolton made aware no new orders
--- NOTE | 2024-12-23 06:01 | PC.NURSE ---
per dr bolton pt removed from cpap by RT RT and this rn at bedside 93% RA per RT will place pt on 2l NC 98%
--- NOTE | 2024-12-23 07:00 | CA_ITS ---
Transthoracic Echocardiogram Patient (Last, First, Middle): Roseanna Hurt, Gender: Female Date of : 1945 Age: 79 Procedure Date: 12/23/2024 Procedure Type: Transthoracic Echocardiogram Location: [facility] – [place] Height: 157.48 cm Weight: 94.35 kg BSA: 1.94 m2 Heart Rate: bpm BP: 108 / 67 mmHg Tilesetter: Referring MD: Balbir Abraham MD Government Gauger: Nomi Nichols MD Symptoms: NSTEMI Study Quality: Fair ECG Rhythm: Atrial Fibrillation Conclusions: - 1. Severely reduced LV ejection fraction of 25-30% 2. Severe biatrial enlargement 3. Mild mitral regurgitation 4. Normal measured RV systolic pressure 5. No pericardial effusion Findings Procedure Information Contrast agent, definity, is being given per protocol without apparent complications. Left Ventricle Normal left ventricular cavity size. There is normal left ventricular wall thickness. The left ventricular systolic function is severely decreased. The visually estimated ejection fraction is between 25-30%. There is severe global hypokinesis. Diastolic function is indeterminate on the basis of available data. regional wall motion abnormality difficult to assess due to atrial fibrillation although appears like distal septal, apical, distal anterior and mid anterior wall appear to be more hypokinetic Right Ventricle Mildly increased right ventricular cavity size. There is normal right ventricular systolic function. Atria The left atrium is severely dilated. There is no evidence of interatrial shunt. The right atrium is severely dilated. Aortic Valve There is mild calcification of the aortic valve. There is no aortic valve stenosis. There is no aortic valve regurgitation. Mitral Valve There is mild anterior and posterior mitral leaflet thickening. There is mild mitral annular calcification. There is mild mitral valve regurgitation. There is no mitral valve stenosis. Pulmonic Valve The pulmonic valve was not well visualized. Tricuspid Valve Likely normal tricuspid valve structure and function. There is mild tricuspid valve regurgitation. The right ventricular systolic pressure is normal. The right ventricular systolic pressure is 23 mmHg. Normal right atrial pressure. There is no evidence of pulmonary hypertension. Great Vessels The aorta was not well visualized. The pulmonary artery was not well visualized. There is no dilatation of the ascending aorta measuring 3.40 cm. Venous The inferior vena cava is normal in size and collapses greater than 50% with inspiration. Pericardium/Pleural There is no evidence of pericardial effusion. Prior Study Comparison Changes noted compared to prior study dated: 04/06/2024. LV ejection fraction is further reduced Measurements 2D Linear Measurements IVSd: 1.09 0.6-0.9/0.6-1.0 cm LVIDd: 4.66 3.9-5.3/4.2-5.9 cm LVIDd Index: 2.40 2.4-3.2/2.2-3.1 cm/m2 LVIDs: 3.75 2.0-3.6 cm LVPWd: 1.11 0.7-1.1 cm Ao Root: 3.10 2.1-3.5 cm LA Diam: 5.20 2.7-3.8/3.0-4.0 cm LAIDs Index: 2.68 1.5-2.3 cm/m2 LV Mass: 230.50 67-162/88-224 g LV Mass Index: 118.81 43-95/49-115 g/m2 LVOT Diam: 2.00 3.0+(-)1.3 cm 2D Systolic Function EF 4C: 29.40 >55% EF 2C: 24.80 >55% EF BiP: 30.50 >55% Mitral Valve MV Pk E: 0.90 MV Decel Time: 187.00 E'Lateral: 8.38 E'Medial: 4.46 E/E' Med: 20.30 E/E' Lat: 10.80 PHT: 55.00 MVA PHT: 4.00 Decel Mcdonald: 4.84 Aortic Valve AoV Pk Kwesi: 1.39 AoV Mn Kwesi: 0.96 AoV VTI: 0.26 AoV Pk Grad: 8.00 Aov Mn Grad: 5.00 QUETA Cont.VTI: 1.33 LVOT LVOT Pk Kwesi: 0.62 LVOT Mn Kwesi: 0.45 LVOT VTI: 0.11 LVOT Pk Grad: 2.00 LVOT Mn Grad: 1.00 LVOT Diam: 2.00 LVOT Area: 3.14 Diastolic Function MV Pk E: 0.90 E'Medial: 4.46 E/E' Med: 20.30 E' Laterial: 8.38 E/E' Lat: 10.80 Right Ventricle TAPSE (mm): 25.00 TVS' Kwesi: 10.00 Tricuspid Valve TR Pk Kwesi: 2.23 TR Pk Grad: 20.00 RA Press: 3.00 RVSP: 23.00 Great Vessels Aorta Ao Root-2D: 3.10 2.0-3.7 cm Ao Asc: 3.40 2.1-3.4 cm Pulmonary Valve PV Pk Kwesi: 0.84 Peak PV Grad: 3.00 Updated in Other Vendor System with Status of Final Noim Nichols MD electronically signed on 12/23/2024 3:13:40 PM with status of Final
[2024-12-23 07:35] LABS: Glucose, Whole Blood 270 mg/dL (60-115)
[2024-12-23] MEDS: Insulin Lispro 100 UNIT/ML 3 ML VIAL SUBCUT ×3 (08:46→18:46)
[2024-12-23] MEDS: 0.9 % Sodium Chloride Flush 3 ML SYRINGE IVFLUSH ×3 (08:47→22:35)
--- NOTE | 2024-12-23 10:08 | HO.PM.IMPN ---
Subjective Subjective Date of Service: 12/23/24 Interval History: seen and examined with medical interpreter services reports feeling weak and dizzy denies chest pain or sob denies abd pain, denies symptoms Review of Systems Negative except HPI/interval history. Physical Exam Vital Signs: Vital Signs: Last Vital Signs Temp 100.6 F H 12/23/24 04:50 Pulse 88 12/23/24 08:27 Resp 22 H 12/23/24 08:27 BP 121/58 L 12/23/24 08:46 Pulse Ox 97 12/23/24 08:27 O2 Del Method Room Air 12/23/24 08:27 O2 Flow Rate 97 12/23/24 01:00 BMI result Body Mass Index 38.1 Const: Other: General - no acute distress, appears comfortable Cardiovascular - regular rate and rhythm, S1-S2 Lungs - normal respiratory effort, clear to auscultation bilaterally, no wheezing Abdomen - soft, nontender, no rebound or guarding Extremities - +pedal edema Neuro - awake and alert, no focal deficits Objective Data Active Medications Acetaminophen (Acetaminophen 325 Mg Tablet) 650 mg PO Q6H PRN PRN Reason: Pain, Mild 1-3,fever,headache Calcium Carbonate (Calcium Carbonate 750 Mg Tab.Chew) 750 mg PO Q4H PRN PRN Reason: Heartburn Ceftriaxone Sodium (Ceftriaxone Sodium 1 Gm Vial) 1 gm IVPUSH Q24H GONZALEZ Dextrose (Dextrose 50 % 25 Gm/50 Ml Syringe) 25 gm IVPUSH Q15M PRN; Protocol PRN Reason: per Hypoglycemia Standing Ord. Enoxaparin Sodium (Enoxaparin Sodium 100 Mg/Ml Syringe) 90 mg 1 mg/kg (90 mg) SUBCUT Q12H GONZALEZ Last Admin: 12/23/24 01:47 Dose: 90 mg Documented By: KALPANA Furosemide (Furosemide 40 Mg/4 Ml Vial) 40 mg IVPUSH DAILY GONZALEZ; Protocol Last Admin: 12/23/24 08:46 Dose: 40 mg Documented By: RAD Glucose (Glucose Gel 15 Gm Gel..Gram.) 15 gm PO Q15M PRN; Protocol PRN Reason: per Hypoglycemia Standing Ord. Azithromycin 500 mg/ Sodium (Chloride) 250 mls @ 125 mls/hr IV Q24H GONZALEZ Insulin Human Lispro (Insulin Lispro 100 Unit/Ml 3 Ml Vial) 0 unit SUBCUT QIDACHS GONZALEZ; Protocol Last Admin: 12/23/24 08:46 Dose: 6 unit Documented By: RAD Magnesium Hydroxide (Milk Of Magnesia 30 Ml Oral.Susp) 30 ml PO DAILY PRN PRN Reason: Constipation Melatonin (Melatonin 3 Mg Tablet) 6 mg PO BEDTIME PRN PRN Reason: Insomnia Ondansetron HCl (Ondansetron Hcl 4 Mg/2 Ml Vial) 4 mg IVPUSH Q8H PRN PRN Reason: Nausea and Vomiting Sodium Chloride (0.9 % Sodium Chloride Flush 3 Ml Syringe) 3 ml IVFLUSH [facility] Last Admin: 12/23/24 08:47 Dose: 3 ml Documented By: RAD Labs 12/23/24 03:59 12/23/24 03:59 Labs: Laboratory Results - last 24 hr 12/22/24 12/22/24 12/22/24 21:34 21:35 22:22 MCV 85.5 MCH 28.4 MCHC 33.2 RDW 13.2 Plt Count 304 MPV 10.7 Immature Gran % (Auto) Cancelled Neut % (Auto) Cancelled Lymph % (Auto) Cancelled [place] % (Auto) Cancelled Eos % (Auto) Cancelled Baso % (Auto) Cancelled Lymph # (Auto) Cancelled [place] # (Auto) Cancelled Eos # (Auto) Cancelled Baso # (Auto) Cancelled Abs Immat Gran (auto) Cancelled Absolute Neuts (auto) Cancelled Absolute Nucleated RBC 0.000 Nucleated RBC % (auto) 0.0 Neutrophils % (Manual) 92 H Band Neutrophils % 0 L Monocytes % (Manual) 8 Abs Neuts (Manual) 17.4 H Monocytes # (Manual) 1.5 H Platelet Estimate NORMAL Plt Morphology Comment NORMAL RBC Morphology NORMAL PT 13.1 H INR 1.1 APTT 27.4 O2 Saturation ABG pH at Pt Temp ABG pCO2 at Pt Temp ABG pO2 at Pt Temp ABG HCO3 ABG Base Excess (Actual) Anion Gap 20 Estim Creat Clear Calc 39.4 Estimated GFR 42 POC Glucose Random Glucose 400 H* Lactic Acid Lactic Acid F/U @ 2Hr Lactic Acid F/U @ 4Hr Calcium 9.8 Magnesium 2.0 Total Bilirubin 1.2 H Direct Bilirubin 0.4 AST 60 H ALT 13 Alkaline Phosphatase 102 B-Natriuretic Peptide 2654 H Total Protein 8.0 Albumin 3.9 Lipase 9 Urine Color Urine Appearance Urine pH Ur Specific [place] Urine Protein Urine Glucose (UA) Urine Ketones Urine Blood Urine Nitrite Ur Leukocyte Esterase Urine RBC Urine WBC Ur Squamous Epith Cells Urine Bacteria Hyaline Casts Granular Casts Stool Occult Blood NEGATIVE Urine Opiates Screen Ur Buprenorphine Scrn Ur Oxycodone Screen Urine Methadone Screen Urine Fentanyl Screen Ur Barbiturates Screen Ur Phencyclidine Scrn Ur Amphetamines Screen U Benzodiazepines Scrn Urine Cocaine Screen U Marijuana (THC) Screen Ethyl Alcohol < 10 Influenza Type A (PCR) NEGATIVE Influenza Type B (PCR) NEGATIVE RSV RNA Qual (PCR) NEGATIVE SARS-CoV-2 RNA (RT-PCR) NEGATIVE 12/22/24 12/22/24 12/23/24 22:38 23:29 00:58 MCV MCH MCHC RDW Plt Count MPV Immature Gran % (Auto) Neut % (Auto) Lymph % (Auto) [place] % (Auto) Eos % (Auto) Baso % (Auto) Lymph # (Auto) [place] # (Auto) Eos # (Auto) Baso # (Auto) Abs Immat Gran (auto) Absolute Neuts (auto) Absolute Nucleated RBC Nucleated RBC % (auto) Neutrophils % (Manual) Band Neutrophils % Monocytes % (Manual) Abs Neuts (Manual) Monocytes # (Manual) Platelet Estimate Plt Morphology Comment RBC Morphology PT INR APTT O2 Saturation ABG pH at Pt Temp ABG pCO2 at Pt Temp ABG pO2 at Pt Temp ABG HCO3 ABG Base Excess (Actual) Anion Gap Estim Creat Clear Calc Estimated GFR POC Glucose Random Glucose Lactic Acid 2.9 H* Lactic Acid F/U @ 2Hr 7.4 H* Lactic Acid F/U @ 4Hr Calcium Magnesium Total Bilirubin Direct Bilirubin AST ALT Alkaline Phosphatase B-Natriuretic Peptide Total Protein Albumin Lipase Urine Color Yellow Urine Appearance Clear Urine pH 5.5 Ur Specific [place] >= 1.030 H Urine Protein >=1000 (4+) H Urine Glucose (UA) >=1000 H Urine Ketones 15 Urine Blood Large (3+) H Urine Nitrite Negative Ur Leukocyte Esterase Negative Urine RBC >20 H Urine WBC 0-5 Ur Squamous Epith Cells 0-2 Urine Bacteria None Seen Hyaline Casts 6-10 Granular Casts Present Stool Occult Blood Urine Opiates Screen Not Detected Ur Buprenorphine Scrn Not Detected Ur Oxycodone Screen Not Detected Urine Methadone Screen Not Detected Urine Fentanyl Screen Not Detected Ur Barbiturates Screen Not Detected Ur Phencyclidine Scrn Not Detected Ur Amphetamines Screen Not Detected U Benzodiazepines Scrn Not Detected Urine Cocaine Screen Not Detected U Marijuana (THC) Screen Not Detected Ethyl Alcohol Influenza Type A (PCR) Influenza Type B (PCR) RSV RNA Qual (PCR) SARS-CoV-2 RNA (RT-PCR) 12/23/24 12/23/24 12/23/24 01:57 03:12 03:59 MCV 87.3 MCH 27.5 MCHC 31.6 RDW 13.2 Plt Count 268 MPV 11.5 Immature Gran % (Auto) 2.0 H Neut % (Auto) 87.3 H Lymph % (Auto) 3.6 L [place] % (Auto) 5.6 Eos % (Auto) 1.1 Baso % (Auto) 0.4 Lymph # (Auto) 0.6 L [place] # (Auto) 0.9 Eos # (Auto) 0.2 Baso # (Auto) 0.1 Abs Immat Gran (auto) 0.32 H Absolute Neuts (auto) 14.1 H Absolute Nucleated RBC 0.000 Nucleated RBC % (auto) 0.0 Neutrophils % (Manual) Band Neutrophils % Monocytes % (Manual) Abs Neuts (Manual) Monocytes # (Manual) Platelet Estimate Plt Morphology Comment RBC Morphology PT INR APTT O2 Saturation 98.0 ABG pH at Pt Temp 7.40 ABG pCO2 at Pt Temp 32 ABG pO2 at Pt Temp 92 ABG HCO3 20 L ABG Base Excess (Actual) -2.9 Anion Gap 19 Estim Creat Clear Calc 35.5 Estimated GFR 38 POC Glucose 348 H Random Glucose 340 H Lactic Acid Lactic Acid F/U @ 2Hr Lactic Acid F/U @ 4Hr 2.6 H* Calcium 9.5 Magnesium Total Bilirubin Direct Bilirubin AST ALT Alkaline Phosphatase B-Natriuretic Peptide Total Protein Albumin Lipase Urine Color Urine Appearance Urine pH Ur Specific [place] Urine Protein Urine Glucose (UA) Urine Ketones Urine Blood Urine Nitrite Ur Leukocyte Esterase Urine RBC Urine WBC Ur Squamous Epith Cells Urine Bacteria Hyaline Casts Granular Casts Stool Occult Blood Urine Opiates Screen Ur Buprenorphine Scrn Ur Oxycodone Screen Urine Methadone Screen Urine Fentanyl Screen Ur Barbiturates Screen Ur Phencyclidine Scrn Ur Amphetamines Screen U Benzodiazepines Scrn Urine Cocaine Screen U Marijuana (THC) Screen Ethyl Alcohol Influenza Type A (PCR) Influenza Type B (PCR) RSV RNA Qual (PCR) SARS-CoV-2 RNA (RT-PCR) 12/23/24 07:32 MCV MCH MCHC RDW Plt Count MPV Immature Gran % (Auto) Neut % (Auto) Lymph % (Auto) [place] % (Auto) Eos % (Auto) Baso % (Auto) Lymph # (Auto) [place] # (Auto) Eos # (Auto) Baso # (Auto) Abs Immat Gran (auto) Absolute Neuts (auto) Absolute Nucleated RBC Nucleated RBC % (auto) Neutrophils % (Manual) Band Neutrophils % Monocytes % (Manual) Abs Neuts (Manual) Monocytes # (Manual) Platelet Estimate Plt Morphology Comment RBC Morphology PT INR APTT O2 Saturation ABG pH at Pt Temp ABG pCO2 at Pt Temp ABG pO2 at Pt Temp ABG HCO3 ABG Base Excess (Actual) Anion Gap Estim Creat Clear Calc Estimated GFR POC Glucose 270 H Random Glucose Lactic Acid Lactic Acid F/U @ 2Hr Lactic Acid F/U @ 4Hr Calcium Magnesium Total Bilirubin Direct Bilirubin AST ALT Alkaline Phosphatase B-Natriuretic Peptide Total Protein Albumin Lipase Urine Color Urine Appearance Urine pH Ur Specific [place] Urine Protein Urine Glucose (UA) Urine Ketones Urine Blood Urine Nitrite Ur Leukocyte Esterase Urine RBC Urine WBC Ur Squamous Epith Cells Urine Bacteria Hyaline Casts Granular Casts Stool Occult Blood Urine Opiates Screen Ur Buprenorphine Scrn Ur Oxycodone Screen Urine Methadone Screen Urine Fentanyl Screen Ur Barbiturates Screen Ur Phencyclidine Scrn Ur Amphetamines Screen U Benzodiazepines Scrn Urine Cocaine Screen U Marijuana (THC) Screen Ethyl Alcohol Influenza Type A (PCR) Influenza Type B (PCR) RSV RNA Qual (PCR) SARS-CoV-2 RNA (RT-PCR) Assessment and Plan (1) Pneumonia: Status: Acute (2) Non-ST elevation IA (NSTEMI): Status: Acute Plan Patient is a 79-year-old female with a past medical history of AFib on Eliquis, CHF with preserved ejection fraction, CAD status post stenting, moderate to severe MR, COPD not on home O2, hypertension, CKD, mood disorder, overactive bladder, [id number] diabetes mellitus who presented to the emergency room with complaints of shortness of breath. She was found to be in acute heart failure as well as NSTEMI with possible pneumonia and sepsis. She was admitted for further workup and treatment. 1. Acute respiratory failure with hypoxia, multifactorial Required CPAP overnight, currently on 2 L See full details below 2. Sepsis due to right-sided pneumonia Continue IV ceftriaxone azithromycin Follow up cultures 3. Acute on chronic HFpEF IV lasix i/o cardiology consulted 4. NSTEMI pt denies cp but trop >6000; repeat pending lovenox 1mg/kg bid cardiology consult 2d echo 5. A. fib RVR required IV rate control drugs now improved, continue PO meds once med rec completed 6. Mood continue baseline meds 7. COPD stable, continue baseline inhalers Full Code DVT pptx - lovenox Quality Stroke Does the patient have a stroke diagnosis?: No VTE Prior VTE?: No VTE Risk Level:: Medical - moderate - high VTE Device Contraindication: Treatment Not Indicated VTE Drug Contraindication: N/A - Med Ordered
[2024-12-23 10:34] LABS: Glucose, Whole Blood 358 mg/dL (60-115)
[2024-12-23] MEDS: Atorvastatin Calcium 80 MG TABLET PO (10:36)
[2024-12-23 10:41] LABS: Troponin-I High Sensitivity 9012.1 ng/L (<3.5-17.0)
[2024-12-23 12:45] LABS: Glucose, Whole Blood 212 mg/dL (60-115)
--- NOTE | 2024-12-23 13:53 | P.CONCA_ITS ---
History of Present Illness History of Present Illness Date of Service: 12/23/24 Requesting physician: Modesto Higginbotham Consult reason: congestive heart failure and myocardial infarction Chief complaint: Dyspnea Narrative: I was consulted to see Roseanna in cardiology consultation today acute myocardial infarction as well as congestive heart failure. History was obtained with help of family around the bedside. Patient does not speak Serbian in appears mildly confused. Patient has a significant past medical history including cardiomyopathy, congestive heart failure, CAD status post stenting of the LAD few years ago, chronic atrial fibrillation significant biatrial enlargement, alcohol abuse, diabetes, hypertension, COPD, chronic kidney disease, noncompliance with medications at home present hospital with altered mental status. Patient was daughter who lives in [place] says she called her mom and she was somewhat confused and was saying that patient was having difficult time breathing. The patient was daughter then called he ambulance. They brought her to the emergency room. In the emergency room she was really having significant respiratory distress, subsequent workup was suggestive of NSTEMI with rising troponins up to 9000, with elevated BNP consistent with congestive heart failure, lactic acidosis, atrial fibrillation rapid ventricular response in the setting of pneumonia. As per the daughter she has been having cough productive of phlegm at home. She was also been getting increasing short of breath although the history is very difficult to obtain. Patient has been refusing her medications at home. She was also not been able to taken care of by other healthcare providers due to stranger anxiety at home. Not sure as to what medicines she has been taking at home if at all any. As per the great granddaughter/adopted daughter she has been refusing her medications at home. Review of Systems 2 Review of Systems: Yes Unobtainable due to mental status Neurologic: Reports confusion Psychiatric: Psychiatric: Reports confusion [facility] Past Medical History Medical History Persistent atrial fibrillation Elevated liver enzymes NSTEMI (non-ST elevated myocardial infarction) Anxiety Asymmetrical thyroid CHF (congestive heart failure) COVID-19 Renal cyst, acquired, left Obstruction, uropathy Thrombosed external hemorrhoid COPD (chronic obstructive pulmonary disease) Atrial fibrillation Gout Asthma Alcohol abuse Nephrolithiasis Knee arthropathy Osteoarthritis Diabetes Arthritis Hypertension Surgical History Surgical History Hx of bilateral cataract extraction Hx of hysterectomy Hx of lithotripsy History of total right knee replacement History of esophagogastroduodenoscopy (EGD) Hx of cystoscopy Hx of colonoscopy History of total knee arthroplasty Social History Social History Household Members: None Household Members Other:: DAUGHTER Housing: Apartment Housing Other:: low income housing Do you presently have visiting nurse or other home services: Yes (CARDIOLOGY CLINICAL CONSULTANT) Unable to assess alcohol history related to: Unknown Alcohol intake: unknown Patient Tobacco Use Status: Never used Tobacco Smoked in Last 30 Days: No e-Cigarette/Vaping Use: Never Used Second Hand Smoke Exposure: No Use of substances other than those prescribed or required for medical reasons: No Advance Directives: Yes Advance Directives on File: Yes Advance Directives Date on File: 09/07/22 service: No Current occupational status: disabled Meds Allergies Allergy/AdvReac Type Severity Reaction Status Date / Time montelukast [Singulair] Allergy Unknown itching/marysol Verified 12/22/24 21:40 h Active Medications: Current Medications Acetaminophen (Acetaminophen 325 Mg Tablet) 650 mg PO Q6H PRN PRN Reason: Pain, Mild 1-3,fever,headache Aspirin (Aspirin 81 Mg Tab.Chew) 81 mg PO DAILY [facility] Atorvastatin Calcium (Atorvastatin Calcium 80 Mg Tablet) 80 mg PO DAILY [facility] Last Admin: 12/23/24 10:36 Dose: 80 mg Calcium Carbonate (Calcium Carbonate 750 Mg Tab.Chew) 750 mg PO Q4H PRN PRN Reason: Heartburn Ceftriaxone Sodium (Ceftriaxone Sodium 1 Gm Vial) 1 gm IVPUSH Q24H [facility] Dextrose (Dextrose 50 % 25 Gm/50 Ml Syringe) 25 gm IVPUSH Q15M PRN; Protocol PRN Reason: per Hypoglycemia Standing Ord. Enoxaparin Sodium (Enoxaparin Sodium 100 Mg/Ml Syringe) 90 mg 1 mg/kg (90 mg) SUBCUT Q12H [facility] Last Admin: 12/23/24 13:22 Dose: 90 mg Furosemide (Furosemide 40 Mg/4 Ml Vial) 40 mg IVPUSH DAILY [facility]; Protocol Last Admin: 12/23/24 08:46 Dose: 40 mg Glucose (Glucose Gel 15 Gm Gel..Gram.) 15 gm PO Q15M PRN; Protocol PRN Reason: per Hypoglycemia Standing Ord. Azithromycin 500 mg/ Sodium (Chloride) 250 mls @ 125 mls/hr IV Q24H [facility] Insulin Human Lispro (Insulin Lispro 100 Unit/Ml 3 Ml Vial) 0 unit SUBCUT QIDACHS [facility]; Protocol Last Admin: 12/23/24 13:21 Dose: 4 unit Magnesium Hydroxide (Milk Of Magnesia 30 Ml Oral.Susp) 30 ml PO DAILY PRN PRN Reason: Constipation Melatonin (Melatonin 3 Mg Tablet) 6 mg PO BEDTIME PRN PRN Reason: Insomnia Ondansetron HCl (Ondansetron Hcl 4 Mg/2 Ml Vial) 4 mg IVPUSH Q8H PRN PRN Reason: Nausea and Vomiting Sodium Chloride (0.9 % Sodium Chloride Flush 3 Ml Syringe) [facility] Admin: 12/23/24 08:47 Dose: 3 ml Home Medications ?Medication ?Instructions ?Recorded ?Confirmed ?Last Taken ?Type albuterol sulfate 2.5 mg/3 mL 1 amp inhalation Q6H PRN Wheezing 09/06/22 10/26/24 12/19/22 History (0.083 %) solution for nebulization blood sugar diagnostic ([facility] 09/06/22 10/26/24 Unknown History Verio test strips) [facility] 10/26/24 Unknown History Verio Flex Meter) fluticasone 250 mcg-salmeterol 50 1 puff inhalation BID PRN 09/06/22 10/26/24 12/19/22 History mcg/dose blistr powdr for shortness or breath or wheezing inhalation (Advair Diskus) [facility] 09/06/22 10/26/24 Unknown History Plus Lancet) albuterol sulfate 90 mcg/actuation 2 puff inhalation Q4-6H PRN 10/23/22 10/26/24 Unknown History aerosol inhaler (Ventolin HFA) Wheezing atorvastatin 80 mg tablet 80 mg PO DAILY 10/23/22 10/26/24 12/19/22 History metformin 850 mg tablet 850 mg PO DAILY 10/23/22 10/26/24 12/18/22 History clopidogrel 75 mg tablet 75 mg PO DAILY 04/27/23 10/26/24 11/10/23 History metoprolol succinate 50 mg 50 mg PO DAILY 04/27/23 10/26/24 Unknown History tablet,extended release 24 hr (Toprol XL) acetaminophen 325 mg tablet 325 mg PO Q6H PRN mild pain 05/25/23 10/26/24 Unknown History duloxetine 30 mg capsule,delayed 30 mg PO DAILY 07/28/23 10/26/24 Unknown History release cetirizine 10 mg tablet 10 mg PO DAILY PRN allergies 04/06/24 10/26/24 Unknown History pyridoxine (vitamin B6) 100 mg 100 mg PO DAILY 04/06/24 10/26/24 Unknown History tablet simethicone 80 mg chewable tablet 80 mg PO QID PRN Indigestion 04/06/24 10/26/24 Unknown History calcium 315 mg (as 1 tab PO BID 04/21/24 10/26/24 Unknown History citrate)-vitamin D3 6.25 mcg (250 unit) tablet hydroxyzine HCl 10 mg tablet 10 mg PO Q12H PRN itch 04/21/24 10/26/24 Unknown History trazodone 100 mg tablet 100 mg PO BEDTIME 04/21/24 10/26/24 Unknown History triamcinolone acetonide 0.1 % 1 topical BID 04/21/24 10/26/24 Unknown History topical ointment blood pressure test kit-large #1 ea 10/19/24 10/26/24 Unknown History ferrous gluconate 324 mg (38 mg 324 mg PO BID 10/19/24 10/26/24 Unknown History iron) tablet calcium polycarbophil 625 mg 625 mg PO DAILY 12/23/24 Unknown History tablet (Fiber-Lax) docusate sodium 100 mg capsule 100 mg PO DAILY 12/23/24 Unknown History (Stool Softener) mirabegron 50 mg tablet,extended 50 mg PO DAILY 12/23/24 Unknown History release 24 hr (Myrbetriq) Physical Exam 2 Vital Signs: Vital Signs: Last Vital Signs Temp 99.5 F 12/23/24 10:00 Pulse 92 12/23/24 10:00 Resp 22 H 12/23/24 10:00 BP 99/52 L 12/23/24 10:00 Pulse Ox 98 12/23/24 10:00 O2 Del Method Room Air 12/23/24 10:00 O2 Flow Rate 97 12/23/24 01:00 BMI result Body Mass Index 38.1 Const: General: cooperative, alert, awake, in distress mild and respiratory and confusion Nutritional Appearance: obese Orientation/consciousness: c onfusion HEENT: Head: Yes normocephalic and Yes atraumatic Neck: Neck: Yes trachea midline, Yes supple and Yes no JVD Resp: Effort & Inspection: decreased respiratory effort Auscultation: b ronchovesicular breath sounds on the right (Posterior lung) Cardio: Rhythm: abnormal rhythm irregularly irregular Heart sounds: S1 normal heart sound present, S2 normal heart sound present, no click, no gallops and no murmurs GI: Auscultation: normal bowel sounds Skin: General skin exam: no rashes or lesions noted Neuro: General: moves all extremities and confusion Extrem: General: Yes no clubbing, cyanosis or edema Objective Labs and Meds 12/23/24 03:59 12/23/24 03:59 Lab results: Laboratory Results - last 24 hr 12/22/24 12/22/24 12/22/24 21:34 21:35 22:22 WBC 18.9 H RBC 4.40 Hgb 12.5 Hct 37.6 MCV 85.5 MCH 28.4 MCHC 33.2 RDW 13.2 Plt Count 304 MPV 10.7 Immature Gran % (Auto) Cancelled Neut % (Auto) Cancelled Lymph % (Auto) Cancelled [place] % (Auto) Cancelled Eos % (Auto) Cancelled Baso % (Auto) Cancelled Lymph # (Auto) Cancelled [place] # (Auto) Cancelled Eos # (Auto) Cancelled Baso # (Auto) Cancelled Abs Immat Gran (auto) Cancelled Absolute Neuts (auto) Cancelled Absolute Nucleated RBC 0.000 Nucleated RBC % (auto) 0.0 Neutrophils % (Manual) 92 H Band Neutrophils % 0 L Monocytes % (Manual) 8 Abs Neuts (Manual) 17.4 H Monocytes # (Manual) 1.5 H Platelet Estimate NORMAL Plt Morphology Comment NORMAL RBC Morphology NORMAL PT 13.1 H INR 1.1 APTT 27.4 O2 Saturation ABG pH at Pt Temp ABG pCO2 at Pt Temp ABG pO2 at Pt Temp ABG HCO3 ABG Base Excess (Actual) Sodium 139 Potassium 4.4 Chloride 104 Carbon Dioxide 19 L Anion Gap 20 BUN 23 H Creatinine 1.22 Estim Creat Clear Calc 39.4 Estimated GFR 42 POC Glucose Random Glucose 400 H* Lactic Acid Lactic Acid F/U @ 2Hr Lactic Acid F/U @ 4Hr Calcium 9.8 Magnesium 2.0 Total Bilirubin 1.2 H Direct Bilirubin 0.4 AST 60 H ALT 13 Alkaline Phosphatase 102 Troponin I High Sens 6302.9 H* D B-Natriuretic Peptide 2654 H Total Protein 8.0 Albumin 3.9 Lipase 9 Urine Color Urine Appearance Urine pH Ur Specific [place] Urine Protein Urine Glucose (UA) Urine Ketones Urine Blood Urine Nitrite Ur Leukocyte Esterase Urine RBC Urine WBC Ur Squamous Epith Cells Urine Bacteria Hyaline Casts Granular Casts Stool Occult Blood NEGATIVE Urine Opiates Screen Ur Buprenorphine Scrn Ur Oxycodone Screen Urine Methadone Screen Urine Fentanyl Screen Ur Barbiturates Screen Ur Phencyclidine Scrn Ur Amphetamines Screen U Benzodiazepines Scrn Urine Cocaine Screen U Marijuana (THC) Screen Ethyl Alcohol < 10 Influenza Type A (PCR) NEGATIVE Influenza Type B (PCR) NEGATIVE RSV RNA Qual (PCR) NEGATIVE SARS-CoV-2 RNA (RT-PCR) NEGATIVE 12/22/24 12/22/24 12/23/24 22:38 23:29 00:58 WBC RBC Hgb Hct MCV MCH MCHC RDW Plt Count MPV Immature Gran % (Auto) Neut % (Auto) Lymph % (Auto) [place] % (Auto) Eos % (Auto) Baso % (Auto) Lymph # (Auto) [place] # (Auto) Eos # (Auto) Baso # (Auto) Abs Immat Gran (auto) Absolute Neuts (auto) Absolute Nucleated RBC Nucleated RBC % (auto) Neutrophils % (Manual) Band Neutrophils % Monocytes % (Manual) Abs Neuts (Manual) Monocytes # (Manual) Platelet Estimate Plt Morphology Comment RBC Morphology PT INR APTT O2 Saturation ABG pH at Pt Temp ABG pCO2 at Pt Temp ABG pO2 at Pt Temp ABG HCO3 ABG Base Excess (Actual) Sodium Potassium Chloride Carbon Dioxide Anion Gap BUN Creatinine Estim Creat Clear Calc Estimated GFR POC Glucose Random Glucose Lactic Acid 2.9 H* Lactic Acid F/U @ 2Hr 7.4 H* Lactic Acid F/U @ 4Hr Calcium Magnesium Total Bilirubin Direct Bilirubin AST ALT Alkaline Phosphatase Troponin I High Sens B-Natriuretic Peptide Total Protein Albumin Lipase Urine Color Yellow Urine Appearance Clear Urine pH 5.5 Ur Specific [place] >= 1.030 H Urine Protein >=1000 (4+) H Urine Glucose (UA) >=1000 H Urine Ketones 15 Urine Blood Large (3+) H Urine Nitrite Negative Ur Leukocyte Esterase Negative Urine RBC >20 H Urine WBC 0-5 Ur Squamous Epith Cells 0-2 Urine Bacteria None Seen Hyaline Casts 6-10 Granular Casts Present Stool Occult Blood Urine Opiates Screen Not Detected Ur Buprenorphine Scrn Not Detected Ur Oxycodone Screen Not Detected Urine Methadone Screen Not Detected Urine Fentanyl Screen Not Detected Ur Barbiturates Screen Not Detected Ur Phencyclidine Scrn Not Detected Ur Amphetamines Screen Not Detected U Benzodiazepines Scrn Not Detected Urine Cocaine Screen Not Detected U Marijuana (THC) Screen Not Detected Ethyl Alcohol Influenza Type A (PCR) Influenza Type B (PCR) RSV RNA Qual (PCR) SARS-CoV-2 RNA (RT-PCR) 12/23/24 12/23/24 12/23/24 01:57 03:12 03:59 WBC 16.2 H RBC 4.32 Hgb 11.9 L Hct 37.7 MCV 87.3 MCH 27.5 MCHC 31.6 RDW 13.2 Plt Count 268 MPV 11.5 Immature Gran % (Auto) 2.0 H Neut % (Auto) 87.3 H Lymph % (Auto) 3.6 L [place] % (Auto) 5.6 Eos % (Auto) 1.1 Baso % (Auto) 0.4 Lymph # (Auto) 0.6 L [place] # (Auto) 0.9 Eos # (Auto) 0.2 Baso # (Auto) 0.1 Abs Immat Gran (auto) 0.32 H Absolute Neuts (auto) 14.1 H Absolute Nucleated RBC 0.000 Nucleated RBC % (auto) 0.0 Neutrophils % (Manual) Band Neutrophils % Monocytes % (Manual) Abs Neuts (Manual) Monocytes # (Manual) Platelet Estimate Plt Morphology Comment RBC Morphology PT INR APTT O2 Saturation 98.0 ABG pH at Pt Temp 7.40 ABG pCO2 at Pt Temp 32 ABG pO2 at Pt Temp 92 ABG HCO3 20 L ABG Base Excess (Actual) -2.9 Sodium 141 Potassium 3.6 Chloride 106 Carbon Dioxide 20 L Anion Gap 19 BUN 27 H Creatinine 1.35 Estim Creat Clear Calc 35.5 Estimated GFR 38 POC Glucose 348 H Random Glucose 340 H Lactic Acid Lactic Acid F/U @ 2Hr Lactic Acid F/U @ 4Hr 2.6 H* Calcium 9.5 Magnesium Total Bilirubin Direct Bilirubin AST ALT Alkaline Phosphatase Troponin I High Sens B-Natriuretic Peptide Total Protein Albumin Lipase Urine Color Urine Appearance Urine pH Ur Specific [place] Urine Protein Urine Glucose (UA) Urine Ketones Urine Blood Urine Nitrite Ur Leukocyte Esterase Urine RBC Urine WBC Ur Squamous Epith Cells Urine Bacteria Hyaline Casts Granular Casts Stool Occult Blood Urine Opiates Screen Ur Buprenorphine Scrn Ur Oxycodone Screen Urine Methadone Screen Urine Fentanyl Screen Ur Barbiturates Screen Ur Phencyclidine Scrn Ur Amphetamines Screen U Benzodiazepines Scrn Urine Cocaine Screen U Marijuana (THC) Screen Ethyl Alcohol Influenza Type A (PCR) Influenza Type B (PCR) RSV RNA Qual (PCR) SARS-CoV-2 RNA (RT-PCR) 12/23/24 12/23/24 12/23/24 07:32 09:43 10:30 WBC RBC Hgb Hct MCV MCH MCHC RDW Plt Count MPV Immature Gran % (Auto) Neut % (Auto) Lymph % (Auto) [place] % (Auto) Eos % (Auto) Baso % (Auto) Lymph # (Auto) [place] # (Auto) Eos # (Auto) Baso # (Auto) Abs Immat Gran (auto) Absolute Neuts (auto) Absolute Nucleated RBC Nucleated RBC % (auto) Neutrophils % (Manual) Band Neutrophils % Monocytes % (Manual) Abs Neuts (Manual) Monocytes # (Manual) Platelet Estimate Plt Morphology Comment RBC Morphology PT INR APTT O2 Saturation ABG pH at Pt Temp ABG pCO2 at Pt Temp ABG pO2 at Pt Temp ABG HCO3 ABG Base Excess (Actual) Sodium Potassium Chloride Carbon Dioxide Anion Gap BUN Creatinine Estim Creat Clear Calc Estimated GFR POC Glucose 270 H 358 H* Random Glucose Lactic Acid Lactic Acid F/U @ 2Hr Lactic Acid F/U @ 4Hr Calcium Magnesium Total Bilirubin Direct Bilirubin AST ALT Alkaline Phosphatase Troponin I High Sens 9012.1 H* B-Natriuretic Peptide Total Protein Albumin Lipase Urine Color Urine Appearance Urine pH Ur Specific [place] Urine Protein Urine Glucose (UA) Urine Ketones Urine Blood Urine Nitrite Ur Leukocyte Esterase Urine RBC Urine WBC Ur Squamous Epith Cells Urine Bacteria Hyaline Casts Granular Casts Stool Occult Blood Urine Opiates Screen Ur Buprenorphine Scrn Ur Oxycodone Screen Urine Methadone Screen Urine Fentanyl Screen Ur Barbiturates Screen Ur Phencyclidine Scrn Ur Amphetamines Screen U Benzodiazepines Scrn Urine Cocaine Screen U Marijuana (THC) Screen Ethyl Alcohol Influenza Type A (PCR) Influenza Type B (PCR) RSV RNA Qual (PCR) SARS-CoV-2 RNA (RT-PCR) 12/23/24 12:40 WBC RBC Hgb Hct MCV MCH MCHC RDW Plt Count MPV Immature Gran % (Auto) Neut % (Auto) Lymph % (Auto) [place] % (Auto) Eos % (Auto) Baso % (Auto) Lymph # (Auto) [place] # (Auto) Eos # (Auto) Baso # (Auto) Abs Immat Gran (auto) Absolute Neuts (auto) Absolute Nucleated RBC Nucleated RBC % (auto) Neutrophils % (Manual) Band Neutrophils % Monocytes % (Manual) Abs Neuts (Manual) Monocytes # (Manual) Platelet Estimate Plt Morphology Comment RBC Morphology PT INR APTT O2 Saturation ABG pH at Pt Temp ABG pCO2 at Pt Temp ABG pO2 at Pt Temp ABG HCO3 ABG Base Excess (Actual) Sodium Potassium Chloride Carbon Dioxide Anion Gap BUN Creatinine Estim Creat Clear Calc Estimated GFR POC Glucose 212 H Random Glucose Lactic Acid Lactic Acid F/U @ 2Hr Lactic Acid F/U @ 4Hr Calcium Magnesium Total Bilirubin Direct Bilirubin AST ALT Alkaline Phosphatase Troponin I High Sens B-Natriuretic Peptide Total Protein Albumin Lipase Urine Color Urine Appearance Urine pH Ur Specific [place] Urine Protein Urine Glucose (UA) Urine Ketones Urine Blood Urine Nitrite Ur Leukocyte Esterase Urine RBC Urine WBC Ur Squamous Epith Cells Urine Bacteria Hyaline Casts Granular Casts Stool Occult Blood Urine Opiates Screen Ur Buprenorphine Scrn Ur Oxycodone Screen Urine Methadone Screen Urine Fentanyl Screen Ur Barbiturates Screen Ur Phencyclidine Scrn Ur Amphetamines Screen U Benzodiazepines Scrn Urine Cocaine Screen U Marijuana (THC) Screen Ethyl Alcohol Influenza Type A (PCR) Influenza Type B (PCR) RSV RNA Qual (PCR) SARS-CoV-2 RNA (RT-PCR) Assessment and Plan (1) Acute myocardial infarction: Status: Acute Acute myocardial infarction this elderly woman with prior history of CAD as well as cardiomyopathy is possible this could be a primary event although appears to be more like a secondary event due to myocardial distress related to severe hypoxemia, acidosis in the setting of severe pneumonia. Also when she presented she was in rapid atrial fibrillation. This will also increase the chance of having demand ischemia. However given that she is not taking any medications at home including Eliquis I would continue with IV heparin for at least 48-72 hours. Blood pressure is soft at this point time. Will start low-dose metoprolol 12.5 mg q.6 hours for anti ischemic therapy as well as for managing her heart rate. Hold off losartan for now given her low blood pressure. Management will be conservative for now given her acute medical issues including acute pneumonia as well as respiratory failure and acidosis. Echocardiogram should be requested to evaluate for LV ejection fraction. (2) Decompensated heart failure: Status: Acute Decompensated congestive heart failure related to acute myocardial ischemia as well as acute pneumonia in the setting of known prior cardiomyopathy. Clinically appears to be improved. Continue gentle diuresis with Lasix 40 mg IV daily. Strict intake and output chart needs to be pursued. Continue supportive care. Continue treat ischemia as above. Continue treat pneumonia aggressively. Overall prognosis is guarded. (3) Atrial fibrillation with RVR: Status: Acute Atrial fibrillation rapid ventricular response related to acute medical illness. Heart rate is improved at current time. Continue rate control with metoprolol low-dose given softer blood pressure. If necessary may need to use digoxin for rate control. IV heparin for now to be transition to p.o. Eliquis. Will continue to follow with you. Procedures Date of Service Date of Service: 12/23/24
--- NOTE | 2024-12-23 14:47 | PHA.MEDREC ---
Addendum entered by Gloria De La Cruz [facility] 12/23/24 16:28: recieved list form [facility] to confirm medications. Left a couple OTCs unconfirmed. all others were taken off as patient has not filled in 6+ months/prn meds. will update if anyone from list of patient contacts call back. Original Note: Pharmacy Consult ? Medication Reconciliation Pharmacy has completed the medication reconciliation. Spoke to patient through art model service to confirm med list. Patient is a poor historian and she instructed me to call her daughter. Called and spoke to patient daughter Mara over the phone. Daughter states she doesn't know all of patient medication. Patient has INVERTED BLOCK OPERATOR service through [facility] [phone]. Called [facility] multiple times left message on voice mail for trimming caser Jeni Medina @10:40am, left message for Cari Patel, and another voice mail for Olivia COOLEY. Utilized claims to confirm med list. Will update med rec if any updates from INVERTED BLOCK OPERATOR secvices.
--- NOTE | 2024-12-23 15:30 | MHC.CM.PN ---
IMM 12/23/24, discussed on the phone with dtr. Pt has been either sleeping or with provider on CM attempts to complete assessment. CM called HCP Tim Left message, called dtrMara to obtain information. Pt lives alone and has [employer] services, dtr reports that she has had a lot of falls. She had used [facility] services in the past, but was not able to communicate to non Belarusian speaking staff, so did not continue with service. PCP is at [facility], dtr does not know which provider. For DME, pt. has walker, emergency pendant, grabs bars, cane. Pt. may be able to arrange a ride home at [place], DCP: home with services. CM to follow for DC needs.
[2024-12-23] MEDS: Metoprolol Tartrate 12.5 MG HALFTAB PO ×2 (16:14→22:34)
[2024-12-23 16:36] LABS: Glucose, Whole Blood 209 mg/dL (60-115)
[2024-12-23 20:40] LABS: Glucose, Whole Blood 161 mg/dL (60-115)
[2024-12-23] MEDS: Azithromycin 500 MG in 0.9 % Sodium Chloride 250 ML 125 MG IV (22:22)
[2024-12-23] MEDS: Melatonin 3 MG TABLET 6 MG PO (22:23)
[2024-12-23] MEDS: cefTRIAXone sodium 1 GM VIAL IVPUSH (22:23)
[2024-12-23] MEDS: Acetaminophen 325 MG TABLET 650 MG PO (22:23)
[2024-12-24] VITALS (9 sets, daily range): BP systolic 109–139; BP diastolic 60–74; PULSE 72–93; RESP 16–24; TEMP 36.1–37.3; O2SAT 95–97; BMI 37.4
[2024-12-24] MEDS: Metoprolol Tartrate 12.5 MG HALFTAB PO (05:26)
[2024-12-24] MEDS: Enoxaparin Sodium 100 MG/ML SYRINGE 90 MG SUBCUT ×2 (05:27→14:31)
[2024-12-24 07:20] LABS: Glucose, Whole Blood 139 mg/dL (60-115)
[2024-12-24 07:30] LABS: Hemoglobin 10.3 g/dl (12.0-16.0); Mean Corpuscular HGB Conc 32.2 g/dl (31.0-35.0); Mean Corpuscular Hemoglobin 28.1 pg (27.0-33.0); Mean Corpuscular Volume 87.4 fL (80.0-98.0); Mean Platelet Volume 10.9 fL (9.4-12.3); Platelet Count 232 X10*3/uL (160-400); Red Blood Count 3.66 X10*6/uL (4.20-5.50); Red Cell Distribution Width 13.1 % (11.0-16.0); White Blood Count 9.9 X10*3/uL (4.8-10.8)
[2024-12-24 07:54] LABS: Anion Gap 13 (12-20); Blood Urea Nitrogen 39 mg/dL (9-16); Calcium 8.7 mg/dL (8.4-10.2); Carbon Dioxide 26 mmol/L (22-29); Chloride 106 mmol/L (96-108); Creatinine Clr Calc Pharmacy 37.1; Estimated Glomerular Filt Rate 40; Glucose Random 142 mg/dL (60-115); Potassium 3.5 mmol/L (3.3-5.1); Sodium 141 mmol/L (135-145)
[2024-12-24 08:22] LABS: Procalcitonin 12.66 ng/mL
[2024-12-24] MEDS: Clopidogrel Bisulfate 75 MG TABLET PO (09:48)
[2024-12-24] MEDS: Atorvastatin Calcium 80 MG TABLET PO (09:48)
[2024-12-24] MEDS: Mirabegron 50 MG TAB.ER.24H PO (09:48)
[2024-12-24] MEDS: Docusate Sodium 100 MG CAPSULE PO (09:48)
[2024-12-24] MEDS: Aspirin 81 MG TAB.CHEW PO (09:48)
[2024-12-24] MEDS: Ferrous Sulfate 324 MG TABLET.DR PO (09:48)
[2024-12-24] MEDS: Metoprolol Succinate ER 50 MG TAB.ER.24H PO (09:49)
[2024-12-24] MEDS: Famotidine 20 MG TABLET PO ×2 (09:49→21:10)
[2024-12-24] MEDS: Psyllium seed 3.7 GM PACKET PO ×2 (09:49→21:10)
[2024-12-24] MEDS: Losartan Potassium 25 MG TABLET PO (09:49)
[2024-12-24] MEDS: Furosemide 40 MG/4 ML VIAL IVPUSH (09:50)
[2024-12-24] MEDS: 0.9 % Sodium Chloride Flush 3 ML SYRINGE IVFLUSH ×3 (09:52→21:11)
[2024-12-24] MEDS: DULoxetine HCl 30 MG CAPSULE.DR PO (09:52)
--- NOTE | 2024-12-24 10:47 | HO.PM.IMPN ---
Subjective Subjective Date of Service: 12/24/24 Interval History: This history was taken in [place] from the patient. Dyspnea improved Legs still swollen Review of Systems Review of Systems: Yes all other systems are reviewed and are negative Physical Exam Vital Signs: Vital Signs: Last Vital Signs Temp 96.9 F 12/24/24 07:08 Pulse 75 12/24/24 07:08 Resp 18 12/24/24 07:08 BP 139/74 12/24/24 07:08 Pulse Ox 97 12/24/24 07:08 O2 Del Method Room Air 12/24/24 07:08 O2 Flow Rate 97 12/23/24 01:00 BMI result Body Mass Index 37.4 Gen: in no acute distress HEENT: sclera anicteric, moist mucus membranes Neck: supple Lungs: diminished Heart: irregular, no murmurs Abd: soft, non-tender, non-distended Ext: 2+ leg edema bilaterally Skin: warm/well-perfused Neuro: alert and oriented x3, no focal findings Psych: appropriate affect Objective Data Active Medications Acetaminophen (Acetaminophen 325 Mg Tablet) 650 mg PO Q6H PRN PRN Reason: Pain, Mild 1-3,fever,headache Last Admin: 12/23/24 22:23 Dose: 650 mg Documented By: SONIA Albuterol Sulfate (Albuterol Sulfate 90 Mcg 8 Gm Inhaler) 2 puff INHALE Q4H PRN PRN Reason: Wheezing Albuterol Sulfate (Albuterol Sulfate (0.083%) 2.5 Mg/3 Ml Vial.Neb) 2.5 mg INHALE Q6H PRN PRN Reason: Wheezing Aspirin (Aspirin 81 Mg Tab.Chew) 81 mg PO DAILY [facility] Last Admin: 12/24/24 09:48 Dose: 81 mg Documented By: DURGA Atorvastatin Calcium (Atorvastatin Calcium 80 Mg Tablet) 80 mg PO DAILY [facility] Last Admin: 12/24/24 09:48 Dose: 80 mg Documented By: DURGA Bisacodyl (Bisacodyl 5 Mg Tablet.) 10 mg PO BEDTIME [facility] Calcium Carbonate (Calcium Carbonate 750 Mg Tab.Chew) 750 mg PO Q4H PRN PRN Reason: Heartburn Ceftriaxone Sodium (Ceftriaxone Sodium 1 Gm Vial) 1 gm IVPUSH Q24H [facility] Last Admin: 12/23/24 22:23 Dose: 1 gm Documented By: SONIA Clopidogrel Bisulfate (Clopidogrel Bisulfate 75 Mg Tablet) 75 mg PO DAILY [facility] Last Admin: 12/24/24 09:48 Dose: 75 mg Documented By: DURGA Dextrose (Dextrose 50 % 25 Gm/50 Ml Syringe) 25 gm IVPUSH Q15M PRN; Protocol PRN Reason: per Hypoglycemia Standing Ord. Docusate Sodium (Docusate Sodium 100 Mg Capsule) 100 mg PO DAILY [facility] Last Admin: 12/24/24 09:48 Dose: 100 mg Documented By: DURGA Duloxetine HCl (Duloxetine Hcl 30 Mg Capsule.) 30 mg PO DAILY [facility] Last Admin: 12/24/24 09:52 Dose: 30 mg Documented By: DURGA Enoxaparin Sodium (Enoxaparin Sodium 100 Mg/Ml Syringe) 90 mg 1 mg/kg (90 mg) SUBCUT Q12H [facility] Last Admin: 12/24/24 05:27 Dose: 90 mg Documented By: SONIA Famotidine (Famotidine 20 Mg Tablet) 20 mg PO BID [facility] Last Admin: 12/24/24 09:49 Dose: 20 mg Documented By: DURGA Ferrous Sulfate (Ferrous Sulfate 324 Mg Tablet.) 324 mg PO DAILY [facility] Last Admin: 12/24/24 09:48 Dose: 324 mg Documented By: DURGA Fluticasone/Vilanterol (Fluticasone/Vilanterol 100/25 Blst.W.Dev) 1 puff INHALE RDAILY [facility] Furosemide (Furosemide 40 Mg/4 Ml Vial) 40 mg IVPUSH DAILY [facility]; Protocol Last Admin: 12/24/24 09:50 Dose: 40 mg Documented By: DURGA Glucose (Glucose Gel 15 Gm Gel..Gram.) 15 gm PO Q15M PRN; Protocol PRN Reason: per Hypoglycemia Standing Ord. Guaifenesin/Dextromethorphan (Guaifenesin Dm 100/10/5 Ml 5 Ml Syrup) 10 ml PO Q4H PRN PRN Reason: cough or congestion Azithromycin 500 mg/ Sodium (Chloride) 250 mls @ 125 mls/hr IV Q24H [facility] Last Infusion: 12/24/24 00:22 Dose: Infused Documented By: SONIA Insulin Human Lispro (Insulin Lispro 100 Unit/Ml 3 Ml Vial) 0 unit SUBCUT QIDACHS [facility]; Protocol Last Admin: 12/24/24 07:26 Dose: Not Given Documented By: DURGA Non-Admin Reason: No Insulin Coverage Losartan Potassium (Losartan Potassium 25 Mg Tablet) 25 mg PO DAILY [facility]; Protocol Last Admin: 12/24/24 09:49 Dose: 25 mg Documented By: DURGA Magnesium Hydroxide (Milk Of Magnesia 30 Ml Oral.Susp) 30 ml PO DAILY PRN PRN Reason: Constipation Melatonin (Melatonin 3 Mg Tablet) 6 mg PO BEDTIME PRN PRN Reason: Insomnia Last Admin: 12/23/24 22:23 Dose: 6 mg Documented By: SONIA Metoprolol Succinate (Metoprolol Succinate Er 50 Mg Tab.Er.24h) 50 mg PO DAILY [facility]; Protocol Last Admin: 12/24/24 09:49 Dose: 50 mg Documented By: DURGA Mirabegron (Mirabegron 50 Mg Tab.Er.24h) 50 mg PO DAILY [facility] Last Admin: 12/24/24 09:48 Dose: 50 mg Documented By: DURGA Ondansetron HCl (Ondansetron Hcl 4 Mg/2 Ml Vial) 4 mg IVPUSH Q8H PRN PRN Reason: Nausea and Vomiting Psyllium Hydrophilic Mucilloid (Psyllium Seed 3.7 Gm Packet) 3.7 gm PO BID [facility] Last Admin: 12/24/24 09:49 Dose: 3.7 gm Documented By: DURGA Sodium Chloride (0.9 % Sodium Chloride Flush 3 Ml Syringe) 3 ml IVFLUSH QSHIFT [facility] Last Admin: 12/24/24 09:52 Dose: 3 ml Documented By: DURGA Trazodone HCl (Trazodone Hcl 100 Mg Tablet) 100 mg PO BEDTIME [facility] Labs 12/24/24 07:16 12/24/24 07:16 Labs: Laboratory Results - last 24 hr 12/23/24 12/23/24 12/23/24 12:40 16:32 20:16 MCV MCH MCHC RDW Plt Count MPV Absolute Nucleated RBC Nucleated RBC % (auto) Anion Gap Estim Creat Clear Calc Estimated GFR POC Glucose 212 H 209 H 161 H Random Glucose Calcium Procalcitonin 12/24/24 12/24/24 07:11 07:16 MCV 87.4 MCH 28.1 MCHC 32.2 RDW 13.1 Plt Count 232 MPV 10.9 Absolute Nucleated RBC 0.000 Nucleated RBC % (auto) 0.0 Anion Gap 13 Estim Creat Clear Calc 37.1 Estimated GFR 40 POC Glucose 139 H Random Glucose 142 H Calcium 8.7 D Procalcitonin 12.66 Microbiology Microbiology Results: Microbiology 12/22/24 22:38 Blood Culture - Preliminary Blood - Venous No growth after 24 hours. 12/22/24 22:38 Blood Culture - Preliminary Blood - Venous No growth after 24 hours. Assessment and Plan (1) Pneumonia: Status: Acute (2) Non-ST elevation [place] (NSTEMI): Status: Acute Plan d2 for 79yo F with AF on apixaban, HFpEF, CAD s/p PCI, mod-sev MR, COPD not on home O2, HTN, CKD3, mood disorder, OAB, DM2 presenting with dyspnea, admitted for CHF/NSTEMI, sepsis from PNA sepsis due to multifocal PNA - 12/23- ceftriaxone + azithromycin, follow BCx, check urinary antigens for Legionella and pneumococcus + MRSA swab, trend PCT [12.66 today] - [employer]PH[employer] evaluation for concern for aspiration acute HFrEF - TTE 12/23/24: 1. Severely reduced LV ejection fraction of 25-30% 2. Severe biatrial enlargement 3. Mild mitral regurgitation 4. Normal measured RV systolic pressure 5. No pericardial effusion - continue IV furosemide, monitor I/O + lytes + BNP - continue metoprolol succinate, change losartan -> Enstresto, start empagliflozin NSTEMI - continue therapeutic enoxaparin [hold apixaban] for total 48hr [last dose today], clopidogrel, atorvastatin, metoprolol succinate - Cardiology consulted, will need outpatient ischemic workup acute hypoxic respiratory failure - weaned off of O2 chronic AF - was in RVR then got IV diltiazem in ED, now rate-controlled - resume apixaban tomorrow, continue metoprolol succinate CKD3 - monitor creatinine carefully with dialysis COPD not in acute exacerbation - continue controller + rescue inhalers mood disorder - duloxetine DM2 - hold MTF, give correction-dose lispro VTE ppx - enoxaparin dispo - PT consult Total time managing care of this patient today: 45 minutes. Quality Stroke Does the patient have a stroke diagnosis?: No VTE Prior VTE?: No VTE Risk Level:: Medical - moderate - high VTE Device Contraindication: Treatment Not Indicated VTE Drug Contraindication: N/A - Med Ordered
[2024-12-24 11:18] LABS: Glucose, Whole Blood 215 mg/dL (60-115)
--- NOTE | 2024-12-24 11:28 | PM.PNCARD ---
Subjective Subjective Date of Service: 12/24/24 Principal diagnosis: Acute NE, CHF, pneumonia Interval history: Patient was feeling better. He is concerned about her Johnson catheter. Intake and output overall suggest positive balance. Patient denies any chest pain today. Continues to have cough. Heart rate is better controlled. Review of Systems Constitutional: Reports no additional constitutional complaints Cardiovascular: Denies chest pain, Denies lightheadedness, Denies Loss of Consciousness, Denies palpitations, Reports dyspnea on exertion, Denies orthopnea and Denies paroxysmal nocturnal dyspnea Respiratory: Reports dyspnea on exertion Gastrointestinal: Reports no additional gastrointestinal complaints Reports system reviewed and no additional complaints, except as documented Endocrine: Denies palpitations Physical Exam Vital Signs: Last Vital Signs Temp 97.8 F 12/24/24 10:59 Pulse 93 12/24/24 10:59 Resp 17 12/24/24 10:59 BP 131/71 12/24/24 10:59 Pulse Ox 95 12/24/24 10:59 O2 Del Method Room Air 12/24/24 10:59 O2 Flow Rate 97 12/23/24 01:00 BMI result Body Mass Index 37.4 Const General: cooperative, comfortable, alert and awake Nutritional Appearance: obese Neck Neck: Yes trachea midline, Yes supple and Yes no JVD Resp Effort & Inspection: decreased respiratory effort Auscultation: bronchovesicular breath sounds on the right Cardio Jugular venous distension: no JVD Rhythm: abnormal rhythm irregularly irregular Heart sounds: S1 normal heart sound present, S2 normal heart sound present, no click and no gallops GI Auscultation: normal bowel sounds Neuro General: no focal motor deficits Extrem General: Yes no clubbing, cyanosis or edema Objective Labs and Meds 12/24/24 07:16 12/24/24 07:16 Lab results: Laboratory Results - last 24 hr 12/23/24 12/23/24 12/23/24 12:40 16:05 16:32 WBC RBC Hgb Hct MCV MCH MCHC RDW Plt Count MPV Absolute Nucleated RBC Nucleated RBC % (auto) Sodium Potassium Chloride Carbon Dioxide Anion Gap BUN Creatinine Estim Creat Clear Calc Estimated GFR POC Glucose 212 H 209 H Random Glucose Calcium Troponin I High Sens 9223.0 H* Procalcitonin 12/23/24 12/24/24 12/24/24 20:16 07:11 07:16 WBC 9.9 RBC 3.66 L Hgb 10.3 L Hct 32.0 L MCV 87.4 MCH 28.1 MCHC 32.2 RDW 13.1 Plt Count 232 MPV 10.9 Absolute Nucleated RBC 0.000 Nucleated RBC % (auto) 0.0 Sodium 141 Potassium 3.5 Chloride 106 Carbon Dioxide 26 Anion Gap 13 BUN 39 H Creatinine 1.28 Estim Creat Clear Calc 37.1 Estimated GFR 40 POC Glucose 161 H 139 H Random Glucose 142 H Calcium 8.7 D Troponin I High Sens Procalcitonin 12.66 12/24/24 11:10 WBC RBC Hgb Hct MCV MCH MCHC RDW Plt Count MPV Absolute Nucleated RBC Nucleated RBC % (auto) Sodium Potassium Chloride Carbon Dioxide Anion Gap BUN Creatinine Estim Creat Clear Calc Estimated GFR POC Glucose 215 H Random Glucose Calcium Troponin I High Sens Procalcitonin Progress Note: A&P Assessment and plan (1) Acute myocardial infarction: Status: Acute Assessment and Plan: Acute myocardial infarction question in the LAD territory in his setting of acute pneumonia with multiple comorbidities and patient not taking medications. Patient is doing much better. Currently not having any chest pain. Will increase metoprolol to 50 mg b.i.d.. Would start on Plavix 75 mg daily in addition to oral anticoagulation in the long run. For now continue IV heparin till tomorrow. Continue high-intensity statin therapy. Her main issue has been compliance with medications. (2) Decompensated heart failure: Status: Acute Assessment and Plan: Decompensated congestive heart failure with worsening LV ejection fraction question ischemic. Will need ischemic workup eventually if patient follows up and is compliant with the medications. Otherwise this would be a difficult condition to manage. Continue better rate control will increase metoprolol as above as well as for neurohormonal modulation. Switch losartan to Entresto therapy. Can switch to oral diuretics today. Heart failure education needs to be provided to the patient and more importantly to the family. May need assistant case manager involvement for health at home. (3) Persistent atrial fibrillation: Status: Acute Assessment and Plan: Persistent atrial fibrillation, rate is borderline controlled. Increase metoprolol as above. After tomorrow can switch to oral Eliquis therapy. Will sign of the case. Thank you for allowing me to partake in his care Time Spent With Patient Time: Total time managing care of this patient today ____ minutes. Progress Note: Quality Stroke Does the patient have a stroke diagnosis?: No Procedures Date of Service Date of Service: 12/24/24
[2024-12-24] MEDS: Insulin Lispro 100 UNIT/ML 3 ML VIAL SUBCUT ×2 (11:29→16:50)
[2024-12-24] MEDS: Empagliflozin 10 MG TABLET PO (11:30)
--- NOTE | 2024-12-24 12:31 | P.CNUR_ITS ---
History of Present Illness Consult details Consult date: 12/24/24 Narrative: CC: Left renal stone with mild hydro 79-year-old female Known to Urology Previous presentations with pyelonephritis and hydronephrosis Current imaging shows mild left hydronephrosis with known stone Chronic appearance Creatinine 1.3 in normal range UA microscopic hematuria - positive glucose, negative nitrite negative leukocytes No acute urologic issue Review of Systems 2 Constitutional: Constitutional: Reports as per HPI and Reports no additional constitutional complaints Cardiovascular: Cardiovascular: Reports as per HPI and Reports no additional cardiovascular complaints Respiratory: Respiratory: Reports as per HPI and Reports no additional respiratory complaints Gastrointestinal: Gastrointestinal: Reports as per HPI and Reports no additional gastrointestinal complaints Genitourinary: Genitourinary: Reports as per HPI Musculoskeletal: Musculoskeletal: Reports no additional musculoskeletal complaints and Reports as per HPI Neurologic: Reports system reviewed and no additional complaints, except as documented and Reports as per HPI [facility] Past Medical History Medical History Persistent atrial fibrillation Elevated liver enzymes NSTEMI (non-ST elevated myocardial infarction) Anxiety Asymmetrical thyroid CHF (congestive heart failure) COVID-19 Renal cyst, acquired, left Obstruction, uropathy Thrombosed external hemorrhoid COPD (chronic obstructive pulmonary disease) Atrial fibrillation Gout Asthma Alcohol abuse Nephrolithiasis Knee arthropathy Osteoarthritis Diabetes Arthritis Hypertension Surgical History Surgical History Hx of bilateral cataract extraction Hx of hysterectomy Hx of lithotripsy History of total right knee replacement History of esophagogastroduodenoscopy (EGD) Hx of cystoscopy Hx of colonoscopy History of total knee arthroplasty Social History Social History Household Members: None Household Members Other:: DAUGHTER Housing: Apartment Housing Other:: low income housing Do you presently have visiting nurse or other home services: Yes (has a SURGICAL TECH but reports is not consistent with coverage) Unable to assess alcohol history related to: Unknown Alcohol intake: unknown Patient Tobacco Use Status: Never used Tobacco e-Cigarette/Vaping Use: Never Used Second Hand Smoke Exposure: No Advance Directives Date on File: 09/07/22 service: No Current occupational status: disabled Meds Allergies Allergy/AdvReac Type Severity Reaction Status Date / Time montelukast [Singulair] Allergy Unknown itching/marysol Verified 12/22/24 21:40 h Active Medications: Current Medications Acetaminophen (Acetaminophen 325 Mg Tablet) 650 mg PO Q6H PRN PRN Reason: Pain, Mild 1-3,fever,headache Last Admin: 12/23/24 22:23 Dose: 650 mg Albuterol Sulfate (Albuterol Sulfate 90 Mcg 8 Gm Inhaler) 2 puff INHALE Q4H PRN PRN Reason: Wheezing Albuterol Sulfate (Albuterol Sulfate (0.083%) 2.5 Mg/3 Ml Vial.Neb) 2.5 mg INHALE Q6H PRN PRN Reason: Wheezing Apixaban (Apixaban 5 Mg Tablet) 5 mg PO BID [facility] Atorvastatin Calcium (Atorvastatin Calcium 80 Mg Tablet) 80 mg PO DAILY [facility] Last Admin: 12/24/24 09:48 Dose: 80 mg Bisacodyl (Bisacodyl 5 Mg Tablet.) 10 mg PO BEDTIME [facility] Calcium Carbonate (Calcium Carbonate 750 Mg Tab.Chew) 750 mg PO Q4H PRN PRN Reason: Heartburn Ceftriaxone Sodium (Ceftriaxone Sodium 1 Gm Vial) 1 gm IVPUSH Q24H [facility] Last Admin: 12/23/24 22:23 Dose: 1 gm Clopidogrel Bisulfate (Clopidogrel Bisulfate 75 Mg Tablet) 75 mg PO DAILY [facility] Last Admin: 12/24/24 09:48 Dose: 75 mg Dextrose (Dextrose 50 % 25 Gm/50 Ml Syringe) 25 gm IVPUSH Q15M PRN; Protocol PRN Reason: per Hypoglycemia Standing Ord. Docusate Sodium (Docusate Sodium 100 Mg Capsule) 100 mg PO DAILY [facility] Last Admin: 12/24/24 09:48 Dose: 100 mg Duloxetine HCl (Duloxetine Hcl 30 Mg Capsule.) 30 mg PO DAILY [facility] Last Admin: 12/24/24 09:52 Dose: 30 mg Empagliflozin (Empagliflozin 10 Mg Tablet) 10 mg PO DAILY [facility] Last Admin: 12/24/24 11:30 Dose: 10 mg Enoxaparin Sodium (Enoxaparin Sodium 100 Mg/Ml Syringe) 90 mg 1 mg/kg (90 mg) SUBCUT Q12H [facility] Stop: 12/24/24 14:01 Last Admin: 12/24/24 05:27 Dose: 90 mg Famotidine (Famotidine 20 Mg Tablet) 20 mg PO BID [facility] Last Admin: 12/24/24 09:49 Dose: 20 mg Ferrous Sulfate (Ferrous Sulfate 324 Mg Tablet.Dr) 324 mg PO DAILY [facility] Last Admin: 12/24/24 09:48 Dose: 324 mg Fluticasone/Vilanterol (Fluticasone/Vilanterol 100/25 Blst.W.Dev) 1 puff INHALE RDAILY [facility] Last Admin: 12/24/24 11:13 Dose: Not Given Furosemide (Furosemide 40 Mg/4 Ml Vial) 40 mg IVPUSH DAILY [facility]; Protocol Last Admin: 12/24/24 09:50 Dose: 40 mg Glucose (Glucose Gel 15 Gm Gel..Gram.) 15 gm PO Q15M PRN; Protocol PRN Reason: per Hypoglycemia Standing Ord. Guaifenesin/Dextromethorphan (Guaifenesin Dm 100/10/5 Ml 5 Ml Syrup) 10 ml PO Q4H PRN PRN Reason: cough or congestion Azithromycin 500 mg/ Sodium (Chloride) 250 mls @ 125 mls/hr IV Q24H [facility] Last Infusion: 12/24/24 00:22 Dose: Infused Insulin Human Lispro (Insulin Lispro 100 Unit/Ml 3 Ml Vial) 0 unit SUBCUT QIDACHS [facility]; Protocol Last Admin: 12/24/24 11:29 Dose: 4 unit Magnesium Hydroxide (Milk Of Magnesia 30 Ml Oral.Susp) 30 ml PO DAILY PRN PRN Reason: Constipation Melatonin (Melatonin 3 Mg Tablet) 6 mg PO BEDTIME PRN PRN Reason: Insomnia Last Admin: 12/23/24 22:23 Dose: 6 mg Metoprolol Succinate (Metoprolol Succinate Er 50 Mg Tab.Er.24h) 50 mg PO DAILY [facility]; Protocol Last Admin: 12/24/24 09:49 Dose: 50 mg Mirabegron (Mirabegron 50 Mg Tab.Er.24h) 50 mg PO DAILY [facility] Last Admin: 12/24/24 09:48 Dose: 50 mg Ondansetron HCl (Ondansetron Hcl 4 Mg/2 Ml Vial) 4 mg IVPUSH Q8H PRN PRN Reason: Nausea and Vomiting Psyllium Hydrophilic Mucilloid (Psyllium Seed 3.7 Gm Packet) 3.7 gm PO BID [facility] Last Admin: 12/24/24 09:49 Dose: 3.7 gm Sacubitril/Valsartan (Sacubitril/Valsartan 1 Tab Tablet) 1 tab PO BID [facility]; Protocol Sodium Chloride (0.9 % Sodium Chloride Flush 3 Ml Syringe) 3 ml IVFLUSH QSHIFT [facility] Last Admin: 12/24/24 09:52 Dose: 3 ml Trazodone HCl (Trazodone Hcl 100 Mg Tablet) 100 mg PO BEDTIME [facility] Home Medications ?Medication ?Instructions ?Recorded ?Confirmed ?Last Taken ?Type albuterol sulfate 2.5 mg/3 mL 2.5 mg inhalation Q6H PRN Wheezing 09/06/22 12/23/24 12/19/22 History (0.083 %) solution for nebulization blood sugar diagnostic ([employer] 09/06/22 10/26/24 Unknown History Verio test strips) blood-glucose meter ([employer] 09/06/22 10/26/24 Unknown History Verio Flex Meter) fluticasone 250 mcg-salmeterol 50 1 puff inhalation BID 09/06/22 12/23/24 12/19/22 History mcg/dose blistr powdr for inhalation (Advair Diskus) lancets 33 gauge ([employer] 09/06/22 10/26/24 Unknown History Plus Lancet) albuterol sulfate 90 mcg/actuation 2 puff inhalation Q4H PRN Wheezing 10/23/22 12/23/24 Unknown History aerosol inhaler (Ventolin HFA) atorvastatin 80 mg tablet 80 mg PO DAILY 10/23/22 12/23/24 12/19/22 History metformin 850 mg tablet 850 mg PO DAILY 10/23/22 12/23/24 12/18/22 History clopidogrel 75 mg tablet 75 mg PO DAILY 04/27/23 12/23/24 11/10/23 History metoprolol succinate 50 mg 50 mg PO DAILY 04/27/23 12/23/24 Unknown History tablet,extended release 24 hr (Toprol XL) acetaminophen 325 mg tablet 650 mg PO Q6H PRN Moderate Pain 05/25/23 12/23/24 Unknown History (Scale Score 5-6) duloxetine 30 mg capsule,delayed 30 mg PO DAILY 07/28/23 12/23/24 Unknown History release cetirizine 10 mg tablet 10 mg PO DAILY PRN allergies 04/06/24 10/26/24 Unknown History pyridoxine (vitamin B6) 100 mg 100 mg PO DAILY 04/06/24 10/26/24 Unknown History tablet simethicone 80 mg chewable tablet 80 mg PO QID PRN Indigestion 04/06/24 10/26/24 Unknown History calcium 315 mg (as 1 tab PO BID 04/21/24 12/23/24 Unknown History citrate)-vitamin D3 6.25 mcg (250 unit) tablet trazodone 100 mg tablet 100 mg PO BEDTIME 04/21/24 12/23/24 Unknown History blood pressure test kit-large #1 ea 10/19/24 10/26/24 Unknown History ferrous gluconate 324 mg (38 mg 324 mg PO DAILY 10/19/24 12/23/24 Unknown History iron) tablet calcium polycarbophil 625 mg 625 mg PO DAILY 12/23/24 12/23/24 Unknown History tablet (Fiber-Lax) cholecalciferol (vitamin D3) 50 50 mcg PO DAILY 12/23/24 12/23/24 Unknown History mcg (2,000 unit) capsule (Vitamin D3) dextromethorphan-guaifenesin 10 10 ml PO Q4H PRN cough or 12/23/24 12/23/24 Unknown History mg-100 mg/5 mL oral liquid congestion (Josselyn-Tussin DM) diclofenac sodium 1 % topical gel 1 g topical TID PRN Back Pain 12/23/24 12/23/24 Unknown History docusate sodium 100 mg capsule 100 mg PO DAILY 12/23/24 12/23/24 Unknown History (Stool Softener) mirabegron 50 mg tablet,extended 50 mg PO DAILY 12/23/24 12/23/24 Unknown History release 24 hr (Myrbetriq) psyllium husk 3 gram/5.4 gram oral 1 tsp PO BID 12/23/24 12/23/24 Unknown History powder (Reguloid (psyllium husk)) Physical Exam 2 Vital Signs: Vital Signs: Last Vital Signs Temp 97.8 F 12/24/24 10:59 Pulse 93 12/24/24 10:59 Resp 17 12/24/24 10:59 BP 131/71 12/24/24 10:59 Pulse Ox 95 12/24/24 10:59 O2 Del Method Room Air 12/24/24 10:59 O2 Flow Rate 97 12/23/24 01:00 BMI result Body Mass Index 37.4 Const: General: cooperative, healthy appearing, comfortable and no acute distress Orientation/consciousness: patient oriented x3 HEENT: Face and sinus: Yes normal facial exam Mouth: moist mucous membranes Neck: Neck: Yes normal visual inspection, Yes full ROM and Yes trachea midline Chest: Chest palpation & inspection: normal inspection of the chest Resp: Effort & Inspection: normal respiratory effort, able to speak in complete sentences and no respiratory distress GI: Inspection: Yes normal to inspection Back/Spine/Pelvis: Cervical Spine: normal cervical lordosis Thoracic/Lumbar Spine: thoracic and lumbar spine normal to inspection Skin: General skin exam: no rashes or lesions noted Neuro: General: patient oriented x3, tone normal and moves all extremities Extrem: General: Yes normal to inspection and Yes capillary refill normal Results Labs 12/24/24 07:16 12/24/24 07:16 Labs: Abnormal lab results 12/23/24 12/23/24 12/23/24 Range/Units 12:40 16:05 16:32 RBC (4.20-5.50) X10*6/uL Hgb (12.0-16.0) g/dl Hct (37.0-47.0) % BUN (9-16) mg/dL POC Glucose 212 H 209 H (60-115) mg/dL Random Glucose (60-115) mg/dL Troponin I High Sens 9223.0 H* (<3.5-17.0) ng/L 12/23/24 12/24/24 12/24/24 Range/Units 20:16 07:11 07:16 RBC 3.66 L (4.20-5.50) X10*6/uL Hgb 10.3 L (12.0-16.0) g/dl Hct 32.0 L (37.0-47.0) % BUN 39 H (9-16) mg/dL POC Glucose 161 H 139 H (60-115) mg/dL Random Glucose 142 H (60-115) mg/dL Troponin I High Sens (<3.5-17.0) ng/L 12/24/24 Range/Units 11:10 RBC (4.20-5.50) X10*6/uL Hgb (12.0-16.0) g/dl Hct (37.0-47.0) % BUN (9-16) mg/dL POC Glucose 215 H (60-115) mg/dL Random Glucose (60-115) mg/dL Troponin I High Sens (<3.5-17.0) ng/L Short CBC 12/24/24 Range/Units 07:16 WBC 9.9 (4.8-10.8) X10*3/uL Hgb 10.3 L (12.0-16.0) g/dl Hct 32.0 L (37.0-47.0) % Plt Count 232 (160-400) X10*3/uL BMP 12/24/24 07:16 Sodium 141 Potassium 3.5 Chloride 106 Carbon Dioxide 26 BUN 39 H Creatinine 1.28 Calcium 8.7 D Urine 12/22/24 Range/Units 23:29 Urine Color Yellow Urine Appearance Clear Urine pH 5.5 (5.0-9.0) Ur Specific [place] >= 1.030 H (1.005-1.025) Urine Protein >=1000 (4+) H (Neg-Trace) mg/dL Urine Glucose (UA) >=1000 H (Negative) mg/dL All other labs normal. Assessment and Plan (1) Nephrolithiasis: Status: Acute (2) Hydronephrosis: Status: Acute Plan Chronic left lower pole stone Chronic mild left hydronephrosis Stable creatinine No acute urologic issue Procedures Date of Service Date of Service: 12/24/24
--- NOTE | 2024-12-24 12:56 | MHC.SL.SWA ---
Speech Pathologist Impression: Risk of Aspiration Due to: History of Pneumonia Dysphasia Diet Status: Liquid Consistency and Strategies for Safe Swallow: Liquid Intake Recommendation: Thin Liquid Intake Strategies: Small Sips Solid Food Consistency: Dietary Recommendations: Regular Additional Modifications to Solid Foods: Patient can have food brought in from outside. Oral Medication Intake: Whole with Liquid Please contact the pharmacy regarding appropriate crushable or liquid drug formulations that are available whenever modified delivery is recommended. Compensatory Strategies and Precautions to be Taken for Safe Swallow: Sitting Upright (90 deg) Liquids from Cup Liquids from Straw Small Bites and Sips Alternate Liquids/Solids Supervision While Eating and Drinking for Safe Swallow: None Needed Foods to Avoid: Swallowing Recommended Treatments: Recommendation for Speech: NA:Typical Evaluation Comment: Patient presents with all aspects of swallow function WNL and is on least restrictive diet of Regular/thin/pills whole with liquid and tolerating well. No indication of aspiration risk on this study. Recommend patient continue on current diet. No further APPRAISAL SPECIALIST service recommended at this time, please re-contact if any additional concerns arise. Frequency/Duration: Date Range for Service Req: Timeline to reassess: Lean Manufacturing Engineer Clinican/Clinical Fellow: No Supervisory Statement: I have reviewed and agree with the student/clinical fellow's documentation: N/A Speech Language Pathologist: Jewels Bronson M.A., CCC-APPRAISAL SPECIALIST
[2024-12-24 16:30] LABS: Glucose, Whole Blood 176 mg/dL (60-115)
--- NOTE | 2024-12-24 17:09 | PC.NURSE ---
vance cath removed per order at 1700. pt dt void at 2300 to 0100 12/25/24
[2024-12-24 20:38] LABS: Glucose, Whole Blood 147 mg/dL (60-115)
[2024-12-24] MEDS: traZODone HCL 100 MG TABLET PO (21:10)
[2024-12-24] MEDS: cefTRIAXone sodium 1 GM VIAL IVPUSH (21:10)
[2024-12-24] MEDS: Melatonin 3 MG TABLET 6 MG PO (21:10)
[2024-12-24] MEDS: Azithromycin 500 MG in 0.9 % Sodium Chloride 250 ML 125 MG IV (21:11)
[2024-12-24] MEDS: guaiFENesin DM 100/10/5 ML 5 ML SYRUP 10 ML PO (21:12)
[2024-12-25] VITALS (7 sets, daily range): BP systolic 114–171; BP diastolic 65–81; PULSE 55–97; RESP 14–18; TEMP 36.3–36.6; O2SAT 94–98
[2024-12-25 07:34] LABS: Anion Gap 14 (12-20); Blood Urea Nitrogen 35 mg/dL (9-16); Calcium 8.4 mg/dL (8.4-10.2); Carbon Dioxide 23 mmol/L (22-29); Chloride 106 mmol/L (96-108); Creatinine Clr Calc Pharmacy 40.3; Estimated Glomerular Filt Rate 44; Glucose Random 161 mg/dL (60-115); Magnesium 2.1 mg/dL (1.6-2.6); Potassium 3.4 mmol/L (3.3-5.1); Sodium 140 mmol/L (135-145)
[2024-12-25 07:39] LABS: B Type Natriuretic Peptide 648 pg/mL (<100)
[2024-12-25] MEDS: Fluticasone/Vilanterol 100/25 BLST.W.DEV 1 PUFF INHALE (07:51)
[2024-12-25 07:53] LABS: Glucose, Whole Blood 147 mg/dL (60-115)
[2024-12-25] MEDS: Clopidogrel Bisulfate 75 MG TABLET PO (08:28)
[2024-12-25] MEDS: Apixaban 5 MG TABLET PO ×2 (08:28→20:13)
[2024-12-25] MEDS: Atorvastatin Calcium 80 MG TABLET PO (08:28)
[2024-12-25] MEDS: Metoprolol Succinate ER 50 MG TAB.ER.24H PO (08:28)
[2024-12-25] MEDS: Famotidine 20 MG TABLET PO ×2 (08:28→20:12)
[2024-12-25] MEDS: guaiFENesin DM 100/10/5 ML 5 ML SYRUP 10 ML PO (08:28)
[2024-12-25] MEDS: DULoxetine HCl 30 MG CAPSULE.DR PO (08:28)
[2024-12-25] MEDS: Sacubitril/Valsartan 24/26 1 TAB TABLET PO ×2 (08:28→20:11)
[2024-12-25] MEDS: Mirabegron 50 MG TAB.ER.24H PO (08:28)
[2024-12-25] MEDS: Empagliflozin 10 MG TABLET PO (08:29)
[2024-12-25] MEDS: Ferrous Sulfate 324 MG TABLET.DR PO (08:29)
[2024-12-25] MEDS: Docusate Sodium 100 MG CAPSULE PO (08:29)
[2024-12-25] MEDS: Furosemide 40 MG/4 ML VIAL IVPUSH (08:29)
[2024-12-25] MEDS: Psyllium seed 3.7 GM PACKET PO ×2 (08:32→20:19)
[2024-12-25] MEDS: 0.9 % Sodium Chloride Flush 3 ML SYRINGE IVFLUSH ×3 (08:46→20:19)
[2024-12-25 12:26] LABS: Glucose, Whole Blood 237 mg/dL (60-115)
[2024-12-25] MEDS: Insulin Lispro 100 UNIT/ML 3 ML VIAL SUBCUT ×3 (12:45→20:28)
--- NOTE | 2024-12-25 13:11 | HO.PM.IMPN ---
Subjective Subjective Date of Service: 12/25/24 Interval History: Being followed for non ST-elevation CT, CHF with reduced EF Feeling better denies chest pain, no shortness of breath complaining of cough productive of blood-tinged sputum, no acute events overnight, denies fever, no chills, tolerating diet with no nausea vomiting abdominal pain or diarrhea. Review of Systems All other system reviewed and are negative Physical Exam Vital Signs: Vital Signs: Last Vital Signs Temp 97.8 F 12/25/24 11:47 Pulse 76 12/25/24 11:47 Resp 14 12/25/24 11:47 BP 142/78 H 12/25/24 11:47 Pulse Ox 96 12/25/24 11:47 O2 Del Method Room Air 12/25/24 11:47 O2 Flow Rate 97 12/23/24 01:00 BMI result Body Mass Index 37.4 Const: Other: Gen: in no acute distress HEENT: sclera anicteric, moist mucus membranes Neck: supple, no JVD Lungs: diminished, no respiratory distress Heart: irregular, no murmurs Abd: soft, non-tender, non-distended Ext: leg edema resolved Skin: warm/well-perfused Neuro: alert and oriented x3, no focal findings Psych: appropriate affect Objective Data Active Medications Acetaminophen (Acetaminophen 325 Mg Tablet) 650 mg PO Q6H PRN PRN Reason: Pain, Mild 1-3,fever,headache Last Admin: 12/23/24 22:23 Dose: 650 mg Documented By: SONIA Albuterol Sulfate (Albuterol Sulfate 90 Mcg 8 Gm Inhaler) 2 puff INHALE Q4H PRN PRN Reason: Wheezing Albuterol Sulfate (Albuterol Sulfate (0.083%) 2.5 Mg/3 Ml Vial.Neb) 2.5 mg INHALE Q6H PRN PRN Reason: Wheezing Apixaban (Apixaban 5 Mg Tablet) 5 mg PO BID [facility] Last Admin: 12/25/24 08:28 Dose: 5 mg Documented By: DURGA Atorvastatin Calcium (Atorvastatin Calcium 80 Mg Tablet) 80 mg PO DAILY [facility] Last Admin: 12/25/24 08:28 Dose: 80 mg Documented By: DURGA Bisacodyl (Bisacodyl 5 Mg Tablet.) 10 mg PO BEDTIME [facility] Last Admin: 12/24/24 21:11 Dose: Not Given Documented By: YU Non-Admin Reason: Patient Refused Calcium Carbonate (Calcium Carbonate 750 Mg Tab.Chew) 750 mg PO Q4H PRN PRN Reason: Heartburn Ceftriaxone Sodium (Ceftriaxone Sodium 1 Gm Vial) 1 gm IVPUSH Q24H [facility] Last Admin: 12/24/24 21:10 Dose: 1 gm Documented By: YU Clopidogrel Bisulfate (Clopidogrel Bisulfate 75 Mg Tablet) 75 mg PO DAILY [facility] Last Admin: 12/25/24 08:28 Dose: 75 mg Documented By: DURGA Dextrose (Dextrose 50 % 25 Gm/50 Ml Syringe) 25 gm IVPUSH Q15M PRN; Protocol PRN Reason: per Hypoglycemia Standing Ord. Docusate Sodium (Docusate Sodium 100 Mg Capsule) 100 mg PO DAILY [facility] Last Admin: 12/25/24 08:29 Dose: 100 mg Documented By: DURGA Duloxetine HCl (Duloxetine Hcl 30 Mg Capsule.) 30 mg PO DAILY [facility] Last Admin: 12/25/24 08:28 Dose: 30 mg Documented By: DURGA Empagliflozin (Empagliflozin 10 Mg Tablet) 10 mg PO DAILY [facility] Last Admin: 12/25/24 08:29 Dose: 10 mg Documented By: DURGA Famotidine (Famotidine 20 Mg Tablet) 20 mg PO BID [facility] Last Admin: 12/25/24 08:28 Dose: 20 mg Documented By: DURGA Ferrous Sulfate (Ferrous Sulfate 324 Mg Tablet.) 324 mg PO DAILY [facility] Last Admin: 12/25/24 08:29 Dose: 324 mg Documented By: DURGA Fluticasone/Vilanterol (Fluticasone/Vilanterol 100/25 Blst.W.Dev) 1 puff INHALE RDAILY [facility] Last Admin: 12/25/24 07:51 Dose: 1 puff Documented By: OMAR Furosemide (Furosemide 40 Mg/4 Ml Vial) 40 mg IVPUSH DAILY [facility]; Protocol Last Admin: 12/25/24 08:29 Dose: 40 mg Documented By: DURGA Glucose (Glucose Gel 15 Gm Gel..Gram.) 15 gm PO Q15M PRN; Protocol PRN Reason: per Hypoglycemia Standing Ord. Guaifenesin/Dextromethorphan (Guaifenesin Dm 100/10/5 Ml 5 Ml Syrup) 10 ml PO Q4H PRN PRN Reason: cough or congestion Last Admin: 12/25/24 08:28 Dose: 10 ml Documented By: DURGA Azithromycin 500 mg/ Sodium (Chloride) 250 mls @ 125 mls/hr IV Q24H [facility] Last Infusion: 12/25/24 00:15 Dose: Infused Documented By: YU Insulin Human Lispro (Insulin Lispro 100 Unit/Ml 3 Ml Vial) 0 unit SUBCUT QIDACHS [facility]; Protocol Last Admin: 12/25/24 12:45 Dose: 4 unit Documented By: DURGA Magnesium Hydroxide (Milk Of Magnesia 30 Ml Oral.Susp) 30 ml PO DAILY PRN PRN Reason: Constipation Melatonin (Melatonin 3 Mg Tablet) 6 mg PO BEDTIME PRN PRN Reason: Insomnia Last Admin: 12/24/24 21:10 Dose: 6 mg Documented By: YU Comments: requested for sleep Metoprolol Succinate (Metoprolol Succinate Er 50 Mg Tab.Er.24h) 50 mg PO DAILY [facility]; Protocol Last Admin: 12/25/24 08:28 Dose: 50 mg Documented By: DURGA Mirabegron (Mirabegron 50 Mg Tab.Er.24h) 50 mg PO DAILY [facility] Last Admin: 12/25/24 08:28 Dose: 50 mg Documented By: DURGA Ondansetron HCl (Ondansetron Hcl 4 Mg/2 Ml Vial) 4 mg IVPUSH Q8H PRN PRN Reason: Nausea and Vomiting Psyllium Hydrophilic Mucilloid (Psyllium Seed 3.7 Gm Packet) 3.7 gm PO BID [facility] Last Admin: 12/25/24 08:32 Dose: 3.7 gm Documented By: DURGA Sacubitril/Valsartan (Sacubitril/Valsartan 1 Tab Tablet) 1 tab PO BID [facility]; Protocol Last Admin: 12/25/24 08:28 Dose: 1 tab Documented By: DURGA Sodium Chloride (0.9 % Sodium Chloride Flush 3 Ml Syringe) 3 ml IVFLUSH QSHIFT [facility] Last Admin: 12/25/24 08:46 Dose: 3 ml Documented By: DURGA Trazodone HCl (Trazodone Hcl 100 Mg Tablet) 100 mg PO BEDTIME [facility] Last Admin: 12/24/24 21:10 Dose: 100 mg Documented By: YU Labs 12/24/24 07:16 12/25/24 06:49 Labs: Laboratory Results - last 24 hr 12/24/24 12/24/24 12/25/24 16:27 20:30 06:49 Anion Gap 14 Estim Creat Clear Calc 40.3 Estimated GFR 44 POC Glucose 176 H 147 H Random Glucose 161 H Calcium 8.4 Magnesium 2.1 B-Natriuretic Peptide 648 H 12/25/24 12/25/24 07:39 11:51 Anion Gap Estim Creat Clear Calc Estimated GFR POC Glucose 147 H 237 H Random Glucose Calcium Magnesium B-Natriuretic Peptide Microbiology Microbiology Results: Microbiology 12/22/24 22:38 Blood Culture - Preliminary Blood - Venous No growth after 48 hours. 12/22/24 22:38 Blood Culture - Preliminary Blood - Venous No growth after 48 hours. Assessment and Plan (1) Decompensated heart failure: Status: Acute (2) Acute myocardial infarction: Status: Acute (3) Pneumonia: Status: Acute Plan 79yo F with AF on apixaban, HFpEF, CAD s/p PCI, mod-sev MR, COPD not on home O2, HTN, CKD3, mood disorder, OAB, DM2 presenting with dyspnea, admitted for CHF/NSTEMI, sepsis from PNA sepsis due to multifocal PNA -feeling better complaining of cough productive of blood-tinged sputum likely due to recent use of Lovenox, WBC normalized - 12/23- ceftriaxone + azithromycin, blood cultures negative times 48 hours, urinary antigens for Legionella and pneumococcus pending , trend PCT [12.66 today] - seen by speech therapy they recommend regular diet with clear liquids, no further recommendation and no concern for aspiration -will transition to by mouth antibiotics at a.m. acute HFrEF - TTE 12/23/24: 1. Severely reduced LV ejection fraction of 25-30% 2. Severe biatrial enlargement 3. Mild mitral regurgitation 4. Normal measured RV systolic pressure 5. No pericardial effusion - continue IV furosemide 1 more day, fluid balance positive, monitor I/O + lytes + BNP 648 improved from 2654, baseline around 350 - continue metoprolol succinate, losartan changed to Enstresto, continue empagliflozin started on 12/24. NSTEMI - status post 48 hours of therapeutic enoxaparin , continue clopidogrel, atorvastatin, metoprolol succinate - Cardiology recommend outpatient ischemic workup acute hypoxic respiratory failure - resolved chronic AF - was in [facility] then got IV diltiazem in ED, now rate-controlled - continue apixaban and metoprolol succinate CKD3 - monitor creatinine carefully with dialysis COPD not in acute exacerbation - continue home inhalers mood disorder - duloxetine DM2 - hold MTF, continue correction-dose lispro VTE ppx - Eliquis dispo - PT recommend short-term rehab Quality Stroke Does the patient have a stroke diagnosis?: No VTE Prior VTE?: No VTE Risk Level:: Medical - moderate - high VTE Device Contraindication: Treatment Not Indicated VTE Drug Contraindication: N/A - Med Ordered
[2024-12-25] MEDS: Potassium Chloride ER 20 MEQ TAB.ER.PRT PO (14:59)
[2024-12-25 16:00] LABS: Glucose, Whole Blood 171 mg/dL (60-115)
[2024-12-25] MEDS: bisacodyL 5 MG TABLET.DR 10 MG PO (20:12)
[2024-12-25] MEDS: traZODone HCL 100 MG TABLET PO (20:12)
[2024-12-25] MEDS: Azithromycin 500 MG in 0.9 % Sodium Chloride 250 ML 125 MG IV (20:16)
[2024-12-25] MEDS: cefTRIAXone sodium 1 GM VIAL IVPUSH (20:17)
[2024-12-25 20:20] LABS: Glucose, Whole Blood 180 mg/dL (60-115)
[2024-12-26] VITALS (7 sets, daily range): BP systolic 114–161; BP diastolic 67–78; PULSE 76–97; RESP 14–20; TEMP 36.1–36.8; O2SAT 95–99
[2024-12-26 07:16] LABS: Anion Gap 14 (12-20); Blood Urea Nitrogen 26 mg/dL (9-16); Calcium 8.6 mg/dL (8.4-10.2); Carbon Dioxide 24 mmol/L (22-29); Chloride 107 mmol/L (96-108); Creatinine Clr Calc Pharmacy 46.6; Estimated Glomerular Filt Rate 52; Glucose Random 149 mg/dL (60-115); Potassium 3.2 mmol/L (3.3-5.1); Sodium 142 mmol/L (135-145)
[2024-12-26 07:20] LABS: B Type Natriuretic Peptide 1087 pg/mL (<100)
[2024-12-26 07:24] LABS: Glucose, Whole Blood 148 mg/dL (60-115)
[2024-12-26] MEDS: Fluticasone/Vilanterol 100/25 BLST.W.DEV 1 PUFF INHALE (08:01)
[2024-12-26] MEDS: Docusate Sodium 100 MG CAPSULE PO (09:08)
[2024-12-26] MEDS: Empagliflozin 10 MG TABLET PO (09:08)
[2024-12-26] MEDS: Sacubitril/Valsartan 24/26 1 TAB TABLET PO ×2 (09:08→21:20)
[2024-12-26] MEDS: Metoprolol Succinate ER 50 MG TAB.ER.24H PO (09:08)
[2024-12-26] MEDS: Atorvastatin Calcium 80 MG TABLET PO (09:08)
[2024-12-26] MEDS: Clopidogrel Bisulfate 75 MG TABLET PO (09:08)
[2024-12-26] MEDS: Ferrous Sulfate 324 MG TABLET.DR PO (09:08)
[2024-12-26] MEDS: Apixaban 5 MG TABLET PO ×2 (09:09→21:20)
[2024-12-26] MEDS: Mirabegron 50 MG TAB.ER.24H PO (09:09)
[2024-12-26] MEDS: Psyllium seed 3.7 GM PACKET PO ×2 (09:09→21:21)
[2024-12-26] MEDS: Famotidine 20 MG TABLET PO ×2 (09:09→21:20)
[2024-12-26] MEDS: DULoxetine HCl 30 MG CAPSULE.DR PO (09:09)
[2024-12-26] MEDS: 0.9 % Sodium Chloride Flush 3 ML SYRINGE IVFLUSH ×3 (09:09→21:24)
[2024-12-26] MEDS: cefuroxime axetiL 500 MG TABLET PO ×2 (09:09→21:20)
[2024-12-26] MEDS: Furosemide 40 MG/4 ML VIAL IVPUSH (09:10)
[2024-12-26 11:33] LABS: Glucose, Whole Blood 240 mg/dL (60-115)
--- NOTE | 2024-12-26 12:58 | MHC.CM.PN ---
CM MET W/ PATIENT, UPPER TIER ASSISTING. DAUGHTER ALSO AT BEDSIDE. PATIENT IS NOW AGREEABLE TO STR. NO FACILITY PREFERENCES. REFERRALS SENT VIA [facility].
[2024-12-26] MEDS: Insulin Lispro 100 UNIT/ML 3 ML VIAL SUBCUT ×3 (13:14→21:20)
--- NOTE | 2024-12-26 15:33 | HO.PM.IMPN ---
Subjective Subjective Date of Service: 12/26/24 Interval History: History obtained via shipping packer, denies shortness of breath, intermittent cough, no fevers, no chills, no acute events overnight, initially declined rehab later agreed. Review of Systems All other system reviewed and are negative Physical Exam Vital Signs: Vital Signs: Last Vital Signs Temp 98.2 F 12/26/24 11:21 Pulse 80 12/26/24 11:21 Resp 16 12/26/24 11:21 BP 114/78 12/26/24 11:21 Pulse Ox 96 12/26/24 11:21 O2 Del Method Room Air 12/26/24 11:21 O2 Flow Rate 97 12/23/24 01:00 BMI result Body Mass Index 37.4 Const: Other: Gen: in no acute distress HEENT: sclera anicteric, moist mucus membranes Neck: supple, no JVD Lungs: diminished, no respiratory distress Heart: irregular, no murmurs Abd: soft, non-tender, non-distended Ext: no leg edema Skin: warm/well-perfused Neuro: alert and oriented x3, no focal findings Psych: appropriate affect Objective Data Active Medications Acetaminophen (Acetaminophen 325 Mg Tablet) 650 mg PO Q6H PRN PRN Reason: Pain, Mild 1-3,fever,headache Last Admin: 12/23/24 22:23 Dose: 650 mg Documented By: SONIA Albuterol Sulfate (Albuterol Sulfate 90 Mcg 8 Gm Inhaler) 2 puff INHALE Q4H PRN PRN Reason: Wheezing Albuterol Sulfate (Albuterol Sulfate (0.083%) 2.5 Mg/3 Ml Vial.Neb) 2.5 mg INHALE Q6H PRN PRN Reason: Wheezing Apixaban (Apixaban 5 Mg Tablet) 5 mg PO BID [facility] Last Admin: 12/26/24 09:09 Dose: 5 mg Documented By: RONALDO Atorvastatin Calcium (Atorvastatin Calcium 80 Mg Tablet) 80 mg PO DAILY [facility] Last Admin: 12/26/24 09:08 Dose: 80 mg Documented By: RONALDO Azithromycin (Azithromycin 500 Mg Tablet) 500 mg PO Q24H [facility] Bisacodyl (Bisacodyl 5 Mg Tablet.) 10 mg PO BEDTIME [facility] Last Admin: 12/25/24 20:12 Dose: 10 mg Documented By: YU Calcium Carbonate (Calcium Carbonate 750 Mg Tab.Chew) 750 mg PO Q4H PRN PRN Reason: Heartburn Cefuroxime Axetil (Cefuroxime Axetil 500 Mg Tablet) 500 mg PO Q12H [facility] Last Admin: 12/26/24 09:09 Dose: 500 mg Documented By: RONALDO Clopidogrel Bisulfate (Clopidogrel Bisulfate 75 Mg Tablet) 75 mg PO DAILY [facility] Last Admin: 12/26/24 09:08 Dose: 75 mg Documented By: RONALDO Dextrose (Dextrose 50 % 25 Gm/50 Ml Syringe) 25 gm IVPUSH Q15M PRN; Protocol PRN Reason: per Hypoglycemia Standing Ord. Docusate Sodium (Docusate Sodium 100 Mg Capsule) 100 mg PO DAILY [facility] Last Admin: 12/26/24 09:08 Dose: 100 mg Documented By: RONALDO Duloxetine HCl (Duloxetine Hcl 30 Mg Capsule.) 30 mg PO DAILY [facility] Last Admin: 12/26/24 09:09 Dose: 30 mg Documented By: RONALDO Empagliflozin (Empagliflozin 10 Mg Tablet) 10 mg PO DAILY [facility] Last Admin: 12/26/24 09:08 Dose: 10 mg Documented By: RONALDO Famotidine (Famotidine 20 Mg Tablet) 20 mg PO BID [facility] Last Admin: 12/26/24 09:09 Dose: 20 mg Documented By: RONALDO Ferrous Sulfate (Ferrous Sulfate 324 Mg Tablet.) 324 mg PO DAILY [facility] Last Admin: 12/26/24 09:08 Dose: 324 mg Documented By: RONALDO Fluticasone/Vilanterol (Fluticasone/Vilanterol 100/25 Blst.W.Dev) 1 puff INHALE RDAILY [facility] Last Admin: 12/26/24 08:01 Dose: 1 puff Documented By: OMAR Furosemide (Furosemide 40 Mg/4 Ml Vial) 40 mg IVPUSH DAILY [facility]; Protocol Last Admin: 12/26/24 09:10 Dose: 40 mg Documented By: RONALDO Glucose (Glucose Gel 15 Gm Gel..Gram.) 15 gm PO Q15M PRN; Protocol PRN Reason: per Hypoglycemia Standing Ord. Guaifenesin/Dextromethorphan (Guaifenesin Dm 100/10/5 Ml 5 Ml Syrup) 10 ml PO Q4H PRN PRN Reason: cough or congestion Last Admin: 12/25/24 08:28 Dose: 10 ml Documented By: PHAJOO Insulin Human Lispro (Insulin Lispro 100 Unit/Ml 3 Ml Vial) 0 unit SUBCUT QIDACHS [facility]; Protocol Last Admin: 12/26/24 13:14 Dose: 4 unit Documented By: RONALDO Magnesium Hydroxide (Milk Of Magnesia 30 Ml Oral.Susp) 30 ml PO DAILY PRN PRN Reason: Constipation Melatonin (Melatonin 3 Mg Tablet) 6 mg PO BEDTIME PRN PRN Reason: Insomnia Last Admin: 12/24/24 21:10 Dose: 6 mg Documented By: YU Comments: requested for sleep Metoprolol Succinate (Metoprolol Succinate Er 50 Mg Tab.Er.24h) 50 mg PO DAILY [facility]; Protocol Last Admin: 12/26/24 09:08 Dose: 50 mg Documented By: RONALDO Mirabegron (Mirabegron 50 Mg Tab.Er.24h) 50 mg PO DAILY [facility] Last Admin: 12/26/24 09:09 Dose: 50 mg Documented By: RONALDO Ondansetron HCl (Ondansetron Hcl 4 Mg/2 Ml Vial) 4 mg IVPUSH Q8H PRN PRN Reason: Nausea and Vomiting Psyllium Hydrophilic Mucilloid (Psyllium Seed 3.7 Gm Packet) 3.7 gm PO BID [facility] Last Admin: 12/26/24 09:09 Dose: 3.7 gm Documented By: RONALDO Sacubitril/Valsartan (Sacubitril/Valsartan 1 Tab Tablet) 1 tab PO BID [facility]; Protocol Last Admin: 12/26/24 09:08 Dose: 1 tab Documented By: RONALDO Sodium Chloride (0.9 % Sodium Chloride Flush 3 Ml Syringe) 3 ml IVFLUSH QSHIFT [facility] Last Admin: 12/26/24 09:09 Dose: 3 ml Documented By: RONALDO Trazodone HCl (Trazodone Hcl 100 Mg Tablet) 100 mg PO BEDTIME [facility] Last Admin: 12/25/24 20:12 Dose: 100 mg Documented By: YU Labs 12/24/24 07:16 12/26/24 06:31 Labs: Laboratory Results - last 24 hr 12/25/24 12/25/24 12/26/24 15:52 20:12 06:31 Anion Gap 14 Estim Creat Clear Calc 46.6 Estimated GFR 52 POC Glucose 171 H 180 H Random Glucose 149 H Calcium 8.6 B-Natriuretic Peptide 1087 H 12/26/24 12/26/24 07:13 11:25 Anion Gap Estim Creat Clear Calc Estimated GFR POC Glucose 148 H 240 H Random Glucose Calcium B-Natriuretic Peptide Assessment and Plan (1) Decompensated heart failure: Status: Acute (2) Acute myocardial infarction: Status: Acute (3) Pneumonia: Status: Acute Plan 79yo F with AF on apixaban, HFpEF, CAD s/p PCI, mod-sev MR, COPD not on home O2, HTN, CKD3, mood disorder, OAB, DM2 presenting with dyspnea, admitted for CHF/NSTEMI, sepsis from PNA sepsis due to multifocal PNA - feeling better , WBC normalized, no shortness of breath , no further blood-tinged sputum - 12/23- ceftriaxone + azithromycin, blood cultures negative times 48 hours, urinary antigens for Legionella and pneumococcus pending , trend PCT 12.66 on 12/24 - seen by speech therapy they recommend regular diet with clear liquids, no further recommendation and no concern for aspiration - transition to by mouth antibiotics azithromycin and Ceftin acute HFrEF - TTE 12/23/24: 1. Severely reduced LV ejection fraction of 25-30% 2. Severe biatrial enlargement 3. Mild mitral regurgitation 4. Normal measured RV systolic pressure 5. No pericardial effusion - appears euvolemic, asymptomatic - DC IV furosemide , fluid balance positive, monitor I/O + lytes + BNP improved from 2654 to 1087, baseline around 350 - continue metoprolol succinate, losartan changed to Enstresto, continue empagliflozin started on 12/24, resume home dose of Lasix. History of noncompliance NSTEMI - status post 48 hours of therapeutic enoxaparin , continue clopidogrel, atorvastatin, metoprolol succinate - Cardiology recommend outpatient ischemic workup acute hypoxic respiratory failure - resolved chronic AF - was in RVR then got IV diltiazem in ED, now rate-controlled - continue apixaban and metoprolol succinate Acute hypokalemia likely due to diuresis will replace and follow labs CKD3 - monitor creatinine COPD not in acute exacerbation - continue home inhalers mood disorder - duloxetine DM2 - hold MTF, continue correction-dose lispro VTE ppx - Eliquis dispo - PT recommend short-term rehab, CM arranging for safe disposition Quality Stroke Does the patient have a stroke diagnosis?: No VTE Prior VTE?: No VTE Risk Level:: Medical - moderate - high VTE Device Contraindication: Treatment Not Indicated VTE Drug Contraindication: N/A - Med Ordered
[2024-12-26 16:34] LABS: Glucose, Whole Blood 271 mg/dL (60-115)
[2024-12-26] MEDS: Potassium Chloride ER 20 MEQ TAB.ER.PRT 40 MEQ PO (16:52)
[2024-12-26 20:56] LABS: Glucose, Whole Blood 153 mg/dL (60-115)
[2024-12-26] MEDS: Azithromycin 500 MG TABLET PO (21:20)
[2024-12-26] MEDS: traZODone HCL 100 MG TABLET PO (21:20)
[2024-12-26] MEDS: bisacodyL 5 MG TABLET.DR 10 MG PO (21:20)
[2024-12-27] VITALS (7 sets, daily range): BP systolic 104–140; BP diastolic 56–74; PULSE 60–95; RESP 16–19; TEMP 36.2–36.7; O2SAT 93–97
[2024-12-27 06:48] LABS: Anion Gap 13 (12-20); Blood Urea Nitrogen 24 mg/dL (9-16); Calcium 8.6 mg/dL (8.4-10.2); Carbon Dioxide 22 mmol/L (22-29); Chloride 108 mmol/L (96-108); Creatinine Clr Calc Pharmacy 45.6; Estimated Glomerular Filt Rate 51; Glucose Random 164 mg/dL (60-115); Potassium 3.6 mmol/L (3.3-5.1); Sodium 139 mmol/L (135-145)
[2024-12-27 07:11] LABS: Glucose, Whole Blood 143 mg/dL (60-115)
[2024-12-27] MEDS: Empagliflozin 10 MG TABLET PO (08:14)
[2024-12-27] MEDS: cefuroxime axetiL 500 MG TABLET PO ×2 (08:14→20:15)
[2024-12-27] MEDS: Ferrous Sulfate 324 MG TABLET.DR PO (08:14)
[2024-12-27] MEDS: Furosemide 40 MG TABLET PO (08:14)
[2024-12-27] MEDS: Docusate Sodium 100 MG CAPSULE PO (08:14)
[2024-12-27] MEDS: Clopidogrel Bisulfate 75 MG TABLET PO (08:14)
[2024-12-27] MEDS: Apixaban 5 MG TABLET PO ×2 (08:14→20:15)
[2024-12-27] MEDS: Famotidine 20 MG TABLET PO ×2 (08:14→20:15)
[2024-12-27] MEDS: Sacubitril/Valsartan 24/26 1 TAB TABLET PO ×2 (08:14→20:15)
[2024-12-27] MEDS: Metoprolol Succinate ER 50 MG TAB.ER.24H PO (08:14)
[2024-12-27] MEDS: Mirabegron 50 MG TAB.ER.24H PO (08:14)
[2024-12-27] MEDS: Atorvastatin Calcium 80 MG TABLET PO (08:15)
[2024-12-27] MEDS: 0.9 % Sodium Chloride Flush 3 ML SYRINGE IVFLUSH ×2 (08:15→17:40)
[2024-12-27] MEDS: DULoxetine HCl 30 MG CAPSULE.DR PO (08:15)
[2024-12-27] MEDS: Psyllium seed 3.7 GM PACKET PO ×2 (08:15→20:15)
[2024-12-27 08:47] LABS: B Type Natriuretic Peptide 608 pg/mL (<100)
[2024-12-27 08:50] LABS: Procalcitonin 1.77 ng/mL
[2024-12-27] MEDS: Fluticasone/Vilanterol 100/25 BLST.W.DEV 1 PUFF INHALE (09:13)
[2024-12-27 11:09] LABS: Glucose, Whole Blood 250 mg/dL (60-115)
[2024-12-27] MEDS: Insulin Lispro 100 UNIT/ML 3 ML VIAL SUBCUT ×3 (11:59→21:55)
--- NOTE | 2024-12-27 13:46 | P.CDIM_ITS ---
PROVIDER RESPONSE TEXT: To clarify, the appropriate diagnosis supported by the clinical indicators: Obesity Due to excess calories QUERY TEXT: PHYSICIAN'S DOCUMENTATION REQUEST Date of Query: 12/27/2024 11:40 AM EST Patient Name: Roseanna Hurt Admit Date: 12/23/2024 Dear Heber Ellis MD, A review of the medical record indicates additional documentation may be needed. Please review below and update the documentation accordingly. Clinical Indicators: Height: 5ft 2in Weight: 92.7kg BMI: 37.4 Other Clinical Notes Supporting Significance of the BMI: Nursing notes Height and Weight 2/15 - Obesi ty Class II If possible, please provide an associated diagnosis related to the abnormal BMI, such as: Obesity Due to excess calories Obesity Drug induced Obesity Due to other cause Specify the other cause Other (explain) Clinically unable to determine (explain) Thank you, Raina Sanchez, CCS, CDIS Use of terms such as suspected, likely, concern for, or probable (associated with a specific diagnosi s that is being evaluated, monitored, or treated as if it exists) are acceptable and can be coded in the inpatient se tting, when documented at the time of discharge. Please use your independent medical judgment in providing your response. THIS QUERY IS PART OF THE PERMANENT MEDICAL RECORD
--- NOTE | 2024-12-27 14:24 | MHC.CM.PN ---
CM met with pt and her dtr to confirm that the DCP is for her to go to [facility] for STR. Pt would prefer to go home, but said she will go to STR. Awaiting ins. auth. IMM in [place] delivered to pt. today.
--- NOTE | 2024-12-27 15:59 | HO.PM.IMPN ---
Subjective Subjective Date of Service: 12/27/24 Interval History: Offers no acute complaints, in the morning demanding to go home, later agreed to go to rehab, daughter at bedside concern about patient's memory, that she is noted to be forgetful for some time has no diagnosis of dementia. No acute events overnight. Review of Systems All other system reviewed and are negative Physical Exam Vital Signs: Vital Signs: Last Vital Signs Temp 97.1 F 12/27/24 11:29 Pulse 71 12/27/24 11:29 Resp 16 12/27/24 11:29 BP 105/64 12/27/24 11:29 Pulse Ox 96 12/27/24 11:29 O2 Del Method Room Air 12/27/24 11:29 O2 Flow Rate 97 12/23/24 01:00 BMI result Body Mass Index 37.4 Const: Other: Gen: in no acute distress HEENT: sclera anicteric, moist mucus membranes Neck: supple, no JVD Lungs: diminished, no respiratory distress Heart: irregular, no murmurs Abd: soft, non-tender, non-distended Ext: no leg edema Skin: warm/well-perfused Neuro: alert and oriented x3, no focal findings Psych: appropriate affect Objective Data Active Medications Acetaminophen (Acetaminophen 325 Mg Tablet) 650 mg PO Q6H PRN PRN Reason: Pain, Mild 1-3,fever,headache Last Admin: 12/23/24 22:23 Dose: 650 mg Documented By: SONIA Albuterol Sulfate (Albuterol Sulfate 90 Mcg 8 Gm Inhaler) 2 puff INHALE Q4H PRN PRN Reason: Wheezing Albuterol Sulfate (Albuterol Sulfate (0.083%) 2.5 Mg/3 Ml Vial.Neb) 2.5 mg INHALE Q6H PRN PRN Reason: Wheezing Apixaban (Apixaban 5 Mg Tablet) 5 mg PO BID [facility] Last Admin: 12/27/24 08:14 Dose: 5 mg Documented By: SYDNEE Atorvastatin Calcium (Atorvastatin Calcium 80 Mg Tablet) 80 mg PO DAILY [facility] Last Admin: 12/27/24 08:15 Dose: 80 mg Documented By: SYDNEE Azithromycin (Azithromycin 500 Mg Tablet) 500 mg PO Q24H [facility] Last Admin: 12/26/24 21:20 Dose: 500 mg Documented By: ANTOIC Bisacodyl (Bisacodyl 5 Mg Tablet.) 10 mg PO BEDTIME [facility] Last Admin: 12/26/24 21:20 Dose: 10 mg Documented By: ANTOIC Calcium Carbonate (Calcium Carbonate 750 Mg Tab.Chew) 750 mg PO Q4H PRN PRN Reason: Heartburn Cefuroxime Axetil (Cefuroxime Axetil 500 Mg Tablet) 500 mg PO Q12H [facility] Last Admin: 12/27/24 08:14 Dose: 500 mg Documented By: SYDNEE Clopidogrel Bisulfate (Clopidogrel Bisulfate 75 Mg Tablet) 75 mg PO DAILY [facility] Last Admin: 12/27/24 08:14 Dose: 75 mg Documented By: SYDNEE Dextrose (Dextrose 50 % 25 Gm/50 Ml Syringe) 25 gm IVPUSH Q15M PRN; Protocol PRN Reason: per Hypoglycemia Standing Ord. Docusate Sodium (Docusate Sodium 100 Mg Capsule) 100 mg PO DAILY [facility] Last Admin: 12/27/24 08:14 Dose: 100 mg Documented By: SYDNEE Duloxetine HCl (Duloxetine Hcl 30 Mg Capsule.) 30 mg PO DAILY [facility] Last Admin: 12/27/24 08:15 Dose: 30 mg Documented By: SYDNEE Empagliflozin (Empagliflozin 10 Mg Tablet) 10 mg PO DAILY [facility] Last Admin: 12/27/24 08:14 Dose: 10 mg Documented By: SYDNEE Famotidine (Famotidine 20 Mg Tablet) 20 mg PO BID [facility] Last Admin: 12/27/24 08:14 Dose: 20 mg Documented By: SYDNEE Ferrous Sulfate (Ferrous Sulfate 324 Mg Tablet.) 324 mg PO DAILY [facility] Last Admin: 12/27/24 08:14 Dose: 324 mg Documented By: SYDNEE Fluticasone/Vilanterol (Fluticasone/Vilanterol 100/25 Blst.W.Dev) 1 puff INHALE RDAILY [facility] Last Admin: 12/27/24 09:13 Dose: 1 puff Documented By: LEE Furosemide (Furosemide 40 Mg Tablet) 40 mg PO DAILY [facility]; Protocol Last Admin: 12/27/24 08:14 Dose: 40 mg Documented By: SYDNEE Glucose (Glucose Gel 15 Gm Gel..Gram.) 15 gm PO Q15M PRN; Protocol PRN Reason: per Hypoglycemia Standing Ord. Guaifenesin/Dextromethorphan (Guaifenesin Dm 100/10/5 Ml 5 Ml Syrup) 10 ml PO Q4H PRN PRN Reason: cough or congestion Last Admin: 12/25/24 08:28 Dose: 10 ml Documented By: DURGA Insulin Human Lispro (Insulin Lispro 100 Unit/Ml 3 Ml Vial) 0 unit SUBCUT QIDACHS [facility]; Protocol Last Admin: 12/27/24 11:59 Dose: 4 unit Documented By: SYDNEE Magnesium Hydroxide (Milk Of Magnesia 30 Ml Oral.Susp) 30 ml PO DAILY PRN PRN Reason: Constipation Melatonin (Melatonin 3 Mg Tablet) 6 mg PO BEDTIME PRN PRN Reason: Insomnia Last Admin: 12/24/24 21:10 Dose: 6 mg Documented By: YU Comments: requested for sleep Metoprolol Succinate (Metoprolol Succinate Er 50 Mg Tab.Er.24h) 50 mg PO DAILY [facility]; Protocol Last Admin: 12/27/24 08:14 Dose: 50 mg Documented By: SYDNEE Mirabegron (Mirabegron 50 Mg Tab.Er.24h) 50 mg PO DAILY [facility] Last Admin: 12/27/24 08:14 Dose: 50 mg Documented By: SYDNEE Ondansetron HCl (Ondansetron Hcl 4 Mg/2 Ml Vial) 4 mg IVPUSH Q8H PRN PRN Reason: Nausea and Vomiting Psyllium Hydrophilic Mucilloid (Psyllium Seed 3.7 Gm Packet) 3.7 gm PO BID [facility] Last Admin: 12/27/24 08:15 Dose: 3.7 gm Documented By: SYDNEE Sacubitril/Valsartan (Sacubitril/Valsartan 1 Tab Tablet) 1 tab PO BID [facility]; Protocol Last Admin: 12/27/24 08:14 Dose: 1 tab Documented By: SYDNEE Sodium Chloride (0.9 % Sodium Chloride Flush 3 Ml Syringe) 3 ml IVFLUSH QSHIFT [facility] Last Admin: 12/27/24 08:15 Dose: 3 ml Documented By: SYDNEE Trazodone HCl (Trazodone Hcl 100 Mg Tablet) 100 mg PO BEDTIME [facility] Last Admin: 12/26/24 21:20 Dose: 100 mg Documented By: ANTOIC Labs 12/24/24 07:16 12/27/24 06:16 Labs: Laboratory Results - last 24 hr 12/26/24 12/26/24 12/27/24 16:17 20:50 06:16 Hold Purple Top SEE NOTE Anion Gap 13 Estim Creat Clear Calc 45.6 Estimated GFR 51 POC Glucose 271 H 153 H Random Glucose 164 H Calcium 8.6 B-Natriuretic Peptide 608 H Procalcitonin 1.77 12/27/24 12/27/24 07:06 10:59 Hold Purple Top Anion Gap Estim Creat Clear Calc Estimated GFR POC Glucose 143 H 250 H Random Glucose Calcium B-Natriuretic Peptide Procalcitonin Assessment and Plan (1) Decompensated heart failure: Status: Acute (2) Acute myocardial infarction: Status: Acute (3) Pneumonia: Status: Acute (4) Non-ST elevation [place] (NSTEMI): Status: Acute Plan 79yo F with AF on apixaban, HFpEF, CAD s/p PCI, mod-sev MR, COPD not on home O2, HTN, CKD3, mood disorder, OAB, DM2 presenting with dyspnea, admitted for CHF/NSTEMI, sepsis from PNA sepsis due to multifocal PNA - feeling better , WBC normalized, no shortness of breath , no further blood-tinged sputum - 12/23- ceftriaxone + azithromycin, blood cultures negative times 48 hours, urinary antigens for Legionella and pneumococcus pending , trend PCT 12.66 on 12/24 ,repeat 1.77 on 12/27. - seen by speech therapy they recommend regular diet with clear liquids, no further recommendation and no concern for aspiration - on po azithromycin and Ceftin acute HFrEF - TTE 12/23/24: 1. Severely reduced LV ejection fraction of 25-30% 2. Severe biatrial enlargement 3. Mild mitral regurgitation 4. Normal measured RV systolic pressure 5. No pericardial effusion - appears euvolemic, asymptomatic - DC IV furosemide , fluid balance positive, monitor I/O + lytes + BNP improved from 2654 to 1087, baseline around 350 - continue metoprolol succinate, losartan changed to Enstresto, continue empagliflozin started on 12/24, home dose of Lasix. History of noncompliance NSTEMI - status post 48 hours of therapeutic enoxaparin , continue clopidogrel, atorvastatin, metoprolol succinate - Cardiology recommend outpatient ischemic workup acute hypoxic respiratory failure - resolved chronic AF - was in RVR then got IV diltiazem in ED, now rate-controlled - continue apixaban and metoprolol succinate Acute hypokalemia likely due to diuresis repleted. CKD3 - monitor creatinine COPD not in acute exacerbation - continue home inhalers mood disorder - duloxetine Cognitive impairment, recent CT head 10/28/2024 showed diffuse supratentorial chronic small-vessel ischemic changes question vascular dementia. So you consult DM2 - hold MTF, continue correction-dose lispro VTE ppx - Eliquis dispo - PT recommend short-term rehab, CM arranging for safe disposition Quality Stroke Does the patient have a stroke diagnosis?: No VTE Prior VTE?: No VTE Risk Level:: Medical - moderate - high VTE Device Contraindication: Treatment Not Indicated VTE Drug Contraindication: N/A - Med Ordered
[2024-12-27 16:15] LABS: Glucose, Whole Blood 160 mg/dL (60-115)
[2024-12-27 19:13] LABS: Strep Pneumo Ag urine Not Detected (Not Detected)
[2024-12-27] MEDS: bisacodyL 5 MG TABLET.DR 10 MG PO (20:15)
[2024-12-27] MEDS: traZODone HCL 100 MG TABLET PO (20:15)
[2024-12-27] MEDS: Azithromycin 500 MG TABLET PO (20:15)
[2024-12-27 20:53] LABS: Glucose, Whole Blood 206 mg/dL (60-115)
[2024-12-28] MEDS: 0.9 % Sodium Chloride Flush 3 ML SYRINGE IVFLUSH ×2 (00:12→09:22)
[2024-12-28 03:19] VITALS: BP 125/56; PULSE 90; RESP 16; TEMP 36.1; O2SAT 94
[2024-12-28 07:03] VITALS: BP 137/61; PULSE 85; RESP 17; TEMP 36.7; O2SAT 97
[2024-12-28 07:18] LABS: Glucose, Whole Blood 132 mg/dL (60-115)
[2024-12-28] MEDS: Fluticasone/Vilanterol 100/25 BLST.W.DEV 1 PUFF INHALE (08:15)
[2024-12-28 08:16] VITALS: PULSE 85; RESP 17; O2SAT 97
[2024-12-28] MEDS: Docusate Sodium 100 MG CAPSULE PO (09:21)
[2024-12-28] MEDS: cefuroxime axetiL 500 MG TABLET PO (09:21)
[2024-12-28] MEDS: Metoprolol Succinate ER 50 MG TAB.ER.24H PO (09:21)
[2024-12-28] MEDS: Ferrous Sulfate 324 MG TABLET.DR PO (09:21)
[2024-12-28] MEDS: Atorvastatin Calcium 80 MG TABLET PO (09:21)
[2024-12-28] MEDS: Apixaban 5 MG TABLET PO (09:21)
[2024-12-28] MEDS: Clopidogrel Bisulfate 75 MG TABLET PO (09:21)
[2024-12-28] MEDS: Famotidine 20 MG TABLET PO (09:21)
[2024-12-28] MEDS: Mirabegron 50 MG TAB.ER.24H PO (09:21)
[2024-12-28] MEDS: Furosemide 40 MG TABLET PO (09:22)
[2024-12-28] MEDS: Sacubitril/Valsartan 24/26 1 TAB TABLET PO (09:22)
[2024-12-28] MEDS: DULoxetine HCl 30 MG CAPSULE.DR PO (09:22)
[2024-12-28] MEDS: Empagliflozin 10 MG TABLET PO (09:23)
[2024-12-28 11:17] VITALS: BP 97/60; PULSE 86; RESP 18; TEMP 36.3; O2SAT 96
--- NOTE | 2024-12-28 11:18 | MHC.CM.PN ---
Addendum entered by Jewels Jean RN 12/28/24 12:25: CLARIFICATION IMM COMPLETED VIA HOSPITAL LABORATORY TECHNICIAN 12/27/24 W/PRIOR CM. Original Note: IMM 12/28/24, PT MEDICALLY CLEARED FOR DC TO STR AT [facility] AT 2PM VIA [facility] FOR BLS TRANSPORT
--- NOTE | 2024-12-28 11:46 | P.DS_ITS ---
DS: Providers Provider Date of Service: 12/28/24 Date of admission: 12/23/24 00:14 Date of discharge: 12/28/24 Primary care physician: Flor Medina MD Consults: 12/23/24 00:13 Consult to Cardiology Routine Consulting Provider: [facility] Reason for consultation: afib with rvr, nstemi, chf 12/23/24 08:14 Consult to Urology Routine Consulting Provider: [facility] Reason for consultation: nephrolithiasis, mild hydro on imaging DS: Diagnosis Discharge Diagnosis (1) Decompensated heart failure: Status: Acute (2) Acute myocardial infarction: Status: Acute (3) Pneumonia: Status: Acute (4) Non-ST elevation NE (NSTEMI): Status: Acute DS: Summary Hospital Course Hospital Course: History of presenting illness: Date of Service: 12/23/24 Chief Complaint: Dyspnea This is a 79-year-old female with pertinent history of atrial fibrillation on Eliquis, congestive heart failure with preserved ejection fraction, CAD status post stent, moderate to severe MR, COPD not on home oxygen, hypertension, CKD, mood disorder, overactive bladder, jsl-[id number] diabetes mellitus who presents to the emergency department for evaluation of dyspnea. History obtained with the help of commissary assistant. Patient states she has been feeling unwell and has been lying in bed for the last 2 days. Daughter reports productive cough that has been ongoing for the last 2 days. Patient did not take any of her home medications for over 48 hours now. Patient's daughter states that patient has been noncompliant with the medications. Upon persistent questioning, patient reports dyspnea which is worse when lying down. Also has fevers. Does endorse midsternal chest discomfort. No palpitations, abdominal pain, changes in urinary or bowel habits. In the emergency department, patient was found to be in fluid overload and BNP found to be elevated. Patient given IV Lasix. Also found to have right-sided pneumonia on imaging with leukocytosis and fever. Given empiric IV ceftriaxone and Rocephin in the ER. Troponin found to be significantly elevated and patient was initiated on IV heparin. Hospital course: 79yo F with AF on apixaban, HFpEF, CAD s/p PCI, mod-sev MR, COPD not on home O2, HTN, CKD3, mood disorder, OAB, DM2 presented with dyspnea, admitted for CHF/NSTEMI, sepsis from PNA. Sepsis due to multifocal PNA, admitted to medical floor treated with intravenous ceftriaxone and azithromycin blood cultures were negative,PCT improved from 12.66 on 12/24 ,to 1.77 on 12/27, WBC normalized, urinary strep pneumonie antigen is not detected, urinary Legionella antigen pending, patient seen by speech therapy and tolerating regular and clear liquid diet, patient finished course of antibiotic, hypoxia resolved. Acute HFrEF with hypoxic respiratory failure treated with intravenous Lasix, BNP improved renal function and electrolytes are stable patient transitioned back to home dose of Lasix, was seen by bus and trolley inspecting dispatcher, losartan changed to Entresto, Jardiance 10 mg started, shortness of breath and hypoxia resolved. Symptoms will likely due to noncompliance with home medications. - TTE 12/23/24: 1. Severely reduced LV ejection fraction of 25-30% 2. Severe biatrial enlargement 3. Mild mitral regurgitation 4. Normal measured RV systolic pressure 5. No pericardial effusion NSTEMI - status post 48 hours of therapeutic enoxaparin , continue clopidogrel, atorvastatin, metoprolol succinate, cardiology recommend outpatient ischemic workup Chronic AF- was in RVR then got IV diltiazem in ED, now rate-controlled, continue apixaban and metoprolol succinate. Acute hypokalemia likely due to diuresis repleted. CKD3 - stable COPD not in acute exacerbation continue home inhalers mood disorder continue duloxetine Cognitive impairment, recent CT head 10/28/2024 showed diffuse supratentorial chronic small-vessel ischemic changes question vascular dementia. DM2 continue metformin and diabetic diet. Time Attestation Discharge Coordination Time (in mins): 40 Quality: Safe Use of Opioids Does Pt have an Active Cancer Diagnosis on the Problem List?: No Quality: Stroke Does the patient have a stroke diagnosis?: No Physical Exam Vital Signs: Vital Signs: Last Vital Signs Temp 97.4 F 12/28/24 11:17 Pulse 86 12/28/24 11:17 Resp 18 12/28/24 11:17 BP 97/60 12/28/24 11:17 Pulse Ox 96 12/28/24 11:17 O2 Del Method Room Air 12/28/24 11:17 O2 Flow Rate 97 12/23/24 01:00 BMI result Body Mass Index 37.4 Const: Other: Gen: in no acute distress HEENT: sclera anicteric, moist mucus membranes Neck: supple, no JVD Lungs: diminished, no respiratory distress Heart: irregular, no murmurs Abd: soft, non-tender, non-distended Ext: no leg edema Skin: warm/well-perfused Neuro: alert and oriented x3, no focal findings Psych: appropriate affect DS: Data Data Completed and Pending Completed studies during hospitalization [Text1]: Procedures Assistance with Respiratory Ventilation, Less than 24 Consecutive Hours, Continuous Positive Airway Pressure (04/09/23) Dilation of Bilateral Ureters with Intraluminal Device, Via Natural or Artificial Opening Endoscopic (03/02/23) Dilation of Right Ureter with Intraluminal Device, Via Natural or Artificial Opening Endoscopic (05/25/23) Fluoroscopy of Kidneys, Ureters and Bladder (03/02/23) Fluoroscopy of Right Kidney, Ureter and Bladder (05/25/23) Removal of Intraluminal Device from Bladder, Via Natural or Artificial Opening Endoscopic (12/19/22) Labs on day of discharge: Laboratory Results - last 24 hr 12/24/24 12/27/24 12/27/24 13:00 16:06 20:34 POC Glucose 160 H 206 H Ur Strep pneumoniae Ag Not Detected 12/28/24 07:02 POC Glucose 132 H Ur Strep pneumoniae Ag Discharge Plan Discharge Anticipated Discharge Date/Time: 12/28/24 11:37 Patient Disposition: Xfer SNF Discharge Diagnosis: Sepsis due to multifocal pneumonia Acute heart failure with reduced EF Non ST-elevation NE Acute hypoxic respiratory failure Referrals: [facility] [Outside] - 1 Day (SHORT TERM REHAB) Physician,Unknown J [Physician] - 1 Week Discharge Medications: New Jardiance 10 mg Tablet 10 mg PO DAILY Qty: 30 0RF sacubitril-valsartan [Entresto] 24-26 mg Tablet 1 tab PO BID Qty: 180 0RF Protocol: Hold for SBP< HOLD for SBP < : 90 Continued famotidine 20 mg tablet 20 mg PO BID Qty: 180 2RF furosemide 40 mg tablet 40 mg PO DAILY Qty: 90 3RF fluticasone propion-salmeterol [Advair Diskus] 250-50 mcg/dose blister with device 1 puff INHALATION BID albuterol sulfate 2.5 mg /3 mL (0.083 %) solution for nebulization 2.5 mg inhalation Q6H PRN (Reason: Wheezing) (DME) blood-glucose meter [[employer]Touch Verio Flex meter] Mis MISCELLANEOUS DIRECTED (DME) OneTouch Verio test strips Strip MISCELLANEOUS BID (DME) lancets [OneTouch Delica Plus Lancet] 33 [place] [facility] [place] Eliquis 5 mg tablet 5 mg PO BID Qty: 60 0RF acetaminophen 325 mg tablet 650 mg PO Q6H PRN (Reason: Moderate Pain (Scale Score 5-6)) cetirizine 10 mg Tablet 10 mg PO DAILY PRN (Reason: allergies) pyridoxine (vitamin B6) 100 mg Tablet 100 mg PO DAILY simethicone 80 mg Tablet,Chewable 80 mg PO QID PRN (Reason: Indigestion) calcium polycarbophil [Fiber-Lax] 625 mg tablet 625 mg PO DAILY docusate sodium [Stool Softener] 100 mg capsule 100 mg PO DAILY mirabegron [Myrbetriq] 50 mg tablet extended release 24 hr 50 mg PO DAILY dextromethorphan-guaifenesin [Josselyn-Tussin DM] 10-100 mg/5 mL Liquid 10 ml PO Q4H PRN (Reason: cough or congestion) diclofenac sodium 1 % Gel 1 g TOPICAL TID PRN (Reason: Back Pain) Rx Instructions: apply to single elbow, wrist or hand; for hand includes palm/fingers/back of hand cholecalciferol (vitamin D3) [Vitamin D3] 50 mcg (2,000 unit) Capsule 50 mcg PO DAILY Reguloid (psyllium husk) 3 gram/5.4 gram Powder 1 tsp PO BID Rx Instructions: mix into at least 4 oz water or juice before administering metformin 850 mg tablet 850 mg PO DAILY atorvastatin 80 mg tablet 80 mg PO DAILY albuterol sulfate [Ventolin HFA] 90 mcg/actuation HFA aerosol inhaler 2 puff inhalation Q4H PRN (Reason: Wheezing) clopidogrel 75 mg tablet 75 mg PO DAILY metoprolol succinate [Toprol XL] 50 mg tablet extended release 24 hr 50 mg PO DAILY duloxetine 30 mg capsule,delayed release(DR/EC) 30 mg PO DAILY trazodone 100 mg tablet 100 mg PO BEDTIME calcium citrate-vitamin D3 315 mg-6.25 mcg (250 unit) tablet 1 tab PO BID bisacodyl [Dulcolax (bisacodyl)] 5 mg tablet,delayed release (DR/EC) 10 mg PO BEDTIME Qty: 180 4RF ferrous gluconate 324 mg (38 mg iron) tablet 324 mg PO DAILY (DME) blood pressure test kit-large Kit See Rx Instructions .ROUTE BID Qty: 1 Rx Instructions: As directed Discontinued losartan 25 mg tablet 25 mg PO DAILY Qty: 90 3RF Discharge Orders: Discharge Order (Routine); Ordered 12/28/24 Ordered By: Heber Ellis Diet: Diabetic diet Activity on Discharge: As tolerated Stand Alone Forms: Patient Portal Discharge page Print Language: Urdu Care Plan Goals: Sepsis due to multifocal pneumonia finished course of antibiotic Acute heart failure, take Entresto 1 tablet twice daily, take Jardiance 10 mg daily, discontinue losartan Non ST-elevation NE recommend to continue Plavix, Lipitor, metoprolol and outpatient follow-up with Cardiology for ischemic workup Strongly recommend compliance with home medication. Health Concerns: Diabetes mellitus CHF Plan of Treatment: Outpatient follow-up with primary care physician Outpatient follow-up with bus and trolley inspecting dispatcher Dr. Cadena/ Dr. Blanchard Assessment: As above
[2024-12-28] MEDS: Insulin Lispro 100 UNIT/ML 3 ML VIAL SUBCUT (12:30)
[2024-12-28 15:39] LABS: Glucose, Whole Blood 231 mg/dL (60-115)
[2025-01-02 13:02] LABS: Legionella Ag Urine NOT DETECTED
== END 2024-12-28 14:11 | disposition skilled nursing facility (03) | DRG 193 ==
LOC: HO.ED 12-23 00:29 → HO.EDOVER 12-23 00:34 → HO.IMC 12-23 16:57
PROVIDERS: Family Medicine; Admitting Provider Student in an Organized Health Care Education/Training Program; Emergency Provider Emergency Medicine; PCP Student in an Organized Health Care Education/Training Program; Visit Provider Hospitalist
DX: J18.9 Pneumonia, unspecified organism (principal); I21.4 Non-ST elevation (NSTEMI) myocardial infarction; I50.33 Acute on chronic diastolic (congestive) heart failure; J96.01 Acute respiratory failure with hypoxia; I13.0 Hypertensive heart and chronic kidney disease with heart failure and stage 1 through stage 4 chronic kidney disease, or unspecified chronic kidney disease; J44.0 Chronic obstructive pulmonary disease with (acute) lower respiratory infection; E87.21 Acute metabolic acidosis; I42.9 Cardiomyopathy, unspecified; I48.19 Other persistent atrial fibrillation; N13.2 Hydronephrosis with renal and ureteral calculous obstruction; N18.30 Chronic kidney disease, stage 3 unspecified; E11.22 Type 2 diabetes mellitus with diabetic chronic kidney disease; E66.09 Other obesity due to excess calories; Z20.822 Contact with and (suspected) exposure to COVID-19; I34.0 Nonrheumatic mitral (valve) insufficiency; F39 Unspecified mood [affective] disorder; I25.10 Atherosclerotic heart disease of native coronary artery without angina pectoris; Z95.5 Presence of coronary angioplasty implant and graft; N32.81 Overactive bladder; Z68.37 Body mass index [BMI] 37.0-37.9, adult; Z79.01 Long term (current) use of anticoagulants; Z79.02 Long term (current) use of antithrombotics/antiplatelets; Z79.51 Long term (current) use of inhaled steroids; Z79.84 Long term (current) use of oral hypoglycemic drugs; Z79.899 Other long term (current) drug therapy
CPT/HCPCS: 0241U; 36415; 36600; 71045; 71250; 74176; 80048; 80076; 80307; 81001; 82272; 82803; 82947; 83605; 83690; 83735; 83880; 84145; 84484; 85007; 85025; 85027; 85610; 85730; 87040; 87449; 87899; 92610; 93005; 93306; 94640; 94660; 97116; 97161; 97530; 99285; C1758; J0456; J0696; J1644; J1650; J1940; J2060; J2270; Q9957

== ENCOUNTER → 2024-12-22 21:19 | Outpatient (BNV) | payer OTHER, SELFPAY | PROVIDERS: Admitting Provider Student in an Organized Health Care Education/Training Program; Emergency Provider Emergency Medicine; Visit Provider Internal Medicine Cardiovascular Disease | DX: I48.91 Unspecified atrial fibrillation (principal) | CPT/HCPCS: 93010 ==

== ENCOUNTER → 2024-12-22 21:20 | Outpatient (BNV) | payer OTHER, SELFPAY | PROVIDERS: Emergency Provider Emergency Medicine; Visit Provider Student in an Organized Health Care Education/Training Program | DX: R06.02 Shortness of breath (principal) | CPT/HCPCS: 71045 ==

== ENCOUNTER 2024-12-23 00:14 | Outpatient (BNV) | payer OTHER, SELFPAY | END 2024-12-23 02:00 | PROVIDERS: Admitting Provider Student in an Organized Health Care Education/Training Program; Emergency Provider Emergency Medicine; Visit Provider Radiology Diagnostic Radiology | DX: R06.00 Dyspnea, unspecified (principal); R11.10 Vomiting, unspecified | CPT/HCPCS: 71250; 74176 ==

== ENCOUNTER → 2024-12-23 00:14 | Outpatient (BNV) | payer OTHER, SELFPAY | PROVIDERS: Admitting Provider Student in an Organized Health Care Education/Training Program; Emergency Provider Emergency Medicine; Visit Provider Internal Medicine Cardiovascular Disease | DX: I21.9 Acute myocardial infarction, unspecified (principal); I50.9 Heart failure, unspecified; I48.19 Other persistent atrial fibrillation | CPT/HCPCS: 99233 ==

== ENCOUNTER → 2024-12-23 00:14 | Outpatient (BNV) | payer OTHER, SELFPAY | PROVIDERS: Admitting Provider Student in an Organized Health Care Education/Training Program; Emergency Provider Emergency Medicine; Visit Provider Urology | DX: N20.0 Calculus of kidney (principal); N13.30 Unspecified hydronephrosis | CPT/HCPCS: 99222 ==

== ENCOUNTER → 2024-12-23 00:14 | Outpatient (BNV) | payer OTHER, SELFPAY | PROVIDERS: Admitting Provider Student in an Organized Health Care Education/Training Program; Emergency Provider Emergency Medicine; Visit Provider Student in an Organized Health Care Education/Training Program | DX: I50.33 Acute on chronic diastolic (congestive) heart failure (principal); J18.9 Pneumonia, unspecified organism; I21.9 Acute myocardial infarction, unspecified | CPT/HCPCS: 99223; 99232; 99239; 99499 ==

== ENCOUNTER 2025-02-20 11:02 | Outpatient (AMB) | payer OTHER, SELFPAY ==
--- NOTE | 2025-02-20 11:13 | A.OFFVIS_ITS ---
Vital Signs 02/20/25 11:16 Height 5 ft 2 in Weight 194 lb 7.163 oz BMI 35.6 BP 110/64 Blood Pressure Location Lt brachial Position Sitting Pulse 86 Pulse Source Monitor Intake Visit Reasons: 4 mth s/p; echo/ labs Intake Note: 4 mth f/up/ echo/labs/ [facility] 02/16 Member Service Representative Required: No Member Service Representative Name: luisana/greek/daughter Accompanied by: Daughter Allergies montelukast [Singulair] Allergy (Unknown, Verified 12/22/24 21:40) itching/rash Medication List - Last Reconciled 02/20/25 by Colby Cadena MD acetaminophen 650 mg PO Q6H PRN albuterol sulfate 2.5 mg inhalation Q6H PRN albuterol sulfate 90 mcg/actuation (Ventolin HFA) 2 puffs inhalation Q4H PRN apixaban (Eliquis) 5 mg PO BID atorvastatin 80 mg PO DAILY bisacodyl (Dulcolax (bisacodyl)) 10 mg (2 x 5 mg) PO BEDTIME blood pressure test kit-large As directed blood sugar diagnostic (Maintenance Assistant Verio test strips) blood-glucose meter (Maintenance Assistant Verio Flex Meter) calcium citrate-vitamin D3 315 mg-6.25 mcg (250 unit) 1 tab PO BID calcium polycarbophil (Fiber-Lax) 625 mg PO DAILY cetirizine 10 mg PO DAILY PRN cholecalciferol (vitamin D3) (Vitamin D3) 50 mcg PO DAILY clopidogrel 75 mg PO DAILY dextromethorphan-guaifenesin 10-100 mg/5 mL (Josselyn-Tussin DM) 10 mL PO Q4H PRN diclofenac sodium 1% 1 g topical TID PRN docusate sodium (Stool Softener) 100 mg PO DAILY duloxetine 30 mg PO DAILY empagliflozin (Jardiance) 10 mg PO DAILY famotidine 20 mg PO BID ferrous gluconate 324 mg PO DAILY fluticasone propion-salmeterol 250-50 mcg/dose (Advair Diskus) 1 puff inhalation BID furosemide 40 mg PO DAILY lancets ([employer]Touch Delica Plus Lancet) metformin 850 mg PO DAILY metoprolol succinate ER (Toprol XL) 50 mg PO DAILY mirabegron ER (Myrbetriq) 50 mg PO DAILY psyllium husk (Reguloid (psyllium husk)) 1 tsp PO BID pyridoxine (vitamin B6) 100 mg PO DAILY sacubitril-valsartan 24-26 mg (Entresto) 1 tab See Protocol PO BID simethicone 80 mg PO QID PRN trazodone 100 mg PO BEDTIME HPI Comments Details: 80-year-old female who is presenting to clinic after recent cardiac catheterization performed at [facility]. She came to [facility] and was diagnosed with congestive heart failure. At that time she also complained of some chest pains. The chest pains appear to be atypical but she had diffuse T-wave inversions anterolateral leads with mildly elevated troponin levels and ruled in for NSTEMI. She was transferred for cardiac c atheterization and it was noticed that she had severe mid LAD stenosis. This was treated with a drug-eluting stent. Subsequent to that she was in the hospital because there was some concern about bradycardia and it appears her diltiazem was stopped at that stage. She also was taken off the aspirin and was discharged home with apixaban and clopidogrel. She previously had atrial fibrillation and was supposed to be on Eliquis. She was accompanied by her daughter. The daughter reported that 5 days ago the patient complained of some shortness of breath and had to step out of the house and went to the porch to get some air. She also has orthopnea. She has peripheral edema. She is taking her medications regularly and has a pill box. No bleeding concerns. 06/24/23: She returns for follow-up. She had echocardiography yesterday showed low normal ejection fraction and moderate to severe mitral regurgitation. The daughter said that the patient has been experiencing some orthopnea at night time. She has been taking medication regularly. Denying any chest discomfort or significant shortness of breath with activity. She is not very active though. She had some blood in her urine due to ureteric stents but nothing gross recently. 06/15/2024: She is here for follow-up. She is feeling good. Denying any shortness of breath or chest discomfort. No bleeding concerns. Taking Eliquis and Plavix at this point. Well rate controlled for atrial fibrillation at this point metoprolol XL 50 mg daily. Blood pressure 120/70. 10/26/2024: On follow-up today, she is denying chest pain or shortness of breath. No orthopnea or PND. No peripheral edema. Taking medications regularly. No reported bleeding concerns. Last echocardiography showed moderate LV dysfunction with mild RV dysfunction. Mitral regurgitation interestingly was trace on that study. She has not received her amlodipine scripts and has not been taking amlodipine. We discussed and we are going to change her to losartan 25 mg daily given LV dysfunction. 02/20/2025: She is here for f/u. She is saying she went to [facility] after a mechanical fall where she hit her chest. She complained of chest pain which was thought to be musculoskeletal in origin. Biomarkers were negative at [facility]. She also had admission in December 2024 at [facility] when she was noticed to have elevated troponin level the setting of congestive heart failure and pneumonia. Echocardiography at that time showed severe LV dysfunction of 25%. She is denying any significant complaints other than foot pain. Occasionally feels pressure-like feeling in the chest at nighttime but during the day denying any symptoms. EKGs showing AFib with PVCs. [facility]LY [facility], [facility] Medical History Persistent atrial fibrillation Elevated liver enzymes NSTEMI (non-ST elevated myocardial infarction) Anxiety Asymmetrical thyroid CHF (congestive heart failure) COVID-19 Renal cyst, acquired, left Obstruction, uropathy Thrombosed external hemorrhoid COPD (chronic obstructive pulmonary disease) Atrial fibrillation Gout Asthma Alcohol abuse Nephrolithiasis Knee arthropathy Osteoarthritis Diabetes Arthritis Hypertension Surgical History Hx of bilateral cataract extraction Hx of hysterectomy Hx of lithotripsy History of total right knee replacement History of esophagogastroduodenoscopy (EGD) Hx of cystoscopy Hx of colonoscopy History of total knee arthroplasty Social History Household Members: None Household Members Other:: DAUGHTER Housing: Apartment Housing Other:: low income housing Do you presently have visiting nurse or other home services: Yes (has a [employer] but reports is not consistent with coverage) Unable to assess alcohol history related to: Unknown Alcohol intake: unknown Patient Tobacco Use Status: Never used Tobacco e-Cigarette/Vaping Use: Never Used Second Hand Smoke Exposure: No Advance Directives Date on File: 09/07/22 service: No Current occupational status: disabled Review of Systems Const Denies chills, Denies fatigue, Denies fever(s), Denies frequent falls, Denies weakness, Denies weight gain and Denies weight loss ENT Denies dizziness Card Denies chest pain, Denies leg edema, Denies lightheadedness, Denies palpitations, Denies dyspnea and Denies dyspnea on exertion Resp Denies cough, Denies dyspnea and Denies dyspnea on exertion GI Denies hematochezia Musc Denies abnormal gait, Denies muscle weakness, Denies numbness, Denies radiating pain into limb and Denies tingling Neuro Denies abnormal gait, Denies dizziness, Denies frequent falls, Denies numbness, Denies tingling and Denies weakness Endo Denies fatigue and Denies palpitations Physical Exam Vital Signs: Last Vital Signs Pulse 86 02/20/25 11:16 BP 110/64 02/20/25 11:16 BMI result Body Mass Index 35.6 GENERAL APPEARANCE: in no acute distress. NECK: no carotid bruit, no jugular venous distention. SKIN: no suspicious lesions, warm and dry. HEART: no murmurs, irregular rate and rhythm. LUNGS: clear to auscultation bilaterally. ABDOMEN: soft, nontender. EXTREMITIES: No significant edema. PERIPHERAL PULSES: equal. NEUROLOGIC: No gross deficits, AAO X 3 Office Procedures EKG Details: Atrial fibrillation 86 beats per minute, normal axis, frequent premature ventricular complexes, QTC 411 milliseconds. [id number], Complete Assessment & Plan Assessment & Plan (1) CHF (congestive heart failure): Code(s): I50.9 - Heart failure, unspecified Category: Medical (2) Persistent atrial fibrillation: Code(s): I48.19 - Other persistent atrial fibrillation Category: Medical (3) Cardiomyopathy: Code(s): I42.9 - Cardiomyopathy, unspecified Category: Medical Plan Pleasant 80 year female who is here for follow-up. She has background of NSTEMI and cardiomyopathy underwent cardiac catheterization where severe LAD stenosis was noted and she underwent PCI. Subsequently ejection fraction was stable but never completely improved. Recent admission with pneumonia with worsening ejection fraction in 20s. Only thing which is persistently present is atrial fibrillation. Previously due to frailty and multiple admissions at hospital for different issues-we did not consider cardioversion. I have explained to the daughter using senior facilities manager that Roseanna's heart is not recovering at this point and atrial fibrillation can be a potential reason for that. Strategies include consideration for cardioversion and I have discussed the risk and benefits of that. Alternatively guideline directed medical therapy can be continued and we can reassess but so far she has not shown any signs of recovery. The daughter is saying the patient sometimes delays her meds a couple of hours but takes them every day. I think she is more less compliant with medications and has progressive LV dysfunction related to atrial fibrillation. The patient's daughter will discuss with family at home about cardioversion and if they agreed then we will arrange cardioversion for the patient. Would favor starting her on amiodarone in case she is going for cardioversion because that we help increase success of cardioversion given that she had persistent atrial fibrillation for months and months. Thank you for allowing me to participate in the care of your patient. Please feel free to contact me if you have any questions. Coding Level of Care Code Est Pt Level 5 (08988) Diagnoses CHF (congestive heart failure) I50.9 Persistent atrial fibrillation I48.19 Cardiomyopathy I42.9 CPT Codes EKG - CPT: 38695-[id number], Complete ([id number])
[2025-02-20 11:16] VITALS: BP 110/64; PULSE 86; BMI 35.6
--- OUTSIDE RECORDS SUMMARY | 2025-02-20 13:03 | XMS_ITS | Encounter Summary ---
Author Organization [employer] Address [address] [place] [id number] Care Team Providers Care Culinary Internship Name Role Phone Flor Marie MD Primary Care Pro vider Reason for Visit * Reason Comments Med Refill Encounter Details Date Type Department Care Team (Late st Contact Info) Description 08/11/2024 Refill [facility] [address] [place] [address] [phone] Flor Marie MD [address] [place] [address] [phone] Social History Tobacco Use Types Packs/Day Years Used Date Smoking Tobacco: Never Smokeless Tobacco: Never Alcohol Use Standard Drinks/Week Comments Not Currently 0 (1 standard drink = 0.6 oz pur e alcohol) Depression Answer Date Recorded Patient Health Questionnaire-9 Score 19 07/20/2023 Housing Stability Answer Date Recorded What is your housing situation today? I have eric chino 08/24/[address] you li ve. Do you have problems with any of the following? None of the above 08/24/2023 Food Insecurity Answer Date Recorded Within the past 12 months, y ou worried that your food would run out before you got money to buy more: Never True 08/24/2023 Within the past 12 months,th e food you bought just didn't last and you didn't have enough money to get more: Never True Transportation Answer Date Recorded In the past 12 months, has l ack of transportation kept you from medical appts, meetings, work or from getting things needed for daily living? No 08/24/2023 Utilities Answer Date Recorded In the past 12 months, has t he electric, gas, oil or water company threatened to shut off services in your home? No 08/24/2023 Depression Answer Date Recorded Patient Health Questionnaire-2 Score 6 07/20/2023 Internet Access Answer Date Recorded Internet Access Q1 Yes 07/11/2024 Internet Access Q2 Not on file 07/11/2024 Comments No Sex and Gender Information Value Date Recorded Sex Assigned at Female 09/08/2022 10:14 AM EDT Legal Sex Female 10:14 AM EDT Gender Identity Female 09/08/2022 10:14 AM EDT Sexual Orientation Straight 09/08/2022 10 :14 AM EDT documented as of this encounter Plan of Treatment Upcoming Encounters Date Type Department Care Team (Late st Contact Info) Description 04/11/2025 11:15 AM EDT Office Visit [facility] [address] [place] [id number] Flor Marie MD [address] [place] [phone] documented as of this encounter Visit Diagnoses Not on filedocumented in this encounter Additional Health Concerns Assessment Noted Time PHQ-9 Depression Total Score: 19 023 2:14 PM EDT documented as of this encounter Care Teams [employer] Internship Relationship Specialty Start Date End Date Flor Marie MD [address] [place] [phone] PCP - General Internal Medicine 05/18/23 [facility] 01/17/25 documented as of this encounter
--- OUTSIDE RECORDS SUMMARY | 2025-02-20 13:03 | XMS_ITS | Encounter Summary ---
Author Organization [employer] Address [address] [place] [address] Care Team Providers Care Weed Inspector Name Role Phone Flor Marie MD Primary Care Pro vider Reason for Referral * Consultation (Urgent) - Closed Specialty Diagnoses / Procedures Referred By Contac t Referred To Contact Behavioral Health Diagnoses Depression, unspecified depression type Flor Marie MD [address] [place] [address] Phone: tel: fax: Referral ID Status Reason Start Date Expiration Date V isits Requested Visits Authorized [id number] Closed Specialty Services Required 02/16/2025 02/16/2026 1 1 Reason for Visit * Reason Onset Date Comments Nurse Triage 02/16/2025 Encounter Details Date Type Department Care Team (Late st Contact Info) Description 02/16/2025 Telephone [facility] MEDICINE [address] [place] [address] Vanessa Rojo, RN [address] [place] [address] Nurse Triage Social History Tobacco Use Types Packs/Day Years [...] AM EDT documented as of this encounter Miscellaneous Notes * Telephone Encounter - Vanessa Rojo RN - 02/17/2025 8:54 AM EDT Checked Racheal. Pt currently admitted at [facility]. * Telephone Encounter - Vanessa Rojo RN - 02/16/2025 11:56 AM EDT Incoming call from Twyla who is an MANAGER DOMESTIC with [facility] transferred to [place] from critical results line. She reports pt with chest pain and SI. She handed the phone to the pt. Interpretation provided by SACHA Vila. Pt reports not having chest pain . Reports that she fell while caregiver was changing her clothes on 02/03/25. Fell on left side and since then has had difficulty breathing. Has not improved since the day it happened. No LOC or strike to head. SI is every once in a while . Most recently was 2 days ago 02/14/25. Had plan to take all of her pills but did not follow through. Doesnot see a therapist. No active SI/HI today. Gave crisis number, pt agreeable to referral. Pt is p rimarily homebound as she can't walk and doesn't have active family. ELECTRIC POWER SUPERINTENDENT moved away. Spent ~20 minutes explaining to pt that she cannot have a televisit, she needs to be seen. It has been >10 dayssince her fall, if she feels like she can't breathe, she needs to go to the ED for evaluation. Pt has no one to bring her. Pt states doesn't like [facility], only wants to go to [facility]. Informed that shecan tell them to bring her to [facility] when they gets there. Pt states needs to shower. Refusing toleave until she showers. Agreed to wait 10 minutes and then call ambulance for her. Waited and called ambulance as I told her I would, documented in this encounter Plan of Treatment Upcoming Encounters Date Type Department Care Team (Late st Contact Info) Description 04/11/2025 11:15 AM EDT Office Visit [facility] MEDICINE [address] [place] [address] Flor Marie MD [address] [place] [address] Scheduled Referrals Name Type Priority Associated Diagnoses Orde r Schedule Referral to Behavioral Health Outpatient Referral Urgent Depression, unspecified depression type Expected: 02/16/2025 (Approximate), Expires: 02/16/2026 documented as of this encounter Visit Diagnoses Diagnosis Depression, unspecified depression type documented in this encounter Additional Health Concerns Assessment Noted Time PHQ-9 Depression Total Score: 19 023 2:14 PM EDT documented as of this encounter Care Teams Weed Inspector Relationship Specialty Start Date End Date Flor Marie MD [address] [place] [phone] PCP - General Internal Medicine 05/18/23 [place] 01/17/25 documented as of this encounter
--- OUTSIDE RECORDS SUMMARY | 2025-02-20 13:03 | XMS_ITS | Encounter Summary ---
Author Organization [employer] Address [address] [place] [address] 7 [place] [address] Care Team Providers Care Drug Abuse Program Coordinator Name Role Phone Carolyn Ceballos Primary Care Provider +1- [phone] Flor Marie MD Primary Care Pro vider Reason for Visit * Reason Onset Date Comments Appointment Request 04/29/2023 Encounter Details Date Type Department Care Team (Late st Contact Info) Description 04/29/2023 Telephone [facility] MEDICINE [address] [place] [address] Carolyn Ceballos FNP [address] [place] [address] Dept [place] [address] Appointment Request Social History Tobacco Use Types Packs/Day Years Used Date Smoking Tobacco: Never Smokeless Tobacco: Never Alcohol Use Standard Drinks/Week Comments Not Currently 0 (1 standard drink = 0.6 oz pur e alcohol) PHQ-2 Answer Date Recorded Patient Health Questionnaire-2 Score 0 03/18/2023 Comments Unknown Sex and Gender Information Value Date Recorded Sex Assigned at Female 09/08/2022 10:14 AM EDT Legal Sex Female 10:14 AM EDT Gender Identity Female 09/08/2022 10:14 AM EDT Sexual Orientation Straight 09/08/2022 10 :14 AM EDT COVID-19 Exposure Response Date Recorded In the last 10 days, have yo u been in contact with someone who was confirmed or suspected to have Coronavirus/COVID-19? No / Unsure 04/29/2023 7:35 AM EDT documented as of this encounter Miscellaneous Notes * Telephone Encounter - Manav Stafford RN - 04/30/2023 9:22 AM EDT T/C to [phone] to re-schedule HDF. No answer. LVM to call back on [phone]. * Telephone Encounter - Caity Robles - 04/29/2023 2:54 PM EDT Tc from pt canceled HDF for 05/01/23 and would like to r/s . documented in this encounter Plan of Treatment Upcoming Encounters Date Type Department Care Team (Late st Contact Info) Description 04/11/2025 11:15 AM EDT Office Visit [facility] MEDICINE [address] [place] [address] Flor Marie MD [address] [place] [phone] documented as of this encounter Visit Diagnoses Not on filedocumented in this encounter Care Teams Drug Abuse Program Coordinator Relationship Specialty Start Date End Date Carolyn Ceballos FNP PCP - General Family Medicine 07/02/22 05/17/23 Flor Marie MD [address] [place] [id number] PCP - General Internal Medicine 05/18/23 [facility] 01/17/25 documented as of this encounter
--- OUTSIDE RECORDS SUMMARY | 2025-02-20 13:03 | XMS_ITS | Encounter Summary ---
Author Organization [employer] Address [address] [place] [address] Care Team Providers Care Can Feeder Name Role Phone Flor Marie MD Primary Care Pro vider Reason for Visit * Reason Onset Date Comments Verbal order 02/15/2025 FYI 02/15/2025 Encounter Details Date Type Department Care Team (Late st Contact Info) Description 02/15/2025 Telephone [facility] MEDICINE [address] [place] [address] Flor Marie MD [address] [place] [address] Verbal order; FYI Social History Tobacco Use Types Packs/Day Years [...] Telephone Encounter - Vanessa Rojo RN - 02/15/2025 8:59 AM EDT Telephone call returned to [facility] as below. No answer. Phone just rang for an extended period of time with no option for v/m. * Telephone Encounter - Angela Leiva - 02/15/2025 8:38 AM EDT Tc from Cj (nurse) with caretenders needing verbal order to get social work, and to report pt had a fall on Thursday; pt has no injuries and is doing well. documented in this encounter Plan of Treatment Upcoming Encounters Date Type Department Care Team (Late st Contact Info) Description 04/11/2025 11:15 AM EDT Office Visit [facility] MEDICINE [address] [place], [place] [phone] Flor Marie MD [address] [place], [place] [phone] documented as of this encounter Visit Diagnoses Not on filedocumented in this encounter Additional Health Concerns Assessment Noted Time PHQ-9 Depression Total Score: 19 023 2:14 PM EDT documented as of this encounter Care Teams Can Feeder Relationship Specialty Start Date End Date Flor Marie MD [address] [place] [address] PCP - General Internal Medicine 05/18/23 [place] 01/17/25 documented as of this encounter
--- OUTSIDE RECORDS SUMMARY | 2025-02-20 13:03 | XMS_ITS | Encounter Summary ---
Author Organization [employer] Address [address] [place] [address] Care Team Providers Care Plane Runner Name Role Phone Flor Marie MD Primary Care Pro vider Reason for Visit * Reason Comments Med Refill Encounter Details Date Type Department Care Team (Late st Contact Info) Description 06/05/2023 Refill [facility] MEDICINE [address] [place] [address] Carolyn Ceballos FNP [address] [place] [address] Dept [place] [address] Age-related osteoporosis without current pathological fracture Social History Tobacco Use Types Packs/Day Years [...] Description 04/11/2025 11:15 AM EDT Office Visit [facility] MEDICINE [address] [place] [address] [phone] Flor Marie MD [address] [place], [place] [phone] documented as of this encounter Visit Diagnoses Diagnosis Age-related osteoporosis without current pathological fracture documented in this encounter Care Teams Plane Runner Relationship Specialty Start Date End Date Flor Marie MD [address] [place] [phone] PCP - General Internal Medicine 05/18/23 [place] 01/17/25 documented as of this encounter
--- OUTSIDE RECORDS SUMMARY | 2025-02-20 13:04 | XMS_ITS | Encounter Summary ---
Author Organization [employer] Address [address] [place] [address] Care Team Providers Care Robotics Application Engineer Name Role Phone Flor Marie MD Primary Care Pro vider Reason for Visit * Reason Onset Date Comments FYI 04/13/2024 Encounter Details Date Type Department Care Team ([facility] st Contact Info) Description 04/13/2024 Telephone [facility] MEDICINE [address] [place] [address] Flor Marie MD [address] [place] [address] FYI Social History Tobacco Use Types Packs/Day [...] Recorded Patient Health Questionnaire-2 Score 6 07/20/2023 Comments No Sex and Gender Information Value Date Recorded Sex Assigned at Female 09/08/2022 10:14 AM EDT Legal Sex Female 10:14 AM EDT Gender Identity Female 09/08/2022 10:14 AM EDT Sexual Orientation Straight 09/08/2022 10 :14 AM EDT documented as of this encounter Miscellaneous Notes * Telephone Encounter - Jadyn Eid - 04/13/2024 12:23 PM EDT Tc from Anthony with [facility] calling to inform did the evaluation for PT and the plan is to see pt 2 times a week for 3 weeks and then 1 time a week for 2 weeks. Any questions contact Anthony at [phone] documented in this encounter Plan of Treatment Upcoming Encounters Date Type Department Care Team (Late st Contact Info) Description 04/11/2025 11:15 AM EDT Office Visit [facility] MEDICINE [address] [place] [address] Flor Marie MD [address] [place] [address] documented as of this encounter Visit Diagnoses Not on filedocumented in this encounter Additional Health Concerns Assessment Noted Time PHQ-9 Depression Total Score: 19 023 2:14 PM EDT documented as of this encounter Care Teams Robotics Application Engineer Relationship Specialty Start Date End Date Flor Marie MD [address] [place] [phone] PCP - General Internal Medicine 05/18/23 [facility] 01/17/25 documented as of this encounter
--- OUTSIDE RECORDS SUMMARY | 2025-02-20 13:04 | XMS_ITS | Encounter Summary ---
Author Organization [employer] Address [address] [place] [address] Care Team Providers Care Protection Mgr Name Role Phone Carolyn Ceballos Primary Care Provider +1- [phone] Flor Marie MD Primary Care Pro vider Encounter Details Date Type Department Care Team (Latest Contact Info) Description 05/23/2022 Abstract [facility] CONVERSIONS Dental, Provider, DDS Social History Tobacco Use Types Packs/Day Years Used Date Smoking Tobacco: Never Assessed Comments Unknown Sex and Gender Information Value [...] Description 04/11/2025 11:15 AM EDT Office Visit [facility] MEDICINE [address] [place] [phone] Flro Marie MD [address] [place], [place] [phone] documented as of this encounter Visit Diagnoses Not on filedocumented in this encounter Care Teams Protection Mgr Relationship Specialty Start Date End Date Carolyn Ceblalos FNP PCP - General Family Medicine 07/02/22 05/17/23 Flor Marie MD [address] [place] [phone] PCP - General Internal Medicine [facility] documented as of this encounter
--- OUTSIDE RECORDS SUMMARY | 2025-02-20 13:04 | XMS_ITS | Encounter Summary ---
Author Organization [employer] Address [address] [place] [address] Care Team Providers Care Quencher Operator Name Role Phone Carolyn Ceballos Primary Care Provider +1- [phone] Flor Marie MD Primary Care Pro vider Encounter Details Date Type Department Care Team (Latest Contact Info) Description 08/17/2019 Abstract [facility] CONVERSIONS Dental, Provider, DDS Social History [...] Upcoming Encounters Date Type Department Care Team ( st Contact Info) Description 04/11/2025 11:15 AM EDT Office Visit [facility] MEDICINE [address] [place] [address] Flor Marie MD [address] [place], [place] [phone] documented as of this encounter Visit Diagnoses Not on filedocumented in this encounter Care Teams Quencher Operator Relationship Specialty Start Date End Date Carolyn Ceballos FNP PCP - General Family Medicine 07/02/22 05/17/23 Flor Marie MD [address] [place] [address] PCP - General Internal Medicine [facility]18[facility] documented as of this encounter
--- OUTSIDE RECORDS SUMMARY | 2025-02-20 13:04 | XMS_ITS | Clinical Summary ---
Author Organization [employer] Address [address] [place] [address] 7 [place] [address] Care Team Providers Care Global Marketing Coordinator Name Role Phone Flor Marie MD Primary Care Pro vider Allergies Active Allergy Reactions Criticality Noted Date Comments Gabapentin 01/23/2021 Other reaction(s): Itching Montelukast 10/31/2010 Other reaction(s): Other (see comments), unspecified Medications * This document contains information received from the source organization and may not represent a complete record from that organization. famotidine (Pepcid) 20 MG tablet Take 1 tablet by mouth every 12 (twelve) hours. 09/08/20 22 Active Blood Glucose Monitoring Suppl (OneTouch Verio Flex System) w/Device kit USE DIRECTED 07/16/20 22 Active docusate sodium (Colace) 100 MG capsule TAKE 1 CAPSULE BY MOUTH TWICE DAILY 12/23/19 23 Active cetirizine (ZyrTEC) 10 MG tablet TAKE 1 TABLET BY MOUTH EVERY DAY NEEDED FOR ALLERGIES 07/16/20 22 Active Myrbetriq 50 MG 24 hr tablet Take 1 tablet by mouth 1 (one) time each day. 03/16/20 23 Active furosemide (Lasix) 40 MG tablet Take 1 tablet by mouth 1 (one) time each day. Active lidocaine (Lidoderm) 5 % patch Apply 1 patch topically in the morning. Remove & discard patch within 12 hours or as directed by . Active OneTouch Verio test strip TEST BLOOD SUGAR TWICE A DAY 100 strip 11 08/26/20 23 Active Alcohol Swabs (Alcohol Pads) 70 % pads 1 Units at noon and 1 Units in the evening. Use as directed. 100 each 11 11/18/19 24 Active Lancets (OneTouch Delica Plus [id number]) [facility] [place] BLOOD [place]GAR TWICE A DAY 100 each 11/18/19 24 Active ceramides (CeraVe) moisturizing cream Apply 1 Application. topically if needed for dry skin. 340 g 11/27/19 24 Active albuterol 108 (90 Base) MCG/ACT inhaler INHALE 2 PUFFS BY MOUTH EVERY 4 TO 6 HOURS NEEDED 8.5 g 1 07/01/20 24 Active acetaminophen (Tylenol) 325 MG tabletIndication s:Chest wall pain Take 2 tablets (650 mg) by mouth every 8 (eight) hours if needed for moderate pain. 30 tablet 1 07/22/20 24 Active Fluticasone-Salm eterol 250-50 MCG/ACT aerosol powderIndication s:Pulmonary emphysema, unspecified emphysema type (CMS/HCC) INHALE 1 PUFF BY MOUTH TWICE DAILY AT NOON AND IN THE EVENING, RINSE MOUTH AFTER USING., DO NOT SWALLOW 60 each 5 10/24/20 24 Active losartan (Cozaar) 25 MG tablet Take 25 mg by mouth Once per day. Active ferrous gluconate (Fergon) 324 (38 Fe) MG tablet Take 1 tablet (324 mg) by mouth with breakfast. 90 tablet 1 11/21/19 25 Active albuterol (2.5 MG/3ML) 0.083% nebulizer solution INHALE 1 AMPULE USING A NEBULIZER EVERY 6 HOURS NEEDED FOR WHEEZING 90 mL 3 11/30/19 25 Active traZODone (Desyrel) 100 MG tablet Take 1 tablet (100 mg) by mouth at bedtime. 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 90 tablet 3 01/13/20 25 Active atorvastatin (Lipitor) 80 MG tablet TAKE 1 TABLET BY MOUTH EVERY DAY 90 tablet 01/18/20 25 Active Bisacodyl EC 5 MG EC tablet Take 2 tablets by mouth at bedtime. 11/29/19 25 Active Fiber-Lax 625 MG tablet Take 1 tablet by mouth Once per day. 11/29/19 25 Active D3 Super Strength 50 MCG (1999 UT) capsule Take 1 capsule by mouth Once per day. 03/16/20 24 Active clopidogrel (Plavix) 75 MG tabletIndication s:Acute Coronary Syndrome Take 75 mg by mouth Once per day. Active simethicone (Mylicon) 80 MG chewable tablet Chew 80 mg every 6 (six) hours if needed for flatulence. Active traMADol (Ultram) 50 MG tablet Take 50 mg by mouth every 6 (six) hours if needed for severe pain. Active Blood Pressure kit 1 each 2 times daily. 1 kit 01/21/20 25 026 Active metoprolol succinate XL (Toprol-XL) 50 MG 24 hr tablet TAKE 1 TABLET BY MOUTH EVERY DAY IN THE MORNING 30 tablet 2 02/08/20 25 Active metoprolol succinate XL (Toprol-XL) 50 MG 24 hr tablet TAKE 1 TABLET BY MOUTH EVERY DAY IN THE MORNING 30 tablet 5 05/18/20 24 025 Discontinued Active Problems Problem Noted Date Diagnosed Date Chronic pain of right knee 01/20/2025 ST elevation myocardial infarction (STEMI) 01/20 Edema of right lower extremity 01/20/2025 Chronic renal disease, stage IV 01/06/2024 Skin pruritus 11/29/2023 Assessment & Plan (11/29/2023 9:55 AM EST): -skin has some signs of scratching in her back and ankles -rest of skin normal , no signs of active infection Possible xerosis ,less concern for scabies at this time -cervae w triamcinolone mixed BID x max 10 days and hydroxyzine low dose prn Q12h w caution -if no better in 4 weeks will consider permetrine tx as trial Urgency of urination 11/29/2023 Assessment & Plan (11/29/2023 9:58 AM EST): -urine dipstick today not able to done pt only urinate a little bit so no sample for test . Pt underwent recently urologic procedure so there is a risk for infection -will tx emeprically for UTI w cephalexin 500 mg BID for 7 days as complicated UTI for stent in place -alarm signs and symptoms discussed -advised pt to RTC to walk in if after completed ATB if symptoms persist to get UA and send for cx ( not able to obtain sample today) Coccyx pain 11/29/2023 Assessment & Plan (11/29/2023 10:00 AM EST): -coccyxs pain w palaption ,neuro exam normal after mechanical fall - to r/o fracture XR order today -advised to use donut cushion-has at home -tylenol prn and has tramadol for severe pain prn -denies any concerning neurologic symptoms and normal neuro exam today -will hold on brain image but advise pt and daughter that next time if has head trauma needs to look for medical attention given she takes AC Imbalance 11/03/2023 Frail elderly 11/03/2023 Poor memory 11/03/2023 UPJ obstruction, acquired 08/11/2023 Severe obesity (BMI 35.0-39.9) with comorbidity 08/11/2023 Gross hematuria 08/11/2023 GERD without esophagitis 08/11/2023 Dysphagia, pharyngoesophageal phase 08/11/2023 Cystocele with rectocele 08/11/2023 Anxiety 08/11/2023 Alcohol abuse 08/11/2023 Mitral regurgitation 07/20/2023 Depression 07/20/2023 Tinnitus 07/20/2023 Nephrolithiasis 06/17/2023 Assessment & Plan (06/17/2023 6:28 PM EDT): 04/19/23 MRI abd Moderate R hydronephrosis and Mild Left hydronephrosis unchanged. UPJ obstruction Health care maintenance 06/17/2023 Easy bruisability 06/17/2023 NSTEMI (non-ST elevated myocardial infarction) 0 05/04/2023 Overview (05/12/2023): Admitted [facility] 04/10/23-Discharged 04/19/23 Transfer[place] [facility] 04/27/23, f/u cath. severe mid LAD stenosis noted on cath. taken off the aspirin and was discharged home with apixaban and clopidogrel. She previously had atrial fibrillation and was supposed to be on Eliquis Iron deficiency anemia due to chronic blood loss 03/18/2023 Assessment & Plan (03/18/2023 11:27 AM EDT): most likely related to hematuria, no other evidence of bleeding continue iron supplementation, check CBC and iron studies Persistent atrial fibrillation 01/01/2023 Overview (08/11/2023): 04/27/23: Treating w/ Apixaban Assessment & Plan (03/18/2023 11:28 AM EDT): Heart rate is controlled. FU with cardiology next week. Continue Eliquis and check hemoglobin due to gross hematuria. Continue carvdelol 2.125 + diltiazem 180 mg Will determine furhter therapy with Eliquis after result of H&H check Acute on chronic congestive heart failure 2022 Overview (08/11/2023): Echocardiogram performed at [facility] on 04/15/2023 showing ejection fraction 30 35% with moderate global hypokinesis, moderate LA dilation, at least moderate mitral valve regurgitation, dilated right ventricle with mildly reduced function and trivial pericardial effusion. Increased dose Lasix 40 mg/day Cardiology 04/27/23 Assessment & Plan (03/18/2023 10:47 AM EDT): Doesn't seem to be fluid overload. BP is at goal. Continue off lasix and losartan until GFR is obtained. Check BNP. FU with cardiology next week. Osteoporosis 03/01/2022 Diabetes 01/09/2022 Complex renal cyst 06/13/2021 Overview (05/04/2023): 04/19/23: MRI abd w/ and w/o contrast: Large cystic lesions left interpolar region 9.4 cm Left kidney, likely benign. Fits classification Bosniak 2F lesion.F/u 6 month f/u CT or MR recommended Stage 3 chronic kidney disease 06/13/2021 Varicose veins of right lower extremity with inf lammation 07/05/2018 Hypertensive retinopathy 03/29/2018 Diabetic peripheral neuropat hy associated with type 2 diabetes mellitus 03/25/2017 Overview (08/12/2023): Care managed by Neurology Last appt Assessment & Plan (03/18/2023 10:39 AM EDT): Fairly controlled, needs further evalaution by PCP. FU with PCP. Allergic rhinitis 11/06/2015 Constipation 11/06/2015 Acute erosive gastritis 11/06/2015 Hyperlipidemia associated with type 2 diabetes m ellitus 11/06/2015 HTN (hypertension) 11/06/2015 Assessment & Plan (03/18/2023 10:38 AM EDT): BP is at goal. Continue diltiazem and coreg. She is off losaratan and lasix for now due to ORION Counseled re low salt diet/increase moderate physical activity. Check home BP BIW and prn CP/YOON/WALSH Non smoking patient. FU with PCP Illiteracy 11/06/2015 Primary osteoarthritis involving multiple joints 11/06/2015 Pulmonary emphysema 11/06/2015 Restless leg 11/06/2015 Overview (08/11/2023): Used to be on ropinirole with no effect Resolved Problems Problem Noted Date Diagnosed Date Resolved Date COVID-19 08/11/2023 11/03/2023 Intertrigo 07/20/2023 11/03/2023 Weight loss 06/17/2023 11/03/2023 Encounters * This document contains information received from the source organization and may not represent a complete record from that organization. Date Type Department Care Team Description 02/16/2025 Telephone [facility] [address] [place] [address] Vanessa Rojo, RN Nurse Triage 02/15/2025 Telephone [facility] [address] [place] [address] Flor Marie MD Verbal order; FYI 2025 Refill [facility] [address] [place] [address] Flor Marie MD 02/03/2025 Telephone [facility] [address] [facility] [place] [address] Flor Marie MD verbal order needed 02/03/2025 Telephone [facility] [address] [facility] [place] [address] Kassidy Jeff RN Blood Pressure Home Log 01/24/2025 Telephone [facility] [address] [facility] [place] [address] Flor Marie MD 01/20/2025 2:00 PM EDT Office Visit [facility] [place] [address] Olamide Hinkle NP Type 2 diabetes mellitus with stage 3b chronic kidney disease, without long-term current use of insulin (CMS/[facility]) (Primary Dx); Chronic pain of right knee; ST elevation myocardial infarction (STEMI), unspecified artery (CMS/HCC); Edema of right lower extremity 01/20/2025 Telephone [facility] [address] [facility] [place] [address] Flor Marie MD may recall 01/17/2025 Telephone [facility] [address] [place] [address] Flor Marie MD order 01/16/2025 Refill [facility] [address] [place] [address] Silver Barber MD 01/12/2025 Refill [facility] [address] [place] [address] Flor Marie MD 01/11/2025 Telephone [facility] [address] [place] [phone] Regla Valdivia [place] Chart Prep 01/10/2025 Patient Outreach [facility] [address] [place] [address] Flor Marie MD Transition Of Care (Tcm) (HDF- scheduled ) 01/10/[address] [address] Flor Marie MD Hospital Follow-up 12/22/2024 Refill [facility] [address] [place] [address] Flor Marie MD 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 12/20/2024 Telephone [facility] [address] [place] [phone] Cadence Beintez [place] February Recall 12/07/2024 Refill [facility] [address] [place] [address] Flor Marie MD 12/05/2024 1:00 PM EST Office Visit [facility] [address] [place] [phone] Tanna Parker NP Cough in adult (Primary Dx); Elevated blood pressure reading in office with diagnosis of hypertension; Dizziness 12/05/2024 Travel 11/30/2024 Refill [facility] [address] [place] [phone] Flor Marie MD 11/29/2024 Telephone [facility] [address] [place] [address] Flor Marie MD Nurse Triage 11/22/2024 Telephone [facility] [address] [place], [place] [phone] Haroon Finn MD from Last 3 Months Immunizations Name Administration Dates Next Due Hep B, adult 08/24/2014,04/10/2014,02/02/2014 Influenza High-dose Quadriva lent Preservative Free 09/08/2022,10/08/2020 Influenza injectable quadriv alent IIV4 with preservative 07/20/2023,10/14/2017,08/25/2016,09/06 Influenza injectable quadriv alent preservative free 10/02/2021,10/23/2019,11/04/2018 Influenza, High Dose Seasona l, Preservative Free 01/10/2020 Influenza, IIV3, injectable 07/27/2014, 8,08/11/2007 Influenza, Split (incl. anika fied surface antigen) 07/13/2013,07/07/2012 Influenza, Unspecified 09/08/2022,2019,07/27/2014,08/10,08/11/2007 Pfizer Covid-19 Vaccine 12+ 11/03/2023 Pneumococcal Conjugate PCV 13 11/06/2015 Pneumococcal Conjugate PCV 20 07/20/2023 Pneumococcal Polysaccharide PPSV23 10/23/2017, RSV Bivalent 03/02/2024 TD (adult), 2 Lf tetanus tox oid, preservative free, adsorbed 03/09/1995 Tdap 07/20/2023,02/24/2013 Zoster, Recombinant 06/08/2020,11/15/2019 Zoster, live 06/08/2020,11/15/2019,07/20/2015 Family History Medical History Relation Name Comments Diabetes Mother Kidney disease Mother Relation Name Status Comments Mother Social History Tobacco Use Types Packs/Day Years Used Date Smoking Tobacco: Never Smokeless Tobacco: Never Tobacco Cessation:Counseling Given: Not Answered Alcohol Use Standard Drinks/Week Comments Not Currently [...] Orientation Straight 09/08/2022 10 :14 AM EDT Last Filed Vital Signs Vital Sign Reading Time Taken Comments Blood Pressure 154/76 01/20/2025 2:12 PM EDT Pulse 87 01/20/2025 2:12 PM EDT Temperature 36.3 ??C (97.4 ??F) 01/20/2025 2:12 PM ED T Respiratory Rate 18 01/20/2025 2:12 PM EDT Oxygen Saturation 97% 01/20/2025 2:12 PM EDT Inhaled Oxygen Concentration - - Weight 93.9 kg (207 lb) 01/20/2025 2:12 PM EDT Height 157.5 cm (5' 2 ) 01/20/2025 2:12 PM EDT Body Mass Index 37.86 01/20/2025 2:12 PM EDT Plan of Treatment Upcoming Encounters Date Type Department Care Team (Late st Contact Info) Description 04/11/2025 11:15 AM EDT Office Visit [facility] [address] [place] [phone] Flor Marie MD [address] [place] [address] Health Maintenance Due Date Last Done Comments Dental Oral Exam 1945 Dental X-Ray: Bitewings 1944 Dental X-Ray: Full Mouth 1944 Diabetes: Foot Exam 02/03/1954 Dental Prophylaxis 08/27/2023 02/24/2023 Depression Monitoring 01/18/2024 07/20/2023, 023 COVID-19 Vaccine ( season) 2024 11/03/2023, 03/25/2021 Influenza Vaccine (#1) 2024 , 09/08/2022, 09/08/2022, Additional history exists Depression Screening 07/20/2024 07/20/2023, 07/20/20 Diabetes: Urine Protein Screening 11/04/2024 11/04/2023, 06/19/2023, 03/10/2022, Additional history exists Lipid Panel 11/04/2024 11/04/2023, 06/09, 03/10/2022, Additional history exists SDOH Screening 12/29/2024 12/29/2023 Diabetes: Hemoglobin A1C 04/22/2025 025, 11/04/2023, 11/03/2023, Additional history exists Eye Exam 10/29/2025 10/29/2023, 10/10, 10/29/2023, Additional history exists Alcohol/Substance Use Screening 01/20/2026 01/20/2025 Tobacco Screening 01/20/2026 01/20/2025 DTaP/Tdap/Td Vaccines (3 - Td or Tdap) 07/20/2033 07/20/2023, 02/24/2013, 03/09/1995 Hepatitis B Vaccines Completed 08/24/2014, 04/10/2014, 02/02/2014 Zoster Vaccines Completed 06/08/2020, 05/11, 11/15/2019, Additional history exists Pneumococcal Vaccine: 50+ Years Completed 07/20/2023, 10/23/2017, 11/06/2015, Additional history exists RSV Patients and Patients Aged 60 years or older Completed 03/02/2024 HIB Vaccines Aged Out No longer eligi ble based on patient's age to complete this topic HPV Vaccines Aged Out No longer eligi ble based on patient's age to complete this topic Hepatitis A Vaccines Aged Out No long er eligible based on patient's age to complete this topic IPV Vaccines Aged Out No longer eligi ble based on patient's age to complete this topic Meningococcal Vaccine Aged Out No jhoan arturo eligible based on patient's age to complete this topic RSV under 20 months Aged Out No longe r eligible based on patient's age to complete this topic Rotavirus Vaccines Aged Out No longer eligible based on patient's age to complete this topic Procedures Procedure Name Priority Date/Time Associated Diagnosis Comments POCT GLUCOSE Routine 01/20/2025 2:16 PM EDT Type 2 diabetes mellitus with stage 3b chronic kidney disease, without long-term current use of insulin ([facility]) POCT GLYCATED HEMOGLOBIN, TOTAL Routine 01/20/2025 2:15 PM EDT Type 2 diabetes mellitus with stage 3b chronic kidney disease, without long-term current use of insulin ([facility]) POCT INFLUENZA A (ID NOW RAPID MOLECULAR) Routine 12/05/2024 1:25 PM EST Cough in adult POCT INFLUENZA B (ID NOW RAPID MOLECULAR) Routine 12/05/2024 1:25 PM EST Cough in adult POCT RAPID COVID ANTIGEN Routine 12/05/2024 1:25 PM EST Cough in adult ALBUMIN, RANDOM URINE W/CREATININE Routine 11/04/2023 11:35 AM EST LIPID PANEL, STANDARD Routine 11/04/2023 11:34 AM EST Preop cardiovascular exam PROPHYLAXIS - ADULT Routine 02/24/2023 1 0:00 AM EDT Periodontal disease from Last 3 Months or Most Recently Relevant to Health Maintenance Results * (ABNORMAL) POCT Glucose (01/20/2025 2:16 PM EDT) Glucose Blood, POC 238(A) 60 - 200 mg/dL QC Media Lot # [id number] Lot# Expiration Date [id number] Blood Capillary blood specimen / Unknown 01/20/2025 2:16 PM EDT Olamide Hinkle NP POINT OF CARE TEST ENTER/EDIT OR DERABLES Final Result * (ABNORMAL) POCT HGB A1C (01/20/2025 2:15 PM EDT) Hemoglobin A1C 8.2(A) 4.0 - 6.0 % QC Media Lot # [id number] Lot# Expiration Date ,026 Blood 01/20/2025 2:15 PM EDT Olamide Hinkle LITHOGRAPHIC PLATE MAKER APPRENTICE POINT OF CARE TEST ENTER/EDIT OR DERABLES Final Result * Influenza B (ID NOW Rapid Molecular) (12/05/2024 1:25 PM EST) Influenza B Negative Negative, Indeterminate [facility] Swab 12/05/2024 1:25 PM EST Tanna Parker LITHOGRAPHIC PLATE MAKER APPRENTICE POINT OF CARE TEST ENTER/EDIT O RDERABLES Final Result Performing Organization Address [facility]/ZIP Co de Phone Number [facility] [address] [place] [phone] * Influenza A (ID NOW Rapid Molecular) (12/05/2024 1:25 PM EST) Influenza A Negative Negative, Indeterminate [facility] Swab 12/05/2024 1:25 PM EST Tanna Parker LITHOGRAPHIC PLATE MAKER APPRENTICE POINT OF CARE TEST ENTER/EDIT O RDERABLES Final Result Performing Organization Address [facility]/ZIP Co de Phone Number [facility] [address] [place] [phone] * POCT Rapid COVID Ag (12/05/2024 1:25 PM EST) Rapid COVID Ag Negative [facility] Swab 12/05/2024 1:25 PM EST Tanna Zepedam LITHOGRAPHIC PLATE MAKER APPRENTICE POINT OF CARE TEST ENTER/EDIT O RDERABLES Final Result Performing Organization Address [facility] Co de Phone Number [facility] [address] [place] [phone] * (ABNORMAL) Albumin, Random Urine W/Creatinine (11/04/2023 11:35 AM EST) Pathologist [facility] Creatinine, Urine 99.18 mg/dL [facility] Microalbumin Urine 980.0 mg/L H [facility] Microalbum Creatinine Ratio Ur 988.1(H) <30 ug/mg cr [facility] Comment:Albumin/Creatinine R at Reference Ranges: Normal: < 30 ug/mg creatinine Microalbuminuria: 30 - 300 ug/mg creatinineClinical Albuminuria: > 300 ug/mg creatinine 11/04/2023 11:3 5 AM EST 11/04/2023 3:26 PM EST us Flor Medina MD LAB URINE ORDERAB LES Final Result [facility] [address] [place] [phone] * Lipid Panel, Standard (11/04/2023 11:34 AM EST) Triglycerides 92 <150 mg/dL [facility] Comment:Desirable Triglyceri de: less than 150 mg/dLBorderline High Triglyceride 150-199 mg/dLHigh Triglyceride: 200-499 mg/dLVery High Triglyceride: greater than or equal to 5OO mg/dL Cholesterol 149 <200 mg/dL [facility] Comment:Desirable Cholestero l: less than 200 mg/dLBorderline High Cholesterol: 200-239 mg/dLHigh Cholesterol: greater than 239 mg/dL LDL Cholesterol Calculated 76 <100 mg/dL [facility] Comment:Desirable LDL: less than 100 mg/dLNear Optimal/Above Optimal LDL: 110- 129 mg/dLBorderline High LDL: 130-159 mg/dLHigh LDL: 160-189 mg/dLVery High LDL: greater than or equal to 190 mg/dL HDL Cholesterol 55 >40 mg/dL [facility] Comment:Desirable HDL: great er than 40 mg/dL Note: This HDL assay may give artificially low results in patients with liver disease. Blood Venous blood specimen / Unknown 11/04/2023 11:34 AM EST 11/04/2023 11:34 AM EST us Flor Medina MD LAB BLOOD ORDERAB LES Final Result [facility] [address] [place], [place] [phone] from Last 3 Months or Most Recently Relevant to Health Maintenance Insurance [facility] D[facility] COMPLETE DENTAL - [facility] [employer] Care Teams Global Marketing Coordinator Relationship Specialty Start Date End Date Flor Marie MD [address] [place] [phone] PCP - General Internal Medicine [facility]18[facility]
--- OUTSIDE RECORDS SUMMARY | 2025-02-20 13:04 | XMS_ITS | Encounter Summary ---
Author Organization [employer] Address [address] [facility] [address] [place] [address] Care Team Providers Care Geodesist Name Role Phone Flor Marie MD Primary Care Pro vider Encounter Details Date Type Department Care Team ([facility] Contact Info) Description 08/24/2024 Orders Only [facility] [address] [place] [address] Haroon Finn MD [address] [place] [address] Social History Tobacco Use Types Packs/Day Years [...] Description 04/11/2025 11:15 AM EDT Office Visit [facility] [address] [place] [phone] Flor Marie MD [address] [place] [phone] documented as of this encounter Visit Diagnoses Not on filedocumented in this encounter Additional Health Concerns Assessment Noted Time PHQ-9 Depression Total Score: 19 023 2:14 PM EDT documented as of this encounter Care Teams Geodesist Relationship Specialty Start Date End Date Flor Marie MD [address] [place] [phone] PCP - General Internal Medicine 05/18/23 [facility] 01/17/25 documented as of this encounter
--- OUTSIDE RECORDS SUMMARY | 2025-02-20 13:04 | XMS_ITS | Encounter Summary ---
Author Organization [employer] Address [address] [place] [address] [place] [address] Care Team Providers Care School Patrol Name Role Phone Carolyn Ceballos Primary Care Provider +1- [phone] Flor Marie MD Primary Care Pro vider Reason for Visit * Reason Onset Date Comments care of plan 12/31/2022 Encounter Details Date Type Department Care Team (Late st Contact Info) Description 12/31/2022 Telephone [facility] MEDICINE [address] [place] [address] Carolyn Ceballos FNP [address] [place] [address] Dept [place] [address] care of plan Social History Tobacco Use Types Packs/Day Years [...] suspected to have Coronavirus/COVID-19? No / Unsure 01/02/2023 11:33 AM EST documented as of this encounter Miscellaneous Notes * Telephone Encounter - Quin Jack RN - 12/31/2022 3:16 PM EST Returned call to Marilee at [facility]. Marilee wanted verbal order for PT twice a week. Marilee informed that [facility] was called and VO was given last week. Marilee verbalized understanding and agrees with plan. * Telephone Encounter - Konrad Josesito - 12/31/2022 10:59 AM EST Tc from marilee with [facility] requesting care of plan. Please contact marilee at [phone] documented in this encounter Plan of Treatment Upcoming Encounters Date Type Department Care Team (Late st Contact Info) Description 04/11/2025 11:15 AM EDT Office Visit [facility] MEDICINE [address] [place] [address] Flor Marie MD [address] [place] [address] documented as of this encounter Visit Diagnoses Not on filedocumented in this encounter Care Teams School Patrol Relationship Specialty Start Date End Date Carolyn Ceballos FNP PCP - General Family Medicine 07/02/22 05/17/23 Flor Marie MD [address] [place] [address] PCP - General Internal Medicine 05/18/23 [facility] 01/17/25 documented as of this encounter
--- OUTSIDE RECORDS SUMMARY | 2025-02-20 13:04 | XMS_ITS | Encounter Summary ---
Author Organization [employer] Address [address] [place] [address] Care Team Providers Care Backside Grinder Name Role Phone Flor Marie MD Primary Care Pro vider Reason for Visit * Reason Onset Date Comments Hospital Follow-up 01/10/2025 Encounter Details Date Type Department Care Team ([facility] st Contact Info) Description 01/10/2025 Telephone [facility] MEDICINE [address] [place] [address] Flor Marie MD [address] [place] [address] Hospital Follow-up Social History Tobacco Use Types Packs/Day Years [...] encounter Miscellaneous Notes * Telephone Encounter - Adalberto Jolly - 01/10/2025 2:14 PM EST Tc from pt requesting a HDF appt. Hospital: [facility] Date of admission: 12/23/2024 Discharge date: 12/28/2024 Diagnosed: Congestive Heart Failure and Heart Attack *Send message to Jerm[facility] Clinical Care Coordinators documented in this encounter Plan of Treatment Upcoming Encounters Date Type Department Care Team (Late st Contact Info) Description 04/11/2025 11:15 AM EDT Office Visit [facility] MEDICINE [address] [place] [address] Flor Marie MD [address] [place] [address] documented as of this encounter Visit Diagnoses Not on filedocumented in this encounter Additional Health Concerns Assessment Noted Time PHQ-9 Depression Total Score: 19 023 2:14 PM EDT documented as of this encounter Care Teams Backside Grinder Relationship Specialty Start Date End Date Flor Marie MD [address] [place] [address] PCP - General Internal Medicine 05/18/23 [facility] 01/17/25 documented as of this encounter
--- OUTSIDE RECORDS SUMMARY | 2025-02-20 13:04 | XMS_ITS | Encounter Summary ---
Author Organization [employer] Address [address] [place] [address] Care Team Providers Care Footwear Factory Worker Name Role Phone Carolyn Ceballos Primary Care Provider +1- [phone] Flor Marie MD Primary Care Pro vider Encounter Details Date Type Department Care Team (Late st Contact Info) Description 11/05/2022 Telephone [facility] MEDICINE [address] [place] [address] Marguerite Medina RN Social History Tobacco Use Types Packs/Day Years [...] Description 04/11/2025 11:15 AM EDT Office Visit [facility] MEDICINE [address] [place] [address] Flor Marie MD [address] [place] [address] [phone] documented as of this encounter Visit Diagnoses Not on filedocumented in this encounter Care Teams Footwear Factory Worker Relationship Specialty Start Date End Date Carolyn Ceballos FNP PCP - General Family Medicine 07/02/22 05/17/23 Flor Marie MD [address] [place] [address] PCP - General Internal Medicine 05/18/23 [facility] 01/17/25 documented as of this encounter
--- OUTSIDE RECORDS SUMMARY | 2025-02-20 13:04 | XMS_ITS | Encounter Summary ---
Author Organization [employer] Address [address] [place] [address] [place] [address] Care Team Providers Care Strip Deburrer Name Role Phone Carolyn Ceballos Primary Care Provider +1- [phone] Flor Marie MD Primary Care Pro vider Reason for Visit * Reason Onset Date Comments FYI 01/12/2023 Encounter Details Date Type Department Care Team (Late st Contact Info) Description 01/12/2023 Telephone [facility] MEDICINE [address] [place] [address] Carolyn Ceballos FNP [address] [place] [address] Dept [place] [address] I Social History Tobacco Use Types Packs/Day Years Used Date Smoking Tobacco: Never Smokeless Tobacco: Never Comments Unknown Sex and Gender Information Value [...] encounter Miscellaneous Notes * Telephone Encounter - Aleksandr Lopez - 01/12/2023 11:04 AM EST Tc from Marguerite with Physical therapy, reporting that pt is denying physical therapy for today 01/12/2023 and does not want to r/s. If an questions pleaser contact Marguerite at [phone] documented in this encounter Plan of Treatment Upcoming Encounters Date Type Department Care Team (Late st Contact Info) Description 04/11/2025 11:15 AM EDT Office Visit [facility] MEDICINE [address] [place] [address] Flor Marie MD [address] [place] [address] documented as of this encounter Visit Diagnoses Not on filedocumented in this encounter Care Teams Strip Deburrer Relationship Specialty Start Date End Date Carolyn Ceballos FNP PCP - General Family Medicine 07/02/22 05/17/23 Flor Marie MD [address] [place] [address] PCP - General Internal Medicine 05/18/23 [email or web address] documented as of this encounter
--- OUTSIDE RECORDS SUMMARY | 2025-02-20 13:04 | XMS_ITS | Encounter Summary ---
Author Organization [employer] Address [address] [place] [address] Care Team Providers Care Training Officer Name Role Phone Flor Marie MD Primary Care Pro vider Reason for Visit * Reason Onset Date Comments FYI 04/08/2024 Verbal Orders 04/08/2024 Hospital Follow-up 04/08/2024 Encounter Details Date Type Department Care Team (Late st Contact Info) Description 04/08/2024 Telephone [facility] MEDICINE [address] [place] [address] Flor Marie MD [address] [place], [place] [phone] FYI; Verbal Orders ; Hospital Follow-up Social History Tobacco Use Types [...] enough money to get more: Never True 10/ Transportation Answer Date Recorded In the past [...] encounter Miscellaneous Notes * Telephone Encounter - Kassidy Jeff RN - 04/11/2024 9:55 AM EDT TC placed to [place] with [facility] to give VO to start PT. Pt is currently receiving nursing twice a week for one week and then once a week for six weeks. Cherelle also wants PCP to be aware of the reaction between Plavix and Eliquis. documented in this encounter Plan of Treatment Upcoming Encounters Date Type Department Care Team (Late st Contact Info) Description 04/11/2025 11:15 AM EDT Office Visit [facility] MEDICINE [address] [place] [address] Flor Marie MD [address] [place] [address] documented as of this encounter Visit Diagnoses Not on filedocumented in this encounter Additional Health Concerns Assessment Noted Time PHQ-9 Depression Total Score: 19 023 2:14 PM EDT documented as of this encounter Care Teams Training Officer Relationship Specialty Start Date End Date Flro Marie MD [address] [place] [address] PCP - General Internal Medicine 05/18/23 [facility] 01/17/25 documented as of this encounter
--- OUTSIDE RECORDS SUMMARY | 2025-02-20 13:04 | XMS_ITS | Encounter Summary ---
Author Organization [employer] Address [address] [place] [address] 7 [place] [address] Care Team Providers Care Organisational Psychologist Name Role Phone Carolyn Ceballos Primary Care Provider +1- [phone] Flor Marie MD Primary Care Pro vider Reason for Visit * Reason Onset Date Comments FYI 01/23/2023 Encounter Details Date Type Department Care Team (Late st Contact Info) Description 01/23/2023 Telephone [facility] MEDICINE [address] [place] [address] Carolyn Ceballos FNP [address] [place] [address] Dept [place] [address] I Social History Tobacco Use Types Packs/Day [...] suspected to have Coronavirus/COVID-19? No / Unsure 01/19/2023 4:39 PM EDT documented as of this encounter Miscellaneous Notes * Telephone Encounter - Aleksandr Chatmanrero - 01/23/2023 9:08 AM EDT Tc from Mati with [facility] advising that pt has refuse all visits this week 01/19-01/23/2023. Mati advise if pt can't been seen in within next week, pt will be discharged from Physical therapy. If any more concerns please contact Mati at [phone] documented in this encounter Plan of Treatment Upcoming Encounters Date Type Department Care Team (Late st Contact Info) Description 04/11/2025 11:15 AM EDT Office Visit [facility] MEDICINE [address] [place] [address] Flor Marie MD [address] [place] [address] documented as of this encounter Visit Diagnoses Not on filedocumented in this encounter Care Teams Organisational Psychologist Relationship Specialty Start Date End Date Carolyn Ceballos FNP PCP - General Family Medicine 07/02/22 05/17/23 Flor Marie MD [address] [place] [address] PCP - General Internal Medicine 05/18/23 [facility] 01/17/25 documented as of this encounter
--- OUTSIDE RECORDS SUMMARY | 2025-02-20 13:04 | XMS_ITS | Encounter Summary ---
Author Organization [employer] Address [address] [place] [phone] Care Team Providers Care Senior Credit Officer Name Role Phone Carolyn Ceballos AGER TENDER Primary Care Provider [phone] Flor Marie MD Primary Care Pro vider Encounter Details Date Type Department Care Team (Late st Contact Info) Description 11/25/2022 Orders Only [facility] [address] [place] [address] [phone] Allegra Saravia LPN Social History Tobacco Use Types Packs/Day Years [...] 11:15 AM EDT Office Visit [facility] [address] [place] [address] [phone] Flor Marie MD [address] [place] [address] [phone] documented as of this encounter Procedures Procedure Name Priority Date/Time Associated Diagnosis Comments HIGH SENSITIVITY TROPONIN I Routine 12/25/2022 4:57 PM EST URINALYSIS, COMPLETE, WITH REFLEX TO CULTURE Routine 12/25/2022 3:56 PM EST HIGH SENSITIVITY TROPONIN I Routine 12/25/2022 1:59 PM EST CBC WITH AUTO DIFFERENTIAL Routine 12/25/2022 1:59 PM EST PROTHROMBIN TIME-INR Routine 12/25/2022 1:59 PM EST B TYPE NATRIURETIC PEPTIDE (BNP) Routine 12/25/2022 1:59 PM EST MAGNESIUM Routine 12/25/2022 1:59 PM EST LIPASE Routine 12/25/2022 1:59 PM EST HEPATIC FUNCTION PANEL Routine 12/25/2022 1:59 PM EST BASIC METABOLIC PANEL Routine 12/25/2022 1:59 PM EST INFLUENZA A B2 ID NOW (SANDHU) Routine 12/25/2022 1:33 PM EST COVID-19 ID NOW (SANDHU) Routine 12/25/2022 1:33 PM EST documented in this encounter Results * (ABNORMAL) HIGH SENSITIVITY TROPONIN I (12/25/2022 4:57 PM EST) TROPONIN I HIGH SENSITIVITY 112.3(HH) <3.5 - 17.0 ng/L [facility] Comment:Critical value for t est(s): TROP Results called to delroy back by: ADRIANO Person calling: DARNELL Date:12/25/22 Time: 1813The [facility]hu high sensitivity Troponin-I results should beused in conjunction with other diagnostic information suchas ECG, clinical observations and information, and patientsymptoms to aid in the diagnosis of CO. 12/25/2022 4:57 PM EST 12/25/2022 5:00 PM EST us [facility] External Provider LAB BLO OD ORDERABLES Final Result Performing Organization Address City/[facility]/ZIP Co de Phone Number [facility] [address], [place] [phone] * (ABNORMAL) Urinalysis, Complete, with Reflex to Culture (12/25/2022 3:56 PM EST) Color Urine RED [facility] Appearance Urine Cloudy [facility] PH 6.0 5.0 - 9.0 [facility] Glucose Urine UA Negative Negative mg/dL [facility] Urine Blood Large (3+)(A) Negative [facility] Specific Capulin - Urine 1.010 1.005 - 1.025 [facility] Urine Protein 30 (1+)(A) Neg-Trace mg/dL [facility] Urine Ketones Negative Negative mg/dL [facility] Nitrite Urine Negative Negative [facility] Leukocyte Esterase Urine Trace(A) Negative [facility] RBC Urine >20(A) 0 - 2 /HPF [facility] Urine WBC 0-5 0 - 5 /HPF [facility] Urine Squamous Epithelial Cell 0-2 0 - 2 /HPF [facility] Urine Bacteria None Seen None Seen [facility] Hyaline Casts, Urine 0-2 0 - 2 /LPF [facility] 12/25/2022 3:56 PM EST 12/25/2022 4:00 PM EST Narrative [facility] - 12/25/2022 4:42 PM EST Urine, Clean Catch us [facility] External Provider LAB URI NE ORDERABLES Final Result Performing Organization Address [facility] Co de Phone Number [facility] [address], [place] [phone] * (ABNORMAL) HIGH SENSITIVITY TROPONIN I (12/25/2022 1:59 PM EST) TROPONIN I HIGH SENSITIVITY 100.6(HH) <3.5 - 17.0 ng/L [facility] Comment:Critical value for H S-TnI: Results called to and read backby: MONICO Person calling: ANTHONY Date: 12/25/22 Time: 1442The [facility] high sensitivity Troponin-I results should beused in conjunction with other diagnostic information suchas ECG, clinical observations and information, and patientsymptoms to aid in the diagnosis of CO. 12/25/2022 1:59 PM EST 12/25/2022 2:02 PM EST [facility] External Provider LAB BLO OD ORDERABLES Final Result Performing Organization Address [facility] Co de Phone Number [facility] [address] [place] [phone] * (ABNORMAL) B Type Natriuretic Peptide (BNP) (12/25/2022 1:59 PM EST) Pathologist [facility] B Type Natriuretic Peptide 867(H) <100 pg/mL [facility] Comment:For those patients w ho are being treated with Natrecor(nesiritide, recombinant BNP), BNP testing should beperformed at least two hours post treatment in order toensure that only endogenous levels of BNP are detected. 12/25/2022 1:59 PM EST 12/25/2022 2:02 PM EST [facility] External Provider LAB BLO OD ORDERABLES Final Result Performing Organization Address [facility] Co de Phone Number [facility] [address] [place] [address] [phone] * Lipase (12/25/2022 1:59 PM EST) Lipase 24 8 - 78 U/L [facility] 12/25/2022 1:59 PM EST 12/25/2022 2:02 PM EST [facility] External Provider LAB BLO OD ORDERABLES Final Result Performing Organization Address [facility]/ZIP Co de Phone Number [facility] [address] [place] [phone] * Magnesium (12/25/2022 1:59 PM EST) Magnesium 2.0 1.6 - 2.6 mg/dL [facility] 12/25/2022 1:59 PM EST 12/25/2022 2:02 PM EST [facility] External Provider LAB BLO OD ORDERABLES Final Result [facility] [address] [place] [phone] * (ABNORMAL) Basic Metabolic Panel (12/25/2022 1:59 PM EST) Pathologist [facility] Sodium 140 135 - 145 mmol/L [facility] Potassium 4.1 3.3 - 5.1 mmol/L [facility] Chloride 105 96 - 108 mmol/L [facility] Carbon Dioxide 24 22 - 29 mmol/L [facility] Anion Gap 15 12 - 20 [facility] Urea Nitrogen (BUN) 19(H) 9 - 16 mg/dL [facility] Creatinine, Serum 0.90 0.5 - 1.4 mg/dL [facility] Creatinine Clr Calc Pharmacy 53.9 [facility] Comment:Provided height and weight: 157.48 cm,90.718 kg.eGFR (calculated from the MDRD study equation) and eCrCl(calculated from the Cockcroft-Gault equation) are based ondifferent parameters and may not yield comparable results.If eCrCl result is absurd, please check patient'sheight/weight. Estimated Glomerular Filt Rate >60 [facility] Comment:NOTE: For -Am erican individuals, multiply the result by 1.210.Chronic Kidney Disease: Estimated GFR < 60 mL/min/[id number] Kidney Disease: Estimated GFR < 15 mL/min/1.73m2 Glucose 255(H) 60 - 115 mg/dL [facility] Calcium 9.0 8.4 - 10.2 mg/dL [facility] 12/25/2022 1:59 PM EST 12/25/2022 2:02 PM EST [facility] External Provider LAB BLO OD ORDERABLES Final Result Performing Organization Address [facility] Co de Phone Number [facility] [address] [place] [phone] * (ABNORMAL) Hepatic Function Panel (12/25/2022 1:59 PM EST) Bilirubin, Total 0.5 0.0 - 1.0 mg/dL [facility] Bilirubin, Direct 0.2 0.0 - 0.5 mg/dL [facility] Aspartate Amino Transferase 37(H) 5 - 31 U/L [facility] Alanine Aminotransferase 28 0 - 31 U/L [facility] Total Protein 7.2 6.5 - 8.0 g/dL [facility] Albumin Level 4.2 3.5 - 5.0 g/dL [facility] Alkaline Phosphatase 93 39 - 117 U/L [facility] 12/25/2022 1:59 PM EST 12/25/2022 2:02 PM EST [facility] External Provider LAB BLO OD ORDERABLES Final Result Performing Organization Address [facility] Phone Number [facility] [address] [place] [phone] * Prothrombin Time-INR (12/25/2022 1:59 PM EST) Prothrombin Time 13.0 10.0 - 13.1 SEC [facility] INTERNATIONAL NORM RATIO 1.1 0.9 - 1.1 [facility] Comment:INTERNATIONAL NORMAL IZED RATIO (INR) REFERENCE RANGES Reference RangeFor patients not on anticoagulant therapy: 0.9 - 1.1INR ranges for oral anticoagulanttherapy:For prevention and treatment of venous thrombosis and pulmonary embolism: 2.0 - 3.0For acute myocardial infarction with aspirin therapy: 2.0 - 3.0For acute myocardial infarction without aspirin therapy: 3.0 - 4.0For patients with mechanical prosthetic heart valves: 2.5 - 3.5 12/25/2022 1:59 PM EST 12/25/2022 2:02 PM EST us [facility] External Provider LAB BLO OD ORDERABLES Final Result [facility] [address] [place] [phone] * (ABNORMAL) CBC auto differential (12/25/2022 1:59 PM EST) White Blood Count 6.0 4.8 - 10.8 X10*3/uL [facility] Red Blood Count 4.00(L) 4.20 - 5.50 X10*6/uL [facility] Hemoglobin 11.1(L) 12.0 - 16.0 g/dl [facility] Hematocrit 34.9(L) 37.0 - 47.0 % [facility] Mean Corpuscular Volume 87.3 80.0 - 98.0 fL [facility] Mean Corpuscular Hemoglobin 27.8 27.0 - 33.0 pg [facility] Mean Corpuscular HGB Conc 31.8 31.0 - 35.0 g/dl [facility] Red Cell Distribution Width 12.7 11.0 - 16.0 % [facility] Platelet Count 258 160 - 400 X10*3/uL [facility] Mean Platelet Volume 9.9 9.4 - 12.3 fL [facility] Neutrophils Percent Auto 84.1(H) 45 - 73 % [facility] Imm Gran Pct Auto 0.7(H) 0.0 - 0.4 % [facility] Lymphocytes Percent Auto 6.6(L) 20 - 40 % [facility] Monocytes Percent Auto 8.1 2 - 11 % [facility] Eosinophils Percent Auto 0.2 0 - 4 % [facility] Basophils Percent Auto 0.3 0 - 2 % [facility] NRBC Pct Auto 0.0 0.0 - 0.2 /100WBC [facility] Neutrophils Absolute Auto 5.0 2.0 - 8.3 x10*3/uL [facility] Imm Gran Abs Auto 0.04(H) 0.00 - 0.03 X10*3/uL [facility] Lymphocytes Absolute Auto 0.4(L) 1.2 - 4.9 X10*3/uL [facility] Monocytes Absolute Auto 0.5 0.1 - 1.2 X10*3/uL [facility] Eosinophils Absolute Auto 0.0 0.0 - 0.4 X10*3/uL [facility] Basophils Absolute Auto 0.0 0.0 - 0.2 X10*3/uL [facility] NRBC Abs Auto 0.000 0.0 - 0.012 X10*3/uL [facility] 12/25/2022 1:59 PM EST 12/25/2022 2:02 PM EST us [facility] External Provider LAB BLO OD ORDERABLES Final Result [facility] [address] [place] [phone] * Influenza A B2 ID NOW (Ghost) (12/25/2022 1:33 PM EST) IDNOW SERIAL# [id number] [facility] Influenza A Negative Negative [facility] Influenza B2 Negative Negative [facility] Influenza A B2 Note See Note [facility] Comment:The Sandhu ID NOW In fluenza A B2 test is used for thequalitative detection of influenza A and B from patientswith signs and symptoms of respiratory infection.Negative results do not preclude influenza virus infectionand should not be used as the sole basis for diagnosis,treatment or other patient management decisions.There is a risk of false negative results due to thepresence of variants in the viral targets of the assay, lowlevels of virus in the specimen and co- infection withRespiratory Syncytial Virus. 12/25/2022 1:33 PM EST 12/25/2022 1:37 PM EST [facility] Exter nal Provider LAB MICROBIOLOGY - GENERAL ORDERABLES Final Result [facility] [address] [place] [address] [phone] * (ABNORMAL) COVID-19 ID NOW (SANDHU) (12/25/2022 1:33 PM EST) IDNOW SERIAL# [id number] [facility] COVID-19 TEST Positive (A) Negative [facility] COVID-19 NOTE See Note [facility] Comment: Results are for the identification of SARS-CoV2 RNA. TheSARS-CoV2 RNA is generally detectable in respiratory samplesduring the acute phase of infection. Positive results areindicative of the presence of SARS-CoV-2 RNA; clinicalcorrelation with patient history and other diagnosticinformation is necessary to determine patient infectionstatus. Positive results do not rule out bacterial infectionor co- infection with other viruses.Testing facilities within the [facility] and [facility] are required to report all positive results tothe appropriate public health authorities.Negative results should be treated as presumptive and, ifinconsistent with clinical signs and symptoms or necessaryfor patient management, should be tested with differentauthorized or cleared molecular tests. Negative results donot preclude SARS-CoV2 RNA infection and should not be usedas the sole basis for patient management decisions. Negativeresults should be considered in the context of a patient'srecent exposures, history and the presence of clinical signsand symptoms consistent with COVID-19.This test has been authorized by the FDA under an EmergencyUse Authorization (EUA) for use by authorized laboratories.Testing performed on the Sandhu ID NOW utilizing NAAT. 12/25/2022 1:33 PM EST 12/25/2022 1:37 PM EST [facility] Exter nal Provider LAB MOLECULAR DIAGNOSTICS ORDERABLES Final Result [facility] [address] [place] [address] [phone] documented in this encounter Visit Diagnoses Not on filedocumented in this encounter Care Teams Senior Credit Officer Relationship Specialty Start Date End Date Carolyn Ceballos FNP PCP - General Family Medicine 07/02/22 05/17/23 Flor Marie MD [address] [place] [address] PCP - General Internal Medicine [facility] documented as of this encounter
--- OUTSIDE RECORDS SUMMARY | 2025-02-20 13:04 | XMS_ITS ---
Author Name Marya Collins NP Address [address] [place] [address] Phone [phone] [facility] Care Team Providers Care Business Analyst Project Manager Name Role Phone Marya Collins Unavailable [phone] Unavailable Unavailable Unavailable Unavailable Unavailable Unavailable Unavailable Unavailable [phone] [facility] [place] Unavailable [phone] [facility], [facility] Unavailable Reason for Referral Not Available Allergies, adverse reactions, alerts Allergen Type Reaction Severity Status Onset Date Singulair Allergy to substance (disorder) unknown Unknown Active N/A Gabapentin Allergy to substance (disorder) Unknown Active N/A Gabapentin Allergy to substance (disorder) dizziness Unknown Active N/A History of medication use Medication Class Instructions Start Date End Date Albuterol Sulfate (2.5 mg/3ML) 0.083% Nebulization Solution INHALE 1 AMPULE USING A NEBULIZER FOUR TIMES DAILY NEEDED 2022-03-13 No Data Available Aspirin Low Dose 81 mg Tab delayed rel TAKE 1 TABLET BY MOUTH EVERY DAY 2022-04-01 No Data Available Bisacodyl EC 5 mg Tab delaye d rel TAKE 2 TABLETS BY MOUTH EVERY DAY AT BEDTIME 2022-03-18 2023-05-01 dilTIAZem ER Coated Beads 18 0 mg Cap ER 24hr TAKE 1 CAPSULE BY MOUTH EVERY DAY 2022-03-10 2023-06-11 Carvedilol 3.125 mg Tab TAKE 1 TABLET BY MOUTH TWICE DAILY WITH FOOD 2021-11-27 2023-06-11 Cetirizine 10 mg Tab TAKE 1 TABLET BY MO [facility] EVERY DAY NEEDED FOR ALLERGIES 2022-02-18 No Data Available Docusate Sodium 100 mg Cap TAKE 1 CAPSUL E BY MOUTH TWICE DAILY PRN 2022-03-18 No Data Available Ferrous Gluconate 324 (37.5 Fe) MG Tab TAKE 1 TABLET BY MOUTH EVERY DAY 2021-10-02 2023-05-01 Fluticasone Propionate 50 MCG/ACT Suspension Nasal INSTILL 1 SPRAYS IN EACH NOSTRIL ONCE DAILY 2022-03-05 No Data Available Furosemide 40 mg Tab TAKE 1 TABLET daily prn 2022-03-10 5 No Data Available Gas Relief Extra Strength 12 5 mg Cap TAKE 1 CAPSULE BY MOUTH THREE TO FOUR TIMES DAILY NEEDED FOR INDIGESTION 2022-04-01 2023-06-19 metFORMIN 850 mg Tab TAKE 1 TABLET BY MO [facility] TWICE DAILY IN THE MORNING AND IN THE EVENING WITH MEALS 2022-03-04 No Data Available Hydrocortisone 1 % Crm APPLY A THIN LAYE R TO AFFECTED AREA(S) TWICE DAILY, RUB IN GENTLY AND COMPLETELY 2022-06-03 No Data Available Alendronate Sodium 70 mg Tab take 1 tabl et once a week with 6 to 8 oz of water 30 min before first food of day. do not lie down for 30 minutes 2022-05-30 2023-06-19 traMADol 50 mg Tab TAKE 1 TABLET BY EMERITA TH THREE TIMES DAILY NEEDED FOR PAIN 2022-03-14 No Data Available Dicyclomine 10 mg Cap TAKE 1 CAPSULE BY MOUTH TWICE DAILY NEEDED FOR ABDOMINAL PAIN 2022-03-18 2023-05-01 Procto-Med HC 2.5 % Crm APPLY RECTALLY 2 TO 4 TIMES DAILY NEEDED FOR HEMORRHOIDS 2022-07-10 No Data Available Senna 8.6 mg Tab TAKE 2 TABLET BY EMERITA TH QD NEEDED FOR CONSTIPATION 2022-07-10 No Data Available OneTouch Delica Plus [id number] Miscellaneous TEST BLOOD SUGAR TWICE DAILY 2022-07-16 No Data Available OneTouch Verio Flex System w/Device Kit USE DIRECTED 2022-07-16 No Data Available OneTouch Verio Strip TEST BLOOD SUGAR TW ICE DAILY 2022-07-16 No Data Available Sertraline 50 mg Tab TAKE 1/2 TABLET BY MOUTH EVERY DAY FOR SIX DAYS THEN INCREASE TO 1 TABLET DAILY 2021-10-02 2023-05-01 Advair Diskus 250-50 MCG/ACT Aerosol Powder Breath Activated INHALE 1 PUFF BY MOUTH TWICE DAILY 2022-07-16 2023-05-01 SM Fiber Laxative 500 mg Tab TAKE 1 TABL ET BY MOUTH EVERY DAY WITH UN GLASS OF WATER FULL 2022-03-18 No Data Available Jardiance 25 mg Tab TAKE 1 TABLET BY EMERITA TH EVERY MORNING 2021-10-03 2023-05-01 Losartan Potassium-HCTZ 100/12.5 mg Tab TAKE 1 TABLET BY MOUTH EVERY DAY 2022-04-08 2023-05-01 Acetaminophen Extra Strength 500 mg Tab TAKE 2 TABLETS BY MOUTH EVERY 6 HOURS NEEDED FOR PAIN 2022-07-29 No Data Available pyridoxine (vitamin B6) 100 mg tablet TAKE 1 TABLET BY MOUTH EVERY DAY 2022-08-11 2024-10-11 Famotidine 20 mg Tab TAKE 1 TABLET BY MO [facility] TWICE DAILY 2022-09-08 No Data Available Losartan Potassium 25 mg Tab TAKE 1 TABL ET BY MOUTH EVERY DAY 2022-09-08 2023-06-11 Atorvastatin Calcium 80 mg Tab TAKE 1 TABLET BY MOUTH EVERY DAY 2022-05-05 No Data Available HM ClearLax 17 GM/SCOOP Powder TAKE 17 GM MIXED IN 8 OUNCES OF WATER ONCE DAILY 2022-10-27 No Data Available predniSONE 20 mg Tab TAKE 1 TABLET BY MO [facility] ONCE DAILY. 2022-12-24 2023-05-01 Dexamethasone 2 mg Tab TAKE 3 TABLETS (6 MG) BY MOUTH ONCE DAILY 2022-12-27 2023-05-01 Tamsulosin 0.4 mg Cap TAKE 1 CAPSULE BY MOUTH EVERY DAY 2023-01-02 2023-06-19 Cefuroxime Axetil 500 mg Tab TAKE 1 TABL ET BY MOUTH TWICE DAILY 2023-01-02 No Data Available Oxybutynin Chloride 5 mg Tab TAKE 1 TABL ET BY MOUTH EVERY 8 HOURS NEEDED BLADDER SPASMS 2023-01-02 2023-06-19 Ferrous Gluconate 324 (38 Fe ) MG Tab TAKE 1 TABLET BY MOUTH EVERY OTHER DAY 2023-03-09 No Data Available oxyCODONE 5 mg Tab TAKE 1 TABLET BY EMERITA EVERY 6 HOURS NEEDED FOR SEVERE PAIN 2023-03-10 No Data Available Myrbetriq 50 mg Tab ER 24hr TAKE 1 TABLE T BY MOUTH DAILY 2023-03-16 No Data Available Metoprolol Succinate ER 50 m g Tab ER 24hr TAKE 1 TABLET BY MOUTH EVERY DAY 2023-04-14 No Data Available Clopidogrel Bisulfate 75 mg Tab TAKE 1 TABLET BY MOUTH EVERY DAY 2023-04-14 No Data Available Amoxicillin-Pot Clavulanate 875/125 mg Tab TAKE 1 TABLET BY MOUTH EVERY 12 HOURS FOR 1 DAY 2023-04-19 No Data Available Augmentin 875mg Tab 1 tablet Q12H x 1 day 2023-05-01 2023-06-11 Tylenol 325 mg Tab 2tablet orally Q6H PRN pain 2023-04 No Data Available Allopurinol 100 mg Tab 1 tablet orally QD 2023-05-01 2023-06-19 Aspirin EC 81 mg Tab delayed rel take 1 tablet by mouth daily 2023-05-01 2023-06-19 Calcium Citrate 250 mg Tab 1 tablet orally daily 05-012023-06-19 Advair Diskus 250-50 MCG/ACT Aerosol Powder Breath Activated Inhalation inhale 1 puff by mouth and INTO THE LUNGS twice a day Rinse mouth after use 2023-01-15 No Data Available Pradaxa 150 mg Cap 1 capsule orally one time qd 2023-05-01 2023-06-11 Diflucan 150 mg Tab Take 1 tablet PO qd 2023-05-01 2 Melatonin 5 mg Cap one tablet at bedtime 2023-05-01 2023-06-19 Omeprazole 20 mg Cap delayed rel 1 daily 2023-05-01 2023-06-19 rOPINIRole 2 mg Tab one orally at night 2023-05-01 2 traMADol 50 mg Tab take one pill po q 8 hours as needed for pain 2023-05-01 No Data Available Lidocaine 5 % Patch 1 patch topically to affected area daily remove after 12 hours PRN Pain 2023-05-01 No Data Available Eliquis 5 mg Tab 1 Tablet twice daily 2022-12-27 No Data Available Lidocaine 4 % Crm 1 application topica lly to affected area 3 times per day as needed 2023-08-20 No Data Available Deep Sea Nasal Baxter 0.65 % Solution USE 1 SPRAY IN EACH NOSTRIL NEEDED FOR NASAL CONGESTION 2023-06-17 No Data Available Gas Relief Extra Strength 12 5 mg Cap TAKE 1 TABLET BY MOUTH THREE OR FOUR TIMES DAILY NEEDED FOR INDIGESTION 2023-04-07 No Data Available Clotrimazole 1 % Crm APPLY TOPICALLY TO AFFECTED AREA(S) TWICE DAILY 2023-07-20 No Data Available DULoxetine 30 mg Cap delayed rel TAKE 1 CAPSULE BY MOUTH DAILY IN THE MORNING DO NOT BREAK, CRUSH, DISSOLVE OR CHEW 2023-07-20 No Data Available traZODone 100 mg Tab TAKE 1 TABLET BY MO [facility] EVERY DAY AT BEDTIME 2023-11-03 No Data Available Cephalexin 500 mg Cap TAKE 1 CAPSULE BY MOUTH TWICE DAILY FOR 7 DAYS 2023-11-10 No Data Available Alcohol Prep 70 % Pad USE DIRECTED AT NOON AND IN THE EVENING 2023-11-18 No Data Available Triamcinolone Acetonide 0.1 % Oint APPLY 1 GRAM TOPICALLY TO AFFECTED AREA(S) TWICE DAILY DIRECTED 2023-11-27 No Data Available hydrOXYzine 10 mg Tab TAKE 1 TABLET BY M OUTH EVERY TWELVE HOURS NEEDED FOR ITCHING 2023-11-27 No Data Available Minerin Creme Crm APPLY TO THE AFFECTE D AREA(S) EVERY DAY NEEDED DRY SKIN 2023-11-27 No Data Available Permethrin 5 % Crm APPLY BY TOPICAL ROU TE. THOROUGHLY MASSAGE INTO SKIN FROM HEAD TO SOLES OF FEET ONCE. LEAVE ON FOR 8 TO 14 HOURS, THEN REMOVE BY THOROUGH WASHING REPEAT IN 2 WEEKS 2024-03-02 No Data Available Ketoconazole 2 % Shampoo APPLY TO SCALP AND LEAVE ON FOR 5 MINUTES THEN RINSE OFF TWICE A WEEK 2024-03-02 No Data Available Vitamin D3 50 mcg (2,000 unit) capsule TAKE 1 CAPSULE BY MOUTH EVERY DAY 2024-03-16 No Data Available calcium citrate 315 mg calcium-vitamin D3 6.25 mcg (250 unit) tablet TAKE 1 TABLET BY MOUTH TWICE DAILY 2024-03-16 2024-10-11 amLODIPine Besylate 5 mg Tab TAKE 1 TABL ET BY MOUTH ONCE DAILY 2024-04-07 No Data Available Fiber-Lax 625 mg Tab TAKE 1 TABLET BY MO [facility] EVERY DAY 2024-04-21 No Data Available Bisacodyl EC 5 mg Tab delaye d rel TAKE 2 TABLETS BY MOUTH EVERY DAY AT BEDTIME 2024-04-21 No Data Available predniSONE 20 mg Tab TAKE 2 TABLETS BY M OUTH EVERY DAY FOR 5 DAYS 2024-05-06 2024-10-11 blood pressure test kit-larg e cuff USE TO CHECK BLOOD PRESSURE TWICE DAILY 2024-05-06 No Data Available guaiFENesin-Codeine 100/10 mg/5ML Solution GIVE 10 ML BY MOUTH EVERY 4 TO 6 HOURS NEEDED FOR COUGH 2024-05-31 No Data Available Calcium Citrate + D3 Maximum 315/6.25 mg-MCG Tab TAKE 1 TABLET BY MOUTH TWICE DAILY 2024-06-21 No Data Available Diclofenac Sodium 1 % Gel APPLY 1 GRAM T OPICALLY TO AFFECTED AREA(S) THREE TIMES DAILY IN THE MORNING, AT NOON, AND AT BEDTIME NEEDED FOR PAIN 2024-07-22 No Data Available Azithromycin 500 mg Tab TAKE 1 TABLET BY MOUTH DAILY FOR 3 DAYS 2024-09-30 No Data Available calcium 315 mg (as citrate)-vitamin D3 6.25 mcg (250 unit) tablet TAKE 1 TABLET BY MOUTH TWICE DAILY 2024-06-21 No Data Available Problem List Problem Status Onset Date Resolved Date URI (upper respiratory infection) Resolved 2023-122024-09-30 Toe pain, bilateral Active 2023-06-19 N/A dizziness, andStatus post fall Active 2023-11-27 N/A Osteoporosis Active 2024-09-30 N/A Degenerative joint disease i nvolving multiple joints Active 2024-09-30 N/A Frequent falls Active 2024-03-15 N/A Encounter for other specified aftercare Resolved 2 2024-10-11 Urgency of urination Active 2024-10-11 N/A GERD without esophagitis Active 2024-10-11 N/A History of non-ST elevation myocardial infarction (NSTEMI) Active 2024-10-11 N/A Major depressive disorder wi single episode, in partial remission Active 2024-10-11 N/A Cognitive impairment Active 2024-10-11 N/A Morbid (severe) obesity due to excess calories Active 2023-06-19 N/A Emphysema, unspecified Active 2024-10-20 N/A Hypercoagulable state due to persistent atrial fibrillation Active 2023-07-03 N/A Anemia Active 2024-01-20 N/A Type 2 diabetes mellitus wit h stage 3b chronic kidney disease, without long-term current use of insulin, Diabetic neuropathy, Hyperlipidemia Active 2022-12-10 N/A Hypertensive heart and chron ic kidney disease with heart failureCongestive heart failuresecondary hyperaldosteronism Active 2022-12-10 N/A [facility] Active 2023-12-23 N/A Encounters Encounters Type Facility Date of Service Diagnosis/Co mplaint RN, CN or CP time with patient by phone; use with 1111F, BP, A1c or other CPTII codes [facility], ([place]) 04/20/2023 Encounter for other specifie d aftercare RN, CN or CP time with patient by phone; use with 1111F, BP, A1c or other CPTII codes [facility], ([place] 04/20/2023 RN, CN or CP time with patient by phone; use with 1111F, BP, A1c or other CPTII codes [facility], ([place]) 06/11/2023 Encounter for other specifie d aftercare RN, CN or CP time with patient by phone; use with 1111F, BP, A1c or other CPTII codes [facility], ([place]) 06/11/2023 New patient,40-59min; chronic exacerbation, 2 stable chronic or 1 acute illness add add modifier 95 for video (do not use for phone, instead use [id number]) [facility], ([place]) 06/19/2023 Type 2 diabetes mellitus wit h diabetic chronic kidney diseaseChronic kidney disease, stage 3bObesity, unspecifiedPain in right toe(s)Pain in left toe(s)Other persistent atrial fibrillationOther thrombophiliaHeart failure, unspecifiedSecondary hyperaldosteronismBody mass index (bmi) 33.0-33.9, adult New patient,40-59min; chronic exacerbation, 2 stable chronic or 1 acute illness add add modifier 95 for video (do not use for phone, instead use [id number]) [facility], ([place]) 06/19/2023 New patient,40-59min; chronic exacerbation, 2 stable chronic or 1 acute illness add add modifier 95 for video (do not use for phone, instead use [id number]) [facility], ([place]) 06/19/2023 New patient,40-59min; chronic exacerbation, 2 stable chronic or 1 acute illness add add modifier 95 for video (do not use for phone, instead use [id number]) [facility], ([place]) 06/19/2023 New patient,40-59min; chronic exacerbation, 2 stable chronic or 1 acute illness add add modifier 95 for video (do not use for phone, instead use [id number]) [facility], ([place]) 06/19/2023 New patient,40-59min; chronic exacerbation, 2 stable chronic or 1 acute illness add add modifier 95 for video (do not use for phone, instead use [id number]) [facility], ([place]) 06/19/20[place] New patient,40-59min; chronic exacerbation, 2 stable chronic or 1 acute illness add add modifier 95 for video (do not use for phone, instead use [id number]) [facility] ([place] 06/19/2023 No Data Available [facility]2023 Pain in right toe(s)Pain in left toe(s) No Data Available [facility] 08[place]2023 No Data Available [facility] 08[place]2023 No Data Available [facility] 09/[place]/2023 Pain in right toe(s)Pain in left toe(s) No Data Available [facility] 09[place]15/2023 No Data Available [facility]2023 History of fallingType 2 diabetes mellitus with diabetic chronic kidney diseaseChronic kidney disease, stage 3bOther problems related to medical facilities and other health care No Data Available [facility] 11/25/2023 No Data Available [facility] 11[place]2023 No Data Available [facility] 12/23/2023 Other specified counselingOt her problems related to medical facilities and other health care No Data Available [facility] 12/23/2023 No Data Available [facility] 12[place]24/2023 Acute upper respiratory infection, unspecified No Data Available [facility] 01/20/2024 Dizziness and giddinessHisto ry of falling No Data Available [facility] 01/20/2024 No Data Available [facility] 03/15/2024 Repeated fallsHistory of fallingDizziness and giddiness No Data Available [facility] ([place] 03/15/2024 Estab. patient 20-29min; 1 stable chronic or 2 minor; add add modifier 95 for video, modifier 93 for phone [facility], ([place] 04/13/2024 Hypertensive heart disease w ith heart failureHeart failure, unspecifiedSecondary hyperaldosteronismOther problems related to medical facilities and other health care Estab. patient 20-29min; 1 stable chronic or 2 minor; add add modifier 95 for video, modifier 93 for phone [facility], ([place] 04/13/2024 Estab. patient 20-29min; 1 stable chronic or 2 minor; add add modifier 95 for video, modifier 93 for phone [facility], ([place] 04/13/2024 No Data Available [facility], ([place] 09/30/2024 Pneumonia, unspecified organismType 2 diabetes mellitus with diabetic chronic kidney diseaseChronic kidney disease, stage 3bType 2 diabetes mellitus with diabetic neuropathy, unspecifiedHeart failure, unspecifiedSecondary hyperaldosteronismOther thrombophiliaOther persistent atrial fibrillationOther problems related to medical facilities and other health careHyp hrt & chr kdny dis w hrt fail and stg 1-4/unsp chr kdny No Data Available [facility], ([place] 09/30/2024 No Data Available [facility], ([place] 09/30/2024 Estab. patient 30-39min; chronic exacerbation, 2 stable chronic or 1 acute illness add add modifier 95 for video, (do not use for phone, instead use [id number]) [facility], ([place]) 10/11/2024 Type 2 diabetes mellitus wit h diabetic chronic kidney diseaseHyp hrt & chr kdny dis w hrt fail and stg 1-4/unsp chr kdnyChronic kidney disease, stage 3bType 2 diabetes mellitus with diabetic neuropathy, unspecifiedType 2 diabetes mellitus with other specified complicationHyperlipidemia, unspecifiedHeart failure, unspecifiedSecondary hyperaldosteronismObesity, unspecifiedOther thrombophiliaOther persistent atrial fibrillationPain in right toe(s)Pain in left toe(s)Repeated fallsHistory of fallingDizziness and giddinessOther problems related to medical facilities and other health careAnemia, unspecifiedMajor depressive disorder, single episode, in partial remissionBody mass index (bmi) 36.0-36.9, adultMorbid (severe) obesity due to excess caloriesEmphysema, unspecifiedAge-related osteoporosis without current pathological fracturePolyosteoarthritis, unspecifiedUrgency of urinationGastro-esophageal reflux disease without esophagitisOld myocardial infarctionOther symptoms and signs involving cognitive functions and awareness Estab. patient 30-39min; chronic exacerbation, 2 stable chronic or 1 acute illness add add modifier 95 for video, (do not use for phone, instead use [id number]) [facility], ([place]) 10/11/2024 Estab. patient 30-39min; chronic exacerbation, 2 stable chronic or 1 acute illness add add modifier 95 for video, (do not use for phone, instead use [id number]) [facility], ([place]) 10/11/2024 Estab. patient 30-39min; chronic exacerbation, 2 stable chronic or 1 acute illness add add modifier 95 for video, (do not use for phone, instead use [id number]) [facility], ([place]) 10/11/2024 Estab. patient 30-39min; chronic exacerbation, 2 stable chronic or 1 acute illness add add modifier 95 for video, (do not use for phone, instead use [id number]) [facility], ([place]) 10/11/2024 Estab. patient 30-39min; chronic exacerbation, 2 stable chronic or 1 acute illness add add modifier 95 for video, (do not use for phone, instead use [id number]) [facility], ([place]) 10/11/2024 Estab. patient 30-39min; chronic exacerbation, 2 stable chronic or 1 acute illness add add modifier 95 for video, (do not use for phone, instead use [id number]) [facility] ([place] 10[place]/20[place] Estab. patient 30-39min; chronic exacerbation, 2 stable chronic or 1 acute illness add add modifier 95 for video, (do not use for phone, instead use [id number]) [facility] ([place] 10/11/2024 Estab. patient 30-39min; chronic exacerbation, 2 stable chronic or 1 acute illness add add modifier 95 for video, (do not use for phone, instead use [id number]) [facility], ([place]) 10/11/2024 Estab. patient 10-29min; 1 minor problem; add add modifier 95 for video, modifier 93 for phone [facility] ([place]) 12/01/2024 Other persistent atrial fibrillationOther thrombophiliaAnemia, unspecifiedOther problems related to medical facilities and other health care Estab. patient 10-29min; 1 minor problem; add add modifier 95 for video, modifier 93 for phone [facility], ([place]) 12/01/2024 Vital Signs Date of Collection Vitals 2023-06-19 11:09:26 Height - 157.48 cmWe ight - 83.01 kgBody Mass Index (BMI) - 33.47 kg/m2BP Diastolic - 86.0 mm[Hg]BP Systolic - 151.0 mm[Hg] 2024-09-30 12:44:41 Height - 157.48 cmWe ight - 89.36 kgBody Mass Index (BMI) - 36.03 kg/m2BP Diastolic - 75.0 mm[Hg]BP Systolic - 160.0 mm[Hg] 2024-10-11 12:31:14 Height - 157.48 cmWe ight - 89.36 kgBody Mass Index (BMI) - 36.03 kg/m2BP Diastolic - 75.0 mm[Hg]BP Systolic - 160.0 mm[Hg] Social History Social History Social History Observation Description Effec tive Time Current Smoking Status Never smoker 2025-02-07 3 Sex Female History of Procedures Procedures Service Procedure code Service date Servicing provider Phone# RN, CN or CP time with patient by phone; use with 1111F, BP, A1c or other CPTII codes 17349 2023-04-20 No Data Available No Data Avai lable Medications prescribed in hospital were reviewed and reconciled against what they were taking prior to admission during today's visit. (1111F) 1111F 2023-04-20 No Data Available No Data Availa ble RN, CN or CP time with patient by phone; use with 1111F, BP, A1c or other CPTII codes [id number] 2023-06-11 No Data Available No Data Avai lable Medications prescribed in hospital were reviewed and reconciled against what they were taking prior to admission during today's visit. (1111F) 1111F 2023-06-11 No Data Available No Data Availa ble New patient,40-59min; chronic exacerbation, 2 stable chronic or 1 acute illness add add modifier 95 for video (do not use for phone, instead use [id number]) [id number] 2023-06-19 No Data Available No Data Availa ble Medication List Documented (1159F) 1159F 2023-06-19 No Data Available No Data Funmi ilable Medication Review by prescribing provider or pharmacist documented (1160F) 1160F 2023-06-19 No Data Available No Data Funmi ilable Advance Care Directive Advance care planning discussion documented in the medical record (1158F) 1158F 2023-06-19 No Data Available No Data Availa ble BMI obtained (3008F) 3008F 2023-06-19 No Data Availab le No Data Available Advance care planning discussed and documented ? advance care plan or surrogate decision-maker was documented in the medical record. (1123F) 1123F 2023-06-19 No Data Available No Data Availa ble Medications prescribed in hospital were reviewed and reconciled against what they were taking prior to admission during today's visit. (1111F) 1111F 2023-06-19 No Data Available No Data Availa ble No Data Available [id number] 2023-08-20 No Data Available No Data Available Pain Assessment - Pain Documented on a Pain Scale (1125F) 1125F 2023-08-20 No Data Available No Data Funmi ilable Medication List Documented (1159F) 1159F 2023-08-20 No Data Available No Data Funmi ilable No Data Available 2023-09-15 No Data Available No Data Available Medication List Documented (1159F) 1159F 2023-09-15 No Data Available No Data Funmi ilable No Data Available [id number] 2023-11-25 No Data Available No Data Available Medication List Documented (1159F) 1159F 2023-11-25 No Data Available No Data Funmi ilable Pain Assessment - Pain Documented on a Pain Scale (1125F) 1125F 2023-11-25 No Data Available No Data Funmi ilable No Data Available [id number] 2023-12-23 No Data Available No Data Available Medication List Documented (1159F) 1159F 2023-12-23 No Data Available No Data Funmi ilable No Data Available [id number] 2023-12-24 No Data Available No Data Available No Data Available [id number] 2024-01-20 No Data Available No Data Available Medication List Documented (1159F) 1159F 2024-01-20 No Data Available No Data Funmi ilable No Data Available [id number] 2024-03-15 No Data Available No Data Available Medication List Documented (1159F) 1159F 2024-03-15 No Data Available No Data Funmi ilable Estab. patient 20-29min; 1 stable chronic or 2 minor; add add modifier 95 for video, modifier 93 for phone [id number] 2024-04-13 No Data Available No Data Availa ble Medications prescribed in hospital were reviewed and reconciled against what they were taking prior to admission during today's visit. (1111F) 1111F 2024-04-13 No Data Available No Data Availa ble Medication List Documented (1159F) 1159F 2024-04-13 No Data Available No Data Funmi ilable No Data Available [id number] 2024-09-30 No Data Available No Data Available Medication List Documented (1159F) 1159F 2024-09-30 No Data Available No Data Funmi ilable BMI obtained (3008F) 3008F 2024-09-30 No Data Availab le No Data Available Estab. patient 30-39min; chronic exacerbation, 2 stable chronic or 1 acute illness add add modifier 95 for video, (do not use for phone, instead use [id number]) 43869 2024-10-11 No Data Available No Data Availa ble Medication List Documented (1159F) 1159F 2024-10-11 No Data Available No Data Funmi ilable Medication Review by prescribing provider or pharmacist documented (1160F) 1160F 2024-10-11 No Data Available No Data Funmi ilable Functional Status Assessed (1170F) 1170F 2024-10-11 No Data Available No Data Avail able BMI obtained (3008F) 3008F 2024-10-11 No Data Availab le No Data Available Advance Care Directive Advance care planning discussion documented in the medical record (1158F) 1158F 2024-10-11 No Data Available No Data Availa ble Advance care planning discussed and documented ? advance care plan or surrogate decision-maker was documented in the medical record. (1123F) 1123F 2024-10-11 No Data Available No Data Availa ble Most recent A1c (HbA1c) or GMI level <7% (3044F) 3044F 2024-10-11 No Data Available No Data Availa ble Pain Assessment - Pain Documented on a Pain Scale (1125F) 1125F 2024-10-11 No Data Available No Data Funmi ilable Estab. patient 10-29min; 1 minor problem; add add modifier 95 for video, modifier 93 for phone 00290 2024-12-01 No Data Available No Data Availa ble Medication List Documented (1159F) 1159F 2024-12-01 No Data Available No Data Funmi ilable Functional Status Functional Category Effective Dates ADLsDressing - Needs assista nceBathing - Needs assistanceToileting - Needs assistanceTransfers - Needs assistanceEating - IndependentiADLsShopping - Needs assistanceMedications - Needs assistanceHousekeeping - Needs assistanceCooking - Needs assistance 2023-07-03 Had fall in 09/20242024-10-11 Uses cane, walker 2024-10-11 Bedside commode, shower chair 2024-10-11 Mental Status Status Date A&Ox2 (confused about the day/time) 2023 Cognitively declining, per PCP may have dementia 2024-10-11 Assessments Date of Service Assessments 2023-06-19 11:09:26 Type 2 diabetes rose mary itus with stage 3b chronic kidney disease, without long-term current use of insulinToe pain, bilateralObesity (BMI 30-39.9)Hypercoagulable state due to persistent atrial fibrillationCongestive heart failure/secondary hyeraldosteronism 2023-08-20 08:24:32 Toe pain, bilateral 2023-09-15 11:10:00 Toe pain, bilateral 2023-11-25 12:52:28 Status post fallType 2 diabetes mellitus with stage 3b chronic kidney disease, without long-term current use of insulinOther problems related to medical facilities and other health care 2023-12-23 13:53:40 Other problems relat ed to medical facilities and other health care 2024-01-20 13:44:19 dizziness, andStatus post fall 2024-03-15 07:13:00 Frequent fallsdizzin ess, andStatus post fall 2024-04-13 14:43:06 Patient Education to avoid future hospitalization: Call [facility] if symptoms of illness develop.Other problems related to medical facilities and other health careHypertension withCongestive heart failure/secondary hyperaldosteronism 2024-09-30 12:44:41 Encounter for other specified aftercareType 2 diabetes mellitus with stage 3b chronic kidney disease, without long-term current use of insulin, Diabetic neuropathyHypertension withCongestive heart failure/secondary hyperaldosteronismHypercoagulable state due to persistent atrial fibrillation 2024-10-11 12:31:14 Type 2 diabetes rose mary itus with stage 3b chronic kidney disease, without long-term current use of insulin, Diabetic neuropathy, HyperlipidemiaHypertension withCongestive heart failure/secondary hyperaldosteronismObesity (BMI 30-39.9)Hypercoagulable state due to persistent atrial fibrillationToe pain, bilateralFrequent fallsdizziness, andStatus post fallOther problems related to medical facilities and other health careAnemiaOsteoporosisDegenerative joint disease involving multiple jointsMajor depressive disorder with single episode, in partial remissionUrgency of urinationGERD without esophagitisHistory of non-ST elevation myocardial infarction (NSTEMI)Cognitive impairmentEmphysema, unspecified 2024-12-01 06:30:20 Hypercoagulable stat e due to persistent atrial fibrillationAnemiaOther problems related to medical facilities and other health care Plan of Care Date of Service Plans 2023-06-11 13:05:15 06/19/2023 01:00 pm 2023-06-19 11:09:26 Medication Review by prescribing provider or pharmacist documented (1160F)Medication List Documented (1159F)Functional Status Assessed (1170F)Advance Care Directive Advance care planning discussion documented in the medical record (1158F)Televideo new patient,40-59min; chronic exacerbation, 2 stable chronic or 1 acute illness add modifier 95Pain Assessment - NO pain documented (1126F)Advance care planning discussed and documented ? advance care plan or surrogate decision-maker was documented in the medical record. (1123F)Medications prescribed in hospital were reviewed and reconciled against what they were taking prior to admission during today's visit. (1111F)Advance care planning discussed and documented in the medical record ? beneficiary/patient did not wish to or was unable to provide an advance care plan or name a surrogate decision-maker. (1124F)SBP >= 140DBP 80-89 (3079F)Continue to see PCP. Follow-up with [facility] as needed for any acute or disease education needs that may arise.A1C 7.0% on 06/19/2023FR 38 on 06/19/2023Ed re diet, lifestyleNot on any medications right now for DM.Has been using home remediesDid not tolerate gabapentinWill ask PCP re lyricaLidocaineOffered narcan but declined - rarely takes tramadol and rarely enough to be concernedBMI 33.47Ed re diet, activityOn Eliquismetoprolol, furosemideEd re fluid intakemonitor for fluid overload 2023-08-20 08:24:32 Phone (patient, pare nt, or guardian); 5-10 minutes of medical discussion (no modifier 95)Continue to see PCP. Follow-up with [facility] as needed for any acute or disease education needs that may arise 01/06.No redness, no swelling, no calor, no fever. Skin intact.Has been using home remediesDid not tolerate gabapentinAnother provider prescribed TramadolWill ask PCP re lyricaLidocaine creamOffered narcan but declined - rarely takes tramadol and rarely enough to be concernedWill FU w PCPCall CB PRN 2023-09-15 11:10:00 Phone (patient, pare nt, or guardian); 5-10 minutes of medical discussion (no modifier 95)Continue to see PCP. Follow-up with [facility] as needed for any acute or disease education needs that may arise 01/06.No redness, no swelling, no calor, no fever. Skin intact.Has been using home remediesDid not tolerate gabapentinAnother provider prescribed TramadolWifaye ask PCP re lyricaLidocaine cream09/15/2023tr reports she is not aware of any further problems, but is unsure (pt asleep). 2023-11-25 12:52:28 Phone (patient, pare nt, or guardian); 5-10 minutes of medical discussion (no modifier 95)Continue to see PCP. Follow-up with [facility] as needed for any acute or disease education needs that may arise 01/06.Fell around 11/21/2023.No head strike.Landed sitting down. Her back hurts. Will be seeing PCP shortly.Call CB PRN.A1C 7.0% on 3GFR 38 on 06/19/2023Ed re diet, lifestyleNot on any medications right now for DM.4Reports stable, though does not provide numbers.Please keep a log of FSBGCont tx.High risk memberHFDMMember to call for the following symptoms: Blood sugar <70/ Blood sugar >300/ Confusion or change in behavior/ Chest painPlanned intervention: Consider adding medication, changing meds. 2023-12-23 13:53:40 Phone (patient, pare nt, or guardian); 5-10 minutes of medical discussion (no modifier 95)Continue to see PCP. Follow-up with [facility] as needed for any acute or disease education needs that may arise 01/06.12/23/2023t was in ER recently but does not like to be the one to talk about her medical details, likes her dtr to handle it.No acute distress.will call dtr tomorrow to discuss 2023-12-24 08:51:41 Phone (patient, pare nt, or guardian); 5-10 minutes of medical discussion (no modifier 95)Continue to see PCP. Follow-up with [facility] as needed for any acute or disease education needs that may arise 01/06. 2024-01-20 13:44:19 Phone (patient, pare nt, or guardian); 5-10 minutes of medical discussion (no modifier 95)Continue to see PCP. Follow-up with [facility] as needed for any acute or disease education needs that may arise 01/06.Dizziness possibly from anemiaHospital recommends PT but did not refer.Fell around 11/21/2023.No head strike.Landed sitting down. Her back hurts. Will be seeing PCP shortly.Call CB PRN.01/20/2024Spoke to dtr for clarification - HEAD STRIKE.Needs to restart PT - Call Dtr. [facility]ced's number. 2024-03-15 07:13:00 Phone (patient, pare nt, or guardian); 5-10 minutes of medical discussion (no modifier 95)Continue to see PCP. Follow-up with [facility] as needed for any acute or disease education needs that may arise 01/06.Pt fell again 03/15/2024Will await her return home to discuss sxs, after we see ER/Hosp records.NAUN appt next week.Dizziness possibly from anemiaHospital recommends PT but did not refer.Fell around 11/21/2023.No head strike.Landed sitting down. Her back hurts. Will be seeing PCP shortly.Call CB PRN.01/20/2024Spoke to dtr for clarification - HEAD STRIKE.Needs to restart PT - Call Dtr. Merced's number.03/15/2024atient fell agian, today at 5am and is in the ER at [facility]. I have requested records. Not clear if she will be admitted. 2024-04-13 14:43:06 Discharge medication s reconciled with current medication listTelevideo 20-29min; 1 stable chronic or 2 minor; add modifier 95Advance care planning discussed and documented ? advance care plan or surrogate decision-maker was documented in the medical record. (1123F)Advance care planning discussed and documented in the medical record ? beneficiary/patient did not wish to or was unable to provide an advance care plan or name a surrogate decision-maker. (1124F)PCP visit is planned for:Call CB ifBP > 155/100, if SOB,Pt falls again or dizziness worsens.metoprolol, furosemide, now amlodipine.Ed re fluid intakemonitor for fluid overload04/13/2024ecently skipped all her meds and had very elevated BP, which caused various problems, SOB, possibly an exacerbation. Was hospitalized 04/05-04/07/2024. Now home, added amlodipine. 2024-09-30 12:44:41 SBP >= 140BMI obtain ed (3008F)DBP <80 (3078F)Phone (patient, parent, or guardian); 5-10 minutes of medical discussion (no modifier 95)Continue to see PCP. Follow-up with [facility] as needed for any acute or disease education needs that may arise.09/30/24-I spoke with member who states she was in ED last night. Dx with pneumonia and discharged home with oral abx. She states she does not feel well and cannot speak. Her daughter, who accompanied her to the hospital, is sleeping and cannot assist her currently. -She states she has her Rx antibiotic and is taking tylenol as needed-Advised to contact CB for new or worsening symptoms-Member agreeable to be contacted next week for follow up/ECCA when feeling better and when able to be assisted by daughterOTHER CONTINGENCY PLANLast updated: 09/30/2024Member to call for the following symptoms: fever, cough, dyspnea Planned intervention: Take tylenol 1000 mg po every 6 hours prn, albuterol prn, mucinex prn, continue antibiotic as prescribed until [id number] 7.0% on 3GFR 38 on 06/19/2023Ed re diet, lifestyleNot on any medications right now for DM.4Reports stable, though does not provide numbers.Please keep a log of FSBGCont tx.metoprolol, furosemide, now amlodipine.Ed re fluid intakemonitor for fluid overload4Recently skipped all her meds and had very elevated BP, which caused various problems, SOB, possibly an exacerbation. Was hospitalized 04/05-04/07/2024. Now home, added amlodipine.On EliquGoAlbert 2024-10-11 12:31:14 Televideo 30-39min; chronic exacerbation, 2 stable chronic or 1 acute illness add modifier 95Functional Status Assessed (1170F)Pain Assessment - NO pain documented (1126F)BMI obtained (3008F)Advance Care Directive Advance care planning discussion documented in the medical record (1158F)Advance care planning discussed and documented ? advance care plan or surrogate decision-maker was documented in the medical record. (1123F)Most recent hemoglobin A1c (HbA1c) level <7% (3044F)Continue to see PCP. Follow-up with [facility] as needed for any acute or disease education needs that may arise.A1C 7.9% on 11/04/2023 (found in Outside Care)GFR 38 on 06/19/2023Ed re diet, lifestyleRx: Metformin, Atorvastatin11/25/2023Log of FSBG ranging from 150-1806/05/2023 showing ejectionfraction 30 35% with moderate global hypokinesis, moderate LA dilation, at least moderate mitral valve regurgitation, dilated right ventricle with mildly reduced function and trivial pericardial effusion.RX: metoprolol, furosemide, amlodipinemonitor for fluid [id number] na diet, 2L fluid restrictionhas chronic edema, lymphedema machineHas cardiology f/u on 10/26/24States PCP did not refill her amlodipine, question if they are holding due to frequent falls, will request recordsHas BP cuff in the home, encouraged to check her BP daily 2 hours after AM meds given and keep a log to bring to cards appt, CB to f/uHas scale, does not weigh self daily, per daughter has been stable ~197 lbsBMI 36.03Ed re diet, activityMay be candidate for GLP-1 agonist, to discuss with her PCPRx: Eliquis - eligible for reduced dosing due to age and renal function, will leave message for cardiology to discuss, may also need conversation on benefit vs risk given history of fallshas easy bruising, no traumaCards follow up on 10/26/24No redness, no swelling, no calor, no fever. Skin intact.Has been using home remediesDid not tolerate gabapentinAnother provider prescribed TramadolLidocaine creamOffered narcan but declined - rarely takes tramadol and rarely enough to be concernedfollows podiatry, they were unable to find etiology per daughterMultiple falls in 2023State PCP did not refill her amlodipine, question if they are holding due to frequent falls, will request recordsDiscussed fall precautions, member is on ACHas walker, cane, bedside commode, shower chairDizziness possibly from anemiaHistory of multiple falls in 2023Last fall the day before , turned around too fast and lost her balanceDaughter denies any injury or traumaStates PCP did not refill her amlodipine, question if they are holding due to frequent falls, will request recordsCall CB ifBP > 155/100, if SOB,Pt falls again or dizziness worsens.Possible making her dizzyTaking iron supplements, PRN bowel regimenDenies hematochezia or melenaRx: Vit D and calciumPCP f/u to monitorReinforce fall precautions, high risk for fractureRx: Lidocaine, TylenolRx: Jessie is grieving son who recently passed awayRx: MyrbetriqRx: FamotidineDiscussed dietary restrictions, remaining upright for at least 1 hour after mealsRx: Atorvastatin, PlavixAlso on Eliquis for AF - discuss with PCP if still necessary to be on PlavixPer daughter, STM has been decliningPCP concerned for dementiaLives alone but supportive family, daughter lives next door and is PCANo acute safety concernsPRN Trazadone for sleepDiscussed sleep hygieneper outside care 05/06/2024 cxr ordered 4Rx advair, albuterol 2024-12-01 06:30:20 Estab. patient 10-29 min; 1 minor problem; add add modifier 95 for video, modifier 93 for phoneContinue to see PCP. [facility] or disease education needs that may arise 01/06.Rx: Eliquis - eligible for reduced dosing due to age and renal function, will leave message for cardiology to discuss, may also need conversation on benefit vs risk given history of fallshas easy bruising, no traumaCards follow up on 10/26/: Spoke with member's LICENSED CLINICAL SOCIAL WORKER who lives next door. Member has been feeling dizzy chronically but it has been worse for 2 weeks. Beginning this morning, she has been having 2 episodes of hematuria. First episode was light and second episode was darker. She spoke with the nurses from her PCP on Thursday who recommended ER as member also complains of intermittent chest pain. Discussed given her history and complaints, ER visit is likely necessary. Member is on Eliquis, concern for possible bleed or ACS. States member does not want to go to ER. Called member again on 12/01/24 to get ROS and for LICENSED CLINICAL SOCIAL WORKER to do VS, and LVM. Will follow up.Possible making her dizzyTaking iron supplements, PRN bowel regimenDenies hematochezia or melena12/01/24: Endorses 2 weeks of dizziness, intermittent chest pain and 1 day of hematuria, likely needs ER visit to rule out acute bleed vs ACS. Is on AC.Call CB ifBP > 155/100, if SOB,Pt falls again or dizziness worsens.BLEEDING CONTINGENCY PLANLast updated: 12/01/2024Member to call for the following symptoms: S&S of anemia, hematuria, dizziness, hypotension, tachycardiaPlanned intervention: Assess signs and symptoms for anemia (on AC), order CBC, evaluate if warrants ED visit for urgent/emergent evaluation Goals Date Goal 2023-06-19 Patient Education to avoid future hospitalization: Call [facility] if symptoms of illness develop. 2024-09-30 Patient Education to avoid future hospitalization: Call [facility] if symptoms of illness develop. 2024-09-30 Continue taking medi cations as directed and keep all follow up appointments with established PCP and Specialist. 2024-09-30 At least 50% of time spent counseling patient, discussing diagnosis, treatment plan, complicance, and coordinating follow up care. Health Concerns Date Concern 2024-12-01 Visit completed via audio by telephone. Patient/Guardian agreed to visit via telehealth.Time spent in visit: 13 mintues 2024-12-01 Most recent hospital stay(s) or ER visit(s) and precipitating factors: 04/06/24 - 04/07/24 at [facility] 2024-12-01 HEDIS review: Kidney Health Evaluation for Patients with Diabetes (KED):UrineKidney Health Evaluation for Patients with Diabetes (KED):BloodControlling High Blood Pressure < 140/90
--- OUTSIDE RECORDS SUMMARY | 2025-02-20 13:04 | XMS_ITS | Encounter Summary ---
Author Organization [employer] Address [address] [place] [id number] Care Team Providers Care Senior Net Web Developer Name Role Phone Flor Marie MD Primary Care Pro vider Reason for Visit * Reason Comments Med Refill Encounter Details Date Type Department Care Team (Late st Contact Info) Description 12/21/2023 Refill [facility]INE [address] [place] [address] Flor Marie MD [address] [place] [address] Social History Tobacco Use Types Packs/Day Years [...] Description 04/11/2025 11:15 AM EDT Office Visit [facility] [address] [place] [phone] Flor Marie MD [address] [place] [phone] documented as of this encounter Visit Diagnoses Not on filedocumented in this encounter Additional Health Concerns Assessment Noted Time PHQ-9 Depression Total Score: 19 023 2:14 PM EDT documented as of this encounter Care Teams Senior Net Web Developer Relationship Specialty Start Date End Date Flor Marie MD [address] [place] [id number] PCP - General Internal Medicine 05/18/23 [facility] 01/17/25 documented as of this encounter
--- OUTSIDE RECORDS SUMMARY | 2025-02-20 13:04 | XMS_ITS | Encounter Summary ---
Author Organization [employer] Address [address] [place] [id number] Care Team Providers Care Program Support Clerk Name Role Phone Flor Marie MD Primary Care Pro vider Reason for Visit * Reason Comments Med Refill Encounter Details Date Type Department Care Team (Late st Contact Info) Description 08/21/2023 Refill [facility] MEDICINE [address] [place] [address] Flor Marie MD [address] [place] [address] Social History Tobacco Use Types Packs/Day Years [...] Patient Health Questionnaire-2 Score 6 07/20/2023 Comments Unknown Sex and Gender Information Value [...] Description 04/11/2025 11:15 AM EDT Office Visit [facility] MEDICINE [address] [place] [phone] Flor Marie MD [address] [place] [phone] documented as of this encounter Visit Diagnoses Not on filedocumented in this encounter Additional Health Concerns Assessment Noted Time PHQ-9 Depression Total Score: 19 023 2:14 PM EDT documented as of this encounter Care Teams Program Support Clerk Relationship Specialty Start Date End Date Flor Marie MD [address] [place] [phone] PCP - General Internal Medicine 05/18/23 [facility] 01/17/25 documented as of this encounter
--- OUTSIDE RECORDS SUMMARY | 2025-02-20 13:04 | XMS_ITS | Encounter Summary ---
Author Organization [employer] Address [address] [place] [phone] Care Team Providers Care Front End Loader Operator Name Role Phone Flor Marie MD Primary Care Pro vider Reason for Visit * Reason Comments Med Refill Encounter Details Date Type Department Care Team (Late st Contact Info) Description 03/25/2024 Refill [facility] MEDICINE [address] [place] [address] Flor Marie MD [address] [place] [address] Social History Tobacco Use Types Packs/Day Years [...] Description 04/11/2025 11:15 AM EDT Office Visit [facility] MEDICINE [address] [place] [phone] Flor Marie MD [address] [place] [phone] documented as of this encounter Visit Diagnoses Not on filedocumented in this encounter Additional Health Concerns Assessment Noted Time PHQ-9 Depression Total Score: 19 023 2:14 PM EDT documented as of this encounter Care Teams Front End Loader Operator Relationship Specialty Start Date End Date Flor Marie MD [address] [place] [id number] PCP - General Internal Medicine 05/18/23 [facility] 01/17/25 documented as of this encounter
--- OUTSIDE RECORDS SUMMARY | 2025-02-20 13:05 | XMS_ITS | Clinical Summary ---
Author Organization [facility] Facility Address [address] [place] [address] Care Team Providers Care [employer] Leader Name Role Phone Areli Song Primary Care Provider [phone]- [phone] Allergies Active Allergy Reactions Criticality Noted Date Comments Gabapentin 01/23/2021 Other reaction(s): Itching Montelukast Other (see comments) 06/13/2021 Medications Mapap 500 MG capsule TAKE 1 CAPSULE BY MOUTH EVERY 8 HOURS NEEDED FOR PAIN OR FEVER 06/04/2021 Active allopurinol (ZYLOPRIM) 100 MG tablet Take 100 mg by mouth 1 (one) time each day Active Aspirin Adult Low Strength 81 MG EC tablet Take 81 mg by mouth 1 (one) time each day 06/04/2021 Active Calcium Citrate-Vitamin D ([place] Calcium/Vitamin D) 200-250 MG-UNIT tablet Take 2 tablets by mouth 2 (two) times a day 05/06/2021 Active dilTIAZem (TIAZAC) 180 MG 24 hr capsule Take 1 capsule by mouth 1 (one) time each day Active ferrous sulfate 325 (65 Fe) MG tablet Take 1 tablet by mouth 1 (one) time each day Active atorvastatin (LIPITOR) 40 MG tablet Take 1 tablet by mouth 1 (one) time each day Active losartan (COZAAR) 100 MG tablet Take 1 tablet by mouth 1 (one) time each day Active Melatonin 5 MG capsule Take 1 capsule by mouth at bed time Active metFORMIN (GLUCOPHAGE) 850 MG tablet Take 1 tablet by mouth 1 (one) time each day Active omeprazole (PriLOSEC) [address] capsule Take 1 capsule by mouth 1 (one) time each day Active rOPINIRole (REQUIP) 2 MG tablet Take 1 tablet by mouth at bed time Active dabigatran etexilate (PRADAXA) 150 MG capsule Take 1 capsule by mouth 2 (two) times a day Active traMADol (ULTRAM) 50 MG tablet 06/07/2021 Active dilTIAZem CD (CARDIZEM CD) 180 MG 24 hr capsule Take by mouth 1 (one) time each day 12/18/2021 Active Advair Diskus 250-50 MCG/DOSE diskus inhaler 12/23/2021 Acti ve carvedilol (COREG) 3.125 MG tablet Take 3.125 mg by mouth in the morning and 3.125 mg in the evening. Take with meals. 11/28/2021 Active Empagliflozin (Jardiance) 25 MG tablet Take by mouth Active Active Problems Problem Noted Date Diagnosed Date Anemia 01/09/2023 Stage 3a chronic kidney disease 01/09/2022 Type 2 diabetes mellitus wit h diabetic chronic kidney disease 01/09/2022 Chronic kidney disease stage 3 06/13/2021 Complex renal cyst 06/13/2021 Essential hypertension 06/13/2021 History of calculus of kidney 06/13/2021 Renal disorder due to type 2 diabetes mellitus 0 06/13/2021 Renal stone 06/13/2021 Hypertensive retinopathy 03/29/2018 Resolved Problems Problem Noted Date Diagnosed Date Resolved Date Obese class II 01/12/2023 04/22/2023 Restless legs 01/09/2023 04/22/2023 Hyperlipidemia 01/09/2023 04/22/2023 Gout 01/09/2023 04/22/2023 Gastro-esophageal reflux dis ease without esophagitis 01/09/2023 04/22/2023 Diabetes mellitus 01/09/2023 04/22/2023 Congestive heart failure 01/09/2023 Atrial fibrillation 01/09/2023 04/22/20 Asthma 01/09/2023 04/22/2023 Osteoporosis 03/01/2022 04/22/2023 Varicose veins of lower extremity 07/05/2018 04/22/2023 Diabetic peripheral neuropat hy associated with type 2 diabetes mellitus 03/25/2017 04/22/2023 Acute erosive gastritis 11/06/201504/09 Allergic rhinitis 11/06/2015 04/22/2023 Constipation 11/06/2015 04/22/2023 Degenerative joint disease i nvolving multiple joints 11/06/2015 04/22/2023 Emphysema 11/06/2015 04/22/2023 Illiteracy 11/06/2015 04/22/2023 Immunizations Immunization Administration Dates Next Due Hepatitis B 08/24/2014,04/10/2014,02/02/2014 Influenza Split 07/13/2013,07/07/2012 Influenza Split High Dose Pr eservative Free IM 01/10/2020 Influenza, Quadrivalent, Pre servative Free 10/02/2021,10/23/2019,11/04/2018 Influenza, Quadrivalent, Wit h Preservative 10/14/2017,08/25/2016,09/06/2015 Influenza, Unspecified 09/08/2022,2019,07/27/2014,08/10,08/11/2007 Pneumococcal Conjugate 13-Valent 11/06/2015 Pneumococcal Polysaccharide 10/23/2017, 0 Shingrix 06/08/2020,11/15/2019 Td 03/09/1995 Tdap 02/24/2013 Zoster 07/20/2015 Family History Medical History Relation Comments Cancer Child Heart disease Father Hypertension Father Relation Status Comments Child Father Mother Social History Tobacco Use Types Packs/Day Years Used Date Smoking Tobacco: Never Alcohol Use Standard Drinks/Week Comments No 0 (1 standard drink = 0.6 oz pur e alcohol) Comments Unknown Sex and Gender Information Value Date Recorded Sex Assigned at Not on file Legal Sex Female 4:59 PM EST Gender Identity Not on file Sexual Orientation Not on file Last Filed Vital Signs Vital Sign Reading Time Taken Comments Blood Pressure 123/65 07/20/2023 10:27 AM EDT Pulse 88 07/20/2023 10:27 AM EDT Temperature - - Respiratory Rate - - Oxygen Saturation 98% 07/20/2023 10:27 AM EDT Inhaled Oxygen Concentration - - Weight 84.6 kg (186 lb 9.6 oz) 07/20/2023 10:27 AM EDT Height 157.5 cm (5' 2 ) 05/24/2019 12:00 PM EDT Body Mass Index 34.13 05/24/2019 12:00 PM EDT Plan of Treatment Health Maintenance Due Date Last Done Comments Diabetes: Ophthalmology Exam 12/10/2020 Diabetes: Pedal Pulse Checked 12/10/2020 Diabetes: Sensory Foot Exam 12/10/2020 Diabetes: Visual Foot Exam 12/10/2020 Diabetes: Hemoglobin A1C 04/22/202501/20/2 025, 11/04/2023, 11/03/2023, Additional history exists Influenza Vaccine (Season Ended) 2025 07/20/2023, 09/08/2022, 10/02/2021, Additional history exists Hepatitis B Vaccine Aged Out 08/24/2014, 04/10/2014, 02/02/2014 No longer eligible based on patient's age to complete this topic Pneumococcal Vaccine: 50+ Years Completed 07/20/2023, 10/23/2017, 11/06/2015, Additional history exists Pneumococcal Vaccine: Peds (0 to 5 Years) and At-Risk Patients (6 to 49 Years) Discontinued 07/20/2023, 10/23/2017, 11/06/2015, Additional history exists Insurance [employer] ([id number]) [address] [place] [id number] [employer] ([id number]) Care Teams [employer] Leader Relationship Specialty Start Date End Date Areli Song PCP - General Family Medicine 06/17/21
--- OUTSIDE RECORDS SUMMARY | 2025-02-20 13:05 | XMS_ITS | Encounter Summary ---
Author Organization [facility] Address [address] [place] [address] 7 [place] [address] Care Team Providers Care Clinical Operations Leader Name Role Phone Carolyn Ceballos Primary Care Provider [phone]- [phone] Flor Marie MD Primary Care Pro vider Reason for Visit * Reason Onset Date Comments fyi 01/26/2023 Encounter Details Date Type Department Care Team (Late st Contact Info) Description 01/26/2023 Telephone [facility] MED[facility]INE [address] [place] [phone] Carolyn Ceballos FNP [address] [place] [address] Dept [place] [address] i Social History Tobacco Use Types Packs/Day Years [...] encounter Miscellaneous Notes * Telephone Encounter - Konrad Bellamy - 01/26/2023 2:19 PM EDT Tc from [facility] with [facility] stating pt will be discharge from services due to pt declining visits. Please contact marilee at [phone] documented in this encounter Plan of Treatment Upcoming Encounters Date Type Department Care Team (Late st Contact Info) Description 04/11/2025 11:15 AM EDT Office Visit [facility] [address] [place] [address] Flor Marie MD [address] [place] [phone] documented as of this encounter Visit Diagnoses Not on filedocumented in this encounter Care Teams Clinical Operations Leader Relationship Specialty Start Date End Date Carolyn Ceballos FNP PCP - General Family Medicine 07/02/22 05/17/23 Flor Marie MD [address] [place] [address] PCP - General Internal Medicine 05/18/23 [facility] 01/17/25 documented as of this encounter
--- OUTSIDE RECORDS SUMMARY | 2025-02-20 13:05 | XMS_ITS | Encounter Summary ---
Author Organization [facility] [facility] Address [address] [place] [address] [place] [address] Care Team Providers Care Clothes Presser Name Role Phone Carolyn Ceballos Primary Care Provider [phone]- [phone] Flor Marie MD Primary Care Pro vider Reason for Visit * Reason Onset Date Comments fyi 01/16/2023 Encounter Details Date Type Department Care Team (Late st Contact Info) Description 01/16/2023 Telephone [facility] MEDICINE [address] [place] [phone] Carolyn Ceballos FNP [address] [place] [address] [place] [address] Social History Tobacco Use Types Packs/Day Years [...] Miscellaneous Notes * Telephone Encounter - Konrad Josesito - 01/16/2023 9:58 AM EST Tc from [facility]. Stating pt was been refusing physical therapy or the whole week and stated will not want to be seen for next week as well. Pt also has been refusing nursing treatment. Please contact dwight at [phone] documented in this encounter Plan of Treatment Upcoming Encounters Date Type Department Care Team (Late st Contact Info) Description 04/11/2025 11:15 AM EDT Office Visit [facility]INE [address] [place] [address] Flor Marie MD [address] [place] [address] documented as of this encounter Visit Diagnoses Not on filedocumented in this encounter Care Teams Clothes Presser Relationship Specialty Start Date End Date Carolyn Ceballos FNP PCP - General Family Medicine 07/02/22 05/17/23 Flor Marie MD [address] [place] [id number] PCP - General Internal Medicine 05/18/[facility] documented as of this encounter
== END 2025-02-20 11:53 | disposition home or self-care (01) ==
LOC: HO.HCS 11:02
PROVIDERS: PCP Student in an Organized Health Care Education/Training Program; Visit Provider Internal Medicine Cardiovascular Disease
DX: I50.9 Heart failure, unspecified (principal); I48.19 Other persistent atrial fibrillation; I42.9 Cardiomyopathy, unspecified
CPT/HCPCS: 93010; 99215

== ENCOUNTER → 2025-02-20 11:02 | Outpatient (BNVA) | payer OTHER, SELFPAY | PROVIDERS: PCP Student in an Organized Health Care Education/Training Program; Visit Provider Internal Medicine Cardiovascular Disease | DX: I50.9 Heart failure, unspecified (principal); I48.19 Other persistent atrial fibrillation; I42.9 Cardiomyopathy, unspecified; I25.2 Old myocardial infarction | CPT/HCPCS: 93005; 99212 ==

== ENCOUNTER 2025-03-08 09:26 | Outpatient (REF) | payer OTHER, SELFPAY ==
--- OUTSIDE RECORDS SUMMARY | 2025-03-08 10:09 | XMS_ITS | Clinical Summary ---
Author Organization [facility] Facility Address [address] [place] [address] Care Team Providers Care Drencher Name Role Phone Areli Song Primary Care Provider +1- [phone] Allergies Active Allergy Reactions Criticality Noted Date [...] each day 06/04/2021 Active Calcium Citrate-Vitamin D ([place] Calcium/Vitamin D) 200-250 MG-UNIT tablet Take 2 [...] 07/20/2023, 10/23/2017, 11/06/2015, Additional history exists Insurance [employer] ([id number]) [address] [place] [id number] [employer] ([id number]) [place] [address] Care Teams Drencher Relationship Specialty Start Date End Date Areli Song PCP - General Family Medicine 06/17/21
--- OUTSIDE RECORDS SUMMARY | 2025-03-08 10:09 | XMS_ITS ---
Author Name Marya Collins NP Address [address] [place] [address] Phone [phone] [facility] Care Team Providers Care Safety Investigator/Cause Analyst Name Role Phone Marya Collins Unavailable [phone] Unavailable Unavailable Unavailable Unavailable Unavailable Unavailable Unavailable Unavailable [phone] [facility], [place] Unavailable [facility], [facility] Unavailable Reason for Referral Not Available Allergies, [...] mg Tab TAKE 1 TABLET BY [facility] EVERY DAY NEEDED FOR ALLERGIES 2022-02-18 No [...] mg Tab TAKE 1 TABLET BY [facility] TWICE DAILY IN THE MORNING AND IN [...] 2022-07-10 No Data Available OneTouch Delica Plus [id number] Miscellaneous TEST BLOOD SUGAR TWICE DAILY 2022-07-16 [...] mg Tab TAKE 1 TABLET BY [facility] TWICE DAILY 2022-09-08 No Data Available Losartan [...] mg Tab TAKE 1 TABLET BY [facility] ONCE DAILY. 2022-12-24 2023-05-01 Dexamethasone 2 mg [...] 2023-08-20 No Data Available Deep Sea Nasal [place] 0.65 % Solution USE 1 SPRAY IN [...] 1111F, BP, A1c or other CPTII codes [facility], ([place]) 04/20/2023 Encounter for other specifie d aftercare RN, CN or CP time with patient by phone; use with 1111F, BP, A1c or other CPTII codes [facility], ([place]) 04/20/2023 RN, CN or CP time with patient by phone; use with 1111F, BP, A1c or other CPTII codes [facility], ([place]) 06/11/2023 Encounter for other specifie d aftercare RN, CN or CP time with patient by phone; use with 1111F, BP, A1c or other CPTII codes [facility], ([place]) 06/11/2023 New patient,40-59min; chronic exacerbation, 2 stable chronic or 1 acute illness add add modifier 95 for video (do not use for phone, instead use 06393-43) [facility], ([place] 06/19/2023 Type 2 diabetes mellitus wit h diabetic chronic kidney diseaseChronic kidney disease, stage 3bObesity, unspecifiedPain in right toe(s)Pain in left toe(s)Other persistent atrial fibrillationOther thrombophiliaHeart failure, unspecifiedSecondary hyperaldosteronismBody mass index (bmi) 33.0-33.9, adult New patient,40-59min; chronic exacerbation, 2 stable chronic or 1 acute illness add add modifier 95 for video (do not use for phone, instead use 46271-87) [facility] 06/19/2023 New patient,40-59min; chronic exacerbation, 2 stable chronic or 1 acute illness add add modifier 95 for video (do not use for phone, instead use 09071-76) [facility] 06/19/2023 New patient,40-59min; chronic exacerbation, 2 stable chronic or 1 acute illness add add modifier 95 for video (do not use for phone, instead use 81811-01) [facility] 06/19/2023 New patient,40-59min; chronic exacerbation, 2 stable chronic or 1 acute illness add add modifier 95 for video (do not use for phone, instead use 52658-58) [facility], ([place] 06/19/2023 New patient,40-59min; chronic exacerbation, 2 stable chronic or 1 acute illness add add modifier 95 for video (do not use for phone, instead use 01551-46) [facility] 06/19/2023 New patient,40-59min; chronic exacerbation, 2 stable chronic or 1 acute illness add add modifier 95 for video (do not use for phone, instead use 63945-94) [facility] 06/19/2023 No Data Available [facility] 08/20/2023 Pain in right toe(s)Pain in left toe(s) No Data Available [facility] 08/20/2023 No Data Available [facility] 08/20/2023 No Data Available [facility] 09/15/2023 Pain in right toe(s)Pain in left toe(s) No Data Available [facility] 09/15/2023 No Data Available [facility] 11/25/2023 History of fallingType 2 diabetes mellitus with diabetic chronic kidney diseaseChronic kidney disease, stage 3bOther problems related to medical facilities and other health care No Data Available [facility] 11/25/2023 No Data Available [facility] 11/25/2023 No Data Available [facility] 12/23/2023 Other specified counselingOt her problems related to medical facilities and other health care No Data Available [facility] 12/23/2023 No Data Available [facility] 12/24/2023 Acute upper respiratory infection, unspecified No Data Available [facility] 01/20/2024 Dizziness and giddinessHisto ry of falling No Data Available [facility] 01/20/2024 No Data Available [facility] 03/15/2024 Repeated fallsHistory of fallingDizziness and giddiness No Data Available [facility] 03/15/2024 Estab. patient 20-29min; 1 stable chronic or 2 minor; add add modifier 95 for video, modifier 93 for phone [facility] 04/13/2024 Hypertensive heart disease w ith heart failureHeart failure, unspecifiedSecondary hyperaldosteronismOther problems related to medical facilities and other health care Estab. patient 20-29min; 1 stable chronic or 2 minor; add add modifier 95 for video, modifier 93 for phone [facility] [place] 04/13/2024 Estab. patient 20-29min; 1 stable chronic or 2 minor; add add modifier 95 for video, modifier 93 for phone [facility] [place] 04/13/2024 No Data Available [facility] [place] 09/30/2024 Pneumonia, unspecified organismType 2 diabetes mellitus with diabetic chronic kidney diseaseChronic kidney disease, stage 3bType 2 diabetes mellitus with diabetic neuropathy, unspecifiedHeart failure, unspecifiedSecondary hyperaldosteronismOther thrombophiliaOther persistent atrial fibrillationOther problems related to medical facilities and other health careHyp hrt & chr kdny dis w hrt fail and stg 1-4/unsp chr kdny No Data Available [facility] [place] 09/30/2024 No Data Available [facility] [place] 09/30/2024 Estab. patient 30-39min; chronic exacerbation, 2 stable chronic or 1 acute illness add add modifier 95 for video, (do not use for phone, instead use 75037-96) [facility] [place] 10/11/2024 Type 2 diabetes mellitus wit h [...] (do not use for phone, instead use 17838-35) [facility] 10/11/2024 Estab. patient 30-39min; chronic exacerbation, 2 stable chronic or 1 acute illness add add modifier 95 for video, (do not use for phone, instead use 48987-73) [facility] [place] 10/11/2024 Estab. patient 30-39min; chronic exacerbation, 2 stable chronic or 1 acute illness add add modifier 95 for video, (do not use for phone, instead use 11101-44) [facility] 10/11/2024 Estab. patient 30-39min; chronic exacerbation, 2 stable chronic or 1 acute illness add add modifier 95 for video, (do not use for phone, instead use 80493-48) [facility] [place] 10/11/2024 Estab. patient 30-39min; chronic exacerbation, 2 stable chronic or 1 acute illness add add modifier 95 for video, (do not use for phone, instead use 78607-21) [facility] [place] 10/11/2024 Estab. patient 30-39min; chronic exacerbation, 2 stable chronic or 1 acute illness add add modifier 95 for video, (do not use for phone, instead use 69055-74) [facility] 10/11/2024 Estab. patient 30-39min; chronic exacerbation, 2 stable chronic or 1 acute illness add add modifier 95 for video, (do not use for phone, instead use 44966-11) [facility] 10/11/2024 Estab. patient 30-39min; chronic exacerbation, 2 stable chronic or 1 acute illness add add modifier 95 for video, (do not use for phone, instead use 68232-20) [facility] [place] 10/11/2024 Estab. patient 10-29min; 1 minor problem; add add modifier 95 for video, modifier 93 for phone [facility] ([place] 12/01/2024 Other persistent atrial fibrillationOther thrombophiliaAnemia, unspecifiedOther problems related to medical facilities and other health care Estab. patient 10-29min; 1 minor problem; add add modifier 95 for video, modifier 93 for phone [facility] [place] 12/01/2024 Vital Signs Date of Collection Vitals [...] tive Time Current Smoking Status Never smoker 2025-02-09 0 Sex Female History of Procedures Procedures Service Procedure code Service date Servicing provider Phone# RN, CN or CP time with patient by phone; use with 1111F, BP, A1c or other CPTII codes 98006 2023-04-20 No Data Available No Data Avai lable Medications prescribed in hospital were reviewed and reconciled against what they were taking prior to admission during today's visit. (1111F) 1111F 2023-04-20 No Data Available No Data Availa ble RN, CN or CP time with patient by phone; use with 1111F, BP, A1c or other CPTII codes 49787 2023-06-11 No Data Available No Data Avai lable Medications prescribed in hospital were reviewed and reconciled against what they were taking prior to admission during today's visit. (1111F) 1111F 2023-06-11 No Data Available No Data Availa ble New patient,40-59min; chronic exacerbation, 2 stable chronic or 1 acute illness add add modifier 95 for video (do not use for phone, instead use 13655-73) 267[address] 2023-06-19 No Data Available No Data Availa [...] No Data Availa ble No Data Available [id number] 2023-08-20 No Data Available No Data Available [...] No Data Funmi ilable No Data Available [id number] 2023-11-25 No Data Available No Data Available Medication List Documented (1159F) 1159F 2023-11-25 No Data Available No Data Funmi ilable Pain Assessment - Pain Documented on a Pain Scale (1125F) 1125F 2023-11-25 No Data Available No Data Funmi ilable No Data Available [id number] 2023-12-23 No Data Available No Data Available Medication List Documented (1159F) 1159F 2023-12-23 No Data Available No Data Funmi ilable No Data Available [id number] 2023-12-24 No Data Available No Data Available No Data Available [id number] 2024-01-20 No Data Available No Data Available Medication List Documented (1159F) 1159F 2024-01-20 No Data Available No Data Funmi ilable No Data Available [id number] 2024-03-15 No Data Available No Data Available Medication List Documented (1159F) 1159F 2024-03-15 No Data Available No Data Funmi ilable Estab. patient 20-29min; 1 stable chronic or 2 minor; add add modifier 95 for video, modifier 93 for phone [id number] 2024-04-13 No Data Available No Data Availa ble Medications prescribed in hospital were reviewed and reconciled against what they were taking prior to admission during today's visit. (1111F) 1111F 2024-04-13 No Data Available No Data Availa ble Medication List Documented (1159F) 1159F 2024-04-13 No Data Available No Data Funmi ilable No Data Available [id number] 2024-09-30 No Data Available No Data Available Medication List Documented (1159F) 1159F 2024-09-30 No Data Available No Data Funmi ilable BMI obtained (3008F) 3008F 2024-09-30 No Data Availab le No Data Available Estab. patient 30-39min; chronic exacerbation, 2 stable chronic or 1 acute illness add add modifier 95 for video, (do not use for phone, instead use 06557-64) 62528 2024-10-11 No Data Available No Data Availa [...] 95 for video, modifier 93 for phone [id number] 2024-12-01 No Data Available No Data Availa [...] 5am and is in the ER at [facility]. I have requested records. Not clear [...] mucinex prn, continue antibiotic as prescribed until [id number] 7.0% on 3GFR 38 on 06/19/2023Ed re diet, lifestyleNot on any medications right now for DM.4Reports stable, though does not provide numbers.Please keep a log of FSBGCont tx.metoprolol, furosemide, now amlodipine.Ed re fluid intakemonitor for fluid overload4Recently skipped all her meds and had very elevated BP, which caused various problems, SOB, possibly an exacerbation. Was hospitalized 04/05-04/07/2024. Now home, added amlodipine.[facility] 2024-10-11 12:31:14 Televideo 30-39min; chronic exacerbation, 2 [...] pericardial effusion.RX: metoprolol, furosemide, amlodipinemonitor for fluid [id number] na diet, 2L fluid restrictionhas chronic edema, [...] for phoneContinue to see PCP. [facility] or disease education needs that may arise 01/06.Rx: Eliquis - eligible for reduced dosing due to age and renal function, will leave message for cardiology to discuss, may also need conversation on benefit vs risk given history of fallshas easy bruising, no traumaCards follow up on 10/26/: Spoke with member's OPTICS ENGINEER who lives next door. Member has been [...] on 12/01/24 to get ROS and for OPTICS ENGINEER to do VS, and LVM. Will follow [...] and precipitating factors: 04/06/24 - 04/07/24 at [facility] 2024-12-01 HEDIS review: Kidney Health Evaluation for Patients with Diabetes (KED):UrineKidney Health Evaluation for Patients with Diabetes (KED):BloodControlling High Blood Pressure < 140/90
[2025-03-08 11:15] LABS: MANUAL DIFF FLAG NO
[2025-03-08 11:22] LABS: Basophils Percent Auto 0.8 % (0-2); Eosinophils Absolute Auto 0.3 X10*3/uL (0.0-0.4); Eosinophils Percent Auto 5.3 % (0-4); Hematocrit 36.5 % (37.0-47.0); Hemoglobin 11.4 g/dl (12.0-16.0); Imm Gran Abs Auto 0.01 X10*3/uL (0.00-0.03); Imm Gran Pct Auto 0.2 % (0.0-0.4); Lymphocytes Percent Auto 20.5 % (20-40); Mean Corpuscular HGB Conc 31.2 g/dl (31.0-35.0); Mean Corpuscular Hemoglobin 27.1 pg (27.0-33.0); Mean Corpuscular Volume 86.9 fL (80.0-98.0); Mean Platelet Volume 10.8 fL (9.4-12.3); Monocytes Absolute Auto 0.5 X10*3/uL (0.1-1.2); Monocytes Percent Auto 10.4 % (2-11); Neutrophils Absolute Auto 3.1 x10*3/uL (2.0-8.3); Neutrophils Percent Auto 62.8 % (45-73); Platelet Count 244 X10*3/uL (160-400); Red Cell Distribution Width 14.1 % (11.0-16.0); White Blood Count 4.9 X10*3/uL (4.8-10.8)
[2025-03-08 11:23] LABS: Hematocrit 34.9 % (37.0-47.0); Mean Corpuscular HGB Conc 31.5 g/dl (31.0-35.0); Mean Corpuscular Hemoglobin 27.2 pg (27.0-33.0); Mean Corpuscular Volume 86.4 fL (80.0-98.0); Mean Platelet Volume 10.8 fL (9.4-12.3); Platelet Count 250 X10*3/uL (160-400); Red Blood Count 4.04 X10*6/uL (4.20-5.50); Red Cell Distribution Width 14.1 % (11.0-16.0); White Blood Count 4.8 X10*3/uL (4.8-10.8)
[2025-03-08 11:34] LABS: B Type Natriuretic Peptide 407 pg/mL (<100)
[2025-03-08 11:44] LABS: Estimated Average Glucose 180 mg/dL; Hemoglobin A1c % 7.9 % (<6.0); Total Hemoglobin (HGBA1C) 2951.5937 umol/L
[2025-03-08 11:48] LABS: Alanine Aminotransferase 14 U/L (0-31); Albumin Level 3.8 g/dL (3.5-5.0); Alkaline Phosphatase 110 U/L (39-117); Anion Gap 11 (12-20); Aspartate Amino Transferase 20 U/L (5-31); Bilirubin Total 0.5 mg/dL (0.0-1.0); Blood Urea Nitrogen 34 mg/dL (9-16); Calcium 9.8 mg/dL (8.4-10.2); Carbon Dioxide 32 mmol/L (22-29); Chloride 102 mmol/L (96-108); Cholesterol 174 mg/dL (<200); Estimated Glomerular Filt Rate 43; Glucose Random 159 mg/dL (60-115); HDL Cholesterol 57 mg/dL (>40); Iron 39 mcg/dL (30-160); LDL Cholesterol Calculated 96 mg/dL (<100); Magnesium 2.1 mg/dL (1.6-2.6); Percent Iron Saturation 15 % (15-50); Potassium 4.1 mmol/L (3.3-5.1); Sodium 141 mmol/L (135-145); Total Iron Binding Capacity 259 mcg/dL (228-428); Total Protein 6.9 g/dL (6.5-8.0); Triglycerides 105 mg/dL (<150); Unsaturated Iron Binding 220 ug/dL
[2025-03-08 12:16] LABS: Vitamin B12 400 pg/mL (200-900)
== END 2025-03-08 09:27 | disposition home or self-care (01) ==
LOC: HO.HHCL 09:26
PROVIDERS: Emergency Medicine; Nurse Practitioner Family; Visit Provider Internal Medicine Cardiovascular Disease
DX: I12.9 Hypertensive chronic kidney disease with stage 1 through stage 4 chronic kidney disease, or unspecified chronic kidney disease (principal); E11.22 Type 2 diabetes mellitus with diabetic chronic kidney disease; N18.32 Chronic kidney disease, stage 3b; R42 Dizziness and giddiness; I21.3 ST elevation (STEMI) myocardial infarction of unspecified site; I42.9 Cardiomyopathy, unspecified
CPT/HCPCS: 36415; 80053; 80061; 82607; 83036; 83540; 83735; 83880; 84443; 85025; 85027

== ENCOUNTER 2025-03-17 11:55 | Outpatient (REF) | payer OTHER, SELFPAY ==
--- NOTE | ~2025-03-17 | XR_ITS ---
EXAMINATION: XR SHOULDER 2 OR MORE VIEWS LEFT HISTORY: 1-week duration of left shoulder pain in the GH joint area COMPARISON: Comparison is made with the prior examination dated 03/15/2024. FINDINGS: Three views of the left shoulder are submitted. Osseous mineralization is normal. There is no fracture or dislocation. The glenohumeral joint is maintained. There is mild degenerative change of the AC joint. The soft tissues are unremarkable. XR/XR shoulder LT min 2V IMPRESSION: Mild degenerative change of the AC joint. Electronically signed by: Robert Wright MD 03/17/2025 01:13 PM EDT
--- OUTSIDE RECORDS SUMMARY | 2025-03-17 12:22 | XMS_ITS | Clinical Summary ---
Author Organization [facility] Facility Address [address] [place] [id number] Care Team Providers Care Agricultural Equipment Sales Engineer Name Role Phone Areli Song Primary Care Provider [phone] Allergies Active Allergy Reactions Criticality Noted Date [...] each day 06/04/2021 Active Calcium Citrate-Vitamin D ([place] Calcium/Vitamin D) 200-250 MG-UNIT tablet Take 2 [...] 07/20/2023, 10/23/2017, 11/06/2015, Additional history exists Insurance [employer] ([id number]) [address] [place] [id number] [employer] ([id number]) Care Teams Agricultural Equipment Sales Engineer Relationship Specialty Start Date End Date Areli Song PCP - General Family Medicine 06/17/21
--- OUTSIDE RECORDS SUMMARY | 2025-03-17 12:22 | XMS_ITS ---
Author Name Estrada DOOR LINER,WAX CUTTER,FN P,CASHIER MANAGER, Miranda Address [address] [place] [address] Phone [phone] [facility] Care Team Providers Care Professor Of Sport Management Name Role Phone Miranda Estrada Unavailable [phone] Unavailable Unavailable Unavailable Unavailable Unavailable Unavailable Unavailable Unavailable [phone] [facility] [place] [place] Unavailable [facility] [place], [facility] Unavailable Reason for Referral Not Available [...] 1 TABLET BY [facility] EVERY DAY NEEDED FOR ALLERGIES 2022-02-18 No [...] Tab TAKE 1 TABLET BY [facility] TWICE DAILY IN THE MORNING AND IN [...] 2022-07-10 No Data Available OneTouch Delica Plus [id number] Miscellaneous TEST BLOOD SUGAR TWICE DAILY 2022-07-16 [...] Tab TAKE 1 TABLET BY MO U[facility] TWICE DAILY 2022-09-08 No Data Available Losartan [...] Tab TAKE 1 TABLET BY [facility] ONCE DAILY. 2022-12-24 2023-05-01 Dexamethasone 2 mg [...] TAKE 1 TABLET BY EMERITA TH EVERY 6 HOURS NEEDED FOR SEVERE PAIN [...] 2023-08-20 No Data Available Deep Sea Nasal [place] 0.65 % Solution USE 1 SPRAY IN [...] N/A Encounter for other specified aftercare Resolved 2024-10-11 Urgency of urination Active 2024-10-11 N/A [...] Active 2022-12-10 N/A Other problems related to [facility] facilities and other health care Active 2023-12-23 N/A Encounters Encounters Type Facility Date of Service Diagnosis/Co mplaint RN, CN or CP time with patient by phone; use with 1111F, BP, A1c or other CPTII codes [facility] [place] 04[place]/2023 Encounter for other specifie d aftercare RN, CN or CP time with patient by phone; use with 1111F, BP, A1c or other CPTII codes [facility] [place] 04/20/2023 RN, CN or CP time with patient by phone; use with 1111F, BP, A1c or other CPTII codes [facility] [place] 06/11/2023 Encounter for other specifie d aftercare RN, CN or CP time with patient by phone; use with 1111F, BP, A1c or other CPTII codes [facility] [place] 06/11/2023 New patient,40-59min; chronic exacerbation, 2 stable chronic or 1 acute illness add add modifier 95 for video (do not use for phone, instead use 53261-61) [facility] 06[place]19[place]2023 Type 2 diabetes mellitus wit h diabetic chronic kidney diseaseChronic kidney disease, stage 3bObesity, unspecifiedPain in right toe(s)Pain in left toe(s)Other persistent atrial fibrillationOther thrombophiliaHeart failure, unspecifiedSecondary hyperaldosteronismBody mass index (bmi) 33.0-33.9, adult New patient,40-59min; chronic exacerbation, 2 stable chronic or 1 acute illness add add modifier 95 for video (do not use for phone, instead use 01646-18) [facility] [place] 06/19/[place]23 New patient,40-59min; chronic exacerbation, 2 stable chronic or 1 acute illness add add modifier 95 for video (do not use for phone, instead use 86939-47) [facility] [place] 06/19/2023 New patient,40-59min; chronic exacerbation, 2 stable chronic or 1 acute illness add add modifier 95 for video (do not use for phone, instead use 51685-23) [facility] [place] 06/19/[place]23 New patient,40-59min; chronic exacerbation, 2 stable chronic or 1 acute illness add add modifier 95 for video (do not use for phone, instead use 06000-84) [facility] [place] New patient,40-59min; chronic exacerbation, 2 stable chronic or 1 acute illness add add modifier 95 for video (do not use for phone, instead use 26697-90) [facility] [place] New patient,40-59min; chronic exacerbation, 2 stable chronic or 1 acute illness add add modifier 95 for video (do not use for phone, instead use 97223-57) [facility] [place] 06[place]2023 No Data Available [facility] [place] 08[place]2023 Pain in right toe(s)Pain in left toe(s) No Data Available [facility] [place]20[place] No Data Available [facility] [place]20[place] No Data Available [facility] [place] 09/[place]2023 Pain in right toe(s)Pain in left toe(s) No Data Available [facility] [place] 09[place]2023 No Data Available [facility] [place]2023 History of fallingType 2 diabetes mellitus with diabetic chronic kidney diseaseChronic kidney disease, stage 3bOther problems related to medical facilities and other health care No Data Available [facility] [place] 11[place]2023 No Data Available [facility] [place] 11[place]2023 No Data Available [facility] [place] 12/[place]/2023 Other specified counselingOt her problems related to medical facilities and other health care No Data Available [facility] [place] 12[place]2023 No Data Available [facility] [place] 12/[place]/2023 Acute upper respiratory infection, unspecified No Data Available [facility] [place] 01/20/2024 Dizziness and giddinessHisto ry of falling No Data Available [facility] [place] 01/20/2024 No Data Available [facility] [place] 03/15/2024 Repeated fallsHistory of fallingDizziness and giddiness No Data Available [facility] [place] 03/[place] Estab. patient 20-29min; 1 stable chronic or 2 minor; add add modifier 95 for video, modifier 93 for phone [facility] [place] 04/13/2024 Hypertensive heart disease w ith heart failureHeart failure, unspecifiedSecondary hyperaldosteronismOther problems related to medical facilities and other health care Estab. patient 20-29min; 1 stable chronic or 2 minor; add add modifier 95 for video, modifier 93 for phone [facility] [place] 04/13/2024 Estab. patient 20-29min; 1 stable chronic or 2 minor; add add modifier 95 for video, modifier 93 for phone [facility] [place] 04/13/2024 No Data Available [facility] [place] 09/30/2024 Pneumonia, unspecified organismType 2 diabetes mellitus with diabetic chronic kidney diseaseChronic kidney disease, stage 3bType 2 diabetes mellitus with diabetic neuropathy, unspecifiedHeart failure, unspecifiedSecondary hyperaldosteronismOther thrombophiliaOther persistent atrial fibrillationOther problems related to medical facilities and other health careHyp hrt & chr kdny dis w hrt fail and stg 1-4/unsp chr kdny No Data Available [facility] [place] 09/30/2024 No Data Available [facility] [place] 09/[place]/2024 Estab. patient 30-39min; chronic exacerbation, 2 stable chronic or 1 acute illness add add modifier 95 for video, (do not use for phone, instead use 73277-51) [facility] [place] 10/11/2024 Type 2 diabetes mellitus wit h [...] (do not use for phone, instead use 52488-54) [facility] [place] 10/[place]/2024 Estab. patient 30-39min; chronic exacerbation, 2 stable chronic or 1 acute illness add add modifier 95 for video, (do not use for phone, instead use 57962-04) [facility] [place] 10/11/2024 Estab. patient 30-39min; chronic exacerbation, 2 stable chronic or 1 acute illness add add modifier 95 for video, (do not use for phone, instead use 06134-84) [facility] [place] 10/11/2024 Estab. patient 30-39min; chronic exacerbation, 2 stable chronic or 1 acute illness add add modifier 95 for video, (do not use for phone, instead use 29521-72) [facility] [place] 10/11/2024 Estab. patient 30-39min; chronic exacerbation, 2 stable chronic or 1 acute illness add add modifier 95 for video, (do not use for phone, instead use 75116-07) [facility] [place] 10/[place]/2024 Estab. patient 30-39min; chronic exacerbation, 2 stable chronic or 1 acute illness add add modifier 95 for video, (do not use for phone, instead use 89532-15) [facility] [place] 10/11/2024 Estab. patient 30-39min; chronic exacerbation, 2 stable chronic or 1 acute illness add add modifier 95 for video, (do not use for phone, instead use 67022-25) [facility] [place] 10/11/2024 Estab. patient 30-39min; chronic exacerbation, 2 stable chronic or 1 acute illness add add modifier 95 for video, (do not use for phone, instead use 54284-20) [facility] [place] 10/11/2024 Estab. patient 10-29min; 1 minor problem; add add modifier 95 for video, modifier [address] [facility] [place] 12/01/2024 Other persistent atrial fibrillationOther thrombophiliaAnemia, unspecifiedOther problems related to medical facilities and other health care Estab. patient 10-29min; 1 minor problem; add add modifier 95 for video, modifier 93 for phone [facility] [place] 12/01/2024 Vital Signs Date of Collection Vitals [...] tive Time Current Smoking Status Never smoker 8 Sex Female History of Procedures Procedures Service Procedure code Service date Servicing provider Phone# RN, CN or CP time with patient by phone; use with 1111F, BP, A1c or other CPTII codes 46699 2023-04-20 No Data Available No Data Avai lable Medications prescribed in hospital were reviewed and reconciled against what they were taking prior to admission during today's visit. (1111F) 1111F 2023-04-20 No Data Available No Data Availa ble RN, CN or CP time with patient by phone; use with 1111F, BP, A1c or other CPTII codes 88683 2023-06-11 No Data Available No Data Avai lable Medications prescribed in hospital were reviewed and reconciled against what they were taking prior to admission during today's visit. (1111F) 1111F 2023-06-11 No Data Available No Data Availa ble New patient,40-59min; chronic exacerbation, 2 stable chronic or 1 acute illness add add modifier 95 for video (do not use for phone, instead use 75153-54) 25389 2023-06-19 No Data Available No Data Availa [...] No Data Availa ble No Data Available [id number] 2023-08-20 No Data Available No Data Available [...] No Data Funmi ilable No Data Available [id number] 2023-11-25 No Data Available No Data Available Medication List Documented (1159F) 1159F 2023-11-25 No Data Available No Data Funmi ilable Pain Assessment - Pain Documented on a Pain Scale (1125F) 1125F 2023-11-25 No Data Available No Data Funmi ilable No Data Available 2023-12-23 No Data Available No Data Available Medication List Documented (1159F) 1159F 2023-12-23 No Data Available No Data Funmi ilable No Data Available [id number] 2023-12-24 No Data Available No Data Available No Data Available [id number] 2024-01-20 No Data Available No Data Available Medication List Documented (1159F) 1159F 2024-01-20 No Data Available No Data Funmi ilable No Data Available [id number] 2024-03-15 No Data Available No Data Available Medication List Documented (1159F) 1159F 2024-03-15 No Data Available No Data Funmi ilable Estab. patient 20-29min; 1 stable chronic or 2 minor; add add modifier 95 for video, modifier 93 for phone [id number] 2024-04-13 No Data Available No Data Availa ble Medications prescribed in hospital were reviewed and reconciled against what they were taking prior to admission during today's visit. (1111F) 1111F 2024-04-13 No Data Available No Data Availa ble Medication List Documented (1159F) 1159F 2024-04-13 No Data Available No Data Funmi ilable No Data Available [id number] 2024-09-30 No Data Available No Data Available Medication List Documented (1159F) 1159F 2024-09-30 No Data Available No Data Funmi ilable BMI obtained (3008F) 3008F 2024-09-30 No Data Availab le No Data Available Estab. patient 30-39min; chronic exacerbation, 2 stable chronic or 1 acute illness add add modifier 95 for video, (do not use for phone, instead use 48817-27) 96094 2024-10-11 No Data Available No Data Availa [...] 95 for video, modifier 93 for phone 53981 2024-12-01 No Data Available No Data Availa [...] 80-89 (3079F)Continue to see PCP. Follow-up with [facility] as [...] home remediesDid not tolerate gabapentinAnother provider prescribed TramadolJarred ask PCP re lyricaLidocaine creamOffered narcan but declined - rarely takes tramadol and rarely enough to be concernedWill ARCENIO w PCPCall CB PRN 2023-09-15 11:10:00 Phone (patient, pare nt, or guardian); 5-10 minutes of medical discussion (no modifier 95)Continue to see PCP. Follow-up with [facility] as needed for any acute or disease education needs that may arise 01/06.No redness, no swelling, no calor, no fever. Skin intact.Has been using home remediesDid not tolerate gabapentinAnother provider prescribed TramadolJarred ask PCP re lyricaLidocaine cream09/15/2023tr reports she [...] to discuss sxs, after we see ER/Hosp records.[facility] appt next week.Dizziness possibly from anemiaHospital recommends PT but did not refer.Fell around 11/21/2023.No head strike.Landed sitting down. Her back hurts. Will be seeing PCP shortly.Call CB PRN.01/20/2024Spoke to dtr for clarification - HEAD STRIKE.Needs to restart PT - Call Dtr. [facility]'s number.03/15/2024atient fell agian, today at 5am and is in the ER at [facility]. I have requested records. Not clear [...] mucinex prn, continue antibiotic as prescribed until onfvmdjkqvW1C 7.0% on 3GFR 38 on 06/19/2023Ed re diet, lifestyleNot on any medications right now for DM.4Reports stable, though does not provide numbers.Please keep a log of FSBGCont tx.metoprolol, furosemide, now amlodipine.Ed re fluid intakemonitor for fluid overload4Recently skipped all her meds and had very elevated BP, which caused various problems, SOB, possibly an exacerbation. Was hospitalized 04/05-04/07/2024. Now home, added amlodipine.On [place] 2024-10-11 12:31:14 Televideo 30-39min; chronic exacerbation, 2 [...] lifestyleRx: Metformin, Atorvastatin11/25/2023Log of FSBG ranging from 150-1806 showing ejectionfraction 30 35% with moderate global hypokinesis, moderate LA dilation, at least moderate mitral valve regurgitation, dilated right ventricle with mildly reduced function and trivial pericardial effusion.RX: metoprolol, furosemide, amlodipinemonitor for fluid [id number] na diet, 2L fluid restrictionhas chronic edema, [...] to find etiology per daughterMultiple falls in 2023States PCP did not refill her amlodipine, question [...] for phoneContinue to see PCP. Follow-up with [facility] as needed for any acute or disease education needs that may arise 01/06.Rx: Eliquis - eligible for reduced dosing due to age and renal function, will leave message for cardiology to discuss, may also need conversation on benefit vs risk given history of fallshas easy bruising, no traumaCards follow up on : Spoke with member's [employer] who lives next door. Member has been [...] on 12/01/24 to get ROS and for [employer] to do VS, and LVM. Will follow up.Possible making her dizzyTaking iron supplements, PRN bowel regimenDenies hematochezia or melena12/01/24: Endorses 2 weeks of dizziness, intermittent chest pain and 1 day of hematuria, likely needs ER visit to rule out acute bleed vs ACS. Is on AC.Call CB ifBP > 155/100, if SOB,Pt falls again or dizziness worsens.BLEEDING CONTINGENCY PLANLast updated: 12/01/2024[place]allie to call for the following symptoms: S&S [...] and precipitating factors: 04/06/24 - 04/07/24 at [place], 2024-12-01 HEDIS review: Kidney Health Evaluation for Patients with Diabetes (KED):UrineKidney Health Evaluation for Patients with Diabetes (KED):BloodControlling High Blood Pressure < 140/90
== END 2025-03-17 11:56 | disposition home or self-care (01) ==
LOC: HO.HHCX 11:55
PROVIDERS: Visit Provider Family Medicine
DX: M25.512 Pain in left shoulder (principal)
CPT/HCPCS: 73030

== ENCOUNTER → 2025-03-17 11:57 | Outpatient (BNV) | payer OTHER, SELFPAY | PROVIDERS: Visit Provider Radiology Diagnostic Radiology | DX: M25.512 Pain in left shoulder (principal) | CPT/HCPCS: 73030 ==

== ENCOUNTER 2025-04-05 09:47 | Outpatient (REF) | payer OTHER, SELFPAY ==
--- NOTE | ~2025-04-05 | XR_ITS ---
EXAMINATION: XR CHEST 2 VIEWS HISTORY: persistent cough COMPARISON: Comparison is made with the prior examination dated 12/22/2024. FINDINGS: PA and lateral views of the chest are submitted. There is eventration of the diaphragm. There is thickening of the fissures. There is no pleural effusion, pneumothorax, or pulmonary vascular congestion. The heart is enlarged. There is degenerative disc disease of the spine. XR/XR chest 2V IMPRESSION: No acute cardiopulmonary abnormality. Electronically signed by: Robert Wright MD 04/05/2025 10:06 AM EDT
--- OUTSIDE RECORDS SUMMARY | 2025-04-05 10:32 | XMS_ITS | Encounter Summary ---
Author Organization [employer] Address [address] [place] [address] [address] [place] [address] Care Team Providers Care Barrel Scraper Name Role Phone Flor Marie MD Primary Care Pro vider Reason for Visit * Reason Comments Med Refill Encounter Details Date Type Department Care Team ([facility] st Contact Info) Description 08/11/2024 Refill [facility] [address] [place] [phone] Flor Marie MD [address] [place] [phone] Social History Tobacco Use Types Packs/Day Years [...] Office Visit [facility] [address] [place] [phone] Flor Marie MD [address] [place] [phone] documented as of this encounter Visit Diagnoses Not on filedocumented in this encounter Additional Health Concerns Assessment Noted Time PHQ-9 Depression Total Score: 19 023 2:14 PM EDT documented as of this encounter Care Teams Barrel Scraper Relationship Specialty Start Date End Date Flor Marie MD [address] [place] [phone] PCP - General Internal Medicine 05/18/23 [facility] 01/17/25 documented as of this encounter
== END 2025-04-05 09:48 | disposition home or self-care (01) ==
LOC: HO.HHCX 09:47
PROVIDERS: Visit Provider Internal Medicine
DX: J40 Bronchitis, not specified as acute or chronic (principal)
CPT/HCPCS: 71046

== ENCOUNTER → 2025-04-05 09:48 | Outpatient (BNV) | payer OTHER, SELFPAY | PROVIDERS: Visit Provider Radiology Diagnostic Radiology | DX: I51.7 Cardiomegaly (principal) | CPT/HCPCS: 71046 ==

== ENCOUNTER → 2025-04-19 13:11 | Outpatient (REF) | payer OTHER, SELFPAY ==
--- NOTE | 2025-04-19 13:14 | CA_ITS ---
Transthoracic Echocardiogram Patient (Last, First, Middle): Roseanna Hurt, Gender: Female Date of : 1945 Age: 80 Procedure Date: 04/19/2025 Procedure Type: Transthoracic Echocardiogram Location: OP Height: 157.48 cm Weight: 88. kg BSA: 1.89 m2 Heart Rate: bpm BP: 140 / 80 mmHg Ticket Scheduler: TO Referring MD: Colby Cadena MD Senior Client Advisor: Nomi Nichols MD Symptoms: I42.9 - Cardiomyopathy, unspecified Study Quality: Fair/No IV Access ECG Rhythm: Atrial Fibrillation Conclusions: - 1. Zclr-yx-[id number] LV systolic dysfunction with LVEF of 40-45% 2. Severe biatrial enlargement 3. Mild mitral regurgitation 4. Normal measured RV systolic pressure with mildly elevated right atrial pressures 5. No gross pericardial effusion Findings Left Ventricle Normal left ventricular cavity size. There is normal left ventricular wall thickness. The left ventricular systolic function is mild to moderately decreased. The visually estimated ejection fraction is between 40-45%. Diastolic function is indeterminate on the basis of available data. Right Ventricle Mildly increased right ventricular cavity size. There is borderline right ventricular systolic function. Atria Severe biatrial enlargement. There is no evidence of interatrial shunt. Aortic Valve Normal aortic valve structure and function. There is no aortic valve stenosis. There is no aortic valve regurgitation. Mitral Valve There is mild anterior and posterior mitral leaflet thickening. There is mild mitral valve regurgitation. There is no mitral valve stenosis. Pulmonic Valve The pulmonic valve was not well visualized. Tricuspid Valve Likely normal tricuspid valve structure and function. There is mild tricuspid valve regurgitation. The right ventricular systolic pressure is normal. The right ventricular systolic pressure is 21 mmHg. Mildly elevated right atrial pressure. There is no evidence of pulmonary hypertension. Great Vessels All visible segments of the aorta are normal in size. The pulmonary artery was not well visualized. There is no dilatation of the ascending aorta measuring 3.30 cm. Venous The inferior vena cava is moderately dilated and collapses greater than 50% with inspiration. Pericardium/Pleural There is no evidence of pericardial effusion. Prior Study Comparison Changes noted compared to prior study dated: 12/23/2024. LV systolic function has improved Measurements 2D Linear Measurements IVSd: 0.98 0.6-0.9/0.6-1.0 cm LVIDd: 5.26 3.9-5.3/4.2-5.9 cm LVIDd Index: 2.78 2.4-3.2/2.2-3.1 cm/m2 LVIDs: 3.71 2.0-3.6 cm LVPWd: 0.91 0.7-1.1 cm LA Diam: 4.80 2.7-3.8/3.0-4.0 cm LAIDs Index: 2.54 1.5-2.3 cm/m2 LV Mass: 227.68 67-162/88-224 g LV Mass Index: 120.46 43-95/49-115 g/m2 LVOT Diam: 2.20 3.0+(-)1.3 cm 2D Systolic Function EF 4C: 39.90 >55% EF 2C: 42.60 >55% EF BiP: 43.10 >55% Mitral Valve MV Pk E: 1.21 MV Decel Time: 197.00 E'Lateral: 7.14 E'Medial: 5.66 E/E' Med: 21.40 E/E' Lat: 16.90 PHT: 58.00 MVA PHT: 3.79 Decel [place]: 6.18 Aortic Valve AoV Pk Kw[place]: 1.25 AoV Pk Grad: 6.00 LVOT LVOT Pk Kwesi: 0.74 LVOT Mn Kwesi: 0.54 LVOT VTI: 0.18 LVOT Pk Grad: 2.00 LVOT Mn Grad: 1.00 LVOT Diam: 2.20 LVOT Area: 3.80 Diastolic Function MV Pk E: 1.21 E'Medial: 5.66 E/E' Med: 21.40 E' Laterial: 7.14 E/E' Lat: 16.90 Right Ventricle TAPSE (mm): 17.40 TVS' Kwesi: 9.68 Tricuspid Valve TR Pk Kwesi: 1.79 TR Pk Grad: 13.00 RA Press: 8.00 RVSP: 21.00 Great Vessels Aorta Sinus of Valsalva: 2.98 2.0-3.5 cm Ao Asc: 3.30 2.1-3.4 cm Updated in Other Vendor System with Status of Final Nomi Nichols MD electronically signed on 04/19/2025 5:32:15 PM with status of Final
--- OUTSIDE RECORDS SUMMARY | 2025-04-19 14:49 | XMS_ITS ---
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 Name Role Phone Miranda Estrada Unavailable [phone] Unavailable Unavailable Unavailable Unavailable Unavailable Unavailable Unavailable Unavailable [phone] [facility], [place] Unavailable [facility], [facility] Unavailable [phone] Reason for Referral Not Available Allergies, adverse [...] 2022-07-10 No Data Available OneTouch Delica Plus [id number] Miscellaneous TEST BLOOD SUGAR TWICE DAILY 2022-07-16 [...] 2023-08-20 No Data Available Deep Sea Nasal [place] 0.65 % Solution USE 1 SPRAY IN [...] List Problem Status Onset Date Resolved Date Synopsis URI (upper respiratory infection) Resolved 2023-12-24 2024-09-30 Family has covid , reports she is done with it, feels better, just still has a cough. sh eis unclear on whether she had covid but I infer it.Call CB if fever or worsening sxs.Pt wanted me to gigi to Dtr who now has covid. Will FU next week. Toe pain, bilateral Active 2023-06-19 N/A No re dness, no swelling, no calor, no fever. Skin intact.Has been using home remediesDid not tolerate gabapentinAnother provider prescribed TramadolLidocaine creamOffered narcan but declined - rarely takes tramadol and rarely enough to be concernedfollows podiatry, they were unable to find etiology per daughter dizziness, andStatus post fall Active 2023-11-27 N/A Dizziness possib ly from anemiaHistory of multiple falls in 2023Last fall the day before , turned around too fast and lost her balanceDaughter denies any injury or traumaStates PCP did not refill her amlodipine, question if they are holding due to frequent falls, will request records Osteoporosis Active 2024-09-30 N/A Rx: Vit D an d calciumPCP f/u to monitorReinforce fall precautions, high risk for fracture Degenerative joint disease involving multiple joints Active 2024-09-30 N/A Rx: Lidocaine, T ylenol Frequent falls Active 2024-03-15 N/A Multiple f alls in 2023States PCP did not refill her amlodipine, question if they are holding due to frequent falls, will request recordsDiscussed fall precautions, member is on ACHas walker, cane, bedside commode, shower chair Encounter for other specified aftercare Resolved 2024-09-30 2024-10-11 09/30/24-I s rashmi with member who states she was in [...] be assisted by daughterOTHER CONTINGENCY PLANLast updated: 09/30/2024 to call for the following symptoms: fever, cough, dyspnea Planned intervention: Take tylenol 1000 mg po every 6 hours prn, albuterol prn, mucinex prn, continue antibiotic as prescribed until completion Urgency of urination Active 2024-10-11 N/A Rx: Myrbetriq GERD without esophagitis Active 2024-10-11 N/A Rx: FamotidineDiscussed dietary restrictions, remaining upright for at least 1 hour after meals History of non-ST elevation myocardial infarction (NSTEMI) Active 2024-10-11 N/A Rx: Atorvast atin, PlavixAlso on Eliquis for AF - discuss with PCP if still necessary to be on Plavix Major depressive disorder with single episode, in partial remission Active 2024-10-11 N/A Rx: Jane callie is grieving son who recently Cognitive impairment Active 2024-10-11 N/A Per daughter, STM has been decliningPCP concerned for dementiaLives alone but supportive family, daughter lives next door and is PCANo acute safety concernsPRN Trazadone for sleepDiscussed sleep hygiene Morbid (severe) obesity due to excess calories Active 2023-06-19 N/A BMI 36.03 Ed re diet, activityMay be candidate for GLP-1 agonist, to discuss with her PCP Emphysema, unspecified Active 2024-10-20 N/A pe r outside care 05/06/2024 cxr ordered 4Rx advair, albuterol Hypercoagulable state due to persistent atrial fibrillation Active 2023-07-03 N/A Rx: Eliquis - el igible for reduced dosing due to age and renal function, will leave message for cardiology to discuss, may also need conversation on benefit vs risk given history of fallshas easy bruising, no traumaCards follow up on : Spoke with member's TECHNICAL TRAINER who lives next door. Member has been [...] on 12/01/24 to get ROS and for TECHNICAL TRAINER to do VS, and LVM. Will follow up. Anemia Active 2024-01-20 N/A Possible mine perales her dizzyTaking iron supplements, PRN bowel regimenDenies hematochezia or melena12/01/24: Endorses 2 weeks of dizziness, intermittent chest pain and 1 day of hematuria, likely needs ER visit to rule out acute bleed vs ACS. Is on AC. Type 2 diabetes mellitus with stage 3b chronic kidney disease, without long-term current use of insulin, Diabetic neuropathy, Hyperlipidemia Active 2022-12-10 N/A A1C 7.9% on 10/10 (found in Outside Care)GFR 65 on 02/10/2024 (found in Outside Care)GFR 38 on 06/19/2023Ed re diet, lifestyleRx: Metformin, Atorvastatin11/25/2023Log of FSBG ranging from 150-180 Hypertensive heart and chronic kidney disease with heart failureCongestive heart failuresecondary hyperaldosteronism Active 2022-12-10 N/A 04/15/2023 show ing ejectionfraction 30 35% with moderate global hypokinesis, moderate LA dilation, at least moderate mitral valve regurgitation, dilated right ventricle with mildly reduced function and trivial pericardial effusion.GFR 65 on 02/10/2024 (found in Outside Care)GFR 38 on 06/19/2023RX: metoprolol, furosemide, amlodipinemonitor for fluid [id number] na diet, 2L fluid restrictionhas chronic edema, [...] daily, per daughter has been stable ~197 lbs Other problems related to medical facilities and other health care Active 2023-12-23 N/A Call CB ifBP > 155/100, if SOB,Pt falls again or dizziness worsens.BLEEDING CONTINGENCY PLANLast updated: 12/01/2024Member to call for the following symptoms: S&S of anemia, hematuria, dizziness, hypotension, tachycardiaPlanned intervention: Assess signs and symptoms for anemia (on AC), order CBC, evaluate if warrants ED visit for urgent/emergent evaluation Encounters Encounters Type Facility Date of Service Diagnosis/Co mplaint RN, CN or CP time with patient by phone; use with 1111F, BP, A1c or other CPTII codes [facility], ([place]) 04/[place]/2023 Encounter for other specifie d aftercare RN, CN or CP time with patient by phone; use with 1111F, BP, A1c or other CPTII codes [facility] 04[place]/2023 RN, CN or CP time with patient by phone; use with 1111F, BP, A1c or other CPTII codes [facility] 06/11/2023 Encounter for other specifie d aftercare RN, CN or CP time with patient by phone; use with 1111F, BP, A1c or other CPTII codes [facility], ([place]) 06/11/2023 New patient,40-59min; chronic exacerbation, 2 stable chronic or 1 acute illness add add modifier 95 for video (do not use for phone, instead use 83383-06) [facility] ([place] 06/19/2023 Type 2 diabetes mellitus wit h diabetic chronic kidney diseaseChronic kidney disease, stage 3bObesity, unspecifiedPain in right toe(s)Pain in left toe(s)Other persistent atrial fibrillationOther thrombophiliaHeart failure, unspecifiedSecondary hyperaldosteronismBody mass index (bmi) 33.0-33.9, adult New patient,40-59min; chronic exacerbation, 2 stable chronic or 1 acute illness add add modifier 95 for video (do not use for phone, instead use 18608-52) [facility], ([place] 06/19/2023 New patient,40-59min; chronic exacerbation, 2 stable chronic or 1 acute illness add add modifier 95 for video (do not use for phone, instead use 88931-30) [facility] New patient,40-59min; chronic exacerbation, 2 stable chronic or 1 acute illness add add modifier 95 for video (do not use for phone, instead use 67014-10) [facility] New patient,40-59min; chronic exacerbation, 2 stable chronic or 1 acute illness add add modifier 95 for video (do not use for phone, instead use 94451-08) [facility] New patient,40-59min; chronic exacerbation, 2 stable chronic or 1 acute illness add add modifier 95 for video (do not use for phone, instead use 86782-67) [facility] New patient,40-59min; chronic exacerbation, 2 stable chronic or 1 acute illness add add modifier 95 for video (do not use for phone, instead use 88141-74) [facility]23 No Data Available [facility]2023 Pain in right toe(s)Pain in left toe(s) No Data Available [facility]20[place] No Data Available [facility] No Data Available [facility] Pain in right toe(s)Pain in left toe(s) No Data Available [facility]2023 No Data Available [facility] History of fallingType 2 diabetes mellitus with diabetic chronic kidney diseaseChronic kidney disease, stage 3bOther problems related to medical facilities and other health care No Data Available [facility]2023 No Data Available [facility]2023 No Data Available [facility] 12/[place]/2023 Other specified counselingOt her problems related to medical facilities and other health care No Data Available [facility] 12[place]2023 No Data Available [facility] 12[place]2023 Acute upper respiratory infection, unspecified No Data Available [facility] 01/[place]/2024 Dizziness and giddinessHisto ry of falling No Data Available [facility] 01/20/2024 No Data Available [facility] 03/15/2024 Repeated fallsHistory of fallingDizziness and giddiness No Data Available [facility] 03/[place]/20[place] Estab. patient 20-29min; 1 stable chronic or 2 minor; add add modifier 95 for video, modifier 93 for phone [facility] 04[place]13/2024 Hypertensive heart disease w ith heart failureHeart failure, unspecifiedSecondary hyperaldosteronismOther problems related to medical facilities and other health care Estab. patient 20-29min; 1 stable chronic or 2 minor; add add modifier 95 for video, modifier 93 for phone [facility] [place] 04/13/2024 Estab. patient 20-29min; 1 stable chronic or 2 minor; add add modifier 95 for video, modifier 93 for phone [facility] 04/13/2024 No Data Available [facility] 09/30/2024 Pneumonia, unspecified organismType 2 diabetes mellitus with diabetic chronic kidney diseaseChronic kidney disease, stage 3bType 2 diabetes mellitus with diabetic neuropathy, unspecifiedHeart failure, unspecifiedSecondary hyperaldosteronismOther thrombophiliaOther persistent atrial fibrillationOther problems related to medical facilities and other health careHyp hrt & chr kdny dis w hrt fail and stg 1-unsp chr kdny No Data Available [facility] 09/[place]/2024 No Data Available [facility] 09[place] Estab. patient 30-39min; chronic exacerbation, 2 stable chronic or 1 acute illness add add modifier 95 for video, (do not use for phone, instead use 78988-28) [facility] [place]20[place] Type 2 diabetes mellitus wit h [...] (do not use for phone, instead use 70114-77) [facility] Estab. patient 30-39min; chronic exacerbation, 2 stable chronic or 1 acute illness add add modifier 95 for video, (do not use for phone, instead use 91633-37) [facility] ([place] Estab. patient 30-39min; chronic exacerbation, 2 stable chronic or 1 acute illness add add modifier 95 for video, (do not use for phone, instead use 81422-17) [facility] [place] Estab. patient 30-39min; chronic exacerbation, 2 stable chronic or 1 acute illness add add modifier 95 for video, (do not use for phone, instead use 69720-10) [facility] [place] Estab. patient 30-39min; chronic exacerbation, 2 stable chronic or 1 acute illness add add modifier 95 for video, (do not use for phone, instead use 60287-32) [facility] [place] Estab. patient 30-39min; chronic exacerbation, 2 stable chronic or 1 acute illness add add modifier 95 for video, (do not use for phone, instead use 35464-29) [facility]20[place] Estab. patient 30-39min; chronic exacerbation, 2 stable chronic or 1 acute illness add add modifier 95 for video, (do not use for phone, instead use 34996-64) [facility] Estab. patient 30-39min; chronic exacerbation, 2 stable chronic or 1 acute illness add add modifier 95 for video, (do not use for phone, instead use 16054-91) [facility] Estab. patient 10-29min; 1 minor problem; add add modifier 95 for video, modifier 93 for phone [facility] [place] 12/01/2024 Other persistent atrial fibrillationOther thrombophiliaAnemia, unspecifiedOther problems related to medical facilities and other health care Estab. patient 10-29min; 1 minor problem; add add modifier 95 for video, modifier 93 for phone [facility] [place] 12/01/2024 Vital Signs Date of Collection Vitals [...] tive Time Current Smoking Status Never smoker 2025-04-09 1 Sex Female History of Procedures Procedures Service Procedure code Service date Servicing provider Phone# RN, CN or CP time with patient by phone; use with 1111F, BP, A1c or other CPTII codes 72120 2023-04-20 No Data Available No Data Avai lable Medications prescribed in hospital were reviewed and reconciled against what they were taking prior to admission during today's visit. (1111F) 1111F 2023-04-20 No Data Available No Data Availa ble RN, CN or CP time with patient by phone; use with 1111F, BP, A1c or other CPTII codes 60255 2023-06-11 No Data Available No Data Avai lable Medications prescribed in hospital were reviewed and reconciled against what they were taking prior to admission during today's visit. (1111F) 1111F 2023-06-11 No Data Available No Data Availa ble New patient,40-59min; chronic exacerbation, 2 stable chronic or 1 acute illness add add modifier 95 for video (do not use for phone, instead use 94581-40) 90305 2023-06-19 No Data Available No Data Availa [...] No Data Availa ble No Data Available 2023-08-20 No Data Available No Data Available [...] No Data Funmi ilable No Data Available 2023-11-25 No Data Available No Data Available [...] No Data Funmi ilable No Data Available 2023-12-24 No Data Available No Data Available No Data Available 2024-01-20 No Data Available No Data Available Medication List Documented (1159F) 1159F 2024-01-20 No Data Available No Data Funmi ilable No Data Available 2024-03-15 No Data Available No Data Available Medication List Documented (1159F) 1159F 2024-03-15 No Data Available No Data Funmi ilable Estab. patient 20-29min; 1 stable chronic or 2 minor; add add modifier 95 for video, modifier 93 for phone 31277 2024-04-13 No Data Available No Data Availa ble Medications prescribed in hospital were reviewed and reconciled against what they were taking prior to admission during today's visit. (1111F) 1111F 2024-04-13 No Data Available No Data Availa ble Medication List Documented (1159F) 1159F 2024-04-13 No Data Available No Data Funmi ilable No Data Available 2024-09-30 No Data Available No Data Available Medication List Documented (1159F) 1159F 2024-09-30 No Data Available No Data Funmi ilable BMI obtained (3008F) 3008F 2024-09-30 No Data Availab le No Data Available Estab. patient 30-39min; chronic exacerbation, 2 stable chronic or 1 acute illness add add modifier 95 for video, (do not use for phone, instead use 57856-10) 34323 2024-10-11 No Data Available No Data Availa [...] 95 for video, modifier 93 for phone [id number] 2024-12-01 No Data Available No Data Availa [...] 80-89 (3079F)Continue to see PCP. Follow-up with [facility] as [...] modifier 95)Continue to see PCP. Follow-up with [facility] as needed for any acute or disease education needs that may arise 01/06.No redness, no swelling, no calor, no fever. Skin intact.Has been using home remediesDid not tolerate gabapentinAnother provider prescribed TramadolJarred ask PCP re lyricaLidocaine creamOffered narcan but declined - rarely takes tramadol and rarely enough to be concernedJarred sims PCPCall CB PRN 2023-09-15 11:10:00 Phone (patient, [...] STRIKE.Needs to restart PT - Call Dtr. Merced'guerda number.03/15/2024atient fell agian, today at 5am and is in the ER at [facility]. I have requested records. Not clear [...] modifier 95)Continue to see PCP. Follow-up with [facility] as needed for any acute or [...] mucinex prn, continue antibiotic as prescribed until [id number] 7.0% on 06/19/2023FR 38 on 06/19/2023Ed re diet, lifestyleNot on any medications right now for DM.4Reports stable, though does not provide numbers.Please keep a log of FSBGCont tx.metoprolol, furosemide, now amlodipine.Ed re fluid intakemonitor for fluid overload04/13/2024ecently skipped all her meds and had very elevated BP, which caused various problems, SOB, possibly an exacerbation. Was hospitalized 04/05-04/07/2024. Now home, added amlodipine.On Eliquis 2024-10-11 12:31:14 Televideo 30-39min; chronic exacerbation, 2 [...] lifestyleRx: Metformin, Atorvastatin11/25/2023Log of FSBG ranging from 150-18004/15/2023 showing ejectionfraction 30 35% with moderate global hypokinesis, moderate LA dilation, at least moderate mitral valve regurgitation, dilated right ventricle with mildly reduced function and trivial pericardial effusion.RX: metoprolol, furosemide, amlodipinemonitor for fluid [id number] na diet, 2L fluid restrictionhas chronic edema, [...] falls in 2023Last fall the day before Thanksgi, turned around too fast and lost her [...] precautions, high risk for fractureRx: Lidocaine, TylenolRx: Cymbalta is grieving son who recently passed awayRx: [...] follow up on : Spoke with member's TECHNICAL TRAINER who lives next door. Member has been [...] on 12/01/24 to get ROS and for TECHNICAL TRAINER to do VS, and LVM. Will follow [...] and precipitating factors: 04/06/24 - 04/07/24 at [place] 2024-12-01 HEDIS review: Kidney Health Evaluation for Patients with Diabetes (KED):UrineKidney Health Evaluation for Patients with Diabetes (KED):BloodControlling High Blood Pressure < 140/90
== END ==
LOC: HO.CARD 13:11
PROVIDERS: Visit Provider Internal Medicine Cardiovascular Disease
DX: I42.9 Cardiomyopathy, unspecified (principal)
CPT/HCPCS: 93306

== ENCOUNTER → 2025-04-19 13:14 | Outpatient (BNV) | payer OTHER, SELFPAY | PROVIDERS: Visit Provider Internal Medicine Cardiovascular Disease | DX: I51.7 Cardiomegaly (principal); I34.0 Nonrheumatic mitral (valve) insufficiency; I36.1 Nonrheumatic tricuspid (valve) insufficiency; I51.89 Other ill-defined heart diseases | CPT/HCPCS: 93306 ==

== ENCOUNTER 2025-05-01 14:21 | Outpatient (AMB) | payer OTHER, SELFPAY ==
[2025-05-01 14:33] VITALS: BP 100/62; PULSE 92; BMI 36.4
--- NOTE | 2025-05-01 14:33 | MHC.OFFVIS ---
Vital Signs 05/01/25 14:33 Height 5 ft 2 in Weight 198 lb 13.711 oz BMI 36.4 BP 100/62 Blood Pressure Location Lt brachial Position Sitting Pulse 92 Pulse Source Pulse Oximeter Intake Visit Reasons: 2 mth f/up Intake Note: 2 mth f/up Tow Mate Required: No Tow Mate Services: Tow Mate Offered & Declined Tow Mate Name: daughter Accompanied by: Daughter Allergies montelukast (Singulair) Allergy (Unknown, Verified 12/22/24 21:40) itching/rash Medication List - Last Reconciled 05/01/25 by Colby Cadena MD acetaminophen 650 mg PO Q6H PRN albuterol sulfate 2.5 mg inhalation Q6H PRN albuterol sulfate 90 mcg/actuation (Ventolin HFA) 2 puffs inhalation Q4H PRN apixaban (Eliquis) 5 mg PO BID atorvastatin 80 mg PO DAILY bisacodyl (Dulcolax (bisacodyl)) 10 mg (2 x 5 mg) PO BEDTIME blood pressure test kit-large As directed blood sugar diagnostic (AdorStyle Verio test strips) blood-glucose meter (AdorStyle Verio Flex Meter) calcium citrate-vitamin D3 315 mg-6.25 mcg (250 unit) 1 tab PO BID calcium polycarbophil (Fiber-Lax) 625 mg PO DAILY cetirizine 10 mg PO DAILY PRN cholecalciferol (vitamin D3) (Vitamin D3) 50 mcg PO DAILY clopidogrel 75 mg PO DAILY dextromethorphan-guaifenesin 10-100 mg/5 mL (Josselyn-Tussin DM) 10 mL PO Q4H PRN diclofenac sodium 1% 1 g topical TID PRN docusate sodium (Stool Softener) 100 mg PO DAILY duloxetine 30 mg PO DAILY empagliflozin (Jardiance) 10 mg PO DAILY famotidine 20 mg PO BID ferrous gluconate 324 mg PO DAILY fluticasone propion-salmeterol 250-50 mcg/dose (Advair Diskus) 1 puff inhalation BID furosemide 40 mg PO DAILY lancets (The BackscratchersTouch Delica Plus Lancet) metformin 850 mg PO DAILY metoprolol succinate ER (Toprol XL) 50 mg PO DAILY mirabegron ER (Myrbetriq) 50 mg PO DAILY mirabegron ER (Myrbetriq) 50 mg PO DAILY 30 days psyllium husk (Reguloid (psyllium husk)) 1 tsp PO BID pyridoxine (vitamin B6) 100 mg PO DAILY sacubitril-valsartan 24-26 mg (Entresto) 1 tab See Protocol PO BID simethicone 80 mg PO QID PRN trazodone 100 mg PO BEDTIME HPI Comments Details: 80-year-old female who is presenting to clinic after recent cardiac catheterization performed at [facility]. She came to [facility] and was diagnosed with congestive heart failure. At that time she also complained of some chest pains. The chest pains appear to be atypical but she had diffuse T-wave inversions anterolateral leads with mildly elevated troponin levels and ruled in for NSTEMI. She was transferred for cardiac catheterization and it was noticed that she had severe mid LAD stenosis. This was treated with a drug-eluting stent. Subsequent to that she was in the hospital because there was some concern about bradycardia and it appears her diltiazem was stopped at that stage. She also was taken off the aspirin and was discharged home with apixaban and clopidogrel. She previously had atrial fibrillation and was supposed to be on Eliquis. She was accompanied by her daughter. The daughter reported that 5 days ago the patient complained of some shortness of breath and had to step out of the house and went to the porch to get some air. She also has orthopnea. She has peripheral edema. She is taking her medications regularly and has a pill box. No bleeding concerns. 06/24/23: She returns for follow-up. She had echocardiography yesterday showed low normal ejection fraction and moderate to severe mitral regurgitation. The daughter said that the patient has been experiencing some orthopnea at night time. She has been taking medication regularly. Denying any chest discomfort or significant shortness of breath with activity. She is not very active though. She had some blood in her urine due to ureteric stents but nothing gross recently. 06/15/2024: She is here for follow-up. She is feeling good. Denying any shortness of breath or chest discomfort. No bleeding concerns. Taking Eliquis and Plavix at this point. Well rate controlled for atrial fibrillation at this point metoprolol XL 50 mg daily. Blood pressure 120/70. 10/26/2024: On follow-up today, she is denying chest pain or shortness of breath. No orthopnea or PND. No peripheral edema. Taking medications regularly. No reported bleeding concerns. Last echocardiography showed moderate LV dysfunction with mild RV dysfunction. Mitral regurgitation interestingly was trace on that study. She has not received her amlodipine scripts and has not been taking amlodipine. We discussed and we are going to change her to losartan 25 mg daily given LV dysfunction. 02/20/2025: She is here for f/u. She is saying she went to [facility] after a mechanical fall where she hit her chest. She complained of chest pain which was thought to be musculoskeletal in origin. Biomarkers were negative at [facility]. She also had admission in December 2024 at [facility] when she was noticed to have elevated troponin level the setting of congestive heart failure and pneumonia. Echocardiography at that time showed severe LV dysfunction of 25%. She is denying any significant complaints other than foot pain. Occasionally feels pressure-like feeling in the chest at nighttime but during the day denying any symptoms. EKGs showing AFib with PVCs. 05/01/2025: She is here for follow-up. She has been getting productive cough. She is saying breathing is better. No chest discomfort. Her repeat echocardiography has shown EF 40-45% with no significant mitral regurgitation. Overall she has been doing well. [facility] Medical History Persistent atrial fibrillation Elevated liver enzymes NSTEMI (non-ST elevated myocardial infarction) Anxiety Asymmetrical thyroid CHF (congestive heart failure) COVID-19 Renal cyst, acquired, left Obstruction, uropathy Thrombosed external hemorrhoid COPD (chronic obstructive pulmonary disease) Atrial fibrillation Gout Asthma Alcohol abuse Nephrolithiasis Knee arthropathy Osteoarthritis Diabetes Arthritis Hypertension Surgical History Hx of bilateral cataract extraction Hx of hysterectomy Hx of lithotripsy History of total right knee replacement History of esophagogastroduodenoscopy (EGD) Hx of cystoscopy Hx of colonoscopy History of total knee arthroplasty Social History Household Members: None Household Members Other:: DAUGHTER Housing: Apartment Housing Other:: low income housing Do you presently have visiting nurse or other home services: Yes (has a PHP ENGINEER but reports is not consistent with coverage) Unable to assess alcohol history related to: Unknown Alcohol intake: unknown Patient Tobacco Use Status: Never used Tobacco e-Cigarette/Vaping Use: Never Used Second Hand Smoke Exposure: No Advance Directives Date on File: 09/07/22 service: No Current occupational status: disabled Review of Systems Const Denies chills, Denies fatigue, Denies fever(s), Denies frequent falls, Denies weakness, Denies weight gain and Denies weight loss ENT Denies dizziness Card Denies chest pain, Denies leg edema, Denies lightheadedness, Denies palpitations, Denies dyspnea and Denies dyspnea on exertion Resp Denies cough, Denies dyspnea and Denies dyspnea on exertion GI Denies hematochezia Musc Denies abnormal gait, Denies muscle weakness, Denies numbness, Denies radiating pain into limb and Denies tingling Neuro Denies abnormal gait, Denies dizziness, Denies frequent falls, Denies numbness, Denies tingling and Denies weakness Endo Denies fatigue and Denies palpitations Physical Exam Vital Signs: Last Vital Signs Pulse 92 05/01/25 14:33 BP 100/62 05/01/25 14:33 BMI result Body Mass Index 36.4 GENERAL APPEARANCE: in no acute distress. NECK: no carotid bruit, no jugular venous distention. SKIN: no suspicious lesions, warm and dry. HEART: no murmurs, irregular rate and rhythm. LUNGS: clear to auscultation bilaterally. ABDOMEN: soft, nontender. EXTREMITIES: No significant edema. PERIPHERAL PULSES: equal. NEUROLOGIC: No gross deficits, AAO X 3 Assessment & Plan Assessment & Plan (1) Cardiomyopathy: Code(s): I42.9 - Cardiomyopathy, unspecified Category: Medical (2) Chronic heart failure: Code(s): I50.9 - Heart failure, unspecified Category: Medical Plan [age] female with cardiomyopathy and chronic heart failure. Previously we noticed severe LV dysfunction despite being on medications and our plan was to do cardioversion on her. The patient and family wished to discuss this before deciding. In the meantime she had repeat echocardiography performed which is showing improvement in EF to 40-45%. She also had significant mitral regurgitation which has improved. Overall she is improving clinically. Continue same medications for now. Previously had LAD stent and is currently on Plavix along with Eliquis. She will see us back in few months. Thank you for allowing me to participate in the care of your patient. Please feel free to contact me if you have any questions. Coding Level of Care Code Est Pt Level 4 (25647) Diagnoses Cardiomyopathy I42.9 Chronic heart failure I50.9
--- OUTSIDE RECORDS SUMMARY | 2025-05-01 15:54 | XMS_ITS | Encounter Summary ---
Author Organization [employer] Address [address] [place] [address] [address] [place] [address] Care Team Providers Care Homicide Squad Sergeant Name Role Phone Flor Marie MD Primary Care Pro vider Reason for Visit * Reason Comments Med Refill Encounter Details Date Type Department Care Team ([facility] st Contact Info) Description 08/11/2024 Refill [facility] [address] [place] [id number] lFor Marie MD [address] [place] [phone] Social History Tobacco Use Types Packs/Day Years [...] Care Team (Late st Contact Info) Description 05/02/2025 10:00 AM EDT Clinical Support [address] [address] 06/20/2025 1:00 PM EDT Office Visit [address] [address] Flor Marie MD [address] [place] [id number] documented as of this encounter Visit Diagnoses Not on filedocumented in this encounter Additional Health Concerns Assessment Noted Time PHQ-9 Depression Total Score: 19 023 2:14 PM EDT documented as of this encounter Care Teams Homicide Squad Sergeant Relationship Specialty Start Date End Date Flor Marie MD [address] [place] [id number] PCP - General Internal Medicine 05/18/23 [facility] 01/17/25 documented as of this encounter
== END 2025-05-01 15:03 | disposition home or self-care (01) ==
LOC: HO.HCS 14:22
PROVIDERS: PCP Student in an Organized Health Care Education/Training Program; Visit Provider Internal Medicine Cardiovascular Disease
DX: I42.9 Cardiomyopathy, unspecified (principal); I50.9 Heart failure, unspecified
CPT/HCPCS: 99214

== ENCOUNTER → 2025-05-01 14:21 | Outpatient (BNVA) | payer OTHER, SELFPAY | PROVIDERS: PCP Student in an Organized Health Care Education/Training Program; Visit Provider Internal Medicine Cardiovascular Disease | DX: I42.9 Cardiomyopathy, unspecified (principal); I50.9 Heart failure, unspecified | CPT/HCPCS: 99212 ==

== ENCOUNTER 2025-05-22 15:29 | Outpatient (REF) | payer OTHER, SELFPAY ==
--- NOTE | ~2025-05-22 | US_ITS ---
EXAMINATION: US THYROID CLINICAL INFORMATION: 1.4 cm thyroid nodule identified on a recent CT chest. COMPARISON: None available. TECHNIQUE: Linear transducer grayscale and color Doppler examination with attention to the region of the thyroid. FINDINGS: SIZE: Measurements of the thyroid lobes and nodules are given in sagittal, anteroposterior and transverse dimensions respectively. Right Thyroid Lobe: 4.4 x 3.6 x 2.0 cm, volume 16.6 mL. Parenchyma: The gland echotexture is normal. Thyroid vascularity is normal. Left Thyroid Lobe: 3.6 x 1. x 1.3 cm, volume mL. Parenchyma: The gland echotexture is normal. Thyroid vascularity is normal. Isthmus: 0.3 cm in maximum AP dimension. Estimated total number of nodules greater than or equal to 1 cm: 2. Behaviour Support Teacher nodules are described as follows: 1. Location: Right] lobe, midportion. Size: 2.0 x 1.4 x 2.0 cm, volume 2.9 mL. Nodule characteristics: Composition: Solid (2). Echogenicity: Hyperechoic (1). Shape: Not taller than wide (0). Margins: Smooth (0). Echogenic Foci: None (0). ACR TI-RADS total points: 3 ACR TI-RADS category: 3 2. Location: Right lobe, lower pole.. Size: 2.3 x 1.7 x 2.0 cm, volume 4.0 mL. Nodule characteristics: Composition: Cystic(0). Echogenicity: Anechoic (0). Shape: Not taller than wide (0). Margins: Smooth (0). Echogenic Foci: None (0). ACR TI-RADS total points: 0 ACR TI-RADS category: 1 3. Location: Left lobe, midportion. Size: 0.7 x 0.3 x 0.6 cm, volume 0.05 mL. Nodule characteristics: Composition: Solid (2). Echogenicity: Hyperechoic (1). Shape: Not taller than wide (0). Margins: Ill defined Echogenic Foci: Macrocalcifications (1). ACR TI-RADS total points: 4 ACR TI-RADS category: 4 US/US thyroid IMPRESSION: ACR TI-RADS category: 3 and 4 ACR TI-RADS RECOMMENDATION REFERENCE: Ultrasound-guided fine-needle aspiration, followup ultrasound, no further follow up. * TR1 (0 point) and TR2 (2 points): No FNA or follow up. * TR3 (3 points): FNA if more than or equal to 2.5 cm in maximum dimension, followup ultrasound in 1, 3 and 5 years if 1.5 to 2.4 cm in maximum dimension. * TR4 (4-6 points): FNA if more than or equal to 1.5 cm in maximum dimension, followup ultrasound in 1, 2, 3 and 5 years if 1 to 1.4 cm in maximum dimension. * TR5 (more than or equal to 7 points): FNA if more than or equal to 1 cm in maximum dimension, followup ultrasound every year for 5 years if 0.5 to 0.9 cm in maximum dimension. * TR3, TR4 or TR5 nodules that are below the size threshold for followup receive no follow up. Electronically signed by: Jose Luis Levine MD 05/23/2025 07:23 AM EDT
--- OUTSIDE RECORDS SUMMARY | 2025-05-22 16:39 | XMS_ITS ---
Author Name Estrada CHILD AND ADOLESCENT PSYCHOLOGIST,ENVIRONMENTAL HEALTH AND SAFETY LEADER,FN P,SITE HEAD, Miranda Address [address] [place] [address] Phone [phone] [facility] Care Team Providers Care Mental Health Worker Name Role Phone Miranda Estrada Unavailable [phone] Unavailable Unavailable Unavailable Unavailable Unavailable Unavailable Unavailable Unavailable [phone] [facility] [place] Unavailable [facility] Unavailable Reason for Referral Not Available [...] 2022-07-10 No Data Available OneTouch Delica Plus Hligik32H Miscellaneous TEST BLOOD SUGAR TWICE DAILY 2022-07-16 [...] 2023-08-20 No Data Available Deep Sea Nasal [place] 0.65 % Solution USE 1 SPRAY IN [...] follow up on : Spoke with member's PUBLIC BATH ATTENDANT who lives next door. Member has been [...] on 12/01/24 to get ROS and for PUBLIC BATH ATTENDANT to do VS, and LVM. Will follow [...] on 06/19/2023RX: metoprolol, furosemide, amlodipinemonitor for fluid [id number] na diet, 2L fluid restrictionhas chronic edema, [...] 1111F, BP, A1c or other CPTII codes [facility] [place] 04/20/2023 Encounter for other specifie d aftercare RN, CN or CP time with patient by phone; use with 1111F, BP, A1c or other CPTII codes [facility] [place] 04[place]/2023 RN, CN or CP time with patient by phone; use with 1111F, BP, A1c or other CPTII codes [facility] [place] 06/11/2023 Encounter for other specifie d aftercare RN, CN or CP time with patient by phone; use with 1111F, BP, A1c or other CPTII codes [facility] [place] 06/[place]2023 New patient,40-59min; chronic exacerbation, 2 stable chronic or 1 acute illness add add modifier 95 for video (do not use for phone, instead use 47253-41) [facility] [place] 06/19/2023 Type 2 diabetes mellitus wit h diabetic chronic kidney diseaseChronic kidney disease, stage 3bObesity, unspecifiedPain in right toe(s)Pain in left toe(s)Other persistent atrial fibrillationOther thrombophiliaHeart failure, unspecifiedSecondary hyperaldosteronismBody mass index (bmi) 33.0-33.9, adult New patient,40-59min; chronic exacerbation, 2 stable chronic or 1 acute illness add add modifier 95 for video (do not use for phone, instead use 80383-20) [facility] [place] 06[place]19[place]20[place] New patient,40-59min; chronic exacerbation, 2 stable chronic or 1 acute illness add add modifier 95 for video (do not use for phone, instead use 38362-75) [facility] [place] New patient,40-59min; chronic exacerbation, 2 stable chronic or 1 acute illness add add modifier 95 for video (do not use for phone, instead use 33776-26) [facility] [place] New patient,40-59min; chronic exacerbation, 2 stable chronic or 1 acute illness add add modifier 95 for video (do not use for phone, instead use 89306-67) [facility] [place] New patient,40-59min; chronic exacerbation, 2 stable chronic or 1 acute illness add add modifier 95 for video (do not use for phone, instead use 51684-80) [facility] [place]20[place] New patient,40-59min; chronic exacerbation, 2 stable chronic or 1 acute illness add add modifier 95 for video (do not use for phone, instead use 29127-65) [facility] [place] 06[place] [facility] [place]2023 Pain in right toe(s)Pain in left toe(s) No Data Available [facility] [place] 08/[place] [facility] [place] 08[place] [facility] [place]2023 Pain in right toe(s)Pain in left toe(s) No Data Available [facility] [place] 09[place] [facility] [place]20[place] History of fallingType 2 diabetes mellitus with diabetic chronic kidney diseaseChronic kidney disease, stage 3bOther problems related to medical facilities and other health care No Data Available [facility] [place] 11/[place]/[address] [facility] [place] [facility] [place]2023 Other specified counselingOt her problems related to medical facilities and other health care No Data Available [facility] [place] 12/[place]/[address] [facility] [place] 12/[place]/2023 Acute upper respiratory infection, unspecified No Data Available [facility] [place] 01/20/2024 Dizziness and giddinessHisto ry of falling No Data Available [facility] [place] 01/20/[address] [facility] [place] 03/[place]/2024 Repeated fallsHistory of fallingDizziness and giddiness No Data Available [facility] [place] 03/[place]/20[place] Estab. patient 20-29min; 1 stable chronic or 2 minor; add add modifier 95 for video, modifier [address] [facility] [place] 04[place]13/2024 Hypertensive heart disease w ith heart failureHeart failure, unspecifiedSecondary hyperaldosteronismOther problems related to medical facilities and other health care Estab. patient 20-29min; 1 stable chronic or 2 minor; add add modifier 95 for video, modifier [address] [facility] [place] 04/13/20[place] Estab. patient 20-29min; 1 stable chronic or 2 minor; add add modifier 95 for video, modifier [address] [facility] [place] 04/13/[address] [facility] [place]/2024 Pneumonia, unspecified organismType 2 diabetes mellitus with diabetic chronic kidney diseaseChronic kidney disease, stage 3bType 2 diabetes mellitus with diabetic neuropathy, unspecifiedHeart failure, unspecifiedSecondary hyperaldosteronismOther thrombophiliaOther persistent atrial fibrillationOther problems related to medical facilities and other health careHyp hrt & chr kdny dis w hrt fail and stg 1-unsp chr kdny No Data Available [facility] [place] 09/[place]/[address] [facility] [place] Estab. patient 30-39min; chronic exacerbation, 2 stable chronic or 1 acute illness add add modifier 95 for video, (do not use for phone, instead use 70700-75) [facility] [place]20[place] Type 2 diabetes mellitus wit h [...] (do not use for phone, instead use 90234-97) [facility] [place] Estab. patient 30-39min; chronic exacerbation, 2 stable chronic or 1 acute illness add add modifier 95 for video, (do not use for phone, instead use 56680-07) [facility] [place] Estab. patient 30-39min; chronic exacerbation, 2 stable chronic or 1 acute illness add add modifier 95 for video, (do not use for phone, instead use 11996-98) [facility] [place] Estab. patient 30-39min; chronic exacerbation, 2 stable chronic or 1 acute illness add add modifier 95 for video, (do not use for phone, instead use 90013-02) [facility] [place] Estab. patient 30-39min; chronic exacerbation, 2 stable chronic or 1 acute illness add add modifier 95 for video, (do not use for phone, instead use 42005-72) [facility] [place] Estab. patient 30-39min; chronic exacerbation, 2 stable chronic or 1 acute illness add add modifier 95 for video, (do not use for phone, instead use 15245-03) [facility] [place] Estab. patient 30-39min; chronic exacerbation, 2 stable chronic or 1 acute illness add add modifier 95 for video, (do not use for phone, instead use 94780-83) [facility] [place] Estab. patient 30-39min; chronic exacerbation, 2 stable chronic or 1 acute illness add add modifier 95 for video, (do not use for phone, instead use 62554-05) [facility] [place] Estab. patient 10-29min; 1 minor problem; add add modifier 95 for video, modifier [address] [facility] [place]/2024 Other persistent atrial fibrillationOther thrombophiliaAnemia, unspecifiedOther problems related to medical facilities and other health care Estab. patient 10-29min; 1 minor problem; add add modifier 95 for video, modifier [address] [facility] [place]/01/2024 Vital Signs Date of Collection Vitals [...] tive Time Current Smoking Status Never smoker 2025-05-09 4 Sex Female History of Procedures Procedures Service Procedure code Service date Servicing provider Phone# RN, CN or CP time with patient by phone; use with 1111F, BP, A1c or other CPTII codes 28865 2023-04-20 No Data Available No Data Avai lable Medications prescribed in hospital were reviewed and reconciled against what they were taking prior to admission during today's visit. (1111F) 1111F 2023-04-20 No Data Available No Data Availa ble RN, CN or CP time with patient by phone; use with 1111F, BP, A1c or other CPTII codes 25612 2023-06-11 No Data Available No Data Avai lable Medications prescribed in hospital were reviewed and reconciled against what they were taking prior to admission during today's visit. (1111F) 1111F 2023-06-11 No Data Available No Data Availa ble New patient,40-59min; chronic exacerbation, 2 stable chronic or 1 acute illness add add modifier 95 for video (do not use for phone, instead use 66842-05) 10243 2023-06-19 No Data Available No Data Availa [...] Available Advance care planning discussed and documented advance care plan or surrogate decision-maker was [...] 95 for video, modifier 93 for phone 69121 2024-04-13 No Data Available No Data Availa [...] (do not use for phone, instead use 19315-59) 49900 2024-10-11 No Data Available No Data Availa [...] ble Advance care planning discussed and documented advance care plan or surrogate decision-maker was [...] 95 for video, modifier 93 for phone 39980 2024-12-01 No Data Available No Data Availa [...] documented (1126F)Advance care planning discussed and documented advance care plan or surrogate decision-maker was documented in the medical record. (1123F)Medications prescribed in hospital were reviewed and reconciled against what they were taking prior to admission during today's visit. (1111F)Advance care planning discussed and documented in the medical record beneficiary/patient did not wish to or was [...] provider prescribed TramadolWifaye ask PCP re lyricaLidocaine creamOffered narcan but [...] 5am and is in the ER at [facility]. I have requested records. Not clear if she will be admitted. 2024-04-13 14:43:06 Discharge medication s reconciled with current medication listTelevideo 20-29min; 1 stable chronic or 2 minor; add modifier 95Advance care planning discussed and documented advance care plan or surrogate decision-maker was documented in the medical record. (1123F)Advance care planning discussed and documented in the medical record beneficiary/patient did not wish to or was [...] mucinex prn, continue antibiotic as prescribed until [id number] 7.0% on 06/19/2023FR 38 on 06/19/2023Ed re [...] record (1158F)Advance care planning discussed and documented advance care plan or surrogate decision-maker was [...] pericardial effusion.RX: metoprolol, furosemide, amlodipinemonitor for fluid [id number] na diet, 2L fluid restrictionhas chronic edema, lymphedema machineHas cardiology f/u on 10/26/24States PCP did not refill her amlodipine, question if they are holding due to frequent falls, will request recordsHas BP cuff in the home, encouraged to check her BP daily 2 hours after AM meds given and keep a log to bring to cards appt, CB to f/as scale, does not weigh self daily, per [...] easy bruising, no traumaCards follow up on 12/18/24No redness, no swelling, no calor, no fever. [...] follow up on : Spoke with member's PUBLIC BATH ATTENDANT who lives next door. Member has been [...] on 12/01/24 to get ROS and for PUBLIC BATH ATTENDANT to do VS, and LVM. Will follow [...] and precipitating factors: 04/06/24 - 04/07/24 at [facility] 2024-12-01 DANIEL review: Kidney Health Evaluation for Patients with Diabetes (KED):UrineKidney Health Evaluation for Patients with Diabetes (KED):BloodControlling High Blood Pressure < 140/90
--- OUTSIDE RECORDS SUMMARY | 2025-05-22 16:40 | XMS_ITS | Clinical Summary ---
Author Organization [facility] Facility Address [address] [place] [id number] Care Team Providers Care Material Carrier Name Role Phone Areli Song Primary Care Provider [phone] Allergies Active Allergy Reactions Criticality Noted Date [...] each day 06/04/2021 Active Calcium Citrate-Vitamin D (Stamps Calcium/Vitamin D) 200-250 MG-UNIT tablet Take 2 [...] 11/04/2023, 11/03/2023, Additional history exists Influenza Vaccine (#1) 2025 3, 09/08/2022, 10/02/2021, Additional history exists Hepatitis B Vaccine Aged Out 08/24/2014, 04/10/2014, 02/02/2014 No longer eligible based on patient's age to complete this topic Pneumococcal Vaccine: 50+ Years Completed 07/20/2023, 10/23/2017, 11/06/2015, Additional history exists Pneumococcal Vaccine: Peds (0 to 5 Years) and At-Risk Patients (6 to 49 Years) Discontinued 07/20/2023, 10/23/2017, 11/06/2015, Additional history exists Insurance [employer] ([id number]) [address] [place] [id number] [id number] Care Teams Material Carrier Relationship Specialty Start Date End Date Areli Song PCP - General Family Medicine 06/17/21
--- OUTSIDE RECORDS SUMMARY | 2025-05-22 16:40 | XMS_ITS | Encounter Summary ---
Author Organization [employer] Address [address] [place] [address] 7 [place] [address] Care Team Providers Care Reverberatory Furnace Supervisor Name Role Phone Flor Marie MD Primary Care Pro vider Reason for Visit * Reason Comments Med Refill Encounter Details Date Type Department Care Team ([facility] st Contact Info) Description 08/11/2024 Refill [facility] [address] [place] [phone] Flor Marie MD [address] [place] [phone] Social History Tobacco Use Types Packs/Day Years [...] Care Team (Late st Contact Info) Description 06/20/2025 1:00 PM EDT Office Visit [facility] [address] [place] [phone] Flor Marie MD [address] [place] [address] documented as of this encounter Visit Diagnoses Not on filedocumented in this encounter Additional Health Concerns Assessment Noted Time PHQ-9 Depression Total Score: 19 023 2:14 PM EDT documented as of this encounter Care Teams Reverberatory Furnace Supervisor Relationship Specialty Start Date End Date Flor Marie MD [address] [place] [phone] PCP - General Internal Medicine 05/18/23 [facility] 01/17/25 documented as of this encounter
== END 2025-05-22 15:30 | disposition home or self-care (01) ==
LOC: HO.US 15:29
PROVIDERS: Visit Provider Student in an Organized Health Care Education/Training Program
DX: E04.1 Nontoxic single thyroid nodule (principal)
CPT/HCPCS: 76536

== ENCOUNTER → 2025-05-22 15:31 | Outpatient (BNV) | payer OTHER, SELFPAY | PROVIDERS: Visit Provider Radiology Diagnostic Radiology | DX: E04.2 Nontoxic multinodular goiter (principal) | CPT/HCPCS: 76536 ==

== ENCOUNTER 2025-06-14 10:53 | Outpatient (REF) | payer OTHER, SELFPAY ==
--- OUTSIDE RECORDS SUMMARY | 2025-06-14 11:34 | XMS_ITS | Clinical Summary ---
Author Organization [facility] Address [address] [place] [address] Care Team Providers Care Union Laborer Name Role Phone Areli Song Primary Care Provider [phone] Allergies Active Allergy Reactions Criticality Noted Date [...] each day 06/04/2021 Active Calcium Citrate-Vitamin D ([place] Calcium/Vitamin D) 200-250 MG-UNIT tablet Take 2 [...] 07/20/2023, 10/23/2017, 11/06/2015, Additional history exists Insurance [id number] ([id number]) [address] [place] [id number] [id number]) Care Teams Union Laborer Relationship Specialty Start Date End Date Areli Song PCP - General Family Medicine 06/17/21
--- OUTSIDE RECORDS SUMMARY | 2025-06-14 11:34 | XMS_ITS | Clinical Summary ---
Author Organization [facility] Address [address] [place] [phone] Phone Care Team Providers Care Whey Department Operator Name Role Phone Flor Marie MD Primary Care Pro vider Allergies Active Allergy Reactions Criticality Noted Date Comments Gabapentin 01/23/2021 Other reaction(s): Itching Montelukast Other (See Comments) 10/31/2010 Other reaction(s): Other (see comments), unspecified Medications triamcinolone acetonide 0.1 % cream Apply 1 Application topically 2 (two) times a day. 4 Active GAS RELIEF EXTRA STRENGTH 125 mg Cap Take 125 mg by mouth 4 (four) times a day as needed. 4 Active SENNA 8.6 mg tablet Take 1 tablet by mouth 2 (two) times a day as needed for constipation. 4 Active metoprolol succinate (TOPROL-XL) 50 MG 24 hr tablet Take 50 mg by mouth every morning. 4 Active metFORMIN (GLUCOPHAGE) 850 MG tablet Take 850 mg by mouth 2 (two) times a day with meals. 4 Active ONETOUCH DELICA PLUS LANCET 33 gauge Misc Inject 1 each into the skin 2 (two) times a day. 4 Active furosemide (LASIX) 40 MG tablet Take 40 mg by mouth 2 (two) times a day. 4 Active fluticasone propion-salmeter oL (ADVAIR DISKUS) 250-50 mcg/dose DISKUS Inhale 250 mcg/actuation of fluticasone into the lungs 2 (two) times a day. 4 Active ferrous gluconate 324 mg (38 mg elemental) tablet Take 1 tablet by mouth 2 (two) times a day. 4 Active famotidine (PEPCID) 20 MG tablet Take 1 tablet by mouth 2 (two) times a day. 4 Active DULoxetine (CYMBALTA) 30 MG capsule Take 30 mg by mouth daily. 4 Active docusate sodium (COLACE) 100 MG capsule Take 1 capsule by mouth 2 (two) times a day. 4 Active clopidogrel (PLAVIX) 75 mg tablet Take 75 mg by mouth every morning. 4 Active ONETOUCH VERIO Strp strips 1 each 2 (two) times a day. 4 Active atorvastatin (LIPITOR) 80 MG tablet Take 1 tablet by mouth every morning. 4 Active ELIQUIS 5 mg tablet Take 1 tablet by mouth 2 (two) times a day. 4 Active ALCOHOL PREP PADS PadM Apply 1 each topically 2 (two) times a day. 4 Active albuterol 2.5 mg /3 mL (0.083 %) nebulizer solution Take 2.5 mg by nebulization every 6 (six) hours as needed. 4 Active acetaminophen (TYLENOL) 325 mg tablet Take 325 mg by mouth every 8 (eight) hours as needed. 4 Active pyridoxine, vitamin B6, (B-6) 100 MG tablet Take 100 mg by mouth daily. Active traMADoL (ULTRAM) 50 mg tablet Take 50 mg by mouth every 6 (six) hours as needed for pain (specific location in comments). Active traZODone (DESYREL) 50 MG tablet Take 50 mg by mouth nightly at bedtime. Active cholecalciferol (VITAMIN D3) 2,000 unit capsuleIndicatio ns:Age-related osteoporosis without current pathological fracture Take 1 capsule (2,000 Units total) by mouth daily. 90 capsule 3 4 Active calcium citrate-vitamin D3 315 mg-6.25 mcg (250 unit) per tabletIndication s:Age-related osteoporosis without current pathological fracture,Nephrol ithiasis Take 1 tablet by mouth 2 (two) times a day. 180 tablet 5 Active Active Problems Problem Noted Date Diagnosed Date Nephrolithiasis 03/16/2024 Assessment & Plan (06/16/2024 2:45 PM EDT): Previously I informed her that she should not stop calcium because this is contraindicated this will actually result in more calcium stones I told her to take calcium citrate which will actually help. Limit salt intake. Drink plenty of water. She still has nephrolithiasis. But appears not to have any new stones. Assessment & Plan (03/16/2024 2:38 PM EDT): The patient needs to take calcium and vitamin D supplements in order to maintain bone mineral density at an appropriate level and to prevent osteoporosis. My recommendation to prevent nephrolithiasis will be to increase hydration, maintain low-salt diet and use hydrochlorothiazide if tolerated. Citrates also help prevent stone formation so taking citrate supplements (calcium citrate). Decreasing oxalates helps with prevention of calcium oxalate stones. Increasing sodium unfortunately will cause hypercalciuria leading to stone formation, so sodium intake should be limited. Other that can be done besides limiting salt intake is limiting protein and dietary acid load. Limit sweetened sodas and drink coffee, tea, beer, wine or orange juice which is less associated with stones. However, juice and coffee may be acidic and acid intake is supposed to be decreased, so one has to balance the diet. Increasing fluid intake may help and increasing vegetables. Calcium intake should not be limited. Calcium binds oxalate in the GI tract preventing oxalate absorption which can help with prevention of calcium oxalate stones. The fact that there is nephrolithiasis does not necessarily mean that calcium is not being absorbed. Vitamin D deficiency 03/16/2024 Assessment & Plan (06/16/2024 2:43 PM EDT): On the last visit I prescribed vitamin D supplements she is getting obtain lab work I asked her to just get it done today. Assessment & Plan (03/16/2024 2:40 PM EDT): The patient is vitamin D deficient I will renew cholecalciferol 2000 units and repeat levels in 3 months. Age-related osteoporosis wit hout current pathological fracture 02/03/2024 Assessment & Plan (06/16/2024 2:44 PM EDT): Unfortunately she has not schedule DXA scan. I told her that it is best at this point to go through [facility] because she can get this study done faster. At [facility] is going to take over a year to get it done. She is now taking calcium and vitamin D. We have not prescribed antiresorptive medications because antiresorptive medications will not work if she is vitamin D deficient and if she is not getting adequate calcium intake. Assessment & Plan (03/16/2024 2:45 PM EDT): On biochemical evaluation I found that the patient is vitamin D deficient furthermore 24 urine calcium output is low but she is no longer taking calcium supplements because she had developed nephrolithiasis and hydronephrosis. But if she does not take adequate calcium in her diet or at least take supplements she is going to have worsening osteoporosis. She also needs the vitamin D to absorb the calcium. If she is developing nephrolithiasis the answer is not to stop calcium and vitamin D intake because she obviously needs this. She needs to find now what type of calcium oxalate stones and see urologist to help her determine how to limit the production of nephrolithiasis. Presently the patient has been off antiresorptive medications for the last 2 years. She is due for repeat DXA scan on May 22/2024 this has been requested. Prescribing antiresorptive medications with vitamin D deficiency will be ineffective because vitamin D levels have to be replete in order for the antiresorptive medications to work. She will follow in 3 months time. Assessment & Plan (02/03/2024 12:21 PM EDT): This is a patient diagnosed with osteopenia in 04/20/2003. She was treated with antiresorptive medication send bone mineral density improved. She has been off antiresorptive medications for least 2 years now and again has osteoporosis based on the latest DXA scan done on 05/22/2022. Her risk factors for osteoporosis include age, menopause, use of anticoagulants and proton pump inhibitors. She is also vitamin D deficient. It is possible that she may not be taking enough calcium. Biochemical studies shows that she has hyperparathyroidism and has history of nephrolithiasis so it is possible that she may have primary hyperparathyroidism although serum calcium levels are not elevated. At this point I will request biochemical workup for evaluation of secondary causes of osteoporosis. Encounters Date Type Department Care Team Description 04/05/2025 Refill [facility] [address] [place] [address] Lc Haynes DO Medication Refill from Last 3 Months Family History Medical History Relation Comments No Known Problems Father Tuberculosis Mother Relation Status Comments Father Mother Sister Alive Social History Tobacco Use Types Packs/Day Years Used Date Smoking Tobacco: Never Smokeless Tobacco: Never Alcohol Use Standard Drinks/Week Comments Never 0 (1 standard drink = 0.6 oz pur e alcohol) Education Answer Date Recorded Are you interested in more education? Not on simba e 03/06/2023 Are you concerned about learning? Not on file 03/06/2023 No 03/06/2023 No 03/06/2023 Digital Access Answer Date Recorded No 04/06/2023 No 04/06/2023 Reliable internet access at home? Not on file 04/06/2023 Device with a working camera? Not on file Comments Unknown Sex and Gender Information Value Date Recorded Sex Assigned at Not on file Legal Sex Female 10:38 PM EDT Gender Identity Not on file Sexual Orientation Not on file Last Filed Vital Signs Vital Sign Reading Time Taken Comments Blood Pressure 144/78 06/16/2024 2:27 PM EDT Pulse 63 06/16/2024 2:27 PM EDT Temperature 36.1 C (97 F) 02/03/2024 11:22 AM EDT Respiratory Rate - - Oxygen Saturation 98% 06/16/2024 2:27 PM EDT Inhaled Oxygen Concentration - - Weight 85.7 kg (189 lb) 06/16/2024 2:27 PM EDT Height 158.4 cm (5' 2.36 ) 06/16/2024 2:27 PM ED T Body Mass Index 34.17 06/16/2024 2:27 PM EDT Plan of Treatment Upcoming Encounters Date Type Department Care Team (Late st Contact Info) Description 07/25/2025 1:20 PM EDT Office Visit [facility] [address] [place] [address] [place] [address] Lc Haynes DO [address] [place] [phone] [email or web address] Health Maintenance Due Date Last Done Comments DEPRESSION SCREENING 1957 RSV VACCINE (1 - 1-dose 75+ series) 02/03/2019 COVID-19 VACCINE (2 - 2023-2 5 season) 2024 03/25/2021 CREATININE LEVEL 02/09/2025 02/10/2024, 02/09/2024 Adult Td,Tdap Booster 07/20/2033 07/20/2023 , 02/24/2013, 03/09/1995 PNEUMOCOCCAL VACCINES (50+ years) Completed 10/23/2017, 11/06/2015, 11/28/2009 ZOSTER VACCINES Completed 06/08/2020, 11/15/2019, 07/20/2015 OSTEOPOROSIS SCREENING INITI AL (ONE-TIME) Completed 07/13/2024, 03/16/2024 HEPATITIS A VACCINES Aged Out No long er eligible based on patient's age to complete this topic HIB VACCINES Aged Out No longer eligi ble based on patient's age to complete this topic MENINGOCOCCAL VACCINES (ACWY) Aged Out No longer eligible based on patient's age to complete this topic MENINGOCOCCAL VACCINES (B) Aged Out N o longer eligible based on patient's age to complete this topic Medical Devices Not on file Procedures Procedure Name Priority Date/Time Associated Diagnosis Comments BD DXA MONITORING Routine 07/13/2024 11: 35 AM EDT Age-related osteoporosis without current pathological fracture COMPREHENSIVE METABOLIC PANEL Routine 02/10/2024 10:17 AM EDT Age-related osteoporosis without current pathological fracture from Last 3 Months or Most Recently Relevant to Health Maintenance Results * DXA Monitoring (07/13/2024 11:35 AM EDT) Anatomical Region Laterality Modality Bone Density Bone Density Lc Haynes DO IMG BD BONE DENSITY DEXA Final R esult * (ABNORMAL) Comprehensive metabolic panel (02/10/2024 10:17 AM EDT) SODIUM 142 133 - 146 mmol/L [facility] POTASSIUM 4.1 3.3 - 5.1 mmol/L [facility] CHLORIDE 104 96 - 108 mmol/L [facility] CO2 30 21 - 35 mmol/L [facility] BUN 28(H) 6 - 19 mg/dL [facility] CREATININE 0.90 0.5 - 1.5 mg/dL [facility] GLUCOSE 128(H) 70 - 99 mg/dL [facility] ALBUMIN 4.3 3.9 - 4.8 g/dL [facility] TOTAL PROTEIN 7.2 6.5 - 8.0 g/dL [facility] CALCIUM 9.4 8.4 - 10.3 mg/dL [facility] ALKALINE PHOSPHATASE 97 39 - 117 U/L [facility] TOTAL BILIRUBIN 0.4 0.0 - 1.2 mg/dL [facility] AST 23 0 - 37 U/L [facility] ALT 14 0 - 40 U/L [facility] GLOBULIN 2.9 1 - 4.8 g/dL [facility] EGFR 65 >59 mL/min/1.7 3m2 [facility] Comment:Estimated glomerular filtration rate calculated using the CKD-EPI refit equation. ANION GAP 12 10 - 20 mmol/L [facility] Blood 02/10/2024 10:1 7 AM EDT 02/10/2024 10:33 AM EDT us Lc Haynes DO LAB BLOOD ORDERABLES Final Resul t [facility] [address] [place] [address] from Last 3 Months or Most Recently Relevant to Health Maintenance Insurance MEDICARE PART A & B [employer] MEDICARE REPLACEMENT MEDICARE PART A & B [facility] MEDICARE REPLACEMENT MEDICARE PART A & B MEDICARE PART A & B MEDICARE PART A & B [employer] MEDIC[employer] REPLACEMENT MEDICARE PART A & B MEDICARE PART A & B MEDICARE REPLACEMENT MEDICARE PART A & B [facility] MEDICARE REPLACEMENT MEDICARE PART A & B [facility] MEDICARE REPLACEMENT Care Teams Whey Department Operator Relationship Specialty Start Date End Date Flor Marie MD [address] [place] [phone] PCP - General Internal Medicine 11/26/23 Additional Source Comments The information contained in this document represents components of the legal health record. It is not the complete legal health record.[facility]
--- OUTSIDE RECORDS SUMMARY | 2025-06-14 11:34 | XMS_ITS ---
Author Name Estrada LICENSE DISTRIBUTOR,BURR BENCH OPERATOR,FN P,WEEKEND ANCHOR, Miranda Address [address] [place] [address] Phone [phone] [facility] Care Team Providers Care Stave Block Splitter Name Role Phone Miranda Estrada Unavailable [phone] Unavailable Unavailable Unavailable Unavailable Unavailable Unavailable Unavailable Unavailable [phone] [facility], [place] Unavailable [phone] [facility], [facility] Unavailable Reason for Referral Not Available [...] 2022-07-10 No Data Available OneTouch Delica Plus [id number] Miscellaneous TEST BLOOD SUGAR TWICE DAILY 2022-07-16 [...] 2023-08-20 No Data Available [employer] 0.65 % Solution USE 1 SPRAY IN [...] follow up on : Spoke with member's PANEL LAMINATOR who lives next door. Member has been [...] on 12/01/24 to get ROS and for PANEL LAMINATOR to do VS, and LVM. Will follow [...] on 06/19/2023RX: metoprolol, furosemide, amlodipinemonitor for fluid [id number] na diet, 2L fluid restrictionhas chronic edema, [...] BP, A1c or other CPTII codes [facility] [place] 04[place]20/2023 Encounter for other specifie d aftercare RN, CN or CP time with patient by phone; use with 1111F, BP, A1c or other CPTII codes [facility] [place] 04/20/2023 RN, CN or CP time with patient by phone; use with 1111F, BP, A1c or other CPTII codes [facility] [place] 06/11/2023 Encounter for other specifie d aftercare RN, CN or CP time with patient by phone; use with 1111F, BP, A1c or other CPTII codes [facility] [place] 06/11/2023 New patient,40-59min; chronic exacerbation, 2 stable chronic or 1 acute illness add add modifier 95 for video (do not use for phone, instead use [id number]) [facility] 06[place]19[place]2023 Type 2 diabetes mellitus wit h diabetic chronic kidney diseaseChronic kidney disease, stage 3bObesity, unspecifiedPain in right toe(s)Pain in left toe(s)Other persistent atrial fibrillationOther thrombophiliaHeart failure, unspecifiedSecondary hyperaldosteronismBody mass index (bmi) 33.0-33.9, adult New patient,40-59min; chronic exacerbation, 2 stable chronic or 1 acute illness add add modifier 95 for video (do not use for phone, instead use 42414-99) [facility] [place] 06[place]19[place] New patient,40-59min; chronic exacerbation, 2 stable chronic or 1 acute illness add add modifier 95 for video (do not use for phone, instead use 40920-90) [facility] New patient,40-59min; chronic exacerbation, 2 stable chronic or 1 acute illness add add modifier 95 for video (do not use for phone, instead use 95397-82) [facility] New patient,40-59min; chronic exacerbation, 2 stable chronic or 1 acute illness add add modifier 95 for video (do not use for phone, instead use 76908-09) [facility] New patient,40-59min; chronic exacerbation, 2 stable chronic or 1 acute illness add add modifier 95 for video (do not use for phone, instead use 97021-61) [facility] 06[place]19[place] New patient,40-59min; chronic exacerbation, 2 stable chronic or 1 acute illness add add modifier 95 for video (do not use for phone, instead use 97166-96) [facility] 06/[place] [facility]2023 Pain in right toe(s)Pain in left toe(s) No Data Available [facility] 08/[place] [facility] 08[place] [facility]/2023 Pain in right toe(s)Pain in left toe(s) No Data Available [facility] 09/[place] [facility] 11[place]2023 History of fallingType 2 diabetes mellitus with diabetic chronic kidney diseaseChronic kidney disease, stage 3bOther problems related to medical facilities and other health care No Data Available [facility] 11/[place]/[address] [facility] 11/[place]/[address] [facility] [place] 12/23/2023 Other specified counselingOt her problems related to medical facilities and other health care No Data Available [facility] [place] 12/[place]/[address] [facility] [place] 12/24/2023 Acute upper respiratory infection, unspecified No Data Available [facility] [place] 01/20/2024 Dizziness and giddinessHisto ry of falling No Data Available [facility] [place] 01/20/[address] [facility] 03/15/2024 Repeated fallsHistory of fallingDizziness and giddiness No Data Available [facility] [place] 03/15/2024 Estab. patient 20-29min; 1 stable chronic or 2 minor; add add modifier 95 for video, modifier [address] [facility] [place] 04[place]13/2024 Hypertensive heart disease w ith heart failureHeart failure, unspecifiedSecondary hyperaldosteronismOther problems related to medical facilities and other health care Estab. patient 20-29min; 1 stable chronic or 2 minor; add add modifier 95 for video, modifier [address] [facility] [place] 04/13/2024 Estab. patient 20-29min; 1 stable chronic or 2 minor; add add modifier 95 for video, modifier [address] [facility] [place] 04/13/[address] [facility] [place] 09/30/2024 Pneumonia, unspecified organismType 2 diabetes mellitus with diabetic chronic kidney diseaseChronic kidney disease, stage 3bType 2 diabetes mellitus with diabetic neuropathy, unspecifiedHeart failure, unspecifiedSecondary hyperaldosteronismOther thrombophiliaOther persistent atrial fibrillationOther problems related to medical facilities and other health careHyp hrt & chr kdny dis w hrt fail and stg 1-unsp chr kdny No Data Available [facility] [place] 09/[place]/[address] [facility] [place] 09[place]/20[place] Estab. patient 30-39min; chronic exacerbation, 2 stable chronic or 1 acute illness add add modifier 95 for video, (do not use for phone, instead use 66596-31) [facility] [place] 10/11/2024 Type 2 diabetes mellitus wit h [...] (do not use for phone, instead use 02749-93) [facility] [place] 10[place]11/[place] Estab. patient 30-39min; chronic exacerbation, 2 stable chronic or 1 acute illness add add modifier 95 for video, (do not use for phone, instead use 45270-24) [facility] [place] 10[place]11/20[place] Estab. patient 30-39min; chronic exacerbation, 2 stable chronic or 1 acute illness add add modifier 95 for video, (do not use for phone, instead use 95048-07) [facility] [place] 10[place]11/[place] Estab. patient 30-39min; chronic exacerbation, 2 stable chronic or 1 acute illness add add modifier 95 for video, (do not use for phone, instead use 73933-79) [facility] [place] 10[place]/20[place] Estab. patient 30-39min; chronic exacerbation, 2 stable chronic or 1 acute illness add add modifier 95 for video, (do not use for phone, instead use 29756-06) [facility] [place] 10[place]11/[place] Estab. patient 30-39min; chronic exacerbation, 2 stable chronic or 1 acute illness add add modifier 95 for video, (do not use for phone, instead use 75445-34) [facility] Estab. patient 30-39min; chronic exacerbation, 2 stable chronic or 1 acute illness add add modifier 95 for video, (do not use for phone, instead use 33622-69) [facility] Estab. patient 30-39min; chronic exacerbation, 2 stable chronic or 1 acute illness add add modifier 95 for video, (do not use for phone, instead use 34498-87) [facility] [place]/20[place] Estab. patient 10-29min; 1 minor problem; add add modifier 95 for video, modifier [address] [facility] [place] 12/01/2024 Other persistent atrial fibrillationOther thrombophiliaAnemia, unspecifiedOther problems related to medical facilities and other health care Estab. patient 10-29min; 1 minor problem; add add modifier 95 for video, modifier [address] [facility] [place] 12/01/2024 Vital Signs Date of Collection Vitals [...] tive Time Current Smoking Status Never smoker 6 Sex Female History of Procedures Procedures Service Procedure code Service date Servicing provider Phone# RN, CN or CP time with patient by phone; use with 1111F, BP, A1c or other CPTII codes 47822 2023-04-20 No Data Available No Data Avai lable Medications prescribed in hospital were reviewed and reconciled against what they were taking prior to admission during today's visit. (1111F) 1111F 2023-04-20 No Data Available No Data Availa ble RN, CN or CP time with patient by phone; use with 1111F, BP, A1c or other CPTII codes 42073 2023-06-11 No Data Available No Data Avai lable Medications prescribed in hospital were reviewed and reconciled against what they were taking prior to admission during today's visit. (1111F) 11112023-06-11 No Data Available No Data Availa ble New patient,40-59min; chronic exacerbation, 2 stable chronic or 1 acute illness add add modifier 95 for video (do not use for phone, instead use 84373-65) 31574 2023-06-19 No Data Available No Data Availa ble Medication List Documented (1159F) 1159F 2023-06-19 No Data Available No Data Funmi ilable Medication Review by prescribing provider or pharmacist documented (1160F) 1160F 2023-06-19 No Data Available No Data Ufnmi ilable Advance Care Directive Advance care planning [...] 95 for video, modifier 93 for phone 11787 2024-04-13 No Data Available No Data Availa [...] (do not use for phone, instead use 19312-34) 66821 2024-10-11 No Data Available No Data Availa [...] 95 for video, modifier 93 for phone 11274 2024-12-01 No Data Available No Data Availa [...] 5am and is in the ER at [facility]. I have requested records. Not clear [...] mucinex prn, continue antibiotic as prescribed until [id number] 7.0% on 06/19/2023FR 38 on 06/19/2023Ed re [...] pericardial effusion.RX: metoprolol, furosemide, amlodipinemonitor for fluid [id number] na diet, 2L fluid restrictionhas chronic edema, [...] follow up on : Spoke with member's PANEL LAMINATOR who lives next door. Member has been [...] on 12/01/24 to get ROS and for PANEL LAMINATOR to do VS, and LVM. Will follow [...]
--- OUTSIDE RECORDS SUMMARY | 2025-06-14 11:34 | XMS_ITS | Encounter Summary ---
Author Organization [email or web address] Address [address] [place] [address] [address] [place] [address] Care Team Providers Care Therapist Asst Name Role Phone Flor Marie MD Primary Care Pro vider Reason for Visit * Reason Comments Med Refill Encounter Details Date Type Department Care Team ([facility] st Contact Info) Description 08/11/2024 Refill [facility] [address] [place] [address] Flor Marie MD [address] [place] [address] Social History Tobacco Use Types Packs/Day Years [...] Description 06/20/2025 1:00 PM EDT Office Visit [facility] [address] [place] [address] Flor Marie MD [address] [place] [address] documented as of this encounter Visit Diagnoses Not on filedocumented in this encounter Additional Health Concerns Assessment Noted Time PHQ-9 Depression Total Score: 19 023 2:14 PM EDT documented as of this encounter Care Teams Therapist Asst Relationship Specialty Start Date End Date Flor Marie MD [address] [place] [address] PCP - General Internal Medicine 05/18/23 [facility] 01/17/25 documented as of this encounter
[2025-06-14 13:45] LABS: Hematocrit 34.0 % (37.0-47.0); Hemoglobin 10.9 g/dl (12.0-16.0); Mean Corpuscular HGB Conc 32.1 g/dl (31.0-35.0); Mean Corpuscular Hemoglobin 28.2 pg (27.0-33.0); Mean Corpuscular Volume 87.9 fL (80.0-98.0); NRBC Abs Auto 0.000 X10*3/uL (0.0-0.012); NRBC Pct Auto 0.0 /100WBC (0.0-0.2); Platelet Count 253 X10*3/uL (160-400); Red Blood Count 3.87 X10*6/uL (4.20-5.50); White Blood Count 5.4 X10*3/uL (4.8-10.8)
[2025-06-14 13:55] LABS: Anion Gap 14 (12-20); Blood Urea Nitrogen 28 mg/dL (9-16); Calcium 9.4 mg/dL (8.4-10.2); Carbon Dioxide 31 mmol/L (22-29); Chloride 102 mmol/L (96-108); Estimated Glomerular Filt Rate 38; Potassium 3.7 mmol/L (3.3-5.1); Sodium 143 mmol/L (135-145)
[2025-06-14 13:57] LABS: Alanine Aminotransferase 13 U/L (0-31); Albumin Level 4.1 g/dL (3.5-5.0); Alkaline Phosphatase 92 U/L (39-117); Anion Gap 13 (12-20); Aspartate Amino Transferase 21 U/L (5-31); Blood Urea Nitrogen 28 mg/dL (9-16); Calcium 9.4 mg/dL (8.4-10.2); Carbon Dioxide 31 mmol/L (22-29); Chloride 103 mmol/L (96-108); Cholesterol 170 mg/dL (<200); Estimated Glomerular Filt Rate 37; HDL Cholesterol 48 mg/dL (>40); Iron 59 mcg/dL (30-160); Percent Iron Saturation 24 % (15-50); Potassium 3.7 mmol/L (3.3-5.1); Sodium 143 mmol/L (135-145); Total Iron Binding Capacity 247 mcg/dL (228-428); Total Protein 6.8 g/dL (6.5-8.0); Triglycerides 146 mg/dL (<150); Unsaturated Iron Binding 188 ug/dL
[2025-06-14 14:04] LABS: Hemoglobin A1C 179.7981 umol/L; Total Hemoglobin (HGBA1C) 2908.8966 umol/L
[2025-06-14 14:11] LABS: Gamma Glutamyl Transpeptidase 27 U/L (7-33)
[2025-06-14 14:12] LABS: Microalbum/Creatinine Ratio Ur 90.5 ug/mg cr (<30)
[2025-06-14 14:27] LABS: Folate 8.3 ng/mL (> or = 4.0); Vitamin B12 441 pg/mL (200-900)
[2025-06-14 14:29] LABS: Ferritin 138 ng/mL (10-250)
== END 2025-06-14 10:54 | disposition home or self-care (01) ==
LOC: HO.HHCL 10:53
PROVIDERS: Emergency Medicine; Internal Medicine Cardiovascular Disease; PCP Student in an Organized Health Care Education/Training Program; Visit Provider Student in an Organized Health Care Education/Training Program
DX: Z00.00 Encounter for general adult medical examination without abnormal findings (principal); I10 Essential (primary) hypertension; R42 Dizziness and giddiness
CPT/HCPCS: 36415; 80048; 80053; 80061; 82043; 82306; 82570; 82607; 82728; 82746; 82977; 83036; 83540; 84443; 85027

== ENCOUNTER 2025-06-20 14:08 | Outpatient (REF) | payer OTHER, SELFPAY ==
--- NOTE | ~2025-06-20 | XR_ITS ---
EXAMINATION: XR LUMBOSACRAL SPINE CLINICAL INFORMATION: pain COMPARISON: Correlated to CT dated August 28, 2023. TECHNIQUE: AP and lateral views FINDINGS: Multilevel syndesmophyte formation and marginal osteophyte formation, endplate sclerosis, throughout the axial skeleton. There is a 20% volume loss of the vertebral body T11. There is a grade 1 anterolisthesis at L4-5. There is facet joint hypertrophy at L4-5 and L5-S1. No lytic or blastic lesions. Vascular calcifications, aorta. Probable renal calculus, left side. XR/XR lumbar spine 2-3V IMPRESSION: Multilevel thoracolumbar spondylosis resulting in grade 1 anterolisthesis L4-5. Electronically signed by: Jose Luis Levine MD 06/20/2025 03:28 PM EDT
--- NOTE | ~2025-06-20 | XR_ITS ---
EXAMINATION: XR HIP, RIGHT CLINICAL INFORMATION: pain COMPARISON: Correlated to CT abdomen pelvis dated December 23, 2024. TECHNIQUE: AP and oblique views of the right hip. FINDINGS: No acute cortical disruption or malalignment. Degenerative changes in the symphysis pubis. Sclerosis and the inferior sacroiliac joint. No lytic or blastic lesions. XR/XR hip RT min 2V IMPRESSION: Moderate to severe degenerative changes, symphysis pubis. No acute fracture or dislocation right hip. Electronically signed by: Jose Luis Levine MD 06/20/2025 03:30 PM EDT
--- NOTE | ~2025-06-20 | XR_ITS ---
EXAMINATION: XR FOOT, RIGHT CLINICAL INFORMATION: pain COMPARISON: September 06, 2022. TECHNIQUE: AP, lateral, and oblique views of the right foot. FINDINGS: Degenerative changes in the proximal distal interphalangeal joints of the toes. Old traumatic deformity at the base of the proximal phalanx fifth toe. No acute cortical disruption or gross malalignment. Exostosis at the Achilles tendon insertion. Small plantar calcaneus spur. Old traumatic deformities in the distal tibia and fibula. Osteopenia versus osteoporosis. XR/XR foot RT min 3V IMPRESSION: No acute fracture or dislocation. Plantar calcaneal spur. Enthesopathy, Achilles tendon. Electronically signed by: Jose Luis Levine MD 06/20/2025 03:31 PM EDT
--- OUTSIDE RECORDS SUMMARY | 2025-06-20 15:08 | XMS_ITS | Clinical Summary ---
Author Organization [facility] Address [address] [place] [address] Phone Care Team Providers Care Shake Feeder Name Role Phone Flor Marie MD [...] best at this point to go through [facility] because she can get this study done faster. At [facility] Alyson is going to take over a [...] Team Description 04/05/2025 Refill [facility] [address] [place] [address] Lc Haynes DO Medication Refill from Last [...] 1:20 PM EDT Office Visit [facility] [address] [place] [address] [place] [address] Lc Haynes DO [address] [place] [address] Health Maintenance Due Date Last Done Comments [...] EDT) SODIUM 142 133 - 146 mmol/L [facility] POTASSIUM 4.1 3.3 - 5.1 mmol/L [facility] CHLORIDE 104 96 - 108 mmol/L [facility] CO2 30 21 - 35 mmol/L [facility] BUN 28(H) 6 - 19 mg/dL [facility] CREATININE 0.90 0.5 - 1.5 mg/dL [facility] GLUCOSE 128(H) 70 - 99 mg/dL [facility] ALBUMIN 4.3 3.9 - 4.8 g/dL [facility] TOTAL PROTEIN 7.2 6.5 - 8.0 g/dL [facility] CALCIUM 9.4 8.4 - 10.3 mg/dL [facility] ALKALINE PHOSPHATASE 97 39 - 117 U/L [facility] TOTAL BILIRUBIN 0.4 0.0 - 1.2 mg/dL [facility] AST 23 0 - 37 U/L [facility] ALT 14 0 - 40 U/L [facility] GLOBULIN 2.9 1 - 4.8 g/dL [facility] EGFR 65 >59 mL/min/1.7 3m2 [facility] Comment:Estimated glomerular filtration rate calculated using the CKD-EPI refit equation. ANION GAP 12 10 - 20 mmol/L [facility] Blood 02/10/2024 10:1 7 AM EDT 02/10/2024 10:33 AM EDT us Lc Haynes DO LAB BLOOD ORDERABLES Final Resul t [facility] [address] [place] [address] from Last 3 Months or Most Recently Relevant to Health Maintenance Insurance MEDICARE PART A & B [employer] MEDIC[employer] REPLACEMENT MEDICARE PART A & B [facility] MEDICARE REPLACEMENT MEDICARE PART A & B MEDICARE PART A & B MEDICARE PART A & B [employer] MEDIC[employer] REPLACEMENT MEDICARE PART A & B MEDICARE PART A & B MEDICARE REPLACEMENT MEDICARE PART A & B [facility] MEDICARE REPLACEMENT MEDICARE PART A & B [facility] MEDICARE REPLACEMENT Care Teams Shake Feeder Relationship Specialty Start Date End Date Flor Marie MD [address] [place] [address] PCP - General Internal Medicine 11/26/23 Additional Source Comments The information contained in this document represents components of the legal health record. It is not the complete legal health record.[facility]
--- OUTSIDE RECORDS SUMMARY | 2025-06-20 15:08 | XMS_ITS | Clinical Summary ---
Author Organization [facility] Facility Address [address] [place] [address] Care Team Providers Care Perforator Name Role Phone Areli Song Primary Care Provider [phone] Allergies Active Allergy Reactions Criticality Noted Date [...] each day 06/04/2021 Active Calcium Citrate-Vitamin D (Coke Calcium/Vitamin D) 200-250 MG-UNIT tablet Take 2 [...] 07/20/2023, 10/23/2017, 11/06/2015, Additional history exists Insurance [employer] ([id number]) [address] [place] [id number] [id number] Care Teams Perforator Relationship Specialty Start Date End Date Areli Song PCP - General Family Medicine 06/17/21
--- OUTSIDE RECORDS SUMMARY | 2025-06-20 15:08 | XMS_ITS ---
Author Name Estrada DUCT INSTALLER,HEALTHCARE TECHNICIAN,FN P,CONSTRUCTION SKILLS TEACHER, Miranda Address [address] [place] [id number] Phone [phone] [facility] Care Team Providers Care Utility Operator Name Role Phone Miranda Estrada Unavailable [phone] Unavailable Unavailable Unavailable Unavailable Unavailable Unavailable Unavailable Unavailable [phone] [facility] [place] [place] Unavailable [phone] [facility], [facility] Unavailable [phone] Reason for Referral Not Available Allergies, adverse [...] 2022-07-10 No Data Available OneTouch Delica Plus [id number] Miscellaneous TEST BLOOD SUGAR TWICE DAILY 2022-07-16 [...] 2023-08-20 No Data Available Deep Sea Nasal [place] 0.65 % Solution USE 1 SPRAY IN [...] follow up on : Spoke with member's CONTRACT RECRUITER who lives next door. Member has been [...] on 12/01/24 to get ROS and for CONTRACT RECRUITER to do VS, and LVM. Will follow [...] on 06/19/2023RX: metoprolol, furosemide, amlodipinemonitor for fluid [id number] na diet, 2L fluid restrictionhas chronic edema, [...] 1111F, BP, A1c or other CPTII codes [facility]2023 Encounter for other specifie d aftercare RN, CN or CP time with patient by phone; use with 1111F, BP, A1c or other CPTII codes [facility] 04[place]2023 RN, CN or CP time with patient by phone; use with 1111F, BP, A1c or other CPTII codes [facility] 06[place]/2023 Encounter for other specifie d aftercare RN, CN or CP time with patient by phone; use with 1111F, BP, A1c or other CPTII codes [facility] 06/11/2023 New patient,40-59min; chronic exacerbation, 2 stable chronic or 1 acute illness add add modifier 95 for video (do not use for phone, instead use 36536-36) [facility], ([place]) 06/19/2023 Type 2 diabetes mellitus wit h diabetic chronic kidney diseaseChronic kidney disease, stage 3bObesity, unspecifiedPain in right toe(s)Pain in left toe(s)Other persistent atrial fibrillationOther thrombophiliaHeart failure, unspecifiedSecondary hyperaldosteronismBody mass index (bmi) 33.0-33.9, adult New patient,40-59min; chronic exacerbation, 2 stable chronic or 1 acute illness add add modifier 95 for video (do not use for phone, instead use 53676-09) [facility] ([place] 06/19/20[place] New patient,40-59min; chronic exacerbation, 2 stable chronic or 1 acute illness add add modifier 95 for video (do not use for phone, instead use 53790-70) [facility]19[place] New patient,40-59min; chronic exacerbation, 2 stable chronic or 1 acute illness add add modifier 95 for video (do not use for phone, instead use 58349-94) [facility] 06[place]19[place] New patient,40-59min; chronic exacerbation, 2 stable chronic or 1 acute illness add add modifier 95 for video (do not use for phone, instead use 46068-88) [facility] 06[place]19[place] New patient,40-59min; chronic exacerbation, 2 stable chronic or 1 acute illness add add modifier 95 for video (do not use for phone, instead use 89162-21) [facility] 06[place]19[place]20[place] New patient,40-59min; chronic exacerbation, 2 stable chronic or 1 acute illness add add modifier 95 for video (do not use for phone, instead use 67139-49) [facility] 06/19[place]2023 No Data Available [facility] 08[place]2023 Pain in right toe(s)Pain in left toe(s) No Data Available [facility] 08[place]2023 No Data Available [facility] 08[place]2023 No Data Available [facility] 09/15/2023 Pain in right toe(s)Pain in left toe(s) No Data Available [facility] 09[place]2023 No Data Available [facility] [place] 11/25/2023 History of fallingType 2 diabetes mellitus with diabetic chronic kidney diseaseChronic kidney disease, stage 3bOther problems related to medical facilities and other health care No Data Available [facility] 11/25/2023 No Data Available [facility] 11/[place]/2023 No Data Available [facility] [place] 12/23/2023 Other specified counselingOt her problems related to medical facilities and other health care No Data Available [facility] [place] 12/23/2023 No Data Available [facility] 12/24/2023 Acute upper respiratory infection, unspecified No Data Available [facility] [place] 01/20/2024 Dizziness and giddinessHisto ry of falling No Data Available [facility] [place] 01/20/2024 No Data Available [facility] 03/15/2024 Repeated fallsHistory of fallingDizziness and giddiness No Data Available [facility] [place] 03/15/2024 Estab. patient 20-29min; 1 stable chronic or 2 minor; add add modifier 95 for video, modifier 93 for phone [facility] [place] 04/13/2024 Hypertensive heart disease w ith heart failureHeart failure, unspecifiedSecondary hyperaldosteronismOther problems related to medical facilities and other health care Estab. patient 20-29min; 1 stable chronic or 2 minor; add add modifier 95 for video, modifier 93 for phone [facility] [place] 04/13/2024 Estab. patient 20-29min; 1 stable chronic or 2 minor; add add modifier 95 for video, modifier 93 for phone [facility] [place] 04/13/2024 No Data Available [facility] [place] 09/30/2024 Pneumonia, unspecified organismType 2 diabetes mellitus with diabetic chronic kidney diseaseChronic kidney disease, stage 3bType 2 diabetes mellitus with diabetic neuropathy, unspecifiedHeart failure, unspecifiedSecondary hyperaldosteronismOther thrombophiliaOther persistent atrial fibrillationOther problems related to medical facilities and other health careHyp hrt & chr kdny dis w hrt fail and stg 1-unsp chr kdny No Data Available [facility] [place] 09/30/2024 No Data Available [facility] 09/30/20[place] Estab. patient 30-39min; chronic exacerbation, 2 stable chronic or 1 acute illness add add modifier 95 for video, (do not use for phone, instead use 60682-30) [facility] [place] 10/11/2024 Type 2 diabetes mellitus wit [...] (do not use for phone, instead use 66193-66) [facility] 10[place]11/20[place] Estab. patient 30-39min; chronic exacerbation, 2 stable chronic or 1 acute illness add add modifier 95 for video, (do not use for phone, instead use 40409-59) [facility] ([place] 10[place]/20[place] Estab. patient 30-39min; chronic exacerbation, 2 stable chronic or 1 acute illness add add modifier 95 for video, (do not use for phone, instead use 23769-15) [facility] [place] 10/11/20[place] Estab. patient 30-39min; chronic exacerbation, 2 stable chronic or 1 acute illness add add modifier 95 for video, (do not use for phone, instead use 46268-64) [facility] [place] 10[place]11/20[place] Estab. patient 30-39min; chronic exacerbation, 2 stable chronic or 1 acute illness add add modifier 95 for video, (do not use for phone, instead use 79147-95) [facility] [place] 10/11/20[place] Estab. patient 30-39min; chronic exacerbation, 2 stable chronic or 1 acute illness add add modifier 95 for video, (do not use for phone, instead use 41847-03) [facility]20[place] Estab. patient 30-39min; chronic exacerbation, 2 stable chronic or 1 acute illness add add modifier 95 for video, (do not use for phone, instead use 59113-77) [facility]20[place] Estab. patient 30-39min; chronic exacerbation, 2 stable chronic or 1 acute illness add add modifier 95 for video, (do not use for phone, instead use 70806-56) [facility]20[place] Estab. patient 10-29min; 1 minor problem; add add modifier 95 for video, modifier 93 for phone [facility] 12/01/2024 Other persistent atrial fibrillationOther thrombophiliaAnemia, unspecifiedOther problems related to medical facilities and other health care Estab. patient 10-29min; 1 minor problem; add add modifier 95 for video, modifier 93 for phone [facility] [place] 12/01/2024 Vital Signs Date of Collection [...] tive Time Current Smoking Status Never smoker 2025-06-09 2 Sex Female History of Procedures Procedures Service Procedure code Service date Servicing provider Phone# RN, CN or CP time with patient by phone; use with 1111F, BP, A1c or other CPTII codes 41583 2023-04-20 No Data Available No Data Avai lable Medications prescribed in hospital were reviewed and reconciled against what they were taking prior to admission during today's visit. (1111F) 1111F 2023-04-20 No Data Available No Data Availa ble RN, CN or CP time with patient by phone; use with 1111F, BP, A1c or other CPTII codes 47023 2023-06-11 No Data Available No Data Avai lable Medications prescribed in hospital were reviewed and reconciled against what they were taking prior to admission during today's visit. (1111F) 1111F 2023-06-11 No Data Available No Data Availa ble New patient,40-59min; chronic exacerbation, 2 stable chronic or 1 acute illness add add modifier 95 for video (do not use for phone, instead use 13950-99) 20255 2023-06-19 No Data Available No Data Availa [...] 95 for video, modifier 93 for phone [id number] 2024-04-13 No Data Available No Data Availa [...] (do not use for phone, instead use 95867-70) 49608 2024-10-11 No Data Available No Data Availa [...] 95 for video, modifier 93 for phone 04235 2024-12-01 No Data Available No Data Availa [...] 5am and is in the ER at [facility]. I have requested records. Not clear if [...] mucinex prn, continue antibiotic as prescribed until [id number] 7.0% on 06/19/2023FR 38 on 06/19/2023Ed re [...] pericardial effusion.RX: metoprolol, furosemide, amlodipinemonitor for fluid [id number] na diet, 2L fluid restrictionhas chronic edema, [...] follow up on : Spoke with member's CONTRACT RECRUITER who lives next door. Member has been [...] on 12/01/24 to get ROS and for CONTRACT RECRUITER to do VS, and LVM. Will follow [...]
--- OUTSIDE RECORDS SUMMARY | 2025-06-20 15:08 | XMS_ITS | Encounter Summary ---
Author Organization [employer] Address [address] [facility] [address] [place] [address] Care Team Providers Care Doubler Helper Name Role Phone Flor Marie MD Primary Care Pro vider Reason for Visit * Reason Onset Date Comments VNA Referral 06/20/2025 Home PT Referral 06/20/2025 Encounter Details Date Type Department Care Team ([facility] st Contact Info) Description 06/20/2025 Telephone [facility] MEDICINE [address] [place] [address] Vanessa Rojo, RN [address] [place] [address] VNA Referral; Home PT Referral Social History Tobacco Use Types Packs/Day Years Used Date Smoking Tobacco: Never Smokeless Tobacco: Never Alcohol Use Standard Drinks/Week Comments Not Currently 0 (1 standard drink = 0.6 oz pur e alcohol) Depression Answer Date Recorded Patient Health Questionnaire-9 Score 18 04/11/2025 Patient Health Questionnaire-9 Score 18 04/11/2025 Last PHQ-9: Questionnaire Data Not on file 0 04/11/2025 Housing Stability Answer Date Recorded What is your housing situation today? I have eric chino 04/11/[address] you li ve. Do you have problems with any of the following? None of the above 04/11/2025 Food Insecurity Answer Date Recorded Within the past 12 months, y ou worried that your food would run out before you got money to buy more: Never True 04/11/2025 Within the past 12 months,th e food you bought just didn't last and you didn't have enough money to get more: Never True 01/2025 Transportation Answer Date Recorded In the past 12 months, has l ack of transportation kept you from medical appts, meetings, work or from getting things needed for daily living? No 04/11/2025 Utilities Answer Date Recorded In the past 12 months, has t he electric, gas, oil or water company threatened to shut off services in your home? No 04/11/2025 Depression Answer Date Recorded Patient Health Questionnaire-2 Score 6 04/11/2025 Internet Access Answer Date Recorded Internet Access Q1 No 04/11/2025 Internet Access Q2 I do not want or need it 01/2025 Comments No Sex and Gender Information Value Date Recorded Sex Assigned at Female 09/08/2022 10:14 AM EDT Legal Sex Female 10:14 AM EDT Gender Identity Female 09/08/2022 10:14 AM EDT Sexual Orientation Straight 09/08/2022 10 :14 AM EDT documented as of this encounter Miscellaneous Notes * Telephone Encounter - Vanessa Rojo RN - 06/20/2025 2:07 PM EDT Orders for VNA and home PT generated and placed on PCP's desk. Pending signature. Please help pt with VNA used to have but was told needs new referral -thanks Please assist w home PT for imbalance ,frail documented in this encounter Plan of Treatment Upcoming Encounters Date Type Department Care Team (Late st Contact Info) Description 09/08/2025 2:00 PM EDT Clinical Support [facility] MEDICINE [address] [place] [id number] documented as of this encounter Visit Diagnoses Not on filedocumented in this encounter Additional Health Concerns Assessment Noted Time PHQ-9 Depression Total Score: 18 025 2:59 PM EDT documented as of this encounter Care Teams Doubler Helper Relationship Specialty Start Date End Date Flor Marie MD [address] [place] [address] PCP - General Internal Medicine 05/18/23 [facility] 01/17/25 documented as of this encounter
== END 2025-06-20 14:09 | disposition home or self-care (01) ==
LOC: HO.HHCX 14:08
PROVIDERS: PCP Student in an Organized Health Care Education/Training Program; Visit Provider Student in an Organized Health Care Education/Training Program
DX: M79.604 Pain in right leg (principal)
CPT/HCPCS: 72100; 73502; 73630

== ENCOUNTER → 2025-06-20 14:18 | Outpatient (BNV) | payer OTHER, SELFPAY | PROVIDERS: PCP Student in an Organized Health Care Education/Training Program; Visit Provider Radiology Diagnostic Radiology | DX: M79.671 Pain in right foot (principal); M25.551 Pain in right hip; M54.50 Low back pain, unspecified | CPT/HCPCS: 72100; 73502; 73630 ==

== ENCOUNTER 2025-06-26 14:42 | Outpatient (AMB) | payer OTHER, SELFPAY ==
--- NOTE | 2025-06-26 14:46 | A.OFFVIS_ITS ---
Vital Signs 06/26/25 14:47 Height 5 ft 2 in Weight 203 lb 4.259 oz BMI 37.2 BP 152/70 H Blood Pressure Location Rt brachial Position Sitting Pulse 57 Pulse Source Monitor Intake Visit Reasons: f/u Patient request r/s 06-05-25 Product Craftsman Required: Yes Product Craftsman Language: Industrial Chemist Name: voice [id number] Student Support Services Director: Student Support Services Director Present Allergies montelukast (Singulair) Allergy (Unknown, Verified 06/26/25 14:50) itching/rash Medication List - Last Reconciled 06/26/25 by LEORA Mcgrath acetaminophen 650 mg PO Q6H PRN albuterol sulfate 2.5 mg inhalation Q6H PRN albuterol sulfate 90 mcg/actuation (Ventolin HFA) 2 puffs inhalation Q4H PRN apixaban (Eliquis) 5 mg PO BID atorvastatin 80 mg PO DAILY bisacodyl (Dulcolax (bisacodyl)) 10 mg (2 x 5 mg) PO BEDTIME blood pressure test kit-large As directed blood sugar diagnostic ([employer] Verio test strips) blood-glucose meter ([employer] Verio Flex Meter) calcium citrate-vitamin D3 315 mg-6.25 mcg (250 unit) 1 tab PO BID calcium polycarbophil (Fiber-Lax) 625 mg PO DAILY cetirizine 10 mg PO DAILY PRN cholecalciferol (vitamin D3) (Vitamin D3) 50 mcg PO DAILY dextromethorphan-guaifenesin 10-100 mg/5 mL (Josselyn-Tussin DM) 10 mL PO Q4H PRN diclofenac sodium 1% 1 g topical TID PRN docusate sodium (Stool Softener) 100 mg PO DAILY duloxetine 30 mg PO DAILY empagliflozin (Jardiance) 10 mg PO DAILY famotidine 20 mg PO BID ferrous gluconate 324 mg PO DAILY fluticasone propion-salmeterol 250-50 mcg/dose (Advair Diskus) 1 puff inhalation BID furosemide 40 mg PO DAILY lancets ([employer] Delica Plus Lancet) metformin 850 mg PO DAILY metoprolol succinate ER (Toprol XL) 50 mg PO DAILY mirabegron ER (Myrbetriq) 50 mg PO DAILY psyllium husk (Reguloid (psyllium husk)) 1 tsp PO BID pyridoxine (vitamin B6) 100 mg PO DAILY sacubitril-valsartan 24-26 mg (Entresto) 1 tab See Protocol PO BID simethicone 80 mg PO QID PRN trazodone 100 mg PO BEDTIME HPI HPI f/u Patient request r/s 06-05-25: Details: Roseanna is an 80-year-old female with past medical history of obesity, hypertension, hyperlipidemia, chronic atrial fibrillation, cardiomyopathy, mild mitral regurgitation, heart failure with reduced EF, CAD, anterior infarct with LAD stent 04/2023 who presents for follow-up. Today she reports that she has been getting some discomfort that starts on either side of her jaw and goes down to her chest. This can persist for hours and gradually go away. It typically occurs when she is at rest. She admits to being mostly sedentary. She is concerned that this is her heart. No shortness of breath, PND, orthopnea. She has mild lower leg edema. No heart palpitations, lightheadedness, presyncope, syncope. Taking all meds as directed. No bleeding issues reported. Daughter present. Certified laborer/grade check used. [facility] Medical History (Updated 06/26/25 @ 16:37 by Rut Quiroz, RN [employer]) Persistent atrial fibrillation Elevated liver enzymes NSTEMI (non-ST elevated myocardial infarction) Anxiety Asymmetrical thyroid CHF (congestive heart failure) COVID-19 Renal cyst, acquired, left Obstruction, uropathy Thrombosed external hemorrhoid COPD (chronic obstructive pulmonary disease) Atrial fibrillation Gout Asthma Alcohol abuse Nephrolithiasis Knee arthropathy Osteoarthritis Diabetes Arthritis Hypertension Surgical History Hx of bilateral cataract extraction Hx of hysterectomy Hx of lithotripsy History of total right knee replacement History of esophagogastroduodenoscopy (EGD) Hx of cystoscopy Hx of colonoscopy History of total knee arthroplasty Social History Household Members: None Household Members Other:: DAUGHTER Housing: Apartment Housing Other:: low income housing Do you presently have visiting nurse or other home services: Yes (has a PRESSURE WASHER but reports is not consistent with coverage) Unable to assess alcohol history related to: Unknown Alcohol intake: unknown Patient Tobacco Use Status: Never used Tobacco e-Cigarette/Vaping Use: Never Used Second Hand Smoke Exposure: No Advance Directives Date on File: 09/07/22 service: No Current occupational status: disabled Review of Systems Const All systems reviewed & are unremarkable except as noted in HPI and below ENT Denies dizziness Card Reports chest pain, Reports chest pain at rest, Denies chest pain with activity, Denies rapid heart rate, Denies pedal edema, Denies edema, Reports leg edema, Denies lightheadedness, Reports radiating jaw, neck or arm pain, Denies palpita tions, Denies dyspnea, Denies dyspnea on exertion and Denies orthopnea Resp Denies cough, Denies dyspnea and Denies dyspnea on exertion GI Denies hematochezia and Denies change in stool character Musc Denies abnormal gait, Denies limited range of motion, Denies muscle cramps, Denies muscle weakness, Denies numbness, Denies radiating pain into limb, Denies stiffness and Denies tingling Neuro Denies abnormal gait, Denies dizziness, Denies numbness and Denies tingling Endo Denies palpitations Physical Exam Vital Signs: Last Vital Signs Pulse 57 06/26/25 14:47 BP 152/70 H 06/26/25 14:47 BMI result Body Mass Index 37.2 Const General: cooperative, healthy appearing, comfortable and no acute distress Orientation/consciousness: patient oriented x3 Neck Neck: Yes normal visual inspection and Yes no JVD Resp Effort & Inspection: normal respiratory effort Auscultation: clear to auscultation bilaterally, no rales, no rhonchi and no wheezes Cardio Rate: regular rate Rhythm: abnormal rhythm Heart sounds: S1 normal heart sound present, S2 normal heart sound present, no gallops, no murmurs and no rubs Skin General skin exam: no rashes or lesions noted Neuro General: patient oriented x3 Extrem Other: mild pitting edema each lower leg - R > L , no calf pains to palpation Psych Appearance: grossly normal Mental Status: mental status grossly normal Speech and movement: Normal speech and movement present Office Procedures EKG Details: Today, read by me, atrial fibrillation with slow ventricular response, rate 57, nonspecific ST/ T-wave abnormalities, QTC 445 millisecond [id number], Complete Assessment & Plan Assessment & Plan (1) Coronary arteriosclerosis: Code(s): I25.10 - Atherosclerotic heart disease of douglas coronary artery without angina pectoris Category: Medical Plan: History of CAD with prior anterior infarct, cardiac catheterization with LAD stenosis, RENAE placed 04/10/2023. Last echocardiogram 04/19/2025 showed EF 40-45%, severe biatrial enlargement, mild MR she is reporting atypical type chest discomfort. EKG today atrial fibrillation with slow ventricular response, rate 57. Will order pharmacological nuclear stress test to evaluate for ischemia. Continue high-dose atorvastatin with ideal LDL goal less than 70. She is not on aspirin as she is on Eliquis. Signs and symptoms of angina reviewed with her. Emergency care if needed. Cardiology follow-up 2-3 months, sooner if needed. - she will be called with stress test results. (2) Chest pain: Code(s): R07.9 - Chest pain, unspecified Category: Medical Qualifiers: Chest pain type: unspecified Qualified Code(s): R07.9 - Chest pain, unspecified Plan: Chest discomfort as described above occurring at rest. EKG is nonischemic. (3) S/P cardiac cath: Comment: 04/10/2023, mid LAD severe stenosis, RENAE placed, no obvious left circumflex noted, RCA dominant vessel, PLV 1 has 50% stenosis, ramus moderate disease Code(s): Z98.890 - Other specified postprocedural states Category: Surgical (4) Chronic heart failure: Code(s): I50.9 - Heart failure, unspecified Category: Medical Plan: History of heart failure with reduced EF. She is not appear fluid overloaded on exam today. Continue Jardiance, metoprolol and patient states she is on losartan. our notes indicate she is on Entresto. Will need to check with her pharmacy. (5) Persistent atrial fibrillation: Code(s): I48.19 - Other persistent atrial fibrillation Category: Medical Plan: History of persistent atrial fibrillation. She is on metoprolol XL 50 mg daily for heart rate control. EKG done today showing AFib with slow ventricular response, rate 57. Blood pressure mildly elevated. No med changes made at this time. If heart rate remains low then metoprolol dose can be reduced. (6) Mitral regurgitation: Code(s): I34.0 - Nonrheumatic mitral (valve) insufficiency Category: Medical Qualifiers: Cardiac valve disease etiology: nonrheumatic Qualified Code(s): I34.0 - Nonrheumatic mitral (valve) insufficiency Plan: Prior echo had shown moderate to severe mitral regurgitation. Most recent echo showing mild mitral regurgitation. (7) Hyperlipemia: Code(s): E78.5 - Hyperlipidemia, unspecified Category: Medical Plan: [place]ton LDL goal less than 70. Labs done 06/14/2025 showing LDL 93. will check with pharmacy - if not taking atorvastatin Will add Zetia 10 mg daily, then Plan recheck of fasting lipids in 2 months. Plan I discussed with the patient the potential causes of her chest pain, including cardiac and non-cardiac origins. We reviewed her current medications and she is unclear on exactly what she is taking. I explained the need for a stress test to assess her heart stent and determine the cause of her symptoms. We also talked about the importance of managing her leg swelling with compression socks and low salt diet. Orders: Orders NM cardiolite stress test Today I25.10 - Atherosclerotic heart disease of douglas coronary artery without angina pectoris, R07.9 - Chest pain, unspecified, Z98.890 - Other specified postprocedural states CA lexiscan stress w lisa Today I25.10 - Atherosclerotic heart disease of douglas coronary artery without angina pectoris, R07.9 - Chest pain, unspecified, Z98.890 - Other specified postprocedural states Patient Instructions: - Attend the scheduled stress test to evaluate heart health. - Continue current medications, including Eliquis. - You may need to start new medication Zetia for cholesterol control - Use compression socks for leg swelling, available for purchase online. Patient was informed and verbally consented to the use of an ambient scribe for clinic note documentation during this visit. Visit time spent on chart review, interview, assessment, orders, documentation. Coding Level of Care Code Est Pt Level 4 (46357) Complex EM visit Add On G2211 Diagnoses Coronary arteriosclerosis I25.10 Chest pain, unspecified type R07.9 Chest pain type: unspecified S/P cardiac cath Z98.890 Chronic heart failure I50.9 Persistent atrial fibrillation I48.19 Nonrheumatic mitral valve regurgitation I34.0 Cardiac valve disease etiology: nonrheumatic Hyperlipemia E78.5 CPT Codes EKG - CPT: [id number], Complete ([id number]) Time Spent (min) 36
[2025-06-26 14:47] VITALS: BP 152/70; PULSE 57; BMI 37.2
--- OUTSIDE RECORDS SUMMARY | 2025-06-26 15:25 | XMS_ITS | Clinical Summary ---
Author Organization [facility] Address [address] [place] [address] Phone Care Team Providers Care Construction Superintendent Name Role Phone Flor Marie MD Primary [...] best at this point to go through [facility] because she can get this study done faster. At [facility] Alyson is going to take [...] Team Description 04/05/2025 Refill [facility] [address] [place] [address] Lc Haynes DO Medication Refill from Last [...] 1:20 PM EDT Office Visit [facility] [address] [place] [address] [place] [address] Lc Haynes DO [address] [place] [phone] [email or web address] Health Maintenance Due Date Last Done Comments [...] EDT) SODIUM 142 133 - 146 mmol/L [facility] POTASSIUM 4.1 3.3 - 5.1 mmol/L [facility] CHLORIDE 104 96 - 108 mmol/L [facility] CO2 30 21 - 35 mmol/L [facility] BUN 28(H) 6 - 19 mg/dL [facility] CREATININE 0.90 0.5 - 1.5 mg/dL [facility] GLUCOSE 128(H) 70 - 99 mg/dL [facility] ALBUMIN 4.3 3.9 - 4.8 g/dL [facility] TOTAL PROTEIN 7.2 6.5 - 8.0 g/dL [facility] CALCIUM 9.4 8.4 - 10.3 mg/dL [facility] ALKALINE PHOSPHATASE 97 39 - 117 U/L [facility] TOTAL BILIRUBIN 0.4 0.0 - 1.2 mg/dL [facility] AST 23 0 - 37 U/L [facility] ALT 14 0 - 40 U/L [facility] GLOBULIN 2.9 1 - 4.8 g/dL [facility] EGFR 65 >59 mL/min/1.7 3m2 [facility] Comment:Estimated glomerular filtration rate calculated using the CKD-EPI refit equation. ANION GAP 12 10 - 20 mmol/L [facility] Blood 02/10/2024 10:1 7 AM EDT 02/10/2024 10:33 AM EDT us Lc Haynes DO LAB BLOOD ORDERABLES Final Resul t [facility] [address] [place] [address] from Last 3 Months or Most Recently Relevant to Health Maintenance Insurance MEDICARE PART A & B [employer] MEDICARE REPLACEMENT MEDICARE PART A & B [facility] MEDICARE REPLACEMENT MEDICARE PART A & B MEDICARE PART A & B MEDICARE PART A & B [employer] MEDIC[employer] REPLACEMENT MEDICARE PART A & B MEDICARE PART A & B MEDICARE REPLACEMENT MEDICARE PART A & B [facility] MEDICARE REPLACEMENT MEDICARE PART A & B [facility] MEDICARE REPLACEMENT Care Teams Construction Superintendent Relationship Specialty Start Date End Date Flor Marie MD [address] [place] [address] PCP - General Internal Medicine 11/26/23 Additional Source Comments The information contained in this document represents components of the legal health record. It is not the complete legal health record.[facility]
--- OUTSIDE RECORDS SUMMARY | 2025-06-26 15:25 | XMS_ITS | Clinical Summary ---
Author Organization [facility] Address [address] [place] [address] Care Team Providers Care Skiver Machine Name Role Phone Areli Song Primary Care Provider [phone] Allergies Active Allergy Reactions Criticality Noted Date [...] each day 06/04/2021 Active Calcium Citrate-Vitamin D ([place] Calcium/Vitamin D) 200-250 MG-UNIT tablet Take 2 [...] 07/20/2023, 10/23/2017, 11/06/2015, Additional history exists Insurance [employer] ([id number]) [address] [place] [phone] [id number] Care Teams Skiver Machine Relationship Specialty Start Date End Date Areli Song PCP - General Family Medicine 06/17/21
--- OUTSIDE RECORDS SUMMARY | 2025-06-26 15:25 | XMS_ITS | Encounter Summary ---
Author Organization [employer] Address [address] [facility] [address] [place] [address] Care Team Providers Care Vice Admiral Name Role Phone Flor Marie MD Primary Care Pro vider Reason for Visit * Reason Onset Date Comments VNA Referral 06/20/2025 Home PT Referral 06/20/2025 Encounter Details Date Type Department Care Team ([facility] st Contact Info) Description 06/20/2025 Telephone [facility] [address] [place] [address] Vanessa Rojo, RN [address] [place] [address] VNA Referral; Home PT Referral Social History [...] encounter Miscellaneous Notes * Telephone Encounter - Nona Mireles RN - 06/23/2025 12:04 PM EDT Pt previously with S in 2022. Handed signed VNA packet for nursing and physical therapy to S liaison who will notify if unable to take the pt. * Telephone Encounter - Vanessa Rojo RN [...] Description 09/08/2025 2:00 PM EDT Clinical Support [facility] [address] [place] [address] documented as of this encounter Visit Diagnoses Not on filedocumented in this encounter Additional Health Concerns Assessment Noted Time PHQ-9 Depression Total Score: 18 025 2:59 PM EDT documented as of this encounter Care Teams Vice Admiral Relationship Specialty Start Date End Date Flor Marie MD [address] [place] [address] PCP - General Internal Medicine 05/18/23 Pedro 01/17/25 documented as of this encounter
--- OUTSIDE RECORDS SUMMARY | 2025-06-26 15:25 | XMS_ITS ---
Author Name Estrada WINDOWS APPLICATION PACKAGER,GEOSPATIAL IMAGE ANALYST,FN P,SADDLE STITCHING MACHINE OPERATOR, Miranda Address [address] [place] [address] Phone [phone] [facility] Care Team Providers Care Building Analyst/Supervisor Name Role Phone Miranda Estrada Unavailable [phone] Unavailable Unavailable Unavailable Unavailable Unavailable Unavailable Unavailable Unavailable [phone] [facility], [place] Unavailable [facility], [facility] Unavailable Reason for [...] 2022-07-10 No Data Available OneTouch Delica Plus [id number] Miscellaneous TEST BLOOD SUGAR TWICE DAILY 2022-07-16 [...] 2023-08-20 No Data Available Deep Sea Nasal [place] 0.65 % Solution USE 1 SPRAY IN [...] follow up on : Spoke with member's AIRCRAFT INSTRUMENT ENGINEER who lives next door. Member has [...] on 12/01/24 to get ROS and for AIRCRAFT INSTRUMENT ENGINEER to do VS, and LVM. Will [...] on 06/19/2023RX: metoprolol, furosemide, amlodipinemonitor for fluid [id number] na diet, 2L fluid restrictionhas chronic edema, [...] 1111F, BP, A1c or other CPTII codes [facility] Encounter for other specifie d aftercare RN, CN or CP time with patient by phone; use with 1111F, BP, A1c or other CPTII codes [facility] 04[place]2023 RN, CN or CP time with patient by phone; use with 1111F, BP, A1c or other CPTII codes [facility] 06[place]/2023 Encounter for other specifie d aftercare RN, CN or CP time with patient by phone; use with 1111F, BP, A1c or other CPTII codes [facility] 06[place]11/2023 New patient,40-59min; chronic exacerbation, 2 stable chronic or 1 acute illness add add modifier 95 for video (do not use for phone, instead use [id number]) [facility] 06[place]19[place]2023 Type 2 diabetes mellitus wit h diabetic chronic kidney diseaseChronic kidney disease, stage 3bObesity, unspecifiedPain in right toe(s)Pain in left toe(s)Other persistent atrial fibrillationOther thrombophiliaHeart failure, unspecifiedSecondary hyperaldosteronismBody mass index (bmi) 33.0-33.9, adult New patient,40-59min; chronic exacerbation, 2 stable chronic or 1 acute illness add add modifier 95 for video (do not use for phone, instead use 57071-81) [facility]19[place] New patient,40-59min; chronic exacerbation, 2 stable chronic or 1 acute illness add add modifier 95 for video (do not use for phone, instead use 05898-17) [facility] New patient,40-59min; chronic exacerbation, 2 stable chronic or 1 acute illness add add modifier 95 for video (do not use for phone, instead use 74594-54) [facility] New patient,40-59min; chronic exacerbation, 2 stable chronic or 1 acute illness add add modifier 95 for video (do not use for phone, instead use 11895-04) [facility] New patient,40-59min; chronic exacerbation, 2 stable chronic or 1 acute illness add add modifier 95 for video (do not use for phone, instead use 50420-04) [facility]19[place] New patient,40-59min; chronic exacerbation, 2 stable chronic or 1 acute illness add add modifier 95 for video (do not use for phone, instead use 83864-87) [facility] 06[place]2023 No Data Available [facility]2023 Pain in right toe(s)Pain in left toe(s) No Data Available [facility]2023 No Data Available [facility]2023 No Data Available [facility] 09/15[place]2023 Pain in right toe(s)Pain in left toe(s) No Data Available [facility]20[place] No Data Available [facility]2023 History of fallingType 2 diabetes mellitus with diabetic chronic kidney diseaseChronic kidney disease, stage 3bOther problems related to medical facilities and other health care No Data Available [facility] 11/25/2023 No Data Available [facility] 11/25/2023 No Data Available [facility] 12/23/2023 Other specified counselingOt her problems related to medical facilities and other health care No Data Available [facility] 12/23/2023 No Data Available [facility] 12/24/2023 Acute upper respiratory infection, unspecified No Data Available [facility] 01/20/2024 Dizziness and giddinessHisto ry of falling No Data Available [facility] 01/20/2024 No Data Available [facility] [place] 03/15/2024 Repeated fallsHistory of fallingDizziness and giddiness No Data Available [facility] 03/15/2024 Estab. patient 20-29min; 1 stable chronic or 2 minor; add add modifier 95 for video, modifier 93 for phone [facility] 04[place]13/2024 Hypertensive heart disease w ith heart failureHeart failure, unspecifiedSecondary hyperaldosteronismOther problems related to medical facilities and other health care Estab. patient 20-29min; 1 stable chronic or 2 minor; add add modifier 95 for video, modifier 93 for phone [facility] 04/13/2024 Estab. patient 20-29min; 1 stable chronic or 2 minor; add add modifier 95 for video, modifier 93 for phone [facility] [place] 04/13/2024 No Data Available [facility] 09/30/2024 Pneumonia, unspecified organismType 2 diabetes mellitus with diabetic chronic kidney diseaseChronic kidney disease, stage 3bType 2 diabetes mellitus with diabetic neuropathy, unspecifiedHeart failure, unspecifiedSecondary hyperaldosteronismOther thrombophiliaOther persistent atrial fibrillationOther problems related to medical facilities and other health careHyp hrt & chr kdny dis w hrt fail and stg 1-unsp chr kdny No Data Available [facility] 09/30/2024 No Data Available [facility] 09/30/2024 Estab. patient 30-39min; chronic exacerbation, 2 stable chronic or 1 acute illness add add modifier 95 for video, (do not use for phone, instead use 60227-84) [facility] 10/11/2024 Type 2 diabetes mellitus wit h [...] (do not use for phone, instead use 28092-92) [facility] 10[place]/20[place] Estab. patient 30-39min; chronic exacerbation, 2 stable chronic or 1 acute illness add add modifier 95 for video, (do not use for phone, instead use 66627-75) [facility] [place] 10[place]24 Estab. patient 30-39min; chronic exacerbation, 2 stable chronic or 1 acute illness add add modifier 95 for video, (do not use for phone, instead use 44414-07) [facility] [place] 10[place]/20[place] Estab. patient 30-39min; chronic exacerbation, 2 stable chronic or 1 acute illness add add modifier 95 for video, (do not use for phone, instead use 37633-67) [facility] 10[place]/20[place] Estab. patient 30-39min; chronic exacerbation, 2 stable chronic or 1 acute illness add add modifier 95 for video, (do not use for phone, instead use 18765-19) [facility] 10[place]11/20[place] Estab. patient 30-39min; chronic exacerbation, 2 stable chronic or 1 acute illness add add modifier 95 for video, (do not use for phone, instead use 89339-92) [facility] Estab. patient 30-39min; chronic exacerbation, 2 stable chronic or 1 acute illness add add modifier 95 for video, (do not use for phone, instead use 61083-95) [facility] Estab. patient 30-39min; chronic exacerbation, 2 stable chronic or 1 acute illness add add modifier 95 for video, (do not use for phone, instead use 74747-70) [facility] Estab. patient 10-29min; 1 minor problem; add add modifier 95 for video, modifier 93 for phone [facility] 12[place]01/2024 Other persistent atrial fibrillationOther thrombophiliaAnemia, unspecifiedOther problems related to medical facilities and other health care Estab. patient 10-29min; 1 minor problem; add add modifier 95 for video, modifier 93 for phone [facility] 12/01/2024 Vital Signs Date of Collection Vitals [...] Time Current Smoking Status Never smoker 2025-06-09 7 Sex Female History of Procedures Procedures Service Procedure code Service date Servicing provider Phone# RN, CN or CP time with patient by phone; use with 1111F, BP, A1c or other CPTII codes 13395 2023-04-20 No Data Available No Data Avai lable Medications prescribed in hospital were reviewed and reconciled against what they were taking prior to admission during today's visit. (1111F) 1111F 2023-04-20 No Data Available No Data Availa ble RN, CN or CP time with patient by phone; use with 1111F, BP, A1c or other CPTII codes 72921 2023-06-11 No Data Available No Data Avai lable Medications prescribed in hospital were reviewed and reconciled against what they were taking prior to admission during today's visit. (1111F) 1111F 2023-06-11 No Data Available No Data Availa ble New patient,40-59min; chronic exacerbation, 2 stable chronic or 1 acute illness add add modifier 95 for video (do not use for phone, instead use 84880-20) 68027 2023-06-19 No Data Available No Data Availa [...] 95 for video, modifier 93 for phone [id number] 2024-04-13 No Data Available No Data Availa [...] (do not use for phone, instead use 07761-21) 69637 2024-10-11 No Data Available No Data Availa [...] 95 for video, modifier 93 for phone 55685 2024-12-01 No Data Available No Data Availa [...] 5am and is in the ER at [facility]. I have requested records. Not clear [...] mucinex prn, continue antibiotic as prescribed until [id number] 7.0% on 06/19/2023FR 38 on 06/19/2023Ed re [...] pericardial effusion.RX: metoprolol, furosemide, amlodipinemonitor for fluid [id number] na diet, 2L fluid restrictionhas chronic edema, [...] follow up on : Spoke with member's AIRCRAFT INSTRUMENT ENGINEER who lives next door. Member has [...] on 12/01/24 to get ROS and for AIRCRAFT INSTRUMENT ENGINEER to do VS, and LVM. Will [...]
== END 2025-06-26 16:36 | disposition home or self-care (01) ==
LOC: HO.HCS 14:43
PROVIDERS: Visit Provider Nurse Practitioner Family
DX: I25.10 Atherosclerotic heart disease of native coronary artery without angina pectoris (principal); R07.9 Chest pain, unspecified; Z98.890 Other specified postprocedural states; I50.9 Heart failure, unspecified; I48.19 Other persistent atrial fibrillation; I34.0 Nonrheumatic mitral (valve) insufficiency; E78.5 Hyperlipidemia, unspecified
CPT/HCPCS: 93010; 99214; G2211

== ENCOUNTER → 2025-06-26 14:42 | Outpatient (BNVA) | payer OTHER, SELFPAY | PROVIDERS: Visit Provider Nurse Practitioner Family | DX: I25.10 Atherosclerotic heart disease of native coronary artery without angina pectoris (principal); E78.5 Hyperlipidemia, unspecified; I34.0 Nonrheumatic mitral (valve) insufficiency; I48.19 Other persistent atrial fibrillation; I50.9 Heart failure, unspecified; R07.9 Chest pain, unspecified; Z98.890 Other specified postprocedural states; Z79.899 Other long term (current) drug therapy | CPT/HCPCS: 93005; 99212 ==

== ENCOUNTER 2025-07-20 11:38 | Outpatient (AMB) | payer OTHER, SELFPAY ==
--- NOTE | 2025-07-20 11:39 | MHC.OFFVIS ---
Vital Signs 07/20/25 11:40 Height 5 ft 2 in Weight 202 lb BMI 36.9 BP 140/82 H Blood Pressure Location Lt brachial Position Sitting Pulse 76 Pulse Source Pulse Oximeter Pulse Oximetry (%) 97 Oxygen Delivery Method Room Air Intake Visit Reasons: [facility] mgmt. Discuss meds. DEBBIE 10/2024 Intake Note: ESTABLISHED PATIENT for mgmt of [facility]. Pt had CO since last visit (12/2024) CC; C.O. constipation + concern for rectal prolapse. Pt denies any melena or hematochezia. Pt also reports some dizziness since her CO in December. Air Quality Technician Required: Yes Air Quality Technician Services: Air Quality Technician Offered & Declined Accompanied by: Daughter Allergies montelukast (Singulair) Allergy (Unknown, Verified 06/26/25 14:50) itching/rash HPI HPI [facility] mgmt. Discuss meds. DEBBIE 10/2024: Details: LAST VISIT Chronic idiopathic constipation Postprandial abdominal bloating GERD (gastroesophageal reflux disease) Plan Patient will follow-up in our office on as needed basis. She will call if she will have any GI concerning symptoms. Both patient and her daughter are agreeable to plan of care and verbalizes understanding of instructions. They were given the opportunity to ask questions and all questions answered. TODAY'S VISIT Patient is here today for requested visit. Patient is accompanied by her daughter. Patient reports that she has been constipated more lately. She is taking stool softener and Dulcolax and continues to have no BM for 3-4 days. Patient has to strain in order to have a bowel movement. Patient denies melena, hematochezia, unintentional weight loss or ribbon like stools. Patient denies any dyspepsia dysphagia or odynophagia. Patient denies any other GI concerning symptoms. Patient was admitted in December for shortness of breath, diagnosed with pneumonia and NSTEMI. Patient was started on Plavix in addition to Eliquis. On Eliquis for persistent AFib. ECHO at that time was done and yet was only 20%. Patient was following up with Dr. Cadena in the office, last visit in April. Repeated echo showed 40- 45% of EF. Overall patient reports she is feeling better, however patient reports to be feeling dizzy at times. No syncope or presyncope. [facility] Medical History (Updated 06/26/25 @ 16:37 by Rut Quiroz, CATERPILLAR TRACTOR OPERATOR-C) Persistent atrial fibrillation Elevated liver enzymes NSTEMI (non-ST elevated myocardial infarction) Anxiety Asymmetrical thyroid CHF (congestive heart failure) COVID-19 Renal cyst, acquired, left Obstruction, uropathy Thrombosed external hemorrhoid COPD (chronic obstructive pulmonary disease) Atrial fibrillation Gout Asthma Alcohol abuse Nephrolithiasis Knee arthropathy Osteoarthritis Diabetes Arthritis Hypertension Surgical History Hx of bilateral cataract extraction Hx of hysterectomy Hx of lithotripsy History of total right knee replacement History of esophagogastroduodenoscopy (EGD) Hx of cystoscopy Hx of colonoscopy History of total knee arthroplasty Social History Household Members: None Household Members Other:: DAUGHTER Housing: Apartment Housing Other:: low income housing Do you presently have visiting nurse or other home services: Yes (has a CLINICAL EDUCATOR but reports is not consistent with coverage) Unable to assess alcohol history related to: Unknown Alcohol intake: unknown Patient Tobacco Use Status: Never used Tobacco e-Cigarette/Vaping Use: Never Used Second Hand Smoke Exposure: No Advance Directives Date on File: 09/07/22 service: No Current occupational status: disabled Review of Systems Const Denies weight gain and Denies weight loss ENT Reports no additional complaints, Denies dysphagia and Denies odynophagia Card Reports no additional complaints Resp Reports no additional complaints GI Denies abdominal pain, Denies belching, Denies melena, Denies bloating, Denies change in bowel habits, Denies dysphagia, Denies excessive flatus, Denies dyspepsia, Denies heartburn, Denies diarrhea, Denies loose stools, Denies nausea, Denies odynophagia and Denies vomiting Musc Reports no additional complaints Neuro Reports no additional complaints Psych Reports no additional complaints Endo Reports no additional complaints Physical Exam Vital Signs: Last Vital Signs Pulse 76 07/20/25 11:40 BP 140/82 H 07/20/25 11:40 Pulse Ox 97 07/20/25 11:40 Oxygen Delivery Method Room Air 07/20/25 11:40 BMI result Body Mass Index 36.9 Const Other: Patient ambulating with cane General: healthy appearing and no acute distress Nutritional Appearance: obese Orientation/consciousness: patient oriented x3 Resp Effort & Inspection: normal respiratory effort, able to speak in complete sentences, no tracheal deviation and symmetric chest movement Auscultation: clear to auscultation bilaterally Cardio Rate: regular rate GI Inspection: Yes normal to inspection, No distended and Yes obesity Palpation (GI): Soft to palpation, not firm, nontender and No hepatosplenomegaly present Auscultation: normal bowel sounds General: Yes no CVA tenderness Back/Spine/Pelvis Back: no CVA tenderness Skin General skin exam: elasticity normal, turgor normal and dry skin Neuro General: patient oriented x3 Extrem Right lower extremity: hip/thigh (R hip tenderness) Psych Appearance: grossly normal Mental Status: mental status grossly normal Assessment & Plan Assessment & Plan (1) Chronic idiopathic constipation: Code(s): K59.04 - Chronic idiopathic constipation (2) Postprandial abdominal bloating: Code(s): R14.0 - Abdominal distension (gaseous) (3) Gastroesophageal reflux disease: Code(s): K21.9 - Gastro-esophageal reflux disease without esophagitis Qualifiers: Esophagitis presence: esophagitis presence not specified Qualified Code(s): K21.9 - Gastro-esophageal reflux disease without esophagitis Plan Patient will start taking Linzess. Will wait for PA. If unable to get a PA patient will be started on Motegrity. In the meantime patient will continue taking Dulcolax. Will order her milk of magnesia. Patient will take it as needed if no bowel movement in 1-2 days. Increase fluid intake and activity to promote better bowel motility. Patient is unable to ambulate much as she is dizzy. Patient was instructed to go to ED if her dizziness will continue. Patient will follow-up in the office in 2 months to re-evaluate. She will call us if she will have any GI concerning symptoms. Patient is agreeable to current plan of care and verbalizes understanding of instructions. She was given the opportunity to ask questions and all questions answered. Thank you for allowing me to participate in his care Medications: New magnesium hydroxide (Milk of Magnesia) 10 mL PO DAILY PRN 355 mL 0RF constipation linaclotide (Linzess) 145 mcg PO DAILY 30 caps 4RF K59.04 - Chronic idiopathic constipation Coding Level of Care Code Est Pt Level 3 (31837) Diagnoses Chronic idiopathic constipation K59.04 Postprandial abdominal bloating R14.0 Gastroesophageal reflux disease, unspecified whether esophagitis present K21.9 Esophagitis presence: esophagitis presence not specified Time Spent (min) 30 Comment 20 minutes spent with patient and additional 10 minutes spent reviewing her records
[2025-07-20 11:40] VITALS: BP 140/82; PULSE 76; O2SAT 97; BMI 36.9
--- OUTSIDE RECORDS SUMMARY | 2025-07-20 15:59 | XMS_ITS | Clinical Summary ---
Author Organization [facility] Address [address] [place] [phone] Phone Care Team Providers Care Framing Mill Operator Helper Name Role Phone Flor Marie MD [...] best at this point to go through [facility] because she can get this study done faster. At [facility] Alyson is going to take over [...] for evaluation of secondary causes of osteoporosis. Family History Medical History Relation Comments No [...] Care Team (Late st Contact Info) Description 11/20/2025 11:10 AM EST Office Visit [facility] [address] [place] [phone] Lc Haynes DO [address] [place] [address] Health Maintenance Due Date Last Done Comments DEPRESSION SCREENING 1957 RSV VACCINE (1 - 1-dose 75+ series) 02/03/2019 CREATININE LEVEL 02/09/2025 02/10/2024, 02/09/2024 INFLUENZA VACCINE (#1) 2025 , 01/10/2020, 10/23/2019, Additional history exists COVID-19 VACCINE ( - 2024- season) 2025 03/25/2021 Adult Td,Tdap Booster 07/20/2033 07/20/2023 , 02/24/2013, 03/09/1995 PNEUMOCOCCAL VACCINES (50+ years) Completed 10/23/2017, 11/06/2015, 11/28/2009 ZOSTER VACCINES Completed 06/08/2020, 05/2020, 07/20/2015 OSTEOPOROSIS SCREENING INITIAL (ONE-TIME) Completed 07/13/2024, 03/16/2024 HEPATITIS A VACCINES [...] Region Laterality Modality Bone Density Bone Density us Lc Haynes DO IMG BD BONE DENSITY DEXA Final R esult * (ABNORMAL) Comprehensive metabolic panel (02/10/2024 10:17 AM EDT) SODIUM 142 133 - 146 mmol/L [facility] POTASSIUM 4.1 3.3 - 5.1 mmol/L [facility] CHLORIDE 104 96 - 108 mmol/L [facility] CO2 30 21 - 35 mmol/L [facility] BUN 28(H) 6 - 19 mg/dL [facility] CREATININE 0.90 0.5 - 1.5 mg/dL [facility] GLUCOSE 128(H) 70 - 99 mg/dL [facility] ALBUMIN 4.3 3.9 - 4.8 g/dL [facility] TOTAL PROTEIN 7.2 6.5 - 8.0 g/dL [facility] CALCIUM 9.4 8.4 - 10.3 mg/dL [facility] ALKALINE PHOSPHATASE 97 39 - 117 U/L [facility] TOTAL BILIRUBIN 0.4 0.0 - 1.2 mg/dL [facility] AST 23 0 - 37 U/L [facility] ALT 14 0 - 40 U/L [facility] GLOBULIN 2.9 1 - 4.8 g/dL [facility] EGFR 65 >59 mL/min/1.7 3m2 [facility] Comment:Estimated glomerular filtration rate calculated using the CKD-EPI refit equation. ANION GAP 12 10 - 20 mmol/L [facility] Blood 02/10/2024 10:1 7 AM EDT 02/10/2024 10:33 AM EDT us Lc Haynes DO LAB BLOOD ORDERABLES Final Resul t [facility] [address] [place], [place] [id number] from Last 3 Months or Most Recently Relevant to Health Maintenance Insurance MEDICARE PART A & B [facility] DUAL MEDICARE REPLACEMENT Member Subscriber Plan / Payer (Ef fective 2022-Present) Name:Roseanna Hurt Relation to Subscriber:Self Name:Roseanna Hurt Payer ID:[id number] (NAIC) Group ID:Not on file Type:Medicare Address: [place] [id number] MEDICARE PART A & B DUAL MEDICARE REPLACEMENT MEDICARE PART A & B MEDICARE PART A & B MEDICARE PART A & B DUAL MEDICARE REPLACEMENT MEDICARE PART A & B MEDICARE PART A & B DUAL MEDICARE REPLACEMENT MEDICARE PART A & B [facility] DUAL MEDICARE REPLACEMENT MEDICARE PART A & B DUAL MEDICARE REPLACEMENT Care Teams Framing Mill Operator Helper Relationship Specialty Start Date End Date Flor Marie MD [address] [place] [phone] PCP - General Internal Medicine 11/26/23 Additional Source Comments The information contained in this document represents components of the legal health record. It is not the complete legal health record.[facility]
--- OUTSIDE RECORDS SUMMARY | 2025-07-20 15:59 | XMS_ITS ---
Author Name Estrada MOTORBOAT MECHANIC INBOARD,WEED SPRAYER,FN P,[employer], Miranda Address [address] [place] [address] Phone [phone] [facility] Care Team Providers Care Pressing Machine Operator Name Role Phone Miranda Estrada Unavailable [phone] Unavailable Unavailable Unavailable Unavailable Unavailable Unavailable Unavailable Unavailable [phone] [facility], [place] Unavailable [facility], [facility] Unavailable [phone] Reason for Referral Not Available Allergies, adverse [...] 2022-07-10 No Data Available OneTouch Delica Plus Oultco15R Miscellaneous TEST BLOOD SUGAR TWICE DAILY 2022-07-16 [...] 2023-08-20 No Data Available [facility] Nasal [place] 0.65 % Solution USE 1 SPRAY IN [...] follow up on : Spoke with member's MACHINE HEEL BUILDER who lives next door. Member has been [...] on 12/01/24 to get ROS and for MACHINE HEEL BUILDER to do VS, and LVM. Will follow [...] on 06/19/2023RX: metoprolol, furosemide, amlodipinemonitor for fluid toiydscm0gf na diet, 2L fluid restrictionhas chronic edema, [...] 1111F, BP, A1c or other CPTII codes [facility]2023 Encounter for other specifie d aftercare RN, CN or CP time with patient by phone; use with 1111F, BP, A1c or other CPTII codes [facility] 04/[place]2023 RN, CN or CP time with patient by phone; use with 1111F, BP, A1c or other CPTII codes [facility] 06/11/2023 Encounter for other specifie d aftercare RN, CN or CP time with patient by phone; use with 1111F, BP, A1c or other CPTII codes [facility] 06/11/2023 New patient,40-59min; chronic exacerbation, 2 stable chronic or 1 acute illness add add modifier 95 for video (do not use for phone, instead use 61117-95) [facility] ([place]) 06/19/2023 Type 2 diabetes mellitus wit h diabetic chronic kidney diseaseChronic kidney disease, stage 3bObesity, unspecifiedPain in right toe(s)Pain in left toe(s)Other persistent atrial fibrillationOther thrombophiliaHeart failure, unspecifiedSecondary hyperaldosteronismBody mass index (bmi) 33.0-33.9, adult New patient,40-59min; chronic exacerbation, 2 stable chronic or 1 acute illness add add modifier 95 for video (do not use for phone, instead use 09491-15) [facility] 06/19/20[place] New patient,40-59min; chronic exacerbation, 2 stable chronic or 1 acute illness add add modifier 95 for video (do not use for phone, instead use 58513-51) [facility] 06[place]19[place] New patient,40-59min; chronic exacerbation, 2 stable chronic or 1 acute illness add add modifier 95 for video (do not use for phone, instead use 22390-19) [facility] 06[place]19[place] New patient,40-59min; chronic exacerbation, 2 stable chronic or 1 acute illness add add modifier 95 for video (do not use for phone, instead use 82787-17) [facility] 06[place]19[place] New patient,40-59min; chronic exacerbation, 2 stable chronic or 1 acute illness add add modifier 95 for video (do not use for phone, instead use 68887-27) [facility] 06/19[place] New patient,40-59min; chronic exacerbation, 2 stable chronic or 1 acute illness add add modifier 95 for video (do not use for phone, instead use 10128-44) [facility] 06/19[place]2023 No Data Available [facility] 08[place]2023 Pain in right toe(s)Pain in left toe(s) No Data Available [facility] 08/[place]2023 No Data Available [facility] 08/[place]2023 No Data Available [facility] 09/15/2023 Pain in right toe(s)Pain in left toe(s) No Data Available [facility] 09[place]2023 No Data Available [facility] [place] 11/25/2023 History of fallingType 2 diabetes mellitus with diabetic chronic kidney diseaseChronic kidney disease, stage 3bOther problems related to medical facilities and other health care No Data Available [facility] 11/25/2023 No Data Available [facility] 11/25/2023 No Data Available [facility] [place] 12/23/2023 Other specified counselingOt her problems related to medical facilities and other health care No Data Available [facility] [place] 12/23/2023 No Data Available [facility] 12/24/2023 Acute upper respiratory infection, unspecified No Data Available [facility] 01/20/2024 Dizziness and giddinessHisto ry of falling No Data Available [facility] 01/20/2024 No Data Available [facility] [place] 03/15/2024 Repeated fallsHistory of fallingDizziness and giddiness No Data Available [facility] [place] 03/15/2024 Estab. patient 20-29min; 1 stable chronic or 2 minor; add add modifier 95 for video, modifier 93 for phone [facility] [place] 04/13/2024 Hypertensive heart disease w ith heart failureHeart failure, unspecifiedSecondary hyperaldosteronismOther problems related to medical facilities and other health care Estab. patient 20-29min; 1 stable chronic or 2 minor; add add modifier 95 for video, modifier 93 for phone [facility] [place] 04/13/2024 Estab. patient 20-29min; 1 stable chronic or 2 minor; add add modifier 95 for video, modifier 93 for phone [facility] [place] 04/13/2024 No Data Available [facility] 09/30/2024 Pneumonia, unspecified organismType 2 diabetes mellitus with diabetic chronic kidney diseaseChronic kidney disease, stage 3bType 2 diabetes mellitus with diabetic neuropathy, unspecifiedHeart failure, unspecifiedSecondary hyperaldosteronismOther thrombophiliaOther persistent atrial fibrillationOther problems related to medical facilities and other health careHyp hrt & chr kdny dis w hrt fail and stg 1-unsp chr kdny No Data Available [facility] 09/30/2024 No Data Available [facility] 09/30/2024 Estab. patient 30-39min; chronic exacerbation, 2 stable chronic or 1 acute illness add add modifier 95 for video, (do not use for phone, instead use 57985-32) [facility] [place] 10/11/2024 Type 2 diabetes mellitus wit h [...] (do not use for phone, instead use 13162-08) [facility] [place] 10/11/2024 Estab. patient 30-39min; chronic exacerbation, 2 stable chronic or 1 acute illness add add modifier 95 for video, (do not use for phone, instead use 26411-94) [facility] ([place] 10[place]/2024 Estab. patient 30-39min; chronic exacerbation, 2 stable chronic or 1 acute illness add add modifier 95 for video, (do not use for phone, instead use 57791-93) [facility] [place] 10/11/2024 Estab. patient 30-39min; chronic exacerbation, 2 stable chronic or 1 acute illness add add modifier 95 for video, (do not use for phone, instead use 69755-00) [facility] [place] 10/11/2024 Estab. patient 30-39min; chronic exacerbation, 2 stable chronic or 1 acute illness add add modifier 95 for video, (do not use for phone, instead use 36888-32) [facility] [place] 10/11/2024 Estab. patient 30-39min; chronic exacerbation, 2 stable chronic or 1 acute illness add add modifier 95 for video, (do not use for phone, instead use 53642-79) [facility] Estab. patient 30-39min; chronic exacerbation, 2 stable chronic or 1 acute illness add add modifier 95 for video, (do not use for phone, instead use 18727-61) [facility] Estab. patient 30-39min; chronic exacerbation, 2 stable chronic or 1 acute illness add add modifier 95 for video, (do not use for phone, instead use 98996-34) [facility] 10[place] Estab. patient 10-29min; 1 minor problem; add add modifier 95 for video, modifier 93 for phone [facility] 12/01/2024 Other persistent atrial fibrillationOther thrombophiliaAnemia, unspecifiedOther problems related to medical facilities and other health care Estab. patient 10-29min; 1 minor problem; add add modifier 95 for video, modifier 93 for phone [facility] ([place] 12/01/2024 Vital Signs Date of Collection Vitals [...] tive Time Current Smoking Status Never smoker 2025-07-10 1 Sex Female History of Procedures Procedures Service Procedure code Service date Servicing provider Phone# RN, CN or CP time with patient by phone; use with 1111F, BP, A1c or other CPTII codes 94286 2023-04-20 No Data Available No Data Avai lable Medications prescribed in hospital were reviewed and reconciled against what they were taking prior to admission during today's visit. (1111F) 1111F 2023-04-20 No Data Available No Data Availa ble RN, CN or CP time with patient by phone; use with 1111F, BP, A1c or other CPTII codes 20499 2023-06-11 No Data Available No Data Avai lable Medications prescribed in hospital were reviewed and reconciled against what they were taking prior to admission during today's visit. (1111F) 1111F 2023-06-11 No Data Available No Data Availa ble New patient,40-59min; chronic exacerbation, 2 stable chronic or 1 acute illness add add modifier 95 for video (do not use for phone, instead use 64306-50) 86942 2023-06-19 No Data Available No Data Availa [...] 95 for video, modifier 93 for phone [id number] 2024-04-13 No Data Available No Data Availa [...] (do not use for phone, instead use 41955-24) 30702 2024-10-11 No Data Available No Data Availa [...] 95 for video, modifier 93 for phone 25262 2024-12-01 No Data Available No Data Availa [...] and is in the ER at [facility]. I have requested records. Not clear [...] mucinex prn, continue antibiotic as prescribed until pqzzerfoagF1L 7.0% on 06/19/2023FR 38 on 06/19/2023Ed re [...] pericardial effusion.RX: metoprolol, furosemide, amlodipinemonitor for fluid cvresfrz2ci na diet, 2L fluid restrictionhas chronic edema, [...] follow up on : Spoke with member's MACHINE HEEL BUILDER who lives next door. Member has been [...] on 12/01/24 to get ROS and for MACHINE HEEL BUILDER to do VS, and LVM. Will follow [...]
--- OUTSIDE RECORDS SUMMARY | 2025-07-20 16:00 | XMS_ITS | Encounter Summary ---
Author Organization [facility] Address [address] [place] [address] Phone Care Team Providers Care Shadow Graph Weight Operator Name Role Phone Flor Marie MD Primary Care Pro vider Encounter Details Date Type Department Care Team (Latest Contact Info) Description 02/11/2018 Ancillary Orders [facility] [address] [place] [address] Dawood Hwang DO [address] [place] [address] Atrial fibrillation, unspecified type Social History Tobacco Use Types Packs/Day Years Used Date Smoking Tobacco: Never Assessed Comments Unknown Sex and Gender Information Value Date Recorded Sex Assigned at Not on file Legal Sex Female 10:38 PM EDT Gender Identity Not on file Sexual Orientation Not on file documented as of this encounter Plan of Treatment Upcoming Encounters Date Type Department Care Team (Late st Contact Info) Description 11/20/2025 11:10 AM EST Office Visit [facility] [address] [place] [address] Lc Haynes [address] [place] [address] documented as of this encounter Results * Holter Monitor 24 Hours (02/11/2018 9:58 AM EDT) Anatomical Region Laterality Modality Heart Other Narrative 02/11/2018 12:06 PM EDT 24-hour monitor: No symptoms reported. Baseline rhythm is atrial fibrillation with a ventricular response ranging from 48 bpm minimum to 177 bpm maximum with an average of 88 bpm. Longest pause is 2.08 seconds. There were occasional wide complex beats, either PVCs or atrial fibrillation with aberrant conduction. Impression: Abnormal 24-hour monitor. No symptoms reported. Atrial fibrillation present throughout the recording. Details above. Dawood Hwang DO [facility] ORDERABLE S Final Result documented in this encounter Visit Diagnoses Diagnosis Atrial fibrillation, unspecified type Atrial fibrillation, unspecified type documented in this encounter Care Teams Shadow Graph Weight Operator Relationship Specialty Start Date End Date Flor Marie MD [address] [place] [address] PCP - General Internal Medicine 11/26/23 documented as of this encounter Additional Source Comments The information contained in this document represents components of the legal health record. It is not the complete legal health record.[facility]
--- OUTSIDE RECORDS SUMMARY | 2025-07-20 16:00 | XMS_ITS | Clinical Summary ---
Author Organization [facility] Address [address] [place] [address] Care Team Providers Care Agent Broker Name Role Phone Areli Song Primary Care Provider [phone] Allergies Active Allergy Reactions Criticality Noted Date [...] each day 06/04/2021 Active Calcium Citrate-Vitamin D (Addy Calcium/Vitamin D) 200-250 MG-UNIT tablet Take 2 [...] 07/20/2023, 10/23/2017, 11/06/2015, Additional history exists Insurance [employer] ([id number]) [address] [place] [address] [address] [id number]) Care Teams Agent Broker Relationship Specialty Start Date End Date Areli Song PCP - General Family Medicine 06/17/21
== END 2025-07-20 12:05 | disposition home or self-care (01) ==
LOC: HO.HGI 11:39
PROVIDERS: Visit Provider Nurse Practitioner Family
DX: K59.04 Chronic idiopathic constipation (principal); R14.0 Abdominal distension (gaseous); K21.9 Gastro-esophageal reflux disease without esophagitis
CPT/HCPCS: 99213

== ENCOUNTER → 2025-07-20 11:38 | Outpatient (BNVA) | payer OTHER, SELFPAY | PROVIDERS: Visit Provider Nurse Practitioner Family | DX: K59.04 Chronic idiopathic constipation (principal); R14.0 Abdominal distension (gaseous); K21.9 Gastro-esophageal reflux disease without esophagitis | CPT/HCPCS: 99212 ==

== ENCOUNTER 2025-08-09 13:38 | Outpatient (REF) | payer OTHER, SELFPAY ==
--- NOTE | ~2025-08-09 | US_ITS ---
EXAMINATION: US LOWER EXTREMITY VENOUS (REFLUX EXAM), BILATERAL CLINICAL INFORMATION: Edema, lower extremities. COMPARISON: None. TECHNIQUE: Color flow triplex imaging and compression Doppler was performed to evaluate both the deep and the superficial systems bilaterally. To evaluate the superficial system, the examination was performed in the upright position. Color-flow Doppler ultrasound and compression ultrasound were utilized. In addition, maneuvers were utilized to demonstrate reflux. FINDINGS: 1. DEEP VENOUS ULTRASOUND OF THE RIGHT LOWER EXTREMITY: Common Femoral Vein: Compressible, normal respiratory variation and augmented flow. Femoral Vein: Compressible, normal color flow and augmentation. Popliteal Vein: Compressible, normal augmentation. Deep Reflux: There is no evidence of reflux in the deep system in either the common femoral vein, superficial femoral or the popliteal vein. There is a 6.4 x 1.9 x 4.0 cm anechoic lesion without internal echoes or flow on color Doppler interrogation centered in the popliteal fossa. 2. SUPERFICIAL ULTRASOUND WITH DOPPLER OF RIGHT LOWER EXTREMITY: GREAT SAPHENOUS VEIN: Saphenofemoral Junction: 0.4 cm; Reflux: 0 ms Proximal Thigh: 0.4 cm; Reflux: 0 ms Mid Thigh: 0.2 cm; Reflux: 0 ms Distal Thigh: 0.2 cm; Reflux: 0 ms At Knee: 0.2 cm; Reflux: 0 ms Proximal Calf: 0.2 cm; Reflux: 0 ms Mid Calf: 0.2 cm; Reflux: 0 ms Distal Calf: 0.2 cm; Reflux: 0 ms DUPLICATED MEDIAL GREAT SAPHENOUS VEIN: Diameter: None imaged Reflux: NA DUPLICATED LATERAL GREAT SAPHENOUS VEIN: Diameter: 0.3 cm. Reflux: NA SMALL SAPHENOUS VEIN: Saphenopopliteal Junction: 0.3 cm; Reflux: 0 ms Proximal: 0.3 cm; Reflux: 0 ms Distal: 0.2 cm; Reflux: 0 ms VEIN OF GIACOMINI: Size: 0.1 cm. Reflux: NA PERFORATORS: Location: None imaged Size: NA Reflux: NA VARICOSITIES: Location: None imaged. Size: NA Reflux: NA 3. DEEP VENOUS ULTRASOUND OF THE LEFT LOWER EXTREMITY: Common Femoral Vein: Compressible, normal respiratory variation and augmented flow. Femoral Vein: Compressible, normal color flow and augmentation. Popliteal Vein: Compressible, normal augmentation. Deep Reflux: There is no evidence of reflux in the deep system in either the common femoral vein, superficial femoral or the popliteal vein. There is no evidence of a Song's cyst. 4. SUPERFICIAL ULTRASOUND WITH DOPPLER OF LEFT LOWER EXTREMITY: GREAT SAPHENOUS VEIN: Saphenofemoral Junction: 0.9 cm; Reflux: 0 ms Proximal Thigh: 0.5 cm; Reflux: 0 ms Mid Thigh: 0.2 cm; Reflux: 0 ms Distal Thigh: 0.2 cm; Reflux: 0 ms At Knee: 0.3 cm; Reflux: 0 ms Proximal Calf: 0.2 cm; Reflux: 0 ms Mid Calf: 0.2 cm; Reflux: 0 ms Distal Calf: 0.2 cm; Reflux: 0 ms DUPLICATED MEDIAL GREAT SAPHENOUS VEIN: Diameter: None imaged Reflux: NA DUPLICATED LATERAL GREAT SAPHENOUS VEIN: Diameter: 0.4 cm. Reflux: NA SMALL SAPHENOUS VEIN: Saphenopopliteal Junction: 0.2 cm; Reflux: 0 ms Proximal: 0.2 cm; Reflux: 0 ms Distal: 0.2 cm; Reflux: 0 ms VEIN OF GIACOMINI: Size: NA Reflux: NA PERFORATORS: Location: Great saphenous vein proximal mid thigh, at the knee and proximal calf. Size: 0.2 cm. Reflux: NA VARICOSITIES: Location: None Imaged Size: NA Reflux: NA US/US venous insuf bilat IMPRESSION: Right: No venous insufficiency. 6.4 cm popliteal cyst.. Left: No venous insufficiency. Perforators without reflux. Electronically signed by: Jose Luis Levine MD 08/10/2025 07:45 AM EDT
--- OUTSIDE RECORDS SUMMARY | 2025-08-09 14:52 | XMS_ITS | Encounter Summary ---
Author Organization [employer] Address [address] [place] [address] 7 [place] [address] Care Team Providers Care Wire Mill Rover Name Role Phone Flor Marie MD Primary Care Pro vider Reason for Visit * Reason Comments Med Refill Encounter Details Date Type Department Care Team ([facility] st Contact Info) Description 08/11/2024 Refill [facility] [address] [place] [address] Flor Marie MD [address] [place] [phone] Social History Tobacco Use Types Packs/Day Years [...] Upcoming Encounters Date Type Department Care Team ([facility] st Contact Info) Description 09/08/2025 2:00 PM EDT Clinical Support [address] [address] 10/19/2025 1:15 PM EST Office Visit [address] [address] Flor Marie MD [address] [place] [address] documented as of this encounter Visit Diagnoses Not on filedocumented in this encounter Additional Health Concerns Assessment Noted Time PHQ-9 Depression Total Score: 19 023 2:14 PM EDT documented as of this encounter Care Teams Wire Mill Rover Relationship Specialty Start Date End Date Flor Marie MD [address] [place] [address] PCP - General Internal Medicine 05/18/23 [facility] 01/17/25 07/06/25 [facility] documented as of this encounter
--- OUTSIDE RECORDS SUMMARY | 2025-08-09 14:52 | XMS_ITS | Encounter Summary ---
Author Organization [employer] Address [address] [place] [address] 7 [place] [address] Care Team Providers Care Avaya Engineer Name Role Phone Flor Marie MD Primary Care Pro vider Reason for Visit * Reason Comments Med Refill Encounter Details Date Type Department Care Team (Late st Contact Info) Description 06/05/2023 Refill [facility] [address] [place] [address] [phone] Carolyn Ceballos FNP Age-related osteoporosis without current pathological fracture Social [...] Description 09/08/2025 2:00 PM EDT Clinical Support [facility] [address] [place] [address] [phone] 10/19/2025 1:15 PM EST Office Visit [facility] [address] [place] [address] [phone] Flor Marie MD [address] [place] [address] [phone] documented as of this encounter Visit Diagnoses Diagnosis Age-related osteoporosis without current pathological fracture documented in this encounter Care Teams Avaya Engineer Relationship Specialty Start Date End Date Flor Marie MD [address] [place] [address] PCP - General Internal Medicine 05/18/23 [facility] 01/17/25 07/06/25 [facility] 06/29/25 documented as of this encounter
--- OUTSIDE RECORDS SUMMARY | 2025-08-09 14:52 | XMS_ITS | Encounter Summary ---
Author Organization [employer] Address [address] [place] [address] Care Team Providers Care Electrotype Servicer Name Role Phone Carolyn Ceballos STEWARD/STEWARDESS LOUNGE Primary Care Provider Flor Tobar MD Primary Care Pro vider Reason for Visit * Reason Onset Date Comments Appointment Request 04/29/2023 Encounter Details Date Type Department Care Team (Late st Contact Info) Description 04/29/2023 Telephone [facility] [address] [place] [address] Carolyn Ceballos FNP Appointment Request Social History Tobacco Use Types [...] - 04/30/2023 9:22 AM EDT T/C to [phone] to re-schedule HDF. No answer. LVM to call back on [phone]. * Telephone Encounter - Caity Robles - 04/29/2023 2:54 PM EDT Tc from pt canceled HDF for 05/01/23 and would like to r/s . documented in this encounter Plan of Treatment Upcoming Encounters Date Type Department Care Team (Late st Contact Info) Description 09/08/2025 2:00 PM EDT Clinical Support [address] [address] 10/19/2025 1:15 PM EST Office Visit [address] [address] Flor Marie MD [address] [place] [address] documented as of this encounter Visit Diagnoses Not on filedocumented in this encounter Care Teams Electrotype Servicer Relationship Specialty Start Date End Date Carolyn Ceballos FNP PCP - General Family Medicine 07/02/22 05/17/23 Flor Marie MD [address] [place] [address] PCP - General Internal Medicine 05/18/23 [facility] 01/17/25 07/06/25 [email or web address] 06/29/25 documented as of this encounter
--- OUTSIDE RECORDS SUMMARY | 2025-08-09 14:52 | XMS_ITS | Clinical Summary ---
Author Organization [facility] Address [address] [place] [address] Phone Care Team Providers Care Blow Mold Operator Name Role Phone Flor Marie MD [...] best at this point to go through [facility] because she can get this study done faster. At [facility] Alyson is going to take over a [...] 11:10 AM EST Office Visit [facility] [address] [place] [address] Lc Haynes DO [address] [place] [address] Health Maintenance Due Date Last Done Comments [...] EDT) SODIUM 142 133 - 146 mmol/L [facility] POTASSIUM 4.1 3.3 - 5.1 mmol/L [facility] CHLORIDE 104 96 - 108 mmol/L [facility] CO2 30 21 - 35 mmol/L [facility] BUN 28(H) 6 - 19 mg/dL [facility] CREATININE 0.90 0.5 - 1.5 mg/dL [facility] GLUCOSE 128(H) 70 - 99 mg/dL [facility] ALBUMIN 4.3 3.9 - 4.8 g/dL [facility] TOTAL PROTEIN 7.2 6.5 - 8.0 g/dL [facility] CALCIUM 9.4 8.4 - 10.3 mg/dL [facility] ALKALINE PHOSPHATASE 97 39 - 117 U/L [facility] TOTAL BILIRUBIN 0.4 0.0 - 1.2 mg/dL [facility] AST 23 0 - 37 U/L [facility] ALT 14 0 - 40 U/L [facility] GLOBULIN 2.9 1 - 4.8 g/dL [facility] EGFR 65 >59 mL/min/1.7 3m2 [facility] Comment:Estimated glomerular filtration rate calculated using the CKD-EPI refit equation. ANION GAP 12 10 - 20 mmol/L [facility] Blood 02/10/2024 10:1 7 AM EDT 02/10/2024 10:33 AM EDT us Lc Haynes DO LAB BLOOD ORDERABLES Final Resul t [facility] [address] [place], [place] [phone] from Last 3 Months or Most Recently Relevant to Health Maintenance Insurance MEDICARE PART A & B [facility] DUAL MEDICARE REPLACEMENT Member Subscriber Plan / Payer (Ef fective 2022-Present) Name:Roseanna Hurt Relation to Subscriber:Self Name:Roseanna Hurt Payer ID:[id number] (NAIC) Group ID:Not on file Type:Medicare Address: [place] [phone] MEDICARE PART A & B DUAL MEDICARE REPLACEMENT MEDICARE PART A & B MEDICARE PART A & B MEDICARE PART A & B DUAL MEDICARE REPLACEMENT MEDICARE PART A & B MEDICARE PART A & B DUAL MEDICARE REPLACEMENT MEDICARE PART A & B [facility] DUAL MEDICARE REPLACEMENT MEDICARE PART A & B DUAL MEDICARE REPLACEMENT Care Teams Blow Mold Operator Relationship Specialty Start Date End Date Flor Marie MD [address] [place] [address] PCP - General Internal Medicine 11/26/23 Additional Source Comments The information contained in this document represents components of the legal health record. It is not the complete legal health record.[facility]
--- OUTSIDE RECORDS SUMMARY | 2025-08-09 14:52 | XMS_ITS | Encounter Summary ---
Author Organization [employer] Address [address] [place] [address] 7 [place] [address] Care Team Providers Care Orthopaedic Technologist Name Role Phone Flor Marie MD Primary Care Pro vider Reason for Visit * Reason Onset Date Comments fyi 07/19/2025 Encounter Details Date Type Department Care Team (Late st Contact Info) Description 07/19/2025 Telephone [facility] [address] [place] [address] Flor Marie MD [address] [place] [address] fyi Social History Tobacco Use Types Packs/Day Years [...] encounter Miscellaneous Notes * Telephone Encounter - Jonnie Zimmerman - 07/19/2025 3:44 PM EDT Tc from Mary Kay Veloz at [facility] [employer] stating pt refused physical therapy and will be discharged of services Contact Mary Kay at [phone] documented in this encounter Plan of Treatment Upcoming Encounters Date Type Department Care Team (Late st Contact Info) Description 09/08/2025 2:00 PM EDT Clinical Support [facility] [address] [place] [address] 10/19/2025 1:15 PM EST Office Visit [facility] [address] [place] [address] Flor Marie MD [address] [place] [address] documented as of this encounter Visit Diagnoses Not on filedocumented in this encounter Additional Health Concerns Assessment Noted Time PHQ-9 Depression Total Score: 18 025 2:59 PM EDT documented as of this encounter Care Teams Orthopaedic Technologist Relationship Specialty Start Date End Date Flor Marie MD [address] [place] [address] PCP - General Internal Medicine 05/18/23 [facility] 06/29/25 documented as of this encounter
--- OUTSIDE RECORDS SUMMARY | 2025-08-09 14:53 | XMS_ITS | Encounter Summary ---
Author Organization [employer] Address [address] [place] [address] 7 [place] [address] Care Team Providers Care Neurosurgical Physician Assistant Name Role Phone Flor Marie MD Primary Care Pro vider Reason for Visit * Reason Comments Med Refill Encounter Details Date Type Department Care Team ([facility] st Contact Info) Description 03/25/2024 Refill [facility] [address] [place] [address] Flor Marie MD [address] [place] [address] Social History Tobacco Use Types Packs/Day Years [...] Description 09/08/2025 2:00 PM EDT Clinical Support [facility] [address] [place] [phone] 10/19/2025 1:15 PM EST Office Visit [facility] [address] [place] [address] Flor Marie MD [address] [place] [address] documented as of this encounter Visit Diagnoses Not on filedocumented in this encounter Additional Health Concerns Assessment Noted Time PHQ-9 Depression Total Score: 19 023 2:14 PM EDT documented as of this encounter Care Teams Neurosurgical Physician Assistant Relationship Specialty Start Date End Date Folr Marie MD [address] [place] [address] PCP - General Internal Medicine 05/18/23 [facility] 01/17/25 07/06/25 [facility] 06/29/25 documented as of this encounter
--- OUTSIDE RECORDS SUMMARY | 2025-08-09 14:53 | XMS_ITS | Encounter Summary ---
Author Organization [employer] Address [address] [place] [address] Care Team Providers Care Gate Person Name Role Phone Carolyn Ceballos RADIOLOGY PHYSICIAN ASSISTANT Primary Care Provider Flor Tobar MD Primary Care Pro vider Encounter Details Date Type Department Care Team (Latest Contact Info) Description 05/23/2022 Abstract [facility], Provider, DDS Social History Tobacco [...] Description 09/08/2025 2:00 PM EDT Clinical Support [facility] [address] [place] [address] 10/19/2025 1:15 PM EST Office Visit [facility] [address] [place] [address] Flor Marie MD [address] [place] [address] documented as of this encounter Visit Diagnoses Not on filedocumented in this encounter Care Teams Gate Person Relationship Specialty Start Date End Date Carolyn Ceballos FNP PCP - General Family Medicine 07/02/22 05/17/23 Flor Marie MD [address] [place] [phone] PCP - General Internal Medicine 05/18/23 [facility] 01/17/25 07/06/25 [facility] 06/29/25 documented as of this encounter
--- OUTSIDE RECORDS SUMMARY | 2025-08-09 14:53 | XMS_ITS | Encounter Summary ---
Author Organization [employer] Address [address] [place] [address] 7 [place] [address] Care Team Providers Care Picture Frames Inspector Name Role Phone Flor Marie MD Primary Care Pro vider Reason for Visit * Reason Onset Date Comments FYI 04/08/2024 Verbal Orders 04/08/2024 Hospital Follow-up 04/08/2024 Encounter Details Date Type Department Care Team ([facility] Contact Info) Description 04/08/2024 Telephone [facility] [address] [place] [address] Flor Marie MD [address] [place] [address] FYI; Verbal Orders ; Hospital Follow-up Social [...] 04/11/2024 9:55 AM EDT TC placed to [facility] with the [facility] to give VO to start PT. Pt is currently receiving nursing twice a week for one week and then once a week for six weeks. Harshaw also wants PCP to be aware of the reaction between Plavix and Eliquis. documented in this encounter Plan of Treatment Upcoming Encounters Date Type Department Care Team (Late st Contact Info) Description 09/08/2025 2:00 PM EDT Clinical Support [facility] [address] [place] [address] 10/19/2025 1:15 PM EST Office Visit [facility] [address] [place] [address] Flor Marie MD [address] [place] [address] documented as of this encounter Visit Diagnoses Not on filedocumented in this encounter Additional Health Concerns Assessment Noted Time PHQ-9 Depression Total Score: 19 023 2:14 PM EDT documented as of this encounter Care Teams Picture Frames Inspector Relationship Specialty Start Date End Date Flor Marie MD [address] [place] [address] PCP - General Internal Medicine 05/18/23 [facility] 01/17/25 07/06/25 [facility] 06/29/25 documented as of this encounter
--- OUTSIDE RECORDS SUMMARY | 2025-08-09 14:53 | XMS_ITS | Encounter Summary ---
Author Organization [employer] Address [address] [place] [address] [place] [address] Care Team Providers Care Health And Safety Tech Name Role Phone Flor Marie MD Primary Care Pro vider Reason for Visit * Reason Onset Date Comments FYI 04/13/2024 Encounter Details Date Type Department Care Team ([facility] st Contact Info) Description 04/13/2024 Telephone [facility]INE [address] [place] [address] Flor Marie MD [address] [place] [address] FYI Social History Tobacco Use Types Packs/Day [...] PM EDT Tc from Anthony with [facility] calling to inform did the evaluation for PT and the plan is to see pt 2 times a week for 3 weeks and then 1 time a week for 2 weeks. Any questions contact Anthony at [phone] documented in this encounter Plan of Treatment Upcoming Encounters Date Type Department Care Team (Late st Contact Info) Description 09/08/2025 2:00 PM EDT Clinical Support [facility]INE [address] [place] [address] 10/19/2025 1:15 PM EST Office Visit [facility] [address] [place] [address] Flor Marie MD [address] [place] [address] documented as of this encounter Visit Diagnoses Not on filedocumented in this encounter Additional Health Concerns Assessment Noted Time PHQ-9 Depression Total Score: 19 023 2:14 PM EDT documented as of this encounter Care Teams Health And Safety Tech Relationship Specialty Start Date End Date Flor Marie MD [address] [place] [address] PCP - General Internal Medicine 05/18/23 [facility]25 07/06[facility]25 [facility] 06/29/25 documented as of this encounter
--- OUTSIDE RECORDS SUMMARY | 2025-08-09 14:53 | XMS_ITS | Encounter Summary ---
Author Organization [facility] Address [address] [place] [address] Phone Care Team Providers Care Rd Lab Technician Name Role Phone Flor Marie MD Primary Care Pro vider Encounter Details Date Type Department Care Team (Latest Contact Info) Description 02/11/2018 Ancillary Orders [facility] [address] [place] [address] Dawood Hwang [address] [address] Atrial fibrillation, unspecified type Social History Tobacco [...] AM EST Office Visit [facility] [address] [place] [address] L[facility] [address] [place] [address] documented as of this encounter Results * [...] type documented in this encounter Care Teams Rd Lab Technician Relationship Specialty Start Date End Date Flor Marie MD [address] [place] [phone] PCP - General Internal Medicine 11/26/23 documented as of this encounter Additional Source Comments The information contained in this document represents components of the legal health record. It is not the complete legal health record.[facility]
--- OUTSIDE RECORDS SUMMARY | 2025-08-09 14:53 | XMS_ITS | Clinical Summary ---
Author Organization [facility] Address [address] [place] [address] Care Team Providers Care Steel Die Press Set Up Operator Name Role Phone Areli Song Primary Care Provider [phone] Allergies Active Allergy Reactions Criticality Noted Date [...] each day 06/04/2021 Active Calcium Citrate-Vitamin D ([place] Calcium/Vitamin D) 200-250 MG-UNIT tablet Take 2 [...] 07/20/2023, 10/23/2017, 11/06/2015, Additional history exists Insurance [id number] ([id number]) [address] [place] [id number] [id number] Care Teams Steel Die Press Set Up Operator Relationship Specialty Start Date End Date Areli Song PCP - General Family Medicine 06/17/21
--- OUTSIDE RECORDS SUMMARY | 2025-08-09 14:53 | XMS_ITS | Encounter Summary ---
Author Organization [employer] Address [address] [place] [address] Care Team Providers Care Hospice Community Liaison Name Role Phone Flor Marie MD Primary Care Pro vider Encounter Details Date Type Department Care Team ([facility] st Contact Info) Description 08/24/2024 Orders Only [facility] [address] [place] [address] Haroon Finn MD [address] [place] [address] Social History Tobacco Use Types Packs/Day Years [...] Description 09/08/2025 2:00 PM EDT Clinical Support [address] [address] 10/19/2025 1:15 PM EST Office Visit [address] [address] Flor Marie MD [address] [place] [address] documented as of this encounter Visit Diagnoses Not on filedocumented in this encounter Additional Health Concerns Assessment Noted Time PHQ-9 Depression Total Score: 19 023 2:14 PM EDT documented as of this encounter Care Teams Hospice Community Liaison Relationship Specialty Start Date End Date Flor Marie MD [address] [place] [address] PCP - General Internal Medicine 05/18/23 [facility] 01/17/25 07/06/25 [facility]25 documented as of this encounter
--- OUTSIDE RECORDS SUMMARY | 2025-08-09 14:53 | XMS_ITS | Clinical Summary ---
Author Organization [employer] Address [address] [place] [address] Care Team Providers Care Stock Pitcher Name Role Phone Flor Marie MD Primary [...] 09/08/20 22 Active Blood Glucose Monitoring Suppl (SPEEDELOTouch Verio Flex System) w/Device kit USE DIRECTED 07/16/20 22 Active docusate sodium (Colace) 100 MG capsule TAKE 1 CAPSULE BY MOUTH TWICE DAILY 12/23/19 23 Active Myrbetriq 50 MG 24 hr tablet Take 1 tablet by mouth 1 (one) time each day. 03/16/20 23 Active furosemide (Lasix) 40 MG tablet Take 1 tablet by mouth Once per day. Active lidocaine (Lidoderm) 5 % patch [...] 100 each 11 11/18/19 24 Active Lancets (SPEEDELOTouch Delica Plus [id number]) misc TEST BLOOD SUGAR TWICE A DAY 100 each 11/18/19 24 Active ceramides (CeraVe) moisturizing cream Apply 1 Application. topically if needed for dry skin. 340 g 11/27/19 24 Active albuterol 108 (90 Base) MCG/ACT inhaler INHALE 2 PUFFS BY MOUTH EVERY 4 TO 6 HOURS NEEDED 8.5 g 1 07/01/20 24 Active acetaminophen (Tylenol) 325 MG tabletIndicatio ns:Chest wall pain Take 2 tablets (650 mg) by mouth every 8 (eight) hours if needed for moderate pain. 30 tablet 1 07/22/20 24 Active Fluticasone-Jorden meterol 250-50 MCG/ACT aerosol powderIndicatio ns:Pulmonary emphysema, unspecified emphysema type INHALE 1 PUFF BY MOUTH TWICE DAILY AT NOON AND IN THE EVENING, RINSE MOUTH AFTER USING., DO NOT SWALLOW 60 each 5 10/24/20 24 Active losartan (Cozaar) 25 MG tablet Take 25 mg by mouth Once per day. Active metFORMIN (Glucophage) 850 MG tablet Take 1 tablet (850 mg) by mouth Once per day. 90 tablet 3 01/13/20 25 Active Bisacodyl EC 5 MG EC tablet Take 2 tablets by mouth at bedtime. 11/29/19 25 Active Fiber-Lax 625 MG tablet Take 1 tablet by mouth Once per day. 11/29/19 25 Active D3 Super Strength 50 MCG (2000 UT) capsule Take 1 capsule by mouth Once per day. 03/16/20 24 Active clopidogrel (Plavix) 75 MG tabletIndicatio ns:Acute Coronary Syndrome Take 75 mg by mouth Once per day. Active simethicone (Mylicon) 80 MG chewable tablet Chew 80 mg every 6 (six) hours if needed for flatulence. Active Blood Pressure kit 1 each 2 times daily. 1 kit 01/21/20 25 026 Active DULoxetine (Cymbalta) [address] capsule TAKE 1 CAPSULE BY MOUTH EVERY MORNING. DO NOT BREAK, CRUSH, DISSOLVE OR CHEW. 30 capsule 2 04/04/20 25 Active albuterol (2.5 MG/3ML) 0.083% nebulizer solution USE 1 VIAL IN NEBULIZER EVERY 6 HOURS 90 mL 3 04/07/20 25 Active Calcium Citrate + D3 Maximum tablet Take 1 tablet by mouth 2 times daily. 01/13/20 25 Active nitroglycerin (Nitrostat) 0.[address] 0.4 mg under the tongue. 02/18/20 25 Active cetirizine (ZyrTEC) 10 MG tablet Take 1 tablet (10 mg) by mouth if needed each day for allergies. 90 tablet 04/25/20 25 Active atorvastatin (Lipitor) 80 MG tablet TAKE 1 TABLET BY MOUTH ONCE DAILY 90 tablet 1 05/05/20 25 Active metoprolol succinate XL (Toprol-XL) 50 MG 24 hr tablet TAKE 1 TABLET BY MOUTH EVERY DAY IN THE MORNING 30 tablet 2 05/29/20 25 Active ferrous gluconate (Fergon) 324 (38 Fe) MG tablet TAKE 1 TABLET BY MOUTH EVERY DAY IN THE MORNING WITH BREAKFAST 90 tablet 1 06/05/20 25 Active Eliquis 5 MG tabletIndicatio ns: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 TAKE 1 TABLET BY MOUTH TWICE DAILY 60 tablet 2 06/08/20 25 Active SITagliptin (Januvia) 50 MG tabletIndicatio ns:Type 2 diabetes mellitus with stage 3b chronic kidney disease, without long-term current use of insulin (HCC) Take 1 tablet (50 mg) by mouth Once per day. 90 tablet 1 06/20/20 25 026 Active Blood Glucose Monitoring Suppl (ONE TOUCH ULTRA 2) w/Device kitIndications: Type 2 diabeted E11.9 Use to check blood sugar once daily 1 kit 07/06/20 25 Active glucose blood (OneTouch Ultra) test stripIndication s:Type 2 diabetes E11.9 Use to check blood sugar once daily 100 each 12 07/06/20 25 026 Active OneTouch UltraSoft 2 Lancets miscIndications :Type 2 diabetes E11.9 1 each Once per day. Use to check blood sugar once daily 100 each 11 07/06/20 25 Active traZODone (Desyrel) 100 MG tablet Take 1 tablet (100 mg) by mouth at bedtime. 90 tablet 07/31/20 25 Active traZODone (Desyrel) 100 MG tablet Take 1 tablet (100 mg) by mouth at bedtime. 90 tablet 12/07/19 25 025 Discontinued(Re order (will not trigger notification to Pharmacy)) Active Problems Problem Noted Date Diagnosed Date Thyroid nodule 04/11/2025 Lung nodule 04/11/2025 Prolonged grief disorder 03/30/2025 Chronic pain of right knee 01/20/2025 ST elevation myocardial infarction (STEMI) 01/20 Assessment & Plan (02/27/2025 1:26 PM EDT): Denies cp or pressure, continue metoprolol which pt is toleraing, rate controlled. Today Baseline edema Encouraged daily weights and bp checks Bp cuff sent home Agree with pharmacy recommendation for [facility] once pt returns with bp measurements and updated labs Reviewed goal bp with daughter and pt Edema of right lower extremity 01/20/2025 Chronic renal disease, stage IV ([facility]) 2023 Assessment & Plan (02/27/2025 1:25 PM EDT): Trend labs as ordered below Urgency of urination 11/29/2023 Assessment & Plan [...] ( not able to obtain sample today) Imbalance 11/03/2023 Frail elderly 11/03/2023 Poor memory 11/03/2023 UPJ obstruction, acquired 08/11/2023 Severe obesity (BMI 35.0-39.9) with comorbidity ([facility]) 08/11/2023 Gross hematuria 08/11/2023 GERD without esophagitis 08/11/2023 Dysphagia, pharyngoesophageal phase 08/11/2023 Cystocele with rectocele 08/11/2023 Anxiety 08/11/2023 Alcohol abuse 08/11/2023 Mitral regurgitation 07/20/2023 Severe episode of recurrent major depressive disorder, with psychotic features ([facility]) 07/20/2023 Assessment & Plan (03/30/2025 9:25 AM EDT): During IBH Consult Roseanna presenting with depressed mood, Tearful, hopelessness, irritable mood, loss of interests/pleasure , sense of isolation/loneliness , change in appetite or weight reduce appetite, changes in sleep difficulty falling asleep and difficulty staying asleep , psychomotor retardation, fatigue/loss of energy, worthlessness, difficulty concentrating, indecisiveness, excessive worry/anxiety, difficulty controlling worry, anxiety/worry associated to easily fatigued , difficulty concentrating and/or mind going blank , irritability, muscle tension , and sleep disturbance difficulty falling asleep and difficulty staying asleep , Fear , and sense of dread , and intense yearning, preoccupation about son, seen her son face at home, struggle to feel love; for a period of 18+ mo, for some symptoms in the context of son's , stress relationship with DIE CAST ENGINEER, lack of formal and informal support. PLAN: (check all that apply) New/Additional Services needed Off-site services for Behavioral Health Integration Plan External OP BH therapy referral and OP psychiatry Referral Patient Self Plan [facility], Comply with medication , Patient to engage in OP therapy , and Patient to reach out to [facility] as needed Tinnitus 07/20/2023 Nephrolithiasis 06/17/2023 Assessment & Plan (06/17/2023 6:28 PM EDT): 04/19/23 MRI abd Moderate R hydronephrosis and Mild [facility]phrosis [facility] Easy bruisability 06/17/2023 NSTEMI (non-ST elevated myocardial infarction) 0 05/04/2023 Overview (05/12/2023): [facility] 04[facility]10/23-Discharged 04/19/23 Transferred [place] [facility] [place] 04/27/23, f/u cath. severe mid [...] CBC and iron studies Persistent atrial fibrillation (CMS/HCC) 023 Overview (08/11/2023): 04/27/23: Treating w/ Apixaban Assessment & Plan (02/27/2025 1:22 PM EDT): Denies palpitations lightheadedness, continue apixaban Upcoming visit with cardiology Renew plavix Assessment & Plan (03/18/2023 11:28 AM EDT): Heart rate is controlled. FU with cardiology next week. Continue Eliquis and check hemoglobin due to gross hematuria. Continue carvdelol 2.125 + diltiazem 180 mg Will determine furhter therapy with Eliquis after result of H&H check Acute on chronic congestive heart failure 2022 Overview (08/11/2023): Echocardiogram performed at [facility] on 04/15/2023 showing ejection fraction 30 [...] MR recommended Stage 3 chronic kidney disease (CMS/HCC) 021 Varicose veins of right lower extremity with [...] Problem Noted Date Diagnosed Date Resolved Date Bronchitis 03/29/2025 06/20/2025 Assessment & Plan (03/29/2025 2:42 PM EDT): XRAY ordered patient will be contacted with results Medications ordered ED precautions reviewed Skin pruritus 11/29/2023 04/11/2025 Assessment & Plan (11/29/2023 9:55 AM EST): [...] weeks will consider permetrine tx as trial Coccyx pain 11/29/2023 04/11/2025 Assessment & Plan (11/29/2023 10:00 AM EST): [...] for medical attention given she takes AC COVID-19 08/11/2023 11/03/2023 Intertrigo 07/20/2023 11/03/2023 Weight loss 06/17/2023 11/03/2023 Encounters Date Type Department Care Team Description 07/31/2025 Telephone [facility] MEDICINE [address] [place] [phone] Flor Marie MD 07/31/2025 Refill [facility] CHC MED & PEDS [address] [place] [address] Flor Marie MD 07/21/2025 Telephone [facility] PEDIATRICS [address] [place] [address] Flor Marie MD Follow-up 07/19/2025 Telephone [facility] MEDICINE [address] [place] [phone] Flor Marie MD fyi 07/03/2025 Refill [facility] MEDICINE [address] [place] [phone] Flor Marie MD 06/20/2025 1:00 PM EDT Office Visit [facility] MEDICINE [address] [place] [phone] Flor Marie MD Type 2 diabetes mellitus with stage 3b chronic kidney disease, without long-term current use of insulin ([facility]) (Primary Dx); Right leg pain; Leg swelling; Right foot pain; Varicose veins of right lower extremity with inflammation; Thyroid nodule; Chronic renal disease, stage IV (CMS/HCC); Nephrolithiasis; Health care maintenance; Primary osteoarthritis involving multiple joints; Poor memory; Edema of right lower extremity; Frail elderly; Imbalance 06/20/2025 Results Follow-Up [facility] MEDICINE [address] [place] [address] Flor Marie MD XR Foot 3+ Views Right 06/20/2025 Telephone [facility] [address] [place] [address] Vanessa Rojo RN VNA Referral; Home PT Referral 06/19/2025 Telephone [facility] [address] [place] [address] Flor Marie MD chartprep 06/14/2025 Orders Only [facility] WALK-IN CENTER [address] [place] [address] Haroon Finn MD 06/08/2025 Refill [facility] MED & PEDS [address] [place] [address] Jerrica Neal MD 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 06/04/2025 Refill [facility] MEDICINE [address] [place] [address] Tara Webster ANP 05/27/2025 Refill [facility] MEDICINE [address] [place] [address] Flor Marie MD 05/23/2025 Results Follow-Up [address] [address] Flor Marie MD US Thyroid, Albumin, Random Urine W/Creatinine, CBC, Additional followed-up results: 9 from Last 3 Months Immunizations Immunization Administration Dates Next Due Hep B, adult [...] Sign Reading Time Taken Comments Blood Pressure 132/66 06/20/2025 1:05 PM EDT Pulse 63 06/20/2025 1:05 PM EDT Temperature 36.2 C (97.1 F) 06/20/2025 1:05 PM EDT Respiratory Rate 20 06/20/2025 1:05 PM EDT Oxygen Saturation 98% 06/20/2025 1:05 PM EDT Inhaled Oxygen Concentration - - Weight 91.5 kg (201 lb 12.8 oz) 06/20/2025 1:05 PM EDT Height 157.5 cm (5' 2 ) 06/20/2025 1:05 PM EDT Body Mass Index 36.91 06/20/2025 1:05 PM EDT Plan of Treatment Upcoming Encounters Date Type Department Care Team (Late st Contact Info) Description 09/08/2025 2:00 PM EDT Clinical Support [facility] MEDICINE [address] [place] [phone] 10/19/2025 1:15 PM EST Office Visit [address] [phone] Flor Marie MD [address] [place] [phone] Health Maintenance Due Date Last Done Comments Dental Oral Exam 1945 Dental X-Ray: Bitewings 1945 Dental X-Ray: Full Mouth 1945 Diabetes: Foot Exam 02[birth year]03/1955 Dental Prophylaxis 08/27/2023 02/24/2023 COVID-19 Vaccine ( season) 2025 11/03/2023, 03/25/2021 Influenza Vaccine (#1) 2025 , 09/08/2022, 09/08/2022, Additional history exists Diabetes: Hemoglobin A1C 09/14/2025 025, 04/11/2025, 03/08/2025, Additional history exists Depression Monitoring 10/11/2025 04/11/2025, 025 Eye Exam 10/29/2025 10/29/2023, 10/10, 10/29/2023, Additional history exists Alcohol/Substance Use Screening 01/20/2026 01/20/2025 SDOH Screening 04/11/2026 04/11/2025 Lipid Panel 06/14/2026 06/14/2025, 02/09, 11/04/2023, Additional history exists Tobacco Screening 06/20/2026 06/20/2025 DTaP/Tdap/Td Vaccines (3 - Td or Tdap) [...] patient's age to complete this topic Meningococcal B Vaccine Aged Out No l onger eligible based on patient's age to complete [...] Procedure Name Priority Date/Time Associated Diagnosis Comments XR FOOT 3+ VIEWS RIGHT Routine 1:51 PM EDT Right leg pain XR HIP 2 OR 3 VIEWS RIGHT Routine 06/20/2025 1:47 PM EDT Right leg pain XR LUMBAR SPINE 2-3 VIEWS Routine 06/20/2025 1:45 PM EDT Right leg pain BASIC METABOLIC PANEL Routine 06/14/2025 11:01 AM EDT GGT Routine 06/14/2025 11:01 AM EDT Annual physical exam VITAMIN D,25-OH,TOTAL,IA Routine 06/14/2025 11:01 AM EDT Annual physical exam VITAMIN B12/FOLATE, SERUM PANEL Routine 06/14/2025 11:01 AM EDT Annual physical exam TSH W/REFLEX TO FT4 Routine 06/14/2025 1 1:01 AM EDT Annual physical exam LIPID PANEL, STANDARD Routine 06/14/2025 11:01 AM EDT Annual physical exam HEMOGLOBIN A1C Routine 06/14/2025 11:01 AM EDT Annual physical exam COMPREHENSIVE METABOLIC PANEL Routine 06/14/2025 11:01 AM EDT Annual physical exam FERRITIN Routine 06/14/2025 11:01 AM EDT Annual physical exam IRON AND TOTAL IRON BINDING CAPACITY Routine 06/14/2025 11:01 AM EDT Annual physical exam CBC Routine 06/14/2025 11:01 AM EDT Annual physical exam ALBUMIN, RANDOM URINE W/CREATININE Routine 06/14/2025 11:01 AM EDT Annual physical exam US THYROID Routine 05/22/2025 3:42 PM EDT Thyroid nodule PROPHYLAXIS - ADULT Routine 02/24/2023 1 0:00 AM EDT Periodontal disease from Last 3 Months or Most Recently Relevant to Health Maintenance Results * XR Foot 3+ Views Right (06/20/2025 1:51 PM EDT) Anatomical Region Laterality Modality Lower Extremities, Foot Right Radiogra phic Imaging 06/20/2025 1:51 PM EDT Narrative 06/20/2025 3:34 [place] [address] XRay Report Signed Patient: Roseanna Hurt MR#: M [id number] : 1945 Acct:[id number] Age/Sex: 80 / F ADM Date: 06/20/25 [facility]: Flor Medina MD Ordering Physician: Flor Marie MD Date of Service: 06/20/25 Procedure(s): XR foot RT min 3V Accession Number(s): [id number] cc: Flor Marie MD EXAMINATION: XR FOOT, RIGHT CLINICAL INFORMATION: pain COMPARISON: September 06, 2022. TECHNIQUE: AP, lateral, and oblique views of the right foot. FINDINGS: Degenerative changes in the proximal distal interphalangeal joints of the toes. Old traumatic deformity at the base of the proximal phalanx fifth toe. No acute cortical disruption or gross malalignment. Exostosis at the Achilles tendon insertion. Small plantar calcaneus spur. Old traumatic deformities in the distal tibia and fibula. Osteopenia versus osteoporosis. XR/XR foot RT min 3V IMPRESSION: No acute fracture or dislocation. Plantar calcaneal spur. Enthesopathy, Achilles tendon. Electronically signed by: Jose Luis eLvine MD 06/20/2025 03:31 PM EDT Dictated By: Jose Luis Gamboa MD Signed By: <Electronically signed by Jose Luis Rojo MD in OV> 06/20/25 1531 DD/ 1351 TD/TT: 06/20/25 135 Pallet Repairer: Procedure Note Deniseter, Image - 06/20/[address] [address] XRay Report Signed Patient: Roseanna HurtMR#: Gwen [id number] : 4Acct:[id number] Age/Sex: 80 / FADM Date: 06/20/25 Loc: HO.HHX Attending Dr: Flor Medina MD Ordering Physician: Flor Marie MD Date of Service: 06/20/25 Procedure(s): XR foot RT min 3V Accession Number(s): [id number] cc: Flor Marie MD EXAMINATION: XR FOOT, RIGHT CLINICAL INFORMATION: pain COMPARISON: September 06, 2022. TECHNIQUE: AP, lateral, and oblique views of the right foot. FINDINGS: Degenerative changes in the proximal distal interphalangeal joints of the toes. Old traumatic deformity at the base of the proximal phalanx fifth toe. No acute cortical disruption or gross malalignment. Exostosis at the Achilles tendon insertion. Small plantar calcaneus spur. Old traumatic deformities in the distal tibia and fibula. Osteopenia versus osteoporosis. XR/XR foot RT min 3V IMPRESSION: No acute fracture or dislocation. Plantar calcaneal spur. Enthesopathy, Achilles tendon. Electronically signed by: Jose Luis Levine MD 06/20/2025 03:31 PM EDT Dictated By: Jose Luis Gamboa MD Signed By: <Electronically signed by Jose Luis Rojo MDin OV> 06/20/25 153 DD/ 1351 TD/TT: 06/20/25 135 Pallet Repairer: Flor Medina MD IMG XR PROCEDURES Final Result * XR Hip 2 or 3 Views Right (06/20/2025 1:47 PM EDT) Anatomical Region Laterality Modality Lower Extremities, Hip Right Radiograp hic Imaging 06/20/2025 1:47 PM EDT Narrative 06/20/2025 3:32 PM EDT [address] [address] XRay Report Signed Patient: Roseanna Hurt MR#: Gwen [id number] : 1945 Acct:[id number] Age/Sex: 80 / F ADM Date: 06/20/25 Loc: HO.HHCX Attending Dr: Flor Medina MD Ordering Physician: Flor Marie MD Date of Service: 06/20/25 Procedure(s): XR hip RT min 2V Accession Number(s): [id number] cc: Flor Marie MD EXAMINATION: XR HIP, RIGHT CLINICAL INFORMATION: pain COMPARISON: Correlated to CT abdomen pelvis dated December 23, 2024. TECHNIQUE: AP and oblique views of the right hip. FINDINGS: No acute cortical disruption or malalignment. Degenerative changes in the symphysis pubis. Sclerosis and the inferior sacroiliac joint. No lytic or blastic lesions. XR/XR hip RT min 2V IMPRESSION: Moderate to severe degenerative changes, symphysis pubis. No acute fracture or dislocation right hip. Electronically signed by: Jose Luis Levine MD 06/20/2025 03:30 PM EDT Dictated By: Jose Luis Gamboa MD Signed By: <Electronically signed by Jose Luis Rojo MD in OV> 06/20/25 1530 DD/ 1347 TD/TT: 06/20/25 1357 Pallet Repairer: Procedure Note Donotuseinterpreter, Image - 06/20/[address] [address] XRay Report Signed Patient: Roseanna HurtMR#: M [id number] : 1945cct:[id number] Age/Sex: 80 / FADM Date: 06/20/25 Loc: HO.CX Attending Dr: Flor Medina MD Ordering Physician: Flor Marie MD Date of Service: 06/20/25 Procedure(s): XR hip RT min 2V Accession Number(s): [id number] cc: Flor Marie MD EXAMINATION: XR HIP, RIGHT CLINICAL INFORMATION: pain COMPARISON: Correlated to CT abdomen pelvis dated December 23, 2024. TECHNIQUE: AP and oblique views of the right hip. FINDINGS: No acute cortical disruption or malalignment. Degenerative changes in the symphysis pubis. Sclerosis and the inferior sacroiliac joint. No lytic or blastic lesions. XR/XR hip RT min 2V IMPRESSION: Moderate to severe degenerative changes, symphysis pubis. No acute fracture or dislocation right hip. Electronically signed by: Jose Luis Levine MD 06/20/2025 03:30 PM EDT Dictated By: Jose Luis Gamboa MD Signed By: <Electronically signed by Jose Luis Rojo MDin OV> 06/20/25 1530 DD/ 1347 TD/TT: 06/20/25 1357 Pallet Repairer: Flor Medina MD IMG XR PROCEDURES Final Result * XR Lumbar Spine 2-3 Views (06/20/2025 1:45 PM EDT) Anatomical Region Laterality Modality Spine, L-spine Radiographic Arianna ging 06/20/2025 1:45 PM EDT Narrative 06/20/2025 3:31 PM EDT [address] [address] XRay Report Signed Patient: Roseanna Hurt MR#: Gwen [id number] : 1945 Acct:[id number] Age/Sex: 80 / F ADM Date: 06/20/25 Loc: HO.HHCX Attending Dr: Flor Medina MD Ordering Physician: Flor Marie MD Date of Service: 06/20/25 Procedure(s): XR lumbar spine 2-3V Accession Number(s): [id number] cc: Flor Marie MD EXAMINATION: XR LUMBOSACRAL SPINE CLINICAL INFORMATION: pain COMPARISON: Correlated to CT dated August 28, 2023. TECHNIQUE: AP and lateral views FINDINGS: Multilevel syndesmophyte formation and marginal osteophyte formation, endplate sclerosis, throughout the axial skeleton. There is a 20% volume loss of the vertebral body T11. There is a grade 1 anterolisthesis at L4-5. There is facet joint hypertrophy at L4-5 and L5-S1. No lytic or blastic lesions. Vascular calcifications, aorta. Probable renal calculus, left side. XR/XR lumbar spine 2-3V IMPRESSION: Multilevel thoracolumbar spondylosis resulting in grade 1 anterolisthesis L4-5. Electronically signed by: Jose Luis Levine MD 06/20/2025 03:28 PM EDT RP Dictated By: Jose Luis Gamboa MD Signed By: <Electronically signed by Jose Luis Rojo MD in OV> 06/20/25 1528 DD/ 1345 TD/TT: 06/20/25 1357 Pallet Repairer: Procedure Note Donotuseinterpreter, Image - 06/20/[address] [address] XRay Report Signed Patient: Roseanna HurtMR#: M [id number] : 4Acct:[id number] Age/Sex: 80 / FADM Date: 06/20/25 Loc: HO.HHCX Attending Dr: Flor Medina MD Ordering Physician: Flor Marie MD Date of Service: 06/20/25 Procedure(s): XR lumbar spine 2-3V Accession Number(s): [id number] cc: Flor Marie MD EXAMINATION: XR LUMBOSACRAL SPINE CLINICAL INFORMATION: pain COMPARISON: Correlated to CT dated August 28, 2023. TECHNIQUE: AP and lateral views FINDINGS: Multilevel syndesmophyte formation and marginal osteophyte formation, endplate sclerosis, throughout the axial skeleton. There is a 20% volume loss of the vertebral body T11. There is a grade 1 anterolisthesis at L4-5. There is facet joint hypertrophy at L4-5 and L5-S1. No lytic or blastic lesions. Vascular calcifications, aorta. Probable renal calculus, left side. XR/XR lumbar spine 2-3V IMPRESSION: Multilevel thoracolumbar spondylosis resulting in grade 1 anterolisthesis L4-5. Electronically signed by: Jose Luis Levine MD 06/20/2025 03:28 PM EDT RP Dictated By: Jose Luis Gamboa MD Signed By: <Electronically signed by Jose Luis Rojo MDin OV> 06/20/25 1528 DD/ 1345 TD/TT: 06/20/25 1357 Pallet Repairer: Flor Medina MD IMG XR PROCEDURES Final Result * Vitamin D, 25-Hydroxy, Total, Immunoassay (06/14/2025 11:01 AM EDT) Vitamin D 25-OH Total 85.8 >30 ng/mL [facility] Comment: Health Based Reference Values*< 20 ng/mL Lrefkgdbv15-08 ng/mL Insufficient> 30 ng/mL Sufficient*Joana ESCOBAR. N Engl J Med. 2007;357:266-280There is no well-established upper level of normal vitamin Dlevels. Some laboratories use 50 ng/mL as an upper limit ofnormal. However, toxicity is patient-dependent and may occurat any level. Careful correlation with the patient'spresentation is necessary and, if there is concern forvitamin D toxicity, treatment should be consideredirrespective of the serum level.Care must be taken in interpreting Vitamin D results fromdifferent laboratories and methodologies. Published datademonstrated that results from patients undergoinghemodialysis may show a negative bias when tested withvarious automated 25-OH vitamin D assays when compared toLC-MS/MS.When testing samples from patients whose predominant form ofVitamin D is Vitamin D2, such as patients receiving VitaminD2 supplementation, results that are subtherapeutic shouldbe confirmed with another method such as LC-MS/MS. Blood Venous blood specimen / Unknown 06/14/2025 11:01 AM EDT 06/14/2025 1:33 PM EDT Flor Medina MD LAB BLOOD ORDERAB LES Final Result Performing Organization Address City/[facility]/ZIP Co de Phone Number [facility] [address] [place] [phone] * Vitamin B12 (Cobalamin) and Folate Panel, Serum (06/14/2025 11:01 AM EDT) Vitamin B12 441 200 - 900 pg/mL [facility] Comment:NORMAL 200-900 PG/ML INDETERMINATE 160-199 PG/ML DEFICIENT < 160 PG/ML Folate 8.3 > or = 4.0 ng/mL [facility] Comment:Reference Values:> o r = 4.0 ng/mL< 4.0 ng/mL suggests folate deficiency Methotrexate, aminopterin and folinic acid(leucovorin) are chemotherapeutic agents whose molecularstructures are similar to folate; therefore, the Architectfolate assay cannot be used for patients using these drugs. Blood 06/14/2025 11:0 1 AM EDT 06/14/2025 1:33 PM EDT us Flor Medina MD LAB BLOOD ORDERAB LES Final Result Performing Organization Address City/[facility]/ZIP Co de Phone Number [facility] [address] [place] [phone] * TSH with Reflex to Free T4 (06/14/2025 11:01 AM EDT) TSH reflex Free T4 1.54 0.32 - 4.0 uIU/mL [facility] Blood 06/14/2025 11:0 1 AM EDT 06/14/2025 1:33 PM EDT Flor Medina MD LAB BLOOD ORDERAB LES Final Result Performing Organization Address [facility]/ZIP Co de Phone Number [facility] [address] [place] [phone] * (ABNORMAL) Albumin, Random Urine W/Creatinine (06/14/2025 11:01 AM EDT) Creatinine, Urine 135.87 mg/dL [facility] Microalbumin Urine 123.0 mg/L [facility] Microalbum Creatinine Ratio Ur 90.5(H) <30 ug/mg cr [facility] Comment:Albumin/Creatinine R atio Reference Ranges: Normal: < 30 ug/mg creatinine Microalbuminuria: 30 - 300 ug/mg creatinineClinical Albuminuria: > 300 ug/mg creatinine Urine (Urine, Random) 06/14/2025 11:01 AM EDT 06/14/2025 1:06 PM EDT us Flor Medina MD LAB URINE ORDERAB LES Final Result Performing Organization Address [facility] Co de Phone Number [facility] [address] [place] [address] [phone] * Iron And Total Iron Binding Capacity (06/14/2025 11:01 AM EDT) Iron 59 30 - 160 mcg/dL [facility] Total Iron Binding Capacity 247 228 - 428 mcg/dL [facility] Percent Iron Saturation 24 15 - 50 % [facility] Unsaturated Iron Binding 188 ug/dL [facility] Blood Venous blood specimen / Unknown 06/14/2025 11:01 AM EDT 06/14/2025 1:33 PM EDT us Flor Medina MD LAB BLOOD ORDERAB LES Final Result Performing Organization Address City/[facility]/ZIP Co de Phone Number [facility] [address] [place] [phone] * (ABNORMAL) CBC (06/14/2025 11:01 AM EDT) White Blood Count 5.4 4.8 - 10.8 X10*3/uL [facility] Red Blood Count 3.87(L) 4.20 - 5.50 X10*6/uL [facility] Hemoglobin 10.9(L) 12.0 - 16.0 g/dl [facility] Hematocrit 34.0(L) 37.0 - 47.0 % [facility] Mean Corpuscular Volume 87.9 80.0 - 98.0 fL [facility] Mean Corpuscular Hemoglobin 28.2 27.0 - 33.0 pg [facility] Mean Corpuscular HGB Conc 32.1 31.0 - 35.0 g/dl [facility] Red Cell Distribution Width 13.2 11.0 - 16.0 % [facility] Platelet Count 253 160 - 400 X10*3/uL [facility] Mean Platelet Volume 10.7 9.4 - 12.3 fL [facility] NRBC Pct Auto 0.0 0.0 - 0.2 /100WBC [facility] NRBC Abs Auto 0.000 0.0 - 0.012 X10*3/uL [facility] Blood Venous blood specimen / Unknown 06/14/2025 11:01 AM EDT 06/14/2025 1:33 PM EDT us Flor Medina MD LAB BLOOD ORDERAB LES Final Result [facility] [address] [place], [place] [phone] * (ABNORMAL) Hemoglobin A1c (06/14/2025 11:01 AM EDT) Hemoglobin A1c 7.8(H) <6.0 % [facility] Comment:Hemoglobin A1C Refer ence Range Adults: 4.8 - 6.0 % Non diabetic: < 6.0 % Goal: < 7.0 %Additional Action Suggested: > 8.0 %Note: Hemoglobin A1c results are invalid for patients with abnormal amounts of HbF. Blood transfusions may impact the HbA1c concentration in the patient sample. Estimated Average Glucose 177 mg/dL [facility] Comment:eAG = Estimated ave rage glucose which is %A1C expressed asaverage glucose, using the formula of the X3R-CcxuqnuFeqprjf Glucose study (ADAG), Diabetes Care, Vol.31,#8,2007 Blood Venous blood specimen / Unknown 06/14/2025 11:01 AM EDT 06/14/2025 1:33 PM EDT Flor Medina MD LAB BLOOD ORDERAB LES Final Result Performing Organization Address [facility] Co de Phone Number [facility] [address] [place] [phone] * Gamma Glutamyl Transferase (GGT) (06/14/2025 11:01 AM EDT) Gamma Glutamyl Transpeptidase 27 7 - 33 U/L [facility] Blood Venous blood specimen / Unknown 06/14/2025 11:01 AM EDT 06/14/2025 1:33 PM EDT Flor Medina MD LAB BLOOD ORDERAB LES Final Result Performing Organization Address [facility] Co de Phone Number [facility] [address] [place] [address] [phone] * Ferritin (06/14/2025 11:01 AM EDT) Ferritin 138 10 - 250 ng/mL [facility] Blood Venous blood specimen / Unknown 06/14/2025 11:01 AM EDT 06/14/2025 1:33 PM EDT Flor Medina MD LAB BLOOD ORDERAB LES Final Result Performing Organization Address [facility] Co de Phone Number [facility] [address] [place] [address] [phone] * Lipid Panel, Standard (06/14/2025 11:01 AM EDT) Triglycerides 146 <150 mg/dL [facility] Comment:Desirable Triglyceri de: less than 150 mg/dLBorderline High Triglyceride 150-199 mg/dLHigh Triglyceride: 200-499 mg/dLVery High Triglyceride: greater than or equal to 5OO mg/dL Cholesterol 170 <200 mg/dL [facility] Comment:Desirable Cholestero l: less than 200 mg/dLBorderline High Cholesterol: 200-239 mg/dLHigh Cholesterol: greater than 239 mg/dL LDL Cholesterol Calculated 93 <100 mg/dL [facility] Comment:Desirable LDL: less than 100 mg/dLNear Optimal/Above Optimal LDL: 110- 129 mg/dLBorderline High LDL: 130-159 mg/dLHigh LDL: 160-189 mg/dLVery High LDL: greater than or equal to 190 mg/dL HDL Cholesterol 48 >40 mg/dL [facility] Comment:Desirable HDL: great er than 40 mg/dL Note: This HDL assay may give artificially low results in patients with liver disease. Blood Venous blood specimen / Unknown 06/14/2025 11:01 AM EDT 06/14/2025 1:33 PM EDT us Flor Medina MD LAB BLOOD ORDERAB LES Final Result [facility] [address] [place] [phone] * (ABNORMAL) Comprehensive Metabolic Panel (06/14/2025 11:01 AM EDT) Sodium 143 135 - 145 mmol/L [facility] Potassium 3.7 3.3 - 5.1 mmol/L [facility] Chloride 103 96 - 108 mmol/L [facility] Carbon Dioxide 31(H) 22 - 29 mmol/L [facility] Anion Gap 13 12 - 20 [facility] Urea Nitrogen (BUN) 28(H) 9 - 16 mg/dL [facility] Creatinine, Serum 1.36 0.5 - 1.4 mg/dL [facility] Estimated Glomerular Filt Rate 37 [facility] Comment:Chronic Kidney Disea se: Estimated GFR < 60 mL/min/1.81h4Rvojim Kidney Disease: Estimated GFR < 15 mL/min/1.73m2 Glucose 155(H) 60 - 115 mg/dL [facility] Calcium 9.4 8.4 - 10.2 mg/dL [facility] Bilirubin, Total 0.5 0.0 - 1.0 mg/dL [facility] Aspartate Amino Transferase 21 5 - 31 U/L [facility] Alanine Aminotransferase 13 0 - 31 U/L [facility] Total Protein 6.8 6.5 - 8.0 g/dL [facility] Albumin Level 4.1 3.5 - 5.0 g/dL [facility] Alkaline Phosphatase 92 39 - 117 U/L [facility] Blood Venous blood specimen / Unknown 06/14/2025 11:01 AM EDT 06/14/2025 1:33 PM EDT us Flor Medina MD LAB BLOOD ORDERAB LES Final Result [facility] [address] [place] [address] [phone] * (ABNORMAL) Basic Metabolic Panel (06/14/2025 11:01 AM EDT) Sodium 143 135 - 145 mmol/L [facility] Potassium 3.7 3.3 - 5.1 mmol/L [facility] Chloride 102 96 - 108 mmol/L [facility] Carbon Dioxide 31(H) 22 - 29 mmol/L [facility] Anion Gap 14 12 - 20 [facility] Urea Nitrogen (BUN) 28(H) 9 - 16 mg/dL [facility] Creatinine, Serum 1.34 0.5 - 1.4 mg/dL [facility] Estimated Glomerular Filt Rate 38 [facility] Comment:Chronic Kidney Disea se: Estimated GFR < 60 mL/min/1.37h7Mwdhbu Kidney Disease: Estimated GFR < 15 mL/min/1.73m2 Glucose 155(H) 60 - 115 mg/dL [facility] Calcium 9.4 8.4 - 10.2 mg/dL [facility] 06/14/2025 11:0 1 AM EDT 06/14/2025 1:33 PM EDT us Haroon Finn MD LAB BLOOD ORDERABLES Final Resul t Performing Organization Address City/State/[facility] Co de Phone Number [facility] [address] [place] [address] [phone] * US Thyroid (05/22/2025 3:42 PM EDT) Anatomical Region Laterality Modality Head, Neck Ultrasound 05/22/2025 3:42 PM EDT Narrative 05/23/2025 7:25 AM EDT [address] [address] Ultrasound Report Signed Patient: Roseanna Hurt MR#: [id number] [id number] : 1945 Acct:[id number] Age/Sex: 80 / F ADM Date: 05/22/25 Loc: .US Attending Dr: Flor Medina MD Ordering Physician: Flor Marie MD Date of Service: 05/22/25 Procedure(s): US thyroid Accession Number(s): [id number] cc: Flor Marie MD EXAMINATION: US THYROID CLINICAL INFORMATION: 1.4 cm thyroid nodule identified on a recent CT chest. COMPARISON: None available. TECHNIQUE: Linear transducer grayscale and color Doppler examination with attention to the region of the thyroid. FINDINGS: SIZE: Measurements of the thyroid lobes and nodules are given in sagittal, anteroposterior and transverse dimensions respectively. Right Thyroid Lobe: 4.4 x 3.6 x 2.0 cm, volume 16.6 mL. Parenchyma: The gland echotexture is normal. Thyroid vascularity is normal. Left Thyroid Lobe: 3.6 x 1. x 1.3 cm, volume mL. Parenchyma: The gland echotexture is normal. Thyroid vascularity is normal. Isthmus: 0.3 cm in maximum AP dimension. Estimated total number of nodules greater than or equal to 1 cm: 2. Irrigation District Manager nodules are described as follows: 1. Location: Right] lobe, midportion. Size: 2.0 x 1.4 x 2.0 cm, volume 2.9 mL. Nodule characteristics: Composition: Solid (2). Echogenicity: Hyperechoic (1). Shape: Not taller than wide (0). Margins: Smooth (0). Echogenic Foci: None (0). ACR TI-RADS total points: 3 ACR TI-RADS category: 3 2. Location: Right lobe, lower pole.. Size: 2.3 x 1.7 x 2.0 cm, volume 4.0 mL. Nodule characteristics: Composition: Cystic(0). Echogenicity: Anechoic (0). Shape: Not taller than wide (0). Margins: Smooth (0). Echogenic Foci: None (0). ACR TI-RADS total points: 0 ACR TI-RADS category: 1 3. Location: Left lobe, midportion. Size: 0.7 x 0.3 x 0.6 cm, volume 0.05 mL. Nodule characteristics: Composition: Solid (2). Echogenicity: Hyperechoic (1). Shape: Not taller than wide (0). Margins: Ill defined Echogenic Foci: Macrocalcifications (1). ACR TI-RADS total points: 4 ACR TI-RADS category: 4 US/US thyroid IMPRESSION: ACR TI-RADS category: 3 and 4 ACR TI-RADS RECOMMENDATION REFERENCE: Ultrasound-guided fine-needle aspiration, followup ultrasound, no further follow up. * TR1 (0 point) and TR2 (2 points): No FNA or follow up. * TR3 (3 points): FNA if more than or equal to 2.5 cm in maximum dimension, followup ultrasound in 1, 3 and 5 years if 1.5 to 2.4 cm in maximum dimension. * TR4 (4-6 points): FNA if more than or equal to 1.5 cm in maximum dimension, followup ultrasound in 1, 2, 3 and 5 years if 1 to 1.4 cm in maximum dimension. * TR5 (more than or equal to 7 points): FNA if more than or equal to 1 cm in maximum dimension, followup ultrasound every year for 5 years if 0.5 to 0.9 cm in maximum dimension. * TR3, TR4 or TR5 nodules that are below the size threshold for followup receive no follow up. Electronically signed by: Jose Luis Levine MD 05/23/2025 07:23 AM EDT Dictated By: Jose Luis Gamboa MD Signed By: <Electronically signed by Jose Luis Rojo MD in OV> 05/23/25 0723 DD/ 1542 TD/TT: 05/22/25 1601 Pallet Repairer: Procedure Note Donotuseinterpreter, Image - 05/23/2025 [place] [id number] Ultrasound Report Signed Patient: Roseanna Hurt#: [id number] : 4Acct:[id number] Age/Sex: 80 / FADM Date: 05/22/25 Loc: HO.US Attending Dr: Flor Medina MD Ordering Physician: Flor Marie MD Date of Service: 05/22/25 Procedure(s): US thyroid Accession Number(s): [id number] cc: Flor Marie MD EXAMINATION: US THYROID CLINICAL INFORMATION: 1.4 cm thyroid nodule identified on a recent CT chest. COMPARISON: None available. TECHNIQUE: Linear transducer grayscale and color Doppler examination with attention to the region of the thyroid. FINDINGS: SIZE: Measurements of the thyroid lobes and nodules are given in sagittal, anteroposterior and transverse dimensions respectively. Right Thyroid Lobe: 4.4 x 3.6 x 2.0 cm, volume 16.6 mL. Parenchyma: The gland echotexture is normal. Thyroid vascularity is normal. Left Thyroid Lobe: 3.6 x 1. x 1.3 cm, volume mL. Parenchyma: The gland echotexture is normal. Thyroid vascularity is normal. Isthmus: 0.3 cm in maximum AP dimension. Estimated total number of nodules greater than or equal to 1 cm: 2. Irrigation District Manager nodules are described as follows: 1. Location: Right] lobe, midportion. Size: 2.0 x 1.4 x 2.0 cm, volume 2.9 mL. Nodule characteristics: Composition: Solid (2). Echogenicity: Hyperechoic (1). Shape: Not taller than wide (0). Margins: Smooth (0). Echogenic Foci: None (0). ACR TI-RADS total points: 3 ACR TI-RADS category: 3 2. Location: Right lobe, lower pole.. Size: 2.3 x 1.7 x 2.0 cm, volume 4.0 mL. Nodule characteristics: Composition: Cystic(0). Echogenicity: Anechoic (0). Shape: Not taller than wide (0). Margins: Smooth (0). Echogenic Foci: None (0). ACR TI-RADS total points: 0 ACR TI-RADS category: 1 3. Location: Left lobe, midportion. Size: 0.7 x 0.3 x 0.6 cm, volume 0.05 mL. Nodule characteristics: Composition: Solid (2). Echogenicity: Hyperechoic (1). Shape: Not taller than wide (0). Margins: Ill defined Echogenic Foci: Macrocalcifications (1). ACR TI-RADS total points: 4 ACR TI-RADS category: 4 US/US thyroid IMPRESSION: ACR TI-RADS category: 3 and 4 ACR TI-RADS RECOMMENDATION REFERENCE: Ultrasound-guided fine-needle aspiration, followup ultrasound, no further follow up. * TR1 (0 point) and TR2 (2 points): No FNA or follow up. * TR3 (3 points): FNA if more than or equal to 2.5 cm in maximum dimension, followup ultrasound in 1, 3 and 5 years if 1.5 to 2.4 cm in maximum dimension. * TR4 (4-6 points): FNA if more than or equal to 1.5 cm in maximum dimension, followup ultrasound in 1, 2, 3 and 5 years if 1 to 1.4 cm in maximum dimension. * TR5 (more than or equal to 7 points): FNA if more than or equal to 1 cm in maximum dimension, followup ultrasound every year for 5 years if 0.5 to 0.9 cm in maximum dimension. * TR3, TR4 or TR5 nodules that are below the size threshold for followup receive no follow up. Electronically signed by: Jose Luis Levine MD 05/23/2025 07:23 AM EDT Dictated By: Jose Luis Gamboa MD Signed By: <Electronically signed by Jose Luis Rojo MDin OV> 05/23/25 0723 DD/ 1542 TD/TT: 05/22/25 1601 Pallet Repairer: us Flor Medina MD [facility] Final Result from Last 3 Months Insurance [facility]TE DENT[facility] - [facility] Advance Directives Documents on File Type Date Recorded Patient Irrigation District Manager Expl anation HealthCare Proxy 04/11/2025 Care Teams Stock Pitcher Relationship Specialty Start Date End Date Flor Marie MD [address] [place] [phone] PCP - General Internal Medicine 05/18/23 [facility] 06/29/25
--- OUTSIDE RECORDS SUMMARY | 2025-08-09 14:53 | XMS_ITS | Encounter Summary ---
Author Organization [employer] Address [address] [place] [address] Care Team Providers Care Mortgage Processor Name Role Phone Carolyn Ceballos IT DESKTOP SUPPORT TECHNICIAN Primary Care Provider Flor Tobar MD Primary Care Pro vider Reason for Visit * Reason Onset Date Comments fyi 01/16/2023 Encounter Details Date Type Department Care Team (Late st Contact Info) Description 01/16/2023 Telephone [facility] [address] [place] [phone] Carolyn Ceballos FNP fyi Social History Tobacco Use Types Packs/Day [...] * Telephone Encounter - Konrad Bellamy - 01/16/2023 9:58 AM EST Tc from [facility]. Stating pt was been refusing physical therapy or the whole week and stated will not want to be seen for next week as well. Pt also has been refusing nursing treatment. Please contact [facility] at [phone] documented in this encounter Plan of Treatment Upcoming Encounters Date Type Department Care Team (Late st Contact Info) Description 09/08/2025 2:00 PM EDT Clinical Support [address] [address] 10/19/2025 1:15 PM EST Office Visit [address] [address] Flor Marie MD [address] [place] [phone] documented as of this encounter Visit Diagnoses Not on filedocumented in this encounter Care Teams Mortgage Processor Relationship Specialty Start Date End Date Carolyn Ceballos FNP PCP - General Family Medicine 07/02/22 05/17/23 Flor Marie MD [address] [place] [phone] PCP - General Internal Medicine [facility]18[facility] [employer] 06/29/25 documented as of this encounter
--- OUTSIDE RECORDS SUMMARY | 2025-08-09 14:53 | XMS_ITS | Encounter Summary ---
Author Organization [employer] Address [address] [place] [address] Care Team Providers Care Manager Wholesale Name Role Phone Carolyn Ceballos ROUNDHOUSE SUPERVISOR Primary Care Provider Flor Tobar MD Primary Care Pro vider Reason for Visit * Reason Onset Date Comments care of plan 12/31/2022 Encounter Details Date Type Department Care Team (Late st Contact Info) Description 12/31/2022 Telephone [facility] [address] [place] [phone] Carolyn Ceballos FNP care of plan Social History Tobacco Use [...] with plan. * Telephone Encounter - Konrad Bellamy - 12/31/2022 10:59 AM EST Tc from marilee with [facility] requesting care of plan. Please contact marilee at [phone] documented in this encounter Plan of Treatment Upcoming Encounters Date Type Department Care Team ([facility] st Contact Info) Description 09/08/2025 2:00 PM EDT Clinical Support [address] [address] 10/19/2025 1:15 PM EST Office Visit [address] [address] Flor Marie MD [address] [place] [address] documented as of this encounter Visit Diagnoses Not on filedocumented in this encounter Care Teams Manager Wholesale Relationship Specialty Start Date End Date Carolyn Ceballos FNP PCP - General Family Medicine 07/02/22 05/17/23 Flor Marie MD [address] [place] [phone] PCP - General Internal Medicine 05/18/23 [facility] 01/17/25 07/06/25 [facility] 06/29/25 documented as of this encounter
--- OUTSIDE RECORDS SUMMARY | 2025-08-09 14:53 | XMS_ITS | Encounter Summary ---
Author Organization [employer] Address [address] [facility] [address] [place] [address] Care Team Providers Care Rn Pediatric Icu Name Role Phone Carolyn Ceballos OFFICE CASHIER Primary Care Provider Flor Tobar MD Primary Care Pro vider Reason for Visit * Reason Onset Date Comments FYI 01/23/2023 Encounter Details Date Type Department Care Team (Late st Contact Info) Description 01/23/2023 Telephone [facility] [address] [place] [phone] Carolyn Ceballos FNP FYI Social History Tobacco Use Types Packs/Day [...] * Telephone Encounter - Aleksandr Lopez - 01/23/2023 9:08 AM EDT Tc from Mati with [facility] advising that pt has refuse all visits this week 01/19-01/23/2023. Mati advise if pt can't been seen in within next week, pt will be discharged from Physical therapy. If any more concerns please contact Mati at [phone] documented in this encounter Plan of Treatment Upcoming Encounters Date Type Department Care Team (Late st Contact Info) Description 09/08/2025 2:00 PM EDT Clinical Support [address] [address] 10/19/2025 1:15 PM EST Office Visit [address] [address] Flor Marie MD [address] [place] [phone] documented as of this encounter Visit Diagnoses Not on filedocumented in this encounter Care Teams Rn Pediatric Icu Relationship Specialty Start Date End Date Carolyn Ceballos FNP PCP - General Family Medicine 07/02/22 05/17/23 Flor Marie MD [address] [place] [phone] PCP - General Internal Medicine 05/18/23 [facility] 01/17/25 07/06/25 [facility] 06/[facility]/25 documented as of this encounter
--- OUTSIDE RECORDS SUMMARY | 2025-08-09 14:53 | XMS_ITS | Encounter Summary ---
Author Organization [employer] Address [address] [place] [address] [address] [place] [address] Care Team Providers Care Bowling Ball Grader And Marker Name Role Phone Flor Marie MD Primary Care Pro vider Reason for Visit * Reason Comments Med Refill Encounter Details Date Type Department Care Team ([facility] st Contact Info) Description 12/21/[address] [facility] [address] [place] [address] Flor Marie MD [address] [place] [address] Social History Tobacco Use Types Packs/Day Years [...] Description 09/08/2025 2:00 PM EDT Clinical Support [facility] [address] [place] [phone] 10/19/2025 1:15 PM EST Office Visit [facility] [address] [place] [phone] Flor Marie MD [address] [place] [phone] documented as of this encounter Visit Diagnoses Not on filedocumented in this encounter Additional Health Concerns Assessment Noted Time PHQ-9 Depression Total Score: 19 023 2:14 PM EDT documented as of this encounter Care Teams Bowling Ball Grader And Marker Relationship Specialty Start Date End Date Flor Marie MD [address] [place] [phone] PCP - General Internal Medicine 05/18/23 [facility] 01/17/25 07/06/25 [facility] 06/29/25 documented as of this encounter
--- OUTSIDE RECORDS SUMMARY | 2025-08-09 14:53 | XMS_ITS | Encounter Summary ---
Author Organization [employer] Address [address] [place] [address] 7 [place] [address] Care Team Providers Care Virtualization Architect Name Role Phone Jorge Ceballosana Culver ASSOCIATE MANAGER Primary Care Provider Flor Tobar MD Primary Care Pro vider Encounter Details Date Type Department Care Team (Late st Contact Info) Description 11/25/2022 Orders Only [facility] [address] [place] [address] [phone] Allegra Saravia LPN Social History Tobacco Use [...] Description 09/08/2025 2:00 PM EDT Clinical Support [address] [phone] 10/19/2025 1:15 PM EST Office Visit [address] [phone] Flor Marie MD [address] [place] [address] [phone] documented as of this encounter Procedures Procedure [...] HIGH SENSITIVITY 112.3(HH) <3.5 - 17.0 ng/L [facility] Comment:Critical value for t est(s): TROP Results called to delroy back by: ADRIANO Person calling: DARNELL Date:12/25/22 Time: 470The Sandhu high sensitivity Troponin-I results should beused in conjunction with other diagnostic information suchas ECG, clinical observations and information, and patientsymptoms to aid in the diagnosis of [place]. 12/25/2022 4:57 PM EST 12/25/2022 5:00 PM EST [facility] External Provider LAB BLO OD ORDERABLES Final Result Performing Organization Address City/[facility]/ZIP Co de Phone Number [facility] [address] [place] [address] [phone] * (ABNORMAL) Urinalysis, Complete, with Reflex to Culture (12/25/2022 3:56 PM EST) Color Urine RED [facility] Appearance Urine Cloudy [facility] PH 6.0 5.0 - 9.0 [facility] Glucose Urine UA Negative Negative mg/dL [facility] Urine Blood Large (3+)(A) Negative [facility] Specific [place] - Urine 1.010 1.005 - 1.025 [facility] Urine Protein 30 (1+)(A) Neg-Trace mg/dL [facility] Urine Ketones Negative Negative mg/dL [facility] Nitrite Urine Negative Negative [facility] Leukocyte Esterase Urine Trace(A) Negative [facility] RBC Urine >20(A) 0 - 2 /HPF [facility] Urine WBC 0-5 0 - 5 /HPF [facility] Urine Squamous Epithelial Cell 0-2 0 - 2 /HPF [facility] Urine Bacteria None Seen None Seen [facility] Hyaline Casts, Urine 0-2 0 - 2 /LPF [facility] 12/25/2022 3:56 PM EST 12/25/2022 4:00 PM EST Narrative [facility] - 12/25/2022 4:42 PM EST Urine, Clean Catch [facility] External Provider LAB URI NE ORDERABLES Final Result Performing Organization Address [facility]/ZIP Co de Phone Number [facility] [address] [place] [address] [phone] * (ABNORMAL) HIGH SENSITIVITY TROPONIN I (12/25/2022 1:59 PM EST) TROPONIN I HIGH SENSITIVITY 100.6(HH) <3.5 - 17.0 ng/L [facility] Comment:Critical value for H S-TnI: Results called to and read backby: MONICO Person calling: ANTHONY Date: 12/25/22 Time: 1442The Sandhu high sensitivity Troponin-I results should beused in conjunction with other diagnostic information suchas ECG, clinical observations and information, and patientsymptoms to aid in the diagnosis of [place]. 12/25/2022 1:59 PM EST 12/25/2022 2:02 PM EST [facility] External Provider LAB BLO OD ORDERABLES Final Result Performing Organization Address [facility] Phone Number [facility] [address] [place] [phone] * (ABNORMAL) B Type Natriuretic Peptide (BNP) (12/25/2022 1:59 PM EST) [facility] B Type Natriuretic Peptide 867(H) <100 pg/mL [facility] Comment:For those patients w ho are being treated with Natrecor(nesiritide, recombinant BNP), BNP testing should beperformed at least two hours post treatment in order toensure that only endogenous levels of BNP are detected. 12/25/2022 1:59 PM EST 12/25/2022 2:02 PM EST [facility] External Provider LAB BLO OD ORDERABLES Final Result Performing Organization Address [facility] Co de Phone Number [facility] [address] [place] [phone] * Lipase (12/25/2022 1:59 PM EST) Pathologist [facility] Lipase 24 8 - 78 U/L [facility] 12/25/2022 1:59 PM EST 12/25/2022 2:02 PM EST [facility] External Provider LAB BLO OD ORDERABLES Final Result Performing Organization Address City/[facility]/ZIP Co de Phone Number [facility] [address] [place] [address] [phone] * Magnesium (12/25/2022 1:59 PM EST) Magnesium 2.0 1.6 - 2.6 mg/dL [facility] 12/25/2022 1:59 PM EST 12/25/2022 2:02 PM EST [facility] External Provider LAB BLO OD ORDERABLES Final Result Performing Organization Address [facility] Co de Phone Number [facility] [address] [place] [address] [phone] * (ABNORMAL) Basic Metabolic Panel (12/25/2022 1:59 PM EST) Sodium 140 135 - 145 mmol/L [facility] Potassium 4.1 3.3 - 5.1 mmol/L [facility] Chloride 105 96 - 108 mmol/L [facility] Carbon Dioxide 24 22 - 29 mmol/L [facility] Anion Gap 15 12 - 20 [facility] Urea Nitrogen (BUN) 19(H) 9 - 16 mg/dL [facility] Creatinine, Serum 0.90 0.5 - 1.4 mg/dL [facility] Creatinine Clr Calc Pharmacy 53.9 [facility] Comment:Provided height and weight: 157.48 cm,90.718 kg.eGFR (calculated from the MDRD study equation) and eCrCl(calculated from the Cockcroft-Gault equation) are based ondifferent parameters and may not yield comparable results.If eCrCl result is absurd, please check patient'sheight/weight. Estimated Glomerular Filt Rate >60 [facility] Comment:NOTE: For -Am erican individuals, multiply the result by 1.210.Chronic Kidney Disease: Estimated GFR < 60 mL/min/1.54c2Oklfeg Kidney Disease: Estimated GFR < 15 mL/min/1.73m2 Glucose 255(H) 60 - 115 mg/dL [facility] Calcium 9.0 8.4 - 10.2 mg/dL [facility] 12/25/2022 1:59 PM EST 12/25/2022 2:02 PM EST [facility] External Provider LAB BLO OD ORDERABLES Final Result Performing Organization Address [facility] de Phone Number [facility] [address] [place] [phone] * (ABNORMAL) Hepatic Function Panel (12/25/2022 1:59 PM EST) Bilirubin, Total 0.5 0.0 - 1.0 mg/dL [facility] Bilirubin, Direct 0.2 0.0 - 0.5 mg/dL [facility] Aspartate Amino Transferase 37(H) 5 - 31 U/L [facility] Alanine Aminotransferase 28 0 - 31 U/L [facility] Total Protein 7.2 6.5 - 8.0 g/dL [facility] Albumin Level 4.2 3.5 - 5.0 g/dL [facility] Alkaline Phosphatase 93 39 - 117 U/L [facility] 12/25/2022 1:59 PM EST 12/25/2022 2:02 PM EST [facility] External Provider LAB BLO OD ORDERABLES Final Result Performing Organization Address City/[facility] Co de Phone Number [facility] [address] [place] [phone] * Prothrombin Time-INR (12/25/2022 1:59 PM EST) Prothrombin Time 13.0 10.0 - 13.1 SEC [facility] INTERNATIONAL NORM RATIO 1.1 0.9 - 1.1 [facility] Comment:INTERNATIONAL NORMAL IZED RATIO (INR) REFERENCE [...] PM EST 12/25/2022 2:02 PM EST us [facility] External Provider LAB BLO OD ORDERABLES Final Result [facility] [address] [place] [phone] [phone] * (ABNORMAL) CBC auto differential (12/25/2022 1:59 PM EST) White Blood Count 6.0 4.8 - 10.8 X10*3/uL [facility] Red Blood Count 4.00(L) 4.20 - 5.50 X10*6/uL [facility] Hemoglobin 11.1(L) 12.0 - 16.0 g/dl [facility] Hematocrit 34.9(L) 37.0 - 47.0 % [facility] Mean Corpuscular Volume 87.3 80.0 - 98.0 fL [facility] Mean Corpuscular Hemoglobin 27.8 27.0 - 33.0 pg [facility] Mean Corpuscular HGB Conc 31.8 31.0 - 35.0 g/dl [facility] Red Cell Distribution Width 12.7 11.0 - 16.0 % [facility] Platelet Count 258 160 - 400 X10*3/uL [facility] Mean Platelet Volume 9.9 9.4 - 12.3 fL [facility] Neutrophils Percent Auto 84.1(H) 45 - 73 % [facility] Imm Gran Pct Auto 0.7(H) 0.0 - 0.4 % [facility] Lymphocytes Percent Auto 6.6(L) 20 - 40 % [facility] Monocytes Percent Auto 8.1 2 - 11 % [facility] Eosinophils Percent Auto 0.2 0 - 4 % [facility] Basophils Percent Auto 0.3 0 - 2 % [facility] NRBC Pct Auto 0.0 0.0 - 0.2 /100WBC [facility] Neutrophils Absolute Auto 5.0 2.0 - 8.3 x10*3/uL [facility] Imm Gran Abs Auto 0.04(H) 0.00 - 0.03 X10*3/uL [facility] Lymphocytes Absolute Auto 0.4(L) 1.2 - 4.9 X10*3/uL [facility] Monocytes Absolute Auto 0.5 0.1 - 1.2 X10*3/uL [facility] Eosinophils Absolute Auto 0.0 0.0 - 0.4 X10*3/uL [facility] Basophils Absolute Auto 0.0 0.0 - 0.2 X10*3/uL [facility] NRBC Abs Auto 0.000 0.0 - 0.012 X10*3/uL [facility] 12/25/2022 1:59 PM EST 12/25/2022 2:02 PM EST us [facility] External Provider LAB BLO OD ORDERABLES Final Result Performing Organization Address City/State/[facility] Co de Phone Number [facility] [address] [place] [phone] * Influenza A B2 ID NOW (Sandhu) (12/25/2022 1:33 PM EST) IDNOW SERIAL# [id number] [facility] Influenza A Negative Negative [facility] Influenza B2 Negative Negative [facility] Influenza A B2 Note See Note [facility] Comment:The Sandhu ID NOW In fluenza [...] 1:33 PM EST 12/25/2022 1:37 PM EST us [facility] Exter nal Provider LAB MICROBIOLOGY - GENERAL ORDERABLES Final Result [facility] [address] [place] [phone] [phone] * (ABNORMAL) COVID-19 ID NOW (SANDHU) (12/25/2022 1:33 PM EST) IDNOW SERIAL# [id number] [facility] COVID-19 TEST Positive (A) Negative [facility] COVID-19 NOTE See Note [facility] Comment: Results are for the identification of SARS-CoV2 RNA. TheSARS-CoV2 RNA is generally detectable in respiratory samplesduring the acute phase of infection. Positive results areindicative of the presence of SARS-CoV-2 RNA; clinicalcorrelation with patient history and other diagnosticinformation is necessary to determine patient infectionstatus. Positive results do not rule out bacterial infectionor co- infection with other viruses.Testing facilities within the [facility] and [facility] are required to report all positive results [...] 1:33 PM EST 12/25/2022 1:37 PM EST us [facility] Exter nal Provider LAB MOLECULAR DIAGNOSTICS ORDERABLES Final Result [facility] [address] [place] [address] [phone] documented in this encounter Visit Diagnoses Not on filedocumented in this encounter Care Teams Virtualization Architect Relationship Specialty Start Date End Date Carolyn Ceballos FNP PCP - General Family Medicine 07/02/22 05/17/23 Flor Marie MD [address] [place] [address] PCP - General Internal Medicine 05/18/23 [facility] 01/17/25 07/06/25 [employer] 06/29/25 documented as of this encounter
--- OUTSIDE RECORDS SUMMARY | 2025-08-09 14:53 | XMS_ITS | Encounter Summary ---
Author Organization [email or web address] Address [address] [place] [address] Care Team Providers Care Board Turner Name Role Phone Carolyn Ceballos SEARCH MANAGER Primary Care Provider Flor Tobar MD Primary Care Pro vider Reason for Visit * Reason Onset Date Comments fyi 01/26/2023 Encounter Details Date Type Department Care Team (Late st Contact Info) Description 01/26/2023 Telephone [facility] [address] [place] [phone] Carolyn Ceballos FNP fyi Social History Tobacco [...] 2:19 PM EDT Tc from marilee with [facility] stating pt will be discharge from services due to pt declining visits. Please contact marilee at [phone] documented in this encounter Plan of Treatment Upcoming Encounters Date Type Department Care Team (Late st Contact Info) Description 09/08/2025 2:00 PM EDT Clinical Support [address] [phone] 10/19/2025 1:15 PM EST Office Visit [address] [address] Flor Marie MD [address] [place] [address] [phone] documented as of this encounter Visit Diagnoses Not on filedocumented in this encounter Care Teams Board Turner Relationship Specialty Start Date End Date Carolyn Ceballos FNP PCP - General Family Medicine 07/02/22 05/17/23 Flor Marie MD [address] [place] [address] [phone] PCP - General Internal Medicine 05/18/23 [facility] 01/17/25 07/06/25 [facility] documented as of this encounter
--- OUTSIDE RECORDS SUMMARY | 2025-08-09 14:53 | XMS_ITS | Encounter Summary ---
Author Organization [employer] Address [address] [place] [address] 7 [place] [address] Care Team Providers Care Shirt Finisher Name Role Phone Carolyn Ceballos SOCIAL RESEARCH ASSISTANT Primary Care Provider Flor Tobar MD Primary Care Pro vider Encounter Details Date Type Department Care Team (Latest Contact Info) Description 08/17/2019 Abstract [facility] CONVERSIONS Dental, Provider, DDS Social History [...] Care Team ( st Contact Info) Description 09/08/2025 2:00 PM EDT Clinical Support [facility] [address] [place] [phone] 10/19/2025 1:15 PM EST Office Visit [address] [address] Flor Marie MD [address] [place] [phone] documented as of this encounter Visit Diagnoses Not on filedocumented in this encounter Care Teams Shirt Finisher Relationship Specialty Start Date End Date Carolyn Ceballos FNP PCP - General Family Medicine 07/02/22 05/17/23 Flor Marie MD [address] [place] [phone] PCP - General Internal Medicine 05/18/23 [facility] 01/17/25 07/06/25 [facility] 06/29/25 documented as of this encounter
--- OUTSIDE RECORDS SUMMARY | 2025-08-09 14:53 | XMS_ITS | Encounter Summary ---
Author Organization [employer] Address [address] [place] [address] [place] [address] Care Team Providers Care Plant Packer Name Role Phone Flor Marie MD Primary Care Pro vider Reason for Visit * Reason Onset Date Comments Hospital Follow-up 01/10/2025 Encounter Details Date Type Department Care Team ([facility] st Contact Info) Description 01/10/2025 Telephone [facility] [address] [place] [phone] Flor Marie MD [address] [place] [address] Hospital Follow-up Social History Tobacco Use Types [...] Miscellaneous Notes * Telephone Encounter - Adalberto Rik - 01/10/2025 2:14 PM EST Tc from pt requesting a HDF appt. Hospital: [facility] Date of admission: 12/23/2024 Discharge date: 12/28/2024 Diagnosed: Congestive Heart Failure and Heart Attack *Send message to Fowler Clinical Care Coordinators documented in this encounter Plan of Treatment Upcoming Encounters Date Type Department Care Team (Late st Contact Info) Description 09/08/2025 2:00 PM EDT Clinical Support [facility] [address] [place] [phone] 10/19/2025 1:15 PM EST Office Visit [facility] [address] [place] [address] Flor Marie MD [address] [place] [phone] documented as of this encounter Visit Diagnoses Not on filedocumented in this encounter Additional Health Concerns Assessment Noted Time PHQ-9 Depression Total Score: 19 023 2:14 PM EDT documented as of this encounter Care Teams Plant Packer Relationship Specialty Start Date End Date Flor Marie MD [address] [place] [phone] PCP - General Internal Medicine 05/18/23 [facility] 01/17/25 07/06/25 [facility] 06/29/25 documented as of this encounter
--- OUTSIDE RECORDS SUMMARY | 2025-08-09 14:53 | XMS_ITS | Encounter Summary ---
Author Organization [employer] Address [address] [place] [address] 7 [place] [address] Care Team Providers Care Compact Assembler Name Role Phone Flor Marie MD Primary Care Pro vider Reason for Visit * Reason Comments Med Refill Encounter Details Date Type Department Care Team ([facility] st Contact Info) Description 08/21/2023 Refill [facility] [address] [place] [address] Flor Marie MD [address] [place] [address] Social History Tobacco Use Types Packs/Day Years [...] Description 09/08/2025 2:00 PM EDT Clinical Support [facility] [address] [place] [phone] 10/19/2025 1:15 PM EST Office Visit [facility] [address] [place] [phone] Flor Marie MD [address] [place] [phone] documented as of this encounter Visit Diagnoses Not on filedocumented in this encounter Additional Health Concerns Assessment Noted Time PHQ-9 Depression Total Score: 19 023 2:14 PM EDT documented as of this encounter Care Teams Compact Assembler Relationship Specialty Start Date End Date Flor Marie MD [address] [place] [phone] PCP - General Internal Medicine 05/18/23 [facility] 01/17/25 07/06/25 [facility] 06/29/25 documented as of this encounter
--- OUTSIDE RECORDS SUMMARY | 2025-08-09 14:53 | XMS_ITS | Encounter Summary ---
Author Organization [employer] Address [address] [place] [address] Care Team Providers Care Cabinetmaker Apprentice Name Role Phone Carolyn Ceballos PLATE DRILLER Primary Care Provider Flor Tobar MD Primary Care Pro vider Reason for Visit * Reason Onset Date Comments FYI 01/12/2023 Encounter Details Date Type Department Care Team (Late st Contact Info) Description 01/12/2023 Telephone [facility] [address] [place] [phone] Carolyn Ceballos FNP FYI Social History Tobacco [...] If an questions pleaser contact Marguerite at [phone] documented in this encounter Plan of Treatment Upcoming Encounters Date Type Department Care Team (Late st Contact Info) Description 09/08/2025 2:00 PM EDT Clinical Support [address] [address] 10/19/2025 1:15 PM EST Office Visit [address] [address] Flor Marie MD [address] [place] [phone] documented as of this encounter Visit Diagnoses Not on filedocumented in this encounter Care Teams Cabinetmaker Apprentice Relationship Specialty Start Date End Date Carolyn Ceballos FNP PCP - General Family Medicine 07/02/22 05/17/23 Flor Marie MD [address] [place] [phone] PCP - General Internal Medicine 05/18/23 [facility] 01/17/25 07/06/25 [facility] documented as of this encounter
== END 2025-08-09 13:39 | disposition home or self-care (01) ==
LOC: HO.US 13:38
PROVIDERS: PCP Student in an Organized Health Care Education/Training Program; Visit Provider Student in an Organized Health Care Education/Training Program
DX: R60.0 Localized edema (principal)
CPT/HCPCS: 93970

== ENCOUNTER → 2025-08-09 13:40 | Outpatient (BNV) | payer OTHER, SELFPAY | PROVIDERS: PCP Student in an Organized Health Care Education/Training Program; Visit Provider Radiology Diagnostic Radiology | DX: M71.21 Synovial cyst of popliteal space [Baker], right knee (principal) | CPT/HCPCS: 93970 ==